=== PATIENT | male | born 1930 | race Caucasian/White ===

== ENCOUNTER 2018-01-21 14:00 | Inpatient (IN) | payer BC, OTHER ==
--- NOTE | 2018-01-21 14:22 | PDOC ---
History of Present Illness - General Stated Complaint: SOB Time Seen by Provider: 01/21/18 14:16 History Source: EMS, [facility] Records Exam Limitations: Clinical Condition - History of Present Illness Initial Comments: This is an 87 YOM with h/o traumatic fall down stairs (admitted to [facility] about a month ago and had neck/back surgery, tracheotomy placement 08/2017 now ventilator dependent, and PEG tube placement), recent aspiration PNA, A-fib, CHF , DM, renal failure, TBI, legally blind and deaf; who is BIBA from [facility] in [place] for blood with clots suctioned from his tracheostomy tube yesterday, as well as anemia detected on his lab work today. He was supposed to have been transported to [facility] for chcf management, but is stopping here at [facility] because of the anemia. Per conversation with attending Dr. Yadiel Gallegos at [facility], yesterday the patient was noted to have bloody secretions suctioned from tracheostomy site , so CBD was checked. His Hct was 24 yesterday, which was down ~10 points from his prior values. They re-checked it again today and Hct was 21. [facility] checked his urine and there was a small amount of blood in it (not enough to explain the Hct drop). Their primary concern has been for GI bleed and FOBT was ordered but had not resulted at the time the patient was sent here. Received his noon medications and simethicone and a portion of her noon PEG tube feeding (had to be stopped early for transport). Past History - Past Medical History Allergies/Adverse Reactions: Allergies Allergy/AdvReac Type Severity Reaction Status Date / Time No Known Allergies Allergy Verified 01/21/18 14:27 Home Medications: Ambulatory Orders Acetaminophen [Tylenol] 650 mg PO Q6H PRN 01/21/18 Aspirin Coated [Ecotrin -] 325 mg GT DAILY 01/21/18 Bacitracin - [Bacitracin Topical Ointment -] 1 applic TP TID 01/21/18 Baclofen 10 mg GT Q8H 01/21/18 Balsam Zabrina/[place] Oil [Venelex Ointment] 1 applic TP BID 01/21/18 Docusate Sodium [Colace -] 100 mg GT ASDIR 01/21/18 Ferrous Sulfate [Feosol] 300 mg GT DAILY 01/21/18 Furosemide [Lasix -] 40 mg GT DAILY 01/21/18 Glycopyrrolate/Formoterol Fum [Bevespi Aerosphere Inhaler] 0 gm IH BID 01/21/18 Heparin - 5,000 unit SQ BID 01/21/18 Hypromellose 0.5% Opth Soln [Artificial Tears] 2 drop OU BID 01/21/18 Insulin Glargine,Hum.rec.anlog [Lantus Solostar PEN (NF)] 9 units SQ HS Insulin Lispro [Humalog] 0 unit SQ Q6H 01/21/18 L.acidoph,Paracasei, B.lactis [Probiotic] 1 each GT DAILY 01/21/18 Lanolin/Mineral Oil [Eucerin Original Lotion] 1 applic TP Q6H 01/21/18 Levothyroxine Sodium [Synthroid] 37.5 mcg GT 01/21/18 Nut.tx.gluc.intoler,Lac-Fr,Soy [Glucerna 1.5 Bob] 237 ml GT Q6H 01/21/18 Oxybutynin Chloride 5 mg GT BID 01/21/18 Ranitidine [Zantac -] 150 mg GT DAILY 01/21/18 Sertraline HCl [Zoloft] 25 mg GT DAILY 01/21/18 Silver Sulfadiazine 1% Top Cr [Silvadene -] 1 applic TP DAILY 01/21/18 Simethicone 40 mg GT Q6H 01/21/18 Simvastatin 20 mg GT DAILY 01/21/18 Tamsulosin HCl 0.4 mg GT DAILY 01/21/18 Zinc Oxide 1 applic TP BID 01/21/18 Review of Systems - Review of Systems Able to Perform ROS?: No ([facility], deaf) *Physical Exam - Physical Exam General Appearance: Yes: Other (nonverbal, minimally interavtive, [facility] elderly male who is chronically ill-appearing) HEENT: positive: Hearing Grossly Normal. negative: Scleral Icterus (R), Scleral Icterus (L), Nasal Congestion Neck: positive: Trachea midline, Other (tracheostomy tube in place without e/o active bleeding). negative: Rigid Respiratory/Chest: positive: Respiratory Distress (intermittent mild respiratory distress), Accessory Muscle Use, Crackles. negative: Rhonchi, Stridor, Wheezing Cardiovascular: positive: Edema (2+ sacral), Bradycardia. negative: Murmur Gastrointestinal/Abdominal: positive: Soft, Other (PEG tube in place) Musculoskeletal: positive: Other (muscle atrophy BLE, ). negative: Decreased Range of Motion, Vertebral Tenderness Extremity: positive: Pelvis Stable, Swelling (sacral edema), Other (bilateral distal lower extremities in anti pressure ulcer boots, bilateral hand contractures). negative: Coldness, Cyanosis Integumentary: positive: Normal Color, Dry, Warm. negative: Erythema, Rash, Bruising Heart Score/ECG Review #1 Sinus bradycardia, rate of 54, normal axis and intervals, poor R wave progression. ED Treatment Course - LABORATORY CBC & Chemistry Diagram: 01/21/18 15:00 01/21/18 15:00 Medical Decision Making - Medical Decision Making 87 YOM with complex h/o traumatic fall down stairs, neck and back surgery, tracheostomy placement, p/w anemia and blood suctioned from trach. Initial Vital Signs Resp 15 01/21/18 14:15 CXR: Pulmonary vascular congestion c/w CHF. EKG: Sinus bradycardia, rate of 54, normal axis and intervals, poor R wave progression. Laboratory Tests 01/21/18 01/21/18 01/21/18 14:40 15:00 15:00 WBC 4.8 RBC 2.98 L Hgb 7.6 L Hct 24.0 L MCV 80.5 MCH 25.3 L MCHC 31.4 L RDW 21.2 H Plt Count 156 MPV 9.6 Neutrophils % 67.2 Lymphocytes % 25.3 Monocytes % 6.4 Eosinophils % 0.8 Basophils % 0.3 PT with INR 12.40 INR 1.10 PTT (Actin FS) 32.3 Sodium Potassium Chloride Carbon Dioxide Anion Gap BUN Creatinine Creat Clearance w eGFR POC Glucometer Random Glucose Calcium Total Bilirubin AST ALT Alkaline Phosphatase Creatine Kinase Troponin I Total Protein Albumin Stool Occult Blood Negative Blood Type Antibody Screen Crossmatch 01/21/18 01/21/18 01/21/18 15:00 15:00 15:46 WBC RBC Hgb Hct MCV MCH MCHC RDW Plt Count MPV Neutrophils % Lymphocytes % Monocytes % Eosinophils % Basophils % PT with INR INR PTT (Actin FS) Sodium 140 Potassium 4.0 Chloride 102 Carbon Dioxide 33 H Anion Gap 5 L BUN 79 H Creatinine 1.7 H Creat Clearance w eGFR 38.50 POC Glucometer [phone] Random Glucose 115 H Calcium 7.7 L Total Bilirubin 0.4 AST 29 ALT 35 Alkaline Phosphatase 99 Creatine Kinase 59 Troponin I < 0.02 Total Protein 6.3 L Albumin 2.1 L Stool Occult Blood Blood Type O POSITIVE Antibody Screen Negative Crossmatch See Detail 01/21/18 16:39 WBC RBC Hgb Hct MCV MCH MCHC RDW Plt Count MPV Neutrophils % Lymphocytes % Monocytes % Eosinophils % Basophils % PT with INR INR PTT (Actin FS) Sodium Potassium Chloride Carbon Dioxide Anion Gap BUN Creatinine Creat Clearance w eGFR POC Glucometer Random Glucose Calcium Total Bilirubin AST ALT Alkaline Phosphatase Creatine Kinase Troponin I Total Protein Albumin Stool Occult Blood Blood Type O POSITIVE Antibody Screen Crossmatch Vital Signs Temperature 98.6 F 01/21/18 17:28 Pulse Rate 60 01/21/18 17:28 Respiratory Rate 19 01/21/18 17:28 Blood Pressure 144/76 01/21/18 17:28 O2 Sat by Pulse Oximetry (%) 100 01/21/18 17:28 01/21/18 17:[address] Harper who accepts patient for ICU placement. Dr. Harper requests CT soft tissue neck and chest (no contrast as patient's Cr is 1.7). Dr. Braun spoke with Gladys Araiza; patient admitted to Dr. Parker for placement in ICU. Spoke with Dr. Vuong who will see the patient tomorrow in the ICU. *DC/Admit/Observation/Transfer Diagnosis at time of Disposition: Hemoptysis - Discharge Dispostion Condition at time of disposition: Guarded Decision to Admit order: Yes - Referrals - Patient Instructions - Post Discharge Activity
[2018-01-21 15:24] LABS: INR 1.1 (0.82-1.09); PROTHROMBIN TIME (PATIENT) 12.4 SEC (9.7-13.0)
[2018-01-21 15:27] LABS: ACTIVATED PTT 32.3 SECONDS (26.9-34.4)
[2018-01-21 15:51] LABS: ALBUMIN 2.1 g/dl (3.4-5.0); ANION GAP 5 (8-16); BILIRUBIN,TOTAL 0.4 mg/dL (0.2-1.0); BLOOD UREA NITROGEN 79 mg/dL (7-18); CALCIUM 7.7 mg/dL (8.5-10.1); CHLORIDE 102 mmol/L (98-107); CO2 33 mmol/L (21-32); CREATININE 1.7 mg/dL (0.7-1.3); GLUCOSE,RANDOM 115 mg/dL (74-106); SGOT/AST 29 U/L (15-37); SGPT/ALT 35 U/L (12-78); SODIUM 140 mmol/L (136-145); TOT PROT 6.3 g/dl (6.4-8.2)
[2018-01-21 15:53] LABS: ALK PHOS 99 U/L (45-117)
[2018-01-21 16:01] LABS: BASO % 0.3 % (0-2.0); EOS % 0.8 % (0-4.5); HEMOGLOBIN 7.6 GM/dL (11.7-16.9); LYMPH % 25.3 % (8-40); MCH 25.3 pg (25.7-33.7); MCHC 31.4 g/dl (32.0-35.9); MEAN CELL VOLUME 80.5 fl (80-96); MEAN PLT VOLUME 9.6 fl (7.5-11.1); MONO % 6.4 % (3.8-10.2); NEUT % 67.2 % (42.8-82.8); PLATELET COUNT 156 K/MM3 (134-434); RBC 2.98 M/mm3 (4.00-5.60); RDW 21.2 % (11.9-15.9); WHITE BLOOD COUNT 4.8 K/mm3 (4.0-10.0)
--- NOTE | 2018-01-21 16:57 | PDOC ---
Attending Attestation - Resident Resident Name: Zoila Rowe - ED Attending Attestation I have performed the following: I have examined & evaluated the patient, The case was reviewed & discussed with the resident, I agree w/resident's findings & plan, Exceptions are as noted - HPI HPI: 01/21/18 16:52 The patient is a 87 year old male, legally blind and deaf, with a significant past medical history of AFib, recent fall last year with neck and back fractures , Tracheostomy tube placement (with ventilator dependence), who presents to the emergency department BIBA from [facility] for hemoptysis and anemia. Pt's daughter states that over the past few days, when the trach has been suctioned, clots of blood have been evacuated. They have not visualized any significant blood coming directly from the trach. - Physicial Exam PE: 01/21/18 16:57 "GENERAL: awake, nonverbal HEAD: No signs of trauma EYES: PERRLA, EOMI, sclera anicteric, conjunctiva clear ENT: Auricles normal inspection, hearing grossly normal, nares patent, oropharynx clear without exudates. Moist mucosa NECK: trach in place, no evidence of bleed LUNGS: Breath sounds equal, clear to auscultation bilaterally. No wheezes, and no crackles HEART: Regular rate and rhythm, normal S1 and S2, no murmurs, rubs or gallops ABDOMEN: Soft, nontender, normoactive bowel sounds. No guarding, no rebound. No masses EXTREMITIES: Normal range of motion, no edema. No clubbing or cyanosis. No cords, erythema, or tenderness NEUROLOGICAL: Cranial nerves II through XII intact. SKIN: Warm, Dry, normal turgor, no rashes or lesions noted. " - Medical Decision Making 01/21/18 16:59 87 M with hemoptysis and anemia. Will need to evaluate for tracheoinnominate fistula. Possible pulmonary edema as pt has h/o CHF. Will also r/o infectious process. - Labs - CXR, CTA if indicated - ENT consult - Transfuse PRN - Admit ICU
--- NOTE | 2018-01-21 17:39 | PN ---
Teaching Attending Note ATTENDING PHYSICIAN STATEMENT I saw and evaluated the patient. I reviewed the resident's note and discussed the case with the resident. I agree with the resident's findings and plan as documented. SUBJECTIVE: Pt seen and examined in the ER. 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 Reports filled cannister yesterday with clots. Pt unable to provide further history at this time, daughter at bedside. CXR suggestive of CHF. Trach placed in Aug at [facility] , no reported complications since placement. Was at [facility] for weaning but ultimately unweanable and was being transferred to SNF. OBJECTIVE: Last Vital Signs Temp Pulse Resp BP Pulse Ox 98.6 F 60 19 144/76 100 01/21/18 17:28 01/21/18 17:28 01/21/18 17:28 01/21/18 17:28 01/21/18 17:28 Intake & Output 01/18/18 01/19/18 01/20/18 01/21/18 23:59 23:59 23:59 23:59 Weight 81.647 kg Gen: trached, poorly responsive Heart: RRR Lung: scattered rhonchi Abd: soft, nontender Ext: UE edema CBC, BMP 01/21/18 15:00 01/21/18 15:00 INR, PTT INR 1.10 (0.82-1.09) 01/21/18 15:00 ASSESSMENT AND PLAN: Chronic Respiratory Failure Hemoptysis Acute Blood Loss Anemia Acute Kidney Injury Atrial Fibrillation DM CHF h/o Traumatic Brain Injury - tracheal suctioned multiple times without heme, trach site appears clean - monitor/quantify hemoptysis - monitor H/H - transfuse as needed - CT chest/neck to further investigate source of bleed - echocardiogram - will likely need lasix - monitor urine output, creatinine - O2 to keep SpO2 >90% - continue volume assist control - DVT/GI prophylaxis - monitor in ICU overnight DM, CKD, CHF, atrial fibrillation, traumatic brain injur
--- NOTE | 2018-01-21 18:24 | HP ---
Admitting History and Physical - Admission History of Present Illness: HPI: This is an 87 year old male with pmhx of traumatic fall down stairs 08/[address] [facility], had neck/back surgery there, with hospital complications of a fib and acute anemia blood loss, aspiration pna unable to wean pt is s/p tach placement in 08/2017 and vent dependent with no plans to move forward at this time for 2nd part of back surgery. Mr. Corcoran has pmhx of RUE DVT, aspiration pna, A fib, CHF, DM II, TBI, legally blind and deaf and was brought to the ED from [facility] in [facility] for blood clots from tracheostomy site and suction. Additionally, urine was noted to be dark per daughter at bedside and he was noted to be anemic. ED - Stool occult negative - Hct down from 24 to 21, ~ 10 points lower than baseline per Dr. 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) Cardiovascular: Yes: AFIB, CHF Pulmonary: Yes: Other (s/p Tach, vent dependent) Heme/Onc: Yes: Other (RUE DVT) Endocrine: Yes: Diabetes Mellitus - Smoking History Smoking history: Unknown if ever smoked Have you smoked in the past 12 months: No - Alcohol/Substance Use Hx Alcohol Use: No Home Medications - Allergies Allergies/Adverse Reactions: Allergies Allergy/AdvReac Type Severity Reaction Status Date / Time No Known Allergies Allergy Verified 01/21/18 14:27 - Home Medications Home Medications: Ambulatory Orders Acetaminophen [Tylenol] 650 mg PO Q6H PRN 01/21/18 Aspirin Coated [Ecotrin -] 325 mg GT DAILY 01/21/18 Bacitracin - [Bacitracin Topical Ointment -] 1 applic TP TID 01/21/18 Baclofen 10 mg GT Q8H 01/21/18 Balsam Zabrina/[place] Oil [Venelex Ointment] 1 applic TP BID 01/21/18 Docusate Sodium [Colace -] 100 mg GT ASDIR 01/21/18 Ferrous Sulfate [Feosol] 300 mg GT DAILY 01/21/18 Furosemide [Lasix -] 40 mg GT DAILY 01/21/18 Glycopyrrolate/Formoterol Fum [Bevespi Aerosphere Inhaler] 0 gm IH BID 01/21/18 Heparin - 5,000 unit SQ BID 01/21/18 Hypromellose 0.5% Opth Soln [Artificial Tears] 2 drop OU BID 01/21/18 Insulin Glargine,Hum.rec.anlog [Lantus Solostar PEN (NF)] 9 units SQ HS Insulin Lispro [Humalog] 0 unit SQ Q6H 01/21/18 L.acidoph,Paracasei, B.lactis [Probiotic] 1 each GT DAILY 01/21/18 Lanolin/Mineral Oil [Eucerin Original Lotion] 1 applic TP Q6H 01/21/18 Levothyroxine Sodium [Synthroid] 37.5 mcg GT BID 01/21/18 Nut.tx.gluc.intoler,Lac-Fr,Soy [Glucerna 1.5 Bob] 237 ml GT Q6H 01/21/18 Oxybutynin Chloride 5 mg GT BID 01/21/18 Ranitidine [Zantac -] 150 mg GT DAILY 01/21/18 Sertraline HCl [Zoloft] 25 mg GT DAILY 01/21/18 Silver Sulfadiazine 1% Top Cr [Silvadene -] 1 applic TP DAILY 01/21/18 Simethicone 40 mg GT Q6H 01/21/18 Simvastatin 20 mg GT DAILY 01/21/18 Tamsulosin HCl 0.4 mg GT DAILY 01/21/18 Zinc Oxide 1 applic TP BID 01/21/18 Review of Systems Unable to obtain ROS, reason: SEE HPI Physical Examination Vital Signs: Vital Signs Temperature 98.6 F 01/21/18 17:28 Pulse Rate 60 01/21/18 17:28 Respiratory Rate 19 01/21/18 17:28 Blood Pressure 144/76 01/21/18 17:28 O2 Sat by Pulse Oximetry (%) 100 01/21/18 17:28 Constitutional: Yes: Other Eyes: Yes: Conjunctiva Clear HENT: Yes: Other (no bleeding at trach site) Neck: Yes: Other (trach) Cardiovascular: Yes: Bradycardia, S1, S2 Respiratory: Yes: Regular, Diminished, Mechanically Ventilated (with trach), Other Gastrointestinal: Yes: Normal Bowel Sounds, Soft, Other (peg tube) Renal/: Yes: Childs Present Edema: No Edema: RUE: 3+ Neurological: Yes: Pre-Existing Deficit, Other (withdraws to pain/tactile stimuli) Labs: CBC, BMP 01/21/18 15:00 01/21/18 15:00 Imaging - Results X-ray: Report Reviewed Problem List - Problems (1) CHF (congestive heart failure) Code(s): I50.9 - HEART FAILURE, UNSPECIFIED (2) A-fib Code(s): I48.91 - UNSPECIFIED ATRIAL FIBRILLATION (3) TBI (traumatic brain injury) Code(s): S06.9X9A - UNSP INTRACRANIAL INJURY W LOC OF UNSP DURATION, INIT (4) Tracheostomy dependent Code(s): Z93.0 - TRACHEOSTOMY STATUS (5) Childs catheter in place Code(s): Z92.89 - PERSONAL HISTORY OF OTHER MEDICAL TREATMENT (6) Diabetes Code(s): E11.9 - TYPE 2 DIABETES MELLITUS WITHOUT COMPLICATIONS (7) S/P percutaneous endoscopic gastrostomy (PEG) tube placement Code(s): Z93.1 - GASTROSTOMY STATUS (8) Hemoptysis Code(s): R04.2 - HEMOPTYSIS (9) Chronic respiratory failure Code(s): J96.10 - CHRONIC RESPIRATORY FAILURE, UNSP W HYPOXIA OR HYPERCAPNIA (10) Hypothyroid Code(s): E03.9 - HYPOTHYROIDISM, UNSPECIFIED Assessment/Plan Assessment: 87 year old male admitted with 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 Plan: 1. Acute anemia blood loss - Transfuse 1uprbc, 2ordered in ED, if receives 2nd unit give additional 20mg IV lasix - Monitor resp status, CXR w chf, give lasix after 1st unit 2. Hemoptysis - D/w ENT site looks intact and clean, no overt bleeding issues, bleeding thought to be from ? pulmonary source - Monitor site for additional bloody suction content - Check CT chest 3. Chronic Resp failure - Spo2 goal >92% - Pulm/CCC seeing pt, consult appreciated - ICU monitoring overnight 4. KATERIN on CKD - Hold fluids for now - Give x1 dose 40mg lasix after blood transfusion - Trend BMP 5. Acute CHF - Check ECHO, BNP - Dose lasix daily per renal function, baseline unknown, usual daily dose 40mg PO - On no bb 6. Afib, rate controlled - On no AC nor rate controlled meds - Monitor tele 7. DM II - ISS, BGM ACHS - Resume home insulin regimen once restart TF 8. s/p TBI - PEG tube feedings per RD, keep NPO for now 9. Hx of RUE DVT - Hold chemical ac until bleeding resolved, scds 10. Hypothyroid - Cont synthroid Visit type - Emergency Visit Emergency Visit: Yes Care time: The patient presented to the Emergency Department on the above date and was hospitalized for further evaluation of their emergent condition. - New Patient This patient is new to me today: Yes Date on this admission: 01/21/18 - Critical Care Critical Care patient: Yes Total Critical Care Time (in minutes): 35 Critical Care Statement: The care of this patient involved high complexity decision making to prevent further life threatening deterioration of the patient 's condition and/or to evaluate & treat vital organ system(s) failure or risk of failure. Hospitalist Screening - Colonoscopy Questionnaire Colonoscopy Questionnaire: Colonoscopy Questionnaire - Patient: 50 - 75 years old and never had a screening colonoscopy: Unknown History of colon or rectal polyps, or CA: Unknown History of IBD, Crohn's disease or UC: Unknown History of abdominal radiation therapy as a child: Unknown - Relative: 1 with colon or rectal CA, or polyps at age 60 or younger: Unknown Colon or rectal CA diagnosed at age 45 or younger: Unknown Multiple relatives with colon or rectal CA: Unknown - Outcome: Screening Result: Negative Screen
[2018-01-21] MEDS ORDERED: FUROSEMIDE 40 MG/4 ML INJECTABLE VIAL IVPUSH ONE (19:15)
[2018-01-21 19:26] LABS: URINE APPEARANCE CLOUDY; URINE BILIRUBIN NEGATIVE (<2.0 mg/dL); URINE BLOOD 1+ (NEGATIVE); URINE COLOR YELLOW; URINE GLUCOSE (UA) NEGATIVE (NEGATIVE); URINE KETONE NEGATIVE (NEGATIVE); URINE NITRITE NEGATIVE (NEGATIVE); URINE UROBILINOGEN NEGATIVE mg/dL (0.2-1.0)
[2018-01-21] MEDS ORDERED: FUROSEMIDE 40 MG/4 ML INJECTABLE VIAL ONE (19:27)
[2018-01-21] MEDS ORDERED: BACLOFEN 10 MG TABLET (FP) ONE (19:27)
[2018-01-21 19:39] LABS: URINE LEUK ESTERASE 3+ (NEGATIVE); URINE PROTEIN 3+ (NEGATIVE)
[2018-01-21] MEDS: BACLOFEN 10 MG TABLET (FP) GT SCH (19:40)
[2018-01-21 19:43] LABS: TRIPLE PHOSPHATE CRYSTAL MANY /hpf (NONE SEEN)
--- NOTE | 2018-01-21 19:45 | CONSULT ---
Consultation: ICU Consult HPI: 87yo M with 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 He was brought into ER for hemoptysis and anemia. Hx was taken from chart. While the rehab center was suctioning his trach site, they noted bright red clots. Daughter reports the cannister was filled with clots. At that time noted to be anemic. No other sources of bleeding besides dark urine In the ER, the patient was stable, maintaining saturations. FOBT neg. UA shows 1 + blood w/ some RBC. Dr Harper attempted to suction but did not see blood. CXR shows bilateral congestion. CT scan ordered to r/o tracheo-innominate fistula. PMHx: Traumatic fall down stairs Tracheotomy placement 08/2017 PEG tube placement Aspiration PNA A-fib CHF DM Renal failure TBI Legally blind and deaf ROS: Unable to obtain PE: Vital Signs Period Temp Pulse Resp BP Sys/Wills Pulse Ox Last 24 Hr 98.3 F-98.8 F 55-60 14-19 130-154/60-76 95-100 GEN: Eyes closed, contracted, does not appear ill HEENT: PERRLA, periorbital edema, difficult to assess JVD due to positioning CV: S1, S2, regular rhythm w/ ectopic beats LUNG: Difficult to assess, Active Medications Baclofen (Lioresal -) 10 mg GT TID [facility] Last Admin: 01/21/18 19:40 Dose: 10 mg Chlorhexidine Gluconate (Hibiclens For Decolonization -) 1 applic TP HS [facility] Insulin Aspart (Novolog Vial Sliding Scale -) 1 vial SQ ACHS [facility] PRN Reason: Protocol Levothyroxine Sodium (Synthroid -) 25 mcg PEG DAILY@0700 [facility] Levothyroxine Sodium (Synthroid -) 12.5 mcg PEG DAILY@0700 [facility] Mupirocin (Bactroban Ointment (For Decolonization) -) 1 applic NS BID [facility] Stop: 01/26/18 21:59 Oxybutynin Chloride (Ditropan -) 5 mg NGT BID [facility] Pantoprazole Sodium (Protonix Iv) 40 mg IVPUSH DAILY [facility] Sertraline HCl (Zoloft -) 25 mg NR DAILY [facility] Tamsulosin HCl (Flomax -) 0.4 mg NR DAILY [facility] ASSESSMENT/PLAN: 87yo M with 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 He was found to have bright red bloody secretions suctioned from tracheostomy site. # Hemoptysis -- BRB from tracheostomy site. ENT evaluated, states site looks c/d/i. Coags and PLT are wnl. No tracheo-innominate fistula per CT scan. Could be from pulmonary edema from CHF exacerbation. Protonix daily incase of possible GIB # Acute blood loss anemia -- Transfused 1uPRBC. Obtain stat CBC to check if need another unit. Monitor congestion. # Acute CHF Exacerbation -- S/p Lasix 40IV. Will start Lasix 40 IV BID. Echo. Not on beta andrew. Childs. I&O. Daily weights. CXR # S/p Tracheostomy -- Vent dependent. At rehab center, he was determined to be unweanable and will ultimately be transferred to SNF. # Afib -- Rate controlled w/o meds. Tele monitoring # CKD -- Unsure baseline. Monitor tmrw # DM2 -- ISS and BGM achs # Hypothyroidism -- Continue synthroid # FEN/Ppx -- No fluids, NPO, SCD # Dispo -- Continue ICU, monitor bleed. H/H Kenton Garza MD - pGY1 ICU Evening Resident Visit type - Emergency Visit Emergency Visit: Yes ED Registration Date: 01/21/18 Care time: The patient presented to the Emergency Department on the above date and was hospitalized for further evaluation of their emergent condition. - New Patient This patient is new to me today: Yes Date on this admission: 01/21/18 - Critical Care Critical Care patient: Yes Total Critical Care Time (in minutes): 45 Critical Care Statement: The care of this patient involved high complexity decision making to prevent further life threatening deterioration of the patient 's condition and/or to evaluate & treat vital organ system(s) failure or risk of failure.
[2018-01-21] MEDS ORDERED: CHLORHEXIDINE GLUCONATE 4% CLEANSER FOR DECOLONIZATION TP SCH (22:00)
[2018-01-21] MEDS ORDERED: LEVOTHYROXINE NA 88 MCG TABLET (FP) GT SCH (22:00)
[2018-01-21 23:20] LABS: HEMOGLOBIN 8.9 GM/dL (11.7-16.9); MCHC 31.8 g/dl (32.0-35.9); MEAN CELL VOLUME 81.8 fl (80-96); MEAN PLT VOLUME 9.3 fl (7.5-11.1); PLATELET COUNT 158 K/MM3 (134-434); RBC 3.42 M/mm3 (4.00-5.60); RDW 21.4 % (11.9-15.9); WHITE BLOOD COUNT 5.4 K/mm3 (4.0-10.0)
[2018-01-21] MEDS: OXYBUTYNIN CHLORIDE 5 MG TABLET NGT SCH (23:30)
[2018-01-21] MEDS: MUPIROCIN 2% TOPICAL OINTMENT FOR DECOLONIZATION NS SCH (23:30)
[2018-01-21] MEDS: INSULIN SLIDING SCALE (NOVOLOG) 1 VIAL SQ SCH (23:45)
[2018-01-22] MEDS: FUROSEMIDE 40 MG/4 ML INJECTABLE VIAL IVPUSH SCH ×2 (06:24→13:18)
[2018-01-22] MEDS: INSULIN SLIDING SCALE (NOVOLOG) 1 VIAL SQ SCH ×4 (06:26→22:11)
[2018-01-22 06:33] LABS: BASO % 0.5 % (0-2.0); EOS % 0.4 % (0-4.5); HEMATOCRIT 25.4 % (35.4-49); HEMOGLOBIN 8.4 GM/dL (11.7-16.9); LYMPH % 23.4 % (8-40); MCH 26.8 pg (25.7-33.7); MEAN CELL VOLUME 81.3 fl (80-96); MEAN PLT VOLUME 9.7 fl (7.5-11.1); MONO % 7.8 % (3.8-10.2); NEUT % 67.9 % (42.8-82.8); PLATELET COUNT 147 K/MM3 (134-434); RBC 3.12 M/mm3 (4.00-5.60); WHITE BLOOD COUNT 4.6 K/mm3 (4.0-10.0)
[2018-01-22] MEDS ORDERED: LEVOTHYROXINE NA 25 MCG TABLET (FP) PEG SCH ×2 (07:00)
[2018-01-22 07:11] LABS: ANION GAP 5 (8-16); BLOOD UREA NITROGEN 78 mg/dL (7-18); CHLORIDE 104 mmol/L (98-107); CO2 33 mmol/L (21-32); POTASSIUM 3.7 mmol/L (3.5-5.1); SODIUM 142 mmol/L (136-145)
[2018-01-22 07:18] LABS: ALK PHOS 76 U/L (45-117); BILIRUBIN,TOTAL 0.6 mg/dL (0.2-1.0); CALCIUM 7.7 mg/dL (8.5-10.1); CREATININE 1.7 mg/dL (0.7-1.3); GLUCOSE,RANDOM 125 mg/dL (74-106); MAGNESIUM 2.3 mg/dL (1.8-2.4); PHOSPHOROUS 4.8 mg/dL (2.5-4.9); SGOT/AST 23 U/L (15-37); SGPT/ALT 28 U/L (12-78); TOT PROT 6.2 g/dl (6.4-8.2)
--- NOTE | 2018-01-22 07:47 | CON.ENT ---
Consult Consult Specialty:: ENT Reason for Consultation:: Blood in trach secretions - History of Present Illness Chief Complaint: Blood in trach secretions History of Present Illness: As per chart, this is an 87 year old male with pmhx of traumatic fall down stairs 08/2017 was taken to [facility], had neck/back surgery there, with hospital complications of a fib and acute anemia blood loss, aspiration pna unable to wean pt is s/p tach placement in 08/2017 and vent dependent with no plans to move forward at this time for 2nd part of back surgery. Mr. Corcoran has pmhx of RUE DVT, aspiration pna, A fib, CHF, DM II, TBI, legally blind and deaf and was brought to the ED from [facility] in [facility] for blood clots from tracheostomy site and suction. Additionally, urine was noted to be dark per daughter at bedside and he was noted to be anemic. I spoke with his daughter and she has not seen any bleeding from mouth or nose. - History Source History Provided By: Medical Record, Caregiver - Past Medical History [employer]: Yes: Other (TBI) Cardio/Vascular: Yes: AFIB, CHF Pulmonary: Yes: Other (s/p Tach, vent dependent) Endocrine: Yes: Diabetes Mellitus - Alcohol/Substance Use Hx Alcohol Use: No - Smoking History Smoking history: Unknown if ever smoked Have you smoked in the past 12 months: No Home Medications - Allergies Allergies/Adverse Reactions: Allergies Allergy/AdvReac Type Severity Reaction Status Date / Time No Known Allergies Allergy Verified 01/21/18 14:27 - Home Medications Home Medications: Ambulatory Orders Acetaminophen [Tylenol] 650 mg PO Q6H PRN 01/21/18 Aspirin Coated [Ecotrin -] 325 mg GT DAILY 01/21/18 Bacitracin - [Bacitracin Topical Ointment -] 1 applic TP TID 01/21/18 Baclofen 10 mg GT Q8H 01/21/18 Balsam [place]/V[place]y Oil [Venelex Ointment] 1 applic TP BID 01/21/18 Docusate Sodium [Colace -] 100 mg GT ASDIR 01/21/18 Ferrous Sulfate [Feosol] 300 mg GT DAILY 01/21/18 Furosemide [Lasix -] 40 mg GT DAILY 01/21/18 Glycopyrrolate/Formoterol Fum [Bevespi Aerosphere Inhaler] 0 gm IH BID 01/21/18 Heparin - 5,000 unit SQ BID 01/21/18 Hypromellose 0.5% Opth Soln [Artificial Tears] 2 drop OU BID 01/21/18 Insulin Glargine,Hum.rec.anlog [Lantus Solostar PEN (NF)] 9 units SQ HS Insulin Lispro [Humalog] 0 unit SQ Q6H 01/21/18 L.acidoph,Paracasei, B.lactis [Probiotic] 1 each GT DAILY 01/21/18 Lanolin/Mineral Oil [Eucerin Original Lotion] 1 applic TP Q6H 01/21/18 Levothyroxine Sodium [Synthroid] 37.5 mcg GT BID 01/21/18 Nut.tx.gluc.intoler,Lac-Fr,Soy [Glucerna 1.5 Bob] 237 ml GT Q6H 01/21/18 Oxybutynin Chloride 5 mg GT BID 01/21/18 Ranitidine [Zantac -] 150 mg GT DAILY 01/21/18 Sertraline HCl [Zoloft] 25 mg GT DAILY 01/21/18 Silver Sulfadiazine 1% Top Cr [Silvadene -] 1 applic TP DAILY 01/21/18 Simethicone 40 mg GT Q6H 01/21/18 Simvastatin 20 mg GT DAILY 01/21/18 Tamsulosin HCl 0.4 mg GT DAILY 01/21/18 Zinc Oxide 1 applic TP BID 01/21/18 Physical Exam-ENT Vital Signs: Vital Signs Temperature 98.5 F 01/21/18 23:25 Pulse Rate 44 L 01/22/18 04:00 Respiratory Rate 14 01/22/18 06:45 Blood Pressure 129/65 01/22/18 04:00 O2 Sat by Pulse Oximetry (%) 97 01/22/18 01:46 Constitutional: Yes: Other (ON vent via trach, responsive to voice, uncooperative with oral exam partially) Nose: Yes: WNL Nasal Passage: Yes: WNL Oral/Pharynx: Yes: WNL Outer Ear: Yes: WNL Neck: Yes: Other (Trach site without blood or lesion.) Problem List - Problems (1) Hemoptysis Assessment/Plan: Bleeding not apparently from trach site, trachea nor main stem bronchi. Will follow prn Code(s): R04.2 - HEMOPTYSIS Procedure - Procedure and Findings -: Tracheoscopy via trach tube in place to main stem bronchi reveal no lesions, normal colored mucosa, no blood, nor blood clots. Essentially normal exam.
[2018-01-22] MEDS ORDERED: SERTRALINE HCL 25 MG TABLET (FP) NR SCH (10:00)
[2018-01-22] MEDS ORDERED: TAMSULOSIN HCL 0.4 MG CAP.ER.24H (FP) NR SCH (10:00)
[2018-01-22] MEDS ORDERED: PANTOPRAZOLE SODIUM 40 MG VIAL IVPUSH SCH (10:00)
--- NOTE | 2018-01-22 10:00 | PN ---
Physical Exam: SUBJECTIVE: Patient seen and examined in ICU. No acute distress noted, non verbal. OBJECTIVE: Vital Signs Period Temp Pulse Resp BP Sys/Wills Pulse Ox Last 24 Hr 98.3 F-98.8 F 40-97 12-19 128-178/45-77 95-100 PE Neuro: arousable to pain, tactile stimuli Pulm: Tach, MV, scattered rhonchi CV: s1 s2 bradycardia Abd: + peg tube, abd firm : + christopher Ext: warm, no le edema Laboratory Results - last 24 hr 01/21/18 01/21/18 01/22/18 21:54 23:10 05:45 WBC 5.4 4.6 RBC 3.42 L 3.12 L Hgb 8.9 L D 8.4 L Hct 28.0 L D 25.4 L MCV 81.8 81.3 MCH 26.0 26.8 MCHC 31.8 L 33.0 RDW 21.4 H 21.0 H Plt Count 158 147 MPV 9.3 9.7 Neutrophils % 67.9 Lymphocytes % 23.4 Monocytes % 7.8 Eosinophils % 0.4 Basophils % 0.5 PT with INR INR PTT (Actin FS) Sodium Potassium Chloride Carbon Dioxide Anion Gap BUN Creatinine Creat Clearance w eGFR POC Glucometer [phone] Random Glucose Calcium Phosphorus Magnesium Total Bilirubin AST ALT Alkaline Phosphatase Creatine Kinase Troponin I B-Natriuretic Peptide Total Protein Albumin Urine Color Urine Appearance Urine pH Ur Specific [place] Urine Protein Urine Glucose (UA) Urine Ketones Urine Blood Urine Nitrite Urine Bilirubin Urine Urobilinogen Ur Leukocyte Esterase Urine WBC (Auto) Urine RBC (Auto) Triple Phos Crystals Stool Occult Blood Blood Type Antibody Screen Crossmatch 01/22/18 05:45 WBC RBC Hgb Hct MCV MCH MCHC RDW Plt Count MPV Neutrophils % Lymphocytes % Monocytes % Eosinophils % Basophils % PT with INR INR PTT (Actin FS) Sodium 142 Potassium 3.7 Chloride 104 Carbon Dioxide 33 H Anion Gap 5 L BUN 78 H Creatinine 1.7 H Creat Clearance w eGFR 38.50 POC Glucometer Random Glucose 125 H Calcium 7.7 L Phosphorus 4.8 Magnesium 2.3 Total Bilirubin 0.6 D AST 23 D ALT 28 Alkaline Phosphatase 76 D Creatine Kinase Troponin I B-Natriuretic Peptide Total Protein 6.2 L Albumin 2.0 L Urine Color Urine Appearance Urine pH Ur Specific [place] Urine Protein Urine Glucose (UA) Urine Ketones Urine Blood Urine Nitrite Urine Bilirubin Urine Urobilinogen Ur Leukocyte Esterase Urine WBC (Auto) Urine RBC (Auto) Triple Phos Crystals Stool Occult Blood Blood Type Antibody Screen Crossmatch Active Medications Generic Name Dose Route Start Last Admin Trade Name Jose PRN Reason Stop Dose Admin Baclofen 10 mg 01/21/18 19:15 01/21/18 19:40 Lioresal - GT 10 mg TID LILIA Administration Chlorhexidine Gluconate 1 applic 01/21/18 22:00 01/21/18 23:30 Hibiclens For Decolonization - TP 1 applic HS LILIA Administration Furosemide 40 mg 01/22/18 06:00 01/22/18 06:24 Lasix Injection - IVPUSH 40 mg BIDLASIX LILIA Administration Insulin Aspart 1 vial 01/21/18 22:00 01/22/18 06:26 Novolog Vial Sliding Scale - SQ 2 units ACHS LILIA Administration Protocol Levothyroxine Sodium 25 mcg 01/22/18 07:00 01/22/18 06:23 Synthroid - PEG 25 mcg DAILY@0700 LILIA Administration Levothyroxine Sodium 12.5 mcg 01/22/18 07:00 Synthroid - PEG DAILY@0700 LILIA Mupirocin 1 applic 01/21/18 22:00 01/21/18 23:30 Bactroban Ointment (For Decolonization) - NS 01/26/18 21:59 1 applic BID LILIA Administration Oxybutynin Chloride 5 mg 01/21/18 22:00 01/21/18 23:30 Ditropan - NGT 5 mg BID LILIA Administration Pantoprazole Sodium 40 mg 01/22/18 10:00 Protonix Iv IVPUSH DAILY LILIA Sertraline HCl 25 mg 01/22/18 10:00 Zoloft - NR DAILY LILIA Tamsulosin HCl 0.4 mg 01/22/18 10:00 Flomax - NR DAILY LILIA Assessment: 87 year old male admitted with 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 Plan: 1. Acute anemia blood loss - Transfused 1uprbc with appropriate rise 01/21 - Check iron studies 36hr post transfusion 2. Hemoptysis - ENT eval, no acute intervention/trach change needed, site clean, trach wnl - No further hemoptysis noted per suction 3. Bradycardia - Possible d/t autonomic dysfunction - ECHO ordered - TSH pending - D/w Dr. Sorto 4. UTI - Obtain urine cx - Start ceftriaxone (day 1) 5. Chronic Resp failure - Spo2 goal >92% - Maintain vent settings 6. KATERIN on CKD - Cr unchanged - Continue diuresis, monitor renal fxn 7. Acute CHF - ECHO ordered - Lasix 40mg BID - Trend daily weights 8. Afib, rate controlled - Sinus ethel, see above 9. DM II - ISS, BGM ACHS - Resume home insulin regimen once restart TF 10. s/p TBI - PEG tube feedings per RD 11. Hx of RUE DVT - Hold chemical ac until bleeding resolved, scds 12. Hypothyroid - Cont synthroid - TSH pending 13. Hypocalcemia - Corrected 9 14. Urine retention - Flomax, Ditropan Problem List - Problems (1) CHF (congestive heart failure) Code(s): I50.9 - HEART FAILURE, UNSPECIFIED (2) A-fib Code(s): I48.91 - UNSPECIFIED ATRIAL FIBRILLATION (3) TBI (traumatic brain injury) Code(s): S06.9X9A - UNSP INTRACRANIAL INJURY W LOC OF UNSP DURATION, INIT (4) Tracheostomy dependent Code(s): Z93.0 - TRACHEOSTOMY STATUS (5) Christopher catheter in place Code(s): Z92.89 - PERSONAL HISTORY OF OTHER MEDICAL TREATMENT (6) Diabetes Code(s): E11.9 - TYPE 2 DIABETES MELLITUS WITHOUT COMPLICATIONS (7) S/P percutaneous endoscopic gastrostomy (PEG) tube placement Code(s): Z93.1 - GASTROSTOMY STATUS (8) Hemoptysis Code(s): R04.2 - HEMOPTYSIS (9) Chronic respiratory failure Code(s): J96.10 - CHRONIC RESPIRATORY FAILURE, UNSP W HYPOXIA OR HYPERCAPNIA (10) Hypothyroid Code(s): E03.9 - HYPOTHYROIDISM, UNSPECIFIED Visit type - Emergency Visit Emergency Visit: Yes ED Registration Date: 01/21/18 Care time: The patient presented to the Emergency Department on the above date and was hospitalized for further evaluation of their emergent condition. - New Patient This patient is new to me today: No - Critical Care Critical Care patient: Yes Total Critical Care Time (in minutes): 35 Critical Care Statement: The care of this patient involved high complexity decision making to prevent further life threatening deterioration of the patient 's condition and/or to evaluate & treat vital organ system(s) failure or risk of failure.
[2018-01-22] MEDS ORDERED: CEFTRIAXONE 1 GM in DEXTROSE 5%-WATER - 50 ML IVPB SCH (11:00)
[2018-01-22] MEDS ORDERED: PT OWN MED DRAWER 7, Y5N ONE ×2 (11:09→13:13)
[2018-01-22] MEDS ORDERED: cefTRIAXone SODIUM 1 GM VIAL ONE (11:09)
[2018-01-22] MEDS ORDERED: DEXTROSE 5%-WATER - 50 ML IVPB ONE (11:09)
[2018-01-22] MEDS: MUPIROCIN 2% TOPICAL OINTMENT FOR DECOLONIZATION NS SCH (11:12)
[2018-01-22] MEDS: BACLOFEN 10 MG TABLET (FP) GT SCH ×3 (11:12→22:11)
[2018-01-22] MEDS: OXYBUTYNIN CHLORIDE 5 MG TABLET NGT SCH ×2 (11:13→22:11)
--- NOTE | 2018-01-22 11:18 | EKG ---
Test Reason : Blood Pressure : / mmHG Vent. Rate : 054 BPM Atrial Rate : 054 BPM P-R Int : 158 ms QRS Dur : 072 ms QT Int : 480 ms P-R-T Axes : 051 009 024 degrees QTc Int : 455 ms SINUS BRADYCARDIA SEPTAL INFARCT , AGE UNDETERMINED ABNORMAL ECG NO PREVIOUS ECGS AVAILABLE Confirmed by FARRAH BURGESS MD ([id number]) on 01/22/2018 11:18:33 AM Referred By: Confirmed By:FARRAH BURGESS MD
--- NOTE | 2018-01-22 14:08 | PN ---
Teaching Attending Note Name of Resident: Linda Lynn ATTENDING PHYSICIAN STATEMENT I saw and evaluated the patient. I reviewed the resident's note and discussed the case with the resident. I agree with the resident's findings and plan as documented. SUBJECTIVE: Patient seen and examined in the ICU. Poorly responsive. AC Mode of vent. Noted HR in the 40'2 with stable hemodynamics throughout the night. Endoscopic evaluation by ENT did not reveal any bleeding. There has been no bleeding noted since admission CXR: bilateral layered pleural effusions Intake & Output 01/19/18 01/20/18 01/21/18 01/22/18 23:59 23:59 23:59 23:59 Intake Total 350 Output Total 500 Balance 350 -500 Weight 180 lb 160 lb 7.944 oz Last Vital Signs Temp Pulse Resp BP Pulse Ox 98.5 F 48 L 14 123/46 99 01/22/18 10:00 01/22/18 12:00 01/22/18 13:50 01/22/18 12:00 01/22/18 09:00 Active Medications Baclofen (Lioresal -) 10 mg GT TID [facility] Last Admin: 01/22/18 13:19 Dose: 10 mg Chlorhexidine Gluconate (Hibiclens For Decolonization -) 1 applic TP HS [facility] Last Admin: 01/21/18 23:30 Dose: 1 applic Furosemide (Lasix Injection -) 40 mg IVPUSH BIDLASIX [facility] Last Admin: 01/22/18 13:18 Dose: 40 mg Ceftriaxone Sodium 1 gm/ (Dextrose) 50 mls @ 100 mls/hr IVPB DAILY [facility] Last Admin: 01/22/18 11:13 Dose: 100 mls/hr Insulin Aspart (Novolog Vial Sliding Scale -) 1 vial SQ ACHS [facility] PRN Reason: Protocol Last Admin: 01/22/18 13:08 Dose: Not Given Levothyroxine Sodium (Synthroid -) 25 mcg PEG DAILY@0700 [facility] Last Admin: 01/22/18 06:23 Dose: 25 mcg Levothyroxine Sodium (Synthroid -) 12.5 mcg PEG DAILY@0700 [facility] Last Admin: 01/22/18 11:12 Dose: 12.5 mcg Mupirocin (Bactroban Ointment (For Decolonization) -) 1 applic NS BID [facility] Stop: 01/26/18 21:59 Last Admin: 01/22/18 11:12 Dose: 1 applic Oxybutynin Chloride (Ditropan -) 5 mg NGT BID [facility] Last Admin: 01/22/18 11:13 Dose: 5 mg Pantoprazole Sodium (Protonix Iv) 40 mg IVPUSH DAILY [facility] Last Admin: 01/22/18 11:13 Dose: 40 mg Sertraline HCl (Zoloft -) 25 mg NR DAILY [facility] Last Admin: 01/22/18 11:13 Dose: 25 mg Tamsulosin HCl (Flomax -) 0.4 mg NR DAILY [facility] Gen: trached, poorly responsive Heart: RRR Lung: scattered basilar rhonchi Abd: soft, nontender Ext: (+) UE edema Laboratory Results - last 24 hr 01/21/18 01/21/18 01/21/18 14:40 15:00 15:00 WBC 4.8 RBC 2.98 L Hgb 7.6 L Hct 24.0 L MCV 80.5 MCH 25.3 L MCHC 31.4 L RDW 21.2 H Plt Count 156 MPV 9.6 Neutrophils % 67.2 Lymphocytes % 25.3 Monocytes % 6.4 Eosinophils % 0.8 Basophils % 0.3 PT with INR 12.40 INR 1.10 PTT (Actin FS) 32.3 Sodium Potassium Chloride Carbon Dioxide Anion Gap BUN Creatinine Creat Clearance w eGFR POC Glucometer Random Glucose Calcium Phosphorus Magnesium Total Bilirubin AST ALT Alkaline Phosphatase Creatine Kinase Troponin I B-Natriuretic Peptide Total Protein Albumin TSH Urine Color Urine Appearance Urine pH Ur Specific [place] Urine Protein Urine Glucose (UA) Urine Ketones Urine Blood Urine Nitrite Urine Bilirubin Urine Urobilinogen Ur Leukocyte Esterase Urine WBC (Auto) Urine RBC (Auto) Triple Phos Crystals Stool Occult Blood Negative Blood Type Antibody Screen Crossmatch 01/21/18 01/21/18 01/21/18 15:00 15:00 15:00 WBC RBC Hgb Hct MCV MCH MCHC RDW Plt Count MPV Neutrophils % Lymphocytes % Monocytes % Eosinophils % Basophils % PT with INR INR PTT (Actin FS) Sodium 140 Potassium 4.0 Chloride 102 Carbon Dioxide 33 H Anion Gap 5 L BUN 79 H Creatinine 1.7 H Creat Clearance w eGFR 38.50 POC Glucometer Random Glucose 115 H Calcium 7.7 L Phosphorus Magnesium Total Bilirubin 0.4 AST 29 ALT 35 Alkaline Phosphatase 99 Creatine Kinase 59 Troponin I < 0.02 B-Natriuretic Peptide 2587.04 H Total Protein 6.3 L Albumin 2.1 L TSH Urine Color Urine Appearance Urine pH Ur Specific [place] Urine Protein Urine Glucose (UA) Urine Ketones Urine Blood Urine Nitrite Urine Bilirubin Urine Urobilinogen Ur Leukocyte Esterase Urine WBC (Auto) Urine RBC (Auto) Triple Phos Crystals Stool Occult Blood Blood Type O POSITIVE Antibody Screen Negative Crossmatch See Detail 01/21/18 01/21/18 01/21/18 15:46 16:39 19:19 WBC RBC Hgb Hct MCV MCH MCHC RDW Plt Count MPV Neutrophils % Lymphocytes % Monocytes % Eosinophils % Basophils % PT with INR INR PTT (Actin FS) Sodium Potassium Chloride Carbon Dioxide Anion Gap BUN Creatinine Creat Clearance w eGFR POC Glucometer [phone] Random Glucose Calcium Phosphorus Magnesium Total Bilirubin AST ALT Alkaline Phosphatase Creatine Kinase Troponin I B-Natriuretic Peptide Total Protein Albumin TSH Urine Color Yellow Urine Appearance Cloudy Urine pH 9.0 H Ur Specific [place] 1.012 Urine Protein 3+ H Urine Glucose (UA) Negative Urine Ketones Negative Urine Blood 1+ H Urine Nitrite Negative Urine Bilirubin Negative Urine Urobilinogen Negative Ur Leukocyte Esterase 3+ H Urine WBC (Auto) 11 Urine RBC (Auto) 7 Triple Phos Crystals Many Stool Occult Blood Blood Type O POSITIVE Antibody Screen Crossmatch 01/21/18 01/21/18 01/22/18 21:54 23:10 05:45 WBC 5.4 4.6 RBC 3.42 L 3.12 L Hgb 8.9 L D 8.4 L Hct 28.0 L D 25.4 L MCV 81.8 81.3 MCH 26.0 26.8 MCHC 31.8 L 33.0 RDW 21.4 H 21.0 H Plt Count 158 147 MPV 9.3 9.7 Neutrophils % 67.9 Lymphocytes % 23.4 Monocytes % 7.8 Eosinophils % 0.4 Basophils % 0.5 PT with INR INR PTT (Actin FS) Sodium Potassium Chloride Carbon Dioxide Anion Gap BUN Creatinine Creat Clearance w eGFR POC Glucometer 153.15720 Random Glucose Calcium Phosphorus Magnesium Total Bilirubin AST ALT Alkaline Phosphatase Creatine Kinase Troponin I B-Natriuretic Peptide Total Protein Albumin TSH Urine Color Urine Appearance Urine pH Ur Specific [place] Urine Protein Urine Glucose (UA) Urine Ketones Urine Blood Urine Nitrite Urine Bilirubin Urine Urobilinogen Ur Leukocyte Esterase Urine WBC (Auto) Urine RBC (Auto) Triple Phos Crystals Stool Occult Blood Blood Type Antibody Screen Crossmatch 01/22/18 01/22/18 01/22/18 05:45 05:45 12:59 WBC RBC Hgb Hct MCV MCH MCHC RDW Plt Count MPV Neutrophils % Lymphocytes % Monocytes % Eosinophils % Basophils % PT with INR INR PTT (Actin FS) Sodium 142 Potassium 3.7 Chloride 104 Carbon Dioxide 33 H Anion Gap 5 L BUN 78 H Creatinine 1.7 H Creat Clearance w eGFR 38.50 POC Glucometer 82.34328 Random Glucose 125 H Calcium 7.7 L Phosphorus 4.8 Magnesium 2.3 Total Bilirubin 0.6 D AST 23 D ALT 28 Alkaline Phosphatase 76 D Creatine Kinase Troponin I B-Natriuretic Peptide Total Protein 6.2 L Albumin 2.0 L TSH 3.59 Urine Color Urine Appearance Urine pH Ur Specific [place] Urine Protein Urine Glucose (UA) Urine Ketones Urine Blood Urine Nitrite Urine Bilirubin Urine Urobilinogen Ur Leukocyte Esterase Urine WBC (Auto) Urine RBC (Auto) Triple Phos Crystals Stool Occult Blood Blood Type Antibody Screen Crossmatch ASSESSMENT AND PLAN: Chronic Respiratory Failure Hemoptysis Acute Blood Loss Anemia Acute Kidney Injury Atrial Fibrillation DM CHF h/o Traumatic Brain Injury Bradycardia: (?) Autonomic driven - Minimize suctioning until needed - monitor/quantify hemoptysis - monitor H/H - Check TSH - Normal transfusion thresholds - Lasix as tolerated - monitor urine output, creatinine - Current vent settings - Not a candidate for wean - DVT/GI prophylaxis - Low threshold to D/C ABX if cultures are negative - Vent floor monitoring Dr Lr Critical care time spent in reviewing chart, evaluating patient and formulating plan - 36 minutes.
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
[2018-01-22 16:23] LABS: HEMATOCRIT 26.6 % (35.4-49); HEMOGLOBIN 8.8 GM/dL (11.7-16.9); MCH 26.9 pg (25.7-33.7); MCHC 33.2 g/dl (32.0-35.9); MEAN CELL VOLUME 81.1 fl (80-96); MEAN PLT VOLUME 9.5 fl (7.5-11.1); PLATELET COUNT 153 K/MM3 (134-434); RBC 3.29 M/mm3 (4.00-5.60); RDW 21.5 % (11.9-15.9); WHITE BLOOD COUNT 4.7 K/mm3 (4.0-10.0)
[2018-01-22] MEDS ORDERED: CHLORHEXIDINE GLUCONATE 4% CLEANSER FOR DECOLONIZATION TP SCH (22:00)
[2018-01-22] MEDS ORDERED: MUPIROCIN 2% TOPICAL OINTMENT FOR DECOLONIZATION NS SCH (22:00)
[2018-01-23] MEDS ORDERED: FUROSEMIDE 40 MG/4 ML INJECTABLE VIAL IVPUSH SCH (06:00)
[2018-01-23] MEDS: LEVOTHYROXINE NA 25 MCG TABLET (FP) PEG SCH (06:42)
[2018-01-23] MEDS: BACLOFEN 10 MG TABLET (FP) GT SCH ×3 (06:43→21:39)
[2018-01-23] MEDS: INSULIN SLIDING SCALE (NOVOLOG) 1 VIAL SQ SCH ×4 (06:43→21:40)
[2018-01-23] MEDS ORDERED: LEVOTHYROXINE NA 25 MCG TABLET (FP) PEG SCH (07:00)
[2018-01-23 07:17] LABS: MCH 27.1 pg (25.7-33.7); MCHC 33.2 g/dl (32.0-35.9); MEAN CELL VOLUME 81.8 fl (80-96); MEAN PLT VOLUME 9.3 fl (7.5-11.1); PLATELET COUNT 154 K/MM3 (134-434); RDW 21.5 % (11.9-15.9); WHITE BLOOD COUNT 5.9 K/mm3 (4.0-10.0)
[2018-01-23 07:34] LABS: ADD RBC MORPHOLOGY YES
[2018-01-23 07:47] LABS: CHLORIDE 105 mmol/L (98-107); POTASSIUM 3.3 mmol/L (3.5-5.1); SODIUM 144 mmol/L (136-145)
[2018-01-23 07:50] LABS: ALBUMIN 2.2 g/dl (3.4-5.0); ALK PHOS 84 U/L (45-117); ANION GAP 9 (8-16); BILIRUBIN,TOTAL 0.9 mg/dL (0.2-1.0); BLOOD UREA NITROGEN 81 mg/dL (7-18); CALCIUM 7.9 mg/dL (8.5-10.1); CO2 30 mmol/L (21-32); CREATININE 1.8 mg/dL (0.7-1.3); GLUCOSE,RANDOM 172 mg/dL (74-106); MAGNESIUM 2.3 mg/dL (1.8-2.4); PHOSPHOROUS 5.3 mg/dL (2.5-4.9); SGOT/AST 22 U/L (15-37); SGPT/ALT 25 U/L (12-78); TOT PROT 6.6 g/dl (6.4-8.2)
[2018-01-23] MEDS ORDERED: POTASSIUM CHLORIDE ORAL LIQUID 20 MEQ/15 ML PO ONE (08:30)
[2018-01-23 09:54] LABS: ANISOCYTOSIS 2+
[2018-01-23] MEDS ORDERED: cefTRIAXone SODIUM 1 GM VIAL ONE (10:06)
[2018-01-23] MEDS ORDERED: DEXTROSE 5%-WATER - 50 ML IVPB ONE (10:07)
[2018-01-23] MEDS: CEFTRIAXONE 1 GM in DEXTROSE 5%-WATER - 50 ML IVPB SCH (10:09)
[2018-01-23] MEDS: OXYBUTYNIN CHLORIDE 5 MG TABLET NGT SCH ×2 (10:10→21:39)
[2018-01-23] MEDS: SERTRALINE HCL 25 MG TABLET (FP) NR SCH (10:10)
[2018-01-23] MEDS: PANTOPRAZOLE SODIUM 40 MG VIAL IVPUSH SCH (10:22)
--- NOTE | 2018-01-23 10:24 | CON.CARD ---
Consult Consult Specialty:: cardiology Reason for Consultation:: bradycardia - History of Present Illness Chief Complaint: Pt trached; reportedly hard of hearing; does not respond to berbal queries; moves his arms and feet spontaneously History of Present Illness: This is an 87 yr old white man with h/o traumatic fall down stairs (admitted to [facility] about a month ago and had neck/back surgery, tracheotomy placement 2016 now ventilator dependent, and PEG tube placement), recent aspiration PNA, A -fib, CHF, DM, renal failure, TBI, legally blind and deaf; who is BIBA from [facility] in [place] for blood with clots suctioned from his tracheostomy tube yesterday, as well as anemia detected on his lab work today. He was supposed to have been transported to [facility] for peanut sheller management, but is stopping here at [facility] because of the anemia. Per conversation with attending Dr. Yadiel Gallegos at [facility], yesterday the patient was noted to have bloody secretions suctioned from tracheostomy site , so CBC was checked. His Hct was 24 yesterday, which was down ~10 points from his prior values. They re-checked it again today and Hct was 21. [facility] checked his urine and there was a small amount of blood in it (not enough to explain the Hct drop). Their primary concern has been for GI bleed and FOBT was ordered but had not resulted at the time the patient was sent here. Received his noon medications and simethicone and a portion of his noon PEG tube feeding (had to be stopped early for transport). - History Source History Provided By: Medical Record Limitations to Obtaining History: Other - Past Medical History ACCREDITATION MANAGER: Yes: Other (TBI) Cardio/Vascular: Yes: AFIB, CHF, HTN Pulmonary: Yes: Other (s/p Tach, vent dependent) Psych: Yes: Other Endocrine: Yes: Diabetes Mellitus - Past Surgical History Additional Surgical History: tracheostomy - Alcohol/Substance Use Hx Alcohol Use: No - Smoking History Smoking history: Unknown if ever smoked Have you smoked in the past 12 months: No Home Medications - Allergies Allergies/Adverse Reactions: Allergies Allergy/AdvReac Type Severity Reaction Status Date / Time No Known Allergies Allergy Verified 01/21/18 14:27 - Home Medications Home Medications: Ambulatory Orders Acetaminophen [Tylenol] 650 mg PO Q6H PRN 01/21/18 Aspirin Coated [Ecotrin -] 325 mg GT DAILY 01/21/18 Bacitracin - [Bacitracin Topical Ointment -] 1 applic TP TID 01/21/18 Baclofen 10 mg GT Q8H 01/21/18 Balsam [place] Oil [Venelex Ointment] 1 applic TP BID 01/21/18 Docusate Sodium [Colace -] 100 mg GT ASDIR 01/21/18 Ferrous Sulfate [Feosol] 300 mg GT DAILY 01/21/18 Furosemide [Lasix -] 40 mg GT DAILY 01/21/18 Glycopyrrolate/Formoterol Fum [Bevespi Aerosphere Inhaler] 0 gm IH BID 01/21/18 Heparin - 5,000 unit SQ BID 01/21/18 Hypromellose 0.5% Opth Soln [Artificial Tears] 2 drop OU BID 01/21/18 Insulin Glargine,Hum.rec.anlog [Lantus Solostar PEN (NF)] 9 units SQ HS Insulin Lispro [Humalog] 0 unit SQ Q6H 01/21/18 L.acidoph,Paracasei, B.lactis [Probiotic] 1 each GT DAILY 01/21/18 Lanolin/Mineral Oil [Eucerin Original Lotion] 1 applic TP Q6H 01/21/18 Levothyroxine Sodium [Synthroid] 37.5 mcg GT BID 01/21/18 Nut.tx.gluc.intoler,Lac-Fr,Soy [Glucerna 1.5 Bob] 237 ml GT Q6H 01/21/18 Oxybutynin Chloride 5 mg GT BID 01/21/18 Ranitidine [Zantac -] 150 mg GT DAILY 01/21/18 Sertraline HCl [Zoloft] 25 mg GT DAILY 01/21/18 Silver Sulfadiazine 1% Top Cr [Silvadene -] 1 applic TP DAILY 01/21/18 Simethicone 40 mg GT Q6H 01/21/18 Simvastatin 20 mg GT DAILY 01/21/18 Tamsulosin HCl 0.4 mg GT DAILY 01/21/18 Zinc Oxide 1 applic TP BID 01/21/18 Family Disease History - Family Disease History Family History: Denies Review of Systems - Review of Systems Constitutional: reports: Weakness Eyes: reports: Other (legally blind) HENT: reports: Hearing Loss, Other Neck: reports: Decreased ROM, Other (tracheostomy) Cardiovascular: reports: Shortness of Breath Respiratory: reports: SOB Musculoskeletal: reports: Decreased ROM, Muscle Weakness Neurological: reports: Weakness Psychiatric: reports: Other (communication is difficult; daughter says pt would respond to his 's verbal requests, but not for weeks now) - Risk Factors Known Risk Factors: Yes: Age, Gender, Hypertension, Physical Inactivity, Other Vital Signs: Vital Signs Temperature 99.2 F 01/23/18 06:00 Pulse Rate 66 01/23/18 08:14 Respiratory Rate 14 01/23/18 08:14 Blood Pressure 132/56 01/23/18 06:00 O2 Sat by Pulse Oximetry (%) 98 01/23/18 08:14 Constitutional: Yes: Thin, Other (trach; ventilator dependent) Eyes: Yes: Other (legally blind) HENT: Yes: Other Neck: Yes: Decreased ROM Respiratory: Yes: Mechanically Ventilated, SOB Gastrointestinal: Yes: Soft Renal/: No: Anuria Cardiovascular: Yes: Bradycardia JVD: Yes Carotid Bruit: No Heart Sounds: Yes: S1, S2 Murmur: Yes: Systolic Murmur, Grade 2 Musculoskeletal: Yes: Muscle Weakness, Other (moves limbs spontaneiously; weakly ) Extremities: Yes: Cool Edema: No Peripheral Pulses WNL: No Peripheral Pulses: 1+ Left Doralis Pedis, 1+ Right Dorsalis Pedis Neurological: Yes: Weakness Psychiatric: Yes: Other - Other Data Labs, Other Data: CBC, BMP 01/23/18 06:55 01/23/18 06:55 INR, PTT INR 1.10 (0.82-1.09) 01/21/18 15:00 Imaging - Results Chest X-ray: Image Reviewed (extensive CHF changes) Ultrasound: Pending EKG: Image Reviewed (sinus bradycardia) Other: Image Reviewed (telemetry: periods of marked sinus bradycarida to low 40s bpm) Problem List - Problems (1) Acute on chronic diastolic CHF (congestive heart failure) Code(s): I50.33 - ACUTE ON CHRONIC DIASTOLIC (CONGESTIVE) HEART FAILURE (2) Chronic respiratory failure Code(s): J96.10 - CHRONIC RESPIRATORY FAILURE, UNSP W HYPOXIA OR HYPERCAPNIA (3) Diabetes Code(s): E11.9 - TYPE 2 DIABETES MELLITUS WITHOUT COMPLICATIONS (4) Epistaxis Code(s): R04.0 - EPISTAXIS (5) Hemoptysis Code(s): R04.2 - HEMOPTYSIS (6) Hypothyroid Code(s): E03.9 - HYPOTHYROIDISM, UNSPECIFIED (7) S/P percutaneous endoscopic gastrostomy (PEG) tube placement Code(s): Z93.1 - GASTROSTOMY STATUS (8) TBI (traumatic brain injury) Code(s): S06.9X9A - UNSP INTRACRANIAL INJURY W LOC OF UNSP DURATION, INIT (9) Tracheostomy dependent Code(s): Z93.0 - TRACHEOSTOMY STATUS (10) Sinus bradycardia Assessment/Plan: Periods of marked sinus bradycardia, which may be multifactoril, including from effects of brain injury, age-related fibrosis, thyroid dysfunction, CAD, electrolyte imbalance. Hx PAF. F/u TFT, serial TNi, electrolytes. ECHO for LVEF, chamber sizes, wall motion, valve status. Code(s): R00.1 - BRADYCARDIA, UNSPECIFIED (11) PAF (paroxysmal atrial fibrillation) Code(s): I48.0 - PAROXYSMAL ATRIAL FIBRILLATION Assessment/Plan CCU time spent: 75 minutes
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
--- NOTE | 2018-01-23 11:38 | PN ---
Progress Note (short form) - Note Progress Note: PULMONARY
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
[2018-01-23 12:04] LABS: CHOLESTEROL 119 mg/dL (50-200); HDL CHOLESTEROL 46 mg/dL (40-60); TRIGLYCERIDES 97 mg/dL (35-160)
--- NOTE | 2018-01-23 14:06 | PN ---
Progress Note, Physician Chief Complaint: nosebleed History of Present Illness: 87M seen prev by Dr Vuong for possible trach/pulm origin of tracheal bleeding. Had trach for possible neurosurgery after he fell down the stairs and sustained injury. The second stage of his surgery was aborted given his development of atrial fibrillation and instead attempts were made to wean him off the vent ( not yet successfully). Dr. Vuong's evaluation including endoscopy was unremarkable. He has not had further bleeding from his trach. Overnight to this morning he's had some left epistaxis and [facility] called to re- evaluate. Nursing reports that his nose was suctioned by family. Daughter concerned for underlying systemic condition causing coagulopathy along with his recently developed atrial fibrillatoin. He was on ASA 325 but has been stopped. He got 1 u PRBCs and responded well to it. No prior epistaxis unable to obtain ROS - Current Medication List Current Medications: Active Medications Baclofen (Lioresal -) 10 mg GT TID [facility] Last Admin: 01/23/18 06:43 Dose: 10 mg Furosemide (Lasix Injection -) 40 mg IVPUSH DAILY [facility] Ceftriaxone Sodium 1 gm/ (Dextrose) 50 mls @ 100 mls/hr IVPB DAILY [facility] Last Admin: 01/23/18 10:09 Dose: 100 mls/hr Insulin Aspart (Novolog Vial Sliding Scale -) 1 vial SQ ACHS [facility] PRN Reason: Protocol Last Admin: 01/23/18 12:48 Dose: 4 units Levothyroxine Sodium (Synthroid -) 37.5 mcg PEG DAILY@0700 [facility] Last Admin: 01/23/18 06:42 Dose: 37.5 mcg Oxybutynin Chloride (Ditropan -) 5 mg NGT BID [facility] Last Admin: 01/23/18 10:10 Dose: 5 mg Pantoprazole Sodium (Protonix Iv) 40 mg IVPUSH DAILY [facility] Last Admin: 01/23/18 10:22 Dose: 40 mg Sertraline HCl (Zoloft -) 25 mg NR DAILY [facility] Last Admin: 01/23/18 10:10 Dose: 25 mg Tamsulosin HCl (Flomax -) 0.4 mg NR DAILY [facility] - Objective Vital Signs: Vital Signs Temperature 97.7 F 01/23/18 12:00 Pulse Rate 68 01/23/18 12:00 Respiratory Rate 14 01/23/18 12:00 Blood Pressure 139/65 01/23/18 12:00 O2 Sat by Pulse Oximetry (%) 98 01/23/18 11:58 Constitutional: Yes: Other (Laying in bed, ventilator on and functioning. Not responsive to commands. Daughter and at BS.) Eyes: Yes: Other (closed, PERRL grossly) HENT: Yes: Other (Ears: hair, cerumen, limited view TM Nose: Left nare with 2x2 packed in, serosang stained. Right clear. Mouth: Limited by non-coop. Edentulous. Grossly clear. No gross o/p blood seen.) Neck: Yes: Other (Portex 8.5 ID cuffed secure. no blood) Respiratory: Yes: Other (ventilator) Neurological: Yes: Other (CN3-7,11,12 intact.) Labs: CBC, BMP 01/23/18 06:55 01/23/18 06:55 INR, PTT INR 1.10 (0.82-1.09) 01/21/18 15:00 Problem List - Problems (1) Epistaxis Assessment/Plan: 87M with epistaxis from left nose, unclear severity. Not actively bleeding at time of evaluation. PACKED with rhinorocket today. - Gauze removed, clots suctioned anteriorly. Limited evaluation with thick clots. Possible anterior septal abrasion. No anticoag or antiplatelet agents ( apart from ASA 325 now off) - Anterior rhinorocket placed and fully inserted, inflated. Secured to face with tape. No further bleeding. - Repeat CBC as indicated. Consider further workup for possible coagulopathy ( given previous bleeding from ?trach and also in urine (though has UTI)). I do not know whether any systemic factors may be predisposing him to these conditions [ie: afib, coagulopathy, renal insufficiency, etc] and defer to the primary team for further workup. - Gram positive abx coverage while packing in place. - Many medical comorbidities - defer to primary medical team. -Long discussion with and daughter at bedside. Over one hour spent on floor discussing case with primary team, family, and delivering care. -Packing should be removed on Thursday. Please call if he is to be discharged sooner than that. Consider endoscopy in future as indicated. -Thank you for this consult. Recommendations were discussed with the hospitalist on service, and with his daughter and at bedside. Code(s): R04.0 - EPISTAXIS
[2018-01-23 15:16] LABS: BASO % 0.4 % (0-2.0); EOS % 0.3 % (0-4.5); HEMATOCRIT 28.2 % (35.4-49); HEMOGLOBIN 9.1 GM/dL (11.7-16.9); LYMPH % 17.4 % (8-40); MCH 26.4 pg (25.7-33.7); MCHC 32.4 g/dl (32.0-35.9); MEAN CELL VOLUME 81.4 fl (80-96); MEAN PLT VOLUME 9.2 fl (7.5-11.1); MONO % 7.6 % (3.8-10.2); NEUT % 74.3 % (42.8-82.8); PLATELET COUNT 170 K/MM3 (134-434); RBC 3.46 M/mm3 (4.00-5.60); WHITE BLOOD COUNT 5.7 K/mm3 (4.0-10.0)
[2018-01-23 16:15] LABS: URINE APPEARANCE CLOUDY; URINE BILIRUBIN NEGATIVE (<2.0 mg/dL); URINE BLOOD 3+ (NEGATIVE); URINE COLOR YELLOW; URINE GLUCOSE (UA) NEGATIVE (NEGATIVE); URINE KETONE NEGATIVE (NEGATIVE); URINE NITRITE NEGATIVE (NEGATIVE); URINE UROBILINOGEN NEGATIVE mg/dL (0.2-1.0)
[2018-01-23 16:20] LABS: URINE LEUK ESTERASE 2+ (NEGATIVE); URINE PROTEIN 2+ (NEGATIVE)
[2018-01-23 16:21] LABS: URINE BACTERIA RARE /hpf (NONE SEEN); URINE MUCUS RARE
[2018-01-24] MEDS: FUROSEMIDE 40 MG/4 ML INJECTABLE VIAL IVPUSH SCH ×2 (06:39→14:16)
[2018-01-24] MEDS: INSULIN SLIDING SCALE (NOVOLOG) 1 VIAL SQ SCH ×4 (06:40→22:37)
[2018-01-24] MEDS: LEVOTHYROXINE NA 25 MCG TABLET (FP) PEG SCH (06:40)
[2018-01-24] MEDS: BACLOFEN 10 MG TABLET (FP) GT SCH ×3 (06:40→22:37)
[2018-01-24 07:13] LABS: ANION GAP 6 (8-16); BLOOD UREA NITROGEN 86 mg/dL (7-18); CALCIUM 8.3 mg/dL (8.5-10.1); CHLORIDE 110 mmol/L (98-107); CO2 32 mmol/L (21-32); GLUCOSE,RANDOM 203 mg/dL (74-106); POTASSIUM 3.7 mmol/L (3.5-5.1); SODIUM 148 mmol/L (136-145)
[2018-01-24 07:32] LABS: BASO % 0.3 % (0-2.0); HEMOGLOBIN 8.7 GM/dL (11.7-16.9); LYMPH % 21.2 % (8-40); MCH 26.6 pg (25.7-33.7); MCHC 32.3 g/dl (32.0-35.9); MEAN CELL VOLUME 82.3 fl (80-96); MEAN PLT VOLUME 9.4 fl (7.5-11.1); MONO % 8.6 % (3.8-10.2); NEUT % 68.9 % (42.8-82.8); PLATELET COUNT 175 K/MM3 (134-434); RBC 3.28 M/mm3 (4.00-5.60); RDW 22.1 % (11.9-15.9); WHITE BLOOD COUNT 6.4 K/mm3 (4.0-10.0)
[2018-01-24] MEDS ORDERED: cefTRIAXone SODIUM 1 GM VIAL ONE (08:44)
[2018-01-24] MEDS ORDERED: DEXTROSE 5%-WATER - 50 ML IVPB ONE (08:44)
--- NOTE | 2018-01-24 08:59 | PN ---
Progress Note, Physician Chief Complaint: Pt remains uncommunicative; pt's daughter is at bedside. History of Present Illness: This is an 87 yr old white man with h/o traumatic fall down stairs (admitted to [facility] about a month ago and had neck/back surgery, tracheotomy placement 2016 now with traumatic brain injury (TBI), ventilator dependent, and PEG tube placement), recent aspiration PNA, A-fib, CHF, DM, renal failure, TBI, legally blind and deaf; who is BIBA from [facility] in [place] for blood with clots suctioned from his tracheostomy tube yesterday , as well as anemia detected on his lab work today. He was supposed to have been transported to [facility] for fdc management, but is stopping here at [facility] because of the anemia. Per conversation with attending Dr. Yadiel Gallegos at [facility], yesterday the patient was noted to have bloody secretions suctioned from tracheostomy site , so CBC was checked. His Hct was 24 yesterday, which was down ~10 points from his prior values. They re-checked it again today and Hct was 21. [facility] checked his urine and there was a small amount of blood in it (not enough to explain the Hct drop). Their primary concern has been for GI bleed and FOBT was ordered but had not resulted at the time the patient was sent here. Received his noon medications and simethicone and a portion of his noon PEG tube feeding (had to be stopped early for transport). - Current Medication List Current Medications: Active Medications Baclofen (Lioresal -) 10 mg GT TID [facility] Last Admin: 01/24/18 06:40 Dose: 10 mg Furosemide (Lasix Injection -) 40 mg IVPUSH BIDLASIX [facility] Last Admin: 01/24/18 06:39 Dose: 40 mg Ceftriaxone Sodium 1 gm/ (Dextrose) 50 mls @ 100 mls/hr IVPB DAILY [facility] Last Admin: 01/23/18 10:09 Dose: 100 mls/hr Insulin Aspart (Novolog Vial Sliding Scale -) 1 vial SQ ACHS [facility] PRN Reason: Protocol Last Admin: 01/24/18 06:40 Dose: 4 units Levothyroxine Sodium (Synthroid -) 37.5 mcg PEG DAILY@0700 [facility] Last Admin: 01/24/18 06:40 Dose: 37.5 mcg Oxybutynin Chloride (Ditropan -) 5 mg NGT BID [facility] Last Admin: 01/23/18 21:39 Dose: 5 mg Pantoprazole Sodium (Protonix Iv) 40 mg IVPUSH DAILY [facility] Last Admin: 01/23/18 10:22 Dose: 40 mg Sertraline HCl (Zoloft -) 25 mg NR DAILY [facility] Last Admin: 01/23/18 10:10 Dose: 25 mg Tamsulosin HCl (Flomax -) 0.4 mg NR DAILY [facility] - Objective Vital Signs: Vital Signs Temperature 98.2 F 01/24/18 06:00 Pulse Rate 63 01/24/18 08:15 Respiratory Rate 14 01/24/18 08:15 Blood Pressure 137/68 01/24/18 06:00 O2 Sat by Pulse Oximetry (%) 98 01/24/18 08:15 Constitutional: Yes: Thin Labs: CBC, BMP 01/24/18 06:45 INR, PTT INR 1.10 (0.82-1.09) 01/21/18 15:00 Problem List - Problems (1) Acute on chronic diastolic CHF (congestive heart failure) Assessment/Plan: ECHO: normal LVEF; mild-moderate MR On furosemide; F/u BUN/Cr, electrolytes, daily weight, Is and Os. Discussed pt again with his daughter, Lena. Code(s): I50.33 - ACUTE ON CHRONIC DIASTOLIC (CONGESTIVE) HEART FAILURE (2) Chronic respiratory failure Code(s): J96.10 - CHRONIC RESPIRATORY FAILURE, UNSP W HYPOXIA OR HYPERCAPNIA (3) Diabetes Code(s): E11.9 - TYPE 2 DIABETES MELLITUS WITHOUT COMPLICATIONS (4) Epistaxis Assessment/Plan: Nasal packing to remain in place until next week, per ENT. F/u Hb (stable today: 9.1-->8.7 over the past 24 hours). Code(s): R04.0 - EPISTAXIS (5) Hemoptysis Code(s): R04.2 - HEMOPTYSIS (6) Hypothyroid Assessment/Plan: TSH wnl; on Synthroid Code(s): E03.9 - HYPOTHYROIDISM, UNSPECIFIED (7) S/P percutaneous endoscopic gastrostomy (PEG) tube placement Code(s): Z93.1 - GASTROSTOMY STATUS (8) TBI (traumatic brain injury) Code(s): S06.9X9A - UNSP INTRACRANIAL INJURY W LOC OF UNSP DURATION, INIT (9) Tracheostomy dependent Assessment/Plan: f/u with veterinary technologist. Code(s): Z93.0 - TRACHEOSTOMY STATUS (10) Sinus bradycardia Assessment/Plan: Improvement in resting HR; now usually in 50-60 bpm range. TMO < 0.02; TSH WNL. F/u history regarding PAF (on no anticoagulation: anemia, hemoptysis-->PRBCs; epistaxsis). Code(s): R00.1 - BRADYCARDIA, UNSPECIFIED (11) PAF (paroxysmal atrial fibrillation) Assessment/Plan: see under "sinus bradycardia" Code(s): I48.0 - PAROXYSMAL ATRIAL FIBRILLATION
--- NOTE | 2018-01-24 09:00 | PN ---
Progress Note, Physician Chief Complaint: Pt remains uncommunicative;' trach/ventilator dependent. Now with nasal bleed History of Present Illness: This is an 87 yr old white man with h/o traumatic fall down stairs (admitted to [facility] about a month ago and had neck/back surgery, tracheotomy placement 2016 now with traumatic brain injury (TBI), ventilator dependent, and PEG tube placement), recent aspiration PNA, A-fib, CHF, DM, renal failure, TBI, legally blind and deaf; who is BIBA from [facility] in [place] for blood with clots suctioned from his tracheostomy tube yesterday , as well as anemia detected on his lab work today. He was supposed to have been transported to [facility] for shelter management, but is stopping here at [facility] because of the anemia. Per conversation with attending Dr. Yadiel Gallegos at [facility], yesterday the patient was noted to have bloody secretions suctioned from tracheostomy site , so CBC was checked. His Hct was 24 yesterday, which was down ~10 points from his prior values. They re-checked it again today and Hct was 21. [facility] checked his urine and there was a small amount of blood in it (not enough to explain the Hct drop). Their primary concern has been for GI bleed and FOBT was ordered but had not resulted at the time the patient was sent here. Received his noon medications and simethicone and a portion of his noon PEG tube feeding (had to be stopped early for transport). - Current Medication List Current Medications: Active Medications Baclofen (Lioresal -) 10 mg GT TID [facility] Last Admin: 01/24/18 06:40 Dose: 10 mg Furosemide (Lasix Injection -) 40 mg IVPUSH BIDLASIX [facility] Last Admin: 01/24/18 06:39 Dose: 40 mg Ceftriaxone Sodium 1 gm/ (Dextrose) 50 mls @ 100 mls/hr IVPB DAILY [facility] Last Admin: 01/23/18 10:09 Dose: 100 mls/hr Insulin Aspart (Novolog Vial Sliding Scale -) 1 vial SQ ACHS [facility] PRN Reason: Protocol Last Admin: 01/24/18 06:40 Dose: 4 units Levothyroxine Sodium (Synthroid -) 37.5 mcg PEG DAILY@0700 [facility] Last Admin: 01/24/18 06:40 Dose: 37.5 mcg Oxybutynin Chloride (Ditropan -) 5 mg NGT BID [facility] Last Admin: 01/23/18 21:39 Dose: 5 mg Pantoprazole Sodium (Protonix Iv) 40 mg IVPUSH DAILY [facility] Last Admin: 01/23/18 10:22 Dose: 40 mg Sertraline HCl (Zoloft -) 25 mg NR DAILY [facility] Last Admin: 01/23/18 10:10 Dose: 25 mg Tamsulosin HCl (Flomax -) 0.4 mg NR DAILY [facility] - Objective Vital Signs: Vital Signs Temperature 98.2 F 01/24/18 06:00 Pulse Rate 63 01/24/18 08:15 Respiratory Rate 14 01/24/18 08:15 Blood Pressure 137/68 01/24/18 06:00 O2 Sat by Pulse Oximetry (%) 98 01/24/18 08:15 Labs: CBC, BMP 01/24/18 06:45 INR, PTT INR 1.10 (0.82-1.09) 01/21/18 15:00 Problem List - Problems (1) Acute on chronic diastolic CHF (congestive heart failure) Assessment/Plan: ECHO: normal LVEF; mild-moderate MR On furosemide; F/u BUN/Cr, electrolytes, daily weight, Is and Os. Discussed pt with his daughter. Code(s): I50.33 - ACUTE ON CHRONIC DIASTOLIC (CONGESTIVE) HEART FAILURE (2) Chronic respiratory failure Code(s): J96.10 - CHRONIC RESPIRATORY FAILURE, UNSP W HYPOXIA OR HYPERCAPNIA (3) Diabetes Code(s): E11.9 - TYPE 2 DIABETES MELLITUS WITHOUT COMPLICATIONS (4) Epistaxis Assessment/Plan: Nasal packing; f/u with ENT. F/u Hb (stable today). Code(s): R04.0 - EPISTAXIS (5) Hemoptysis Code(s): R04.2 - HEMOPTYSIS (6) Hypothyroid Assessment/Plan: TSH wnnl; on Synthroid Code(s): E03.9 - HYPOTHYROIDISM, UNSPECIFIED (7) S/P percutaneous endoscopic gastrostomy (PEG) tube placement Code(s): Z93.1 - GASTROSTOMY STATUS (8) TBI (traumatic brain injury) Code(s): S06.9X9A - UNSP INTRACRANIAL INJURY W LOC OF UNSP DURATION, INIT (9) Tracheostomy dependent Code(s): Z93.0 - TRACHEOSTOMY STATUS (10) Sinus bradycardia Assessment/Plan: Improvement in resting HR; now usually in 50-60 bpm range. TMO < 0.02; TSH WNL. F/u history regarding PAF (on no anticoagulation: anemia, hemoptysis-->PRBCs; epistaxsis). Code(s): R00.1 - BRADYCARDIA, UNSPECIFIED (11) PAF (paroxysmal atrial fibrillation) Assessment/Plan: see under "sinus bradycardia" Code(s): I48.0 - PAROXYSMAL ATRIAL FIBRILLATION
[2018-01-24] MEDS: SERTRALINE HCL 25 MG TABLET (FP) NR SCH (09:39)
[2018-01-24] MEDS: OXYBUTYNIN CHLORIDE 5 MG TABLET NGT SCH ×2 (09:40→22:37)
[2018-01-24] MEDS: PANTOPRAZOLE SODIUM 40 MG VIAL IVPUSH SCH (09:40)
[2018-01-24] MEDS: CEFTRIAXONE 1 GM in DEXTROSE 5%-WATER - 50 ML IVPB SCH (09:52)
--- NOTE | 2018-01-24 09:52 | CONSULT ---
Consult - text type - Consultation Consultation Note: Renal Consult for KATERIN/CKD This is a 87 year old gentleman with PMhx of Traumatic brain injury now vented via trach with PEG, DM, CKD, CHF, Afib who presented with bright red blood from ET suctioning and found have acute anemia and Cr of 2. Pt seen in Tele. Minimally responsive on Vent. Daughter at the bedside and case was discussed with her. On IV Lasix for mangement of pleural effusions. Making urine via christopher. PMhx: as above Allergies: NKDA Family Hx: NC Social hx: No T/A/D ROS: as per HPI Home Medications Medication Instructions Recorded Acetaminophen [Tylenol] 650 mg PO Q6H PRN 01/21/18 Aspirin Coated [Ecotrin -] 325 mg GT DAILY 01/21/18 Bacitracin - [Bacitracin Topical 1 applic TP TID 01/21/18 Ointment -] Baclofen 10 mg GT Q8H 01/21/18 Balsam [place] Oil [Venelex 1 applic TP BID 01/21/18 Ointment] Docusate Sodium [Colace -] 100 mg GT ASDIR 01/21/18 Ferrous Sulfate [Feosol] 300 mg GT DAILY 01/21/18 Furosemide [Lasix -] 40 mg GT DAILY 01/21/18 Glycopyrrolate/Formoterol Fum 0 gm IH BID 01/21/18 [Bevespi Aerosphere Inhaler] Heparin - 5,000 unit SQ BID 01/21/18 Hypromellose 0.5% Opth Soln 2 drop OU BID 01/21/18 [Artificial Tears] Insulin Glargine,Hum.rec.anlog 9 units SQ HS 01/21/18 [Lantus Solostar PEN (NF)] Insulin Lispro [Humalog] 0 unit SQ Q6H 01/21/18 L.acidoph,Paracasei, B.lactis 1 each GT DAILY 01/21/18 [Probiotic] Lanolin/Mineral Oil [Eucerin 1 applic TP Q6H 01/21/18 Original Lotion] Levothyroxine Sodium [Synthroid] 37.5 mcg GT BID 01/21/18 Nut.tx.gluc.intoler,Lac-Fr,Soy 237 ml GT Q6H 01/21/18 [Glucerna 1.5 Bob] Oxybutynin Chloride 5 mg GT BID 01/21/18 Ranitidine [Zantac -] 150 mg GT DAILY 01/21/18 Sertraline HCl [Zoloft] 25 mg GT DAILY 01/21/18 Silver Sulfadiazine 1% Top Cr 1 applic TP DAILY 01/21/18 [Silvadene -] Simethicone 40 mg GT Q6H 01/21/18 Simvastatin 20 mg GT DAILY 01/21/18 Tamsulosin HCl 0.4 mg GT DAILY 01/21/18 Zinc Oxide 1 applic TP BID 01/21/18 Vital Signs Temperature 98.2 F 01/24/18 06:00 Pulse Rate 63 01/24/18 08:15 Respiratory Rate 14 01/24/18 08:15 Blood Pressure 137/68 01/24/18 06:00 O2 Sat by Pulse Oximetry (%) 98 01/24/18 08:15 Intake & Output 01/21/18 01/22/18 01/23/18 01/24/18 23:59 23:59 23:59 23:59 Intake Total 350 170 650 620 Output Total 2000 1600 800 Balance 350 -1830 -950 -180 Weight 81.647 kg 72.8 kg 72.575 kg 71.679 kg NAD on Vent via trach No JVD irregular, no M/R Dec BS throughout the lung cutler soft NT/ND no bladder distension Trace sacral edema no clubbing or cyanosis christopher in place CBC, BMP 01/24/18 06:45 01/24/18 06:45 Laboratory Tests 01/21/18 01/23/18 01/24/18 14:40 15:00 06:45 MCV 82.3 Calcium Urine Protein 2+ H Urine Blood 3+ H Urine Urobilinogen Negative Urine WBC (Auto) 15 Urine RBC (Auto) 140 Stool Occult Blood Negative 01/24/18 06:45 MCV Calcium 8.3 L Urine Protein Urine Blood Urine Urobilinogen Urine WBC (Auto) Urine RBC (Auto) Stool Occult Blood Current Medications Baclofen (Lioresal -) 10 mg GT TID [facility] Last Admin: 01/24/18 06:40 Dose: 10 mg Furosemide (Lasix Injection -) 40 mg IVPUSH BIDLASIX [facility] Last Admin: 01/24/18 06:39 Dose: 40 mg Ceftriaxone Sodium 1 gm/ (Dextrose) 50 mls @ 100 mls/hr IVPB DAILY [facility] Last Admin: 01/23/18 10:09 Dose: 100 mls/hr Insulin Aspart (Novolog Vial Sliding Scale -) 1 vial SQ ACHS [facility] PRN Reason: Protocol Last Admin: 01/24/18 06:40 Dose: 4 units Levothyroxine Sodium (Synthroid -) 37.5 mcg PEG DAILY@0700 [facility] Last Admin: 01/24/18 06:40 Dose: 37.5 mcg Oxybutynin Chloride (Ditropan -) 5 mg NGT BID [facility] Last Admin: 01/23/18 21:39 Dose: 5 mg Pantoprazole Sodium (Protonix Iv) 40 mg IVPUSH DAILY [facility] Last Admin: 01/23/18 10:22 Dose: 40 mg Sertraline HCl (Zoloft -) 25 mg NR DAILY [facility] Last Admin: 01/23/18 10:10 Dose: 25 mg Tamsulosin HCl (Flomax -) 0.4 mg NR DAILY [facility] 87 year old gentleman with PMhx of Traumatic brain injury now vented via trach with PEG, DM, CKD, CHF, Afib who presented with bright red blood from ET suctioning and found have acute anemia and Cr of 2. #KATERIN/CKD #Bleeding from ET tube #B/L Pleural effusions #Acute on Chronic Anemia #Hypernatremia #Proteinuria #Possible UTI Cr was 1.4 as of January 21 based on records in medical chart Rise in Cr may be due to worsening anemia +/- CRS given fluid overload at this time it is necessary to continue IV diuresis given effusions check FeUrea, UPCR if no improvement in renal function in next 48 hours would check imaging studies of the kidney Trend BUN/Cr daily Keep MAP > 65 maintain Christopher for now Trend CBC, transfuse as needed Will add free water bolus to G-tube feeds on Ceftriaxone, follow up cultures no acute indication for LAB SUPPORT TECHNICIAN dose all meds for CrCl less then 20 no PRADIP/ARB, NSAIDS or IV contrast at this time thank you Will follow Frank Ayoub DO
[2018-01-24] MEDS ORDERED: FUROSEMIDE 40 MG/4 ML INJECTABLE VIAL IVPUSH SCH (10:00)
--- NOTE | 2018-01-24 11:52 | CON.ID ---
Consult Consult Specialty:: infectious diseases Reason for Consultation:: complicated uti - History of Present Illness History of Present Illness: 87 year old gentleman with PMhx of Traumatic brain injury now vented via trach with PEG, DM, CKD, CHF, Afib who presented with bright red blood from ET suctioning and found have acute anemia and Cr of 2. Patients daughter is in the room who is giving the history as patient has no capacity to give the history Pe. Minimally responsive on Vent. 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) Cardio/Vascular: Yes: AFIB, CHF, HTN Pulmonary: Yes: Other (s/p Tach, vent dependent) Psych: Yes: Other Endocrine: Yes: Diabetes Mellitus - Past Surgical History Additional Surgical History: tracheostomy - Alcohol/Substance Use Hx Alcohol Use: No - Smoking History Smoking history: Unknown if ever smoked Have you smoked in the past 12 months: No Home Medications - Allergies Allergies/Adverse Reactions: Allergies Allergy/AdvReac Type Severity Reaction Status Date / Time No Known Allergies Allergy Verified 01/21/18 14:27 - Home Medications Home Medications: Ambulatory Orders Acetaminophen [Tylenol] 650 mg PO Q6H PRN 01/21/18 Aspirin Coated [Ecotrin -] 325 mg GT DAILY 01/21/18 Bacitracin - [Bacitracin Topical Ointment -] 1 applic TP TID 01/21/18 Baclofen 10 mg GT Q8H 01/21/18 Balsam [place] Oil [Venelex Ointment] 1 applic TP BID 01/21/18 Docusate Sodium [Colace -] 100 mg GT ASDIR 01/21/18 Ferrous Sulfate [Feosol] 300 mg GT DAILY 01/21/18 Furosemide [Lasix -] 40 mg GT DAILY 01/21/18 Glycopyrrolate/Formoterol Fum [Bevespi Aerosphere Inhaler] 0 gm IH BID 01/21/18 Heparin - 5,000 unit SQ BID 01/21/18 Hypromellose 0.5% Opth Soln [Artificial Tears] 2 drop OU BID 01/21/18 Insulin Glargine,Hum.rec.anlog [Lantus Solostar PEN (NF)] 9 units SQ HS Insulin Lispro [Humalog] 0 unit SQ Q6H 01/21/18 L.acidoph,Paracasei, B.lactis [Probiotic] 1 each GT DAILY 01/21/18 Lanolin/Mineral Oil [Eucerin Original Lotion] 1 applic TP Q6H 01/21/18 Levothyroxine Sodium [Synthroid] 37.5 mcg GT BID 01/21/18 Nut.tx.gluc.intoler,Lac-Fr,Soy [Glucerna 1.5 Bob] 237 ml GT Q6H 01/21/18 Oxybutynin Chloride 5 mg GT BID 01/21/18 Ranitidine [Zantac -] 150 mg GT DAILY 01/21/18 Sertraline HCl [Zoloft] 25 mg GT DAILY 01/21/18 Silver Sulfadiazine 1% Top Cr [Silvadene -] 1 applic TP DAILY 01/21/18 Simethicone 40 mg GT Q6H 01/21/18 Simvastatin 20 mg GT DAILY 01/21/18 Tamsulosin HCl 0.4 mg GT DAILY 01/21/18 Zinc Oxide 1 applic TP BID 01/21/18 Review of Systems Unable to obtain ROS, reason: unable Physical Exam Vital Signs: Vital Signs Temperature 98.2 F 01/24/18 06:00 Pulse Rate 63 01/24/18 08:15 Respiratory Rate 14 01/24/18 11:18 Blood Pressure 137/68 01/24/18 06:00 O2 Sat by Pulse Oximetry (%) 98 01/24/18 11:19 Constitutional: Yes: Other Eyes: Yes: Conjunctiva Clear Neck: Yes: Other Cardiovascular: Yes: Pulse Irregular, S1, S2 Respiratory: Yes: Mechanically Ventilated, Rhonchi, Other (trachestomy in place) Gastrointestinal: Yes: Normal Bowel Sounds, Soft, Other (peg in place) Musculoskeletal: Yes: Other Extremities: Yes: Other Neurological: Yes: Lethargy, Other Labs: CBC, BMP 01/24/18 06:45 01/24/18 06:45 Imaging - Results Chest X-ray: Report Reviewed, Image Reviewed Cat Scan: Report Reviewed, Image Reviewed Assessment/Plan 87yo M with 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 He was found to have bright red bloody secretions suctioned from tracheostomy site.and now found to have esbl uti uti ac blood loos anemia Acute CHF Exacerbation S/p Tracheostomy Afib CKD DM2 Hypothyroidism patient was on ceftriaxone plan will stop ceftriaxone will switch to ertapenam resp support rest continue current mgmt discussed at length with his daughter
--- NOTE | 2018-01-24 12:13 | PN ---
Physical Exam: SUBJECTIVE: Patient seen and examined. T max 100.2, some additional bleeding overnight to nares, now stopped. Pt appears comfortable. Daughter at bedside, questions answered OBJECTIVE: Vital Signs Period Temp Pulse Resp BP Sys/Wills Pulse Ox Last 24 Hr 98.2 F-100.2 F 55-73 14-20 128-137/61-71 98-98 PE Neuro: arousable to pain, tactile stimuli HEENT: L nares rhino rocket Pulm: Tach, MV, bs improved anteriorly less rhonchi CV: s1 s2 rrr Abd: + peg tube, abd soft : + christopher Ext: warm, no le edema UE contractures Laboratory Results - last 24 hr 01/24/18 01/24/18 01/24/18 06:16 06:45 06:45 WBC 6.4 RBC 3.28 L Hgb 8.7 L Hct 27.0 L MCV 82.3 MCH 26.6 MCHC 32.3 RDW 22.1 H Plt Count 175 MPV 9.4 Neutrophils % 68.9 Lymphocytes % 21.2 D Monocytes % 8.6 Eosinophils % 1.0 D Basophils % 0.3 Sodium 148 H Potassium 3.7 Chloride 110 H Carbon Dioxide 32 Anion Gap 6 L BUN 86 H Creatinine 2.0 H POC Glucometer 213 Random Glucose 203 H Calcium 8.3 L Triglycerides Cholesterol Total LDL Cholesterol HDL Cholesterol Urine Color Urine Appearance Urine pH Ur Specific [place] Urine Protein Urine Glucose (UA) Urine Ketones Urine Blood Urine Nitrite Urine Bilirubin Urine Urobilinogen Ur Leukocyte Esterase Urine WBC (Auto) Urine RBC (Auto) Urine Bacteria Urine Mucus Active Medications Generic Name Dose Route Start Last Admin Trade Name Jose PRN Reason Stop Dose Admin Baclofen 10 mg 01/22/18 22:00 01/24/18 06:40 Lioresal - GT 10 mg TID LILIA Administration Furosemide 40 mg 01/24/18 06:00 01/24/18 06:39 Lasix Injection - IVPUSH 40 mg BIDLASIX LILIA Administration Ertapenem 0.5 gm/ Sodium 50 mls @ 50 mls/hr 01/24/18 12:30 Chloride IVPB 01/24/18 13:29 ONCE ONE Protocol Insulin Aspart 1 vial 01/22/18 22:00 01/24/18 11:48 Novolog Vial Sliding Scale - SQ 4 units ACHS LILIA Administration Protocol Levothyroxine Sodium 37.5 mcg 01/23/18 07:00 01/24/18 06:40 Synthroid - PEG 37.5 mcg DAILY@0700 LILIA Administration Oxybutynin Chloride 5 mg 01/22/18 22:00 01/24/18 09:40 Ditropan - NGT 5 mg BID LILIA Administration Pantoprazole Sodium 40 mg 01/23/18 10:00 01/24/18 09:40 Protonix Iv IVPUSH 40 mg DAILY LILIA Administration Sertraline HCl 25 mg 01/23/18 10:00 01/24/18 09:39 Zoloft - NR 25 mg DAILY LILIA Administration Tamsulosin HCl 0.4 mg 01/23/18 10:00 Flomax - NR DAILY LILIA Microbiology 01/22/18 11:00 Urine - Urine Christopher Urine Culture - Final Proteus Mirabilus - Esbl Produ Assessment: 87 year old male admitted with 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 Plan: 1. Epistaxix - Pt was taking ASA 325mg in [place], could be cause of epistaxis - Nasal rocket placed by ENT, through Thursday - Hgb stable 2. Acute anemia blood loss - Transfused 1uprbc with appropriate rise 01/21 - Check iron studies 3. Hemoptysis - ENT eval, no acute intervention/trach change needed, site clean, trach wnl - No further hemoptysis noted per suction 4. Bradycardia - Resolved - Possibly autonomic vs anemia - TSH wnl - ECHO: LVSF 50-55%, mild mr, tr 5. ESBL proteus UTI - Stop ceftriaxone - Start ertapenem renal dose - ID seeing 6. Chronic Resp failure - Spo2 goal >92% - Maintain vent settings 7. KATERIN on CKD - CXR with effusions - Lasix 40mg BID IV - Monitor cr - Urine studies ordered - Nephrology seeing 8. Acute CHF - CXR yesterday unchanged, today imaging - Continue IV diuresis 9. Afib, rate controlled - Of AC, no rate controlled meds 10. DM II - ISS, BGM ACHS 11. s/p TBI - Nepro with 20cc water flushes - Added free water flushes 12. Hx of RUE DVT - Hold chemical ac until bleeding resolved, scds 13. Hypothyroid - Cont synthroid - TSH wnl 14. Urine retention - Flomax, Ditropan - Maintain christopher Problem List - Problems (1) CHF (congestive heart failure) Code(s): I50.9 - HEART FAILURE, UNSPECIFIED (2) A-fib Code(s): I48.91 - UNSPECIFIED ATRIAL FIBRILLATION (3) TBI (traumatic brain injury) Code(s): S06.9X9A - UNSP INTRACRANIAL INJURY W LOC OF UNSP DURATION, INIT (4) Tracheostomy dependent Code(s): Z93.0 - TRACHEOSTOMY STATUS (5) Christopher catheter in place Code(s): Z92.89 - PERSONAL HISTORY OF OTHER MEDICAL TREATMENT (6) Diabetes Code(s): E11.9 - TYPE 2 DIABETES MELLITUS WITHOUT COMPLICATIONS (7) S/P percutaneous endoscopic gastrostomy (PEG) tube placement Code(s): Z93.1 - GASTROSTOMY STATUS (8) Hemoptysis Code(s): R04.2 - HEMOPTYSIS (9) Chronic respiratory failure Code(s): J96.10 - CHRONIC RESPIRATORY FAILURE, UNSP W HYPOXIA OR HYPERCAPNIA (10) Hypothyroid Code(s): E03.9 - HYPOTHYROIDISM, UNSPECIFIED Visit type - Emergency Visit Emergency Visit: Yes ED Registration Date: 01/21/18 Care time: The patient presented to the Emergency Department on the above date and was hospitalized for further evaluation of their emergent condition. - New Patient This patient is new to me today: No - Critical Care Critical Care patient: No
[2018-01-24] MEDS ORDERED: ERTAPENEM SODIUM 0.5 GM in SODIUM CHLORIDE 50 ML IVPB ONE (12:30)
--- NOTE | 2018-01-24 12:40 | PN ---
Progress Note (short form) - Note Progress Note: PULMONARY FAMILY PRESENT VSS/TEMP CURVE DECREASING CHRONICALLY ILL IN APPEARANCE BLOOD SOAKED GUAZE LEFT NARES SCATTERED RHONCHI RSR BS+ CONTRACTED UPPER EXT LABS/MEDS/NOTES REVIEWED CHRONIC RESP FAILURE MVV A/C MODE EPISTAXSIS/HEMOPTYSIS BLOOD LOSS ANEMIA KATERIN AF/DM/CHF TBI CONTINUE SUPPORTIVE CARE SAME VENT SETTINGS FOR NOW TRANSFUSION THRESHOLDS R JAIRON PEREZ
[2018-01-24 14:56] LABS: URINE CREATININE 44.1 mg/dL (20-370)
[2018-01-24] MEDS: TAMSULOSIN HCL 0.4 MG CAP.ER.24H (FP) NR SCH (16:03)
[2018-01-24] MEDS ORDERED: INSULIN (NOVOLOG) ASPART 100 UNITS/ML 10ML VIAL ONE ×3 (16:28→20:50)
[2018-01-24] MEDS ORDERED: PT OWN MED DRAWER 7, Y5N ONE (18:50)
[2018-01-24] MEDS ORDERED: INSULIN (LEVEMIR) 100 UNITS/ML UNITS SQ ONE (20:50)
[2018-01-25] MEDS: FUROSEMIDE 40 MG/4 ML INJECTABLE VIAL IVPUSH SCH ×2 (06:17→14:25)
[2018-01-25] MEDS: LEVOTHYROXINE NA 25 MCG TABLET (FP) PEG SCH (06:17)
[2018-01-25] MEDS: BACLOFEN 10 MG TABLET (FP) GT SCH ×3 (06:17→23:29)
[2018-01-25] MEDS: INSULIN SLIDING SCALE (NOVOLOG) 1 VIAL SQ SCH ×5 (06:17→23:35)
[2018-01-25] MEDS ORDERED: INSULIN (NOVOLOG) ASPART 100 UNITS/ML 10ML VIAL ONE (06:36)
[2018-01-25 07:36] LABS: BASO % 0.3 % (0-2.0); HEMATOCRIT 25.1 % (35.4-49); HEMOGLOBIN 8.1 GM/dL (11.7-16.9); LYMPH % 18.6 % (8-40); MCH 26.7 pg (25.7-33.7); MCHC 32.4 g/dl (32.0-35.9); MEAN CELL VOLUME 82.3 fl (80-96); MEAN PLT VOLUME 9.5 fl (7.5-11.1); NEUT % 73.1 % (42.8-82.8); PLATELET COUNT 163 K/MM3 (134-434); RBC 3.05 M/mm3 (4.00-5.60); RDW 22.4 % (11.9-15.9); WHITE BLOOD COUNT 6.4 K/mm3 (4.0-10.0)
[2018-01-25 07:44] LABS: CHLORIDE 109 mmol/L (98-107); SODIUM 148 mmol/L (136-145)
[2018-01-25 07:55] LABS: ALBUMIN 2.1 g/dl (3.4-5.0); ALK PHOS 94 U/L (45-117); ANION GAP 8 (8-16); BILIRUBIN,TOTAL 0.5 mg/dL (0.2-1.0); BLOOD UREA NITROGEN 85 mg/dL (7-18); CALCIUM 7.8 mg/dL (8.5-10.1); CO2 31 mmol/L (21-32); CREATININE 2.1 mg/dL (0.7-1.3); GLUCOSE,RANDOM 231 mg/dL (74-106); MAGNESIUM 2.3 mg/dL (1.8-2.4); PHOSPHOROUS 4.6 mg/dL (2.5-4.9); SGOT/AST 16 U/L (15-37); SGPT/ALT 20 U/L (12-78); TOT PROT 6.3 g/dl (6.4-8.2)
[2018-01-25] MEDS ORDERED: PT OWN MED DRAWER 7, Y5N ONE (09:09)
[2018-01-25] MEDS: OXYBUTYNIN CHLORIDE 5 MG TABLET NGT SCH ×2 (09:22→23:30)
[2018-01-25] MEDS: SERTRALINE HCL 25 MG TABLET (FP) NR SCH (09:22)
[2018-01-25] MEDS: PANTOPRAZOLE SODIUM 40 MG VIAL IVPUSH SCH (09:22)
[2018-01-25] MEDS: ERTAPENEM SODIUM 0.5 GM in SODIUM CHLORIDE 50 ML IVPB SCH (09:43)
--- NOTE | 2018-01-25 10:27 | PN ---
Progress Note, Physician History of Present Illness: This is an 87 yr old white man with h/o traumatic fall down stairs (admitted to [facility] about a month ago and had neck/back surgery, tracheotomy placement 2016 now with traumatic brain injury (TBI), ventilator dependent, and PEG tube placement), recent aspiration PNA, A-fib, CHF, DM, renal failure, TBI, legally blind and deaf; who is BIBA from [facility] in [place] for blood with clots suctioned from his tracheostomy tube yesterday , as well as anemia detected on his lab work today. He was supposed to have been transported to [facility] for long term care administrator management, but is stopping here at [facility] because of the anemia. Per conversation with attending Dr. Yadiel Gallegos at [facility], yesterday the patient was noted to have bloody secretions suctioned from tracheostomy site , so CBC was checked. His Hct was 24 yesterday, which was down ~10 points from his prior values. They re-checked it again today and Hct was 21. [facility] checked his urine and there was a small amount of blood in it (not enough to explain the Hct drop). Their primary concern has been for GI bleed and FOBT was ordered but had not resulted at the time the patient was sent here. Received his noon medications and simethicone and a portion of his noon PEG tube feeding (had to be stopped early for transport). - Current Medication List Current Medications: Active Medications Baclofen (Lioresal -) 10 mg GT TID [facility] Last Admin: 01/25/18 06:17 Dose: 10 mg Furosemide (Lasix Injection -) 40 mg IVPUSH BIDLASIX [facility] Last Admin: 01/25/18 06:17 Dose: 40 mg Ertapenem 0.5 gm/ Sodium (Chloride) 50 mls @ 100 mls/hr IVPB DAILY LILIA PRN Reason: Protocol Last Admin: 01/25/18 09:43 Dose: 100 mls/hr Insulin Aspart (Novolog Vial Sliding Scale -) 1 vial SQ ACHS LILIA PRN Reason: Protocol Last Admin: 01/25/18 06:17 Dose: 4 units Levothyroxine Sodium (Synthroid -) 37.5 mcg PEG DAILY@0700 [facility] Last Admin: 01/25/18 06:17 Dose: 37.5 mcg Oxybutynin Chloride (Ditropan -) 5 mg NGT BID [facility] Last Admin: 01/25/18 09:22 Dose: 5 mg Pantoprazole Sodium (Protonix Iv) 40 mg IVPUSH DAILY [facility] Last Admin: 01/25/18 09:22 Dose: 40 mg Sertraline HCl (Zoloft -) 25 mg NR DAILY [facility] Last Admin: 01/25/18 09:22 Dose: 25 mg - Objective Vital Signs: Vital Signs Temperature 99.0 F 01/25/18 09:45 Pulse Rate 60 01/25/18 09:45 Respiratory Rate 14 01/25/18 09:45 Blood Pressure 121/56 01/25/18 09:45 O2 Sat by Pulse Oximetry (%) 97 01/25/18 09:51 Eyes: Yes: WNL, Conjunctiva Clear, EOM Intact HENT: Yes: WNL, Atraumatic, Normocephalic Neck: Yes: WNL, Supple, Trachea Midline Cardiovascular: Yes: WNL, Regular Rate and Rhythm Respiratory: Yes: WNL, Regular, CTA Bilaterally Gastrointestinal: Yes: WNL, Normal Bowel Sounds Genitourinary: Yes: WNL Musculoskeletal: Yes: WNL Extremities: Yes: WNL Edema: No Integumentary: Yes: WNL Neurological: Yes: WNL, Alert, Oriented ...Motor Strength: WNL Psychiatric: Yes: WNL Labs: CBC, BMP 01/25/18 06:32 01/25/18 06:32 INR, PTT INR 1.10 (0.82-1.09) 01/21/18 15:00 Assessment/Plan (1) Acute on chronic diastolic CHF (congestive heart failure) Assessment/Plan: ECHO: normal LVEF; mild-moderate MR On furosemide; F/u BUN/Cr, electrolytes, daily weight, Is and Os. Discussed pt again with his daughter, Lena. Code(s): I50.33 - ACUTE ON CHRONIC DIASTOLIC (CONGESTIVE) HEART FAILURE (2) Chronic respiratory failure Code(s): J96.10 - CHRONIC RESPIRATORY FAILURE, UNSP W HYPOXIA OR HYPERCAPNIA (3) Diabetes Code(s): E11.9 - TYPE 2 DIABETES MELLITUS WITHOUT COMPLICATIONS (4) Epistaxis Assessment/Plan: Nasal packing to remain in place until next week, per ENT. F/u Hb (stable today: 9.1-->8.7 over the past 24 hours). Code(s): R04.0 - EPISTAXIS (5) Hemoptysis Code(s): R04.2 - HEMOPTYSIS (6) Hypothyroid Assessment/Plan: TSH wnl; on Synthroid Code(s): E03.9 - HYPOTHYROIDISM, UNSPECIFIED (7) S/P percutaneous endoscopic gastrostomy (PEG) tube placement Code(s): Z93.1 - GASTROSTOMY STATUS (8) TBI (traumatic brain injury) Code(s): S06.9X9A - UNSP INTRACRANIAL INJURY W LOC OF UNSP DURATION, INIT (9) Tracheostomy dependent Assessment/Plan: f/u with manager mall. Code(s): Z93.0 - TRACHEOSTOMY STATUS (10) Sinus bradycardia Assessment/Plan: Improvement in resting HR; now usually in 50-60 bpm range. TMO < 0.02; TSH WNL. F/u history regarding PAF (on no anticoagulation: anemia, hemoptysis-->PRBCs; epistaxsis). Code(s): R00.1 - BRADYCARDIA, UNSPECIFIED (11) PAF (paroxysmal atrial fibrillation) Assessment/Plan: see under "sinus bradycardia" Code(s): I48.0 - PAROXYSMAL ATRIAL FIBRILLATION
--- NOTE | 2018-01-25 12:00 | PN ---
Progress Note (short form) - Note Progress Note: PULMONARY Vented, poorly responsive. No fevers recorded. Last Vital Signs Temp Pulse Resp BP Pulse Ox 99.0 F 60 14 121/56 97 01/25/18 09:45 01/25/18 09:45 01/25/18 09:45 01/25/18 09:45 01/25/18 09:51 Gen: vented, poorly responsive Heart: RRR Lung: scattered rhonchi Abd: soft, nontender Ext: no edema CBC, BMP 01/25/18 06:32 01/25/18 06:32 Active Medications Baclofen (Lioresal -) 10 mg GT TID [facility] Last Admin: 01/25/18 06:17 Dose: 10 mg Furosemide (Lasix Injection -) 40 mg IVPUSH BIDLASIX [facility] Last Admin: 01/25/18 06:17 Dose: 40 mg Ertapenem 0.5 gm/ Sodium (Chloride) 50 mls @ 100 mls/hr IVPB DAILY [facility] PRN Reason: Protocol Last Admin: 01/25/18 09:43 Dose: 100 mls/hr Insulin Aspart (Novolog Vial Sliding Scale -) 1 vial SQ ACHS [facility] PRN Reason: Protocol Last Admin: 01/25/18 11:53 Dose: 4 units Levothyroxine Sodium (Synthroid -) 37.5 mcg PEG DAILY@0700 [facility] Last Admin: 01/25/18 06:17 Dose: 37.5 mcg Oxybutynin Chloride (Ditropan -) 5 mg NGT BID [facility] Last Admin: 01/25/18 09:22 Dose: 5 mg Pantoprazole Sodium (Protonix Iv) 40 mg IVPUSH DAILY [facility] Last Admin: 01/25/18 09:22 Dose: 40 mg Sertraline HCl (Zoloft -) 25 mg NR DAILY [facility] Last Admin: 01/25/18 09:22 Dose: 25 mg A/P Chronic Respiratory Failure Hemoptysis likely from Epistaxis Acute Blood Loss Anemia Acute Kidney Injury Atrial Fibrillation DM CHF h/o Traumatic Brain Injury - monitor/quantify hemoptysis - monitor H/H - transfuse as needed - continue lasix - monitor urine output, creatinine - replete lytes - O2 to keep SpO2 >90% - continue volume assist control - DVT/GI prophylaxis
--- NOTE | 2018-01-25 12:54 | PN ---
Progress Note, Physician History of Present Illness: patient stable still poorly responsive family in room according to the daughter slightly better - Current Medication List Current Medications: Active Medications Baclofen (Lioresal -) 10 mg GT TID [facility] Last Admin: 01/25/18 06:17 Dose: 10 mg Furosemide (Lasix Injection -) 40 mg IVPUSH BIDLASIX [facility] Last Admin: 01/25/18 06:17 Dose: 40 mg Ertapenem 0.5 gm/ Sodium (Chloride) 50 mls @ 100 mls/hr IVPB DAILY LILIA PRN Reason: Protocol Last Admin: 01/25/18 09:43 Dose: 100 mls/hr Insulin Aspart (Novolog Vial Sliding Scale -) 1 vial SQ ACHS LILIA PRN Reason: Protocol Last Admin: 01/25/18 11:53 Dose: 4 units Levothyroxine Sodium (Synthroid -) 37.5 mcg PEG DAILY@0700 [facility] Last Admin: 01/25/18 06:17 Dose: 37.5 mcg Oxybutynin Chloride (Ditropan -) 5 mg NGT BID [facility] Last Admin: 01/25/18 09:22 Dose: 5 mg Pantoprazole Sodium (Protonix Iv) 40 mg IVPUSH DAILY [facility] Last Admin: 01/25/18 09:22 Dose: 40 mg Sertraline HCl (Zoloft -) 25 mg NR DAILY [facility] Last Admin: 01/25/18 09:22 Dose: 25 mg - Objective Vital Signs: Vital Signs Temperature 99.0 F 01/25/18 09:45 Pulse Rate 60 01/25/18 09:45 Respiratory Rate 14 01/25/18 09:45 Blood Pressure 121/56 01/25/18 09:45 O2 Sat by Pulse Oximetry (%) 97 01/25/18 09:51 Constitutional: Yes: Other Cardiovascular: Yes: Pulse Irregular, S1, S2 Respiratory: Yes: Mechanically Ventilated, Other (trachestomy) Gastrointestinal: Yes: Normal Bowel Sounds, Soft, Other (peg in place) Musculoskeletal: Yes: WNL Extremities: Yes: Other Neurological: Yes: Other Labs: CBC, BMP 01/25/18 06:32 01/25/18 06:32 INR, PTT INR 1.10 (0.82-1.09) 01/21/18 15:00 Assessment/Plan 87yo M with 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 He was found to have bright red bloody secretions suctioned from tracheostomy site.and now found to have esbl uti uti ac blood loos anemia Acute CHF Exacerbation S/p Tracheostomy Afib CKD DM2 Hypothyroidism patient was on ceftriaxone plan continue current abx rest continue current mgmt supportive structure rest as per nephro and the teams
--- NOTE | 2018-01-25 15:27 | PN ---
Progress Note (short form) - Note Progress Note: Subjective: The patient was seen and examined at the bedside, he is non-verbal and is not opening his eyes. Current Medications Generic Name Dose Route Start Last Admin Trade Name Jose PRN Reason Stop Dose Admin Baclofen 10 mg 01/22/18 22:00 01/25/18 14:25 Lioresal - GT 10 mg TID LILIA Administration Furosemide 40 mg 01/24/18 06:00 01/25/18 14:25 Lasix Injection - IVPUSH 40 mg BIDLASIX LILIA Administration Ertapenem 0.5 gm/ Sodium 50 mls @ 100 mls/hr 01/25/18 10:00 01/25/18 09:43 Chloride IVPB 100 mls/hr DAILY LILIA Administration Protocol Insulin Aspart 1 vial 01/22/18 22:00 01/25/18 11:53 Novolog Vial Sliding Scale - SQ 4 units ACHS LILIA Administration Protocol Levothyroxine Sodium 37.5 mcg 01/23/18 07:00 01/25/18 06:17 Synthroid - PEG 37.5 mcg DAILY@0700 LILIA Administration Oxybutynin Chloride 5 mg 01/22/18 22:00 01/25/18 09:22 Ditropan - NGT 5 mg BID LILIA Administration Pantoprazole Sodium 40 mg 01/23/18 10:00 01/25/18 09:22 Protonix Iv IVPUSH 40 mg DAILY LILIA Administration Sertraline HCl 25 mg 01/23/18 10:00 01/25/18 09:22 Zoloft - NR 25 mg DAILY LILIA Administration Objective: Vital Signs Period Temp Pulse Resp BP Sys/Wills Pulse Ox Last 24 Hr 98.7 F-99.7 F 57-83 14-19 121-148/56-70 97-97 Physical Exam: General: Vented, non-verbal, not opening eyes HEENT: Left nare rhino rocket in place, dried blood Lungs: Scattered rhonchi anteriorly Heart: RRR, S1S2 Abd: + peg tube : + christopher Ext: B/l upper extremity contractures CBCD WBC 6.4 K/mm3 (4.0-10.0) 01/25/18 06:32 RBC 3.05 M/mm3 (4.00-5.60) L 01/25/18 06:32 Hgb 8.1 GM/dL (11.7-16.9) L 01/25/18 06:32 Hct 25.1 % (35.4-49) L 01/25/18 06:32 MCV 82.3 fl (80-96) 01/25/18 06:32 MCHC 32.4 g/dl (32.0-35.9) 01/25/18 06:32 RDW 22.4 % (11.9-15.9) H 01/25/18 06:32 Plt Count 163 K/MM3 (134-434) 01/25/18 06:32 MPV 9.5 fl (7.5-11.1) 01/25/18 06:32 CMP Sodium 148 mmol/L (136-145) H 01/25/18 06:32 Potassium 3.0 mmol/L (3.5-5.1) L 01/25/18 06:32 Chloride 109 mmol/L (98-107) H 01/25/18 06:32 Carbon Dioxide 31 mmol/L (21-32) 01/25/18 06:32 Anion Gap 8 (8-16) 01/25/18 06:32 BUN 85 mg/dL (7-18) H 01/25/18 06:32 Creatinine 2.1 mg/dL (0.7-1.3) H 01/25/18 06:32 Creat Clearance w eGFR 30.17 (>60) 01/25/18 06:32 Random Glucose 231 mg/dL (74-106) H 01/25/18 06:32 Calcium 7.8 mg/dL (8.5-10.1) L 01/25/18 06:32 Total Bilirubin 0.5 mg/dL (0.2-1.0) D 01/25/18 06:32 AST 16 U/L (15-37) D 01/25/18 06:32 ALT 20 U/L (12-78) 01/25/18 06:32 Alkaline Phosphatase 94 U/L (45-117) 01/25/18 06:32 Total Protein 6.3 g/dl (6.4-8.2) L 01/25/18 06:32 Albumin 2.1 g/dl (3.4-5.0) L 01/25/18 06:32 CARDIAC ENZYMES Creatine Kinase 59 IU/L (39-308) 01/21/18 15:00 Troponin I < 0.02 ng/ml (0.00-0.05) 01/21/18 15:00 Microbiology 01/22/18 11:00 Urine - Urine Christopher Urine Culture - Final Proteus Mirabilus - Esbl Produ Assessment: This is an 87 year old male with PMHx of TBI (08/2017) s/p trach/peg , DM II, CKD, diastolic CHF, who presented to the ED with chandrika red blood from trach site. Plan: 1) Epistaxis - Still with rhino rocket in place - Per ENT, packing should be removed on Thursday - Continue abx coverage while packing is in place - Continue to monitor and trend Hgb - Appreciate ENT consult 2) Acute blood loss anemia - S/p 1u PRBC - F/u iron studies 3) Hemoptysis - Likely from epistaxis - Continue to monitor H/H - No further episodes 4) Proteus Mirabilus ESBL UTI - Continue Ertapenem 5) Chronic respiratory failure - Maintain vent settings 6) KATERIN on CKD - Continue IV lasix - Continue to monitor Cr - Check Feurea, UPCR - Maintain christopher catheter 7) Acute on chronic diastolic heart failure - Continue IV lasix 8) A.fib - Not on ac; anemia, hemoptysis, epistaxis - Rate controlled 9) DM - BGM q6h - ISS q6h 10) Hypothyroidism - Continue Synthroid 11) F/E/N: - Tube feeds - Hypernatremia: management per nephro - Hypokalemia: replete 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 - New Patient This patient is new to me today: Yes Date on this admission: 01/26/18 - Critical Care Critical Care patient: No
[2018-01-25] MEDS ORDERED: POTASSIUM CHLORIDE ORAL LIQUID 20 MEQ/15 ML PO ONE ×2 (16:43→17:30)
--- NOTE | 2018-01-25 17:21 | PN ---
Progress Note (short form) - Note Progress Note: Renal follow up for KATERIN on CKD Pt seen and examined at the bedside on vent via trach making urine on IVF FiO2 is 30% Vital Signs Temperature 99.5 F 01/25/18 14:53 Pulse Rate 62 01/25/18 14:53 Respiratory Rate 15 01/25/18 16:05 Blood Pressure 136/62 01/25/18 14:53 O2 Sat by Pulse Oximetry (%) 97 01/25/18 09:51 Intake & Output 01/22/18 01/23/18 01/24/18 01/25/18 23:59 23:59 23:59 23:59 Intake Total 170 1220 1920 1304 Output Total 1999 1600 1600 1300 Balance -1830 -380 320 4 Weight 72.8 kg 72.575 kg 71.679 kg 70.777 kg NAD on Vent No JVD RRR, No M/R CTA No LE edema CBC, BMP 01/25/18 06:32 01/25/18 06:32 Laboratory Tests 01/25/18 06:32 Calcium 7.8 L Phosphorus 4.6 Magnesium 2.3 Current Medications Baclofen (Lioresal -) 10 mg GT TID [facility] Last Admin: 01/25/18 14:25 Dose: 10 mg Furosemide (Lasix Injection -) 40 mg IVPUSH BIDLASIX [facility] Last Admin: 01/25/18 14:25 Dose: 40 mg Ertapenem 0.5 gm/ Sodium (Chloride) 50 mls @ 100 mls/hr IVPB DAILY [facility] PRN Reason: Protocol Last Admin: 01/25/18 09:43 Dose: 100 mls/hr Insulin Aspart (Novolog Vial Sliding Scale -) 1 vial SQ Q6HPO [facility] PRN Reason: Protocol Levothyroxine Sodium (Synthroid -) 37.5 mcg PEG DAILY@0700 [facility] Last Admin: 01/25/18 06:17 Dose: 37.5 mcg Oxybutynin Chloride (Ditropan -) 5 mg NGT BID [facility] Last Admin: 01/25/18 09:22 Dose: 5 mg Pantoprazole Sodium (Protonix Iv) 40 mg IVPUSH DAILY [facility] Last Admin: 01/25/18 09:22 Dose: 40 mg Potassium Chloride (Potassium Chloride Oral Liquid) 20 meq PO ONCE ONE Stop: 01/25/18 17:18 Sertraline HCl (Zoloft -) 25 mg NR DAILY [facility] Last Admin: 01/25/18 09:22 Dose: 25 mg 87 year old gentleman with PMhx of Traumatic brain injury now vented via trach with PEG, DM, CKD, CHF, Afib who presented with bright red blood from ET suctioning and found have acute anemia and Cr of 2. #KATERIN/CKD #Bleeding from ET tube #B/L Pleural effusions #Acute on Chronic Anemia #Hypernatremia #Proteinuria #Possible UTI #Hypokalemia Renal function stable at this time Trend BUN/Cr dialy Continue IV Lasix BID for management of fluid overload and pleural effusions check CXR in AM supplement KCL via G-tube repeat BMP in evening Continue Abx as per ID continue free water via g-tube no indication for [employer] thank you Will follow Frank Ayoub DO
[2018-01-25 19:25] LABS: ANION GAP 6 (8-16); BLOOD UREA NITROGEN 87 mg/dL (7-18); CALCIUM 7.8 mg/dL (8.5-10.1); CHLORIDE 110 mmol/L (98-107); CO2 32 mmol/L (21-32); CREATININE 2.1 mg/dL (0.7-1.3); GLUCOSE,RANDOM 170 mg/dL (74-106); SODIUM 148 mmol/L (136-145)
--- NOTE | 2018-01-25 19:30 | PN ---
Progress Note, Physician Chief Complaint: nosebleed History of Present Illness: no further bleeding - Current Medication List Current Medications: Active Medications Baclofen (Lioresal -) 10 mg GT TID [facility] Last Admin: 01/25/18 14:25 Dose: 10 mg Furosemide (Lasix Injection -) 40 mg IVPUSH BIDLASIX [facility] Last Admin: 01/25/18 14:25 Dose: 40 mg Ertapenem 0.5 gm/ Sodium (Chloride) 50 mls @ 100 mls/hr IVPB DAILY [facility] PRN Reason: Protocol Last Admin: 01/25/18 09:43 Dose: 100 mls/hr Insulin Aspart (Novolog Vial Sliding Scale -) 1 vial SQ Q6HPO [facility] PRN Reason: Protocol Last Admin: 01/25/18 17:50 Dose: 4 units Levothyroxine Sodium (Synthroid -) 37.5 mcg PEG DAILY@0700 [facility] Last Admin: 01/25/18 06:17 Dose: 37.5 mcg Oxybutynin Chloride (Ditropan -) 5 mg NGT BID [facility] Last Admin: 01/25/18 09:22 Dose: 5 mg Pantoprazole Sodium (Protonix Iv) 40 mg IVPUSH DAILY [facility] Last Admin: 01/25/18 09:22 Dose: 40 mg Sertraline HCl (Zoloft -) 25 mg NR DAILY [facility] Last Admin: 01/25/18 09:22 Dose: 25 mg - Objective Vital Signs: Vital Signs Temperature 99.5 F 01/25/18 14:53 Pulse Rate 62 01/25/18 14:53 Respiratory Rate 14 01/25/18 18:10 Blood Pressure 136/62 01/25/18 14:53 O2 Sat by Pulse Oximetry (%) 97 01/25/18 09:51 Constitutional: Yes: Other (nonresponsive. ventilated.) HENT: Yes: Other (left rhinorocket insertedfully. no e/o ongoing bleeding.) Labs: CBC, BMP 01/25/18 06:32 01/25/18 18:30 INR, PTT INR 1.10 (0.82-1.09) 01/21/18 15:00 Problem List - Problems (1) Epistaxis Assessment/Plan: 87M with epistaxis from left nose, unclear severity. Stable with rhinorocket - No anticoag or antiplatelet agents (apart from ASA 325 now off) - Will remove epistat tomorrow. - Repeat CBC as indicated. Coagulopathy w/u as appropriate. - Gram positive abx coverage while packing in place. - Many medical comorbidities - defer to primary medical team. Code(s): R04.0 - EPISTAXIS
--- NOTE | 2018-01-26 00:04 | EKG ---
Test Reason : Blood Pressure : / mmHG Vent. Rate : 052 BPM Atrial Rate : 052 BPM P-R Int : 132 ms QRS Dur : 066 ms QT Int : 474 ms P-R-T Axes : 056 009 027 degrees QTc Int : 440 ms SINUS BRADYCARDIA WITH PREMATURE ATRIAL COMPLEXES LOW VOLTAGE QRS SEPTAL INFARCT (CITED ON OR BEFORE 21-JAN-2018) ABNORMAL ECG WHEN COMPARED WITH ECG OF 21-JAN-2018 14:57, PREMATURE ATRIAL COMPLEXES ARE NOW PRESENT Confirmed by BLU GONCALVES, EDWIN ([id number]) on 01/26/2018 12:04:16 AM Referred By: Francheska PINK Confirmed By:EDWIN HURT MD
[2018-01-26] MEDS: INSULIN SLIDING SCALE (NOVOLOG) 1 VIAL SQ SCH ×4 (05:31→19:00)
[2018-01-26] MEDS: FUROSEMIDE 40 MG/4 ML INJECTABLE VIAL IVPUSH SCH ×2 (05:34→14:26)
[2018-01-26] MEDS: BACLOFEN 10 MG TABLET (FP) GT SCH ×2 (05:35→14:26)
[2018-01-26 06:06] LABS: SERUM IRON SATURATION 11 % (15-55); TOTAL IRON BINDING CAPACITY 158 ug/dL (250-450); UIBC 140 ug/dL (111-343)
[2018-01-26] MEDS: LEVOTHYROXINE NA 25 MCG TABLET (FP) PEG SCH (06:08)
[2018-01-26 07:45] LABS: BASO % 0.5 % (0-2.0); EOS % 1.3 % (0-4.5); HEMOGLOBIN 7.7 GM/dL (11.7-16.9); LYMPH % 24.7 % (8-40); MCH 26.4 pg (25.7-33.7); MCHC 31.9 g/dl (32.0-35.9); MEAN CELL VOLUME 82.8 fl (80-96); MEAN PLT VOLUME 9.1 fl (7.5-11.1); MONO % 7.2 % (3.8-10.2); NEUT % 66.3 % (42.8-82.8); PLATELET COUNT 133 K/MM3 (134-434); RBC 2.89 M/mm3 (4.00-5.60); RDW 22.2 % (11.9-15.9); WHITE BLOOD COUNT 4.9 K/mm3 (4.0-10.0)
[2018-01-26 08:17] LABS: CHLORIDE 110 mmol/L (98-107); POTASSIUM 3.2 mmol/L (3.5-5.1); SODIUM 148 mmol/L (136-145)
[2018-01-26 08:27] LABS: ANION GAP 6 (8-16); BLOOD UREA NITROGEN 92 mg/dL (7-18); CALCIUM 7.8 mg/dL (8.5-10.1); CO2 32 mmol/L (21-32); CREATININE 2.2 mg/dL (0.7-1.3); GLUCOSE,RANDOM 168 mg/dL (74-106); MAGNESIUM 2.2 mg/dL (1.8-2.4); PHOSPHOROUS 4.1 mg/dL (2.5-4.9)
--- NOTE | 2018-01-26 10:42 | PN ---
Progress Note, Physician History of Present Illness: This is an 87 yr old white man with h/o traumatic fall down stairs (admitted to [facility] about a month ago and had neck/back surgery, tracheotomy placement 2016 now with traumatic brain injury (TBI), ventilator dependent, and PEG tube placement), recent aspiration PNA, A-fib, CHF, DM, renal failure, TBI, legally blind and deaf; who is BIBA from [facility] in [place] for blood with clots suctioned from his tracheostomy tube yesterday , as well as anemia detected on his lab work today. 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 Per conversation with attending Dr. Yadiel Gallegos at [facility], yesterday the patient was noted to have bloody secretions suctioned from tracheostomy site , so CBC was checked. His Hct was 24 yesterday, which was down ~10 points from his prior values. They re-checked it again today and Hct was 21. [facility] checked his urine and there was a small amount of blood in it (not enough to explain the Hct drop). Their primary concern has been for GI bleed and FOBT was ordered but had not resulted at the time the patient was sent here. Received his noon medications and simethicone and a portion of his noon PEG tube feeding (had to be stopped early for transport). - Current Medication List Current Medications: Active Medications Baclofen (Lioresal -) 10 mg GT TID [facility] Last Admin: 01/26/18 05:35 Dose: 10 mg Furosemide (Lasix Injection -) 40 mg IVPUSH BIDLASIX [facility] Last Admin: 01/26/18 05:34 Dose: 40 mg Ertapenem 0.5 gm/ Sodium (Chloride) 50 mls @ 100 mls/hr IVPB DAILY [facility] PRN Reason: Protocol Last Admin: 01/25/18 09:43 Dose: 100 mls/hr Insulin Aspart (Novolog Vial Sliding Scale -) 1 vial SQ Q6HPO [facility] PRN Reason: Protocol Last Admin: 01/26/18 05:31 Dose: 2 units Levothyroxine Sodium (Synthroid -) 37.5 mcg PEG DAILY@0700 [facility] Last Admin: 01/26/18 06:08 Dose: 37.5 mcg Oxybutynin Chloride (Ditropan -) 5 mg NGT BID [facility] Last Admin: 01/25/18 23:30 Dose: 5 mg Pantoprazole Sodium (Protonix Iv) 40 mg IVPUSH DAILY [facility] Last Admin: 01/25/18 09:22 Dose: 40 mg Sertraline HCl (Zoloft -) 25 mg NR DAILY [facility] Last Admin: 01/25/18 09:22 Dose: 25 mg - Objective Vital Signs: Vital Signs Temperature 97.5 F L 01/26/18 06:00 Pulse Rate 57 L 01/26/18 06:00 Respiratory Rate 14 01/26/18 06:03 Blood Pressure 128/75 01/26/18 06:00 O2 Sat by Pulse Oximetry (%) 100 01/25/18 21:00 Labs: CBC, BMP 01/26/18 07:00 01/26/18 07:00 INR, PTT INR 1.10 (0.82-1.09) 01/21/18 15:00 Problem List - Problems (1) Acute on chronic diastolic CHF (congestive heart failure) Code(s): I50.33 - ACUTE ON CHRONIC DIASTOLIC (CONGESTIVE) HEART FAILURE (2) Chronic respiratory failure Code(s): J96.10 - CHRONIC RESPIRATORY FAILURE, UNSP W HYPOXIA OR HYPERCAPNIA (3) Diabetes Code(s): E11.9 - TYPE 2 DIABETES MELLITUS WITHOUT COMPLICATIONS (4) Epistaxis Code(s): R04.0 - EPISTAXIS (5) Hemoptysis Code(s): R04.2 - HEMOPTYSIS (6) Hypothyroid Code(s): E03.9 - HYPOTHYROIDISM, UNSPECIFIED (7) S/P percutaneous endoscopic gastrostomy (PEG) tube placement Code(s): Z93.1 - GASTROSTOMY STATUS (8) TBI (traumatic brain injury) Code(s): S06.9X9A - UNSP INTRACRANIAL INJURY W LOC OF UNSP DURATION, INIT (9) Tracheostomy dependent Code(s): Z93.0 - TRACHEOSTOMY STATUS (10) Sinus bradycardia Code(s): R00.1 - BRADYCARDIA, UNSPECIFIED (11) PAF (paroxysmal atrial fibrillation) Code(s): I48.0 - PAROXYSMAL ATRIAL FIBRILLATION (12) Hypokalemia Assessment/Plan: K 3.2 today; to receive furosemide IV this afternoon. Will add KCL 10 meq x 3 IVPD. Code(s): E87.6 - HYPOKALEMIA
[2018-01-26] MEDS ORDERED: PT OWN MED DRAWER 7, Y5N ONE (10:57)
[2018-01-26] MEDS: PANTOPRAZOLE SODIUM 40 MG VIAL IVPUSH SCH (11:06)
[2018-01-26] MEDS: OXYBUTYNIN CHLORIDE 5 MG TABLET NGT SCH (11:06)
[2018-01-26] MEDS: SERTRALINE HCL 25 MG TABLET (FP) NR SCH (11:06)
[2018-01-26] MEDS: ERTAPENEM SODIUM 0.5 GM in SODIUM CHLORIDE 50 ML IVPB SCH (11:06)
--- NOTE | 2018-01-26 11:08 | PN ---
Progress Note (short form) - Note Progress Note: PULMONARY Vented, poorly responsive. Low grade temp overnight. Last Vital Signs Temp Pulse Resp BP Pulse Ox 97.5 F L 57 L 14 128/75 100 01/26/18 06:00 01/26/18 06:00 01/26/18 06:03 01/26/18 06:00 01/25/18 21:00 Gen: vented, poorly responsive Heart: RRR Lung: scattered rhonchi Abd: soft, nontender Ext: no edema CBC, BMP 01/26/18 07:00 01/26/18 07:00 Active Medications Baclofen (Lioresal -) 10 mg GT TID [facility] Last Admin: 01/26/18 05:35 Dose: 10 mg Furosemide (Lasix Injection -) 40 mg IVPUSH BIDLASIX [facility] Last Admin: 01/26/18 05:34 Dose: 40 mg Ertapenem 0.5 gm/ Sodium (Chloride) 50 mls @ 100 mls/hr IVPB DAILY [facility] PRN Reason: Protocol Last Admin: 01/25/18 09:43 Dose: 100 mls/hr Insulin Aspart (Novolog Vial Sliding Scale -) 1 vial SQ Q6HPO [facility] PRN Reason: Protocol Last Admin: 01/26/18 05:31 Dose: 2 units Levothyroxine Sodium (Synthroid -) 37.5 mcg PEG DAILY@0700 [facility] Last Admin: 01/26/18 06:08 Dose: 37.5 mcg Oxybutynin Chloride (Ditropan -) 5 mg NGT BID [facility] Last Admin: 01/25/18 23:30 Dose: 5 mg Pantoprazole Sodium (Protonix Iv) 40 mg IVPUSH DAILY [facility] Last Admin: 01/25/18 09:22 Dose: 40 mg Sertraline HCl (Zoloft -) 25 mg NR DAILY [facility] Last Admin: 01/25/18 09:22 Dose: 25 mg A/P Chronic Respiratory Failure Hemoptysis likely from Epistaxis Acute Blood Loss Anemia Acute Kidney Injury Atrial Fibrillation DM CHF h/o Traumatic Brain Injury - monitor H/H - transfuse as needed - continue lasix - monitor urine output, creatinine - repeat CXR in AM - replete lytes - O2 to keep SpO2 >90% - continue volume assist control - DVT/GI prophylaxis
--- NOTE | 2018-01-26 12:11 | PN ---
Progress Note (short form) - Note Progress Note: Subjective: The patient was seen and examined at the bedside, he is non-verbal and is not opening his eyes. Current Medications Generic Name Dose Route Start Last Admin Trade Name Jose PRN Reason Stop Dose Admin Baclofen 10 mg 01/22/18 22:00 01/25/18 14:25 Lioresal - GT 10 mg TID [facility] Administration Furosemide 40 mg 01/24/18 06:00 01/25/18 14:25 Lasix Injection - IVPUSH 40 mg BIDLASIX [facility] Administration Ertapenem 0.5 gm/ Sodium 50 mls @ 100 mls/hr 01/25/18 10:00 01/25/18 09:43 Chloride IVPB 100 mls/hr DAILY [facility] Administration Protocol Insulin Aspart 1 vial 01/22/18 22:00 01/25/18 11:53 Novolog Vial Sliding Scale - SQ 4 units ACHS [facility] Administration Protocol Levothyroxine Sodium 37.5 mcg 01/23/18 07:00 01/25/18 06:17 Synthroid - PEG 37.5 mcg DAILY@0700 [facility] Administration Oxybutynin Chloride 5 mg 01/22/18 22:00 01/25/18 09:22 Ditropan - NGT 5 mg BID [facility] Administration Pantoprazole Sodium 40 mg 01/23/18 10:00 01/25/18 09:22 Protonix Iv IVPUSH 40 mg DAILY [facility] Administration Sertraline HCl 25 mg 01/23/18 10:00 01/25/18 09:22 Zoloft - NR 25 mg DAILY [facility] Administration Objective: Vital Signs Period Temp Pulse Resp BP Sys/Wills Pulse Ox Last 24 Hr 98.7 F-99.7 F 57-83 14-19 121-148/56-70 97-97 Physical Exam: General: Vented, non-verbal, not opening eyes HEENT: Left nare rhino rocket in place, dried blood Lungs: Scattered rhonchi anteriorly Heart: RRR, S1S2 Abd: + peg tube : + christopher Ext: B/l upper extremity contractures CBCD WBC 6.4 K/mm3 (4.0-10.0) 01/25/18 06:32 RBC 3.05 M/mm3 (4.00-5.60) L 01/25/18 06:32 Hgb 8.1 GM/dL (11.7-16.9) L 01/25/18 06:32 Hct 25.1 % (35.4-49) L 01/25/18 06:32 MCV 82.3 fl (80-96) 01/25/18 06:32 MCHC 32.4 g/dl (32.0-35.9) 01/25/18 06:32 RDW 22.4 % (11.9-15.9) H 01/25/18 06:32 Plt Count 163 K/MM3 (134-434) 01/25/18 06:32 MPV 9.5 fl (7.5-11.1) 01/25/18 06:32 CMP Sodium 148 mmol/L (136-145) H 01/25/18 06:32 Potassium 3.0 mmol/L (3.5-5.1) L 01/25/18 06:32 Chloride 109 mmol/L (98-107) H 01/25/18 06:32 Carbon Dioxide 31 mmol/L (21-32) 01/25/18 06:32 Anion Gap 8 (8-16) 01/25/18 06:32 BUN 85 mg/dL (7-18) H 01/25/18 06:32 Creatinine 2.1 mg/dL (0.7-1.3) H 01/25/18 06:32 Creat Clearance w eGFR 30.17 (>60) 01/25/18 06:32 Random Glucose 231 mg/dL (74-106) H 01/25/18 06:32 Calcium 7.8 mg/dL (8.5-10.1) L 01/25/18 06:32 Total Bilirubin 0.5 mg/dL (0.2-1.0) D 01/25/18 06:32 AST 16 U/L (15-37) D 01/25/18 06:32 ALT 20 U/L (12-78) 01/25/18 06:32 Alkaline Phosphatase 94 U/L (45-117) 01/25/18 06:32 Total Protein 6.3 g/dl (6.4-8.2) L 01/25/18 06:32 Albumin 2.1 g/dl (3.4-5.0) L 01/25/18 06:32 CARDIAC ENZYMES Creatine Kinase 59 IU/L (39-308) 01/21/18 15:00 Troponin I < 0.02 ng/ml (0.00-0.05) 01/21/18 15:00 Microbiology 01/22/18 11:00 Urine - Urine Christopher Urine Culture - Final Proteus Mirabilus - Esbl Produ Assessment: This is an 87 year old male with PMHx of TBI (08/2017) s/p trach/peg , DM II, CKD, diastolic CHF, who presented to the ED with chandrika red blood from trach site. Plan: 1) Fever - Patient febrile overnight 100.5 - F/u cultures - Repeat chest x-ray - Continue Ertapenem per ID 2) Epistaxis - Still with rhino rocket in place - Packing to be removed today by ENT - Continue abx coverage while packing is in place - Continue to monitor and trend Hgb - Appreciate ENT consult 3) Acute blood loss anemia - S/p 1u PRBC - F/u iron studies - Transfuse per nephrology 4) Hemoptysis - Likely from epistaxis - Continue to monitor H/H - No further episodes 5) Proteus Mirabilus ESBL UTI - Continue Ertapenem 6) Chronic respiratory failure - Maintain vent settings 7) KATERIN on CKD - Continue IV lasix - Continue to monitor Cr - Check Feurea, UPCR - Maintain christopher catheter 8) Acute on chronic diastolic heart failure - Continue IV lasix 9) A.fib - Not on ac; anemia, hemoptysis, epistaxis - Rate controlled 10) DM - BGM q6h - ISS q6h 11) Hypothyroidism - Continue Synthroid 12) F/E/N: - Tube feeds - Hypernatremia: management per nephro - Hypokalemia: replete 13) Functional quadraplegia Visit type - Emergency Visit Emergency Visit: Yes ED Registration Date: 01/21/18 Care time: The patient presented to the Emergency Department on the above date and was hospitalized for further evaluation of their emergent condition. - New Patient This patient is new to me today: No - Critical Care Critical Care patient: No
[2018-01-26] MEDS: POTASSIUM CHLORIDE 10 MEQ in SODIUM CHLORIDE 100 ML IVPB SCH ×3 (13:31→16:48)
--- NOTE | 2018-01-26 15:10 | PN ---
Progress Note, Physician History of Present Illness: patient stable no new issues - Current Medication List Current Medications: Active Medications Baclofen (Lioresal -) 10 mg GT TID [facility] Last Admin: 01/26/18 14:26 Dose: 10 mg Furosemide (Lasix Injection -) 40 mg IVPUSH BIDLASIX [facility] Last Admin: 01/26/18 14:26 Dose: 40 mg Ertapenem 0.5 gm/ Sodium (Chloride) 50 mls @ 100 mls/hr IVPB DAILY [facility] PRN Reason: Protocol Last Admin: 01/26/18 11:06 Dose: 100 mls/hr Potassium Chloride 10 meq/ (Sodium Chloride) 105 mls @ 100 mls/hr IVPB Q60M [facility] Stop: 01/26/18 15:59 Last Admin: 01/26/18 14:26 Dose: 100 mls/hr Insulin Aspart (Novolog Vial Sliding Scale -) 1 vial SQ Q6HPO [facility] PRN Reason: Protocol Last Admin: 01/26/18 12:41 Dose: 6 units Levothyroxine Sodium (Synthroid -) 37.5 mcg PEG DAILY@0700 [facility] Last Admin: 01/26/18 06:08 Dose: 37.5 mcg Oxybutynin Chloride (Ditropan -) 5 mg NGT BID [facility] Last Admin: 01/26/18 11:06 Dose: 5 mg Pantoprazole Sodium (Protonix Iv) 40 mg IVPUSH DAILY [facility] Last Admin: 01/26/18 11:06 Dose: 40 mg Sertraline HCl (Zoloft -) 25 mg NR DAILY [facility] Last Admin: 01/26/18 11:06 Dose: 25 mg - Objective Vital Signs: Vital Signs Temperature 98.4 F 01/26/18 10:00 Pulse Rate 56 L 01/26/18 10:00 Respiratory Rate 14 01/26/18 10:35 Blood Pressure 146/63 01/26/18 10:00 O2 Sat by Pulse Oximetry (%) 100 01/26/18 09:00 Constitutional: Yes: No Distress, Calm Cardiovascular: Yes: Regular Rate and Rhythm Respiratory: Yes: Mechanically Ventilated, Other (trach) Gastrointestinal: Yes: Normal Bowel Sounds, Soft Genitourinary: Yes: Childs Present Musculoskeletal: Yes: WNL Extremities: Yes: WNL Neurological: Yes: Other Psychiatric: Yes: Other Labs: CBC, BMP 01/26/18 07:00 01/26/18 07:00 INR, PTT INR 1.10 (0.82-1.09) 01/21/18 15:00 Assessment/Plan 87yo M with 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 He was found to have bright red bloody secretions suctioned from tracheostomy site.and now found to have esbl uti uti ac blood loos anemia Acute CHF Exacerbation S/p Tracheostomy Afib CKD DM2 Hypothyroidism plan continue current abx rest continue current mgmt supportive structure rest as per nephro and the teams patient will need 2 weeks of abx
[2018-01-26] MEDS: ACETAMINOPHEN 650 MG/20.3 ML ORAL SOLUTION (CUPS) PO ONE ×2 (17:00→17:48)
--- NOTE | 2018-01-26 17:21 | PN ---
Progress Note (short form) - Note Progress Note: Renal follow up for KATERIN on CKD Pt seen and examined at the bedside on vent via trach making urine on IVF FiO2 is 30% Vital Signs Temperature 99.5 F 01/25/18 14:53 Pulse Rate 62 01/25/18 14:53 Respiratory Rate 15 01/25/18 16:05 Blood Pressure 136/62 01/25/18 14:53 O2 Sat by Pulse Oximetry (%) 97 01/25/18 09:51 Intake & Output 01/22/18 01/23/18 01/24/18 01/25/18 23:59 23:59 23:59 23:59 Intake Total 170 1220 1920 1304 Output Total 1999 1600 1600 1300 Balance -1830 -380 320 4 Weight 72.8 kg 72.575 kg 71.679 kg 70.777 kg NAD on Vent No JVD RRR, No M/R CTA No LE edema CBC, BMP 01/25/18 06:32 01/25/18 06:32 Laboratory Tests 01/25/18 06:32 Calcium 7.8 L Phosphorus 4.6 Magnesium 2.3 Current Medications Baclofen (Lioresal -) 10 mg GT TID [facility] Last Admin: 01/25/18 14:25 Dose: 10 mg Furosemide (Lasix Injection -) 40 mg IVPUSH BIDLASIX [facility] Last Admin: 01/25/18 14:25 Dose: 40 mg Ertapenem 0.5 gm/ Sodium (Chloride) 50 mls @ 100 mls/hr IVPB DAILY [facility] PRN Reason: Protocol Last Admin: 01/25/18 09:43 Dose: 100 mls/hr Insulin Aspart (Novolog Vial Sliding Scale -) 1 vial SQ Q6HPO [facility] PRN Reason: Protocol Levothyroxine Sodium (Synthroid -) 37.5 mcg PEG DAILY@0700 [facility] Last Admin: 01/25/18 06:17 Dose: 37.5 mcg Oxybutynin Chloride (Ditropan -) 5 mg NGT BID [facility] Last Admin: 01/25/18 09:22 Dose: 5 mg Pantoprazole Sodium (Protonix Iv) 40 mg IVPUSH DAILY [facility] Last Admin: 01/25/18 09:22 Dose: 40 mg Potassium Chloride (Potassium Chloride Oral Liquid) 20 meq PO ONCE ONE Stop: 01/25/18 17:18 Sertraline HCl (Zoloft -) 25 mg NR DAILY [facility] Last Admin: 01/25/18 09:22 Dose: 25 mg 87 year old gentleman with PMhx of Traumatic brain injury now vented via trach with PEG, DM, CKD, CHF, Afib who presented with bright red blood from ET suctioning and found have acute anemia and Cr of 2. #KATERIN/CKD #Bleeding from ET tube #B/L Pleural effusions #Acute on Chronic Anemia #Hypernatremia #Proteinuria #Possible UTI #Hypokalemia Renal function stable at this time Trend BUN/Cr dialy Continue IV Lasix BID for management of fluid overload and pleural effusions check CXR in AM supplement KCL via G-tube repeat BMP in evening Continue Abx as per ID continue free water via g-tube no indication for SERVICE SPECIALIST thank you Will follow Frank Ayoub DO
--- NOTE | 2018-01-26 17:28 | PN ---
Progress Note (short form) - Note Progress Note: Renal follow up for KATERIN on CKD Pt seen and examined at the bedside on vent via trach making urine, slightly net negative Vital Signs Temperature 99.9 F H 01/26/18 15:10 Pulse Rate 64 01/26/18 15:10 Respiratory Rate 14 01/26/18 15:10 Blood Pressure 122/50 01/26/18 15:10 O2 Sat by Pulse Oximetry (%) 100 01/26/18 09:00 Intake & Output 01/23/18 01/24/18 01/25/18 01/26/18 23:59 23:59 23:59 23:59 Intake Total 1220 1920 1304 Output Total 1600 1600 1600 1000 Balance -380 320 -296 -1000 Weight 72.575 kg 71.679 kg 70.777 kg 71.214 kg NAD on Vent No JVD RRR, No M/R CTA No LE edema CBC, BMP 01/26/18 07:00 01/26/18 07:00 Current Medications Baclofen (Lioresal -) 10 mg GT TID [facility] Last Admin: 01/26/18 14:26 Dose: 10 mg Furosemide (Lasix Injection -) 40 mg IVPUSH BIDLASIX [facility] Last Admin: 01/26/18 14:26 Dose: 40 mg Ertapenem 0.5 gm/ Sodium (Chloride) 50 mls @ 100 mls/hr IVPB DAILY [facility] PRN Reason: Protocol Last Admin: 01/26/18 11:06 Dose: 100 mls/hr Insulin Aspart (Novolog Vial Sliding Scale -) 1 vial SQ Q6HPO [facility] PRN Reason: Protocol Last Admin: 01/26/18 12:41 Dose: 6 units Levothyroxine Sodium (Synthroid -) 37.5 mcg PEG DAILY@0700 [facility] Last Admin: 01/26/18 06:08 Dose: 37.5 mcg Oxybutynin Chloride (Ditropan -) 5 mg NGT BID [facility] Last Admin: 01/26/18 11:06 Dose: 5 mg Pantoprazole Sodium (Protonix Iv) 40 mg IVPUSH DAILY [facility] Last Admin: 01/26/18 11:06 Dose: 40 mg Sertraline HCl (Zoloft -) 25 mg NR DAILY [facility] Last Admin: 01/26/18 11:06 Dose: 25 mg 87 year old gentleman with PMhx of Traumatic brain injury [id number] now vented via trach with PEG, DM, CKD, CHF, Afib who presented with bright red blood from ET suctioning and found have acute anemia and Cr of 2. #KATERIN/CKD #Bleeding from ET tube #B/L Pleural effusions #Acute on Chronic Anemia #Hypernatremia #Proteinuria #Possible UTI #Hypokalemia BUN/Cr slightly higher then baseline and uptrending clinically improved, will decrease Lasix to 40mg IV once daily CXR w/o significant improvement increase free water via G tube Abx as per ID supplement KCL to maintain to > 3.5 will give IV iron x 1 for anemia with low iron saturation Frank Ayoub DO
[2018-01-26] MEDS ORDERED: POTASSIUM CHLORIDE ORAL LIQUID 20 MEQ/15 ML PO ONE (17:40)
[2018-01-26] MEDS ORDERED: SODIUM CHLORIDE 1,000 ML IV SCH (19:00)
[2018-01-26] MEDS ORDERED: ACETAMINOPHEN 1000 MG/100 ML VIAL (NON FORMULARY) IVPB ONE (19:30)
--- NOTE | 2018-01-26 20:17 | PN ---
Progress Note, Physician Chief Complaint: nosebleed History of Present Illness: no further bleeding - Current Medication List Current Medications: Active Medications Baclofen (Lioresal -) 10 mg GT TID [facility] Last Admin: 01/26/18 14:26 Dose: 10 mg Furosemide (Lasix Injection -) 40 mg IVPUSH BIDLASIX [facility] Last Admin: 01/26/18 14:26 Dose: 40 mg Ertapenem 0.5 gm/ Sodium (Chloride) 50 mls @ 100 mls/hr IVPB DAILY [facility] PRN Reason: Protocol Last Admin: 01/26/18 11:06 Dose: 100 mls/hr Insulin Aspart (Novolog Vial Sliding Scale -) 1 vial SQ Q6HPO [facility] PRN Reason: Protocol Last Admin: 01/26/18 12:41 Dose: 6 units Levothyroxine Sodium (Synthroid -) 37.5 mcg PEG DAILY@0700 [facility] Last Admin: 01/26/18 06:08 Dose: 37.5 mcg Oxybutynin Chloride (Ditropan -) 5 mg NGT BID [facility] Last Admin: 01/26/18 11:06 Dose: 5 mg Pantoprazole Sodium (Protonix Iv) 40 mg IVPUSH DAILY [facility] Last Admin: 01/26/18 11:06 Dose: 40 mg Sertraline HCl (Zoloft -) 25 mg NR DAILY [facility] Last Admin: 01/26/18 11:06 Dose: 25 mg - Objective Vital Signs: Vital Signs Temperature 100.3 F H 01/26/18 18:00 Pulse Rate 57 L 01/26/18 18:00 Respiratory Rate 14 01/26/18 18:55 Blood Pressure 127/48 01/26/18 18:00 O2 Sat by Pulse Oximetry (%) 100 01/26/18 09:00 Constitutional: Yes: Other (ventilated, nonresponsive) HENT: Yes: Other (left rhinorocket fpc extruded. no bleeding) Labs: CBC, BMP 01/26/18 07:00 01/26/18 07:00 INR, PTT INR 1.10 (0.82-1.09) 01/21/18 15:00 Problem List - Problems (1) Epistaxis Assessment/Plan: 87M with epistaxis from left nose, unclear severity. Stable with rhinorocket - No anticoag or antiplatelet agents (apart from ASA 325 now off) - packing removed today, was only ~2cm inside nose. This area of septum appears wnl. nothing to cauterize. No indic for endoscopy at this time. - Many medical comorbidities - defer to primary medical team. - Saline spray QID Will sign off. Call with questions. Code(s): R04.0 - EPISTAXIS
[2018-01-26] MEDS: SODIUM CHLORIDE NASAL SPRAY 44 ML BOTTLE NS SCH (23:44)
[2018-01-27] MEDS: OXYBUTYNIN CHLORIDE 5 MG TABLET NGT SCH ×3 (00:48→22:03)
[2018-01-27] MEDS: BACLOFEN 10 MG TABLET (FP) GT SCH ×4 (00:48→22:03)
[2018-01-27] MEDS: INSULIN SLIDING SCALE (NOVOLOG) 1 VIAL SQ SCH ×5 (01:33→23:05)
[2018-01-27] MEDS: FUROSEMIDE 40 MG/4 ML INJECTABLE VIAL IVPUSH SCH (06:36)
[2018-01-27] MEDS: LEVOTHYROXINE NA 25 MCG TABLET (FP) PEG SCH (06:36)
[2018-01-27] MEDS: SODIUM CHLORIDE NASAL SPRAY 44 ML BOTTLE NS SCH ×3 (06:37→22:03)
[2018-01-27 07:51] LABS: BASO % 0.4 % (0-2.0); EOS % 2.5 % (0-4.5); HEMATOCRIT 25.2 % (35.4-49); HEMOGLOBIN 8.1 GM/dL (11.7-16.9); LYMPH % 24.6 % (8-40); MCH 26.5 pg (25.7-33.7); MCHC 32.1 g/dl (32.0-35.9); MEAN CELL VOLUME 82.5 fl (80-96); MEAN PLT VOLUME 9.7 fl (7.5-11.1); MONO % 6.3 % (3.8-10.2); NEUT % 66.2 % (42.8-82.8); PLATELET COUNT 156 K/MM3 (134-434); RBC 3.05 M/mm3 (4.00-5.60); RDW 22.7 % (11.9-15.9); WHITE BLOOD COUNT 4.5 K/mm3 (4.0-10.0)
[2018-01-27 08:10] LABS: CHLORIDE 110 mmol/L (98-107); SODIUM 149 mmol/L (136-145)
[2018-01-27 08:19] LABS: ALK PHOS 89 U/L (45-117); ANION GAP 9 (8-16); BILIRUBIN,TOTAL 0.6 mg/dL (0.2-1.0); BLOOD UREA NITROGEN 91 mg/dL (7-18); CALCIUM 7.9 mg/dL (8.5-10.1); CO2 30 mmol/L (21-32); CREATININE 2.2 mg/dL (0.7-1.3); GLUCOSE,RANDOM 182 mg/dL (74-106); SGOT/AST 37 U/L (15-37); SGPT/ALT 38 U/L (12-78); TOT PROT 6.1 g/dl (6.4-8.2)
--- NOTE | 2018-01-27 09:56 | PN ---
Progress Note (short form) - Note Progress Note: G-tube assessed. Patent. Functioning as intended. Recall GI as needed.
[2018-01-27] MEDS ORDERED: PT OWN MED DRAWER 7, Y5N ONE (11:13)
[2018-01-27] MEDS: ERTAPENEM SODIUM 0.5 GM in SODIUM CHLORIDE 50 ML IVPB SCH (11:18)
[2018-01-27] MEDS: PANTOPRAZOLE SODIUM 40 MG VIAL IVPUSH SCH (11:18)
[2018-01-27] MEDS: SERTRALINE HCL 25 MG TABLET (FP) NR SCH (11:18)
--- NOTE | 2018-01-27 11:21 | PN ---
Progress Note, Physician History of Present Illness: This is an 87 yr old white man with h/o traumatic fall down stairs (admitted to [facility] about a month ago and had neck/back surgery, tracheotomy placement 2016 now with traumatic brain injury (TBI), ventilator dependent, and PEG tube placement), recent aspiration PNA, A-fib, CHF, DM, renal failure, TBI, legally blind and deaf; who is BIBA from [facility] in [place] for blood with clots suctioned from his tracheostomy tube yesterday , as well as anemia detected on his lab work today. 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 Per conversation with attending Dr. Yadiel Gallegos at [facility], yesterday the patient was noted to have bloody secretions suctioned from tracheostomy site , so CBC was checked. His Hct was 24 yesterday, which was down ~10 points from his prior values. They re-checked it again today and Hct was 21. [facility] checked his urine and there was a small amount of blood in it (not enough to explain the Hct drop). Their primary concern has been for GI bleed and FOBT was ordered but had not resulted at the time the patient was sent here. Received his noon medications and simethicone and a portion of his noon PEG tube feeding (had to be stopped early for transport). - Current Medication List Current Medications: Active Medications Baclofen (Lioresal -) 10 mg GT TID [facility] Last Admin: 01/27/18 06:36 Dose: 10 mg Furosemide (Lasix Injection -) 40 mg IVPUSH BIDLASIX [facility] Last Admin: 01/27/18 06:36 Dose: 40 mg Ertapenem 0.5 gm/ Sodium (Chloride) 50 mls @ 100 mls/hr IVPB DAILY [facility]; Protocol Last Admin: 01/26/18 11:06 Dose: 100 mls/hr Insulin Aspart (Novolog Vial Sliding Scale -) 1 vial SQ Q6HPO [facility]; Protocol Last Admin: 01/27/18 06:37 Dose: 2 units Levothyroxine Sodium (Synthroid -) 37.5 mcg PEG DAILY@0700 [facility] Last Admin: 01/27/18 06:36 Dose: 37.5 mcg Oxybutynin Chloride (Ditropan -) 5 mg NGT BID [facility] Last Admin: 01/27/18 00:48 Dose: 5 mg Pantoprazole Sodium (Protonix Iv) 40 mg IVPUSH DAILY [facility] Last Admin: 01/26/18 11:06 Dose: 40 mg Sertraline HCl (Zoloft -) 25 mg NR DAILY [facility] Last Admin: 01/26/18 11:06 Dose: 25 mg Sodium Chloride ([place] Nas[place] -) 2 spray NS TID [facility] Last Admin: 01/27/18 06:37 Dose: 2 spray - Objective Vital Signs: Vital Signs Temperature 97 F L 01/27/18 06:00 Pulse Rate 56 L 01/27/18 06:00 Respiratory Rate 14 01/27/18 10:32 Blood Pressure 107/57 01/27/18 06:00 O2 Sat by Pulse Oximetry (%) 99 01/26/18 19:00 Eyes: Yes: WNL, Conjunctiva Clear, EOM Intact HENT: Yes: WNL, Atraumatic, Normocephalic Neck: Yes: WNL, Supple, Trachea Midline Cardiovascular: Yes: Pulse Irregular, S1, S2 Respiratory: Yes: Diminished Gastrointestinal: Yes: WNL, Normal Bowel Sounds Genitourinary: Yes: WNL Musculoskeletal: Yes: WNL Extremities: Yes: WNL Edema: No Integumentary: Yes: WNL Neurological: Yes: WNL, Alert, Oriented ...Motor Strength: WNL Psychiatric: Yes: WNL Labs: CBC, BMP 01/27/18 06:53 01/27/18 06:53 INR, PTT INR 1.10 (0.82-1.09) 01/21/18 15:00 Assessment/Plan (1) Acute on chronic diastolic CHF (congestive heart failure) Assessment/Plan: ECHO: normal LVEF; mild-moderate MR On furosemide; F/u BUN/Cr, electrolytes, daily weight, Is and Os. Discussed pt again with his daughter, Lena. Code(s): I50.33 - ACUTE ON CHRONIC DIASTOLIC (CONGESTIVE) HEART FAILURE (2) Chronic respiratory failure Code(s): J96.10 - CHRONIC RESPIRATORY FAILURE, UNSP W HYPOXIA OR HYPERCAPNIA (3) Diabetes Code(s): E11.9 - TYPE 2 DIABETES MELLITUS WITHOUT COMPLICATIONS (4) Epistaxis Assessment/Plan: Nasal packing to remain in place until next week, per ENT. F/u Hb (stable today: 9.1-->8.7 over the past 24 hours). 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 Code(s): Z93.0 - TRACHEOSTOMY STATUS (10) Sinus bradycardia Assessment/Plan: Improvement in resting HR; now usually in 50-60 bpm range. TMO < 0.02; TSH WNL. F/u history regarding PAF (on no anticoagulation: anemia, hemoptysis-->PRBCs; epistaxsis). Code(s): R00.1 - BRADYCARDIA, UNSPECIFIED (11) PAF (paroxysmal atrial fibrillation) Assessment/Plan: see under "sinus bradycardia" Code(s): I48.0 - PAROXYSMAL ATRIAL FIBRILLATION
--- NOTE | 2018-01-27 11:56 | PN ---
Progress Note (short form) - Note Progress Note: Subjective: The patient was seen and examined at the bedside, he is non-verbal and is not opening his eyes. Current Medications Generic Name Dose Route Start Last Admin Trade Name Jose PRN Reason Stop Dose Admin Baclofen 10 mg 01/22/18 22:00 01/27/18 15:01 Lioresal - GT 10 mg TID [facility] Administration Furosemide 40 mg 01/28/18 10:00 Lasix Injection - IVPUSH DAILY [facility] Ertapenem 0.5 gm/ Sodium 50 mls @ 100 mls/hr 01/25/18 10:00 01/27/18 11:18 Chloride IVPB 100 mls/hr DAILY [facility] Administration Protocol Insulin Aspart 1 vial 01/25/18 18:00 01/27/18 12:26 Novolog Vial Sliding Scale - SQ 2 units Q6HPO [facility] Administration Protocol Levothyroxine Sodium 37.5 mcg 01/23/18 07:00 01/27/18 06:36 Synthroid - PEG 37.5 mcg DAILY@0700 [facility] Administration Oxybutynin Chloride 5 mg 01/22/18 22:00 01/27/18 11:18 Ditropan - NGT 5 mg BID [facility] Administration Pantoprazole Sodium 40 mg 01/23/18 10:00 01/27/18 11:18 Protonix Iv IVPUSH 40 mg DAILY [facility] Administration Potassium Chloride 40 meq 01/27/18 12:00 01/27/18 12:26 Potassium Chloride Oral Liquid PO 40 meq DAILY [facility] Administration Sertraline HCl 25 mg 01/23/18 10:00 01/27/18 11:18 Zoloft - NR 25 mg DAILY [facility] Administration Sodium Chloride 2 spray 01/26/18 22:00 01/27/18 06:37 [place] Nasal [place] - NS 2 spray TID [facility] Administration Objective: Vital Signs Period Temp Pulse Resp BP Sys/Wills Pulse Ox Last 24 Hr 97 F-100.3 F 52-61 14-16 107-137/47-68 99 Physical Exam: General: Vented, non-verbal, not opening eyes HEENT: Left nare rhino rocket in place, dried blood Lungs: Scattered rhonchi anteriorly Heart: RRR, S1S2 Abd: + peg tube : + christopher Ext: B/l upper extremity contractures CBCD WBC 4.5 K/mm3 (4.0-10.0) 01/27/18 06:53 RBC 3.05 M/mm3 (4.00-5.60) L 01/27/18 06:53 Hgb 8.1 GM/dL (11.7-16.9) L 01/27/18 06:53 Hct 25.2 % (35.4-49) L 01/27/18 06:53 MCV 82.5 fl (80-96) 01/27/18 06:53 MCHC 32.1 g/dl (32.0-35.9) 01/27/18 06:53 RDW 22.7 % (11.9-15.9) H 01/27/18 06:53 Plt Count 156 K/MM3 (134-434) 01/27/18 06:53 MPV 9.7 fl (7.5-11.1) 01/27/18 06:53 CMP Sodium 149 mmol/L (136-145) H 01/27/18 06:53 Potassium 3.0 mmol/L (3.5-5.1) L 01/27/18 06:53 Chloride 110 mmol/L (98-107) H 01/27/18 06:53 Carbon Dioxide 30 mmol/L (21-32) 01/27/18 06:53 Anion Gap 9 (8-16) 01/27/18 06:53 BUN 91 mg/dL (7-18) H 01/27/18 06:53 Creatinine 2.2 mg/dL (0.7-1.3) H 01/27/18 06:53 Creat Clearance w eGFR 28.59 (>60) 01/27/18 06:53 Random Glucose 182 mg/dL (74-106) H 01/27/18 06:53 Calcium 7.9 mg/dL (8.5-10.1) L 01/27/18 06:53 Total Bilirubin 0.6 mg/dL (0.2-1.0) 01/27/18 06:53 AST 37 U/L (15-37) D 01/27/18 06:53 ALT 38 U/L (12-78) D 01/27/18 06:53 Alkaline Phosphatase 89 U/L (45-117) 01/27/18 06:53 Total Protein 6.1 g/dl (6.4-8.2) L 01/27/18 06:53 Albumin 2.0 g/dl (3.4-5.0) L 01/27/18 06:53 CARDIAC ENZYMES Creatine Kinase 59 IU/L (39-308) 01/21/18 15:00 Troponin I < 0.02 ng/ml (0.00-0.05) 01/21/18 15:00 Microbiology 01/26/18 12:13 Blood - Peripheral Venous Blood Culture - Preliminary NO GROWTH OBTAINED AFTER 24 HOURS, INCUBATION TO CONTINUE FOR 4 DAYS. 01/26/18 12:42 Blood - Peripheral Venous Blood Culture - Preliminary NO GROWTH OBTAINED AFTER 24 HOURS, INCUBATION TO CONTINUE FOR 4 DAYS. 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 Plan: 1) Fever - Patient low grade fever overnight 100.3 - Repeat cultures yesterday - Repeat chest x-ray: no significant change - Continue Ertapenem per ID 2) Epistaxis - Rhino rocket removed yesterday, no further bleeding - Appreciate ENT consult 3) Acute blood loss anemia - S/p 1u PRBC - Low iron saturation, IV iron x1 given - Transfuse per nephrology 4) Hemoptysis - Likely from epistaxis - Continue to monitor H/H - No further episodes 5) Proteus Mirabilus ESBL UTI - Continue Ertapenem 6) Chronic respiratory failure - Maintain vent settings 7) KATERIN on CKD - Continue IV lasix, decreased to once daily - Continue to monitor Cr - Maintain christopher catheter 8) Acute on chronic diastolic heart failure - Continue IV lasix 9) A.fib - Not on ac; anemia, hemoptysis, epistaxis - Rate controlled 10) DM - BGM q6h - ISS q6h 11) Hypothyroidism - Continue Synthroid 12) F/E/N: - Tube feeds - Hypernatremia: management per nephro - Hypokalemia: replete 13) Functional quadraplegia Visit type - Emergency Visit Emergency Visit: Yes ED Registration Date: 01/21/18 Care time: The patient presented to the Emergency Department on the above date and was hospitalized for further evaluation of their emergent condition. - New Patient This patient is new to me today: No - Critical Care Critical Care patient: No
--- NOTE | 2018-01-27 12:06 | PN ---
Progress Note, Physician History of Present Illness: pulmonary poorly responsive on vent support,ac mode - Current Medication List Current Medications: Active Medications Baclofen (Lioresal -) 10 mg GT TID [facility] Last Admin: 01/27/18 06:36 Dose: 10 mg Furosemide (Lasix Injection -) 40 mg IVPUSH BIDLASIX [facility] Last Admin: 01/27/18 06:36 Dose: 40 mg Ertapenem 0.5 gm/ Sodium (Chloride) 50 mls @ 100 mls/hr IVPB DAILY [facility]; Protocol Last Admin: 01/27/18 11:18 Dose: 100 mls/hr Insulin Aspart (Novolog Vial Sliding Scale -) 1 vial SQ Q6HPO [facility]; Protocol Last Admin: 01/27/18 06:37 Dose: 2 units Levothyroxine Sodium (Synthroid -) 37.5 mcg PEG DAILY@0700 [facility] Last Admin: 01/27/18 06:36 Dose: 37.5 mcg Oxybutynin Chloride (Ditropan -) 5 mg NGT BID [facility] Last Admin: 01/27/18 11:18 Dose: 5 mg Pantoprazole Sodium (Protonix Iv) 40 mg IVPUSH DAILY [facility] Last Admin: 01/27/18 11:18 Dose: 40 mg Potassium Chloride (Potassium Chloride Oral Liquid) 40 meq PO DAILY [facility] Sertraline HCl (Zoloft -) 25 mg NR DAILY [facility] Last Admin: 01/27/18 11:18 Dose: 25 mg Sodium Chloride ([place] Nasal [place] -) 2 spray NS TID [facility] Last Admin: 01/27/18 06:37 Dose: 2 spray - Objective Vital Signs: Vital Signs Temperature 98.6 F 01/27/18 10:00 Pulse Rate 52 L 01/27/18 10:00 Respiratory Rate 14 01/27/18 10:32 Blood Pressure 127/47 01/27/18 10:00 O2 Sat by Pulse Oximetry (%) 99 01/26/18 19:00 Constitutional: Yes: Well Nourished, Other (poorly responsive) Eyes: Yes: WNL HENT: Yes: WNL Neck: Yes: Supple (trach) Cardiovascular: Yes: Pulse Irregular, S1, S2 Respiratory: Yes: Diminished (scattered heather rhonchi), Rhonchi Gastrointestinal: Yes: Normal Bowel Sounds, Soft Extremities: Yes: WNL Edema: No Labs: CBC, BMP 01/27/18 06:53 01/27/18 06:53 INR, PTT INR 1.10 (0.82-1.09) 01/21/18 15:00 Problem List - Problems (1) A-fib Code(s): I48.91 - UNSPECIFIED ATRIAL FIBRILLATION (2) Acute on chronic diastolic CHF (congestive heart failure) Code(s): I50.33 - ACUTE ON CHRONIC DIASTOLIC (CONGESTIVE) HEART FAILURE (3) Chronic respiratory failure Code(s): J96.10 - CHRONIC RESPIRATORY FAILURE, UNSP W HYPOXIA OR HYPERCAPNIA (4) Diabetes Code(s): E11.9 - TYPE 2 DIABETES MELLITUS WITHOUT COMPLICATIONS (5) Epistaxis Code(s): R04.0 - EPISTAXIS (6) Hemoptysis Code(s): R04.2 - HEMOPTYSIS (7) TBI (traumatic brain injury) Code(s): S06.9X9A - UNSP INTRACRANIAL INJURY W LOC OF UNSP DURATION, INIT (8) Tracheostomy dependent Code(s): Z93.0 - TRACHEOSTOMY STATUS Assessment/Plan A/P Chronic Respiratory Failure Hemoptysis likely from Epistaxis Acute Blood Loss Anemia Acute Kidney Injury Atrial Fibrillation DM CHF h/o Traumatic Brain Injury - monitor/quantify hemoptysis - monitor H/H - transfuse as needed - lasix - monitor urine output, creatinine - replete lytes - O2 to keep SpO2 >90% - continue volume assist control - DVT/GI prophylaxis DR FORMAN
[2018-01-27] MEDS: POTASSIUM CHLORIDE ORAL LIQUID 20 MEQ/15 ML PO SCH (12:26)
--- NOTE | 2018-01-27 15:07 | PN ---
Progress Note, Physician History of Present Illness: continues to be poorly responsive no new issues continues to be on vent - Current Medication List Current Medications: Active Medications Baclofen (Lioresal -) 10 mg GT TID [facility] Last Admin: 01/27/18 15:01 Dose: 10 mg Furosemide (Lasix Injection -) 40 mg IVPUSH DAILY [facility] Ertapenem 0.5 gm/ Sodium (Chloride) 50 mls @ 100 mls/hr IVPB DAILY [facility]; Protocol Last Admin: 01/27/18 11:18 Dose: 100 mls/hr Insulin Aspart (Novolog Vial Sliding Scale -) 1 vial SQ Q6HPO [facility]; Protocol Last Admin: 01/27/18 12:26 Dose: 2 units Levothyroxine Sodium (Synthroid -) 37.5 mcg PEG DAILY@0700 [facility] Last Admin: 01/27/18 06:36 Dose: 37.5 mcg Oxybutynin Chloride (Ditropan -) 5 mg NGT BID [facility] Last Admin: 01/27/18 11:18 Dose: 5 mg Pantoprazole Sodium (Protonix Iv) 40 mg IVPUSH DAILY [facility] Last Admin: 01/27/18 11:18 Dose: 40 mg Potassium Chloride (Potassium Chloride Oral Liquid) 40 meq PO DAILY [facility] Last Admin: 01/27/18 12:26 Dose: 40 meq Sertraline HCl (Zoloft -) 25 mg NR DAILY [facility] Last Admin: 01/27/18 11:18 Dose: 25 mg Sodium Chloride ([place] Nasal [place] -) 2 spray NS TID [facility] Last Admin: 01/27/18 06:37 Dose: 2 spray - Objective Vital Signs: Vital Signs Temperature 98.5 F 01/27/18 13:25 Pulse Rate 61 01/27/18 13:25 Respiratory Rate 15 01/27/18 14:40 Blood Pressure 135/68 01/27/18 13:25 O2 Sat by Pulse Oximetry (%) 99 01/26/18 19:00 Constitutional: Yes: Other Cardiovascular: Yes: S1, S2 Respiratory: Yes: Mechanically Ventilated, Other (tracheostomy) Gastrointestinal: Yes: Normal Bowel Sounds, Soft Musculoskeletal: Yes: WNL Extremities: Yes: WNL Neurological: Yes: Other Psychiatric: Yes: Other Labs: CBC, BMP 01/27/18 06:53 01/27/18 06:53 INR, PTT INR 1.10 (0.82-1.09) 01/21/18 15:00 Assessment/Plan 87yo M with 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 He was found to have bright red bloody secretions suctioned from tracheostomy site.and now found to have esbl uti uti ac blood loos anemia Acute CHF Exacerbation S/p Tracheostomy Afib CKD DM2 Hypothyroidism plan continue abx finish abx course suctioning rest as per the teams and pul
--- NOTE | 2018-01-27 17:45 | PN ---
Progress Note (short form) - Note Progress Note: Renal follow up for KATERIN on CKD Pt seen and examined at the bedside poorly responsie on vent via trach making urine via christopher on 30% FiO2 Vital Signs Temperature 98.5 F 01/27/18 13:25 Pulse Rate 61 01/27/18 13:25 Respiratory Rate 15 01/27/18 14:40 Blood Pressure 135/68 01/27/18 13:25 O2 Sat by Pulse Oximetry (%) 99 01/26/18 19:00 Intake & Output 01/24/18 01/25/18 01/26/18 01/27/18 23:59 23:59 23:59 23:59 Intake Total 1920 1304 Output Total 1600 1600 1450 860 Balance 320 -296 -1450 -860 Weight 71.679 kg 70.777 kg 71.214 kg 71.69 kg NAD on Vent No JVD RRR, No M/R CTA trace sacral edema CBC, BMP 01/27/18 06:53 01/27/18 06:53 Current Medications Baclofen (Lioresal -) 10 mg GT TID [facility] Last Admin: 01/27/18 15:01 Dose: 10 mg Furosemide (Lasix Injection -) 40 mg IVPUSH DAILY [facility] Ertapenem 0.5 gm/ Sodium (Chloride) 50 mls @ 100 mls/hr IVPB DAILY [facility]; Protocol Last Admin: 01/27/18 11:18 Dose: 100 mls/hr Insulin Aspart (Novolog Vial Sliding Scale -) 1 vial SQ Q6HPO [facility]; Protocol Last Admin: 01/27/18 12:26 Dose: 2 units Levothyroxine Sodium (Synthroid -) 37.5 mcg PEG DAILY@0700 [facility] Last Admin: 01/27/18 06:36 Dose: 37.5 mcg Oxybutynin Chloride (Ditropan -) 5 mg NGT BID [facility] Last Admin: 01/27/18 11:18 Dose: 5 mg Pantoprazole Sodium (Protonix Iv) 40 mg IVPUSH DAILY [facility] Last Admin: 01/27/18 11:18 Dose: 40 mg Potassium Chloride (Potassium Chloride Oral Liquid) 40 meq PO DAILY [facility] Last Admin: 01/27/18 12:26 Dose: 40 meq Sertraline HCl (Zoloft -) 25 mg NR DAILY [facility] Last Admin: 01/27/18 11:18 Dose: 25 mg Sodium Chloride ([place] Nasal [place] -) 2 spray NS TID [facility] Last Admin: 01/27/18 06:37 Dose: 2 spray 87 year old gentleman with PMhx of Traumatic brain injury now vented via trach with PEG, DM, CKD, CHF, Afib who presented with bright red blood from ET suctioning and found have acute anemia and Cr of 2. #KATERIN/CKD #Bleeding from ET tube #B/L Pleural effusions #Acute on Chronic Anemia #Hypernatremia #Proteinuria #Possible UTI #Hypokalemia Renal function stable and pt is non-oliguric Trend BUN/Cr, urine output and weight on once daily Lasix CXR w/o much changes supplement K via G-tube Check Mg levels as well continue abx as per ID continue tube feeds with free water Frank Ayoub DO
[2018-01-27 20:43] LABS: URINE APPEARANCE CLEAR; URINE BILIRUBIN NEGATIVE (<2.0 mg/dL); URINE BLOOD 3+ (NEGATIVE); URINE COLOR YELLOW; URINE GLUCOSE (UA) NEGATIVE (NEGATIVE); URINE KETONE NEGATIVE (NEGATIVE); URINE LEUK ESTERASE TRACE (NEGATIVE); URINE NITRITE NEGATIVE (NEGATIVE); URINE UROBILINOGEN NEGATIVE mg/dL (0.2-1.0)
[2018-01-27 21:00] LABS: URINE PROTEIN 2+ (NEGATIVE)
[2018-01-27 22:32] LABS: URINE BACTERIA RARE /hpf (NONE SEEN); URINE HYALINE CAST 3 /lpf
[2018-01-28] MEDS: LEVOTHYROXINE NA 25 MCG TABLET (FP) PEG SCH (06:33)
[2018-01-28] MEDS: BACLOFEN 10 MG TABLET (FP) GT SCH ×3 (06:33→22:31)
[2018-01-28] MEDS: INSULIN SLIDING SCALE (NOVOLOG) 1 VIAL SQ SCH ×3 (06:34→17:13)
[2018-01-28] MEDS: SODIUM CHLORIDE NASAL SPRAY 44 ML BOTTLE NS SCH ×3 (06:35→22:32)
[2018-01-28 08:25] LABS: HEMATOCRIT 25.2 % (35.4-49); HEMOGLOBIN 8.1 GM/dL (11.7-16.9); MCH 26.6 pg (25.7-33.7); MCHC 32.4 g/dl (32.0-35.9); MEAN CELL VOLUME 82.3 fl (80-96); MEAN PLT VOLUME 9.5 fl (7.5-11.1); PLATELET COUNT 144 K/MM3 (134-434); RBC 3.06 M/mm3 (4.00-5.60); RDW 22.4 % (11.9-15.9); WHITE BLOOD COUNT 6.1 K/mm3 (4.0-10.0)
[2018-01-28 08:51] LABS: CHLORIDE 109 mmol/L (98-107); SODIUM 147 mmol/L (136-145)
[2018-01-28 09:09] LABS: ALK PHOS 116 U/L (45-117); ANION GAP 10 (8-16); BILIRUBIN,TOTAL 0.4 mg/dL (0.2-1.0); BLOOD UREA NITROGEN 94 mg/dL (7-18); CO2 28 mmol/L (21-32); CREATININE 2.3 mg/dL (0.7-1.3); GLUCOSE,RANDOM 251 mg/dL (74-106); MAGNESIUM 2.2 mg/dL (1.8-2.4); PHOSPHOROUS 4.2 mg/dL (2.5-4.9); SGOT/AST 101 U/L (15-37); SGPT/ALT 73 U/L (12-78); TOT PROT 6.2 g/dl (6.4-8.2)
[2018-01-28 09:13] LABS: POTASSIUM 2.9 mmol/L (3.5-5.1)
[2018-01-28] MEDS: POTASSIUM CHLORIDE ORAL LIQUID 20 MEQ/15 ML PO SCH (10:26)
[2018-01-28] MEDS: PANTOPRAZOLE SODIUM 40 MG VIAL IVPUSH SCH (10:26)
[2018-01-28] MEDS: FUROSEMIDE 40 MG/4 ML INJECTABLE VIAL IVPUSH SCH (10:27)
[2018-01-28] MEDS: ERTAPENEM SODIUM 0.5 GM in SODIUM CHLORIDE 50 ML IVPB SCH (10:27)
[2018-01-28] MEDS: OXYBUTYNIN CHLORIDE 5 MG TABLET NGT SCH ×2 (10:27→22:31)
[2018-01-28] MEDS: SERTRALINE HCL 25 MG TABLET (FP) NR SCH (10:27)
[2018-01-28] MEDS ORDERED: KCL 10 MEQ IVPB 10 MEQ/100 ML INFUS.BAG IVPB SCH (11:00)
--- NOTE | 2018-01-28 11:35 | PN ---
Progress Note (short form) - Note Progress Note: PULMONARY Vented, poorly responsive. No fevers recorded. Last Vital Signs Temp Pulse Resp BP Pulse Ox 98.9 F 50 L 14 128/65 97 01/28/18 06:00 01/28/18 08:41 01/28/18 11:27 01/28/18 06:00 01/28/18 10:30 Gen: vented, poorly responsive Heart: RRR Lung: scattered rhonchi Abd: soft, nontender Ext: no edema CBC, BMP 01/28/18 08:00 01/28/18 08:00 Active Medications Baclofen (Lioresal -) 10 mg GT TID [facility] Last Admin: 01/28/18 06:33 Dose: 10 mg Furosemide (Lasix Injection -) 40 mg IVPUSH DAILY [facility] Last Admin: 01/28/18 10:27 Dose: 40 mg Ertapenem 0.5 gm/ Sodium (Chloride) 50 mls @ 100 mls/hr IVPB DAILY [facility]; Protocol Last Admin: 01/28/18 10:27 Dose: 100 mls/hr Potassium Chloride (Potassium Chloride 10 Meq Premix Ivpb -) 10 meq in 100 mls @ 100 mls/hr IVPB Q60M [facility] Stop: 01/28/18 12:59 Insulin Aspart (Novolog Vial Sliding Scale -) 1 vial SQ Q6HPO [facility]; Protocol Last Admin: 01/28/18 06:34 Dose: 8 units Levothyroxine Sodium (Synthroid -) 37.5 mcg PEG DAILY@0700 [facility] Last Admin: 01/28/18 06:33 Dose: 37.5 mcg Oxybutynin Chloride (Ditropan -) 5 mg NGT BID [facility] Last Admin: 01/28/18 10:27 Dose: 5 mg Pantoprazole Sodium (Protonix Iv) 40 mg IVPUSH DAILY [facility] Last Admin: 01/28/18 10:26 Dose: 40 mg Potassium Chloride (Potassium Chloride Oral Liquid) 40 meq PO DAILY [facility] Last Admin: 01/28/18 10:26 Dose: 40 meq Sertraline HCl (Zoloft -) 25 mg NR DAILY [facility] Last Admin: 01/28/18 10:27 Dose: 25 mg Sodium Chloride ([place] Nasal [place] -) 2 spray NS TID [facility] Last Admin: 01/28/18 06:35 Dose: 2 spray A/P Chronic Respiratory Failure Hemoptysis likely from Epistaxis Acute Blood Loss Anemia Acute Kidney Injury Atrial Fibrillation DM CHF h/o Traumatic Brain Injury - monitor H/H - transfuse as needed - continue lasix - monitor urine output, creatinine - replete lytes - O2 to keep SpO2 >90% - continue volume assist control - poor candidate for weaning at this time - DVT/GI prophylaxis
--- NOTE | 2018-01-28 11:45 | PN ---
Physical Exam: SUBJECTIVE: Patient seen and examined at bedside. Minimally responsive. OBJECTIVE: Vital Signs Period Temp Pulse Resp BP Sys/Wills Pulse Ox Last 24 Hr 98.5 F-99.7 F 50-61 14-16 125-135/54-74 97-97 GENERAL: Somnolent; opens eyes to voice, does not follow commands. On vent. Trach collar in place, dressing c/d/i, no bleeding LUNGS: Breath sounds equal, clear to auscultation bilaterally HEART: Regular rate and rhythm, S1, S2 ABDOMEN: Soft, nontender, nondistended, normoactive bowel sounds, no guarding, no rebound EXTREMITIES: 2+ pulses, warm, well-perfused, no edema. No calf tenderness Laboratory Results - last 24 hr 01/27/18 01/27/18 01/27/18 03:31 12:24 18:25 WBC RBC Hgb Hct MCV MCH MCHC RDW Plt Count MPV Sodium Potassium Chloride Carbon Dioxide Anion Gap BUN Creatinine Creat Clearance w eGFR POC Glucometer 180 245 Random Glucose Calcium Phosphorus Magnesium Total Bilirubin AST ALT Alkaline Phosphatase Total Protein Albumin Urine Color Yellow Urine Appearance Clear Urine pH 6.0 D Ur Specific [place] 1.012 Urine Protein 2+ H Urine Glucose (UA) Negative Urine Ketones Negative Urine Blood 3+ H Urine Nitrite Negative Urine Bilirubin Negative Urine Urobilinogen Negative Ur Leukocyte Esterase Trace Urine WBC (Auto) 6 Urine RBC (Auto) 69 Urine Bacteria Rare Hyaline Casts 3 01/27/18 01/28/18 01/28/18 23:04 06:32 08:00 WBC RBC Hgb Hct MCV MCH MCHC RDW Plt Count MPV Sodium 147 H Potassium 2.9 L* Chloride 109 H Carbon Dioxide 28 Anion Gap 10 BUN 94 H Creatinine 2.3 H Creat Clearance w eGFR 27.16 POC Glucometer 231 313 Random Glucose 251 H D Calcium 8.0 L Phosphorus 4.2 Magnesium 2.2 Total Bilirubin 0.4 D AST 101 H D ALT 73 D Alkaline Phosphatase 116 D Total Protein 6.2 L Albumin 2.0 L Urine Color Urine Appearance Urine pH Ur Specific [place] Urine Protein Urine Glucose (UA) Urine Ketones Urine Blood Urine Nitrite Urine Bilirubin Urine Urobilinogen Ur Leukocyte Esterase Urine WBC (Auto) Urine RBC (Auto) Urine Bacteria Hyaline Casts 01/28/18 08:00 WBC 6.1 D RBC 3.06 L Hgb 8.1 L Hct 25.2 L MCV 82.3 MCH 26.6 MCHC 32.4 RDW 22.4 H Plt Count 144 MPV 9.5 Sodium Potassium Chloride Carbon Dioxide Anion Gap BUN Creatinine Creat Clearance w eGFR POC Glucometer Random Glucose Calcium Phosphorus Magnesium Total Bilirubin AST ALT Alkaline Phosphatase Total Protein Albumin Urine Color Urine Appearance Urine pH Ur Specific [place] Urine Protein Urine Glucose (UA) Urine Ketones Urine Blood Urine Nitrite Urine Bilirubin Urine Urobilinogen Ur Leukocyte Esterase Urine WBC (Auto) Urine RBC (Auto) Urine Bacteria Hyaline Casts Active Medications Generic Name Dose Route Start Last Admin Trade Name Freq PRN Reason Stop Dose Admin Baclofen 10 mg 01/22/18 22:00 01/28/18 06:33 Lioresal - GT 10 mg TID LILIA Administration Furosemide 40 mg 01/28/18 10:00 01/28/18 10:27 Lasix Injection - IVPUSH 40 mg DAILY LILIA Administration Ertapenem 0.5 gm/ Sodium 50 mls @ 100 mls/hr 01/25/18 10:00 01/28/18 10:27 Chloride IVPB 100 mls/hr DAILY LILIA Administration Protocol Potassium Chloride 10 meq in 100 mls @ 100 mls/hr 01/28/18 11:00 Potassium Chloride 10 Meq Premix Ivpb - IVPB 01/28/18 12:59 Q60M LILIA Insulin Aspart 1 vial 01/25/18 18:00 01/28/18 06:34 Novolog Vial Sliding Scale - SQ 8 units Q6HPO LILIA Administration Protocol Levothyroxine Sodium 37.5 mcg 01/23/18 07:00 01/28/18 06:33 Synthroid - PEG 37.5 mcg DAILY@0700 LILIA Administration Oxybutynin Chloride 5 mg 01/22/18 22:00 01/28/18 10:27 Ditropan - NGT 5 mg BID LILIA Administration Pantoprazole Sodium 40 mg 01/23/18 10:00 01/28/18 10:26 Protonix Iv IVPUSH 40 mg DAILY LILIA Administration Potassium Chloride 40 meq 01/27/18 12:00 01/28/18 10:26 Potassium Chloride Oral Liquid PO 40 meq DAILY LILIA Administration Sertraline HCl 25 mg 01/23/18 10:00 01/28/18 10:27 Zoloft - NR 25 mg DAILY LILIA Administration Sodium Chloride 2 spray 01/26/18 22:00 01/28/18 06:35 [place] Nasal [place] - NS 2 spray TID LILIA Administration ASSESSMENT/PLAN: 87 year-old male with PMH significant for diastolic heart failure, NIDDM, CKD, and 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 Admitted for bleeding around the trach site. Proteus ESBL UTI --afebrile 48 hours; no leukocytosis --continue ertapenem (day #4) --01/26 blood cultures NGTD --01/27 repeat urine culture pending Bleeding from several sites, resolved --Epistaxis, resolved --Hemoptysis likely from epistaxis, resolved --Trach oozing, resolved Acute blood loss anemia --transfused 1U PRBC on 01/21, h/h has trended back down from 9.1 to 8.1 - Low iron saturation, IV iron given, second dose today --GI consult requested Chronic respiratory failure --oxygen requirements have remained steady despite large bilateral pleural effusions KATERIN on CKD --Lasix IV decreased to daily --continue to monitor Cr --maintain christopher catheter Acute on chronic diastolic heart failure --continue IV lasix A.fib --continue --not on anti-coagulation due to anemia, bleeding issues NIDDM --Novolog sliding scale coverage Hypothyroidism -continue levothyroxine Functional quadraplegia FEN Fluids/Nutrition: Electrolytes: replete as indicated DVT prophylaxis Physical therapy Dispo: continues to require inpatient care. Full code. Visit type - Emergency Visit Emergency Visit: Yes ED Registration Date: 01/21/18 Care time: The patient presented to the Emergency Department on the above date and was hospitalized for further evaluation of their emergent condition. - New Patient This patient is new to me today: Yes Date on this admission: 01/28/18 - Critical Care Critical Care patient: No
--- NOTE | 2018-01-28 12:24 | PN ---
Progress Note, Physician History of Present Illness: poorly responsive vented afebrile no gross change - Current Medication List Current Medications: Active Medications Baclofen (Lioresal -) 10 mg GT TID [facility] Last Admin: 01/28/18 06:33 Dose: 10 mg Furosemide (Lasix Injection -) 40 mg IVPUSH DAILY [facility] Last Admin: 01/28/18 10:27 Dose: 40 mg Ertapenem 0.5 gm/ Sodium (Chloride) 50 mls @ 100 mls/hr IVPB DAILY [facility]; Protocol Last Admin: 01/28/18 10:27 Dose: 100 mls/hr Potassium Chloride 10 meq/ (Sodium Chloride) 105 mls @ 100 mls/hr IVPB Q60M [facility] Stop: 01/28/18 12:59 Iron Sucrose 100 mg/ Sodium (Chloride) 100 mls @ 200 mls/hr IVPB ONCE ONE Stop: 01/28/18 13:44 Insulin Aspart (Novolog Vial Sliding Scale -) 1 vial SQ Q6HPO [facility]; Protocol Last Admin: 01/28/18 06:34 Dose: 8 units Levothyroxine Sodium (Synthroid -) 37.5 mcg PEG DAILY@0700 [facility] Last Admin: 01/28/18 06:33 Dose: 37.5 mcg Oxybutynin Chloride (Ditropan -) 5 mg NGT BID [facility] Last Admin: 01/28/18 10:27 Dose: 5 mg Pantoprazole Sodium (Protonix Iv) 40 mg IVPUSH DAILY [facility] Last Admin: 01/28/18 10:26 Dose: 40 mg Potassium Chloride (Potassium Chloride Oral Liquid) 40 meq PO DAILY [facility] Last Admin: 01/28/18 10:26 Dose: 40 meq Sertraline HCl (Zoloft -) 25 mg NR DAILY [facility] Last Admin: 01/28/18 10:27 Dose: 25 mg Sodium Chloride ([place] -) 2 spray NS TID [facility] Last Admin: 01/28/18 06:35 Dose: 2 spray - Objective Vital Signs: Vital Signs Temperature 98.9 F 01/28/18 06:00 Pulse Rate 50 L 01/28/18 10:00 Respiratory Rate 14 01/28/18 11:27 Blood Pressure 126/68 01/28/18 10:00 O2 Sat by Pulse Oximetry (%) 97 01/28/18 10:30 Constitutional: Yes: Other Cardiovascular: Yes: S1, S2 Respiratory: Yes: Intubated, Mechanically Ventilated Gastrointestinal: Yes: Normal Bowel Sounds, Soft Musculoskeletal: Yes: WNL Extremities: Yes: WNL Neurological: Yes: Other Psychiatric: Yes: Other Labs: CBC, BMP 01/28/18 08:00 01/28/18 08:00 INR, PTT INR 1.10 (0.82-1.09) 01/21/18 15:00 Assessment/Plan 87yo M with 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 He was found to have bright red bloody secretions suctioned from tracheostomy site.and now found to have esbl uti uti ac blood loos anemia Acute CHF Exacerbation S/p Tracheostomy Afib CKD DM2 Hypothyroidism plan continue abx finish abx course suctioning rest as per the teams and pul nutrition
[2018-01-28] MEDS ORDERED: IRON SUCROSE INJECTION 100 MG in SODIUM CHLORIDE 95 ML IVPB ONE (13:15)
[2018-01-28] MEDS: POTASSIUM CHLORIDE 10 MEQ in SODIUM CHLORIDE 100 ML IVPB SCH ×2 (13:50→14:51)
--- NOTE | 2018-01-28 14:56 | PN ---
Progress Note, Physician Chief Complaint: Pt remains uncommunicative History of Present Illness: This is an 87 yr old white man with h/o traumatic fall down stairs (admitted to [facility] about a month ago and had neck/back surgery, tracheotomy placement 2016 now with traumatic brain injury (TBI), ventilator dependent, and PEG tube placement), recent aspiration PNA, A-fib, CHF, DM, renal failure, TBI, legally blind and deaf; who is BIBA from [facility] in [place] for blood with clots suctioned from his tracheostomy tube yesterday , as well as anemia detected on his lab work today. 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 Per conversation with attending Dr. Yadiel Gallegos at [facility], yesterday the patient was noted to have bloody secretions suctioned from tracheostomy site , so CBC was checked. His Hct was 24 yesterday, which was down ~10 points from his prior values. They re-checked it again today and Hct was 21. [facility] checked his urine and there was a small amount of blood in it (not enough to explain the Hct drop). Their primary concern has been for GI bleed and FOBT was ordered but had not resulted at the time the patient was sent here. Received his noon medications and simethicone and a portion of his noon PEG tube feeding (had to be stopped early for transport). - Current Medication List Current Medications: Active Medications Baclofen (Lioresal -) 10 mg GT TID [facility] Last Admin: 01/28/18 13:50 Dose: 10 mg Furosemide (Lasix Injection -) 40 mg IVPUSH DAILY [facility] Last Admin: 01/28/18 10:27 Dose: 40 mg Ertapenem 0.5 gm/ Sodium (Chloride) 50 mls @ 100 mls/hr IVPB DAILY [facility]; Protocol Last Admin: 01/28/18 10:27 Dose: 100 mls/hr Insulin Aspart (Novolog Vial Sliding Scale -) 1 vial SQ Q6HPO LILIA; Protocol Last Admin: 01/28/18 12:42 Dose: 4 units Levothyroxine Sodium (Synthroid -) 37.5 mcg PEG DAILY@0700 [facility] Last Admin: 01/28/18 06:33 Dose: 37.5 mcg Oxybutynin Chloride (Ditropan -) 5 mg NGT BID [facility] Last Admin: 01/28/18 10:27 Dose: 5 mg Pantoprazole Sodium (Protonix Iv) 40 mg IVPUSH DAILY [facility] Last Admin: 01/28/18 10:26 Dose: 40 mg Potassium Chloride (Potassium Chloride Oral Liquid) 40 meq PO DAILY [facility] Last Admin: 01/28/18 10:26 Dose: 40 meq Sertraline HCl (Zoloft -) 25 mg NR DAILY [facility] Last Admin: 01/28/18 10:27 Dose: 25 mg Sodium Chloride ([place] Nasal [place] -) 2 spray NS TID [facility] Last Admin: 01/28/18 13:50 Dose: 2 spray - Objective Vital Signs: Vital Signs Temperature 98.9 F 01/28/18 06:00 Pulse Rate 50 L 01/28/18 10:00 Respiratory Rate 14 01/28/18 11:27 Blood Pressure 126/68 01/28/18 10:00 O2 Sat by Pulse Oximetry (%) 97 01/28/18 10:30 Labs: CBC, BMP 01/28/18 08:00 01/28/18 08:00 INR, PTT INR 1.10 (0.82-1.09) 01/21/18 15:00 Problem List - Problems (1) Acute on chronic diastolic CHF (congestive heart failure) Assessment/Plan: ECHO: normal LVEF; mild-moderate MR On furosemide; may require restarting the dose, in view of further congestion; discussed with adult services librarian. F/u BUN/Cr, electrolytes, daily weight, Is and Os. Code(s): I50.33 - ACUTE ON CHRONIC DIASTOLIC (CONGESTIVE) HEART FAILURE (2) Chronic respiratory failure Code(s): J96.10 - CHRONIC RESPIRATORY FAILURE, UNSP W HYPOXIA OR HYPERCAPNIA (3) Diabetes Code(s): E11.9 - TYPE 2 DIABETES MELLITUS WITHOUT COMPLICATIONS (4) Epistaxis Assessment/Plan: No further discharge. F/u Hb (stable today) Code(s): R04.0 - EPISTAXIS (5) Hemoptysis Code(s): R04.2 - HEMOPTYSIS (6) Hypothyroid Assessment/Plan: TSH wnl; on Synthroid Code(s): E03.9 - HYPOTHYROIDISM, UNSPECIFIED (7) S/P percutaneous endoscopic gastrostomy (PEG) tube placement Code(s): Z93.1 - GASTROSTOMY STATUS (8) TBI (traumatic brain injury) Code(s): S06.9X9A - UNSP INTRACRANIAL INJURY W LOC OF UNSP DURATION, INIT (9) Tracheostomy dependent Code(s): Z93.0 - TRACHEOSTOMY STATUS (10) Sinus bradycardia Code(s): R00.1 - BRADYCARDIA, UNSPECIFIED (11) PAF (paroxysmal atrial fibrillation) Code(s): I48.0 - PAROXYSMAL ATRIAL FIBRILLATION (12) Hypokalemia Code(s): E87.6 - HYPOKALEMIA
--- NOTE | 2018-01-28 15:16 | CON.GI ---
Consult Consult Specialty:: GI Reason for Consultation:: anemia - History of Present Illness History of Present Illness: Chart reviewed. Events noted. An 87-year-old gentleman status post traumatic fall, Status post back surgery, aspiration pneumonia, respiratory failure, on ventilator, with gastrostomy tube, minimally responsive was admitted for upper respiratory tract bleeding and hemoglobin of 7 g/dL. GI was called to evaluate anemia. The patient continues to be anemic with hemoglobin fluctuated between 7 and 8 g/dL without overt signs of gastrointestinal blood loss, hemodynamic instability. There is no hematochezia, hematemesis, coffee ground vomiting, or melena reported, or documented. 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) Cardio/Vascular: Yes: AFIB, CHF, HTN Pulmonary: Yes: Other (s/p Tach, vent dependent) Psych: Yes: Other Endocrine: Yes: Diabetes Mellitus - Past Surgical History Additional Surgical History: tracheostomy - Alcohol/Substance Use Hx Alcohol Use: No - Smoking History Smoking history: Unknown if ever smoked Have you smoked in the past 12 months: No Home Medications - Allergies Allergies/Adverse Reactions: Allergies Allergy/AdvReac Type Severity Reaction Status Date / Time No Known Allergies Allergy Verified 01/21/18 14:27 - Home Medications Home Medications: Ambulatory Orders Acetaminophen [Tylenol] 650 mg PO Q6H PRN 01/21/18 Aspirin Coated [Ecotrin -] 325 mg GT DAILY 01/21/18 Bacitracin - [Bacitracin Topical Ointment -] 1 applic TP TID 01/21/18 Baclofen 10 mg GT Q8H 01/21/18 Balsam [place] Oil [Venelex Ointment] 1 applic TP BID 01/21/18 Docusate Sodium [Colace -] 100 mg GT ASDIR 01/21/18 Ferrous Sulfate [Feosol] 300 mg GT DAILY 01/21/18 Furosemide [Lasix -] 40 mg GT DAILY 01/21/18 Glycopyrrolate/Formoterol Fum [Bevespi Aerosphere Inhaler] 0 gm IH BID 01/21/18 Heparin - 5,000 unit SQ BID 01/21/18 Hypromellose 0.5% Opth Soln [Artificial Tears] 2 drop OU BID 01/21/18 Insulin Glargine,Hum.rec.anlog [Lantus Solostar PEN (NF)] 9 units SQ HS Insulin Lispro [Humalog] 0 unit SQ Q6H 01/21/18 L.acidoph,Paracasei, B.lactis [Probiotic] 1 each GT DAILY 01/21/18 Lanolin/Mineral Oil [Eucerin Original Lotion] 1 applic TP Q6H 01/21/18 Levothyroxine Sodium [Synthroid] 37.5 mcg GT BID 01/21/18 Nut.tx.gluc.intoler,Lac-Fr,Soy [Glucerna 1.5 Bob] 237 ml GT Q6H 01/21/18 Oxybutynin Chloride 5 mg GT BID 01/21/18 Ranitidine [Zantac -] 150 mg GT DAILY 01/21/18 Sertraline HCl [Zoloft] 25 mg GT DAILY 01/21/18 Silver Sulfadiazine 1% Top Cr [Silvadene -] 1 applic TP DAILY 01/21/18 Simethicone 40 mg GT Q6H 01/21/18 Simvastatin 20 mg GT DAILY 01/21/18 Tamsulosin HCl 0.4 mg GT DAILY 01/21/18 Zinc Oxide 1 applic TP BID 01/21/18 Family Disease History - Family Disease History Family History: Unremarkable (noncontributory) Review of Systems Findings/Remarks: as per H&P and HPI Physical Exam-GI Vital Signs: Vital Signs Temperature 98.9 F 01/28/18 06:00 Pulse Rate 50 L 01/28/18 10:00 Respiratory Rate 14 01/28/18 11:27 Blood Pressure 126/68 01/28/18 10:00 O2 Sat by Pulse Oximetry (%) 97 01/28/18 10:30 Labs: CBC, BMP 01/28/18 08:00 01/28/18 08:00 INR, PTT INR 1.10 (0.82-1.09) 01/21/18 15:00 Problem List - Problems (1) Hemorrhage from tracheostomy stoma Code(s): J95.01 - HEMORRHAGE FROM TRACHEOSTOMY STOMA (2) Acute on chronic diastolic CHF (congestive heart failure) Code(s): I50.33 - ACUTE ON CHRONIC DIASTOLIC (CONGESTIVE) HEART FAILURE (3) Chronic respiratory failure Code(s): J96.10 - CHRONIC RESPIRATORY FAILURE, UNSP W HYPOXIA OR HYPERCAPNIA (4) Diabetes Code(s): E11.9 - TYPE 2 DIABETES MELLITUS WITHOUT COMPLICATIONS (5) Epistaxis Code(s): R04.0 - EPISTAXIS Assessment/Plan an 87-year-old debilitating, frail patient with chronic anemia without stigmata of recent, or ongoing gastrointestinal blood loss who was dmitted it with upper respiratory tract bleeding (per tracheostomy stoma and later epistaxis). Continue current care, G-tube feeds with aspiration precautions, and close monitoring for signs and symptoms of gastrointestinal bleeding. Supplement iron as needed. Keep hemoglobin above 7. No need for endoscopic workup of anemia at this time. We will follow.
--- NOTE | 2018-01-28 17:27 | PN ---
Progress Note (short form) - Note Progress Note: Renal follow up for KATERIN on CKD Pt seen and examined at the bedside on vent, 30% FiO2 making urine no overnight events Vital Signs Temperature 98.6 F 01/28/18 15:00 Pulse Rate 53 L 01/28/18 15:00 Respiratory Rate 14 01/28/18 15:00 Blood Pressure 127/63 01/28/18 15:00 O2 Sat by Pulse Oximetry (%) 97 01/28/18 10:30 Intake & Output 01/25/18 01/26/18 01/27/18 01/28/18 23:59 23:59 23:59 23:59 Intake Total 1304 1140 1190 1404 Output Total 1600 1450 1310 400 Balance -296 -310 -120 1004 Weight 70.777 kg 71.214 kg 71.69 kg 72.121 kg NAD on Vent No JVD RRR, No M/R CTA trace sacral edema CBC, BMP 01/28/18 08:00 01/28/18 08:00 Intake & Output 01/25/18 01/26/18 01/27/18 01/28/18 23:59 23:59 23:59 23:59 Intake Total 1304 1140 1190 1404 Output Total 1600 1450 1310 400 Balance -296 -310 -120 1004 Weight 70.777 kg 71.214 kg 71.69 kg 72.121 kg 87 year old gentleman with PMhx of Traumatic brain injury now vented via trach with PEG, DM, CKD, CHF, Afib who presented with bright red blood from ET suctioning and found have acute anemia and Cr of 2. #KATERIN/CKD #Bleeding from ET tube #B/L Pleural effusions #Acute on Chronic Anemia #Hypernatremia #Proteinuria #Possible UTI #Hypokalemia Renal function essentially unchanged appears as if the weights are uptrending, if it continues to do so into tomorrow may warrent BID Lasix continue free water cardiology and pulmonary follow up continue tube feeds will follow supplement K via IV and G-tube Frank Ayoub DO
[2018-01-29] MEDS: INSULIN SLIDING SCALE (NOVOLOG) 1 VIAL SQ SCH ×4 (00:26→17:03)
[2018-01-29] MEDS: SODIUM CHLORIDE NASAL SPRAY 44 ML BOTTLE NS SCH ×4 (06:25→21:44)
[2018-01-29] MEDS: LEVOTHYROXINE NA 25 MCG TABLET (FP) PEG SCH (06:25)
[2018-01-29] MEDS: BACLOFEN 10 MG TABLET (FP) GT SCH ×3 (06:25→21:44)
[2018-01-29] MEDS: SERTRALINE HCL 25 MG TABLET (FP) NR SCH (09:01)
[2018-01-29] MEDS: OXYBUTYNIN CHLORIDE 5 MG TABLET NGT SCH ×2 (09:01→21:44)
[2018-01-29] MEDS: POTASSIUM CHLORIDE ORAL LIQUID 20 MEQ/15 ML PO SCH ×3 (09:01→17:00)
--- NOTE | 2018-01-29 09:26 | PN ---
Physical Exam: SUBJECTIVE: Patient seen and examined OBJECTIVE: Vital Signs Period Temp Pulse Resp BP Sys/Wills Pulse Ox Last 24 Hr 97.9 F-98.9 F 50-56 14-16 124-131/54-68 97-99 GENERAL: The patient is awake, alert, and fully oriented, in no acute distress. HEAD: Normal with no signs of trauma. EYES: PERRL, extraocular movements intact, sclera anicteric, conjunctiva clear. No ptosis. ENT: Ears normal, nares patent, oropharynx clear without exudates, moist mucous membranes. NECK: Trachea midline, full range of motion, supple. LUNGS: Breath sounds equal, clear to auscultation bilaterally, no wheezes, no crackles, no accessory muscle use. HEART: Regular rate and rhythm, S1, S2 without murmur, rub or gallop. ABDOMEN: Soft, nontender, nondistended, normoactive bowel sounds; PEG tube, surrounding skin excoriated with minimum pus drainage EXTREMITIES: 2+ pulses, warm, well-perfused, no edema. CBCD WBC 4.2 K/mm3 (4.0-10.0) D 01/29/18 09:35 RBC 3.23 M/mm3 (4.00-5.60) L 01/29/18 09:35 Hgb 8.5 GM/dL (11.7-16.9) L 01/29/18 09:35 Hct 26.6 % (35.4-49) L 01/29/18 09:35 MCV 82.3 fl (80-96) 01/29/18 09:35 MCHC 32.1 g/dl (32.0-35.9) 01/29/18 09:35 RDW 22.0 % (11.9-15.9) H 01/29/18 09:35 Plt Count 164 K/MM3 (134-434) 01/29/18 09:35 MPV 10.2 fl (7.5-11.1) 01/29/18 09:35 CMP Sodium 147 mmol/L (136-145) H 01/29/18 09:35 Potassium 3.1 mmol/L (3.5-5.1) L 01/29/18 09:35 Chloride 111 mmol/L (98-107) H 01/29/18 09:35 Carbon Dioxide 28 mmol/L (21-32) 01/29/18 09:35 Anion Gap 8 (8-16) 01/29/18 09:35 BUN 95 mg/dL (7-18) H 01/29/18 09:35 Creatinine 2.1 mg/dL (0.7-1.3) H 01/29/18 09:35 Creat Clearance w eGFR 30.17 (>60) 01/29/18 09:35 Calcium 7.7 mg/dL (8.5-10.1) L 01/29/18 09:35 Total Bilirubin 0.4 mg/dL (0.2-1.0) 01/29/18 09:35 AST 87 U/L (15-37) H 01/29/18 09:35 ALT 77 U/L (12-78) 01/29/18 09:35 Alkaline Phosphatase 111 U/L (45-117) 01/29/18 09:35 Total Protein 6.3 g/dl (6.4-8.2) L 01/29/18 09:35 Albumin 2.0 g/dl (3.4-5.0) L 01/29/18 09:35 Laboratory Results - last 24 hr 01/28/18 01/28/18 01/28/18 12:40 17:12 23:22 POC Glucometer 220 282 209 01/29/18 05:35 POC Glucometer 201 Active Medications Generic Name Dose Route Start Last Admin Trade Name Amadorq PRN Reason Stop Dose Admin Baclofen 10 mg 01/22/18 22:00 01/29/18 06:25 Lioresal - GT 10 mg TID [facility]ILIA Administration Furosemide 40 mg 01/28/18 10:00 01/28/18 10:27 Lasix Injection - IVPUSH 40 mg DAILY [facility] Administration Ertapenem 0.5 gm/ Sodium 50 mls @ 100 mls/hr 01/25/18 10:00 01/28/18 10:27 Chloride IVPB 100 mls/hr DAILY [facility] Administration Protocol Insulin Aspart 1 vial 01/25/18 18:00 01/29/18 06:27 Novolog Vial Sliding Scale - SQ 4 units Q6HPO [facility] Administration Protocol Levothyroxine Sodium 37.5 mcg 01/23/18 07:00 01/29/18 06:25 Synthroid - PEG 37.5 mcg DAILY@0700 [facility] Administration Oxybutynin Chloride 5 mg 01/22/18 22:00 01/29/18 09:01 Ditropan - NGT 5 mg BID [facility] Administration Pantoprazole Sodium 40 mg 01/23/18 10:00 01/28/18 10:26 Protonix Iv IVPUSH 40 mg DAILY [facility] Administration Potassium Chloride 40 meq 01/27/18 12:00 01/29/18 09:01 Potassium Chloride Oral Liquid PO 40 meq DAILY [facility] Administration Sertraline HCl 25 mg 01/23/18 10:00 01/29/18 09:01 Zoloft - NR 25 mg DAILY [facility] Administration Sodium Chloride 2 spray 01/26/18 22:00 01/29/18 06:25 [place] Nasal [place] - NS 2 spray TID [facility] Administration 87 year-old male with PMH significant for diastolic heart failure, NIDDM, CKD, and 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 Admitted for bleeding around the trach site. Proteus ESBL UTI --afebrile 48 hours; no leukocytosis --continue ertapenem (day #5); will finish 7 days and then plan to discharge --01/26 blood cultures NGTD --01/27 repeat urine culture pending Bleeding from several sites, resolved --Epistaxis, resolved --Hemoptysis likely from epistaxis, resolved --Trach oozing, resolved Acute blood loss anemia --transfused 1U PRBC on 01/21 - Low iron saturation, IV iron given, second dose yesterday, mild bump in Hgb 8.1-->8.5 --GI consult: monitor for s/s of bleeding, transfuse < 7, no other intervention at this time Chronic respiratory failure --oxygen requirements have remained steady despite large bilateral pleural effusions KATERIN on CKD --renal function is essentially unchanged --weight has been trending up, increase Lasix IV 40mg BID Acute on chronic diastolic heart failure --continue IV lasix Paroxysmal afib --rate well-controlled --not on anti-coagulation due to anemia, bleeding issues NIDDM --Novolog sliding scale coverage Hypothyroidism -continue levothyroxine Hypokalemia --repleted Functional quadraplegia FEN Fluids/Nutrition: Nepro 50mL/hr with 20mL/hr water flushes Electrolytes: replete as indicated DVT prophylaxis: SCDs Physical therapy: bedside ROM Dispo: continues to require inpatient care. Full code. Visit type - Emergency Visit Emergency Visit: Yes ED Registration Date: 01/21/18 Care time: The patient presented to the Emergency Department on the above date and was hospitalized for further evaluation of their emergent condition. - New Patient This patient is new to me today: No - Critical Care Critical Care patient: No
[2018-01-29] MEDS: ERTAPENEM SODIUM 0.5 GM in SODIUM CHLORIDE 50 ML IVPB SCH (09:56)
[2018-01-29] MEDS: FUROSEMIDE 40 MG/4 ML INJECTABLE VIAL IVPUSH SCH ×2 (10:08→15:42)
[2018-01-29] MEDS: PANTOPRAZOLE SODIUM 40 MG VIAL IVPUSH SCH (10:08)
[2018-01-29 10:27] LABS: BASO % 0.2 % (0-2.0); EOS % 1.8 % (0-4.5); HEMATOCRIT 26.6 % (35.4-49); HEMOGLOBIN 8.5 GM/dL (11.7-16.9); LYMPH % 30.8 % (8-40); MCH 26.4 pg (25.7-33.7); MCHC 32.1 g/dl (32.0-35.9); MEAN CELL VOLUME 82.3 fl (80-96); MEAN PLT VOLUME 10.2 fl (7.5-11.1); MONO % 6.5 % (3.8-10.2); NEUT % 60.7 % (42.8-82.8); PLATELET COUNT 164 K/MM3 (134-434); RBC 3.23 M/mm3 (4.00-5.60); WHITE BLOOD COUNT 4.2 K/mm3 (4.0-10.0)
[2018-01-29 11:00] LABS: ANION GAP 8 (8-16); BLOOD UREA NITROGEN 95 mg/dL (7-18); CALCIUM 7.7 mg/dL (8.5-10.1); CHLORIDE 111 mmol/L (98-107); CO2 28 mmol/L (21-32); CREATININE 2.1 mg/dL (0.7-1.3); GLUCOSE,RANDOM 144 mg/dL (74-106); MAGNESIUM 2.4 mg/dL (1.8-2.4); PHOSPHOROUS 3.9 mg/dL (2.5-4.9); POTASSIUM 3.1 mmol/L (3.5-5.1); SGOT/AST 87 U/L (15-37); SGPT/ALT 77 U/L (12-78); SODIUM 147 mmol/L (136-145)
[2018-01-29 11:02] LABS: ALK PHOS 111 U/L (45-117); BILIRUBIN,TOTAL 0.4 mg/dL (0.2-1.0); TOT PROT 6.3 g/dl (6.4-8.2)
[2018-01-29 11:32] LABS: ANISOCYTOSIS 2+; PLATELET ESTIMATE NORMAL
[2018-01-29] MEDS ORDERED: PT OWN MED DRAWER 7, Y5N ONE ×3 (11:52→21:13)
--- NOTE | 2018-01-29 12:12 | PN ---
Progress Note, Physician History of Present Illness: This is an 87 yr old white man with h/o traumatic fall down stairs (admitted to [facility] about a month ago and had neck/back surgery, tracheotomy placement 2016 now with traumatic brain injury (TBI), ventilator dependent, and PEG tube placement), recent aspiration PNA, A-fib, CHF, DM, renal failure, TBI, legally blind and deaf; who is BIBA from [facility] in [place] for blood with clots suctioned from his tracheostomy tube yesterday , as well as anemia detected on his lab work today. 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 Per conversation with attending Dr. Yadiel Gallegos at [facility], yesterday the patient was noted to have bloody secretions suctioned from tracheostomy site , so CBC was checked. His Hct was 24 yesterday, which was down ~10 points from his prior values. They re-checked it again today and Hct was 21. [facility] checked his urine and there was a small amount of blood in it (not enough to explain the Hct drop). Their primary concern has been for GI bleed and FOBT was ordered but had not resulted at the time the patient was sent here. Received his noon medications and simethicone and a portion of his noon PEG tube feeding (had to be stopped early for transport). - Current Medication List Current Medications: Active Medications Baclofen (Lioresal -) 10 mg GT TID [facility] Last Admin: 01/29/18 06:25 Dose: 10 mg Furosemide (Lasix Injection -) 40 mg IVPUSH BID@0600,1400 [facility] Ertapenem 0.5 gm/ Sodium (Chloride) 50 mls @ 100 mls/hr IVPB DAILY [facility]; Protocol Last Admin: 01/29/18 09:56 Dose: 100 mls/hr Insulin Aspart (Novolog Vial Sliding Scale -) 1 vial SQ Q6HPO [facility]; Protocol Last Admin: 01/29/18 11:50 Dose: 4 units Levothyroxine Sodium (Synthroid -) 37.5 mcg PEG DAILY@0700 [facility] Last Admin: 01/29/18 06:25 Dose: 37.5 mcg Oxybutynin Chloride (Ditropan -) 5 mg NGT BID [facility] Last Admin: 01/29/18 09:01 Dose: 5 mg Pantoprazole Sodium (Protonix Iv) 40 mg IVPUSH DAILY [facility] Last Admin: 01/29/18 10:08 Dose: 40 mg Potassium Chloride (Potassium Chloride Oral Liquid) 40 meq PO DAILY [facility] Last Admin: 01/29/18 09:01 Dose: 40 meq Potassium Chloride (Potassium Chloride Oral Liquid) 40 meq PO Q6H [facility] Stop: 01/30/18 00:01 Last Admin: 01/29/18 11:53 Dose: 40 meq Sertraline HCl (Zoloft -) 25 mg NR DAILY [facility] Last Admin: 01/29/18 09:01 Dose: 25 mg Sodium Chloride ([place] Nasal [place] -) 2 spray NS TID [facility] Last Admin: 01/29/18 06:25 Dose: 2 spray - Objective Vital Signs: Vital Signs Temperature 98.0 F 01/29/18 09:13 Pulse Rate 50 L 01/29/18 09:13 Respiratory Rate 15 01/29/18 09:50 Blood Pressure 126/65 01/29/18 09:13 O2 Sat by Pulse Oximetry (%) 99 01/29/18 09:50 Eyes: Yes: WNL, Conjunctiva Clear, EOM Intact HENT: Yes: WNL, Atraumatic, Normocephalic Neck: Yes: WNL, Supple, Trachea Midline Cardiovascular: Yes: WNL, Regular Rate and Rhythm Respiratory: Yes: Mechanically Ventilated, Other (s/p tracheostomy) Gastrointestinal: Yes: WNL, Normal Bowel Sounds Genitourinary: Yes: WNL Musculoskeletal: Yes: WNL Extremities: Yes: WNL Edema: No Integumentary: Yes: WNL Neurological: Yes: WNL, Alert, Oriented ...Motor Strength: WNL Psychiatric: Yes: WNL Labs: CBC, BMP 01/29/18 09:35 01/29/18 09:35 INR, PTT INR 1.10 (0.82-1.09) 01/21/18 15:00 Assessment/Plan - Problems (1) Acute on chronic diastolic CHF (congestive heart failure) Assessment/Plan: ECHO: normal LVEF; mild-moderate MR On furosemide; may require restarting the dose, in view of further congestion; discussed with hand violin maker. F/u BUN/Cr, electrolytes, daily weight, Is and Os. Code(s): I50.33 - ACUTE ON CHRONIC DIASTOLIC (CONGESTIVE) HEART FAILURE (2) Chronic respiratory failure Code(s): J96.10 - CHRONIC RESPIRATORY FAILURE, UNSP W HYPOXIA OR HYPERCAPNIA (3) Diabetes Code(s): E11.9 - TYPE 2 DIABETES MELLITUS WITHOUT COMPLICATIONS (4) Epistaxis Assessment/Plan: No further discharge. F/u Hb (stable today) Code(s): R04.0 - EPISTAXIS (5) Hemoptysis Code(s): R04.2 - HEMOPTYSIS (6) Hypothyroid Assessment/Plan: TSH wnl; on Synthroid Code(s): E03.9 - HYPOTHYROIDISM, UNSPECIFIED (7) S/P percutaneous endoscopic gastrostomy (PEG) tube placement Code(s): Z93.1 - GASTROSTOMY STATUS (8) TBI (traumatic brain injury) Code(s): S06.9X9A - UNSP INTRACRANIAL INJURY W LOC OF UNSP DURATION, INIT (9) Tracheostomy dependent Code(s): Z93.0 - TRACHEOSTOMY STATUS (10) Sinus bradycardia Code(s): R00.1 - BRADYCARDIA, UNSPECIFIED (11) PAF (paroxysmal atrial fibrillation) Code(s): I48.0 - PAROXYSMAL ATRIAL FIBRILLATION (12) Hypokalemia Code(s): E87.6 - HYPOKALEMIA
--- NOTE | 2018-01-29 12:49 | PN ---
Progress Note, Physician History of Present Illness: PULMONARY AROUSABLE , ON VENT SUPPORT AC MODE - Current Medication List Current Medications: Active Medications Baclofen (Lioresal -) 10 mg GT TID [facility] Last Admin: 01/29/18 06:25 Dose: 10 mg Furosemide (Lasix Injection -) 40 mg IVPUSH BID@0600,1400 [facility] Ertapenem 0.5 gm/ Sodium (Chloride) 50 mls @ 100 mls/hr IVPB DAILY [facility]; Protocol Last Admin: 01/29/18 09:56 Dose: 100 mls/hr Insulin Aspart (Novolog Vial Sliding Scale -) 1 vial SQ Q6HPO [facility]; Protocol Last Admin: 01/29/18 11:50 Dose: 4 units Levothyroxine Sodium (Synthroid -) 37.5 mcg PEG DAILY@0700 [facility] Last Admin: 01/29/18 06:25 Dose: 37.5 mcg Oxybutynin Chloride (Ditropan -) 5 mg NGT BID [facility] Last Admin: 01/29/18 09:01 Dose: 5 mg Pantoprazole Sodium (Protonix Iv) 40 mg IVPUSH DAILY [facility] Last Admin: 01/29/18 10:08 Dose: 40 mg Potassium Chloride (Potassium Chloride Oral Liquid) 40 meq PO DAILY [facility] Last Admin: 01/29/18 09:01 Dose: 40 meq Potassium Chloride (Potassium Chloride Oral Liquid) 40 meq PO Q6H [facility] Stop: 01/30/18 00:01 Last Admin: 01/29/18 11:53 Dose: 40 meq Sertraline HCl (Zoloft -) 25 mg NR DAILY [facility] Last Admin: 01/29/18 09:01 Dose: 25 mg Sodium Chloride ([place] Nasal [place] -) 2 spray NS TID [facility] Last Admin: 01/29/18 06:25 Dose: 2 spray - Objective Vital Signs: Vital Signs Temperature 98.0 F 01/29/18 09:13 Pulse Rate 50 L 01/29/18 09:13 Respiratory Rate 15 01/29/18 09:50 Blood Pressure 126/65 01/29/18 09:13 O2 Sat by Pulse Oximetry (%) 99 01/29/18 09:50 Constitutional: Yes: Well Nourished, Calm Eyes: Yes: WNL HENT: Yes: WNL Neck: Yes: Supple Cardiovascular: Yes: Pulse Irregular, S1, S2 Respiratory: Yes: Intubated, Mechanically Ventilated, Rhonchi (SCATTERED YASSINE RHONCHI) Gastrointestinal: Yes: Normal Bowel Sounds, Soft Extremities: Yes: WNL Edema: No Labs: CBC, BMP 01/29/18 09:35 01/29/18 09:35 INR, PTT INR 1.10 (0.82-1.09) 01/21/18 15:00 Problem List - Problems (1) A-fib Code(s): I48.91 - UNSPECIFIED ATRIAL FIBRILLATION (2) Acute on chronic diastolic CHF (congestive heart failure) Code(s): I50.33 - ACUTE ON CHRONIC DIASTOLIC (CONGESTIVE) HEART FAILURE (3) Chronic respiratory failure Code(s): J96.10 - CHRONIC RESPIRATORY FAILURE, UNSP W HYPOXIA OR HYPERCAPNIA (4) Diabetes Code(s): E11.9 - TYPE 2 DIABETES MELLITUS WITHOUT COMPLICATIONS (5) Epistaxis Code(s): R04.0 - EPISTAXIS (6) Hemoptysis Code(s): R04.2 - HEMOPTYSIS (7) TBI (traumatic brain injury) Code(s): S06.9X9A - UNSP INTRACRANIAL INJURY W LOC OF UNSP DURATION, INIT (8) Tracheostomy dependent Code(s): Z93.0 - TRACHEOSTOMY STATUS Assessment/Plan A/P Chronic Respiratory Failure Hemoptysis likely from Epistaxis Acute Blood Loss Anemia Acute Kidney Injury Atrial Fibrillation DM CHF h/o Traumatic Brain Injury - monitor H/H - transfuse as needed - abx as per id - lasix - monitor urine output, creatinine - replete lytes - O2 to keep SpO2 >90% - continue volume assist control - DVT/GI prophylaxis DR FORMAN
--- NOTE | 2018-01-29 13:02 | PN ---
Progress Note, Physician History of Present Illness: mental status slightly better continue to be the same - Current Medication List Current Medications: Active Medications Baclofen (Lioresal -) 10 mg GT TID [facility] Last Admin: 01/29/18 06:25 Dose: 10 mg Furosemide (Lasix Injection -) 40 mg IVPUSH BID@0600,1400 [facility] Ertapenem 0.5 gm/ Sodium (Chloride) 50 mls @ 100 mls/hr IVPB DAILY [facility]; Protocol Last Admin: 01/29/18 09:56 Dose: 100 mls/hr Insulin Aspart (Novolog Vial Sliding Scale -) 1 vial SQ Q6HPO [facility]; Protocol Last Admin: 01/29/18 11:50 Dose: 4 units Levothyroxine Sodium (Synthroid -) 37.5 mcg PEG DAILY@0700 [facility] Last Admin: 01/29/18 06:25 Dose: 37.5 mcg Oxybutynin Chloride (Ditropan -) 5 mg NGT BID [facility] Last Admin: 01/29/18 09:01 Dose: 5 mg Pantoprazole Sodium (Protonix Iv) 40 mg IVPUSH DAILY [facility] Last Admin: 01/29/18 10:08 Dose: 40 mg Potassium Chloride (Potassium Chloride Oral Liquid) 40 meq PO DAILY [facility] Last Admin: 01/29/18 09:01 Dose: 40 meq Potassium Chloride (Potassium Chloride Oral Liquid) 40 meq PO Q6H [facility] Stop: 01/30/18 00:01 Last Admin: 01/29/18 11:53 Dose: 40 meq Sertraline HCl (Zoloft -) 25 mg NR DAILY [facility] Last Admin: 01/29/18 09:01 Dose: 25 mg Sodium Chloride ([place] Nasal [place] -) 2 spray NS TID [facility] Last Admin: 01/29/18 06:25 Dose: 2 spray - Objective Vital Signs: Vital Signs Temperature 98.0 F 01/29/18 09:13 Pulse Rate 50 L 01/29/18 09:13 Respiratory Rate 15 01/29/18 09:50 Blood Pressure 126/65 01/29/18 09:13 O2 Sat by Pulse Oximetry (%) 99 01/29/18 09:50 Constitutional: Yes: No Distress, Calm Cardiovascular: Yes: Regular Rate and Rhythm Respiratory: Yes: Regular Gastrointestinal: Yes: Normal Bowel Sounds, Soft Musculoskeletal: Yes: WNL Extremities: Yes: WNL Neurological: Yes: Other Psychiatric: Yes: Other Labs: CBC, BMP 01/29/18 09:35 01/29/18 09:35 INR, PTT INR 1.10 (0.82-1.09) 01/21/18 15:00 Assessment/Plan 87yo M with 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 He was found to have bright red bloody secretions suctioned from tracheostomy site.and now found to have esbl uti uti ac blood loos anemia Acute CHF Exacerbation S/p Tracheostomy Afib CKD DM2 Hypothyroidism plan continue abx finish abx course suctioning rest as per the teams and pul nutrition slightly better
--- NOTE | 2018-01-29 13:42 | PN ---
Progress Note (short form) - Note Progress Note: Renal follow up for KATERIN on CKD Pt seen and examined at the bedside remains on vent on 30% Fio2 weights uptrending Vital Signs Temperature 98.0 F 01/29/18 09:13 Pulse Rate 50 L 01/29/18 09:13 Respiratory Rate 15 01/29/18 09:50 Blood Pressure 126/65 01/29/18 09:13 O2 Sat by Pulse Oximetry (%) 99 01/29/18 09:50 Intake & Output 01/26/18 01/27/18 01/28/18 01/29/18 23:59 23:59 23:59 23:59 Intake Total 1140 1190 1404 1332 Output Total 1450 1310 950 500 Balance -310 -120 454 832 Weight 71.214 kg 71.69 kg 72.121 kg 72.575 kg NAD on Vent No JVD RRR, No M/R Course BS trace sacral edema CBC, BMP 01/29/18 09:35 01/29/18 09:35 Current Medications Baclofen (Lioresal -) 10 mg GT TID [facility] Last Admin: 01/29/18 13:08 Dose: 10 mg Furosemide (Lasix Injection -) 40 mg IVPUSH BID@0600,1400 [facility] Ertapenem 0.5 gm/ Sodium (Chloride) 50 mls @ 100 mls/hr IVPB DAILY [facility]; Protocol Last Admin: 01/29/18 09:56 Dose: 100 mls/hr Iron Sucrose 100 mg/ Sodium (Chloride) 100 mls @ 200 mls/hr IVPB ONCE ONE Stop: 01/29/18 14:04 Insulin Aspart (Novolog Vial Sliding Scale -) 1 vial SQ Q6HPO [facility]; Protocol Last Admin: 01/29/18 11:50 Dose: 4 units Levothyroxine Sodium (Synthroid -) 37.5 mcg PEG DAILY@0700 [facility] Last Admin: 01/29/18 06:25 Dose: 37.5 mcg Oxybutynin Chloride (Ditropan -) 5 mg NGT BID [facility] Last Admin: 01/29/18 09:01 Dose: 5 mg Pantoprazole Sodium (Protonix Iv) 40 mg IVPUSH DAILY [facility] Last Admin: 01/29/18 10:08 Dose: 40 mg Potassium Chloride (Potassium Chloride Oral Liquid) 40 meq PO Q6H [facility] Stop: 01/30/18 00:01 Last Admin: 01/29/18 11:53 Dose: 40 meq Potassium Chloride (Potassium Chloride Oral Liquid) 60 meq PO DAILY [facility] Sertraline HCl (Zoloft -) 25 mg NR DAILY [facility] Last Admin: 01/29/18 09:01 Dose: 25 mg Sodium Chloride ([place] Nasal [place] -) 2 spray NS TID [facility] Last Admin: 01/29/18 13:10 Dose: 2 spray 87 year old gentleman with PMhx of Traumatic brain injury now vented via trach with PEG, DM, CKD, CHF, Afib who presented with bright red blood from ET suctioning and found have acute anemia and Cr of 2. #KATERIN/CKD #Bleeding from ET tube #B/L Pleural effusions #Acute on Chronic Anemia #Hypernatremia #Proteinuria #Possible UTI #Hypokalemia Renal function stable, pt is non-oliguirc will increase Lasix to BID, trend daily weights Continue KCL supplementation with goal levels > 3.5 will increase free water to 300cc Q6h Continue vent support Frank Ayoub DO
[2018-01-29] MEDS ORDERED: IRON SUCROSE INJECTION 100 MG in SODIUM CHLORIDE 95 ML IVPB ONE (15:15)
[2018-01-29] MEDS: MUPIROCIN 2% TOPICAL OINTMENT 22 GM TUBE TP SCH ×2 (17:13→21:45)
[2018-01-29] MEDS ORDERED: DEXTROSE 5%-0.45% SALINE 1,000 ML IV SCH (21:15)
[2018-01-30] MEDS: POTASSIUM CHLORIDE ORAL LIQUID 20 MEQ/15 ML PO SCH ×2 (00:50→06:11)
[2018-01-30] MEDS: INSULIN SLIDING SCALE (NOVOLOG) 1 VIAL SQ SCH ×5 (01:07→20:08)
[2018-01-30] MEDS: LEVOTHYROXINE NA 25 MCG TABLET (FP) PEG SCH (06:10)
[2018-01-30] MEDS: FUROSEMIDE 40 MG/4 ML INJECTABLE VIAL IVPUSH SCH ×2 (06:11→15:10)
[2018-01-30] MEDS: BACLOFEN 10 MG TABLET (FP) GT SCH ×3 (06:11→21:56)
[2018-01-30] MEDS: SODIUM CHLORIDE NASAL SPRAY 44 ML BOTTLE NS SCH ×3 (06:12→21:56)
[2018-01-30 07:44] LABS: BASO % 0.6 % (0-2.0); EOS % 1.9 % (0-4.5); HEMATOCRIT 24.5 % (35.4-49); HEMOGLOBIN 7.9 GM/dL (11.7-16.9); LYMPH % 32.5 % (8-40); MCH 26.7 pg (25.7-33.7); MCHC 32.4 g/dl (32.0-35.9); MEAN CELL VOLUME 82.3 fl (80-96); MEAN PLT VOLUME 9.9 fl (7.5-11.1); MONO % 5.6 % (3.8-10.2); NEUT % 59.4 % (42.8-82.8); PLATELET COUNT 137 K/MM3 (134-434); RBC 2.98 M/mm3 (4.00-5.60); RDW 22.3 % (11.9-15.9); WHITE BLOOD COUNT 4.4 K/mm3 (4.0-10.0)
[2018-01-30 08:06] LABS: CHLORIDE 112 mmol/L (98-107); SODIUM 145 mmol/L (136-145)
[2018-01-30 08:20] LABS: ALBUMIN 1.9 g/dl (3.4-5.0); ALK PHOS 126 U/L (45-117); ANION GAP 7 (8-16); BILIRUBIN,TOTAL 0.4 mg/dL (0.2-1.0); BLOOD UREA NITROGEN 93 mg/dL (7-18); CALCIUM 7.9 mg/dL (8.5-10.1); CO2 26 mmol/L (21-32); CREATININE 2.1 mg/dL (0.7-1.3); GLUCOSE,RANDOM 161 mg/dL (74-106); MAGNESIUM 2.3 mg/dL (1.8-2.4); SGOT/AST 232 U/L (15-37); SGPT/ALT 177 U/L (12-78); TOT PROT 6.1 g/dl (6.4-8.2)
--- NOTE | 2018-01-30 08:25 | PN ---
Progress Note, Physician History of Present Illness: This is an 87 yr old white man with h/o traumatic fall down stairs (admitted to [facility] about a month ago and had neck/back surgery, tracheotomy placement 2016 now with traumatic brain injury (TBI), ventilator dependent, and PEG tube placement), recent aspiration PNA, A-fib, CHF, DM, renal failure, TBI, legally blind and deaf; who is BIBA from [facility] in [place] for blood with clots suctioned from his tracheostomy tube yesterday , as well as anemia detected on his lab work today. He was supposed to have been transported to [facility] for long term care pharmacist management, but is stopping here at [facility] because of the anemia. Per conversation with attending Dr. Yadiel Gallegos at [facility], yesterday the patient was noted to have bloody secretions suctioned from tracheostomy site , so CBC was checked. His Hct was 24 yesterday, which was down ~10 points from his prior values. They re-checked it again today and Hct was 21. [facility] checked his urine and there was a small amount of blood in it (not enough to explain the Hct drop). Their primary concern has been for GI bleed and FOBT was ordered but had not resulted at the time the patient was sent here. Received his noon medications and simethicone and a portion of his noon PEG tube feeding (had to be stopped early for transport). - Current Medication List Current Medications: Active Medications Baclofen (Lioresal -) 10 mg GT TID [facility] Last Admin: 01/30/18 06:11 Dose: 10 mg Furosemide (Lasix Injection -) 40 mg IVPUSH BID@0600,1400 [facility] Last Admin: 01/30/18 06:11 Dose: 40 mg Ertapenem 0.5 gm/ Sodium (Chloride) 50 mls @ 100 mls/hr IVPB DAILY [facility]; Protocol Last Admin: 01/29/18 09:56 Dose: 100 mls/hr Insulin Aspart (Novolog Vial Sliding Scale -) 1 vial SQ Q6HPO [facility]; Protocol Last Admin: 01/30/18 06:12 Dose: 2 units Levothyroxine Sodium (Synthroid -) 37.5 mcg PEG DAILY@0700 [facility] Last Admin: 01/30/18 06:10 Dose: 37.5 mcg Mupirocin (Bactroban 2% Ointment -) 1 applic TP BID [facility] Last Admin: 01/29/18 21:45 Dose: 1 applic Oxybutynin Chloride (Ditropan -) 5 mg NGT BID [facility] Last Admin: 01/29/18 21:44 Dose: 5 mg Pantoprazole Sodium (Protonix Iv) 40 mg IVPUSH DAILY [facility] Last Admin: 01/29/18 10:08 Dose: 40 mg Potassium Chloride (Potassium Chloride Oral Liquid) 60 meq PO DAILY [facility] Last Admin: 01/30/18 06:11 Dose: 60 meq Sertraline HCl (Zoloft -) 25 mg NR DAILY [facility] Last Admin: 01/29/18 09:01 Dose: 25 mg Sodium Chloride ([place] Nasal [place] -) 2 spray NS TID [facility] Last Admin: 01/30/18 06:12 Dose: 2 spray - Objective Vital Signs: Vital Signs Temperature 97.8 F 01/30/18 06:00 Pulse Rate 48 L 01/30/18 06:00 Respiratory Rate 14 01/30/18 06:25 Blood Pressure 118/51 01/30/18 06:00 O2 Sat by Pulse Oximetry (%) 100 01/29/18 21:00 Eyes: Yes: WNL, Conjunctiva Clear, EOM Intact HENT: Yes: WNL, Atraumatic, Normocephalic Neck: Yes: WNL, Supple, Trachea Midline Cardiovascular: Yes: WNL, Regular Rate and Rhythm Respiratory: Yes: Mechanically Ventilated Gastrointestinal: Yes: WNL, Normal Bowel Sounds Genitourinary: Yes: WNL Musculoskeletal: Yes: WNL Extremities: Yes: WNL Edema: No Integumentary: Yes: WNL Neurological: Yes: WNL, Alert, Oriented ...Motor Strength: WNL Psychiatric: Yes: WNL Labs: CBC, BMP 01/30/18 07:00 INR, PTT INR 1.10 (0.82-1.09) 01/21/18 15:00 Assessment/Plan - Problems (1) Acute on chronic diastolic CHF (congestive heart failure) Assessment/Plan: ECHO: normal LVEF; mild-moderate MR On furosemide; may require restarting the dose, in view of further congestion; discussed with cigar head perforator. F/u BUN/Cr, electrolytes, daily weight, Is and Os. Code(s): I50.33 - ACUTE ON CHRONIC DIASTOLIC (CONGESTIVE) HEART FAILURE (2) Chronic respiratory failure Code(s): J96.10 - CHRONIC RESPIRATORY FAILURE, UNSP W HYPOXIA OR HYPERCAPNIA (3) Diabetes Code(s): E11.9 - TYPE 2 DIABETES MELLITUS WITHOUT COMPLICATIONS (4) Epistaxis Assessment/Plan: No further discharge. F/u Hb (stable today) Code(s): R04.0 - EPISTAXIS (5) Hemoptysis Code(s): R04.2 - HEMOPTYSIS (6) Hypothyroid Assessment/Plan: TSH wnl; on Synthroid Code(s): E03.9 - HYPOTHYROIDISM, UNSPECIFIED (7) S/P percutaneous endoscopic gastrostomy (PEG) tube placement Code(s): Z93.1 - GASTROSTOMY STATUS (8) TBI (traumatic brain injury) Code(s): S06.9X9A - UNSP INTRACRANIAL INJURY W LOC OF UNSP DURATION, INIT (9) Tracheostomy dependent Code(s): Z93.0 - TRACHEOSTOMY STATUS (10) Sinus bradycardia Code(s): R00.1 - BRADYCARDIA, UNSPECIFIED (11) PAF (paroxysmal atrial fibrillation) Code(s): I48.0 - PAROXYSMAL ATRIAL FIBRILLATION (12) Hypokalemia Code(s): E87.6 - HYPOKALEMIA anemia - f/u hct transgfuse as needed
--- NOTE | 2018-01-30 09:35 | PN ---
Physical Exam: SUBJECTIVE: Patient seen and examined OBJECTIVE: Vital Signs Period Temp Pulse Resp BP Sys/Wills Pulse Ox Last 24 Hr 97.8 F-99.1 F 48-71 14-19 116-125/51-66 99-100 GENERAL: Somnolent; opens eyes to voice, does not follow commands. LUNGS: Breath sounds equal, on vent. Trach collar in place, dressing c/d/i, no bleeding HEART: Regular rate and rhythm, S1, S2 ABDOMEN: Soft, nontender, nondistended, normoactive bowel sounds, no guarding, no rebound EXTREMITIES: 2+ pulses, warm, well-perfused Laboratory Results - last 24 hr 01/29/18 01/29/18 01/29/18 09:35 09:35 11:49 WBC 4.2 D RBC 3.23 L Hgb 8.5 L Hct 26.6 L MCV 82.3 MCH 26.4 MCHC 32.1 RDW 22.0 H Plt Count 164 MPV 10.2 Neutrophils % 60.7 Lymphocytes % 30.8 D Monocytes % 6.5 Eosinophils % 1.8 Basophils % 0.2 Nucleated RBC % 0 Platelet Estimate Normal Anisocytosis 2+ Microcytosis 1+ Sodium 147 H Potassium 3.1 L Chloride 111 H Carbon Dioxide 28 Anion Gap 8 BUN 95 H Creatinine 2.1 H Creat Clearance w eGFR 30.17 POC Glucometer 203 Random Glucose 144 H D Calcium 7.7 L Phosphorus 3.9 Magnesium 2.4 Total Bilirubin 0.4 AST 87 H ALT 77 Alkaline Phosphatase 111 Total Protein 6.3 L Albumin 2.0 L 01/29/18 01/29/18 01/30/18 17:02 21:41 01:04 WBC RBC Hgb Hct MCV MCH MCHC RDW Plt Count MPV Neutrophils % Lymphocytes % Monocytes % Eosinophils % Basophils % Nucleated RBC % Platelet Estimate Anisocytosis Microcytosis Sodium Potassium Chloride Carbon Dioxide Anion Gap BUN Creatinine Creat Clearance w eGFR POC Glucometer 207 147 217 Random Glucose Calcium Phosphorus Magnesium Total Bilirubin AST ALT Alkaline Phosphatase Total Protein Albumin 01/30/18 01/30/18 01/30/18 05:50 07:00 07:00 WBC 4.4 RBC 2.98 L Hgb 7.9 L Hct 24.5 L MCV 82.3 MCH 26.7 MCHC 32.4 RDW 22.3 H Plt Count 137 MPV 9.9 Neutrophils % 59.4 Lymphocytes % 32.5 Monocytes % 5.6 Eosinophils % 1.9 Basophils % 0.6 Nucleated RBC % 0 Platelet Estimate Anisocytosis Microcytosis Sodium 145 Potassium 5.0 D Chloride 112 H Carbon Dioxide 26 Anion Gap 7 L BUN 93 H Creatinine 2.1 H Creat Clearance w eGFR 30.17 POC Glucometer 188 Random Glucose 161 H Calcium 7.9 L Phosphorus Magnesium 2.3 Total Bilirubin 0.4 AST 232 H D ALT 177 H D Alkaline Phosphatase 126 H Total Protein 6.1 L Albumin 1.9 L Active Medications Generic Name Dose Route Start Last Admin Trade Name Amadorq PRN Reason Stop Dose Admin Baclofen 10 mg 01/22/18 22:00 01/30/18 06:11 Lioresal - GT 10 mg TID [facility]ILIA Administration Furosemide 40 mg 01/29/18 14:00 01/30/18 06:11 Lasix Injection - IVPUSH 40 mg BID@0600,1400 [facility] Administration Ertapenem 0.5 gm/ Sodium 50 mls @ 100 mls/hr 01/25/18 10:00 01/29/18 09:56 Chloride IVPB 100 mls/hr DAILY [facility] Administration Protocol Insulin Aspart 1 vial 01/25/18 18:00 01/30/18 06:12 Novolog Vial Sliding Scale - SQ 2 units Q6HPO [facility] Administration Protocol Levothyroxine Sodium 37.5 mcg 01/23/18 07:00 01/30/18 06:10 Synthroid - PEG 37.5 mcg DAILY@0700 [facility] Administration Mupirocin 1 applic 01/29/18 14:00 01/29/18 21:45 Bactroban 2% Ointment - TP 1 applic BID [facility] Administration Oxybutynin Chloride 5 mg 01/22/18 22:00 01/29/18 21:44 Ditropan - NGT 5 mg BID [facility] Administration Pantoprazole Sodium 40 mg 01/23/18 10:00 01/29/18 10:08 Protonix Iv IVPUSH 40 mg DAILY [facility] Administration Potassium Chloride 60 meq 01/30/18 06:00 01/30/18 06:11 Potassium Chloride Oral Liquid PO 60 meq DAILY [facility] Administration Sertraline HCl 25 mg 01/23/18 10:00 01/29/18 09:01 Zoloft - NR 25 mg DAILY [facility] Administration Sodium Chloride 2 spray 01/26/18 22:00 01/30/18 06:12 [place] Nasal [place] - NS 2 spray TID [facility] Administration ASSESSMENT/PLAN 87 year-old male with PMH significant for diastolic heart failure, NIDDM, CKD, and 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 Admitted for bleeding around the trach site. Proteus ESBL UTI --afebrile 48 hours; no leukocytosis --continue ertapenem (day #5); will finish 10 days prior to discharge --01/29 repeat urine culture negative Transaminitis --significant bump in transaminases, possible drug toxicity? --US liver ordered Bleeding from several sites, resolved --Epistaxis, resolved --Hemoptysis likely from epistaxis, resolved --Trach oozing, resolved Acute blood loss anemia --transfused 1U PRBC on 01/21 - Low iron saturation, IV iron given, second dose yesterday, mild bump in Hgb 8.1-->8.5 --GI consult: monitor for s/s of bleeding, transfuse < 7, no other intervention at this time Chronic respiratory failure --oxygen requirements have remained steady despite large bilateral pleural effusions KATERIN on CKD --renal function is essentially unchanged --weight has been trending up, increase Lasix IV 40mg BID --patient has wet diapers but bladder scans show 400cc+ retention; will get US bladder to assess post-void residual Acute on chronic diastolic heart failure --continue IV lasix Paroxysmal afib --rate well-controlled --not on anti-coagulation due to anemia, bleeding issues NIDDM --Novolog sliding scale coverage Hypothyroidism -continue levothyroxine Hypokalemia --repleted Functional quadraplegia FEN Fluids/Nutrition: Nepro 50mL/hr with 20mL/hr water flushes Electrolytes: replete as indicated DVT prophylaxis: SCDs Physical therapy: bedside ROM Dispo: continues to require inpatient care. Full code. Visit type - Emergency Visit Emergency Visit: Yes ED Registration Date: 01/21/18 Care time: The patient presented to the Emergency Department on the above date and was hospitalized for further evaluation of their emergent condition. - New Patient This patient is new to me today: No - Critical Care Critical Care patient: No
[2018-01-30] MEDS ORDERED: DEXTROSE 5%-0.45% SALINE 1,000 ML IV SCH (10:00)
[2018-01-30] MEDS: OXYBUTYNIN CHLORIDE 5 MG TABLET NGT SCH ×2 (10:06→21:56)
[2018-01-30] MEDS: PANTOPRAZOLE SODIUM 40 MG VIAL IVPUSH SCH (10:06)
[2018-01-30] MEDS: SERTRALINE HCL 25 MG TABLET (FP) NR SCH (10:07)
--- NOTE | 2018-01-30 10:10 | PN ---
Progress Note (short form) - Note Progress Note: PULMONARY Vented, poorly responsive. No fevers recorded. Last Vital Signs Temp Pulse Resp BP Pulse Ox 97.8 F 48 L 14 118/51 100 01/30/18 06:00 01/30/18 06:00 01/30/18 06:25 01/30/18 06:00 01/29/18 21:00 Gen: vented, poorly responsive Heart: RRR Lung: scattered rhonchi Abd: soft, nontender Ext: no edema CBC, BMP 01/30/18 07:00 01/30/18 07:00 Active Medications Baclofen (Lioresal -) 10 mg GT TID [facility] Last Admin: 01/30/18 06:11 Dose: 10 mg Furosemide (Lasix Injection -) 40 mg IVPUSH BID@0600,1400 [facility] Last Admin: 01/30/18 06:11 Dose: 40 mg Ertapenem 0.5 gm/ Sodium (Chloride) 50 mls @ 100 mls/hr IVPB DAILY [facility]; Protocol Last Admin: 01/29/18 09:56 Dose: 100 mls/hr Dextrose/Sodium Chloride (D5-1/2ns -) 1,000 mls @ 50 mls/hr IV ASDIR [facility] Insulin Aspart (Novolog Vial Sliding Scale -) 1 vial SQ Q6HPO [facility]; Protocol Last Admin: 01/30/18 06:12 Dose: 2 units Levothyroxine Sodium (Synthroid -) 37.5 mcg PEG DAILY@0700 [facility] Last Admin: 01/30/18 06:10 Dose: 37.5 mcg Mupirocin (Bactroban 2% Ointment -) 1 applic TP BID [facility] Last Admin: 01/29/18 21:45 Dose: 1 applic Oxybutynin Chloride (Ditropan -) 5 mg NGT BID [facility] Last Admin: 01/29/18 21:44 Dose: 5 mg Pantoprazole Sodium (Protonix Iv) 40 mg IVPUSH DAILY [facility] Last Admin: 01/29/18 10:08 Dose: 40 mg Potassium Chloride (Potassium Chloride Oral Liquid) 60 meq PO DAILY [facility] Last Admin: 01/30/18 06:11 Dose: 60 meq Sertraline HCl (Zoloft -) 25 mg NR DAILY [facility] Last Admin: 01/29/18 09:01 Dose: 25 mg Sodium Chloride ([place] Nasal [place] -) 2 spray NS TID [facility] Last Admin: 01/30/18 06:12 Dose: 2 spray A/P Chronic Respiratory Failure Hemoptysis likely from Epistaxis Acute Blood Loss Anemia Acute Kidney Injury Atrial Fibrillation DM CHF h/o Traumatic Brain Injury - monitor H/H - transfuse as needed - continue lasix - monitor urine output, creatinine - replete lytes - O2 to keep SpO2 >90% - continue volume assist control - poor candidate for weaning at this time - DVT/GI prophylaxis
[2018-01-30] MEDS: MUPIROCIN 2% TOPICAL OINTMENT 22 GM TUBE TP SCH ×2 (10:46→21:55)
[2018-01-30 11:13] LABS: ANISOCYTOSIS 2+; PLATELET ESTIMATE DECREASED
--- NOTE | 2018-01-30 12:48 | PN ---
Progress Note, Physician History of Present Illness: continues to be poorly responsive on vent no specific events - Current Medication List Current Medications: Active Medications Baclofen (Lioresal -) 10 mg GT TID [facility] Last Admin: 01/30/18 06:11 Dose: 10 mg Furosemide (Lasix Injection -) 40 mg IVPUSH BID@0600,1400 [facility] Last Admin: 01/30/18 06:11 Dose: 40 mg Ertapenem 0.5 gm/ Sodium (Chloride) 50 mls @ 100 mls/hr IVPB DAILY [facility]; Protocol Last Admin: 01/29/18 09:56 Dose: 100 mls/hr Dextrose/Sodium Chloride (D5-1/2ns -) 1,000 mls @ 50 mls/hr IV ASDIR [facility] Last Admin: 01/30/18 10:08 Dose: 50 mls/hr Insulin Aspart (Novolog Vial Sliding Scale -) 1 vial SQ Q6HPO [facility]; Protocol Last Admin: 01/30/18 06:12 Dose: 2 units Levothyroxine Sodium (Synthroid -) 37.5 mcg PEG DAILY@0700 [facility] Last Admin: 01/30/18 06:10 Dose: 37.5 mcg Mupirocin (Bactroban 2% Ointment -) 1 applic TP BID [facility] Last Admin: 01/29/18 21:45 Dose: 1 applic Oxybutynin Chloride (Ditropan -) 5 mg NGT BID [facility] Last Admin: 01/30/18 10:06 Dose: 5 mg Pantoprazole Sodium (Protonix Iv) 40 mg IVPUSH DAILY [facility] Last Admin: 01/30/18 10:06 Dose: 40 mg Potassium Chloride (Potassium Chloride Oral Liquid) 60 meq PO DAILY [facility] Last Admin: 01/30/18 06:11 Dose: 60 meq Sertraline HCl (Zoloft -) 25 mg NR DAILY [facility] Last Admin: 01/30/18 10:07 Dose: 25 mg Sodium Chloride ([place] Nasal [place] -) 2 spray NS TID [facility] Last Admin: 01/30/18 06:12 Dose: 2 spray - Objective Vital Signs: Vital Signs Temperature 97.8 F 01/30/18 06:00 Pulse Rate 48 L 01/30/18 06:00 Respiratory Rate 14 01/30/18 10:36 Blood Pressure 118/51 01/30/18 06:00 O2 Sat by Pulse Oximetry (%) 100 01/29/18 21:00 Constitutional: Yes: No Distress Neck: Yes: Supple, Other Cardiovascular: Yes: S1, S2 Respiratory: Yes: Mechanically Ventilated, Other (trach in place) Gastrointestinal: Yes: Normal Bowel Sounds, Soft, Other (peg in place) Musculoskeletal: Yes: WNL Extremities: Yes: Other (contracted) Wound/Incision: Yes: Other Neurological: Yes: Other Labs: CBC, BMP 01/30/18 07:00 01/30/18 07:00 INR, PTT INR 1.10 (0.82-1.09) 01/21/18 15:00 Assessment/Plan 87yo M with 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 He was found to have bright red bloody secretions suctioned from tracheostomy site.and now found to have esbl uti uti ac blood loos anemia Acute CHF Exacerbation S/p Tracheostomy Afib CKD DM2 Hypothyroidism plan continue abx discussed with the son in [place] discussed with nursing staff according to the nursing staff CAREER TECHNICAL SUPERVISOR Roselyn Hadley has held the etapenam thinking that it is damaging the liver i would suggest to continue it and complete the course nutrition rest as per pul
[2018-01-30] MEDS ORDERED: ERTAPENEM SODIUM 0.5 GM in SODIUM CHLORIDE 50 ML IVPB ONE (21:50)
[2018-01-30] MEDS ORDERED: PT OWN MED DRAWER 7, Y5N ONE (21:51)
--- NOTE | 2018-01-30 22:47 | PN ---
Progress Note (short form) - Note Progress Note: covering PMhx of Traumatic brain injury vented via trach with PEG, DM, CKD, CHF, Afib presented with bright red blood from ET suctioning and found have acute anemia and Cr of 2. Current Medications Baclofen (Lioresal -) 10 mg GT TID [facility] Last Admin: 01/30/18 21:56 Dose: 10 mg Furosemide (Lasix Injection -) 40 mg IVPUSH BID@0600,1400 [facility] Last Admin: 01/30/18 15:10 Dose: 40 mg Ertapenem 0.5 gm/ Sodium (Chloride) 50 mls @ 100 mls/hr IVPB DAILY [facility]; Protocol Last Admin: 01/29/18 09:56 Dose: 100 mls/hr Dextrose/Sodium Chloride (D5-1/2ns -) 1,000 mls @ 50 mls/hr IV ASDIR [facility] Last Admin: 01/30/18 10:08 Dose: 50 mls/hr Ertapenem 0.5 gm/ Sodium (Chloride) 50 mls @ 50 mls/hr IVPB ONCE ONE; Protocol Stop: 01/30/18 22:49 Last Admin: 01/30/18 22:30 Dose: 50 mls/hr Insulin Aspart (Novolog Vial Sliding Scale -) 1 vial SQ Q6HPO [facility]; Protocol Last Admin: 01/30/18 20:08 Dose: Not Given Levothyroxine Sodium (Synthroid -) 37.5 mcg PEG DAILY@0700 [facility] Last Admin: 01/30/18 06:10 Dose: 37.5 mcg Mupirocin (Bactroban 2% Ointment -) 1 applic TP BID [facility] Last Admin: 01/30/18 21:55 Dose: 1 applic Oxybutynin Chloride (Ditropan -) 5 mg NGT BID [facility] Last Admin: 01/30/18 21:56 Dose: 5 mg Pantoprazole Sodium (Protonix Iv) 40 mg IVPUSH DAILY [facility] Last Admin: 01/30/18 10:06 Dose: 40 mg Potassium Chloride (Potassium Chloride Oral Liquid) 60 meq PO DAILY [facility] Last Admin: 01/30/18 06:11 Dose: 60 meq Sertraline HCl (Zoloft -) 25 mg NR DAILY [facility] Last Admin: 01/30/18 10:07 Dose: 25 mg Sodium Chloride ([place] Nasal [place] -) 2 spray NS TID [facility] Last Admin: 01/30/18 21:56 Dose: 2 spray Last Vital Signs Temp Pulse Resp BP Pulse Ox 97.8 F 51 L 14 139/59 99 01/30/18 18:00 01/30/18 18:00 01/30/18 22:10 01/30/18 18:00 01/30/18 19:00 CBC, BMP 01/30/18 07:00 01/30/18 07:00 KATERIN/CKD Bleeding from ET tube B/L Pleural effusions Acute on Chronic Anemia Hypernatremia Proteinuria Possible UTI Hypokalemia
[2018-01-31] MEDS: INSULIN SLIDING SCALE (NOVOLOG) 1 VIAL SQ SCH ×5 (00:37→23:17)
[2018-01-31] MEDS ORDERED: PT OWN MED DRAWER 7, Y5N ONE ×6 (06:25→22:11)
[2018-01-31] MEDS: FUROSEMIDE 40 MG/4 ML INJECTABLE VIAL IVPUSH SCH ×2 (06:36→13:48)
[2018-01-31] MEDS: BACLOFEN 10 MG TABLET (FP) GT SCH ×3 (06:37→22:16)
[2018-01-31] MEDS: SODIUM CHLORIDE NASAL SPRAY 44 ML BOTTLE NS SCH ×3 (06:37→22:17)
[2018-01-31] MEDS: LEVOTHYROXINE NA 25 MCG TABLET (FP) PEG SCH (06:38)
[2018-01-31] MEDS ORDERED: INSULIN (NOVOLOG) ASPART 100 UNITS/ML 10ML VIAL ONE ×2 (07:00→12:40)
[2018-01-31 09:33] LABS: BASO % 0.5 % (0-2.0); EOS % 1.6 % (0-4.5); HEMATOCRIT 25.6 % (35.4-49); HEMOGLOBIN 8.3 GM/dL (11.7-16.9); MCH 26.6 pg (25.7-33.7); MCHC 32.3 g/dl (32.0-35.9); MEAN CELL VOLUME 82.3 fl (80-96); MEAN PLT VOLUME 10.4 fl (7.5-11.1); MONO % 6.2 % (3.8-10.2); NEUT % 61.7 % (42.8-82.8); PLATELET COUNT 139 K/MM3 (134-434); RBC 3.11 M/mm3 (4.00-5.60); RDW 22.1 % (11.9-15.9); WHITE BLOOD COUNT 4.3 K/mm3 (4.0-10.0)
--- NOTE | 2018-01-31 09:56 | PN ---
Progress Note, Physician History of Present Illness: This is an 87 yr old white man with h/o traumatic fall down stairs (admitted to [facility] about a month ago and had neck/back surgery, tracheotomy placement 2016 now with traumatic brain injury (TBI), ventilator dependent, and PEG tube placement), recent aspiration PNA, A-fib, CHF, DM, renal failure, TBI, legally blind and deaf; who is BIBA from [facility] in [place] for blood with clots suctioned from his tracheostomy tube yesterday , as well as anemia detected on his lab work today. 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 Per conversation with attending Dr. Yadiel Gallegos at [facility], yesterday the patient was noted to have bloody secretions suctioned from tracheostomy site , so CBC was checked. His Hct was 24 yesterday, which was down ~10 points from his prior values. They re-checked it again today and Hct was 21. [facility] checked his urine and there was a small amount of blood in it (not enough to explain the Hct drop). Their primary concern has been for GI bleed and FOBT was ordered but had not resulted at the time the patient was sent here. Received his noon medications and simethicone and a portion of his noon PEG tube feeding (had to be stopped early for transport). - Current Medication List Current Medications: Active Medications Baclofen (Lioresal -) 10 mg GT TID [facility] Last Admin: 01/31/18 06:37 Dose: 10 mg Furosemide (Lasix Injection -) 40 mg IVPUSH BID@0600,1400 [facility] Last Admin: 01/31/18 06:36 Dose: 40 mg Ertapenem 0.5 gm/ Sodium (Chloride) 50 mls @ 100 mls/hr IVPB DAILY@2200 [facility]; Protocol Insulin Aspart (Novolog Vial Sliding Scale -) 1 vial SQ Q6HPO [facility]; Protocol Last Admin: 01/31/18 06:37 Dose: 2 units Levothyroxine Sodium (Synthroid -) 37.5 mcg PEG DAILY@0700 [facility] Last Admin: 01/31/18 06:38 Dose: 37.5 mcg Mupirocin (Bactroban 2% Ointment -) 1 applic TP BID [facility] Last Admin: 01/30/18 21:55 Dose: 1 applic Oxybutynin Chloride (Ditropan -) 5 mg NGT BID [facility] Last Admin: 01/30/18 21:56 Dose: 5 mg Pantoprazole Sodium (Protonix Iv) 40 mg IVPUSH DAILY [facility] Last Admin: 01/30/18 10:06 Dose: 40 mg Potassium Chloride (Potassium Chloride Oral Liquid) 60 meq PO DAILY [facility] Last Admin: 01/30/18 06:11 Dose: 60 meq Sertraline HCl (Zoloft -) 25 mg NR DAILY [facility] Last Admin: 01/30/18 10:07 Dose: 25 mg Sodium Chloride ([place] Nasal [place] -) 2 spray NS TID [facility] Last Admin: 01/31/18 06:37 Dose: 2 spray - Objective Vital Signs: Vital Signs Temperature 98.9 F 01/31/18 06:00 Pulse Rate 46 L 01/31/18 06:00 Respiratory Rate 14 01/31/18 06:25 Blood Pressure 127/54 01/31/18 06:00 O2 Sat by Pulse Oximetry (%) 99 01/30/18 19:00 Eyes: Yes: WNL, Conjunctiva Clear, EOM Intact HENT: Yes: WNL, Atraumatic, Normocephalic Neck: Yes: WNL, Supple, Trachea Midline Cardiovascular: Yes: WNL, Regular Rate and Rhythm Respiratory: Yes: WNL, Regular, Mechanically Ventilated Gastrointestinal: Yes: WNL, Normal Bowel Sounds Genitourinary: Yes: WNL Musculoskeletal: Yes: WNL Extremities: Yes: WNL Edema: No Integumentary: Yes: WNL Neurological: Yes: WNL, Alert, Oriented ...Motor Strength: WNL Psychiatric: Yes: WNL Labs: CBC, BMP 01/31/18 09:02 INR, PTT INR 1.10 (0.82-1.09) 01/21/18 15:00 Assessment/Plan - Problems (1) Acute on chronic diastolic CHF (congestive heart failure) Assessment/Plan: ECHO: normal LVEF; mild-moderate MR On furosemide; may require restarting the dose, in view of further congestion; discussed with engineering mechanic. F/u BUN/Cr, electrolytes, daily weight, Is and Os. Code(s): I50.33 - ACUTE ON CHRONIC DIASTOLIC (CONGESTIVE) HEART FAILURE (2) Chronic respiratory failure Code(s): J96.10 - CHRONIC RESPIRATORY FAILURE, UNSP W HYPOXIA OR HYPERCAPNIA (3) Diabetes Code(s): E11.9 - TYPE 2 DIABETES MELLITUS WITHOUT COMPLICATIONS (4) Epistaxis Assessment/Plan: No further discharge. F/u Hb (stable today) Code(s): R04.0 - EPISTAXIS (5) Hemoptysis Code(s): R04.2 - HEMOPTYSIS (6) Hypothyroid Assessment/Plan: TSH wnl; on Synthroid Code(s): E03.9 - HYPOTHYROIDISM, UNSPECIFIED (7) S/P percutaneous endoscopic gastrostomy (PEG) tube placement Code(s): Z93.1 - GASTROSTOMY STATUS (8) TBI (traumatic brain injury) Code(s): S06.9X9A - UNSP INTRACRANIAL INJURY W LOC OF UNSP DURATION, INIT (9) Tracheostomy dependent Code(s): Z93.0 - TRACHEOSTOMY STATUS (10) Sinus bradycardia Code(s): R00.1 - BRADYCARDIA, UNSPECIFIED (11) PAF (paroxysmal atrial fibrillation) Code(s): I48.0 - PAROXYSMAL ATRIAL FIBRILLATION (12) Hypokalemia Code(s): E87.6 - HYPOKALEMIA anemia - f/u hct transgfuse as needed
[2018-01-31 10:10] LABS: CHLORIDE 110 mmol/L (98-107); POTASSIUM 4.2 mmol/L (3.5-5.1); SODIUM 144 mmol/L (136-145)
[2018-01-31 10:35] LABS: ALK PHOS 120 U/L (45-117); ANION GAP 7 (8-16); BILIRUBIN,TOTAL 0.3 mg/dL (0.2-1.0); BLOOD UREA NITROGEN 88 mg/dL (7-18); CO2 27 mmol/L (21-32); GLUCOSE,RANDOM 194 mg/dL (74-106); MAGNESIUM 2.3 mg/dL (1.8-2.4); SGOT/AST 216 U/L (15-37); SGPT/ALT 191 U/L (12-78); TOT PROT 6.1 g/dl (6.4-8.2)
[2018-01-31] MEDS: OXYBUTYNIN CHLORIDE 5 MG TABLET NGT SCH ×2 (10:55→22:16)
[2018-01-31] MEDS: SERTRALINE HCL 25 MG TABLET (FP) NR SCH (10:56)
[2018-01-31] MEDS: PANTOPRAZOLE SODIUM 40 MG VIAL IVPUSH SCH (10:56)
[2018-01-31] MEDS: MUPIROCIN 2% TOPICAL OINTMENT 22 GM TUBE TP SCH ×2 (10:56→22:17)
[2018-01-31] MEDS: POTASSIUM CHLORIDE ORAL LIQUID 20 MEQ/15 ML PO SCH ×2 (10:56→12:37)
--- NOTE | 2018-01-31 11:48 | PN ---
Progress Note, Physician History of Present Illness: patient having dirrhoea otherwise more responsive secretions - Current Medication List Current Medications: Active Medications Baclofen (Lioresal -) 10 mg GT TID [facility] Last Admin: 01/31/18 06:37 Dose: 10 mg Furosemide (Lasix Injection -) 40 mg IVPUSH BID@0600,1400 [facility] Last Admin: 01/31/18 06:36 Dose: 40 mg Ertapenem 0.5 gm/ Sodium (Chloride) 50 mls @ 100 mls/hr IVPB DAILY@2200 [facility]; Protocol Insulin Aspart (Novolog Vial Sliding Scale -) 1 vial SQ Q6HPO [facility]; Protocol Last Admin: 01/31/18 06:37 Dose: 2 units Levothyroxine Sodium (Synthroid -) 37.5 mcg PEG DAILY@0700 [facility] Last Admin: 01/31/18 06:38 Dose: 37.5 mcg Mupirocin (Bactroban 2% Ointment -) 1 applic TP BID [facility] Last Admin: 01/31/18 10:56 Dose: 1 applic Oxybutynin Chloride (Ditropan -) 5 mg NGT BID [facility] Last Admin: 01/31/18 10:55 Dose: 5 mg Pantoprazole Sodium (Protonix Iv) 40 mg IVPUSH DAILY [facility] Last Admin: 01/31/18 10:56 Dose: 40 mg Potassium Chloride (Potassium Chloride Oral Liquid) 60 meq PO DAILY [facility] Last Admin: 01/31/18 10:56 Dose: 60 meq Sertraline HCl (Zoloft -) 25 mg NR DAILY [facility] Last Admin: 01/31/18 10:56 Dose: 25 mg Sodium Chloride ([place] Nasal [place] -) 2 spray NS TID [facility] Last Admin: 01/31/18 06:37 Dose: 2 spray - Objective Vital Signs: Vital Signs Temperature 97.9 F 01/31/18 10:00 Pulse Rate 58 L 01/31/18 10:00 Respiratory Rate 14 01/31/18 10:00 Blood Pressure 130/56 01/31/18 10:00 O2 Sat by Pulse Oximetry (%) 99 01/30/18 19:00 Constitutional: Yes: Other Cardiovascular: Yes: S1, S2 Respiratory: Yes: Mechanically Ventilated, Other (trachestomy,secretions) Gastrointestinal: Yes: Soft, Other Musculoskeletal: Yes: WNL Extremities: Yes: WNL Neurological: Yes: Other Labs: CBC, BMP 01/31/18 09:02 01/31/18 09:02 INR, PTT INR 1.10 (0.82-1.09) 01/21/18 15:00 Assessment/Plan 87yo M with 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 He was found to have bright red bloody secretions suctioned from tracheostomy site.and now found to have esbl uti uti ac blood loos anemia Acute CHF Exacerbation S/p Tracheostomy Afib CKD DM2 Hypothyroidism plan continue current mgmt send stool sample for cdiff patient more responsive continue monitoring
--- NOTE | 2018-01-31 12:37 | PN ---
Progress Note (short form) - Note Progress Note: PULMONARY Vented, poorly responsive. No fevers recorded. Last Vital Signs Temp Pulse Resp BP Pulse Ox 97.9 F 58 L 14 130/56 99 01/31/18 10:00 01/31/18 10:00 01/31/18 10:00 01/31/18 10:00 01/30/18 19:00 Gen: vented, poorly responsive Heart: RRR Lung: scattered rhonchi Abd: soft, nontender Ext: no edema CBC, BMP 01/31/18 09:02 01/31/18 09:02 Active Medications Baclofen (Lioresal -) 10 mg GT TID [facility] Last Admin: 01/31/18 06:37 Dose: 10 mg Furosemide (Lasix Injection -) 40 mg IVPUSH BID@0600,1400 [facility] Last Admin: 01/31/18 06:36 Dose: 40 mg Ertapenem 0.5 gm/ Sodium (Chloride) 50 mls @ 100 mls/hr IVPB DAILY@2200 [facility]; Protocol Insulin Aspart (Novolog Vial Sliding Scale -) 1 vial SQ Q6HPO [facility]; Protocol Last Admin: 01/31/18 06:37 Dose: 2 units Levothyroxine Sodium (Synthroid -) 37.5 mcg PEG DAILY@0700 [facility] Last Admin: 01/31/18 06:38 Dose: 37.5 mcg Mupirocin (Bactroban 2% Ointment -) 1 applic TP BID [facility] Last Admin: 01/31/18 10:56 Dose: 1 applic Oxybutynin Chloride (Ditropan -) 5 mg NGT BID [facility] Last Admin: 01/31/18 10:55 Dose: 5 mg Pantoprazole Sodium (Protonix Iv) 40 mg IVPUSH DAILY [facility] Last Admin: 01/31/18 10:56 Dose: 40 mg Potassium Chloride (Potassium Chloride Oral Liquid) 60 meq PO DAILY [facility] Last Admin: 01/31/18 10:56 Dose: 60 meq Sertraline HCl (Zoloft -) 25 mg NR DAILY [facility] Last Admin: 01/31/18 10:56 Dose: 25 mg Sodium Chloride ([place] Nasal [place] -) 2 spray NS TID [facility] Last Admin: 01/31/18 06:37 Dose: 2 spray A/P Chronic Respiratory Failure Hemoptysis likely from Epistaxis Acute Blood Loss Anemia Acute Kidney Injury Atrial Fibrillation DM CHF h/o Traumatic Brain Injury - monitor H/H - transfuse as needed - continue lasix - monitor urine output, creatinine - O2 to keep SpO2 >90% - continue volume assist control - poor candidate for weaning at this time - DVT/GI prophylaxis
--- NOTE | 2018-01-31 16:37 | PN ---
Physical Exam: SUBJECTIVE: Patient seen and examined OBJECTIVE: Vital Signs Period Temp Pulse Resp BP Sys/Wills Pulse Ox Last 24 Hr 97.8 F-98.9 F 46-58 14-14 122-139/54-68 99 GENERAL: Somnolent; opens eyes to voice, does not follow commands. LUNGS: Breath sounds equal, on vent. Trach collar in place, dressing c/d/i, no bleeding HEART: Regular rate and rhythm, S1, S2 ABDOMEN: Soft, nontender, nondistended, normoactive bowel sounds, no guarding, no rebound EXTREMITIES: 2+ edema all four extremities, scrotal edema Laboratory Results - last 24 hr 01/22/18 01/30/18 01/30/18 06:02 16:59 23:09 WBC RBC Hgb Hct MCV MCH MCHC RDW Plt Count MPV Neutrophils % Lymphocytes % Monocytes % Eosinophils % Basophils % Nucleated RBC % Sodium Potassium Chloride Carbon Dioxide Anion Gap BUN Creatinine Creat Clearance w eGFR POC Glucometer [id number] 227 264 Random Glucose Calcium Magnesium Total Bilirubin AST ALT Alkaline Phosphatase Total Protein Albumin 01/31/18 01/31/18 01/31/18 06:16 09:02 09:02 WBC 4.3 RBC 3.11 L Hgb 8.3 L Hct 25.6 L MCV 82.3 MCH 26.6 MCHC 32.3 RDW 22.1 H Plt Count 139 MPV 10.4 Neutrophils % 61.7 Lymphocytes % 30.0 Monocytes % 6.2 Eosinophils % 1.6 Basophils % 0.5 Nucleated RBC % 0 Sodium 144 Potassium 4.2 Chloride 110 H Carbon Dioxide 27 Anion Gap 7 L BUN 88 H Creatinine 2.0 H Creat Clearance w eGFR 31.91 POC Glucometer 189 Random Glucose 194 H D Calcium 8.0 L Magnesium 2.3 Total Bilirubin 0.3 D AST 216 H ALT 191 H Alkaline Phosphatase 120 H Total Protein 6.1 L Albumin 2.0 L 01/31/18 12:39 WBC RBC Hgb Hct MCV MCH MCHC RDW Plt Count MPV Neutrophils % Lymphocytes % Monocytes % Eosinophils % Basophils % Nucleated RBC % Sodium Potassium Chloride Carbon Dioxide Anion Gap BUN Creatinine Creat Clearance w eGFR POC Glucometer 255 Random Glucose Calcium Magnesium Total Bilirubin AST ALT Alkaline Phosphatase Total Protein Albumin Active Medications Generic Name Dose Route Start Last Admin Trade Name Freq PRN Reason Stop Dose Admin Baclofen 10 mg 01/22/18 22:00 01/31/18 13:48 Lioresal - GT 10 mg TID LILIA Administration Furosemide 40 mg 01/29/18 14:00 01/31/18 13:48 Lasix Injection - IVPUSH 40 mg BID@0600,1400 L[facility] Administration Ertapenem 0.5 gm/ Sodium 50 mls @ 100 mls/hr 01/31/18 22:00 Chloride IVPB DAILY@2200 [facility] Protocol Insulin Aspart 1 vial 01/25/18 18:00 01/31/18 12:44 Novolog Vial Sliding Scale - SQ 6 units Q6HPO LILIA Administration Protocol Levothyroxine Sodium 37.5 mcg 01/23/18 07:00 01/31/18 06:38 Synthroid - PEG 37.5 mcg DAILY@0700 [facility] Administration Mupirocin 1 applic 01/29/18 14:00 01/31/18 10:56 Bactroban 2% Ointment - TP 1 applic BID [facility] Administration Oxybutynin Chloride 5 mg 01/22/18 22:00 01/31/18 10:55 Ditropan - NGT 5 mg BID [facility] Administration Pantoprazole Sodium 40 mg 01/23/18 10:00 01/31/18 10:56 Protonix Iv IVPUSH 40 mg DAILY [facility] Administration Potassium Chloride 60 meq 01/30/18 06:00 01/31/18 12:37 Potassium Chloride Oral Liquid PO Not Given DAILY [facility] Sertraline HCl 25 mg 01/23/18 10:00 01/31/18 10:56 Zoloft - NR 25 mg DAILY [facility] Administration Sodium Chloride 2 spray 01/26/18 22:00 01/31/18 13:48 [place] Nasal [place] - NS 2 spray TID LILIA Administration ASSESSMENT/PLAN 87 year-old male with PMH significant for diastolic heart failure, NIDDM, CKD, and 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 Admitted for bleeding around the trach site. Proteus ESBL UTI --afebrile 48 hours; no leukocytosis; 01/29 surveillance urine culture negative --continue ertapenem (day #6); finish 10 days prior to discharge Transaminitis --significant bump in transaminases, possible drug toxicity? Dr. Garza does not think ertapenem is source and recommends continuation of drug --01/31 CTAP: normal liver and contour; small amount periphepatic fluid Chronic calcific pancreatitis --stable Diarrhea --c. diff pending --US abdomen had showed fluid behind the bladder; discussed with radiologist Dr. Ferrell who read CTAP, the fluid is diarrhea in the rectum Acute blood loss anemia --bleeding from nose, trach, hemoptysis has resolved --transfused 1U PRBC on 01/21; two doses of venofer have been given --h/h remains stable --GI consult: monitor for s/s of bleeding, transfuse < 7, no other intervention at this time Chronic respiratory failure --oxygen requirements have remained steady at 30% FiO2 KATERIN on CKD --Cr 1.7 on admission, peaked at 2.3, now 2.0 --continue IV Lasix BID --strict I&Os, daily weights Urinary retention --patient has wet diapers but bladder scans consistently show 400cc+ --01/31 US bladder: >700cc's post void residual --reinsert christopher Acute on chronic diastolic heart failure --continue IV lasix Paroxysmal afib --rate well-controlled --not on anti-coagulation due to anemia, bleeding issues NIDDM --Novolog sliding scale coverage Hypothyroidism -continue levothyroxine Hypokalemia --repleted Functional quadraplegia FEN Fluids/Nutrition: Nepro 50mL/hr with 20mL/hr water flushes Electrolytes: replete as indicated DVT prophylaxis: SCDs Physical therapy: bedside ROM Dispo: continues to require inpatient care. Full code. Visit type - Emergency Visit Emergency Visit: Yes ED Registration Date: 01/21/18 Care time: The patient presented to the Emergency Department on the above date and was hospitalized for further evaluation of their emergent condition. - New Patient This patient is new to me today: No - Critical Care Critical Care patient: No
--- NOTE | 2018-01-31 18:24 | PN ---
Progress Note (short form) - Note Progress Note: covering PMhx of Traumatic brain injury vented via trach with PEG, DM, CKD, CHF, Afib presented with bright red blood from ET suctioning and found have acute anemia and Cr of 2. Current Medications Baclofen (Lioresal -) 10 mg GT TID [facility] Last Admin: 01/31/18 13:48 Dose: 10 mg Furosemide (Lasix Injection -) 40 mg IVPUSH BID@0600,1400 [facility] Last Admin: 01/31/18 13:48 Dose: 40 mg Ertapenem 0.5 gm/ Sodium (Chloride) 50 mls @ 100 mls/hr IVPB DAILY@2200 [facility]; Protocol Insulin Aspart (Novolog Vial Sliding Scale -) 1 vial SQ Q6HPO [facility]; Protocol Last Admin: 01/31/18 17:49 Dose: 2 units Levothyroxine Sodium (Synthroid -) 37.5 mcg PEG DAILY@0700 [facility] Last Admin: 01/31/18 06:38 Dose: 37.5 mcg Mupirocin (Bactroban 2% Ointment -) 1 applic TP BID [facility] Last Admin: 01/31/18 10:56 Dose: 1 applic Oxybutynin Chloride (Ditropan -) 5 mg NGT BID [facility] Last Admin: 01/31/18 10:55 Dose: 5 mg Pantoprazole Sodium (Protonix Iv) 40 mg IVPUSH DAILY [facility] Last Admin: 01/31/18 10:56 Dose: 40 mg Potassium Chloride (Potassium Chloride Oral Liquid) 60 meq PO DAILY [facility] Last Admin: 01/31/18 12:37 Dose: Not Given Sertraline HCl (Zoloft -) 25 mg NR DAILY [facility] Last Admin: 01/31/18 10:56 Dose: 25 mg Sodium Chloride ([place] -) 2 spray NS TID [facility] Last Admin: 01/31/18 13:48 Dose: 2 spray Last Vital Signs Temp Pulse Resp BP Pulse Ox 97.5 F L 55 L 14 140/60 99 01/31/18 18:00 01/31/18 18:00 01/31/18 18:00 01/31/18 18:00 01/30/18 19:00 CBC, BMP 01/31/18 09:02 01/31/18 09:02 KATERIN/CKD Bleeding from ET tube B/L Pleural effusions Acute on Chronic Anemia Hypernatremia Proteinuria Possible UTI Hypokalemia
[2018-01-31] MEDS: ERTAPENEM SODIUM 0.5 GM in SODIUM CHLORIDE 50 ML IVPB SCH (22:16)
[2018-02-01] MEDS: BACLOFEN 10 MG TABLET (FP) GT SCH ×3 (06:19→22:35)
[2018-02-01] MEDS: FUROSEMIDE 40 MG/4 ML INJECTABLE VIAL IVPUSH SCH (06:19)
[2018-02-01] MEDS: LEVOTHYROXINE NA 25 MCG TABLET (FP) PEG SCH (06:20)
[2018-02-01] MEDS: SODIUM CHLORIDE NASAL SPRAY 44 ML BOTTLE NS SCH ×3 (06:21→22:36)
[2018-02-01] MEDS: INSULIN SLIDING SCALE (NOVOLOG) 1 VIAL SQ SCH ×5 (07:02→23:08)
[2018-02-01] MEDS ORDERED: INSULIN (NOVOLOG) ASPART 100 UNITS/ML 10ML VIAL ONE ×3 (07:04→18:12)
[2018-02-01] MEDS ORDERED: PT OWN MED DRAWER 7, Y5N ONE ×6 (07:05→21:58)
--- NOTE | 2018-02-01 09:03 | PN ---
Progress Note, Physician History of Present Illness: This is an 87 yr old white man with h/o traumatic fall down stairs (admitted to [facility] about a month ago and had neck/back surgery, tracheotomy placement 2016 now with traumatic brain injury (TBI), ventilator dependent, and PEG tube placement), recent aspiration PNA, A-fib, CHF, DM, renal failure, TBI, legally blind and deaf; who is BIBA from [facility] in [place] for blood with clots suctioned from his tracheostomy tube yesterday , as well as anemia detected on his lab work today. 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 Per conversation with attending Dr. Yadiel Gallegos at [facility], yesterday the patient was noted to have bloody secretions suctioned from tracheostomy site , so CBC was checked. His Hct was 24 yesterday, which was down ~10 points from his prior values. They re-checked it again today and Hct was 21. [facility] checked his urine and there was a small amount of blood in it (not enough to explain the Hct drop). Their primary concern has been for GI bleed and FOBT was ordered but had not resulted at the time the patient was sent here. Received his noon medications and simethicone and a portion of his noon PEG tube feeding (had to be stopped early for transport). - Current Medication List Current Medications: Active Medications Baclofen (Lioresal -) 10 mg GT TID [facility] Last Admin: 02/01/18 06:19 Dose: 10 mg Furosemide (Lasix Injection -) 40 mg IVPUSH BID@0600,1400 [facility] Last Admin: 02/01/18 06:19 Dose: 40 mg Ertapenem 0.5 gm/ Sodium (Chloride) 50 mls @ 100 mls/hr IVPB DAILY@2200 [facility]; Protocol Last Admin: 01/31/18 22:16 Dose: 100 mls/hr Insulin Aspart (Novolog Vial Sliding Scale -) 1 vial SQ Q6HPO [facility]; Protocol Last Admin: 02/01/18 07:02 Dose: 4 units Levothyroxine Sodium (Synthroid -) 37.5 mcg PEG DAILY@0700 [facility] Last Admin: 02/01/18 06:20 Dose: 37.5 mcg Mupirocin (Bactroban 2% Ointment -) 1 applic TP BID [facility] Last Admin: 01/31/18 22:17 Dose: 1 applic Oxybutynin Chloride (Ditropan -) 5 mg NGT BID [facility] Last Admin: 01/31/18 22:16 Dose: 5 mg Pantoprazole Sodium (Protonix Iv) 40 mg IVPUSH DAILY [facility] Last Admin: 01/31/18 10:56 Dose: 40 mg Potassium Chloride (Potassium Chloride Oral Liquid) 60 meq PO DAILY [facility] Last Admin: 01/31/18 12:37 Dose: Not Given Sertraline HCl (Zoloft -) 25 mg NR DAILY [facility] Last Admin: 01/31/18 10:56 Dose: 25 mg Sodium Chloride ([place]al [place] -) 2 spray NS TID [facility] Last Admin: 02/01/18 06:21 Dose: 2 spray - Objective Vital Signs: Vital Signs Temperature 98.5 F 02/01/18 06:00 Pulse Rate 51 L 02/01/18 08:19 Respiratory Rate 17 02/01/18 08:19 Blood Pressure 130/68 02/01/18 06:00 O2 Sat by Pulse Oximetry (%) 98 02/01/18 08:19 Eyes: Yes: WNL, Conjunctiva Clear, EOM Intact HENT: Yes: WNL, Atraumatic, Normocephalic Neck: Yes: WNL, Supple, Trachea Midline Cardiovascular: Yes: WNL, Regular Rate and Rhythm Respiratory: Yes: Mechanically Ventilated Gastrointestinal: Yes: WNL, Normal Bowel Sounds Genitourinary: Yes: WNL Musculoskeletal: Yes: WNL Extremities: Yes: WNL Edema: No Integumentary: Yes: WNL Neurological: Yes: WNL, Alert, Oriented ...Motor Strength: WNL Psychiatric: Yes: WNL Labs: CBC, BMP 01/31/18 09:02 01/31/18 09:02 INR, PTT INR 1.10 (0.82-1.09) 01/21/18 15:00 Assessment/Plan - Problems (1) Acute on chronic diastolic CHF (congestive heart failure) Assessment/Plan: ECHO: normal LVEF; mild-moderate MR On furosemide; may require restarting the dose, in view of further congestion; discussed with forensic document examiner. F/u BUN/Cr, electrolytes, daily weight, Is and Os. Code(s): I50.33 - ACUTE ON CHRONIC DIASTOLIC (CONGESTIVE) HEART FAILURE (2) Chronic respiratory failure Code(s): J96.10 - CHRONIC RESPIRATORY FAILURE, UNSP W HYPOXIA OR HYPERCAPNIA (3) Diabetes Code(s): E11.9 - TYPE 2 DIABETES MELLITUS WITHOUT COMPLICATIONS (4) Epistaxis Assessment/Plan: No further discharge. F/u Hb (stable today) Code(s): R04.0 - EPISTAXIS (5) Hemoptysis Code(s): R04.2 - HEMOPTYSIS (6) Hypothyroid Assessment/Plan: TSH wnl; on Synthroid Code(s): E03.9 - HYPOTHYROIDISM, UNSPECIFIED (7) S/P percutaneous endoscopic gastrostomy (PEG) tube placement Code(s): Z93.1 - GASTROSTOMY STATUS (8) TBI (traumatic brain injury) Code(s): S06.9X9A - UNSP INTRACRANIAL INJURY W LOC OF UNSP DURATION, INIT (9) Tracheostomy dependent Code(s): Z93.0 - TRACHEOSTOMY STATUS (10) Sinus bradycardia Code(s): R00.1 - BRADYCARDIA, UNSPECIFIED (11) PAF (paroxysmal atrial fibrillation) Code(s): I48.0 - PAROXYSMAL ATRIAL FIBRILLATION (12) Hypokalemia Code(s): E87.6 - HYPOKALEMIA anemia - f/u hct transgfuse as needed
[2018-02-01] MEDS: POTASSIUM CHLORIDE ORAL LIQUID 20 MEQ/15 ML PO SCH (09:04)
[2018-02-01] MEDS: SERTRALINE HCL 25 MG TABLET (FP) NR SCH (09:06)
[2018-02-01] MEDS: OXYBUTYNIN CHLORIDE 5 MG TABLET NGT SCH ×2 (09:06→22:35)
[2018-02-01] MEDS: PANTOPRAZOLE SODIUM 40 MG VIAL IVPUSH SCH (09:20)
[2018-02-01] MEDS: MUPIROCIN 2% TOPICAL OINTMENT 22 GM TUBE TP SCH ×2 (09:20→22:35)
--- NOTE | 2018-02-01 11:38 | PN ---
Progress Note (short form) - Note Progress Note: PULMONARY Vented, poorly responsive. No fevers recorded. Last Vital Signs Temp Pulse Resp BP Pulse Ox 97.9 F 57 L 16 113/55 97 02/01/18 09:33 02/01/18 09:33 02/01/18 11:27 02/01/18 09:33 02/01/18 11:28 Gen: vented, poorly responsive Heart: RRR Lung: scattered rhonchi Abd: soft, nontender Ext: no edema CBC, BMP 01/31/18 09:02 01/31/18 09:02 Active Medications Baclofen (Lioresal -) 10 mg GT TID [facility] Last Admin: 02/01/18 06:19 Dose: 10 mg Furosemide (Lasix Injection -) 40 mg IVPUSH BID@0600,1400 [facility] Last Admin: 02/01/18 06:19 Dose: 40 mg Ertapenem 0.5 gm/ Sodium (Chloride) 50 mls @ 100 mls/hr IVPB DAILY@2200 [facility]; Protocol Last Admin: 01/31/18 22:16 Dose: 100 mls/hr Insulin Aspart (Novolog Vial Sliding Scale -) 1 vial SQ Q6HPO [facility]; Protocol Last Admin: 02/01/18 07:02 Dose: 4 units Levothyroxine Sodium (Synthroid -) 37.5 mcg PEG DAILY@0700 [facility] Last Admin: 02/01/18 06:20 Dose: 37.5 mcg Mupirocin (Bactroban 2% Ointment -) 1 applic TP BID [facility] Last Admin: 02/01/18 09:20 Dose: 1 applic Non-Formulary Medication (Patient's Own Med) 1 each PO DAILY [facility] Oxybutynin Chloride (Ditropan -) 5 mg NGT BID [facility] Last Admin: 02/01/18 09:06 Dose: 5 mg Pantoprazole Sodium (Protonix Iv) 40 mg IVPUSH DAILY [facility] Last Admin: 02/01/18 09:20 Dose: 40 mg Potassium Chloride (Potassium Chloride Oral Liquid) 60 meq PO DAILY [facility] Last Admin: 02/01/18 09:04 Dose: 60 meq Sertraline HCl (Zoloft -) 25 mg NR DAILY [facility] Last Admin: 02/01/18 09:06 Dose: 25 mg Sodium Chloride ([place] Nasal [place] -) 2 spray NS TID [facility] Last Admin: 02/01/18 06:21 Dose: 2 spray A/P Chronic Respiratory Failure Hemoptysis likely from Epistaxis Acute Blood Loss Anemia Acute Kidney Injury Atrial Fibrillation DM CHF h/o Traumatic Brain Injury - monitor H/H - transfuse as needed - continue lasix - monitor urine output, creatinine - O2 to keep SpO2 >90% - continue volume assist control - poor candidate for weaning at this time - DVT/GI prophylaxis
[2018-02-01] MEDS: [UNRECOGNIZED DRUG - OTHER] PO SCH (12:00)
--- NOTE | 2018-02-01 12:23 | PN ---
Physical Exam: SUBJECTIVE: Patient seen and examined at bedside. OBJECTIVE: Vital Signs Period Temp Pulse Resp BP Sys/Wills Pulse Ox Last 24 Hr 97.5 F-98.6 F 44-57 14-26 113-140/54-68 97-99 GENERAL: Somnolent; active resistance to opening eyes, moving arms; does not follow commands LUNGS: Anterior breath sounds CTA, mechanical vent sounds; trach dressing clean and dry HEART: Regular rate and rhythm, S1, S2 ABDOMEN: Soft, nontender, nondistended, normoactive bowel sounds, no guarding, no rebound UPPER EXTREMITIES: 2+ pulses, warm, well-perfused, 2+ edema b/l LOWER EXTREMITIES: 2+ pulses, warm, well-perfused, no edema Laboratory Results - last 24 hr 02/01/18 02/01/18 02/01/18 11:41 13:40 13:40 WBC 4.1 RBC 3.23 L Hgb 8.5 L Hct 27.0 L MCV 83.4 MCH 26.4 MCHC 31.7 L RDW 22.3 H Plt Count 156 MPV 10.1 Neutrophils % 68.6 Lymphocytes % 22.6 D Monocytes % 6.4 Eosinophils % 2.1 Basophils % 0.3 Nucleated RBC % 0 Sodium 141 Potassium 4.2 Chloride 107 Carbon Dioxide 29 Anion Gap 5 L BUN 84 H Creatinine 1.9 H Creat Clearance w eGFR 33.86 POC Glucometer 175 Random Glucose 156 H Calcium 8.0 L Magnesium 2.3 Total Bilirubin 0.4 D AST 258 H ALT 240 H D Alkaline Phosphatase 164 H D Total Protein 6.5 Albumin 2.1 L Current Medications Generic Name Dose Route Start Last Admin Trade Name Jose PRN Reason Stop Dose Admin Baclofen 10 mg 01/22/18 22:00 02/01/18 13:01 Lioresal - GT 10 mg TID [facility] Administration Ertapenem 0.5 gm/ Sodium 50 mls @ 100 mls/hr 01/31/18 22:00 01/31/18 22:16 Chloride IVPB 100 mls/hr DAILY@2200 [facility] Administration Protocol Furosemide 100 mg/ Sodium 50 mls @ 2.5 mls/hr 02/01/18 14:00 Chloride IVPB TITR [facility] Protocol 5 MG/HR Insulin Aspart 1 vial 01/25/18 18:00 02/01/18 11:42 Novolog Vial Sliding Scale - SQ 2 units Q6HPO [facility] Administration Protocol Levothyroxine Sodium 37.5 mcg 01/23/18 07:00 02/01/18 06:20 Synthroid - PEG 37.5 mcg DAILY@0700 [facility] Administration Mupirocin 1 applic 01/29/18 14:00 02/01/18 09:20 Bactroban 2% Ointment - TP 1 applic BID [facility] Administration 1 each 02/01/18 11:30 02/01/18 12:00 Probiotis (Nf Pt's PO 1 each Own Med) DAILY [facility] Administration Oxybutynin Chloride 5 mg 01/22/18 22:00 02/01/18 09:06 Ditropan - NGT 5 mg BID [facility] Administration Pantoprazole Sodium 40 mg 01/23/18 10:00 02/01/18 09:20 Protonix Iv IVPUSH 40 mg DAILY [facility] Administration Potassium Chloride 60 meq 01/30/18 06:00 02/01/18 09:04 Potassium Chloride Oral Liquid PO 60 meq DAILY [facility] Administration Sertraline HCl 25 mg 01/23/18 10:00 02/01/18 09:06 Zoloft - NR 25 mg DAILY [facility] Administration Sodium Chloride 2 spray 01/26/18 22:00 02/01/18 13:01 [place] Nasal [place] - NS 2 spray TID [facility] Administration ASSESSMENT/PLAN 87 year-old male with PMH significant for diastolic heart failure, NIDDM, CKD, and 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 Admitted for bleeding around the trach site. Proteus ESBL UTI --afebrile 48 hours; no leukocytosis; 01/29 surveillance urine culture negative --continue ertapenem (day #7); finish 14 days Transaminitis --significant bump in transaminases, possible drug toxicity? Dr. Garza does not think ertapenem is source and recommends continuation of drug --02/01 CTAP: normal liver and contour; small amount periphepatic fluid --request re-consult by GI Chronic calcific pancreatitis --stable Diarrhea --c. diff pending --US abdomen had showed fluid behind the bladder; discussed with radiologist Dr. Ferrell who read CTAP, the fluid is diarrhea in the rectum Acute blood loss anemia --bleeding from nose, trach, hemoptysis has resolved --transfused 1U PRBC on 01/21; two doses of venofer have been give --h/h remains stable --GI consult: monitor for s/s of bleeding, transfuse < 7, no other intervention at this time Chronic respiratory failure --oxygen requirements have remained steady despite chronic large bilateral pleural effusions KATERIN on CKD Volume overload --Cr 1.7 on admission, peaked at 2.3, now 2.0 --weight up 3kg in past week --over past 4 days, fluid positive 5L --CTAP shows body wall edema, with upper extremity edema, bilateral pleural effusions --start Lasix drip, titrate to net negative balance --strict I&Os, daily weights Urinary retention --patient has wet diapers but bladder scans consistently show 400cc+ --01/31 US bladder: >700cc's post void residual --reinsert christopher Acute on chronic diastolic heart failure --continue IV lasix Paroxysmal afib --rate well-controlled --not on anti-coagulation due to anemia, bleeding issues NIDDM --Novolog sliding scale coverage Hypothyroidism -continue levothyroxine Hypokalemia --repleted Functional quadraplegia FEN Fluids/Nutrition: Nepro 50mL/hr with 20mL/hr water flushes Electrolytes: replete as indicated DVT prophylaxis: SCDs Physical therapy: bedside ROM Dispo: continues to require inpatient care. Full code. Visit type - Emergency Visit Emergency Visit: Yes ED Registration Date: 01/21/18 Care time: The patient presented to the Emergency Department on the above date and was hospitalized for further evaluation of their emergent condition. - New Patient This patient is new to me today: No - Critical Care Critical Care patient: No
--- NOTE | 2018-02-01 12:30 | PN ---
Progress Note, Physician History of Present Illness: stable still with dirrhoea - Current Medication List Current Medications: Active Medications Baclofen (Lioresal -) 10 mg GT TID [facility] Last Admin: 02/01/18 06:19 Dose: 10 mg Furosemide (Lasix Injection -) 40 mg IVPUSH BID@0600,1400 [facility] Last Admin: 02/01/18 06:19 Dose: 40 mg Ertapenem 0.5 gm/ Sodium (Chloride) 50 mls @ 100 mls/hr IVPB DAILY@2200 [facility]; Protocol Last Admin: 01/31/18 22:16 Dose: 100 mls/hr Insulin Aspart (Novolog Vial Sliding Scale -) 1 vial SQ Q6HPO [facility]; Protocol Last Admin: 02/01/18 11:42 Dose: 2 units Levothyroxine Sodium (Synthroid -) 37.5 mcg PEG DAILY@0700 [facility] Last Admin: 02/01/18 06:20 Dose: 37.5 mcg Mupirocin (Bactroban 2% Ointment -) 1 applic TP BID [facility] Last Admin: 02/01/18 09:20 Dose: [address]Formulated [place] ( Pt's Own Med) 1 each PO DAILY [facility] Oxybutynin Chloride (Ditropan -) 5 mg NGT BID [facility] Last Admin: 02/01/18 09:06 Dose: 5 mg Pantoprazole Sodium (Protonix Iv) 40 mg IVPUSH DAILY [facility] Last Admin: 02/01/18 09:20 Dose: 40 mg Potassium Chloride (Potassium Chloride Oral Liquid) 60 meq PO DAILY [facility] Last Admin: 02/01/18 09:04 Dose: 60 meq Sertraline HCl (Zoloft -) 25 mg NR DAILY [facility] Last Admin: 02/01/18 09:06 Dose: 25 mg Sodium Chloride ([place] Nasal [place] -) 2 spray NS TID [facility] Last Admin: 02/01/18 06:21 Dose: 2 spray - Objective Vital Signs: Vital Signs Temperature 97.9 F 02/01/18 09:33 Pulse Rate 57 L 02/01/18 09:33 Respiratory Rate 16 02/01/18 11:27 Blood Pressure 113/55 02/01/18 09:33 O2 Sat by Pulse Oximetry (%) 97 02/01/18 11:28 Constitutional: Yes: Other Cardiovascular: Yes: S1, S2 Respiratory: Yes: Mechanically Ventilated, Other (tracheostomy in place) Gastrointestinal: Yes: Normal Bowel Sounds, Soft, Other (peg tube in place) Musculoskeletal: Yes: WNL Extremities: Yes: WNL Neurological: Yes: Other Psychiatric: Yes: Other Labs: CBC, BMP 01/31/18 09:02 01/31/18 09:02 INR, PTT INR 1.10 (0.82-1.09) 01/21/18 15:00 Assessment/Plan 87yo M with 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 He was found to have bright red bloody secretions suctioned from tracheostomy site.and now found to have esbl uti uti ac blood loos anemia Acute CHF Exacerbation S/p Tracheostomy Afib CKD DM2 Hypothyroidism plan continue current mgmt await for cdiff results finish 14 days of invanz nutrition rest as per the team
[2018-02-01 13:52] LABS: BASO % 0.3 % (0-2.0); EOS % 2.1 % (0-4.5); HEMOGLOBIN 8.5 GM/dL (11.7-16.9); LYMPH % 22.6 % (8-40); MCH 26.4 pg (25.7-33.7); MCHC 31.7 g/dl (32.0-35.9); MEAN CELL VOLUME 83.4 fl (80-96); MEAN PLT VOLUME 10.1 fl (7.5-11.1); MONO % 6.4 % (3.8-10.2); NEUT % 68.6 % (42.8-82.8); PLATELET COUNT 156 K/MM3 (134-434); RBC 3.23 M/mm3 (4.00-5.60); RDW 22.3 % (11.9-15.9); WHITE BLOOD COUNT 4.1 K/mm3 (4.0-10.0)
[2018-02-01 14:24] LABS: ALBUMIN 2.1 g/dl (3.4-5.0); ANION GAP 5 (8-16); BLOOD UREA NITROGEN 84 mg/dL (7-18); CHLORIDE 107 mmol/L (98-107); CO2 29 mmol/L (21-32); CREATININE 1.9 mg/dL (0.7-1.3); GLUCOSE,RANDOM 156 mg/dL (74-106); MAGNESIUM 2.3 mg/dL (1.8-2.4); POTASSIUM 4.2 mmol/L (3.5-5.1); SGOT/AST 258 U/L (15-37); SGPT/ALT 240 U/L (12-78); SODIUM 141 mmol/L (136-145)
[2018-02-01 14:26] LABS: ALK PHOS 164 U/L (45-117); BILIRUBIN,TOTAL 0.4 mg/dL (0.2-1.0); TOT PROT 6.5 g/dl (6.4-8.2)
[2018-02-01] MEDS: FUROSEMIDE INJECTION 100 MG in SODIUM CHLORIDE 40 ML IVPB SCH (17:06)
--- NOTE | 2018-02-01 21:02 | PN ---
Progress Note (short form) - Note Progress Note: covering PMhx of Traumatic brain injury vented via trach with PEG, DM, CKD, CHF, Afib presented with bright red blood from ET suctioning and found have acute anemia and Cr of 2. Current Medications Baclofen (Lioresal -) 10 mg GT TID [facility] Last Admin: 02/01/18 13:01 Dose: 10 mg Ertapenem 0.5 gm/ Sodium (Chloride) 50 mls @ 100 mls/hr IVPB DAILY@2200 [facility]; Protocol Last Admin: 01/31/18 22:16 Dose: 100 mls/hr Furosemide 100 mg/ Sodium (Chloride) 50 mls @ 2.5 mls/hr IVPB TITR [facility]; Protocol Last Admin: 02/01/18 17:06 Dose: 5 mg/hr, 2.5 mls/hr Insulin Aspart (Novolog Vial Sliding Scale -) 1 vial SQ Q6HPO [facility]; Protocol Last Admin: 02/01/18 17:05 Dose: 2 units Levothyroxine Sodium (Synthroid -) 37.5 mcg PEG DAILY@0700 [facility] Last Admin: 02/01/18 06:20 Dose: 37.5 mcg Mupirocin (Bactroban 2% Ointment -) 1 applic TP BID [facility] Last Admin: 02/01/18 09:20 Dose: [address]Formulated [place] ( Pt's Own Med) 1 each PO DAILY [facility] Last Admin: 02/01/18 12:00 Dose: 1 each Oxybutynin Chloride (Ditropan -) 5 mg NGT BID [facility] Last Admin: 02/01/18 09:06 Dose: 5 mg Pantoprazole Sodium (Protonix Iv) 40 mg IVPUSH DAILY [facility] Last Admin: 02/01/18 09:20 Dose: 40 mg Potassium Chloride (Potassium Chloride Oral Liquid) 60 meq PO DAILY [facility] Last Admin: 02/01/18 09:04 Dose: 60 meq Sertraline HCl (Zoloft -) 25 mg NR DAILY [facility] Last Admin: 02/01/18 09:06 Dose: 25 mg Sodium Chloride ([place] Nasal [place] -) 2 spray NS TID [facility] Last Admin: 02/01/18 13:01 Dose: 2 spray Last Vital Signs Temp Pulse Resp BP Pulse Ox 97.3 F L 51 L 14 125/64 97 02/01/18 18:00 05/28/18 18:00 02/01/18 18:27 02/01/18 18:00 02/01/18 11:28 Lungs clear Heart reg Abd soft CBC, BMP 02/01/18 13:40 02/01/18 13:40 KATERIN/CKD Bleeding from ET tube B/L Pleural effusions Acute on Chronic Anemia Hypernatremia Proteinuria Possible UTI Hypokalemia renal function near baseline
[2018-02-01] MEDS: ERTAPENEM SODIUM 0.5 GM in SODIUM CHLORIDE 50 ML IVPB SCH (22:36)
[2018-02-02] MEDS: BACLOFEN 10 MG TABLET (FP) GT SCH ×3 (05:28→22:57)
[2018-02-02] MEDS: INSULIN SLIDING SCALE (NOVOLOG) 1 VIAL SQ SCH ×4 (05:28→23:25)
[2018-02-02] MEDS: SODIUM CHLORIDE NASAL SPRAY 44 ML BOTTLE NS SCH ×3 (05:28→22:57)
[2018-02-02] MEDS: LEVOTHYROXINE NA 25 MCG TABLET (FP) PEG SCH (06:01)
[2018-02-02] MEDS ORDERED: INSULIN (NOVOLOG) ASPART 100 UNITS/ML 10ML VIAL ONE ×3 (06:50→17:38)
[2018-02-02] MEDS ORDERED: PT OWN MED DRAWER 7, Y5N ONE ×4 (06:50→22:50)
[2018-02-02] MEDS: SERTRALINE HCL 25 MG TABLET (FP) NR SCH (09:09)
[2018-02-02] MEDS: [UNRECOGNIZED DRUG - OTHER] PO SCH (09:09)
[2018-02-02] MEDS: OXYBUTYNIN CHLORIDE 5 MG TABLET NGT SCH ×2 (09:09→22:56)
[2018-02-02] MEDS: MUPIROCIN 2% TOPICAL OINTMENT 22 GM TUBE TP SCH ×2 (09:10→22:58)
[2018-02-02] MEDS: POTASSIUM CHLORIDE ORAL LIQUID 20 MEQ/15 ML PO SCH (09:10)
[2018-02-02] MEDS: PANTOPRAZOLE SODIUM 40 MG VIAL IVPUSH SCH (09:10)
[2018-02-02] MEDS: FUROSEMIDE INJECTION 100 MG in SODIUM CHLORIDE 40 ML IVPB SCH ×2 (09:11→13:24)
[2018-02-02 10:28] LABS: BASO % 0.4 % (0-2.0); EOS % 1.2 % (0-4.5); HEMATOCRIT 26.2 % (35.4-49); HEMOGLOBIN 8.5 GM/dL (11.7-16.9); LYMPH % 27.2 % (8-40); MCH 26.6 pg (25.7-33.7); MCHC 32.4 g/dl (32.0-35.9); MEAN CELL VOLUME 82.2 fl (80-96); MONO % 6.5 % (3.8-10.2); NEUT % 64.7 % (42.8-82.8); PLATELET COUNT 145 K/MM3 (134-434); RBC 3.19 M/mm3 (4.00-5.60); WHITE BLOOD COUNT 5.1 K/mm3 (4.0-10.0)
[2018-02-02 10:54] LABS: ALBUMIN 2.1 g/dl (3.4-5.0); ANION GAP 8 (8-16); BLOOD UREA NITROGEN 83 mg/dL (7-18); CALCIUM 8.2 mg/dL (8.5-10.1); CHLORIDE 106 mmol/L (98-107); CO2 26 mmol/L (21-32); GLUCOSE,RANDOM 111 mg/dL (74-106); MAGNESIUM 2.1 mg/dL (1.8-2.4); POTASSIUM 4.3 mmol/L (3.5-5.1); SODIUM 140 mmol/L (136-145)
[2018-02-02 10:57] LABS: ALK PHOS 122 U/L (45-117); BILIRUBIN,TOTAL 0.4 mg/dL (0.2-1.0); CREATININE 1.8 mg/dL (0.7-1.3); SGOT/AST 136 U/L (15-37); SGPT/ALT 176 U/L (12-78); TOT PROT 6.4 g/dl (6.4-8.2)
[2018-02-02 11:33] LABS: ANISOCYTOSIS 2+; MACROCYTOSIS 1+; PLATELET ESTIMATE NORMAL
--- NOTE | 2018-02-02 13:10 | PN ---
Progress Note, Physician History of Present Illness: patient with lasix drip more stable more awake - Current Medication List Current Medications: Active Medications Baclofen (Lioresal -) 10 mg GT TID [facility] Last Admin: 02/02/18 05:28 Dose: 10 mg Ertapenem 0.5 gm/ Sodium (Chloride) 50 mls @ 100 mls/hr IVPB DAILY@2200 [facility]; Protocol Last Admin: 02/01/18 22:36 Dose: 100 mls/hr Furosemide 100 mg/ Sodium (Chloride) 50 mls @ 2.5 mls/hr IVPB TITR [facility]; Protocol Last Admin: 02/02/18 09:11 Dose: 5 mg/hr, 2.5 mls/hr Insulin Aspart (Novolog Vial Sliding Scale -) 1 vial SQ Q6HPO [facility]; Protocol Last Admin: 02/02/18 11:39 Dose: Not Given Levothyroxine Sodium (Synthroid -) 37.5 mcg PEG DAILY@0700 [facility] Last Admin: 02/02/18 06:01 Dose: 37.5 mcg Mupirocin (Bactroban 2% Ointment -) 1 applic TP BID [facility] Last Admin: 02/02/18 09:10 Dose: 1 applic Probiotis ( Pt's Own Med) 1 each PO DAILY [facility] Last Admin: 02/02/18 09:09 Dose: 1 each Oxybutynin Chloride (Ditropan -) 5 mg NGT BID [facility] Last Admin: 02/02/18 09:09 Dose: 5 mg Pantoprazole Sodium (Protonix Iv) 40 mg IVPUSH DAILY [facility] Last Admin: 02/02/18 09:10 Dose: 40 mg Potassium Chloride (Potassium Chloride Oral Liquid) 60 meq PO DAILY [facility] Last Admin: 02/02/18 09:10 Dose: 60 meq Sertraline HCl (Zoloft -) 25 mg NR DAILY [facility] Last Admin: 02/02/18 09:09 Dose: 25 mg Sodium Chloride ([place] Nasal [place] -) 2 spray NS TID [facility] Last Admin: 02/02/18 05:28 Dose: 2 spray - Objective Vital Signs: Vital Signs Temperature 97.9 F 02/02/18 10:00 Pulse Rate 46 L 02/02/18 10:00 Respiratory Rate 16 02/02/18 11:54 Blood Pressure 132/56 02/02/18 10:00 O2 Sat by Pulse Oximetry (%) 98 02/02/18 10:00 Constitutional: Yes: Calm Cardiovascular: Yes: Regular Rate and Rhythm Respiratory: Yes: Mechanically Ventilated, Other (trach,minimal secretions) Gastrointestinal: Yes: Normal Bowel Sounds, Soft, Other (peg tube) Integumentary: Yes: Other Neurological: Yes: Other Labs: CBC, BMP 02/02/18 10:00 02/02/18 10:00 INR, PTT INR 1.10 (0.82-1.09) 01/21/18 15:00 Assessment/Plan 87yo M with 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 He was found to have bright red bloody secretions suctioned from tracheostomy site.and now found to have esbl uti uti ac blood loos anemia Acute CHF Exacerbation S/p Tracheostomy Afib CKD DM2 Hypothyroidism plan continue current mgmt await for cdiff results finish 14 days of invanz nutrition rest as per the team
--- NOTE | 2018-02-02 13:42 | PN ---
Physical Exam: SUBJECTIVE: Patient seen and examined at the bedside. He is non verbal at baseline. OBJECTIVE: re start feeds at a low rate and titrate upwards slowly Lasix drip initiated for anasarca Vital Signs Period Temp Pulse Resp BP Sys/Wills Pulse Ox Last 24 Hr 97.3 F-98.9 F 46-91 14-16 123-140/54-64 97-99 GENERAL: The patient is awake, alert, non verbal at baseline HEAD: Normal with no signs of trauma. EYES: PERRL, extraocular movements intact, sclera anicteric, conjunctiva clear. No ptosis. ENT: Ears normal, nares patent, oropharynx clear without exudates, moist mucous membranes. NECK: trach tube, no further hemoptysis LUNGS: Breath sounds equal, clear to auscultation anteriorly HEART: Regular rate and rhythm ABDOMEN: + peg tube NEUROLOGICAL: Non verbal at baseline PSYCH: Normal mood, normal affect. SKIN: Warm, dry, normal turgor, no rashes or lesions noted Laboratory Results - last 24 hr 02/01/18 02/01/18 02/01/18 13:40 13:40 16:53 WBC 4.1 RBC 3.23 L Hgb 8.5 L Hct 27.0 L MCV 83.4 MCH 26.4 MCHC 31.7 L RDW 22.3 H Plt Count 156 MPV 10.1 Neutrophils % 68.6 Lymphocytes % 22.6 D Monocytes % 6.4 Eosinophils % 2.1 Basophils % 0.3 Nucleated RBC % 0 Platelet Estimate Anisocytosis Microcytosis Macrocytosis Sodium 141 Potassium 4.2 Chloride 107 Carbon Dioxide 29 Anion Gap 5 L BUN 84 H Creatinine 1.9 H Creat Clearance w eGFR 33.86 POC Glucometer 196 Random Glucose 156 H Calcium 8.0 L Magnesium 2.3 Total Bilirubin 0.4 D AST 258 H ALT 240 H D Alkaline Phosphatase 164 H D Total Protein 6.5 Albumin 2.1 L 02/01/18 02/02/18 02/02/18 23:05 05:18 10:00 WBC 5.1 RBC 3.19 L Hgb 8.5 L Hct 26.2 L MCV 82.2 MCH 26.6 MCHC 32.4 RDW 22.0 H Plt Count 145 MPV 10.0 Neutrophils % 64.7 Lymphocytes % 27.2 D Monocytes % 6.5 Eosinophils % 1.2 Basophils % 0.4 Nucleated RBC % 0 Platelet Estimate Normal Anisocytosis 2+ Microcytosis 1+ Macrocytosis 1+ Sodium Potassium Chloride Carbon Dioxide Anion Gap BUN Creatinine Creat Clearance w eGFR POC Glucometer 187 154 Random Glucose Calcium Magnesium Total Bilirubin AST ALT Alkaline Phosphatase Total Protein Albumin 02/02/18 02/02/18 10:00 11:40 WBC RBC Hgb Hct MCV MCH MCHC RDW Plt Count MPV Neutrophils % Lymphocytes % Monocytes % Eosinophils % Basophils % Nucleated RBC % Platelet Estimate Anisocytosis Microcytosis Macrocytosis Sodium 140 Potassium 4.3 Chloride 106 Carbon Dioxide 26 Anion Gap 8 BUN 83 H Creatinine 1.8 H Creat Clearance w eGFR 36.04 POC Glucometer 160 Random Glucose 111 H D Calcium 8.2 L Magnesium 2.1 Total Bilirubin 0.4 AST 136 H D ALT 176 H D Alkaline Phosphatase 122 H D Total Protein 6.4 Albumin 2.1 L Active Medications Generic Name Dose Route Start Last Admin Trade Name Freq PRN Reason Stop Dose Admin Baclofen 10 mg 01/22/18 22:00 02/02/18 13:29 Lioresal - GT 10 mg TID [facility] Administration Ertapenem 0.5 gm/ Sodium 50 mls @ 100 mls/hr 01/31/18 22:00 02/01/18 22:36 Chloride IVPB 100 mls/hr DAILY@2200 [facility] Administration Protocol Furosemide 100 mg/ Sodium 50 mls @ 2.5 mls/hr 02/01/18 14:00 02/02/18 13:24 Chloride IVPB Not Given TITR [facility] Protocol 5 MG/HR Insulin Aspart 1 vial 01/25/18 18:00 02/02/18 11:39 Novolog Vial Sliding Scale - SQ Not Given Q6HPO [facility] Protocol Levothyroxine Sodium 37.5 mcg 01/23/18 07:00 02/02/18 06:01 Synthroid - PEG 37.5 mcg DAILY@0700 [facility] Administration Mupirocin 1 applic 01/29/18 14:00 02/02/18 09:10 Bactroban 2% Ointment - TP 1 applic BID [facility] Administration Formulated 1 each 02/01/18 11:30 02/02/18 09:09 Probiotis (Nf Pt's PO 1 each Own Med) DAILY [facility] Administration Oxybutynin Chloride 5 mg 01/22/18 22:00 02/02/18 09:09 Ditropan - NGT 5 mg BID [facility] Administration Pantoprazole Sodium 40 mg 01/23/18 10:00 02/02/18 09:10 Protonix Iv IVPUSH 40 mg DAILY [facility] Administration Potassium Chloride 60 meq 01/30/18 06:00 02/02/18 09:10 Potassium Chloride Oral Liquid PO 60 meq DAILY [facility] Administration Sertraline HCl 25 mg 01/23/18 10:00 02/02/18 09:09 Zoloft - NR 25 mg DAILY [facility] Administration Sodium Chloride 2 spray 01/26/18 22:00 02/02/18 13:29 [place] Nasal [place] - NS 2 spray TID [facility] Administration ASSESSMENT/PLAN: Patient is an 87 year old male with a significant pat medical history of traumatic fall in 2017 requiring neck and back surgery with trach placement, atrial fibrillation, anemia, aspiration pneumonia s/p trach placement 08/2017 with vent dependence, RUE DVT, CHF, diabetes mellitus, TBI, legal blindness. He was [facility] [facility] for blood clots around tracheostomy site. He was found to have Esbl UTI and was started on meropenem by ID. Imaging: CTAP: (1) No evidence of fluid within the pelvis. At least moderate sized bilateral pleural effusions with bilateral lower lobe compressive atelectasis, small volume of right periphatic free fluid and diffuse body well edema. Please correlate clinically with dedicated imaging of the chest (2) Short segment wall thickening versus underdistension of the sigmoid colon. (3) chronic calcific pancreatitis (4) indeterminate 1.5 cm right adrenal gland nodule could be an adenoma. ID: [id number] UTI On Meropenem (dose #10), will need 14 doses as per ID Meropenem started on 01/24 No fevers, no leukocytosis Repeat UC negative Pulm: Hemoptysis, resolved No bleeding around trach site GI: Transaminitis CTAP reviewed, liver enzymes trending down, Hepatic congestion? Continue to trend GI following Diarrhea: Negative for cdiff Restart feeds Heme: Acute blood loss anemia s/p 1 unit of prbc on 01/21 with venofer Transfuse if hmg <8 due to cardiac disease hmg/hct stable Pulm: Chronic respiratory failure, trach dependence Renal: KATERIN on CKD Creat trending down : Urinary retention Childs replaced for large post void residual CV: Acute on chronic diastolic heart failure On Lasix drip Prox, atril fib No anticoags 2/2 to anemia Rate controlled Endocrine: Diabetes, chronic On SS Hypothyroidism, chronic On Synthroid Functional quadraplegia Turn and position q2, protect bony prominences F.E.N. Fluids: None, on lasix drip Electrolytes: Monitor Nutrition: Nepro with goal rate of 50 Prophy: DVT: scds GI: Protonix Disposition: full code.
--- NOTE | 2018-02-02 14:30 | PN ---
Progress Note (short form) - Note Progress Note: Vented, poorly responsive. No acute events overnight. Intake & Output 01/30/18 01/31/18 02/01/18 02/02/18 23:59 23:59 23:59 23:59 Intake Total 2520 2532 1134 399 Output Total 1000 1503 1900 600 Balance 1520 1029 -766 -201 Weight 162 lb 0.2 oz 161 lb 6.4 oz 163 lb 158 lb 6.4 oz Last Vital Signs Temp Pulse Resp BP Pulse Ox 97.9 F 46 L 15 132/56 98 02/02/18 10:00 02/02/18 10:00 02/02/18 14:12 02/02/18 10:00 02/02/18 10:00 Active Medications Baclofen (Lioresal -) 10 mg GT TID [facility] Last Admin: 02/02/18 13:29 Dose: 10 mg Ertapenem 0.5 gm/ Sodium (Chloride) 50 mls @ 100 mls/hr IVPB DAILY@2200 [facility]; Protocol Last Admin: 02/01/18 22:36 Dose: 100 mls/hr Furosemide 100 mg/ Sodium (Chloride) 50 mls @ 2.5 mls/hr IVPB TITR [facility]; Protocol Last Admin: 02/02/18 13:24 Dose: Not Given Insulin Aspart (Novolog Vial Sliding Scale -) 1 vial SQ Q6HPO [facility]; Protocol Last Admin: 02/02/18 11:39 Dose: Not Given Levothyroxine Sodium (Synthroid -) 37.5 mcg PEG DAILY@0700 [facility] Last Admin: 02/02/18 06:01 Dose: 37.5 mcg Mupirocin (Bactroban 2% Ointment -) 1 applic TP BID [facility] Last Admin: 02/02/18 09:10 Dose: 1 applic Probiotis ( Pt's Own Med) 1 each PO DAILY [facility] Last Admin: 02/02/18 09:09 Dose: 1 each Oxybutynin Chloride (Ditropan -) 5 mg NGT BID [facility] Last Admin: 02/02/18 09:09 Dose: 5 mg Pantoprazole Sodium (Protonix Iv) 40 mg IVPUSH DAILY [facility] Last Admin: 02/02/18 09:10 Dose: 40 mg Potassium Chloride (Potassium Chloride Oral Liquid) 60 meq PO DAILY [facility] Last Admin: 02/02/18 09:10 Dose: 60 meq Sertraline HCl (Zoloft -) 25 mg NR DAILY [facility] Last Admin: 02/02/18 09:09 Dose: 25 mg Sodium Chloride ([place] Nasal [place] -) 2 spray NS TID [facility] Last Admin: 02/02/18 13:29 Dose: 2 spray Gen: vented, poorly responsive Heart: RRR Lung: scattered rhonchi Abd: soft, nontender Ext: no edema Laboratory Results - last 24 hr 02/01/18 02/01/18 02/01/18 13:40 16:53 23:05 WBC RBC Hgb Hct MCV MCH MCHC RDW Plt Count MPV Neutrophils % Lymphocytes % Monocytes % Eosinophils % Basophils % Nucleated RBC % Platelet Estimate Anisocytosis Microcytosis Macrocytosis Sodium 141 Potassium 4.2 Chloride 107 Carbon Dioxide 29 Anion Gap 5 L BUN 84 H Creatinine 1.9 H Creat Clearance w eGFR 33.86 POC Glucometer 196 187 Random Glucose 156 H Calcium 8.0 L Magnesium 2.3 Total Bilirubin 0.4 D AST 258 H ALT 240 H D Alkaline Phosphatase 164 H D Total Protein 6.5 Albumin 2.1 L 02/02/18 02/02/18 02/02/18 05:18 10:00 10:00 WBC 5.1 RBC 3.19 L Hgb 8.5 L Hct 26.2 L MCV 82.2 MCH 26.6 MCHC 32.4 RDW 22.0 H Plt Count 145 MPV 10.0 Neutrophils % 64.7 Lymphocytes % 27.2 D Monocytes % 6.5 Eosinophils % 1.2 Basophils % 0.4 Nucleated RBC % 0 Platelet Estimate Normal Anisocytosis 2+ Microcytosis 1+ Macrocytosis 1+ Sodium 140 Potassium 4.3 Chloride 106 Carbon Dioxide 26 Anion Gap 8 BUN 83 H Creatinine 1.8 H Creat Clearance w eGFR 36.04 POC Glucometer 154 Random Glucose 111 H D Calcium 8.2 L Magnesium 2.1 Total Bilirubin 0.4 AST 136 H D ALT 176 H D Alkaline Phosphatase 122 H D Total Protein 6.4 Albumin 2.1 L 02/02/18 11:40 WBC RBC Hgb Hct MCV MCH MCHC RDW Plt Count MPV Neutrophils % Lymphocytes % Monocytes % Eosinophils % Basophils % Nucleated RBC % Platelet Estimate Anisocytosis Microcytosis Macrocytosis Sodium Potassium Chloride Carbon Dioxide Anion Gap BUN Creatinine Creat Clearance w eGFR POC Glucometer 160 Random Glucose Calcium Magnesium Total Bilirubin AST ALT Alkaline Phosphatase Total Protein Albumin A/P Chronic Respiratory Failure Hemoptysis likely from Epistaxis Acute Blood Loss Anemia Acute Kidney Injury Atrial Fibrillation DM CHF h/o Traumatic Brain Injury - monitor H/H - Normal transfusion thresholds - Noted lasix drip - monitor urine output, creatinine - O2 to keep SpO2 >90% - continue volume assist control - poor candidate for weaning at this time - DVT/GI prophylaxis Dr Lr
--- NOTE | 2018-02-02 16:19 | PN ---
Progress Note (short form) - Note Progress Note: Renal follow up for KATERIN on CKD Pt seen and examined at the bedside remain on vent poorly responsive but opens eyes to physical stimuli on Lasix gtt Vital Signs Temperature 98.3 F 02/02/18 15:09 Pulse Rate 46 L 02/02/18 15:09 Respiratory Rate 14 02/02/18 15:09 Blood Pressure 132/63 02/02/18 15:09 O2 Sat by Pulse Oximetry (%) 98 02/02/18 10:00 Intake & Output 01/30/18 01/31/18 02/01/18 02/02/18 23:59 23:59 23:59 23:59 Intake Total 2520 2532 1134 399 Output Total 1000 1503 1900 600 Balance 1520 1024 -994 -201 Weight 73.488 kg 73.21 kg 73.936 kg 71.849 kg NAD on Vent No JVD RRR, No M/R Course BS trace sacral edema CBC, BMP 02/02/18 10:00 02/02/18 10:00 Current Medications Baclofen (Lioresal -) [address] [facility] Last Admin: 02/02/18 13:29 Dose: 10 mg Ertapenem 0.5 gm/ Sodium (Chloride) 50 mls @ 100 mls/hr IVPB DAILY@2200 [facility]; Protocol Last Admin: 02/01/18 22:36 Dose: 100 mls/hr Furosemide 100 mg/ Sodium (Chloride) 50 mls @ 2.5 mls/hr IVPB TITR [facility]; Protocol Last Admin: 02/02/18 13:24 Dose: Not Given Insulin Aspart (Novolog Vial Sliding Scale -) [address] [facility]; Protocol Last Admin: 02/02/18 11:39 Dose: Not Given Levothyroxine Sodium (Synthroid -) 37.5 mcg PEG DAILY@0700 [facility] Last Admin: 02/02/18 06:01 Dose: 37.5 mcg Mupirocin (Bactroban 2% Ointment -) [address] [facility] Last Admin: 02/02/18 09:10 Dose: [address]Formulated [place] (Nf Pt's Own Med) [address] [facility] Last Admin: 02/02/18 09:09 Dose: 1 each Oxybutynin Chloride (Ditropan -) [address] [facility] Last Admin: 02/02/18 09:09 Dose: 5 mg Pantoprazole Sodium (Protonix Iv) [address] [facility] Last Admin: 02/02/18 09:10 Dose: 40 mg Potassium Chloride (Potassium Chloride Oral Liquid) [address] [facility] Last Admin: 02/02/18 09:10 Dose: 60 meq Sertraline HCl (Zoloft -) [address] [facility] Last Admin: 02/02/18 09:09 Dose: 25 mg Sodium Chloride ([place] Nasal [place] -) [address] 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 #KATERIN/CKD #Bleeding from ET tube #B/L Pleural effusions #Acute on Chronic Anemia #Hypernatremia #Proteinuria #Possible UTI #Hypokalemia Continue Lasix gtt trend daily weights, urine output Trend BUN/Cr and electrolytes vent support prognosis is guarded Frank Ayoub DO
[2018-02-02] MEDS: ERTAPENEM SODIUM 0.5 GM in SODIUM CHLORIDE 50 ML IVPB SCH (22:56)
[2018-02-03] MEDS ORDERED: PT OWN MED DRAWER 7, Y5N ONE ×3 (05:22→20:53)
[2018-02-03] MEDS: INSULIN SLIDING SCALE (NOVOLOG) 1 VIAL SQ SCH ×3 (05:25→18:54)
[2018-02-03] MEDS: SODIUM CHLORIDE NASAL SPRAY 44 ML BOTTLE NS SCH ×3 (05:26→21:53)
[2018-02-03] MEDS: BACLOFEN 10 MG TABLET (FP) GT SCH ×3 (06:08→22:27)
[2018-02-03] MEDS: LEVOTHYROXINE NA 25 MCG TABLET (FP) PEG SCH (06:08)
[2018-02-03] MEDS: FUROSEMIDE INJECTION 100 MG in SODIUM CHLORIDE 40 ML IVPB SCH ×2 (07:03→15:12)
[2018-02-03 08:25] LABS: BASO % 0.3 % (0-2.0); EOS % 1.3 % (0-4.5); HEMATOCRIT 25.7 % (35.4-49); HEMOGLOBIN 8.4 GM/dL (11.7-16.9); MCHC 32.8 g/dl (32.0-35.9); MEAN CELL VOLUME 82.1 fl (80-96); MEAN PLT VOLUME 9.9 fl (7.5-11.1); MONO % 7.8 % (3.8-10.2); NEUT % 65.6 % (42.8-82.8); PLATELET COUNT 148 K/MM3 (134-434); RBC 3.13 M/mm3 (4.00-5.60); RDW 22.6 % (11.9-15.9)
--- NOTE | 2018-02-03 08:48 | PN ---
Progress Note, Physician Chief Complaint: Pt opens eyes to auditory stimuli; moves feet spontaneously. History of Present Illness: This is an 87 yr old white man with h/o traumatic fall down stairs (admitted to [facility] about a month ago and had neck/back surgery, tracheotomy placement 2016 now with traumatic brain injury (TBI), ventilator dependent, and PEG tube placement), recent aspiration PNA, A-fib, CHF, DM, renal failure, TBI, legally blind and deaf; who is BIBA from [facility] in [place] for blood with clots suctioned from his tracheostomy tube yesterday , as well as anemia detected on his lab work today. He was supposed to have been transported to [facility] for m[facility]p management, but is stopping here at [facility] because of the anemia. Per conversation with attending Dr. aYdiel Gallegos at [facility], yesterday the patient was noted to have bloody secretions suctioned from tracheostomy site , so CBC was checked. His Hct was 24 yesterday, which was down ~10 points from his prior values. They re-checked it again today and Hct was 21. PSYCHIATRIC checked his urine and there was a small amount of blood in it (not enough to explain the Hct drop). Their primary concern has been for GI bleed and FOBT was ordered but had not resulted at the time the patient was sent here. Received his noon medications and simethicone and a portion of his noon PEG tube feeding (had to be stopped early for transport). - Current Medication List Current Medications: Active Medications Baclofen (Lioresal -) 10 mg GT TID [facility] Last Admin: 02/03/18 06:08 Dose: 10 mg Ertapenem 0.5 gm/ Sodium (Chloride) 50 mls @ 100 mls/hr IVPB DAILY@2200 [facility]; Protocol Last Admin: 02/02/18 22:56 Dose: 100 mls/hr Furosemide 100 mg/ Sodium (Chloride) 50 mls @ 2.5 mls/hr IVPB TITR [facility]; Protocol Last Admin: 02/03/18 07:03 Dose: 5 mg/hr, 2.5 mls/hr Insulin Aspart (Novolog Vial Sliding Scale -) [address] [facility]; Protocol Last Admin: 02/03/18 05:25 Dose: 4 units Levothyroxine Sodium (Synthroid -) 37.5 mcg PEG DAILY@0700 [facility] Last Admin: 02/03/18 06:08 Dose: 37.5 mcg Mupirocin (Bactroban 2% Ointment -) [address] [facility] Last Admin: 02/02/18 22:58 Dose: 1 applic Formulated Probiotis (Nf Pt's Own Med) [address] [facility] Last Admin: 02/02/18 09:09 Dose: 1 each Oxybutynin Chloride (Ditropan -) [address] [facility] Last Admin: 02/02/18 22:56 Dose: 5 mg Pantoprazole Sodium (Protonix Iv) [address] [facility] Last Admin: 02/02/18 09:10 Dose: 40 mg Potassium Chloride (Potassium Chloride Oral Liquid) [address] [facility] Last Admin: 02/02/18 09:10 Dose: 60 meq Sertraline HCl (Zoloft -) [address] [facility] Last Admin: 02/02/18 09:09 Dose: 25 mg Sodium Chloride ([place] Nasal [place] -) [address] [facility] Last Admin: 02/03/18 05:26 Dose: 2 spray - Objective Vital Signs: Vital Signs Temperature 53 F L 02/03/18 06:00 Pulse Rate 53 L 02/03/18 06:00 Respiratory Rate 14 02/03/18 08:45 Blood Pressure 102/44 02/03/18 06:00 O2 Sat by Pulse Oximetry (%) 100 02/03/18 05:33 Constitutional: Yes: Thin Eyes: Yes: WNL HENT: Yes: Nasal Congestion Neck: Yes: Decreased ROM, Other (tracheostomy) Cardiovascular: Yes: Bradycardia, S1, S2 Respiratory: Yes: Mechanically Ventilated Gastrointestinal: Yes: Soft ...Rectal Exam: Yes: Deferred Genitourinary: No: Anuria Musculoskeletal: Yes: Muscle Weakness Extremities: Yes: Cool Edema: No Peripheral Pulses WNL: No Peripheral Pulses: Left Doralis Pedis: 1+, Right Dorsalis Pedis: 1+ Neurological: Yes: Weakness Labs: CBC, BMP 02/03/18 07:18 INR, PTT INR 1.10 (0.82-1.09) 01/21/18 15:00 Abnormal Lab Results 02/04/18 02/04/18 08:00 08:00 RBC 2.98 L Hgb 8.1 L Hct 24.4 L RDW 22.5 H Chloride 108 H BUN 82 H Creatinine 1.9 H Random Glucose 130 H Calcium 8.1 L AST 77 H D ALT 121 H D Alkaline Phosphatase 121 H D Albumin 2.2 L Problem List - Problems (1) Acute on chronic diastolic CHF (congestive heart failure) Assessment/Plan: ECHO: normal LVEF; mild-moderate MR F/u BUN/Cr (83/1.8), electrolytes (K 4.3), daily weight, Is and Os. Code(s): I50.33 - ACUTE ON CHRONIC DIASTOLIC (CONGESTIVE) HEART FAILURE (2) Chronic respiratory failure Assessment/Plan: trached; mechanically dependent Code(s): J96.10 - CHRONIC RESPIRATORY FAILURE, UNSP W HYPOXIA OR HYPERCAPNIA (3) Diabetes Code(s): E11.9 - TYPE 2 DIABETES MELLITUS WITHOUT COMPLICATIONS (4) Epistaxis Assessment/Plan: No further discharge. F/u Hb (stable ) Code(s): R04.0 - EPISTAXIS (5) Hemoptysis Code(s): R04.2 - HEMOPTYSIS (6) Hypothyroid Assessment/Plan: TSH wnl; on Synthroid Code(s): E03.9 - HYPOTHYROIDISM, UNSPECIFIED (7) S/P percutaneous endoscopic gastrostomy (PEG) tube placement Code(s): Z93.1 - GASTROSTOMY STATUS (8) TBI (traumatic brain injury) Code(s): S06.9X9A - UNSP INTRACRANIAL INJURY W LOC OF UNSP DURATION, INIT (9) Tracheostomy dependent Assessment/Plan: f/u with video systems engineer. Code(s): Z93.0 - TRACHEOSTOMY STATUS (10) Sinus bradycardia Assessment/Plan: Improvement in resting HR; in high 48s-60 bpm range. TMO < 0.02; TSH WNL. F/u history regarding PAF (on no anticoagulation: anemia, hemoptysis-->PRBCs; epistaxsis). Code(s): R00.1 - BRADYCARDIA, UNSPECIFIED (11) PAF (paroxysmal atrial fibrillation) Assessment/Plan: see under "sinus bradycardia" Code(s): I48.0 - PAROXYSMAL ATRIAL FIBRILLATION (12) Hypokalemia Assessment/Plan: now WNL; f/u serially Code(s): E87.6 - HYPOKALEMIA
[2018-02-03 09:03] LABS: CHLORIDE 107 mmol/L (98-107); POTASSIUM 3.9 mmol/L (3.5-5.1); SODIUM 141 mmol/L (136-145)
[2018-02-03 09:23] LABS: ALBUMIN 2.2 g/dl (3.4-5.0); ALK PHOS 159 U/L (45-117); ANION GAP 9 (8-16); BILIRUBIN,TOTAL 0.3 mg/dL (0.2-1.0); BLOOD UREA NITROGEN 85 mg/dL (7-18); CALCIUM 7.7 mg/dL (8.5-10.1); CO2 25 mmol/L (21-32); GLUCOSE,RANDOM 137 mg/dL (74-106); MAGNESIUM 2.3 mg/dL (1.8-2.4); SGOT/AST 150 U/L (15-37); SGPT/ALT 180 U/L (12-78); TOT PROT 6.4 g/dl (6.4-8.2)
[2018-02-03] MEDS: OXYBUTYNIN CHLORIDE 5 MG TABLET NGT SCH ×2 (11:08→22:27)
[2018-02-03] MEDS: MUPIROCIN 2% TOPICAL OINTMENT 22 GM TUBE TP SCH ×2 (11:08→21:52)
[2018-02-03] MEDS: SERTRALINE HCL 25 MG TABLET (FP) NR SCH (11:08)
[2018-02-03] MEDS: PANTOPRAZOLE SODIUM 40 MG VIAL IVPUSH SCH (11:09)
[2018-02-03] MEDS: POTASSIUM CHLORIDE ORAL LIQUID 20 MEQ/15 ML PO SCH (11:09)
[2018-02-03] MEDS: [UNRECOGNIZED DRUG - OTHER] PO SCH (11:35)
--- NOTE | 2018-02-03 11:55 | PN ---
Progress Note, Physician History of Present Illness: This is an 87 yr old white man with h/o traumatic fall down stairs (admitted to [facility] about a month ago and had neck/back surgery, tracheotomy placement 2016 now with traumatic brain injury (TBI), ventilator dependent, and PEG tube placement), recent aspiration PNA, A-fib, CHF, DM, renal failure, TBI, legally blind and deaf; who is BIBA from [facility] in [place] for blood with clots suctioned from his tracheostomy tube yesterday , as well as anemia detected on his lab work today. 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 Per conversation with attending Dr. Yadiel Gallegos at [facility], yesterday the patient was noted to have bloody secretions suctioned from tracheostomy site , so CBC was checked. His Hct was 24 yesterday, which was down ~10 points from his prior values. They re-checked it again today and Hct was 21. [facility] checked his urine and there was a small amount of blood in it (not enough to explain the Hct drop). Their primary concern has been for GI bleed and FOBT was ordered but had not resulted at the time the patient was sent here. Received his noon medications and simethicone and a portion of his noon PEG tube feeding (had to be stopped early for transport). - Current Medication List Current Medications: Active Medications Baclofen (Lioresal -) 10 mg GT TID [facility] Last Admin: 02/03/18 06:08 Dose: 10 mg Ertapenem 0.5 gm/ Sodium (Chloride) 50 mls @ 100 mls/hr IVPB DAILY@2200 [facility]; Protocol Last Admin: 02/02/18 22:56 Dose: 100 mls/hr Furosemide 100 mg/ Sodium (Chloride) 50 mls @ 2.5 mls/hr IVPB TITR [facility]; Protocol Last Admin: 02/03/18 07:03 Dose: 5 mg/hr, 2.5 mls/hr Insulin Aspart (Novolog Vial Sliding Scale -) 1 vial SQ Q6HPO [facility]; Protocol Last Admin: 02/03/18 05:25 Dose: 4 units Levothyroxine Sodium (Synthroid -) 37.5 mcg PEG DAILY@0700 [facility] Last Admin: 02/03/18 06:08 Dose: 37.5 mcg Mupirocin (Bactroban 2% Ointment -) 1 applic TP BID [facility] Last Admin: 02/03/18 11:08 Dose: [address]Formulated [place] (Nf Pt's Own Med) 1 each PO DAILY [facility] Last Admin: 02/03/18 11:35 Dose: 1 each Oxybutynin Chloride (Ditropan -) 5 mg NGT BID [facility] Last Admin: 02/03/18 11:08 Dose: 5 mg Potassium Chloride (Potassium Chloride Oral Liquid) 60 meq PO DAILY [facility] Last Admin: 02/03/18 11:09 Dose: 60 meq Sertraline HCl (Zoloft -) 25 mg NR DAILY [facility] Last Admin: 02/03/18 11:08 Dose: 25 mg Sodium Chloride ([place] Nasal [place] -) 2 spray NS TID [facility] Last Admin: 02/03/18 05:26 Dose: 2 spray - Objective Vital Signs: Vital Signs Temperature 53 F L 02/03/18 06:00 Pulse Rate 53 L 02/03/18 06:00 Respiratory Rate 14 02/03/18 08:45 Blood Pressure 102/44 02/03/18 06:00 O2 Sat by Pulse Oximetry (%) 100 02/03/18 05:33 Eyes: Yes: WNL, Conjunctiva Clear, EOM Intact HENT: Yes: WNL, Atraumatic, Normocephalic Neck: Yes: WNL, Supple, Trachea Midline Cardiovascular: Yes: WNL, Regular Rate and Rhythm Respiratory: Yes: Mechanically Ventilated Gastrointestinal: Yes: WNL, Normal Bowel Sounds Genitourinary: Yes: WNL Musculoskeletal: Yes: WNL Extremities: Yes: WNL Edema: No Integumentary: Yes: WNL Neurological: Yes: WNL, Alert, Oriented ...Motor Strength: WNL Psychiatric: Yes: WNL Labs: CBC, BMP 02/03/18 07:18 02/03/18 07:18 INR, PTT INR 1.10 (0.82-1.09) 01/21/18 15:00 Assessment/Plan - Problems (1) Acute on chronic diastolic CHF (congestive heart failure) Assessment/Plan: ECHO: normal LVEF; mild-moderate MR On furosemide; may require restarting the dose, in view of further congestion; discussed with ostomy nurse. Jah/u BUN/Cr, electrolytes, daily weight, Is and Os. Code(s): I50.33 - ACUTE ON CHRONIC DIASTOLIC (CONGESTIVE) HEART FAILURE (2) Chronic respiratory failure Code(s): J96.10 - CHRONIC RESPIRATORY FAILURE, UNSP W HYPOXIA OR HYPERCAPNIA (3) Diabetes Code(s): E11.9 - TYPE 2 DIABETES MELLITUS WITHOUT COMPLICATIONS (4) Epistaxis Assessment/Plan: No further discharge. F/u Hb (stable today) Code(s): R04.0 - EPISTAXIS (5) Hemoptysis Code(s): R04.2 - HEMOPTYSIS (6) Hypothyroid Assessment/Plan: TSH wnl; on Synthroid Code(s): E03.9 - HYPOTHYROIDISM, UNSPECIFIED (7) S/P percutaneous endoscopic gastrostomy (PEG) tube placement Code(s): Z93.1 - GASTROSTOMY STATUS (8) TBI (traumatic brain injury) Code(s): S06.9X9A - UNSP INTRACRANIAL INJURY W LOC OF UNSP DURATION, INIT (9) Tracheostomy dependent Code(s): Z93.0 - TRACHEOSTOMY STATUS (10) Sinus bradycardia Code(s): R00.1 - BRADYCARDIA, UNSPECIFIED (11) PAF (paroxysmal atrial fibrillation) Code(s): I48.0 - PAROXYSMAL ATRIAL FIBRILLATION (12) Hypokalemia Code(s): E87.6 - HYPOKALEMIA anemia - f/u hct transgfuse as needed
--- NOTE | 2018-02-03 13:22 | PN ---
Progress Note, Physician History of Present Illness: pulmonary poorly responsive on vent support ac mode - Current Medication List Current Medications: Active Medications Baclofen (Lioresal -) 10 mg GT TID [facility] Last Admin: 02/03/18 06:08 Dose: 10 mg Ertapenem 0.5 gm/ Sodium (Chloride) 50 mls @ 100 mls/hr IVPB DAILY@2200 [facility]; Protocol Last Admin: 02/02/18 22:56 Dose: 100 mls/hr Furosemide 100 mg/ Sodium (Chloride) 50 mls @ 2.5 mls/hr IVPB TITR [facility]; Protocol Last Admin: 02/03/18 07:03 Dose: 5 mg/hr, 2.5 mls/hr Insulin Aspart (Novolog Vial Sliding Scale -) 1 vial SQ Q6HPO [facility]; Protocol Last Admin: 02/03/18 05:25 Dose: 4 units Levothyroxine Sodium (Synthroid -) 37.5 mcg PEG DAILY@0700 [facility] Last Admin: 02/03/18 06:08 Dose: 37.5 mcg Mupirocin (Bactroban 2% Ointment -) 1 applic TP BID [facility] Last Admin: 02/03/18 11:08 Dose: 1 applic Probiotis ( Pt's Own Med) 1 each PO DAILY [facility] Last Admin: 02/03/18 11:35 Dose: 1 each Oxybutynin Chloride (Ditropan -) 5 mg NGT BID [facility] Last Admin: 02/03/18 11:08 Dose: 5 mg Potassium Chloride (Potassium Chloride Oral Liquid) 60 meq PO DAILY [facility] Last Admin: 02/03/18 11:09 Dose: 60 meq Sertraline HCl (Zoloft -) 25 mg NR DAILY [facility] Last Admin: 02/03/18 11:08 Dose: 25 mg Sodium Chloride ([place] Nasal [place] -) 2 spray NS TID [facility] Last Admin: 02/03/18 05:26 Dose: 2 spray - Objective Vital Signs: Vital Signs Temperature 53 F L 02/03/18 06:00 Pulse Rate 53 L 02/03/18 06:00 Respiratory Rate 14 02/03/18 08:45 Blood Pressure 102/44 02/03/18 06:00 O2 Sat by Pulse Oximetry (%) 100 02/03/18 05:33 Constitutional: Yes: Well Nourished, Other (poorly responsive) Eyes: Yes: WNL HENT: Yes: WNL Neck: Yes: WNL (trach) Cardiovascular: Yes: Pulse Irregular, S1, S2 Respiratory: Yes: Rhonchi (scattered rhonchi) Gastrointestinal: Yes: Normal Bowel Sounds, Soft Extremities: Yes: WNL Edema: Yes Labs: CBC, BMP 02/03/18 07:18 02/03/18 07:18 INR, PTT INR 1.10 (0.82-1.09) 01/21/18 15:00 Problem List - Problems (1) A-fib Code(s): I48.91 - UNSPECIFIED ATRIAL FIBRILLATION (2) Acute on chronic diastolic CHF (congestive heart failure) Code(s): I50.33 - ACUTE ON CHRONIC DIASTOLIC (CONGESTIVE) HEART FAILURE (3) Chronic respiratory failure Code(s): J96.10 - CHRONIC RESPIRATORY FAILURE, UNSP W HYPOXIA OR HYPERCAPNIA (4) Diabetes Code(s): E11.9 - TYPE 2 DIABETES MELLITUS WITHOUT COMPLICATIONS (5) Epistaxis Code(s): R04.0 - EPISTAXIS (6) Hemoptysis Code(s): R04.2 - HEMOPTYSIS (7) TBI (traumatic brain injury) Code(s): S06.9X9A - UNSP INTRACRANIAL INJURY W LOC OF UNSP DURATION, INIT (8) Tracheostomy dependent Code(s): Z93.0 - TRACHEOSTOMY STATUS Assessment/Plan A/P Chronic Respiratory Failure Hemoptysis resolved Acute Blood Loss Anemia Acute Kidney Injury Atrial Fibrillation DM CHF h/o Traumatic Brain Injury - monitor H/H - transfuse as needed - abx as per id - lasix - monitor urine output, creatinine - replete lytes - O2 to keep SpO2 >90% - continue volume assist control - DVT/GI prophylaxis DR FORMAN
--- NOTE | 2018-02-03 13:49 | PN ---
Progress Note, Physician History of Present Illness: no new events still on vent - Current Medication List Current Medications: Active Medications Baclofen (Lioresal -) 10 mg GT TID [facility] Last Admin: 02/03/18 06:08 Dose: 10 mg Ertapenem 0.5 gm/ Sodium (Chloride) 50 mls @ 100 mls/hr IVPB DAILY@2200 [facility]; Protocol Last Admin: 02/02/18 22:56 Dose: 100 mls/hr Furosemide 100 mg/ Sodium (Chloride) 50 mls @ 2.5 mls/hr IVPB TITR [facility]; Protocol Last Admin: 02/03/18 07:03 Dose: 5 mg/hr, 2.5 mls/hr Insulin Aspart (Novolog Vial Sliding Scale -) 1 vial SQ Q6HPO [facility]; Protocol Last Admin: 02/03/18 05:25 Dose: 4 units Levothyroxine Sodium (Synthroid -) 37.5 mcg PEG DAILY@0700 [facility] Last Admin: 02/03/18 06:08 Dose: 37.5 mcg Mupirocin (Bactroban 2% Ointment -) 1 applic TP BID [facility] Last Admin: 02/03/18 11:08 Dose: 1 applic Formulated Probiotis (Nf Pt's Own Med) 1 each PO DAILY [facility] Last Admin: 02/03/18 11:35 Dose: 1 each Oxybutynin Chloride (Ditropan -) 5 mg NGT BID [facility] Last Admin: 02/03/18 11:08 Dose: 5 mg Potassium Chloride (Potassium Chloride Oral Liquid) 60 meq PO DAILY [facility] Last Admin: 02/03/18 11:09 Dose: 60 meq Sertraline HCl (Zoloft -) 25 mg NR DAILY [facility] Last Admin: 02/03/18 11:08 Dose: 25 mg Sodium Chloride ([place] Nasal [place] -) 2 spray NS TID [facility] Last Admin: 02/03/18 05:26 Dose: 2 spray - Objective Vital Signs: Vital Signs Temperature 53 F L 02/03/18 06:00 Pulse Rate 53 L 02/03/18 06:00 Respiratory Rate 14 02/03/18 08:45 Blood Pressure 102/44 02/03/18 06:00 O2 Sat by Pulse Oximetry (%) 100 02/03/18 05:33 Constitutional: Yes: No Distress, Calm Cardiovascular: Yes: Regular Rate and Rhythm Respiratory: Yes: Mechanically Ventilated, Other (trach) Gastrointestinal: Yes: Normal Bowel Sounds, Soft Musculoskeletal: Yes: Other Extremities: Yes: Other Neurological: Yes: Other Labs: CBC, BMP 02/03/18 07:18 02/03/18 07:18 INR, PTT INR 1.10 (0.82-1.09) 01/21/18 15:00 Assessment/Plan 87yo M with 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 He was found to have bright red bloody secretions suctioned from tracheostomy site.and now found to have esbl uti uti ac blood loos anemia Acute CHF Exacerbation S/p Tracheostomy Afib CKD DM2 Hypothyroidism plan continue current mgmt await for cdiff results finish 14 days of invanz nutrition rest as per the team
[2018-02-03] MEDS ORDERED: FUROSEMIDE 40 MG/4 ML INJECTABLE VIAL IVPUSH ONE (15:10)
--- NOTE | 2018-02-03 15:57 | PN ---
Progress Note, Physician History of Present Illness: clinically the same. Tansaminitis with intrahepatic cholestasis while hospitalized. - Current Medication List Current Medications: Active Medications Baclofen (Lioresal -) 10 mg GT TID [facility] Last Admin: 02/03/18 15:14 Dose: 10 mg Furosemide (Lasix Injection -) 40 mg IVPUSH BID@0600,1400 [facility] Ertapenem 0.5 gm/ Sodium (Chloride) 50 mls @ 100 mls/hr IVPB DAILY@2200 [facility]; Protocol Last Admin: 02/02/18 22:56 Dose: 100 mls/hr Insulin Aspart (Novolog Vial Sliding Scale -) 1 vial SQ Q6HPO [facility]; Protocol Last Admin: 02/03/18 13:55 Dose: 2 units Levothyroxine Sodium (Synthroid -) 37.5 mcg PEG DAILY@0700 [facility] Last Admin: 02/03/18 06:08 Dose: 37.5 mcg Mupirocin (Bactroban 2% Ointment -) 1 applic TP BID [facility] Last Admin: 02/03/18 11:08 Dose: [address]Formulated [place] ( Pt's Own Med) 1 each PO DAILY [facility] Last Admin: 02/03/18 11:35 Dose: 1 each Oxybutynin Chloride (Ditropan -) 5 mg NGT BID [facility] Last Admin: 02/03/18 11:08 Dose: 5 mg Potassium Chloride (Potassium Chloride Oral Liquid) 60 meq PO DAILY [facility] Last Admin: 02/03/18 11:09 Dose: 60 meq Sertraline HCl (Zoloft -) 25 mg NR DAILY [facility] Last Admin: 02/03/18 11:08 Dose: 25 mg Sodium Chloride ([place] Nasal [place] -) 2 spray NS TID [facility] Last Admin: 02/03/18 15:14 Dose: 2 spray - Objective Vital Signs: Vital Signs Temperature 53 F L 02/03/18 06:00 Pulse Rate 53 L 02/03/18 06:00 Respiratory Rate 14 02/03/18 12:50 Blood Pressure 102/44 02/03/18 06:00 O2 Sat by Pulse Oximetry (%) 100 02/03/18 05:33 Labs: CBC, BMP 02/03/18 07:18 02/03/18 07:18 INR, PTT INR 1.10 (0.82-1.09) 01/21/18 15:00 Problem List - Problems (1) Hemorrhage from tracheostomy stoma Code(s): J95.01 - HEMORRHAGE FROM TRACHEOSTOMY STOMA (2) Acute on chronic diastolic CHF (congestive heart failure) Code(s): I50.33 - ACUTE ON CHRONIC DIASTOLIC (CONGESTIVE) HEART FAILURE (3) Chronic respiratory failure Code(s): J96.10 - CHRONIC RESPIRATORY FAILURE, UNSP W HYPOXIA OR HYPERCAPNIA (4) Diabetes Code(s): E11.9 - TYPE 2 DIABETES MELLITUS WITHOUT COMPLICATIONS (5) Epistaxis Code(s): R04.0 - EPISTAXIS (6) Abnormal liver enzymes Code(s): R74.8 - ABNORMAL LEVELS OF OTHER SERUM ENZYMES (7) Cholestasis, intrahepatic Code(s): K76.89 - OTHER SPECIFIED DISEASES OF LIVER Assessment/Plan Mild tansaminitis with likely intrahepatic cholestasis developed 01/28 while hospitalized. ?medications (Abx) vs systemic infection vs biliary stasis. Daily liver chemistry, t/d bili, alp Avoid non-essential medications RUQ US
--- NOTE | 2018-02-03 16:38 | PN ---
Physical Exam: SUBJECTIVE: Patient seen and examined at the bedside. non verbal at baseline, anasarca improving. OBJECTIVE: Vital Signs Period Temp Pulse Resp BP Sys/Wills Pulse Ox Last 24 Hr 53 F-97.5 F 47-53 14-16 102-131/44-64 100 GENERAL: The patient is awake, alert, non verbal at baseline HEAD: Normal with no signs of trauma. EYES: PERRL, extraocular movements intact, sclera anicteric, conjunctiva clear. No ptosis. ENT: Ears normal, nares patent, oropharynx clear without exudates, moist mucous membranes. NECK: trach tube, no further hemoptysis LUNGS: Breath sounds equal, clear to auscultation anteriorly HEART: Regular rate and rhythm ABDOMEN: + peg tube NEUROLOGICAL: Non verbal at baseline PSYCH: Normal mood, normal affect. SKIN: Warm, dry, normal turgor, no rashes or lesions noted Laboratory Results - last 24 hr 02/02/18 02/02/18 02/03/18 17:11 23:23 05:17 WBC RBC Hgb Hct MCV MCH MCHC RDW Plt Count MPV Neutrophils % Lymphocytes % Monocytes % Eosinophils % Basophils % Nucleated RBC % Sodium Potassium Chloride Carbon Dioxide Anion Gap BUN Creatinine Creat Clearance w eGFR POC Glucometer 209 199 207 Random Glucose Calcium Magnesium Total Bilirubin AST ALT Alkaline Phosphatase Total Protein Albumin 02/03/18 02/03/18 02/03/18 07:18 07:18 13:44 WBC 5.0 RBC 3.13 L Hgb 8.4 L Hct 25.7 L MCV 82.1 MCH 27.0 MCHC 32.8 RDW 22.6 H Plt Count 148 MPV 9.9 Neutrophils % 65.6 Lymphocytes % 25.0 Monocytes % 7.8 Eosinophils % 1.3 Basophils % 0.3 Nucleated RBC % 0 Sodium 141 Potassium 3.9 Chloride 107 Carbon Dioxide 25 Anion Gap 9 BUN 85 H Creatinine 2.0 H Creat Clearance w eGFR 31.91 POC Glucometer 182 Random Glucose 137 H D Calcium 7.7 L Magnesium 2.3 Total Bilirubin 0.3 D AST 150 H ALT 180 H Alkaline Phosphatase 159 H D Total Protein 6.4 Albumin 2.2 L Active Medications Generic Name Dose Route Start Last Admin Trade Name Freq PRN Reason Stop Dose Admin Baclofen 10 mg 01/22/18 22:00 02/03/18 15:14 Lioresal - GT 10 mg TID [facility] Administration Furosemide 40 mg 02/04/18 06:00 Lasix Injection - IVPUSH BID@0600,1400 [facility] Ertapenem 0.5 gm/ Sodium 50 mls @ 100 mls/hr 01/31/18 22:00 02/02/18 22:56 Chloride IVPB 100 mls/hr DAILY@2200 [facility] Administration Protocol Insulin Aspart 1 vial 01/25/18 18:00 02/03/18 13:55 Novolog Vial Sliding Scale - SQ 2 units Q6HPO [facility] Administration Protocol Levothyroxine Sodium 37.5 mcg 01/23/18 07:00 02/03/18 06:08 Synthroid - PEG 37.5 mcg DAILY@0700 [facility] Administration Mupirocin 1 applic 01/29/18 14:00 02/03/18 11:08 Bactroban 2% Ointment - TP 1 applic BID [facility] Administration Formulated 1 each 02/01/18 11:30 02/03/18 11:35 Probiotis (Nf Pt's PO 1 each Own Med) DAILY [facility] Administration Oxybutynin Chloride 5 mg 01/22/18 22:00 02/03/18 11:08 Ditropan - NGT 5 mg BID [facility] Administration Potassium Chloride 60 meq 01/30/18 06:00 02/03/18 11:09 Potassium Chloride Oral Liquid PO 60 meq DAILY [facility] Administration Sertraline HCl 25 mg 01/23/18 10:00 02/03/18 11:08 Zoloft - NR 25 mg DAILY [facility] Administration Sodium Chloride 2 spray 01/26/18 22:00 02/03/18 15:14 [place] Nasal [place] - NS 2 spray TID [facility] Administration ASSESSMENT/PLAN: Patient is an 87 year old male with a significant pat medical history of traumatic fall in 2017 requiring neck and back surgery with trach placement, atrial fibrillation, anemia, aspiration pneumonia s/p trach placement 08/2017 with vent dependence, RUE DVT, CHF, diabetes mellitus, TBI, legal blindness. He [facility] for blood clots around tracheostomy site. He was found to have Esbl UTI and was started on meropenem by ID. Imaging: CTAP: (1) No evidence of fluid within the pelvis. At least moderate sized bilateral pleural effusions with bilateral lower lobe compressive atelectasis, small volume of right periphatic free fluid and diffuse body well edema. Please correlate clinically with dedicated imaging of the chest (2) Short segment wall thickening versus underdistension of the sigmoid colon. (3) chronic calcific pancreatitis (4) indeterminate 1.5 cm right adrenal gland nodule could be an adenoma. ID: [id number] UTI On Meropenem (dose #11), will need 14 doses as per ID Meropenem started on 01/24 No fevers, no leukocytosis Repeat UC negative Pulm: Hemoptysis, resolved No bleeding around trach site GI: Transaminitis CTAP reviewed, liver enzymes mildly elevated for RUQ u/s Hepatic congestion? Continue to trend GI following Diarrhea: Negative for cdiff Restart feeds Heme: Acute blood loss anemia s/p 1 unit of prbc on 01/21 with venofer Transfuse if hmg <8 due to cardiac disease hmg/hct stable Pulm: Chronic respiratory failure, trach dependence Renal: KATERIN on CKD Creat trending down : Urinary retention Childs replaced for large post void residual CV: Acute on chronic diastolic heart failure On Lasix drip Prox, atril fib No anticoags 2/2 to anemia Rate controlled Endocrine: Diabetes, chronic On SS Hypothyroidism, chronic On Synthroid Functional quadraplegia Turn and position q2, protect bony prominences F.E.N. Fluids: None, on lasix drip Electrolytes: Monitor Nutrition: Nepro with goal rate of 50 Prophy: DVT: scds GI: Protonix Disposition: full code. Visit type - Emergency Visit Emergency Visit: Yes ED Registration Date: 01/21/18 Care time: The patient presented to the Emergency Department on the above date and was hospitalized for further evaluation of their emergent condition. - New Patient This patient is new to me today: No - Critical Care Critical Care patient: No - Discharge Referral Referred to [facility] Med P.C.: No
--- NOTE | 2018-02-03 17:54 | PN ---
Progress Note (short form) - Note Progress Note: Renal follow up for KATERIN on CKD Pt seen and examined at the bedside opens eyes on the vent making urine FiO2 30% Vital Signs Temperature 98.3 F 02/03/18 14:00 Pulse Rate 54 L 02/03/18 14:00 Respiratory Rate 14 02/03/18 17:03 Blood Pressure 116/57 02/03/18 14:00 O2 Sat by Pulse Oximetry (%) 100 02/03/18 05:33 Intake & Output 01/31/18 02/01/18 02/02/18 02/03/18 23:59 23:59 23:59 23:59 Intake Total 2532 1134 1511.5 1237.5 Output Total 1503 1900 1600 700 Balance 1029 -766 -88.5 537.5 Weight 73.21 kg 73.936 kg 71.849 kg 70.942 kg NAD on Vent No JVD RRR, No M/R Course BS trace sacral edema CBC, BMP 02/03/18 07:18 02/03/18 07:18 Current Medications Baclofen (Lioresal -) 10 mg GT TID [facility] Last Admin: 02/03/18 15:14 Dose: 10 mg Furosemide (Lasix Injection -) 40 mg IVPUSH BID@0600,1400 [facility] Ertapenem 0.5 gm/ Sodium (Chloride) 50 mls @ 100 mls/hr IVPB DAILY@2200 [facility]; Protocol Last Admin: 02/02/18 22:56 Dose: 100 mls/hr Insulin Aspart (Novolog Vial Sliding Scale -) 1 vial SQ Q6HPO [facility]; Protocol Last Admin: 02/03/18 13:55 Dose: 2 units Levothyroxine Sodium (Synthroid -) 37.5 mcg PEG DAILY@0700 [facility] Last Admin: 02/03/18 06:08 Dose: 37.5 mcg Mupirocin (Bactroban 2% Ointment -) 1 applic TP BID [facility] Last Admin: 02/03/18 11:08 Dose: [address]Formulated [place] ( Pt's Own Med) 1 each PO DAILY [facility] Last Admin: 02/03/18 11:35 Dose: 1 each Oxybutynin Chloride (Ditropan -) 5 mg NGT BID [facility] Last Admin: 02/03/18 11:08 Dose: 5 mg Potassium Chloride (Potassium Chloride Oral Liquid) 60 meq PO DAILY [facility] Last Admin: 02/03/18 11:09 Dose: 60 meq Sertraline HCl (Zoloft -) 25 mg NR DAILY [facility] Last Admin: 02/03/18 11:08 Dose: 25 mg Sodium Chloride ([place] Nasal [place] -) 2 spray NS TID [facility] Last Admin: 02/03/18 15:14 Dose: 2 spray 87 year old gentleman with PMhx of Traumatic brain injury now vented via trach with PEG, DM, CKD, CHF, Afib who presented with bright red blood from ET suctioning and found have acute anemia and Cr of 2. #KATERIN/CKD #Bleeding from ET tube #B/L Pleural effusions #Acute on Chronic Anemia #Hypernatremia #Proteinuria #Possible UTI #Hypokalemia change Lasix to 40mg IV BID trend renal function weights and volume status improved check CXR in the AM Frank Ayoub DO
[2018-02-03] MEDS: ERTAPENEM SODIUM 0.5 GM in SODIUM CHLORIDE 50 ML IVPB SCH (21:52)
[2018-02-04] MEDS: INSULIN SLIDING SCALE (NOVOLOG) 1 VIAL SQ SCH ×4 (01:23→17:35)
[2018-02-04] MEDS: FUROSEMIDE 40 MG/4 ML INJECTABLE VIAL IVPUSH SCH ×2 (07:12→14:20)
[2018-02-04] MEDS: SODIUM CHLORIDE NASAL SPRAY 44 ML BOTTLE NS SCH ×3 (07:13→23:50)
[2018-02-04] MEDS ORDERED: PT OWN MED DRAWER 7, Y5N ONE ×3 (08:00→23:35)
[2018-02-04] MEDS: BACLOFEN 10 MG TABLET (FP) GT SCH ×3 (08:16→22:11)
[2018-02-04] MEDS: LEVOTHYROXINE NA 25 MCG TABLET (FP) PEG SCH (08:17)
[2018-02-04 08:30] LABS: BASO % 0.5 % (0-2.0); EOS % 1.4 % (0-4.5); HEMATOCRIT 24.4 % (35.4-49); HEMOGLOBIN 8.1 GM/dL (11.7-16.9); LYMPH % 30.9 % (8-40); MCH 27.2 pg (25.7-33.7); MCHC 33.1 g/dl (32.0-35.9); MEAN CELL VOLUME 82.1 fl (80-96); MEAN PLT VOLUME 10.6 fl (7.5-11.1); MONO % 7.2 % (3.8-10.2); PLATELET COUNT 155 K/MM3 (134-434); RBC 2.98 M/mm3 (4.00-5.60); RDW 22.5 % (11.9-15.9); WHITE BLOOD COUNT 4.3 K/mm3 (4.0-10.0)
[2018-02-04 09:09] LABS: CHLORIDE 108 mmol/L (98-107); POTASSIUM 3.6 mmol/L (3.5-5.1); SODIUM 143 mmol/L (136-145)
[2018-02-04 09:12] LABS: BLOOD UREA NITROGEN 82 mg/dL (7-18)
[2018-02-04 09:16] LABS: ALBUMIN 2.2 g/dl (3.4-5.0); ALK PHOS 121 U/L (45-117); ANION GAP 9 (8-16); BILIRUBIN,TOTAL 0.4 mg/dL (0.2-1.0); CALCIUM 8.1 mg/dL (8.5-10.1); CO2 26 mmol/L (21-32); CREATININE 1.9 mg/dL (0.7-1.3); GLUCOSE,RANDOM 130 mg/dL (74-106); MAGNESIUM 2.1 mg/dL (1.8-2.4); SGOT/AST 77 U/L (15-37); SGPT/ALT 121 U/L (12-78); TOT PROT 6.4 g/dl (6.4-8.2)
[2018-02-04] MEDS ORDERED: DEXTROSE 5%-NORMAL SALINE 1,000 ML IV SCH ×2 (09:45→20:00)
[2018-02-04] MEDS: MUPIROCIN 2% TOPICAL OINTMENT 22 GM TUBE TP SCH ×2 (09:55→23:51)
[2018-02-04] MEDS: [UNRECOGNIZED DRUG - OTHER] PO SCH (09:56)
[2018-02-04] MEDS: OXYBUTYNIN CHLORIDE 5 MG TABLET NGT SCH ×2 (09:56→22:11)
[2018-02-04] MEDS: POTASSIUM CHLORIDE ORAL LIQUID 20 MEQ/15 ML PO SCH (10:01)
[2018-02-04] MEDS: SERTRALINE HCL 25 MG TABLET (FP) NR SCH (10:01)
--- NOTE | 2018-02-04 10:42 | PN ---
Progress Note (short form) - Note Progress Note: Vented, poorly responsive. No acute events overnight. Intake & Output 02/01/18 02/02/18 02/03/18 02/04/18 23:59 23:59 23:59 23:59 Intake Total 1134 1511.5 2153.5 Output Total 1900 1600 1900 600 Balance -766 -88.5 253.5 -600 Weight 163 lb 158 lb 6.4 oz 156 lb 6.4 oz 155 lb 9.6 oz Last Vital Signs Temp Pulse Resp BP Pulse Ox 98.7 F 48 L 14 129/57 100 02/04/18 06:00 02/04/18 06:00 02/04/18 10:27 02/04/18 06:00 02/04/18 05:00 Active Medications Baclofen (Lioresal -) 10 mg GT TID [facility] Last Admin: 02/04/18 08:16 Dose: Not Given Furosemide (Lasix Injection -) 40 mg IVPUSH BID@0600,1400 [facility] Last Admin: 02/04/18 07:12 Dose: 40 mg Ertapenem 0.5 gm/ Sodium (Chloride) 50 mls @ 100 mls/hr IVPB DAILY@2200 [facility]; Protocol Last Admin: 02/03/18 21:52 Dose: 100 mls/hr Dextrose/Sodium Chloride (D5-Ns -) 1,000 mls @ 42 mls/hr IV ASDIR [facility] Last Admin: 02/04/18 09:54 Dose: 42 mls/hr Insulin Aspart (Novolog Vial Sliding Scale -) 1 vial SQ Q6HPO [facility]; Protocol Last Admin: 02/04/18 05:59 Dose: Not Given Levothyroxine Sodium (Synthroid -) 37.5 mcg PEG DAILY@0700 [facility] Last Admin: 02/04/18 08:17 Dose: Not Given Mupirocin (Bactroban 2% Ointment -) 1 applic TP BID [facility] Last Admin: 02/04/18 09:55 Dose: [address]Formulated [place] ( Pt's Own Med) 1 each PO DAILY [facility] Last Admin: 02/04/18 09:56 Dose: Not Given Oxybutynin Chloride (Ditropan -) 5 mg NGT BID [facility] Last Admin: 02/04/18 09:56 Dose: Not Given Potassium Chloride (Potassium Chloride Oral Liquid) 60 meq PO DAILY [facility] Last Admin: 02/04/18 10:01 Dose: Not Given Sertraline HCl (Zoloft -) 25 mg NR DAILY [facility] Last Admin: 02/04/18 10:01 Dose: Not Given Sodium Chloride ([place] Nasal [place] -) 2 spray NS TID [facility] Last Admin: 02/04/18 07:13 Dose: 2 spray Gen: vented, poorly responsive Heart: RRR Lung: scattered rhonchi Abd: soft, nontender Ext: no edema Laboratory Results - last 24 hr 02/03/18 02/03/18 02/03/18 13:44 17:59 22:06 WBC RBC Hgb Hct MCV MCH MCHC RDW Plt Count MPV Neutrophils % Lymphocytes % Monocytes % Eosinophils % Basophils % Nucleated RBC % Sodium Potassium Chloride Carbon Dioxide Anion Gap BUN Creatinine Creat Clearance w eGFR POC Glucometer 182 162 171 Random Glucose Calcium Magnesium Total Bilirubin AST ALT Alkaline Phosphatase Total Protein Albumin 02/04/18 02/04/18 02/04/18 05:53 08:00 08:00 WBC 4.3 RBC 2.98 L Hgb 8.1 L Hct 24.4 L MCV 82.1 MCH 27.2 MCHC 33.1 RDW 22.5 H Plt Count 155 MPV 10.6 Neutrophils % 60.0 Lymphocytes % 30.9 D Monocytes % 7.2 Eosinophils % 1.4 Basophils % 0.5 Nucleated RBC % 0 Sodium 143 Potassium 3.6 Chloride 108 H Carbon Dioxide 26 Anion Gap 9 BUN 82 H Creatinine 1.9 H Creat Clearance w eGFR 33.86 POC Glucometer 150 Random Glucose 130 H Calcium 8.1 L Magnesium 2.1 Total Bilirubin 0.4 D AST 77 H D ALT 121 H D Alkaline Phosphatase 121 H D Total Protein 6.4 Albumin 2.2 L A/P Chronic Respiratory Failure Hemoptysis likely from Epistaxis Acute Blood Loss Anemia Acute Kidney Injury Atrial Fibrillation DM CHF h/o Traumatic Brain Injury - monitor H/H - Normal transfusion thresholds - Lasix - monitor urine output, creatinine - O2 to keep SpO2 >90% - continue volume assist control - poor candidate for weaning at this time - DVT/GI prophylaxis Dr Lr
--- NOTE | 2018-02-04 12:21 | PN ---
Progress Note, Physician - Current Medication List Current Medications: Active Medications Baclofen (Lioresal -) 10 mg GT TID [facility] Last Admin: 02/04/18 08:16 Dose: Not Given Furosemide (Lasix Injection -) 40 mg IVPUSH BID@0600,1400 [facility] Last Admin: 02/04/18 07:12 Dose: 40 mg Ertapenem 0.5 gm/ Sodium (Chloride) 50 mls @ 100 mls/hr IVPB DAILY@2200 [facility]; Protocol Last Admin: 02/03/18 21:52 Dose: 100 mls/hr Dextrose/Sodium Chloride (D5-Ns -) 1,000 mls @ 42 mls/hr IV ASDIR [facility] Last Admin: 02/04/18 09:54 Dose: 42 mls/hr Insulin Aspart (Novolog Vial Sliding Scale -) 1 vial SQ Q6HPO [facility]; Protocol Last Admin: 02/04/18 05:59 Dose: Not Given Levothyroxine Sodium (Synthroid -) 37.5 mcg PEG DAILY@0700 [facility] Last Admin: 02/04/18 08:17 Dose: Not Given Mupirocin (Bactroban 2% Ointment -) 1 applic TP BID [facility] Last Admin: 02/04/18 09:55 Dose: 1 applic Probiotis ( Pt's Own Med) 1 each PO DAILY [facility] Last Admin: 02/04/18 09:56 Dose: Not Given Oxybutynin Chloride (Ditropan -) 5 mg NGT BID [facility] Last Admin: 02/04/18 09:56 Dose: Not Given Potassium Chloride (Potassium Chloride Oral Liquid) 60 meq PO DAILY [facility] Last Admin: 02/04/18 10:01 Dose: Not Given Sertraline HCl (Zoloft -) 25 mg NR DAILY [facility] Last Admin: 02/04/18 10:01 Dose: Not Given Sodium Chloride ([place] Nasal [place] -) 2 spray NS TID [facility] Last Admin: 02/04/18 07:13 Dose: 2 spray - Objective Vital Signs: Vital Signs Temperature 98.7 F 02/04/18 06:00 Pulse Rate 48 L 02/04/18 06:00 Respiratory Rate 14 02/04/18 10:27 Blood Pressure 129/57 02/04/18 06:00 O2 Sat by Pulse Oximetry (%) 100 02/04/18 05:00 Labs: CBC, BMP 02/04/18 08:00 02/04/18 08:00 INR, PTT INR 1.10 (0.82-1.09) 01/21/18 15:00 Problem List - Problems (1) Hemorrhage from tracheostomy stoma Code(s): J95.01 - HEMORRHAGE FROM TRACHEOSTOMY STOMA (2) Acute on chronic diastolic CHF (congestive heart failure) Code(s): I50.33 - ACUTE ON CHRONIC DIASTOLIC (CONGESTIVE) HEART FAILURE (3) Chronic respiratory failure Code(s): J96.10 - CHRONIC RESPIRATORY FAILURE, UNSP W HYPOXIA OR HYPERCAPNIA (4) Diabetes Code(s): E11.9 - TYPE 2 DIABETES MELLITUS WITHOUT COMPLICATIONS (5) Epistaxis Code(s): R04.0 - EPISTAXIS (6) Abnormal liver enzymes Code(s): R74.8 - ABNORMAL LEVELS OF OTHER SERUM ENZYMES (7) Cholestasis, intrahepatic Code(s): K76.89 - OTHER SPECIFIED DISEASES OF LIVER
[2018-02-04] MEDS ORDERED: INSULIN (NOVOLOG) ASPART 100 UNITS/ML 10ML VIAL ONE (12:28)
--- NOTE | 2018-02-04 12:51 | PN ---
Progress Note (short form) - Note Progress Note: the patient was found with chronic, leaking G-tube this morning. It appears to be replaceable, 18 [place] gastrostomy tube. It was replaced at the bedside with 22 [place], smallest available to me, without any immediate complications, resistance, or bleeding. Gastrografin ordered. Okay to use the new G-tube As intended if Gastrografin study confirms the desirable G-tube position. Problem List - Problems (1) Hemorrhage from tracheostomy stoma Code(s): J95.01 - HEMORRHAGE FROM TRACHEOSTOMY STOMA (2) Acute on chronic diastolic CHF (congestive heart failure) Code(s): I50.33 - ACUTE ON CHRONIC DIASTOLIC (CONGESTIVE) HEART FAILURE (3) Chronic respiratory failure Code(s): J96.10 - CHRONIC RESPIRATORY FAILURE, UNSP W HYPOXIA OR HYPERCAPNIA (4) Diabetes Code(s): E11.9 - TYPE 2 DIABETES MELLITUS WITHOUT COMPLICATIONS (5) Epistaxis Code(s): R04.0 - EPISTAXIS (6) Abnormal liver enzymes Code(s): R74.8 - ABNORMAL LEVELS OF OTHER SERUM ENZYMES (7) Cholestasis, intrahepatic Code(s): K76.89 - OTHER SPECIFIED DISEASES OF LIVER
--- NOTE | 2018-02-04 13:33 | PN ---
Progress Note, Physician Chief Complaint: Pt keeps eyes closed today except to tactile stimul History of Present Illness: This is an 87 yr old white man with h/o traumatic fall down stairs (admitted to [facility] about a month ago and had neck/back surgery, tracheotomy placement 2016 now with traumatic brain injury (TBI), ventilator dependent, and PEG tube placement), recent aspiration PNA, A-fib, CHF, DM, renal failure, TBI, legally blind and deaf; who is BIBA from [facility] in [place] for blood with clots suctioned from his tracheostomy tube yesterday , as well as anemia detected on his lab work today. He was supposed to have been transported to [facility] for fci management, but is stopping here at [facility] because of the anemia. Per conversation with attending Dr. Yadiel Gallegos at [facility], yesterday the patient was noted to have bloody secretions suctioned from tracheostomy site , so CBC was checked. His Hct was 24 yesterday, which was down ~10 points from his prior values. They re-checked it again today and Hct was 21. [facility] checked his urine and there was a small amount of blood in it (not enough to explain the Hct drop). Their primary concern has been for GI bleed and FOBT was ordered but had not resulted at the time the patient was sent here. Received his noon medications and simethicone and a portion of his noon PEG tube feeding (had to be stopped early for transport). - Current Medication List Current Medications: Active Medications Baclofen (Lioresal -) 10 mg GT TID [facility] Last Admin: 02/04/18 08:16 Dose: Not Given Furosemide (Lasix Injection -) 40 mg IVPUSH BID@0600,1400 [facility] Last Admin: 02/04/18 07:12 Dose: 40 mg Ertapenem 0.5 gm/ Sodium (Chloride) 50 mls @ 100 mls/hr IVPB DAILY@2200 [facility]; Protocol Last Admin: 02/03/18 21:52 Dose: 100 mls/hr Dextrose/Sodium Chloride (D5-Ns -) 1,000 mls @ 42 mls/hr IV ASDIR [facility] Last Admin: 02/04/18 09:54 Dose: 42 mls/hr Insulin Aspart (Novolog Vial Sliding Scale -) 1 vial SQ Q6HPO [facility]; Protocol Last Admin: 02/04/18 12:52 Dose: 2 units Levothyroxine Sodium (Synthroid -) 37.5 mcg PEG DAILY@0700 [facility] Last Admin: 02/04/18 08:17 Dose: Not Given Mupirocin (Bactroban 2% Ointment -) 1 applic TP BID [facility] Last Admin: 02/04/18 09:55 Dose: 1 applic Probiotis (Nf Pt's Own Med) 1 each PO DAILY [facility] Last Admin: 02/04/18 09:56 Dose: Not Given Oxybutynin Chloride (Ditropan -) 5 mg NGT BID [facility] Last Admin: 02/04/18 09:56 Dose: Not Given Potassium Chloride (Potassium Chloride Oral Liquid) 60 meq PO DAILY [facility] Last Admin: 02/04/18 10:01 Dose: Not Given Sertraline HCl (Zoloft -) 25 mg NR DAILY [facility] Last Admin: 02/04/18 10:01 Dose: Not Given Sodium Chloride ([place] Nasal [place] -) 2 spray NS TID [facility] Last Admin: 02/04/18 07:13 Dose: 2 spray - Objective Vital Signs: Vital Signs Temperature 98.7 F 02/04/18 06:00 Pulse Rate 48 L 02/04/18 06:00 Respiratory Rate 14 02/04/18 10:27 Blood Pressure 129/57 02/04/18 06:00 O2 Sat by Pulse Oximetry (%) 100 02/04/18 05:00 Constitutional: Yes: Thin Eyes: Yes: WNL HENT: Yes: Other (trached; ventilator) Neck: Yes: Decreased ROM Cardiovascular: Yes: Bradycardia, S1, S2 Respiratory: Yes: Mechanically Ventilated, Rales Gastrointestinal: Yes: Soft Genitourinary: No: Anuria Musculoskeletal: Yes: Muscle Weakness Extremities: Yes: Cool Edema: No Peripheral Pulses WNL: No Peripheral Pulses: Left Doralis Pedis: 1+, Right Dorsalis Pedis: 1+ Integumentary: Yes: WNL Neurological: Yes: Weakness Psychiatric: Yes: Other Labs: CBC, BMP 02/04/18 08:00 02/04/18 08:00 INR, PTT INR 1.10 (0.82-1.09) 01/21/18 15:00 - ....Imaging Chest X-ray: Image Reviewed (no significant change; marked bibasilar atelectastis) Problem List - Problems (1) Acute on chronic diastolic CHF (congestive heart failure) Assessment/Plan: ECHO: normal LVEF; mild-moderate MR F/u BUN/Cr (82/1.9), electrolytes (K 3.6), daily weight, Is and Os. Code(s): I50.33 - ACUTE ON CHRONIC DIASTOLIC (CONGESTIVE) HEART FAILURE (2) Chronic respiratory failure Assessment/Plan: trached; mechanically dependent Code(s): J96.10 - CHRONIC RESPIRATORY FAILURE, UNSP W HYPOXIA OR HYPERCAPNIA (3) Diabetes Code(s): E11.9 - TYPE 2 DIABETES MELLITUS WITHOUT COMPLICATIONS (4) Epistaxis Assessment/Plan: No further discharge. F/u Hb (stable ) Code(s): R04.0 - EPISTAXIS (5) Hypothyroid Assessment/Plan: TSH wnl; on Synthroid Code(s): E03.9 - HYPOTHYROIDISM, UNSPECIFIED (6) S/P percutaneous endoscopic gastrostomy (PEG) tube placement Code(s): Z93.1 - GASTROSTOMY STATUS (7) TBI (traumatic brain injury) Code(s): S06.9X9A - UNSP INTRACRANIAL INJURY W LOC OF UNSP DURATION, INIT (8) Tracheostomy dependent Code(s): Z93.0 - TRACHEOSTOMY STATUS (9) Sinus bradycardia Code(s): R00.1 - BRADYCARDIA, UNSPECIFIED (10) PAF (paroxysmal atrial fibrillation) Code(s): I48.0 - PAROXYSMAL ATRIAL FIBRILLATION (11) Hypokalemia Code(s): E87.6 - HYPOKALEMIA
--- NOTE | 2018-02-04 15:25 | PN ---
Progress Note (short form) - Note Progress Note: Renal follow up for KATERIN on CKD Pt seen and examined at the bedside on vent poorly responsive making urine via christopher G-tube was replaced this am on IVF currently Vital Signs Temperature 98.7 F 02/04/18 06:00 Pulse Rate 48 L 02/04/18 06:00 Respiratory Rate 14 02/04/18 14:10 Blood Pressure 129/57 02/04/18 06:00 O2 Sat by Pulse Oximetry (%) 100 02/04/18 05:00 Intake & Output 02/01/18 02/02/18 02/03/18 02/04/18 23:59 23:59 23:59 23:59 Intake Total 1134 1511.5 2153.5 Output Total 1900 1600 1900 600 Balance -766 -88.5 253.5 -600 Weight 73.936 kg 71.849 kg 70.942 kg 70.579 kg NAD on Vent No JVD RRR, No M/R Course BS trace sacral edema CBC, BMP 02/04/18 08:00 02/04/18 08:00 Current Medications Baclofen (Lioresal -) 10 mg GT TID [facility] Last Admin: 02/04/18 15:20 Dose: 10 mg Furosemide (Lasix Injection -) 40 mg IVPUSH BID@0600,1400 [facility] Last Admin: 02/04/18 14:20 Dose: 40 mg Ertapenem 0.5 gm/ Sodium (Chloride) 50 mls @ 100 mls/hr IVPB DAILY@2200 [facility]; Protocol Last Admin: 02/03/18 21:52 Dose: 100 mls/hr Insulin Aspart (Novolog Vial Sliding Scale -) 1 vial SQ Q6HPO [facility]; Protocol Last Admin: 02/04/18 12:52 Dose: 2 units Levothyroxine Sodium (Synthroid -) 37.5 mcg PEG DAILY@0700 [facility] Last Admin: 02/04/18 08:17 Dose: Not Given Mupirocin (Bactroban 2% Ointment -) 1 applic TP BID [facility] Last Admin: 02/04/18 09:55 Dose: [address]Formulated [place] (Nf Pt's Own Med) 1 each PO DAILY [facility] Last Admin: 02/04/18 09:56 Dose: Not Given Oxybutynin Chloride (Ditropan -) 5 mg NGT BID [facility] Last Admin: 02/04/18 09:56 Dose: Not Given Potassium Chloride (Potassium Chloride Oral Liquid) 60 meq PO DAILY [facility] Last Admin: 02/04/18 10:01 Dose: Not Given Sertraline HCl (Zoloft -) 25 mg NR DAILY [facility] Last Admin: 02/04/18 10:01 Dose: Not Given Sodium Chloride ([place] Nasal [place] -) 2 spray NS TID [facility] Last Admin: 02/04/18 15:21 Dose: 2 spray 87 year old gentleman with PMhx of Traumatic brain injury now vented via trach with PEG, DM, CKD, CHF, Afib who presented with bright red blood from ET suctioning and found have acute anemia and Cr of 2. #KATERIN/CKD #Bleeding from ET tube #B/L Pleural effusions #Acute on Chronic Anemia #Hypernatremia #Proteinuria #Possible UTI #Hypokalemia CXR shows persistent pleural effusions, will maintain on Lasix IV BID Trend BUN/Cr, electrolytes continue potassium supplementation continue vent support palliative evaluation Frank Ayoub DO
--- NOTE | 2018-02-04 15:42 | PN ---
Progress Note, Physician History of Present Illness: no gross change g tube changed this morning - Current Medication List Current Medications: Active Medications Baclofen (Lioresal -) 10 mg GT TID [facility] Last Admin: 02/04/18 15:20 Dose: 10 mg Furosemide (Lasix Injection -) 40 mg IVPUSH BID@0600,1400 [facility] Last Admin: 02/04/18 14:20 Dose: 40 mg Ertapenem 0.5 gm/ Sodium (Chloride) 50 mls @ 100 mls/hr IVPB DAILY@2200 [facility]; Protocol Last Admin: 02/03/18 21:52 Dose: 100 mls/hr Insulin Aspart (Novolog Vial Sliding Scale -) 1 vial SQ Q6HPO [facility]; Protocol Last Admin: 02/04/18 12:52 Dose: 2 units Levothyroxine Sodium (Synthroid -) 37.5 mcg PEG DAILY@0700 [facility] Last Admin: 02/04/18 08:17 Dose: Not Given Mupirocin (Bactroban 2% Ointment -) 1 applic TP BID [facility] Last Admin: 02/04/18 09:55 Dose: 1 applic Probiotis ( Pt's Own Med) 1 each PO DAILY [facility] Last Admin: 02/04/18 09:56 Dose: Not Given Oxybutynin Chloride (Ditropan -) 5 mg NGT BID [facility] Last Admin: 02/04/18 09:56 Dose: Not Given Potassium Chloride (Potassium Chloride Oral Liquid) 60 meq PO DAILY [facility] Last Admin: 02/04/18 10:01 Dose: Not Given Sertraline HCl (Zoloft -) 25 mg NR DAILY [facility] Last Admin: 02/04/18 10:01 Dose: Not Given Sodium Chloride ([place] Nasal [place] -) 2 spray NS TID [facility] Last Admin: 02/04/18 15:21 Dose: 2 spray - Objective Vital Signs: Vital Signs Temperature 97.8 F 02/04/18 14:00 Pulse Rate 48 L 02/04/18 14:00 Respiratory Rate 14 02/04/18 14:10 Blood Pressure 132/68 02/04/18 14:00 O2 Sat by Pulse Oximetry (%) 100 02/04/18 05:00 Constitutional: Yes: Other Cardiovascular: Yes: Regular Rate and Rhythm Respiratory: Yes: Regular, CTA Bilaterally Gastrointestinal: Yes: Soft, Other (gtube in place) Musculoskeletal: Yes: WNL Extremities: Yes: WNL Edema: LLE: Trace, RLE: Trace Neurological: Yes: Other Labs: CBC, BMP 02/04/18 08:00 02/04/18 08:00 INR, PTT INR 1.10 (0.82-1.09) 01/21/18 15:00 Assessment/Plan 87yo M with 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 He was found to have bright red bloody secretions suctioned from tracheostomy site.and now found to have esbl uti uti ac blood loos anemia Acute CHF Exacerbation S/p Tracheostomy Afib CKD DM2 Hypothyroidism plan continue current mgmt cdiff negative rest continue current mgmt patient continues to be critical
--- NOTE | 2018-02-04 16:41 | PN ---
Physical Exam: SUBJECTIVE: Patient seen and examined at the bedside. OBJECTIVE: GTube clogged overnight, replaced by GI and placement confirmed Vital Signs Period Temp Pulse Resp BP Sys/Wills Pulse Ox Last 24 Hr 97.8 F-98.7 F 48-53 14-16 126-146/57-68 99-100 GENERAL: The patient is awake, alert, non verbal at baseline HEAD: Normal with no signs of trauma. EYES: PERRL, extraocular movements intact, sclera anicteric, conjunctiva clear. No ptosis. ENT: Ears normal, nares patent, oropharynx clear without exudates, moist mucous membranes. NECK: trach tube, no further hemoptysis LUNGS: Breath sounds equal, clear to auscultation anteriorly HEART: Regular rate and rhythm ABDOMEN: new + peg tube placed by GI NEUROLOGICAL: Non verbal at baseline PSYCH: Normal mood, normal affect. SKIN: Warm, dry, normal turgor, no rashes or lesions noted Laboratory Results - last 24 hr 02/03/18 02/03/18 02/04/18 17:59 22:06 05:53 WBC RBC Hgb Hct MCV MCH MCHC RDW Plt Count MPV Neutrophils % Lymphocytes % Monocytes % Eosinophils % Basophils % Nucleated RBC % Sodium Potassium Chloride Carbon Dioxide Anion Gap BUN Creatinine Creat Clearance w eGFR POC Glucometer 162 171 150 Random Glucose Calcium Magnesium Total Bilirubin AST ALT Alkaline Phosphatase Total Protein Albumin 02/04/18 02/04/18 02/04/18 08:00 08:00 11:59 WBC 4.3 RBC 2.98 L Hgb 8.1 L Hct 24.4 L MCV 82.1 MCH 27.2 MCHC 33.1 RDW 22.5 H Plt Count 155 MPV 10.6 Neutrophils % 60.0 Lymphocytes % 30.9 D Monocytes % 7.2 Eosinophils % 1.4 Basophils % 0.5 Nucleated RBC % 0 Sodium 143 Potassium 3.6 Chloride 108 H Carbon Dioxide 26 Anion Gap 9 BUN 82 H Creatinine 1.9 H Creat Clearance w eGFR 33.86 POC Glucometer 171 Random Glucose 130 H Calcium 8.1 L Magnesium 2.1 Total Bilirubin 0.4 D AST 77 H D ALT 121 H D Alkaline Phosphatase 121 H D Total Protein 6.4 Albumin 2.2 L Active Medications Generic Name Dose Route Start Last Admin Trade Name Freq PRN Reason Stop Dose Admin Baclofen 10 mg 01/22/18 22:00 02/04/18 15:20 Lioresal - GT 10 mg TID [facility] Administration Furosemide 40 mg 02/04/18 06:00 02/04/18 14:20 Lasix Injection - IVPUSH 40 mg BID@0600,1400 [facility] Administration Ertapenem 0.5 gm/ Sodium 50 mls @ 100 mls/hr 01/31/18 22:00 02/03/18 21:52 Chloride IVPB 100 mls/hr DAILY@2200 [facility] Administration Protocol Insulin Aspart 1 vial 01/25/18 18:00 02/04/18 12:52 Novolog Vial Sliding Scale - SQ 2 units Q6HPO [facility] Administration Protocol Levothyroxine Sodium 37.5 mcg 01/23/18 07:00 02/04/18 08:17 Synthroid - PEG Not Given DAILY@0700 [facility] Mupirocin 1 applic 01/29/18 14:00 02/04/18 09:55 Bactroban 2% Ointment - TP 1 applic BID [facility] Administration Formulated 1 each 02/01/18 11:30 02/04/18 09:56 Probiotis (Nf Pt's PO Not Given Own Med) DAILY [facility] Oxybutynin Chloride 5 mg 01/22/18 22:00 02/04/18 09:56 Ditropan - NGT Not Given BID [facility] Potassium Chloride 60 meq 01/30/18 06:00 02/04/18 10:01 Potassium Chloride Oral Liquid PO Not Given DAILY [facility] Sertraline HCl 25 mg 01/23/18 10:00 02/04/18 10:01 Zoloft - NR Not Given DAILY [facility] Sodium Chloride 2 spray 01/26/18 22:00 02/04/18 15:21 [place] Nasal [place] - NS 2 spray TID [facility] Administration ASSESSMENT/PLAN: Patient is an 87 year old male with a significant past medical history of traumatic fall in 2017 requiring neck and back surgery with trach placement, atrial fibrillation, anemia, aspiration pneumonia s/p trach placement 08/2017 with vent dependence, RUE DVT, CHF, diabetes mellitus, TBI, legal blindness. [facility] for blood clots around tracheostomy site. He was found to have Esbl UTI and was started on meropenem by ID. Imaging: CTAP: (1) No evidence of fluid within the pelvis. At least moderate sized bilateral pleural effusions with bilateral lower lobe compressive atelectasis, small volume of right periphatic free fluid and diffuse body well edema. Please correlate clinically with dedicated imaging of the chest (2) Short segment wall thickening versus underdistension of the sigmoid colon. (3) chronic calcific pancreatitis (4) indeterminate 1.5 cm right adrenal gland nodule could be an adenoma. ID: [id number] UTI: On Meropenem (dose #12), will need 14 doses as per ID Meropenem started on 01/24 No fevers, no leukocytosis Repeat UC negative Pulm: Hemoptysis, resolved No bleeding around trach site GI: Transaminitis CTAP reviewed, liver enzymes mildly elevated but trending down Hepatic congestion Continue to trend GI following, notes reviewed Diarrhea: Negative for cdiff Restart feeds Heme: Acute blood loss anemia s/p 1 unit of prbc on 01/21 with venofer Transfuse if hmg <8 due to cardiac disease hmg/hct stable Pulm: Chronic respiratory failure, trach dependence Renal: KATERIN on CKD Creat trending down : Urinary retention Childs replaced for large post void residual CV: Acute on chronic diastolic heart failure On Lasix BID Prox, atril fib No anticoags 2/2 to anemia Rate controlled Endocrine: Diabetes, chronic On SS Hypothyroidism, chronic On Synthroid Functional quadraplegia Turn and position q2, protect bony prominences F.E.N. Fluids: None Electrolytes: Monitor Nutrition: Nepro with goal rate of 50 Prophy: DVT: scds GI: Protonix Disposition: full code. Visit type - Emergency Visit Emergency Visit: Yes ED Registration Date: 01/21/18 Care time: The patient presented to the Emergency Department on the above date and was hospitalized for further evaluation of their emergent condition. - New Patient This patient is new to me today: No - Critical Care Critical Care patient: No - Discharge Referral Referred to [facility] No
[2018-02-04] MEDS: ERTAPENEM SODIUM 0.5 GM in SODIUM CHLORIDE 50 ML IVPB SCH (23:57)
[2018-02-05] MEDS: INSULIN SLIDING SCALE (NOVOLOG) 1 VIAL SQ SCH ×5 (02:10→23:28)
[2018-02-05] MEDS: BACLOFEN 10 MG TABLET (FP) GT SCH ×3 (05:29→23:30)
[2018-02-05] MEDS: FUROSEMIDE 40 MG/4 ML INJECTABLE VIAL IVPUSH SCH ×2 (05:44→15:07)
[2018-02-05] MEDS: SODIUM CHLORIDE NASAL SPRAY 44 ML BOTTLE NS SCH ×3 (05:45→23:29)
[2018-02-05] MEDS: LEVOTHYROXINE NA 25 MCG TABLET (FP) PEG SCH (06:25)
[2018-02-05] MEDS: MUPIROCIN 2% TOPICAL OINTMENT 22 GM TUBE TP SCH ×2 (10:03→21:41)
[2018-02-05] MEDS: OXYBUTYNIN CHLORIDE 5 MG TABLET NGT SCH ×2 (10:04→21:42)
[2018-02-05 10:22] LABS: BASO % 0.5 % (0-2.0); EOS % 1.3 % (0-4.5); HEMATOCRIT 24.6 % (35.4-49); HEMOGLOBIN 8.1 GM/dL (11.7-16.9); LYMPH % 26.6 % (8-40); MCH 26.9 pg (25.7-33.7); MEAN CELL VOLUME 81.6 fl (80-96); MONO % 8.4 % (3.8-10.2); NEUT % 63.2 % (42.8-82.8); PLATELET COUNT 143 K/MM3 (134-434); RBC 3.01 M/mm3 (4.00-5.60); RDW 22.7 % (11.9-15.9); WHITE BLOOD COUNT 4.8 K/mm3 (4.0-10.0)
[2018-02-05 10:35] LABS: CHLORIDE 110 mmol/L (98-107); POTASSIUM 3.5 mmol/L (3.5-5.1); SODIUM 145 mmol/L (136-145)
[2018-02-05 11:07] LABS: ALBUMIN 2.2 g/dl (3.4-5.0); ALK PHOS 109 U/L (45-117); ANION GAP 8 (8-16); BILIRUBIN,TOTAL 0.4 mg/dL (0.2-1.0); BLOOD UREA NITROGEN 76 mg/dL (7-18); CALCIUM 8.3 mg/dL (8.5-10.1); CO2 27 mmol/L (21-32); CREATININE 1.9 mg/dL (0.7-1.3); GLUCOSE,RANDOM 151 mg/dL (74-106); MAGNESIUM 2.1 mg/dL (1.8-2.4); SGOT/AST 53 U/L (15-37); SGPT/ALT 92 U/L (12-78); TOT PROT 6.4 g/dl (6.4-8.2)
[2018-02-05] MEDS: SERTRALINE HCL 25 MG TABLET (FP) NR SCH (11:37)
[2018-02-05] MEDS: [UNRECOGNIZED DRUG - OTHER] PO SCH (11:37)
[2018-02-05] MEDS: POTASSIUM CHLORIDE ORAL LIQUID 20 MEQ/15 ML PO SCH (11:37)
--- NOTE | 2018-02-05 12:12 | PN ---
Progress Note, Physician History of Present Illness: This is an 87 yr old white man with h/o traumatic fall down stairs (admitted to [facility] about a month ago and had neck/back surgery, tracheotomy placement 2016 now with traumatic brain injury (TBI), ventilator dependent, and PEG tube placement), recent aspiration PNA, A-fib, CHF, DM, renal failure, TBI, legally blind and deaf; who is BIBA from [facility] in [place] for blood with clots suctioned from his tracheostomy tube yesterday , as well as anemia detected on his lab work today. 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 Per conversation with attending Dr. Yadiel Gallegos at [facility], yesterday the patient was noted to have bloody secretions suctioned from tracheostomy site , so CBC was checked. His Hct was 24 yesterday, which was down ~10 points from his prior values. They re-checked it again today and Hct was 21. [facility] checked his urine and there was a small amount of blood in it (not enough to explain the Hct drop). Their primary concern has been for GI bleed and FOBT was ordered but had not resulted at the time the patient was sent here. Received his noon medications and simethicone and a portion of his noon PEG tube feeding (had to be stopped early for transport). - Current Medication List Current Medications: Active Medications Baclofen (Lioresal -) 10 mg GT TID [facility] Last Admin: 02/05/18 05:29 Dose: Not Given Furosemide (Lasix Injection -) 40 mg IVPUSH BID@0600,1400 [facility] Last Admin: 02/05/18 05:44 Dose: 40 mg Ertapenem 0.5 gm/ Sodium (Chloride) 50 mls @ 100 mls/hr IVPB DAILY@2200 [facility]; Protocol Last Admin: 02/04/18 23:57 Dose: 100 mls/hr Dextrose/Sodium Chloride (D5-Ns -) 1,000 mls @ 42 mls/hr IV ASDIR [facility] Last Admin: 02/04/18 20:30 Dose: 42 mls/hr Insulin Aspart (Novolog Vial Sliding Scale -) 1 vial SQ Q6HPO [facility]; Protocol Last Admin: 02/05/18 06:42 Dose: Not Given Levothyroxine Sodium (Synthroid -) 37.5 mcg PEG DAILY@0700 [facility] Last Admin: 02/05/18 06:25 Dose: Not Given Mupirocin (Bactroban 2% Ointment -) 1 applic TP BID [facility] Last Admin: 02/04/18 23:51 Dose: 1 applic Probiotis (Nf Pt's Own Med) 1 each PO DAILY [facility] Last Admin: 02/04/18 09:56 Dose: Not Given Oxybutynin Chloride (Ditropan -) 5 mg NGT BID [facility] Last Admin: 02/04/18 22:11 Dose: Not Given Potassium Chloride (Potassium Chloride Oral Liquid) 60 meq PO DAILY [facility] Last Admin: 02/04/18 10:01 Dose: Not Given Sertraline HCl (Zoloft -) 25 mg NR DAILY [facility] Last Admin: 02/04/18 10:01 Dose: Not Given Sodium Chloride ([place] Nasal [place] -) 2 spray NS TID [facility] Last Admin: 02/05/18 05:45 Dose: 2 spray - Objective Vital Signs: Vital Signs Temperature 97.6 F 02/05/18 06:00 Pulse Rate 50 L 02/05/18 08:19 Respiratory Rate 14 02/05/18 11:33 Blood Pressure 133/56 02/05/18 06:00 O2 Sat by Pulse Oximetry (%) 97 02/05/18 11:33 Eyes: Yes: WNL, Conjunctiva Clear, EOM Intact HENT: Yes: WNL, Atraumatic, Normocephalic Neck: Yes: WNL, Supple, Trachea Midline Cardiovascular: Yes: WNL, Regular Rate and Rhythm, S1, S2 Respiratory: Yes: WNL, Regular, Mechanically Ventilated Gastrointestinal: Yes: WNL, Normal Bowel Sounds Genitourinary: Yes: WNL Musculoskeletal: Yes: WNL Extremities: Yes: WNL Edema: No Integumentary: Yes: WNL Neurological: Yes: WNL, Alert, Oriented ...Motor Strength: WNL Psychiatric: Yes: WNL Labs: CBC, BMP 02/05/18 09:20 02/05/18 09:20 INR, PTT INR 1.10 (0.82-1.09) 01/21/18 15:00 Assessment/Plan - Problems (1) Acute on chronic diastolic CHF (congestive heart failure) Assessment/Plan: ECHO: normal LVEF; mild-moderate MR F/u BUN/Cr (82/1.9), electrolytes (K 3.6), daily weight, Is and Os. Code(s): I50.33 - ACUTE ON CHRONIC DIASTOLIC (CONGESTIVE) HEART FAILURE (2) Chronic respiratory failure Assessment/Plan: trached; mechanically dependent Code(s): J96.10 - CHRONIC RESPIRATORY FAILURE, UNSP W HYPOXIA OR HYPERCAPNIA (3) Diabetes Code(s): E11.9 - TYPE 2 DIABETES MELLITUS WITHOUT COMPLICATIONS (4) Epistaxis Assessment/Plan: No further discharge. F/u Hb (stable ) Code(s): R04.0 - EPISTAXIS (5) Hypothyroid Assessment/Plan: TSH wnl; on Synthroid Code(s): E03.9 - HYPOTHYROIDISM, UNSPECIFIED (6) S/P percutaneous endoscopic gastrostomy (PEG) tube placement Code(s): Z93.1 - GASTROSTOMY STATUS (7) TBI (traumatic brain injury) Code(s): S06.9X9A - UNSP INTRACRANIAL INJURY W LOC OF UNSP DURATION, INIT (8) Tracheostomy dependent Code(s): Z93.0 - TRACHEOSTOMY STATUS (9) Sinus bradycardia Code(s): R00.1 - BRADYCARDIA, UNSPECIFIED (10) PAF (paroxysmal atrial fibrillation) Code(s): I48.0 - PAROXYSMAL ATRIAL FIBRILLATION (11) Hypokalemia Code(s): E87.6 - HYPOKALEMIA
--- NOTE | 2018-02-05 13:02 | PN ---
Progress Note, Physician History of Present Illness: Was informed last evening that the replacement G-tube got dislodged. A Childs was inserted within an hour of the dislodgment. The patient appears clinically the same. PEG site/track are intact. The Childs was removed and a replaced this am with a replacement G-tube without difficulties, or immediate complications. Gastrografin study was ordered. The G-tube will not be used until its position is confirmed. Discussed with the patient's nurse. - Current Medication List Current Medications: Active Medications Baclofen (Lioresal -) 10 mg GT TID [facility] Last Admin: 02/05/18 05:29 Dose: Not Given Furosemide (Lasix Injection -) 40 mg IVPUSH BID@0600,1400 [facility] Last Admin: 02/05/18 05:44 Dose: 40 mg Ertapenem 0.5 gm/ Sodium (Chloride) 50 mls @ 100 mls/hr IVPB DAILY@2200 [facility]; Protocol Last Admin: 02/04/18 23:57 Dose: 100 mls/hr Dextrose/Sodium Chloride (D5-Ns -) 1,000 mls @ 42 mls/hr IV ASDIR [facility] Last Admin: 02/04/18 20:30 Dose: 42 mls/hr Insulin Aspart (Novolog Vial Sliding Scale -) 1 vial SQ Q6HPO [facility]; Protocol Last Admin: 02/05/18 06:42 Dose: Not Given Levothyroxine Sodium (Synthroid -) 37.5 mcg PEG DAILY@0700 [facility] Last Admin: 02/05/18 06:25 Dose: Not Given Mupirocin (Bactroban 2% Ointment -) 1 applic TP BID [facility] Last Admin: 02/04/18 23:51 Dose: 1 applic Probiotis ( Pt's Own Med) 1 each PO DAILY [facility] Last Admin: 02/04/18 09:56 Dose: Not Given Oxybutynin Chloride (Ditropan -) 5 mg NGT BID [facility] Last Admin: 02/04/18 22:11 Dose: Not Given Potassium Chloride (Potassium Chloride Oral Liquid) 60 meq PO DAILY [facility] Last Admin: 02/04/18 10:01 Dose: Not Given Sertraline HCl (Zoloft -) 25 mg NR DAILY [facility] Last Admin: 02/04/18 10:01 Dose: Not Given Sodium Chloride ([place] Nasal [place] -) 2 spray NS TID [facility] Last Admin: 02/05/18 05:45 Dose: 2 spray - Objective Vital Signs: Vital Signs Temperature 97.8 F 02/05/18 10:00 Pulse Rate 59 L 02/05/18 10:00 Respiratory Rate 14 02/05/18 11:33 Blood Pressure 130/59 02/05/18 10:00 O2 Sat by Pulse Oximetry (%) 97 02/05/18 11:33 Labs: CBC, BMP 02/05/18 09:20 02/05/18 09:20 INR, PTT INR 1.10 (0.82-1.09) 01/21/18 15:00 Problem List - Problems (1) Hemorrhage from tracheostomy stoma Code(s): J95.01 - HEMORRHAGE FROM TRACHEOSTOMY STOMA (2) Acute on chronic diastolic CHF (congestive heart failure) Code(s): I50.33 - ACUTE ON CHRONIC DIASTOLIC (CONGESTIVE) HEART FAILURE (3) Chronic respiratory failure Code(s): J96.10 - CHRONIC RESPIRATORY FAILURE, UNSP W HYPOXIA OR HYPERCAPNIA (4) Diabetes Code(s): E11.9 - TYPE 2 DIABETES MELLITUS WITHOUT COMPLICATIONS (5) Epistaxis Code(s): R04.0 - EPISTAXIS (6) Abnormal liver enzymes Code(s): R74.8 - ABNORMAL LEVELS OF OTHER SERUM ENZYMES (7) Cholestasis, intrahepatic Code(s): K76.89 - OTHER SPECIFIED DISEASES OF LIVER
--- NOTE | 2018-02-05 14:10 | PN ---
Progress Note, Physician History of Present Illness: pulmonary poorly responsive on vent support ac mode - Current Medication List Current Medications: Active Medications Baclofen (Lioresal -) 10 mg GT TID [facility] Last Admin: 02/05/18 05:29 Dose: Not Given Furosemide (Lasix Injection -) 40 mg IVPUSH BID@0600,1400 [facility] Last Admin: 02/05/18 05:44 Dose: 40 mg Ertapenem 0.5 gm/ Sodium (Chloride) 50 mls @ 100 mls/hr IVPB DAILY@2200 [facility]; Protocol Last Admin: 02/04/18 23:57 Dose: 100 mls/hr Dextrose/Sodium Chloride (D5-Ns -) 1,000 mls @ 42 mls/hr IV ASDIR [facility] Last Admin: 02/04/18 20:30 Dose: 42 mls/hr Insulin Aspart (Novolog Vial Sliding Scale -) 1 vial SQ Q6HPO [facility]; Protocol Last Admin: 02/05/18 12:57 Dose: Not Given Levothyroxine Sodium (Synthroid -) 37.5 mcg PEG DAILY@0700 [facility] Last Admin: 02/05/18 06:25 Dose: Not Given Mupirocin (Bactroban 2% Ointment -) 1 applic TP BID [facility] Last Admin: 02/04/18 23:51 Dose: [address]Formulated [place] ( Pt's Own Med) 1 each PO DAILY [facility] Last Admin: 02/04/18 09:56 Dose: Not Given Oxybutynin Chloride (Ditropan -) 5 mg NGT BID [facility] Last Admin: 02/04/18 22:11 Dose: Not Given Potassium Chloride (Potassium Chloride Oral Liquid) 60 meq PO DAILY [facility] Last Admin: 02/04/18 10:01 Dose: Not Given Sertraline HCl (Zoloft -) 25 mg NR DAILY [facility] Last Admin: 02/04/18 10:01 Dose: Not Given Sodium Chloride ([place] Nasal [place] -) 2 spray NS TID [facility] Last Admin: 02/05/18 05:45 Dose: 2 spray - Objective Vital Signs: Vital Signs Temperature 97.8 F 02/05/18 10:00 Pulse Rate 59 L 02/05/18 10:00 Respiratory Rate 14 02/05/18 11:33 Blood Pressure 130/59 02/05/18 10:00 O2 Sat by Pulse Oximetry (%) 97 02/05/18 11:33 Constitutional: Yes: Well Nourished, Other (porly responsive) Eyes: Yes: WNL HENT: Yes: WNL Neck: Yes: Supple (trach) Cardiovascular: Yes: Pulse Irregular, S1, S2 Respiratory: Yes: Rhonchi (few rhonchi) Gastrointestinal: Yes: Normal Bowel Sounds, Soft Extremities: Yes: WNL Edema: No Labs: CBC, BMP 02/05/18 09:20 02/05/18 09:20 INR, PTT INR 1.10 (0.82-1.09) 01/21/18 15:00 Problem List - Problems (1) A-fib Code(s): I48.91 - UNSPECIFIED ATRIAL FIBRILLATION (2) Acute on chronic diastolic CHF (congestive heart failure) Code(s): I50.33 - ACUTE ON CHRONIC DIASTOLIC (CONGESTIVE) HEART FAILURE (3) Chronic respiratory failure Code(s): J96.10 - CHRONIC RESPIRATORY FAILURE, UNSP W HYPOXIA OR HYPERCAPNIA (4) Diabetes Code(s): E11.9 - TYPE 2 DIABETES MELLITUS WITHOUT COMPLICATIONS (5) Epistaxis Code(s): R04.0 - EPISTAXIS (6) Hemoptysis Code(s): R04.2 - HEMOPTYSIS (7) TBI (traumatic brain injury) Code(s): S06.9X9A - UNSP INTRACRANIAL INJURY W LOC OF UNSP DURATION, INIT (8) Tracheostomy dependent Code(s): Z93.0 - TRACHEOSTOMY STATUS Assessment/Plan A/P Chronic Respiratory Failure Hemoptysis resolved Acute Blood Loss Anemia Acute Kidney Injury Atrial Fibrillation DM CHF h/o Traumatic Brain Injury - monitor H/H - transfuse as needed - abx as per id - lasix - monitor urine output, creatinine - O2 to keep SpO2 >90% - continue volume assist control - DVT/GI prophylaxis DR FORMAN
--- NOTE | 2018-02-05 15:26 | PN ---
Progress Note, Physician History of Present Illness: on vent doing poorly occasional eye opening - Current Medication List Current Medications: Active Medications Baclofen (Lioresal -) 10 mg GT TID [facility] Last Admin: 02/05/18 05:29 Dose: Not Given Furosemide (Lasix Injection -) 40 mg IVPUSH BID@0600,1400 [facility] Last Admin: 02/05/18 05:44 Dose: 40 mg Ertapenem 0.5 gm/ Sodium (Chloride) 50 mls @ 100 mls/hr IVPB DAILY@2200 [facility]; Protocol Last Admin: 02/04/18 23:57 Dose: 100 mls/hr Dextrose/Sodium Chloride (D5-Ns -) 1,000 mls @ 42 mls/hr IV ASDIR [facility] Last Admin: 02/04/18 20:30 Dose: 42 mls/hr Insulin Aspart (Novolog Vial Sliding Scale -) 1 vial SQ Q6HPO [facility]; Protocol Last Admin: 02/05/18 12:57 Dose: Not Given Levothyroxine Sodium (Synthroid -) 37.5 mcg PEG DAILY@0700 [facility] Last Admin: 02/05/18 06:25 Dose: Not Given Mupirocin (Bactroban 2% Ointment -) 1 applic TP BID [facility] Last Admin: 02/04/18 23:51 Dose: 1 applic Probiotis ( Pt's Own Med) 1 each PO DAILY [facility] Last Admin: 02/04/18 09:56 Dose: Not Given Oxybutynin Chloride (Ditropan -) 5 mg NGT BID [facility] Last Admin: 02/04/18 22:11 Dose: Not Given Potassium Chloride (Potassium Chloride Oral Liquid) 60 meq PO DAILY [facility] Last Admin: 02/04/18 10:01 Dose: Not Given Sertraline HCl (Zoloft -) 25 mg NR DAILY [facility] Last Admin: 02/04/18 10:01 Dose: Not Given Sodium Chloride ([place] Nasal [place] -) 2 spray NS TID [facility] Last Admin: 02/05/18 05:45 Dose: 2 spray - Objective Vital Signs: Vital Signs Temperature 98.0 F 02/05/18 14:19 Pulse Rate 114 H 02/05/18 14:19 Respiratory Rate 14 02/05/18 14:25 Blood Pressure 146/67 02/05/18 14:19 O2 Sat by Pulse Oximetry (%) 97 02/05/18 11:33 Constitutional: Yes: Other Neck: Yes: Other Cardiovascular: Yes: S1, S2 Gastrointestinal: Yes: Normal Bowel Sounds, Soft, Other (peg in place) Musculoskeletal: Yes: Other Neurological: Yes: Other Labs: CBC, BMP 02/05/18 09:20 02/05/18 09:20 INR, PTT INR 1.10 (0.82-1.09) 01/21/18 15:00 Assessment/Plan 87yo M with 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 He was found to have bright red bloody secretions suctioned from tracheostomy site.and now found to have esbl uti uti ac blood loos anemia Acute CHF Exacerbation S/p Tracheostomy Afib CKD DM2 Hypothyroidism plan continue current mgmt finish abx course nutrition rest as per the team
--- NOTE | 2018-02-05 16:32 | PN ---
Progress Note (short form) - Note Progress Note: Renal follow up for KATERIN on CKD Pt seen and examined at the bedside awake on vent G-tube not functioning overnight Vital Signs Temperature 98.0 F 02/05/18 14:19 Pulse Rate 114 H 02/05/18 14:19 Respiratory Rate 14 02/05/18 14:25 Blood Pressure 146/67 02/05/18 14:19 O2 Sat by Pulse Oximetry (%) 97 02/05/18 11:33 Intake & Output 02/02/18 02/03/18 02/04/18 02/05/18 23:59 23:59 23:59 23:59 Intake Total 1511.5 2153.5 225 Output Total 1600 1900 1500 Balance -88.5 253.5 -1275 Weight 71.849 kg 70.942 kg 70.579 kg 68.05 kg NAD on Vent No JVD RRR, No M/R Course BS trace sacral edema CBC, BMP 02/05/18 09:20 02/05/18 09:20 Current Medications Baclofen (Lioresal -) 10 mg GT TID [facility] Last Admin: 02/05/18 05:29 Dose: Not Given Furosemide (Lasix Injection -) 40 mg IVPUSH BID@0600,1400 [facility] Last Admin: 02/05/18 15:07 Dose: 40 mg Ertapenem 0.5 gm/ Sodium (Chloride) 50 mls @ 100 mls/hr IVPB DAILY@2200 [facility]; Protocol Last Admin: 02/04/18 23:57 Dose: 100 mls/hr Insulin Aspart (Novolog Vial Sliding Scale -) 1 vial SQ Q6HPO [facility]; Protocol Last Admin: 02/05/18 12:57 Dose: Not Given Levothyroxine Sodium (Synthroid -) 37.5 mcg PEG DAILY@0700 [facility] Last Admin: 02/05/18 06:25 Dose: Not Given Mupirocin (Bactroban 2% Ointment -) 1 applic TP BID [facility] Last Admin: 02/04/18 23:51 Dose: [address]Formulated [place] ( Pt's Own Med) 1 each PO DAILY [facility] Last Admin: 02/04/18 09:56 Dose: Not Given Oxybutynin Chloride (Ditropan -) 5 mg NGT BID [facility] Last Admin: 05/31/18 22:11 Dose: Not Given Potassium Chloride (Potassium Chloride Oral Liquid) 60 meq PO DAILY [facility] Last Admin: 02/04/18 10:01 Dose: Not Given Sertraline HCl (Zoloft -) 25 mg NR DAILY [facility] Last Admin: 02/04/18 10:01 Dose: Not Given Sodium Chloride ([place] Nasal [place] -) 2 spray NS TID [facility] Last Admin: 02/05/18 15:10 Dose: 2 spray 87 year old gentleman with PMhx of Traumatic brain injury now vented via trach with PEG, DM, CKD, CHF, Afib who presented with bright red blood from ET suctioning and found have acute anemia and Cr of 2. #KATERIN/CKD #Bleeding from ET tube #B/L Pleural effusions #Acute on Chronic Anemia #Hypernatremia #Proteinuria #Possible UTI #Hypokalemia Renal function stable continue IV Lasix BID with daily KCL can convert to oral lasix on discharge Trend BUN/Cr and electrolytes Frank Ayoub DO
--- NOTE | 2018-02-05 16:32 | PN ---
Physical Exam: SUBJECTIVE: Patient seen and examined at the bedside. G tube replaced OBJECTIVE: Vital Signs Period Temp Pulse Resp BP Sys/Wills Pulse Ox Last 24 Hr 97.3 F-98.5 F 46-114 14-16 114-146/55-67 97-97 GENERAL: The patient is awake, alert, non verbal at baseline HEAD: Normal with no signs of trauma. EYES: PERRL, extraocular movements intact, sclera anicteric, conjunctiva clear. No ptosis. ENT: Ears normal, nares patent, oropharynx clear without exudates, moist mucous membranes. NECK: trach tube, no further hemoptysis LUNGS: Breath sounds equal, clear to auscultation anteriorly HEART: Regular rate and rhythm ABDOMEN: new + peg tube placed by GI again today NEUROLOGICAL: Non verbal at baseline PSYCH: Normal mood, normal affect. SKIN: Warm, dry, normal turgor, no rashes or lesions noted Laboratory Results - last 24 hr 02/04/18 02/04/18 02/05/18 17:30 23:48 06:39 WBC RBC Hgb Hct MCV MCH MCHC RDW Plt Count MPV Neutrophils % Lymphocytes % Monocytes % Eosinophils % Basophils % Nucleated RBC % Sodium Potassium Chloride Carbon Dioxide Anion Gap BUN Creatinine Creat Clearance w eGFR POC Glucometer 148 170 162 Random Glucose Calcium Magnesium Total Bilirubin AST ALT Alkaline Phosphatase Total Protein Albumin 02/05/18 02/05/18 02/05/18 09:20 09:20 13:47 WBC 4.8 RBC 3.01 L Hgb 8.1 L Hct 24.6 L MCV 81.6 MCH 26.9 MCHC 33.0 RDW 22.7 H Plt Count 143 MPV 10.0 Neutrophils % 63.2 Lymphocytes % 26.6 Monocytes % 8.4 Eosinophils % 1.3 Basophils % 0.5 Nucleated RBC % 0 Sodium 145 Potassium 3.5 Chloride 110 H Carbon Dioxide 27 Anion Gap 8 BUN 76 H Creatinine 1.9 H Creat Clearance w eGFR 33.86 POC Glucometer 186 Random Glucose 151 H Calcium 8.3 L Magnesium 2.1 Total Bilirubin 0.4 AST 53 H D ALT 92 H D Alkaline Phosphatase 109 Total Protein 6.4 Albumin 2.2 L Active Medications Generic Name Dose Route Start Last Admin Trade Name Freq PRN Reason Stop Dose Admin Baclofen 10 mg 01/22/18 22:00 02/05/18 05:29 Lioresal - GT Not Given TID [facility] Furosemide 40 mg 02/04/18 06:00 02/05/18 15:07 Lasix Injection - IVPUSH 40 mg BID@0600,1400 [facility] Administration Ertapenem 0.5 gm/ Sodium 50 mls @ 100 mls/hr 01/31/18 22:00 02/04/18 23:57 Chloride IVPB 100 mls/hr DAILY@2200 [facility] Administration Protocol Insulin Aspart 1 vial 01/25/18 18:00 02/05/18 12:57 Novolog Vial Sliding Scale - SQ Not Given Q6HPO [facility] Protocol Levothyroxine Sodium 37.5 mcg 01/23/18 07:00 02/05/18 06:25 Synthroid - PEG Not Given DAILY@0700 [facility] Mupirocin 1 applic 01/29/18 14:00 02/04/18 23:51 Bactroban 2% Ointment - TP 1 applic BID [facility] Administration Formulated 1 each 02/01/18 11:30 02/04/18 09:56 Probiotis (Nf Pt's PO Not Given Own Med) DAILY [facility] Oxybutynin Chloride 5 mg 01/22/18 22:00 02/04/18 22:11 Ditropan - NGT Not Given BID [facility] Potassium Chloride 60 meq 01/30/18 06:00 02/04/18 10:01 Potassium Chloride Oral Liquid PO Not Given DAILY [facility] Sertraline HCl 25 mg 01/23/18 10:00 02/04/18 10:01 Zoloft - NR Not Given DAILY [facility] Sodium Chloride 2 spray 01/26/18 22:00 02/05/18 15:10 [place] Nasal [place] - NS 2 spray TID [facility] Administration ASSESSMENT/PLAN: Patient is an 87 year old male with a significant past medical history of traumatic fall in 2017 requiring neck and back surgery with trach placement, atrial fibrillation, anemia, aspiration pneumonia s/p trach placement 08/2017 with vent dependence, RUE DVT, CHF, diabetes mellitus, TBI, legal blindness. He was brought into the ED on 01/21/[facility] for blood clots around tracheostomy site. He was found to have Esbl UTI and was started on meropenem by ID. Imaging: CTAP: (1) No evidence of fluid within the pelvis. At least moderate sized bilateral pleural effusions with bilateral lower lobe compressive atelectasis, small volume of right periphatic free fluid and diffuse body well edema. Please correlate clinically with dedicated imaging of the chest (2) Short segment wall thickening versus underdistension of the sigmoid colon. (3) chronic calcific pancreatitis (4) indeterminate 1.5 cm right adrenal gland nodule could be an adenoma. ID: [id number] UTI: On Meropenem (dose #13), will need 14 doses as per ID Meropenem started on 01/24 No fevers, no leukocytosis Repeat UC negative Pulm: Hemoptysis, resolved No bleeding around trach site GI: Transaminitis CTAP reviewed, liver enzymes mildly elevated but trending down Hepatic congestion Continue to trend GI following, notes reviewed Diarrhea: Negative for cdiff Restart feeds Heme: Acute blood loss anemia s/p 1 unit of prbc on 01/21 with venofer Transfuse if hmg <8 due to cardiac disease hmg/hct stable Pulm: Chronic respiratory failure, trach dependence Renal: KATERIN on CKD Creat trending down : Urinary retention, resolved CV: Acute on chronic diastolic heart failure On Lasix BID Prox, atril fib No anticoags 2/2 to anemia Rate controlled Endocrine: Diabetes, chronic On SS Hypothyroidism, chronic On Synthroid Functional quadraplegia Turn and position q2, protect bony prominences F.E.N. Fluids: None Electrolytes: Monitor Nutrition: Nepro with goal rate of 50 Prophy: DVT: scds GI: Protonix Disposition: full code. Visit type - Emergency Visit Emergency Visit: Yes ED Registration Date: 01/21/18 Care time: The patient presented to the Emergency Department on the above date and was hospitalized for further evaluation of their emergent condition. - New Patient This patient is new to me today: No - Critical Care Critical Care patient: No - Discharge Referral Referred to [facility] No
[2018-02-05 16:51] VITALS: BMI 23.5
[2018-02-05] MEDS ORDERED: DEXTROSE 5%-NORMAL SALINE 1,000 ML IV SCH (21:00)
[2018-02-05] MEDS ORDERED: PT OWN MED DRAWER 7, Y5N ONE ×2 (21:38→22:57)
[2018-02-05] MEDS: ERTAPENEM SODIUM 0.5 GM in SODIUM CHLORIDE 50 ML IVPB SCH (21:42)
[2018-02-06] MEDS: BACLOFEN 10 MG TABLET (FP) GT SCH ×3 (06:39→21:51)
[2018-02-06] MEDS: FUROSEMIDE 40 MG/4 ML INJECTABLE VIAL IVPUSH SCH ×2 (06:39→13:22)
[2018-02-06] MEDS: INSULIN SLIDING SCALE (NOVOLOG) 1 VIAL SQ SCH ×4 (06:39→23:31)
[2018-02-06] MEDS: SODIUM CHLORIDE NASAL SPRAY 44 ML BOTTLE NS SCH ×3 (06:40→22:21)
[2018-02-06] MEDS: LEVOTHYROXINE NA 25 MCG TABLET (FP) PEG SCH (06:41)
[2018-02-06 08:07] LABS: BASO % 0.6 % (0-2.0); EOS % 0.9 % (0-4.5); HEMATOCRIT 26.1 % (35.4-49); HEMOGLOBIN 8.6 GM/dL (11.7-16.9); LYMPH % 29.9 % (8-40); MCH 26.8 pg (25.7-33.7); MCHC 32.7 g/dl (32.0-35.9); MEAN CELL VOLUME 81.9 fl (80-96); MEAN PLT VOLUME 9.6 fl (7.5-11.1); MONO % 7.6 % (3.8-10.2); PLATELET COUNT 153 K/MM3 (134-434); RBC 3.19 M/mm3 (4.00-5.60); RDW 22.4 % (11.9-15.9); WHITE BLOOD COUNT 4.1 K/mm3 (4.0-10.0)
--- NOTE | 2018-02-06 09:17 | PN ---
Progress Note, Physician History of Present Illness: pulmonary awake,not responsive on vent support ac mode - Current Medication List Current Medications: Active Medications Baclofen (Lioresal -) 10 mg GT TID [facility] Last Admin: 02/06/18 06:39 Dose: Not Given Furosemide (Lasix Injection -) 40 mg IVPUSH BID@0600,1400 [facility] Last Admin: 02/06/18 06:39 Dose: 40 mg Ertapenem 0.5 gm/ Sodium (Chloride) 50 mls @ 100 mls/hr IVPB DAILY@2200 [facility]; Protocol Last Admin: 02/05/18 21:42 Dose: 100 mls/hr Dextrose/Sodium Chloride (D5-Ns -) 1,000 mls @ 42 mls/hr IV ASDIR [facility] Last Admin: 02/05/18 20:57 Dose: 42 mls/hr Insulin Aspart (Novolog Vial Sliding Scale -) 1 vial SQ Q6HPO [facility]; Protocol Last Admin: 02/06/18 06:39 Dose: 2 units Levothyroxine Sodium (Synthroid -) 37.5 mcg PEG DAILY@0700 [facility] Last Admin: 02/06/18 06:41 Dose: Not Given Mupirocin (Bactroban 2% Ointment -) 1 applic TP BID [facility] Last Admin: 02/05/18 21:41 Dose: [address]Formulated [place] ( Pt's Own Med) 1 each PO DAILY [facility] Last Admin: 02/05/18 11:37 Dose: Not Given Oxybutynin Chloride (Ditropan -) 5 mg NGT BID [facility] Last Admin: 02/05/18 21:42 Dose: Not Given Potassium Chloride (Potassium Chloride Oral Liquid) 60 meq PO DAILY [facility] Last Admin: 02/05/18 11:37 Dose: Not Given Sertraline HCl (Zoloft -) 25 mg NR DAILY [facility] Last Admin: 02/05/18 11:37 Dose: Not Given Sodium Chloride ([place] Nasal [place] -) 2 spray NS TID [facility] Last Admin: 02/06/18 06:40 Dose: 2 spray - Objective Vital Signs: Vital Signs Temperature 98.8 F 02/06/18 05:00 Pulse Rate 51 L 02/06/18 08:32 Respiratory Rate 14 02/06/18 08:32 Blood Pressure 138/57 02/06/18 05:00 O2 Sat by Pulse Oximetry (%) 97 02/06/18 08:32 Constitutional: Yes: Well Nourished, Calm Eyes: Yes: WNL HENT: Yes: WNL Neck: Yes: Supple (trach) Cardiovascular: Yes: Regular Rate and Rhythm, S1, S2 Respiratory: Yes: Rhonchi (few rhonchi) Gastrointestinal: Yes: Normal Bowel Sounds, Soft Extremities: Yes: WNL Edema: No Labs: CBC, BMP 02/06/18 07:00 Problem List - Problems (1) A-fib Code(s): I48.91 - UNSPECIFIED ATRIAL FIBRILLATION (2) Acute on chronic diastolic CHF (congestive heart failure) Code(s): I50.33 - ACUTE ON CHRONIC DIASTOLIC (CONGESTIVE) HEART FAILURE (3) Chronic respiratory failure Code(s): J96.10 - CHRONIC RESPIRATORY FAILURE, UNSP W HYPOXIA OR HYPERCAPNIA (4) Diabetes Code(s): E11.9 - TYPE 2 DIABETES MELLITUS WITHOUT COMPLICATIONS (5) Epistaxis Code(s): R04.0 - EPISTAXIS (6) Hemoptysis Code(s): R04.2 - HEMOPTYSIS (7) TBI (traumatic brain injury) Code(s): S06.9X9A - UNSP INTRACRANIAL INJURY W LOC OF UNSP DURATION, INIT (8) Tracheostomy dependent Code(s): Z93.0 - TRACHEOSTOMY STATUS Assessment/Plan A/P Chronic Respiratory Failure Hemoptysis resolved Acute Blood Loss Anemia Acute Kidney Injury Atrial Fibrillation DM CHF h/o Traumatic Brain Injury - monitor H/H - transfuse as needed - abx as per id - lasix - monitor urine output, creatinine - O2 to keep SpO2 >90% - continue volume assist control - DVT/GI prophylaxis DR FORMAN
[2018-02-06] MEDS: POTASSIUM CHLORIDE ORAL LIQUID 20 MEQ/15 ML PO SCH (10:00)
[2018-02-06] MEDS: MUPIROCIN 2% TOPICAL OINTMENT 22 GM TUBE TP SCH ×2 (10:00→21:52)
[2018-02-06 10:39] LABS: ALBUMIN 2.3 g/dl (3.4-5.0); ANION GAP 9 (8-16); BLOOD UREA NITROGEN 67 mg/dL (7-18); CALCIUM 7.9 mg/dL (8.5-10.1); CHLORIDE 111 mmol/L (98-107); CO2 26 mmol/L (21-32); CREATININE 1.8 mg/dL (0.7-1.3); GLUCOSE,RANDOM 149 mg/dL (74-106); MAGNESIUM 2.2 mg/dL (1.8-2.4); PHOSPHOROUS 4.2 mg/dL (2.5-4.9); POTASSIUM 3.2 mmol/L (3.5-5.1); SGOT/AST 43 U/L (15-37); SGPT/ALT 76 U/L (12-78); SODIUM 146 mmol/L (136-145)
[2018-02-06 10:41] LABS: ALK PHOS 110 U/L (45-117); BILIRUBIN,TOTAL 0.5 mg/dL (0.2-1.0); TOT PROT 6.7 g/dl (6.4-8.2)
--- NOTE | 2018-02-06 12:59 | PN ---
Progress Note, Physician History of Present Illness: Pt is afebrile, noncommunicative. No further hemoptysis noted. MV on vent. Pt family at bedside. - Current Medication List Current Medications: Active Medications Baclofen (Lioresal -) 10 mg GT TID [facility] Last Admin: 02/06/18 06:39 Dose: Not Given Furosemide (Lasix Injection -) 40 mg IVPUSH BID@0600,1400 [facility] Last Admin: 02/06/18 06:39 Dose: 40 mg Ertapenem 0.5 gm/ Sodium (Chloride) 50 mls @ 100 mls/hr IVPB DAILY@2200 [facility]; Protocol Last Admin: 02/05/18 21:42 Dose: 100 mls/hr Dextrose/Sodium Chloride (D5-Ns -) 1,000 mls @ 42 mls/hr IV ASDIR [facility] Last Admin: 02/05/18 20:57 Dose: 42 mls/hr Potassium Chloride 10 meq/ (Sodium Chloride) 105 mls @ 100 mls/hr IVPB Q60M [facility] Stop: 02/06/18 14:29 Insulin Aspart (Novolog Vial Sliding Scale -) 1 vial SQ Q6HPO [facility]; Protocol Last Admin: 02/06/18 12:28 Dose: 2 units Levothyroxine Sodium (Synthroid -) 37.5 mcg PEG DAILY@0700 [facility] Last Admin: 02/06/18 06:41 Dose: Not Given Mupirocin (Bactroban 2% Ointment -) 1 applic TP BID [facility] Last Admin: 02/05/18 21:41 Dose: [address]Formulated [place] ([place]f Pt's Own Med) 1 each PO DAILY [facility] Last Admin: 02/05/18 11:37 Dose: Not Given Oxybutynin Chloride (Ditropan -) 5 mg NGT BID [facility] Last Admin: 02/05/18 21:42 Dose: Not Given Potassium Chloride (Potassium Chloride Oral Liquid) 60 meq PO DAILY [facility] Last Admin: 02/05/18 11:37 Dose: Not Given Sertraline HCl (Zoloft -) 25 mg NR DAILY [facility] Last Admin: 02/05/18 11:37 Dose: Not Given Sodium Chloride ([place] Nasal [place] -) 2 spray NS TID [facility] Last Admin: 02/06/18 06:40 Dose: 2 spray - Objective Vital Signs: Vital Signs Temperature 98.8 F 02/06/18 05:00 Pulse Rate 51 L 02/06/18 08:32 Respiratory Rate 14 02/06/18 11:17 Blood Pressure 138/57 02/06/18 05:00 O2 Sat by Pulse Oximetry (%) 97 02/06/18 11:18 Constitutional: Yes: No Distress Cardiovascular: Yes: Regular Rate and Rhythm Respiratory: Yes: Regular Gastrointestinal: Yes: Normal Bowel Sounds, Soft, Other (GT) Neurological: Yes: Unresponsive Labs: CBC, BMP 02/06/18 07:00 02/06/18 09:30 INR, PTT INR 1.10 (0.82-1.09) 01/21/18 15:00 Problem List - Problems (1) A-fib Code(s): I48.91 - UNSPECIFIED ATRIAL FIBRILLATION (2) CHF (congestive heart failure) Code(s): I50.9 - HEART FAILURE, UNSPECIFIED (3) Chronic respiratory failure Code(s): J96.10 - CHRONIC RESPIRATORY FAILURE, UNSP W HYPOXIA OR HYPERCAPNIA (4) Diabetes Code(s): E11.9 - TYPE 2 DIABETES MELLITUS WITHOUT COMPLICATIONS (5) PAF (paroxysmal atrial fibrillation) Code(s): I48.0 - PAROXYSMAL ATRIAL FIBRILLATION (6) S/P percutaneous endoscopic gastrostomy (PEG) tube placement Code(s): Z93.1 - GASTROSTOMY STATUS (7) TBI (traumatic brain injury) Code(s): S06.9X9A - UNSP INTRACRANIAL INJURY W LOC OF UNSP DURATION, INIT (8) Tracheostomy dependent Code(s): Z93.0 - TRACHEOSTOMY STATUS Assessment/Plan ESBL+ E coli UTI Traumatic brain injury Chronic resp failure s/p trach s/p GT CHF Hemoptysis- resolved - completes course of Ertapenem today pt afebrile, unresponsive, on MV - GI f/u continue supportive care continue monitor
[2018-02-06] MEDS: POTASSIUM CHLORIDE 10 MEQ in SODIUM CHLORIDE 100 ML IVPB SCH ×2 (13:22→15:35)
--- NOTE | 2018-02-06 14:24 | PN ---
Progress Note (short form) - Note Progress Note: Renal follow up for KATERIN on CKD Pt seen and examined at the bedside family at the bedside g-tube not functioning, got displaced on gentle IVF on Vent, FiO2 is 30% weights improving Vital Signs Temperature 98.8 F 02/06/18 05:00 Pulse Rate 51 L 02/06/18 08:32 Respiratory Rate 14 02/06/18 14:01 Blood Pressure 138/57 02/06/18 05:00 O2 Sat by Pulse Oximetry (%) 97 02/06/18 11:18 Intake & Output 02/03/18 02/04/18 02/05/18 02/06/18 23:59 23:59 23:59 23:59 Intake Total 2153.5 225 50 400 Output Total 1900 1500 Balance 253.5 -1275 50 400 Weight 70.942 kg 70.579 kg 68.05 kg 66.848 kg NAD on Vent No JVD RRR, No M/R Course BS trace sacral edema CBC, BMP 02/06/18 07:00 02/06/18 09:30 Intake & Output 02/03/18 02/04/18 02/05/18 02/06/18 23:59 23:59 23:59 23:59 Intake Total 2153.5 225 50 400 Output Total 1900 1500 Balance 253.5 -1275 50 400 Weight 70.942 kg 70.579 kg 68.05 kg 66.848 kg 87 year old gentleman with PMhx of Traumatic brain injury now vented via trach with PEG, DM, CKD, CHF, Afib who presented with bright red blood from ET suctioning and found have acute anemia and Cr of 2. #KATERIN/CKD #Bleeding from ET tube #B/L Pleural effusions #Acute on Chronic Anemia #Hypernatremia #Proteinuria #Possible UTI #Hypokalemia Renal function gradually improving as well as volume status and weight continue Lasix IV BID Trend BUN/Cr and electrolytes check CXR in AM changed IVF to hypotonic saline given hypernatremia restart free water once tube feeds as re-established will give IV iron for management fo anemia, no indication for blood transfusion continue KCL supplementation to level > 3.5 Frank Ayoub DO
[2018-02-06] MEDS ORDERED: DEXTROSE 5%-0.45% SALINE 1,000 ML IV SCH ×2 (14:30→19:15)
[2018-02-06] MEDS ORDERED: IRON SUCROSE INJECTION 100 MG in SODIUM CHLORIDE 95 ML IVPB ONE (14:45)
[2018-02-06] MEDS: OXYBUTYNIN CHLORIDE 5 MG TABLET NGT SCH ×2 (14:58→21:51)
--- NOTE | 2018-02-06 15:49 | PN ---
Physical Exam: SUBJECTIVE: Patient seen and examined at the bedside. Discussed POC with family at bedside. OBJECTIVE: Patient has received 14 doses of Ertapenem G tube to be replaced by GI Vital Signs Period Temp Pulse Resp BP Sys/Wills Pulse Ox Last 24 Hr 97.8 F-98.8 F 45-51 14-19 127-143/57-60 97-100 GENERAL: The patient is awake, alert, non verbal at baseline HEAD: Normal with no signs of trauma. EYES: PERRL, extraocular movements intact, sclera anicteric, conjunctiva clear. No ptosis. ENT: Ears normal, nares patent, oropharynx clear without exudates, moist mucous membranes. NECK: trach tube, no further hemoptysis LUNGS: Breath sounds equal, clear to auscultation anteriorly HEART: Regular rate and rhythm ABDOMEN: peg tube reported to have fallen out again, ivf ordered overnight to prevent dehydration and hypoglycemia NEUROLOGICAL: Non verbal at baseline PSYCH: Normal mood, normal affect. SKIN: Warm, dry, normal turgor, no rashes or lesions noted Laboratory Results - last 24 hr 02/05/18 02/05/18 02/06/18 18:41 23:24 06:05 WBC RBC Hgb Hct MCV MCH MCHC RDW Plt Count MPV Neutrophils % Lymphocytes % Monocytes % Eosinophils % Basophils % Nucleated RBC % Sodium Potassium Chloride Carbon Dioxide Anion Gap BUN Creatinine Creat Clearance w eGFR POC Glucometer 190 177 177 Random Glucose Calcium Phosphorus Magnesium Total Bilirubin AST ALT Alkaline Phosphatase Total Protein Albumin 02/06/18 02/06/18 02/06/18 07:00 09:30 12:25 WBC 4.1 RBC 3.19 L Hgb 8.6 L Hct 26.1 L MCV 81.9 MCH 26.8 MCHC 32.7 RDW 22.4 H Plt Count 153 MPV 9.6 Neutrophils % 61.0 Lymphocytes % 29.9 Monocytes % 7.6 Eosinophils % 0.9 Basophils % 0.6 Nucleated RBC % 0 Sodium 146 H Potassium 3.2 L Chloride 111 H Carbon Dioxide 26 Anion Gap 9 BUN 67 H Creatinine 1.8 H Creat Clearance w eGFR 36.04 POC Glucometer 179 Random Glucose 149 H Calcium 7.9 L Phosphorus 4.2 Magnesium 2.2 Total Bilirubin 0.5 D AST 43 H ALT 76 Alkaline Phosphatase 110 Total Protein 6.7 Albumin 2.3 L Active Medications Generic Name Dose Route Start Last Admin Trade Name Freq PRN Reason Stop Dose Admin Baclofen 10 mg 01/22/18 22:00 02/06/18 06:39 Lioresal - GT Not Given TID [facility] Furosemide 40 mg 02/04/18 06:00 02/06/18 13:22 Lasix Injection - IVPUSH 40 mg BID@0600,1400 [facility] Administration Ertapenem 0.5 gm/ Sodium 50 mls @ 100 mls/hr 01/31/18 22:00 02/05/18 21:42 Chloride IVPB 100 mls/hr DAILY@2200 [facility] Administration Protocol Dextrose/Sodium Chloride 1,000 mls @ 42 mls/hr 02/06/18 14:30 02/06/18 15:35 D5-1/2ns - IV 42 mls/hr ASDIR [facility] Administration Insulin Aspart 1 vial 01/25/18 18:00 02/06/18 12:28 Novolog Vial Sliding Scale - SQ 2 units Q6HPO [facility] Administration Protocol Levothyroxine Sodium 37.5 mcg 01/23/18 07:00 02/06/18 06:41 Synthroid - PEG Not Given DAILY@0700 [facility] Mupirocin 1 applic 01/29/18 14:00 02/06/18 10:00 Bactroban 2% Ointment - TP Not Given BID [facility] Formulated 1 each 02/01/18 11:30 02/05/18 11:37 Probiotis (Nf Pt's PO Not Given Own Med) DAILY [facility] Oxybutynin Chloride 5 mg 01/22/18 22:00 02/06/18 14:58 Ditropan - NGT Not Given BID [facility] Potassium Chloride 60 meq 01/30/18 06:00 02/06/18 10:00 Potassium Chloride Oral Liquid PO Not Given DAILY [facility] Sertraline HCl 25 mg 01/23/18 10:00 02/05/18 11:37 Zoloft - NR Not Given DAILY [facility] Sodium Chloride 2 spray 01/26/18 22:00 02/06/18 15:35 [place] Nasal [place] - NS 2 spray TID [facility] Administration ASSESSMENT/PLAN: Patient is an 87 year old male with a significant past medical history of traumatic fall in 2016 requiring neck and back surgery with trach placement, atrial fibrillation, anemia, aspiration pneumonia s/p trach placement 08/2017 with vent dependence, RUE DVT, CHF, diabetes mellitus, TBI, legal blindness. [facility] for blood clots around tracheostomy site. He was found to have Esbl UTI and was started on meropenem by ID. Imaging: CTAP: (1) No evidence of fluid within the pelvis. At least moderate sized bilateral pleural effusions with bilateral lower lobe compressive atelectasis, small volume of right periphatic free fluid and diffuse body well edema. Please correlate clinically with dedicated imaging of the chest (2) Short segment wall thickening versus underdistension of the sigmoid colon. (3) chronic calcific pancreatitis (4) indeterminate 1.5 cm right adrenal gland nodule could be an adenoma. ID: [id number] UTI: On Meropenem (dose #14), completed dose of Meropenem toay Meropenem started on 01/24 No fevers, no leukocytosis Repeat UC negative Pulm: Hemoptysis, resolved No bleeding around trach site GI: Transaminitis CTAP reviewed, liver enzymes mildly elevated but trending down Hepatic congestion likely Continue to trend GI following, notes reviewed Diarrhea: Negative for cdiff G tube not functioning, again displaced On gentle IVF Heme: Acute blood loss anemia s/p 1 unit of prbc with venofer Transfuse if hmg <8 due to cardiac disease hmg/hct stable Pulm: Chronic respiratory failure, trach dependence Renal: KATERIN on CKD Creat trending down : Urinary retention Voiding well, check bladder scan prn CV: Acute on chronic diastolic heart failure On Lasix BID Prox, atril fib No anticoags 2/2 to anemia Rate controlled Endocrine: Diabetes, chronic On SS Hypothyroidism, chronic On Synthroid Functional quadraplegia Turn and position q2, protect bony prominences F.E.N. Fluids: None Electrolytes: Monitor Nutrition: Nepro with goal rate of 50 Prophy: DVT: scds GI: Protonix Disposition: full code. Visit type - Emergency Visit Emergency Visit: Yes ED Registration Date: 01/21/18 Care time: The patient presented to the Emergency Department on the above date and was hospitalized for further evaluation of their emergent condition. - New Patient This patient is new to me today: No - Critical Care Critical Care patient: No - Discharge Referral Referred to [facility] No
--- NOTE | 2018-02-06 16:53 | PN ---
Progress Note (short form) - Note Progress Note: GI COVERAGE FOR DR STEVAN GROSS CTSP FOIR DISLODGED GT PT HAD A FLEXIFLO REPLACEMENT GT PLACED RECENTLY THAT WAS DISLODGED AND A HATHAWAY 18FR WAS INSERTED TO KEEP LUMINAL PATENCY PT SEEN WITH SON AND FAMILY MEMEBERS AT THE BEDSIDE PT WITH TRACHE/VENT AND NON-RESPONSIVE/ NON-COMMUNICATIVE/ AND NON-MOBILE ABD: OBESE, VERY SOPFT/ NT WITH A HATHAWAY IN GT STOMA SITE LOOKS CLEAN HATHAWAY REMOVED AND AN 18 UZBEK FLEXIFLO GT EASILY PLACED VIA THE STOMA SITE WITHOUT ANY DIFFICULTY AND NO RESISTANCE BALLOON INFLATED UNDER FAMILY VISION IN USUAL FASHION ABLE TO IRRIGATE 20CM OF WATER VIA JULIO SYRINGE ABD VERY SOPFT AND NT RECC: CHECK A KUB VIA GASTROGRAFFIN VIA GT TO ASSURE LOCATION IN STOMACH IF OKAY, RESUME FEEDS IF NOT OKAY, REMOVE GT AND ALLOW SITE TO CLOSE FOR NEW PEG PLACEMENT NEXT WEEK DISCUSSED ENTIRE PLAN WITH FAMILY AND i ANSWERED ALL THE QUESTIONS BEST POSSIBLE THANKS, MD JESSICA
[2018-02-06] MEDS: SERTRALINE HCL 25 MG TABLET (FP) NR SCH (18:00)
[2018-02-06] MEDS ORDERED: PT OWN MED DRAWER 7, Y5N ONE (21:50)
[2018-02-06] MEDS: [UNRECOGNIZED DRUG - OTHER] PO SCH (21:52)
[2018-02-06] MEDS: ERTAPENEM SODIUM 0.5 GM in SODIUM CHLORIDE 50 ML IVPB SCH (21:53)
[2018-02-07] MEDS ORDERED: DEXTROSE 5%-WATER - 1,000 ML IV SCH (04:45)
[2018-02-07] MEDS: INSULIN SLIDING SCALE (NOVOLOG) 1 VIAL SQ SCH ×4 (05:32→23:23)
[2018-02-07] MEDS: FUROSEMIDE 40 MG/4 ML INJECTABLE VIAL IVPUSH SCH ×2 (05:33→13:16)
[2018-02-07] MEDS: SODIUM CHLORIDE NASAL SPRAY 44 ML BOTTLE NS SCH ×3 (05:33→22:33)
[2018-02-07 07:41] LABS: BASO % 0.6 % (0-2.0); EOS % 1.7 % (0-4.5); HEMOGLOBIN 8.4 GM/dL (11.7-16.9); LYMPH % 37.6 % (8-40); MCH 27.5 pg (25.7-33.7); MCHC 33.5 g/dl (32.0-35.9); MEAN CELL VOLUME 82.1 fl (80-96); MEAN PLT VOLUME 9.4 fl (7.5-11.1); MONO % 6.4 % (3.8-10.2); NEUT % 53.7 % (42.8-82.8); PLATELET COUNT 160 K/MM3 (134-434); RBC 3.05 M/mm3 (4.00-5.60); RDW 22.9 % (11.9-15.9); WHITE BLOOD COUNT 3.9 K/mm3 (4.0-10.0)
[2018-02-07] MEDS ORDERED: KCL 10 MEQ IVPB 10 MEQ/100 ML INFUS.BAG IVPB SCH (08:30)
[2018-02-07] MEDS ORDERED: PT OWN MED DRAWER 7, Y5N ONE (08:34)
[2018-02-07] MEDS: BACLOFEN 10 MG TABLET (FP) GT SCH ×3 (08:36→22:33)
[2018-02-07] MEDS: LEVOTHYROXINE NA 25 MCG TABLET (FP) PEG SCH (08:36)
[2018-02-07] MEDS: OXYBUTYNIN CHLORIDE 5 MG TABLET NGT SCH ×2 (08:59→22:33)
[2018-02-07] MEDS: SERTRALINE HCL 25 MG TABLET (FP) NR SCH (08:59)
[2018-02-07] MEDS: MUPIROCIN 2% TOPICAL OINTMENT 22 GM TUBE TP SCH ×2 (08:59→22:33)
[2018-02-07] MEDS: POTASSIUM CHLORIDE ORAL LIQUID 20 MEQ/15 ML PO SCH ×2 (09:16→22:33)
[2018-02-07] MEDS: [UNRECOGNIZED DRUG - OTHER] PO SCH (09:17)
[2018-02-07 09:30] LABS: ALBUMIN 2.3 g/dl (3.4-5.0); ANION GAP 10 (8-16); BILIRUBIN,TOTAL 0.3 mg/dL (0.2-1.0); BLOOD UREA NITROGEN 68 mg/dL (7-18); CHLORIDE 113 mmol/L (98-107); CO2 26 mmol/L (21-32); CREATININE 1.9 mg/dL (0.7-1.3); GLUCOSE,RANDOM 136 mg/dL (74-106); MAGNESIUM 2.2 mg/dL (1.8-2.4); PHOSPHOROUS 4.3 mg/dL (2.5-4.9); POTASSIUM 3.2 mmol/L (3.5-5.1); SGOT/AST 62 U/L (15-37); SGPT/ALT 78 U/L (12-78); SODIUM 149 mmol/L (136-145); TOT PROT 6.5 g/dl (6.4-8.2)
[2018-02-07 09:31] LABS: ALK PHOS 111 U/L (45-117)
--- NOTE | 2018-02-07 09:55 | PN ---
Progress Note (short form) - Note Progress Note: Renal follow up for KATERIN on CKD Pt seen and examined at the bedside no overnight events stable on vent making urine Vital Signs Temperature 97.9 F 02/07/18 06:00 Pulse Rate 50 L 02/07/18 08:18 Respiratory Rate 14 02/07/18 08:18 Blood Pressure 125/56 02/07/18 06:00 O2 Sat by Pulse Oximetry (%) 96 02/07/18 08:18 Intake & Output 02/04/18 02/05/18 02/06/18 02/07/18 23:59 23:59 23:59 23:59 Intake Total 292 81 7380 576 Output Total 1500 Balance -1275 50 1275 576 Weight 70.579 kg 68.05 kg 66.848 kg NAD on Vent No JVD RRR, No M/R Course BS trace sacral edema CBC, BMP 02/07/18 06:45 02/07/18 06:45 Current Medications Baclofen (Lioresal -) 10 mg GT TID [facility] Last Admin: 02/07/18 08:36 Dose: 10 mg Furosemide (Lasix Injection -) 40 mg IVPUSH BID@0600,1400 [facility] Last Admin: 02/07/18 05:33 Dose: 40 mg Potassium Chloride 10 meq/ (Sodium Chloride) 105 mls @ 105 mls/hr IVPB Q1H [facility] Stop: 02/07/18 10:59 Insulin Aspart (Novolog Vial Sliding Scale -) 1 vial SQ Q6HPO [facility]; Protocol Last Admin: 02/07/18 05:32 Dose: Not Given Levothyroxine Sodium (Synthroid -) 37.5 mcg PEG DAILY@0700 [facility] Last Admin: 02/07/18 08:36 Dose: 37.5 mcg Mupirocin (Bactroban 2% Ointment -) 1 applic TP BID [facility] Last Admin: 02/07/18 08:59 Dose: [address]Formulated [place] ( Pt's Own Med) 1 each PO DAILY [facility] Last Admin: 02/07/18 09:17 Dose: 1 each Oxybutynin Chloride (Ditropan -) 5 mg NGT BID [facility] Last Admin: 02/07/18 08:59 Dose: 5 mg Potassium Chloride (Potassium Chloride Oral Liquid) 60 meq PO BID [facility] Sertraline HCl (Zoloft -) 25 mg NR DAILY [facility] Last Admin: 02/07/18 08:59 Dose: 25 mg Sodium Chloride ([place] Nasal [place] -) 2 spray NS TID [facility] Last Admin: 02/07/18 05:33 Dose: 2 spray 87 year old gentleman with PMhx of Traumatic brain injury now vented via trach with PEG, DM, CKD, CHF, Afib who presented with bright red blood from ET suctioning and found have acute anemia and Cr of 2. #KATERIN/CKD #Bleeding from ET tube #B/L Pleural effusions #Acute on Chronic Anemia #Hypernatremia #Proteinuria #Possible UTI #Hypokalemia Renal function stable continue IV Lasix BID, CXR shows improvement continue KCL, will incease to BId restart free water bolous Q6h continue vent support Frank Ayoub DO
[2018-02-07] MEDS: POTASSIUM CHLORIDE 10 MEQ in SODIUM CHLORIDE 100 ML IVPB SCH ×2 (10:23→10:25)
--- NOTE | 2018-02-07 10:30 | PN ---
Physical Exam: SUBJECTIVE: Patient seen and examined at the bedside. Non verbal at baseline. OBJECTIVE: G tube functioning well, no residual Abd xray report reviewed Pt completed 14 days of antibiotics Vital Signs Period Temp Pulse Resp BP Sys/Wills Pulse Ox Last 24 Hr 97.4 F-98.7 F 45-50 14-14 125-140/56-60 96-100 GENERAL: The patient is awake, alert, non verbal at baseline HEAD: Normal with no signs of trauma. EYES: PERRL, extraocular movements intact, sclera anicteric, conjunctiva clear. No ptosis. ENT: Ears normal, nares patent, oropharynx clear without exudates, moist mucous membranes. NECK: trach tube, no further hemoptysis LUNGS: Breath sounds equal, clear to auscultation anteriorly HEART: Regular rate and rhythm, sinus bradycardia ABDOMEN: peg tube replaced on 02/[address] Woodard, tube feeds ongoing, no residual NEUROLOGICAL: Non verbal at baseline PSYCH: Normal mood, normal affect. SKIN: Warm, dry, normal turgor, no rashes or lesions noted Laboratory Results - last 24 hr 02/06/18 02/06/18 02/06/18 09:30 12:25 17:57 WBC RBC Hgb Hct MCV MCH MCHC RDW Plt Count MPV Neutrophils % Lymphocytes % Monocytes % Eosinophils % Basophils % Nucleated RBC % Sodium 146 H Potassium 3.2 L Chloride 111 H Carbon Dioxide 26 Anion Gap 9 BUN 67 H Creatinine 1.8 H Creat Clearance w eGFR 36.04 POC Glucometer 179 122 Random Glucose 149 H Calcium 7.9 L Phosphorus 4.2 Magnesium 2.2 Total Bilirubin 0.5 D AST 43 H ALT 76 Alkaline Phosphatase 110 Total Protein 6.7 Albumin 2.3 L 02/06/18 02/07/18 02/07/18 23:26 05:31 06:45 WBC 3.9 L RBC 3.05 L Hgb 8.4 L Hct 25.0 L MCV 82.1 MCH 27.5 MCHC 33.5 RDW 22.9 H Plt Count 160 MPV 9.4 Neutrophils % 53.7 Lymphocytes % 37.6 D Monocytes % 6.4 Eosinophils % 1.7 D Basophils % 0.6 Nucleated RBC % 0 Sodium Potassium Chloride Carbon Dioxide Anion Gap BUN Creatinine Creat Clearance w eGFR POC Glucometer 168 149 Random Glucose Calcium Phosphorus Magnesium Total Bilirubin AST ALT Alkaline Phosphatase Total Protein Albumin 02/07/18 06:45 WBC RBC Hgb Hct MCV MCH MCHC RDW Plt Count MPV Neutrophils % Lymphocytes % Monocytes % Eosinophils % Basophils % Nucleated RBC % Sodium 149 H Potassium 3.2 L Chloride 113 H Carbon Dioxide 26 Anion Gap 10 BUN 68 H Creatinine 1.9 H Creat Clearance w eGFR 33.86 POC Glucometer Random Glucose 136 H Calcium 8.0 L Phosphorus 4.3 Magnesium 2.2 Total Bilirubin 0.3 D AST 62 H D ALT 78 Alkaline Phosphatase 111 Total Protein 6.5 Albumin 2.3 L Active Medications Generic Name Dose Route Start Last Admin Trade Name Freq PRN Reason Stop Dose Admin Baclofen 10 mg 01/22/18 22:00 02/07/18 08:36 Lioresal - GT 10 mg TID LILIA Administration Furosemide 40 mg 02/04/18 06:00 02/07/18 05:33 Lasix Injection - IVPUSH 40 mg BID@0600,1400 LILIA Administration Insulin Aspart 1 vial 01/25/18 18:00 02/07/18 05:32 Novolog Vial Sliding Scale - SQ Not Given Q6HPO [facility] Protocol Levothyroxine Sodium 37.5 mcg 01/23/18 07:00 02/07/18 08:36 Synthroid - PEG 37.5 mcg DAILY@0700 LILIA Administration Mupirocin 1 applic 01/29/18 14:00 02/07/18 08:59 Bactroban 2% Ointment - TP 1 applic BID LILIA Administration Formulated 1 each 02/01/18 11:30 02/07/18 09:17 Probiotis (Nf Pt's PO 1 each Own Med) DAILY LILIA Administration Oxybutynin Chloride 5 mg 01/22/18 22:00 02/07/18 08:59 Ditropan - NGT 5 mg BID LILIA Administration Potassium Chloride 60 meq 02/07/18 22:00 Potassium Chloride Oral Liquid PO BID LILIA Sertraline HCl 25 mg 01/23/18 10:00 02/07/18 08:59 Zoloft - NR 25 mg DAILY LILIA Administration Sodium Chloride 2 spray 01/26/18 22:00 02/07/18 05:33 [place] Nasal [place] - NS 2 spray TID LILIA Administration ASSESSMENT/PLAN: Patient is an 87 year old male with a significant past medical history of traumatic fall in 2017 requiring neck and back surgery with trach placement, atrial fibrillation, anemia, aspiration pneumonia s/p trach placement 08/2017 with vent dependence, RUE DVT, CHF, diabetes mellitus, TBI, legal blindness. [facility] for blood clots around tracheostomy site. He was found to have Esbl UTI and was started on meropenem by ID. Imaging: CTAP: (1) No evidence of fluid within the pelvis. At least moderate sized bilateral pleural effusions with bilateral lower lobe compressive atelectasis, small volume of right periphatic free fluid and diffuse body well edema. Please correlate clinically with dedicated imaging of the chest (2) Short segment wall thickening versus underdistension of the sigmoid colon. (3) chronic calcific pancreatitis (4) indeterminate 1.5 cm right adrenal gland nodule could be an adenoma. ID: [id number] UTI: On Meropenem (dose #14), completed dose of Meropenem, no fevers, stable. Pulm: Hemoptysis, resolved GI: Transaminitis, resolving. GI following, notes reviewed Diarrhea: Negative for cdiff Gtube dysfunction, g tube replaced. Now functional, received feeds overnight, no residual reported. Heme: Acute blood loss anemia. s/p 1 unit of prbc with venofer. hmg/hct stable Pulm: Chronic respiratory failure, trach dependence - chronic Renal: KATERIN on CKD, Creat trending down : Urinary retention, no significant retention on repeat bladder scan. CV: Acute on chronic diastolic heart failure On Lasix BID, convert to GT on discharge Prox, atril fib, No anticoags 2/2 to anemia Rate controlled Endocrine: Diabetes, chronic, On SS Hypothyroidism, chronic, On Synthroid Functional quadraplegia: Turn and position q2, protect bony prominences F.E.N. Fluids: None Electrolytes: Monitor Nutrition: Nepro with goal rate of 50 Prophy: DVT: scds GI: Protonix Disposition: full code. Discharge pending for tomorrow, likely [place]. Visit type - Emergency Visit Emergency Visit: Yes ED Registration Date: 01/21/18 Care time: The patient presented to the Emergency Department on the above date and was hospitalized for further evaluation of their emergent condition. - New Patient This patient is new to me today: No - Critical Care Critical Care patient: No - Discharge Referral Referred to [facility] No
--- NOTE | 2018-02-07 11:11 | PN ---
Progress Note, Physician History of Present Illness: pulmonary opens eyes,not responsive on vent support ac mode - Current Medication List Current Medications: Active Medications Baclofen (Lioresal -) 10 mg GT TID [facility] Last Admin: 02/07/18 08:36 Dose: 10 mg Furosemide (Lasix Injection -) 40 mg IVPUSH BID@0600,1400 [facility] Last Admin: 02/07/18 05:33 Dose: 40 mg Insulin Aspart (Novolog Vial Sliding Scale -) 1 vial SQ Q6HPO [facility]; Protocol Last Admin: 02/07/18 05:32 Dose: Not Given Levothyroxine Sodium (Synthroid -) 37.5 mcg PEG DAILY@0700 [facility] Last Admin: 02/07/18 08:36 Dose: 37.5 mcg Mupirocin (Bactroban 2% Ointment -) 1 applic TP BID [facility] Last Admin: 02/07/18 08:59 Dose: 1 applic Probiotis (Nf Pt's Own Med) 1 each PO DAILY [facility] Last Admin: 02/07/18 09:17 Dose: 1 each Oxybutynin Chloride (Ditropan -) 5 mg NGT BID [facility] Last Admin: 02/07/18 08:59 Dose: 5 mg Potassium Chloride (Potassium Chloride Oral Liquid) 60 meq PO BID [facility] Sertraline HCl (Zoloft -) 25 mg NR DAILY [facility] Last Admin: 02/07/18 08:59 Dose: 25 mg Sodium Chloride ([place] Nasal [place] -) 2 spray NS TID [facility] Last Admin: 02/07/18 05:33 Dose: 2 spray - Objective Vital Signs: Vital Signs Temperature 97.9 F 02/07/18 06:00 Pulse Rate 50 L 02/07/18 08:18 Respiratory Rate 14 02/07/18 11:05 Blood Pressure 125/56 02/07/18 06:00 O2 Sat by Pulse Oximetry (%) 96 02/07/18 11:06 Constitutional: Yes: Well Nourished, Other (poorly responsive) Eyes: Yes: WNL HENT: Yes: WNL Neck: Yes: Supple (trach) Cardiovascular: Yes: Regular Rate and Rhythm, S1, S2 Respiratory: Yes: Rhonchi (scattered rhonchi) Gastrointestinal: Yes: Normal Bowel Sounds, Soft Extremities: Yes: WNL Edema: No Labs: CBC, BMP 02/07/18 06:45 02/07/18 06:45 INR, PTT INR 1.10 (0.82-1.09) 01/21/18 15:00 Problem List - Problems (1) A-fib Code(s): I48.91 - UNSPECIFIED ATRIAL FIBRILLATION (2) Acute on chronic diastolic CHF (congestive heart failure) Code(s): I50.33 - ACUTE ON CHRONIC DIASTOLIC (CONGESTIVE) HEART FAILURE (3) Chronic respiratory failure Code(s): J96.10 - CHRONIC RESPIRATORY FAILURE, UNSP W HYPOXIA OR HYPERCAPNIA (4) Diabetes Code(s): E11.9 - TYPE 2 DIABETES MELLITUS WITHOUT COMPLICATIONS (5) Epistaxis Code(s): R04.0 - EPISTAXIS (6) Hemoptysis Code(s): R04.2 - HEMOPTYSIS (7) TBI (traumatic brain injury) Code(s): S06.9X9A - UNSP INTRACRANIAL INJURY W LOC OF UNSP DURATION, INIT (8) Tracheostomy dependent Code(s): Z93.0 - TRACHEOSTOMY STATUS Assessment/Plan A/P Chronic Respiratory Failure Hemoptysis resolved Acute Blood Loss Anemia Acute Kidney Injury Atrial Fibrillation DM CHF h/o Traumatic Brain Injury - monitor H/H - transfuse as needed - lasix - monitor urine output, creatinine - O2 to keep SpO2 >90% - continue volume assist control poor candidate for weaning at this time - DVT/GI prophylaxis DR FORMAN
--- NOTE | 2018-02-07 14:34 | PN ---
Progress Note, Physician History of Present Illness: Pt on vent support, noncommunicative. Remains afebrile. GT replaced/ functioning. Remains afebrile off antibiotics. - Current Medication List Current Medications: Active Medications Baclofen (Lioresal -) 10 mg GT TID [facility] Last Admin: 02/07/18 13:16 Dose: 10 mg Furosemide (Lasix Injection -) 40 mg IVPUSH BID@0600,1400 [facility] Last Admin: 02/07/18 13:16 Dose: 40 mg Insulin Aspart (Novolog Vial Sliding Scale -) 1 vial SQ Q6HPO [facility]; Protocol Last Admin: 02/07/18 11:37 Dose: 2 units Levothyroxine Sodium (Synthroid -) 37.5 mcg PEG DAILY@0700 [facility] Last Admin: 02/07/18 08:36 Dose: 37.5 mcg Mupirocin (Bactroban 2% Ointment -) 1 applic TP BID [facility] Last Admin: 02/07/18 08:59 Dose: 1 applic Probiotis (Nf Pt's Own Med) 1 each PO DAILY [facility] Last Admin: 02/07/18 09:17 Dose: 1 each Oxybutynin Chloride (Ditropan -) 5 mg NGT BID [facility] Last Admin: 02/07/18 08:59 Dose: 5 mg Potassium Chloride (Potassium Chloride Oral Liquid) 60 meq PO BID [facility] Sertraline HCl (Zoloft -) 25 mg NR DAILY [facility] Last Admin: 02/07/18 08:59 Dose: 25 mg Sodium Chloride ([place] Nasal [place] -) 2 spray NS TID [facility] Last Admin: 02/07/18 13:16 Dose: 2 spray - Objective Vital Signs: Vital Signs Temperature 97.9 F 02/07/18 06:00 Pulse Rate 52 L 02/07/18 09:00 Respiratory Rate 14 02/07/18 13:56 Blood Pressure 136/60 02/07/18 09:00 O2 Sat by Pulse Oximetry (%) 96 02/07/18 11:06 Constitutional: Yes: No Distress Cardiovascular: Yes: Bradycardia Respiratory: Yes: Regular, Mechanically Ventilated Gastrointestinal: Yes: Normal Bowel Sounds, Soft, Other (+GT) Labs: CBC, BMP 02/07/18 06:45 02/07/18 12:09 INR, PTT INR 1.10 (0.82-1.09) 01/21/18 15:00 Problem List - Problems (1) A-fib Code(s): I48.91 - UNSPECIFIED ATRIAL FIBRILLATION (2) CHF (congestive heart failure) Code(s): I50.9 - HEART FAILURE, UNSPECIFIED (3) Chronic respiratory failure Code(s): J96.10 - CHRONIC RESPIRATORY FAILURE, UNSP W HYPOXIA OR HYPERCAPNIA (4) Diabetes Code(s): E11.9 - TYPE 2 DIABETES MELLITUS WITHOUT COMPLICATIONS (5) PAF (paroxysmal atrial fibrillation) Code(s): I48.0 - PAROXYSMAL ATRIAL FIBRILLATION (6) S/P percutaneous endoscopic gastrostomy (PEG) tube placement Code(s): Z93.1 - GASTROSTOMY STATUS (7) TBI (traumatic brain injury) Code(s): S06.9X9A - UNSP INTRACRANIAL INJURY W LOC OF UNSP DURATION, INIT (8) Tracheostomy dependent Code(s): Z93.0 - TRACHEOSTOMY STATUS Assessment/Plan ESBL+ E coli UTI Traumatic brain injury Chronic resp failure s/p trach s/p GT CHF Hemoptysis- resolved - s/p course of antibiotics - remains afebrile, unresponsive, on MV- AC continue supportive care
--- NOTE | 2018-02-07 20:19 | PN ---
Progress Note (short form) - Note Progress Note: GI F/U NOTE FOR DR GROSS PT SEEN EARLIER ON ROUNDS GT WAS FUNCTIONING WELL AND THERE WAS NO ERYTHEMA/ DISCHARGE OR LEAKAGE SEEN ABD WAS SOFT/ SYMMETRIC WITH GOOD BOWEL SOUNDS INTERNAL BALLOON APPEARS INFLATED UNABLE TO REMOVE GT WITH GENTLE TUG SPOKE WITH RADIOLOGIST LAST EVENING WHO CONFIRMED THAT THE GT REPLACEMENT WAS IN THE STOMACH AND THAT THERE WAS NO CONTRAST EXTRAVASATION NURSING CONFIRMS TODAY THAT THERE HAS BEEN NO RESIDUALS CONTINUE FEEDS/ HOB AT 60 DEGREES / CHECK REDIDUALS AND OBSERVE MD JESSICA
[2018-02-08] MEDS ORDERED: PT OWN MED DRAWER 7, Y5N ONE ×3 (05:28→12:49)
[2018-02-08] MEDS: SODIUM CHLORIDE NASAL SPRAY 44 ML BOTTLE NS SCH ×3 (06:03→21:28)
[2018-02-08] MEDS: LEVOTHYROXINE NA 25 MCG TABLET (FP) PEG SCH (06:03)
[2018-02-08] MEDS: BACLOFEN 10 MG TABLET (FP) GT SCH ×3 (06:03→21:29)
[2018-02-08] MEDS: INSULIN SLIDING SCALE (NOVOLOG) 1 VIAL SQ SCH ×3 (06:03→17:59)
[2018-02-08] MEDS: FUROSEMIDE 40 MG/4 ML INJECTABLE VIAL IVPUSH SCH ×2 (06:04→14:50)
[2018-02-08 08:09] LABS: BASO % 0.5 % (0-2.0); EOS % 1.8 % (0-4.5); HEMATOCRIT 26.1 % (35.4-49); HEMOGLOBIN 8.5 GM/dL (11.7-16.9); LYMPH % 27.3 % (8-40); MCHC 32.5 g/dl (32.0-35.9); MEAN CELL VOLUME 83.1 fl (80-96); MEAN PLT VOLUME 9.6 fl (7.5-11.1); MONO % 5.5 % (3.8-10.2); NEUT % 64.9 % (42.8-82.8); PLATELET COUNT 170 K/MM3 (134-434); RBC 3.14 M/mm3 (4.00-5.60); RDW 22.8 % (11.9-15.9)
[2018-02-08 08:26] LABS: ANION GAP 6 (8-16); BLOOD UREA NITROGEN 67 mg/dL (7-18); CALCIUM 7.9 mg/dL (8.5-10.1); CHLORIDE 111 mmol/L (98-107); CO2 27 mmol/L (21-32); GLUCOSE,RANDOM 161 mg/dL (74-106); MAGNESIUM 2.1 mg/dL (1.8-2.4); PHOSPHOROUS 4.2 mg/dL (2.5-4.9); POTASSIUM 4.5 mmol/L (3.5-5.1); SODIUM 144 mmol/L (136-145)
--- NOTE | 2018-02-08 09:50 | DS ---
Physical Exam: SUBJECTIVE: Patient seen and examined OBJECTIVE: Vital Signs Period Temp Pulse Resp BP Sys/Wills Pulse Ox Last 24 Hr 97.8 F-98.8 F 46-67 14-14 112-130/54-70 96-100 PHYSICAL EXAM GENERAL: The patient is awake, alert, and fully oriented, in no acute distress. HEAD: Normal with no signs of trauma. EYES: PERRL, extraocular movements intact, sclera anicteric, conjunctiva clear. ENT: Ears normal, nares patent, oropharynx clear without exudates, moist mucous membranes. NECK: Trachea midline, full range of motion, supple. LUNGS: Breath sounds equal, clear to auscultation bilaterally, no wheezes, no crackles, no accessory muscle use. HEART: Regular rate and rhythm, S1, S2 without murmur, rub or gallop. ABDOMEN: Soft, nontender, nondistended, normoactive bowel sounds, no guarding, no rebound, no hepatosplenomegaly, no masses. EXTREMITIES: 2+ pulses, warm, well-perfused, no edema. NEUROLOGICAL: Cranial nerves II through XII grossly intact. Normal speech, gait not observed. PSYCH: Normal mood, normal affect. SKIN: Warm, dry, normal turgor, no rashes or lesions noted. LABS Laboratory Results - last 24 hr 02/07/18 02/07/18 02/07/18 11:35 12:09 17:45 WBC RBC Hgb Hct MCV MCH MCHC RDW Plt Count MPV Neutrophils % Lymphocytes % Monocytes % Eosinophils % Basophils % Nucleated RBC % Sodium Potassium 4.0 D Chloride Carbon Dioxide Anion Gap BUN Creatinine POC Glucometer 176 147 Random Glucose Calcium Phosphorus Magnesium 02/07/18 02/08/18 02/08/18 23:19 05:50 07:10 WBC 5.0 RBC 3.14 L Hgb 8.5 L Hct 26.1 L MCV 83.1 MCH 27.0 MCHC 32.5 RDW 22.8 H Plt Count 170 MPV 9.6 Neutrophils % 64.9 D Lymphocytes % 27.3 D Monocytes % 5.5 Eosinophils % 1.8 Basophils % 0.5 Nucleated RBC % 0 Sodium Potassium Chloride Carbon Dioxide Anion Gap BUN Creatinine POC Glucometer 225 168 Random Glucose Calcium Phosphorus Magnesium 02/08/18 07:10 WBC RBC Hgb Hct MCV MCH MCHC RDW Plt Count MPV Neutrophils % Lymphocytes % Monocytes % Eosinophils % Basophils % Nucleated RBC % Sodium 144 Potassium 4.5 Chloride 111 H Carbon Dioxide 27 Anion Gap 6 L BUN 67 H Creatinine 2.0 H POC Glucometer Random Glucose 161 H Calcium 7.9 L Phosphorus 4.2 Magnesium 2.1 HOSPITAL COURSE: Date of Admission:01/21/18 Date of Discharge: 02/08/18 Discharge Summary Reason For Visit: HEMOPTYSIS Current Active Problems A-fib (Acute) Abnormal liver enzymes (Acute) Acute on chronic diastolic CHF (congestive heart failure) (Acute) CHF (congestive heart failure) (Acute) Cholestasis, intrahepatic (Acute) Chronic respiratory failure (Acute) Diabetes (Acute) Epistaxis (Acute) Epistaxis (Acute) Childs catheter in place (Acute) Hemorrhage from tracheostomy stoma (Acute) Hypokalemia (Acute) Hypothyroid (Acute) PAF (paroxysmal atrial fibrillation) (Acute) S/P percutaneous endoscopic gastrostomy (PEG) tube placement (Acute) Sinus bradycardia (Acute) TBI (traumatic brain injury) (Acute) Tracheostomy dependent (Acute) Condition: Stable - Instructions Referrals: Getachew Chopra MD [Staff Physician] - Disposition: NURSING HOME FACILITY - Home Medications Comprehensive Discharge Medication List: Ambulatory Orders Acetaminophen [Tylenol] 650 mg PO Q6H PRN 01/21/18 Aspirin Coated [Ecotrin -] 325 mg GT DAILY 01/21/18 Bacitracin - [Bacitracin Topical Ointment -] 1 applic TP TID 01/21/18 Baclofen 10 mg GT Q8H 01/21/18 Balsam Zabrina/Noble Oil [Venelex Ointment] 1 applic TP BID 01/21/18 Docusate Sodium [Colace -] 100 mg GT ASDIR 01/21/18 Ferrous Sulfate [Feosol] 300 mg GT DAILY 01/21/18 Furosemide [Lasix -] 40 mg GT DAILY 01/21/18 Glycopyrrolate/Formoterol Fum [Bevespi Aerosphere Inhaler] 0 gm IH BID 01/21/18 Heparin - 5,000 unit SQ BID 01/21/18 Hypromellose 0.5% Opth Soln [Artificial Tears] 2 drop OU BID 01/21/18 Insulin Glargine,Hum.rec.anlog [Lantus Solostar PEN -] 9 units SQ HS 01/21/18 Insulin Lispro [Humalog] 0 unit SQ Q6H 01/21/18 L.acidoph,Paracasei, B.lactis [Probiotic] 1 each GT DAILY 01/21/18 Lanolin/Mineral Oil [Eucerin Original Lotion] 1 applic TP Q6H 01/21/18 Levothyroxine Sodium [Synthroid] 37.5 mcg GT BID 01/21/18 Nut.tx.gluc.intoler,Lac-Fr,Soy [Glucerna 1.5 Bob] 237 ml GT Q6H 01/21/18 Oxybutynin Chloride 5 mg GT BID 01/21/18 Ranitidine [Zantac -] 150 mg GT DAILY 01/21/18 Sertraline HCl [Zoloft] 25 mg GT DAILY 01/21/18 Silver Sulfadiazine 1% Top Cr [Silvadene -] 1 applic TP DAILY 01/21/18 Simethicone 40 mg GT Q6H 01/21/18 Simvastatin 20 mg GT DAILY 01/21/18 Tamsulosin HCl 0.4 mg GT DAILY 01/21/18 Zinc Oxide 1 applic TP BID 01/21/18 Levothyroxine [Synthroid -] 37.5 mcg PEG DAILY@0700 tablet 02/08/18 Sodium Chloride Nasal [place] [[place] Nasal [place] -] 2 spray NS TID spray - Discharge Referral Referred to [facility] No
[2018-02-08] MEDS: SERTRALINE HCL 25 MG TABLET (FP) NR SCH (11:01)
[2018-02-08] MEDS: OXYBUTYNIN CHLORIDE 5 MG TABLET NGT SCH ×2 (11:02→21:29)
[2018-02-08] MEDS: POTASSIUM CHLORIDE ORAL LIQUID 20 MEQ/15 ML PO SCH ×2 (11:02→21:30)
[2018-02-08] MEDS: [UNRECOGNIZED DRUG - OTHER] PO SCH (12:30)
--- NOTE | 2018-02-08 12:37 | PN ---
Progress Note, Physician History of Present Illness: pulmonary awake,opens eyes,not responsive,on vent support ac mode - Current Medication List Current Medications: Active Medications Baclofen (Lioresal -) 10 mg GT TID [facility] Last Admin: 02/08/18 06:03 Dose: 10 mg Furosemide (Lasix Injection -) 40 mg IVPUSH BID@0600,1400 [facility] Last Admin: 02/08/18 06:04 Dose: 40 mg Insulin Aspart (Novolog Vial Sliding Scale -) 1 vial SQ Q6HPO [facility]; Protocol Last Admin: 02/08/18 12:18 Dose: 2 units Levothyroxine Sodium (Synthroid -) 37.5 mcg PEG DAILY@0700 [facility] Last Admin: 02/08/18 06:03 Dose: 37.5 mcg Mupirocin (Bactroban 2% Ointment -) 1 applic TP BID [facility] Last Admin: 02/07/18 22:33 Dose: 1 applic Probiotis ( Pt's Own Med) 1 each PO DAILY [facility] Last Admin: 02/08/18 12:30 Dose: 1 each Oxybutynin Chloride (Ditropan -) 5 mg NGT BID [facility] Last Admin: 02/08/18 11:02 Dose: 5 mg Potassium Chloride (Potassium Chloride Oral Liquid) 60 meq PO BID [facility] Last Admin: 02/08/18 11:02 Dose: 60 meq Sertraline HCl (Zoloft -) 25 mg NR DAILY [facility] Last Admin: 02/08/18 11:01 Dose: 25 mg Sodium Chloride ([place] Nasal [place] -) 2 spray NS TID [facility] Last Admin: 02/08/18 06:03 Dose: 2 spray - Objective Vital Signs: Vital Signs Temperature 97.9 F 02/08/18 11:00 Pulse Rate 48 L 02/08/18 11:00 Respiratory Rate 14 02/08/18 11:07 Blood Pressure 123/57 02/08/18 11:00 O2 Sat by Pulse Oximetry (%) 98 02/08/18 11:08 Constitutional: Yes: Well Nourished, Calm Eyes: Yes: WNL HENT: Yes: WNL Neck: Yes: Supple (trach) Cardiovascular: Yes: Regular Rate and Rhythm, S1, S2 Respiratory: Yes: Rhonchi (few rhonchi) Gastrointestinal: Yes: Normal Bowel Sounds, Soft Extremities: Yes: WNL Edema: Yes Labs: CBC, BMP 02/08/18 07:10 02/08/18 07:10 INR, PTT INR 1.10 (0.82-1.09) 01/21/18 15:00 Problem List - Problems (1) A-fib Code(s): I48.91 - UNSPECIFIED ATRIAL FIBRILLATION (2) Acute on chronic diastolic CHF (congestive heart failure) Code(s): I50.33 - ACUTE ON CHRONIC DIASTOLIC (CONGESTIVE) HEART FAILURE (3) Chronic respiratory failure Code(s): J96.10 - CHRONIC RESPIRATORY FAILURE, UNSP W HYPOXIA OR HYPERCAPNIA (4) Diabetes Code(s): E11.9 - TYPE 2 DIABETES MELLITUS WITHOUT COMPLICATIONS (5) Epistaxis Code(s): R04.0 - EPISTAXIS (6) Hemoptysis Code(s): R04.2 - HEMOPTYSIS (7) TBI (traumatic brain injury) Code(s): S06.9X9A - UNSP INTRACRANIAL INJURY W LOC OF UNSP DURATION, INIT (8) Tracheostomy dependent Code(s): Z93.0 - TRACHEOSTOMY STATUS Assessment/Plan A/P Chronic Respiratory Failure Hemoptysis resolved Acute Blood Loss Anemia Acute Kidney Injury Atrial Fibrillation DM CHF h/o Traumatic Brain Injury - monitor H/H - lasix - monitor urine output, creatinine - O2 to keep SpO2 >90% - continue volume assist control poor candidate for weaning at this time - DVT/GI prophylaxis DR FORMAN
--- NOTE | 2018-02-08 13:12 | PN ---
Progress Note, Physician History of Present Illness: on vent support no response - Current Medication List Current Medications: Active Medications Baclofen (Lioresal -) 10 mg GT TID [facility] Last Admin: 02/08/18 06:03 Dose: 10 mg Furosemide (Lasix Injection -) 40 mg IVPUSH BID@0600,1400 [facility] Last Admin: 02/08/18 06:04 Dose: 40 mg Insulin Aspart (Novolog Vial Sliding Scale -) 1 vial SQ Q6HPO [facility]; Protocol Last Admin: 02/08/18 12:18 Dose: 2 units Levothyroxine Sodium (Synthroid -) 37.5 mcg PEG DAILY@0700 [facility] Last Admin: 02/08/18 06:03 Dose: 37.5 mcg Mupirocin (Bactroban 2% Ointment -) 1 applic TP BID [facility] Last Admin: 02/07/18 22:33 Dose: 1 applic Probiotis ( Pt's Own Med) 1 each PO DAILY [facility] Last Admin: 02/08/18 12:30 Dose: 1 each Oxybutynin Chloride (Ditropan -) 5 mg NGT BID [facility] Last Admin: 02/08/18 11:02 Dose: 5 mg Potassium Chloride (Potassium Chloride Oral Liquid) 60 meq PO BID [facility] Last Admin: 02/08/18 11:02 Dose: 60 meq Sertraline HCl (Zoloft -) 25 mg NR DAILY [facility] Last Admin: 02/08/18 11:01 Dose: 25 mg Sodium Chloride ([place] Nasal [place] -) 2 spray NS TID [facility] Last Admin: 02/08/18 06:03 Dose: 2 spray - Objective Vital Signs: Vital Signs Temperature 97.9 F 02/08/18 11:00 Pulse Rate 48 L 02/08/18 11:00 Respiratory Rate 14 02/08/18 11:07 Blood Pressure 123/57 02/08/18 11:00 O2 Sat by Pulse Oximetry (%) 98 02/08/18 11:08 Constitutional: Yes: Other Cardiovascular: Yes: S1, S2 Respiratory: Yes: Mechanically Ventilated, Other (trach) Gastrointestinal: Yes: Normal Bowel Sounds, Soft, Other (peg) Musculoskeletal: Yes: Other Extremities: Yes: Other Neurological: Yes: Other Labs: CBC, BMP 02/08/18 07:10 02/08/18 07:10 INR, PTT INR 1.10 (0.82-1.09) 01/21/18 15:00 Assessment/Plan 87yo M with 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 He was found to have bright red bloody secretions suctioned from tracheostomy site.and now found to have esbl uti uti ac blood loos anemia Acute CHF Exacerbation S/p Tracheostomy Afib CKD DM2 Hypothyroidism plan once completed the course can stop abx rest continue as per pul nutrition continues to do poorly
--- NOTE | 2018-02-08 13:33 | PN ---
Progress Note, Physician History of Present Illness: This is an 87 yr old white man with h/o traumatic fall down stairs (admitted to [facility] about a month ago and had neck/back surgery, tracheotomy placement 2016 now with traumatic brain injury (TBI), ventilator dependent, and PEG tube placement), recent aspiration PNA, A-fib, CHF, DM, renal failure, TBI, legally blind and deaf; who is BIBA from [facility] in [place] for blood with clots suctioned from his tracheostomy tube yesterday , as well as anemia detected on his lab work today. 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 Per conversation with attending Dr. Yadiel Gallegos at [facility], yesterday the patient was noted to have bloody secretions suctioned from tracheostomy site , so CBC was checked. His Hct was 24 yesterday, which was down ~10 points from his prior values. They re-checked it again today and Hct was 21. [facility] checked his urine and there was a small amount of blood in it (not enough to explain the Hct drop). Their primary concern has been for GI bleed and FOBT was ordered but had not resulted at the time the patient was sent here. Received his noon medications and simethicone and a portion of his noon PEG tube feeding (had to be stopped early for transport). - Current Medication List Current Medications: Active Medications Baclofen (Lioresal -) 10 mg GT TID [facility] Last Admin: 02/08/18 06:03 Dose: 10 mg Furosemide (Lasix Injection -) 40 mg IVPUSH BID@0600,1400 [facility] Last Admin: 02/08/18 06:04 Dose: 40 mg Insulin Aspart (Novolog Vial Sliding Scale -) 1 vial SQ Q6HPO [facility]; Protocol Last Admin: 02/08/18 12:18 Dose: 2 units Levothyroxine Sodium (Synthroid -) 37.5 mcg PEG DAILY@0700 [facility] Last Admin: 02/08/18 06:03 Dose: 37.5 mcg Mupirocin (Bactroban 2% Ointment -) 1 applic TP BID [facility] Last Admin: 02/07/18 22:33 Dose: [address]Formulated [place] ( Pt's Own Med) 1 each PO DAILY [facility] Last Admin: 02/08/18 12:30 Dose: 1 each Oxybutynin Chloride (Ditropan -) 5 mg NGT BID [facility] Last Admin: 02/08/18 11:02 Dose: 5 mg Potassium Chloride (Potassium Chloride Oral Liquid) 60 meq PO BID [facility] Last Admin: 02/08/18 11:02 Dose: 60 meq Sertraline HCl (Zoloft -) 25 mg NR DAILY [facility] Last Admin: 02/08/18 11:01 Dose: 25 mg Sodium Chloride ([place] Nasal [place] -) 2 spray NS TID [facility] Last Admin: 02/08/18 06:03 Dose: 2 spray - Objective Vital Signs: Vital Signs Temperature 97.9 F 02/08/18 11:00 Pulse Rate 48 L 02/08/18 11:00 Respiratory Rate 14 02/08/18 11:07 Blood Pressure 123/57 02/08/18 11:00 O2 Sat by Pulse Oximetry (%) 98 02/08/18 11:08 Eyes: Yes: WNL, Conjunctiva Clear, EOM Intact HENT: Yes: WNL, Atraumatic, Normocephalic Neck: Yes: WNL, Supple, Trachea Midline Cardiovascular: Yes: WNL, Regular Rate and Rhythm Respiratory: Yes: Mechanically Ventilated Gastrointestinal: Yes: WNL, Normal Bowel Sounds Genitourinary: Yes: WNL Musculoskeletal: Yes: WNL Extremities: Yes: WNL Edema: Yes Integumentary: Yes: WNL ...Motor Strength: WNL Psychiatric: Yes: WNL Labs: CBC, BMP 02/08/18 07:10 02/08/18 07:10 INR, PTT INR 1.10 (0.82-1.09) 01/21/18 15:00 Assessment/Plan - Problems (1) Acute on chronic diastolic CHF (congestive heart failure) Assessment/Plan: ECHO: normal LVEF; mild-moderate MR F/u BUN/Cr (82/1.9), electrolytes (K 3.6), daily weight, Is and Os. Code(s): I50.33 - ACUTE ON CHRONIC DIASTOLIC (CONGESTIVE) HEART FAILURE (2) Chronic respiratory failure Assessment/Plan: trached; mechanically dependent Code(s): J96.10 - CHRONIC RESPIRATORY FAILURE, UNSP W HYPOXIA OR HYPERCAPNIA (3) Diabetes Code(s): E11.9 - TYPE 2 DIABETES MELLITUS WITHOUT COMPLICATIONS (4) Epistaxis Assessment/Plan: No further discharge. F/u Hb (stable ) Code(s): R04.0 - EPISTAXIS (5) Hypothyroid Assessment/Plan: TSH wnl; on Synthroid Code(s): E03.9 - HYPOTHYROIDISM, UNSPECIFIED (6) S/P percutaneous endoscopic gastrostomy (PEG) tube placement Code(s): Z93.1 - GASTROSTOMY STATUS (7) TBI (traumatic brain injury) Code(s): S06.9X9A - UNSP INTRACRANIAL INJURY W LOC OF UNSP DURATION, INIT (8) Tracheostomy dependent Code(s): Z93.0 - TRACHEOSTOMY STATUS (9) Sinus bradycardia Code(s): R00.1 - BRADYCARDIA, UNSPECIFIED (10) PAF (paroxysmal atrial fibrillation) Code(s): I48.0 - PAROXYSMAL ATRIAL FIBRILLATION (11) Hypokalemia Code(s): E87.6 - HYPOKALEMIA
--- NOTE | 2018-02-08 14:06 | DS ---
Physical Exam: SUBJECTIVE: Patient seen and examined OBJECTIVE: Vital Signs Period Temp Pulse Resp BP Sys/Wills Pulse Ox Last 24 Hr 97.8 F-98.8 F 46-67 14-14 112-130/54-70 98-100 PHYSICAL EXAM GENERAL: The patient is awake, alert, and fully oriented, in no acute distress. HEAD: Normal with no signs of trauma. EYES: PERRL, extraocular movements intact, sclera anicteric, conjunctiva clear. ENT: Ears normal, nares patent, oropharynx clear without exudates, moist mucous membranes. NECK: Trachea midline, full range of motion, supple. LUNGS: Breath sounds equal, clear to auscultation bilaterally, no wheezes, no crackles, no accessory muscle use. HEART: Regular rate and rhythm, S1, S2 without murmur, rub or gallop. ABDOMEN: Soft, nontender, nondistended, normoactive bowel sounds, no guarding, no rebound, no hepatosplenomegaly, no masses. EXTREMITIES: 2+ pulses, warm, well-perfused, no edema. NEUROLOGICAL: Cranial nerves II through XII grossly intact. Normal speech, gait not observed. PSYCH: Normal mood, normal affect. SKIN: Warm, dry, normal turgor, no rashes or lesions noted. LABS Laboratory Results - last 24 hr 02/07/18 02/07/18 02/08/18 17:45 23:19 05:50 WBC RBC Hgb Hct MCV MCH MCHC RDW Plt Count MPV Neutrophils % Lymphocytes % Monocytes % Eosinophils % Basophils % Nucleated RBC % Sodium Potassium Chloride Carbon Dioxide Anion Gap BUN Creatinine POC Glucometer 147 225 168 Random Glucose Calcium Phosphorus Magnesium 02/08/18 02/08/18 02/08/18 07:10 07:10 12:17 WBC 5.0 RBC 3.14 L Hgb 8.5 L Hct 26.1 L MCV 83.1 MCH 27.0 MCHC 32.5 RDW 22.8 H Plt Count 170 MPV 9.6 Neutrophils % 64.9 D Lymphocytes % 27.3 D Monocytes % 5.5 Eosinophils % 1.8 Basophils % 0.5 Nucleated RBC % 0 Sodium 144 Potassium 4.5 Chloride 111 H Carbon Dioxide 27 Anion Gap 6 L BUN 67 H Creatinine 2.0 H POC Glucometer 181 Random Glucose 161 H Calcium 7.9 L Phosphorus 4.2 Magnesium 2.1 HOSPITAL COURSE: Date of Admission:01/21/18 Date of Discharge: 02/08/18 Minutes to complete discharge: 35 Discharge Summary Reason For Visit: HEMOPTYSIS Current Active Problems A-fib (Acute) Abnormal liver enzymes (Acute) Acute on chronic diastolic CHF (congestive heart failure) (Acute) CHF (congestive heart failure) (Acute) Cholestasis, intrahepatic (Acute) Chronic respiratory failure (Acute) Diabetes (Acute) Epistaxis (Acute) Epistaxis (Acute) Childs catheter in place (Acute) Hemorrhage from tracheostomy stoma (Acute) Hypokalemia (Acute) Hypothyroid (Acute) PAF (paroxysmal atrial fibrillation) (Acute) S/P percutaneous endoscopic gastrostomy (PEG) tube placement (Acute) Sinus bradycardia (Acute) TBI (traumatic brain injury) (Acute) Tracheostomy dependent (Acute) Condition: Stable - Instructions Referrals: Getachew Chopra MD [Staff Physician] - Disposition: RESIDENTIAL FACILITY - Home Medications Comprehensive Discharge Medication List: Ambulatory Orders Acetaminophen [Tylenol] 650 mg PO Q6H PRN 01/21/18 Aspirin Coated [Ecotrin -] 325 mg GT DAILY 01/21/18 Bacitracin - [Bacitracin Topical Ointment -] 1 applic TP TID 01/21/18 Baclofen 10 mg GT Q8H 01/21/18 Balsam [place] Oil [Venelex Ointment] 1 applic TP BID 01/21/18 Docusate Sodium [Colace -] 100 mg GT ASDIR 01/21/18 Ferrous Sulfate [Feosol] 300 mg GT DAILY 01/21/18 Furosemide [Lasix -] 40 mg GT DAILY 01/21/18 Glycopyrrolate/Formoterol Fum [Bevespi Aerosphere Inhaler] 0 gm IH BID 01/21/18 Heparin - 5,000 unit SQ BID 01/21/18 Hypromellose 0.5% Opth Soln [Artificial Tears] 2 drop OU BID 01/21/18 Insulin Glargine,Hum.rec.anlog [Lantus Solostar PEN -] 9 units SQ HS 01/21/18 Insulin Lispro [Humalog] 0 unit SQ Q6H 01/21/18 L.acidoph,Paracasei, B.lactis [Probiotic] 1 each GT DAILY 01/21/18 Lanolin/Mineral Oil [Eucerin Original Lotion] 1 applic TP Q6H 01/21/18 Levothyroxine Sodium [Synthroid] 37.5 mcg GT BID 01/21/18 Nut.tx.gluc.intoler,Lac-Fr,Soy [Glucerna 1.5 Bob] 237 ml GT Q6H 01/21/18 Oxybutynin Chloride 5 mg GT BID 01/21/18 Ranitidine [Zantac -] 150 mg GT DAILY 01/21/18 Sertraline HCl [Zoloft] 25 mg GT DAILY 01/21/18 Silver Sulfadiazine 1% Top Cr [Silvadene -] 1 applic TP DAILY 01/21/18 Simethicone 40 mg GT Q6H 01/21/18 Simvastatin 20 mg GT DAILY 01/21/18 Tamsulosin HCl 0.4 mg GT DAILY 01/21/18 Zinc Oxide 1 applic TP BID 01/21/18 Levothyroxine [Synthroid -] 37.5 mcg PEG DAILY@0700 tablet 02/08/18 Sodium Chloride Nasal [employer] [[place] [employer] Nasal [employer] -] 2 spray NS TID spray - Discharge Referral Referred to [facility] No
[2018-02-08] MEDS: MUPIROCIN 2% TOPICAL OINTMENT 22 GM TUBE TP SCH ×2 (14:52→21:28)
[2018-02-08] MEDS ORDERED: INSULIN (NOVOLOG) ASPART 100 UNITS/ML 10ML VIAL ONE (17:54)
[2018-02-09] MEDS ORDERED: INSULIN (NOVOLOG) ASPART 100 UNITS/ML 10ML VIAL ONE ×2 (00:55→11:22)
[2018-02-09] MEDS: INSULIN SLIDING SCALE (NOVOLOG) 1 VIAL SQ SCH ×3 (00:59→11:26)
[2018-02-09] MEDS: FUROSEMIDE 40 MG/4 ML INJECTABLE VIAL IVPUSH SCH (06:03)
[2018-02-09] MEDS: BACLOFEN 10 MG TABLET (FP) GT SCH (06:04)
[2018-02-09] MEDS: LEVOTHYROXINE NA 25 MCG TABLET (FP) PEG SCH (06:04)
[2018-02-09] MEDS: SODIUM CHLORIDE NASAL SPRAY 44 ML BOTTLE NS SCH (06:05)
[2018-02-09] MEDS ORDERED: PT OWN MED DRAWER 7, Y5N ONE (09:12)
[2018-02-09] MEDS: OXYBUTYNIN CHLORIDE 5 MG TABLET NGT SCH (09:21)
[2018-02-09] MEDS: SERTRALINE HCL 25 MG TABLET (FP) NR SCH (09:21)
[2018-02-09] MEDS: [UNRECOGNIZED DRUG - OTHER] PO SCH (09:22)
[2018-02-09] MEDS: MUPIROCIN 2% TOPICAL OINTMENT 22 GM TUBE TP SCH (09:25)
[2018-02-09] MEDS: POTASSIUM CHLORIDE ORAL LIQUID 20 MEQ/15 ML PO SCH (09:51)
--- NOTE | 2018-02-09 12:22 | PN ---
Progress Note, Physician History of Present Illness: on vent support no response still lethargic - Current Medication List Current Medications: Active Medications Baclofen (Lioresal -) 10 mg GT TID [facility] Last Admin: 02/09/18 06:04 Dose: 10 mg Furosemide (Lasix Injection -) 40 mg IVPUSH BID@0600,1400 [facility] Last Admin: 02/09/18 06:03 Dose: 40 mg Insulin Aspart (Novolog Vial Sliding Scale -) 1 vial SQ Q6HPO [facility]; Protocol Last Admin: 02/09/18 11:26 Dose: 4 units Levothyroxine Sodium (Synthroid -) 37.5 mcg PEG DAILY@0700 [facility] Last Admin: 02/09/18 06:04 Dose: 37.5 mcg Mupirocin (Bactroban 2% Ointment -) 1 applic TP BID [facility] Last Admin: 02/09/18 09:25 Dose: [address]Formulated [place] ( Pt's Own Med) 1 each PO DAILY [facility] Last Admin: 02/09/18 09:22 Dose: 1 each Oxybutynin Chloride (Ditropan -) 5 mg NGT BID [facility] Last Admin: 02/09/18 09:21 Dose: 5 mg Potassium Chloride (Potassium Chloride Oral Liquid) 60 meq PO BID [facility] Last Admin: 02/09/18 09:51 Dose: 60 meq Sertraline HCl (Zoloft -) 25 mg NR DAILY [facility] Last Admin: 02/09/18 09:21 Dose: 25 mg Sodium Chloride ([place] Nasal [place] -) 2 spray NS TID [facility] Last Admin: 02/09/18 06:05 Dose: 2 spray - Objective Vital Signs: Vital Signs Temperature 99.2 F 02/09/18 06:00 Pulse Rate 62 02/09/18 06:00 Respiratory Rate 14 02/09/18 10:07 Blood Pressure 125/63 02/09/18 06:00 O2 Sat by Pulse Oximetry (%) 99 02/09/18 09:00 Constitutional: Yes: No Distress, Calm Cardiovascular: Yes: S1, S2 Respiratory: Yes: Regular, Mechanically Ventilated, Other Gastrointestinal: Yes: Normal Bowel Sounds, Soft, Other (peg in place) Musculoskeletal: Yes: WNL Extremities: Yes: WNL Neurological: Yes: Other Psychiatric: Yes: Other Labs: CBC, BMP 02/08/18 07:10 02/08/18 07:10 INR, PTT INR 1.10 (0.82-1.09) 01/21/18 15:00 Assessment/Plan 87yo M with 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 He was found to have bright red bloody secretions suctioned from tracheostomy site.and now found to have esbl uti uti ac blood loos anemia Acute CHF Exacerbation S/p Tracheostomy Afib CKD DM2 Hypothyroidism plan once completed the course can stop abx rest continue as per pul nutrition continues to do poorly
[2018-02-09 14:26] VITALS: BP 129/65; PULSE 64; TEMP 98.4
--- NOTE | 2018-02-09 16:26 | PN ---
Progress Note, Physician Chief Complaint: Pt with eyes open (did not follow movement); moves toes spontaneously. History of Present Illness: This is an 87 yr old white man with h/o traumatic fall down stairs (admitted to [facility] about a month ago and had neck/back surgery, tracheotomy placement 2016 now with traumatic brain injury (TBI), ventilator dependent, and PEG tube placement), recent aspiration PNA, A-fib, CHF, DM, renal failure, TBI, legally blind and deaf; who is BIBA from [facility] in [place] for blood with clots suctioned from his tracheostomy tube yesterday , as well as anemia detected on his lab work today. 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 because of the anemia. Per conversation with attending Dr. Yadiel Gallegos at [facility], yesterday the patient was noted to have bloody secretions suctioned from tracheostomy site , so CBC was checked. His Hct was 24 yesterday, which was down ~10 points from his prior values. They re-checked it again today and Hct was 21. [facility] checked his urine and there was a small amount of blood in it (not enough to explain the Hct drop). Their primary concern has been for GI bleed and FOBT was ordered but had not resulted at the time the patient was sent here. Received his noon medications and simethicone and a portion of his noon PEG tube feeding (had to be stopped early for transport). - Objective Vital Signs: Vital Signs Temperature 98.4 F 02/09/18 10:00 Pulse Rate 64 02/09/18 10:00 Respiratory Rate 14 02/09/18 10:07 Blood Pressure 129/65 02/09/18 10:00 O2 Sat by Pulse Oximetry (%) 99 02/09/18 09:00 Constitutional: Yes: Thin Eyes: Yes: Conjunctiva Clear Neck: Yes: Decreased ROM Cardiovascular: Yes: S1 (varies in intensity), S2 Respiratory: Yes: Regular Gastrointestinal: Yes: Soft, Distention Genitourinary: No: Anuria Musculoskeletal: Yes: Muscle Weakness Extremities: Yes: Cool Edema: No Peripheral Pulses WNL: No Peripheral Pulses: Left Doralis Pedis: 1+, Right Dorsalis Pedis: 1+ Neurological: Yes: Weakness Labs: CBC, BMP 02/08/18 07:10 02/08/18 07:10 INR, PTT INR 1.10 (0.82-1.09) 01/21/18 15:00 Problem List - Problems (1) Acute on chronic diastolic CHF (congestive heart failure) Assessment/Plan: ECHO: normal LVEF; mild-moderate MR CXR: improved aeration. F/u BUN/Cr (82/1.9-->67/2.0), electrolytes (K 4.5), daily weight, Is and Os. Code(s): I50.33 - ACUTE ON CHRONIC DIASTOLIC (CONGESTIVE) HEART FAILURE (2) Chronic respiratory failure Assessment/Plan: trached; mechanically dependent Code(s): J96.10 - CHRONIC RESPIRATORY FAILURE, UNSP W HYPOXIA OR HYPERCAPNIA (3) Diabetes Code(s): E11.9 - TYPE 2 DIABETES MELLITUS WITHOUT COMPLICATIONS (4) Epistaxis Assessment/Plan: No further discharge. F/u Hb (stable at 8.5) Code(s): R04.0 - EPISTAXIS (5) Hypothyroid Assessment/Plan: TSH wnl; on Synthroid Code(s): E03.9 - HYPOTHYROIDISM, UNSPECIFIED (6) S/P percutaneous endoscopic gastrostomy (PEG) tube placement Code(s): Z93.1 - GASTROSTOMY STATUS (7) TBI (traumatic brain injury) Code(s): S06.9X9A - UNSP INTRACRANIAL INJURY W LOC OF UNSP DURATION, INIT (8) Tracheostomy dependent Assessment/Plan: f/u with online media buyer. Code(s): Z93.0 - TRACHEOSTOMY STATUS (9) Sinus bradycardia Assessment/Plan: Improvement in resting HR; in high 48s-60 bpm range. TMO < 0.02; TSH WNL. F/u history regarding PAF (on no anticoagulation: anemia, hemoptysis-->PRBCs; epistaxsis). Code(s): R00.1 - BRADYCARDIA, UNSPECIFIED (10) PAF (paroxysmal atrial fibrillation) Assessment/Plan: see under "sinus bradycardia" Code(s): I48.0 - PAROXYSMAL ATRIAL FIBRILLATION (11) Hypokalemia Assessment/Plan: now WNL; f/u serially Code(s): E87.6 - HYPOKALEMIA
== END 2018-02-09 13:01 | DRG 811 ==
LOC: JER 14:00 → JERBED 17:15 → JICU 22:26 → J5S 01-22 18:39
PROVIDERS: ADMIT Internal Medicine; ATTEND Nurse Practitioner Acute Care
PROC: 5A1955Z Respiratory Ventilation, Greater than 96 Consecutive Hours (ICD-10-PCS; principal; 2018-01-21)
PROC: 30233N1 Transfusion of Nonautologous Red Blood Cells into Peripheral Vein, Percutaneous Approach (ICD-10-PCS; 2018-01-21)
PROC: 0D20XUZ Change Feeding Device in Upper Intestinal Tract, External Approach (ICD-10-PCS; 2018-02-04)
DX: D62 Acute posthemorrhagic anemia (principal); I50.33 Acute on chronic diastolic (congestive) heart failure; R53.2 Functional quadriplegia; R04.2 Hemoptysis; J96.10 Chronic respiratory failure, unspecified whether with hypoxia or hypercapnia; N17.9 Acute kidney failure, unspecified; N39.0 Urinary tract infection, site not specified; I13.0 Hypertensive heart and chronic kidney disease with heart failure and stage 1 through stage 4 chronic kidney disease, or unspecified chronic kidney disease; Z99.11 Dependence on respirator [ventilator] status; K94.23 Gastrostomy malfunction; E87.0 Hyperosmolality and hypernatremia; Z93.1 Gastrostomy status; Z93.0 Tracheostomy status; N18.9 Chronic kidney disease, unspecified; R04.0 Epistaxis; R00.1 Bradycardia, unspecified; I48.0 Paroxysmal atrial fibrillation; Z87.820 Personal history of traumatic brain injury; E11.22 Type 2 diabetes mellitus with diabetic chronic kidney disease; E03.9 Hypothyroidism, unspecified; E87.6 Hypokalemia; Z16.12 Extended spectrum beta lactamase (ESBL) resistance; B96.20 Unspecified Escherichia coli [E. coli] as the cause of diseases classified elsewhere; R74.0 Nonspecific elevation of levels of transaminase and lactic acid dehydrogenase [LDH]; R19.7 Diarrhea, unspecified; Y83.9 Surgical procedure, unspecified as the cause of abnormal reaction of the patient, or of later complication, without mention of misadventure at the time of the procedure; R33.9 Retention of urine, unspecified; E83.51 Hypocalcemia
CPT/HCPCS: 36415; 36430; 70490-TC; 71045-TC-FY; 71250-TC; 74018-TC-FY; 74176-TC; 76700-TC; 76856-TC; 80048; 80053; 80061; 81003; 81015; 82272; 82436; 82550; 82570; 82728; 82962; 83540; 83550; 83721; 83735; 83880; 84100; 84132; 84133; 84156; 84300; 84443; 84484; 84540; 85025; 85027; 85610; 85730; 86850; 86900; 86901; 86922; 87040; 87086; 87186; 87324; 87449; 93005; 93010; 93306-TC; 94002; 97161-GP; 99285-25; J0131; J0475; J1756; P9038; P9058

== ENCOUNTER 2018-02-16 21:34 | Inpatient (IN) | payer BC, OTHER ==
[2018-02-16 22:50] LABS: BASO % 3.6 % (0-2.0); EOS % 0.7 % (0-4.5); HEMATOCRIT 16.8 % (35.4-49); LYMPH % 14.9 % (8-40); MCH 27.9 pg (25.7-33.7); MCHC 32.9 g/dl (32.0-35.9); MEAN CELL VOLUME 84.8 fl (80-96); MEAN PLT VOLUME 10.5 fl (7.5-11.1); MONO % 7.6 % (3.8-10.2); NEUT % 73.2 % (42.8-82.8); PLATELET COUNT 145 K/MM3 (134-434); RBC 1.98 M/mm3 (4.00-5.60); RDW 24.6 % (11.9-15.9); WHITE BLOOD COUNT 8.2 K/mm3 (4.0-10.0)
[2018-02-16 22:57] LABS: HEMOGLOBIN 5.5 GM/dL (11.7-16.9)
[2018-02-16 23:02] LABS: INR 1.13 (0.82-1.09); PROTHROMBIN TIME (PATIENT) 12.8 SEC (9.7-13.0)
[2018-02-16 23:04] LABS: ACTIVATED PTT 33.2 SECONDS (26.9-34.4)
[2018-02-16 23:11] LABS: ALBUMIN 2.2 g/dl (3.4-5.0); ANION GAP 8 (8-16); BILIRUBIN,TOTAL 0.2 mg/dL (0.2-1.0); CALCIUM 8.3 mg/dL (8.5-10.1); CHLORIDE 100 mmol/L (98-107); CO2 29 mmol/L (21-32); CREATININE 2.4 mg/dL (0.7-1.3); GLUCOSE,RANDOM 173 mg/dL (74-106); SGPT/ALT 51 U/L (12-78); SODIUM 137 mmol/L (136-145); TOT PROT 6.6 g/dl (6.4-8.2)
[2018-02-16 23:12] LABS: ALK PHOS 103 U/L (45-117); POTASSIUM 4.6 mmol/L (3.5-5.1); SGOT/AST 29 U/L (15-37)
[2018-02-16 23:13] LABS: BLOOD UREA NITROGEN 134 mg/dL (7-18)
--- NOTE | 2018-02-16 23:16 | PDOC ---
History of Present Illness - General History Source: Family Exam Limitations: No Limitations - History of Present Illness Initial Comments: 02/16/18 23:17 The patient is a 87 year old male, with a significant past medical history of traumatic fall (s/p neck (C4,5, and 6)/back surgery, tracheotomy placement now ventilator dependent, and PEG tube placement), frequent pneumonia, emphysema, A- fib, CHF, DM, dementia, renal failure, nonverbal TBI, paraplegic, legally blind and deaf, who presents to the emergency department via EMS from [facility] with, 3 days of hypotension. As per patients son, his blood pressure has been decreasing over the past few days. He reports that his systolic is between 110-119 in the mornings and between 100-109 at night. The patient fluctuates at baseline between bradycardia and tachycardia. Allergies: NKA Social History: Former smoker (Quit 35 years ago). Denies EtOH use and recreational drug use. Primary Care Physician/Kennel Supervisor: Dr. Velez <Tu Holcomb - Last Filed: 02/16/18 23:56> <Marianna Skaggs - Last Filed: 02/17/18 00:26> - General Chief Complaint: Blood Pressure Problem Stated Complaint: Blood Pressure Problem Time Seen by Provider: 02/16/18 21:52 Past History <Tu Holcomb - Last Filed: 02/16/18 23:56> - Past Medical History Cardiac Disorders: Yes (aib) COPD: No Dementia: Yes Diabetes: Yes HTN: Yes - Surgical History Neurologic Surgery: Yes - Suicide/Smoking/Psychosocial Hx Smoking History: Never smoked Have you smoked in the past 12 months: No Information on smoking cessation initiated: No Hx Alcohol Use: No Drug/Substance Use Hx: No Substance Use Type: None Hx Substance Use Treatment: No <Marianna Skaggs - Last Filed: 02/17/18 00:26> - Past Medical History Allergies/Adverse Reactions: Allergies Allergy/AdvReac Type Severity Reaction Status Date / Time No Known Allergies Allergy Verified 02/16/18 22:30 Home Medications: Ambulatory Orders Acetaminophen [Tylenol] 650 mg PO Q6H PRN 01/21/18 Bacitracin - [Bacitracin Topical Ointment -] 1 applic TP TID 01/21/18 Baclofen 10 mg GT Q8H 01/21/18 Balsam [place] Oil [Venelex Ointment] 1 applic TP BID 01/21/18 Docusate Sodium [Colace -] 100 mg GT ASDIR 01/21/18 Ferrous Sulfate [Feosol] 300 mg GT DAILY 01/21/18 Glycopyrrolate/Formoterol Fum [Bevespi Aerosphere Inhaler] 0 gm IH BID 01/21/18 Heparin - 5,000 unit SQ BID 01/21/18 Hypromellose 0.5% Opth Soln [Artificial Tears] 2 drop OU BID 01/21/18 Insulin Glargine,Hum.rec.anlog [Lantus Solostar PEN -] 9 units SQ HS 01/21/18 Insulin Lispro [Humalog] 0 unit SQ Q6H 01/21/18 L.acidoph,Paracasei, B.lactis [Probiotic] 1 each GT DAILY 01/21/18 Lanolin/Mineral Oil [Eucerin Original Lotion] 1 applic TP Q6H 01/21/18 Levothyroxine Sodium [Synthroid] 37.5 mcg GT BID 01/21/18 Oxybutynin Chloride 5 mg GT BID 01/21/18 Ranitidine [Zantac -] 150 mg GT DAILY 01/21/18 Sertraline HCl [Zoloft] 25 mg GT DAILY 01/21/18 Silver Sulfadiazine 1% Top Cr [Silvadene -] 1 applic TP DAILY 01/21/18 Simethicone 40 mg GT Q6H 01/21/18 Simvastatin 20 mg GT DAILY 01/21/18 Tamsulosin HCl 0.4 mg GT DAILY 01/21/18 Zinc Oxide 1 applic TP BID 01/21/18 Levothyroxine [Synthroid -] 37.5 mcg PEG DAILY@0700 tablet 02/08/18 Sodium Chloride Nasal [place] [[place] Nasal [place] -] 2 spray NS TID spray Aspirin [ASA -] 81 mg PO DAILY #30 tab.chew 02/09/18 Furosemide Oral Solution [Lasix Oral Solution -] 40 mg GT BID #300 udc 02/09/18 Nut.tx.imp.renal Fxn,Lac-Reduc [Nepro Carb Steady] 1,000 ml PO DAILY #1000 ml Potassium Chloride 40 meq GT DAILY #40 meq 02/09/18 Review of Systems - Review of Systems Able to Perform ROS?: No Comments:: 02/16/18 23:18 Unable to perform a ROS due to patients clinical condition. <Tu Holcomb - Last Filed: 02/16/18 23:56> *Physical Exam - Vital Signs Last Vital Signs Temp Pulse Resp BP Pulse Ox 99.3 F 78 19 126/53 97 02/16/18 22:24 02/16/18 22:24 02/16/18 22:24 02/16/18 22:24 02/16/18 22:24 - Physical Exam Comments: 02/16/18 23:18 +GENERAL: Nonverbal TBI. Well developed, well nourished. No acute distress. HEENT: Normocephalic, atraumatic. NECK: Supple. Full ROM. No JVD. Carotid pulses 2+ and symmetric, without bruits. No thyromegaly. No lymphadenopathy. CARDIOVASCULAR: Regular rate and rhythm. No murmurs, rubs, or gallops. Distal pulses are 2+ and symmetric. +PULMONARY: Tracheostomy in place, vent dependent. No evidence of respiratory distress. Lungs clear to auscultation bilaterally. No wheezing, rales or rhonchi. ABDOMINAL: G tube intact. Soft. Non-tender. Non-distended. No rebound or guarding. No organomegaly. Normoactive bowel sounds. MUSCULOSKELETAL No bony deformities or tenderness. No CVA tenderness. +EXTREMITIES: Contracted upper extremities. Paraplegic. No cyanosis. No clubbing. No edema. No calf tenderness. SKIN: Warm and dry. No rashes. No jaundice. NEUROLOGICAL: ANO x0. PSYCHIATRIC: Cooperative. Appropriate mood and affect. <Tu Holcomb - Last Filed: 02/16/18 23:56> - Vital Signs Last Vital Signs Temp Pulse Resp BP Pulse Ox 99.3 F 78 19 126/53 97 02/16/18 22:24 02/16/18 22:24 02/16/18 22:24 02/16/18 22:24 02/16/18 22:24 <Marianna Skaggs - Last Filed: 02/17/18 00:26> ED Treatment Course - LABORATORY CBC & Chemistry Diagram: 02/16/18 22:40 06/12/18 22:40 - ADDITIONAL ORDERS Additional order review: Laboratory Results 02/16/18 02/16/18 02/16/18 22:40 22:40 22:35 Sodium 137 Potassium 4.6 Chloride 100 Carbon Dioxide 29 Anion Gap 8 BUN 134 H* D Creatinine 2.4 H Creat Clearance w eGFR 25.86 POC Glucometer [phone] Random Glucose 173 H Calcium 8.3 L Total Bilirubin 0.2 D AST 29 D ALT 51 D Alkaline Phosphatase 103 Troponin I < 0.02 Total Protein 6.6 Albumin 2.2 L 02/16/18 02/16/18 22:40 22:35 RBC 1.98 L D MCV 84.8 MCHC 32.9 RDW 24.6 H MPV 10.5 Neutrophils % 73.2 Lymphocytes % 14.9 D Monocytes % 7.6 Eosinophils % 0.7 Basophils % 3.6 H D POC Glucometer [id number] <Tu Holcomb - Last Filed: 02/16/18 23:56> - LABORATORY CBC & Chemistry Diagram: 02/16/18 22:40 02/16/18 22:40 - ADDITIONAL ORDERS Additional order review: Laboratory Results 02/16/18 02/16/18 02/16/18 22:40 22:40 22:35 Sodium 137 Potassium 4.6 Chloride 100 Carbon Dioxide 29 Anion Gap 8 BUN 134 H* D Creatinine 2.4 H Creat Clearance w eGFR 25.86 POC Glucometer [id number] Random Glucose 173 H Calcium 8.3 L Total Bilirubin 0.2 D AST 29 D ALT 51 D Alkaline Phosphatase 103 Troponin I < 0.02 Total Protein 6.6 Albumin 2.2 L 02/16/18 02/16/18 22:40 22:35 RBC 1.98 L D MCV 84.8 MCHC 32.9 RDW 24.6 H MPV 10.5 Neutrophils % 73.2 Lymphocytes % 14.9 D Monocytes % 7.6 Eosinophils % 0.7 Basophils % 3.6 H D POC Glucometer [id number] - RADIOLOGY Radiology Studies Ordered: Category Date Time Status CHEST X-RAY PORTABLE* [RAD] Stat Radiology 02/16/18 22:12 Completed <Marianna Skgags - Last Filed: 02/17/18 00:26> Medical Decision Making - Critical Care Time Total Critical Care Time (minutes): 90 Critical Care Statement: The care of this patient involved high complexity decision making to prevent further life threatening deterioration of the patient 's condition and/or to evaluate & treat vital organ system(s) failure or risk of failure. - Medical Decision Making 02/16/18 23:[address] Velez, awaiting call back. 02/16/18 23:[address] Perez, inserter promotional item for Dr. Velez, case was discussed. Yomi Corcoran (patient's son) phone number for updates: [phone] <Tu Holcomb - Last Filed: 02/16/18 23:56> - Medical Decision Making 02/16/18 23: <Marianna Skaggs - Last Filed: 02/17/18 00:26> *DC/Admit/Observation/Transfer <Tu Holcomb - Last Filed: 02/16/18 23:56> - Discharge Dispostion Decision to Admit order: Yes <Marianna Skaggs - Last Filed: 02/17/18 00:26> Diagnosis at time of Disposition: Childs catheter in place, PAF (paroxysmal atrial fibrillation), Tracheostomy dependent, S/P percutaneous endoscopic gastrostomy (PEG) tube placement Anemia Qualifiers: Anemia type: due to chronic kidney disease Chronic kidney disease stage: unspecified stage Qualified Code(s): N18.9 - Chronic kidney disease, unspecified ; D63.1 - Anemia in chronic kidney disease Chronic respiratory failure Qualifiers: Respiratory failure complication: unspecified whether with hypoxia or hypercapnia Qualified Code(s): J96.10 - Chronic respiratory failure, unspecified whether with hypoxia or hypercapnia Renal failure Qualifiers: Renal failure chronicity: unspecified chronicity Qualified Code(s): N19 - Unspecified kidney failure - Discharge Dispostion Condition at time of disposition: Fair - Referrals Referrals: Augustus Velez MD [Primary Care Provider] - - Patient Instructions - Post Discharge Activity
[2018-02-16 23:51] LABS: URINE APPEARANCE SLCLOUDY; URINE BILIRUBIN NEGATIVE (<2.0 mg/dL); URINE COLOR YELLOW; URINE GLUCOSE (UA) NEGATIVE (NEGATIVE); URINE KETONE NEGATIVE (NEGATIVE); URINE LEUK ESTERASE NEGATIVE (NEGATIVE); URINE NITRITE NEGATIVE (NEGATIVE); URINE UROBILINOGEN NEGATIVE mg/dL (0.2-1.0)
--- NOTE | 2018-02-16 23:54 | PN ---
Teaching Attending Note Name of Resident: Robert Merlos ATTENDING PHYSICIAN STATEMENT I saw and evaluated the patient. I reviewed the resident's note and discussed the case with the resident. I agree with the resident's findings and plan as documented. 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 As per patients son, his blood pressure has been decreasing over the past few days. He reports that his systolic is between 110- 119 in the mornings and between 100-109 at night. The patient fluctuates at baseline between bradycardia and tachycardia. Family also reports some bleeding around tracheostomy during suctioning. OBJECTIVE: Nonverbal, unresponsive, ventilator dependent. Vital Signs Period Temp Pulse Resp BP Sys/Wills Pulse Ox Last 24 Hr 99.3 F 78 14-19 126/53 97 HEENT: No Jaundice, eye redness or discharge, Normocephalic, midline craniotomy scar?, edentulous, dry oral mucous membrane, External ears are normal. No nasal discharge. Neck: Tracheostomy in place. Supple, nontender. No palpable adenopathy or thyromegaly. No JVD Chest: Diminished breath sounds both bases. Clear to percussion. Heart: Regular. No S3, rub or murmur Abdomen: Not distended, soft, nontender and no HSM. PEG in place. No rebound or guarding. Normoactive bowel sounds. Ext: Limb contractures. Stage 1 sacral decubitus ulcer, Heel guards, No leg edema. Skin: Warm and dry. No petechiae, rash or ecchymosis. Neuro: Nonverbal. Quadriplegia. Home Medications Medication Instructions Recorded Acetaminophen [Tylenol] 650 mg PO Q6H PRN 01/21/18 Bacitracin - [Bacitracin Topical 1 applic TP TID 01/21/18 Ointment -] Baclofen 10 mg GT Q8H 01/21/18 Balsam [place] Oil [Venelex 1 applic TP BID 01/21/18 Ointment] Docusate Sodium [Colace -] 100 mg GT ASDIR 01/21/18 Ferrous Sulfate [Feosol] 300 mg GT DAILY 01/21/18 Glycopyrrolate/Formoterol Fum 0 gm IH BID 01/21/18 [Bevespi Aerosphere Inhaler] Heparin - 5,000 unit SQ BID 01/21/18 Hypromellose 0.5% Opth Soln 2 drop OU BID 01/21/18 [Artificial Tears] Insulin Glargine,Hum.rec.anlog 9 units SQ HS 01/21/18 [Lantus Solostar PEN -] Insulin Lispro [Humalog] 0 unit SQ Q6H 01/21/18 L.acidoph,Paracasei, B.lactis 1 each GT DAILY 01/21/18 [Probiotic] Lanolin/Mineral Oil [Eucerin 1 applic TP Q6H 01/21/18 Original Lotion] Levothyroxine Sodium [Synthroid] 37.5 mcg GT BID 01/21/18 Oxybutynin Chloride 5 mg GT BID 01/21/18 Ranitidine [Zantac -] 150 mg GT DAILY 01/21/18 Sertraline HCl [Zoloft] 25 mg GT DAILY 01/21/18 Silver Sulfadiazine 1% Top Cr 1 applic TP DAILY 01/21/18 [Silvadene -] Simethicone 40 mg GT Q6H 01/21/18 Simvastatin 20 mg GT DAILY 01/21/18 Tamsulosin HCl 0.4 mg GT DAILY 01/21/18 Zinc Oxide 1 applic TP BID 01/21/18 Levothyroxine [Synthroid -] 37.5 mcg PEG DAILY@0700 tablet 02/08/18 Sodium Chloride Nasal [place] [[place] 2 spray NS TID spray 02/08/18 [place] Nasal [place] -] Aspirin [ASA -] 81 mg PO DAILY #30 tab.chew 02/09/18 Furosemide Oral Solution [Lasix 40 mg GT BID #300 udc 02/09/18 Oral Solution -] Nut.tx.imp.renal Fxn,Lac-Reduc 1,000 ml PO DAILY #1000 ml 02/09/18 [Nepro Carb Steady] Potassium Chloride 40 meq GT DAILY #40 meq 02/09/18 Abnormal Lab Results 02/16/18 02/16/18 22:40 22:40 RBC 1.98 L D Hgb 5.5 L* D Hct 16.8 L D RDW 24.6 H Basophils % 3.6 H D BUN 134 H* D Creatinine 2.4 H Random Glucose 173 H Calcium 8.3 L Albumin 2.2 L ASSESSMENT AND PLAN: 1. Sepsis due to Healthcare-associated pneumonia - CXR shows new RLL pneumonia and persistent LLL consolidation. Will treat with with Vancomycin and zosyn as well as solumedrol IV 40 mg qd. Continue daily tracheostomy care and suctioning. Culture tracheostomy aspirate. Patient will be admitted to the ICU as an inpatient. Will consult his PCP to ascertain if persistent LLL consolidation has ever been worked up - if not, will consult pulmonary. Will get lactic acid level, continue IV NS for BP support while awaiting blood transfusion. Will use pressor if BP fails to repond to IV fluids and PRBC transfusion. 2. Severe anemia - Etiology unclear. Will exclude GI loss with serial stool guaiacs, check retic count (bone marrow suppression?) and consult GI. Recent iron studies show a Transferrin saturation of 11% - he will benefit from IV iron and procrit in view of CKD. Rule out tract bleeding and bleeding into his lungs. He has hematuria and we will consult urology. 3. CKD with superimposed KATERIN - KATERIN may signal GI bleeding or pure dehydration. If not worked up in the past, consult nephrology for further evaluation. Avoid NSAIDS and aminoglycosides. 4. Polypharmacy - Will recommend to the NH that they review his medications and DC ones that are not absolutely necessary. 5. Hypoalbuninemia - Likely due to malnutrition and chronic inflammation. Must ensure adequate protein intake via PEG feeding. 6. DM - Use sliding scale insulin. 7. Hypothyroidism - Continue synthroid via PEG. 8. DVT prophylaxis - SCD in view bleeding. 9. Advance directives - Full code
[2018-02-16 23:55] LABS: URINE PROTEIN 2+ (NEGATIVE)
[2018-02-16] MEDS ORDERED: PIPERACILLIN/TAZOB 3.375 GM 3.375 GM in DEXTROSE 5%-WATER - 50 ML IVPB ONE (23:56)
[2018-02-16 23:57] LABS: URINE BACTERIA RARE /hpf (NONE SEEN)
[2018-02-16] MEDS ORDERED: VANCOMYCIN 1,000 MG in DEXTROSE 5%-WATER - 250 ML IVPB ONE (23:57)
[2018-02-17] MEDS ORDERED: PIPERACILLIN/TAZOB 3.375 GM 3.375 GM/50 ML BAG IVPB ONE (00:38)
[2018-02-17] MEDS ORDERED: VANCOMYCIN 1 GRAM (PRE-DOCKED) 1,000 MG/250 ML BAG IVPB ONE (00:38)
[2018-02-17] MEDS ORDERED: SODIUM CHLORIDE 0.9% 500 ML INFUS.BAG IV ONE (00:43)
[2018-02-17] MEDS ORDERED: ACETAMINOPHEN 325 MG TABLET (FP) PO PRN ×2 (01:52→17:28)
[2018-02-17] MEDS ORDERED: PANTOPRAZOLE SODIUM 40 MG VIAL IVPUSH ONE (01:58)
--- NOTE | 2018-02-17 02:18 | HP ---
CHIEF COMPLAINT: hypotension x 3 days PCP: Dr. Velez Historian: EMR, family members, as pt is non-verbal HISTORY OF PRESENT ILLNESS: 87M w/ pmh of traumatic fall (s/p neck (C4,5, and 6)/back surgery, tracheotomy placement now ventilator dependent, and PEG tube placement), frequent pneumonia , emphysema, A-fib, CHF, DM, dementia, renal failure, nonverbal TBI, paraplegia , and legal blindness and deafness, who presents to the emergency department via EMS from [facility] with 3 days of hypotension. As per patients son , his blood pressure has been decreasing over the past few days. He reports that at baseline, his systolic is between 110-119 in the mornings and between 100-109 at night. Pt has failed 5 weaning trials in the last few days, and it was noticed that there was blood around the tracheostomy site when suctioning. Pt' son denies recent fevers, chills, chest pain, emesis, hematemesis, melena, and hematochezia in pt. Of note, pt was recentely hospitalized between 01/21- . for proteus ESBL UTI for which he was treated with ertapenem x 14 days. He was also found to have bleeding around his trach site and ultimately received 1 unit of PRBCs and 2 doses of venofer. ER course was notable for: (1) history (2) exam (3) labs/imaging Recent Travel: denies PAST MEDICAL HISTORY: traumatic fall (s/p neck (C4,5, and 6)/back surgery, tracheotomy placement now ventilator dependent, and PEG tube placement), frequent pneumonia, emphysema, A- fib, CHF, DM, dementia, renal failure, nonverbal TBI, paraplegia, chronic calcified pancreatitis, and legal blindness and deafness PAST SURGICAL HISTORY: prostate for BPH left hip replacement cervical and lumbar vertebral fracture repair Social History: Smoking: former, quit 35 years ago Alcohol: denies Drugs: denies Family History: father- prostate cancer mother- breast cancer Allergies No Known Allergies Allergy (Verified 02/16/18 22:30) HOME MEDICATIONS: Home Medications Medication Instructions Recorded Acetaminophen [Tylenol] 650 mg PO Q6H PRN 01/21/18 Bacitracin - [Bacitracin Topical 1 applic TP TID 01/21/18 Ointment -] Baclofen 10 mg GT Q8H 01/21/18 Balsam [place] Oil [Venelex 1 applic TP BID 01/21/18 Ointment] Docusate Sodium [Colace -] 100 mg GT ASDIR 01/21/18 Ferrous Sulfate [Feosol] 300 mg GT DAILY 01/21/18 Glycopyrrolate/Formoterol Fum 0 gm IH BID 01/21/18 [Bevespi Aerosphere Inhaler] Heparin - 5,000 unit SQ BID 01/21/18 Hypromellose 0.5% Opth Soln 2 drop OU BID 01/21/18 [Artificial Tears] Insulin Glargine,Hum.rec.anlog 9 units SQ HS 01/21/18 [Lantus Solostar PEN -] Insulin Lispro [Humalog] 0 unit SQ Q6H 01/21/18 L.acidoph,Paracasei, B.lactis 1 each GT DAILY 01/21/18 [Probiotic] Lanolin/Mineral Oil [Eucerin 1 applic TP Q6H 01/21/18 Original Lotion] Levothyroxine Sodium [Synthroid] 37.5 mcg GT BID 01/21/18 Oxybutynin Chloride 5 mg GT BID 01/21/18 Ranitidine [Zantac -] 150 mg GT DAILY 01/21/18 Sertraline HCl [Zoloft] 25 mg GT DAILY 01/21/18 Silver Sulfadiazine 1% Top Cr 1 applic TP DAILY 01/21/18 [Silvadene -] Simethicone 40 mg GT Q6H 01/21/18 Simvastatin 20 mg GT DAILY 01/21/18 Tamsulosin HCl 0.4 mg GT DAILY 01/21/18 Zinc Oxide 1 applic TP BID 01/21/18 Levothyroxine [Synthroid -] 37.5 mcg PEG DAILY@0700 tablet 02/08/18 Sodium Chloride Nasal [place] [[place] 2 spray NS TID spray 02/08/18 [place] Nasal [place] -] Aspirin [ASA -] 81 mg PO DAILY #30 tab.chew 02/09/18 Furosemide Oral Solution [Lasix 40 mg GT BID #300 udc 02/09/18 Oral Solution -] Nut.tx.imp.renal Fxn,Lac-Reduc 1,000 ml PO DAILY #1000 ml 02/09/18 [Nepro Carb Steady] Potassium Chloride 40 meq GT DAILY #40 meq 02/09/18 REVIEW OF SYSTEMS CONSTITUTIONAL: Absent: fever, chills, diaphoresis, generalized weakness, malaise, loss of appetite, weight change HEENT: Absent: rhinorrhea, nasal congestion, throat pain, throat swelling, difficulty swallowing, mouth swelling, ear pain, eye pain, visual changes CARDIOVASCULAR: Absent: chest pain, syncope, palpitations, irregular heart rate, lightheadedness , peripheral edema present: hypotension RESPIRATORY: Absent: cough, shortness of breath, dyspnea with exertion, orthopnea, wheezing, stridor, hemoptysis GASTROINTESTINAL: Absent: abdominal pain, abdominal distension, nausea, vomiting, diarrhea, constipation, melena, hematochezia GENITOURINARY: Absent: dysuria, frequency, urgency, hesitancy, hematuria, flank pain, genital pain MUSCULOSKELETAL: Absent: myalgia, arthralgia, joint swelling, back pain, neck pain SKIN: Absent: rash, itching, pallor HEMATOLOGIC/IMMUNOLOGIC: Absent: easy bruising, lymphadenopathy, frequent infections present: bleeding around trach site ENDOCRINE: Absent: unexplained weight gain, unexplained weight loss, heat intolerance, cold intolerance NEUROLOGIC: Absent: headache, focal weakness or paresthesias, dizziness, unsteady gait, seizure, mental status changes, bladder or bowel incontinence PSYCHIATRIC: Absent: anxiety, depression, suicidal or homicidal ideation, hallucinations. PHYSICAL EXAMINATION Vital Signs - 24 hr 02/16/18 02/16/18 02/17/18 21:55 22:24 00:45 Temperature 99.3 F Pulse Rate 78 Respiratory 14 19 15 Rate Blood Pressure 126/53 O2 Sat by Pulse 97 Oximetry (%) GENERAL: elderly male, lying in bed, with arms contracted, minimally responsive , non-verbal at baseline, breathing on vent HEENT: breathing on vent, no obvious bleeding around trach site LUNGS: mechanical breath sounds in anterior lung cutler HEART: RRR, no murmurus ABDOMEN: peg tube in place, soft, NT, ND MUSCULOSKELETAL: arms contracted, no LE edema NEUROLOGICAL: non-verbal, minimally responsive Laboratory Results - last 24 hr 02/16/18 02/16/18 02/16/18 22:35 22:40 22:40 WBC 8.2 D RBC 1.98 L D Hgb 5.5 L* D Hct 16.8 L D MCV 84.8 MCH 27.9 MCHC 32.9 RDW 24.6 H Plt Count 145 MPV 10.5 Absolute Neuts (auto) 6.0 Neutrophils % 73.2 Lymphocytes % 14.9 D Monocytes % 7.6 Eosinophils % 0.7 Basophils % 3.6 H D Nucleated RBC % 0 PT with INR 12.80 INR 1.13 PTT (Actin FS) 33.2 Sodium Potassium Chloride Carbon Dioxide Anion Gap BUN Creatinine Creat Clearance w eGFR POC Glucometer [phone] Random Glucose Calcium Total Bilirubin AST ALT Alkaline Phosphatase Troponin I Total Protein Albumin Urine Color Urine Appearance Urine pH Ur Specific [place] Urine Protein Urine Glucose (UA) Urine Ketones Urine Blood Urine Nitrite Urine Bilirubin Urine Urobilinogen Ur Leukocyte Esterase Urine WBC (Auto) Urine RBC (Auto) Urine Bacteria Stool Occult Blood Blood Type Antibody Screen Crossmatch 02/16/18 02/16/18 02/16/18 22:40 22:40 23:40 WBC RBC Hgb Hct MCV MCH MCHC RDW Plt Count MPV Absolute Neuts (auto) Neutrophils % Lymphocytes % Monocytes % Eosinophils % Basophils % Nucleated RBC % PT with INR INR PTT (Actin FS) Sodium 137 Potassium 4.6 Chloride 100 Carbon Dioxide 29 Anion Gap 8 BUN 134 H* D Creatinine 2.4 H Creat Clearance w eGFR 25.86 POC Glucometer Random Glucose 173 H Calcium 8.3 L Total Bilirubin 0.2 D AST 29 D ALT 51 D Alkaline Phosphatase 103 Troponin I < 0.02 Total Protein 6.6 Albumin 2.2 L Urine Color Yellow Urine Appearance Slcloudy Urine pH 5.0 Ur Specific [place] 1.011 Urine Protein 2+ H Urine Glucose (UA) Negative Urine Ketones Negative Urine Blood 3+ H Urine Nitrite Negative Urine Bilirubin Negative Urine Urobilinogen Negative Ur Leukocyte Esterase Negative Urine WBC (Auto) 4 Urine RBC (Auto) 41 Urine Bacteria Rare Stool Occult Blood Blood Type Antibody Screen Crossmatch 02/16/18 02/17/18 23:40 00:03 WBC RBC Hgb Hct MCV MCH MCHC RDW Plt Count MPV Absolute Neuts (auto) Neutrophils % Lymphocytes % Monocytes % Eosinophils % Basophils % Nucleated RBC % PT with INR INR PTT (Actin FS) Sodium Potassium Chloride Carbon Dioxide Anion Gap BUN Creatinine Creat Clearance w eGFR POC Glucometer Random Glucose Calcium Total Bilirubin AST ALT Alkaline Phosphatase Troponin I Total Protein Albumin Urine Color Urine Appearance Urine pH Ur Specific [place] Urine Protein Urine Glucose (UA) Urine Ketones Urine Blood Urine Nitrite Urine Bilirubin Urine Urobilinogen Ur Leukocyte Esterase Urine WBC (Auto) Urine RBC (Auto) Urine Bacteria Stool Occult Blood Negative Blood Type O POSITIVE Antibody Screen Negative Crossmatch See Detail CXR: new consolidation in RLL w/ small right pleural effusion. Persistent left lung base consolidation and small effusion. ASSESSMENT/PLAN: 87M w/ extensive pmh including traumatic fall (s/p neck (C4,5, and 6)/back surgery, tracheotomy placement now ventilator dependent, and PEG tube placement) , frequent pneumonia, emphysema, A-fib, CHF, DM, dementia, renal failure, nonverbal TBI, paraplegia, and legal blindness and deafness, who presents to the emergency department via EMS from [facility] with acute hypotension , found to have acute on chronic anemia, KATERIN on CKD, hematuria, and new pulmonary consolidation. #acute on chronic normocytic anemia -Hgb of 5.5, MCV of 85. Hgb of 8 on last admission. The only blood loss reported is from around trach site per pt's son. Can't rule out GI bleed. Pt not on AC or NSAIDs -f/u iron studies, retic count -FOBT #1: negative -f/u 2 more sets of FOBT -GI consult, Dr. Diaz, f/u recs -ENT consulted, Dr. Vuong, f/u recs -IV PPI -transfuse 2 units of PRBCs, trend Hgb -as renal failure is likely contributing to chronic anemia, pt can benefit from IV iron and procrit. -Confirm all home meds #hypotension -likely 2/2 hypovolemia 2/2 acute blood loss anemia vs. dehydration from sepsis -NS bolus -transfuse 2 units of PRBCs #KATERIN on CKD -creatinine of 2.4, baseline of 2. -BUN of 134, baseline of 60-8s -likely pre-renal 2/2 hypotension -consult nephrology, Dr. Ayoub, f/u recs #new RLL consolidation -low grade temp of 99.3 in conjunction with new consolidation in setting of vented patient w/ hx of TBI possibly preventing full fever response makes HCAP a strong possibility -continue vanc 1g q24 and zosyn 2.25 q6h given creatinine clearance and weight -ID consulted, Dr. Garza, f/u recs -trend temps and wbc counts -tylenol for fever -f/u blood cx, Ucx, and Scx -solumedrol 40mg daily -trach care and suctioning #persistent L lung base consolidation -determine if this was worked up already -pulmonology on board, f/u recs #hematuria -3+ hematuria on UA -urology consulted, Dr. Lemus, f/u recs #hypoalbuminemia -malnutrition is possible cause -registered dental hygienist consulted, f/u recs #FEN/ppx -NS bolus -electrolytes wnl -nepro -no DVT ppx 2/2 severe anemia -protonix #dispo -admit to ICU Case discussed with attending, Dr. Napoles. -Robert Merlos MD PGY1 Visit type - Emergency Visit Emergency Visit: Yes ED Registration Date: 02/17/18 Care time: The patient presented to the Emergency Department on the above date and was hospitalized for further evaluation of their emergent condition. - New Patient This patient is new to me today: Yes Date on this admission: 02/22/18 - Critical Care Critical Care patient: Yes Total Critical Care Time (in minutes): 40 Critical Care Statement: The care of this patient involved high complexity decision making to prevent further life threatening deterioration of the patient 's condition and/or to evaluate & treat vital organ system(s) failure or risk of failure. Hospitalist Screening - Colonoscopy Questionnaire Colonoscopy Questionnaire: Colonoscopy Questionnaire - Patient: 50 - 75 years old and never had a screening colonoscopy: Unknown History of colon or rectal polyps, or CA: Unknown History of IBD, Crohn's disease or UC: Unknown History of abdominal radiation therapy as a child: Unknown - Relative: 1 with colon or rectal CA, or polyps at age 60 or younger: Unknown Colon or rectal CA diagnosed at age 45 or younger: Unknown Multiple relatives with colon or rectal CA: Unknown - Outcome: Screening Result: Negative Screen
[2018-02-17] MEDS ORDERED: PANTOPRAZOLE SODIUM 40 MG VIAL ONE (02:57)
[2018-02-17] MEDS ORDERED: LEVOTHYROXINE NA 25 MCG TABLET (FP) PEG SCH (07:00)
[2018-02-17] MEDS: BACITRACIN 15 GM TUBE TOPICAL OINTMENT TP SCH ×3 (07:04→22:45)
[2018-02-17] MEDS ORDERED: PIPERACILLIN/TAZOB 2.25 GM 2.25 GM in DEXTROSE 5%-WATER - 50 ML IVPB SCH (07:30)
[2018-02-17] MEDS: INSULIN SLIDING SCALE (NOVOLOG) 1 VIAL SQ SCH ×4 (07:45→22:46)
[2018-02-17] MEDS ORDERED: PIPERACILLIN/TAZOBACTAM 2.25 GM VIAL IVPB ONE (07:57)
--- NOTE | 2018-02-17 07:57 | PN ---
Physical Exam: SUBJECTIVE: Patient seen and examined at bedside. OBJECTIVE: Vital Signs Period Temp Pulse Resp BP Sys/Wills Pulse Ox Last 24 Hr 98.9 F-99.3 F 78-81 14-19 122-128/53-75 97-100 GENERAL: The patient is somnolent, opens eyes to voice, does not follow commands. HEENT: mucous membranes dry, skin dry LUNGS: Anterior breath sounds CTA HEART: Regular rate and rhythm, S1, S2 ABDOMEN: Soft, nontender, nondistended; GT EXTREMITIES: 2+ pulses, warm, well-perfused, no edema. Laboratory Results - last 24 hr 02/16/18 02/16/18 02/16/18 22:35 22:40 22:40 WBC 8.2 D RBC 1.98 L D Hgb 5.5 L* D Hct 16.8 L D MCV 84.8 MCH 27.9 MCHC 32.9 RDW 24.6 H Plt Count 145 MPV 10.5 Absolute Neuts (auto) 6.0 Neutrophils % 73.2 Lymphocytes % 14.9 D Monocytes % 7.6 Eosinophils % 0.7 Basophils % 3.6 H D Nucleated RBC % 0 PT with INR 12.80 INR 1.13 PTT (Actin FS) 33.2 Sodium Potassium Chloride Carbon Dioxide Anion Gap BUN Creatinine Creat Clearance w eGFR POC Glucometer [phone] Random Glucose Calcium Total Bilirubin AST ALT Alkaline Phosphatase Troponin I Total Protein Albumin Urine Color Urine Appearance Urine pH Ur Specific [place] Urine Protein Urine Glucose (UA) Urine Ketones Urine Blood Urine Nitrite Urine Bilirubin Urine Urobilinogen Ur Leukocyte Esterase Urine WBC (Auto) Urine RBC (Auto) Urine Bacteria Stool Occult Blood Blood Type Antibody Screen Crossmatch 02/16/18 02/16/18 02/16/18 22:40 22:40 23:40 WBC RBC Hgb Hct MCV MCH MCHC RDW Plt Count MPV Absolute Neuts (auto) Neutrophils % Lymphocytes % Monocytes % Eosinophils % Basophils % Nucleated RBC % PT with INR INR PTT (Actin FS) Sodium 137 Potassium 4.6 Chloride 100 Carbon Dioxide 29 Anion Gap 8 BUN 134 H* D Creatinine 2.4 H Creat Clearance w eGFR 25.86 POC Glucometer Random Glucose 173 H Calcium 8.3 L Total Bilirubin 0.2 D AST 29 D ALT 51 D Alkaline Phosphatase 103 Troponin I < 0.02 Total Protein 6.6 Albumin 2.2 L Urine Color Yellow Urine Appearance Slcloudy Urine pH 5.0 Ur Specific [place] 1.011 Urine Protein 2+ H Urine Glucose (UA) Negative Urine Ketones Negative Urine Blood 3+ H Urine Nitrite Negative Urine Bilirubin Negative Urine Urobilinogen Negative Ur Leukocyte Esterase Negative Urine WBC (Auto) 4 Urine RBC (Auto) 41 Urine Bacteria Rare Stool Occult Blood Blood Type Antibody Screen Crossmatch 02/16/18 02/17/18 23:40 00:03 WBC RBC Hgb Hct MCV MCH MCHC RDW Plt Count MPV Absolute Neuts (auto) Neutrophils % Lymphocytes % Monocytes % Eosinophils % Basophils % Nucleated RBC % PT with INR INR PTT (Actin FS) Sodium Potassium Chloride Carbon Dioxide Anion Gap BUN Creatinine Creat Clearance w eGFR POC Glucometer Random Glucose Calcium Total Bilirubin AST ALT Alkaline Phosphatase Troponin I Total Protein Albumin Urine Color Urine Appearance Urine pH Ur Specific [place] Urine Protein Urine Glucose (UA) Urine Ketones Urine Blood Urine Nitrite Urine Bilirubin Urine Urobilinogen Ur Leukocyte Esterase Urine WBC (Auto) Urine RBC (Auto) Urine Bacteria Stool Occult Blood Negative Blood Type O POSITIVE Antibody Screen Negative Crossmatch See Detail Active Medications Generic Name Dose Route Start Last Admin Trade Name Freq PRN Reason Stop Dose Admin Acetaminophen 650 mg 02/17/18 01:52 Tylenol - PO Q4H PRN FEVER Artificial Tears 2 drop 02/17/18 10:00 Artificial Tears OU BID [facility] Atorvastatin Calcium 10 mg 02/17/18 22:00 Lipitor - GT HS [facility] Bacitracin 1 applic 02/17/18 06:00 Bacitracin - TP TID [facility] Chlorhexidine Gluconate 1 applic 02/17/18 22:00 Hibiclens For Decolonization - TP HS [facility] Docusate Sodium 100 mg 02/17/18 10:00 Colace - PO DAILY [facility] Ferrous Sulfate 300 mg 02/17/18 10:00 Feosol GT DAILY [facility] Vancomycin HCl 1,000 mg/ 250 mls @ 200 mls/hr 02/17/18 22:00 Dextrose IVPB Q24H [facility] Protocol Piperacillin Sod/Tazobactam 50 mls @ 100 mls/hr 02/17/18 07:30 Sod 2.25 gm/ Dextrose IVPB Q6H-IV [facility] Protocol Piperacillin Sod/Tazobactam 50 mls @ 100 mls/hr 02/17/18 08:00 Sod 2.25 gm/ Dextrose IVPB 02/18/18 03:29 Q6H-IV [facility] Insulin Aspart 1 vial 02/17/18 07:00 Novolog Vial Sliding Scale - SQ ACHS [facility] Protocol Lactobacillus Acidophilus 1 tab 02/17/18 10:00 Bacid - GT DAILY [facility] Levothyroxine Sodium 37.5 mcg 02/17/18 07:00 Synthroid - PEG DAILY@0700 [facility] Methylprednisolone Sodium Succinate 40 mg 02/17/18 10:00 Solu-Medrol - IVPUSH DAILY [facility] Mupirocin 1 applic 02/17/18 10:00 Bactroban Ointment (For Decolonization) - NS 02/22/18 09:59 BID [facility] Oxybutynin Chloride 5 mg 02/17/18 10:00 Ditropan - NGT BID [facility] Pantoprazole Sodium 40 mg 02/17/18 10:00 Protonix Iv IVPUSH DAILY [facility] Sertraline HCl 25 mg 02/17/18 10:00 Zoloft - PO DAILY [facility] Tamsulosin HCl 0.4 mg 02/17/18 08:30 Flomax - PO DAILY@0830 [facility] ASSESSMENT/PLAN 87 year-old male with PMH significant for diastolic heart failure, NIDDM, CKD, and 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 Admitted for HCAP, KATERIN, and severe anemia. Recently admitted 01/21-->02/08/18. HCAP --02/16 CXR: new pneumonia RLL --Vanc, Zosyn Severe anemia --Hgt 5.5 on admission, transfused 2U PRBC overnight, with poor response to 6.9; repeat cbc this afternoon back down to 5.9; will transfuse another 2U --GI did stomach lavage, no active bleeding and serial negative heme occult; per GI anemia is unlikely due to an ongoing or recent GI blood loss --heme consult pending Chronic respiratory failure, ventilator dependent --oxygen requirements are at baseline 30% FiO2 KATERIN on CKD --Cr 2.5 on admission, baseline ~2.0 --patient appears very dry, overdiuresed --hold diuretics --IV fluids Acute on chronic diastolic heart failure --hold diuretics Paroxysmal afib --rate well-controlled --not on anti-coagulation due to anemia, bleeding issues NIDDM --Novolog sliding scale coverage Hypothyroidism -continued levothyroxine Functional quadraplegia Visit type - Emergency Visit Emergency Visit: Yes ED Registration Date: 02/17/18 Care time: The patient presented to the Emergency Department on the above date and was hospitalized for further evaluation of their emergent condition. - New Patient This patient is new to me today: Yes Date on this admission: 02/18/18 - Critical Care Critical Care patient: No
[2018-02-17] MEDS ORDERED: LEVOTHYROXINE NA 25 MCG TABLET (FP) ONE (07:58)
[2018-02-17] MEDS ORDERED: TAMSULOSIN HCL 0.4 MG CAP.ER.24H (FP) ONE (07:58)
[2018-02-17] MEDS: PIPERACILLIN/TAZOB 2.25 GM 2.25 GM in DEXTROSE 5%-WATER - 50 ML IVPB SCH ×2 (08:09→15:11)
[2018-02-17] MEDS ORDERED: TAMSULOSIN HCL 0.4 MG CAP.ER.24H (FP) PO SCH (08:30)
[2018-02-17 08:33] LABS: BASO % 0.5 % (0-2.0); EOS % 0.6 % (0-4.5); HEMATOCRIT 20.7 % (35.4-49); LYMPH % 13.6 % (8-40); MCHC 33.6 g/dl (32.0-35.9); MEAN CELL VOLUME 83.2 fl (80-96); MEAN PLT VOLUME 10.2 fl (7.5-11.1); MONO % 9.3 % (3.8-10.2); PLATELET COUNT 136 K/MM3 (134-434); RBC 2.48 M/mm3 (4.00-5.60); RDW 20.8 % (11.9-15.9); WHITE BLOOD COUNT 7.3 K/mm3 (4.0-10.0)
[2018-02-17] MEDS ORDERED: INSULIN (NOVOLOG) ASPART 100 UNITS/ML 10ML VIAL ONE (08:41)
[2018-02-17 08:44] LABS: HEMOGLOBIN 6.9 GM/dL (11.7-16.9)
[2018-02-17 09:20] LABS: CHLORIDE 99 mmol/L (98-107); POTASSIUM 4.2 mmol/L (3.5-5.1); SODIUM 138 mmol/L (136-145)
--- NOTE | 2018-02-17 09:36 | CON.CARD ---
Consult Consult Specialty:: Cardiology - History of Present Illness History of Present Illness: 87M w/ pmh of traumatic fall (s/p neck (C4,5, and 6)/back surgery, tracheotomy placement now ventilator dependent, and PEG tube placement), frequent pneumonia , emphysema, A-fib, CHF, DM, dementia, renal failure, nonverbal TBI, paraplegia , and legal blindness and deafness, who presents to the emergency department via EMS from [facility] with 3 days of hypotension. As per patients son , his blood pressure has been decreasing over the past few days. He reports that at baseline, his systolic is between 110-119 in the mornings and between 100-109 at night. Pt has failed 5 weaning trials in the last few days, and it was noticed that there was blood around the tracheostomy site when suctioning. Pt' son denies recent fevers, chills, chest pain, emesis, hematemesis, melena, and hematochezia in pt. 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 BRAKEMAN: Yes: Other (TBI) Cardio/Vascular: Yes: AFIB, CHF, HTN Pulmonary: Yes: Other (s/p Tach, vent dependent) Psych: Yes: Other Endocrine: Yes: Diabetes Mellitus - Alcohol/Substance Use Hx Alcohol Use: No - Smoking History Smoking history: Never smoked Have you smoked in the past 12 months: No Home Medications - Allergies Allergies/Adverse Reactions: Allergies Allergy/AdvReac Type Severity Reaction Status Date / Time No Known Allergies Allergy Verified 02/16/18 22:30 - Home Medications Home Medications: Ambulatory Orders Acetaminophen [Tylenol] 650 mg PO Q6H PRN 01/21/18 Bacitracin - [Bacitracin Topical Ointment -] 1 applic TP TID 01/21/18 Baclofen 10 mg GT Q8H 01/21/18 Balsam [place] Oil [Venelex Ointment] 1 applic TP BID 01/21/18 Docusate Sodium [Colace -] 100 mg GT ASDIR 01/21/18 Ferrous Sulfate [Feosol] 300 mg GT DAILY 01/21/18 Glycopyrrolate/Formoterol Fum [Bevespi Aerosphere Inhaler] 0 gm IH BID 01/21/18 Heparin - 5,000 unit SQ BID 01/21/18 Hypromellose 0.5% Opth Soln [Artificial Tears] 2 drop OU BID 01/21/18 Insulin Glargine,Hum.rec.anlog [Lantus Solostar PEN -] 9 units SQ HS 01/21/18 Insulin Lispro [Humalog] 0 unit SQ Q6H 01/21/18 L.acidoph,Paracasei, B.lactis [Probiotic] 1 each GT DAILY 01/21/18 Lanolin/Mineral Oil [Eucerin Original Lotion] 1 applic TP Q6H 01/21/18 Levothyroxine Sodium [Synthroid] 37.5 mcg GT BID 01/21/18 Oxybutynin Chloride 5 mg GT BID 01/21/18 Ranitidine [Zantac -] 150 mg GT DAILY 01/21/18 Sertraline HCl [Zoloft] 25 mg GT DAILY 01/21/18 Silver Sulfadiazine 1% Top Cr [Silvadene -] 1 applic TP DAILY 01/21/18 Simethicone 40 mg GT Q6H 01/21/18 Simvastatin 20 mg GT DAILY 01/21/18 Tamsulosin HCl 0.4 mg GT DAILY 01/21/18 Zinc Oxide 1 applic TP BID 01/21/18 Levothyroxine [Synthroid -] 37.5 mcg PEG DAILY@0700 tablet 02/08/18 Sodium Chloride Nasal [place] [[place] Nasal [place] -] 2 spray NS TID spray Aspirin [ASA -] 81 mg PO DAILY #30 tab.chew 02/09/18 Furosemide Oral Solution [Lasix Oral Solution -] 40 mg GT BID #300 udc 02/09/18 Nut.tx.imp.renal Fxn,Lac-Reduc [Nepro Carb Steady] 1,000 ml PO DAILY #1000 ml Potassium Chloride 40 meq GT DAILY #40 meq 02/09/18 Review of Systems Unable to obtain ROS, reason: dementia Vital Signs: Vital Signs Temperature 98.9 F 02/17/18 05:50 Pulse Rate 80 02/17/18 05:50 Respiratory Rate 16 02/17/18 06:40 Blood Pressure 128/75 02/17/18 05:50 O2 Sat by Pulse Oximetry (%) 97 02/17/18 05:50 Constitutional: Yes: Well Nourished, No Distress, Calm Eyes: Yes: WNL, Conjunctiva Clear, EOM Intact HENT: Yes: WNL, Atraumatic, Normocephalic Neck: Yes: WNL, Supple, Trachea Midline Respiratory: Yes: Mechanically Ventilated Gastrointestinal: Yes: WNL, Normal Bowel Sounds Renal/: Yes: WNL Cardiovascular: Yes: Regular Rate and Rhythm Heart Sounds: Yes: S1, S2 Musculoskeletal: Yes: WNL Extremities: Yes: WNL Integumentary: Yes: WNL Neurological: Yes: WNL, Alert, Oriented ...Motor Strength: WNL Psychiatric: Yes: WNL, Alert, Oriented - Other Data Labs, Other Data: CBC, BMP 02/17/18 08:00 INR, PTT INR 1.13 (0.82-1.09) 02/16/18 22:40 Troponin, BNP 02/16/18 22:40 Troponin I < 0.02 Troponin, BNP 02/16/18 22:40 Troponin I < 0.02 Imaging - Results Chest X-ray: Image Reviewed (bilatreal basakl changes) EKG: Image Reviewed (sr rep abn) Assessment/Plan /p neck (C4,5, and 6)/back surgery, tracheotomy placement now ventilator dependent, and PEG tube placement), frequent pneumonia, emphysema, A-fib, CHF, DM, dementia, renal failure, nonverbal TBI, paraplegia, and legal blindness and deafness, who presents to the emergency department via EMS from [facility] with 3 days of hypotension and anemia. Plan gi/gu renal eval cardiac hall stable PAf in sr echo pending
--- NOTE | 2018-02-17 09:42 | EKG ---
Test Reason : Blood Pressure : / mmHG Vent. Rate : 074 BPM Atrial Rate : 074 BPM P-R Int : 142 ms QRS Dur : 066 ms QT Int : 386 ms P-R-T Axes : 068 017 039 degrees QTc Int : 428 ms POOR DATA QUALITY, INTERPRETATION MAY BE ADVERSELY AFFECTED NORMAL SINUS RHYTHM LOW VOLTAGE QRS SEPTAL INFARCT (CITED ON OR BEFORE 21-JAN-2018) ABNORMAL ECG WHEN COMPARED WITH ECG OF 24-JAN-2018 11:22, PREMATURE ATRIAL COMPLEXES ARE NO LONGER PRESENT Confirmed by EDWARD GONCALVES, NOA ([id number]) on 02/17/2018 9:42:24 AM Referred By: Confirmed By:NOA LEON MD
[2018-02-17] MEDS ORDERED: FERROUS SO4 300 MG/5 ML ORAL SOLN UNIT DOSE CUPS GT SCH (10:00)
[2018-02-17] MEDS ORDERED: methylPREDNISolone NA SUCC 40 MG/1 ML VIAL IVPUSH SCH (10:00)
[2018-02-17] MEDS ORDERED: SERTRALINE HCL 25 MG TABLET (FP) PO SCH (10:00)
[2018-02-17] MEDS ORDERED: ARTIFICIAL TEARS (POLYVINYL ALCOHOL 1.4%) OPTH DROPS OU SCH (10:00)
[2018-02-17] MEDS ORDERED: LACTOBACILLUS ACIDOPHILUS 1 TABLET GT SCH (10:00)
[2018-02-17] MEDS ORDERED: ZINC OXIDE 20% TOPICAL OINTMENT 30 GM TUBE TP SCH (10:00)
[2018-02-17] MEDS ORDERED: MUPIROCIN 2% TOPICAL OINTMENT FOR DECOLONIZATION NS SCH ×2 (10:00→22:00)
[2018-02-17] MEDS ORDERED: POTASSIUM CHLORIDE ORAL LIQUID 20 MEQ/15 ML GT SCH (10:00)
[2018-02-17] MEDS ORDERED: SILVER SULFADIAZINE 1% TOP CREAM 400 GM JAR TP SCH (10:00)
[2018-02-17] MEDS ORDERED: DOCUSATE SODIUM 100 MG CAPSULE (FP) PO SCH (10:00)
[2018-02-17] MEDS ORDERED: PANTOPRAZOLE SODIUM 40 MG VIAL IVPUSH SCH (10:00)
[2018-02-17] MEDS ORDERED: OXYBUTYNIN CHLORIDE 5 MG TABLET NGT SCH (10:00)
[2018-02-17 10:32] LABS: ALBUMIN 2.1 g/dl (3.4-5.0); ALK PHOS 98 U/L (45-117); ANION GAP 13 (8-16); BILIRUBIN,TOTAL 0.7 mg/dL (0.2-1.0); CALCIUM 8.1 mg/dL (8.5-10.1); CO2 26 mmol/L (21-32); CREATININE 2.5 mg/dL (0.7-1.3); GLUCOSE,RANDOM 277 mg/dL (74-106); SGOT/AST 21 U/L (15-37); TOT PROT 6.1 g/dl (6.4-8.2)
[2018-02-17 10:39] LABS: BLOOD UREA NITROGEN 133 mg/dL (7-18)
[2018-02-17 10:46] LABS: SGPT/ALT 41 U/L (12-78)
--- NOTE | 2018-02-17 10:49 | CONSULT ---
Consult Consult Specialty:: Nephrology ( Arsh/ Mega) Reason for Consultation:: Abnormal Kideny functions. - History of Present Illness Chief Complaint: Patient tranferred from the [place] for profound hypotension. History of Present Illness: Patient is an 87 year old man with a significant past medical history of TBI due to fall (s/p neck (C4,5, and 6)/back surgery, BPH, ESBL proteus UTI, ventilator-dependence via tracheotomy, PEG tube feeding, frequent pneumonia, A- fib, CHF, DM, dementia, CKD stage III, nonverbal, quadriplegia, legally blind and deaf, who presents to the emergency department from [facility] with 3 day history of hypotension. As per patients daughter, his blood pressure has been decreasing over the past few days. His systolic was reportedly between 110- 119 in the mornings and between 100-109 at night. The patient fluctuates at baseline between bradycardia and tachycardia. Family also reports some bleeding around tracheostomy during suctioning. - History Source History Provided By: Family Member, Transfer Record - Past Medical History CHIEF OF SURGERY: Yes: Other (TBI) Cardio/Vascular: Yes: AFIB, CHF, HTN Pulmonary: Yes: Other (s/p Tach, vent dependent) Renal/: Yes: Renal Failure Psych: Yes: Other Endocrine: Yes: Diabetes Mellitus - Alcohol/Substance Use Hx Alcohol Use: No - Smoking History Smoking history: Never smoked Have you smoked in the past 12 months: No Home Medications - Allergies Allergies/Adverse Reactions: Allergies Allergy/AdvReac Type Severity Reaction Status Date / Time No Known Allergies Allergy Verified 02/16/18 22:30 - Home Medications Home Medications: Ambulatory Orders Acetaminophen [Tylenol] 650 mg PO Q6H PRN 01/21/18 Bacitracin - [Bacitracin Topical Ointment -] 1 applic TP TID 01/21/18 Baclofen 10 mg GT Q8H 01/21/18 Balsam [place] Oil [Venelex Ointment] 1 applic TP BID 01/21/18 Docusate Sodium [Colace -] 100 mg GT ASDIR 01/21/18 Ferrous Sulfate [Feosol] 300 mg GT DAILY 01/21/18 Glycopyrrolate/Formoterol Fum [Bevespi Aerosphere Inhaler] 0 gm IH BID 01/21/18 Heparin - 5,000 unit SQ BID 01/21/18 Hypromellose 0.5% Opth Soln [Artificial Tears] 2 drop OU BID 01/21/18 Insulin Glargine,Hum.rec.anlog [Lantus Solostar PEN -] 9 units SQ HS 01/21/18 Insulin Lispro [Humalog] 0 unit SQ Q6H 01/21/18 L.acidoph,Paracasei, B.lactis [Probiotic] 1 each GT DAILY 01/21/18 Lanolin/Mineral Oil [Eucerin Original Lotion] 1 applic TP Q6H 01/21/18 Levothyroxine Sodium [Synthroid] 37.5 mcg GT BID 01/21/18 Oxybutynin Chloride 5 mg GT BID 01/21/18 Ranitidine [Zantac -] 150 mg GT DAILY 01/21/18 Sertraline HCl [Zoloft] 25 mg GT DAILY 01/21/18 Silver Sulfadiazine 1% Top Cr [Silvadene -] 1 applic TP DAILY 01/21/18 Simethicone 40 mg GT Q6H 01/21/18 Simvastatin 20 mg GT DAILY 01/21/18 Tamsulosin HCl 0.4 mg GT DAILY 01/21/18 Zinc Oxide 1 applic TP BID 01/21/18 Levothyroxine [Synthroid -] 37.5 mcg PEG DAILY@0700 tablet 02/08/18 Sodium Chloride Nasal [place] [[place] Nasal [place] -] 2 spray NS TID spray Aspirin [ASA -] 81 mg PO DAILY #30 tab.chew 02/09/18 Furosemide Oral Solution [Lasix Oral Solution -] 40 mg GT BID #300 udc 02/09/18 Nut.tx.imp.renal Fxn,Lac-Reduc [Nepro Carb Steady] 1,000 ml PO DAILY #1000 ml Potassium Chloride 40 meq GT DAILY #40 meq 02/09/18 Review of Systems - Review of Systems Constitutional: reports: Lethargy Breasts: reports: No Symptoms Reported Musculoskeletal: reports: No Symptoms Neurological: reports: Confusion, Weakness Hematology/Lymphatic: reports: Other (profound anemia. No overt GI bleeding) Physical Exam Vital Signs: Vital Signs Temperature 98.9 F 02/17/18 05:50 Pulse Rate 68 02/17/18 07:05 Respiratory Rate 18 02/17/18 10:00 Blood Pressure 128/75 02/17/18 05:50 O2 Sat by Pulse Oximetry (%) 100 02/17/18 07:05 Constitutional: Yes: Mild Distress, Pallor HENT: Yes: Normocephalic Neck: Yes: Trachea Midline (tracheostomy) Cardiovascular: Yes: Pulse Irregular, S1, S2 Respiratory: Yes: Intubated, Mechanically Ventilated Gastrointestinal: Yes: Normal Bowel Sounds, Soft Renal/: No: Bladder Distention, CVA Tenderness - Left, CVA Tenderness - Right , Hematuria Musculoskeletal: Yes: Muscle Weakness Neurological: Yes: Aphasia, Confusion, Weakness Labs: CBC, BMP 02/17/18 08:00 02/17/18 08:00 Imaging - Results Ultrasound: Pending, Report Reviewed, Image Reviewed, Other Problem List - Problems (1) Acute renal failure Code(s): N17.9 - ACUTE KIDNEY FAILURE, UNSPECIFIED (2) Chronic kidney disease, stage 3 Code(s): N18.3 - CHRONIC KIDNEY DISEASE, STAGE 3 (MODERATE) (3) Anemia Code(s): D64.9 - ANEMIA, UNSPECIFIED Qualifiers: Anemia type: due to chronic kidney disease Chronic kidney disease stage: unspecified stage Qualified Code(s): N18.9 - Chronic kidney disease, unspecified; D63.1 - Anemia in chronic kidney disease (4) Chronic respiratory failure Code(s): J96.10 - CHRONIC RESPIRATORY FAILURE, UNSP W HYPOXIA OR HYPERCAPNIA Qualifiers: Respiratory failure complication: unspecified whether with hypoxia or hypercapnia Qualified Code(s): J96.10 - Chronic respiratory failure, unspecified whether with hypoxia or hypercapnia (5) PAF (paroxysmal atrial fibrillation) Code(s): I48.0 - PAROXYSMAL ATRIAL FIBRILLATION (6) A-fib Code(s): I48.91 - UNSPECIFIED ATRIAL FIBRILLATION (7) Hemorrhage from tracheostomy stoma Code(s): J95.01 - HEMORRHAGE FROM TRACHEOSTOMY STOMA Assessment/Plan Patient is an 87 year old man with a significant past medical history of TBI due to fall (s/p neck (C4,5, and 6)/back surgery, BPH, ESBL proteus UTI, ventilator-dependence via tracheotomy, PEG tube feeding, frequent pneumonia, A- fib, CHF, DM, dementia, CKD stage III, nonverbal, quadriplegia, legally blind and deaf, who presents to the emergency department from [facility] with , 3 days of hypotension. As per patients son, his blood pressure has been decreasing over the past few days. He reports that his systolic is between 110-119 in the mornings and between 100-109 at night. The patient fluctuates at baseline between bradycardia and tachycardia. Family also reports some bleeding around tracheostomy during suctioning. The patient has underlying Chronic Kidney disease....most likely from multiple etiology... including renal senescence, nephrosclerosis. Profound anemia... The patient has underlying Chronic anemia, but the current degree of anemia is much more than in the past. Patient received 2 Units of PRBC , and still the hgb is only 6.6gms. An active source of blood loss need to be ruled out. Will place a christopher catheter since there is no appreciable urine recorded. Discussed at lengthe with the daughter. Suggest: Hemodynamic stabilization. Respiratory support. PRBC transfusion. ? source of blood loss. IV antibiotics. IV fluids. Will monitor the renal functions with you. Thank you. Will follow with you. Margarita Caban MD
[2018-02-17 11:17] LABS: ANISOCYTOSIS 1+; MACROCYTOSIS 1+; PLATELET ESTIMATE DECREASED
--- NOTE | 2018-02-17 11:50 | CON.GU ---
Consult Consult Specialty:: Reason for Consultation:: hematuria - History of Present Illness Chief Complaint: hypotension History of Present Illness: CHIEF COMPLAINT: hypotension x 3 days PCP: Dr. Velez Historian: EMR, family members, as pt is non-verbal HISTORY OF PRESENT ILLNESS: 87M w/ pmh of traumatic fall (s/p neck (C4,5, and 6)/back surgery, tracheotomy placement now ventilator dependent, and PEG tube placement), frequent pneumonia , emphysema, A-fib, CHF, DM, dementia, renal failure, nonverbal TBI, paraplegia , and legal blindness and deafness, who presents to the emergency department via EMS from [facility] with 3 days of hypotension. As per patients son , his blood pressure has been decreasing over the past few days. He reports that at baseline, his systolic is between 110-119 in the mornings and between 100-109 at night. Pt has failed 5 weaning trials in the last few days, and it was noticed that there was blood around the tracheostomy site when suctioning. Pt' son denies recent fevers, chills, chest pain, emesis, hematemesis, melena, and hematochezia in pt. Of note, pt was recently hospitalized between 01/21- . for proteus ESBL UTI for which he was treated with ertapenem x 14 days. He was also found to have bleeding around his trach site and ultimately received 1 unit of PRBCs and 2 doses of venofer. He was found to have microscopic hematuria and cons req. ER course was notable for: (1) history (2) exam (3) labs/imaging Recent Travel: denies PAST MEDICAL HISTORY: traumatic fall (s/p neck (C4,5, and 6)/back surgery, tracheotomy placement now ventilator dependent, and PEG tube placement), frequent pneumonia, emphysema, A- fib, CHF, DM, dementia, renal failure, nonverbal TBI, paraplegia, chronic calcified pancreatitis, and legal blindness and deafness PAST SURGICAL HISTORY: prostate for BPH left hip replacement cervical and lumbar vertebral fracture repair Social History: Smoking: former, quit 35 years ago Alcohol: denies Drugs: denies Family History: father- prostate cancer mother- breast cancer Allergies No Known Allergies Allergy (Verified 02/16/18 22:30) - History Source History Provided By: Medical Record Limitations to Obtaining History: No Limitations - Past Medical History N[employer]: Yes: Other (TBI) Cardio/Vascular: Yes: AFIB, CHF, HTN Pulmonary: Yes: Other (s/p Tach, vent dependent) Renal/: Yes: Renal Failure, BPH, UTI Psych: Yes: Other Endocrine: Yes: Diabetes Mellitus - Alcohol/Substance Use Hx Alcohol Use: No - Smoking History Smoking history: Never smoked Have you smoked in the past 12 months: No Home Medications - Allergies Allergies/Adverse Reactions: Allergies Allergy/AdvReac Type Severity Reaction Status Date / Time No Known Allergies Allergy Verified 02/16/18 22:30 - Home Medications Home Medications: Ambulatory Orders Acetaminophen [Tylenol] 650 mg PO Q6H PRN 01/21/18 Bacitracin - [Bacitracin Topical Ointment -] 1 applic TP TID 01/21/18 Baclofen 10 mg GT Q8H 01/21/18 Balsam [place] Oil [Venelex Ointment] 1 applic TP BID 01/21/18 Docusate Sodium [Colace -] 100 mg GT ASDIR 01/21/18 Ferrous Sulfate [Feosol] 300 mg GT DAILY 01/21/18 Glycopyrrolate/Formoterol Fum [Bevespi Aerosphere Inhaler] 0 gm IH BID 01/21/18 Heparin - 5,000 unit SQ BID 01/21/18 Hypromellose 0.5% Opth Soln [Artificial Tears] 2 drop OU BID 01/21/18 Insulin Glargine,Hum.rec.anlog [Lantus Solostar PEN -] 9 units SQ HS 01/21/18 Insulin Lispro [Humalog] 0 unit SQ Q6H 01/21/18 L.acidoph,Paracasei, B.lactis [Probiotic] 1 each GT DAILY 01/21/18 Lanolin/Mineral Oil [Eucerin Original Lotion] 1 applic TP Q6H 01/21/18 Levothyroxine Sodium [Synthroid] 37.5 mcg GT BID 01/21/18 Oxybutynin Chloride 5 mg GT BID 01/21/18 Ranitidine [Zantac -] 150 mg GT DAILY 01/21/18 Sertraline HCl [Zoloft] 25 mg GT DAILY 01/21/18 Silver Sulfadiazine 1% Top Cr [Silvadene -] 1 applic TP DAILY 01/21/18 Simethicone 40 mg GT Q6H 01/21/18 Simvastatin 20 mg GT DAILY 01/21/18 Tamsulosin HCl 0.4 mg GT DAILY 01/21/18 Zinc Oxide 1 applic TP BID 01/21/18 Levothyroxine [Synthroid -] 37.5 mcg PEG DAILY@0700 tablet 02/08/18 Sodium Chloride Nasal [place] [[place] Nasal [place] -] 2 spray NS TID spray Aspirin [ASA -] 81 mg PO DAILY #30 tab.chew 02/09/18 Furosemide Oral Solution [Lasix Oral Solution -] 40 mg GT BID #300 udc 02/09/18 Nut.tx.imp.renal Fxn,Lac-Reduc [Nepro Carb Steady] 1,000 ml PO DAILY #1000 ml Potassium Chloride 40 meq GT DAILY #40 meq 02/09/18 Physical Exam- Vital Signs: Vital Signs Temperature 98.9 F 02/17/18 05:50 Pulse Rate 68 02/17/18 07:05 Respiratory Rate 18 02/17/18 10:00 Blood Pressure 128/75 02/17/18 05:50 O2 Sat by Pulse Oximetry (%) 100 02/17/18 07:05 Gastrointestinal: Yes: Normal Bowel Sounds, Soft Renal/: Yes: Christopher Present Labs: CBC, BMP 02/17/18 08:00 02/17/18 08:00 Problem List - Problems (1) Hematuria Assessment/Plan: urine cx, cont christopher and abxs. Code(s): R31.9 - HEMATURIA, UNSPECIFIED (2) Acute renal failure Code(s): N17.9 - ACUTE KIDNEY FAILURE, UNSPECIFIED (3) Chronic kidney disease, stage 3 Code(s): N18.3 - CHRONIC KIDNEY DISEASE, STAGE 3 (MODERATE) (4) Christopher catheter in place Code(s): Z92.89 - PERSONAL HISTORY OF OTHER MEDICAL TREATMENT
--- NOTE | 2018-02-17 11:51 | CON.GI ---
Consult Consult Specialty:: GI Reason for Consultation:: Anemia - History of Present Illness History of Present Illness: The pt is known to GI from recent admission. Chart reviewed. Discussed with the pt's daughter. Readmitted with Hgb 5.5 g/dl, BUN 130, Cr 2.4, and a recorded over the last few days hypotension. . No documented/noted stigmata of GI bleeding [facility], or in ED. Pt's daughter reports an episode of bleeding per tracheotomy and nose as well as some blood in urine. No melena, hematochezia, hematemeis, or blood per PEG. 3 Heme negative stools yesterday and today. 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) Cardio/Vascular: Yes: AFIB, CHF, HTN Pulmonary: Yes: Other (s/p Tach, vent dependent) Renal/: Yes: Renal Failure Psych: Yes: Other Endocrine: Yes: Diabetes Mellitus - Alcohol/Substance Use Hx Alcohol Use: No - Smoking History Smoking history: Never smoked Have you smoked in the past 12 months: No Home Medications - Allergies Allergies/Adverse Reactions: Allergies Allergy/AdvReac Type Severity Reaction Status Date / Time No Known Allergies Allergy Verified 02/16/18 22:30 - Home Medications Home Medications: Ambulatory Orders Acetaminophen [Tylenol] 650 mg PO Q6H PRN 01/21/18 Bacitracin - [Bacitracin Topical Ointment -] 1 applic TP TID 01/21/18 Baclofen 10 mg GT Q8H 01/21/18 Balsam [place] Oil [Venelex Ointment] 1 applic TP BID 01/21/18 Docusate Sodium [Colace -] 100 mg GT ASDIR 01/21/18 Ferrous Sulfate [Feosol] 300 mg GT DAILY 01/21/18 Glycopyrrolate/Formoterol Fum [Bevespi Aerosphere Inhaler] 0 gm IH BID 01/21/18 Heparin - 5,000 unit SQ BID 01/21/18 Hypromellose 0.5% Opth Soln [Artificial Tears] 2 drop OU BID 01/21/18 Insulin Glargine,Hum.rec.anlog [Lantus Solostar PEN -] 9 units SQ HS 01/21/18 Insulin Lispro [Humalog] 0 unit SQ Q6H 01/21/18 L.acidoph,Paracasei, B.lactis [Probiotic] 1 each GT DAILY 01/21/18 Lanolin/Mineral Oil [Eucerin Original Lotion] 1 applic TP Q6H 01/21/18 Levothyroxine Sodium [Synthroid] 37.5 mcg GT BID 01/21/18 Oxybutynin Chloride 5 mg GT BID 01/21/18 Ranitidine [Zantac -] 150 mg GT DAILY 01/21/18 Sertraline HCl [Zoloft] 25 mg GT DAILY 01/21/18 Silver Sulfadiazine 1% Top Cr [Silvadene -] 1 applic TP DAILY 01/21/18 Simethicone 40 mg GT Q6H 01/21/18 Simvastatin 20 mg GT DAILY 01/21/18 Tamsulosin HCl 0.4 mg GT DAILY 01/21/18 Zinc Oxide 1 applic TP BID 01/21/18 Levothyroxine [Synthroid -] 37.5 mcg PEG DAILY@0700 tablet 02/08/18 Sodium Chloride Nasal [place] [[place] Nasal [place] -] 2 spray NS TID spray Aspirin [ASA -] 81 mg PO DAILY #30 tab.chew 02/09/18 Furosemide Oral Solution [Lasix Oral Solution -] 40 mg GT BID #300 udc 02/09/18 Nut.tx.imp.renal Fxn,Lac-Reduc [Nepro Carb Steady] 1,000 ml PO DAILY #1000 ml Potassium Chloride 40 meq GT DAILY #40 meq 02/09/18 Family Disease History - Family Disease History Family History: Unremarkable Review of Systems Findings/Remarks: as per HPI, H&P and ED Physical Exam-GI Vital Signs: Vital Signs Temperature 98.9 F 02/17/18 05:50 Pulse Rate 68 02/17/18 07:05 Respiratory Rate 18 02/17/18 10:00 Blood Pressure 128/75 02/17/18 05:50 O2 Sat by Pulse Oximetry (%) 100 02/17/18 07:05 Constitutional: Yes: Calm, Other (non-comunicative) Eyes: No: Sclera Icterus HENT: Yes: Atraumatic Neck: Yes: Supple Cardiovascular: Yes: Regular Rate and Rhythm Respiratory: Yes: Regular Gastrointestinal Inspection: No: Ascites, Distention ...Palpate: Yes: Soft, Other (PEG intact, Gastric lavage with 1000 ml of sterile water infused via PEG and 700 ml aspirated back revealed no fresh blood , blood clots, or coffee-ground like material. No bile noted in the aspirated fluid.). No: Firm/Rigid, Guarding, Tenderness, Tenderness, Epigastium ...Rectal Exam: Yes: Guaiac Negative, Sphincter Tone Poor. No: Mass Labs: CBC, BMP 02/17/18 08:00 02/17/18 08:00 INR, PTT INR 1.13 (0.82-1.09) 02/16/18 22:40 Laboratory Last Values WBC 7.3 K/mm3 (4.0-10.0) 02/17/18 08:00 RBC 2.48 M/mm3 (4.00-5.60) L D 02/17/18 08:00 Hgb 6.9 GM/dL (11.7-16.9) L* D 02/17/18 08:00 Hct 20.7 % (35.4-49) L D 02/17/18 08:00 MCV 83.2 fl (80-96) 02/17/18 08:00 MCH 28.0 pg (25.7-33.7) 02/17/18 08:00 MCHC 33.6 g/dl (32.0-35.9) 02/17/18 08:00 RDW 20.8 % (11.9-15.9) H 02/17/18 08:00 Plt Count 136 K/MM3 (134-434) 02/17/18 08:00 MPV 10.2 fl (7.5-11.1) 02/17/18 08:00 Absolute Neuts (auto) 5.5 # 02/17/18 08:00 Neutrophils % 76.0 % (42.8-82.8) 02/17/18 08:00 Lymphocytes % 13.6 % (8-40) 02/17/18 08:00 Monocytes % 9.3 % (3.8-10.2) 02/17/18 08:00 Eosinophils % 0.6 % (0-4.5) 02/17/18 08:00 Basophils % 0.5 % (0-2.0) 02/17/18 08:00 Nucleated RBC % 0 % (0-0) 02/17/18 08:00 Platelet Estimate Decreased 02/17/18 08:00 Anisocytosis 1+ 02/17/18 08:00 Microcytosis 1+ 02/17/18 08:00 Macrocytosis 1+ 02/17/18 08:00 Retic Count 1.81 % (0.5-1.5) H 02/17/18 08:00 PT with INR 12.80 SEC (9.7-13.0) 02/16/18 22:40 INR 1.13 (0.82-1.09) 02/16/18 22:40 PTT (Actin FS) 33.2 SECONDS (26.9-34.4) 02/16/18 22:40 Sodium 138 mmol/L (136-145) 02/17/18 08:00 Potassium 4.2 mmol/L (3.5-5.1) 02/17/18 08:00 Chloride 99 mmol/L (98-107) 02/17/18 08:00 Carbon Dioxide 26 mmol/L (21-32) 02/17/18 08:00 Anion Gap 13 (8-16) 02/17/18 08:00 BUN 133 mg/dL (7-18) H* 02/17/18 08:00 Creatinine 2.5 mg/dL (0.7-1.3) H 02/17/18 08:00 Creat Clearance w eGFR 24.67 (>60) 02/17/18 08:00 POC Glucometer [phone] UNITS (80-120) 02/17/18 07:55 Random Glucose 277 mg/dL (74-106) H D 02/17/18 08:00 Calcium 8.1 mg/dL (8.5-10.1) L 02/17/18 08:00 Ferritin 245.8 ng/ml (16.4-293.9) 02/17/18 08:00 Total Bilirubin 0.7 mg/dL (0.2-1.0) D 02/17/18 08:00 AST 21 U/L (15-37) D 02/17/18 08:00 ALT 41 U/L (12-78) 02/17/18 08:00 Alkaline Phosphatase 98 U/L (45-117) 02/17/18 08:00 Troponin I < 0.02 ng/ml (0.00-0.05) 02/16/18 22:40 C-Reactive Protein Cancelled 02/17/18 09:45 Total Protein 6.1 g/dl (6.4-8.2) L 02/17/18 08:00 Albumin 2.1 g/dl (3.4-5.0) L 02/17/18 08:00 Urine Color Yellow 02/16/18 23:40 Urine Appearance Slcloudy 02/16/18 23:40 Urine pH 5.0 (5.0-8.0) 02/16/18 23:40 Ur Specific [place] 1.011 (1.001-1.035) 02/16/18 23:40 Urine Protein 2+ (NEGATIVE) H 02/16/18 23:40 Urine Glucose (UA) Negative (NEGATIVE) 02/16/18 23:40 Urine Ketones Negative (NEGATIVE) 02/16/18 23:40 Urine Blood 3+ (NEGATIVE) H 02/16/18 23:40 Urine Nitrite Negative (NEGATIVE) 02/16/18 23:40 Urine Bilirubin Negative (<2.0 mg/dL) 02/16/18 23:40 Urine Urobilinogen Negative mg/dL (0.2-1.0) 02/16/18 23:40 Ur Leukocyte Esterase Negative (NEGATIVE) 02/16/18 23:40 Urine WBC (Auto) 4 /hpf (3-5) 02/16/18 23:40 Urine RBC (Auto) 41 /hpf (0-3) 02/16/18 23:40 Urine Bacteria Rare /hpf (NONE SEEN) 02/16/18 23:40 Stool Occult Blood Negative (NEGATIVE) 02/17/18 10:00 Blood Type O POSITIVE 02/17/18 00:03 Antibody Screen Negative 02/17/18 00:03 Crossmatch See Detail 02/17/18 00:03 Problem List - Problems (1) Acute renal failure Code(s): N17.9 - ACUTE KIDNEY FAILURE, UNSPECIFIED (2) Anemia Code(s): D64.9 - ANEMIA, UNSPECIFIED Qualifiers: Anemia type: due to chronic kidney disease Chronic kidney disease stage: unspecified stage Qualified Code(s): N18.9 - Chronic kidney disease, unspecified; D63.1 - Anemia in chronic kidney disease Assessment/Plan No stigmata of ongoing, or recent GI blood loss. ? CKD ? Sepsis. Gastric lavage via PEG was negative for chandrika blood, or signs of recent bleeding. Agree with PPI and resuming PEG feeds with aspiration precaution. Nephrology and hematology consults. No endoscopic work up is planned at this time. Will follow
--- NOTE | 2018-02-17 14:32 | PN ---
Progress Note, Physician History of Present Illness: 87M w/ pmh of traumatic fall (s/p neck (C4,5, and 6)/back surgery, tracheotomy placement now ventilator dependent, and PEG tube placement), frequent pneumonia , emphysema, A-fib, CHF, DM, dementia, renal failure, nonverbal TBI, paraplegia , and legal blindness and deafness, who presents to the emergency department via EMS from [facility] with 3 days of hypotension. As per patients son , his blood pressure has been decreasing over the past few days. He reports that at baseline, his systolic is between 110-119 in the mornings and between 100-109 at night. Pt has failed 5 weaning trials in the last few days, and it was noticed that there was blood around the tracheostomy site when suctioning. Pt' son denies recent fevers, chills, chest pain, emesis, hematemesis, melena, and hematochezia in pt. - Current Medication List Current Medications: Active Medications Acetaminophen (Tylenol -) 650 mg PO Q4H PRN PRN Reason: FEVER Artificial Tears (Artificial Tears) 2 drop OU BID [facility] Last Admin: 02/17/18 10:10 Dose: Not Given Atorvastatin Calcium (Lipitor -) 10 mg GT HS [facility] Bacitracin (Bacitracin -) 1 applic TP TID [facility] Last Admin: 02/17/18 14:27 Dose: Not Given Chlorhexidine Gluconate (Hibiclens For Decolonization -) 1 applic TP HS [facility] Docusate Sodium (Colace -) 100 mg PO DAILY [facility] Last Admin: 02/17/18 10:10 Dose: Not Given Ferrous Sulfate (Feosol) 300 mg GT DAILY [facility] Last Admin: 02/17/18 10:10 Dose: Not Given Vancomycin HCl 1,000 mg/ (Dextrose) 250 mls @ 200 mls/hr IVPB Q24H [facility]; Protocol Piperacillin Sod/Tazobactam (Sod 2.25 gm/ Dextrose) 50 mls @ 100 mls/hr IVPB Q6H-IV [facility]; Protocol Piperacillin Sod/Tazobactam (Sod 2.25 gm/ Dextrose) 50 mls @ 100 mls/hr IVPB Q6H-IV [facility] Stop: 02/18/18 03:29 Last Admin: 02/17/18 08:09 Dose: 100 mls/hr Insulin Aspart (Novolog Vial Sliding Scale -) 1 vial SQ ACHS [facility]; Protocol Last Admin: 02/17/18 11:15 Dose: Not Given Lactobacillus Acidophilus (Bacid -) 1 tab GT DAILY [facility] Last Admin: 02/17/18 10:10 Dose: Not Given Levothyroxine Sodium (Synthroid -) 37.5 mcg PEG DAILY@0700 [facility] Last Admin: 02/17/18 07:05 Dose: 37.5 mcg Methylprednisolone Sodium Succinate (Solu-Medrol -) 40 mg IVPUSH DAILY [facility] Last Admin: 02/17/18 10:10 Dose: 40 mg Mupirocin (Bactroban Ointment (For Decolonization) -) 1 applic NS BID [facility] Stop: 02/22/18 09:59 Last Admin: 02/17/18 10:00 Dose: Not Given Oxybutynin Chloride (Ditropan -) 5 mg NGT BID [facility] Last Admin: 02/17/18 10:10 Dose: Not Given Pantoprazole Sodium (Protonix Iv) 40 mg IVPUSH DAILY [facility] Last Admin: 02/17/18 10:10 Dose: Not Given Sertraline HCl (Zoloft -) 25 mg PO DAILY [facility] Last Admin: 02/17/18 10:10 Dose: Not Given Tamsulosin HCl (Flomax -) 0.4 mg PO DAILY@0830 [facility] Last Admin: 02/17/18 08:10 Dose: 0.4 mg - Objective Vital Signs: Vital Signs Temperature 98.9 F 02/17/18 13:46 Pulse Rate 69 02/17/18 13:46 Respiratory Rate 14 02/17/18 13:46 Blood Pressure 113/55 02/17/18 13:46 O2 Sat by Pulse Oximetry (%) 100 02/17/18 13:46 Eyes: Yes: WNL, Conjunctiva Clear, EOM Intact HENT: Yes: WNL, Atraumatic, Normocephalic Neck: Yes: WNL, Supple, Trachea Midline Cardiovascular: Yes: WNL, Regular Rate and Rhythm Respiratory: Yes: Diminished, Mechanically Ventilated Gastrointestinal: Yes: WNL, Normal Bowel Sounds Genitourinary: Yes: WNL Musculoskeletal: Yes: WNL Extremities: Yes: WNL Edema: No Integumentary: Yes: WNL Neurological: Yes: WNL, Alert, Oriented ...Motor Strength: WNL Psychiatric: Yes: WNL Labs: CBC, BMP 02/17/18 08:00 02/17/18 08:00 INR, PTT INR 1.13 (0.82-1.09) 02/16/18 22:40 Assessment/Plan /p neck (C4,5, and 6)/back surgery, tracheotomy placement now ventilator dependent, and PEG tube placement), frequent pneumonia, emphysema, A-fib, CHF, DM, dementia, renal failure, nonverbal TBI, paraplegia, and legal blindness and deafness, who presents to the emergency department via EMS from [facility] with 3 days of hypotension and anemia. paf in sr sepsis Plan gi/gu renal eval cardiac hall stable PAf in sr echo nl ef cont abx
[2018-02-17 15:09] LABS: MCH 27.7 pg (25.7-33.7); MCHC 33.8 g/dl (32.0-35.9); MEAN CELL VOLUME 82.2 fl (80-96); MEAN PLT VOLUME 9.5 fl (7.5-11.1); PLATELET COUNT 123 K/MM3 (134-434); RBC 2.11 M/mm3 (4.00-5.60); RDW 20.5 % (11.9-15.9); WHITE BLOOD COUNT 6.6 K/mm3 (4.0-10.0)
--- NOTE | 2018-02-17 16:04 | PN ---
Progress Note (short form) - Note Progress Note: PULMONARY CONSULTATION DICTATED 02/17/18 IMP CHRONIC RESPIRATORY FAILURE VENT DEPENDENT TBI S/P FALL QUADRAPLEGIA SECONDARY TO C4.5,6 FX SEVERE ANEMIA ACUTE ON CHRONIC KIDNEY DISEASE HYPOTENSION SECONDARY TO BLOOD LOSS,DEHYDRATION AFIB DM DEMENTIA H/O PNEUMONIA PLAN IVF TRANSFUSE VENT SUPPORT ON AC MODE MONITOR H+H MONITOR LYTES,RENAL FUNCTION F/U CHEST X-RAYS DR FORMAN Problem List - Problems (1) Anemia Code(s): D64.9 - ANEMIA, UNSPECIFIED (2) Chronic kidney disease, stage 3 Code(s): N18.3 - CHRONIC KIDNEY DISEASE, STAGE 3 (MODERATE) (3) Chronic respiratory failure Code(s): J96.10 - CHRONIC RESPIRATORY FAILURE, UNSP W HYPOXIA OR HYPERCAPNIA Qualifiers: Respiratory failure complication: unspecified whether with hypoxia or hypercapnia Qualified Code(s): J96.10 - Chronic respiratory failure, unspecified whether with hypoxia or hypercapnia (4) PAF (paroxysmal atrial fibrillation) Code(s): I48.0 - PAROXYSMAL ATRIAL FIBRILLATION (5) Renal failure Code(s): N19 - UNSPECIFIED KIDNEY FAILURE Qualifiers: Renal failure chronicity: unspecified chronicity Qualified Code(s): N19 - Unspecified kidney failure (6) Diabetes Code(s): E11.9 - TYPE 2 DIABETES MELLITUS WITHOUT COMPLICATIONS (7) TBI (traumatic brain injury) Code(s): S06.9X9A - UNSP INTRACRANIAL INJURY W LOC OF UNSP DURATION, INIT (8) Aupfm-vl-cdzppim kidney injury Code(s): N17.9 - ACUTE KIDNEY FAILURE, UNSPECIFIED; N18.9 - CHRONIC KIDNEY DISEASE, UNSPECIFIED (9) Vpwvq-im-jfbxjcr renal failure Code(s): N17.9 - ACUTE KIDNEY FAILURE, UNSPECIFIED; N18.9 - CHRONIC KIDNEY DISEASE, UNSPECIFIED (10) Hypotension Code(s): I95.9 - HYPOTENSION, UNSPECIFIED (11) Hypotension Code(s): I95.9 - HYPOTENSION, UNSPECIFIED
[2018-02-17 16:09] LABS: HEMATOCRIT 17.4 % (35.4-49); HEMOGLOBIN 5.9 GM/dL (11.7-16.9)
--- NOTE | 2018-02-17 16:48 | CONS ---
DATE OF CONSULTATION: 02/17/2018 PULMONARY CONSULTATION REFERRING PHYSICIAN: Ethel Hadley N.P. HISTORY OF PRESENT ILLNESS: The patient is an 87-year-old white male past medical chronic respiratory failure status post traumatic brain injury status post fall with subsequent C4, C5-6 fracture, ESBL, BPH, status post PEG, recurrent pneumonias, atrial fibrillation, CHF, diabetes, dementia, chronic kidney disease stage 3, quadriplegia, legally deaf and blind, admitted [facility] prison secondary to hypotension. Patient's nurse called me last time prison, notified me that the patient's blood pressure was around 100 systolic and mid 40s diastoli she was advised to transfer to the emergency room. In the ER he had labs obtained which revealed a hemoglobin of 5.5 g. He was transfused 2 units of packed red blood cells. He was also noted to have elevated BUN at 133 and a creatinine of 2.5. He was admitted for further monitoring and treatment He was evaluated by Dr. Caban for renal consultation as well as Dr. Diaz for a GI consultation,he had a gastric lavage performed which had not revealed any evidence of acute bleed. Today in the emergency room his stools were heme negative. Also evaluated by Dr. Holley for cardiology consultation. It was felt the patient was hemodynamically and cardiac-hall stable. PAST MEDICAL HISTORY: Again includes chronic respiratory failure on ventilatory support, quadriplegia status post C4-5-6 fracture, status post back surgery, traumatic brain injury status post fall, ESBL, UTI, BPH, status post tracheostomy, PEG, recurrent pneumonias, atrial fibrillation, CHF, diabetes, dementia, chronic kidney disease stage 3, quadriplegia, legally blind and deaf. REVIEW OF SYSTEMS: Unable to be obtained at this time. MEDICATION: Include Solu-Medrol, Flomax, Tylenol, Zosyn, vancomycin, Bactroban, bacitracin, Zoloft, Colace, artificial tears, Ditropan, Lipitor, Feosol, Protonix, Synthroid. PHYSICAL EXAMINATION: General: The patient is an elderly white male, well-developed, well-nourished, awake, nonverbal, on vent support. He is responsive, opens eyes. Vital signs: Is afebrile, blood pressure 113/55, respiratory rate 14, O2 saturation is 100%. HEENT: Head is normocephalic, atraumatic. Neck: Supple. Heart: Irregularly irregular. S1, S2. Chest: Scattered bilateral rhonchi. Abdomen: Soft. Bowel sounds positive. Extremities: No cyanosis, edema. LABORATORY: BUN 133, creatinine 2.5. WBC is 7.3, hemoglobin currently 6.9, hematocrit 20.7, platelet count 136,000, reticulocyte count 181, ESR greater than 140. Chest x-ray: bibasilar pulmonary pleural changes. There is elevated hemidiaphragm on the right. There is mild pulmonary vascular congestion. IMPRESSION: 1. Chronic respiratory failure status post fall, traumatic brain injury C4, C5- 6 fracture. 2. Severe anemia likely from gastrointestinal bleed. 3. Hypotension, likely secondary to anemia, dehydration. 4. Gzkzc-ej-hhwbhgi kidney disease. 5. History of dementia. 6. Atrial fibrillation. 7. History of pneumonia. 8. History of congestive heart failure. 9. Diabetes. PLAN: IV fluids. Vent support on assist control mode. Transfuse. Monitor H and H. Monitor renal function. Monitor blood pressures. Strict I's and O's. Obtain followup chest x-ray. Thank you, will follow closely with you. MADY FORMAN M.D. BRAD/[id number] MTDD
--- NOTE | 2018-02-17 17:14 | CON.ID ---
Consult Consult Specialty:: infectious diseases Reason for Consultation:: pneumonia,resp failure - History of Present Illness History of Present Illness: 87M w/ pmh of traumatic fall (s/p neck (C4,5, and 6)/back surgery, tracheotomy placement now ventilator dependent, and PEG tube placement), frequent pneumonia , emphysema, A-fib, CHF, DM, dementia, renal failure, nonverbal TBI, paraplegia , and legal blindness and deafness, who presents to the emergency department via EMS from [facility] with 3 days of hypotension. 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) Cardio/Vascular: Yes: AFIB, CHF, HTN Pulmonary: Yes: Other (s/p Tach, vent dependent) Renal/: Yes: Renal Failure Psych: Yes: Other Endocrine: Yes: Diabetes Mellitus - Alcohol/Substance Use Hx Alcohol Use: No - Smoking History Smoking history: Never smoked Have you smoked in the past 12 months: No Home Medications - Allergies Allergies/Adverse Reactions: Allergies Allergy/AdvReac Type Severity Reaction Status Date / Time No Known Allergies Allergy Verified 02/16/18 22:30 - Home Medications Home Medications: Ambulatory Orders Acetaminophen [Tylenol] 650 mg PO Q6H PRN 01/21/18 Bacitracin - [Bacitracin Topical Ointment -] 1 applic TP TID 01/21/18 Baclofen 10 mg GT Q8H 01/21/18 Balsam Zabrina/[place] Oil [Venelex Ointment] 1 applic TP BID 01/21/18 Docusate Sodium [Colace -] 100 mg GT ASDIR 01/21/18 Ferrous Sulfate [Feosol] 300 mg GT DAILY 01/21/18 Glycopyrrolate/Formoterol Fum [Bevespi Aerosphere Inhaler] 0 gm IH BID 01/21/18 Heparin - 5,000 unit SQ BID 01/21/18 Hypromellose 0.5% Opth Soln [Artificial Tears] 2 drop OU BID 01/21/18 Insulin Glargine,Hum.rec.anlog [Lantus Solostar PEN -] 9 units SQ HS 01/21/18 Insulin Lispro [Humalog] 0 unit SQ Q6H 01/21/18 L.acidoph,Paracasei, B.lactis [Probiotic] 1 each GT DAILY 01/21/18 Lanolin/Mineral Oil [Eucerin Original Lotion] 1 applic TP Q6H 01/21/18 Levothyroxine Sodium [Synthroid] 37.5 mcg GT BID 01/21/18 Oxybutynin Chloride 5 mg GT BID 01/21/18 Ranitidine [Zantac -] 150 mg GT DAILY 01/21/18 Sertraline HCl [Zoloft] 25 mg GT DAILY 01/21/18 Silver Sulfadiazine 1% Top Cr [Silvadene -] 1 applic TP DAILY 01/21/18 Simethicone 40 mg GT Q6H 01/21/18 Simvastatin 20 mg GT DAILY 01/21/18 Tamsulosin HCl 0.4 mg GT DAILY 01/21/18 Zinc Oxide 1 applic TP BID 01/21/18 Levothyroxine [Synthroid -] 37.5 mcg PEG DAILY@0700 tablet 02/08/18 Sodium Chloride Nasal [place] [[place] Nasal [place] -] 2 spray NS TID spray Aspirin [ASA -] 81 mg PO DAILY #30 tab.chew 02/09/18 Furosemide Oral Solution [Lasix Oral Solution -] 40 mg GT BID #300 udc 02/09/18 Nut.tx.imp.renal Fxn,Lac-Reduc [Nepro Carb Steady] 1,000 ml PO DAILY #1000 ml Potassium Chloride 40 meq GT DAILY #40 meq 02/09/18 Review of Systems Unable to obtain ROS, reason: unable to obtain Physical Exam Vital Signs: Vital Signs Temperature 98.9 F 02/17/18 13:46 Pulse Rate 69 02/17/18 13:46 Respiratory Rate 14 02/17/18 13:46 Blood Pressure 113/55 02/17/18 13:46 O2 Sat by Pulse Oximetry (%) 100 02/17/18 13:46 Constitutional: Yes: No Distress, Other Eyes: Yes: Conjunctiva Clear Cardiovascular: Yes: Pulse Irregular Respiratory: Yes: Mechanically Ventilated, Poor Air Entry, Rhonchi, Other (trach ) Gastrointestinal: Yes: Normal Bowel Sounds, Soft, Other (peg in place) Musculoskeletal: Yes: WNL Extremities: Yes: WNL Neurological: Yes: Other Psychiatric: Yes: Other Labs: CBC, BMP 02/17/18 14:55 02/17/18 08:00 Imaging - Results Chest X-ray: Report Reviewed, Image Reviewed Assessment/Plan this patient wiht multiple issues coming back to the hospital with sepsis including hypotension and also new pneumonia and lethargy currently patient is stable pneumonia hypotension sepsis vent dependant h/o of uti plan will start patient on zosyn continue nutrition avoid aspiration rest as per the team
[2018-02-17] MEDS ORDERED: SERTRALINE HCL 25 MG TABLET (FP) NR SCH (17:26)
[2018-02-17] MEDS ORDERED: ACETAMINOPHEN 325 MG TABLET (FP) NR PRN (17:27)
[2018-02-17] MEDS ORDERED: VANCOMYCIN 1,000 MG in DEXTROSE 5%-WATER - 250 ML IVPB SCH (22:00)
[2018-02-17] MEDS ORDERED: CHLORHEXIDINE GLUCONATE 4% CLEANSER FOR DECOLONIZATION TP SCH ×2 (22:00)
[2018-02-17] MEDS ORDERED: ATORVASTATIN CA 10 MG TABLET (FP) GT SCH (22:00)
[2018-02-17] MEDS ORDERED: PT OWN MED DRAWER 7, Y5N ONE (22:32)
[2018-02-17] MEDS: ATORVASTATIN CA 10 MG TABLET (FP) GT SCH (22:45)
[2018-02-17] MEDS: OXYBUTYNIN CHLORIDE 5 MG TABLET NGT SCH (22:45)
[2018-02-17] MEDS: ARTIFICIAL TEARS (POLYVINYL ALCOHOL 1.4%) OPTH DROPS OU SCH (22:57)
[2018-02-18] MEDS: PIPERACILLIN/TAZOB 2.25 GM 2.25 GM in DEXTROSE 5%-WATER - 50 ML IVPB SCH ×3 (02:58→17:38)
[2018-02-18] MEDS: BACITRACIN 15 GM TUBE TOPICAL OINTMENT TP SCH ×3 (06:10→23:10)
[2018-02-18] MEDS: LEVOTHYROXINE NA 25 MCG TABLET (FP) PEG SCH (07:00)
[2018-02-18] MEDS: INSULIN SLIDING SCALE (NOVOLOG) 1 VIAL SQ SCH ×4 (08:00→23:29)
[2018-02-18 08:08] LABS: SERUM IRON SATURATION 30 % (15-55); TOTAL IRON BINDING CAPACITY 147 ug/dL (250-450); UIBC 103 ug/dL (111-343)
[2018-02-18 08:57] LABS: ALK PHOS 120 U/L (45-117); ANION GAP 12 (8-16); BILIRUBIN,TOTAL 0.3 mg/dL (0.2-1.0); CALCIUM 8.2 mg/dL (8.5-10.1); CHLORIDE 102 mmol/L (98-107); CO2 25 mmol/L (21-32); CREATININE 2.4 mg/dL (0.7-1.3); GLUCOSE,RANDOM 237 mg/dL (74-106); MAGNESIUM 2.4 mg/dL (1.8-2.4); POTASSIUM 3.7 mmol/L (3.5-5.1); SGOT/AST 32 U/L (15-37); SGPT/ALT 43 U/L (12-78); SODIUM 139 mmol/L (136-145)
[2018-02-18 09:02] LABS: BASO % 0.4 % (0-2.0); HEMATOCRIT 21.6 % (35.4-49); HEMOGLOBIN 7.5 GM/dL (11.7-16.9); LYMPH % 18.7 % (8-40); MCH 29.4 pg (25.7-33.7); MCHC 34.8 g/dl (32.0-35.9); MEAN CELL VOLUME 84.5 fl (80-96); MEAN PLT VOLUME 10.4 fl (7.5-11.1); NEUT % 69.9 % (42.8-82.8); PLATELET COUNT 124 K/MM3 (134-434); RBC 2.56 M/mm3 (4.00-5.60); RDW 19.5 % (11.9-15.9); WHITE BLOOD COUNT 5.3 K/mm3 (4.0-10.0)
[2018-02-18] MEDS ORDERED: PIPERACILLIN/TAZOBACTAM 2.25 GM VIAL IVPB ONE ×2 (09:21→17:31)
[2018-02-18] MEDS ORDERED: DEXTROSE 5%-WATER - 50 ML IVPB ONE ×2 (09:22→17:31)
--- NOTE | 2018-02-18 09:41 | PN ---
Progress Note, Physician Chief Complaint: Pt on ventilator/trached. No response to verbal queies;does not open eyes. History of Present Illness: The patient is an 87 year old white male, with a significant past medical history of traumatic fall (s/p neck (C4,5, and 6)/back surgery, tracheotomy placement now ventilator dependent, and PEG tube placement), frequent pneumonia , emphysema, A-fib, diastolic CHF, DM, dementia, renal failure, nonverbal TBI, paraplegic, legally blind and deaf, who presents to the emergency department via EMS from [facility] with, 3 days of hypotension. As per patients son, his blood pressure has been decreasing over the past few days. He reports that his systolic is between 110-119 in the mornings and between 100-109 at night. The patient fluctuates at baseline between bradycardia and tachycardia. Allergies: NKA Social History: Former smoker (Quit 35 years ago). Denies EtOH use and recreational drug use. 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 Velez - Current Medication List Current Medications: Active Medications Acetaminophen (Tylenol -) 650 mg PO Q4H PRN PRN Reason: FEVER Artificial Tears (Artificial Tears) 2 drop OU BID [facility] Last Admin: 02/17/18 22:57 Dose: 2 drop Atorvastatin Calcium (Lipitor -) 10 mg GT HS [facility] Last Admin: 02/17/18 22:45 Dose: 10 mg Bacitracin (Bacitracin -) 1 applic TP TID [facility] Last Admin: 02/18/18 06:10 Dose: 1 applic Chlorhexidine Gluconate (Hibiclens For Decolonization -) 1 applic TP HS [facility] Docusate Sodium (Colace -) 100 mg PO DAILY [facility] Ferrous Sulfate (Feosol) 300 mg GT DAILY [facility] Piperacillin Sod/Tazobactam (Sod 2.25 gm/ Dextrose) 50 mls @ 100 mls/hr IVPB Q8H-IV [facility]; Protocol Last Admin: 02/18/18 02:58 Dose: 100 mls/hr Vancomycin HCl 1,000 mg/ (Dextrose) 250 mls @ 200 mls/hr IVPB Q24H [facility]; Protocol Insulin Aspart (Novolog Vial Sliding Scale -) 1 vial SQ ACHS [facility]; Protocol Last Admin: 02/17/18 22:46 Dose: 4 units Lactobacillus Acidophilus (Bacid -) 1 tab GT DAILY [facility] Levothyroxine Sodium (Synthroid -) 37.5 mcg PEG DAILY@0700 [facility] Last Admin: 02/18/18 07:00 Dose: 37.5 mcg Methylprednisolone Sodium Succinate (Solu-Medrol -) 40 mg IVPUSH DAILY [facility] Mupirocin (Bactroban Ointment (For Decolonization) -) 1 applic NS BID [facility] Stop: 02/22/18 09:59 Oxybutynin Chloride (Ditropan -) 5 mg NGT BID [facility] Last Admin: 02/17/18 22:45 Dose: 5 mg Pantoprazole Sodium (Protonix Iv) 40 mg IVPUSH DAILY [facility] Sertraline HCl (Zoloft -) 25 mg PO DAILY [facility] Tamsulosin HCl (Flomax -) 0.4 mg PO DAILY@0830 [facility] - Objective Vital Signs: Vital Signs Temperature 98.8 F 02/17/18 20:38 Pulse Rate 57 L 02/17/18 20:38 Respiratory Rate 14 02/18/18 00:54 Blood Pressure 110/47 02/17/18 20:38 O2 Sat by Pulse Oximetry (%) 100 02/17/18 18:29 Constitutional: Yes: Calm Eyes: Yes: Other Neck: Yes: Decreased ROM, Other Cardiovascular: Yes: Murmur (2/6 systolic murmur, RSB-->apex), S1, S2 Gastrointestinal: Yes: Soft, Other (PEG) Genitourinary: No: Anuria Musculoskeletal: Yes: Muscle Weakness Extremities: Yes: Cool Edema: Yes Edema: LLE: Trace, RLE: Trace Peripheral Pulses WNL: Yes Integumentary: Yes: WNL Neurological: Yes: Weakness Psychiatric: Yes: Other (dementia) Labs: CBC, BMP 02/17/18 14:55 02/17/18 08:00 INR, PTT INR 1.13 (0.82-1.09) 02/16/18 22:40 Abnormal Lab Results 02/17/18 02/18/18 02/18/18 00:03 06:00 06:20 RBC Hgb Hct RDW Plt Count Neutrophils % Monocytes % ESR 116 H BUN 146 H* Creatinine 2.4 H Random Glucose 237 H Calcium 8.2 L AST Alkaline Phosphatase 120 H D C-Reactive Protein 10.6 H Total Protein 6.0 L Albumin 2.0 L Serum Folate Crossmatch See Detail 02/18/18 02/18/18 02/19/18 06:30 18:00 06:35 RBC 2.74 L Hgb 7.9 L Hct 23.6 L RDW 19.5 H Plt Count 130 L Neutrophils % 87.0 H D Monocytes % 1.4 L D ESR BUN 151 H* Creatinine 2.6 H Random Glucose 280 H Calcium 8.2 L AST 43 H D Alkaline Phosphatase 130 H C-Reactive Protein Total Protein 5.8 L Albumin 1.9 L Serum Folate 19 H Crossmatch 02/19/18 06:35 RBC 2.30 L Hgb 6.8 L* D Hct 19.7 L D RDW 19.7 H Plt Count 125 L Neutrophils % Monocytes % ESR BUN Creatinine Random Glucose Calcium AST Alkaline Phosphatase C-Reactive Protein Total Protein Albumin Serum Folate Crossmatch - ....Imaging Chest X-ray: Image Reviewed (mild pervascular abnormalities (improved)) EKG: Image Reviewed (NSR) Problem List - Problems (1) Anemia Assessment/Plan: s/p 4 U PRBCs; Hb improved from 5.7 to 7.9. Maintain hydration. F/u Hb serially; stool quaiac. Code(s): D64.9 - ANEMIA, UNSPECIFIED Qualifiers: Anemia type: due to chronic kidney disease Chronic kidney disease stage: unspecified stage Qualified Code(s): N18.9 - Chronic kidney disease, unspecified; D63.1 - Anemia in chronic kidney disease (2) Chronic kidney disease, stage 3 Code(s): N18.3 - CHRONIC KIDNEY DISEASE, STAGE 3 (MODERATE) (3) Chronic respiratory failure Code(s): J96.10 - CHRONIC RESPIRATORY FAILURE, UNSP W HYPOXIA OR HYPERCAPNIA Qualifiers: Respiratory failure complication: unspecified whether with hypoxia or hypercapnia Qualified Code(s): J96.10 - Chronic respiratory failure, unspecified whether with hypoxia or hypercapnia (4) Hematuria Code(s): R31.9 - HEMATURIA, UNSPECIFIED (5) Hypotension Code(s): I95.9 - HYPOTENSION, UNSPECIFIED (6) PAF (paroxysmal atrial fibrillation) Code(s): I48.0 - PAROXYSMAL ATRIAL FIBRILLATION (7) S/P percutaneous endoscopic gastrostomy (PEG) tube placement Code(s): Z93.1 - GASTROSTOMY STATUS (8) Tracheostomy dependent Code(s): Z93.0 - TRACHEOSTOMY STATUS (9) Acute on chronic diastolic CHF (congestive heart failure) Code(s): I50.33 - ACUTE ON CHRONIC DIASTOLIC (CONGESTIVE) HEART FAILURE (10) Sinus bradycardia Code(s): R00.1 - BRADYCARDIA, UNSPECIFIED (11) TBI (traumatic brain injury) Code(s): S06.9X9A - UNSP INTRACRANIAL INJURY W LOC OF UNSP DURATION, INIT Qualifiers: Encounter type: sequela Loss of consciousness presence/duration: with LOC of unspecified duration Qualified Code(s): S06.9X9S - Unspecified intracranial injury with loss of consciousness of unspecified duration, sequela (12) Severe mitral regurgitation Code(s): I34.0 - NONRHEUMATIC MITRAL (VALVE) INSUFFICIENCY
--- NOTE | 2018-02-18 09:47 | CONSULT ---
Consult Consult Specialty:: Hematology Reason for Consultation:: Anemia - History of Present Illness History of Present Illness: 87 year old man with a significant past medical history of TBI due to fall (s/p neck (C4,5, and 6)/back surgery, BPH, ESBL proteus UTI, ventilator-dependence via tracheotomy, PEG tube feeding, frequent pneumonia, A-fib, CHF, DM, dementia , CKD stage III, nonverbal, quadriplegia, legally blind and deaf, who presents to the emergency department from [facility]. Hematology consulted for anemia. 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) Cardio/Vascular: Yes: AFIB, CHF, HTN Pulmonary: Yes: Other (s/p Tach, vent dependent) Renal/: Yes: Renal Failure Psych: Yes: Other Endocrine: Yes: Diabetes Mellitus - Alcohol/Substance Use Hx Alcohol Use: No - Smoking History Smoking history: Never smoked Have you smoked in the past 12 months: No Home Medications - Allergies Allergies/Adverse Reactions: Allergies Allergy/AdvReac Type Severity Reaction Status Date / Time No Known Allergies Allergy Verified 02/16/18 22:30 - Home Medications Home Medications: Ambulatory Orders Acetaminophen [Tylenol] 650 mg PO Q6H PRN 01/21/18 Bacitracin - [Bacitracin Topical Ointment -] 1 applic TP TID 01/21/18 Baclofen 10 mg GT Q8H 01/21/18 Balsam Zabrina/[place] Oil [Venelex Ointment] 1 applic TP BID 01/21/18 Docusate Sodium [Colace -] 100 mg GT ASDIR 01/21/18 Ferrous Sulfate [Feosol] 300 mg GT DAILY 01/21/18 Glycopyrrolate/Formoterol Fum [Bevespi Aerosphere Inhaler] 0 gm IH BID 01/21/18 Heparin - 5,000 unit SQ BID 01/21/18 Hypromellose 0.5% Opth Soln [Artificial Tears] 2 drop OU BID 01/21/18 Insulin Glargine,Hum.rec.anlog [Lantus Solostar PEN -] 9 units SQ HS 01/21/18 Insulin Lispro [Humalog] 0 unit SQ Q6H 01/21/18 L.acidoph,Paracasei, B.lactis [Probiotic] 1 each GT DAILY 01/21/18 Lanolin/Mineral Oil [Eucerin Original Lotion] 1 applic TP Q6H 01/21/18 Levothyroxine Sodium [Synthroid] 37.5 mcg GT BID 01/21/18 Oxybutynin Chloride 5 mg GT BID 01/21/18 Ranitidine [Zantac -] 150 mg GT DAILY 01/21/18 Sertraline HCl [Zoloft] 25 mg GT DAILY 01/21/18 Silver Sulfadiazine 1% Top Cr [Silvadene -] 1 applic TP DAILY 01/21/18 Simethicone 40 mg GT Q6H 01/21/18 Simvastatin 20 mg GT DAILY 01/21/18 Tamsulosin HCl 0.4 mg GT DAILY 01/21/18 Zinc Oxide 1 applic TP BID 01/21/18 Levothyroxine [Synthroid -] 37.5 mcg PEG DAILY@0700 tablet 02/08/18 Sodium Chloride Nasal [place] [[place] Nasal [place] -] 2 spray NS TID spray Aspirin [ASA -] 81 mg PO DAILY #30 tab.chew 02/09/18 Furosemide Oral Solution [Lasix Oral Solution -] 40 mg GT BID #300 udc 02/09/18 Nut.tx.imp.renal Fxn,Lac-Reduc [Nepro Carb Steady] 1,000 ml PO DAILY #1000 ml Potassium Chloride 40 meq GT DAILY #40 meq 02/09/18 Review of Systems Findings/Remarks: ROS unobtainable due to pts condition . Physical Exam Vital Signs: Vital Signs Temperature 97.9 F 02/18/18 02:00 Pulse Rate 65 02/18/18 02:00 Respiratory Rate 14 02/18/18 02:00 Blood Pressure 118/52 02/18/18 02:00 O2 Sat by Pulse Oximetry (%) 100 02/17/18 18:29 Constitutional: Yes: Mild Distress Eyes: Yes: Conjunctiva Clear HENT: Yes: Other (vented) Cardiovascular: Yes: Tachycardia Respiratory: Yes: Other (vent-dependant) Gastrointestinal: Yes: Soft Labs: CBC, BMP 02/17/18 14:55 02/17/18 08:00 Assessment/Plan Normocytic anemia: reviewed GI note. multifactorial -/CKD/acute illness/age related f/u screening anemia labs for supportive transfusions to maintain around 8 to consider JAVED in the setting of CKD
[2018-02-18] MEDS: DOCUSATE SODIUM 100 MG CAPSULE (FP) PO SCH (09:50)
[2018-02-18] MEDS: FERROUS SO4 300 MG/5 ML ORAL SOLN UNIT DOSE CUPS GT SCH (09:50)
[2018-02-18] MEDS: TAMSULOSIN HCL 0.4 MG CAP.ER.24H (FP) PO SCH (09:51)
[2018-02-18] MEDS: OXYBUTYNIN CHLORIDE 5 MG TABLET NGT SCH ×2 (09:51→23:12)
[2018-02-18] MEDS: methylPREDNISolone NA SUCC 40 MG/1 ML VIAL IVPUSH SCH (09:52)
[2018-02-18] MEDS: SERTRALINE HCL 25 MG TABLET (FP) PO SCH (09:52)
[2018-02-18] MEDS: PANTOPRAZOLE SODIUM 40 MG VIAL IVPUSH SCH (09:54)
[2018-02-18] MEDS: LACTOBACILLUS ACIDOPHILUS 1 TABLET GT SCH (10:02)
[2018-02-18 10:45] LABS: BLOOD UREA NITROGEN 146 mg/dL (7-18)
[2018-02-18] MEDS: ARTIFICIAL TEARS (POLYVINYL ALCOHOL 1.4%) OPTH DROPS OU SCH ×2 (11:00→23:11)
--- NOTE | 2018-02-18 11:46 | PN ---
Progress Note, Physician History of Present Illness: non verbal still on vent received 4 units of prbc - Current Medication List Current Medications: Active Medications Acetaminophen (Tylenol -) 650 mg PO Q4H PRN PRN Reason: FEVER Artificial Tears (Artificial Tears) 2 drop OU BID [facility] Last Admin: 02/17/18 22:57 Dose: 2 drop Atorvastatin Calcium (Lipitor -) 10 mg GT HS [facility] Last Admin: 02/17/18 22:45 Dose: 10 mg Bacitracin (Bacitracin -) 1 applic TP TID [facility] Last Admin: 02/18/18 06:10 Dose: 1 applic Chlorhexidine Gluconate (Hibiclens For Decolonization -) 1 applic TP HS [facility] Docusate Sodium (Colace -) 100 mg PO DAILY [facility] Last Admin: 02/18/18 09:50 Dose: 100 mg Ferrous Sulfate (Feosol) 300 mg GT DAILY [facility] Last Admin: 02/18/18 09:50 Dose: 300 mg Piperacillin Sod/Tazobactam (Sod 2.25 gm/ Dextrose) 50 mls @ 100 mls/hr IVPB Q8H-IV [facility]; Protocol Last Admin: 02/18/18 09:52 Dose: 100 mls/hr Vancomycin HCl 1,000 mg/ (Dextrose) 250 mls @ 200 mls/hr IVPB Q24H [facility]; Protocol Insulin Aspart (Novolog Vial Sliding Scale -) 1 vial SQ ACHS [facility]; Protocol Last Admin: 02/18/18 08:00 Dose: 4 units Lactobacillus Acidophilus (Bacid -) 1 tab GT DAILY [facility] Last Admin: 02/18/18 10:02 Dose: 1 tab Levothyroxine Sodium (Synthroid -) 37.5 mcg PEG DAILY@0700 [facility] Last Admin: 02/18/18 07:00 Dose: 37.5 mcg Methylprednisolone Sodium Succinate (Solu-Medrol -) 40 mg IVPUSH DAILY [facility] Last Admin: 02/18/18 09:52 Dose: 40 mg Mupirocin (Bactroban Ointment (For Decolonization) -) 1 applic NS BID [facility] Stop: 02/22/18 09:59 Oxybutynin Chloride (Ditropan -) 5 mg NGT BID [facility] Last Admin: 02/18/18 09:51 Dose: 5 mg Pantoprazole Sodium (Protonix Iv) 40 mg IVPUSH DAILY [facility] Last Admin: 02/18/18 09:54 Dose: 40 mg Sertraline HCl (Zoloft -) 25 mg PO DAILY [facility] Last Admin: 02/18/18 09:52 Dose: 25 mg Tamsulosin HCl (Flomax -) 0.4 mg PO DAILY@0830 [facility] Last Admin: 02/18/18 09:51 Dose: Not Given - Objective Vital Signs: Vital Signs Temperature 97.9 F 02/18/18 02:00 Pulse Rate 65 02/18/18 02:00 Respiratory Rate 14 02/18/18 08:15 Blood Pressure 118/52 02/18/18 02:00 O2 Sat by Pulse Oximetry (%) 100 02/17/18 18:29 Constitutional: Yes: No Distress Respiratory: Yes: Mechanically Ventilated Gastrointestinal: Yes: Normal Bowel Sounds, Other (peg) Musculoskeletal: Yes: WNL Extremities: Yes: WNL Neurological: Yes: Other Labs: CBC, BMP 02/18/18 06:00 02/18/18 06:20 INR, PTT INR 1.13 (0.82-1.09) 02/16/18 22:40 Assessment/Plan Problem List - Problems (1) Anemia Code(s): D64.9 - ANEMIA, UNSPECIFIED (2) Chronic kidney disease, stage 3 Code(s): N18.3 - CHRONIC KIDNEY DISEASE, STAGE 3 (MODERATE) (3) Chronic respiratory failure Code(s): J96.10 - CHRONIC RESPIRATORY FAILURE, UNSP W HYPOXIA OR HYPERCAPNIA Qualifiers: Respiratory failure complication: unspecified whether with hypoxia or hypercapnia Qualified Code(s): J96.10 - Chronic respiratory failure, unspecified whether with hypoxia or hypercapnia (4) PAF (paroxysmal atrial fibrillation) Code(s): I48.0 - PAROXYSMAL ATRIAL FIBRILLATION (5) Renal failure Code(s): N19 - UNSPECIFIED KIDNEY FAILURE Qualifiers: Renal failure chronicity: unspecified chronicity Qualified Code(s): N19 - Unspecified kidney failure (6) Diabetes Code(s): E11.9 - TYPE 2 DIABETES MELLITUS WITHOUT COMPLICATIONS (7) TBI (traumatic brain injury) Code(s): S06.9X9A - UNSP INTRACRANIAL INJURY W LOC OF UNSP DURATION, INIT (8) Ktlzy-yk-vxlyynt kidney injury Code(s): N17.9 - ACUTE KIDNEY FAILURE, UNSPECIFIED; N18.9 - CHRONIC KIDNEY DISEASE, UNSPECIFIED (9) Qzpwl-ap-aqeifnz renal failure Code(s): N17.9 - ACUTE KIDNEY FAILURE, UNSPECIFIED; N18.9 - CHRONIC KIDNEY DISEASE, UNSPECIFIED (10) Hypotension Code(s): I95.9 - HYPOTENSION, UNSPECIFIED (11) Hypotension Code(s): I95.9 - HYPOTENSION, UNSPECIFIED I plan continue abx for now hydration monitor blood levels rest as per the team
--- NOTE | 2018-02-18 11:53 | PN ---
Progress Note (short form) - Note Progress Note: Non-verbal on AC Mode of vent, 28% FiO2. NO acute events documented overnight. Received 4 units of pRBCs yesterday. Intake & Output 02/15/18 02/16/18 02/17/18 02/18/18 23:59 23:59 23:59 23:59 Intake Total 0 950 Output Total 1300 Balance -1300 950 Weight 143 lb 12.8 oz 143 lb 12.8 oz 151 lb Last Vital Signs Temp Pulse Resp BP Pulse Ox 97.9 F 65 14 118/52 100 02/18/18 02:00 02/18/18 02:00 02/18/18 08:15 02/18/18 02:00 02/17/18 18:29 Active Medications Acetaminophen (Tylenol -) 650 mg PO Q4H PRN PRN Reason: FEVER Artificial Tears (Artificial Tears) 2 drop OU BID [facility] Last Admin: 02/18/18 11:00 Dose: 2 drop Atorvastatin Calcium (Lipitor -) 10 mg GT HS [facility] Last Admin: 02/17/18 22:45 Dose: 10 mg Bacitracin (Bacitracin -) 1 applic TP TID [facility] Last Admin: 02/18/18 06:10 Dose: 1 applic Chlorhexidine Gluconate (Hibiclens For Decolonization -) 1 applic TP HS [facility] Docusate Sodium (Colace -) 100 mg PO DAILY [facility] Last Admin: 02/18/18 09:50 Dose: 100 mg Ferrous Sulfate (Feosol) 300 mg GT DAILY [facility] Last Admin: 02/18/18 09:50 Dose: 300 mg Piperacillin Sod/Tazobactam (Sod 2.25 gm/ Dextrose) 50 mls @ 100 mls/hr IVPB Q8H-IV [facility]; Protocol Last Admin: 02/18/18 09:52 Dose: 100 mls/hr Insulin Aspart (Novolog Vial Sliding Scale -) 1 vial SQ ACHS [facility]; Protocol Last Admin: 02/18/18 11:49 Dose: 4 units Lactobacillus Acidophilus (Bacid -) 1 tab GT DAILY [facility] Last Admin: 02/18/18 10:02 Dose: 1 tab Levothyroxine Sodium (Synthroid -) 37.5 mcg PEG DAILY@0700 [facility] Last Admin: 02/18/18 07:00 Dose: 37.5 mcg Methylprednisolone Sodium Succinate (Solu-Medrol -) 40 mg IVPUSH DAILY [facility] Last Admin: 02/18/18 09:52 Dose: 40 mg Mupirocin (Bactroban Ointment (For Decolonization) -) 1 applic NS BID [facility] Stop: 02/22/18 09:59 Oxybutynin Chloride (Ditropan -) 5 mg NGT BID [facility] Last Admin: 02/18/18 09:51 Dose: 5 mg Pantoprazole Sodium (Protonix Iv) 40 mg IVPUSH DAILY [facility] Last Admin: 02/18/18 09:54 Dose: 40 mg Sertraline HCl (Zoloft -) 25 mg PO DAILY [facility] Last Admin: 02/18/18 09:52 Dose: 25 mg Tamsulosin HCl (Flomax -) 0.4 mg PO DAILY@0830 [facility] Last Admin: 02/18/18 09:51 Dose: Not Given Eyes: Yes: (-) Icterus HENT: Yes: Trach intact Neck: Yes: Trach intact, Trachea Midline Cardiovascular: Yes: WNL, Regular Rate and Rhythm Respiratory: Yes: Diminished, Mechanically Ventilated Gastrointestinal: Yes: WNL, Normal Bowel Sounds Genitourinary: Yes: WNL Musculoskeletal: Yes: WNL Extremities: Yes: WNL Edema: No Integumentary: Yes: WNL Neurological: Yes: WNL, non-verbal ...Motor Strength: WNL Labs: Laboratory Results - last 24 hr 02/17/18 02/17/18 02/17/18 00:03 08:00 08:00 WBC RBC Hgb Hct MCV MCH MCHC RDW Plt Count MPV Absolute Neuts (auto) Neutrophils % Lymphocytes % Monocytes % Eosinophils % Basophils % Nucleated RBC % ESR Sodium Potassium Chloride Carbon Dioxide Anion Gap BUN Creatinine Creat Clearance w eGFR POC Glucometer Random Glucose Calcium Magnesium Iron 44 TIBC 147 L Iron Saturation 30 Total Bilirubin AST ALT Alkaline Phosphatase C-Reactive Protein 10.4 H Total Protein Albumin Vitamin B12 Serum Folate Blood Type O POSITIVE Antibody Screen Negative Crossmatch See Detail 02/17/18 02/17/18 02/17/18 10:10 13:35 14:55 WBC 6.6 RBC 2.11 L Hgb 5.9 L* D Hct 17.4 L D MCV 82.2 MCH 27.7 MCHC 33.8 RDW 20.5 H Plt Count 123 L MPV 9.5 Absolute Neuts (auto) Neutrophils % Lymphocytes % Monocytes % Eosinophils % Basophils % Nucleated RBC % ESR > 140 H Sodium Potassium Chloride Carbon Dioxide Anion Gap BUN Creatinine Creat Clearance w eGFR POC Glucometer 165.89298 Random Glucose Calcium Magnesium Iron TIBC Iron Saturation Total Bilirubin AST ALT Alkaline Phosphatase C-Reactive Protein Total Protein Albumin Vitamin B12 Serum Folate Blood Type Antibody Screen Crossmatch 02/17/18 02/17/18 02/18/18 17:16 22:42 06:00 WBC 5.3 RBC 2.56 L D Hgb 7.5 L D Hct 21.6 L D MCV 84.5 MCH 29.4 MCHC 34.8 RDW 19.5 H Plt Count 124 L MPV 10.4 Absolute Neuts (auto) 3.7 Neutrophils % 69.9 Lymphocytes % 18.7 D Monocytes % 9.0 Eosinophils % 2.0 D Basophils % 0.4 Nucleated RBC % 0 ESR Sodium Potassium Chloride Carbon Dioxide Anion Gap BUN Creatinine Creat Clearance w eGFR POC Glucometer [phone] Random Glucose Calcium Magnesium Iron TIBC Iron Saturation Total Bilirubin AST ALT Alkaline Phosphatase C-Reactive Protein Total Protein Albumin Vitamin B12 Serum Folate Blood Type Antibody Screen Crossmatch 02/18/18 02/18/18 02/18/18 06:15 06:20 06:30 WBC RBC Hgb Hct MCV MCH MCHC RDW Plt Count MPV Absolute Neuts (auto) Neutrophils % Lymphocytes % Monocytes % Eosinophils % Basophils % Nucleated RBC % ESR Sodium 139 Potassium 3.7 Chloride 102 Carbon Dioxide 25 Anion Gap 12 BUN 146 H* Creatinine 2.4 H Creat Clearance w eGFR 25.86 POC Glucometer 268 Random Glucose 237 H Calcium 8.2 L Magnesium 2.4 Iron TIBC Iron Saturation Total Bilirubin 0.3 D AST 32 D ALT 43 Alkaline Phosphatase 120 H D C-Reactive Protein 10.6 H Total Protein 6.0 L Albumin 2.0 L Vitamin B12 705 Serum Folate 19 H Blood Type Antibody Screen Crossmatch 02/18/18 10:47 WBC RBC Hgb Hct MCV MCH MCHC RDW Plt Count MPV Absolute Neuts (auto) Neutrophils % Lymphocytes % Monocytes % Eosinophils % Basophils % Nucleated RBC % ESR Sodium Potassium Chloride Carbon Dioxide Anion Gap BUN Creatinine Creat Clearance w eGFR POC Glucometer 298 Random Glucose Calcium Magnesium Iron TIBC Iron Saturation Total Bilirubin AST ALT Alkaline Phosphatase C-Reactive Protein Total Protein Albumin Vitamin B12 Serum Folate Blood Type Antibody Screen Crossmatch Problem List - Problems (1) Anemia Code(s): D64.9 - ANEMIA, UNSPECIFIED (2) Chronic kidney disease, stage 3 Code(s): N18.3 - CHRONIC KIDNEY DISEASE, STAGE 3 (MODERATE) (3) Chronic respiratory failure Code(s): J96.10 - CHRONIC RESPIRATORY FAILURE, UNSP W HYPOXIA OR HYPERCAPNIA Qualifiers: Respiratory failure complication: unspecified whether with hypoxia or hypercapnia Qualified Code(s): J96.10 - Chronic respiratory failure, unspecified whether with hypoxia or hypercapnia (4) PAF (paroxysmal atrial fibrillation) Code(s): I48.0 - PAROXYSMAL ATRIAL FIBRILLATION (5) Renal failure Code(s): N19 - UNSPECIFIED KIDNEY FAILURE Qualifiers: Renal failure chronicity: unspecified chronicity Qualified Code(s): N19 - Unspecified kidney failure (6) Diabetes Code(s): E11.9 - TYPE 2 DIABETES MELLITUS WITHOUT COMPLICATIONS (7) TBI (traumatic brain injury) Code(s): S06.9X9A - UNSP INTRACRANIAL INJURY W LOC OF UNSP DURATION, INIT (8) Mnhcn-mo-jryyqay kidney injury Code(s): N17.9 - ACUTE KIDNEY FAILURE, UNSPECIFIED; N18.9 - CHRONIC KIDNEY DISEASE, UNSPECIFIED (9) Whovu-mc-ckrqzpo renal failure Code(s): N17.9 - ACUTE KIDNEY FAILURE, UNSPECIFIED; N18.9 - CHRONIC KIDNEY DISEASE, UNSPECIFIED (10) Hypotension Code(s): I95.9 - HYPOTENSION, UNSPECIFIED (11) Hypotension Code(s): I95.9 - HYPOTENSION, UNSPECIFIED IMP CHRONIC RESPIRATORY FAILURE VENT DEPENDENT TBI S/P FALL QUADRAPLEGIA SECONDARY TO C4.5,6 FX SEVERE ANEMIA ACUTE ON CHRONIC KIDNEY DISEASE HYPOTENSION SECONDARY TO BLOOD LOSS,DEHYDRATION AFIB DM DEMENTIA H/O PNEUMONIA PLAN IVF NORMAL TRANSFUSION THRESHOLDS VENT SUPPORT ON AC MODE MONITOR H+H CAN LIKELY D/C MEDROL DR WATTS
--- NOTE | 2018-02-18 12:15 | PN ---
Physical Exam: SUBJECTIVE: Patient seen and examined at the bedside. Non verbal at baseline. OBJECTIVE: Vital Signs Period Temp Pulse Resp BP Sys/Wills Pulse Ox Last 24 Hr 97.9 F-98.9 F 54-69 14-14 110-120/45-55 100-100 GENERAL: The patient is awake, alert, non verbal at baseline HEAD: Normal with no signs of trauma. EYES: PERRL, extraocular movements intact, sclera anicteric, conjunctiva clear. No ptosis. ENT: Ears normal, nares patent, oropharynx clear without exudates, moist mucous membranes. NECK: trach tube, no further hemoptysis LUNGS: Breath sounds equal, clear to auscultation anteriorly HEART: Regular rate and rhythm, sinus bradycardia ABDOMEN: peg tube NEUROLOGICAL: Non verbal at baseline PSYCH: Normal mood, normal affect. Laboratory Results - last 24 hr 02/17/18 02/17/18 02/17/18 00:03 08:00 08:00 WBC RBC Hgb Hct MCV MCH MCHC RDW Plt Count MPV Absolute Neuts (auto) Neutrophils % Lymphocytes % Monocytes % Eosinophils % Basophils % Nucleated RBC % Sodium Potassium Chloride Carbon Dioxide Anion Gap BUN Creatinine Creat Clearance w eGFR POC Glucometer Random Glucose Calcium Magnesium Iron 44 TIBC 147 L Iron Saturation 30 Total Bilirubin AST ALT Alkaline Phosphatase C-Reactive Protein 10.4 H Total Protein Albumin Vitamin B12 Serum Folate Blood Type O POSITIVE Antibody Screen Negative Crossmatch See Detail 02/17/18 02/17/18 02/17/18 13:35 14:55 17:16 WBC 6.6 RBC 2.11 L Hgb 5.9 L* D Hct 17.4 L D MCV 82.2 MCH 27.7 MCHC 33.8 RDW 20.5 H Plt Count 123 L MPV 9.5 Absolute Neuts (auto) Neutrophils % Lymphocytes % Monocytes % Eosinophils % Basophils % Nucleated RBC % Sodium Potassium Chloride Carbon Dioxide Anion Gap BUN Creatinine Creat Clearance w eGFR POC Glucometer 165.60421 189.42122 Random Glucose Calcium Magnesium Iron TIBC Iron Saturation Total Bilirubin AST ALT Alkaline Phosphatase C-Reactive Protein Total Protein Albumin Vitamin B12 Serum Folate Blood Type Antibody Screen Crossmatch 02/17/18 02/18/18 02/18/18 22:42 06:00 06:15 WBC 5.3 RBC 2.56 L D Hgb 7.5 L D Hct 21.6 L D MCV 84.5 MCH 29.4 MCHC 34.8 RDW 19.5 H Plt Count 124 L MPV 10.4 Absolute Neuts (auto) 3.7 Neutrophils % 69.9 Lymphocytes % 18.7 D Monocytes % 9.0 Eosinophils % 2.0 D Basophils % 0.4 Nucleated RBC % 0 Sodium Potassium Chloride Carbon Dioxide Anion Gap BUN Creatinine Creat Clearance w eGFR POC Glucometer 299 268 Random Glucose Calcium Magnesium Iron TIBC Iron Saturation Total Bilirubin AST ALT Alkaline Phosphatase C-Reactive Protein Total Protein Albumin Vitamin B12 Serum Folate Blood Type Antibody Screen Crossmatch 02/18/18 02/18/18 02/18/18 06:20 06:30 10:47 WBC RBC Hgb Hct MCV MCH MCHC RDW Plt Count MPV Absolute Neuts (auto) Neutrophils % Lymphocytes % Monocytes % Eosinophils % Basophils % Nucleated RBC % Sodium 139 Potassium 3.7 Chloride 102 Carbon Dioxide 25 Anion Gap 12 BUN 146 H* Creatinine 2.4 H Creat Clearance w eGFR 25.86 POC Glucometer 298 Random Glucose 237 H Calcium 8.2 L Magnesium 2.4 Iron TIBC Iron Saturation Total Bilirubin 0.3 D AST 32 D ALT 43 Alkaline Phosphatase 120 H D C-Reactive Protein 10.6 H Total Protein 6.0 L Albumin 2.0 L Vitamin B12 705 Serum Folate 19 H Blood Type Antibody Screen Crossmatch Active Medications Generic Name Dose Route Start Last Admin Trade Name Freq PRN Reason Stop Dose Admin Acetaminophen 650 mg 02/17/18 17:28 Tylenol - PO Q4H PRN FEVER Artificial Tears 2 drop 02/17/18 22:00 02/18/18 11:00 Artificial Tears OU 2 drop BID [facility] Administration Atorvastatin Calcium 10 mg 02/17/18 22:00 02/17/18 22:45 Lipitor - GT 10 mg HS [facility] Administration Bacitracin 1 applic 02/17/18 22:00 02/18/18 06:10 Bacitracin - TP 1 applic TID [facility] Administration Chlorhexidine Gluconate 1 applic 02/17/18 22:00 Hibiclens For Decolonization - TP HS [facility] Docusate Sodium 100 mg 02/18/18 10:00 02/18/18 09:50 Colace - PO 100 mg DAILY [facility] Administration Ferrous Sulfate 300 mg 02/18/18 10:00 02/18/18 09:50 Feosol GT 300 mg DAILY [facility] Administration Piperacillin Sod/Tazobactam 50 mls @ 100 mls/hr 02/18/18 02:00 02/18/18 09:52 Sod 2.25 gm/ Dextrose IVPB 100 mls/hr Q8H-IV [facility] Administration Protocol Insulin Aspart 1 vial 02/17/18 22:00 02/18/18 11:49 Novolog Vial Sliding Scale - SQ 4 units ACHS [facility] Administration Protocol Lactobacillus Acidophilus 1 tab 02/18/18 10:00 02/18/18 10:02 Bacid - GT 1 tab DAILY [facility] Administration Levothyroxine Sodium 37.5 mcg 02/18/18 07:00 02/18/18 07:00 Synthroid - PEG 37.5 mcg DAILY@0700 [facility] Administration Methylprednisolone Sodium Succinate 40 mg 02/18/18 10:00 02/18/18 09:52 Solu-Medrol - IVPUSH 40 mg DAILY [facility] Administration Mupirocin 1 applic 02/17/18 22:00 Bactroban Ointment (For Decolonization) - NS 02/22/18 09:59 BID [facility] Oxybutynin Chloride 5 mg 02/17/18 22:00 02/18/18 09:51 Ditropan - NGT 5 mg BID [facility] Administration Pantoprazole Sodium 40 mg 02/18/18 10:00 02/18/18 09:54 Protonix Iv IVPUSH 40 mg DAILY [facility] Administration Sertraline HCl 25 mg 02/17/18 17:27 02/18/18 09:52 Zoloft - PO 25 mg DAILY [facility] Administration Tamsulosin HCl 0.4 mg 02/18/18 08:30 02/18/18 09:51 Flomax - PO Not Given DAILY@0830 [facility] ASSESSMENT/PLAN: Patient is an 87 year old male with a significant past medical history of diastolic heart failure, NIDDM, CKD, and 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 Admitted on 02/17/18 from [facility] chronic respiratory failure and severe anemia with a hmg of 5.5 and hypotension. Recently admitted here between 01/21 to 02/08/18 for hemoptysis around trach site and found to have Proteus ESBL UTI. He received 1 unit of prbc and 2 doses of venofer on last admission. He was also treated with a 14 day course of Ertapenem and discharged to [facility]. Pulmonary Pneumonia as per chest xray on 02/16. On Vanco and Zosyn per ID. Monitor respiratory status Concern for aspiration pneumonia. Head of bed elevated during feeds Chronic respiratory failure, ventilator dependent oxygen requirements at baseline 30% FiO2 Card: Acute on chronic diastolic heart failure, hold diuretics, monitor for fluid overlead Prox afib, well controlled. not on any anticoag secondary to bleeding issues Paroxysmal afib, not on anticoag secondary to anemia Cardiology following Heme: Anemia, acute on chronic Severe anemia on presentation with hmg of 5.5 in the setting of renal disease. No active bleeding noted on gastric lavage, no bleeding around trach site, stool for occult blood negative x 3. Hematology/onc consult Renal: KATERIN on CKD, creat above baseline. Hold Lasix Endocrine: NIDDM, chronic On SS, BGMs Hypothyroidism On Synthroid Functional quadraplegia, dependent on others for ADLs Large sacral wound, DTI FEN no ivf monitor electrolytes nepro feeds at goal rate No anticoagulation secondary to bleeding issues Protonix Visit type - Emergency Visit Emergency Visit: Yes ED Registration Date: 02/17/18 Care time: The patient presented to the Emergency Department on the above date and was hospitalized for further evaluation of their emergent condition. - New Patient This patient is new to me today: No - Critical Care Critical Care patient: No - Discharge Referral Referred to [facility] No
--- NOTE | 2018-02-18 12:37 | PN ---
Progress Note, Physician History of Present Illness: Patient is an 87 year old man with a significant past medical history of TBI due to fall (s/p neck (C4,5, and 6)/ back surgery, BPH, ESBL Proteus UTI, ventilator-dependence via tracheotomy, PEG tube feeding, frequent pneumonia, A- fib, CHF, DM, dementia, CKD stage III, nonverbal, quadriplegia, legally blind and deaf, who presents to the emergency department from [facility] with 3 day history of hypotension. Vital signs iproved sice admission. - Current Medication List Current Medications: Active Medications Acetaminophen (Tylenol -) 650 mg PO Q4H PRN PRN Reason: FEVER Artificial Tears (Artificial Tears) 2 drop OU BID [facility] Last Admin: 02/18/18 11:00 Dose: 2 drop Atorvastatin Calcium (Lipitor -) 10 mg GT HS [facility] Last Admin: 02/17/18 22:45 Dose: 10 mg Bacitracin (Bacitracin -) 1 applic TP TID [facility] Last Admin: 02/18/18 06:10 Dose: 1 applic Chlorhexidine Gluconate (Hibiclens For Decolonization -) 1 applic TP [facility] Docusate Sodium (Colace -) 100 mg PO DAILY [facility] Last Admin: 02/18/18 09:50 Dose: 100 mg Ferrous Sulfate (Feosol) 300 mg GT DAILY [facility] Last Admin: 02/18/18 09:50 Dose: 300 mg Piperacillin Sod/Tazobactam (Sod 2.25 gm/ Dextrose) 50 mls @ 100 mls/hr IVPB Q8H-IV [facility]; Protocol Last Admin: 02/18/18 09:52 Dose: 100 mls/hr Insulin Aspart (Novolog Vial Sliding Scale -) 1 vial SQ ACHS [facility]; Protocol Last Admin: 02/18/18 11:49 Dose: 4 units Lactobacillus Acidophilus (Bacid -) 1 tab GT DAILY [facility] Last Admin: 02/18/18 10:02 Dose: 1 tab Levothyroxine Sodium (Synthroid -) 37.5 mcg PEG DAILY@0700 [facility] Last Admin: 02/18/18 07:00 Dose: 37.5 mcg Methylprednisolone Sodium Succinate (Solu-Medrol -) 40 mg IVPUSH DAILY [facility] Last Admin: 02/18/18 09:52 Dose: 40 mg Mupirocin (Bactroban Ointment (For Decolonization) -) 1 applic NS BID [facility] Stop: 02/22/18 09:59 Oxybutynin Chloride (Ditropan -) 5 mg NGT BID [facility] Last Admin: 02/18/18 09:51 Dose: 5 mg Pantoprazole Sodium (Protonix Iv) 40 mg IVPUSH DAILY [facility] Last Admin: 02/18/18 09:54 Dose: 40 mg Sertraline HCl (Zoloft -) 25 mg PO DAILY [facility] Last Admin: 02/18/18 09:52 Dose: 25 mg Tamsulosin HCl (Flomax -) 0.4 mg PO DAILY@0830 [facility] Last Admin: 02/18/18 09:51 Dose: Not Given - Objective Vital Signs: Vital Signs Temperature 97.9 F 02/18/18 02:00 Pulse Rate 65 02/18/18 02:00 Respiratory Rate 14 02/18/18 12:21 Blood Pressure 118/52 02/18/18 02:00 O2 Sat by Pulse Oximetry (%) 100 02/17/18 18:29 Constitutional: Yes: Calm, Pallor HENT: Yes: Normocephalic Neck: Yes: Trachea Midline Cardiovascular: Yes: S1, S2 Respiratory: Yes: CTA Bilaterally, Diminished, Mechanically Ventilated Gastrointestinal: Yes: Normal Bowel Sounds, Soft Genitourinary: Yes: Childs Present Labs: CBC, BMP 02/18/18 06:00 02/18/18 06:20 INR, PTT INR 1.13 (0.82-1.09) 02/16/18 22:40 Problem List - Problems (1) Acute renal failure Code(s): N17.9 - ACUTE KIDNEY FAILURE, UNSPECIFIED (2) Chronic kidney disease, stage 3 Code(s): N18.3 - CHRONIC KIDNEY DISEASE, STAGE 3 (MODERATE) (3) Anemia Code(s): D64.9 - ANEMIA, UNSPECIFIED Qualifiers: Anemia type: due to chronic kidney disease Chronic kidney disease stage: unspecified stage Qualified Code(s): N18.9 - Chronic kidney disease, unspecified; D63.1 - Anemia in chronic kidney disease (4) Chronic respiratory failure Code(s): J96.10 - CHRONIC RESPIRATORY FAILURE, UNSP W HYPOXIA OR HYPERCAPNIA Qualifiers: Respiratory failure complication: unspecified whether with hypoxia or hypercapnia Qualified Code(s): J96.10 - Chronic respiratory failure, unspecified whether with hypoxia or hypercapnia (5) PAF (paroxysmal atrial fibrillation) Code(s): I48.0 - PAROXYSMAL ATRIAL FIBRILLATION (6) A-fib Code(s): I48.91 - UNSPECIFIED ATRIAL FIBRILLATION (7) 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 Acute renal failure superimposed on CKD. The acute renal dysfunction due to sepsis, altered renal hemodynamics with resultant real hypoperfusion. Some degree of the profoud [place] is steroid dependent. Suggest: Hemodynamic status improved. Respiratory support. PRBC transfusion. ? source of blood loss. IV antibiotics. Will monitor the renal functions with you. Thank you. Will follow with you. Margarita Caban MD
[2018-02-18] MEDS ORDERED: PT OWN MED DRAWER 7, Y5N ONE (15:10)
--- NOTE | 2018-02-18 16:16 | PN ---
Progress Note, Physician History of Present Illness: Clinically the same. No acute events. No stigmata of significant GI bleeding. - Current Medication List Current Medications: Active Medications Acetaminophen (Tylenol -) 650 mg PO Q4H PRN PRN Reason: FEVER Artificial Tears (Artificial Tears) 2 drop OU BID [facility] Last Admin: 02/18/18 11:00 Dose: 2 drop Atorvastatin Calcium (Lipitor -) 10 mg GT HS [facility] Last Admin: 02/17/18 22:45 Dose: 10 mg Bacitracin (Bacitracin -) 1 applic TP TID [facility] Last Admin: 02/18/18 06:10 Dose: 1 applic Chlorhexidine Gluconate (Hibiclens For Decolonization -) 1 applic TP HS [facility] Docusate Sodium (Colace -) 100 mg PO DAILY [facility] Last Admin: 02/18/18 09:50 Dose: 100 mg Ferrous Sulfate (Feosol) 300 mg GT DAILY [facility] Last Admin: 02/18/18 09:50 Dose: 300 mg Piperacillin Sod/Tazobactam (Sod 2.25 gm/ Dextrose) 50 mls @ 100 mls/hr IVPB Q8H-IV [facility]; Protocol Last Admin: 02/18/18 09:52 Dose: 100 mls/hr Insulin Aspart (Novolog Vial Sliding Scale -) 1 vial SQ ACHS [facility]; Protocol Last Admin: 02/18/18 11:49 Dose: 4 units Lactobacillus Acidophilus (Bacid -) 1 tab GT DAILY [facility] Last Admin: 02/18/18 10:02 Dose: 1 tab Levothyroxine Sodium (Synthroid -) 37.5 mcg PEG DAILY@0700 [facility] Last Admin: 02/18/18 07:00 Dose: 37.5 mcg Methylprednisolone Sodium Succinate (Solu-Medrol -) 40 mg IVPUSH DAILY [facility] Last Admin: 02/18/18 09:52 Dose: 40 mg Mupirocin (Bactroban Ointment (For Decolonization) -) 1 applic NS BID [facility] Stop: 02/22/18 09:59 Oxybutynin Chloride (Ditropan -) 5 mg NGT BID [facility] Last Admin: 02/18/18 09:51 Dose: 5 mg Pantoprazole Sodium (Protonix Iv) 40 mg IVPUSH DAILY [facility] Last Admin: 02/18/18 09:54 Dose: 40 mg Sertraline HCl (Zoloft -) 25 mg PO DAILY [facility] Last Admin: 02/18/18 09:52 Dose: 25 mg Tamsulosin HCl (Flomax -) 0.4 mg PO DAILY@0830 [facility] Last Admin: 02/18/18 09:51 Dose: Not Given - Objective Vital Signs: Vital Signs Temperature 98.1 F 02/18/18 14:38 Pulse Rate 73 02/18/18 14:38 Respiratory Rate 14 02/18/18 14:49 Blood Pressure 107/50 02/18/18 14:38 O2 Sat by Pulse Oximetry (%) 100 02/17/18 18:29 Gastrointestinal: Yes: Normal Bowel Sounds, Soft, Other (PEG intact) Labs: CBC, BMP 02/18/18 06:00 02/18/18 06:20 INR, PTT INR 1.13 (0.82-1.09) 02/16/18 22:40 Problem List - Problems (1) Acute renal failure Code(s): N17.9 - ACUTE KIDNEY FAILURE, UNSPECIFIED (2) Anemia Code(s): D64.9 - ANEMIA, UNSPECIFIED Qualifiers: Qualified Code(s): N18.9 - Chronic kidney disease, unspecified; D63.1 - Anemia in chronic kidney disease Assessment/Plan No stigmata of ongoing, or recent GI blood loss. Continue current care. Will monitor.
[2018-02-18 18:43] LABS: BASO % 0.1 % (0-2.0); HEMATOCRIT 23.6 % (35.4-49); HEMOGLOBIN 7.9 GM/dL (11.7-16.9); LYMPH % 11.5 % (8-40); MCHC 33.7 g/dl (32.0-35.9); MEAN CELL VOLUME 86.2 fl (80-96); MEAN PLT VOLUME 10.2 fl (7.5-11.1); MONO % 1.4 % (3.8-10.2); PLATELET COUNT 130 K/MM3 (134-434); RBC 2.74 M/mm3 (4.00-5.60); RDW 19.5 % (11.9-15.9)
[2018-02-18] MEDS ORDERED: INSULIN (LEVEMIR) 100 UNITS/ML UNITS SQ SCH (22:00)
[2018-02-18] MEDS: ATORVASTATIN CA 10 MG TABLET (FP) GT SCH (23:11)
[2018-02-19] MEDS ORDERED: PIPERACILLIN/TAZOBACTAM 2.25 GM VIAL IVPB ONE ×2 (01:42→09:21)
[2018-02-19] MEDS ORDERED: DEXTROSE 5%-WATER - 50 ML IVPB ONE ×2 (01:42→09:21)
[2018-02-19] MEDS: PIPERACILLIN/TAZOB 2.25 GM 2.25 GM in DEXTROSE 5%-WATER - 50 ML IVPB SCH ×3 (02:10→18:00)
[2018-02-19] MEDS: LEVOTHYROXINE NA 25 MCG TABLET (FP) PEG SCH (06:20)
[2018-02-19] MEDS: INSULIN SLIDING SCALE (NOVOLOG) 1 VIAL SQ SCH ×4 (06:23→22:11)
[2018-02-19] MEDS: BACITRACIN 15 GM TUBE TOPICAL OINTMENT TP SCH ×3 (06:25→22:11)
[2018-02-19 07:07] LABS: BASO % 0.2 % (0-2.0); EOS % 0.1 % (0-4.5); HEMATOCRIT 19.7 % (35.4-49); LYMPH % 16.5 % (8-40); MCH 29.7 pg (25.7-33.7); MCHC 34.6 g/dl (32.0-35.9); MEAN PLT VOLUME 10.2 fl (7.5-11.1); MONO % 7.9 % (3.8-10.2); NEUT % 75.3 % (42.8-82.8); PLATELET COUNT 125 K/MM3 (134-434); RDW 19.7 % (11.9-15.9); WHITE BLOOD COUNT 6.1 K/mm3 (4.0-10.0)
[2018-02-19 07:21] LABS: HEMOGLOBIN 6.8 GM/dL (11.7-16.9)
[2018-02-19 07:40] LABS: ALBUMIN 1.9 g/dl (3.4-5.0); ALK PHOS 130 U/L (45-117); ANION GAP 10 (8-16); BILIRUBIN,TOTAL 0.2 mg/dL (0.2-1.0); CALCIUM 8.2 mg/dL (8.5-10.1); CHLORIDE 103 mmol/L (98-107); CO2 27 mmol/L (21-32); CREATININE 2.6 mg/dL (0.7-1.3); GLUCOSE,RANDOM 280 mg/dL (74-106); MAGNESIUM 2.3 mg/dL (1.8-2.4); POTASSIUM 3.7 mmol/L (3.5-5.1); SGOT/AST 43 U/L (15-37); SGPT/ALT 65 U/L (12-78); SODIUM 140 mmol/L (136-145); TOT PROT 5.8 g/dl (6.4-8.2)
[2018-02-19] MEDS ORDERED: PT OWN MED DRAWER 7, Y5N ONE ×3 (07:42→18:07)
[2018-02-19] MEDS ORDERED: INSULIN (LEVEMIR) 100 UNITS/ML UNITS SQ SCH (08:15)
[2018-02-19 08:23] LABS: BLOOD UREA NITROGEN 151 mg/dL (7-18)
[2018-02-19] MEDS: TAMSULOSIN HCL 0.4 MG CAP.ER.24H (FP) PO SCH (08:46)
--- NOTE | 2018-02-19 09:06 | PN ---
Progress Note, Physician History of Present Illness: Clinically the same. Hgb 6.8 this am. No stigmata of GI bleeding. - Current Medication List Current Medications: Active Medications Acetaminophen (Tylenol -) 650 mg PO Q4H PRN PRN Reason: FEVER Artificial Tears (Artificial Tears) 2 drop OU BID [facility] Last Admin: 02/18/18 23:11 Dose: 2 drop Atorvastatin Calcium (Lipitor -) 10 mg GT HS [facility] Last Admin: 02/18/18 23:11 Dose: 10 mg Bacitracin (Bacitracin -) 1 applic TP TID [facility] Last Admin: 02/19/18 06:25 Dose: 1 applic Chlorhexidine Gluconate (Hibiclens For Decolonization -) 1 applic TP [facility] Docusate Sodium (Colace -) 100 mg PO DAILY [facility] Last Admin: 02/18/18 09:50 Dose: 100 mg Ferrous Sulfate (Feosol) 300 mg GT DAILY [facility] Last Admin: 02/18/18 09:50 Dose: 300 mg Piperacillin Sod/Tazobactam (Sod 2.25 gm/ Dextrose) 50 mls @ 100 mls/hr IVPB Q8H-IV [facility]; Protocol Last Admin: 02/19/18 02:10 Dose: 100 mls/hr Insulin Aspart (Novolog Vial Sliding Scale -) 1 vial SQ ACHS [facility]; Protocol Insulin Detemir (Levemir Vial) 15 units SQ HS [facility] Lactobacillus Acidophilus (Bacid -) 1 tab GT DAILY [facility] Last Admin: 02/18/18 10:02 Dose: 1 tab Levothyroxine Sodium (Synthroid -) 37.5 mcg PEG DAILY@0700 [facility] Last Admin: 02/19/18 06:20 Dose: 37.5 mcg Methylprednisolone Sodium Succinate (Solu-Medrol -) 40 mg IVPUSH DAILY [facility] Last Admin: 02/18/18 09:52 Dose: 40 mg Mupirocin (Bactroban Ointment (For Decolonization) -) 1 applic NS BID [facility] Stop: 02/22/18 09:59 Oxybutynin Chloride (Ditropan -) 5 mg NGT BID [facility] Last Admin: 02/18/18 23:12 Dose: 5 mg Pantoprazole Sodium (Protonix Iv) 40 mg IVPUSH DAILY [facility] Last Admin: 02/18/18 09:54 Dose: 40 mg Sertraline HCl (Zoloft -) 25 mg PO DAILY [facility] Last Admin: 02/18/18 09:52 Dose: 25 mg Tamsulosin HCl (Flomax -) 0.4 mg PO DAILY@0830 [facility] Last Admin: 02/19/18 08:46 Dose: 0.4 mg - Objective Vital Signs: Vital Signs Temperature 98.3 F 02/19/18 06:00 Pulse Rate 64 02/19/18 06:00 Respiratory Rate 14 02/19/18 07:51 Blood Pressure 119/54 02/19/18 06:00 O2 Sat by Pulse Oximetry (%) 95 02/19/18 02:11 Gastrointestinal: Yes: Soft. No: Vomiting Labs: CBC, BMP 02/19/18 06:35 02/19/18 06:35 INR, PTT INR 1.13 (0.82-1.09) 02/16/18 22:40 Laboratory Last Values WBC 6.1 K/mm3 (4.0-10.0) 02/19/18 06:35 RBC 2.30 M/mm3 (4.00-5.60) L 02/19/18 06:35 Hgb 6.8 GM/dL (11.7-16.9) L* D 02/19/18 06:35 Hct 19.7 % (35.4-49) L D 02/19/18 06:35 MCV 86.0 fl (80-96) 02/19/18 06:35 MCH 29.7 pg (25.7-33.7) 02/19/18 06:35 MCHC 34.6 g/dl (32.0-35.9) 02/19/18 06:35 RDW 19.7 % (11.9-15.9) H 02/19/18 06:35 Plt Count 125 K/MM3 (134-434) L 02/19/18 06:35 MPV 10.2 fl (7.5-11.1) 02/19/18 06:35 Absolute Neuts (auto) 4.6 # 02/19/18 06:35 Neutrophils % 75.3 % (42.8-82.8) 02/19/18 06:35 Lymphocytes % 16.5 % (8-40) D 02/19/18 06:35 Monocytes % 7.9 % (3.8-10.2) D 02/19/18 06:35 Eosinophils % 0.1 % (0-4.5) D 02/19/18 06:35 Basophils % 0.2 % (0-2.0) 02/19/18 06:35 Nucleated RBC % 0 % (0-0) 02/19/18 06:35 Platelet Estimate Decreased 02/17/18 08:00 Anisocytosis 1+ 02/17/18 08:00 Microcytosis 1+ 02/17/18 08:00 Macrocytosis 1+ 02/17/18 08:00 ESR 116 mm/hr (0-20) H 02/18/18 06:00 Retic Count 1.81 % (0.5-1.5) H 02/17/18 08:00 PT with INR 12.80 SEC (9.7-13.0) 02/16/18 22:40 INR 1.13 (0.82-1.09) 02/16/18 22:40 PTT (Actin FS) 33.2 SECONDS (26.9-34.4) 02/16/18 22:40 Sodium 140 mmol/L (136-145) 02/19/18 06:35 Potassium 3.7 mmol/L (3.5-5.1) 02/19/18 06:35 Chloride 103 mmol/L (98-107) 02/19/18 06:35 Carbon Dioxide 27 mmol/L (21-32) 02/19/18 06:35 Anion Gap 10 (8-16) 02/19/18 06:35 BUN 151 mg/dL (7-18) H* 02/19/18 06:35 Creatinine 2.6 mg/dL (0.7-1.3) H 02/19/18 06:35 Creat Clearance w eGFR 23.58 (>60) 02/19/18 06:35 POC Glucometer 328 UNITS (80-120) 02/19/18 06:23 Random Glucose 280 mg/dL (74-106) H 02/19/18 06:35 Calcium 8.2 mg/dL (8.5-10.1) L 02/19/18 06:35 Magnesium 2.3 mg/dL (1.8-2.4) 02/19/18 06:35 Iron 44 ug/dL (38-169) 02/17/18 08:00 TIBC 147 ug/dL (250-450) L 02/17/18 08:00 Iron Saturation 30 % (15-55) 02/17/18 08:00 Ferritin 245.8 ng/ml (16.4-293.9) 02/17/18 08:00 Total Bilirubin 0.2 mg/dL (0.2-1.0) D 02/19/18 06:35 AST 43 U/L (15-37) H D 02/19/18 06:35 ALT 65 U/L (12-78) D 02/19/18 06:35 Alkaline Phosphatase 130 U/L (45-117) H 02/19/18 06:35 Troponin I < 0.02 ng/ml (0.00-0.05) 02/16/18 22:40 C-Reactive Protein 10.6 MG/DL (0.00-0.3) H 02/18/18 06:20 Total Protein 5.8 g/dl (6.4-8.2) L 02/19/18 06:35 Albumin 1.9 g/dl (3.4-5.0) L 02/19/18 06:35 Vitamin B12 705 pg/ml (180-914) 02/18/18 06:30 Serum Folate 19 ng/ml (3.1-17.5) H 02/18/18 06:30 Urine Color Yellow 02/16/18 23:40 Urine Appearance Slcloudy 02/16/18 23:40 Urine pH 5.0 (5.0-8.0) 02/16/18 23:40 Ur Specific [place] 1.011 (1.001-1.035) 02/16/18 23:40 Urine Protein 2+ (NEGATIVE) H 02/16/18 23:40 Urine Glucose (UA) Negative (NEGATIVE) 02/16/18 23:40 Urine Ketones Negative (NEGATIVE) 02/16/18 23:40 Urine Blood 3+ (NEGATIVE) H 02/16/18 23:40 Urine Nitrite Negative (NEGATIVE) 02/16/18 23:40 Urine Bilirubin Negative (<2.0 mg/dL) 02/16/18 23:40 Urine Urobilinogen Negative mg/dL (0.2-1.0) 02/16/18 23:40 Ur Leukocyte Esterase Negative (NEGATIVE) 02/16/18 23:40 Urine WBC (Auto) 4 /hpf (3-5) 02/16/18 23:40 Urine RBC (Auto) 41 /hpf (0-3) 02/16/18 23:40 Urine Bacteria Rare /hpf (NONE SEEN) 02/16/18 23:40 Stool Occult Blood Negative (NEGATIVE) 02/17/18 10:00 Blood Type O POSITIVE 02/17/18 00:03 Antibody Screen Negative 02/17/18 00:03 Crossmatch See Detail 02/17/18 00:03 Problem List - Problems (1) Acute renal failure Code(s): N17.9 - ACUTE KIDNEY FAILURE, UNSPECIFIED (2) Anemia Code(s): D64.9 - ANEMIA, UNSPECIFIED Qualifiers: Anemia type: due to chronic kidney disease Chronic kidney disease stage: unspecified stage Qualified Code(s): N18.9 - Chronic kidney disease, unspecified; D63.1 - Anemia in chronic kidney disease Assessment/Plan No stigmata of overt GI bleeding. Continue current care. Add carafate. Will cont. to monitor.
[2018-02-19] MEDS: PANTOPRAZOLE SODIUM 40 MG VIAL IVPUSH SCH (09:29)
[2018-02-19] MEDS: methylPREDNISolone NA SUCC 40 MG/1 ML VIAL IVPUSH SCH (09:29)
[2018-02-19] MEDS: LACTOBACILLUS ACIDOPHILUS 1 TABLET GT SCH (09:29)
[2018-02-19] MEDS: OXYBUTYNIN CHLORIDE 5 MG TABLET NGT SCH ×2 (09:29→22:11)
[2018-02-19] MEDS: SERTRALINE HCL 25 MG TABLET (FP) PO SCH (09:30)
[2018-02-19] MEDS: ARTIFICIAL TEARS (POLYVINYL ALCOHOL 1.4%) OPTH DROPS OU SCH ×2 (09:30→22:11)
[2018-02-19] MEDS: FERROUS SO4 300 MG/5 ML ORAL SOLN UNIT DOSE CUPS GT SCH (09:30)
[2018-02-19] MEDS: DOCUSATE SODIUM 100 MG CAPSULE (FP) PO SCH (09:40)
--- NOTE | 2018-02-19 09:44 | PN ---
Physical Exam: SUBJECTIVE: Patient seen and examined at the bedside. Patient and daughter in law in attendance. Son Yomi and I spoke on the phone and he asked that hematology also reach out to him. Phone number provided to Dr. King OBJECTIVE: For 2 units of prbc today with repeat CBC after transfusion Vital Signs Period Temp Pulse Resp BP Sys/Wills Pulse Ox Last 24 Hr 97.5 F-99.7 F 64-96 14-19 107-122/49-79 95 GENERAL: The patient is awake, non verbal at baseline HEAD: Normal with no signs of trauma. EYES: PERRL, extraocular movements intact, sclera anicteric, conjunctiva clear. No ptosis. ENT: Ears normal, nares patent, oropharynx clear without exudates, moist mucous membranes. NECK: trach tube, no further hemoptysis LUNGS: Breath sounds equal, clear to auscultation anteriorly HEART: Regular rate and rhythm ABDOMEN: peg tube patent, feeds with Nepro NEUROLOGICAL: Non verbal at baseline PSYCH: Normal mood, normal affect. SKIN: Large sacral wound 11cm x 11cm x 0cm, no tunneling, appears as large unstageable wound vs. DTI, minimal sero sang drainage, no odor. Vascular consulted. patient may benefit from air mattress for wound healing, Santyl ordered Laboratory Results - last 24 hr 02/17/18 02/18/18 02/18/18 00:03 06:00 06:00 WBC 5.3 RBC 2.56 L D Hgb 7.5 L D Hct 21.6 L D MCV 84.5 MCH 29.4 MCHC 34.8 RDW 19.5 H Plt Count 124 L MPV 10.4 Absolute Neuts (auto) 3.7 Neutrophils % 69.9 Lymphocytes % 18.7 D Monocytes % 9.0 Eosinophils % 2.0 D Basophils % 0.4 Nucleated RBC % 0 ESR 116 H Sodium Potassium Chloride Carbon Dioxide Anion Gap BUN Creatinine Creat Clearance w eGFR POC Glucometer Random Glucose Calcium Magnesium Total Bilirubin AST ALT Alkaline Phosphatase C-Reactive Protein Total Protein Albumin Vitamin B12 Serum Folate Blood Type O POSITIVE Antibody Screen Negative Crossmatch See Detail 02/18/18 02/18/18 02/18/18 06:20 06:30 10:47 WBC RBC Hgb Hct MCV MCH MCHC RDW Plt Count MPV Absolute Neuts (auto) Neutrophils % Lymphocytes % Monocytes % Eosinophils % Basophils % Nucleated RBC % ESR Sodium 139 Potassium 3.7 Chloride 102 Carbon Dioxide 25 Anion Gap 12 BUN 146 H* Creatinine 2.4 H Creat Clearance w eGFR 25.86 POC Glucometer 298 Random Glucose 237 H Calcium 8.2 L Magnesium 2.4 Total Bilirubin 0.3 D AST 32 D ALT 43 Alkaline Phosphatase 120 H D C-Reactive Protein 10.6 H Total Protein 6.0 L Albumin 2.0 L Vitamin B12 705 Serum Folate 19 H Blood Type Antibody Screen Crossmatch 02/18/18 02/18/18 02/18/18 17:06 18:00 23:09 WBC 6.0 RBC 2.74 L Hgb 7.9 L Hct 23.6 L MCV 86.2 MCH 29.0 MCHC 33.7 RDW 19.5 H Plt Count 130 L MPV 10.2 Absolute Neuts (auto) 5.2 Neutrophils % 87.0 H D Lymphocytes % 11.5 D Monocytes % 1.4 L D Eosinophils % 0.0 D Basophils % 0.1 Nucleated RBC % 0 ESR Sodium Potassium Chloride Carbon Dioxide Anion Gap BUN Creatinine Creat Clearance w eGFR POC Glucometer 343 431 Random Glucose Calcium Magnesium Total Bilirubin AST ALT Alkaline Phosphatase C-Reactive Protein Total Protein Albumin Vitamin B12 Serum Folate Blood Type Antibody Screen Crossmatch 02/19/18 02/19/18 02/19/18 06:23 06:35 06:35 WBC 6.1 RBC 2.30 L Hgb 6.8 L* D Hct 19.7 L D MCV 86.0 MCH 29.7 MCHC 34.6 RDW 19.7 H Plt Count 125 L MPV 10.2 Absolute Neuts (auto) 4.6 Neutrophils % 75.3 Lymphocytes % 16.5 D Monocytes % 7.9 D Eosinophils % 0.1 D Basophils % 0.2 Nucleated RBC % 0 ESR Sodium 140 Potassium 3.7 Chloride 103 Carbon Dioxide 27 Anion Gap 10 BUN 151 H* Creatinine 2.6 H Creat Clearance w eGFR 23.58 POC Glucometer 328 Random Glucose 280 H Calcium 8.2 L Magnesium 2.3 Total Bilirubin 0.2 D AST 43 H D ALT 65 D Alkaline Phosphatase 130 H C-Reactive Protein Total Protein 5.8 L Albumin 1.9 L Vitamin B12 Serum Folate Blood Type Antibody Screen Crossmatch Active Medications Generic Name Dose Route Start Last Admin Trade Name Freq PRN Reason Stop Dose Admin Acetaminophen 650 mg 02/17/18 17:28 Tylenol - PO Q4H PRN FEVER Artificial Tears 2 drop 02/17/18 22:00 02/19/18 09:30 Artificial Tears OU 2 drop BID [facility] Administration Atorvastatin Calcium 10 mg 02/17/18 22:00 02/18/18 23:11 Lipitor - GT 10 mg HS [facility] Administration Bacitracin 1 applic 02/17/18 22:00 02/19/18 06:25 Bacitracin - TP 1 applic TID [facility] Administration Chlorhexidine Gluconate 1 applic 02/17/18 22:00 Hibiclens For Decolonization - TP HS [facility] Docusate Sodium 100 mg 02/18/18 10:00 02/18/18 09:50 Colace - PO 100 mg DAILY [facility] Administration Ferrous Sulfate 300 mg 02/18/18 10:00 02/19/18 09:30 Feosol GT 300 mg DAILY [facility] Administration Piperacillin Sod/Tazobactam 50 mls @ 100 mls/hr 02/18/18 02:00 02/19/18 09:29 Sod 2.25 gm/ Dextrose IVPB 100 mls/hr Q8H-IV [facility] Administration Protocol Insulin Aspart 1 vial 02/19/18 08:16 Novolog Vial Sliding Scale - SQ ACHS [facility] Protocol Insulin Detemir 15 units 02/19/18 08:15 Levemir Vial SQ HS [facility] Lactobacillus Acidophilus 1 tab 02/18/18 10:00 02/19/18 09:29 Bacid - GT 1 tab DAILY [facility] Administration Levothyroxine Sodium 37.5 mcg 02/18/18 07:00 02/19/18 06:20 Synthroid - PEG 37.5 mcg DAILY@0700 [facility] Administration Methylprednisolone Sodium Succinate 40 mg 02/18/18 10:00 02/19/18 09:29 Solu-Medrol - IVPUSH 40 mg DAILY [facility] Administration Mupirocin 1 applic 02/17/18 22:00 Bactroban Ointment (For Decolonization) - NS 02/22/18 09:59 BID [facility] Oxybutynin Chloride 5 mg 02/17/18 22:00 02/19/18 09:29 Ditropan - NGT 5 mg BID [facility] Administration Pantoprazole Sodium 40 mg 02/18/18 10:00 02/19/18 09:29 Protonix Iv IVPUSH 40 mg DAILY [facility] Administration Sertraline HCl 25 mg 02/17/18 17:27 02/19/18 09:30 Zoloft - PO 25 mg DAILY [facility] Administration Sucralfate 1 gm 02/19/18 11:00 Carafate Oral Suspension - PEG ACHS [facility] Tamsulosin HCl 0.4 mg 02/18/18 08:30 02/19/18 08:46 Flomax - PO 0.4 mg DAILY@0830 [facility] Administration ASSESSMENT/PLAN: Patient is an 87 year old male with a significant past medical history of diastolic heart failure, NIDDM, CKD, and 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 Admitted on 02/17/18 from [facility] chronic respiratory failure and severe anemia with a hmg of 5.5 and hypotension. Recently admitted here between 01/21 to 02/08/18 for hemoptysis around trach site and found to have Proteus ESBL UTI. He received 1 unit of prbc and 2 doses of venofer on last admission. He was also treated with a 14 day course of Ertapenem and discharged to [facility]. Pulmonary Pneumonia as per chest xray on 02/16. On Vanco and Zosyn per ID. Monitor respiratory status Concern for aspiration pneumonia. Head of bed elevated during feeds Chronic respiratory failure, ventilator dependent oxygen requirements at baseline 30% FiO2 Card: Acute on chronic diastolic heart failure, hold diuretics, monitor for fluid overlead Prox afib, well controlled. not on any anticoag secondary to bleeding issues Paroxysmal afib, not on anticoag secondary to anemia Cardiology following Heme: Anemia, acute on chronic Severe anemia on presentation with hmg of 5.5 in the setting of renal disease. transfused 6 units of prbc since this admission. No active bleeding noted on gastric lavage, no bleeding around trach site, stool for occult blood negative x 3. Hematology/onc consult Renal: KATERIN on CKD, creat above baseline. Hold Lasix Endocrine: NIDDM, chronic On SS, BGMs Hypothyroidism On Synthroid Functional quadraplegia, dependent on others for ADLs Large sacral wound, DTI FEN no ivf monitor electrolytes nepro feeds at goal rate No anticoagulation secondary to bleeding issues Protonix Visit type - Emergency Visit Emergency Visit: Yes ED Registration Date: 02/17/18 Care time: The patient presented to the Emergency Department on the above date and was hospitalized for further evaluation of their emergent condition. - New Patient This patient is new to me today: No - Critical Care Critical Care patient: No - Discharge Referral Referred to [facility] No
[2018-02-19] MEDS ORDERED: INSULIN (NOVOLOG) ASPART 100 UNITS/ML 10ML VIAL ONE ×3 (11:40→21:55)
[2018-02-19] MEDS: SUCRALFATE 1 GM/10 ML UNIT DOSE CUPS PEG SCH ×3 (11:54→22:11)
--- NOTE | 2018-02-19 12:00 | PN ---
Progress Note, Physician History of Present Illness: 87M w/ pmh of traumatic fall (s/p neck (C4,5, and 6)/back surgery, tracheotomy placement now ventilator dependent, and PEG tube placement), frequent pneumonia , emphysema, A-fib, CHF, DM, dementia, renal failure, nonverbal TBI, paraplegia , and legal blindness and deafness, who presents to the emergency department via EMS from [facility] with 3 days of hypotension. As per patients son , his blood pressure has been decreasing over the past few days. He reports that at baseline, his systolic is between 110-119 in the mornings and between 100-109 at night. Pt has failed 5 weaning trials in the last few days, and it was noticed that there was blood around the tracheostomy site when suctioning. Pt' son denies recent fevers, chills, chest pain, emesis, hematemesis, melena, and hematochezia in pt. - Current Medication List Current Medications: Active Medications Acetaminophen (Tylenol -) 650 mg PO Q4H PRN PRN Reason: FEVER Artificial Tears (Artificial Tears) 2 drop OU BID [facility] Last Admin: 02/19/18 09:30 Dose: 2 drop Atorvastatin Calcium (Lipitor -) 10 mg GT HS [facility] Last Admin: 02/18/18 23:11 Dose: 10 mg Bacitracin (Bacitracin -) 1 applic TP TID [facility] Last Admin: 02/19/18 06:25 Dose: 1 applic Chlorhexidine Gluconate (Hibiclens For Decolonization -) 1 applic TP HS [facility] Docusate Sodium (Colace -) 100 mg PO DAILY [facility] Last Admin: 02/19/18 09:40 Dose: Not Given Ferrous Sulfate (Feosol) 300 mg GT DAILY [facility] Last Admin: 02/19/18 09:30 Dose: 300 mg Piperacillin Sod/Tazobactam (Sod 2.25 gm/ Dextrose) 50 mls @ 100 mls/hr IVPB Q8H-IV [facility]; Protocol Last Admin: 02/19/18 09:29 Dose: 100 mls/hr Insulin Aspart (Novolog Vial Sliding Scale -) 1 vial SQ ACHS [facility]; Protocol Last Admin: 02/19/18 11:44 Dose: 6 units Insulin Detemir (Levemir Vial) 15 units SQ HS [facility] Lactobacillus Acidophilus (Bacid -) 1 tab GT DAILY [facility] Last Admin: 02/19/18 09:29 Dose: 1 tab Levothyroxine Sodium (Synthroid -) 37.5 mcg PEG DAILY@0700 [facility] Last Admin: 02/19/18 06:20 Dose: 37.5 mcg Methylprednisolone Sodium Succinate (Solu-Medrol -) 40 mg IVPUSH DAILY [facility] Last Admin: 02/19/18 09:29 Dose: 40 mg Mupirocin (Bactroban Ointment (For Decolonization) -) 1 applic NS BID [facility] Stop: 02/22/18 09:59 Oxybutynin Chloride (Ditropan -) 5 mg NGT BID [facility] Last Admin: 02/19/18 09:29 Dose: 5 mg Pantoprazole Sodium (Protonix Iv) 40 mg IVPUSH DAILY [facility] Last Admin: 02/19/18 09:29 Dose: 40 mg Sertraline HCl (Zoloft -) 25 mg PO DAILY [facility] Last Admin: 02/19/18 09:30 Dose: 25 mg Sucralfate (Carafate Oral Suspension -) 1 gm PEG ACHS [facility] Last Admin: 02/19/18 11:54 Dose: 1 gm Tamsulosin HCl (Flomax -) 0.4 mg PO DAILY@0830 [facility] Last Admin: 02/19/18 08:46 Dose: 0.4 mg - Objective Vital Signs: Vital Signs Temperature 98.8 F 02/19/18 10:52 Pulse Rate 73 02/19/18 10:52 Respiratory Rate 18 02/19/18 10:52 Blood Pressure 121/56 02/19/18 10:52 O2 Sat by Pulse Oximetry (%) 95 02/19/18 02:11 Eyes: Yes: WNL, Conjunctiva Clear, EOM Intact HENT: Yes: WNL, Atraumatic, Normocephalic Neck: Yes: WNL, Supple, Trachea Midline Cardiovascular: Yes: WNL, Regular Rate and Rhythm Respiratory: Yes: Mechanically Ventilated Gastrointestinal: Yes: WNL, Normal Bowel Sounds Genitourinary: Yes: WNL Musculoskeletal: Yes: WNL Extremities: Yes: WNL Edema: No Integumentary: Yes: WNL Neurological: Yes: WNL, Alert, Oriented ...Motor Strength: WNL Psychiatric: Yes: WNL Labs: CBC, BMP 02/19/18 06:35 02/19/18 06:35 INR, PTT INR 1.13 (0.82-1.09) 02/16/18 22:40 Assessment/Plan /p neck (C4,5, and 6)/back surgery, tracheotomy placement now ventilator dependent, and PEG tube placement), frequent pneumonia, emphysema, A-fib, CHF, DM, dementia, renal failure, nonverbal TBI, paraplegia, and legal blindness and deafness, who presents to the emergency department via EMS from [facility] with 3 days of hypotension and anemia. paf in sr sepsis worsening anemia Plan consider further transfussions gi/gu renal eval cardiac hall stable PAf in sr echo nl ef cont abx
--- NOTE | 2018-02-19 12:11 | PN ---
Progress Note (short form) - Note Progress Note: PULMONARY CHART REVIEWED Eyes: Yes: (-) Icterus Neck: Yes: Trach intact, Cardiovascular: Regular Rate and Rhythm Respiratory: Yes: Diminished, Mechanically Ventilated Gastrointestinal: Yes: WNL, Normal Bowel Sounds Genitourinary: Yes: WNL Edema: No Neurological: non-verbal . Labs: REVIEWED Problem List (1) Anemia Code(s): D64.9 - ANEMIA, UNSPECIFIED (2) Chronic kidney disease, stage 3 Code(s): N18.3 - CHRONIC KIDNEY DISEASE, STAGE 3 (MODERATE) (3) Chronic respiratory failure Code(s): J96.10 - CHRONIC RESPIRATORY FAILURE, UNSP W HYPOXIA OR HYPERCAPNIA Qualifiers: Respiratory failure complication: unspecified whether with hypoxia or hypercapnia Qualified Code(s): J96.10 - Chronic respiratory failure, unspecified whether with hypoxia or hypercapnia (4) PAF (paroxysmal atrial fibrillation) Code(s): I48.0 - PAROXYSMAL ATRIAL FIBRILLATION (5) Renal failure Code(s): N19 - UNSPECIFIED KIDNEY FAILURE Qualifiers: Renal failure chronicity: unspecified chronicity Qualified Code(s): N19 - Unspecified kidney failure (6) Diabetes Code(s): E11.9 - TYPE 2 DIABETES MELLITUS WITHOUT COMPLICATIONS (7) TBI (traumatic brain injury) Code(s): S06.9X9A - UNSP INTRACRANIAL INJURY W LOC OF UNSP DURATION, INIT (8) [id number] kidney injury Code(s): N17.9 - ACUTE KIDNEY FAILURE, UNSPECIFIED; N18.9 - CHRONIC KIDNEY DISEASE, UNSPECIFIED (9) Opfrt-mq-amizwmg renal failure Code(s): N17.9 - ACUTE KIDNEY FAILURE, UNSPECIFIED; N18.9 - CHRONIC KIDNEY DISEASE, UNSPECIFIED (10) Hypotension Code(s): I95.9 - HYPOTENSION, UNSPECIFIED (11) Hypotension Code(s): I95.9 - HYPOTENSION, UNSPECIFIED IMP CHRONIC RESPIRATORY FAILURE VENT DEPENDENT TBI S/P FALL QUADRAPLEGIA SECONDARY TO C4.5,6 FX SEVERE ANEMIA ?ETIOLOGY ACUTE ON CHRONIC KIDNEY DISEASE HYPOTENSION SECONDARY TO BLOOD LOSS,DEHYDRATION AFIB DM DEMENTIA H/O PNEUMONIA PLAN IVF NORMAL TRANSFUSION THRESHOLDS VENT SUPPORT ON AC MODE MONITOR H+H R JAIRON GONCALVES
--- NOTE | 2018-02-19 13:30 | PN ---
Progress Note, Physician Chief Complaint: The patient seen in his room. Remains vent supported. History of Present Illness: Patient is an 87 year old man with a significant past medical history of TBI due to fall (s/p neck (C4,5, and 6)/ back surgery, BPH, ESBL Proteus UTI, ventilator-dependence via tracheotomy, PEG tube feeding, frequent pneumonia, A- fib, CHF, DM, dementia, CKD stage III, nonverbal, quadriplegia, legally blind and deaf, who presents to the emergency department from [facility] with 3 day history of hypotension. Vital signs improved since admission. Maintains good urine output. - Current Medication List Current Medications: Active Medications Acetaminophen (Tylenol -) 650 mg PO Q4H PRN PRN Reason: FEVER Artificial Tears (Artificial Tears) 2 drop OU BID [facility] Last Admin: 02/19/18 09:30 Dose: 2 drop Atorvastatin Calcium (Lipitor -) 10 mg GT HS [facility] Last Admin: 02/18/18 23:11 Dose: 10 mg Bacitracin (Bacitracin -) 1 applic TP TID [facility] Last Admin: 02/19/18 06:25 Dose: 1 applic Chlorhexidine Gluconate (Hibiclens For Decolonization -) 1 applic TP HS [facility] Docusate Sodium (Colace -) 100 mg PO DAILY [facility] Last Admin: 02/19/18 09:40 Dose: Not Given Ferrous Sulfate (Feosol) 300 mg GT DAILY [facility] Last Admin: 02/19/18 09:30 Dose: 300 mg Piperacillin Sod/Tazobactam (Sod 2.25 gm/ Dextrose) 50 mls @ 100 mls/hr IVPB Q8H-IV [facility]; Protocol Last Admin: 02/19/18 09:29 Dose: 100 mls/hr Insulin Aspart (Novolog Vial Sliding Scale -) 1 vial SQ ACHS [facility]; Protocol Last Admin: 02/19/18 11:44 Dose: 6 units Insulin Detemir (Levemir Vial) 15 units SQ HS [facility] Lactobacillus Acidophilus (Bacid -) 1 tab GT DAILY [facility] Last Admin: 02/19/18 09:29 Dose: 1 tab Levothyroxine Sodium (Synthroid -) 37.5 mcg PEG DAILY@0700 [facility] Last Admin: 02/19/18 06:20 Dose: 37.5 mcg Methylprednisolone Sodium Succinate (Solu-Medrol -) 40 mg IVPUSH DAILY [facility] Last Admin: 02/19/18 09:29 Dose: 40 mg Mupirocin (Bactroban Ointment (For Decolonization) -) 1 applic NS BID [facility] Stop: 02/22/18 09:59 Oxybutynin Chloride (Ditropan -) 5 mg NGT BID [facility] Last Admin: 02/19/18 09:29 Dose: 5 mg Pantoprazole Sodium (Protonix Iv) 40 mg IVPUSH DAILY [facility] Last Admin: 02/19/18 09:29 Dose: 40 mg Sertraline HCl (Zoloft -) 25 mg PO DAILY [facility] Last Admin: 02/19/18 09:30 Dose: 25 mg Sucralfate (Carafate Oral Suspension -) 1 gm PEG ACHS [facility] Last Admin: 02/19/18 11:54 Dose: 1 gm Tamsulosin HCl (Flomax -) 0.4 mg PO DAILY@0830 [facility] Last Admin: 02/19/18 08:46 Dose: 0.4 mg - Objective Vital Signs: Vital Signs Temperature 98.8 F 02/19/18 10:52 Pulse Rate 73 02/19/18 10:52 Respiratory Rate 14 02/19/18 12:05 Blood Pressure 121/56 02/19/18 10:52 O2 Sat by Pulse Oximetry (%) 95 02/19/18 02:11 Constitutional: Yes: No Distress, Calm HENT: Yes: Normocephalic Cardiovascular: Yes: S1, S2 Respiratory: Yes: CTA Bilaterally, Mechanically Ventilated Gastrointestinal: Yes: Normal Bowel Sounds, Soft Genitourinary: No: Bladder Distention, Hematuria Edema: LLE: Trace, RLE: Trace Labs: CBC, BMP 02/19/18 06:35 02/19/18 06:35 INR, PTT INR 1.13 (0.82-1.09) 02/16/18 22:40 Problem List - Problems (1) Acute renal failure Code(s): N17.9 - ACUTE KIDNEY FAILURE, UNSPECIFIED (2) Chronic kidney disease, stage 3 Code(s): N18.3 - CHRONIC KIDNEY DISEASE, STAGE 3 (MODERATE) (3) Anemia Code(s): D64.9 - ANEMIA, UNSPECIFIED Qualifiers: Anemia type: due to chronic kidney disease Chronic kidney disease stage: unspecified stage Qualified Code(s): N18.9 - Chronic kidney disease, unspecified; D63.1 - Anemia in chronic kidney disease (4) Chronic respiratory failure Code(s): J96.10 - CHRONIC RESPIRATORY FAILURE, UNSP W HYPOXIA OR HYPERCAPNIA Qualifiers: Respiratory failure complication: unspecified whether with hypoxia or hypercapnia Qualified Code(s): J96.10 - Chronic respiratory failure, unspecified whether with hypoxia or hypercapnia (5) PAF (paroxysmal atrial fibrillation) Code(s): I48.0 - PAROXYSMAL ATRIAL FIBRILLATION (6) A-fib Code(s): I48.91 - UNSPECIFIED ATRIAL FIBRILLATION (7) 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 Acute renal failure superimposed on CKD. The acute renal dysfunction due to sepsis, altered renal hemodynamics with resultant real hypoperfusion. Some degree of the profoud [place] is steroid dependent. Profound anemia...For PRBC transfusion today. Suggest: Hemodynamic status improved. Respiratory support. PRBC transfusion today. IV antibiotics. Will monitor the renal functions with you. Thank you. Will follow with you. Margarita Caban MD
--- NOTE | 2018-02-19 13:50 | PN ---
Progress Note, Physician History of Present Illness: no distress no new events - Current Medication List Current Medications: Active Medications Acetaminophen (Tylenol -) 650 mg PO Q4H PRN PRN Reason: FEVER Artificial Tears (Artificial Tears) 2 drop OU BID [facility] Last Admin: 02/19/18 09:30 Dose: 2 drop Atorvastatin Calcium (Lipitor -) 10 mg GT HS [facility] Last Admin: 02/18/18 23:11 Dose: 10 mg Bacitracin (Bacitracin -) 1 applic TP TID [facility] Last Admin: 02/19/18 06:25 Dose: 1 applic Chlorhexidine Gluconate (Hibiclens For Decolonization -) 1 applic TP HS [facility] Docusate Sodium (Colace -) 100 mg PO DAILY [facility] Last Admin: 02/19/18 09:40 Dose: Not Given Ferrous Sulfate (Feosol) 300 mg GT DAILY [facility] Last Admin: 02/19/18 09:30 Dose: 300 mg Piperacillin Sod/Tazobactam (Sod 2.25 gm/ Dextrose) 50 mls @ 100 mls/hr IVPB Q8H-IV [facility]; Protocol Last Admin: 02/19/18 09:29 Dose: 100 mls/hr Insulin Aspart (Novolog Vial Sliding Scale -) 1 vial SQ [facility]; Protocol Last Admin: 02/19/18 11:44 Dose: 6 units Insulin Detemir (Levemir Vial) 15 units SQ [facility] Lactobacillus Acidophilus (Bacid -) 1 tab GT DAILY [facility] Last Admin: 02/19/18 09:29 Dose: 1 tab Levothyroxine Sodium (Synthroid -) 37.5 mcg PEG DAILY@0700 [facility] Last Admin: 02/19/18 06:20 Dose: 37.5 mcg Methylprednisolone Sodium Succinate (Solu-Medrol -) 40 mg IVPUSH DAILY [facility] Last Admin: 02/19/18 09:29 Dose: 40 mg Mupirocin (Bactroban Ointment (For Decolonization) -) 1 applic NS BID [facility] Stop: 02/22/18 09:59 Oxybutynin Chloride (Ditropan -) 5 mg NGT BID [facility] Last Admin: 02/19/18 09:29 Dose: 5 mg Pantoprazole Sodium (Protonix Iv) 40 mg IVPUSH DAILY [facility] Last Admin: 02/19/18 09:29 Dose: 40 mg Sertraline HCl (Zoloft -) 25 mg PO DAILY [facility] Last Admin: 02/19/18 09:30 Dose: 25 mg Sucralfate (Carafate Oral Suspension -) 1 gm PEG ACHS [facility] Last Admin: 02/19/18 11:54 Dose: 1 gm Tamsulosin HCl (Flomax -) 0.4 mg PO DAILY@0830 [facility] Last Admin: 02/19/18 08:46 Dose: 0.4 mg - Objective Vital Signs: Vital Signs Temperature 98.8 F 02/19/18 10:52 Pulse Rate 73 02/19/18 10:52 Respiratory Rate 14 02/19/18 12:05 Blood Pressure 121/56 02/19/18 10:52 O2 Sat by Pulse Oximetry (%) 95 02/19/18 02:11 Constitutional: Yes: No Distress Cardiovascular: Yes: Regular Rate and Rhythm, S1, S2 Respiratory: Yes: Mechanically Ventilated, Other (tacheostomy) Gastrointestinal: Yes: Normal Bowel Sounds, Soft, Other (peg in place) Musculoskeletal: Yes: WNL Extremities: Yes: Other Neurological: Yes: Other Labs: CBC, BMP 02/19/18 06:35 02/19/18 06:35 INR, PTT INR 1.13 (0.82-1.09) 02/16/18 22:40 Assessment/Plan Problem List - Problems (1) Anemia Code(s): D64.9 - ANEMIA, UNSPECIFIED (2) Chronic kidney disease, stage 3 Code(s): N18.3 - CHRONIC KIDNEY DISEASE, STAGE 3 (MODERATE) (3) Chronic respiratory failure Code(s): J96.10 - CHRONIC RESPIRATORY FAILURE, UNSP W HYPOXIA OR HYPERCAPNIA Qualifiers: Respiratory failure complication: unspecified whether with hypoxia or hypercapnia Qualified Code(s): J96.10 - Chronic respiratory failure, unspecified whether with hypoxia or hypercapnia (4) PAF (paroxysmal atrial fibrillation) Code(s): I48.0 - PAROXYSMAL ATRIAL FIBRILLATION (5) Renal failure Code(s): N19 - UNSPECIFIED KIDNEY FAILURE Qualifiers: Renal failure chronicity: unspecified chronicity Qualified Code(s): N19 - Unspecified kidney failure (6) Diabetes Code(s): E11.9 - TYPE 2 DIABETES MELLITUS WITHOUT COMPLICATIONS (7) TBI (traumatic brain injury) Code(s): S06.9X9A - UNSP INTRACRANIAL INJURY W LOC OF UNSP DURATION, INIT (8) Yezxe-km-hxehyrv kidney injury Code(s): N17.9 - ACUTE KIDNEY FAILURE, UNSPECIFIED; N18.9 - CHRONIC KIDNEY DISEASE, UNSPECIFIED (9) Nuvqm-tl-tdcndwt renal failure Code(s): N17.9 - ACUTE KIDNEY FAILURE, UNSPECIFIED; N18.9 - CHRONIC KIDNEY DISEASE, UNSPECIFIED (10) Hypotension Code(s): I95.9 - HYPOTENSION, UNSPECIFIED (11) Hypotension Code(s): I95.9 - HYPOTENSION, UNSPECIFIED I plan continue abx for now hydration monitor blood levels rest as per the team h and h has decreased again look at the source
--- NOTE | 2018-02-19 15:29 | PN ---
Progress Note (short form) - Note Progress Note: Vascular Surgery Pt seen and examined with the family. Stage 2 sacral ulcer with excoriation. Please offload area. Start santyl to area daily. Fransisco Hutson DO
--- NOTE | 2018-02-19 17:09 | PN ---
Progress Note (short form) - Note Progress Note: Pt seen and examined family memebrs at bedside. labs/chart reviewed. unable to obtain about ROS Constitutional: Yes: Vented Eyes: Yes: Conjunctiva Clear HENT: Yes: Other (vented) Cardiovascular: Yes: Tachycardia Respiratory: Yes: Other (vent-dependant) Gastrointestinal: Yes: +PEG Last Vital Signs Temp Pulse Resp BP Pulse Ox 98.8 F 70 21 106/57 95 02/19/18 14:50 02/19/18 14:50 02/19/18 16:14 02/19/18 14:50 02/19/18 02:11 CBC, BMP 02/19/18 06:35 02/19/18 06:35 Current Medications Generic Name Dose Route Start Last Admin Trade Name Freq PRN Reason Stop Dose Admin Acetaminophen 650 mg 02/17/18 17:28 Tylenol - PO Q4H PRN FEVER Artificial Tears 2 drop 02/17/18 22:00 02/19/18 09:30 Artificial Tears OU 2 drop BID [facility] Administration Atorvastatin Calcium 10 mg 02/17/18 22:00 02/18/18 23:11 Lipitor - GT 10 mg HS [facility] Administration Bacitracin 1 applic 02/17/18 22:00 02/19/18 06:25 Bacitracin - TP 1 applic TID [facility] Administration Chlorhexidine Gluconate 1 applic 02/17/18 22:00 Hibiclens For Decolonization - TP HS [facility] Collagenase 1 applic 02/19/18 16:00 Santyl - TP DAILY [facility] Docusate Sodium 100 mg 02/18/18 10:00 02/19/18 09:40 Colace - PO Not Given DAILY [facility] Ferrous Sulfate 300 mg 02/18/18 10:00 02/19/18 09:30 Feosol GT 300 mg DAILY [facility] Administration Piperacillin Sod/Tazobactam 50 mls @ 100 mls/hr 02/18/18 02:00 02/19/18 09:29 Sod 2.25 gm/ Dextrose IVPB 100 mls/hr Q8H-IV [facility] Administration Protocol Insulin Aspart 1 vial 02/19/18 08:16 02/19/18 11:44 Novolog Vial Sliding Scale - SQ 6 units ACHS [facility] Administration Protocol Insulin Detemir 15 units 02/19/18 08:15 Levemir Vial SQ HS [facility] Lactobacillus Acidophilus 1 tab 02/18/18 10:00 02/19/18 09:29 Bacid - GT 1 tab DAILY [facility] Administration Levothyroxine Sodium 37.5 mcg 02/18/18 07:00 02/19/18 06:20 Synthroid - PEG 37.5 mcg DAILY@0700 [facility] Administration Methylprednisolone Sodium Succinate 40 mg 02/18/18 10:00 02/19/18 09:29 Solu-Medrol - IVPUSH 40 mg DAILY [facility] Administration Mupirocin 1 applic 02/17/18 22:00 Bactroban Ointment (For Decolonization) - NS 02/22/18 09:59 BID [facility] Oxybutynin Chloride 5 mg 02/17/18 22:00 02/19/18 09:29 Ditropan - NGT 5 mg BID [facility] Administration Pantoprazole Sodium 40 mg 02/18/18 10:00 02/19/18 09:29 Protonix Iv IVPUSH 40 mg DAILY [facility] Administration Sertraline HCl 25 mg 02/17/18 17:27 02/19/18 09:30 Zoloft - PO 25 mg DAILY [facility] Administration Sucralfate 1 gm 02/19/18 11:00 02/19/18 11:54 Carafate Oral Suspension - PEG 1 gm ACHS [facility] Administration Tamsulosin HCl 0.4 mg 02/18/18 08:30 02/19/18 08:46 Flomax - PO 0.4 mg DAILY@0830 [facility] Administration Anemia Mild thrombocytopenia CKD Sarcal ulcer Trach/vent/peg dependant Other Co-morbids frequent pneumonia, emphysema, A-fib, CHF, DM, dementia, renal failure, nonverbal TBI, paraplegia Multifactorial Anemia as documented High ESR/CRP for PRBCs if no stability in H/H, repeat CT a/p vs an RBC scan. discussed with son about JAVED agents, he will think about it d/w son/dil/ about the clinical picture related to anemia.
[2018-02-19] MEDS: COLLAGENASE CLOSTRIDIUM HIST. 30 GRAMS TUBE TP SCH (20:17)
[2018-02-19 21:45] LABS: BASO % 0.1 % (0-2.0); HEMATOCRIT 23.9 % (35.4-49); LYMPH % 12.2 % (8-40); MCH 28.8 pg (25.7-33.7); MCHC 33.4 g/dl (32.0-35.9); MEAN CELL VOLUME 86.1 fl (80-96); MEAN PLT VOLUME 10.2 fl (7.5-11.1); MONO % 3.1 % (3.8-10.2); NEUT % 84.6 % (42.8-82.8); PLATELET COUNT 135 K/MM3 (134-434); RBC 2.77 M/mm3 (4.00-5.60); WHITE BLOOD COUNT 6.6 K/mm3 (4.0-10.0)
[2018-02-19] MEDS: ATORVASTATIN CA 10 MG TABLET (FP) GT SCH (22:11)
[2018-02-20] MEDS ORDERED: PIPERACILLIN/TAZOBACTAM 2.25 GM VIAL IVPB ONE ×3 (01:39→17:57)
[2018-02-20] MEDS ORDERED: DEXTROSE 5%-WATER - 50 ML IVPB ONE ×3 (01:39→17:57)
[2018-02-20] MEDS: PIPERACILLIN/TAZOB 2.25 GM 2.25 GM in DEXTROSE 5%-WATER - 50 ML IVPB SCH ×3 (01:58→18:21)
[2018-02-20] MEDS: INSULIN SLIDING SCALE (NOVOLOG) 1 VIAL SQ SCH ×4 (06:11→23:06)
[2018-02-20] MEDS: BACITRACIN 15 GM TUBE TOPICAL OINTMENT TP SCH ×3 (06:11→23:04)
[2018-02-20] MEDS: LEVOTHYROXINE NA 25 MCG TABLET (FP) PEG SCH (06:11)
[2018-02-20] MEDS: SUCRALFATE 1 GM/10 ML UNIT DOSE CUPS PEG SCH ×4 (06:11→23:04)
[2018-02-20 08:16] LABS: BASO % 0.3 % (0-2.0); EOS % 0.5 % (0-4.5); HEMATOCRIT 23.5 % (35.4-49); LYMPH % 18.9 % (8-40); MCH 29.4 pg (25.7-33.7); MCHC 34.1 g/dl (32.0-35.9); MEAN CELL VOLUME 86.2 fl (80-96); MONO % 8.5 % (3.8-10.2); NEUT % 71.8 % (42.8-82.8); PLATELET COUNT 127 K/MM3 (134-434); RBC 2.73 M/mm3 (4.00-5.60); RDW 19.2 % (11.9-15.9); WHITE BLOOD COUNT 6.3 K/mm3 (4.0-10.0)
--- NOTE | 2018-02-20 08:52 | PN ---
Progress Note, Physician History of Present Illness: 87M w/ pmh of traumatic fall (s/p neck (C4,5, and 6)/back surgery, tracheotomy placement now ventilator dependent, and PEG tube placement), frequent pneumonia , emphysema, A-fib, CHF, DM, dementia, renal failure, nonverbal TBI, paraplegia , and legal blindness and deafness, who presents to the emergency department via EMS from [facility] with 3 days of hypotension. As per patients son , his blood pressure has been decreasing over the past few days. He reports that at baseline, his systolic is between 110-119 in the mornings and between 100-109 at night. Pt has failed 5 weaning trials in the last few days, and it was noticed that there was blood around the tracheostomy site when suctioning. Pt' son denies recent fevers, chills, chest pain, emesis, hematemesis, melena, and hematochezia in pt. - Current Medication List Current Medications: Active Medications Acetaminophen (Tylenol -) 650 mg PO Q4H PRN PRN Reason: FEVER Artificial Tears (Artificial Tears) 2 drop OU BID [facility] Last Admin: 02/19/18 22:11 Dose: 2 drop Atorvastatin Calcium (Lipitor -) 10 mg GT HS [facility] Last Admin: 02/19/18 22:11 Dose: 10 mg Bacitracin (Bacitracin -) 1 applic TP TID [facility] Last Admin: 02/20/18 06:11 Dose: 1 applic Chlorhexidine Gluconate (Hibiclens For Decolonization -) 1 applic TP HS [facility] Collagenase (Santyl -) 1 applic TP DAILY [facility] Last Admin: 02/19/18 20:17 Dose: 1 applic Docusate Sodium (Colace -) 100 mg PO DAILY [facility] Last Admin: 02/19/18 09:40 Dose: Not Given Ferrous Sulfate (Feosol) 300 mg GT DAILY [facility] Last Admin: 02/19/18 09:30 Dose: 300 mg Piperacillin Sod/Tazobactam (Sod 2.25 gm/ Dextrose) 50 mls @ 100 mls/hr IVPB Q8H-IV [facility]; Protocol Last Admin: 02/20/18 01:58 Dose: 100 mls/hr Insulin Aspart (Novolog Vial Sliding Scale -) 1 vial SQ ACHS [facility]; Protocol Last Admin: 02/20/18 06:11 Dose: 6 units Insulin Detemir (Levemir Vial) 15 units SQ HS [facility] Last Admin: 02/19/18 22:12 Dose: 15 units Lactobacillus Acidophilus (Bacid -) 1 tab GT DAILY [facility] Last Admin: 02/19/18 09:29 Dose: 1 tab Levothyroxine Sodium (Synthroid -) 37.5 mcg PEG DAILY@0700 [facility] Last Admin: 02/20/18 06:11 Dose: 37.5 mcg Methylprednisolone Sodium Succinate (Solu-Medrol -) 40 mg IVPUSH DAILY [facility] Last Admin: 02/19/18 09:29 Dose: 40 mg Mupirocin (Bactroban Ointment (For Decolonization) -) 1 applic NS BID [facility] Stop: 02/22/18 09:59 Oxybutynin Chloride (Ditropan -) 5 mg NGT BID [facility] Last Admin: 02/19/18 22:11 Dose: 5 mg Pantoprazole Sodium (Protonix Iv) 40 mg IVPUSH DAILY [facility] Last Admin: 02/19/18 09:29 Dose: 40 mg Sertraline HCl (Zoloft -) 25 mg PO DAILY [facility] Last Admin: 02/19/18 09:30 Dose: 25 mg Sucralfate (Carafate Oral Suspension -) 1 gm PEG ACHS [facility] Last Admin: 02/20/18 06:11 Dose: 1 gm Tamsulosin HCl (Flomax -) 0.4 mg PO DAILY@0830 [facility] Last Admin: 02/19/18 08:46 Dose: 0.4 mg - Objective Vital Signs: Vital Signs Temperature 98.9 F 02/20/18 06:22 Pulse Rate 70 02/20/18 08:17 Respiratory Rate 17 02/20/18 08:17 Blood Pressure 118/52 02/20/18 06:22 O2 Sat by Pulse Oximetry (%) 99 02/20/18 08:17 Eyes: Yes: WNL, Conjunctiva Clear, EOM Intact HENT: Yes: WNL, Atraumatic, Normocephalic Neck: Yes: WNL, Supple, Trachea Midline Cardiovascular: Yes: WNL, Regular Rate and Rhythm Respiratory: Yes: WNL, Mechanically Ventilated Gastrointestinal: Yes: WNL, Normal Bowel Sounds Genitourinary: Yes: WNL Musculoskeletal: Yes: WNL Extremities: Yes: WNL Edema: No Integumentary: Yes: WNL ...Motor Strength: WNL Psychiatric: Yes: WNL Labs: INR, PTT INR 1.13 (0.82-1.09) 02/16/18 22:40 Assessment/Plan /p neck (C4,5, and 6)/back surgery, tracheotomy placement now ventilator dependent, and PEG tube placement), frequent pneumonia, emphysema, A-fib, CHF, DM, dementia, renal failure, nonverbal TBI, paraplegia, and legal blindness and deafness, who presents to the emergency department via EMS from [facility] with 3 days of hypotension and anemia. paf in sr sepsis worsening anemia Plan consider further transfussions gi/gu renal eval cardiac hall stable PAf in sr echo nl ef cont abx
[2018-02-20 08:58] LABS: ANION GAP 10 (8-16); CALCIUM 8.4 mg/dL (8.5-10.1); CHLORIDE 105 mmol/L (98-107); CO2 28 mmol/L (21-32); CREATININE 2.6 mg/dL (0.7-1.3); GLUCOSE,RANDOM 190 mg/dL (74-106); LDH 252 U/L (87-241); MAGNESIUM 2.4 mg/dL (1.8-2.4); POTASSIUM 3.6 mmol/L (3.5-5.1); SGOT/AST 151 U/L (15-37); SGPT/ALT 146 U/L (12-78); SODIUM 143 mmol/L (136-145)
[2018-02-20 08:59] LABS: ALK PHOS 137 U/L (45-117); BILIRUBIN,TOTAL 0.3 mg/dL (0.2-1.0); TOT PROT 5.9 g/dl (6.4-8.2)
[2018-02-20 09:14] LABS: BLOOD UREA NITROGEN 177 mg/dL (7-18)
--- NOTE | 2018-02-20 09:31 | PN ---
Progress Note (short form) - Note Progress Note: PULMONARY CHART REVIEWED Eyes: Yes: (-) Icterus Neck: Yes: Trach intact, Cardiovascular: Regular Rate and Rhythm Respiratory: Yes: Diminished, Mechanically Ventilated Gastrointestinal: Yes: WNL, Normal Bowel Sounds Genitourinary: Yes: WNL Edema: No Neurological: non-verbal . Labs: MEDS/NOTES/MICRO/IMAGES REVIEWED Problem List (1) Anemia Code(s): D64.9 - ANEMIA, UNSPECIFIED (2) Chronic kidney disease, stage 3 Code(s): N18.3 - CHRONIC KIDNEY DISEASE, STAGE 3 (MODERATE) (3) Chronic respiratory failure Code(s): J96.10 - CHRONIC RESPIRATORY FAILURE, UNSP W HYPOXIA OR HYPERCAPNIA Qualifiers: Respiratory failure complication: unspecified whether with hypoxia or hypercapnia Qualified Code(s): J96.10 - Chronic respiratory failure, unspecified whether with hypoxia or hypercapnia (4) PAF (paroxysmal atrial fibrillation) Code(s): I48.0 - PAROXYSMAL ATRIAL FIBRILLATION (5) Renal failure Code(s): N19 - UNSPECIFIED KIDNEY FAILURE Qualifiers: Renal failure chronicity: unspecified chronicity Qualified Code(s): N19 - Unspecified kidney failure (6) Diabetes Code(s): E11.9 - TYPE 2 DIABETES MELLITUS WITHOUT COMPLICATIONS (7) TBI (traumatic brain injury) Code(s): S06.9X9A - UNSP INTRACRANIAL INJURY W LOC OF UNSP DURATION, INIT (8) Qeleq-wt-qopqqji kidney injury Code(s): N17.9 - ACUTE KIDNEY FAILURE, UNSPECIFIED; N18.9 - CHRONIC KIDNEY DISEASE, UNSPECIFIED (9) Sazlh-py-ewwufcs renal failure Code(s): N17.9 - ACUTE KIDNEY FAILURE, UNSPECIFIED; N18.9 - CHRONIC KIDNEY DISEASE, UNSPECIFIED (10) Hypotension Code(s): I95.9 - HYPOTENSION, UNSPECIFIED (11) Hypotension Code(s): I95.9 - HYPOTENSION, UNSPECIFIED IMP CHRONIC RESPIRATORY FAILURE VENT DEPENDENT TBI S/P FALL QUADRAPLEGIA SECONDARY TO C4.5,6 FX SEVERE ANEMIA ?ETIOLOGY ACUTE ON CHRONIC KIDNEY DISEASE HYPOTENSION SECONDARY TO BLOOD LOSS,DEHYDRATION AFIB DM DEMENTIA H/O PNEUMONIA PLAN IVF NORMAL TRANSFUSION THRESHOLDS VENT SUPPORT ON AC MODE MONITOR H+H SACRAL ULCER STAGE 2 FOR OFFLOADING/SANTYL Tony DE LA O MD
[2018-02-20] MEDS: TAMSULOSIN HCL 0.4 MG CAP.ER.24H (FP) PO SCH (09:38)
--- NOTE | 2018-02-20 09:57 | PN ---
Progress Note, Physician History of Present Illness: continues to be on vent no gross changes loose stools off and on on colace - Current Medication List Current Medications: Active Medications Acetaminophen (Tylenol -) 650 mg PO Q4H PRN PRN Reason: FEVER Artificial Tears (Artificial Tears) 2 drop OU BID [facility] Last Admin: 02/19/18 22:11 Dose: 2 drop Atorvastatin Calcium (Lipitor -) 10 mg GT HS [facility] Last Admin: 02/19/18 22:11 Dose: 10 mg Bacitracin (Bacitracin -) 1 applic TP TID [facility] Last Admin: 02/20/18 06:11 Dose: 1 applic Chlorhexidine Gluconate (Hibiclens For Decolonization -) 1 applic TP HS [facility] Collagenase (Santyl -) 1 applic TP DAILY [facility] Last Admin: 02/19/18 20:17 Dose: 1 applic Docusate Sodium (Colace -) 100 mg PO DAILY [facility] Last Admin: 02/19/18 09:40 Dose: Not Given Ferrous Sulfate (Feosol) 300 mg GT DAILY [facility] Last Admin: 02/19/18 09:30 Dose: 300 mg Piperacillin Sod/Tazobactam (Sod 2.25 gm/ Dextrose) 50 mls @ 100 mls/hr IVPB Q8H-IV [facility]; Protocol Last Admin: 02/20/18 01:58 Dose: 100 mls/hr Insulin Aspart (Novolog Vial Sliding Scale -) 1 vial SQ ACHS [facility]; Protocol Last Admin: 02/20/18 06:11 Dose: 6 units Insulin Detemir (Levemir Vial) 15 units SQ HS [facility] Last Admin: 02/19/18 22:12 Dose: 15 units Lactobacillus Acidophilus (Bacid -) 1 tab GT DAILY [facility] Last Admin: 02/19/18 09:29 Dose: 1 tab Levothyroxine Sodium (Synthroid -) 37.5 mcg PEG DAILY@0700 [facility] Last Admin: 02/20/18 06:11 Dose: 37.5 mcg Methylprednisolone Sodium Succinate (Solu-Medrol -) 40 mg IVPUSH DAILY [facility] Last Admin: 02/19/18 09:29 Dose: 40 mg Mupirocin (Bactroban Ointment (For Decolonization) -) 1 applic NS BID [facility] Stop: 02/22/18 09:59 Oxybutynin Chloride (Ditropan -) 5 mg NGT BID [facility] Last Admin: 02/19/18 22:11 Dose: 5 mg Pantoprazole Sodium (Protonix Iv) 40 mg IVPUSH DAILY [facility] Last Admin: 02/19/18 09:29 Dose: 40 mg Sertraline HCl (Zoloft -) 25 mg PO DAILY [facility] Last Admin: 02/19/18 09:30 Dose: 25 mg Sucralfate (Carafate Oral Suspension -) 1 gm PEG ACHS [facility] Last Admin: 02/20/18 06:11 Dose: 1 gm Tamsulosin HCl (Flomax -) 0.4 mg PO DAILY@0830 [facility] Last Admin: 02/20/18 09:38 Dose: 0.4 mg - Objective Vital Signs: Vital Signs Temperature 98.9 F 02/20/18 06:22 Pulse Rate 70 02/20/18 08:17 Respiratory Rate 17 02/20/18 08:17 Blood Pressure 118/52 02/20/18 06:22 O2 Sat by Pulse Oximetry (%) 99 02/20/18 08:17 Constitutional: Yes: Other Cardiovascular: Yes: Pulse Irregular, S1, S2 Respiratory: Yes: Mechanically Ventilated, Other (trach in place) Gastrointestinal: Yes: Normal Bowel Sounds, Soft, Other (peg in place) Musculoskeletal: Yes: WNL Extremities: Yes: WNL Neurological: Yes: Alert, Other Labs: INR, PTT INR 1.13 (0.82-1.09) 02/16/18 22:40 Assessment/Plan Problem List - Problems (1) Anemia Code(s): D64.9 - ANEMIA, UNSPECIFIED (2) Chronic kidney disease, stage 3 Code(s): N18.3 - CHRONIC KIDNEY DISEASE, STAGE 3 (MODERATE) (3) Chronic respiratory failure Code(s): J96.10 - CHRONIC RESPIRATORY FAILURE, UNSP W HYPOXIA OR HYPERCAPNIA Qualifiers: Respiratory failure complication: unspecified whether with hypoxia or hypercapnia Qualified Code(s): J96.10 - Chronic respiratory failure, unspecified whether with hypoxia or hypercapnia (4) PAF (paroxysmal atrial fibrillation) Code(s): I48.0 - PAROXYSMAL ATRIAL FIBRILLATION (5) Renal failure Code(s): N19 - UNSPECIFIED KIDNEY FAILURE Qualifiers: Renal failure chronicity: unspecified chronicity Qualified Code(s): N19 - Unspecified kidney failure (6) Diabetes Code(s): E11.9 - TYPE 2 DIABETES MELLITUS WITHOUT COMPLICATIONS (7) TBI (traumatic brain injury) Code(s): S06.9X9A - UNSP INTRACRANIAL INJURY W LOC OF UNSP DURATION, INIT (8) Evzmx-rg-hivmofz kidney injury Code(s): N17.9 - ACUTE KIDNEY FAILURE, UNSPECIFIED; N18.9 - CHRONIC KIDNEY DISEASE, UNSPECIFIED (9) Vsusw-tn-lvlthzc renal failure Code(s): N17.9 - ACUTE KIDNEY FAILURE, UNSPECIFIED; N18.9 - CHRONIC KIDNEY DISEASE, UNSPECIFIED (10) Hypotension Code(s): I95.9 - HYPOTENSION, UNSPECIFIED (11) Hypotension Code(s): I95.9 - HYPOTENSION, UNSPECIFIED I plan continue abx for now will deescalte probably by thursday hydration rest as per the team h and h to be monitore await for todays labs look at the source
--- NOTE | 2018-02-20 10:58 | PN ---
Progress Note (short form) - Note Progress Note: resting comfortable Current Medications Generic Name Dose Route Start Last Admin Trade Name Freq PRN Reason Stop Dose Admin Acetaminophen 650 mg 02/17/18 17:28 Tylenol - PO Q4H PRN FEVER Artificial Tears 2 drop 02/17/18 22:00 02/19/18 22:11 Artificial Tears OU 2 drop BID [facility] Administration Atorvastatin Calcium 10 mg 02/17/18 22:00 02/19/18 22:11 Lipitor - GT 10 mg HS [facility] Administration Bacitracin 1 applic 02/17/18 22:00 02/20/18 06:11 Bacitracin - TP 1 applic TID [facility] Administration Chlorhexidine Gluconate 1 applic 02/17/18 22:00 Hibiclens For Decolonization - TP HS [facility] Collagenase 1 applic 02/19/18 16:00 02/19/18 20:17 Santyl - TP 1 applic DAILY [facility] Administration Docusate Sodium 100 mg 02/18/18 10:00 02/19/18 09:40 Colace - PO Not Given DAILY [facility] Ferrous Sulfate 300 mg 02/18/18 10:00 02/19/18 09:30 Feosol GT 300 mg DAILY [facility] Administration Piperacillin Sod/Tazobactam 50 mls @ 100 mls/hr 02/18/18 02:00 02/20/18 01:58 Sod 2.25 gm/ Dextrose IVPB 100 mls/hr Q8H-IV [facility] Administration Protocol Insulin Aspart 1 vial 02/19/18 08:16 02/20/18 06:11 Novolog Vial Sliding Scale - SQ 6 units ACHS [facility] Administration Protocol Insulin Detemir 15 units 02/19/18 08:15 02/19/18 22:12 Levemir Vial SQ 15 units HS [facility] Administration Lactobacillus Acidophilus 1 tab 02/18/18 10:00 02/19/18 09:29 Bacid - GT 1 tab DAILY [facility] Administration Levothyroxine Sodium 37.5 mcg 02/18/18 07:00 02/20/18 06:11 Synthroid - PEG 37.5 mcg DAILY@0700 [facility] Administration Methylprednisolone Sodium Succinate 40 mg 02/18/18 10:00 02/19/18 09:29 Solu-Medrol - IVPUSH 40 mg DAILY [facility] Administration Mupirocin 1 applic 02/17/18 22:00 Bactroban Ointment (For Decolonization) - NS 02/22/18 09:59 BID [facility] Oxybutynin Chloride 5 mg 02/17/18 22:00 02/19/18 22:11 Ditropan - NGT 5 mg BID [facility] Administration Pantoprazole Sodium 40 mg 02/18/18 10:00 02/19/18 09:29 Protonix Iv IVPUSH 40 mg DAILY [facility] Administration Sertraline HCl 25 mg 02/17/18 17:27 02/19/18 09:30 Zoloft - PO 25 mg DAILY [facility] Administration Sucralfate 1 gm 02/19/18 11:00 02/20/18 06:11 Carafate Oral Suspension - PEG 1 gm ACHS [facility] Administration Tamsulosin HCl 0.4 mg 02/18/18 08:30 02/20/18 09:38 Flomax - PO 0.4 mg DAILY@0830 [facility] Administration Last Vital Signs Temp Pulse Resp BP Pulse Ox 98.9 F 70 17 118/52 99 02/20/18 06:22 02/20/18 08:17 02/20/18 08:17 02/20/18 06:22 02/20/18 08:17 General resting comfortable. opens eyes on verbal stimuli HEENT PERRL. minimal on suction +trach CV S1 S2 RRR no murmur/rub/gallop Lungs Coarse breath sounds Abdomen soft +distended. erythema surrounding PEG tube with some non active bleeding. +BS Extremities no pedal edema. contracted B/L upper extremities with rigidity on movement Neuro does not follow commands Microbiology 02/17/18 03:00 Blood - Peripheral Venous Blood Culture - Preliminary NO GROWTH OBTAINED AFTER 72 HOURS, INCUBATION TO CONTINUE FOR 2 DAYS. 02/17/18 03:00 Blood - Peripheral Venous Blood Culture - Preliminary NO GROWTH OBTAINED AFTER 72 HOURS, INCUBATION TO CONTINUE FOR 2 DAYS. 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 Admitted on 02/17/18 from [facility] chronic respiratory failure and severe anemia with a hg of 5.5 and hypotension. 1. Acute on chronic respiratory failure- due to aspiration PNA. now improved. has returned to baseline vent settings. as per son he has not been weanable. on medrol 40mg IV for several days with no wheezing. will switch to pred 40mg. pulmonary on board 2. Aspiration PNA- on zosyn day 5. plan to transition to po after 7 days IV. ID on board 3. Multifactorial anemia- s/p 6 units PRBC this hospital stay. with 2 units given yesterday. hgb stable. plan to start JAVED today as son does agree. will hold off any further imaging to locate source of bleeding. as per son had colonoscopy 2 years ago and reports it as negative. hematology on board. on iron supplementation 4. Acute on CKD- hypoperfusion. Cr stable. BUN trending up can be due to steroids use. now switched to po. nephro on board 5. Thrombophilia- will d/c protonix. place on H2 andrew. 6. DM- uncontrolled. likely due to infection and steroids. will increase levemir to 20 units HS. cont iss. titrate as needed to optimize control 7. TBI- s/p trach and PEG 8. 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 9. legally blind and deaf 10. hypothyroid- on Lt4 11. urinary incontinence- with chronic indwelling christopher. cont oxybutin/flomax 12. depression- on zoloft 13. DVT ppx- SCD. would hold pharmacologic anticoagulation given persistent anemia. 14. extensive conversation with the son regarding plan. all questions answered. Visit type - Emergency Visit Emergency Visit: Yes ED Registration Date: 02/17/18 Care time: The patient presented to the Emergency Department on the above date and was hospitalized for further evaluation of their emergent condition. - New Patient This patient is new to me today: No - Critical Care Critical Care patient: No - Discharge Referral Referred to [facility] Med P.C.: No
[2018-02-20] MEDS ORDERED: PT OWN MED DRAWER 7, Y5N ONE ×3 (11:27→18:57)
[2018-02-20] MEDS: LACTOBACILLUS ACIDOPHILUS 1 TABLET GT SCH (11:35)
[2018-02-20] MEDS: ARTIFICIAL TEARS (POLYVINYL ALCOHOL 1.4%) OPTH DROPS OU SCH ×2 (11:35→23:04)
[2018-02-20] MEDS: PANTOPRAZOLE SODIUM 40 MG VIAL IVPUSH SCH (11:35)
[2018-02-20] MEDS: FERROUS SO4 300 MG/5 ML ORAL SOLN UNIT DOSE CUPS GT SCH (11:35)
[2018-02-20] MEDS: SERTRALINE HCL 25 MG TABLET (FP) PO SCH (11:35)
[2018-02-20] MEDS: OXYBUTYNIN CHLORIDE 5 MG TABLET NGT SCH ×2 (11:37→23:04)
[2018-02-20] MEDS: methylPREDNISolone NA SUCC 40 MG/1 ML VIAL IVPUSH SCH (11:37)
[2018-02-20] MEDS: DOCUSATE SODIUM 100 MG CAPSULE (FP) PO SCH (11:40)
[2018-02-20] MEDS ORDERED: INSULIN (NOVOLOG) ASPART 100 UNITS/ML 10ML VIAL ONE ×4 (12:19→18:55)
[2018-02-20 14:08] LABS: BASO % 0.1 % (0-2.0); EOS % 0.9 % (0-4.5); HEMATOCRIT 25.3 % (35.4-49); HEMOGLOBIN 8.5 GM/dL (11.7-16.9); LYMPH % 11.3 % (8-40); MCH 29.1 pg (25.7-33.7); MCHC 33.8 g/dl (32.0-35.9); MEAN CELL VOLUME 86.2 fl (80-96); MEAN PLT VOLUME 9.9 fl (7.5-11.1); MONO % 3.7 % (3.8-10.2); PLATELET COUNT 133 K/MM3 (134-434); RBC 2.93 M/mm3 (4.00-5.60)
[2018-02-20] MEDS: COLLAGENASE CLOSTRIDIUM HIST. 30 GRAMS TUBE TP SCH (15:00)
--- NOTE | 2018-02-20 15:36 | PN ---
Progress Note (short form) - Note Progress Note: Pt seen and examined family memebrs at bedside. labs/chart reviewed. unable to obtain about ROS Constitutional: Yes: Vented Eyes: Yes: Conjunctiva Clear HENT: Yes: Other (vented) Cardiovascular: Yes: Tachycardia Respiratory: Yes: Other (vent-dependant) Gastrointestinal: Yes: +PEG Last Vital Signs Temp Pulse Resp BP Pulse Ox 98.8 F 70 21 106/57 95 02/19/18 14:50 02/19/18 14:50 02/19/18 16:14 02/19/18 14:50 02/19/18 02:11 CBC, BMP 02/19/18 06:35 02/19/18 06:35 Current Medications Generic Name Dose Route Start Last Admin Trade Name Freq PRN Reason Stop Dose Admin Acetaminophen 650 mg 02/17/18 17:28 Tylenol - PO Q4H PRN FEVER Artificial Tears 2 drop 02/17/18 22:00 02/19/18 09:30 Artificial Tears OU 2 drop BID [facility] Administration Atorvastatin Calcium 10 mg 02/17/18 22:00 02/18/18 23:11 Lipitor - GT 10 mg HS [facility] Administration Bacitracin 1 applic 02/17/18 22:00 02/19/18 06:25 Bacitracin - TP 1 applic TID [facility] Administration Chlorhexidine Gluconate 1 applic 02/17/18 22:00 Hibiclens For Decolonization - TP HS [facility] Collagenase 1 applic 02/19/18 16:00 Santyl - TP DAILY [facility] Docusate Sodium 100 mg 02/18/18 10:00 02/19/18 09:40 Colace - PO Not Given DAILY [facility] Ferrous Sulfate 300 mg 02/18/18 10:00 02/19/18 09:30 Feosol GT 300 mg DAILY [facility] Administration Piperacillin Sod/Tazobactam 50 mls @ 100 mls/hr 02/18/18 02:00 02/19/18 09:29 Sod 2.25 gm/ Dextrose IVPB 100 mls/hr Q8H-IV [facility] Administration Protocol Insulin Aspart 1 vial 02/19/18 08:16 02/19/18 11:44 Novolog Vial Sliding Scale - SQ 6 units ACHS [facility] Administration Protocol Insulin Detemir 15 units 02/19/18 08:15 Levemir Vial SQ HS [facility] Lactobacillus Acidophilus 1 tab 02/18/18 10:00 02/19/18 09:29 Bacid - GT 1 tab DAILY [facility] Administration Levothyroxine Sodium 37.5 mcg 02/18/18 07:00 02/19/18 06:20 Synthroid - PEG 37.5 mcg DAILY@0700 [facility] Administration Methylprednisolone Sodium Succinate 40 mg 02/18/18 10:00 02/19/18 09:29 Solu-Medrol - IVPUSH 40 mg DAILY [facility] Administration Mupirocin 1 applic 02/17/18 22:00 Bactroban Ointment (For Decolonization) - NS 02/22/18 09:59 BID [facility] Oxybutynin Chloride 5 mg 02/17/18 22:00 02/19/18 09:29 Ditropan - NGT 5 mg BID [facility] Administration Pantoprazole Sodium 40 mg 02/18/18 10:00 02/19/18 09:29 Protonix Iv IVPUSH 40 mg DAILY [facility] Administration Sertraline HCl 25 mg 02/17/18 17:27 02/19/18 09:30 Zoloft - PO 25 mg DAILY [facility] Administration Sucralfate 1 gm 02/19/18 11:00 02/19/18 11:54 Carafate Oral Suspension - PEG 1 gm ACHS [facility] Administration Tamsulosin HCl 0.4 mg 02/18/18 08:30 02/19/18 08:46 Flomax - PO 0.4 mg DAILY@0830 [facility] Administration Anemia Mild thrombocytopenia CKD Sarcal ulcer Trach/vent/peg dependant Other Co-morbids frequent pneumonia, emphysema, A-fib, CHF, DM, dementia, renal failure, nonverbal TBI, paraplegia Anemia CBC stable--reviewed labs on paper will f/u on the w/u sent for procrit today, then weekly. d/w son. further w/u as outlined prior, pending CBC stabilization. Rise in LFTs--monitor, GI f/u. renal f/u.
[2018-02-20] MEDS ORDERED: EPOETIN ALFA 40,000 UNIT/1 ML VIAL SQ ONE (18:00)
--- NOTE | 2018-02-20 22:02 | PN ---
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 anemia Current Medications Acetaminophen (Tylenol -) 650 mg PO Q4H PRN PRN Reason: FEVER Artificial Tears (Artificial Tears) 2 drop OU BID [facility] Last Admin: 02/20/18 11:35 Dose: 2 drop Atorvastatin Calcium (Lipitor -) 10 mg GT HS [facility] Last Admin: 02/19/18 22:11 Dose: 10 mg Bacitracin (Bacitracin -) 1 applic TP TID [facility] Last Admin: 02/20/18 15:00 Dose: 1 applic Chlorhexidine Gluconate (Hibiclens For Decolonization -) 1 applic TP HS [facility] Collagenase (Santyl -) 1 applic TP DAILY [facility] Last Admin: 02/20/18 15:00 Dose: 1 applic Docusate Sodium (Colace -) 100 mg PO DAILY [facility] Last Admin: 02/20/18 11:40 Dose: Not Given Ferrous Sulfate (Feosol) 300 mg GT DAILY [facility] Last Admin: 02/20/18 11:35 Dose: 300 mg Piperacillin Sod/Tazobactam (Sod 2.25 gm/ Dextrose) 50 mls @ 100 mls/hr IVPB Q8H-IV [facility]; Protocol Last Admin: 02/20/18 18:21 Dose: 100 mls/hr Insulin Aspart (Novolog Vial Sliding Scale -) 1 vial SQ ACHS [facility]; Protocol Last Admin: 02/20/18 18:20 Dose: 6 units Insulin Detemir (Levemir Vial) 20 units SQ HS [facility] Lactobacillus Acidophilus (Bacid -) 1 tab GT DAILY [facility] Last Admin: 02/20/18 11:35 Dose: 1 tab Levothyroxine Sodium (Synthroid -) 37.5 mcg PEG DAILY@0700 [facility] Last Admin: 02/20/18 06:11 Dose: 37.5 mcg Mupirocin (Bactroban Ointment (For Decolonization) -) 1 applic NS BID [facility] Stop: 02/22/18 09:59 Oxybutynin Chloride (Ditropan -) 5 mg NGT BID [facility] Last Admin: 02/20/18 11:37 Dose: 5 mg Prednisolone Sodium Phosphate (Orapred (5mg/5ml) Oral Solution -) 40 mg PEG DAILY [facility] Ranitidine HCl (Zantac Oral Solution -) 150 mg PEG DAILY [facility] Sertraline HCl (Zoloft -) 25 mg PO DAILY [facility] Last Admin: 02/20/18 11:35 Dose: 25 mg Sucralfate (Carafate Oral Suspension -) 1 gm PEG ACHS [facility] Last Admin: 02/20/18 18:21 Dose: 1 gm Tamsulosin HCl (Flomax -) 0.4 mg PO DAILY@0830 [facility] Last Admin: 02/20/18 09:38 Dose: 0.4 mg Last Vital Signs Temp Pulse Resp BP Pulse Ox 98.5 F 80 18 114/58 99 02/20/18 18:16 02/20/18 18:16 02/20/18 22:03 02/20/18 18:16 02/20/18 08:17 CBC, BMP 02/20/18 07:55 [id number] Prerenal azotemia Plan- continue present regimen
[2018-02-20] MEDS: ATORVASTATIN CA 10 MG TABLET (FP) GT SCH (23:04)
[2018-02-20] MEDS: INSULIN (LEVEMIR) 100 UNITS/ML UNITS SQ SCH (23:05)
[2018-02-21] MEDS ORDERED: DEXTROSE 5%-WATER - 50 ML IVPB ONE ×3 (02:56→16:26)
[2018-02-21] MEDS ORDERED: PIPERACILLIN/TAZOBACTAM 2.25 GM VIAL IVPB ONE ×3 (02:56→16:26)
[2018-02-21] MEDS: PIPERACILLIN/TAZOB 2.25 GM 2.25 GM in DEXTROSE 5%-WATER - 50 ML IVPB SCH ×3 (02:58→17:48)
[2018-02-21] MEDS: SUCRALFATE 1 GM/10 ML UNIT DOSE CUPS PEG SCH ×4 (06:20→22:04)
[2018-02-21] MEDS: LEVOTHYROXINE NA 25 MCG TABLET (FP) PEG SCH (06:21)
[2018-02-21] MEDS: INSULIN SLIDING SCALE (NOVOLOG) 1 VIAL SQ SCH ×4 (06:21→22:05)
[2018-02-21] MEDS: BACITRACIN 15 GM TUBE TOPICAL OINTMENT TP SCH ×3 (06:21→22:03)
[2018-02-21] MEDS: TAMSULOSIN HCL 0.4 MG CAP.ER.24H (FP) PO SCH (08:35)
[2018-02-21 09:09] LABS: HEMATOCRIT 23.1 % (35.4-49); HEMOGLOBIN 7.8 GM/dL (11.7-16.9); MCH 29.6 pg (25.7-33.7); PLATELET COUNT 141 K/MM3 (134-434); RBC 2.65 M/mm3 (4.00-5.60); RDW 18.8 % (11.9-15.9); WHITE BLOOD COUNT 8.7 K/mm3 (4.0-10.0)
--- NOTE | 2018-02-21 09:09 | PN ---
Progress Note, Physician History of Present Illness: 87M w/ pmh of traumatic fall (s/p neck (C4,5, and 6)/back surgery, tracheotomy placement now ventilator dependent, and PEG tube placement), frequent pneumonia , emphysema, A-fib, CHF, DM, dementia, renal failure, nonverbal TBI, paraplegia , and legal blindness and deafness, who presents to the emergency department via EMS from [facility] with 3 days of hypotension. As per patients son , his blood pressure has been decreasing over the past few days. He reports that at baseline, his systolic is between 110-119 in the mornings and between 100-109 at night. Pt has failed 5 weaning trials in the last few days, and it was noticed that there was blood around the tracheostomy site when suctioning. Pt' son denies recent fevers, chills, chest pain, emesis, hematemesis, melena, and hematochezia in pt. - Current Medication List Current Medications: Active Medications Acetaminophen (Tylenol -) 650 mg PO Q4H PRN PRN Reason: FEVER Artificial Tears (Artificial Tears) 2 drop OU BID [facility] Last Admin: 02/20/18 23:04 Dose: 2 drop Atorvastatin Calcium (Lipitor -) 10 mg GT HS [facility] Last Admin: 02/20/18 23:04 Dose: 10 mg Bacitracin (Bacitracin -) 1 applic TP TID [facility] Last Admin: 02/21/18 06:21 Dose: 1 applic Collagenase (Santyl -) 1 applic TP DAILY [facility] Last Admin: 02/20/18 15:00 Dose: 1 applic Docusate Sodium (Colace -) 100 mg PO DAILY [facility] Last Admin: 02/20/18 11:40 Dose: Not Given Ferrous Sulfate (Feosol) 300 mg GT DAILY [facility] Last Admin: 02/20/18 11:35 Dose: 300 mg Piperacillin Sod/Tazobactam (Sod 2.25 gm/ Dextrose) 50 mls @ 100 mls/hr IVPB Q8H-IV [facility]; Protocol Last Admin: 02/21/18 02:58 Dose: 100 mls/hr Insulin Aspart (Novolog Vial Sliding Scale -) 1 vial SQ ACHS [facility]; Protocol Last Admin: 02/21/18 06:21 Dose: 4 units Insulin Detemir (Levemir Vial) 20 units SQ [facility] Last Admin: 02/20/18 23:05 Dose: 20 units Lactobacillus Acidophilus (Bacid -) 1 tab GT DAILY [facility] Last Admin: 02/20/18 11:35 Dose: 1 tab Levothyroxine Sodium (Synthroid -) 37.5 mcg PEG DAILY@0700 [facility] Last Admin: 02/21/18 06:21 Dose: 37.5 mcg Oxybutynin Chloride (Ditropan -) 5 mg NGT BID [facility] Last Admin: 02/20/18 23:04 Dose: 5 mg Prednisolone Sodium Phosphate (Orapred (15 Mg/5 Ml) Oral Solution -) 40 mg PEG DAILY [facility] Ranitidine HCl (Zantac Oral Solution -) 150 mg PEG DAILY [facility] Sertraline HCl (Zoloft -) 25 mg PO DAILY [facility] Last Admin: 02/20/18 11:35 Dose: 25 mg Sucralfate (Carafate Oral Suspension -) 1 gm PEG ACHS [facility] Last Admin: 02/21/18 06:20 Dose: 1 gm Tamsulosin HCl (Flomax -) 0.4 mg PO DAILY@0830 [facility] Last Admin: 02/20/18 09:38 Dose: 0.4 mg - Objective Vital Signs: Vital Signs Temperature 98.8 F 02/21/18 06:57 Pulse Rate 82 02/21/18 06:57 Respiratory Rate 14 02/21/18 07:19 Blood Pressure 138/60 02/21/18 06:57 O2 Sat by Pulse Oximetry (%) 99 02/20/18 21:00 Eyes: Yes: WNL, Conjunctiva Clear, EOM Intact HENT: Yes: WNL, Atraumatic, Normocephalic Neck: Yes: WNL, Supple, Trachea Midline Cardiovascular: Yes: WNL, Regular Rate and Rhythm Respiratory: Yes: Mechanically Ventilated Gastrointestinal: Yes: WNL, Normal Bowel Sounds Genitourinary: Yes: WNL Musculoskeletal: Yes: WNL Extremities: Yes: WNL Edema: No Integumentary: Yes: WNL ...Motor Strength: WNL Psychiatric: Yes: WNL Labs: INR, PTT INR 1.13 (0.82-1.09) 02/16/18 22:40 Assessment/Plan /p neck (C4,5, and 6)/back surgery, tracheotomy placement now ventilator dependent, and PEG tube placement), frequent pneumonia, emphysema, A-fib, CHF, DM, dementia, renal failure, nonverbal TBI, paraplegia, and legal blindness and deafness, who presents to the emergency department via EMS from [facility] with 3 days of hypotension and anemia. paf in sr sepsis worsening anemia Plan consider further transfussions gi/gu renal eval cardiac hall stable PAf in sr echo nl ef cont abx
[2018-02-21 09:37] LABS: ANION GAP 11 (8-16); CALCIUM 8.5 mg/dL (8.5-10.1); CHLORIDE 107 mmol/L (98-107); CO2 28 mmol/L (21-32); CREATININE 2.6 mg/dL (0.7-1.3); GLUCOSE,RANDOM 152 mg/dL (74-106); POTASSIUM 3.4 mmol/L (3.5-5.1); SGOT/AST 125 U/L (15-37); SODIUM 146 mmol/L (136-145)
[2018-02-21 09:40] LABS: ALK PHOS 136 U/L (45-117); BILIRUBIN,TOTAL 0.3 mg/dL (0.2-1.0); SGPT/ALT 163 U/L (12-78)
[2018-02-21 09:56] LABS: BLOOD UREA NITROGEN 194 mg/dL (7-18)
[2018-02-21] MEDS ORDERED: PT OWN MED DRAWER 7, Y5N ONE (10:14)
[2018-02-21] MEDS: OXYBUTYNIN CHLORIDE 5 MG TABLET NGT SCH ×2 (10:32→22:04)
[2018-02-21] MEDS: prednisoLONE SODIUM PHOSPHATE 15 MG/5 ML ORAL SOLN BOTTLE PEG SCH (10:32)
[2018-02-21] MEDS: DOCUSATE SODIUM 100 MG CAPSULE (FP) PO SCH (10:32)
[2018-02-21] MEDS: ARTIFICIAL TEARS (POLYVINYL ALCOHOL 1.4%) OPTH DROPS OU SCH ×2 (10:33→22:03)
[2018-02-21] MEDS: LACTOBACILLUS ACIDOPHILUS 1 TABLET GT SCH (10:33)
[2018-02-21] MEDS: SERTRALINE HCL 25 MG TABLET (FP) PO SCH (10:33)
[2018-02-21] MEDS: FERROUS SO4 300 MG/5 ML ORAL SOLN UNIT DOSE CUPS GT SCH (10:33)
[2018-02-21] MEDS: RANITIDINE HCL 150 MG/10 ML UNIT-DOSE PEG SCH (10:36)
[2018-02-21] MEDS ORDERED: POTASSIUM CHLORIDE TABS 20 MEQ TABLET.ER (FP) PO ONE (10:58)
[2018-02-21] MEDS ORDERED: INSULIN (NOVOLOG) ASPART 100 UNITS/ML 10ML VIAL ONE (11:27)
--- NOTE | 2018-02-21 11:28 | PN ---
Progress Note, Physician History of Present Illness: no new issues continues to be on vent - Current Medication List Current Medications: Active Medications Acetaminophen (Tylenol -) 650 mg PO Q4H PRN PRN Reason: FEVER Artificial Tears (Artificial Tears) 2 drop OU BID [facility] Last Admin: 02/21/18 10:33 Dose: 2 drop Atorvastatin Calcium (Lipitor -) 10 mg GT HS [facility] Last Admin: 02/20/18 23:04 Dose: 10 mg Bacitracin (Bacitracin -) 1 applic TP TID [facility] Last Admin: 02/21/18 06:21 Dose: 1 applic Collagenase (Santyl -) 1 applic TP DAILY [facility] Last Admin: 02/20/18 15:00 Dose: 1 applic Docusate Sodium (Colace -) 100 mg PO DAILY [facility] Last Admin: 02/21/18 10:32 Dose: Not Given Ferrous Sulfate (Feosol) 300 mg GT DAILY [facility] Last Admin: 02/21/18 10:33 Dose: 300 mg Piperacillin Sod/Tazobactam (Sod 2.25 gm/ Dextrose) 50 mls @ 100 mls/hr IVPB Q8H-IV [facility]; Protocol Last Admin: 02/21/18 10:31 Dose: 100 mls/hr Insulin Aspart (Novolog Vial Sliding Scale -) 1 vial SQ ACHS [facility]; Protocol Last Admin: 02/21/18 06:21 Dose: 4 units Insulin Detemir (Levemir Vial) 20 units SQ HS [facility] Last Admin: 02/20/18 23:05 Dose: 20 units Lactobacillus Acidophilus (Bacid -) 1 tab GT DAILY [facility] Last Admin: 02/21/18 10:33 Dose: 1 tab Levothyroxine Sodium (Synthroid -) 37.5 mcg PEG DAILY@0700 [facility] Last Admin: 02/21/18 06:21 Dose: 37.5 mcg Oxybutynin Chloride (Ditropan -) 5 mg NGT BID [facility] Last Admin: 02/21/18 10:32 Dose: 5 mg Prednisolone Sodium Phosphate (Orapred (15 Mg/5 Ml) Oral Solution -) 40 mg PEG DAILY [facility] Last Admin: 02/21/18 10:32 Dose: 40 mg Ranitidine HCl (Zantac Oral Solution -) 150 mg PEG DAILY [facility] Last Admin: 02/21/18 10:36 Dose: 150 mg Sertraline HCl (Zoloft -) 25 mg PO DAILY [facility] Last Admin: 02/21/18 10:33 Dose: 25 mg Sucralfate (Carafate Oral Suspension -) 1 gm PEG ACHS [facility] Last Admin: 02/21/18 10:31 Dose: 1 gm Tamsulosin HCl (Flomax -) 0.4 mg PO DAILY@0830 [facility] Last Admin: 02/21/18 08:35 Dose: 0.4 mg - Objective Vital Signs: Vital Signs Temperature 98.8 F 02/21/18 06:57 Pulse Rate 82 02/21/18 06:57 Respiratory Rate 14 02/21/18 07:19 Blood Pressure 138/60 02/21/18 06:57 O2 Sat by Pulse Oximetry (%) 99 02/20/18 21:00 Constitutional: Yes: No Distress, Calm Neck: Yes: Other Cardiovascular: Yes: S1, S2 Respiratory: Yes: Regular, Mechanically Ventilated Gastrointestinal: Yes: Normal Bowel Sounds, Soft, Other (peg tube in place) Musculoskeletal: Yes: WNL Extremities: Yes: WNL Neurological: Yes: Other Psychiatric: Yes: Other Labs: CBC, BMP 02/21/18 08:30 02/21/18 09:00 INR, PTT INR 1.13 (0.82-1.09) 02/16/18 22:40 Assessment/Plan Problem List - Problems (1) Anemia Code(s): D64.9 - ANEMIA, UNSPECIFIED (2) Chronic kidney disease, stage 3 Code(s): N18.3 - CHRONIC KIDNEY DISEASE, STAGE 3 (MODERATE) (3) Chronic respiratory failure Code(s): J96.10 - CHRONIC RESPIRATORY FAILURE, UNSP W HYPOXIA OR HYPERCAPNIA Qualifiers: Respiratory failure complication: unspecified whether with hypoxia or hypercapnia Qualified Code(s): J96.10 - Chronic respiratory failure, unspecified whether with hypoxia or hypercapnia (4) PAF (paroxysmal atrial fibrillation) Code(s): I48.0 - PAROXYSMAL ATRIAL FIBRILLATION (5) Renal failure Code(s): N19 - UNSPECIFIED KIDNEY FAILURE Qualifiers: Renal failure chronicity: unspecified chronicity Qualified Code(s): N19 - Unspecified kidney failure (6) Diabetes Code(s): E11.9 - TYPE 2 DIABETES MELLITUS WITHOUT COMPLICATIONS (7) TBI (traumatic brain injury) Code(s): S06.9X9A - UNSP INTRACRANIAL INJURY W LOC OF UNSP DURATION, INIT (8) Oxnwf-uf-nnkkacy kidney injury Code(s): N17.9 - ACUTE KIDNEY FAILURE, UNSPECIFIED; N18.9 - CHRONIC KIDNEY DISEASE, UNSPECIFIED (9) Qayll-os-bzselkw renal failure Code(s): N17.9 - ACUTE KIDNEY FAILURE, UNSPECIFIED; N18.9 - CHRONIC KIDNEY DISEASE, UNSPECIFIED (10) Hypotension Code(s): I95.9 - HYPOTENSION, UNSPECIFIED (11) Hypotension Code(s): I95.9 - HYPOTENSION, UNSPECIFIED I plan continue abx for now will deescalte probably by thursday hydration rest as per the team await for todays labs look at the source
[2018-02-21] MEDS ORDERED: LACTOBACILLUS ACIDOPHILUS 1 TABLET GT SCH (11:30)
[2018-02-21] MEDS ORDERED: DOCUSATE NA 100 MG/10 ML UNIT-DOSE CUPS PO PRN (11:37)
[2018-02-21] MEDS ORDERED: POTASSIUM CHLORIDE ORAL LIQUID 20 MEQ/15 ML PO ONE (11:37)
--- NOTE | 2018-02-21 12:09 | PN ---
Physical Exam: SUBJECTIVE: Patient seen and examined at bedside. No acute events. Pt had recently had bleeding. No blood at trach site. H&H stable. Pt got Epo yest. OBJECTIVE: Vital Signs Period Temp Pulse Resp BP Sys/Wills Pulse Ox Last 24 Hr 98.5 F-99.0 F 53-89 14-20 110-138/50-60 98-99 Gen: unresponsive to verbal command. Grimace to sternal rub HEENT: NCAT Neck: trach tube in place. No blood at stoma. functioning well Cardio: rrr, norm s1s2, no m/r/g appreciated Lungs: coarse breath sounds anteriorly Abd: soft, distended Ext: 1+ pulses, no edema Laboratory Results - last 24 hr 02/17/18 02/18/18 02/19/18 00:03 06:20 12:30 WBC RBC Hgb Hct MCV MCH MCHC RDW Plt Count MPV Absolute Neuts (auto) Neutrophils % Lymphocytes % Monocytes % Eosinophils % Basophils % Nucleated RBC % Haptoglobin Sodium Potassium Chloride Carbon Dioxide Anion Gap BUN Creatinine Creat Clearance w eGFR POC Glucometer Random Glucose Calcium Magnesium Total Bilirubin AST ALT Alkaline Phosphatase LD Total Total Protein Albumin Stool Occult Blood Positive ELISABETH Screen Negative Blood Type O POSITIVE Antibody Screen Negative Direct Antiglob Test Crossmatch See Detail 02/20/18 02/20/18 02/20/18 06:05 07:55 07:55 WBC 6.3 RBC 2.73 L Hgb 8.0 L Hct 23.5 L MCV 86.2 MCH 29.4 MCHC 34.1 RDW 19.2 H Plt Count 127 L MPV 10.0 Absolute Neuts (auto) 4.6 Neutrophils % 71.8 Lymphocytes % 18.9 D Monocytes % 8.5 D Eosinophils % 0.5 D Basophils % 0.3 Nucleated RBC % 0 Haptoglobin Sodium 143 Potassium 3.6 Chloride 105 Carbon Dioxide 28 Anion Gap 10 BUN 177 H* Creatinine 2.6 H Creat Clearance w eGFR 23.58 POC Glucometer 275 Random Glucose 190 H D Calcium 8.4 L Magnesium 2.4 Total Bilirubin 0.3 D AST 151 H D ALT 146 H D Alkaline Phosphatase 137 H LD Total 252 H Total Protein 5.9 L Albumin 2.0 L Stool Occult Blood ELISABETH Screen Blood Type Antibody Screen Direct Antiglob Test Crossmatch 02/20/18 02/20/18 02/20/18 07:55 08:44 08:44 WBC RBC Hgb Hct MCV MCH MCHC RDW Plt Count MPV Absolute Neuts (auto) Neutrophils % Lymphocytes % Monocytes % Eosinophils % Basophils % Nucleated RBC % Haptoglobin 113 Sodium Cancelled Potassium Cancelled Chloride Cancelled Carbon Dioxide Cancelled Anion Gap Cancelled BUN Cancelled Creatinine Cancelled Creat Clearance w eGFR Cancelled POC Glucometer Random Glucose Cancelled Calcium Cancelled Magnesium Total Bilirubin Cancelled AST Cancelled ALT Cancelled Alkaline Phosphatase Cancelled LD Total Cancelled Total Protein Cancelled Albumin Cancelled Stool Occult Blood ELISABETH Screen Blood Type Antibody Screen Direct Antiglob Test Negative Crossmatch 02/20/18 02/20/18 02/20/18 12:17 13:40 18:18 WBC RBC Hgb Hct MCV 86.2 MCH 29.1 MCHC 33.8 RDW 19.0 H Plt Count MPV 9.9 Absolute Neuts (auto) 5.8 Neutrophils % Lymphocytes % Monocytes % 3.7 L Eosinophils % 0.9 Basophils % 0.1 Nucleated RBC % 0 Haptoglobin Sodium Potassium Chloride Carbon Dioxide Anion Gap BUN Creatinine Creat Clearance w eGFR POC Glucometer 230 269 Random Glucose Calcium Magnesium Total Bilirubin AST ALT Alkaline Phosphatase LD Total Total Protein Albumin Stool Occult Blood ELISABETH Screen Blood Type Antibody Screen Direct Antiglob Test Crossmatch 02/20/18 02/21/18 02/21/18 23:02 06:20 08:30 WBC 8.7 RBC 2.65 L Hgb 7.8 L Hct 23.1 L MCV 87.0 MCH 29.6 MCHC 34.0 RDW 18.8 H Plt Count 141 MPV 10.0 Absolute Neuts (auto) Neutrophils % Lymphocytes % Monocytes % Eosinophils % Basophils % Nucleated RBC % Haptoglobin Sodium Potassium Chloride Carbon Dioxide Anion Gap BUN Creatinine Creat Clearance w eGFR POC Glucometer 275 210 Random Glucose Calcium Magnesium Total Bilirubin AST ALT Alkaline Phosphatase LD Total Total Protein Albumin Stool Occult Blood ELISABETH Screen Blood Type Antibody Screen Direct Antiglob Test Crossmatch 02/21/18 09:00 WBC RBC Hgb Hct MCV MCH MCHC RDW Plt Count MPV Absolute Neuts (auto) Neutrophils % Lymphocytes % Monocytes % Eosinophils % Basophils % Nucleated RBC % Haptoglobin Sodium 146 H Potassium 3.4 L Chloride 107 Carbon Dioxide 28 Anion Gap 11 BUN 194 H* Creatinine 2.6 H Creat Clearance w eGFR 23.58 POC Glucometer Random Glucose 152 H Calcium 8.5 Magnesium Total Bilirubin 0.3 AST 125 H ALT 163 H Alkaline Phosphatase 136 H LD Total Total Protein 6.0 L Albumin 2.0 L Stool Occult Blood ELISABETH Screen Blood Type Antibody Screen Direct Antiglob Test Crossmatch Active Medications Generic Name Dose Route Start Last Admin Trade Name Freq PRN Reason Stop Dose Admin Acetaminophen 650 mg 02/17/18 17:28 Tylenol - PO Q4H PRN FEVER Artificial Tears 2 drop 02/17/18 22:00 02/21/18 10:33 Artificial Tears OU 2 drop BID [facility] Administration Atorvastatin Calcium 10 mg 02/17/18 22:00 02/20/18 23:04 Lipitor - GT 10 mg HS [facility] Administration Bacitracin 1 applic 02/17/18 22:00 02/21/18 06:21 Bacitracin - TP 1 applic TID [facility] Administration Collagenase 1 applic 02/19/18 16:00 02/20/18 15:00 Santyl - TP 1 applic DAILY [facility] Administration Docusate Sodium 100 mg 02/21/18 11:37 Colace Liquid - PO DAILY PRN [facility]STIP[facility] Ferrous Sulfate 300 mg 02/18/18 10:00 02/21/18 10:33 Feosol GT 300 mg DAILY [facility] Administration Piperacillin Sod/Tazobactam 50 mls @ 100 mls/hr 02/18/18 02:00 02/21/18 10:31 Sod 2.25 gm/ Dextrose IVPB 100 mls/hr Q8H-IV [facility] Administration Protocol Insulin Aspart 1 vial 02/19/18 08:16 02/21/18 11:50 Novolog Vial Sliding Scale - SQ 2 units ACHS [facility] Administration Protocol Insulin Detemir 20 units 02/20/18 11:05 02/20/18 23:05 Levemir Vial SQ 20 units HS [facility] Administration Levothyroxine Sodium 37.5 mcg 02/18/18 07:00 02/21/18 06:21 Synthroid - PEG 37.5 mcg DAILY@0700 [facility] Administration Oxybutynin Chloride 5 mg 02/17/18 22:00 02/21/18 10:32 Ditropan - NGT 5 mg BID [facility] Administration Prednisolone Sodium Phosphate 40 mg 02/21/18 10:00 02/21/18 10:32 Orapred (15 Mg/5 Ml) Oral Solution - PEG 40 mg DAILY [facility] Administration Ranitidine HCl 150 mg 02/21/18 10:00 02/21/18 10:36 Zantac Oral Solution - PEG 150 mg DAILY [facility] Administration Senna 8.8 mg 02/21/18 22:00 Senna Oral Solution - PO HS [facility] Sertraline HCl 25 mg 02/17/18 17:27 02/21/18 10:33 Zoloft - PO 25 mg DAILY [facility] Administration Sucralfate 1 gm 02/19/18 11:00 02/21/18 10:31 Carafate Oral Suspension - PEG 1 gm ACHS [facility] Administration Tamsulosin HCl 0.4 mg 02/18/18 08:30 02/21/18 08:35 Flomax - PO 0.4 mg DAILY@0830 [facility] Administration ASSESSMENT/PLAN: Pt is an 87 y/o M with PMH significant for TBI (08/2017) s/p trach and vent dependent, PEG, paraplegia, dCHF, NIDDM, CKD, deaf, blind who presented to ED from [facility] with respiratory failure and severe anemia with hypotension. Pt is admitted to Med-Surg. #Acute on chronic resp failure -likely 2/2 aspiration PNA -at baseline vent settings: AC Tv 450, RR 14, FiO2 28, PEEP 5 -Initially on Medrol 40. d/c'ed -Prednisone 40 -Pulm on board #Asp PNA -Zosyn -ID on board: rec possible deescalation of Abx by Mon #Anemia -was transfused 6 PRBCs total -Hb stable last 2 days -Given Epo yest -Heme on board: will give weekly Epo -No obvious active bleed -per son, had negative colonoscopy 2 years ago #Acute on CKD - [employer] stabilized around 2.6 - BUN up-trending -? etiology. ?steroids vs GIB vs dehydration -Nepro on board: prerenal #Thrombophilia - Resolved -plt wnl #DM -Levemir was increased -ISS -glucose continue to be elevated in 150s -titrate Insulin #TBI -s/p trach and PEG -secondary paraplegia #Hypothyroid -c/w synthroid #Incontinence -christopher -flomax -oxybutinin #depression -zoloft #FEN -Not on fluids. Increased flushes given via G-tube -lytes: mild hypoK. Repleting -Nutrition: via G-tube. Nepro #PPx -held in setting of possible bleed #Dispo -med surg Note: went to speak with son, but he had left already. Asked unit supervisor to call if son returns or wants to speak with me. Elia Prieto MD PGY-1 IM Visit type - Emergency Visit Emergency Visit: No - New Patient This patient is new to me today: Yes Date on this admission: 02/21/18 - Critical Care Critical Care patient: No - Discharge Referral Referred to [facility] Med P.C.: No
[2018-02-21] MEDS: COLLAGENASE CLOSTRIDIUM HIST. 30 GRAMS TUBE TP SCH (14:46)
--- NOTE | 2018-02-21 15:19 | PN ---
Teaching Attending Note Name of Resident: Elia Prieto ATTENDING PHYSICIAN STATEMENT I saw and evaluated the patient. I reviewed the resident's note and discussed the case with the resident. I agree with the resident's findings and plan as documented. SUBJECTIVE:resting comfortable. large black BM noted by RN OBJECTIVE: Last Vital Signs Temp Pulse Resp BP Pulse Ox 98.7 F 53 L 14 132/55 98 02/21/18 10:00 02/21/18 11:40 02/21/18 13:56 02/21/18 10:00 02/21/18 11:40 General NAD opens eyes to tactile stimuli CV S1 S2 RRR no murmur/rub/gallop Lungs Coarse breath sounds anteriorly Abdomen soft +distention. not tender. +PEG no bleeding noted around PEG normoactive BS Extremities no pedal edema. 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 Admitted on 02/17/18 from [facility] chronic respiratory failure and severe anemia with a hg of 5.5 and hypotension. 1. Acute on chronic respiratory failure- due to aspiration PNA. now improved. has returned to baseline vent settings. as per son he has not been weanable. switched to prednisone 40mg po today can titrate down as tolerated. pulmonary on board 2. Aspiration PNA- on zosyn day 6. plan to transition to po after 7 days IV. ID on board 3. distended abdomen- remains distended. will obtain AXR to evaluate for ileus. low suspicion for obstruction given +BS and BM although can be overflow. 4. Multifactorial anemia- s/p 6 units PRBC this hospital stay. with 2 units given yesterday. hgb stable. received JAVED today. black tarry stool today. will check FOBT was + in the past. will notify GI. hematology on board. on iron supplementation 5. Acute on CKD- hypoperfusion. Cr stable. BUN trending up can be due to steroids use or GI bleed. now switched to po. nephro on board 6. Thrombophilia-stable. off medications 7. DM-improved cont levemir. cont iss. titrate as needed to optimize control 8. TBI- s/p trach and PEG 9. 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 10. legally blind and deaf 11. hypothyroid- on Lt4 12. urinary incontinence- with chronic indwelling christopher. cont oxybutin/flomax 13. depression- on zoloft 14. DVT ppx- SCD. would hold pharmacologic anticoagulation given persistent anemia.
[2018-02-21] MEDS: PROBIOTIC GT SCH (20:07)
--- NOTE | 2018-02-21 21:17 | PN ---
Progress Note (short form) - Note Progress Note: nephrology coverage Problems TBI s/p fall and s/p neck surgery (c4,5,6) BPH, ESBL Proteus UTI, ventilator-dependence via tracheotomy, PEG tube feeding, frequent pneumonia, A-fib, CHF, DM, dementia, CKD stage III, Neuro impaired- nonverbal, quadriplegia, legally blind and deaf, Transferred from [place] with 3 day history of hypotension. anemia Current Medications Acetaminophen (Tylenol -) 650 mg PO Q4H PRN PRN Reason: FEVER Artificial Tears (Artificial Tears) 2 drop OU BID [facility] Last Admin: 02/21/18 10:33 Dose: 2 drop Atorvastatin Calcium (Lipitor -) 10 mg GT HS [facility] Last Admin: 02/20/18 23:04 Dose: 10 mg Bacitracin (Bacitracin -) 1 applic TP TID [facility] Last Admin: 02/21/18 14:46 Dose: 1 applic Collagenase (Santyl -) 1 applic TP DAILY [facility] Last Admin: 02/21/18 14:46 Dose: 1 applic Docusate Sodium (Colace Liquid -) 100 mg PO DAILY PRN PRN Reason: CONSTIPATION Ferrous Sulfate (Feosol) 300 mg GT DAILY [facility] Last Admin: 02/21/18 10:33 Dose: 300 mg Piperacillin Sod/Tazobactam (Sod 2.25 gm/ Dextrose) 50 mls @ 100 mls/hr IVPB Q8H-IV [facility]; Protocol Last Admin: 02/21/18 17:48 Dose: 100 mls/hr Insulin Aspart (Novolog Vial Sliding Scale -) 1 vial SQ ACHS [facility]; Protocol Last Admin: 02/21/18 16:34 Dose: Not Given Insulin Detemir (Levemir Vial) 20 units SQ [facility] Last Admin: 02/20/18 23:05 Dose: 20 units Levothyroxine Sodium (Synthroid -) 37.5 mcg PEG DAILY@0700 [facility] Last Admin: 02/21/18 06:21 Dose: 37.5 mcg Non-Formulary Med ( (Probiotic)) 1 each GT DAILY [facility] Last Admin: 02/21/18 20:07 Dose: Not Given Oxybutynin Chloride (Ditropan -) 5 mg NGT BID [facility] Last Admin: 02/21/18 10:32 Dose: 5 mg Prednisolone Sodium Phosphate (Orapred (15 Mg/5 Ml) Oral Solution -) 40 mg PEG DAILY [facility] Last Admin: 02/21/18 10:32 Dose: 40 mg Ranitidine HCl (Zantac Oral Solution -) 150 mg PEG DAILY [facility] Last Admin: 02/21/18 10:36 Dose: 150 mg Senna (Senna Oral Solution -) 8.8 mg PO HS [facility] Sertraline HCl (Zoloft -) 25 mg PO DAILY [facility] Last Admin: 02/21/18 10:33 Dose: 25 mg Sucralfate (Carafate Oral Suspension -) 1 gm PEG ACHS [facility] Last Admin: 02/21/18 16:25 Dose: Not Given Tamsulosin HCl (Flomax -) 0.4 mg PO DAILY@0830 [facility] Last Admin: 02/21/18 08:35 Dose: 0.4 mg Last Vital Signs Temp Pulse Resp BP Pulse Ox 98.3 F 67 14 114/68 98 02/21/18 18:00 02/21/18 18:00 02/21/18 18:00 02/21/18 18:00 02/21/18 11:40 lungs clear heart reg abd soft no guarding ext no edema CBC, BMP 02/21/18 08:30 02/21/18 09:00 [id number] Prerenal azotemia relatively stable Plan- continue present regimen
[2018-02-21] MEDS: ATORVASTATIN CA 10 MG TABLET (FP) GT SCH (22:04)
[2018-02-21] MEDS: INSULIN (LEVEMIR) 100 UNITS/ML UNITS SQ SCH (22:04)
[2018-02-21] MEDS: SENNOSIDES 8.8 MG/5 ML BULK BOTTLE PO SCH (22:05)
[2018-02-22] MEDS ORDERED: PIPERACILLIN/TAZOBACTAM 2.25 GM VIAL IVPB ONE ×3 (01:33→17:54)
[2018-02-22] MEDS ORDERED: DEXTROSE 5%-WATER - 50 ML IVPB ONE ×3 (01:33→17:55)
[2018-02-22] MEDS: PIPERACILLIN/TAZOB 2.25 GM 2.25 GM in DEXTROSE 5%-WATER - 50 ML IVPB SCH ×3 (02:41→17:59)
[2018-02-22] MEDS: SUCRALFATE 1 GM/10 ML UNIT DOSE CUPS PEG SCH ×4 (06:14→21:17)
[2018-02-22] MEDS: BACITRACIN 15 GM TUBE TOPICAL OINTMENT TP SCH ×3 (06:14→21:33)
[2018-02-22] MEDS: INSULIN SLIDING SCALE (NOVOLOG) 1 VIAL SQ SCH ×4 (06:15→22:23)
[2018-02-22] MEDS: LEVOTHYROXINE NA 25 MCG TABLET (FP) PEG SCH (06:15)
[2018-02-22] MEDS ORDERED: INSULIN (NOVOLOG) ASPART 100 UNITS/ML 10ML VIAL SQ ONE (06:53)
[2018-02-22] MEDS ORDERED: ALBUTEROL SO4 2.5/IPRATROPIUM 0.5 INH SOL 3 ML VIAL.NEB. NEB ONE (07:22)
[2018-02-22] MEDS: TAMSULOSIN HCL 0.4 MG CAP.ER.24H (FP) PO SCH (08:27)
[2018-02-22 09:40] LABS: BASO % 0.3 % (0-2.0); HEMATOCRIT 20.5 % (35.4-49); LYMPH % 18.5 % (8-40); MCH 28.8 pg (25.7-33.7); MCHC 32.4 g/dl (32.0-35.9); MEAN CELL VOLUME 88.8 fl (80-96); MEAN PLT VOLUME 10.6 fl (7.5-11.1); NEUT % 71.2 % (42.8-82.8); PLATELET COUNT 153 K/MM3 (134-434); RBC 2.31 M/mm3 (4.00-5.60); RDW 20.2 % (11.9-15.9); WHITE BLOOD COUNT 8.7 K/mm3 (4.0-10.0)
[2018-02-22 09:52] LABS: HEMOGLOBIN 6.7 GM/dL (11.7-16.9)
[2018-02-22] MEDS: ARTIFICIAL TEARS (POLYVINYL ALCOHOL 1.4%) OPTH DROPS OU SCH ×2 (09:59→21:17)
--- NOTE | 2018-02-22 10:30 | PN ---
Progress Note, Physician History of Present Illness: 87M w/ pmh of traumatic fall (s/p neck (C4,5, and 6)/back surgery, tracheotomy placement now ventilator dependent, and PEG tube placement), frequent pneumonia , emphysema, A-fib, CHF, DM, dementia, renal failure, nonverbal TBI, paraplegia , and legal blindness and deafness, who presents to the emergency department via EMS from [facility] with 3 days of hypotension. As per patients son , his blood pressure has been decreasing over the past few days. He reports that at baseline, his systolic is between 110-119 in the mornings and between 100-109 at night. Pt has failed 5 weaning trials in the last few days, and it was noticed that there was blood around the tracheostomy site when suctioning. Pt' son denies recent fevers, chills, chest pain, emesis, hematemesis, melena, and hematochezia in pt. - Current Medication List Current Medications: Active Medications Acetaminophen (Tylenol -) 650 mg PO Q4H PRN PRN Reason: FEVER Artificial Tears (Artificial Tears) 2 drop OU BID [facility] Last Admin: 02/22/18 09:59 Dose: 2 drop Atorvastatin Calcium (Lipitor -) 10 mg GT HS [facility] Last Admin: 02/21/18 22:04 Dose: Not Given Bacitracin (Bacitracin -) 1 applic TP TID [facility] Last Admin: 02/22/18 06:14 Dose: 1 applic Collagenase (Santyl -) 1 applic TP DAILY [facility] Last Admin: 02/21/18 14:46 Dose: 1 applic Docusate Sodium (Colace Liquid -) 100 mg PO DAILY PRN PRN Reason: CONSTIPATION Ferrous Sulfate (Feosol) 300 mg GT DAILY [facility] Last Admin: 02/21/18 10:33 Dose: 300 mg Piperacillin Sod/Tazobactam (Sod 2.25 gm/ Dextrose) 50 mls @ 100 mls/hr IVPB Q8H-IV [facility]; Protocol Last Admin: 02/22/18 09:59 Dose: 100 mls/hr Insulin Aspart (Novolog Vial Sliding Scale -) 1 vial SQ ACHS [facility]; Protocol Last Admin: 02/22/18 06:15 Dose: Not Given Insulin Detemir (Levemir Vial) 20 units SQ [facility] Last Admin: 02/21/18 22:04 Dose: Not Given Levothyroxine Sodium (Synthroid -) 37.5 mcg PEG DAILY@0700 [facility] Last Admin: 02/22/18 06:15 Dose: Not Given Non-Formulary Med ( (Probiotic)) 1 each GT DAILY [facility] Last Admin: 02/21/18 20:07 Dose: Not Given Oxybutynin Chloride (Ditropan -) 5 mg NGT BID [facility] Last Admin: 02/21/18 22:04 Dose: Not Given Prednisolone Sodium Phosphate (Orapred (15 Mg/5 Ml) Oral Solution -) 40 mg PEG DAILY [facility] Last Admin: 02/21/18 10:32 Dose: 40 mg Ranitidine HCl (Zantac Oral Solution -) 150 mg PEG DAILY [facility] Last Admin: 02/21/18 10:36 Dose: 150 mg Senna (Senna Oral Solution -) 8.8 mg PO HS [facility] Last Admin: 02/21/18 22:05 Dose: Not Given Sertraline HCl (Zoloft -) 25 mg PO DAILY [facility] Last Admin: 02/21/18 10:33 Dose: 25 mg Sucralfate (Carafate Oral Suspension -) 1 gm PEG ACHS [facility] Last Admin: 02/22/18 06:14 Dose: Not Given Tamsulosin HCl (Flomax -) 0.4 mg PO DAILY@0830 [facility] Last Admin: 02/22/18 08:27 Dose: Not Given - Objective Vital Signs: Vital Signs Temperature 98.7 F 02/22/18 08:56 Pulse Rate 77 02/22/18 08:56 Respiratory Rate 16 02/22/18 08:56 Blood Pressure 105/57 02/22/18 08:56 O2 Sat by Pulse Oximetry (%) 96 02/22/18 09:40 Eyes: Yes: WNL, Conjunctiva Clear, EOM Intact HENT: Yes: WNL, Atraumatic, Normocephalic Neck: Yes: WNL, Supple, Trachea Midline Cardiovascular: Yes: WNL, Regular Rate and Rhythm Respiratory: Yes: WNL, Mechanically Ventilated Gastrointestinal: Yes: WNL, Normal Bowel Sounds Genitourinary: Yes: WNL Musculoskeletal: Yes: WNL Extremities: Yes: WNL Edema: No Integumentary: Yes: WNL ...Motor Strength: WNL Psychiatric: Yes: WNL Labs: CBC, BMP 02/22/18 09:25 02/21/18 09:00 INR, PTT INR 1.13 (0.82-1.09) 02/16/18 22:40 Assessment/Plan /p neck (C4,5, and 6)/back surgery, tracheotomy placement now ventilator dependent, and PEG tube placement), frequent pneumonia, emphysema, A-fib, CHF, DM, dementia, renal failure, nonverbal TBI, paraplegia, and legal blindness and deafness, who presents to the emergency department via EMS from [facility] with 3 days of hypotension and anemia. paf in sr sepsis worsening anemia Plan consider further transfussions gi/gu renal eval cardiac hall stable PAf in sr echo nl ef cont abx
[2018-02-22 11:16] LABS: ANION GAP 11 (8-16); BILIRUBIN,TOTAL 0.3 mg/dL (0.2-1.0); CALCIUM 8.4 mg/dL (8.5-10.1); CHLORIDE 110 mmol/L (98-107); CO2 27 mmol/L (21-32); CREATININE 2.8 mg/dL (0.7-1.3); POTASSIUM 3.8 mmol/L (3.5-5.1); SGOT/AST 59 U/L (15-37); SGPT/ALT 127 U/L (12-78); SODIUM 148 mmol/L (136-145); TOT PROT 5.7 g/dl (6.4-8.2)
[2018-02-22 11:17] LABS: ALK PHOS 92 U/L (45-117)
--- NOTE | 2018-02-22 11:33 | PN ---
Progress Note, Physician Chief Complaint: The patient seen in his room. Remains vent supported. Seems comfortable. 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 Maintains good urine output. GI w/u in progress. ? for Xray NPO now. - Current Medication List Current Medications: Active Medications Acetaminophen (Tylenol -) 650 mg PO Q4H PRN PRN Reason: FEVER Artificial Tears (Artificial Tears) 2 drop OU BID [facility] Last Admin: 02/22/18 09:59 Dose: 2 drop Atorvastatin Calcium (Lipitor -) 10 mg GT HS [facility] Last Admin: 02/21/18 22:04 Dose: Not Given Bacitracin (Bacitracin -) 1 applic TP TID [facility] Last Admin: 02/22/18 06:14 Dose: 1 applic Collagenase (Santyl -) 1 applic TP DAILY [facility] Last Admin: 02/21/18 14:46 Dose: 1 applic Docusate Sodium (Colace Liquid -) 100 mg PO DAILY PRN PRN Reason: CONSTIPATION Ferrous Sulfate (Feosol) 300 mg GT DAILY [facility] Last Admin: 02/21/18 10:33 Dose: 300 mg Piperacillin Sod/Tazobactam (Sod 2.25 gm/ Dextrose) 50 mls @ 100 mls/hr IVPB Q8H-IV [facility]; Protocol Last Admin: 02/22/18 09:59 Dose: 100 mls/hr Insulin Aspart (Novolog Vial Sliding Scale -) 1 vial SQ ACHS [facility]; Protocol Last Admin: 02/22/18 06:15 Dose: Not Given Insulin Detemir (Levemir Vial) 20 units SQ [facility] Last Admin: 02/21/18 22:04 Dose: Not Given Levothyroxine Sodium (Synthroid -) 37.5 mcg PEG DAILY@0700 [facility] Last Admin: 02/22/18 06:15 Dose: Not Given Non-Formulary Med ( (Probiotic)) 1 each GT DAILY [facility] Last Admin: 02/21/18 20:07 Dose: Not Given Oxybutynin Chloride (Ditropan -) 5 mg NGT BID [facility] Last Admin: 02/21/18 22:04 Dose: Not Given Prednisolone Sodium Phosphate (Orapred (15 Mg/5 Ml) Oral Solution -) 40 mg PEG DAILY [facility] Last Admin: 02/21/18 10:32 Dose: 40 mg Ranitidine HCl (Zantac Oral Solution -) 150 mg PEG DAILY [facility] Last Admin: 02/21/18 10:36 Dose: 150 mg Senna (Senna Oral Solution -) 8.8 mg PO HS [facility] Last Admin: 02/21/18 22:05 Dose: Not Given Sertraline HCl (Zoloft -) 25 mg PO DAILY [facility] Last Admin: 02/21/18 10:33 Dose: 25 mg Sucralfate (Carafate Oral Suspension -) 1 gm PEG ACHS [facility] Last Admin: 02/22/18 06:14 Dose: Not Given Tamsulosin HCl (Flomax -) 0.4 mg PO DAILY@0830 [facility] Last Admin: 02/22/18 08:27 Dose: Not Given - Objective Vital Signs: Vital Signs Temperature 98.7 F 02/22/18 08:56 Pulse Rate 77 02/22/18 08:56 Respiratory Rate 16 02/22/18 09:48 Blood Pressure 105/57 02/22/18 08:56 O2 Sat by Pulse Oximetry (%) 96 02/22/18 09:40 Constitutional: Yes: Well Nourished, Pallor HENT: Yes: Normocephalic Neck: Yes: Trachea Midline Cardiovascular: Yes: S1, S2 Respiratory: Yes: Mechanically Ventilated Gastrointestinal: Yes: Soft Genitourinary: No: Bladder Distention, CVA Tenderness - Left, CVA Tenderness - Right Edema: No Neurological: Yes: Alert, Oriented Labs: CBC, BMP 02/22/18 09:25 INR, PTT INR 1.13 (0.82-1.09) 02/16/18 22:40 Problem List - Problems (1) Acute renal failure Code(s): N17.9 - ACUTE KIDNEY FAILURE, UNSPECIFIED (2) Chronic kidney disease, stage 3 Code(s): N18.3 - CHRONIC KIDNEY DISEASE, STAGE 3 (MODERATE) (3) Anemia Code(s): D64.9 - ANEMIA, UNSPECIFIED Qualifiers: Anemia type: due to chronic kidney disease Chronic kidney disease stage: unspecified stage Qualified Code(s): N18.9 - Chronic kidney disease, unspecified; D63.1 - Anemia in chronic kidney disease (4) Chronic respiratory failure Code(s): J96.10 - CHRONIC RESPIRATORY FAILURE, UNSP W HYPOXIA OR HYPERCAPNIA Qualifiers: Respiratory failure complication: unspecified whether with hypoxia or hypercapnia Qualified Code(s): J96.10 - Chronic respiratory failure, unspecified whether with hypoxia or hypercapnia (5) PAF (paroxysmal atrial fibrillation) Code(s): I48.0 - PAROXYSMAL ATRIAL FIBRILLATION (6) A-fib Code(s): I48.91 - UNSPECIFIED ATRIAL FIBRILLATION (7) 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 Acute renal failure superimposed on CKD. The acute renal dysfunction due to sepsis, altered renal hemodynamics with resultant real hypoperfusion. The profound elevation of the BUN due to Steroids. Hypernatremia, due to free water loss. Profound anemia...? etiology. ? More transfusions. For Xray abd. Suggest: IV fluids as ordered in view of the Hypernatremia. Azotemia is significantly Steroid dependent. .? PRBC transfusion Will monitor the renal functions with you. Thank you. Will follow with you. Margarita Caban MD
[2018-02-22 11:35] LABS: GLUCOSE,RANDOM 324 mg/dL (74-106)
[2018-02-22 11:36] LABS: BLOOD UREA NITROGEN 212 mg/dL (7-18)
[2018-02-22] MEDS ORDERED: DEXTROSE 5%-0.2% SALINE - 1,000 ML IV SCH (11:45)
--- NOTE | 2018-02-22 12:32 | PN ---
Progress Note, Physician History of Present Illness: patient continues to be on vent abd issues with distension - Current Medication List Current Medications: Active Medications Acetaminophen (Tylenol -) 650 mg PO Q4H PRN PRN Reason: FEVER Artificial Tears (Artificial Tears) 2 drop OU BID [facility] Last Admin: 02/22/18 09:59 Dose: 2 drop Atorvastatin Calcium (Lipitor -) 10 mg GT HS [facility] Last Admin: 02/21/18 22:04 Dose: Not Given Bacitracin (Bacitracin -) 1 applic TP TID [facility] Last Admin: 02/22/18 06:14 Dose: 1 applic Collagenase (Santyl -) 1 applic TP DAILY [facility] Last Admin: 02/21/18 14:46 Dose: 1 applic Docusate Sodium (Colace Liquid -) 100 mg PO DAILY PRN PRN Reason: CONSTIPATION Ferrous Sulfate (Feosol) 300 mg GT DAILY [facility] Last Admin: 02/21/18 10:33 Dose: 300 mg Piperacillin Sod/Tazobactam (Sod 2.25 gm/ Dextrose) 50 mls @ 100 mls/hr IVPB Q8H-IV [facility]; Protocol Last Admin: 02/22/18 09:59 Dose: 100 mls/hr Dextrose/Sodium Chloride (D5-1/4ns -) 1,000 mls @ 75 mls/hr IV ASDIR [facility] Insulin Aspart (Novolog Vial Sliding Scale -) 1 vial SQ [facility]; Protocol Last Admin: 02/22/18 06:15 Dose: Not Given Insulin Detemir (Levemir Vial) 20 units SQ [facility] Last Admin: 02/21/18 22:04 Dose: Not Given Levothyroxine Sodium (Synthroid -) 37.5 mcg PEG DAILY@0700 [facility] Last Admin: 02/22/18 06:15 Dose: Not Given Non-Formulary Med ( (Probiotic)) 1 each GT DAILY [facility] Last Admin: 02/21/18 20:07 Dose: Not Given Oxybutynin Chloride (Ditropan -) 5 mg NGT BID [facility] Last Admin: 02/21/18 22:04 Dose: Not Given Prednisolone Sodium Phosphate (Orapred (15 Mg/5 Ml) Oral Solution -) 40 mg PEG DAILY [facility] Last Admin: 02/21/18 10:32 Dose: 40 mg Ranitidine HCl (Zantac Oral Solution -) 150 mg PEG DAILY [facility] Last Admin: 02/21/18 10:36 Dose: 150 mg Senna (Senna Oral Solution -) 8.8 mg PO HS [facility] Last Admin: 02/21/18 22:05 Dose: Not Given Sertraline HCl (Zoloft -) 25 mg PO DAILY [facility] Last Admin: 02/21/18 10:33 Dose: 25 mg Sucralfate (Carafate Oral Suspension -) 1 gm PEG ACHS [facility] Last Admin: 02/22/18 06:14 Dose: Not Given Tamsulosin HCl (Flomax -) 0.4 mg PO DAILY@0830 [facility] Last Admin: 02/22/18 08:27 Dose: Not Given - Objective Vital Signs: Vital Signs Temperature 98.7 F 02/22/18 08:56 Pulse Rate 77 02/22/18 08:56 Respiratory Rate 16 02/22/18 09:48 Blood Pressure 105/57 02/22/18 08:56 O2 Sat by Pulse Oximetry (%) 96 02/22/18 09:40 Constitutional: Yes: Other Neck: Yes: Supple Cardiovascular: Yes: Pulse Irregular, Other Respiratory: Yes: Mechanically Ventilated, Poor Air Entry, Rhonchi, Other (trach ) Gastrointestinal: Yes: Distention, Hypoactive Bowel Sounds Musculoskeletal: Yes: WNL Extremities: Yes: WNL Neurological: Yes: Other Labs: CBC, BMP 02/22/18 09:25 02/22/18 09:25 INR, PTT INR 1.13 (0.82-1.09) 02/16/18 22:40 Assessment/Plan Problem List - Problems (1) Anemia Code(s): D64.9 - ANEMIA, UNSPECIFIED (2) Chronic kidney disease, stage 3 Code(s): N18.3 - CHRONIC KIDNEY DISEASE, STAGE 3 (MODERATE) (3) Chronic respiratory failure Code(s): J96.10 - CHRONIC RESPIRATORY FAILURE, UNSP W HYPOXIA OR HYPERCAPNIA Qualifiers: Respiratory failure complication: unspecified whether with hypoxia or hypercapnia Qualified Code(s): J96.10 - Chronic respiratory failure, unspecified whether with hypoxia or hypercapnia (4) PAF (paroxysmal atrial fibrillation) Code(s): I48.0 - PAROXYSMAL ATRIAL FIBRILLATION (5) Renal failure Code(s): N19 - UNSPECIFIED KIDNEY FAILURE Qualifiers: Renal failure chronicity: unspecified chronicity Qualified Code(s): N19 - Unspecified kidney failure (6) Diabetes Code(s): E11.9 - TYPE 2 DIABETES MELLITUS WITHOUT COMPLICATIONS (7) TBI (traumatic brain injury) Code(s): S06.9X9A - UNSP INTRACRANIAL INJURY W LOC OF UNSP DURATION, INIT (8) Fymcr-mf-[id number] kidney injury Code(s): N17.9 - ACUTE KIDNEY FAILURE, UNSPECIFIED; N18.9 - CHRONIC KIDNEY DISEASE, UNSPECIFIED (9) Xgrcn-fc-oovjkyt renal failure Code(s): N17.9 - ACUTE KIDNEY FAILURE, UNSPECIFIED; N18.9 - CHRONIC KIDNEY DISEASE, UNSPECIFIED (10) Hypotension Code(s): I95.9 - HYPOTENSION, UNSPECIFIED (11) Hypotension Code(s): I95.9 - HYPOTENSION, UNSPECIFIED I plan continue abx for now awaiting sensitivities of the organism from the sputum monitor feeding watch for abd distension rest as per the team
[2018-02-22] MEDS: SODIUM CHLORIDE 0.45% 1,000 ML IV SCH (13:00)
--- NOTE | 2018-02-22 13:01 | PN ---
Progress Note, Physician History of Present Illness: PULMONARY NO CHANGE ON VENT SUPPORT,OPENS EYES,MIN RESPONSIVE - Current Medication List Current Medications: Active Medications Acetaminophen (Tylenol -) 650 mg PO Q4H PRN PRN Reason: FEVER Artificial Tears (Artificial Tears) 2 drop OU BID [facility] Last Admin: 02/22/18 09:59 Dose: 2 drop Atorvastatin Calcium (Lipitor -) 10 mg GT HS [facility] Last Admin: 02/21/18 22:04 Dose: Not Given Bacitracin (Bacitracin -) 1 applic TP TID [facility] Last Admin: 02/22/18 06:14 Dose: 1 applic Collagenase (Santyl -) 1 applic TP DAILY [facility] Last Admin: 02/21/18 14:46 Dose: 1 applic Docusate Sodium (Colace Liquid -) 100 mg PO DAILY PRN PRN Reason: CONSTIPATION Ferrous Sulfate (Feosol) 300 mg GT DAILY [facility] Last Admin: 02/21/18 10:33 Dose: 300 mg Piperacillin Sod/Tazobactam (Sod 2.25 gm/ Dextrose) 50 mls @ 100 mls/hr IVPB Q8H-IV [facility]; Protocol Last Admin: 02/22/18 09:59 Dose: 100 mls/hr Dextrose/Sodium Chloride (D5-1/4ns -) 1,000 mls @ 75 mls/hr IV ASDIR [facility] Insulin Aspart (Novolog Vial Sliding Scale -) 1 vial SQ ACHS [facility]; Protocol Last Admin: 02/22/18 06:15 Dose: Not Given Insulin Detemir (Levemir Vial) 20 units SQ [facility] Last Admin: 02/21/18 22:04 Dose: Not Given Levothyroxine Sodium (Synthroid -) 37.5 mcg PEG DAILY@0700 [facility] Last Admin: 02/22/18 06:15 Dose: Not Given Non-Formulary Med ( (Probiotic)) 1 each GT DAILY [facility] Last Admin: 02/21/18 20:07 Dose: Not Given Oxybutynin Chloride (Ditropan -) 5 mg NGT BID [facility] Last Admin: 02/21/18 22:04 Dose: Not Given Prednisolone Sodium Phosphate (Orapred (15 Mg/5 Ml) Oral Solution -) 40 mg PEG DAILY [facility] Last Admin: 02/21/18 10:32 Dose: 40 mg Ranitidine HCl (Zantac Oral Solution -) 150 mg PEG DAILY [facility] Last Admin: 02/21/18 10:36 Dose: 150 mg Senna (Senna Oral Solution -) 8.8 mg PO HS [facility] Last Admin: 02/21/18 22:05 Dose: Not Given Sertraline HCl (Zoloft -) 25 mg PO DAILY [facility] Last Admin: 02/21/18 10:33 Dose: 25 mg Sucralfate (Carafate Oral Suspension -) 1 gm PEG ACHS [facility] Last Admin: 02/22/18 06:14 Dose: Not Given Tamsulosin HCl (Flomax -) 0.4 mg PO DAILY@0830 [facility] Last Admin: 02/22/18 08:27 Dose: Not Given - Objective Vital Signs: Vital Signs Temperature 98.7 F 02/22/18 08:56 Pulse Rate 77 02/22/18 08:56 Respiratory Rate 16 02/22/18 09:48 Blood Pressure 105/57 02/22/18 08:56 O2 Sat by Pulse Oximetry (%) 96 02/22/18 09:40 Constitutional: Yes: Well Nourished, Other (POORLY RESPONSIVE) Eyes: Yes: WNL HENT: Yes: WNL Neck: Yes: Supple (TRACH) Cardiovascular: Yes: Regular Rate and Rhythm, S1, S2 Respiratory: Yes: Rhonchi (SCATTERED YASSINE RHONCHI) Gastrointestinal: Yes: Normal Bowel Sounds, Soft Extremities: Yes: WNL Edema: No Labs: CBC, BMP 02/22/18 09:25 02/22/18 09:25 INR, PTT INR 1.13 (0.82-1.09) 02/16/18 22:40 Problem List - Problems (1) Anemia Code(s): D64.9 - ANEMIA, UNSPECIFIED (2) Chronic kidney disease, stage 3 Code(s): N18.3 - CHRONIC KIDNEY DISEASE, STAGE 3 (MODERATE) (3) Chronic respiratory failure Code(s): J96.10 - CHRONIC RESPIRATORY FAILURE, UNSP W HYPOXIA OR HYPERCAPNIA Qualifiers: Respiratory failure complication: unspecified whether with hypoxia or hypercapnia Qualified Code(s): J96.10 - Chronic respiratory failure, unspecified whether with hypoxia or hypercapnia (4) PAF (paroxysmal atrial fibrillation) Code(s): I48.0 - PAROXYSMAL ATRIAL FIBRILLATION (5) Renal failure Code(s): N19 - UNSPECIFIED KIDNEY FAILURE Qualifiers: Renal failure chronicity: unspecified chronicity Qualified Code(s): N19 - Unspecified kidney failure (6) Diabetes Code(s): E11.9 - TYPE 2 DIABETES MELLITUS WITHOUT COMPLICATIONS (7) TBI (traumatic brain injury) Code(s): S06.9X9A - UNSP INTRACRANIAL INJURY W LOC OF UNSP DURATION, INIT (8) Ifbrh-pl-qejuscj kidney injury Code(s): N17.9 - ACUTE KIDNEY FAILURE, UNSPECIFIED; N18.9 - CHRONIC KIDNEY DISEASE, UNSPECIFIED (9) Ifady-fv-avppgnv renal failure Code(s): N17.9 - ACUTE KIDNEY FAILURE, UNSPECIFIED; N18.9 - CHRONIC KIDNEY DISEASE, UNSPECIFIED (10) Hypotension Code(s): I95.9 - HYPOTENSION, UNSPECIFIED (11) Hypotension Code(s): I95.9 - HYPOTENSION, UNSPECIFIED Assessment/Plan IMP CHRONIC RESPIRATORY FAILURE VENT DEPENDENT TBI S/P FALL QUADRAPLEGIA SECONDARY TO C4.5,6 FX SEVERE ANEMIA ACUTE ON CHRONIC KIDNEY DISEASE HYPOTENSION IMPROVED AFIB DM DEMENTIA H/O PNEUMONIA PLAN IVF TRANSFUSE VENT SUPPORT ON AC MODE MONITOR H+H MONITOR LYTES,RENAL FUNCTION F/U CHEST X-RAYS TAPER STEROIDS DR FORMAN Problem List - Problems (1) Anemia Code(s): D64.9 - ANEMIA, UNSPECIFIED (2) Chronic kidney disease, stage 3 Code(s): N18.3 - CHRONIC KIDNEY DISEASE, STAGE 3 (MODERATE) (3) Chronic respiratory failure Code(s): J96.10 - CHRONIC RESPIRATORY FAILURE, UNSP W HYPOXIA OR HYPERCAPNIA Qualifiers: Respiratory failure complication: unspecified whether with hypoxia or hypercapnia Qualified Code(s): J96.10 - Chronic respiratory failure, unspecified whether with hypoxia or hypercapnia (4) PAF (paroxysmal atrial fibrillation) Code(s): I48.0 - PAROXYSMAL ATRIAL FIBRILLATION (5) Renal failure Code(s): N19 - UNSPECIFIED KIDNEY FAILURE Qualifiers: Renal failure chronicity: unspecified chronicity Qualified Code(s): N19 - Unspecified kidney failure (6) Diabetes Code(s): E11.9 - TYPE 2 DIABETES MELLITUS WITHOUT COMPLICATIONS (7) TBI (traumatic brain injury) Code(s): S06.9X9A - UNSP INTRACRANIAL INJURY W LOC OF UNSP DURATION, INIT (8) Vhfzt-rv-emoyvgj kidney injury Code(s): N17.9 - ACUTE KIDNEY FAILURE, UNSPECIFIED; N18.9 - CHRONIC KIDNEY DISEASE, UNSPECIFIED (9) Yegfg-wl-mfyqcmb renal failure Code(s): N17.9 - ACUTE KIDNEY FAILURE, UNSPECIFIED; N18.9 - CHRONIC KIDNEY DISEASE, UNSPECIFIED (10) Hypotension Code(s): I95.9 - HYPOTENSION, UNSPECIFIED (11) Hypotension Code(s): I95.9 - HYPOTENSION, UNSPECIFIED
--- NOTE | 2018-02-22 14:22 | PN ---
Teaching Attending Note Name of Resident: Elia Prieto ATTENDING PHYSICIAN STATEMENT I saw and evaluated the patient. I reviewed the resident's note and discussed the case with the resident. I agree with the resident's findings and plan as documented. SUBJECTIVE:resting comfortable. OBJECTIVE: Last Vital Signs Temp Pulse Resp BP Pulse Ox 98.7 F 77 16 105/57 96 02/22/18 08:56 02/22/18 08:56 02/22/18 09:48 02/22/18 08:56 02/22/18 09:40 General NAD opens eyes to tactile stimuli CV S1 S2 RRR no murmur/rub/gallop Lungs Coarse breath sounds anteriorly Abdomen soft +distention. not tender. +PEG no bleeding noted around PEG normoactive BS Extremities no pedal edema. 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 Admitted on 02/17/18 from [facility] chronic respiratory failure and severe anemia with a hg of 5.5 and hypotension. 1. Acute on chronic respiratory failure- due to aspiration PNA. now improved. has returned to baseline vent settings. as per son he has not been weanable. decrease to pred 30mg tomorrow. with quick taper. pulmonary on board 2. Aspiration PNA- on zosyn day 7. plan to transition to po today. awaiting ID recommendations. ID on board 3. distended abdomen- +sigmoid volvulus on AXR but pt had large BM afterwards. tube feeds on hold. will repeat AXR today. surgery consulted. GI is aware. GI or surgery to place rectal tube. 4. Multifactorial anemia- s/p 6 units PRBC this hospital stay. Hgb trending down. +FOBT yesterday. will transfuse 1 unit PRBC. hgh suspicion of GI bleed. will d/w GI for planned egd/colonoscopy. hematology on board. on iron supplementation 5. Acute on CKD- hypoperfusion. Cr stable. BUN trending up can be due to steroids use or GI bleed. however think the latter is more likely. nephro on board 6. Thrombophilia-stable. off medications 7. DM-improved cont levemir. cont iss. titrate as needed to optimize control 8. TBI- s/p trach and PEG 9. 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 10. legally blind and deaf 11. hypothyroid- on Lt4 12. urinary incontinence- with chronic indwelling christopher. cont oxybutin/flomax 13. depression- on zoloft 14. DVT ppx- SCD. would hold pharmacologic anticoagulation given persistent anemia.
--- NOTE | 2018-02-22 15:29 | CONSULT ---
Consult Consult Specialty:: General Surgery Referred by:: Elia Prieto/Dr. Gimenez Reason for Consultation:: possible sigmoid volvulus - History of Present Illness Chief Complaint: abdominal distention, constipation History of Present Illness: 87yo diabetic M with TBI/cervical-spine injury with paraplegia since 08/23, vent -dependent s/p trach and PEG, usual [place] resident, was admitted for anemia, questionable GI bleeding, which has been worked up with no source of blood loss clearly identified. Tube fed via PEG, usually with runny stools. Yesterday, he had AXR showing possible sigmoid volvulus with dilated colonic loop, gas-filled , after which he reportedly had large BM and lots of flatus evacuation. Per his daughter at bedside, he had limited BMs for several days prior, and his abdomen was much more distended yesterday, which is now almost flat. They do periodically hear flatus. He had another liquid BM overnight and today's nurse reports a liquid, dark BM. Repeat AXR was just done. Surgery was asked to evaluate. The patient is seen and examined in his room with family at bedside. He is nonresponsive, legally blind and deaf (they don't know if he can hear anything and refused his hearing aids prior to the accident). PEG tube feeds have been on hold since yesterday. He is also being treated for possible aspiration pneumonia; sputum grew Pseudomonas x 2 species, and he is on antibiotics with ID following. GI is also on board. He is also followed by nephrology for acute on chronic renal failure. 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 GRADER: Yes: Dementia (mild, per daughter), Other (TBI/c-spine paraplegia) Cardio/Vascular: Yes: AFIB, CHF, HTN Pulmonary: Yes: O2 Dependent, Other (s/p Trach, vent dependent) Renal/: Yes: Renal Failure Heme/Onc: Yes: Anemia Psych: Yes: Other Musculoskeletal: Yes: Paraplegia (cervical level since 08/23) Endocrine: Yes: Diabetes Mellitus - Past Surgical History Past Surgical History: Yes: Cataract Removal ((didn't work per daughter)) Additional Surgical History: tracheostomy, PEG - Alcohol/Substance Use Hx Alcohol Use: No History of Substance Use: reports: None - Smoking History Smoking history: Never smoked Have you smoked in the past 12 months: No - Social History Usual Living Arrangement: Assisted ADL: Support Services Home Medications - Allergies Allergies/Adverse Reactions: Allergies Allergy/AdvReac Type Severity Reaction Status Date / Time No Known Allergies Allergy Verified 02/16/18 22:30 - Home Medications Home Medications: Ambulatory Orders Acetaminophen [Tylenol] 650 mg PO Q6H PRN 01/21/18 Bacitracin - [Bacitracin Topical Ointment -] 1 applic TP TID 01/21/18 Baclofen 10 mg GT Q8H 01/21/18 Balsam Zabrina/Gooding Oil [Venelex Ointment] 1 applic TP BID 01/21/18 Docusate Sodium [Colace -] 100 mg GT ASDIR 01/21/18 Ferrous Sulfate [Feosol] 300 mg GT DAILY 01/21/18 Glycopyrrolate/Formoterol Fum [Bevespi Aerosphere Inhaler] 0 gm IH BID 01/21/18 Heparin - 5,000 unit SQ BID 01/21/18 Hypromellose 0.5% Opth Soln [Artificial Tears] 2 drop OU BID 01/21/18 Insulin Glargine,Hum.rec.anlog [Lantus Solostar PEN -] 9 units SQ HS 01/21/18 Insulin Lispro [Humalog] 0 unit SQ Q6H 01/21/18 L.acidoph,Paracasei, B.lactis [Probiotic] 1 each GT DAILY 01/21/18 Lanolin/Mineral Oil [Eucerin Original Lotion] 1 applic TP Q6H 01/21/18 Levothyroxine Sodium [Synthroid] 37.5 mcg GT BID 01/21/18 Oxybutynin Chloride 5 mg GT BID 01/21/18 Ranitidine [Zantac -] 150 mg GT DAILY 01/21/18 Sertraline HCl [Zoloft] 25 mg GT DAILY 01/21/18 Silver Sulfadiazine 1% Top Cr [Silvadene -] 1 applic TP DAILY 01/21/18 Simethicone 40 mg GT Q6H 01/21/18 Simvastatin 20 mg GT DAILY 01/21/18 Tamsulosin HCl 0.4 mg GT DAILY 01/21/18 Zinc Oxide 1 applic TP BID 01/21/18 Levothyroxine [Synthroid -] 37.5 mcg PEG DAILY@0700 tablet 02/08/18 Sodium Chloride Nasal Liguori [[place] Liguori Nasal Liguori -] 2 spray NS TID spray Aspirin [ASA -] 81 mg PO DAILY #30 tab.chew 02/09/18 Furosemide Oral Solution [Lasix Oral Solution -] 40 mg GT BID #300 udc 02/09/18 Nut.tx.imp.renal Fxn,Lac-Reduc [Nepro Carb Steady] 1,000 ml PO DAILY #1000 ml Potassium Chloride 40 meq GT DAILY #40 meq 02/09/18 Family Disease History - Family Disease History Family History: Unremarkable (noncontributory) Review of Systems Unable to obtain ROS, reason: vented/unresponsive - Review of Systems Gastrointestinal: reports: Bloating, Constipation Physical Exam Vital Signs: Vital Signs Temperature 98 F 02/22/18 14:27 Pulse Rate 70 02/22/18 14:27 Respiratory Rate 14 02/22/18 14:27 Blood Pressure 115/72 02/22/18 14:27 O2 Sat by Pulse Oximetry (%) 96 02/22/18 09:40 Constitutional: Yes: Well Nourished, No Distress, Calm Eyes: Yes: Conjunctiva Clear, EOM Intact HENT: Yes: Normocephalic, Other (intubated via tracheostomy) Neck: Yes: Supple, Trachea Midline (with trach in place) Cardiovascular: Yes: Regular Rate and Rhythm. No: Murmur Respiratory: Yes: Regular, CTA Bilaterally, Mechanically Ventilated Gastrointestinal: Yes: Normal Bowel Sounds (to slightly decreased, more in lower abdomen), Soft, Other (PEG in place, no s/s infection or active bleeding; feeds on hold). No: Distention, Tenderness (none apparent - no reaction to palpation) ...Rectal Exam: Yes: Deferred (at this time - may do later today) Renal/: Yes: Childs Present. No: Hematuria Musculoskeletal: Yes: Joint Stiffness (hands/fingers/elbows). 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 No : Alert Labs: CBC, BMP 02/22/18 09:25 02/22/18 09:25 CMP Sodium 148 mmol/L (136-145) H 02/22/18 09:25 Potassium 3.8 mmol/L (3.5-5.1) 02/22/18 09:25 Chloride 110 mmol/L (98-107) H 02/22/18 09:25 Carbon Dioxide 27 mmol/L (21-32) 02/22/18 09:25 Anion Gap 11 (8-16) 02/22/18 09:25 BUN 212 mg/dL (7-18) H* 02/22/18 09:25 Creatinine 2.8 mg/dL (0.7-1.3) H 02/22/18 09:25 Creat Clearance w eGFR 21.64 (>60) 02/22/18 09:25 POC Glucometer 322 UNITS (80-120) 02/22/18 11:57 Random Glucose 324 mg/dL (74-106) H* D 02/22/18 09:25 Calcium 8.4 mg/dL (8.5-10.1) L 02/22/18 09:25 Magnesium 2.4 mg/dL (1.8-2.4) 02/20/18 07:55 Iron 44 ug/dL (38-169) 02/17/18 08:00 TIBC 147 ug/dL (250-450) L 02/17/18 08:00 Iron Saturation 30 % (15-55) 02/17/18 08:00 Ferritin 245.8 ng/ml (16.4-293.9) 02/17/18 08:00 Total Bilirubin 0.3 mg/dL (0.2-1.0) 02/22/18 09:25 AST 59 U/L (15-37) H D 02/22/18 09:25 ALT 127 U/L (12-78) H D 02/22/18 09:25 Alkaline Phosphatase 92 U/L (45-117) D 02/22/18 09:25 LD Total 252 U/L (87-241) H 02/20/18 07:55 Troponin I < 0.02 ng/ml (0.00-0.05) 02/16/18 22:40 C-Reactive Protein 10.6 MG/DL (0.00-0.3) H 02/18/18 06:20 Total Protein 5.7 g/dl (6.4-8.2) L 02/22/18 09:25 Albumin 2.0 g/dl (3.4-5.0) L 02/22/18 09:25 Vitamin B12 705 pg/ml (180-914) 02/18/18 06:30 Serum Folate 19 ng/ml (3.1-17.5) H 02/18/18 06:30 Imaging - Results X-ray: Report Reviewed (no evidence obstruction, gaseous distention and stool burden both decreased, though still stool present in colon), Image Reviewed ( images personally reviewed - yesterday's with dilated, gas-filled colonic loop in shape of kidney wang, stool present prox and distally, no sig SB dilation; today's just taken shows improved gas pattern, gas and stool in colon, no single dilated loop) Problem List - Problems (1) Constipation Assessment/Plan: Pt had large evacuation of stool and gas after X-ray suspicious for sigmoid volvulus. Discussed multiple times yesterday with Dr. Prieto. Repeat film today shows improvement of gaseous distention and stool burden, though there is still a fair amount of stool present. Abdominal distention decreased clinically per daughter and primary team. Doubt true volvulus, and no current evidence of same , but could still get CT with oral contrast (via PEG) to facilitate evacuation of remaining stool and assess for sigmoid anatomy and any possibility of mesenteric twisting or abnormality. Had lengthy discussion with daughter (20 minutes) in person to explain volvulus and answer questions concerning possible treatments, as well her father's overall condition and other medical issues. No indication for acute intervention at this time. Thank you for the opportunity to participate in the care of this patient. Code(s): K59.00 - CONSTIPATION, UNSPECIFIED Qualifiers: Constipation type: unspecified constipation type Qualified Code(s): K59.00 - Constipation, unspecified (2) [id number] renal failure Assessment/Plan: rising Na/Cl and BUN/Cr may be dehydrated getting blood today would maintain IV hydration while TF held for now and ensure adequate fluids when resumed Code(s): N17.9 - ACUTE KIDNEY FAILURE, UNSPECIFIED; N18.9 - CHRONIC KIDNEY DISEASE, UNSPECIFIED Qualifiers: Acute renal failure type: unspecified Chronic kidney disease stage: stage 3 (moderate) Qualified Code(s): N17.9 - Acute kidney failure, unspecified; N18.3 - Chronic kidney disease, stage 3 (moderate) (3) Anemia Assessment/Plan: plan for transfusion today Code(s): D64.9 - ANEMIA, UNSPECIFIED Qualifiers: Anemia type: due to chronic kidney disease Chronic kidney disease stage: unspecified stage Qualified Code(s): N18.9 - Chronic kidney disease, unspecified; D63.1 - Anemia in chronic kidney disease (4) Chronic respiratory failure Assessment/Plan: vented via trach Code(s): J96.10 - CHRONIC RESPIRATORY FAILURE, UNSP W HYPOXIA OR HYPERCAPNIA Qualifiers: Respiratory failure complication: unspecified whether with hypoxia or hypercapnia Qualified Code(s): J96.10 - Chronic respiratory failure, unspecified whether with hypoxia or hypercapnia (5) Childs catheter in place Assessment/Plan: no hematuria, making light yellow urine Code(s): Z92.89 - PERSONAL HISTORY OF OTHER MEDICAL TREATMENT (6) S/P percutaneous endoscopic gastrostomy (PEG) tube placement Assessment/Plan: PEG in place holding TF consider CT with oral contrast prior to resuming Code(s): Z93.1 - GASTROSTOMY STATUS (7) Tracheostomy dependent Code(s): Z93.0 - TRACHEOSTOMY STATUS (8) CHF (congestive heart failure) Code(s): I50.9 - HEART FAILURE, UNSPECIFIED Qualifiers: Heart failure type: diastolic Heart failure chronicity: chronic Qualified Code(s): I50.32 - Chronic diastolic (congestive) heart failure (9) Diabetes Assessment/Plan: glucose has been high Code(s): E11.9 - TYPE 2 DIABETES MELLITUS WITHOUT COMPLICATIONS Qualifiers: Diabetes mellitus type: type 2 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 use: unspecified 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 use status Diabetes mellitus complication status : with kidney complications Diabetes mellitus complication detail: with chronic kidney disease Chronic kidney disease stage: stage 3 (moderate) Qualified Code(s): E11.22 - Type 2 diabetes mellitus with diabetic chronic kidney disease; N18.3 - Chronic kidney disease, stage 3 (moderate) (10) TBI (traumatic brain injury) Code(s): S06.9X9A - UNSP INTRACRANIAL INJURY W LOC OF UNSP DURATION, INIT Qualifiers: Encounter type: sequela Loss of consciousness presence/duration: with LOC of unspecified duration Qualified Code(s): S06.9X9S - Unspecified intracranial injury with loss of consciousness of unspecified duration, sequela (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
[2018-02-22] MEDS: prednisoLONE SODIUM PHOSPHATE 15 MG/5 ML ORAL SOLN BOTTLE PEG SCH (16:42)
--- NOTE | 2018-02-22 17:45 | PN ---
Physical Exam: SUBJECTIVE: Patient seen and examined at bedside. Pt had BM this morning. OBJECTIVE: Vital Signs Period Temp Pulse Resp BP Sys/Wills Pulse Ox Last 24 Hr 98 F-99.8 F 67-115 14-16 101-117/56-72 96-98 Gen: eyes open. unresponsive to verbal command. Grimace to sternal rub HEENT: NCAT Neck: trach tube in place. No blood at stoma. functioning well Cardio: rrr, norm s1s2, no m/r/g appreciated Lungs: coarse breath sounds anteriorly Abd: soft, distended Ext: 1+ pulses, no edema Laboratory Results - last 24 hr 02/17/18 02/20/18 02/21/18 00:03 08:44 22:02 WBC RBC Hgb Hct MCV MCH MCHC RDW Plt Count MPV Absolute Neuts (auto) Neutrophils % Lymphocytes % Monocytes % Eosinophils % Basophils % Nucleated RBC % Sodium Potassium Chloride Carbon Dioxide Anion Gap BUN Creatinine Creat Clearance w eGFR POC Glucometer 383 Random Glucose Calcium Total Bilirubin AST ALT Alkaline Phosphatase Total Protein Albumin Blood Type O POSITIVE Antibody Screen Negative Crossmatch See Detail See Detail 02/22/18 02/22/18 02/22/18 09:25 09:25 11:57 WBC 8.7 RBC 2.31 L Hgb 6.7 L* D Hct 20.5 L MCV 88.8 MCH 28.8 MCHC 32.4 RDW 20.2 H Plt Count 153 MPV 10.6 Absolute Neuts (auto) 6.2 Neutrophils % 71.2 Lymphocytes % 18.5 D Monocytes % 10.0 D Eosinophils % 0.0 D Basophils % 0.3 Nucleated RBC % 0 Sodium 148 H Potassium 3.8 Chloride 110 H Carbon Dioxide 27 Anion Gap 11 BUN 212 H* Creatinine 2.8 H Creat Clearance w eGFR 21.64 POC Glucometer 322 Random Glucose 324 H* D Calcium 8.4 L Total Bilirubin 0.3 AST 59 H D ALT 127 H D Alkaline Phosphatase 92 D Total Protein 5.7 L Albumin 2.0 L Blood Type Antibody Screen Crossmatch 02/22/18 02/22/18 15:30 16:42 WBC RBC Hgb Hct MCV MCH MCHC RDW Plt Count MPV Absolute Neuts (auto) Neutrophils % Lymphocytes % Monocytes % Eosinophils % Basophils % Nucleated RBC % Sodium Potassium Chloride Carbon Dioxide Anion Gap BUN Creatinine Creat Clearance w eGFR POC Glucometer 400 Random Glucose Calcium Total Bilirubin AST ALT Alkaline Phosphatase Total Protein Albumin Blood Type O POSITIVE Antibody Screen Negative Crossmatch See Detail Active Medications Generic Name Dose Route Start Last Admin Trade Name Freq PRN Reason Stop Dose Admin Acetaminophen 650 mg 02/17/18 17:28 Tylenol - PO Q4H PRN FEVER Artificial Tears 2 drop 02/17/18 22:00 02/22/18 09:59 Artificial Tears OU 2 drop BID LILIA Administration Atorvastatin Calcium 10 mg 02/17/18 22:00 02/21/18 22:04 Lipitor - GT Not Given HS LILIA Bacitracin 1 applic 02/17/18 22:00 02/22/18 06:14 Bacitracin - TP 1 applic TID LILIA Administration Collagenase 1 applic 02/19/18 16:00 02/21/18 14:46 Santyl - TP 1 applic DAILY LILIA Administration Docusate Sodium 100 mg 02/21/18 11:37 Colace Liquid - PO DAILY PRN CONSTIPATION Ferrous Sulfate 300 mg 02/18/18 10:00 02/21/18 10:33 Feosol GT 300 mg DAILY LILIA Administration Piperacillin Sod/Tazobactam 50 mls @ 100 mls/hr 02/18/18 02:00 02/22/18 09:59 Sod 2.25 gm/ Dextrose IVPB 100 mls/hr Q8H-IV LILIA Administration Protocol Sodium Chloride 1,000 mls @ 75 mls/hr 02/22/18 13:00 1/2 Normal Saline IV ASDIR LILIA Insulin Aspart 1 vial 02/19/18 08:16 02/22/18 16:59 Novolog Vial Sliding Scale - SQ 10 units ACHS LILIA Administration Protocol Insulin Detemir 20 units 02/20/18 11:05 02/21/18 22:04 Levemir Vial SQ Not Given HS LILIA Levothyroxine Sodium 37.5 mcg 02/18/18 07:00 02/22/18 06:15 Synthroid - PEG Not Given DAILY@0700 [facility] Non-Formulary Med ( 1 each 02/21/18 20:00 02/21/18 20:07 Probiotic) GT Not Given DAILY LILIA Oxybutynin Chloride 5 mg 02/17/18 22:00 02/21/18 22:04 Ditropan - NGT Not Given BID [facility] Prednisolone Sodium Phosphate 30 mg 02/22/18 14:17 Orapred (15 Mg/5 Ml) Oral Solution - PEG DAILY LILIA Ranitidine HCl 150 mg 02/21/18 10:00 02/21/18 10:36 Zantac Oral Solution - PEG 150 mg DAILY LILIA Administration Senna 8.8 mg 02/21/18 22:00 02/21/18 22:05 Senna Oral Solution - PO Not Given HS LILIA Sertraline HCl 25 mg 02/17/18 17:27 02/21/18 10:33 Zoloft - PO 25 mg DAILY LILIA Administration Sucralfate 1 gm 02/19/18 11:00 02/22/18 16:41 Carafate Oral Suspension - PEG Not Given ACHS LILIA Tamsulosin HCl 0.4 mg 02/18/18 08:30 02/22/18 08:27 Flomax - PO Not Given DAILY@0830 [facility] ASSESSMENT/PLAN: Pt is an 87 y/o M with PMH significant for TBI (08/2017) s/p trach and vent dependent, PEG, paraplegia, dCHF, NIDDM, CKD, deaf, blind who presented to ED from [facility] with respiratory failure and severe anemia with hypotension. Pt is admitted to Med-Surg. #Abdominal distension -intermittent large volume stools reported -abdomen soft, distended, tympanic -NPO -Consider CT #Acute on chronic resp failure -likely 2/2 aspiration PNA -at baseline vent settings: AC Tv 450, RR 14, FiO2 28, PEEP 5 -Initially on Medrol 40. d/c'ed -Prednisone 40 -Pulm on board #Asp PNA -Zosyn -ID on board: rec possible deescalation of Abx by Mon #Anemia -was transfused 6 PRBCs total -Hb stable last 2 days -Given Epo (02/20/2018) -Heme on board: will give weekly Epo -No obvious active bleed -per son, had negative colonoscopy 2 years ago -1 PRBC today. f/u repeat CBC #Acute on CKD - Concrete Batcher stabilized around 2.6 - BUN up-trending -? etiology. ?steroids vs GIB vs dehydration -Nepro on board: prerenal. Adjusted fluids today #Thrombophilia - Resolved -plt wnl #DM -Levemir was increased -ISS -glucose continues to be elevated in 150s -titrate Insulin #TBI -s/p trach and PEG -secondary paraplegia #Hypothyroid -c/w synthroid #Incontinence -christopher -flomax -oxybutinin #depression -zoloft #FEN -Not on fluids. Increased flushes given via G-tube -lytes: mild hypoK. Repleting -Nutrition: via G-tube. Nepro #PPx -held in setting of possible bleed #Dispo -med surg Note: went to speak with son, but he had left already. Asked unit control clerk to call if son returns or wants to speak with me. Elia Prieto MD PGY-1 IM Visit type - Emergency Visit Emergency Visit: No - New Patient This patient is new to me today: No - Critical Care Critical Care patient: No - Discharge Referral Referred to [facility] No
[2018-02-22] MEDS: OXYBUTYNIN CHLORIDE 5 MG TABLET NGT SCH ×2 (17:51→21:17)
[2018-02-22] MEDS ORDERED: PT OWN MED DRAWER 7, Y5N ONE (17:54)
[2018-02-22] MEDS: SERTRALINE HCL 25 MG TABLET (FP) PO SCH (17:58)
[2018-02-22] MEDS: FERROUS SO4 300 MG/5 ML ORAL SOLN UNIT DOSE CUPS GT SCH (17:58)
[2018-02-22] MEDS: COLLAGENASE CLOSTRIDIUM HIST. 30 GRAMS TUBE TP SCH (17:59)
[2018-02-22] MEDS: PROBIOTIC GT SCH (18:00)
[2018-02-22] MEDS: RANITIDINE HCL 150 MG/10 ML UNIT-DOSE PEG SCH (18:00)
[2018-02-22] MEDS ORDERED: INSULIN (NOVOLOG) ASPART 100 UNITS/ML 10ML VIAL ONE (20:55)
[2018-02-22] MEDS: ATORVASTATIN CA 10 MG TABLET (FP) GT SCH (21:17)
[2018-02-22] MEDS: SENNOSIDES 8.8 MG/5 ML BULK BOTTLE PO SCH (21:19)
[2018-02-22 21:53] LABS: BASO % 0.3 % (0-2.0); EOS % 0.2 % (0-4.5); HEMATOCRIT 22.5 % (35.4-49); HEMOGLOBIN 7.4 GM/dL (11.7-16.9); LYMPH % 15.7 % (8-40); MCH 29.1 pg (25.7-33.7); MCHC 32.8 g/dl (32.0-35.9); MEAN CELL VOLUME 88.9 fl (80-96); MEAN PLT VOLUME 9.8 fl (7.5-11.1); MONO % 6.7 % (3.8-10.2); NEUT % 77.1 % (42.8-82.8); PLATELET COUNT 158 K/MM3 (134-434); RBC 2.53 M/mm3 (4.00-5.60); RDW 18.4 % (11.9-15.9); WHITE BLOOD COUNT 9.8 K/mm3 (4.0-10.0)
[2018-02-22] MEDS: INSULIN (LEVEMIR) 100 UNITS/ML UNITS SQ SCH (22:23)
[2018-02-23] MEDS ORDERED: PIPERACILLIN/TAZOBACTAM 2.25 GM VIAL IVPB ONE ×3 (01:33→18:08)
[2018-02-23] MEDS ORDERED: DEXTROSE 5%-WATER - 50 ML IVPB ONE ×3 (01:33→18:09)
[2018-02-23] MEDS: PIPERACILLIN/TAZOB 2.25 GM 2.25 GM in DEXTROSE 5%-WATER - 50 ML IVPB SCH ×3 (01:39→19:55)
[2018-02-23] MEDS ORDERED: METOPROLOL TARTRATE 25 MG TABLET (FP) PO ONE (06:14)
[2018-02-23] MEDS: SUCRALFATE 1 GM/10 ML UNIT DOSE CUPS PEG SCH ×4 (06:30→22:26)
[2018-02-23] MEDS: SODIUM CHLORIDE 0.45% 1,000 ML IV SCH (06:30)
[2018-02-23] MEDS: LEVOTHYROXINE NA 25 MCG TABLET (FP) PEG SCH (06:31)
[2018-02-23] MEDS: INSULIN SLIDING SCALE (NOVOLOG) 1 VIAL SQ SCH ×4 (06:31→22:27)
[2018-02-23] MEDS: BACITRACIN 15 GM TUBE TOPICAL OINTMENT TP SCH ×3 (06:37→22:29)
[2018-02-23 07:51] LABS: BASO % 0.3 % (0-2.0); EOS % 0.2 % (0-4.5); HEMATOCRIT 21.4 % (35.4-49); HEMOGLOBIN 7.1 GM/dL (11.7-16.9); LYMPH % 14.2 % (8-40); MCH 29.5 pg (25.7-33.7); MCHC 33.2 g/dl (32.0-35.9); MEAN CELL VOLUME 88.9 fl (80-96); MEAN PLT VOLUME 10.1 fl (7.5-11.1); MONO % 6.4 % (3.8-10.2); NEUT % 78.9 % (42.8-82.8); PLATELET COUNT 174 K/MM3 (134-434); RBC 2.41 M/mm3 (4.00-5.60); RDW 18.3 % (11.9-15.9); WHITE BLOOD COUNT 13.1 K/mm3 (4.0-10.0)
[2018-02-23 08:22] LABS: CHLORIDE 114 mmol/L (98-107); POTASSIUM 3.3 mmol/L (3.5-5.1); SODIUM 151 mmol/L (136-145)
[2018-02-23] MEDS: TAMSULOSIN HCL 0.4 MG CAP.ER.24H (FP) PO SCH (08:30)
--- NOTE | 2018-02-23 08:39 | PN ---
Physical Exam: SUBJECTIVE: Patient seen and examined at bedside. Unresponsive. OBJECTIVE: Vital Signs Period Temp Pulse Resp BP Sys/Wills Pulse Ox Last 24 Hr 97.7 F-98.8 F 69-84 14-16 105-138/57-97 96-100 Gen: unresponsive to verbal command. Grimace to sternal rub HEENT: NCAT Neck: trach tube in place. No blood at stoma. functioning well Cardio: irregular, tachycardic, norm s1s2, no m/r/g appreciated Lungs: coarse breath sounds anteriorly Abd: soft, less distended Ext: 1+ pulses, no edema Laboratory Results - last 24 hr 02/17/18 02/20/18 02/22/18 00:03 08:44 09:25 WBC 8.7 RBC 2.31 L Hgb 6.7 L* D Hct 20.5 L MCV 88.8 MCH 28.8 MCHC 32.4 RDW 20.2 H Plt Count 153 MPV 10.6 Absolute Neuts (auto) 6.2 Neutrophils % 71.2 Lymphocytes % 18.5 D Monocytes % 10.0 D Eosinophils % 0.0 D Basophils % 0.3 Nucleated RBC % 0 Sodium Potassium Chloride Carbon Dioxide Anion Gap BUN Creatinine Creat Clearance w eGFR POC Glucometer Random Glucose Calcium Total Bilirubin AST ALT Alkaline Phosphatase Total Protein Albumin Blood Type O POSITIVE Antibody Screen Negative Crossmatch See Detail See Detail 02/22/18 02/22/18 02/22/18 09:25 11:57 15:30 WBC RBC Hgb Hct MCV MCH MCHC RDW Plt Count MPV Absolute Neuts (auto) Neutrophils % Lymphocytes % Monocytes % Eosinophils % Basophils % Nucleated RBC % Sodium 148 H Potassium 3.8 Chloride 110 H Carbon Dioxide 27 Anion Gap 11 BUN 212 H* Creatinine 2.8 H Creat Clearance w eGFR 21.64 POC Glucometer 322 Random Glucose 324 H* D Calcium 8.4 L Total Bilirubin 0.3 AST 59 H D ALT 127 H D Alkaline Phosphatase 92 D Total Protein 5.7 L Albumin 2.0 L Blood Type O POSITIVE Antibody Screen Negative Crossmatch See Detail 02/22/18 02/22/18 02/22/18 16:42 21:24 21:35 WBC 9.8 RBC 2.53 L Hgb 7.4 L D Hct 22.5 L MCV 88.9 MCH 29.1 MCHC 32.8 RDW 18.4 H Plt Count 158 MPV 9.8 Absolute Neuts (auto) 7.5 Neutrophils % 77.1 Lymphocytes % 15.7 Monocytes % 6.7 Eosinophils % 0.2 D Basophils % 0.3 Nucleated RBC % 0 Sodium Potassium Chloride Carbon Dioxide Anion Gap BUN Creatinine Creat Clearance w eGFR POC Glucometer 400 311 Random Glucose Calcium Total Bilirubin AST ALT Alkaline Phosphatase Total Protein Albumin Blood Type Antibody Screen Crossmatch 02/23/18 02/23/18 02/23/18 03:31 06:29 06:45 WBC 13.1 H D RBC 2.41 L Hgb 7.1 L Hct 21.4 L MCV 88.9 MCH 29.5 MCHC 33.2 RDW 18.3 H Plt Count 174 MPV 10.1 Absolute Neuts (auto) 10.3 Neutrophils % 78.9 Lymphocytes % 14.2 Monocytes % 6.4 Eosinophils % 0.2 Basophils % 0.3 Nucleated RBC % 0 Sodium Potassium Chloride Carbon Dioxide Anion Gap BUN Creatinine Creat Clearance w eGFR POC Glucometer 176 204 Random Glucose Calcium Total Bilirubin AST ALT Alkaline Phosphatase Total Protein Albumin Blood Type Antibody Screen Crossmatch 02/23/18 06:45 WBC RBC Hgb Hct MCV MCH MCHC RDW Plt Count MPV Absolute Neuts (auto) Neutrophils % Lymphocytes % Monocytes % Eosinophils % Basophils % Nucleated RBC % Sodium 151 H Potassium 3.3 L Chloride 114 H Carbon Dioxide Anion Gap BUN Creatinine Creat Clearance w eGFR POC Glucometer Random Glucose Calcium Total Bilirubin AST ALT Alkaline Phosphatase Total Protein Albumin Blood Type Antibody Screen Crossmatch Active Medications Generic Name Dose Route Start Last Admin Trade Name Freq PRN Reason Stop Dose Admin Acetaminophen 650 mg 02/17/18 17:28 Tylenol - PO Q4H PRN FEVER Artificial Tears 2 drop 02/17/18 22:00 02/22/18 21:17 Artificial Tears OU 2 drop BID [facility] Administration Atorvastatin Calcium 10 mg 02/17/18 22:00 02/22/18 21:17 Lipitor - GT 10 mg HS [facility] Administration Bacitracin 1 applic 02/17/18 22:00 02/23/18 06:37 Bacitracin - TP 1 applic TID [facility] Administration Collagenase 1 applic 02/19/18 16:00 02/22/18 17:59 Santyl - TP 1 applic DAILY [facility] Administration Docusate Sodium 100 mg 02/21/18 11:37 Colace Liquid - PO DAILY PRN CONSTIPATION Ferrous Sulfate 300 mg 02/18/18 10:00 02/22/18 17:58 Feosol GT 300 mg DAILY [facility] Administration Piperacillin Sod/Tazobactam 50 mls @ 100 mls/hr 02/18/18 02:00 02/23/18 01:39 Sod 2.25 gm/ Dextrose IVPB 100 mls/hr Q8H-IV [facility] Administration Protocol Sodium Chloride 1,000 mls @ 75 mls/hr 02/22/18 13:00 02/23/18 06:30 1/2 Normal Saline IV 75 mls/hr ASDIR [facility] Administration Insulin Aspart 1 vial 02/19/18 08:16 02/23/18 06:31 Novolog Vial Sliding Scale - SQ 4 units ACHS [facility] Administration Protocol Insulin Detemir 20 units 02/20/18 11:05 02/22/18 22:23 Levemir Vial SQ 20 units HS [facility] Administration Levothyroxine Sodium 37.5 mcg 02/18/18 07:00 02/23/18 06:31 Synthroid - PEG 37.5 mcg DAILY@0700 [facility] Administration Non-Formulary Med ( 1 each 02/21/18 20:00 02/22/18 18:00 Probiotic) GT 1 each DAILY [facility] Administration Oxybutynin Chloride 5 mg 02/17/18 22:00 02/22/18 21:17 Ditropan - NGT 5 mg BID [facility] Administration Prednisolone Sodium Phosphate 30 mg 02/22/18 14:17 Orapred (15 Mg/5 Ml) Oral Solution - PEG DAILY [facility] Ranitidine HCl 150 mg 02/21/18 10:00 02/22/18 18:00 Zantac Oral Solution - PEG 150 mg DAILY [facility] Administration Senna 8.8 mg 02/21/18 22:00 02/22/18 21:19 Senna Oral Solution - PO 8.8 ml HS [facility] Administration Sertraline HCl 25 mg 02/17/18 17:27 02/22/18 17:58 Zoloft - PO 25 mg DAILY [facility] Administration Sucralfate 1 gm 02/19/18 11:00 02/23/18 06:30 Carafate Oral Suspension - PEG 1 gm ACHS [facility] Administration Tamsulosin HCl 0.4 mg 02/18/18 08:30 02/22/18 08:27 Flomax - PO Not Given DAILY@0830 [facility] ASSESSMENT/PLAN: Pt is an 87 y/o M with PMH significant for 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 Pt is admitted to Med-Surg. #Abdominal distension -intermittent large volume stools reported -abdomen soft, distended, tympanic -NPO -CTAP neg for volvulus #Acute on chronic resp failure -likely 2/2 aspiration PNA -at baseline vent settings: AC Tv 450, RR 14, FiO2 28, PEEP 5 -Initially on Medrol 40. d/c'ed -Prednisone 40 -Pulm on board: poor weaning candidate #Asp PNA -Zosyn -ID on board: rec possible deescalation of Abx by Mon -Bactrim #Anemia -was transfused 6 PRBCs total -Hb stable last 2 days -Given Epo (02/20/2018) -Heme on board: will give weekly Epo -No obvious active bleed -per son, had negative colonoscopy 2 years ago -1 PRBC today. f/u repeat CBC #Acute on CKD - [employer] stabilized around 2.6 - BUN up-trending -? etiology. ?steroids vs GIB vs dehydration -Nepro on board: prerenal. Adjusted fluids today #Hypernatremia -fluids modified by nephro -Nephro input appreciated #Thrombophilia - Resolved -plt wnl #DM -Levemir was increased -ISS -glucose continues to be elevated in 150s -titrate Insulin #TBI -s/p trach and PEG -secondary paraplegia #Hypothyroid -c/w synthroid #Incontinence -christopher -flomax -oxybutinin #depression -zoloft #FEN -Not on fluids. Increased flushes given via G-tube -lytes: mild hypoK. Repleting -Nutrition: via G-tube. Nepro #PPx -held in setting of possible bleed #Dispo -med surg Elia Prieto MD PGY-1 IM Visit type - Emergency Visit Emergency Visit: No - New Patient This patient is new to me today: No - Critical Care Critical Care patient: No - Discharge Referral Referred to [facility] Med P.C.: No
[2018-02-23 08:43] LABS: ALK PHOS 58 U/L (45-117); ANION GAP 12 (8-16); BILIRUBIN,TOTAL 0.3 mg/dL (0.2-1.0); CALCIUM 8.3 mg/dL (8.5-10.1); CO2 25 mmol/L (21-32); CREATININE 2.7 mg/dL (0.7-1.3); GLUCOSE,RANDOM 150 mg/dL (74-106); SGOT/AST 26 U/L (15-37); SGPT/ALT 83 U/L (12-78); TOT PROT 5.6 g/dl (6.4-8.2)
[2018-02-23 08:47] LABS: BLOOD UREA NITROGEN 211 mg/dL (7-18)
[2018-02-23] MEDS ORDERED: PT OWN MED DRAWER 7, Y5N ONE ×3 (10:59→22:34)
[2018-02-23] MEDS: SERTRALINE HCL 25 MG TABLET (FP) PO SCH (11:04)
[2018-02-23] MEDS: OXYBUTYNIN CHLORIDE 5 MG TABLET NGT SCH ×2 (11:04→22:26)
[2018-02-23] MEDS: FERROUS SO4 300 MG/5 ML ORAL SOLN UNIT DOSE CUPS GT SCH (11:04)
[2018-02-23] MEDS: RANITIDINE HCL 150 MG/10 ML UNIT-DOSE PEG SCH (11:04)
[2018-02-23] MEDS: prednisoLONE SODIUM PHOSPHATE 15 MG/5 ML ORAL SOLN BOTTLE PEG SCH (11:05)
[2018-02-23] MEDS: PROBIOTIC GT SCH (11:05)
--- NOTE | 2018-02-23 11:14 | PN ---
Progress Note (short form) - Note Progress Note: PULMONARY Vented, poorly responsive. No fevers recorded. Vital Signs Period Temp Pulse Resp BP Sys/Wills Pulse Ox Last 24 Hr 97.7 F-98.8 F 69-84 14-16 112-138/59-97 100 Gen: vented, poorly responsive Heart: RRR Lung: decreased breath sounds at the bases Abd: soft, nontender Ext: no edema CBC, BMP 02/23/18 06:45 02/23/18 06:45 Active Medications Acetaminophen (Tylenol -) 650 mg PO Q4H PRN PRN Reason: FEVER Artificial Tears (Artificial Tears) 2 drop OU BID [facility] Last Admin: 02/22/18 21:17 Dose: 2 drop Atorvastatin Calcium (Lipitor -) 10 mg GT HS [facility] Last Admin: 02/22/18 21:17 Dose: 10 mg Bacitracin (Bacitracin -) 1 applic TP TID [facility] Last Admin: 02/23/18 06:37 Dose: 1 applic Collagenase (Santyl -) 1 applic TP DAILY [facility] Last Admin: 02/22/18 17:59 Dose: 1 applic Docusate Sodium (Colace Liquid -) 100 mg PO DAILY PRN PRN Reason: CONSTIPATION Ferrous Sulfate (Feosol) 300 mg GT DAILY [facility] Last Admin: 02/23/18 11:04 Dose: 300 mg Piperacillin Sod/Tazobactam (Sod 2.25 gm/ Dextrose) 50 mls @ 100 mls/hr IVPB Q8H-IV [facility]; Protocol Last Admin: 02/23/18 11:06 Dose: 100 mls/hr Sodium Chloride (1/2 Normal Saline) 1,000 mls @ 75 mls/hr IV ASDIR [facility] Last Admin: 02/23/18 06:30 Dose: 75 mls/hr Insulin Aspart (Novolog Vial Sliding Scale -) 1 vial SQ ACHS [facility]; Protocol Last Admin: 02/23/18 06:31 Dose: 4 units Insulin Detemir (Levemir Vial) 20 units SQ HS [facility] Last Admin: 02/22/18 22:23 Dose: 20 units Levothyroxine Sodium (Synthroid -) 37.5 mcg PEG DAILY@0700 [facility] Last Admin: 02/23/18 06:31 Dose: 37.5 mcg Non-Formulary Med ( (Probiotic)) 1 each GT DAILY [facility] Last Admin: 02/23/18 11:05 Dose: 1 each Oxybutynin Chloride (Ditropan -) 5 mg NGT BID [facility] Last Admin: 02/23/18 11:04 Dose: 5 mg Prednisolone Sodium Phosphate (Orapred (15 Mg/5 Ml) Oral Solution -) 30 mg PEG DAILY [facility] Last Admin: 02/23/18 11:05 Dose: 30 mg Ranitidine HCl (Zantac Oral Solution -) 150 mg PEG DAILY [facility] Last Admin: 02/23/18 11:04 Dose: 150 mg Senna (Senna Oral Solution -) 8.8 mg PO HS [facility] Last Admin: 02/22/18 21:19 Dose: 8.8 ml Sertraline HCl (Zoloft -) 25 mg PO DAILY [facility] Last Admin: 02/23/18 11:04 Dose: 25 mg Sucralfate (Carafate Oral Suspension -) 1 gm PEG ACHS [facility] Last Admin: 02/23/18 11:04 Dose: 1 gm Tamsulosin HCl (Flomax -) 0.4 mg PO DAILY@0830 [facility] Last Admin: 02/23/18 08:30 Dose: 0.4 mg A/P Chronic Respiratory Failure Pneumonia h/o Traumatic Brain Injury Functional Quadriplegia Acute on Chronic Renal Failure Atrial Fibrillation DM Dementia - antibiotics per ID - taper off steroids - continue volume assist control - poor candidate for weaning due to poor mental status - enteral feeds - DVT/GI prophylaxis
[2018-02-23] MEDS: ARTIFICIAL TEARS (POLYVINYL ALCOHOL 1.4%) OPTH DROPS OU SCH ×2 (11:23→22:24)
[2018-02-23] MEDS ORDERED: INSULIN (NOVOLOG) ASPART 100 UNITS/ML 10ML VIAL ONE (11:27)
--- NOTE | 2018-02-23 12:55 | PN ---
Progress Note, Physician Chief Complaint: The patient seen in his room. Remains vent supported. Seems comfortable. For CT scan of abdomen to evaluate PEG tube position. Temp 99.1 History of Present Illness: Patient is an 87 year old man with a significant past medical history of TBI due to fall (s/p neck (C4,5, and 6)/ back surgery, BPH, ESBL Proteus UTI, ventilator-dependence via tracheotomy, PEG tube feeding, frequent pneumonia, A- fib, CHF, DM, dementia, CKD stage III, nonverbal, quadriplegia, legally blind and deaf. Maintains good urine output. GI w/u in progress. For Ct scan. NPO now. - Current Medication List Current Medications: Active Medications Acetaminophen (Tylenol -) 650 mg PO Q4H PRN PRN Reason: FEVER Artificial Tears (Artificial Tears) 2 drop OU BID [facility] Last Admin: 02/23/18 11:23 Dose: 2 drop Atorvastatin Calcium (Lipitor -) 10 mg GT HS [facility] Last Admin: 02/22/18 21:17 Dose: 10 mg Bacitracin (Bacitracin -) 1 applic TP TID [facility] Last Admin: 02/23/18 06:37 Dose: 1 applic Collagenase (Santyl -) 1 applic TP DAILY [facility] Last Admin: 02/22/18 17:59 Dose: 1 applic Docusate Sodium (Colace Liquid -) 100 mg PO DAILY PRN PRN Reason: CONSTIPATION Ferrous Sulfate (Feosol) 300 mg GT DAILY [facility] Last Admin: 02/23/18 11:04 Dose: 300 mg Piperacillin Sod/Tazobactam (Sod 2.25 gm/ Dextrose) 50 mls @ 100 mls/hr IVPB Q8H-IV [facility]; Protocol Last Admin: 02/23/18 11:06 Dose: 100 mls/hr Dextrose/Sodium Chloride (D5-1/4ns -) 1,000 mls @ 83 mls/hr IV ASDIR [facility] Insulin Aspart (Novolog Vial Sliding Scale -) 1 vial SQ [facility]; Protocol Last Admin: 02/23/18 11:28 Dose: 2 units Insulin Detemir (Levemir Vial) 20 units SQ [facility] Last Admin: 02/22/18 22:23 Dose: 20 units Levothyroxine Sodium (Synthroid -) 37.5 mcg PEG DAILY@0700 [facility] Last Admin: 02/23/18 06:31 Dose: 37.5 mcg Non-Formulary Med ( (Probiotic)) 1 each GT DAILY [facility] Last Admin: 02/23/18 11:05 Dose: 1 each Oxybutynin Chloride (Ditropan -) 5 mg NGT BID [facility] Last Admin: 02/23/18 11:04 Dose: 5 mg Prednisolone Sodium Phosphate (Orapred (15 Mg/5 Ml) Oral Solution -) 30 mg PEG DAILY [facility] Last Admin: 02/23/18 11:05 Dose: 30 mg Ranitidine HCl (Zantac Oral Solution -) 150 mg PEG DAILY [facility] Last Admin: 02/23/18 11:04 Dose: 150 mg Senna (Senna Oral Solution -) 8.8 mg PO HS [facility] Last Admin: 02/22/18 21:19 Dose: 8.8 ml Sertraline HCl (Zoloft -) 25 mg PO DAILY [facility] Last Admin: 02/23/18 11:04 Dose: 25 mg Sucralfate (Carafate Oral Suspension -) 1 gm PEG ACHS [facility] Last Admin: 02/23/18 11:04 Dose: 1 gm Tamsulosin HCl (Flomax -) 0.4 mg PO DAILY@0830 [facility] Last Admin: 02/23/18 08:30 Dose: 0.4 mg - Objective Vital Signs: Vital Signs Temperature 99.1 F 02/23/18 10:00 Pulse Rate 74 02/23/18 10:00 Respiratory Rate 14 02/23/18 10:29 Blood Pressure 124/50 02/23/18 10:00 O2 Sat by Pulse Oximetry (%) 100 02/22/18 21:00 Constitutional: Yes: No Distress, Pallor Eyes: Yes: Conjunctiva Clear Neck: Yes: Trachea Midline Cardiovascular: Yes: S1, S2 Respiratory: Yes: Mechanically Ventilated Gastrointestinal: Yes: Soft, Distention Genitourinary: No: CVA Tenderness - Left, CVA Tenderness - Right Musculoskeletal: Yes: Joint Stiffness Edema: LLE: Trace, RLE: Trace Neurological: Yes: Unresponsive Labs: CBC, BMP 02/23/18 06:45 02/23/18 06:45 INR, PTT INR 1.13 (0.82-1.09) 02/16/18 22:40 Problem List - Problems (1) Acute renal failure Code(s): N17.9 - ACUTE KIDNEY FAILURE, UNSPECIFIED (2) Chronic kidney disease, stage 3 Code(s): N18.3 - CHRONIC KIDNEY DISEASE, STAGE 3 (MODERATE) (3) Anemia Code(s): D64.9 - ANEMIA, UNSPECIFIED Qualifiers: Anemia type: due to chronic kidney disease Chronic kidney disease stage: unspecified stage Qualified Code(s): N18.9 - Chronic kidney disease, unspecified; D63.1 - Anemia in chronic kidney disease (4) Chronic respiratory failure Code(s): J96.10 - CHRONIC RESPIRATORY FAILURE, UNSP W HYPOXIA OR HYPERCAPNIA Qualifiers: Respiratory failure complication: unspecified whether with hypoxia or hypercapnia Qualified Code(s): J96.10 - Chronic respiratory failure, unspecified whether with hypoxia or hypercapnia (5) PAF (paroxysmal atrial fibrillation) Code(s): I48.0 - PAROXYSMAL ATRIAL FIBRILLATION (6) A-fib Code(s): I48.91 - UNSPECIFIED ATRIAL FIBRILLATION (7) 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 Acute renal failure superimposed on CKD. The acute renal dysfunction due to sepsis, altered renal hemodynamics with resultant real hypoperfusion. The profound elevation of the BUN ( 211mg) due to Steroids. The Serum Cr is stable. Hypernatremia, due to free water loss. IV fluids modified. Profound anemia...? etiology. ? More transfusions. Suggest: IV fluids as modified in view of the Hypernatremia. Azotemia is significantly Steroid dependent. .? PRBC transfusion. Will give hydration through the G tube once it is usable. Will monitor the renal functions with you. Thank you. Will follow with you. Margarita Caban MD
[2018-02-23] MEDS: DEXTROSE 5%-0.2% SALINE - 1,000 ML IV SCH (14:09)
[2018-02-23] MEDS: COLLAGENASE CLOSTRIDIUM HIST. 30 GRAMS TUBE TP SCH (14:10)
--- NOTE | 2018-02-23 14:28 | PN ---
Progress Note, Physician Chief Complaint: Pt on ventilator/trached. opens eyes when being changed in bed; otherwise, no significant response. History of Present Illness: The patient is an 87 year old white male, with a significant past medical history of traumatic fall (s/p neck (C4,5, and 6)/back surgery, tracheotomy placement now ventilator dependent, and PEG tube placement), frequent pneumonia , emphysema, A-fib, diastolic CHF, DM, dementia, renal failure, nonverbal TBI, paraplegic, legally blind and deaf, who presents to the emergency department via EMS from [facility] with, 3 days of hypotension. As per patients son, his blood pressure has been decreasing over the past few days. He reports that his systolic is between 110-119 in the mornings and between 100-109 at night. The patient fluctuates at baseline between bradycardia and tachycardia. Allergies: NKA Social History: Former smoker (Quit 35 years ago). Denies EtOH use and recreational drug use. Primary Care Physician/Dealership Manager: Dr. Velez - Current Medication List Current Medications: Active Medications Acetaminophen (Tylenol -) 650 mg PO Q4H PRN PRN Reason: FEVER Artificial Tears (Artificial Tears) 2 drop OU BID [facility] Last Admin: 02/23/18 11:23 Dose: 2 drop Atorvastatin Calcium (Lipitor -) 10 mg GT HS [facility] Last Admin: 02/22/18 21:17 Dose: 10 mg Bacitracin (Bacitracin -) 1 applic TP TID [facility] Last Admin: 02/23/18 14:11 Dose: 1 applic Collagenase (Santyl -) 1 applic TP DAILY [facility] Last Admin: 02/23/18 14:10 Dose: 1 applic Docusate Sodium (Colace Liquid -) 100 mg PO DAILY PRN PRN Reason: CONSTIPATION Ferrous Sulfate (Feosol) 300 mg GT DAILY [facility] Last Admin: 02/23/18 11:04 Dose: 300 mg Piperacillin Sod/Tazobactam (Sod 2.25 gm/ Dextrose) 50 mls @ 100 mls/hr IVPB Q8H-IV [facility]; Protocol Last Admin: 02/23/18 11:06 Dose: 100 mls/hr Dextrose/Sodium Chloride (D5-1/4ns -) 1,000 mls @ 83 mls/hr IV ASDIR [facility] Last Admin: 02/23/18 14:09 Dose: 83 mls/hr Insulin Aspart (Novolog Vial Sliding Scale -) 1 vial SQ [facility]; Protocol Last Admin: 02/23/18 11:28 Dose: 2 units Insulin Detemir (Levemir Vial) 20 units SQ [facility] Last Admin: 02/22/18 22:23 Dose: 20 units Levothyroxine Sodium (Synthroid -) 37.5 mcg PEG DAILY@0700 [facility] Last Admin: 02/23/18 06:31 Dose: 37.5 mcg Non-Formulary Med ( (Probiotic)) 1 each GT DAILY [facility] Last Admin: 02/23/18 11:05 Dose: 1 each Oxybutynin Chloride (Ditropan -) 5 mg NGT BID [facility] Last Admin: 02/23/18 11:04 Dose: 5 mg Prednisolone Sodium Phosphate (Orapred (15 Mg/5 Ml) Oral Solution -) 30 mg PEG DAILY [facility] Last Admin: 02/23/18 11:05 Dose: 30 mg Ranitidine HCl (Zantac Oral Solution -) 150 mg PEG DAILY [facility] Last Admin: 02/23/18 11:04 Dose: 150 mg Senna (Senna Oral Solution -) 8.8 mg PO [facility] Last Admin: 02/22/18 21:19 Dose: 8.8 ml Sertraline HCl (Zoloft -) 25 mg PO DAILY [facility] Last Admin: 02/23/18 11:04 Dose: 25 mg Sucralfate (Carafate Oral Suspension -) 1 gm PEG [facility] Last Admin: 02/23/18 11:04 Dose: 1 gm Tamsulosin HCl (Flomax -) 0.4 mg PO DAILY@0830 [facility] Last Admin: 02/23/18 08:30 Dose: 0.4 mg - Objective Vital Signs: Vital Signs Temperature 100.1 F H 02/23/18 14:00 Pulse Rate 81 02/23/18 14:00 Respiratory Rate 14 02/23/18 14:00 Blood Pressure 124/59 02/23/18 14:00 O2 Sat by Pulse Oximetry (%) 100 02/22/18 21:00 Constitutional: Yes: Thin, Other Eyes: Yes: WNL Neck: Yes: Decreased ROM Cardiovascular: Yes: Regular Rate and Rhythm Respiratory: Yes: Diminished, Mechanically Ventilated Gastrointestinal: Yes: Soft Genitourinary: No: Anuria Musculoskeletal: Yes: Muscle Weakness Extremities: Yes: Cool Edema: No Peripheral Pulses WNL: No Peripheral Pulses: Left Doralis Pedis: 1+, Right Dorsalis Pedis: 1+ Integumentary: Yes: WNL Wound/Incision: Yes: Other (tracheostomy) Neurological: Yes: Weakness Psychiatric: Yes: Other (dementia) Labs: CBC, BMP 02/23/18 06:45 02/23/18 06:45 INR, PTT INR 1.13 (0.82-1.09) 02/16/18 22:40 Abnormal Lab Results 02/22/18 02/24/18 02/24/18 15:30 05:50 05:50 WBC 11.3 H RBC 2.29 L Hgb 6.9 L* Hct 20.3 L RDW 17.6 H Sodium 149 H Potassium 3.4 L Chloride 113 H BUN 197 H* Creatinine 2.7 H Random Glucose 261 H D Calcium 8.0 L Total Protein 5.3 L Albumin 2.0 L Crossmatch See Detail Problem List - Problems (1) Anemia Assessment/Plan: s/p 4 U PRBCs; Hb improved from 5.7 to 7.9; now 7.1 Maintain hydration. F/u Hb serially; stool quaiac. Code(s): D64.9 - ANEMIA, UNSPECIFIED Qualifiers: Anemia type: due to chronic kidney disease Chronic kidney disease stage: unspecified stage Qualified Code(s): N18.9 - Chronic kidney disease, unspecified; D63.1 - Anemia in chronic kidney disease (2) Chronic kidney disease, stage 3 Code(s): N18.3 - CHRONIC KIDNEY DISEASE, STAGE 3 (MODERATE) (3) Chronic respiratory failure Assessment/Plan: Ventilator dependent; on trach. Code(s): J96.10 - CHRONIC RESPIRATORY FAILURE, UNSP W HYPOXIA OR HYPERCAPNIA Qualifiers: Respiratory failure complication: unspecified whether with hypoxia or hypercapnia Qualified Code(s): J96.10 - Chronic respiratory failure, unspecified whether with hypoxia or hypercapnia (4) Hematuria Code(s): R31.9 - HEMATURIA, UNSPECIFIED (5) Hypotension Code(s): I95.9 - HYPOTENSION, UNSPECIFIED (6) PAF (paroxysmal atrial fibrillation) Assessment/Plan: EKG 02/23/18: AF with RVR (HR 150 bpm); now has HR in 80s bpm. Pt has been of AV conduction blockers due to periods of marked bradycardia. F/u EKG repeat. May consider small doses of metoprolol or diltiazem if high HR recurs (would require telemetry then). TSH 3.59 recently. Code(s): I48.0 - PAROXYSMAL ATRIAL FIBRILLATION (7) S/P percutaneous endoscopic gastrostomy (PEG) tube placement Code(s): Z93.1 - GASTROSTOMY STATUS (8) Tracheostomy dependent Code(s): Z93.0 - TRACHEOSTOMY STATUS (9) Acute on chronic diastolic CHF (congestive heart failure) Code(s): I50.33 - ACUTE ON CHRONIC DIASTOLIC (CONGESTIVE) HEART FAILURE (10) Sinus bradycardia Code(s): R00.1 - BRADYCARDIA, UNSPECIFIED (11) TBI (traumatic brain injury) Code(s): S06.9X9A - UNSP INTRACRANIAL INJURY W LOC OF UNSP DURATION, INIT Qualifiers: Encounter type: sequela Loss of consciousness presence/duration: with LOC of unspecified duration Qualified Code(s): S06.9X9S - Unspecified intracranial injury with loss of consciousness of unspecified duration, sequela (12) Severe mitral regurgitation Code(s): I34.0 - NONRHEUMATIC MITRAL (VALVE) INSUFFICIENCY
--- NOTE | 2018-02-23 14:48 | PN ---
Teaching Attending Note Name of Resident: Elia Prieto ATTENDING PHYSICIAN STATEMENT I saw and evaluated the patient. I reviewed the resident's note and discussed the case with the resident. I agree with the resident's findings and plan as documented with exceptions below. SUBJECTIVE: Patient seen and examined, opens eyes but non verbal, unable to do ROS. OBJECTIVE: Vital Signs Period Temp Pulse Resp BP Sys/Wills Pulse Ox Last 24 Hr 97.7 F-100.1 F 69-84 14-16 112-138/50-97 100 Intake & Output 02/20/18 02/21/18 02/22/18 02/23/18 23:59 23:59 23:59 23:59 Intake Total 1700 255 58 4359 Output Total 1400 2705 448 5825 Balance 300 -700 -850 -50 Weight 146 lb 12.8 oz 145 lb 6.4 oz General: lying in bed, no acute distress Chest: limited exam, decreased effort but unable to appreciate rales or wheezing , positive air entry Abdomen:soft, tympanic, good bowel sounds in all quadrants, no voluntary or involuntary guarding or rigidity Extremities: no edema Home Medication List Medication Instructions Recorded Confirmed Type Acetaminophen [Tylenol] 650 mg PO Q6H PRN 01/21/18 02/17/18 History Bacitracin - [Bacitracin Topical 1 applic TP TID 01/21/18 02/17/18 History Ointment -] Baclofen 10 mg GT Q8H 01/21/18 02/17/18 History Balsam Zabrina/[place]as[place] Oil [Venelex 1 applic TP BID 01/21/18 02/17/18 History Ointment] Docusate Sodium [Colace -] 100 mg GT ASDIR 01/21/18 02/17/18 History Ferrous Sulfate [Feosol] 300 mg GT DAILY 01/21/18 02/17/18 History Glycopyrrolate/Formoterol Fum 0 gm IH BID 01/21/18 02/17/18 History [Bevespi Aerosphere Inhaler] Heparin - 5,000 unit SQ BID 01/21/18 02/17/18 History Hypromellose 0.5% Opth Soln 2 drop OU BID 01/21/18 02/17/18 History [Artificial Tears] Insulin Glargine,Hum.rec.anlog 9 units SQ HS 01/21/18 02/17/18 History [Lantus Solostar PEN -] Insulin Lispro [Humalog] 0 unit SQ Q6H 01/21/18 02/17/18 History L.acidoph,Paracasei, B.lactis 1 each GT DAILY 01/21/18 02/17/18 History [Probiotic] Lanolin/Mineral Oil [Eucerin 1 applic TP Q6H 01/21/18 02/17/18 History Original Lotion] Levothyroxine Sodium [Synthroid] 37.5 mcg GT BID 01/21/18 02/17/18 History Oxybutynin Chloride 5 mg GT BID 01/21/18 02/17/18 History Ranitidine [Zantac -] 150 mg GT DAILY 01/21/18 02/17/18 History Sertraline HCl [Zoloft] 25 mg GT DAILY 01/21/18 02/17/18 History Silver Sulfadiazine 1% Top Cr 1 applic TP DAILY 01/21/18 02/17/18 History [Silvadene -] Simethicone 40 mg GT Q6H 01/21/18 02/17/18 History Simvastatin 20 mg GT DAILY 01/21/18 02/17/18 History Tamsulosin HCl 0.4 mg GT DAILY 01/21/18 02/17/18 History Zinc Oxide 1 applic TP BID 01/21/18 02/17/18 History Active Medications Generic Name Dose Route Start Last Admin Trade Name Freq PRN Reason Stop Dose Admin Acetaminophen 650 mg 02/17/18 17:28 Tylenol - PO Q4H PRN FEVER Artificial Tears 2 drop 02/17/18 22:00 02/23/18 11:23 Artificial Tears OU 2 drop BID [facility] Administration Atorvastatin Calcium 10 mg 02/17/18 22:00 02/22/18 21:17 Lipitor - GT 10 mg HS [facility] Administration Bacitracin 1 applic 02/17/18 22:00 02/23/18 14:11 Bacitracin - TP 1 applic TID [facility] Administration Collagenase 1 applic 02/19/18 16:00 02/23/18 14:10 Santyl - TP 1 applic DAILY [facility] Administration Docusate Sodium 100 mg 02/21/18 11:37 Colace Liquid - PO DAILY PRN CONSTIPATION Ferrous Sulfate 300 mg 02/18/18 10:00 02/23/18 11:04 Feosol GT 300 mg DAILY [facility] Administration Piperacillin Sod/Tazobactam 50 mls @ 100 mls/hr 02/18/18 02:00 02/23/18 11:06 Sod 2.25 gm/ Dextrose IVPB 100 mls/hr Q8H-IV [facility] Administration Protocol Dextrose/Sodium Chloride 1,000 mls @ 83 mls/hr 02/23/18 13:00 02/23/18 14:09 D5-1/4ns - IV 83 mls/hr ASDIR [facility] Administration Insulin Aspart 1 vial 02/19/18 08:16 02/23/18 11:28 Novolog Vial Sliding Scale - SQ 2 units ACHS [facility] Administration Protocol Insulin Detemir 20 units 02/20/18 11:05 02/22/18 22:23 Levemir Vial SQ 20 units HS [facility] Administration Levothyroxine Sodium 37.5 mcg 02/18/18 07:00 02/23/18 06:31 Synthroid - PEG 37.5 mcg DAILY@0700 [facility] Administration Non-Formulary Med ( 1 each 02/21/18 20:00 02/23/18 11:05 Probiotic) GT 1 each DAILY [facility] Administration Oxybutynin Chloride 5 mg 02/17/18 22:00 02/23/18 11:04 Ditropan - NGT 5 mg BID [facility] Administration Prednisolone Sodium Phosphate 30 mg 02/22/18 14:17 02/23/18 11:05 Orapred (15 Mg/5 Ml) Oral Solution - PEG 30 mg DAILY [facility] Administration Ranitidine HCl 150 mg 02/21/18 10:00 02/23/18 11:04 Zantac Oral Solution - PEG 150 mg DAILY [facility] Administration Senna 8.8 mg 02/21/18 22:00 02/22/18 21:19 Senna Oral Solution - PO 8.8 ml HS [facility] Administration Sertraline HCl 25 mg 02/17/18 17:27 02/23/18 11:04 Zoloft - PO 25 mg DAILY [facility] Administration Sucralfate 1 gm 02/19/18 11:00 02/23/18 11:04 Carafate Oral Suspension - PEG 1 gm ACHS [facility] Administration Tamsulosin HCl 0.4 mg 02/18/18 08:30 02/23/18 08:30 Flomax - PO 0.4 mg DAILY@0830 [facility] Administration Microbiology 02/17/18 03:00 Blood - Peripheral Venous Blood Culture - Final NO GROWTH AFTER 5 DAYS INCUBATION 02/17/18 03:00 Blood - Peripheral Venous Blood Culture - Final NO GROWTH AFTER 5 DAYS INCUBATION 02/17/18 10:40 Sputum - Endotrachea Suction/Ventilator Gram Stain - Final 02/17/18 10:40 Sputum - Endotrachea Suction/Ventilator Sputum Culture - Final Pseudomonas Aeruginosa Pseudo Fluorescens/[place] 02/16/18 23:40 Urine - Urine Clean Catch Urine Culture - Final NO GROWTH OBTAINED Abdominal xray improved ASSESSMENT AND PLAN: 87 year old male with a significant past medical history of diastolic heart failure, NIDDM, CKD, and 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 Admitted on 02/17/18 from [facility] chronic respiratory failure and severe anemia with a hg of 5.5 and hypotension. -Acute on chronic vent dependent respiratory failure, likely aspiration PNA. 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 At baseline vent settings, rapid steroid taper, change to 20 mg tomorrow. Pulmonary input appreciated. Patient with good bowel sounds, had 2 BM yesterday, large, non tender abdomen with improved distension and abdominal xray. Clinically not concerning for Sigmoid volvulus. GI/surgery input noted. Check CT A/P with oral contrast via PEG. h/h noted. Repeat FOBT pos though no gross evidence of bleed, discuss with GI. Hematology input noted. Continue Fe supplementation. Monitor renal function, cr overall plateaued, Renal inpu tnoted. -Levemir, ISS, tube feeds on hold pending above GI concerns. Continue oxybutynin/flomax/zoloft. DVTPPX with SCDs given recurrent anemia with multiple transfusions and positive FOBT. Plan discussed with nursing.
--- NOTE | 2018-02-23 15:01 | EKG ---
Test Reason : Blood Pressure : / mmHG Vent. Rate : 144 BPM Atrial Rate : 150 BPM P-R Int : 000 ms QRS Dur : 068 ms QT Int : 284 ms P-R-T Axes : 000 039 242 degrees QTc Int : 439 ms ATRIAL FIBRILLATION WITH RAPID VENTRICULAR RESPONSE NONSPECIFIC ST AND T WAVE ABNORMALITY ABNORMAL ECG WHEN COMPARED WITH ECG OF 17-FEB-2018 00:12, ATRIAL FIBRILLATION HAS REPLACED SINUS RHYTHM VENT. RATE HAS INCREASED BY 70 BPM NON-SPECIFIC CHANGE IN ST SEGMENT IN LATERAL LEADS NONSPECIFIC T WAVE ABNORMALITY, WORSE IN LATERAL LEADS Confirmed by MD Ck, Grayson ([id number]) on 02/23/2018 3:00:50 PM Referred By: Confirmed By:Grayson Stover MD
--- NOTE | 2018-02-23 15:56 | PN ---
Progress Note, Physician History of Present Illness: patient abd distension better having bm no changes in mental status - Current Medication List Current Medications: Active Medications Acetaminophen (Tylenol -) 650 mg PO Q4H PRN PRN Reason: FEVER Artificial Tears (Artificial Tears) 2 drop OU BID [facility] Last Admin: 02/23/18 11:23 Dose: 2 drop Atorvastatin Calcium (Lipitor -) 10 mg GT HS [facility] Last Admin: 02/22/18 21:17 Dose: 10 mg Bacitracin (Bacitracin -) 1 applic TP TID [facility] Last Admin: 02/23/18 14:11 Dose: 1 applic Collagenase (Santyl -) 1 applic TP DAILY [facility] Last Admin: 02/23/18 14:10 Dose: 1 applic Docusate Sodium (Colace Liquid -) 100 mg PO DAILY PRN PRN Reason: CONSTIPATION Ferrous Sulfate (Feosol) 300 mg GT DAILY [facility] Last Admin: 02/23/18 11:04 Dose: 300 mg Piperacillin Sod/Tazobactam (Sod 2.25 gm/ Dextrose) 50 mls @ 100 mls/hr IVPB Q8H-IV [facility]; Protocol Last Admin: 02/23/18 11:06 Dose: 100 mls/hr Dextrose/Sodium Chloride (D5-1/4ns -) 1,000 mls @ 83 mls/hr IV ASDIR [facility] Last Admin: 02/23/18 14:09 Dose: 83 mls/hr Insulin Aspart (Novolog Vial Sliding Scale -) 1 vial SQ ACHS [facility]; Protocol Last Admin: 02/23/18 11:28 Dose: 2 units Insulin Detemir (Levemir Vial) 20 units SQ HS [facility] Last Admin: 02/22/18 22:23 Dose: 20 units Levothyroxine Sodium (Synthroid -) 37.5 mcg PEG DAILY@0700 [facility] Last Admin: 02/23/18 06:31 Dose: 37.5 mcg Non-Formulary Med ( (Probiotic)) 1 each GT DAILY [facility] Last Admin: 02/23/18 11:05 Dose: 1 each Oxybutynin Chloride (Ditropan -) 5 mg NGT BID [facility] Last Admin: 02/23/18 11:04 Dose: 5 mg Prednisolone Sodium Phosphate (Orapred (15 Mg/5 Ml) Oral Solution -) 30 mg PEG DAILY [facility] Last Admin: 02/23/18 11:05 Dose: 30 mg Ranitidine HCl (Zantac Oral Solution -) 150 mg PEG DAILY [facility] Last Admin: 02/23/18 11:04 Dose: 150 mg Senna (Senna Oral Solution -) 8.8 mg PO HS [facility] Last Admin: 02/22/18 21:19 Dose: 8.8 ml Sertraline HCl (Zoloft -) 25 mg PO DAILY [facility] Last Admin: 02/23/18 11:04 Dose: 25 mg Sucralfate (Carafate Oral Suspension -) 1 gm PEG ACHS [facility] Last Admin: 02/23/18 11:04 Dose: 1 gm Tamsulosin HCl (Flomax -) 0.4 mg PO DAILY@0830 [facility] Last Admin: 02/23/18 08:30 Dose: 0.4 mg - Objective Vital Signs: Vital Signs Temperature 100.1 F H 02/23/18 14:00 Pulse Rate 81 02/23/18 14:00 Respiratory Rate 15 02/23/18 14:48 Blood Pressure 124/59 02/23/18 14:00 O2 Sat by Pulse Oximetry (%) 100 02/22/18 21:00 Constitutional: Yes: No Distress, Calm Cardiovascular: Yes: S1, S2 Respiratory: Yes: Mechanically Ventilated, Other (trach) Gastrointestinal: Yes: Normal Bowel Sounds, Soft, Other (peg in place) Musculoskeletal: Yes: WNL Extremities: Yes: Other Neurological: Yes: Other Labs: CBC, BMP 02/23/18 06:45 02/23/18 06:45 INR, PTT INR 1.13 (0.82-1.09) 02/16/18 22:40 Assessment/Plan Problem List - Problems (1) Anemia Code(s): D64.9 - ANEMIA, UNSPECIFIED (2) Chronic kidney disease, stage 3 Code(s): N18.3 - CHRONIC KIDNEY DISEASE, STAGE 3 (MODERATE) (3) Chronic respiratory failure Code(s): J96.10 - CHRONIC RESPIRATORY FAILURE, UNSP W HYPOXIA OR HYPERCAPNIA Qualifiers: Respiratory failure complication: unspecified whether with hypoxia or hypercapnia Qualified Code(s): J96.10 - Chronic respiratory failure, unspecified whether with hypoxia or hypercapnia (4) PAF (paroxysmal atrial fibrillation) Code(s): I48.0 - PAROXYSMAL ATRIAL FIBRILLATION (5) Renal failure Code(s): N19 - UNSPECIFIED KIDNEY FAILURE Qualifiers: Renal failure chronicity: unspecified chronicity Qualified Code(s): N19 - Unspecified kidney failure (6) Diabetes Code(s): E11.9 - TYPE 2 DIABETES MELLITUS WITHOUT COMPLICATIONS (7) TBI (traumatic brain injury) Code(s): S06.9X9A - UNSP INTRACRANIAL INJURY W LOC OF UNSP DURATION, INIT (8) Zznzr-do-[id number] kidney injury Code(s): N17.9 - ACUTE KIDNEY FAILURE, UNSPECIFIED; N18.9 - CHRONIC KIDNEY DISEASE, UNSPECIFIED (9) Fwvrj-cq-dtnesyn renal failure Code(s): N17.9 - ACUTE KIDNEY FAILURE, UNSPECIFIED; N18.9 - CHRONIC KIDNEY DISEASE, UNSPECIFIED (10) Hypotension Code(s): I95.9 - HYPOTENSION, UNSPECIFIED (11) Hypotension Code(s): I95.9 - HYPOTENSION, UNSPECIFIED I plan continue zosyn will add bactrim daily cx noted and sensitivities noted rest continue current mgmt prognosis remains poor await ct scan report
[2018-02-23] MEDS ORDERED: SULFAMETHOXAZOLE/TMP 200MG-40MG/5ML PO SCH (16:00)
[2018-02-23] MEDS ORDERED: SULFAMETHOXAZOLE/TMP 200MG-40MG/5ML GT SCH (16:00)
--- NOTE | 2018-02-23 18:02 | PN ---
Progress Note (short form) - Note Progress Note: Pt seen and examined family memebrs at bedside. labs/chart reviewed. unable to obtain about ROS Constitutional: Yes: Vented Eyes: Yes: Conjunctiva Clear HENT: Yes: Other (vented) Cardiovascular: Yes: Tachycardia Respiratory: Yes: Other (vent-dependant) Gastrointestinal: Yes: +PEG Last Vital Signs Temp Pulse Resp BP Pulse Ox 98.8 F 70 21 106/57 95 02/19/18 14:50 02/19/18 14:50 02/19/18 16:14 02/19/18 14:50 02/19/18 02:11 CBC, BMP 02/19/18 06:35 02/19/18 06:35 Current Medications Generic Name Dose Route Start Last Admin Trade Name Freq PRN Reason Stop Dose Admin Acetaminophen 650 mg 02/17/18 17:28 Tylenol - PO Q4H PRN FEVER Artificial Tears 2 drop 02/17/18 22:00 02/19/18 09:30 Artificial Tears OU 2 drop BID [facility] Administration Atorvastatin Calcium 10 mg 02/17/18 22:00 02/18/18 23:11 Lipitor - GT 10 mg HS [facility] Administration Bacitracin 1 applic 02/17/18 22:00 02/19/18 06:25 Bacitracin - TP 1 applic TID [facility] Administration Chlorhexidine Gluconate 1 applic 02/17/18 22:00 Hibiclens For Decolonization - TP HS [facility] Collagenase 1 applic 02/19/18 16:00 Santyl - TP DAILY [facility] Docusate Sodium 100 mg 02/18/18 10:00 02/19/18 09:40 Colace - PO Not Given DAILY [facility] Ferrous Sulfate 300 mg 02/18/18 10:00 02/19/18 09:30 Feosol GT 300 mg DAILY [facility] Administration Piperacillin Sod/Tazobactam 50 mls @ 100 mls/hr 02/18/18 02:00 02/19/18 09:29 Sod 2.25 gm/ Dextrose IVPB 100 mls/hr Q8H-IV [facility] Administration Protocol Insulin Aspart 1 vial 02/19/18 08:16 02/19/18 11:44 Novolog Vial Sliding Scale - SQ 6 units ACHS [facility] Administration Protocol Insulin Detemir 15 units 02/19/18 08:15 Levemir Vial SQ HS [facility] Lactobacillus Acidophilus 1 tab 02/18/18 10:00 02/19/18 09:29 Bacid - GT 1 tab DAILY [facility] Administration Levothyroxine Sodium 37.5 mcg 02/18/18 07:00 02/19/18 06:20 Synthroid - PEG 37.5 mcg DAILY@0700 [facility] Administration Methylprednisolone Sodium Succinate 40 mg 02/18/18 10:00 02/19/18 09:29 Solu-Medrol - IVPUSH 40 mg DAILY [facility] Administration Mupirocin 1 applic 02/17/18 22:00 Bactroban Ointment (For Decolonization) - NS 02/22/18 09:59 BID [facility] Oxybutynin Chloride 5 mg 02/17/18 22:00 02/19/18 09:29 Ditropan - NGT 5 mg BID [facility] Administration Pantoprazole Sodium 40 mg 02/18/18 10:00 02/19/18 09:29 Protonix Iv IVPUSH 40 mg DAILY [facility] Administration Sertraline HCl 25 mg 02/17/18 17:27 02/19/18 09:30 Zoloft - PO 25 mg DAILY [facility] Administration Sucralfate 1 gm 02/19/18 11:00 02/19/18 11:54 Carafate Oral Suspension - PEG 1 gm ACHS [facility] Administration Tamsulosin HCl 0.4 mg 02/18/18 08:30 02/19/18 08:46 Flomax - PO 0.4 mg DAILY@0830 [facility] Administration Anemia Mild thrombocytopenia CKD Sarcal ulcer Trach/vent/peg dependant Other Co-morbids frequent pneumonia, emphysema, A-fib, CHF, DM, dementia, renal failure, nonverbal TBI, paraplegia Anemia fobt x2 positive gi f/u for prbcs today Rise in LFTs--monitor, GI f/u. renal f/u.
--- NOTE | 2018-02-23 22:04 | PN ---
Progress Note, Physician History of Present Illness: Vent-dependent patient with trach and PEG, nonverbal, TBI, blind and deaf, had AXR couple days ago with questionable volvulus, then copious BMs and gas. F/U AXR with improved gas pattern, gas and stool in colon including sigmoid. Had CT today showing no obstruction, somewhat gas-distended sigmoid, stool and air in colon and rectum, contrast to mid-colon. Got blood yesterday for anemia. Seen and examined in bed, noted to have dark black/green liquid BM in diaper. Rectal exam deferred for now. - Current Medication List Current Medications: Active Medications Acetaminophen (Tylenol -) 650 mg PO Q4H PRN PRN Reason: FEVER Last Admin: 02/23/18 15:55 Dose: 650 mg Artificial Tears (Artificial Tears) 2 drop OU BID [facility] Last Admin: 02/23/18 11:23 Dose: 2 drop Atorvastatin Calcium (Lipitor -) 10 mg GT HS [facility] Last Admin: 02/22/18 21:17 Dose: 10 mg Bacitracin (Bacitracin -) 1 applic TP TID [facility] Last Admin: 02/23/18 14:11 Dose: 1 applic Collagenase (Santyl -) 1 applic TP DAILY [facility] Last Admin: 02/23/18 14:10 Dose: 1 applic Docusate Sodium (Colace Liquid -) 100 mg PO DAILY PRN PRN Reason: CONSTIPATION Ferrous Sulfate (Feosol) 300 mg GT DAILY [facility] Last Admin: 02/23/18 11:04 Dose: 300 mg Piperacillin Sod/Tazobactam (Sod 2.25 gm/ Dextrose) 50 mls @ 100 mls/hr IVPB Q8H-IV [facility]; Protocol Last Admin: 02/23/18 19:55 Dose: 100 mls/hr Dextrose/Sodium Chloride (D5-1/4ns -) 1,000 mls @ 83 mls/hr IV ASDIR [facility] Last Admin: 02/23/18 14:09 Dose: 83 mls/hr Insulin Aspart (Novolog Vial Sliding Scale -) 1 vial SQ ACHS [facility]; Protocol Last Admin: 02/23/18 16:43 Dose: 6 units Insulin Detemir (Levemir Vial) 20 units SQ HS [facility] Last Admin: 02/22/18 22:23 Dose: 20 units Levothyroxine Sodium (Synthroid -) 37.5 mcg PEG DAILY@0700 [facility] Last Admin: 02/23/18 06:31 Dose: 37.5 mcg Non-Formulary Med ( (Probiotic)) 1 each GT DAILY [facility] Last Admin: 02/23/18 11:05 Dose: 1 each Oxybutynin Chloride (Ditropan -) 5 mg NGT BID [facility] Last Admin: 02/23/18 11:04 Dose: 5 mg Prednisolone Sodium Phosphate (Orapred (15 Mg/5 Ml) Oral Solution -) 30 mg PEG DAILY [facility] Last Admin: 02/23/18 11:05 Dose: 30 mg Ranitidine HCl (Zantac Oral Solution -) 150 mg PEG DAILY [facility] Last Admin: 02/23/18 11:04 Dose: 150 mg Senna (Senna Oral Solution -) 8.8 mg PO HS [facility] Last Admin: 02/22/18 21:19 Dose: 8.8 ml Sertraline HCl (Zoloft -) 25 mg PO DAILY [facility] Last Admin: 02/23/18 11:04 Dose: 25 mg Sucralfate (Carafate Oral Suspension -) 1 gm PEG ACHS [facility] Last Admin: 02/23/18 16:38 Dose: 1 gm Tamsulosin HCl (Flomax -) 0.4 mg PO DAILY@0830 [facility] Last Admin: 02/23/18 08:30 Dose: 0.4 mg Trimethoprim/Sulfamethoxazole (Bactrim Oral Suspension -) 40 mg GT DAILY [facility] - Objective Vital Signs: Vital Signs Temperature 100.1 F H 02/23/18 14:00 Pulse Rate 81 02/23/18 14:00 Respiratory Rate 14 02/23/18 19:16 Blood Pressure 124/59 02/23/18 14:00 O2 Sat by Pulse Oximetry (%) 99 02/23/18 09:00 Constitutional: Yes: Well Nourished, No Distress, Calm Eyes: Yes: Conjunctiva Clear, EOM Intact Respiratory: Yes: Regular, Mechanically Ventilated (via trach) Gastrointestinal: Yes: Soft. No: Distention, Tenderness (?? paraplegic - moves legs when examined, but unclear if discomfort present) ...Rectal Exam: Yes: Deferred (liquid black stool in diaper - nursing to clean up, can check tomorrow) Genitourinary: Yes: Childs Present. No: Hematuria Musculoskeletal: Yes: Joint Stiffness (hands/fingers/elbows) Extremities: No: Cool, Cyanosis Integumentary: No: Jaundice, Rash Neurological: Yes: Pre-Existing Deficit. No: Alert Labs: CBC, BMP 02/23/18 06:45 02/23/18 06:45 Na/Cl still rising BUN/Cr plateaued H/H up a bit after PRBCs yesterday - ....Imaging Cat Scan: Report Reviewed, Image Reviewed (images personally reviewed, stool and gas in colon, contrast to mid-colon, no obstruction, redundant sigmoid with some gaseous distention but no evidence of volvulus) Problem List - Problems (1) Constipation Assessment/Plan: No evidence of volvulus at this time. Sigmoid appears redundant, but air and stool throughout colon without obstruction. Liquid, dark BM in diaper now, nurses to clean up. GIOVANNA deferred for now. No indication for acute intervention at this time. Thank you for the opportunity to participate in the care of this patient. Code(s): K59.00 - CONSTIPATION, UNSPECIFIED Qualifiers: Constipation type: unspecified constipation type Qualified Code(s): K59.00 - Constipation, unspecified (2) Qxvey-ef-txolkxh renal failure Assessment/Plan: rising Na/Cl and stable, slt decreased BUN/Cr may be dehydrated would maintain IV hydration while TF held for now and ensure adequate fluids when resumed Code(s): N17.9 - ACUTE KIDNEY FAILURE, UNSPECIFIED; N18.9 - CHRONIC KIDNEY DISEASE, UNSPECIFIED Qualifiers: Acute renal failure type: unspecified Chronic kidney disease stage: stage 3 (moderate) Qualified Code(s): N17.9 - Acute kidney failure, unspecified; N18.3 - Chronic kidney disease, stage 3 (moderate) (3) Anemia Assessment/Plan: s/p 1 unit PRBC yesterday Code(s): D64.9 - ANEMIA, UNSPECIFIED Qualifiers: Anemia type: due to chronic kidney disease Chronic kidney disease stage: unspecified stage Qualified Code(s): N18.9 - Chronic kidney disease, unspecified; D63.1 - Anemia in chronic kidney disease (4) Chronic respiratory failure Assessment/Plan: vented via trach Code(s): J96.10 - CHRONIC RESPIRATORY FAILURE, UNSP W HYPOXIA OR HYPERCAPNIA Qualifiers: Respiratory failure complication: unspecified whether with hypoxia or hypercapnia Qualified Code(s): J96.10 - Chronic respiratory failure, unspecified whether with hypoxia or hypercapnia (5) Childs catheter in place Assessment/Plan: no hematuria, making light yellow urine Code(s): Z92.89 - PERSONAL HISTORY OF OTHER MEDICAL TREATMENT (6) S/P percutaneous endoscopic gastrostomy (PEG) tube placement Assessment/Plan: PEG in place Code(s): Z93.1 - GASTROSTOMY STATUS (7) Tracheostomy dependent Code(s): Z93.0 - TRACHEOSTOMY STATUS (8) CHF (congestive heart failure) Code(s): I50.9 - HEART FAILURE, UNSPECIFIED Qualifiers: Heart failure type: diastolic Heart failure chronicity: chronic Qualified Code(s): I50.32 - Chronic diastolic (congestive) heart failure (9) Diabetes Assessment/Plan: glucose has been high Code(s): E11.9 - TYPE 2 DIABETES MELLITUS WITHOUT COMPLICATIONS Qualifiers: Diabetes mellitus type: type 2 Diabetes mellitus [place]aster[place] insulin use: unspecified [facility] insulin use status Diabetes mellitus complication status : with kidney complications Diabetes mellitus complication detail: with chronic kidney disease Chronic kidney disease stage: stage 3 (moderate) Qualified Code(s): E11.22 - Type 2 diabetes mellitus with diabetic chronic kidney disease; N18.3 - Chronic kidney disease, stage 3 (moderate) (10) TBI (traumatic brain injury) Code(s): S06.9X9A - UNSP INTRACRANIAL INJURY W LOC OF UNSP DURATION, INIT Qualifiers: Encounter type: sequela Loss of consciousness presence/duration: with LOC of unspecified duration Qualified Code(s): S06.9X9S - Unspecified intracranial injury with loss of consciousness of unspecified duration, sequela (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
[2018-02-23] MEDS: INSULIN (LEVEMIR) 100 UNITS/ML UNITS SQ SCH (22:26)
[2018-02-23] MEDS: ATORVASTATIN CA 10 MG TABLET (FP) GT SCH (22:27)
[2018-02-23] MEDS: SENNOSIDES 8.8 MG/5 ML BULK BOTTLE PO SCH (22:28)
[2018-02-24] MEDS ORDERED: PIPERACILLIN/TAZOBACTAM 2.25 GM VIAL IVPB ONE ×3 (01:33→17:46)
[2018-02-24] MEDS ORDERED: DEXTROSE 5%-WATER - 50 ML IVPB ONE ×3 (01:33→17:46)
[2018-02-24] MEDS: PIPERACILLIN/TAZOB 2.25 GM 2.25 GM in DEXTROSE 5%-WATER - 50 ML IVPB SCH ×3 (02:05→17:47)
[2018-02-24 06:58] LABS: BASO % 0.3 % (0-2.0); HEMATOCRIT 20.3 % (35.4-49); LYMPH % 18.7 % (8-40); MCH 29.9 pg (25.7-33.7); MCHC 33.8 g/dl (32.0-35.9); MEAN CELL VOLUME 88.5 fl (80-96); MEAN PLT VOLUME 10.7 fl (7.5-11.1); MONO % 7.5 % (3.8-10.2); NEUT % 73.5 % (42.8-82.8); PLATELET COUNT 151 K/MM3 (134-434); RBC 2.29 M/mm3 (4.00-5.60); RDW 17.6 % (11.9-15.9); WHITE BLOOD COUNT 11.3 K/mm3 (4.0-10.0)
[2018-02-24] MEDS: BACITRACIN 15 GM TUBE TOPICAL OINTMENT TP SCH ×3 (06:59→21:25)
[2018-02-24] MEDS: LEVOTHYROXINE NA 25 MCG TABLET (FP) PEG SCH (07:00)
[2018-02-24] MEDS: INSULIN SLIDING SCALE (NOVOLOG) 1 VIAL SQ SCH ×4 (07:00→21:43)
[2018-02-24] MEDS: SUCRALFATE 1 GM/10 ML UNIT DOSE CUPS PEG SCH ×3 (07:00→18:08)
[2018-02-24] MEDS: DEXTROSE 5%-0.2% SALINE - 1,000 ML IV SCH (07:05)
[2018-02-24] MEDS ORDERED: INSULIN (LEVEMIR) 100 UNITS/ML UNITS SQ ONE (07:13)
[2018-02-24] MEDS ORDERED: INSULIN (NOVOLOG) ASPART 100 UNITS/ML 10ML VIAL ONE ×2 (07:13→17:46)
[2018-02-24 07:21] LABS: HEMOGLOBIN 6.9 GM/dL (11.7-16.9)
[2018-02-24 07:29] LABS: ANION GAP 11 (8-16); CHLORIDE 113 mmol/L (98-107); CO2 25 mmol/L (21-32); CREATININE 2.7 mg/dL (0.7-1.3); GLUCOSE,RANDOM 261 mg/dL (74-106); POTASSIUM 3.4 mmol/L (3.5-5.1); SGOT/AST 22 U/L (15-37); SGPT/ALT 66 U/L (12-78); SODIUM 149 mmol/L (136-145)
[2018-02-24 07:31] LABS: ALK PHOS 46 U/L (45-117); BILIRUBIN,TOTAL 0.4 mg/dL (0.2-1.0); TOT PROT 5.3 g/dl (6.4-8.2)
[2018-02-24] MEDS: TAMSULOSIN HCL 0.4 MG CAP.ER.24H (FP) PO SCH (08:30)
[2018-02-24 09:41] LABS: BLOOD UREA NITROGEN 197 mg/dL (7-18)
[2018-02-24] MEDS ORDERED: PT OWN MED DRAWER 7, Y5N ONE ×2 (10:47→11:24)
[2018-02-24] MEDS: RANITIDINE HCL 150 MG/10 ML UNIT-DOSE PEG SCH (11:14)
[2018-02-24] MEDS: SERTRALINE HCL 25 MG TABLET (FP) PO SCH (11:14)
[2018-02-24] MEDS: OXYBUTYNIN CHLORIDE 5 MG TABLET NGT SCH ×2 (11:14→21:26)
[2018-02-24] MEDS: FERROUS SO4 300 MG/5 ML ORAL SOLN UNIT DOSE CUPS GT SCH (11:14)
[2018-02-24] MEDS: ARTIFICIAL TEARS (POLYVINYL ALCOHOL 1.4%) OPTH DROPS OU SCH ×2 (11:15→21:41)
[2018-02-24] MEDS: COLLAGENASE CLOSTRIDIUM HIST. 30 GRAMS TUBE TP SCH (11:16)
[2018-02-24] MEDS: prednisoLONE SODIUM PHOSPHATE 15 MG/5 ML ORAL SOLN BOTTLE PEG SCH (11:16)
[2018-02-24] MEDS: PROBIOTIC GT SCH (11:16)
--- NOTE | 2018-02-24 11:36 | PN ---
Progress Note, Physician History of Present Illness: 87M w/ pmh of traumatic fall (s/p neck (C4,5, and 6)/back surgery, tracheotomy placement now ventilator dependent, and PEG tube placement), frequent pneumonia , emphysema, A-fib, CHF, DM, dementia, renal failure, nonverbal TBI, paraplegia , and legal blindness and deafness, who presents to the emergency department via EMS from [facility] with 3 days of hypotension. As per patients son , his blood pressure has been decreasing over the past few days. He reports that at baseline, his systolic is between 110-119 in the mornings and between 100-109 at night. Pt has failed 5 weaning trials in the last few days, and it was noticed that there was blood around the tracheostomy site when suctioning. Pt' son denies recent fevers, chills, chest pain, emesis, hematemesis, melena, and hematochezia in pt. - Current Medication List Current Medications: Active Medications Acetaminophen (Tylenol -) 650 mg PO Q4H PRN PRN Reason: FEVER Last Admin: 02/23/18 15:55 Dose: 650 mg Artificial Tears (Artificial Tears) 2 drop OU BID [facility] Last Admin: 02/24/18 11:15 Dose: 2 drop Atorvastatin Calcium (Lipitor -) 10 mg GT HS [facility] Last Admin: 02/23/18 22:27 Dose: 10 mg Bacitracin (Bacitracin -) 1 applic TP TID [facility] Last Admin: 02/24/18 06:59 Dose: 1 applic Collagenase (Santyl -) 1 applic TP DAILY [facility] Last Admin: 02/24/18 11:16 Dose: 1 applic Docusate Sodium (Colace Liquid -) 100 mg PO DAILY PRN PRN Reason: CONSTIPATION Ferrous Sulfate (Feosol) 300 mg GT DAILY [facility] Last Admin: 02/24/18 11:14 Dose: 300 mg Piperacillin Sod/Tazobactam (Sod 2.25 gm/ Dextrose) 50 mls @ 100 mls/hr IVPB Q8H-IV [facility]; Protocol Last Admin: 02/24/18 11:17 Dose: 100 mls/hr Dextrose/Sodium Chloride (D5-1/4ns -) 1,000 mls @ 83 mls/hr IV ASDIR [facility] Last Admin: 02/24/18 07:05 Dose: 83 mls/hr Insulin Aspart (Novolog Vial Sliding Scale -) 1 vial SQ [facility]; Protocol Last Admin: 02/24/18 07:00 Dose: 8 units Insulin Detemir (Levemir Vial) 20 units SQ [facility] Last Admin: 02/23/18 22:26 Dose: 20 units Levothyroxine Sodium (Synthroid -) 37.5 mcg PEG DAILY@0700 [facility] Last Admin: 02/24/18 07:00 Dose: 37.5 mcg Non-Formulary Med ( (Probiotic)) 1 each GT DAILY [facility] Last Admin: 02/24/18 11:16 Dose: 1 each Oxybutynin Chloride (Ditropan -) 5 mg NGT BID [facility] Last Admin: 02/24/18 11:14 Dose: 5 mg Prednisolone Sodium Phosphate (Orapred (15 Mg/5 Ml) Oral Solution -) 30 mg PEG DAILY [facility] Last Admin: 02/24/18 11:16 Dose: 30 mg Ranitidine HCl (Zantac Oral Solution -) 150 mg PEG DAILY [facility] Last Admin: 02/24/18 11:14 Dose: 150 mg Senna (Senna Oral Solution -) 8.8 mg PO [facility] Last Admin: 02/23/18 22:28 Dose: 8.8 ml Sertraline HCl (Zoloft -) 25 mg PO DAILY [facility] Last Admin: 02/24/18 11:14 Dose: 25 mg Sucralfate (Carafate Oral Suspension -) 1 gm PEG [facility] Last Admin: 02/24/18 11:14 Dose: 1 gm Tamsulosin HCl (Flomax -) 0.4 mg PO DAILY@0830 [facility] Last Admin: 02/24/18 08:30 Dose: 0.4 mg Trimethoprim/Sulfamethoxazole (Bactrim Oral Suspension -) 40 mg GT DAILY [facility] Last Admin: 02/24/18 11:15 Dose: 40 mg - Objective Vital Signs: Vital Signs Temperature 98.5 F 02/24/18 06:00 Pulse Rate 72 02/24/18 06:00 Respiratory Rate 14 02/24/18 06:25 Blood Pressure 137/65 02/24/18 06:00 O2 Sat by Pulse Oximetry (%) 99 02/23/18 09:00 Eyes: Yes: WNL, Conjunctiva Clear, EOM Intact HENT: Yes: WNL, Atraumatic, Normocephalic Neck: Yes: WNL, Supple, Trachea Midline Cardiovascular: Yes: WNL, Regular Rate and Rhythm Respiratory: Yes: Mechanically Ventilated Gastrointestinal: Yes: WNL, Normal Bowel Sounds Genitourinary: Yes: WNL Musculoskeletal: Yes: WNL Extremities: Yes: WNL Edema: No Integumentary: Yes: WNL Neurological: Yes: WNL, Alert, Oriented ...Motor Strength: WNL Psychiatric: Yes: WNL Labs: CBC, BMP 02/24/18 05:50 02/24/18 05:50 INR, PTT INR 1.13 (0.82-1.09) 02/16/18 22:40 Assessment/Plan - Problems (1) Anemia Assessment/Plan: s/p 4 U PRBCs; Hb improved from 5.7 to 7.9; now 7.1 Maintain hydration. F/u Hb serially; stool quaiac. Code(s): D64.9 - ANEMIA, UNSPECIFIED Qualifiers: Anemia type: due to chronic kidney disease Chronic kidney disease stage: unspecified stage Qualified Code(s): N18.9 - Chronic kidney disease, unspecified; D63.1 - Anemia in chronic kidney disease (2) Chronic kidney disease, stage 3 Code(s): N18.3 - CHRONIC KIDNEY DISEASE, STAGE 3 (MODERATE) (3) Chronic respiratory failure Assessment/Plan: Ventilator dependent; on trach. Code(s): J96.10 - CHRONIC RESPIRATORY FAILURE, UNSP W HYPOXIA OR HYPERCAPNIA Qualifiers: Respiratory failure complication: unspecified whether with hypoxia or hypercapnia Qualified Code(s): J96.10 - Chronic respiratory failure, unspecified whether with hypoxia or hypercapnia (4) Hematuria Code(s): R31.9 - HEMATURIA, UNSPECIFIED (5) Hypotension Code(s): I95.9 - HYPOTENSION, UNSPECIFIED (6) PAF (paroxysmal atrial fibrillation) Assessment/Plan: EKG 02/23/18: AF with RVR (HR 150 bpm); now has HR in 80s bpm. Pt has been of AV conduction blockers due to periods of marked bradycardia. F/u EKG repeat. May consider small doses of metoprolol or diltiazem if high HR recurs (would require telemetry then). TSH 3.59 recently. Code(s): I48.0 - PAROXYSMAL ATRIAL FIBRILLATION (7) S/P percutaneous endoscopic gastrostomy (PEG) tube placement Code(s): Z93.1 - GASTROSTOMY STATUS (8) Tracheostomy dependent Code(s): Z93.0 - TRACHEOSTOMY STATUS (9) Acute on chronic diastolic CHF (congestive heart failure) Code(s): I50.33 - ACUTE ON CHRONIC DIASTOLIC (CONGESTIVE) HEART FAILURE (10) Sinus bradycardia Code(s): R00.1 - BRADYCARDIA, UNSPECIFIED (11) TBI (traumatic brain injury) Code(s): S06.9X9A - UNSP INTRACRANIAL INJURY W LOC OF UNSP DURATION, INIT Qualifiers: Encounter type: sequela Loss of consciousness presence/duration: with LOC of unspecified duration Qualified Code(s): S06.9X9S - Unspecified intracranial injury with loss of consciousness of unspecified duration, sequela (12) Severe mitral regurgitation Code(s): I34.0 - NONRHEUMATIC MITRAL (VALVE) INSUFFICIENCY
--- NOTE | 2018-02-24 12:25 | EKG ---
Test Reason : Blood Pressure : / mmHG Vent. Rate : 072 BPM Atrial Rate : 070 BPM P-R Int : 000 ms QRS Dur : 070 ms QT Int : 398 ms P-R-T Axes : 000 042 050 degrees QTc Int : 435 ms UNDETERMINED RHYTHM LOW VOLTAGE QRS CANNOT RULE OUT ANTEROSEPTAL INFARCT , AGE UNDETERMINED ABNORMAL ECG WHEN COMPARED WITH ECG OF 23-FEB-2018 05:55, CURRENT UNDETERMINED RHYTHM PRECLUDES RHYTHM COMPARISON, NEEDS REVIEW NONSPECIFIC T WAVE ABNORMALITY NO LONGER EVIDENT IN INFERIOR LEADS NONSPECIFIC T WAVE ABNORMALITY NO LONGER EVIDENT IN LATERAL LEADS Confirmed by NOA LEON MD ([id number]) on 02/24/2018 12:24:58 PM Referred By: Elissa SHOEMAKER Confirmed By:NOA LEON MD
--- NOTE | 2018-02-24 12:27 | PN ---
Progress Note, Physician Chief Complaint: The patient seen in his room. Remains vent supported. The abdomen remains distended. Had CT scan of the abdomen. report noted. For PEG tube lavage. The patient continues to be profoundly anemic....blood loss??? from where. IV fluids well tolerated. 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 Maintains good urine output. GI w/u in progress. PEG tube still not to be used. - Current Medication List Current Medications: Active Medications Acetaminophen (Tylenol -) 650 mg PO Q4H PRN PRN Reason: FEVER Last Admin: 02/23/18 15:55 Dose: 650 mg Artificial Tears (Artificial Tears) 2 drop OU BID [facility] Last Admin: 02/24/18 11:15 Dose: 2 drop Atorvastatin Calcium (Lipitor -) 10 mg GT HS [facility] Last Admin: 02/23/18 22:27 Dose: 10 mg Bacitracin (Bacitracin -) 1 applic TP TID [facility] Last Admin: 02/24/18 06:59 Dose: 1 applic Collagenase (Santyl -) 1 applic TP DAILY [facility] Last Admin: 02/24/18 11:16 Dose: 1 applic Docusate Sodium (Colace Liquid -) 100 mg PO DAILY PRN PRN Reason: CONSTIPATION Ferrous Sulfate (Feosol) 300 mg GT DAILY [facility] Last Admin: 02/24/18 11:14 Dose: 300 mg Piperacillin Sod/Tazobactam (Sod 2.25 gm/ Dextrose) 50 mls @ 100 mls/hr IVPB Q8H-IV [facility]; Protocol Last Admin: 02/24/18 11:17 Dose: 100 mls/hr Dextrose/Sodium Chloride (D5-1/4ns -) 1,000 mls @ 83 mls/hr IV ASDIR [facility] Last Admin: 02/24/18 07:05 Dose: 83 mls/hr Insulin Aspart (Novolog Vial Sliding Scale -) 1 vial SQ [facility]; Protocol Last Admin: 02/24/18 11:44 Dose: 2 units Insulin Detemir (Levemir Vial) 20 units SQ HS [facility] Last Admin: 02/23/18 22:26 Dose: 20 units Levothyroxine Sodium (Synthroid -) 37.5 mcg PEG DAILY@0700 [facility] Last Admin: 02/24/18 07:00 Dose: 37.5 mcg Non-Formulary Med ( (Probiotic)) 1 each GT DAILY [facility] Last Admin: 02/24/18 11:16 Dose: 1 each Oxybutynin Chloride (Ditropan -) 5 mg NGT BID [facility] Last Admin: 02/24/18 11:14 Dose: 5 mg Prednisolone Sodium Phosphate (Orapred (15 Mg/5 Ml) Oral Solution -) 30 mg PEG DAILY [facility] Last Admin: 02/24/18 11:16 Dose: 30 mg Ranitidine HCl (Zantac Oral Solution -) 150 mg PEG DAILY [facility] Last Admin: 02/24/18 11:14 Dose: 150 mg Senna (Senna Oral Solution -) 8.8 mg PO HS [facility] Last Admin: 02/23/18 22:28 Dose: 8.8 ml Sertraline HCl (Zoloft -) 25 mg PO DAILY [facility] Last Admin: 02/24/18 11:14 Dose: 25 mg Sucralfate (Carafate Oral Suspension -) 1 gm PEG ACHS [facility] Last Admin: 02/24/18 11:14 Dose: 1 gm Tamsulosin HCl (Flomax -) 0.4 mg PO DAILY@0830 [facility] Last Admin: 02/24/18 08:30 Dose: 0.4 mg Trimethoprim/Sulfamethoxazole (Bactrim Oral Suspension -) 40 mg GT DAILY [facility] Last Admin: 02/24/18 11:15 Dose: 40 mg - Objective Vital Signs: Vital Signs Temperature 98.5 F 02/24/18 06:00 Pulse Rate 72 02/24/18 06:00 Respiratory Rate 14 02/24/18 06:25 Blood Pressure 137/65 02/24/18 06:00 O2 Sat by Pulse Oximetry (%) 99 02/23/18 09:00 HENT: Yes: Normocephalic Neck: Yes: Trachea Midline Cardiovascular: Yes: Tachycardia, S1, S2 Respiratory: Yes: Mechanically Ventilated, Rhonchi Gastrointestinal: Yes: Normal Bowel Sounds, Soft, Other (PEG tube in place.) Genitourinary: Yes: Childs Present. No: Bladder Distention, CVA Tenderness - Left, CVA Tenderness - Right Edema: No Neurological: Yes: Unresponsive Labs: CBC, BMP 02/24/18 05:50 02/24/18 05:50 INR, PTT INR 1.13 (0.82-1.09) 02/16/18 22:40 Problem List - Problems (1) Acute renal failure Code(s): N17.9 - ACUTE KIDNEY FAILURE, UNSPECIFIED (2) Chronic kidney disease, stage 3 Code(s): N18.3 - CHRONIC KIDNEY DISEASE, STAGE 3 (MODERATE) (3) Anemia Code(s): D64.9 - ANEMIA, UNSPECIFIED Qualifiers: Anemia type: due to chronic kidney disease Chronic kidney disease stage: unspecified stage Qualified Code(s): N18.9 - Chronic kidney disease, unspecified; D63.1 - Anemia in chronic kidney disease (4) Chronic respiratory failure Code(s): J96.10 - CHRONIC RESPIRATORY FAILURE, UNSP W HYPOXIA OR HYPERCAPNIA Qualifiers: Respiratory failure complication: unspecified whether with hypoxia or hypercapnia Qualified Code(s): J96.10 - Chronic respiratory failure, unspecified whether with hypoxia or hypercapnia (5) PAF (paroxysmal atrial fibrillation) Code(s): I48.0 - PAROXYSMAL ATRIAL FIBRILLATION (6) A-fib Code(s): I48.91 - UNSPECIFIED ATRIAL FIBRILLATION (7) 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 The patient continues to have profound anemia, but no over bleeding noted. Acute renal failure superimposed on CKD. The acute renal dysfunction due to sepsis, altered renal hydrodynamics with resultant real hypoperfusion. TBUN marginally better. IV fluids well tolerated. Hypernatremia, due to free water loss. Will continue the IV fluids. But will modify to include KCl supplements. Profound anemia...? etiology. To continue transfusions. Suggest: IV fluids as modified in view of the Hypernatremia and Hypokalemia. Azotemia is significantly Steroid dependent. PRBC transfusion. Will give hydration through the G tube once it is usable. Will monitor the renal functions with you. Thank you. Margarita Caban MD
[2018-02-24] MEDS ORDERED: D5-1/4NS+20 MEQ KCL - 20 MEQ/1,000 ML INFUS.BAG IV SCH (12:45)
--- NOTE | 2018-02-24 13:43 | PN ---
Progress Note, Physician History of Present Illness: no new issues family in room continues to be on the vent and trach - Current Medication List Current Medications: Active Medications Acetaminophen (Tylenol -) 650 mg PO Q4H PRN PRN Reason: FEVER Last Admin: 02/23/18 15:55 Dose: 650 mg Artificial Tears (Artificial Tears) 2 drop OU BID [facility] Last Admin: 02/24/18 11:15 Dose: 2 drop Atorvastatin Calcium (Lipitor -) 10 mg GT HS [facility] Last Admin: 02/23/18 22:27 Dose: 10 mg Bacitracin (Bacitracin -) 1 applic TP TID [facility] Last Admin: 02/24/18 06:59 Dose: 1 applic Collagenase (Santyl -) 1 applic TP DAILY [facility] Last Admin: 02/24/18 11:16 Dose: 1 applic Docusate Sodium (Colace Liquid -) 100 mg PO DAILY PRN PRN Reason: CONSTIPATION Ferrous Sulfate (Feosol) 300 mg GT DAILY [facility] Last Admin: 02/24/18 11:14 Dose: 300 mg Piperacillin Sod/Tazobactam (Sod 2.25 gm/ Dextrose) 50 mls @ 100 mls/hr IVPB Q8H-IV [facility]; Protocol Last Admin: 02/24/18 11:17 Dose: 100 mls/hr Dextrose/Sodium Chloride (D5-1/4ns+20 Meq Kcl -) 20 meq in 1,000 mls @ 75 mls/ hr IV ASD[facility] Insulin Aspart (Novolog Vial Sliding Scale -) 1 vial SQ [facility]; Protocol Last Admin: 02/24/18 11:44 Dose: 2 units Insulin Detemir (Levemir Vial) 20 units SQ HS [facility] Last Admin: 02/23/18 22:26 Dose: 20 units Levothyroxine Sodium (Synthroid -) 37.5 mcg PEG DAILY@0700 [facility] Last Admin: 02/24/18 07:00 Dose: 37.5 mcg Non-Formulary Med ( (Probiotic)) 1 each GT DAILY [facility] Last Admin: 02/24/18 11:16 Dose: 1 each Oxybutynin Chloride (Ditropan -) 5 mg NGT BID [facility] Last Admin: 02/24/18 11:14 Dose: 5 mg Prednisolone Sodium Phosphate (Orapred (15 Mg/5 Ml) Oral Solution -) 30 mg PEG DAILY [facility] Last Admin: 02/24/18 11:16 Dose: 30 mg Ranitidine HCl (Zantac Oral Solution -) 150 mg PEG DAILY [facility] Last Admin: 02/24/18 11:14 Dose: 150 mg Senna (Senna Oral Solution -) 8.8 mg PO HS [facility] Last Admin: 02/23/18 22:28 Dose: 8.8 ml Sertraline HCl (Zoloft -) 25 mg PO DAILY [facility] Last Admin: 02/24/18 11:14 Dose: 25 mg Sucralfate (Carafate Oral Suspension -) 1 gm PEG ACHS [facility] Last Admin: 02/24/18 11:14 Dose: 1 gm Tamsulosin HCl (Flomax -) 0.4 mg PO DAILY@0830 [facility] Last Admin: 02/24/18 08:30 Dose: 0.4 mg Trimethoprim/Sulfamethoxazole (Bactrim Oral Suspension -) 40 mg GT DAILY [facility] Last Admin: 02/24/18 11:15 Dose: 40 mg - Objective Vital Signs: Vital Signs Temperature 98.0 F 02/24/18 10:00 Pulse Rate 78 02/24/18 10:00 Respiratory Rate 14 02/24/18 10:40 Blood Pressure 132/60 02/24/18 10:00 O2 Sat by Pulse Oximetry (%) 99 02/23/18 09:00 Constitutional: Yes: Other Cardiovascular: Yes: Pulse Irregular Respiratory: Yes: Mechanically Ventilated, Other (trach) Gastrointestinal: Yes: Normal Bowel Sounds, Soft, Other (peg tube in place) Musculoskeletal: Yes: WNL Edema: LLE: Trace, RLE: Trace Labs: CBC, BMP 02/24/18 05:50 02/24/18 05:50 INR, PTT INR 1.13 (0.82-1.09) 02/16/18 22:40 Assessment/Plan Problem List - Problems (1) Anemia Code(s): D64.9 - ANEMIA, UNSPECIFIED (2) Chronic kidney disease, stage 3 Code(s): N18.3 - CHRONIC KIDNEY DISEASE, STAGE 3 (MODERATE) (3) Chronic respiratory failure Code(s): J96.10 - CHRONIC RESPIRATORY FAILURE, UNSP W HYPOXIA OR HYPERCAPNIA Qualifiers: Respiratory failure complication: unspecified whether with hypoxia or hypercapnia Qualified Code(s): J96.10 - Chronic respiratory failure, unspecified whether with hypoxia or hypercapnia (4) PAF (paroxysmal atrial fibrillation) Code(s): I48.0 - PAROXYSMAL ATRIAL FIBRILLATION (5) Renal failure Code(s): N19 - UNSPECIFIED KIDNEY FAILURE Qualifiers: Renal failure chronicity: unspecified chronicity Qualified Code(s): N19 - Unspecified kidney failure (6) Diabetes Code(s): E11.9 - TYPE 2 DIABETES MELLITUS WITHOUT COMPLICATIONS (7) TBI (traumatic brain injury) Code(s): S06.9X9A - UNSP INTRACRANIAL INJURY W LOC OF UNSP DURATION, INIT (8) [id number] kidney injury Code(s): N17.9 - ACUTE KIDNEY FAILURE, UNSPECIFIED; N18.9 - CHRONIC KIDNEY DISEASE, UNSPECIFIED (9) Nkruq-ur-fnsedih renal failure Code(s): N17.9 - ACUTE KIDNEY FAILURE, UNSPECIFIED; N18.9 - CHRONIC KIDNEY DISEASE, UNSPECIFIED (10) Hypotension Code(s): I95.9 - HYPOTENSION, UNSPECIFIED (11) Hypotension Code(s): I95.9 - HYPOTENSION, UNSPECIFIED I plan continue zosyn will add bactrim daily cx noted and sensitivities noted rest continue current mgmt prognosis remains poor discussed in great detail with the daughter
--- NOTE | 2018-02-24 14:05 | PN ---
Progress Note, Physician - Current Medication List Current Medications: Active Medications Acetaminophen (Tylenol -) 650 mg PO Q4H PRN PRN Reason: FEVER Last Admin: 02/23/18 15:55 Dose: 650 mg Artificial Tears (Artificial Tears) 2 drop OU BID [facility] Last Admin: 02/24/18 11:15 Dose: 2 drop Atorvastatin Calcium (Lipitor -) 10 mg GT HS [facility] Last Admin: 02/23/18 22:27 Dose: 10 mg Bacitracin (Bacitracin -) 1 applic TP TID [facility] Last Admin: 02/24/18 06:59 Dose: 1 applic Collagenase (Santyl -) 1 applic TP DAILY [facility] Last Admin: 02/24/18 11:16 Dose: 1 applic Docusate Sodium (Colace Liquid -) 100 mg PO DAILY PRN PRN Reason: CONSTIPATION Ferrous Sulfate (Feosol) 300 mg GT DAILY [facility] Last Admin: 02/24/18 11:14 Dose: 300 mg Piperacillin Sod/Tazobactam (Sod 2.25 gm/ Dextrose) 50 mls @ 100 mls/hr IVPB Q8H-IV [facility]; Protocol Last Admin: 02/24/18 11:17 Dose: 100 mls/hr Dextrose/Sodium Chloride (D5-1/4ns+20 Meq Kcl -) 20 meq in 1,000 mls @ 75 mls/ hr IV ASDIR [facility] Insulin Aspart (Novolog Vial Sliding Scale -) 1 vial SQ [facility]; Protocol Last Admin: 02/24/18 11:44 Dose: 2 units Insulin Detemir (Levemir Vial) 20 units SQ [facility] Last Admin: 02/23/18 22:26 Dose: 20 units Levothyroxine Sodium (Synthroid -) 37.5 mcg PEG DAILY@0700 [facility] Last Admin: 02/24/18 07:00 Dose: 37.5 mcg Non-Formulary Med ( (Probiotic)) 1 each GT DAILY [facility] Last Admin: 02/24/18 11:16 Dose: 1 each Oxybutynin Chloride (Ditropan -) 5 mg NGT BID [facility] Last Admin: 02/24/18 11:14 Dose: 5 mg Prednisolone Sodium Phosphate (Orapred (15 Mg/5 Ml) Oral Solution -) 30 mg PEG DAILY [facility] Last Admin: 02/24/18 11:16 Dose: 30 mg Ranitidine HCl (Zantac Oral Solution -) 150 mg PEG DAILY [facility] Last Admin: 02/24/18 11:14 Dose: 150 mg Senna (Senna Oral Solution -) 8.8 mg PO HS [facility] Last Admin: 02/23/18 22:28 Dose: 8.8 ml Sertraline HCl (Zoloft -) 25 mg PO DAILY [facility] Last Admin: 02/24/18 11:14 Dose: 25 mg Sucralfate (Carafate Oral Suspension -) 1 gm PEG ACHS [facility] Last Admin: 02/24/18 11:14 Dose: 1 gm Tamsulosin HCl (Flomax -) 0.4 mg PO DAILY@0830 [facility] Last Admin: 02/24/18 08:30 Dose: 0.4 mg Trimethoprim/Sulfamethoxazole (Bactrim Oral Suspension -) 40 mg GT DAILY [facility] Last Admin: 02/24/18 11:15 Dose: 40 mg - Objective Vital Signs: Vital Signs Temperature 98.0 F 02/24/18 10:00 Pulse Rate 78 02/24/18 10:00 Respiratory Rate 14 02/24/18 10:40 Blood Pressure 132/60 02/24/18 10:00 O2 Sat by Pulse Oximetry (%) 99 02/23/18 09:00 Labs: CBC, BMP 02/24/18 05:50 02/24/18 05:50 INR, PTT INR 1.13 (0.82-1.09) 02/16/18 22:40 Problem List - Problems (1) Anemia Code(s): D64.9 - ANEMIA, UNSPECIFIED (2) Chronic kidney disease, stage 3 Code(s): N18.3 - CHRONIC KIDNEY DISEASE, STAGE 3 (MODERATE) (3) Chronic respiratory failure Code(s): J96.10 - CHRONIC RESPIRATORY FAILURE, UNSP W HYPOXIA OR HYPERCAPNIA Qualifiers: Respiratory failure complication: unspecified whether with hypoxia or hypercapnia Qualified Code(s): J96.10 - Chronic respiratory failure, unspecified whether with hypoxia or hypercapnia (4) PAF (paroxysmal atrial fibrillation) Code(s): I48.0 - PAROXYSMAL ATRIAL FIBRILLATION (5) Renal failure Code(s): N19 - UNSPECIFIED KIDNEY FAILURE Qualifiers: Renal failure chronicity: unspecified chronicity Qualified Code(s): N19 - Unspecified kidney failure (6) Diabetes Code(s): E11.9 - TYPE 2 DIABETES MELLITUS WITHOUT COMPLICATIONS Qualifiers: Diabetes mellitus type: type 2 Diabetes mellitus skilled nursing insulin use: unspecified skilled nursing insulin use status Diabetes mellitus complication status : with kidney complications Diabetes mellitus complication detail: with chronic kidney disease Chronic kidney disease stage: stage 3 (moderate) Qualified Code(s): E11.22 - Type 2 diabetes mellitus with diabetic chronic kidney disease; N18.3 - Chronic kidney disease, stage 3 (moderate) (7) TBI (traumatic brain injury) Code(s): S06.9X9A - UNSP INTRACRANIAL INJURY W LOC OF UNSP DURATION, INIT Qualifiers: Encounter type: sequela Loss of consciousness presence/duration: with LOC of unspecified duration Qualified Code(s): S06.9X9S - Unspecified intracranial injury with loss of consciousness of unspecified duration, sequela (8) Yuosc-fd-xsgjgvk kidney injury Code(s): N17.9 - ACUTE KIDNEY FAILURE, UNSPECIFIED; N18.9 - CHRONIC KIDNEY DISEASE, UNSPECIFIED (9) Dwdfr-rr-vcfebgn renal failure Code(s): N17.9 - ACUTE KIDNEY FAILURE, UNSPECIFIED; N18.9 - CHRONIC KIDNEY DISEASE, UNSPECIFIED Qualifiers: Acute renal failure type: unspecified Chronic kidney disease stage: stage 3 (moderate) Qualified Code(s): N17.9 - Acute kidney failure, unspecified; N18.3 - Chronic kidney disease, stage 3 (moderate) (10) Hypotension Code(s): I95.9 - HYPOTENSION, UNSPECIFIED (11) Hypotension Code(s): I95.9 - HYPOTENSION, UNSPECIFIED Assessment/Plan IMP CHRONIC RESPIRATORY FAILURE VENT DEPENDENT TBI S/P FALL QUADRAPLEGIA SECONDARY TO C4.5,6 FX SEVERE ANEMIA ACUTE ON CHRONIC KIDNEY DISEASE HYPOTENSION IMPROVED AFIB DM DEMENTIA H/O PNEUMONIA PLAN IVF TRANSFUSE VENT SUPPORT ON AC MODE MONITOR H+H MONITOR LYTES,RENAL FUNCTION F/U CHEST X-RAYS DR FORMAN Problem List - Problems (1) Anemia Code(s): D64.9 - ANEMIA, UNSPECIFIED (2) Chronic kidney disease, stage 3 Code(s): N18.3 - CHRONIC KIDNEY DISEASE, STAGE 3 (MODERATE) (3) Chronic respiratory failure Code(s): J96.10 - CHRONIC RESPIRATORY FAILURE, UNSP W HYPOXIA OR HYPERCAPNIA Qualifiers: Respiratory failure complication: unspecified whether with hypoxia or hypercapnia Qualified Code(s): J96.10 - Chronic respiratory failure, unspecified whether with hypoxia or hypercapnia (4) PAF (paroxysmal atrial fibrillation) Code(s): I48.0 - PAROXYSMAL ATRIAL FIBRILLATION (5) Renal failure Code(s): N19 - UNSPECIFIED KIDNEY FAILURE Qualifiers: Renal failure chronicity: unspecified chronicity Qualified Code(s): N19 - Unspecified kidney failure (6) Diabetes Code(s): E11.9 - TYPE 2 DIABETES MELLITUS WITHOUT COMPLICATIONS (7) TBI (traumatic brain injury) Code(s): S06.9X9A - UNSP INTRACRANIAL INJURY W LOC OF UNSP DURATION, INIT (8) Lguel-ol-skzwrvh kidney injury Code(s): N17.9 - ACUTE KIDNEY FAILURE, UNSPECIFIED; N18.9 - CHRONIC KIDNEY DISEASE, UNSPECIFIED (9) Nlhry-ek-ywvtxja renal failure Code(s): N17.9 - ACUTE KIDNEY FAILURE, UNSPECIFIED; N18.9 - CHRONIC KIDNEY DISEASE, UNSPECIFIED (10) Hypotension Code(s): I95.9 - HYPOTENSION, UNSPECIFIED (11) Hypotension Code(s): I95.9 - HYPOTENSION, UNSPECIFIED
--- NOTE | 2018-02-24 14:20 | PN ---
Teaching Attending Note Name of Resident: Elia Prieto ATTENDING PHYSICIAN STATEMENT I saw and evaluated the patient. I reviewed the resident's note and discussed the case with the resident. I agree with the resident's findings and plan as documented with exceptions below. SUBJECTIVE: Patient seen and examined. non verbal, eyes open, unable to assess for ROS. OBJECTIVE: Vital Signs Period Temp Pulse Resp BP Sys/Wills Pulse Ox Last 24 Hr 98.0 F-99.7 F 72-81 14-16 117-137/60-65 Intake & Output 02/21/18 02/22/18 02/23/18 02/24/18 23:59 23:59 23:59 23:59 Intake Total 425 76 5470 1050 Output Total 7376 343 7212 500 Balance -700 -850 1650 550 Weight 146 lb 12.8 oz 145 lb 6.4 oz 147 lb 9.6 oz General: lying in bed in no acute distress Chest: poor effort, Abdomen:Soft, improved distension, no grimacing on exam, positive bowel sounds, no voluntary or involuntary guarding or rigidity Extremities: no edema Home Medications Medication Instructions Recorded Acetaminophen [Tylenol] 650 mg PO Q6H PRN 01/21/18 Bacitracin - [Bacitracin Topical 1 applic TP TID 01/21/18 Ointment -] Baclofen 10 mg GT Q8H 01/21/18 Balsam Zabrina/[place] Oil [Venelex 1 applic TP BID 01/21/18 Ointment] Docusate Sodium [Colace -] 100 mg GT ASDIR 01/21/18 Ferrous Sulfate [Feosol] 300 mg GT DAILY 01/21/18 Glycopyrrolate/Formoterol Fum 0 gm IH BID 01/21/18 [Bevespi Aerosphere Inhaler] Heparin - 5,000 unit SQ BID 01/21/18 Hypromellose 0.5% Opth Soln 2 drop OU BID 01/21/18 [Artificial Tears] Insulin Glargine,Hum.rec.anlog 9 units SQ HS 01/21/18 [Lantus Solostar PEN -] Insulin Lispro [Humalog] 0 unit SQ Q6H 01/21/18 L.acidoph,Paracasei, B.lactis 1 each GT DAILY 01/21/18 [Probiotic] Lanolin/Mineral Oil [Eucerin 1 applic TP Q6H 01/21/18 Original Lotion] Levothyroxine Sodium [Synthroid] 37.5 mcg GT BID 01/21/18 Oxybutynin Chloride 5 mg GT BID 01/21/18 Ranitidine [Zantac -] 150 mg GT DAILY 01/21/18 Sertraline HCl [Zoloft] 25 mg GT DAILY 01/21/18 Silver Sulfadiazine 1% Top Cr 1 applic TP DAILY 01/21/18 [Silvadene -] Simethicone 40 mg GT Q6H 01/21/18 Simvastatin 20 mg GT DAILY 01/21/18 Tamsulosin HCl 0.4 mg GT DAILY 01/21/18 Zinc Oxide 1 applic TP BID 01/21/18 Levothyroxine [Synthroid -] 37.5 mcg PEG DAILY@0700 tablet 02/08/18 Sodium Chloride Nasal [place] [Pepin 2 spray NS TID spray 02/08/18 [place] Nasal [place] -] Aspirin [ASA -] 81 mg PO DAILY #30 tab.chew 02/09/18 Furosemide Oral Solution [Lasix 40 mg GT BID #300 udc 02/09/18 Oral Solution -] Nut.tx.imp.renal Fxn,Lac-Reduc 1,000 ml PO DAILY #1000 ml 02/09/18 [Nepro Carb Steady] Potassium Chloride 40 meq GT DAILY #40 meq 02/09/18 Active Medications Acetaminophen (Tylenol -) 650 mg PO Q4H PRN PRN Reason: FEVER Last Admin: 02/23/18 15:55 Dose: 650 mg Artificial Tears (Artificial Tears) 2 drop OU BID [facility] Last Admin: 02/24/18 11:15 Dose: 2 drop Atorvastatin Calcium (Lipitor -) 10 mg GT HS [facility] Last Admin: 02/23/18 22:27 Dose: 10 mg Bacitracin (Bacitracin -) 1 applic TP TID [facility] Last Admin: 02/24/18 06:59 Dose: 1 applic Collagenase (Santyl -) 1 applic TP DAILY [facility] Last Admin: 02/24/18 11:16 Dose: 1 applic Docusate Sodium (Colace Liquid -) 100 mg PO DAILY PRN PRN Reason: CONSTIPATION Ferrous Sulfate (Feosol) 300 mg GT DAILY [facility] Last Admin: 02/24/18 11:14 Dose: 300 mg Piperacillin Sod/Tazobactam (Sod 2.25 gm/ Dextrose) 50 mls @ 100 mls/hr IVPB Q8H-IV [facility]; Protocol Last Admin: 02/24/18 11:17 Dose: 100 mls/hr Dextrose/Sodium Chloride (D5-1/4ns+20 Meq Kcl -) 20 meq in 1,000 mls @ 75 mls/ hr IV ASDIR [facility] Insulin Aspart (Novolog Vial Sliding Scale -) 1 vial SQ [facility]; Protocol Last Admin: 02/24/18 11:44 Dose: 2 units Insulin Detemir (Levemir Vial) 20 units SQ [facility] Last Admin: 02/23/18 22:26 Dose: 20 units Levothyroxine Sodium (Synthroid -) 37.5 mcg PEG DAILY@0700 [facility] Last Admin: 02/24/18 07:00 Dose: 37.5 mcg Non-Formulary Med ( (Probiotic)) 1 each GT DAILY [facility] Last Admin: 02/24/18 11:16 Dose: 1 each Oxybutynin Chloride (Ditropan -) 5 mg NGT BID [facility] Last Admin: 02/24/18 11:14 Dose: 5 mg Prednisolone Sodium Phosphate (Orapred (15 Mg/5 Ml) Oral Solution -) 30 mg PEG DAILY [facility] Last Admin: 02/24/18 11:16 Dose: 30 mg Ranitidine HCl (Zantac Oral Solution -) 150 mg PEG DAILY [facility] Last Admin: 02/24/18 11:14 Dose: 150 mg Senna (Senna Oral Solution -) 8.8 mg PO [facility] Last Admin: 02/23/18 22:28 Dose: 8.8 ml Sertraline HCl (Zoloft -) 25 mg PO DAILY [facility] Last Admin: 02/24/18 11:14 Dose: 25 mg Sucralfate (Carafate Oral Suspension -) 1 gm PEG ACHS [facility] Last Admin: 02/24/18 11:14 Dose: 1 gm Tamsulosin HCl (Flomax -) 0.4 mg PO DAILY@0830 [facility] Last Admin: 02/24/18 08:30 Dose: 0.4 mg Trimethoprim/Sulfamethoxazole (Bactrim Oral Suspension -) 40 mg GT DAILY [facility] Last Admin: 02/24/18 11:15 Dose: 40 mg Laboratory Results - last 24 hr 02/18/18 02/22/18 02/23/18 06:20 15:30 16:42 WBC RBC Hgb Hct MCV MCH MCHC RDW Plt Count MPV Absolute Neuts (auto) Neutrophils % Lymphocytes % Monocytes % Eosinophils % Basophils % Nucleated RBC % Sodium Potassium Chloride Carbon Dioxide Anion Gap BUN Creatinine Creat Clearance w eGFR POC Glucometer 263 Random Glucose Calcium Total Bilirubin AST ALT Alkaline Phosphatase Total Protein Albumin Beta Globulins 0.9 FABIAN & SPEP Interp Total Protein (FABIAN) 5.7 L Albumin (FABAIN) 2.3 L Albumin/Globulin (FABIAN) 0.7 Jrjtt-7-Bxnatvrau FABIAN 0.4 Kjvkh-2-Yyfphcvge FABIAN 0.6 Gamma Globulins (FABIAN) 1.5 FABIAN M-Osbaldo Not observed FABIAN Comments IEP IgG 1257 IEP IgA 510 H IEP IgM 45 Blood Type O POSITIVE Antibody Screen Negative Crossmatch See Detail 02/23/18 02/24/18 02/24/18 21:37 05:50 05:50 WBC 11.3 H RBC 2.29 L Hgb 6.9 L* Hct 20.3 L MCV 88.5 MCH 29.9 MCHC 33.8 RDW 17.6 H Plt Count 151 MPV 10.7 Absolute Neuts (auto) 8.3 Neutrophils % 73.5 Lymphocytes % 18.7 D Monocytes % 7.5 Eosinophils % 0.0 D Basophils % 0.3 Nucleated RBC % 0 Sodium 149 H Potassium 3.4 L Chloride 113 H Carbon Dioxide 25 Anion Gap 11 BUN 197 H* Creatinine 2.7 H Creat Clearance w eGFR 22.57 POC Glucometer 275 Random Glucose 261 H D Calcium 8.0 L Total Bilirubin 0.4 D AST 22 ALT 66 D Alkaline Phosphatase 46 D Total Protein 5.3 L Albumin 2.0 L Beta Globulins FABIAN & SPEP Interp Total Protein (FABIAN) Albumin (FABIAN) Albumin/Globulin (FABIAN) Xhurc-1-Nsndxoljl FABIAN Cnmin-8-Oxzqobsty FABIAN Gamma Globulins (FABIAN) FABIAN M-Osbaldo FABIAN Comments IEP IgG IEP IgA IEP IgM Blood Type Antibody Screen Crossmatch 02/24/18 02/24/18 06:09 11:43 WBC RBC Hgb Hct MCV MCH MCHC RDW Plt Count MPV Absolute Neuts (auto) Neutrophils % Lymphocytes % Monocytes % Eosinophils % Basophils % Nucleated RBC % Sodium Potassium Chloride Carbon Dioxide Anion Gap BUN Creatinine Creat Clearance w eGFR POC Glucometer 304 192 Random Glucose Calcium Total Bilirubin AST ALT Alkaline Phosphatase Total Protein Albumin Beta Globulins FABIAN & SPEP Interp Total Protein (FABIAN) Albumin (FABIAN) Albumin/Globulin (FABIAN) Btpdd-2-Cdzmydoqp FABIAN Qmpis-4-Pdaikqhdm FABIAN Gamma Globulins (FABIAN) FABIAN M-Osbaldo FABIAN Comments IEP IgG IEP IgA IEP IgM Blood Type Antibody Screen Crossmatch CT A/P results reviewed ASSESSMENT AND PLAN: 87 year old male with a significant past medical history of diastolic heart failure, NIDDM, CKD, and 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 Admitted on 02/17/18 from [facility] chronic respiratory failure and severe anemia with a hg of 5.5 and hypotension. -Acute on chronic vent dependent respiratory failure, likely aspiration PNA. 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 Discussed with GI Dr. Hidalgo possible EGD/colonoscopy, plan for pEG lavage, transfuse 1 unit PRBC, trend CBC. Zosyn day 10, sputum cultures with pseudomonas, WBC stable, monitor for now At baseline vent settings, rapid steroid taper, change to 20 mg tomorrow. Pulmonary input appreciated. Patient with good bowel sounds, had 2 BM yesterday, large, non tender abdomen with improved distension and abdominal xray. Clinically not concerning for Sigmoid volvulus. GI/surgery input noted. CT A/P noted. hematology input noted. Continue Fe supplementation. Monitor renal function, cr overall plateaued, Renal input noted. -Levemir, ISS, tube feeds on hold pending above GI concerns. Continue oxybutynin/flomax/zoloft. DVTPPX with SCDs given recurrent anemia with multiple transfusions and positive FOBT. Plan discussed with nursing.
--- NOTE | 2018-02-24 14:40 | PN ---
Physical Exam: SUBJECTIVE: Patient seen and examined at bedside. Pt unresponsive. OBJECTIVE: Vital Signs Period Temp Pulse Resp BP Sys/Wills Pulse Ox Last 24 Hr 98.0 F-99.7 F 72-81 14-16 117-137/60-65 Gen: uncommunicative HEENT: NCAT Neck: trach tube in place. No blood at stoma. functioning well Cardio: irregular, tachycardic, norm s1s2, no m/r/g appreciated Lungs: coarse breath sounds anteriorly Abd: soft, less distended Ext: 1+ pulses, no edema Laboratory Results - last 24 hr 02/18/18 02/22/18 02/23/18 06:20 15:30 16:42 WBC RBC Hgb Hct MCV MCH MCHC RDW Plt Count MPV Absolute Neuts (auto) Neutrophils % Lymphocytes % Monocytes % Eosinophils % Basophils % Nucleated RBC % Sodium Potassium Chloride Carbon Dioxide Anion Gap BUN Creatinine Creat Clearance w eGFR POC Glucometer 263 Random Glucose Calcium Total Bilirubin AST ALT Alkaline Phosphatase Total Protein Albumin Beta Globulins 0.9 FABIAN & SPEP Interp Total Protein (FABIAN) 5.7 L Albumin (FABIAN) 2.3 L Albumin/Globulin (FABIAN) 0.7 Pyrnm-2-Ajfkrtrse FABIAN 0.4 Ialfn-4-Rbsxwxycw FABIAN 0.6 Gamma Globulins (FABIAN) 1.5 FABIAN M-Osbaldo Not observed FABIAN Comments IEP IgG 1257 IEP IgA 510 H IEP IgM 45 Blood Type O POSITIVE Antibody Screen Negative Crossmatch See Detail 02/23/18 02/24/18 02/24/18 21:37 05:50 05:50 WBC 11.3 H RBC 2.29 L Hgb 6.9 L* Hct 20.3 L MCV 88.5 MCH 29.9 MCHC 33.8 RDW 17.6 H Plt Count 151 MPV 10.7 Absolute Neuts (auto) 8.3 Neutrophils % 73.5 Lymphocytes % 18.7 D Monocytes % 7.5 Eosinophils % 0.0 D Basophils % 0.3 Nucleated RBC % 0 Sodium 149 H Potassium 3.4 L Chloride 113 H Carbon Dioxide 25 Anion Gap 11 BUN 197 H* Creatinine 2.7 H Creat Clearance w eGFR 22.57 POC Glucometer 275 Random Glucose 261 H D Calcium 8.0 L Total Bilirubin 0.4 D AST 22 ALT 66 D Alkaline Phosphatase 46 D Total Protein 5.3 L Albumin 2.0 L Beta Globulins FABIAN & SPEP Interp Total Protein (FABIAN) Albumin (FABIAN) Albumin/Globulin (FABIAN) Hixul-5-Lzpmzxnke FABIAN Wxlpi-2-Njbzlphqq FABIAN Gamma Globulins (FABIAN) FABIAN M-Osbaldo FABIAN Comments IEP IgG IEP IgA IEP IgM Blood Type Antibody Screen Crossmatch 02/24/18 02/24/18 06:09 11:43 WBC RBC Hgb Hct MCV MCH MCHC RDW Plt Count MPV Absolute Neuts (auto) Neutrophils % Lymphocytes % Monocytes % Eosinophils % Basophils % Nucleated RBC % Sodium Potassium Chloride Carbon Dioxide Anion Gap BUN Creatinine Creat Clearance w eGFR POC Glucometer 304 192 Random Glucose Calcium Total Bilirubin AST ALT Alkaline Phosphatase Total Protein Albumin Beta Globulins FABIAN & SPEP Interp Total Protein (FABIAN) Albumin (FABIAN) Albumin/Globulin (FABIAN) Jscov-2-Vdbxrkkye FABIAN Tqulo-9-Vuiozshcq FABIAN Gamma Globulins (FABIAN) FABIAN M-Osbaldo FABIAN Comments IEP IgG IEP IgA IEP IgM Blood Type Antibody Screen Crossmatch Active Medications Generic Name Dose Route Start Last Admin Trade Name Freq PRN Reason Stop Dose Admin Acetaminophen 650 mg 02/17/18 17:28 02/23/18 15:55 Tylenol - PO 650 mg Q4H PRN Administration FEVER Artificial Tears 2 drop 02/17/18 22:00 02/24/18 11:15 Artificial Tears OU 2 drop BID [facility] Administration Atorvastatin Calcium 10 mg 02/17/18 22:00 02/23/18 22:27 Lipitor - GT 10 mg HS [facility] Administration Bacitracin 1 applic 02/17/18 22:00 02/24/18 06:59 Bacitracin - TP 1 applic TID [facility] Administration Collagenase 1 applic 02/19/18 16:00 02/24/18 11:16 Santyl - TP 1 applic DAILY [facility] Administration Docusate Sodium 100 mg 02/21/18 11:37 Colace Liquid - PO DAILY PRN CONSTIPATION Ferrous Sulfate 300 mg 02/18/18 10:00 02/24/18 11:14 Feosol GT 300 mg DAILY [facility] Administration Piperacillin Sod/Tazobactam 50 mls @ 100 mls/hr 02/18/18 02:00 02/24/18 11:17 Sod 2.25 gm/ Dextrose IVPB 100 mls/hr Q8H-IV [facility] Administration Protocol Dextrose/Sodium Chloride 20 meq in 1,000 mls @ 75 mls/hr 02/24/18 12:45 D5-1/4ns+20 Meq Kcl - IV ASDIR [facility] Insulin Aspart 1 vial 02/19/18 08:16 02/24/18 11:44 Novolog Vial Sliding Scale - SQ 2 units ACHS [facility] Administration Protocol Insulin Detemir 20 units 02/20/18 11:05 02/23/18 22:26 Levemir Vial SQ 20 units HS [facility] Administration Levothyroxine Sodium 37.5 mcg 02/18/18 07:00 02/24/18 07:00 Synthroid - PEG 37.5 mcg DAILY@0700 [facility] Administration Non-Formulary Med ( 1 each 02/21/18 20:00 02/24/18 11:16 Probiotic) GT 1 each DAILY [facility] Administration Oxybutynin Chloride 5 mg 02/17/18 22:00 02/24/18 11:14 Ditropan - NGT 5 mg BID [facility] Administration Pantoprazole Sodium 40 mg 02/24/18 22:00 Protonix Iv IVPUSH BID [facility] Prednisolone Sodium Phosphate 10 mg 02/25/18 10:00 Orapred (15 Mg/5 Ml) Oral Solution - PEG 02/25/18 10:01 DAILY [facility] Ranitidine HCl 150 mg 02/21/18 10:00 02/24/18 11:14 Zantac Oral Solution - PEG 150 mg DAILY [facility] Administration Senna 8.8 mg 02/21/18 22:00 02/23/18 22:28 Senna Oral Solution - PO 8.8 ml HS [facility] Administration Sertraline HCl 25 mg 02/17/18 17:27 02/24/18 11:14 Zoloft - PO 25 mg DAILY [facility] Administration Sucralfate 1 gm 02/19/18 11:00 02/24/18 11:14 Carafate Oral Suspension - PEG 1 gm [facility] Administration Tamsulosin HCl 0.4 mg 02/18/18 08:30 02/24/18 08:30 Flomax - PO 0.4 mg DAILY@0830 [facility] Administration Trimethoprim/Sulfamethoxazole 40 mg 02/23/18 16:00 02/24/18 11:15 Bactrim Oral Suspension - GT 40 mg DAILY [facility] Administration ASSESSMENT/PLAN: Pt is an 87 y/o M with PMH significant for TBI (08/2017) s/p trach and vent dependent, PEG, paraplegia, dCHF, NIDDM, CKD, deaf, blind who presented to ED from [facility] with respiratory failure and severe anemia with hypotension. Pt is admitted to Med-Surg. #Abdominal distension -intermittent large volume stools reported -abdomen soft, distended, tympanic -NPO -CTAP neg for volvulus #Acute on chronic resp failure -likely 2/2 aspiration PNA -at baseline vent settings: AC Tv 450, RR 14, FiO2 28, PEEP 5 -Initially on Medrol 40. d/c'ed -Prednisone 40 -Pulm on board: poor weaning candidate #Asp PNA -Zosyn -ID on board: rec possible deescalation of Abx by [facility] -Bactrim #Anemia -was transfused 6 PRBCs total -Hb stable last 2 days -Given Epo (02/20/2018) -Heme on board: will give weekly Epo -No obvious active bleed -per son, had negative colonoscopy 2 years ago -1 PRBC today. repeat hb 7.4 #?GIB -fobt pos -anemia -counts dropping despite prbcs and epo -possible gi bleed -gastric lavage this afternoon -? scope. GI consulted #Acute on CKD - [employer] [place] [employer] stabilized around 2.6 - BUN up-trending -? etiology. ?steroids vs GIB vs dehydration -Nepro on board: prerenal. Adjusted fluids today #Hypernatremia -fluids modified by nephro -Nephro input appreciated #Thrombophilia - Resolved -plt wnl #DM -Levemir was increased -ISS -glucose continues to be elevated in 150s -titrate Insulin #TBI -s/p trach and PEG -secondary paraplegia #Hypothyroid -c/w synthroid #Incontinence -christopher -flomax -oxybutinin #depression -zoloft #FEN -Not on fluids. Increased flushes given via G-tube -lytes: mild hypoK. Repleting -Nutrition: via G-tube. Nepro #PPx -held in setting of possible bleed #Dispo -med surg Elia Prieto MD PGY-1 IM Visit type - Emergency Visit Emergency Visit: No - New Patient This patient is new to me today: No - Critical Care Critical Care patient: No - Discharge Referral [facility]erred to [facility] No
[2018-02-24 15:58] LABS: BASO % 0.1 % (0-2.0); EOS % 0.1 % (0-4.5); HEMATOCRIT 24.3 % (35.4-49); HEMOGLOBIN 8.1 GM/dL (11.7-16.9); LYMPH % 6.1 % (8-40); MCH 29.6 pg (25.7-33.7); MCHC 33.4 g/dl (32.0-35.9); MEAN CELL VOLUME 88.6 fl (80-96); MEAN PLT VOLUME 10.6 fl (7.5-11.1); MONO % 1.2 % (3.8-10.2); NEUT % 92.5 % (42.8-82.8); PLATELET COUNT 169 K/MM3 (134-434); RBC 2.74 M/mm3 (4.00-5.60); RDW 16.6 % (11.9-15.9); WHITE BLOOD COUNT 11.7 K/mm3 (4.0-10.0)
[2018-02-24] MEDS ORDERED: dilTIAZem HCL 50 MG/10 ML - 10 ML VIAL IVPB ONE ×2 (16:30→20:45)
[2018-02-24] MEDS ORDERED: PANTOPRAZOLE SODIUM 80 MG in SODIUM CHLORIDE 100 ML IVPB SCH (16:45)
--- NOTE | 2018-02-24 16:50 | PN ---
GI Progress Note Subjective: Called by resident: Melena reported last night S/P 1 U PRBC today Daughter bedside - Objective Vital Signs: Vital Signs Temperature - 02/24/18 16:30 Pulse Rate 149 02/24/18 16:30 Respiratory Rate 16 02/24/18 16:30 Blood Pressure 114/67 02/24/18 16:30 O2 Sat by Pulse Oximetry (%) 99 02/23/18 16:30 Constitutional: Calm Eyes: No: Sclera Icterus Neck: Yes: Other (Trach in place) Cardiovascular: Yes: Tachycardia, Pulse Irregular Respiratory: Yes: Diminished (a bases bilaterally. poor insp effort) Gastrointestinal Inspection: Yes: Other (G Tube in upper abdomen. No peripeg induration/erythema. 500cc NS lavage performed through G-Tube: pink / red liquid liquid lavaged without clearing.). No: Distention ...Auscultate: Yes: Normoactive Bowel Sounds ...Palpate: No: Tenderness (No grimacing upon palpation) ...Percussion: No: Tympanitic ...Rectal Exam: Yes: Other (Dark brown stool / melena) Edema: No (No LE edema) Neurological: Yes: Other (does not open eyes spontaneously. Non verbal) Labs: CBC, BMP 02/24/18 15:30 02/24/18 05:50 INR, PTT INR 1.13 (0.82-1.09) 02/16/18 22:40 Problem List - Problems (1) Upper GI bleed Assessment/Plan: The G tube lavage yields red fluid that cannot be attributed to medications. The BUN out of proportion to the Creatinine adds suspicion for upper GI source as well. Discussed this with Ms. Corcoran's daughter Discussed upper endoscopy to assess for source of potential active bleeding. Discussed alternatives such as medical therapy and not performing interventions. Discussed potential risks of upper endoscopy like but not limited to bleeding, perforation requiring surgery to repair, infection, sedation medication effects all of which could be potentially life threatening. She has opted for him to undergo upper endoscopy. Consent was signed and wittnessed by Mr. Corcoran's nurse. For now: Initiated transfer to ICU Changed to PPI drip Keep 2 U PRBC on hold Rate control: currently in a.fib w/ RVR Continue to hold tube feeds. Code(s): K92.2 - GASTROINTESTINAL HEMORRHAGE, UNSPECIFIED
[2018-02-24] MEDS ORDERED: dilTIAZem HCL 50 MG/10 ML - 10 ML VIAL IVPUSH PRN ×2 (16:51→20:32)
[2018-02-24] MEDS ORDERED: PANTOPRAZOLE SODIUM 160 MG in DEXTROSE 5%-WATER - 290 ML IVPB SCH (17:00)
--- NOTE | 2018-02-24 17:01 | PN ---
Progress Note, Physician History of Present Illness: Vent-dependent patient with trach and PEG, nonverbal, TBI, blind and deaf, had AXR couple days ago with questionable volvulus, then copious BMs and gas. F/U AXR with improved gas pattern, gas and stool in colon including sigmoid. Had CT showing no obstruction, somewhat gas-distended sigmoid, stool and air in colon and rectum, contrast to mid-colon. Has been transfused for anemia and had dark liquid BM in diaper last night. GI currently seeing and planning endoscopy. - Current Medication List Current Medications: Active Medications Acetaminophen (Tylenol -) 650 mg PO Q4H PRN PRN Reason: FEVER Last Admin: 02/23/18 15:55 Dose: 650 mg Artificial Tears (Artificial Tears) 2 drop OU BID [facility] Last Admin: 02/24/18 11:15 Dose: 2 drop Atorvastatin Calcium (Lipitor -) 10 mg GT HS [facility] Last Admin: 02/23/18 22:27 Dose: 10 mg Bacitracin (Bacitracin -) 1 applic TP TID [facility]IA Last Admin: 02/24/18 15:21 Dose: 1 applic Chlorhexidine Gluconate (Hibiclens For Decolonization -) 1 applic TP HS [facility] Collagenase (Santyl -) 1 applic TP DAILY [facility] Last Admin: 02/24/18 11:16 Dose: 1 applic Diltiazem HCl (Cardizem Injection -) 20 mg IVPUSH Q4H PRN PRN Reason: TACHYCARDIA Docusate Sodium (Colace Liquid -) 100 mg PO DAILY PRN PRN Reason: CONSTIPATION Ferrous Sulfate (Feosol) 300 mg GT DAILY [facility] Last Admin: 02/24/18 11:14 Dose: 300 mg Piperacillin Sod/Tazobactam (Sod 2.25 gm/ Dextrose) 50 mls @ 100 mls/hr IVPB Q8H-IV [facility]; Protocol Last Admin: 02/24/18 11:17 Dose: 100 mls/hr Dextrose/Sodium Chloride (D5-1/4ns+20 Meq Kcl -) 20 meq in 1,000 mls @ 75 mls/ hr IV ASDIR [facility] Last Admin: 02/24/18 13:00 Dose: 75 mls/hr Pantoprazole Sodium 160 mg/ (Dextrose) 290 mls @ 14.5 mls/hr IVPB Q20H [facility] Insulin Aspart (Novolog Vial Sliding Scale -) 1 vial SQ ACHS [facility]; Protocol Last Admin: 02/24/18 11:44 Dose: 2 units Insulin Detemir (Levemir Vial) 20 units SQ [facility] Last Admin: 02/23/18 22:26 Dose: 20 units Levothyroxine Sodium (Synthroid -) 37.5 mcg PEG DAILY@0700 [facility] Last Admin: 02/24/18 07:00 Dose: 37.5 mcg Mupirocin (Bactroban Ointment (For Decolonization) -) 1 applic NS BID [facility] Stop: 03/01/18 21:59 Non-Formulary Med ( (Probiotic)) 1 each GT DAILY [facility] Last Admin: 02/24/18 11:16 Dose: 1 each Oxybutynin Chloride (Ditropan -) 5 mg NGT BID [facility] Last Admin: 02/24/18 11:14 Dose: 5 mg Prednisolone Sodium Phosphate (Orapred (15 Mg/5 Ml) Oral Solution -) 10 mg PEG DAILY [facility] Stop: 02/25/18 10:01 Senna (Senna Oral Solution -) 8.8 mg PO [facility] Last Admin: 02/23/18 22:28 Dose: 8.8 ml Sertraline HCl (Zoloft -) 25 mg PO DAILY [facility] Last Admin: 02/24/18 11:14 Dose: 25 mg Tamsulosin HCl (Flomax -) 0.4 mg PO DAILY@0830 [facility] Last Admin: 02/24/18 08:30 Dose: 0.4 mg Trimethoprim/Sulfamethoxazole (Bactrim Oral Suspension -) 40 mg GT DAILY [facility] Last Admin: 02/24/18 11:15 Dose: 40 mg - Objective Vital Signs: Vital Signs Temperature 98.4 F 02/24/18 14:25 Pulse Rate 75 02/24/18 14:25 Respiratory Rate 16 02/24/18 14:25 Blood Pressure 131/60 02/24/18 14:25 O2 Sat by Pulse Oximetry (%) 99 02/23/18 09:00 Constitutional: Yes: Well Nourished, No Distress, Calm Eyes: Yes: Conjunctiva Clear, EOM Intact Neck: Yes: Other (tracheostomy) Respiratory: Yes: Regular, Mechanically Ventilated (via trach) Gastrointestinal: Yes: Soft, Distention (minimal, tympanic), Other (PEG tube, feeds held; site clean). No: Tenderness (difficult to assess given clinical condition) ...Rectal Exam: Yes: Deferred Genitourinary: Yes: Childs Present. No: Hematuria Extremities: Yes: Other (hands/fingers clenched around palm rolls). No: Cool, Cyanosis Integumentary: No: Jaundice, Rash Neurological: Yes: Pre-Existing Deficit (c-spine paraplegic). No: Alert Labs: CBC, BMP 02/24/18 15:30 02/24/18 05:50 - ....Imaging Cat Scan: Report Reviewed, Image Reviewed (last night) Problem List - Problems (1) Constipation Assessment/Plan: No evidence of volvulus. Sigmoid appears redundant, but pt with + bowel function , possible melena. Anemia likely related to GI bleeding; per GI - gastric lavage positive for pink fluid/presumed blood. Plan for endoscopy. No general surgical issues identified at this time. Will sign off; please reconsult if needed. Code(s): K59.00 - CONSTIPATION, UNSPECIFIED Qualifiers: Qualified Code(s): K59.00 - Constipation, unspecified (2) Ufkky-fv-xxlihhs renal failure Code(s): N17.9 - ACUTE KIDNEY FAILURE, UNSPECIFIED; N18.9 - CHRONIC KIDNEY DISEASE, UNSPECIFIED Qualifiers: Qualified Code(s): N17.9 - Acute kidney failure, unspecified; N18.3 - Chronic kidney disease, stage 3 (moderate) (3) Anemia Code(s): D64.9 - ANEMIA, UNSPECIFIED Qualifiers: Qualified Code(s): N18.9 - Chronic kidney disease, unspecified; D63.1 - Anemia in chronic kidney disease (4) Chronic respiratory failure Code(s): J96.10 - CHRONIC RESPIRATORY FAILURE, UNSP W HYPOXIA OR HYPERCAPNIA Qualifiers: Qualified Code(s): J96.10 - Chronic respiratory failure, unspecified whether with hypoxia or hypercapnia (5) Childs catheter in place Code(s): Z92.89 - PERSONAL HISTORY OF OTHER MEDICAL TREATMENT (6) S/P percutaneous endoscopic gastrostomy (PEG) tube placement Code(s): Z93.1 - GASTROSTOMY STATUS (7) Tracheostomy dependent Code(s): Z93.0 - TRACHEOSTOMY STATUS (8) CHF (congestive heart failure) Code(s): I50.9 - HEART FAILURE, UNSPECIFIED Qualifiers: Qualified Code(s): I50.32 - Chronic diastolic (congestive) heart failure (9) Diabetes Code(s): E11.9 - TYPE 2 DIABETES MELLITUS WITHOUT COMPLICATIONS Qualifiers: Qualified Code(s): E11.22 - Type 2 diabetes mellitus with diabetic chronic kidney disease; N18.3 - Chronic kidney disease, stage 3 (moderate) (10) TBI (traumatic brain injury) Code(s): S06.9X9A - UNSP INTRACRANIAL INJURY W LOC OF UNSP DURATION, INIT Qualifiers: Qualified Code(s): S06.9X9S - Unspecified intracranial injury with loss of consciousness of unspecified duration, sequela (11) Paraplegia following spinal cord injury Code(s): G82.20 - PARAPLEGIA, UNSPECIFIED
[2018-02-24 17:44] LABS: ANISOCYTOSIS 2+; MACROCYTOSIS 2+; OVALOCYTE 1+
[2018-02-24 17:45] LABS: PLATELET ESTIMATE ADEQUATE
[2018-02-24] MEDS ORDERED: PHENYLEPHRINE HCL 10 MG/1 ML SINGLE DOSE VIAL ONE (18:46)
[2018-02-24] MEDS ORDERED: EPINEPHrine 1:10,000 (P-F SYR) 1 MG/10 ML DISP.SYRIN IM ONE (19:31)
[2018-02-24] MEDS ORDERED: EPINEPHrine 1:10,000 (P-F SYR) 1 MG/10 ML DISP.SYRIN ONE (20:04)
[2018-02-24] MEDS ORDERED: ACETAMINOPHEN 325 MG TABLET (FP) PO PRN (20:32)
[2018-02-24] MEDS ORDERED: DOCUSATE NA 100 MG/10 ML UNIT-DOSE CUPS PO PRN (20:32)
--- NOTE | 2018-02-24 20:43 | CONSULT ---
Consultation: REQUESTING PROVIDER: Sandi Carl CONSULT REQUEST: We have been asked to medically evaluate this patient for Upper GI Bleed need for ICU level of care. HISTORY OF PRESENT ILLNESS: 87 yo M with PMHx of IDDM, TBI/cervical-spine injury with paraplegia since , vent-dependent s/p trach and PEG, [place] resident, admitted for anemia from possible UGIB. Found to have bright red blood after gastric tube lavage. Taken for urgent EGD and found to have Dieulafoy's lesion treated with epinephrine and heater probe coagulation. Tolerated the procedure well. 2 units PRBC's transfused today with appropriate response. Brought to ICU for close monitoring. 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 ELIGIBILITY ASSISTANT: Yes: Dementia (mild, per daughter), Other (TBI/c-spine paraplegia) Cardio/Vascular: Yes: AFIB, CHF, HTN Pulmonary: Yes: O2 Dependent, Other (s/p Trach, vent dependent) Renal/: Yes: Renal Failure Heme/Onc: Yes: Anemia Psych: Yes: Other Musculoskeletal: Yes: Paraplegia (cervical level since 08/23) Endocrine: Yes: Diabetes Mellitus - Past Surgical History Past Surgical History: Yes: Cataract Removal ((didn't work per daughter)) Additional Surgical History: tracheostomy, PEG - Alcohol/Substance Use Hx Alcohol Use: No History of Substance Use: reports: None - Smoking History Smoking history: Never smoked Have you smoked in the past 12 months: No - Social History Usual Living Arrangement: [facility] ADL: Support Services REVIEW OF SYSTEMS: Unable to obtain 2/2 patient clinical condition. PHYSICAL EXAMINATION Vital Signs 02/24/18 02/24/18 02/24/18 14:25 14:35 18:00 Temperature 98.4 F 99.6 F Pulse Rate 75 144 H Respiratory 16 18 14 Rate Blood Pressure 131/60 96/64 O2 Sat by Pulse Oximetry (%) 02/24/18 18:35 Temperature Pulse Rate Respiratory 16 Rate Blood Pressure O2 Sat by Pulse Oximetry (%) Gen: Awake and alert. Lying comfortably. Neck: trach in place. CV: RRR, NL S1S2, No M/G/R Lungs: Diminshed bibasilar breath sounds with poor inspiratory effort. GI: G Tube in upper abdomen, Soft, NT/ND, NABS, tympanic. Ext: no clubbing, cyanosis, or edema. Neuro: Nonverbal, bedridden, contracted Laboratory Results - last 24 hr 02/18/18 02/22/18 02/23/18 06:20 15:30 21:37 WBC RBC Hgb Hct MCV MCH MCHC RDW Plt Count MPV Absolute Neuts (auto) Total Counted Neutrophils % Neutrophils % (Manual) Band Neutrophils % Lymphocytes % Lymphocytes % (Manual) Monocytes % Monocytes % (Manual) Eosinophils % Basophils % Nucleated RBC % Hypochromia Platelet Estimate Polychromasia Anisocytosis Microcytosis Macrocytosis Ovalocytes [place] Cells Sodium Potassium Chloride Carbon Dioxide Anion Gap BUN Creatinine Creat Clearance w eGFR POC Glucometer 275 Random Glucose Calcium Total Bilirubin AST ALT Alkaline Phosphatase Total Protein Albumin Beta Globulins 0.9 FABIAN & SPEP Interp Total Protein (FABIAN) 5.7 L Albumin (FABIAN) 2.3 L Albumin/Globulin (FABIAN) 0.7 Mhrzx-4-Edzqoadij FABIAN 0.4 Lgeqo-1-Qzdulyyff FABIAN 0.6 Gamma Globulins (FABIAN) 1.5 FABIAN M-Osbaldo Not observed FABIAN Comments IEP IgG 1257 IEP IgA 510 H IEP IgM 45 Blood Type O POSITIVE Antibody Screen Negative Crossmatch See Detail 02/24/18 02/24/18 02/24/18 05:50 05:50 06:09 WBC 11.3 H RBC 2.29 L Hgb 6.9 L* Hct 20.3 L MCV 88.5 MCH 29.9 MCHC 33.8 RDW 17.6 H Plt Count 151 MPV 10.7 Absolute Neuts (auto) 8.3 Total Counted Neutrophils % 73.5 Neutrophils % (Manual) Band Neutrophils % Lymphocytes % 18.7 D Lymphocytes % (Manual) Monocytes % 7.5 Monocytes % (Manual) Eosinophils % 0.0 D Basophils % 0.3 Nucleated RBC % 0 Hypochromia Platelet Estimate Polychromasia Anisocytosis Microcytosis Macrocytosis Ovalocytes [place] Cells Sodium 149 H Potassium 3.4 L Chloride 113 H Carbon Dioxide 25 Anion Gap 11 BUN 197 H* Creatinine 2.7 H Creat Clearance w eGFR 22.57 POC Glucometer 304 Random Glucose 261 H D Calcium 8.0 L Total Bilirubin 0.4 D AST 22 ALT 66 D Alkaline Phosphatase 46 D Total Protein 5.3 L Albumin 2.0 L Beta Globulins FABIAN & SPEP Interp Total Protein (FABIAN) Albumin (FABIAN) Albumin/Globulin (FABIAN) Ucjwd-4-Pgpeqzanc FABIAN Kuirb-4-Vhvbwtcbo FABIAN Gamma Globulins (FABIAN) FABIAN M-Osbaldo FABIAN Comments IEP IgG IEP IgA IEP IgM Blood Type Antibody Screen Crossmatch 02/24/18 02/24/18 02/24/18 11:43 15:30 17:45 WBC 11.7 H RBC 2.74 L Hgb 8.1 L D Hct 24.3 L D MCV 88.6 MCH 29.6 MCHC 33.4 RDW 16.6 H Plt Count 169 MPV 10.6 Absolute Neuts (auto) 10.8 Total Counted 100 Neutrophils % 92.5 H D Neutrophils % (Manual) 84.0 H Band Neutrophils % 6.0 Lymphocytes % 6.1 L D Lymphocytes % (Manual) 9.0 D Monocytes % 1.2 L D Monocytes % (Manual) 1 L Eosinophils % 0.1 D Basophils % 0.1 Nucleated RBC % 0 Hypochromia 3+ Platelet Estimate Adequate Polychromasia 1+ Anisocytosis 2+ Microcytosis 1+ Macrocytosis 2+ Ovalocytes 1+ Alexander Cells 1+ Sodium Potassium Chloride Carbon Dioxide Anion Gap BUN Creatinine Creat Clearance w eGFR POC Glucometer 192 232 Random Glucose Calcium Total Bilirubin AST ALT Alkaline Phosphatase Total Protein Albumin Beta Globulins FABIAN & SPEP Interp Total Protein (FABIAN) Albumin (FABIAN) Albumin/Globulin (FABIAN) Zdeny-9-Ubggbrqfy FABIAN Llshh-2-Naknsjkbw FABIAN Gamma Globulins (FABIAN) FABIAN M-Osbaldo FABIAN Comments IEP IgG IEP IgA IEP IgM Blood Type Antibody Screen Crossmatch Active Medications Generic Name Dose Route Start Last Admin Trade Name Freq PRN Reason Stop Dose Admin Acetaminophen 650 mg 02/24/18 20:32 Tylenol - PO Q4H PRN FEVER Atorvastatin Calcium 10 mg 02/24/18 22:00 Lipitor - GT HS [facility] Bacitracin 1 applic 02/24/18 22:00 Bacitracin - TP TID [facility] Chlorhexidine Gluconate 1 applic 02/24/18 22:00 Hibiclens For Decolonization - TP HS LILIA Collagenase 1 applic 02/25/18 10:00 Santyl - TP DAILY [facility] Diltiazem HCl 20 mg 02/24/18 20:32 Cardizem Injection - IVPB 02/24/18 20:33 ONCE ONE Docusate Sodium 100 mg 02/24/18 20:32 Colace Liquid - PO DAILY PRN CONSTIPATION Ferrous Sulfate 300 mg 02/25/18 10:00 Feosol GT DAILY [facility] Dextrose/Sodium Chloride 20 meq in 1,000 mls @ 75 mls/hr 02/24/18 20:32 D5-1/4ns+20 Meq Kcl - IV ASDIR [facility] Insulin Aspart 1 vial 02/24/18 22:00 Novolog Vial Sliding Scale - SQ ACHS [facility] Protocol Insulin Detemir 20 units 02/24/18 22:00 Levemir Vial SQ HS [facility] Levothyroxine Sodium 37.5 mcg 02/25/18 07:00 Synthroid - PEG DAILY@0700 [facility] Non-Formulary Medication 1 each 02/25/18 10:00 Non-Formulary Med GT DAILY [facility] ASSESSMENT/PLAN: 87 y/o M with PMH significant for TBI (08/2017) s/p trach and vent dependent, PEG, paraplegia, dCHF, NIDDM, CKD, deaf, blind who presented to ED from [facility] with respiratory failure and severe anemia with hypotension s/p EGD and themal coagulation of UGIB. Neuro: * Nonverbal at baseline s/p TBI * Pain control tylenol supp. PRN. CV: * BP and HR stable * continue with Cardizem IV. Pulm: * Possible aspirations PNA- (+) sputum cultures pseudomonas * aspiration precautions. * trached and vented. AC settings at baseline. * Maintain SpO2>90% GI: * UGIB s/p EGD and thermal coagulation. * Bowel rest - NPO * IV meds only * PPI ggt. * repeat H/H now and in AM * normal transfusion thresholds. ID: * aspirations PNA with (+) Pseudomonas * Zosyn day 10 * Afebrile and stable WBC Renal: * KATERIN on CKD * Hypernatremia - free water def. 300ml * Continue to monitor renal function. . * Hydration through the G tube once it is usable. * Nephrology consult appreciated. ENDO: * IDDM an hypothyroidism * continue levamir * Synthroid IV 18.75 (half PO dose) * ISS held as patient is NPO * Will restart when feeding resumes. FEN: * IVF D5-1/2NS with 20 Meq KCL @ 75ml Hr/ * hypokalemia and hypernatremia ; repeat BMP in AM * NPO for now - bowel rest. Dispo: We will continue to follow the patient in ICU. Thank you for this consultative opportunity. Problem List - Problems (1) Upper GI bleed (2) Aspiration pneumonia (3) Ywnjg-zk-kazceoo kidney injury (4) Paraplegia following spinal cord injury (5) Tracheostomy dependent (6) Diabetes (7) Hypothyroid (8) TBI (traumatic brain injury) Visit type - Emergency Visit Emergency Visit: Yes ED Registration Date: 02/17/18 Care time: The patient presented to the Emergency Department on the above date and was hospitalized for further evaluation of their emergent condition. - New Patient This patient is new to me today: Yes Date on this admission: 02/24/18 - Critical Care Critical Care patient: Yes Total Critical Care Time (in minutes): 65 Critical Care Statement: The care of this patient involved high complexity decision making to prevent further life threatening deterioration of the patient 's condition and/or to evaluate & treat vital organ system(s) failure or risk of failure.
[2018-02-24] MEDS: D5-1/4NS+20 MEQ KCL - 20 MEQ/1,000 ML INFUS.BAG IV SCH (21:00)
[2018-02-24] MEDS: ATORVASTATIN CA 10 MG TABLET (FP) GT SCH (21:26)
[2018-02-24] MEDS: CHLORHEXIDINE GLUCONATE 4% CLEANSER FOR DECOLONIZATION TP SCH (21:26)
[2018-02-24] MEDS: SENNOSIDES 8.8 MG/5 ML BULK BOTTLE PO SCH (21:27)
[2018-02-24] MEDS: INSULIN (LEVEMIR) 100 UNITS/ML UNITS SQ SCH (21:44)
[2018-02-24] MEDS: MUPIROCIN 2% TOPICAL OINTMENT FOR DECOLONIZATION NS SCH (21:56)
[2018-02-24] MEDS ORDERED: CHLORHEXIDINE GLUCONATE 4% CLEANSER FOR DECOLONIZATION TP SCH (22:00)
[2018-02-24] MEDS ORDERED: PANTOPRAZOLE SODIUM 40 MG VIAL IVPUSH SCH (22:00)
[2018-02-24] MEDS ORDERED: MUPIROCIN 2% TOPICAL OINTMENT FOR DECOLONIZATION NS SCH (22:00)
[2018-02-24 22:55] LABS: HEMATOCRIT 25.8 % (35.4-49); HEMOGLOBIN 8.5 GM/dL (11.7-16.9); MCHC 32.9 g/dl (32.0-35.9); MEAN CELL VOLUME 88.2 fl (80-96); PLATELET COUNT 180 K/MM3 (134-434); RBC 2.92 M/mm3 (4.00-5.60); WHITE BLOOD COUNT 13.3 K/mm3 (4.0-10.0)
[2018-02-25] MEDS ORDERED: PIPERACILLIN/TAZOBACTAM 2.25 GM VIAL IVPB ONE ×3 (01:11→17:52)
[2018-02-25] MEDS ORDERED: DEXTROSE 5%-WATER - 50 ML IVPB ONE ×3 (01:11→17:52)
[2018-02-25] MEDS: PIPERACILLIN/TAZOB 2.25 GM 2.25 GM in DEXTROSE 5%-WATER - 50 ML IVPB SCH ×3 (01:23→17:54)
[2018-02-25 06:05] LABS: BASO % 0.1 % (0-2.0); HEMATOCRIT 24.7 % (35.4-49); HEMOGLOBIN 8.4 GM/dL (11.7-16.9); LYMPH % 14.3 % (8-40); MCH 29.7 pg (25.7-33.7); MCHC 34.1 g/dl (32.0-35.9); MEAN CELL VOLUME 87.1 fl (80-96); MEAN PLT VOLUME 10.6 fl (7.5-11.1); MONO % 5.7 % (3.8-10.2); NEUT % 79.9 % (42.8-82.8); PLATELET COUNT 148 K/MM3 (134-434); RBC 2.84 M/mm3 (4.00-5.60); WHITE BLOOD COUNT 11.5 K/mm3 (4.0-10.0)
[2018-02-25] MEDS: INSULIN SLIDING SCALE (NOVOLOG) 1 VIAL SQ SCH ×4 (06:14→22:03)
[2018-02-25] MEDS: BACITRACIN 15 GM TUBE TOPICAL OINTMENT TP SCH ×3 (06:17→21:33)
[2018-02-25 06:34] LABS: CHLORIDE 116 mmol/L (98-107); SODIUM 150 mmol/L (136-145)
[2018-02-25 06:43] LABS: ALK PHOS 41 U/L (45-117); ANION GAP 11 (8-16); BILIRUBIN,TOTAL 0.4 mg/dL (0.2-1.0); CALCIUM 7.9 mg/dL (8.5-10.1); CO2 23 mmol/L (21-32); CREATININE 2.5 mg/dL (0.7-1.3); GLUCOSE,RANDOM 176 mg/dL (74-106); SGOT/AST 15 U/L (15-37); SGPT/ALT 50 U/L (12-78); TOT PROT 5.2 g/dl (6.4-8.2)
[2018-02-25 06:54] LABS: BLOOD UREA NITROGEN 197 mg/dL (7-18)
[2018-02-25] MEDS ORDERED: LEVOTHYROXINE SODIUM 100 MCG VIAL IVPUSH SCH (07:00)
--- NOTE | 2018-02-25 07:16 | PN ---
Progress Note, Physician Chief Complaint: Pt on ventilator/trached. opens eyes to tactile stimuli; otherwise, no significant response. History of Present Illness: The patient is an 87 year old white male, with a significant past medical history of traumatic fall (s/p neck (C4,5, and 6)/back surgery, tracheotomy placement now ventilator dependent, and PEG tube placement), frequent pneumonia , emphysema, A-fib, diastolic CHF, DM, dementia, renal failure, nonverbal TBI, paraplegic, legally blind and deaf, who presents to the emergency department via EMS from [facility] with, 3 days of hypotension. Now transferred to ICU after being found to have bright red blood on gastric tube lavage that led to PRBCs and heater probe coagulation. Allergies: NKA Social History: Former smoker (Quit 35 years ago). Denies EtOH use and recreational drug use. - Current Medication List Current Medications: Active Medications Acetaminophen (Tylenol -) 650 mg PO Q4H PRN PRN Reason: FEVER Artificial Tears (Artificial Tears) 2 drop OU BID [facility] Last Admin: 02/24/18 21:41 Dose: 2 drop Atorvastatin Calcium (Lipitor -) 10 mg GT HS [facility] Last Admin: 02/24/18 21:26 Dose: Not Given Bacitracin (Bacitracin -) 1 applic TP TID [facility] Last Admin: 02/25/18 06:17 Dose: 1 applic Chlorhexidine Gluconate (Hibiclens For Decolonization -) 1 applic TP HS [facility] Last Admin: 02/24/18 21:26 Dose: 1 applic Collagenase (Santyl -) 1 applic TP DAILY [facility] Diltiazem HCl (Cardizem Injection -) 20 mg IVPUSH Q4H PRN PRN Reason: TACHYCARDIA Docusate Sodium (Colace Liquid -) 100 mg PO DAILY PRN PRN Reason: CONSTIPATION Ferrous Sulfate (Feosol) 300 mg GT DAILY [facility] Dextrose/Sodium Chloride (D5-1/4ns+20 Meq Kcl -) 20 meq in 1,000 mls @ 75 mls/ hr IV ASDIR [facility] Last Admin: 02/24/18 21:00 Dose: 75 mls/hr Piperacillin Sod/Tazobactam (Sod 2.25 gm/ Dextrose) 50 mls @ 100 mls/hr IVPB Q8H-IV [facility]; Protocol Last Admin: 02/25/18 01:23 Dose: 100 mls/hr Pantoprazole Sodium 160 mg/ (Dextrose) 290 mls @ 14.5 mls/hr IVPB Q20H [facility] Insulin Aspart (Novolog Vial Sliding Scale -) 1 vial SQ [facility]; Protocol Last Admin: 02/25/18 06:14 Dose: 4 units Insulin Detemir (Levemir Vial) [address] [facility] Last Admin: 02/24/18 21:44 Dose: 20 units Levothyroxine Sodium (Synthroid -) 37.5 mcg PEG DAILY@0700 [facility] Mupirocin (Bactroban Ointment (For Decolonization) -) 1 applic NS BID [facility] Stop: 03/01/18 21:59 Last Admin: 02/24/18 21:56 Dose: 1 applic Non-Formulary Medication (Non-Formulary Med) 1 each GT DAILY [facility] Oxybutynin Chloride (Ditropan -) 5 mg NGT BID [facility] Last Admin: 02/24/18 21:26 Dose: Not Given Prednisolone Sodium Phosphate (Orapred (15 Mg/5 Ml) Oral Solution -) 10 mg PEG DAILY [facility] Stop: 02/25/18 10:01 Senna (Senna Oral Solution -) 8.[address] [facility] Last Admin: 02/24/18 21:27 Dose: Not Given Sertraline HCl (Zoloft -) 25 mg PO DAILY [facility] Tamsulosin HCl (Flomax -) 0.4 mg PO DAILY@0830 [facility] Trimethoprim/Sulfamethoxazole (Bactrim Oral Suspension -) 40 mg GT DAILY [facility] - Objective Vital Signs: Vital Signs Temperature 99.2 F 02/25/18 06:00 Pulse Rate 65 02/25/18 06:00 Respiratory Rate 16 02/25/18 06:00 Blood Pressure 116/51 02/25/18 06:00 O2 Sat by Pulse Oximetry (%) 100 02/24/18 23:00 Constitutional: Yes: Thin Eyes: Yes: WNL HENT: Yes: WNL Neck: Yes: WNL Cardiovascular: Yes: Murmur, S1, S2 Respiratory: Yes: Diminished, Mechanically Ventilated Gastrointestinal: Yes: Soft, Other (PEG tube in place; no dischartge) Genitourinary: No: Anuria Musculoskeletal: Yes: Muscle Weakness Edema: Yes Edema: LLE: Trace, RLE: Trace Peripheral Pulses WNL: No Peripheral Pulses: Left Doralis Pedis: 1+, Right Dorsalis Pedis: 1+ Neurological: Yes: Weakness Labs: CBC, BMP 02/25/18 05:30 02/25/18 05:30 INR, PTT INR 1.13 (0.82-1.09) 02/16/18 22:40 Abnormal Lab Results 02/22/18 02/27/18 02/27/18 15:30 05:30 05:30 RBC 3.02 L Hgb 9.1 L Hct 27.0 L RDW 18.2 H Sodium 148 H Potassium 3.3 L Chloride 116 H BUN 139 H* D Creatinine 2.4 H Calcium 7.6 L AST 13 L Total Protein 5.2 L Albumin 2.0 L Crossmatch See Detail - ....Imaging Chest X-ray: Image Reviewed (bibasilar congestion unchanged) EKG: Image Reviewed (NSR with sinus arrhythmia) Problem List - Problems (1) Anemia Assessment/Plan: s/p EGD, cauterization, and PRBCs. Hb 9.2 Code(s): D64.9 - ANEMIA, UNSPECIFIED Qualifiers: Anemia type: due to chronic kidney disease Chronic kidney disease stage: unspecified stage Qualified Code(s): N18.9 - Chronic kidney disease, unspecified; D63.1 - Anemia in chronic kidney disease (2) Chronic respiratory failure Assessment/Plan: Ventilator dependent; on trach. Code(s): J96.10 - CHRONIC RESPIRATORY FAILURE, UNSP W HYPOXIA OR HYPERCAPNIA Qualifiers: Respiratory failure complication: unspecified whether with hypoxia or hypercapnia Qualified Code(s): J96.10 - Chronic respiratory failure, unspecified whether with hypoxia or hypercapnia (3) Hematuria Code(s): R31.9 - HEMATURIA, UNSPECIFIED (4) Hypotension Code(s): I95.9 - HYPOTENSION, UNSPECIFIED (5) PAF (paroxysmal atrial fibrillation) Assessment/Plan: EKG 02/23/18: AF with RVR (HR 150 bpm); now has HR in 80s bpm. On diltiazem IV drip due to paroxysmal AF with RVR. Would restart metoprolol at low dose (12.5 mg bid), and then titrate off diltiazem. TSH 3.59 recently. Code(s): I48.0 - PAROXYSMAL ATRIAL FIBRILLATION (6) S/P percutaneous endoscopic gastrostomy (PEG) tube placement Code(s): Z93.1 - GASTROSTOMY STATUS (7) Acute on chronic diastolic CHF (congestive heart failure) Code(s): I50.33 - ACUTE ON CHRONIC DIASTOLIC (CONGESTIVE) HEART FAILURE (8) Sinus bradycardia Code(s): R00.1 - BRADYCARDIA, UNSPECIFIED (9) TBI (traumatic brain injury) Code(s): S06.9X9A - UNSP INTRACRANIAL INJURY W LOC OF UNSP DURATION, INIT Qualifiers: Encounter type: sequela Loss of consciousness presence/duration: with LOC of unspecified duration Qualified Code(s): S06.9X9S - Unspecified intracranial injury with loss of consciousness of unspecified duration, sequela (10) Severe mitral regurgitation Code(s): I34.0 - NONRHEUMATIC MITRAL (VALVE) INSUFFICIENCY (11) Hypokalemia Assessment/Plan: Replete; and kepp K+ 4-4.5 F/u Mg, and keep 2-2.3 Keep PO4 2.5-3.5 Code(s): E87.6 - HYPOKALEMIA Assessment/Plan CCU time spent: 40 minutes
[2018-02-25] MEDS ORDERED: KCL 10 MEQ IVPB 10 MEQ/100 ML INFUS.BAG IVPB SCH ×2 (07:30→09:15)
--- NOTE | 2018-02-25 07:41 | PN ---
Physical Exam: SUBJECTIVE: Patient seen and examined at bedside. Pt uncommunicative. OBJECTIVE: Vital Signs Period Temp Pulse Resp BP Sys/Wills Pulse Ox Last 24 Hr 98.0 F-99.6 F 65-144 14-18 96-132/51-72 98-100 Gen: uncommunicative. No apparent distress HEENT: NCAT Neck: trach tube in place. No blood at stoma. functioning well Cardio: irregular, tachycardic, norm s1s2, no m/r/g appreciated Lungs: coarse breath sounds anteriorly Abd: soft, less distended. No blood at peg site Ext: 1+ pulses, no edema Laboratory Results - last 24 hr 02/18/18 02/22/18 02/24/18 06:20 15:30 05:50 WBC RBC Hgb Hct MCV MCH MCHC RDW Plt Count MPV Absolute Neuts (auto) Total Counted Neutrophils % Neutrophils % (Manual) Band Neutrophils % Lymphocytes % Lymphocytes % (Manual) Monocytes % Monocytes % (Manual) Eosinophils % Basophils % Nucleated RBC % Hypochromia Platelet Estimate Polychromasia Anisocytosis Microcytosis Macrocytosis Ovalocytes Bement Cells Sodium 149 H Potassium 3.4 L Chloride 113 H Carbon Dioxide 25 Anion Gap 11 BUN 197 H* Creatinine 2.7 H Creat Clearance w eGFR 22.57 POC Glucometer Random Glucose 261 H D Calcium 8.0 L Total Bilirubin 0.4 D AST 22 ALT 66 D Alkaline Phosphatase 46 D Total Protein 5.3 L Albumin 2.0 L Beta Globulins 0.9 FABIAN & SPEP Interp Total Protein (FABIAN) 5.7 L Albumin (FABIAN) 2.3 L Albumin/Globulin (FABIAN) 0.7 Wphxv-2-Ycrnohmfm FABIAN 0.4 Ijtck-3-Lcqqerzfk FABIAN 0.6 Gamma Globulins (FABIAN) 1.5 FABIAN M-Osbaldo Not observed FABIAN Comments IEP IgG 1257 IEP IgA 510 H IEP IgM 45 Blood Type O POSITIVE Antibody Screen Negative Crossmatch See Detail 02/24/18 02/24/18 02/24/18 11:43 15:30 17:45 WBC 11.7 H RBC 2.74 L Hgb 8.1 L D Hct 24.3 L D MCV 88.6 MCH 29.6 MCHC 33.4 RDW 16.6 H Plt Count 169 MPV 10.6 Absolute Neuts (auto) 10.8 Total Counted 100 Neutrophils % 92.5 H D Neutrophils % (Manual) 84.0 H Band Neutrophils % 6.0 Lymphocytes % 6.1 L D Lymphocytes % (Manual) 9.0 D Monocytes % 1.2 L D Monocytes % (Manual) 1 L Eosinophils % 0.1 D Basophils % 0.1 Nucleated RBC % 0 Hypochromia 3+ Platelet Estimate Adequate Polychromasia 1+ Anisocytosis 2+ Microcytosis 1+ Macrocytosis 2+ Ovalocytes 1+ Bement Cells 1+ Sodium Potassium Chloride Carbon Dioxide Anion Gap BUN Creatinine Creat Clearance w eGFR POC Glucometer 192 232 Random Glucose Calcium Total Bilirubin AST ALT Alkaline Phosphatase Total Protein Albumin Beta Globulins FABIAN & SPEP Interp Total Protein (FABIAN) Albumin (FABIAN) Albumin/Globulin (FABIAN) Qhfgz-0-Yijldhkjt FABIAN Wiwbf-0-Bwylypgzq FABIAN Gamma Globulins (FABIAN) FABIAN M-Osbaldo FABIAN Comments IEP IgG IEP IgA IEP IgM Blood Type Antibody Screen Crossmatch 02/24/18 02/24/18 02/25/18 21:32 22:40 05:30 WBC 13.3 H 11.5 H RBC 2.92 L 2.84 L Hgb 8.5 L 8.4 L Hct 25.8 L 24.7 L MCV 88.2 87.1 MCH 29.0 29.7 MCHC 32.9 34.1 RDW 17.0 H 17.0 H Plt Count 180 148 MPV 11.0 10.6 Absolute Neuts (auto) 9.2 Total Counted Neutrophils % 79.9 Neutrophils % (Manual) Band Neutrophils % Lymphocytes % 14.3 D Lymphocytes % (Manual) Monocytes % 5.7 D Monocytes % (Manual) Eosinophils % 0.0 D Basophils % 0.1 Nucleated RBC % 0 Hypochromia Platelet Estimate Polychromasia Anisocytosis Microcytosis Macrocytosis Ovalocytes Bement Cells Sodium Potassium Chloride Carbon Dioxide Anion Gap BUN Creatinine Creat Clearance w eGFR POC Glucometer [phone] Random Glucose Calcium Total Bilirubin AST ALT Alkaline Phosphatase Total Protein Albumin Beta Globulins FABIAN & SPEP Interp Total Protein (FABIAN) Albumin (FABIAN) Albumin/Globulin (FABIAN) Pfwiz-0-Xpzxkgezq FABIAN Bpfcg-3-Ksijztgvt FABIAN Gamma Globulins (FABIAN) FABIAN M-Osbaldo FABIAN Comments IEP IgG IEP IgA IEP IgM Blood Type Antibody Screen Crossmatch 02/25/18 05:30 WBC RBC Hgb Hct MCV MCH MCHC RDW Plt Count MPV Absolute Neuts (auto) Total Counted Neutrophils % Neutrophils % (Manual) Band Neutrophils % Lymphocytes % Lymphocytes % (Manual) Monocytes % Monocytes % (Manual) Eosinophils % Basophils % Nucleated RBC % Hypochromia Platelet Estimate Polychromasia Anisocytosis Microcytosis Macrocytosis Ovalocytes Alexander Cells Sodium 150 H Potassium 3.0 L Chloride 116 H Carbon Dioxide 23 Anion Gap 11 BUN Creatinine 2.5 H Creat Clearance w eGFR 24.67 POC Glucometer Random Glucose 176 H D Calcium 7.9 L Total Bilirubin 0.4 AST 15 D ALT 50 D Alkaline Phosphatase 41 L Total Protein 5.2 L Albumin 2.0 L Beta Globulins FABIAN & SPEP Interp Total Protein (FABIAN) Albumin (FABIAN) Albumin/Globulin (FABIAN) Ltgag-9-Hhsqjpwiu FABIAN Bwigb-3-Nunhwgame FABIAN Gamma Globulins (FABIAN) FABIAN M-Osbaldo FABIAN Comments IEP IgG IEP IgA IEP IgM Blood Type Antibody Screen Crossmatch Active Medications Generic Name Dose Route Start Last Admin Trade Name Freq PRN Reason Stop Dose Admin Acetaminophen 650 mg 02/24/18 20:32 Tylenol - PO Q4H PRN FEVER Artificial Tears 2 drop 02/24/18 22:00 02/24/18 21:41 Artificial Tears OU 2 drop BID LILIA Administration Atorvastatin Calcium 10 mg 02/24/18 22:00 02/24/18 21:26 Lipitor - GT Not Given HS LILIA Bacitracin 1 applic 02/24/18 22:00 02/25/18 06:17 Bacitracin - TP 1 applic TID LILIA Administration Chlorhexidine Gluconate 1 applic 02/24/18 22:00 02/24/18 21:26 Hibiclens For Decolonization - TP 1 applic HS LILIA Administration Collagenase 1 applic 02/25/18 10:00 Santyl - TP DAILY LILIA Diltiazem HCl 20 mg 02/24/18 20:32 Cardizem Injection - IVPUSH Q4H PRN TACHYCARDIA Docusate Sodium 100 mg 02/24/18 20:32 Colace Liquid - PO DAILY PRN CONSTIPATION Ferrous Sulfate 300 mg 02/25/18 10:00 Feosol GT DAILY LILIA Dextrose/Sodium Chloride 20 meq in 1,000 mls @ 75 mls/hr 02/24/18 20:45 02/24 21:00 D5-1/4ns+20 Meq Kcl - IV 75 mls/hr ASDIR LILIA Administration Piperacillin Sod/Tazobactam 50 mls @ 100 mls/hr 02/25/18 02:00 02/25/18 01:23 Sod 2.25 gm/ Dextrose IVPB 100 mls/hr Q8H-IV LILIA Administration Protocol Pantoprazole Sodium 160 mg/ 290 mls @ 14.5 mls/hr 02/25/18 13:00 Dextrose IVPB Q20H LILIA Potassium Chloride 10 meq in 100 mls @ 100 mls/hr 02/25/18 07:30 Potassium Chloride 10 Meq Premix Ivpb - IVPB 02/25/18 08:29 Q60M LILIA Insulin Aspart 1 vial 02/24/18 22:00 02/25/18 06:14 Novolog Vial Sliding Scale - SQ 4 units ACHS LILIA Administration Protocol Insulin Detemir 20 units 02/24/18 22:00 02/24/18 21:44 Levemir Vial SQ 20 units HS LILIA Administration Levothyroxine Sodium 37.5 mcg 02/25/18 07:00 Synthroid - PEG DAILY@0700 [facility] Mupirocin 1 applic 02/24/18 22:00 02/24/18 21:56 Bactroban Ointment (For Decolonization) - NS 03/01/18 21:59 1 applic BID LILIA Administration Non-Formulary Medication 1 each 02/25/18 10:00 Non-Formulary Med GT DAILY [facility] Oxybutynin Chloride 5 mg 02/24/18 22:00 02/24/18 21:26 Ditropan - NGT Not Given BID [facility] Prednisolone Sodium Phosphate 10 mg 02/25/18 10:00 Orapred (15 Mg/5 Ml) Oral Solution - PEG 02/25/18 10:01 DAILY [facility] Senna 8.8 mg 02/24/18 22:00 02/24/18 21:27 Senna Oral Solution - PO Not Given HS [facility] Sertraline HCl 25 mg 02/25/18 10:00 Zoloft - PO DAILY [facility] Tamsulosin HCl 0.4 mg 02/25/18 08:30 Flomax - PO DAILY@0830 [facility]ILIA Trimethoprim/Sulfamethoxazole 40 mg 02/25/18 10:00 Bactrim Oral Suspension - GT DAILY [facility] ASSESSMENT/PLAN: Pt is an 87 y/o M with PMH significant for 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 Pt is admitted to Med-Surg. #?GIB -fobt pos -anemia -counts dropping despite prbcs and epo -possible gi bleed -GI consulted -gastric lavage this afternoon -Pt had a scope sig for bleeding AVM -Per GI: NPO, Continue PPI drip: total of 72 hours. , Hold A/C, No NSAIDs, Monitor H/H and for signs of active GI bleeding #Abdominal distension -intermittent large volume stools reported -abdomen soft, distended, tympanic -NPO -CTAP neg for volvulus #Acute on chronic resp failure -likely 2/2 aspiration PNA -at baseline vent settings: AC Tv 450, RR 14, FiO2 28, PEEP 5 -Initially on Medrol 40. d/c'ed -Prednisone 40 -Pulm on board: poor weaning candidate #Asp PNA -Zosyn -ID on board: rec possible deescalation of Abx by Mon -Sputum culture pos for P aerug. Pseudo fluorescens -Zosyn, Bactrim #Anemia -was transfused 6 PRBCs total -Hb stable last 2 days -Given Epo (02/20/2018) -Heme on board: will give weekly Epo -No obvious active bleed -per son, had negative colonoscopy 2 years ago -1 PRBC today. repeat hb 7.4 #Acute on CKD - Beam Dyer stabilized around 2.6 - BUN up-trending -? etiology. ?steroids vs GIB vs dehydration -Nepro on board: prerenal. Adjusted fluids today #Hypernatremia -fluids modified by nephro -Nephro input appreciated #Thrombophilia - Resolved -plt wnl #DM -Levemir was increased -ISS -glucose continues to be elevated in 150s -titrate Insulin #TBI -s/p trach and PEG -secondary paraplegia #Hypothyroid -c/w synthroid #Incontinence -christopher -flomax -oxybutinin #depression -zoloft #FEN -Not on fluids. Increased flushes given via G-tube -lytes: mild hypoK. Repleting -Nutrition: via G-tube. Nepro #PPx -held in setting of possible bleed #Dispo -med surg Elia Prieto MD PGY-1 IM Visit type - Emergency Visit Emergency Visit: No - New Patient This patient is new to me today: No - Critical Care Critical Care patient: No - Discharge Referral Referred to [facility] Med [facility].C[facility] No
--- NOTE | 2018-02-25 08:32 | PN ---
GI Progress Note Subjective: No melena overnight No acute events - Objective Vital Signs: Vital Signs Temperature 99.2 F 02/25/18 06:00 Pulse Rate 65 02/25/18 08:05 Respiratory Rate 14 02/25/18 08:05 Blood Pressure 116/51 02/25/18 06:00 O2 Sat by Pulse Oximetry (%) 100 02/25/18 08:05 Constitutional: Calm Eyes: No: Sclera Icterus Cardiovascular: Yes: Regular Rate and Rhythm Respiratory: Yes: Diminished (at bases b/l) Gastrointestinal Inspection: Yes: Other (+ G tube in place). No: Distention ...Auscultate: Yes: Normoactive Bowel Sounds ...Palpate: No: Tenderness (No grimacing upon palpation) ...Percussion: No: Tympanitic Edema: No (No LE edema) Labs: CBC, BMP 02/25/18 05:30 02/25/18 05:30 INR, PTT INR 1.13 (0.82-1.09) 02/16/18 22:40 Hepatic Panel Total Bilirubin 0.4 mg/dL (0.2-1.0) 02/25/18 05:30 AST 15 U/L (15-37) D 02/25/18 05:30 ALT 50 U/L (12-78) D 02/25/18 05:30 Alkaline Phosphatase 41 U/L (45-117) L 02/25/18 05:30 Albumin 2.0 g/dl (3.4-5.0) L 02/25/18 05:30 Problem List - Problems (1) Upper GI bleed Assessment/Plan: [place] bleed of the proximal stomach s/p heater probe / epinephrine therapy No overt bleeding Stable H/H Plan: NPO Continue PPI drip: total of 72 hours. Hold A/C No NSAIDs Monitor H/H and for signs of active GI bleeding Code(s): K92.2 - GASTROINTESTINAL HEMORRHAGE, UNSPECIFIED
--- NOTE | 2018-02-25 09:04 | PN ---
Physical Exam: SUBJECTIVE: Patient seen and examined in ICU Non verbal , respond to verbal stimuli,vent dependent , with trachestomy, S/P EGD and Heat probe and epinephrine injection. OBJECTIVE: Vital Signs Period Temp Pulse Resp BP Sys/Wills Pulse Ox Last 24 Hr 98.0 F-99.6 F 65-144 14-18 96-132/51-72 100-100 GENERAL: non verbal , respond to verbal stimuli HEAD: Normal with no signs of trauma. EYES: PERRLA, NECK: Tracheostomy , supple. LUNGS: decreased breath sounds at the bases , no wheezes HEART: Regular rate and rhythm, S1, S2 without murmur, rub or gallop. ABDOMEN: Soft, nontender, nondistended, normoactive bowel sounds, no guarding, no rebound, EXTREMITIES: 2+ pulses, warm, no edema NEUROLOGICAL: non verbal , unable to assess Laboratory Results - last 24 hr 02/18/18 02/22/18 02/24/18 06:20 15:30 05:50 WBC RBC Hgb Hct MCV MCH MCHC RDW Plt Count MPV Absolute Neuts (auto) Total Counted Neutrophils % Neutrophils % (Manual) Band Neutrophils % Lymphocytes % Lymphocytes % (Manual) Monocytes % Monocytes % (Manual) Eosinophils % Basophils % Nucleated RBC % Hypochromia Platelet Estimate Polychromasia Anisocytosis Microcytosis Macrocytosis Ovalocytes [place] Cells Sodium Potassium Chloride Carbon Dioxide Anion Gap BUN 197 H* Creatinine Creat Clearance w eGFR POC Glucometer Random Glucose Calcium Total Bilirubin AST ALT Alkaline Phosphatase Total Protein Albumin Beta Globulins 0.9 FABIAN & SPEP Interp Total Protein (FABIAN) 5.7 L Albumin (FABIAN) 2.3 L Albumin/Globulin (FABIAN) 0.7 Zeaxn-2-Yybnhaszc FABIAN 0.4 Bvnhb-5-Kiorjyreh FABIAN 0.6 Gamma Globulins (FABIAN) 1.5 FABIAN M-Osbaldo Not observed FABIAN Comments IEP IgG 1257 IEP IgA 510 H IEP IgM 45 Blood Type O POSITIVE Antibody Screen Negative Crossmatch See Detail 02/24/18 02/24/18 02/24/18 11:43 15:30 17:45 WBC 11.7 H RBC 2.74 L Hgb 8.1 L D Hct 24.3 L D MCV 88.6 MCH 29.6 MCHC 33.4 RDW 16.6 H Plt Count 169 MPV 10.6 Absolute Neuts (auto) 10.8 Total Counted 100 Neutrophils % 92.5 H D Neutrophils % (Manual) 84.0 H Band Neutrophils % 6.0 Lymphocytes % 6.1 L D Lymphocytes % (Manual) 9.0 D Monocytes % 1.2 L D Monocytes % (Manual) 1 L Eosinophils % 0.1 D Basophils % 0.1 Nucleated RBC % 0 Hypochromia 3+ Platelet Estimate Adequate Polychromasia 1+ Anisocytosis 2+ Microcytosis 1+ Macrocytosis 2+ Ovalocytes 1+ Alexander Cells 1+ Sodium Potassium Chloride Carbon Dioxide Anion Gap BUN Creatinine Creat Clearance w eGFR POC Glucometer 192 232 Random Glucose Calcium Total Bilirubin AST ALT Alkaline Phosphatase Total Protein Albumin Beta Globulins FABIAN & SPEP Interp Total Protein (FABIAN) Albumin (FABIAN) Albumin/Globulin (FABIAN) Rwzus-1-Ahsxjjegz FABIAN Wrhzd-7-Fymwsjffm FABIAN Gamma Globulins (FABIAN) FABIAN M-Osbaldo FABIAN Comments IEP IgG IEP IgA IEP IgM Blood Type Antibody Screen Crossmatch 02/24/18 02/24/18 02/25/18 21:32 22:40 05:30 WBC 13.3 H 11.5 H RBC 2.92 L 2.84 L Hgb 8.5 L 8.4 L Hct 25.8 L 24.7 L MCV 88.2 87.1 MCH 29.0 29.7 MCHC 32.9 34.1 RDW 17.0 H 17.0 H Plt Count 180 148 MPV 11.0 10.6 Absolute Neuts (auto) 9.2 Total Counted Neutrophils % 79.9 Neutrophils % (Manual) Band Neutrophils % Lymphocytes % 14.3 D Lymphocytes % (Manual) Monocytes % 5.7 D Monocytes % (Manual) Eosinophils % 0.0 D Basophils % 0.1 Nucleated RBC % 0 Hypochromia Platelet Estimate Polychromasia Anisocytosis Microcytosis Macrocytosis Ovalocytes [place] Cells Sodium Potassium Chloride Carbon Dioxide Anion Gap BUN Creatinine Creat Clearance w eGFR POC Glucometer [phone] Random Glucose Calcium Total Bilirubin AST ALT Alkaline Phosphatase Total Protein Albumin Beta Globulins FABIAN & SPEP Interp Total Protein (FABIAN) Albumin (FABIAN) Albumin/Globulin (FABIAN) Nohiy-4-Yahtgoxhn FABIAN Wtijr-8-Rcqtqxqzd FABIAN Gamma Globulins (FABIAN) FABIAN M-Osbaldo FABIAN Comments IEP IgG IEP IgA IEP IgM Blood Type Antibody Screen Crossmatch 02/25/18 05:30 WBC RBC Hgb Hct MCV MCH MCHC RDW Plt Count MPV Absolute Neuts (auto) Total Counted Neutrophils % Neutrophils % (Manual) Band Neutrophils % Lymphocytes % Lymphocytes % (Manual) Monocytes % Monocytes % (Manual) Eosinophils % Basophils % Nucleated RBC % Hypochromia Platelet Estimate Polychromasia Anisocytosis Microcytosis Macrocytosis Ovalocytes Alexander Cells Sodium 150 H Potassium 3.0 L Chloride 116 H Carbon Dioxide 23 Anion Gap 11 BUN Creatinine 2.5 H Creat Clearance w eGFR 24.67 POC Glucometer Random Glucose 176 H D Calcium 7.9 L Total Bilirubin 0.4 AST 15 D ALT 50 D Alkaline Phosphatase 41 L Total Protein 5.2 L Albumin 2.0 L Beta Globulins FABIAN & SPEP Interp Total Protein (FABIAN) Albumin (FABIAN) Albumin/Globulin (FABIAN) Uyolq-3-Uwyxuloot FABIAN Ammcg-3-Eeajujknh FABIAN Gamma Globulins (FABIAN) FABIAN M-Osbaldo FABIAN Comments IEP IgG IEP IgA IEP IgM Blood Type Antibody Screen Crossmatch Active Medications Generic Name Dose Route Start Last Admin Trade Name Freq PRN Reason Stop Dose Admin Acetaminophen 650 mg 02/24/18 20:32 Tylenol - PO Q4H PRN FEVER Artificial Tears 2 drop 02/24/18 22:00 02/24/18 21:41 Artificial Tears OU 2 drop BID LILIA Administration Atorvastatin Calcium 10 mg 02/24/18 22:00 02/24/18 21:26 Lipitor - GT Not Given HS LILIA Bacitracin 1 applic 02/24/18 22:00 02/25/18 06:17 Bacitracin - TP 1 applic TID LILIA Administration Chlorhexidine Gluconate 1 applic 02/24/18 22:00 02/24/18 21:26 Hibiclens For Decolonization - TP 1 applic HS LILIA Administration Collagenase 1 applic 02/25/18 10:00 Santyl - TP DAILY LILIA Diltiazem HCl 20 mg 02/24/18 20:32 Cardizem Injection - IVPUSH Q4H PRN TACHYCARDIA Docusate Sodium 100 mg 02/24/18 20:32 Colace Liquid - PO DAILY PRN CONSTIPATION Ferrous Sulfate 300 mg 02/25/18 10:00 Feosol GT DAILY LILIA Dextrose/Sodium Chloride 20 meq in 1,000 mls @ 75 mls/hr 02/24/18 20:45 02/24 21:00 D5-1/4ns+20 Meq Kcl - IV 75 mls/hr ASDIR LILIA Administration Piperacillin Sod/Tazobactam 50 mls @ 100 mls/hr 02/25/18 02:00 02/25/18 01:23 Sod 2.25 gm/ Dextrose IVPB 100 mls/hr Q8H-IV LILIA Administration Protocol Pantoprazole Sodium 160 mg/ 290 mls @ 14.5 mls/hr 02/25/18 13:00 Dextrose IVPB Q20H LILIA Insulin Aspart 1 vial 02/24/18 22:00 02/25/18 06:14 Novolog Vial Sliding Scale - SQ 4 units ACHS LILIA Administration Protocol Insulin Detemir 20 units 02/24/18 22:00 02/24/18 21:44 Levemir Vial SQ 20 units HS LILIA Administration Levothyroxine Sodium 37.5 mcg 02/25/18 07:00 Synthroid - PEG DAILY@0700 [facility] Mupirocin 1 applic 02/24/18 22:00 02/24/18 21:56 Bactroban Ointment (For Decolonization) - NS 03/01/18 21:59 1 applic BID LILIA Administration Non-Formulary Medication 1 each 02/25/18 10:00 Non-Formulary Med GT DAILY [facility] Oxybutynin Chloride 5 mg 02/24/18 22:00 02/24/18 21:26 Ditropan - NGT Not Given BID [facility] Prednisolone Sodium Phosphate 10 mg 02/25/18 10:00 Orapred (15 Mg/5 Ml) Oral Solution - PEG 02/25/18 10:01 DAILY [facility] Senna 8.8 mg 02/24/18 22:00 02/24/18 21:27 Senna Oral Solution - PO Not Given HS [facility] Sertraline HCl 25 mg 02/25/18 10:00 Zoloft - PO DAILY [facility] Tamsulosin HCl 0.4 mg 02/25/18 08:30 Flomax - PO DAILY@0830 [facility] Trimethoprim/Sulfamethoxazole 40 mg 02/25/18 10:00 Bactrim Oral Suspension - GT DAILY [facility] CBC, BMP 02/25/18 05:30 02/25/18 05:30 ASSESSMENT/PLAN: 87 y/o M with PMH significant for 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 Neuro: * Nonverbal , respond to verbal stumili , open his eyes , * Pain control * continue cindy emds zoloft CV: * BP and HR stable * DCHF in no acute exacerbation , no volume over loaded * continue with Cardizem IV. Pulm: * Possible aspirations PNA- (+) sputum cultures pseudomonas * aspiration precautions. * trachea and vented. AC settings RR 14, TV 450, PEEP 5 * Maintain SpO2>90% GI: * UGIB s/p EGD and thermal coagulation. * Bowel rest - NPO * IV meds only * PPI ggt. * monitor H/H now and in AM * transfuse as needed to keep HGb > 8 * PEG in place with no leakage ID: * aspirations PNA with (+) Pseudomonas * Zosyn day 10 * Afebrile and WBC 11.5 * F/U CX * repeat CBC, in AM Heme * Anemia 2/2 UGIB * S/P 2 PRBCS * Monitor H/H * Transfuse as needed to keep Hgb>8 Renal: * KATERIN on CKD , BUN /Cr 197/2.5 likely due to volume loss and upper GI bleed * Hypernatremia 150 - free water def. 2.5 L * Continue to monitor renal function. * IV fluids with caution * Hydration through the G tube once it is usable. * Nephrology consult appreciated. ENDO: * IDDM an hypothyroidism * continue levemir * Synthroid IV 37.5 PEG daily * ISS held as patient is NPO * Will restart when feeding resumes. FEN: * IVF D5-1/2NS with 20 Meq KCL @ 75ml Hr/ * hypokalemia and hypernatremia ; repinished and repeat BMP in AM * NPO for now - bowel rest. Dispo:transfer to med- surg We will continue to follow the patient in ICU. Thank you for this consultative opportunity. Visit type - Emergency Visit Emergency Visit: Yes ED Registration Date: 02/17/18 Care time: The patient presented to the Emergency Department on the above date and was hospitalized for further evaluation of their emergent condition. - New Patient This patient is new to me today: Yes Date on this admission: 02/25/18 - Critical Care Critical Care patient: Yes Total Critical Care Time (in minutes): 35 Critical Care Statement: The care of this patient involved high complexity decision making to prevent further life threatening deterioration of the patient 's condition and/or to evaluate & treat vital organ system(s) failure or risk of failure.
[2018-02-25] MEDS: TAMSULOSIN HCL 0.4 MG CAP.ER.24H (FP) PO SCH (09:05)
[2018-02-25] MEDS: KCL 10 MEQ IVPB 10 MEQ/100 ML INFUS.BAG IVPB SCH ×2 (09:22→12:21)
[2018-02-25] MEDS: ARTIFICIAL TEARS (POLYVINYL ALCOHOL 1.4%) OPTH DROPS OU SCH ×2 (09:23→21:33)
[2018-02-25] MEDS: MUPIROCIN 2% TOPICAL OINTMENT FOR DECOLONIZATION NS SCH ×2 (09:24→21:33)
[2018-02-25] MEDS: SULFAMETHOXAZOLE/TMP 200MG-40MG/5ML GT SCH (09:24)
[2018-02-25] MEDS: SERTRALINE HCL 25 MG TABLET (FP) PO SCH (09:24)
[2018-02-25] MEDS: COLLAGENASE CLOSTRIDIUM HIST. 30 GRAMS TUBE TP SCH (09:26)
[2018-02-25] MEDS ORDERED: prednisoLONE SODIUM PHOSPHATE 15 MG/5 ML ORAL SOLN BOTTLE PEG SCH ×2 (10:00)
--- NOTE | 2018-02-25 11:44 | PN ---
Progress Note, Physician Chief Complaint: Events since my last visit reviewed. The patient in ICU, with bright red bleeding via the G Tube. S/p heater probe and epinephrine. No active bleeding now. Vital signs stable. Childs catheter draining large amounts of urine. 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 Now with UGI bleeding. - Current Medication List Current Medications: Active Medications Acetaminophen (Tylenol -) 650 mg PO Q4H PRN PRN Reason: FEVER Artificial Tears (Artificial Tears) 2 drop OU BID [facility] Last Admin: 02/25/18 09:23 Dose: 2 drop Atorvastatin Calcium (Lipitor -) 10 mg GT HS [facility] Last Admin: 02/24/18 21:26 Dose: Not Given Bacitracin (Bacitracin -) 1 applic TP TID [facility] Last Admin: 02/25/18 06:17 Dose: 1 applic Chlorhexidine Gluconate (Hibiclens For Decolonization -) 1 applic TP HS [facility] Last Admin: 02/24/18 21:26 Dose: 1 applic Collagenase (Santyl -) 1 applic TP DAILY [facility] Last Admin: 02/25/18 09:26 Dose: 1 applic Diltiazem HCl (Cardizem Injection -) 20 mg IVPUSH Q4H PRN PRN Reason: TACHYCARDIA Docusate Sodium (Colace Liquid -) 100 mg PO DAILY PRN PRN Reason: CONSTIPATION Ferrous Sulfate (Feosol) 300 mg GT DAILY [facility] Dextrose/Sodium Chloride (D5-1/4ns+20 Meq Kcl -) 20 meq in 1,000 mls @ 75 mls/ hr IV ASDIR [facility] Last Admin: 02/24/18 21:00 Dose: 75 mls/hr Piperacillin Sod/Tazobactam (Sod 2.25 gm/ Dextrose) 50 mls @ 100 mls/hr IVPB Q8H-IV [facility]; Protocol Last Admin: 02/25/18 09:21 Dose: 100 mls/hr Pantoprazole Sodium 160 mg/ (Dextrose) 290 mls @ 14.5 mls/hr IVPB Q20H [facility] Potassium Chloride (Potassium Chloride 10 Meq Premix Ivpb -) 10 meq in 100 mls @ 100 mls/hr IVPB Q60M [facility] Stop: 02/25/18 10:14 Insulin Aspart (Novolog Vial Sliding Scale -) [address] [facility]; Protocol Last Admin: 02/25/18 06:14 Dose: 4 units Insulin Detemir (Levemir Vial) 20 units SQ [facility] Last Admin: 02/24/18 21:44 Dose: 20 units Levothyroxine Sodium (Synthroid -) 37.5 mcg PEG DAILY@0700 [facility] Mupirocin (Bactroban Ointment (For Decolonization) -) 1 applic NS BID [facility] Stop: 03/01/18 21:59 Last Admin: 02/25/18 09:24 Dose: 1 applic Non-Formulary Medication (Non-Formulary Med) 1 each GT DAILY [facility] Oxybutynin Chloride (Ditropan -) 5 mg NGT BID [facility] Last Admin: 02/24/18 21:26 Dose: Not Given Senna (Senna Oral Solution -) 8.8 mg PO HS [facility] Last Admin: 02/24/18 21:27 Dose: Not Given Sertraline HCl (Zoloft -) 25 mg PO DAILY [facility] Last Admin: 02/25/18 09:24 Dose: Not Given Tamsulosin HCl (Flomax -) 0.4 mg PO DAILY@0830 [facility] Last Admin: 02/25/18 09:05 Dose: Not Given Trimethoprim/Sulfamethoxazole (Bactrim Oral Suspension -) 40 mg GT DAILY [facility] Last Admin: 02/25/18 09:24 Dose: Not Given - Objective Vital Signs: Vital Signs Temperature 99.3 F 02/25/18 10:00 Pulse Rate 74 02/25/18 10:00 Respiratory Rate 14 02/25/18 10:00 Blood Pressure 121/88 02/25/18 10:00 O2 Sat by Pulse Oximetry (%) 100 02/25/18 09:00 Constitutional: Yes: No Distress, Pallor HENT: Yes: Normocephalic Neck: Yes: Trachea Midline Cardiovascular: Yes: S1, S2 Respiratory: Yes: CTA Bilaterally, Diminished, Mechanically Ventilated Gastrointestinal: Yes: Soft, Distention Genitourinary: Yes: Bladder Distention, CVA Tenderness - Left, Childs Present Edema: No Labs: CBC, BMP 02/25/18 05:30 02/25/18 05:30 INR, PTT INR 1.13 (0.82-1.09) 02/16/18 22:40 Problem List - Problems (1) Acute renal failure Code(s): N17.9 - ACUTE KIDNEY FAILURE, UNSPECIFIED (2) Chronic kidney disease, stage 3 Code(s): N18.3 - CHRONIC KIDNEY DISEASE, STAGE 3 (MODERATE) (3) Anemia Code(s): D64.9 - ANEMIA, UNSPECIFIED Qualifiers: Anemia type: due to chronic kidney disease Chronic kidney disease stage: unspecified stage Qualified Code(s): N18.9 - Chronic kidney disease, unspecified; D63.1 - Anemia in chronic kidney disease (4) Chronic respiratory failure Code(s): J96.10 - CHRONIC RESPIRATORY FAILURE, UNSP W HYPOXIA OR HYPERCAPNIA Qualifiers: Respiratory failure complication: unspecified whether with hypoxia or hypercapnia Qualified Code(s): J96.10 - Chronic respiratory failure, unspecified whether with hypoxia or hypercapnia (5) PAF (paroxysmal atrial fibrillation) Code(s): I48.0 - PAROXYSMAL ATRIAL FIBRILLATION (6) A-fib Code(s): I48.91 - UNSPECIFIED ATRIAL FIBRILLATION (7) 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 UGI bleeding, s/p Heater probe. No overt active bleeding now. S/p PRBC transfusion. Acute renal failure superimposed on CKD. The acute renal dysfunction due to sepsis, altered renal hydrodynamics with resultant real hypoperfusion. BUN marginally better. The high BUN from blood in the gut and Steroids. Hypernatremia, due to free water loss. Tolerates the IV fluids. Will continue the same. Blood loss anemia. Suggest: IV fluids to continue. PRBC transfusion. Will give hydration through the G tube once it is usable. Will monitor the renal / electrolytes functions with you. Thank you. Margarita Caban MD
--- NOTE | 2018-02-25 11:46 | EKG ---
Test Reason : Blood Pressure : / mmHG Vent. Rate : 062 BPM Atrial Rate : 062 BPM P-R Int : 000 ms QRS Dur : 066 ms QT Int : 432 ms P-R-T Axes : 057 027 053 degrees QTc Int : 438 ms NORMAL SINUS RHYTHM WITH SINUS ARRHYTHMIA LOW VOLTAGE QRS SEPTAL INFARCT (CITED ON OR BEFORE 24-FEB-2018) ABNORMAL ECG WHEN COMPARED WITH ECG OF 24-FEB-2018 10:53, PREVIOUS ECG HAS UNDETERMINED RHYTHM, NEEDS REVIEW Confirmed by SYLVIE MYERS MD ([id number]) on 02/25/2018 11:46:15 AM Referred By: JEFFREY CONWAY Confirmed By:SYLVIE MYERS MD
[2018-02-25] MEDS ORDERED: HEMOQUE TEST 1 EACH EACH ONE ×2 (12:20→21:36)
--- NOTE | 2018-02-25 12:44 | PN ---
Teaching Attending Note Name of Resident: Peter Dejesus ATTENDING PHYSICIAN STATEMENT I saw and evaluated the patient. I reviewed the resident's note and discussed the case with the resident. I agree with the resident's findings and plan as documented. SUBJECTIVE: Patient seen and examined in the ICU. Vented, poorly responsive. 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 s/p heater probe / epinephrine therapy Intake & Output 02/22/18 02/23/18 02/24/18 02/25/18 23:59 23:59 23:59 23:59 Intake Total 50 3450 3008 866 Output Total 900 1800 1100 1200 Balance -850 1650 1908 -334 Weight 146 lb 12.8 oz 145 lb 6.4 oz 147 lb 9.6 oz 136 lb 8 oz Last Vital Signs Temp Pulse Resp BP Pulse Ox 99.3 F 58 L 16 115/59 100 02/25/18 10:00 02/25/18 12:00 02/25/18 12:00 02/25/18 12:00 02/25/18 09:00 Active Medications Acetaminophen (Tylenol -) 650 mg PO Q4H PRN PRN Reason: FEVER Artificial Tears (Artificial Tears) 2 drop OU BID [facility] Last Admin: 02/25/18 09:23 Dose: 2 drop Atorvastatin Calcium (Lipitor -) 10 mg GT HS [facility] Last Admin: 02/24/18 21:26 Dose: Not Given Bacitracin (Bacitracin -) 1 applic TP TID [facility] Last Admin: 02/25/18 06:17 Dose: 1 applic Chlorhexidine Gluconate (Hibiclens For Decolonization -) 1 applic TP HS [facility] Last Admin: 02/24/18 21:26 Dose: 1 applic Collagenase (Santyl -) 1 applic TP DAILY [facility] Last Admin: 02/25/18 09:26 Dose: 1 applic Diltiazem HCl (Cardizem Injection -) 20 mg IVPUSH Q4H PRN PRN Reason: TACHYCARDIA Docusate Sodium (Colace Liquid -) 100 mg PO DAILY PRN PRN Reason: CONSTIPATION Ferrous Sulfate (Feosol) 300 mg GT DAILY [facility] Dextrose/Sodium Chloride (D5-1/4ns+20 Meq Kcl -) 20 meq in 1,000 mls @ 75 mls/ hr IV ASDIR [facility] Last Admin: 02/24/18 21:00 Dose: 75 mls/hr Piperacillin Sod/Tazobactam (Sod 2.25 gm/ Dextrose) 50 mls @ 100 mls/hr IVPB Q8H-IV [facility]; Protocol Last Admin: 02/25/18 09:21 Dose: 100 mls/hr Pantoprazole Sodium 160 mg/ (Dextrose) 290 mls @ 14.5 mls/hr IVPB Q20H [facility] Potassium Chloride (Potassium Chloride 10 Meq Premix Ivpb -) 10 meq in 100 mls @ 100 mls/hr IVPB Q60M [facility] Stop: 02/25/18 10:14 Insulin Aspart (Novolog Vial Sliding Scale -) 1 vial SQ [facility]; Protocol Last Admin: 02/25/18 12:26 Dose: 4 units Insulin Detemir (Levemir Vial) 20 units SQ [facility] Last Admin: 02/24/18 21:44 Dose: 20 units Levothyroxine Sodium (Synthroid -) 37.5 mcg PEG DAILY@0700 [facility] Mupirocin (Bactroban Ointment (For Decolonization) -) 1 applic NS BID [facility] Stop: 03/01/18 21:59 Last Admin: 02/25/18 09:24 Dose: 1 applic Non-Formulary Medication (Non-Formulary Med) 1 each GT DAILY [facility] Oxybutynin Chloride (Ditropan -) 5 mg NGT BID [facility] Last Admin: 02/24/18 21:26 Dose: Not Given Senna (Senna Oral Solution -) 8.8 mg PO [facility] Last Admin: 02/24/18 21:27 Dose: Not Given Sertraline HCl (Zoloft -) 25 mg PO DAILY [facility] Last Admin: 02/25/18 09:24 Dose: Not Given Tamsulosin HCl (Flomax -) 0.4 mg PO DAILY@0830 [facility] Last Admin: 02/25/18 09:05 Dose: Not Given Trimethoprim/Sulfamethoxazole (Bactrim Oral Suspension -) 40 mg GT DAILY [facility] Last Admin: 02/25/18 09:24 Dose: Not Given Gen: vented, poorly responsive Heart: RRR Lung: decreased breath sounds at the bases Abd: soft, nontender Ext: no edema Laboratory Results - last 24 hr 02/18/18 02/22/18 02/24/18 06:20 15:30 15:30 WBC 11.7 H RBC 2.74 L Hgb 8.1 L D Hct 24.3 L D MCV 88.6 MCH 29.6 MCHC 33.4 RDW 16.6 H Plt Count 169 MPV 10.6 Absolute Neuts (auto) 10.8 Total Counted 100 Neutrophils % 92.5 H D Neutrophils % (Manual) 84.0 H Band Neutrophils % 6.0 Lymphocytes % 6.1 L D Lymphocytes % (Manual) 9.0 D Monocytes % 1.2 L D Monocytes % (Manual) 1 L Eosinophils % 0.1 D Basophils % 0.1 Nucleated RBC % 0 Hypochromia 3+ Platelet Estimate Adequate Polychromasia 1+ Anisocytosis 2+ Microcytosis 1+ Macrocytosis 2+ Ovalocytes 1+ Webb Cells 1+ Sodium Potassium Chloride Carbon Dioxide Anion Gap BUN Creatinine Creat Clearance w eGFR POC Glucometer Random Glucose Calcium Magnesium Total Bilirubin AST ALT Alkaline Phosphatase Total Protein Albumin Beta Globulins 0.9 FABIAN & SPEP Interp Total Protein (FABIAN) 5.7 L Albumin (FABIAN) 2.3 L Albumin/Globulin (FABIAN) 0.7 Mvpsw-3-Fhhqwyteh FABIAN 0.4 Fbwhp-9-Bzxpstvku FABIAN 0.6 Gamma Globulins (FABIAN) 1.5 FABIAN M-Osbaldo Not observed FABIAN Comments IEP IgG 1257 IEP IgA 510 H IEP IgM 45 Blood Type O POSITIVE Antibody Screen Negative Crossmatch See Detail 02/24/18 02/24/18 02/24/18 17:45 21:32 22:40 WBC 13.3 H RBC 2.92 L Hgb 8.5 L Hct 25.8 L MCV 88.2 MCH 29.0 MCHC 32.9 RDW 17.0 H Plt Count 180 MPV 11.0 Absolute Neuts (auto) Total Counted Neutrophils % Neutrophils % (Manual) Band Neutrophils % Lymphocytes % Lymphocytes % (Manual) Monocytes % Monocytes % (Manual) Eosinophils % Basophils % Nucleated RBC % Hypochromia Platelet Estimate Polychromasia Anisocytosis Microcytosis Macrocytosis Ovalocytes Alexander Cells Sodium Potassium Chloride Carbon Dioxide Anion Gap BUN Creatinine Creat Clearance w eGFR POC Glucometer [phone] Random Glucose Calcium Magnesium Total Bilirubin AST ALT Alkaline Phosphatase Total Protein Albumin Beta Globulins FABIAN & SPEP Interp Total Protein (FABIAN) Albumin (FABIAN) Albumin/Globulin (FABIAN) Dbbwa-8-Swekcfzui FABIAN Kribc-0-Mikbjmobi FABIAN Gamma Globulins (FABIAN) FABIAN M-Osbaldo FABIAN Comments IEP IgG IEP IgA IEP IgM Blood Type Antibody Screen Crossmatch 02/25/18 02/25/18 02/25/18 05:22 05:30 05:30 WBC 11.5 H RBC 2.84 L Hgb 8.4 L Hct 24.7 L MCV 87.1 MCH 29.7 MCHC 34.1 RDW 17.0 H Plt Count 148 MPV 10.6 Absolute Neuts (auto) 9.2 Total Counted Neutrophils % 79.9 Neutrophils % (Manual) Band Neutrophils % Lymphocytes % 14.3 D Lymphocytes % (Manual) Monocytes % 5.7 D Monocytes % (Manual) Eosinophils % 0.0 D Basophils % 0.1 Nucleated RBC % 0 Hypochromia Platelet Estimate Polychromasia Anisocytosis Microcytosis Macrocytosis Ovalocytes Alexander Cells Sodium 150 H Potassium 3.0 L Chloride 116 H Carbon Dioxide 23 Anion Gap 11 BUN 197 H* Creatinine 2.5 H Creat Clearance w eGFR 24.67 POC Glucometer [phone] Random Glucose 176 H D Calcium 7.9 L Magnesium Total Bilirubin 0.4 AST 15 D ALT 50 D Alkaline Phosphatase 41 L Total Protein 5.2 L Albumin 2.0 L Beta Globulins FABIAN & SPEP Interp Total Protein (FABIAN) Albumin (FABIAN) Albumin/Globulin (FABIAN) Mnlnj-9-Nggdtuupn FABIAN Jdapl-6-Njbzcdjgx FABIAN Gamma Globulins (FABIAN) FABIAN M-Osbaldo FABIAN Comments IEP IgG IEP IgA IEP IgM Blood Type Antibody Screen Crossmatch 02/25/18 02/25/18 06:00 12:25 WBC RBC Hgb Hct MCV MCH MCHC RDW Plt Count MPV Absolute Neuts (auto) Total Counted Neutrophils % Neutrophils % (Manual) Band Neutrophils % Lymphocytes % Lymphocytes % (Manual) Monocytes % Monocytes % (Manual) Eosinophils % Basophils % Nucleated RBC % Hypochromia Platelet Estimate Polychromasia Anisocytosis Microcytosis Macrocytosis Ovalocytes Alexander Cells Sodium Potassium Chloride Carbon Dioxide Anion Gap BUN Creatinine Creat Clearance w eGFR POC Glucometer [phone] Random Glucose Calcium Magnesium 2.0 Total Bilirubin AST ALT Alkaline Phosphatase Total Protein Albumin Beta Globulins FABIAN & SPEP Interp Total Protein (FABIAN) Albumin (FABIAN) Albumin/Globulin (FABIAN) Vrqkr-2-Lkwzmognn FABIAN Xhejo-8-Twfhpsysa FABIAN Gamma Globulins (FABIAN) FABIAN M-Osbaldo FABIAN Comments IEP IgG IEP IgA IEP IgM Blood Type Antibody Screen Crossmatch A/P Chronic Respiratory Failure Pneumonia h/o Traumatic Brain Injury Functional Quadriplegia Acute on Chronic Renal Failure Atrial Fibrillation DM Dementia - Follow H&H - Normal transfusion thresholds - antibiotics per ID - Monitor off steroids - continue volume assist control - poor candidate for weaning due to poor mental status - enteral feeds when OK by GI - DVT/GI prophylaxis Dr Lr Critical care time spent in reviewing chart, evaluating patient and formulating plan - 36 minutes.
[2018-02-25] MEDS: PANTOPRAZOLE SODIUM 160 MG in DEXTROSE 5%-WATER - 290 ML IVPB SCH (14:37)
--- NOTE | 2018-02-25 14:41 | PN ---
Progress Note (short form) - Note Progress Note: Pt seen and examined chart reviewed s/p EGD, now in ICU unable to obtain about ROS Constitutional: Yes: Vented Eyes: Yes: Conjunctiva Clear HENT: Yes: Other (vented) Cardiovascular: Yes: Tachycardia Respiratory: Yes: Other (vent-dependant) Gastrointestinal: Yes: +PEG Last Vital Signs Temp Pulse Resp BP Pulse Ox 98.8 F 70 21 106/57 95 02/19/18 14:50 02/19/18 14:50 02/19/18 16:14 02/19/18 14:50 02/19/18 02:11 CBC, BMP 02/19/18 06:35 02/19/18 06:35 Current Medications Generic Name Dose Route Start Last Admin Trade Name Freq PRN Reason Stop Dose Admin Acetaminophen 650 mg 02/17/18 17:28 Tylenol - PO Q4H PRN FEVER Artificial Tears 2 drop 02/17/18 22:00 02/19/18 09:30 Artificial Tears OU 2 drop BID [facility] Administration Atorvastatin Calcium 10 mg 02/17/18 22:00 02/18/18 23:11 Lipitor - GT 10 mg HS [facility] Administration Bacitracin 1 applic 02/17/18 22:00 02/19/18 06:25 Bacitracin - TP 1 applic TID [facility] Administration Chlorhexidine Gluconate 1 applic 02/17/18 22:00 Hibiclens For Decolonization - TP HS [facility] Collagenase 1 applic 02/19/18 16:00 Santyl - TP DAILY [facility] Docusate Sodium 100 mg 02/18/18 10:00 02/19/18 09:40 Colace - PO Not Given DAILY [facility] Ferrous Sulfate 300 mg 02/18/18 10:00 02/19/18 09:30 Feosol GT 300 mg DAILY [facility] Administration Piperacillin Sod/Tazobactam 50 mls @ 100 mls/hr 02/18/18 02:00 02/19/18 09:29 Sod 2.25 gm/ Dextrose IVPB 100 mls/hr Q8H-IV [facility] Administration Protocol Insulin Aspart 1 vial 02/19/18 08:16 02/19/18 11:44 Novolog Vial Sliding Scale - SQ 6 units ACHS [facility] Administration Protocol Insulin Detemir 15 units 02/19/18 08:15 Levemir Vial SQ HS [facility] Lactobacillus Acidophilus 1 tab 02/18/18 10:00 02/19/18 09:29 Bacid - GT 1 tab DAILY [facility] Administration Levothyroxine Sodium 37.5 mcg 02/18/18 07:00 02/19/18 06:20 Synthroid - PEG 37.5 mcg DAILY@0700 [facility] Administration Methylprednisolone Sodium Succinate 40 mg 02/18/18 10:00 02/19/18 09:29 Solu-Medrol - IVPUSH 40 mg DAILY [facility] Administration Mupirocin 1 applic 02/17/18 22:00 Bactroban Ointment (For Decolonization) - NS 02/22/18 09:59 BID [facility] Oxybutynin Chloride 5 mg 02/17/18 22:00 02/19/18 09:29 Ditropan - NGT 5 mg BID [facility] Administration Pantoprazole Sodium 40 mg 02/18/18 10:00 02/19/18 09:29 Protonix Iv IVPUSH 40 mg DAILY [facility] Administration Sertraline HCl 25 mg 02/17/18 17:27 02/19/18 09:30 Zoloft - PO 25 mg DAILY [facility] Administration Sucralfate 1 gm 02/19/18 11:00 02/19/18 11:54 Carafate Oral Suspension - PEG 1 gm ACHS [facility] Administration Tamsulosin HCl 0.4 mg 02/18/18 08:30 02/19/18 08:46 Flomax - PO 0.4 mg DAILY@0830 [facility] Administration Anemia Mild thrombocytopenia 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
[2018-02-25] MEDS ORDERED: dilTIAZem HCL 125 MG/25 ML - 25 ML VIAL ONE (15:35)
[2018-02-25] MEDS ORDERED: dilTIAZem HCL 50 MG/10 ML - 10 ML VIAL IVPUSH ONE ×2 (15:45)
--- NOTE | 2018-02-25 15:48 | PN ---
Teaching Attending Note Name of Resident: Elia Prieto ATTENDING PHYSICIAN STATEMENT I saw and evaluated the patient. I reviewed the resident's note and discussed the case with the resident. I agree with the resident's findings and plan as documented with exceptions below SUBJECTIVE: Patient seen and examined. non verbal, opens eyes, unable to assess for ROS. OBJECTIVE: Vital Signs Period Temp Pulse Resp BP Sys/Wills Pulse Ox Last 24 Hr 98.9 F-99.6 F 58-144 14-17 96-131/51-88 100-100 Intake & Output 02/22/18 02/23/18 02/24/18 02/25/18 23:59 23:59 23:59 23:59 Intake Total 50 3450 3008 866 Output Total 900 1800 1100 2000 Balance -850 1650 1908 -1134 Weight 146 lb 12.8 oz 145 lb 6.4 oz 147 lb 9.6 oz 136 lb 8 oz General: lying in bed in no acute distress Chest: decreased effort, limited exam, few rales abdomen:soft, ND, positive bowel sounds, no grimacing on palpation, no voluntary or involuntary guarding or rigidity Extremities: no edema Home Medications Medication Instructions Recorded Acetaminophen [Tylenol] 650 mg PO Q6H PRN 01/21/18 Bacitracin - [Bacitracin Topical 1 applic TP TID 01/21/18 Ointment -] Baclofen 10 mg GT Q8H 01/21/18 [facility] Oil [Venelex 1 applic TP BID 01/21/18 Ointment] Docusate Sodium [Colace -] 100 mg GT ASDIR 01/21/18 Ferrous Sulfate [Feosol] 300 mg GT DAILY 01/21/18 Glycopyrrolate/Formoterol Fum 0 gm IH BID 01/21/18 [Bevespi Aerosphere Inhaler] Heparin - 5,000 unit SQ BID 01/21/18 Hypromellose 0.5% Opth Soln 2 drop OU BID 01/21/18 [Artificial Tears] Insulin Glargine,Hum.rec.anlog 9 units SQ HS 01/21/18 [Lantus Solostar PEN -] Insulin Lispro [Humalog] 0 unit SQ Q6H 01/21/18 L.acidoph,Paracasei, B.lactis 1 each GT DAILY 01/21/18 [Probiotic] Lanolin/Mineral Oil [Eucerin 1 applic TP Q6H 01/21/18 Original Lotion] Levothyroxine Sodium [Synthroid] 37.5 mcg GT BID 01/21/18 Oxybutynin Chloride 5 mg GT BID 01/21/18 Ranitidine [Zantac -] 150 mg GT DAILY 01/21/18 Sertraline HCl [Zoloft] 25 mg GT DAILY 01/21/18 Silver Sulfadiazine 1% Top Cr 1 applic TP DAILY 01/21/18 [Silvadene -] Simethicone 40 mg GT Q6H 01/21/18 Simvastatin 20 mg GT DAILY 01/21/18 Tamsulosin HCl 0.4 mg GT DAILY 01/21/18 Zinc Oxide 1 applic TP BID 01/21/18 Levothyroxine [Synthroid -] 37.5 mcg PEG DAILY@0700 tablet 02/08/18 Sodium Chloride Nasal [place] [[place] 2 spray NS TID spray 02/08/18 [place] Nasal [place] -] Aspirin [ASA -] 81 mg PO DAILY #30 tab.chew 02/09/18 Furosemide Oral Solution [Lasix 40 mg GT BID #300 udc 02/09/18 Oral Solution -] Nut.tx.imp.renal Fxn,Lac-Reduc 1,000 ml PO DAILY #1000 ml 02/09/18 [Nepro Carb Steady] Potassium Chloride 40 meq GT DAILY #40 meq 02/09/18 Active Medications Acetaminophen (Tylenol -) 650 mg PO Q4H PRN PRN Reason: FEVER Artificial Tears (Artificial Tears) 2 drop OU BID [facility] Last Admin: 02/25/18 09:23 Dose: 2 drop Atorvastatin Calcium (Lipitor -) 10 mg GT HS [facility] Last Admin: 02/24/18 21:26 Dose: Not Given Bacitracin (Bacitracin -) 1 applic TP TID [facility] Last Admin: 02/25/18 14:37 Dose: 1 applic Chlorhexidine Gluconate (Hibiclens For Decolonization -) 1 applic TP HS [facility] Last Admin: 02/24/18 21:26 Dose: 1 applic Collagenase (Santyl -) 1 applic TP DAILY [facility] Last Admin: 02/25/18 09:26 Dose: 1 applic Diltiazem HCl (Cardizem Injection -) 20 mg IVPUSH Q4H PRN PRN Reason: TACHYCARDIA Docusate Sodium (Colace Liquid -) 100 mg PO DAILY PRN PRN Reason: CONSTIPATION Ferrous Sulfate (Feosol) 300 mg GT DAILY [facility] Dextrose/Sodium Chloride (D5-1/4ns+20 Meq Kcl -) 20 meq in 1,000 mls @ 75 mls/ hr IV ASDIR [facility] Last Admin: 02/24/18 21:00 Dose: 75 mls/hr Piperacillin Sod/Tazobactam (Sod 2.25 gm/ Dextrose) 50 mls @ 100 mls/hr IVPB Q8H-IV [facility]; Protocol Last Admin: 02/25/18 09:21 Dose: 100 mls/hr Pantoprazole Sodium 160 mg/ (Dextrose) 290 mls @ 14.5 mls/hr IVPB Q20H [facility] Last Admin: 02/25/18 14:37 Dose: 14.5 mls/hr Insulin Aspart (Novolog Vial Sliding Scale -) 1 vial SQ [facility]; Protocol Last Admin: 02/25/18 12:26 Dose: 4 units Insulin Detemir (Levemir Vial) 20 units SQ [facility] Last Admin: 02/24/18 21:44 Dose: 20 units Levothyroxine Sodium (Synthroid -) 37.5 mcg PEG DAILY@0700 [facility] Mupirocin (Bactroban Ointment (For Decolonization) -) 1 applic NS BID [facility] Stop: 03/01/18 21:59 Last Admin: 02/25/18 09:24 Dose: 1 applic Non-Formulary Medication (Non-Formulary Med) 1 each GT DAILY [facility] Oxybutynin Chloride (Ditropan -) 5 mg NGT BID [facility] Last Admin: 02/24/18 21:26 Dose: Not Given Senna (Senna Oral Solution -) 8.8 mg PO HS [facility] Last Admin: 02/24/18 21:27 Dose: Not Given Sertraline HCl (Zoloft -) 25 mg PO DAILY [facility] Last Admin: 02/25/18 09:24 Dose: Not Given Tamsulosin HCl (Flomax -) 0.4 mg PO DAILY@0830 [facility] Last Admin: 02/25/18 09:05 Dose: Not Given Trimethoprim/Sulfamethoxazole (Bactrim Oral Suspension -) 40 mg GT DAILY [facility] Last Admin: 02/25/18 09:24 Dose: Not Given Laboratory Results - last 24 hr 02/22/18 02/24/18 02/24/18 15:30 15:30 17:45 WBC 11.7 H RBC 2.74 L Hgb 8.1 L D Hct 24.3 L D MCV 88.6 MCH 29.6 MCHC 33.4 RDW 16.6 H Plt Count 169 MPV 10.6 Absolute Neuts (auto) 10.8 Total Counted 100 Neutrophils % 92.5 H D Neutrophils % (Manual) 84.0 H Band Neutrophils % 6.0 Lymphocytes % 6.1 L D Lymphocytes % (Manual) 9.0 D Monocytes % 1.2 L D Monocytes % (Manual) 1 L Eosinophils % 0.1 D Basophils % 0.1 Nucleated RBC % 0 Hypochromia 3+ Platelet Estimate Adequate Polychromasia 1+ Anisocytosis 2+ Microcytosis 1+ Macrocytosis 2+ Ovalocytes 1+ Alexander Cells 1+ Sodium Potassium Chloride Carbon Dioxide Anion Gap BUN Creatinine Creat Clearance w eGFR POC Glucometer 232 Random Glucose Calcium Magnesium Total Bilirubin AST ALT Alkaline Phosphatase Total Protein Albumin Blood Type O POSITIVE Antibody Screen Negative Crossmatch See Detail 02/24/18 02/24/18 02/25/18 21:32 22:40 05:22 WBC 13.3 H RBC 2.92 L Hgb 8.5 L Hct 25.8 L MCV 88.2 MCH 29.0 MCHC 32.9 RDW 17.0 H Plt Count 180 MPV 11.0 Absolute Neuts (auto) Total Counted Neutrophils % Neutrophils % (Manual) Band Neutrophils % Lymphocytes % Lymphocytes % (Manual) Monocytes % Monocytes % (Manual) Eosinophils % Basophils % Nucleated RBC % Hypochromia Platelet Estimate Polychromasia Anisocytosis Microcytosis Macrocytosis Ovalocytes Alexander Cells Sodium Potassium Chloride Carbon Dioxide Anion Gap BUN Creatinine Creat Clearance w eGFR POC Glucometer [phone] Random Glucose Calcium Magnesium Total Bilirubin AST ALT Alkaline Phosphatase Total Protein Albumin Blood Type Antibody Screen Crossmatch 02/25/18 02/25/18 02/25/18 05:30 05:30 06:00 WBC 11.5 H RBC 2.84 L Hgb 8.4 L Hct 24.7 L MCV 87.1 MCH 29.7 MCHC 34.1 RDW 17.0 H Plt Count 148 MPV 10.6 Absolute Neuts (auto) 9.2 Total Counted Neutrophils % 79.9 Neutrophils % (Manual) Band Neutrophils % Lymphocytes % 14.3 D Lymphocytes % (Manual) Monocytes % 5.7 D Monocytes % (Manual) Eosinophils % 0.0 D Basophils % 0.1 Nucleated RBC % 0 Hypochromia Platelet Estimate Polychromasia Anisocytosis Microcytosis Macrocytosis Ovalocytes [place] Cells Sodium 150 H Potassium 3.0 L Chloride 116 H Carbon Dioxide 23 Anion Gap 11 BUN 197 H* Creatinine 2.5 H Creat Clearance w eGFR 24.67 POC Glucometer Random Glucose 176 H D Calcium 7.9 L Magnesium 2.0 Total Bilirubin 0.4 AST 15 D ALT 50 D Alkaline Phosphatase 41 L Total Protein 5.2 L Albumin 2.0 L Blood Type Antibody Screen Crossmatch 02/25/18 12:25 WBC RBC Hgb Hct MCV MCH MCHC RDW Plt Count MPV Absolute Neuts (auto) Total Counted Neutrophils % Neutrophils % (Manual) Band Neutrophils % Lymphocytes % Lymphocytes % (Manual) Monocytes % Monocytes % (Manual) Eosinophils % Basophils % Nucleated RBC % Hypochromia Platelet Estimate Polychromasia Anisocytosis Microcytosis Macrocytosis Ovalocytes [place] Cells Sodium Potassium Chloride Carbon Dioxide Anion Gap BUN Creatinine Creat Clearance w eGFR POC Glucometer 202.52810 Random Glucose Calcium Magnesium Total Bilirubin AST ALT Alkaline Phosphatase Total Protein Albumin Blood Type Antibody Screen Crossmatch Microbiology 02/17/18 03:00 Blood - Peripheral Venous Blood Culture - Final NO GROWTH AFTER 5 DAYS INCUBATION 02/17/18 03:00 Blood - Peripheral Venous Blood Culture - Final NO GROWTH AFTER 5 DAYS INCUBATION 02/17/18 10:40 Sputum - Endotrachea Suction/Ventilator Gram Stain - Final 02/17/18 10:40 Sputum - Endotrachea Suction/Ventilator Sputum Culture - Final Pseudomonas Aeruginosa Pseudo Fluorescens/[place] 02/16/18 23:40 Urine - Urine Clean Catch Urine Culture - Final NO GROWTH OBTAINED ASSESSMENT AND PLAN: 87 year old male with a significant past medical history of diastolic heart failure, NIDDM, CKD, and 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 Admitted on 02/17/18 from [facility] chronic respiratory failure and severe anemia with a hg of 5.5 and hypotension. -Acute Upper GI bleed from [place] lesion -Acute blood loss anemia s/p 6 units PRBCs -Acute on chronic vent dependent respiratory failure, likely aspiration PNA. 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 h/h stable. Protonix drip x 72 hours. advance PO per GI. Zosyn day 11, sputum cultures with pseudomonas, WBC stable, monitor for now, discuss with ID about d/cing antibiotics. At baseline vent settings, rapid steroid taper, change to 10 mg tomorrow. Pulmonary input appreciated. Patient with good bowel sounds, had 2 BM yesterday, large, non tender abdomen with improved distension and abdominal xray. Clinically not concerning for Sigmoid volvulus. GI/surgery input noted. CT A/P noted. hematology input noted. Continue Fe supplementation. Monitor renal function, cr overall plateaued, Renal input noted. -Levemir, ISS, tube feeds on hold pending above GI concerns. Continue oxybutynin/flomax/zoloft. DVTPPX with SCDs given recurrent anemia with multiple transfusions and active GI bleed. . Plan discussed with nursing. Plan for transfer to medical floor.
[2018-02-25] MEDS ORDERED: dilTIAZem HCL 50 MG/10 ML - 10 ML VIAL IVPUSH PRN (15:49)
--- NOTE | 2018-02-25 17:40 | PN ---
Progress Note, Physician History of Present Illness: patient awake on vent trach patient underwent endoscopy now in icu - Current Medication List Current Medications: Active Medications Acetaminophen (Tylenol -) 650 mg PO Q4H PRN PRN Reason: FEVER Artificial Tears (Artificial Tears) 2 drop OU BID [facility] Last Admin: 02/25/18 09:23 Dose: 2 drop Atorvastatin Calcium (Lipitor -) 10 mg GT HS [facility] Last Admin: 02/24/18 21:26 Dose: Not Given Bacitracin (Bacitracin -) 1 applic TP TID [facility] Last Admin: 02/25/18 14:37 Dose: 1 applic Chlorhexidine Gluconate (Hibiclens For Decolonization -) 1 applic TP HS [facility] Last Admin: 02/24/18 21:26 Dose: 1 applic Collagenase (Santyl -) 1 applic TP DAILY [facility] Last Admin: 02/25/18 09:26 Dose: 1 applic Diltiazem HCl (Cardizem Injection -) 10 mg IVPUSH Q6H PRN PRN Reason: TACHYCARDIA Docusate Sodium (Colace Liquid -) 100 mg PO DAILY PRN PRN Reason: CONSTIPATION Ferrous Sulfate (Feosol) 300 mg GT DAILY [facility] Dextrose/Sodium Chloride (D5-1/4ns+20 Meq Kcl -) 20 meq in 1,000 mls @ 75 mls/ hr IV ASDIR [facility] Last Admin: 02/24/18 21:00 Dose: 75 mls/hr Piperacillin Sod/Tazobactam (Sod 2.25 gm/ Dextrose) 50 mls @ 100 mls/hr IVPB Q8H-IV [facility]; Protocol Last Admin: 02/25/18 09:21 Dose: 100 mls/hr Pantoprazole Sodium 160 mg/ (Dextrose) 290 mls @ 14.5 mls/hr IVPB Q20H [facility] Last Admin: 02/25/18 14:37 Dose: 14.5 mls/hr Insulin Aspart (Novolog Vial Sliding Scale -) 1 vial SQ [facility]; Protocol Last Admin: 02/25/18 16:46 Dose: 2 units Insulin Detemir (Levemir Vial) 20 units SQ [facility] Last Admin: 02/24/18 21:44 Dose: 20 units Levothyroxine Sodium (Synthroid -) 37.5 mcg PEG DAILY@0700 [facility] Mupirocin (Bactroban Ointment (For Decolonization) -) 1 applic NS BID [facility] Stop: 03/01/18 21:59 Last Admin: 02/25/18 09:24 Dose: 1 applic Non-Formulary Medication (Non-Formulary Med) 1 each GT DAILY [facility] Oxybutynin Chloride (Ditropan -) 5 mg NGT BID [facility] Last Admin: 02/24/18 21:26 Dose: Not Given Senna (Senna Oral Solution -) 8.8 mg PO HS [facility] Last Admin: 02/24/18 21:27 Dose: Not Given Sertraline HCl (Zoloft -) 25 mg PO DAILY [facility] Last Admin: 02/25/18 09:24 Dose: Not Given Tamsulosin HCl (Flomax -) 0.4 mg PO DAILY@0830 [facility] Last Admin: 02/25/18 09:05 Dose: Not Given Trimethoprim/Sulfamethoxazole (Bactrim Oral Suspension -) 40 mg GT DAILY [facility] Last Admin: 02/25/18 09:24 Dose: Not Given - Objective Vital Signs: Vital Signs Temperature 99.3 F 02/25/18 10:00 Pulse Rate 60 02/25/18 14:00 Respiratory Rate 18 02/25/18 17:00 Blood Pressure 114/65 02/25/18 14:00 O2 Sat by Pulse Oximetry (%) 100 02/25/18 09:00 Constitutional: Yes: No Distress, Calm Cardiovascular: Yes: Pulse Irregular, S1, S2 Respiratory: Yes: Mechanically Ventilated, Other Gastrointestinal: Yes: Normal Bowel Sounds, Soft, Other (peg tube in place) Musculoskeletal: Yes: WNL Extremities: Yes: WNL Edema: LLE: Trace, RLE: Trace Labs: CBC, BMP 02/25/18 05:30 02/25/18 05:30 INR, PTT INR 1.13 (0.82-1.09) 02/16/18 22:40 Assessment/Plan Problem List - Problems (1) Anemia Code(s): D64.9 - ANEMIA, UNSPECIFIED (2) Chronic kidney disease, stage 3 Code(s): N18.3 - CHRONIC KIDNEY DISEASE, STAGE 3 (MODERATE) (3) Chronic respiratory failure Code(s): J96.10 - CHRONIC RESPIRATORY FAILURE, UNSP W HYPOXIA OR HYPERCAPNIA Qualifiers: Respiratory failure complication: unspecified whether with hypoxia or hypercapnia Qualified Code(s): J96.10 - Chronic respiratory failure, unspecified whether with hypoxia or hypercapnia (4) PAF (paroxysmal atrial fibrillation) Code(s): I48.0 - PAROXYSMAL ATRIAL FIBRILLATION (5) Renal failure Code(s): N19 - UNSPECIFIED KIDNEY FAILURE Qualifiers: Renal failure chronicity: unspecified chronicity Qualified Code(s): N19 - Unspecified kidney failure (6) Diabetes Code(s): E11.9 - TYPE 2 DIABETES MELLITUS WITHOUT COMPLICATIONS (7) TBI (traumatic brain injury) Code(s): S06.9X9A - UNSP INTRACRANIAL INJURY W LOC OF UNSP DURATION, INIT (8) [id number] kidney injury Code(s): N17.9 - ACUTE KIDNEY FAILURE, UNSPECIFIED; N18.9 - CHRONIC KIDNEY DISEASE, UNSPECIFIED (9) Zxmwy-kw-siatqvm renal failure Code(s): N17.9 - ACUTE KIDNEY FAILURE, UNSPECIFIED; N18.9 - CHRONIC KIDNEY DISEASE, UNSPECIFIED (10) Hypotension Code(s): I95.9 - HYPOTENSION, UNSPECIFIED (11) Hypotension Code(s): I95.9 - HYPOTENSION, UNSPECIFIED 12 gi bleed 13 difuleoy lesion I plan continue zosyn continue monitoring once patient starts orally will restart bactrim watch for bleeding rest continue cc time 40 min
[2018-02-25] MEDS: DILTIAZEM INJECTION 125 MG in DEXTROSE 5%-WATER - 100 ML IVPB SCH (18:41)
[2018-02-25] MEDS ORDERED: LACTATED RINGERS SOLUTION 1,000 ML/1,000 ML INFUS.BAG IV STA (19:41)
[2018-02-25 20:09] LABS: BASO % 0.1 % (0-2.0); EOS % 0.9 % (0-4.5); HEMATOCRIT 27.9 % (35.4-49); HEMOGLOBIN 9.2 GM/dL (11.7-16.9); MCH 29.2 pg (25.7-33.7); MCHC 33.1 g/dl (32.0-35.9); MEAN CELL VOLUME 88.3 fl (80-96); MEAN PLT VOLUME 10.2 fl (7.5-11.1); MONO % 3.4 % (3.8-10.2); NEUT % 87.6 % (42.8-82.8); PLATELET COUNT 183 K/MM3 (134-434); RBC 3.15 M/mm3 (4.00-5.60); RDW 17.9 % (11.9-15.9); WHITE BLOOD COUNT 13.6 K/mm3 (4.0-10.0)
[2018-02-25] MEDS: D5-1/4NS+20 MEQ KCL - 20 MEQ/1,000 ML INFUS.BAG IV SCH (21:32)
[2018-02-25] MEDS: CHLORHEXIDINE GLUCONATE 4% CLEANSER FOR DECOLONIZATION TP SCH (21:34)
[2018-02-25] MEDS: INSULIN (LEVEMIR) 100 UNITS/ML UNITS SQ SCH (22:03)
[2018-02-26] MEDS: PIPERACILLIN/TAZOB 2.25 GM 2.25 GM in DEXTROSE 5%-WATER - 50 ML IVPB SCH ×3 (02:11→17:35)
[2018-02-26] MEDS ORDERED: PIPERACILLIN/TAZOBACTAM 2.25 GM VIAL IVPB ONE ×3 (03:04→17:27)
[2018-02-26] MEDS ORDERED: DEXTROSE 5%-WATER - 50 ML IVPB ONE ×3 (03:05→17:27)
[2018-02-26] MEDS: INSULIN SLIDING SCALE (NOVOLOG) 1 VIAL SQ SCH ×4 (06:05→23:00)
[2018-02-26] MEDS: BACITRACIN 15 GM TUBE TOPICAL OINTMENT TP SCH ×3 (06:05→22:40)
[2018-02-26 06:38] LABS: CHLORIDE 115 mmol/L (98-107); POTASSIUM 3.1 mmol/L (3.5-5.1); SODIUM 149 mmol/L (136-145)
--- NOTE | 2018-02-26 06:44 | PN ---
Physical Exam: SUBJECTIVE: Patient seen and examined in ICU Non verbal , respond to verbal stimuli,vent dependent , with trachestomy, S/P EGD and Heat probe and epinephrine injection. PEG tube has some non bilious lekage adjusted by Dr Maldonado LAMBERT. H/H is stable , HAd one BM with dark old blood. hypokalemic 3.1 replenished OBJECTIVE: Vital Signs Period Temp Pulse Resp BP Sys/Wills Pulse Ox Last 24 Hr 98.7 F-99.7 F 58-132 14-18 96-128/45-98 97-100 GENERAL: non verbal , respond to verbal stimuli HEAD: Normal with no signs of trauma. EYES: PERRLA, NECK: Tracheostomy , supple. LUNGS: decreased breath sounds at the bases , no wheezes HEART: Regular rate and rhythm, S1, S2 without murmur, rub or gallop. ABDOMEN: Soft, nontender, nondistended, normoactive bowel sounds, no guarding, no rebound, EXTREMITIES: 2+ pulses, warm, no edema NEUROLOGICAL: non verbal , unable to assess Laboratory Results - last 24 hr 02/22/18 02/25/18 02/25/18 15:30 05:22 05:30 WBC RBC Hgb Hct MCV MCH MCHC RDW Plt Count MPV Absolute Neuts (auto) Neutrophils % Lymphocytes % Monocytes % Eosinophils % Basophils % Nucleated RBC % Sodium 150 H Potassium 3.0 L Chloride 116 H Carbon Dioxide 23 Anion Gap 11 BUN 197 H* Creatinine 2.5 H Creat Clearance w eGFR 24.67 POC Glucometer 202.27851 Random Glucose 176 H D Calcium 7.9 L Magnesium Total Bilirubin 0.4 AST 15 D ALT 50 D Alkaline Phosphatase 41 L Total Protein 5.2 L Albumin 2.0 L Blood Type O POSITIVE Antibody Screen Negative Crossmatch See Detail 02/25/18 02/25/18 02/25/18 06:00 12:25 16:41 WBC RBC Hgb Hct MCV MCH MCHC RDW Plt Count MPV Absolute Neuts (auto) Neutrophils % Lymphocytes % Monocytes % Eosinophils % Basophils % Nucleated RBC % Sodium Potassium Chloride Carbon Dioxide Anion Gap BUN Creatinine Creat Clearance w eGFR POC Glucometer 202.49723 178.26192 Random Glucose Calcium Magnesium 2.0 Total Bilirubin AST ALT Alkaline Phosphatase Total Protein Albumin Blood Type Antibody Screen Crossmatch 02/25/18 02/25/18 02/26/18 20:01 21:38 05:51 WBC 13.6 H RBC 3.15 L Hgb 9.2 L Hct 27.9 L MCV 88.3 MCH 29.2 MCHC 33.1 RDW 17.9 H Plt Count 183 D MPV 10.2 Absolute Neuts (auto) 11.9 Neutrophils % 87.6 H Lymphocytes % 8.0 D Monocytes % 3.4 L Eosinophils % 0.9 D Basophils % 0.1 Nucleated RBC % 0 Sodium Potassium Chloride Carbon Dioxide Anion Gap BUN Creatinine Creat Clearance w eGFR POC Glucometer [phone] Random Glucose Calcium Magnesium Total Bilirubin AST ALT Alkaline Phosphatase Total Protein Albumin Blood Type Antibody Screen Crossmatch Active Medications Generic Name Dose Route Start Last Admin Trade Name Freq PRN Reason Stop Dose Admin Acetaminophen 650 mg 02/24/18 20:32 Tylenol - PO Q4H PRN FEVER Artificial Tears 2 drop 02/24/18 22:00 02/25/18 21:33 Artificial Tears OU 2 drop BID [facility] Administration Atorvastatin Calcium 10 mg 02/24/18 22:00 02/24/18 21:26 Lipitor - GT Not Given HS [facility] Bacitracin 1 applic 02/24/18 22:00 02/26/18 06:05 Bacitracin - TP 1 applic TID [facility] Administration Chlorhexidine Gluconate 1 applic 02/24/18 22:00 02/25/18 21:34 Hibiclens For Decolonization - TP 1 applic HS [facility] Administration Collagenase 1 applic 02/25/18 10:00 02/25/18 09:26 Santyl - TP 1 applic DAILY [facility] Administration Diltiazem HCl 10 mg 02/25/18 15:49 Cardizem Injection - IVPUSH Q6H PRN TACHYCARDIA Docusate Sodium 100 mg 02/24/18 20:32 Colace Liquid - PO DAILY PRN CONSTIPATION Ferrous Sulfate 300 mg 02/25/18 10:00 Feosol GT DAILY [facility] Dextrose/Sodium Chloride 20 meq in 1,000 mls @ 75 mls/hr 02/24/18 20:45 02/25 21:32 D5-1/4ns+20 Meq Kcl - IV 75 mls/hr ASDIR [facility] Administration Piperacillin Sod/Tazobactam 50 mls @ 100 mls/hr 02/25/18 02:00 02/26/18 02:11 Sod 2.25 gm/ Dextrose IVPB 100 mls/hr Q8H-IV [facility] Administration Protocol Pantoprazole Sodium 160 mg/ 290 mls @ 14.5 mls/hr 02/25/18 13:00 02/25/18 14: 37 Dextrose IVPB 14.5 mls/hr Q20H [facility] Administration Diltiazem HCl 125 mg/ Dextrose 125 mls @ 5 mls/hr 02/25/18 18:00 02/25/18 18: 41 IVPB 5 mg/hr TITR [facility] 5 mls/hr Administration Protocol 5 MG/HR Insulin Aspart 1 vial 02/24/18 22:00 02/26/18 06:05 Novolog Vial Sliding Scale - SQ 2 units ACHS [facility] Administration Protocol Insulin Detemir 20 units 02/24/18 22:00 02/25/18 22:03 Levemir Vial SQ 20 units HS [facility] Administration Levothyroxine Sodium 37.5 mcg 02/25/18 07:00 Synthroid - PEG DAILY@0700 [facility] Mupirocin 1 applic 02/24/18 22:00 02/25/18 21:33 Bactroban Ointment (For Decolonization) - NS 03/01/18 21:59 1 applic BID [facility] Administration Non-Formulary Medication 1 each 02/25/18 10:00 Non-Formulary Med GT DAILY [facility] Oxybutynin Chloride 5 mg 02/24/18 22:00 02/24/18 21:26 Ditropan - NGT Not Given BID [facility] Senna 8.8 mg 02/24/18 22:00 02/24/18 21:27 Senna Oral Solution - PO Not Given HS [facility] Sertraline HCl 25 mg 02/25/18 10:00 02/25/18 09:24 Zoloft - PO Not Given DAILY [facility] Tamsulosin HCl 0.4 mg 02/25/18 08:30 02/25/18 09:05 Flomax - PO Not Given DAILY@0830 [facility] Trimethoprim/Sulfamethoxazole 40 mg 02/25/18 10:00 02/25/18 09:24 Bactrim Oral Suspension - GT Not Given DAILY [facility] ASSESSMENT/PLAN: 87 y/o M with PMH significant for TBI (08/2017) s/p trach and vent dependent, PEG, paraplegia, dCHF, NIDDM, CKD, deaf, blind who presented to ED from [facility] with respiratory failure and severe anemia with hypotension s/p EGD and themal coagulation of UGIB. Neuro: * Nonverbal , respond to verbal stumili , open his eyes , * Pain control * continue cindy meds zoloft CV: -DCHF: in no acute exacerbation , no volume over loaded - Afib * started n CArdezim GTt * discussed with Dr. Sorto. Pt has preserved LV EF and normal LV size. Will start Lopressor 12.5mg BID, as pt has received it in the past and tolerated it well. Pulm: * Possible aspirations PNA- (+) sputum cultures pseudomonas * aspiration precautions. * trachea and vented. AC settings RR 14, TV 450, PEEP 5 * Maintain SpO2>90% * Dc medrol * poor weaning candidate due to mental status * cont abx bactrim and zosyn GI: * UGIB s/p EGD and thermal coagulation. * Bowel rest , flush water through G Tube * start meds through G tube * PPI ggt. stop Sat around 12 * monitor H/H now and in AM * transfuse as needed to keep HGb > 8 * PEG in place with non bilious lekage adjusted by GI Dr Okeefe ID: * aspirations PNA with (+) Pseudomonas * Zosyn day 11 * Afebrile and WBC 11.5 ...13.2 * F/U CX * repeat CBC, in AM Heme * Anemia 2/2 UGIB * S/P 7 PRBCS total * Epogen weekly * Monitor H/H * no active bleeding * Transfuse as needed to keep Hgb>8 Renal: * KATERIN on CKD , BUN /Cr 167/2.5 likely due to volume loss and upper GI bleed * Hypernatremia 150 - free water def. 2.5 L * Continue to monitor renal function. * IV fluids with caution * Hydration through the G tube once it is usable. * Nephrology consult appreciated. ENDO: * IDDM an hypothyroidism * continue levemir * Synthroid IV 37.5 PEG daily * ISS held as patient is NPO * start water through G tube FEN: * IVF D5-1/4NS with 30 Meq KCL @ 75ml Hr/ * hypokalemia and hypernatremia ; repinished K and repeat BMP in AM * N: start meds through [facility] with flush water Dispo:transfer to med- surg total critical time 45 min Visit type - Emergency Visit Emergency Visit: Yes ED Registration Date: 02/17/18 Care time: The patient presented to the Emergency Department on the above date and was hospitalized for further evaluation of their emergent condition. - New Patient This patient is new to me today: No - Critical Care Critical Care patient: Yes Total Critical Care Time (in minutes): 45 Critical Care Statement: The care of this patient involved high complexity decision making to prevent further life threatening deterioration of the patient 's condition and/or to evaluate & treat vital organ system(s) failure or risk of failure.
[2018-02-26 06:48] LABS: ALBUMIN 2.2 g/dl (3.4-5.0); ALK PHOS 51 U/L (45-117); ANION GAP 12 (8-16); BASO % 0.3 % (0-2.0); BILIRUBIN,TOTAL 0.5 mg/dL (0.2-1.0); CO2 22 mmol/L (21-32); CREATININE 2.5 mg/dL (0.7-1.3); GLUCOSE,RANDOM 142 mg/dL (74-106); HEMATOCRIT 28.3 % (35.4-49); HEMOGLOBIN 9.5 GM/dL (11.7-16.9); LYMPH % 13.1 % (8-40); MAGNESIUM 2.1 mg/dL (1.8-2.4); MCH 29.7 pg (25.7-33.7); MCHC 33.4 g/dl (32.0-35.9); MEAN CELL VOLUME 88.7 fl (80-96); MEAN PLT VOLUME 10.8 fl (7.5-11.1); MONO % 4.6 % (3.8-10.2); PHOSPHOROUS 3.6 mg/dL (2.5-4.9); PLATELET COUNT 183 K/MM3 (134-434); RBC 3.19 M/mm3 (4.00-5.60); RDW 18.1 % (11.9-15.9); SGOT/AST 14 U/L (15-37); SGPT/ALT 44 U/L (12-78); TOT PROT 5.7 g/dl (6.4-8.2); WHITE BLOOD COUNT 13.2 K/mm3 (4.0-10.0)
[2018-02-26] MEDS: LEVOTHYROXINE NA 25 MCG TABLET (FP) PEG SCH (06:49)
[2018-02-26 07:42] LABS: BLOOD UREA NITROGEN 167 mg/dL (7-18)
--- NOTE | 2018-02-26 08:43 | PN ---
Progress Note, Physician Chief Complaint: The patient seen in his room in the ICU. No further bleeding. Received PRBC transfusion. Vital signs stable. Childs catheter draining clear urine. 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 Had UGI bleeding, s/p heater probe, PRBC transfusion. Clinical status stable. - Current Medication List Current Medications: Active Medications Acetaminophen (Tylenol -) 650 mg PO Q4H PRN PRN Reason: FEVER Artificial Tears (Artificial Tears) 2 drop OU BID [facility] Last Admin: 02/25/18 21:33 Dose: 2 drop Atorvastatin Calcium (Lipitor -) 10 mg GT HS [facility] Last Admin: 02/24/18 21:26 Dose: Not Given Bacitracin (Bacitracin -) 1 applic TP TID [facility] Last Admin: 02/26/18 06:05 Dose: 1 applic Chlorhexidine Gluconate (Hibiclens For Decolonization -) 1 applic TP HS [facility] Last Admin: 02/25/18 21:34 Dose: 1 applic Collagenase (Santyl -) 1 applic TP DAILY [facility] Last Admin: 02/25/18 09:26 Dose: 1 applic Diltiazem HCl (Cardizem Injection -) 10 mg IVPUSH Q6H PRN PRN Reason: TACHYCARDIA Docusate Sodium (Colace Liquid -) 100 mg PO DAILY PRN PRN Reason: CONSTIPATION Ferrous Sulfate (Feosol) 300 mg GT DAILY [facility] Dextrose/Sodium Chloride (D5-1/4ns+20 Meq Kcl -) 20 meq in 1,000 mls @ 75 mls/ hr IV ASDIR [facility] Last Admin: 02/25/18 21:32 Dose: 75 mls/hr Piperacillin Sod/Tazobactam (Sod 2.25 gm/ Dextrose) 50 mls @ 100 mls/hr IVPB Q8H-IV [facility]; Protocol Last Admin: 02/26/18 02:11 Dose: 100 mls/hr Pantoprazole Sodium 160 mg/ (Dextrose) 290 mls @ 14.5 mls/hr IVPB Q20H [facility] Last Admin: 02/25/18 14:37 Dose: 14.5 mls/hr Diltiazem HCl 125 mg/ Dextrose 125 mls @ 5 mls/hr IVPB TITR [facility]; Protocol Last Admin: 02/25/18 18:41 Dose: 5 mg/hr, 5 mls/hr Potassium Chloride (Potassium Chloride 10 Meq Premix Ivpb -) 10 meq in 100 mls @ 100 mls/hr IVPB Q60M [facility] Stop: 02/26/18 09:29 Insulin Aspart (Novolog Vial Sliding Scale -) 1 vial SQ [facility]; Protocol Last Admin: 02/26/18 06:05 Dose: 2 units Insulin Detemir (Levemir Vial) 20 units SQ [facility] Last Admin: 02/25/18 22:03 Dose: 20 units Levothyroxine Sodium (Synthroid -) 37.5 mcg PEG DAILY@0700 [facility] Last Admin: 02/26/18 06:49 Dose: Not Given Mupirocin (Bactroban Ointment (For Decolonization) -) 1 applic NS BID [facility] Stop: 03/01/18 21:59 Last Admin: 02/25/18 21:33 Dose: 1 applic Non-Formulary Medication (Non-Formulary Med) 1 each GT DAILY [facility] Oxybutynin Chloride (Ditropan -) 5 mg NGT BID [facility] Last Admin: 02/24/18 21:26 Dose: Not Given Senna (Senna Oral Solution -) 8.8 mg PO [facility] Last Admin: 02/24/18 21:27 Dose: Not Given Sertraline HCl (Zoloft -) 25 mg PO DAILY [facility] Last Admin: 02/25/18 09:24 Dose: Not Given Tamsulosin HCl (Flomax -) 0.4 mg PO DAILY@0830 [facility] Last Admin: 02/25/18 09:05 Dose: Not Given Trimethoprim/Sulfamethoxazole (Bactrim Oral Suspension -) 40 mg GT DAILY [facility] Last Admin: 02/25/18 09:24 Dose: Not Given - Objective Vital Signs: Vital Signs Temperature 99.6 F 02/26/18 06:00 Pulse Rate 94 H 02/26/18 06:00 Respiratory Rate 16 02/26/18 06:42 Blood Pressure 101/67 02/26/18 06:00 O2 Sat by Pulse Oximetry (%) 100 02/25/18 21:00 Constitutional: Yes: No Distress, Pallor Eyes: Yes: Conjunctiva Clear HENT: Yes: Atraumatic Neck: Yes: Supple Cardiovascular: Yes: S1, S2 Respiratory: Yes: CTA Bilaterally, Diminished Gastrointestinal: Yes: Normal Bowel Sounds, Distention Genitourinary: Yes: Childs Present Edema: No Labs: CBC, BMP 02/26/18 05:30 02/26/18 05:30 INR, PTT INR 1.13 (0.82-1.09) 02/16/18 22:40 Problem List - Problems (1) Acute renal failure Code(s): N17.9 - ACUTE KIDNEY FAILURE, UNSPECIFIED (2) Chronic kidney disease, stage 3 Code(s): N18.3 - CHRONIC KIDNEY DISEASE, STAGE 3 (MODERATE) (3) Anemia Code(s): D64.9 - ANEMIA, UNSPECIFIED Qualifiers: Anemia type: due to chronic kidney disease Chronic kidney disease stage: unspecified stage Qualified Code(s): N18.9 - Chronic kidney disease, unspecified; D63.1 - Anemia in chronic kidney disease (4) Chronic respiratory failure Code(s): J96.10 - CHRONIC RESPIRATORY FAILURE, UNSP W HYPOXIA OR HYPERCAPNIA Qualifiers: Respiratory failure complication: unspecified whether with hypoxia or hypercapnia Qualified Code(s): J96.10 - Chronic respiratory failure, unspecified whether with hypoxia or hypercapnia (5) PAF (paroxysmal atrial fibrillation) Code(s): I48.0 - PAROXYSMAL ATRIAL FIBRILLATION (6) A-fib Code(s): I48.91 - UNSPECIFIED ATRIAL FIBRILLATION (7) Hemorrhage from tracheostomy stoma Code(s): J95.01 - HEMORRHAGE FROM TRACHEOSTOMY STOMA Assessment/Plan 87 y/o male with: UGI bleeding, s/p Heater probe. No overt active bleeding now. S/p PRBC transfusion. Hgb stable. Acute renal failure superimposed on CKD. The acute renal dysfunction due to sepsis, altered renal hydrodynamics with resultant real hypoperfusion. BUN marginally better. The high BUN from blood in the gut. Azotemia improving. Off steroids now. Hypernatremia, due to free water loss. Slowly resolving. Tolerates the IV fluids. Will continue the same. Hypokalemia...from k loss in urine. Will continue the K supplements. Suggest: IV fluids to continue. Hydration through the G tube once it is usable. Will monitor the renal / electrolytes functions with you. Thank you. Margarita Caban MD
--- NOTE | 2018-02-26 09:30 | PN ---
GI Progress Note Subjective: No acute events Large dark BM overnight Hgb 9.2 last night ---> 9.5 this morning - Objective Vital Signs: Vital Signs Temperature 99.6 F 02/26/18 06:00 Pulse Rate 92 H 02/26/18 08:00 Respiratory Rate 16 02/26/18 08:00 Blood Pressure 98/62 02/26/18 08:00 O2 Sat by Pulse Oximetry (%) 100 02/25/18 21:00 Constitutional: Calm Eyes: No: Sclera Icterus Cardiovascular: Yes: Pulse Irregular (with regular rate) Respiratory: Yes: Diminished (at bases b/l) Gastrointestinal Inspection: No: Distention ...Auscultate: Yes: Normoactive Bowel Sounds ...Palpate: Yes: Other (G-Tube lavaged with 250cc sterile water: clear bilious return. No blood / clots). No: Tenderness (No grimacing upon palpation) ...Percussion: No: Tympanitic Edema: No (No LE edema) Labs: CBC, BMP 02/26/18 05:30 02/26/18 05:30 INR, PTT INR 1.13 (0.82-1.09) 02/16/18 22:40 Hepatic Panel Total Bilirubin 0.5 mg/dL (0.2-1.0) D 02/26/18 05:30 AST 14 U/L (15-37) L 02/26/18 05:30 ALT 44 U/L (12-78) 02/26/18 05:30 Alkaline Phosphatase 51 U/L (45-117) D 02/26/18 05:30 Albumin 2.2 g/dl (3.4-5.0) L 02/26/18 05:30 Problem List - Problems (1) Upper GI bleed Assessment/Plan: Secondary to dieulafoy bleed: proximal stomach s/p heater probe / epinephrine injection therapy No signs of overt bleeding with negative G-Tube lavage . Improved H/H, decreasing BUN. Suspect last night's black BM secondary to old residual OK to start meds through G-Tube and Free water as needed If continued stable without signs of ongoing bleeding, OK to resume tube feeds in AM D/C protonix drip in AM and continue on 40mg BID for 5 days followed by 40mg once daily Avoid NSAIDs Code(s): K92.2 - GASTROINTESTINAL HEMORRHAGE, UNSPECIFIED
[2018-02-26] MEDS: KCL 10 MEQ IVPB 10 MEQ/100 ML INFUS.BAG IVPB SCH ×2 (09:48→11:18)
[2018-02-26] MEDS: ARTIFICIAL TEARS (POLYVINYL ALCOHOL 1.4%) OPTH DROPS OU SCH ×2 (09:49→22:40)
[2018-02-26] MEDS: MUPIROCIN 2% TOPICAL OINTMENT FOR DECOLONIZATION NS SCH ×2 (09:50→22:39)
[2018-02-26] MEDS: COLLAGENASE CLOSTRIDIUM HIST. 30 GRAMS TUBE TP SCH (09:51)
[2018-02-26] MEDS ORDERED: KCL 10 MEQ IVPB 10 MEQ/100 ML INFUS.BAG IVPB SCH (10:30)
[2018-02-26] MEDS: OXYBUTYNIN CHLORIDE 5 MG TABLET NGT SCH ×2 (11:18→22:35)
[2018-02-26] MEDS: SERTRALINE HCL 25 MG TABLET (FP) PO SCH (11:19)
[2018-02-26] MEDS: FERROUS SO4 300 MG/5 ML ORAL SOLN UNIT DOSE CUPS GT SCH (11:19)
--- NOTE | 2018-02-26 11:24 | PN ---
Teaching Attending Note Name of Resident: Peter Dejesus ATTENDING PHYSICIAN STATEMENT I saw and evaluated the patient. I reviewed the resident's note and discussed the case with the resident. I agree with the resident's findings and plan as documented. SUBJECTIVE: Patient seen and examined in the ICU. Vented, poorly responsive. No occult bleeding noted overnight. H&H stable. Intake & Output 02/23/18 02/24/18 02/25/18 02/26/18 23:59 23:59 23:59 23:59 Intake Total 3450 3008 2488.5 636.5 Output Total 1800 1100 2600 500 Balance 1650 1908 -111.5 136.5 Weight 145 lb 6.4 oz 147 lb 9.6 oz 136 lb 8 oz 142 lb 9 oz Last Vital Signs Temp Pulse Resp BP Pulse Ox 99.6 F 92 H 19 98/62 100 02/26/18 06:00 02/26/18 08:00 02/26/18 11:08 02/26/18 08:00 02/25/18 21:00 Active Medications Acetaminophen (Tylenol -) 650 mg PO Q4H PRN PRN Reason: FEVER Artificial Tears (Artificial Tears) 2 drop OU BID [facility] Last Admin: 02/26/18 09:49 Dose: 2 drop Atorvastatin Calcium (Lipitor -) 10 mg GT HS [facility] Last Admin: 02/24/18 21:26 Dose: Not Given Bacitracin (Bacitracin -) 1 applic TP TID [facility] Last Admin: 02/26/18 06:05 Dose: 1 applic Chlorhexidine Gluconate (Hibiclens For Decolonization -) 1 applic TP HS [facility] Last Admin: 02/25/18 21:34 Dose: 1 applic Collagenase (Santyl -) 1 applic TP DAILY [facility] Last Admin: 02/26/18 09:51 Dose: 1 applic Diltiazem HCl (Cardizem Injection -) 10 mg IVPUSH Q6H PRN PRN Reason: TACHYCARDIA Docusate Sodium (Colace Liquid -) 100 mg PO DAILY PRN PRN Reason: CONSTIPATION Ferrous Sulfate (Feosol) 300 mg GT DAILY [facility] Dextrose/Sodium Chloride (D5-1/4ns+20 Meq Kcl -) 20 meq in 1,000 mls @ 75 mls/ hr IV ASDIR [facility] Last Admin: 02/25/18 21:32 Dose: 75 mls/hr Piperacillin Sod/Tazobactam (Sod 2.25 gm/ Dextrose) 50 mls @ 100 mls/hr IVPB Q8H-IV [facility]; Protocol Last Admin: 02/26/18 09:48 Dose: 100 mls/hr Pantoprazole Sodium 160 mg/ (Dextrose) 290 mls @ 14.5 mls/hr IVPB Q20H [facility] Last Admin: 02/25/18 14:37 Dose: 14.5 mls/hr Diltiazem HCl 125 mg/ Dextrose 125 mls @ 5 mls/hr IVPB TITR [facility]; Protocol Last Admin: 02/25/18 18:41 Dose: 5 mg/hr, 5 mls/hr Insulin Aspart (Novolog Vial Sliding Scale -) 1 vial SQ [facility]; Protocol Last Admin: 02/26/18 06:05 Dose: 2 units Insulin Detemir (Levemir Vial) 20 units SQ [facility] Last Admin: 02/25/18 22:03 Dose: 20 units Levothyroxine Sodium (Synthroid -) 37.5 mcg PEG DAILY@0700 [facility] Last Admin: 02/26/18 06:49 Dose: Not Given Mupirocin (Bactroban Ointment (For Decolonization) -) 1 applic NS BID [facility] Stop: 03/01/18 21:59 Last Admin: 02/26/18 09:50 Dose: 1 applic Non-Formulary Medication (Non-Formulary Med) 1 each GT DAILY [facility] Oxybutynin Chloride (Ditropan -) 5 mg NGT BID [facility] Last Admin: 02/24/18 21:26 Dose: Not Given Senna (Senna Oral Solution -) 8.8 mg PO [facility] Last Admin: 02/24/18 21:27 Dose: Not Given Sertraline HCl (Zoloft -) 25 mg PO DAILY [facility] Last Admin: 02/25/18 09:24 Dose: Not Given Tamsulosin HCl (Flomax -) 0.4 mg PO DAILY@0830 [facility] Last Admin: 02/25/18 09:05 Dose: Not Given Trimethoprim/Sulfamethoxazole (Bactrim Oral Suspension -) 40 mg GT DAILY [facility] Last Admin: 02/25/18 09:24 Dose: Not Given Gen: vented, poorly responsive Heart: RRR Lung: decreased breath sounds at the bases Abd: soft, nontender Ext: no edema Laboratory Results - last 24 hr 02/22/18 02/25/18 02/25/18 15:30 05:22 12:25 WBC RBC Hgb Hct MCV MCH MCHC RDW Plt Count MPV Absolute Neuts (auto) Neutrophils % Lymphocytes % Monocytes % Eosinophils % Basophils % Nucleated RBC % Sodium Potassium Chloride Carbon Dioxide Anion Gap BUN Creatinine Creat Clearance w eGFR POC Glucometer 202.65226 202.02521 Random Glucose Calcium Phosphorus Magnesium Total Bilirubin AST ALT Alkaline Phosphatase Total Protein Albumin Blood Type O POSITIVE Antibody Screen Negative Crossmatch See Detail 02/25/18 02/25/18 02/25/18 16:41 20:01 21:38 WBC 13.6 H RBC 3.15 L Hgb 9.2 L Hct 27.9 L MCV 88.3 MCH 29.2 MCHC 33.1 RDW 17.9 H Plt Count 183 D MPV 10.2 Absolute Neuts (auto) 11.9 Neutrophils % 87.6 H Lymphocytes % 8.0 D Monocytes % 3.4 L Eosinophils % 0.9 D Basophils % 0.1 Nucleated RBC % 0 Sodium Potassium Chloride Carbon Dioxide Anion Gap BUN Creatinine Creat Clearance w eGFR POC Glucometer 178.98372 361.49294 Random Glucose Calcium Phosphorus Magnesium Total Bilirubin AST ALT Alkaline Phosphatase Total Protein Albumin Blood Type Antibody Screen Crossmatch 02/26/18 02/26/18 02/26/18 05:30 05:30 05:51 WBC 13.2 H RBC 3.19 L Hgb 9.5 L Hct 28.3 L MCV 88.7 MCH 29.7 MCHC 33.4 RDW 18.1 H Plt Count 183 MPV 10.8 Absolute Neuts (auto) 10.6 Neutrophils % 81.0 Lymphocytes % 13.1 D Monocytes % 4.6 Eosinophils % 1.0 Basophils % 0.3 Nucleated RBC % 0 Sodium 149 H Potassium 3.1 L Chloride 115 H Carbon Dioxide 22 Anion Gap 12 BUN 167 H* Creatinine 2.5 H Creat Clearance w eGFR 24.67 POC Glucometer [phone] Random Glucose 142 H Calcium 8.0 L Phosphorus 3.6 Magnesium 2.1 Total Bilirubin 0.5 D AST 14 L ALT 44 Alkaline Phosphatase 51 D Total Protein 5.7 L Albumin 2.2 L Blood Type Antibody Screen Crossmatch A/P Chronic Respiratory Failure Pneumonia h/o Traumatic Brain Injury Functional Quadriplegia Acute on Chronic Renal Failure Atrial Fibrillation DM Dementia - Follow H&H - Normal transfusion thresholds - antibiotics per ID - Monitor off steroids - continue volume assist control - poor candidate for weaning due to poor mental status - enteral feeds when OK by GI - DVT/GI prophylaxis - Vent floor monitoring Dr Lr Critical care time spent in reviewing chart, evaluating patient and formulating plan - 36 minutes.
[2018-02-26] MEDS: SULFAMETHOXAZOLE/TMP 200MG-40MG/5ML GT SCH (11:25)
[2018-02-26] MEDS: PANTOPRAZOLE SODIUM 160 MG in DEXTROSE 5%-WATER - 290 ML IVPB SCH (11:26)
[2018-02-26] MEDS: NON-FORMULARY MED GT SCH (11:27)
--- NOTE | 2018-02-26 12:58 | PN ---
Progress Note (short form) - Note Progress Note: Patient seen and examined Lying comfortably in bed Nurses report -no active bleeding Last Vital Signs Temp Pulse Resp BP Pulse Ox 99.6 F 92 H 19 98/62 100 02/26/18 06:00 02/26/18 08:00 02/26/18 11:08 02/26/18 08:00 02/25/18 21:00 Trach Vent Diminished breath sounds Cor-Atrial Fib PEG Soft abdomen Ext - no edema CBC, BMP 02/26/18 05:30 02/26/18 05:30 Current Medications Generic Name Dose Route Start Last Admin Trade Name Freq PRN Reason Stop Dose Admin Acetaminophen 650 mg 02/24/18 20:32 Tylenol - PO Q4H PRN FEVER Artificial Tears 2 drop 02/24/18 22:00 02/26/18 09:49 Artificial Tears OU 2 drop BID [facility] Administration Atorvastatin Calcium 10 mg 02/24/18 22:00 02/24/18 21:26 Lipitor - GT Not Given HS [facility] Bacitracin 1 applic 02/24/18 22:00 02/26/18 06:05 Bacitracin - TP 1 applic TID [facility] Administration Chlorhexidine Gluconate 1 applic 02/24/18 22:00 02/25/18 21:34 Hibiclens For Decolonization - TP 1 applic HS [facility] Administration Collagenase 1 applic 02/25/18 10:00 02/26/18 09:51 Santyl - TP 1 applic DAILY [facility] Administration Diltiazem HCl 10 mg 02/25/18 15:49 Cardizem Injection - IVPUSH Q6H PRN [facility] Docusate Sodium 100 mg 02/24/18 20:32 Colace Liquid - PO DAILY PRN CONSTIPATION Ferrous Sulfate 300 mg 02/25/18 10:00 02/26/18 11:19 Feosol GT 300 mg DAILY [facility] Administration Dextrose/Sodium Chloride 20 meq in 1,000 mls @ 75 mls/hr 02/24/18 20:45 02/25 21:32 D5-1/4ns+20 Meq Kcl - IV 75 mls/hr ASDIR [facility] Administration Piperacillin Sod/Tazobactam 50 mls @ 100 mls/hr 02/25/18 02:00 02/26/18 09:48 Sod 2.25 gm/ Dextrose IVPB 100 mls/hr Q8H-IV [facility] Administration Protocol Pantoprazole Sodium 160 mg/ 290 mls @ 14.5 mls/hr 02/25/18 13:00 02/26/18 11: 26 Dextrose IVPB 14.5 mls/hr Q20H [facility] Administration Diltiazem HCl 125 mg/ Dextrose 125 mls @ 5 mls/hr 02/25/18 18:00 02/25/18 18: 41 IVPB 5 mg/hr TITR [facility] 5 mls/hr Administration Protocol 5 MG/HR Insulin Aspart 1 vial 02/24/18 22:00 02/26/18 06:05 Novolog Vial Sliding Scale - SQ 2 units ACHS [facility] Administration Protocol Insulin Detemir 20 units 02/24/18 22:00 02/25/18 22:03 Levemir Vial SQ 20 units HS [facility] Administration Levothyroxine Sodium 37.5 mcg 02/25/18 07:00 02/26/18 06:49 Synthroid - PEG Not Given DAILY@0700 [facility] Mupirocin 1 applic 02/24/18 22:00 02/26/18 09:50 Bactroban Ointment (For Decolonization) - NS 03/01/18 21:59 1 applic BID [facility] Administration Non-Formulary Medication 1 each 02/25/18 10:00 02/26/18 11:27 Non-Formulary Med GT 1 each DAILY [facility] Administration Oxybutynin Chloride 5 mg 02/24/18 22:00 02/26/18 11:18 Ditropan - NGT 5 mg BID [facility] Administration Senna 8.8 mg 02/24/18 22:00 02/24/18 21:27 Senna Oral Solution - PO Not Given HS [facility] Sertraline HCl 25 mg 02/25/18 10:00 02/26/18 11:19 Zoloft - PO 25 mg DAILY [facility] Administration Tamsulosin HCl 0.4 mg 02/25/18 08:30 02/25/18 09:05 Flomax - PO Not Given DAILY@0830 [facility] Trimethoprim/Sulfamethoxazole 40 mg 02/25/18 10:00 02/26/18 11:25 Bactrim Oral Suspension - GT 40 mg DAILY [facility] Administration Impresswion: S/P GI bleed Trach /Vent dependent - Dieulafoy ulcerations - s/p heater probe/epinephrine injections s/p transfusions DM Paraplegia Plan: prn transfusion
--- NOTE | 2018-02-26 14:27 | PN ---
Physical Exam: SUBJECTIVE: Patient seen and examined at bedside. Pt is unresponsive. per nurse , black BM overnight. OBJECTIVE: Vital Signs Period Temp Pulse Resp BP Sys/Wills Pulse Ox Last 24 Hr 97.8 F-99.7 F 88-132 14-19 96-128/45-98 97-100 Gen: uncommunicative. No apparent distress HEENT: NCAT Neck: trach tube in place. No blood at stoma. functioning well Cardio: irregular, tachycardic, norm s1s2, no m/r/g appreciated Lungs:clear breath sounds anteriorly Abd: soft, less distended. No blood at peg site Ext: 1+ pulses, no edema Laboratory Results - last 24 hr 02/22/18 02/25/18 02/25/18 15:30 16:41 20:01 WBC 13.6 H RBC 3.15 L Hgb 9.2 L Hct 27.9 L MCV 88.3 MCH 29.2 MCHC 33.1 RDW 17.9 H Plt Count 183 D MPV 10.2 Absolute Neuts (auto) 11.9 Neutrophils % 87.6 H Lymphocytes % 8.0 D Monocytes % 3.4 L Eosinophils % 0.9 D Basophils % 0.1 Nucleated RBC % 0 Sodium Potassium Chloride Carbon Dioxide Anion Gap BUN Creatinine Creat Clearance w eGFR POC Glucometer [phone] Random Glucose Calcium Phosphorus Magnesium Total Bilirubin AST ALT Alkaline Phosphatase Total Protein Albumin Blood Type O POSITIVE Antibody Screen Negative Crossmatch See Detail 02/25/18 02/26/18 02/26/18 21:38 05:30 05:30 WBC 13.2 H RBC 3.19 L Hgb 9.5 L Hct 28.3 L MCV 88.7 MCH 29.7 MCHC 33.4 RDW 18.1 H Plt Count 183 MPV 10.8 Absolute Neuts (auto) 10.6 Neutrophils % 81.0 Lymphocytes % 13.1 D Monocytes % 4.6 Eosinophils % 1.0 Basophils % 0.3 Nucleated RBC % 0 Sodium 149 H Potassium 3.1 L Chloride 115 H Carbon Dioxide 22 Anion Gap 12 BUN 167 H* Creatinine 2.5 H Creat Clearance w eGFR 24.67 POC Glucometer [phone] Random Glucose 142 H Calcium 8.0 L Phosphorus 3.6 Magnesium 2.1 Total Bilirubin 0.5 D AST 14 L ALT 44 Alkaline Phosphatase 51 D Total Protein 5.7 L Albumin 2.2 L Blood Type Antibody Screen Crossmatch 02/26/18 02/26/18 05:51 12:03 WBC RBC Hgb Hct MCV MCH MCHC RDW Plt Count MPV Absolute Neuts (auto) Neutrophils % Lymphocytes % Monocytes % Eosinophils % Basophils % Nucleated RBC % Sodium Potassium Chloride Carbon Dioxide Anion Gap BUN Creatinine Creat Clearance w eGFR POC Glucometer [phone] [phone] Random Glucose Calcium Phosphorus Magnesium Total Bilirubin AST ALT Alkaline Phosphatase Total Protein Albumin Blood Type Antibody Screen Crossmatch Active Medications Generic Name Dose Route Start Last Admin Trade Name Freq PRN Reason Stop Dose Admin Acetaminophen 650 mg 02/24/18 20:32 Tylenol - PO Q4H PRN FEVER Artificial Tears 2 drop 02/24/18 22:00 02/26/18 09:49 Artificial Tears OU 2 drop BID LILIA Administration Atorvastatin Calcium 10 mg 02/24/18 22:00 02/24/18 21:26 Lipitor - GT Not Given HS LILIA Bacitracin 1 applic 02/24/18 22:00 02/26/18 06:05 Bacitracin - TP 1 applic TID LILIA Administration Chlorhexidine Gluconate 1 applic 02/24/18 22:00 02/25/18 21:34 Hibiclens For Decolonization - TP 1 applic HS LILIA Administration Collagenase 1 applic 02/25/18 10:00 02/26/18 09:51 Santyl - TP 1 applic DAILY LILIA Administration Diltiazem HCl 10 mg 02/25/18 15:49 Cardizem Injection - IVPUSH Q6H PRN TACHYCARDIA Docusate Sodium 100 mg 02/24/18 20:32 Colace Liquid - PO DAILY PRN CONSTIPATION Ferrous Sulfate 300 mg 02/25/18 10:00 02/26/18 11:19 Feosol GT 300 mg DAILY LILIA Administration Dextrose/Sodium Chloride 20 meq in 1,000 mls @ 75 mls/hr 02/24/18 20:45 02/25 21:32 D5-1/4ns+20 Meq Kcl - IV 75 mls/hr ASDIR LILIA Administration Piperacillin Sod/Tazobactam 50 mls @ 100 mls/hr 02/25/18 02:00 02/26/18 09:48 Sod 2.25 gm/ Dextrose IVPB 100 mls/hr Q8H-IV LILIA Administration Protocol Pantoprazole Sodium 160 mg/ 290 mls @ 14.5 mls/hr 02/25/18 13:00 02/26/18 11: 26 Dextrose IVPB 14.5 mls/hr Q20H LILIA Administration Diltiazem HCl 125 mg/ Dextrose 125 mls @ 5 mls/hr 02/25/18 18:00 02/25/18 18: 41 IVPB 5 mg/hr TITR LILIA 5 mls/hr Administration Protocol 5 MG/HR Insulin Aspart 1 vial 02/24/18 22:00 02/26/18 13:00 Novolog Vial Sliding Scale - SQ Not Given ACHS [facility] Protocol Insulin Detemir 20 units 02/24/18 22:00 02/25/18 22:03 Levemir Vial SQ 20 units HS [facility] Administration Levothyroxine Sodium 37.5 mcg 02/25/18 07:00 02/26/18 06:49 Synthroid - PEG Not Given DAILY@0700 [facility] Mupirocin 1 applic 02/24/18 22:00 02/26/18 09:50 Bactroban Ointment (For Decolonization) - NS 03/01/18 21:59 1 applic BID LILIA Administration Non-Formulary Medication 1 each 02/25/18 10:00 02/26/18 11:27 Non-Formulary Med GT 1 each DAILY [facility] Administration Oxybutynin Chloride 5 mg 02/24/18 22:00 02/26/18 11:18 Ditropan - NGT 5 mg BID LILIA Administration Senna 8.8 mg 02/24/18 22:00 02/24/18 21:27 Senna Oral Solution - PO Not Given HS [facility] Sertraline HCl 25 mg 02/25/18 10:00 02/26/18 11:19 Zoloft - PO 25 mg DAILY LILIA Administration Tamsulosin HCl 0.4 mg 02/25/18 08:30 02/25/18 09:05 Flomax - PO Not Given DAILY@0830 [facility] Trimethoprim/Sulfamethoxazole 40 mg 02/25/18 10:00 02/26/18 11:25 Bactrim Oral Suspension - GT 40 mg DAILY LILIA Administration ASSESSMENT/PLAN: Pt is an 87 y/o M with PMH significant for 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 Pt is admitted to Med-Surg. #Afib -Pt alternates between fast and slow Afib. rate varies between 50 and 150 -Has been treated previously with Lopressor PRN. Presently on Cardizem drip @ 5mg / hr -discussed with Dr. Sorto. Pt has preserved LV EF and normal LV size. Will start Lopressor 12.5mg BID, as pt has received it in the past and tolerated it well. #GIB -fobt pos -anemia -counts dropping despite prbcs and epo -GI consulted -gastric lavage with pink/red fluid -Pt had a scope sig for bleeding AVM -Discussed with GI. Advance PED flushes and meds -Pt had black bm this am. Likely old blood. #Abdominal distension -intermittent large volume stools reported -abdomen soft, distended, tympanic -NPO -CTAP neg for volvulus #Acute on chronic resp failure -likely 2/2 aspiration PNA -at baseline vent settings: AC Tv 450, RR 14, FiO2 28, PEEP 5 -Initially on Medrol 40. d/c'ed -Prednisone 40 -Pulm on board: poor weaning candidate #Asp PNA -Zosyn -ID on board: rec possible deescalation of Abx by Mon -Sputum culture pos for P aerug. Pseudo fluorescens -Zosyn, Bactrim #Anemia -was transfused 7 PRBCs total -Hb stable last 2 days -Given Epo (02/20/2018) -Heme on board: will give weekly Epo -No obvious active bleed -per son, had negative colonoscopy 2 years ago #Acute on CKD - [employer] stabilized around 2.6 - BUN up-trending -? etiology. ?steroids vs GIB vs dehydration -Nepro on board: prerenal. Adjusted fluids #Hypernatremia -fluids modified by nephro -Nephro input appreciated #Hypokalemia -Fluids monitored and adjusted by nephro -Repleting K #Thrombophilia - Resolved -plt wnl #DM -Levemir was increased -ISS -glucose continues to be elevated in 150s -titrate Insulin #TBI -s/p trach and PEG -secondary paraplegia #Hypothyroid -c/w synthroid #Incontinence -christopher -flomax -oxybutinin #depression -zoloft #FEN -D51/4NS w/ KCl -lytes: Luis Alberto. HypoK. Repleting -Nutrition: via G-tube. flushes and #PPx -held in setting of possible bleed #Dispo -med surg Elia Prieto MD PGY-1 IM Visit type - Emergency Visit Emergency Visit: No - New Patient This patient is new to me today: No - Critical Care Critical Care patient: No - Discharge Referral Referred to [facility] Med P.C[facility] No
[2018-02-26] MEDS ORDERED: METOPROLOL TARTRATE 25 MG TABLET (FP) GT ONE (15:11)
--- NOTE | 2018-02-26 16:18 | PN ---
Progress Note, Physician History of Present Illness: stable no new events on vent trach collar - Current Medication List Current Medications: Active Medications Acetaminophen (Tylenol -) 650 mg PO Q4H PRN PRN Reason: FEVER Artificial Tears (Artificial Tears) 2 drop OU BID LILIA Last Admin: 02/26/18 09:49 Dose: 2 drop Atorvastatin Calcium (Lipitor -) 10 mg GT HS LILIA Last Admin: 02/24/18 21:26 Dose: Not Given Bacitracin (Bacitracin -) 1 applic TP TID LILIA Last Admin: 02/26/18 15:49 Dose: 1 applic Chlorhexidine Gluconate (Hibiclens For Decolonization -) 1 applic TP HS [facility] Last Admin: 02/25/18 21:34 Dose: 1 applic Collagenase (Santyl -) 1 applic TP DAILY [facility] Last Admin: 02/26/18 09:51 Dose: 1 applic Diltiazem HCl (Cardizem Injection -) 10 mg IVPUSH Q6H PRN PRN Reason: TACHYCARDIA Docusate Sodium (Colace Liquid -) 100 mg PO DAILY PRN PRN Reason: CONSTIPATION Ferrous Sulfate (Feosol) 300 mg GT DAILY [facility] Last Admin: 02/26/18 11:19 Dose: 300 mg Dextrose/Sodium Chloride (D5-1/4ns+20 Meq Kcl -) 20 meq in 1,000 mls @ 75 mls/ hr IV ASDIR [facility] Last Admin: 02/25/18 21:32 Dose: 75 mls/hr Piperacillin Sod/Tazobactam (Sod 2.25 gm/ Dextrose) 50 mls @ 100 mls/hr IVPB Q8H-IV LILIA; Protocol Last Admin: 02/26/18 09:48 Dose: 100 mls/hr Pantoprazole Sodium 160 mg/ (Dextrose) 290 mls @ 14.5 mls/hr IVPB Q20H [facility] Last Admin: 02/26/18 11:26 Dose: 14.5 mls/hr Diltiazem HCl 125 mg/ Dextrose 125 mls @ 5 mls/hr IVPB TITR [facility]; Protocol Last Admin: 02/25/18 18:41 Dose: 5 mg/hr, 5 mls/hr Insulin Aspart (Novolog Vial Sliding Scale -) 1 vial SQ ACHS [facility]; Protocol Last Admin: 02/26/18 13:00 Dose: Not Given Insulin Detemir (Levemir Vial) 20 units SQ [facility] Last Admin: 02/25/18 22:03 Dose: 20 units Levothyroxine Sodium (Synthroid -) 37.5 mcg PEG DAILY@0700 [facility] Last Admin: 02/26/18 06:49 Dose: Not Given Metoprolol Tartrate (Lopressor -) 12.5 mg GT BID [facility] Mupirocin (Bactroban Ointment (For Decolonization) -) 1 applic NS BID [facility] Stop: 03/01/18 21:59 Last Admin: 02/26/18 09:50 Dose: 1 applic Non-Formulary Medication (Non-Formulary Med) 1 each GT DAILY [facility] Last Admin: 02/26/18 11:27 Dose: 1 each Oxybutynin Chloride (Ditropan -) 5 mg NGT BID [facility] Last Admin: 02/26/18 11:18 Dose: 5 mg Senna (Senna Oral Solution -) 8.8 mg PO [facility] Last Admin: 02/24/18 21:27 Dose: Not Given Sertraline HCl (Zoloft -) 25 mg PO DAILY [facility] Last Admin: 02/26/18 11:19 Dose: 25 mg Tamsulosin HCl (Flomax -) 0.4 mg PO DAILY@0830 [facility] Last Admin: 02/25/18 09:05 Dose: Not Given Trimethoprim/Sulfamethoxazole (Bactrim Oral Suspension -) 40 mg GT DAILY [facility] Last Admin: 02/26/18 11:25 Dose: 40 mg - Objective Vital Signs: Vital Signs Temperature 97.8 F 02/26/18 12:00 Pulse Rate 82 02/26/18 14:00 Respiratory Rate 14 02/26/18 15:11 Blood Pressure 99/64 02/26/18 14:00 O2 Sat by Pulse Oximetry (%) 100 02/25/18 21:00 Constitutional: Yes: No Distress, Calm Cardiovascular: Yes: Pulse Irregular Respiratory: Yes: Mechanically Ventilated, Other Gastrointestinal: Yes: Normal Bowel Sounds, Soft, Other (peg tube) Musculoskeletal: Yes: WNL Extremities: Yes: WNL Neurological: Yes: Other Psychiatric: Yes: Other Labs: CBC, BMP 02/26/18 05:30 02/26/18 05:30 INR, PTT INR 1.13 (0.82-1.09) 02/16/18 22:40 - ....Imaging Chest X-ray: Report Reviewed, Image Reviewed Assessment/Plan Problem List - Problems (1) Anemia Code(s): D64.9 - ANEMIA, UNSPECIFIED (2) Chronic kidney disease, stage 3 Code(s): N18.3 - CHRONIC KIDNEY DISEASE, STAGE 3 (MODERATE) (3) Chronic respiratory failure Code(s): J96.10 - CHRONIC RESPIRATORY FAILURE, UNSP W HYPOXIA OR HYPERCAPNIA Qualifiers: Respiratory failure complication: unspecified whether with hypoxia or hypercapnia Qualified Code(s): J96.10 - Chronic respiratory failure, unspecified whether with hypoxia or hypercapnia (4) PAF (paroxysmal atrial fibrillation) Code(s): I48.0 - PAROXYSMAL ATRIAL FIBRILLATION (5) Renal failure Code(s): N19 - UNSPECIFIED KIDNEY FAILURE Qualifiers: Renal failure chronicity: unspecified chronicity Qualified Code(s): N19 - Unspecified kidney failure (6) Diabetes Code(s): E11.9 - TYPE 2 DIABETES MELLITUS WITHOUT COMPLICATIONS (7) TBI (traumatic brain injury) Code(s): S06.9X9A - UNSP INTRACRANIAL INJURY W LOC OF UNSP DURATION, INIT (8) Vzzul-hb-rfafxbw kidney injury Code(s): N17.9 - ACUTE KIDNEY FAILURE, UNSPECIFIED; N18.9 - CHRONIC KIDNEY DISEASE, UNSPECIFIED (9) Qzkvn-is-xuttoty renal failure Code(s): N17.9 - ACUTE KIDNEY FAILURE, UNSPECIFIED; N18.9 - CHRONIC KIDNEY DISEASE, UNSPECIFIED (10) Hypotension Code(s): I95.9 - HYPOTENSION, UNSPECIFIED (11) Hypotension Code(s): I95.9 - HYPOTENSION, UNSPECIFIED 12 gi bleed 13 difuleoy lesion I plan continue zosyn continue monitoring continue bactrim watch for bleeding rest continue as per icu cc time 40 min
[2018-02-26] MEDS: DILTIAZEM INJECTION 125 MG in DEXTROSE 5%-WATER - 100 ML IVPB SCH (17:36)
--- NOTE | 2018-02-26 17:46 | PN ---
Teaching Attending Note Name of Resident: Elia Prieto ATTENDING PHYSICIAN STATEMENT I saw and evaluated the patient. I reviewed the resident's note and discussed the case with the resident. I agree with the resident's findings and plan as documented with exceptions below. SUBJECTIVE: Patient seen and examined. opens eyes minimally, non verbal. unable to do ROS. OBJECTIVE: Vital Signs Period Temp Pulse Resp BP Sys/Wills Pulse Ox Last 24 Hr 97.8 F-99.7 F 78-132 14-19 96-128/45-98 97-100 Intake & Output 02/23/18 02/24/18 02/25/18 02/26/18 23:59 23:59 23:59 23:59 Intake Total 3450 3008 2488.5 636.5 Output Total 1800 1100 2600 900 Balance 1650 1908 -111.5 -263.5 Weight 145 lb 6.4 oz 147 lb 9.6 oz 136 lb 8 oz 142 lb 9 oz General: lying in bed no acute distress, minimal eye opening Chest: Decreased effort, few scattered rales Abdomen:Soft, NT, positive bowel sounds, PEG in place Home Medications Medication Instructions Recorded Acetaminophen [Tylenol] 650 mg PO Q6H PRN 01/21/18 Bacitracin - [Bacitracin Topical 1 applic TP TID 01/21/18 Ointment -] Baclofen 10 mg GT Q8H 01/21/18 Balsam Zabrina/[place] Oil [Venelex 1 applic TP BID 01/21/18 Ointment] Docusate Sodium [Colace -] 100 mg GT ASDIR 01/21/18 Ferrous Sulfate [Feosol] 300 mg GT DAILY 01/21/18 Glycopyrrolate/Formoterol Fum 0 gm IH BID 01/21/18 [Bevespi Aerosphere Inhaler] Heparin - 5,000 unit SQ BID 01/21/18 Hypromellose 0.5% Opth Soln 2 drop OU BID 01/21/18 [Artificial Tears] Insulin Glargine,Hum.rec.anlog 9 units SQ HS 01/21/18 [Lantus Solostar PEN -] Insulin Lispro [Humalog] 0 unit SQ Q6H 01/21/18 L.acidoph,Paracasei, B.lactis 1 each GT DAILY 01/21/18 [Probiotic] Lanolin/Mineral Oil [Eucerin 1 applic TP Q6H 01/21/18 Original Lotion] Levothyroxine Sodium [Synthroid] 37.5 mcg GT BID 01/21/18 Oxybutynin Chloride 5 mg GT BID 01/21/18 Ranitidine [Zantac -] 150 mg GT DAILY 01/21/18 Sertraline HCl [Zoloft] 25 mg GT DAILY 01/21/18 Silver Sulfadiazine 1% Top Cr 1 applic TP DAILY 01/21/18 [Silvadene -] Simethicone 40 mg GT Q6H 01/21/18 Simvastatin 20 mg GT DAILY 01/21/18 Tamsulosin HCl 0.4 mg GT DAILY 01/21/18 Zinc Oxide 1 applic TP BID 01/21/18 Levothyroxine [Synthroid -] 37.5 mcg PEG DAILY@0700 tablet 02/08/18 Sodium Chloride Nasal [place] [[place] 2 spray NS TID spray 02/08/18 [place] Nasal [place] -] Aspirin [ASA -] 81 mg PO DAILY #30 tab.chew 02/09/18 Furosemide Oral Solution [Lasix 40 mg GT BID #300 udc 02/09/18 Oral Solution -] Nut.tx.imp.renal Fxn,Lac-Reduc 1,000 ml PO DAILY #1000 ml 02/09/18 [Nepro Carb Steady] Potassium Chloride 40 meq GT DAILY #40 meq 02/09/18 Active Medications Acetaminophen (Tylenol -) 650 mg PO Q4H PRN PRN Reason: FEVER Artificial Tears (Artificial Tears) 2 drop OU BID [facility] Last Admin: 02/26/18 09:49 Dose: 2 drop Atorvastatin Calcium (Lipitor -) 10 mg GT HS [facility] Last Admin: 02/24/18 21:26 Dose: Not Given Bacitracin (Bacitracin -) 1 applic TP TID [facility] Last Admin: 02/26/18 15:49 Dose: 1 applic Chlorhexidine Gluconate (Hibiclens For Decolonization -) 1 applic TP HS [facility] Last Admin: 02/25/18 21:34 Dose: 1 applic Collagenase (Santyl -) 1 applic TP DAILY [facility] Last Admin: 02/26/18 09:51 Dose: 1 applic Diltiazem HCl (Cardizem Injection -) 10 mg IVPUSH Q6H PRN PRN Reason: TACHYCARDIA Docusate Sodium (Colace Liquid -) 100 mg PO DAILY PRN PRN Reason: CONSTIPATION Ferrous Sulfate (Feosol) 300 mg GT DAILY [facility] Last Admin: 02/26/18 11:19 Dose: 300 mg Dextrose/Sodium Chloride (D5-1/4ns+20 Meq Kcl -) 20 meq in 1,000 mls @ 75 mls/ hr IV ASDIR [facility] Last Admin: 02/25/18 21:32 Dose: 75 mls/hr Piperacillin Sod/Tazobactam (Sod 2.25 gm/ Dextrose) 50 mls @ 100 mls/hr IVPB Q8H-IV [facility]; Protocol Last Admin: 02/26/18 17:35 Dose: 100 mls/hr Pantoprazole Sodium 160 mg/ (Dextrose) 290 mls @ 14.5 mls/hr IVPB Q20H [facility] Last Admin: 02/26/18 11:26 Dose: 14.5 mls/hr Diltiazem HCl 125 mg/ Dextrose 125 mls @ 5 mls/hr IVPB TITR [facility]; Protocol Last Admin: 02/26/18 17:36 Dose: 2.5 mg/hr, 2.5 mls/hr Insulin Aspart (Novolog Vial Sliding Scale -) [address] [facility]; Protocol Last Admin: 02/26/18 17:17 Dose: Not Given Insulin Detemir (Levemir Vial) 20 units SQ [facility] Last Admin: 02/25/18 22:03 Dose: 20 units Levothyroxine Sodium (Synthroid -) 37.5 mcg PEG DAILY@0700 [facility] Last Admin: 02/26/18 06:49 Dose: Not Given Metoprolol Tartrate (Lopressor -) 12.5 mg GT BID [facility] Mupirocin (Bactroban Ointment (For Decolonization) -) 1 applic NS BID [facility] Stop: 03/01/18 21:59 Last Admin: 02/26/18 09:50 Dose: 1 applic Non-Formulary Medication (Non-Formulary Med) 1 each GT DAILY [facility] Last Admin: 02/26/18 11:27 Dose: 1 each Oxybutynin Chloride (Ditropan -) 5 mg NGT BID [facility] Last Admin: 02/26/18 11:18 Dose: 5 mg Senna (Senna Oral Solution -) 8.8 mg PO HS [facility] Last Admin: 02/24/18 21:27 Dose: Not Given Sertraline HCl (Zoloft -) 25 mg PO DAILY [facility] Last Admin: 02/26/18 11:19 Dose: 25 mg Tamsulosin HCl (Flomax -) 0.4 mg PO DAILY@0830 [facility] Last Admin: 02/25/18 09:05 Dose: Not Given Trimethoprim/Sulfamethoxazole (Bactrim Oral Suspension -) 40 mg GT DAILY [facility] Last Admin: 02/26/18 11:25 Dose: 40 mg Laboratory Results - last 24 hr 02/22/18 02/25/18 02/25/18 15:30 20:01 21:38 WBC 13.6 H RBC 3.15 L Hgb 9.2 L Hct 27.9 L MCV 88.3 MCH 29.2 MCHC 33.1 RDW 17.9 H Plt Count 183 D MPV 10.2 Absolute Neuts (auto) 11.9 Neutrophils % 87.6 H Lymphocytes % 8.0 D Monocytes % 3.4 L Eosinophils % 0.9 D Basophils % 0.1 Nucleated RBC % 0 Sodium Potassium Chloride Carbon Dioxide Anion Gap BUN Creatinine Creat Clearance w eGFR POC Glucometer [phone] Random Glucose Calcium Phosphorus Magnesium Total Bilirubin AST ALT Alkaline Phosphatase Total Protein Albumin Blood Type O POSITIVE Antibody Screen Negative Crossmatch See Detail 02/26/18 02/26/18 02/26/18 05:30 05:30 05:51 WBC 13.2 H RBC 3.19 L Hgb 9.5 L Hct 28.3 L MCV 88.7 MCH 29.7 MCHC 33.4 RDW 18.1 H Plt Count 183 MPV 10.8 Absolute Neuts (auto) 10.6 Neutrophils % 81.0 Lymphocytes % 13.1 D Monocytes % 4.6 Eosinophils % 1.0 Basophils % 0.3 Nucleated RBC % 0 Sodium 149 H Potassium 3.1 L Chloride 115 H Carbon Dioxide 22 Anion Gap 12 BUN 167 H* Creatinine 2.5 H Creat Clearance w eGFR 24.67 POC Glucometer [phone] Random Glucose 142 H Calcium 8.0 L Phosphorus 3.6 Magnesium 2.1 Total Bilirubin 0.5 D AST 14 L ALT 44 Alkaline Phosphatase 51 D Total Protein 5.7 L Albumin 2.2 L Blood Type Antibody Screen Crossmatch 02/26/18 12:03 WBC RBC Hgb Hct MCV MCH MCHC RDW Plt Count MPV Absolute Neuts (auto) Neutrophils % Lymphocytes % Monocytes % Eosinophils % Basophils % Nucleated RBC % Sodium Potassium Chloride Carbon Dioxide Anion Gap BUN Creatinine Creat Clearance w eGFR POC Glucometer [phone] Random Glucose Calcium Phosphorus Magnesium Total Bilirubin AST ALT Alkaline Phosphatase Total Protein Albumin Blood Type Antibody Screen Crossmatch Microbiology 02/17/18 03:00 Blood - Peripheral Venous Blood Culture - Final NO GROWTH AFTER 5 DAYS INCUBATION 02/17/18 03:00 Blood - Peripheral Venous Blood Culture - Final NO GROWTH AFTER 5 DAYS INCUBATION 02/17/18 10:40 Sputum - Endotrachea Suction/Ventilator Gram Stain - Final 02/17/18 10:40 Sputum - Endotrachea Suction/Ventilator Sputum Culture - Final Pseudomonas Aeruginosa Pseudo Fluorescens/[place] 02/16/18 23:40 Urine - Urine Clean Catch Urine Culture - Final NO GROWTH OBTAINED ASSESSMENT AND PLAN: 87 year old male with a significant past medical history of diastolic heart failure, NIDDM, CKD, and 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 Admitted on 02/17/18 from [facility] chronic respiratory failure and severe anemia with a hg of 5.5 and hypotension. -Acute Upper GI bleed from [place] lesion -Acute blood loss anemia s/p 6 units PRBCs -Acute on chronic vent dependent respiratory failure, likely aspiration PNA. 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 h/h stable. Protonix drip x 72 hours. GI input noted. Meds and free water via PEG, PO in 24 hours if no concerns. Continue hypotonix fluids, start free water flushes via PEG. Replete K. Zosyn day 12/Bactrim day 2, sputum cultures with pseudomonas, WBC stable, monitor for now, discussed with Dr. Garza, plan for half-way antiboitics. At baseline vent settings, off steroids, monitor Pulmonary input appreciated. On diltiazem drip. Discussed with Dr. Barroso, start metoprolol 12.5 mg BID as BP and HR tolerate and taper off diltiazem drip. Patient with good bowel sounds, had 2 BM yesterday, large, non tender abdomen with improved distension and abdominal xray. Clinically not concerning for Sigmoid volvulus. GI/surgery input noted. CT A/P noted. hematology input noted. Continue Fe supplementation. Monitor renal function, cr overall plateaued, Renal input noted. -Levemir, ISS, tube feeds on hold pending above GI concerns. Continue oxybutynin/flomax/zoloft. DVTPPX with SCDs given recurrent anemia with multiple transfusions and active GI bleed. . Plan discussed with nursing. Continue ICU level of care for now. Total critical care time spent including patient visit, discussion with RN, ICU team, Dr. Sorto, Dr. Garza, Dr. Hidalgo and co-ordination of care 45 min.
[2018-02-26] MEDS: D5-1/4NS+20 MEQ KCL - 20 MEQ/1,000 ML INFUS.BAG IV SCH (20:45)
[2018-02-26] MEDS ORDERED: METOPROLOL TARTRATE 25 MG TABLET (FP) PO SCH (22:00)
[2018-02-26] MEDS ORDERED: PT OWN MED DRAWER 7, Y5N ONE (22:27)
[2018-02-26] MEDS ORDERED: ACETAMINOPHEN 650 MG/20.3 ML ORAL SOLUTION (CUPS) PEG ONE (22:30)
[2018-02-26] MEDS: METOPROLOL TARTRATE 25 MG TABLET (FP) GT SCH (22:35)
[2018-02-26] MEDS: ATORVASTATIN CA 10 MG TABLET (FP) GT SCH (22:35)
[2018-02-26] MEDS: CHLORHEXIDINE GLUCONATE 4% CLEANSER FOR DECOLONIZATION TP SCH (22:37)
[2018-02-26] MEDS: NYSTATIN POWDER 100,000 UNITS/GM - 15 GM TOPICAL POWDER TP SCH (22:38)
[2018-02-26] MEDS: SENNOSIDES 8.8 MG/5 ML BULK BOTTLE PO SCH (22:39)
[2018-02-26] MEDS: INSULIN (LEVEMIR) 100 UNITS/ML UNITS SQ SCH (23:00)
[2018-02-27] MEDS ORDERED: PIPERACILLIN/TAZOBACTAM 2.25 GM VIAL IVPB ONE ×3 (02:08→17:17)
[2018-02-27] MEDS ORDERED: DEXTROSE 5%-WATER - 50 ML IVPB ONE ×3 (02:08→17:17)
[2018-02-27] MEDS: PIPERACILLIN/TAZOB 2.25 GM 2.25 GM in DEXTROSE 5%-WATER - 50 ML IVPB SCH ×3 (02:10→17:19)
[2018-02-27 06:11] LABS: BASO % 0.3 % (0-2.0); EOS % 1.3 % (0-4.5); HEMOGLOBIN 9.1 GM/dL (11.7-16.9); MCH 30.2 pg (25.7-33.7); MCHC 33.7 g/dl (32.0-35.9); MEAN CELL VOLUME 89.6 fl (80-96); MEAN PLT VOLUME 10.3 fl (7.5-11.1); MONO % 4.6 % (3.8-10.2); NEUT % 82.8 % (42.8-82.8); PLATELET COUNT 168 K/MM3 (134-434); RBC 3.02 M/mm3 (4.00-5.60); RDW 18.2 % (11.9-15.9); WHITE BLOOD COUNT 9.6 K/mm3 (4.0-10.0)
[2018-02-27] MEDS: BACITRACIN 15 GM TUBE TOPICAL OINTMENT TP SCH ×3 (06:15→21:18)
[2018-02-27] MEDS: LEVOTHYROXINE NA 25 MCG TABLET (FP) PEG SCH (06:15)
[2018-02-27] MEDS: INSULIN SLIDING SCALE (NOVOLOG) 1 VIAL SQ SCH ×4 (06:19→21:31)
[2018-02-27] MEDS: PANTOPRAZOLE SODIUM 160 MG in DEXTROSE 5%-WATER - 290 ML IVPB SCH (06:35)
[2018-02-27 07:09] LABS: ANION GAP 8 (8-16); CALCIUM 7.6 mg/dL (8.5-10.1); CHLORIDE 116 mmol/L (98-107); CO2 24 mmol/L (21-32); CREATININE 2.4 mg/dL (0.7-1.3); GLUCOSE,RANDOM 106 mg/dL (74-106); PHOSPHOROUS 3.9 mg/dL (2.5-4.9); POTASSIUM 3.3 mmol/L (3.5-5.1); SGOT/AST 13 U/L (15-37); SGPT/ALT 38 U/L (12-78); SODIUM 148 mmol/L (136-145)
[2018-02-27 07:11] LABS: ALK PHOS 50 U/L (45-117); BILIRUBIN,TOTAL 0.4 mg/dL (0.2-1.0); TOT PROT 5.2 g/dl (6.4-8.2)
[2018-02-27 07:24] LABS: BLOOD UREA NITROGEN 139 mg/dL (7-18)
[2018-02-27] MEDS ORDERED: PT OWN MED DRAWER 7, Y5N ONE ×2 (08:44→09:39)
[2018-02-27] MEDS: TAMSULOSIN HCL 0.4 MG CAP.ER.24H (FP) PO SCH (08:50)
[2018-02-27] MEDS ORDERED: POTASSIUM CHLORIDE ORAL LIQUID 20 MEQ/15 ML PO ONE (08:59)
[2018-02-27] MEDS ORDERED: MAGNESIUM OXIDE 400 MG TABLET (FP) PO ONE (09:00)
--- NOTE | 2018-02-27 09:09 | PN ---
Progress Note (short form) - Note Progress Note: Renal Follow up for CKD/KATERIN Pt seen and examined in the ICU on Trach collar awake on PPI drip making urine via christopher BP stable has dark stools Vital Signs Temperature 98.4 F 02/27/18 06:00 Pulse Rate 110 H 02/27/18 08:00 Respiratory Rate 19 02/27/18 08:00 Blood Pressure 111/73 02/27/18 08:00 O2 Sat by Pulse Oximetry (%) 98 02/27/18 07:27 Intake & Output 02/24/18 02/25/18 02/26/18 02/27/18 23:59 23:59 23:59 23:59 Intake Total 3008 2488.5 2664.5 976.5 Output Total 1100 2600 1900 500 Balance 1908 -111.5 764.5 476.5 Weight 66.95 kg 61.915 kg 64.665 kg 65.799 kg NAD RRR, No M/R Dec BS, no rales soft NT/ND + G tube in place NO LE edema CBC, BMP 02/27/18 05:30 02/27/18 05:30 Current Medications Acetaminophen (Tylenol -) 650 mg PO Q4H PRN PRN Reason: FEVER Artificial Tears (Artificial Tears) 2 drop OU BID [facility] Last Admin: 02/26/18 22:40 Dose: 2 drop Atorvastatin Calcium (Lipitor -) 10 mg GT HS [facility] Last Admin: 02/26/18 22:35 Dose: 10 mg Bacitracin (Bacitracin -) 1 applic TP TID [facility] Last Admin: 02/27/18 06:15 Dose: 1 applic Chlorhexidine Gluconate (Hibiclens For Decolonization -) 1 applic TP HS [facility] Last Admin: 02/26/18 22:37 Dose: 1 applic Collagenase (Santyl -) 1 applic TP DAILY [facility] Last Admin: 02/26/18 09:51 Dose: 1 applic Diltiazem HCl (Cardizem Injection -) 10 mg IVPUSH Q6H PRN PRN Reason: TACHYCARDIA Docusate Sodium (Colace Liquid -) 100 mg PO DAILY PRN PRN Reason: CONSTIPATION Ferrous Sulfate (Feosol) 300 mg GT DAILY [facility] Last Admin: 02/26/18 11:19 Dose: 300 mg Dextrose/Sodium Chloride (D5-1/4ns+20 Meq Kcl -) 20 meq in 1,000 mls @ 75 mls/ hr IV ASDIR [facility] Last Admin: 02/26/18 20:45 Dose: 75 mls/hr Piperacillin Sod/Tazobactam (Sod 2.25 gm/ Dextrose) 50 mls @ 100 mls/hr IVPB Q8H-IV [facility]; Protocol Last Admin: 02/27/18 02:10 Dose: 100 mls/hr Pantoprazole Sodium 160 mg/ (Dextrose) 290 mls @ 14.5 mls/hr IVPB Q20H [facility] Last Admin: 02/27/18 06:35 Dose: 14.5 mls/hr Diltiazem HCl 125 mg/ Dextrose 125 mls @ 5 mls/hr IVPB TITR [facility]; Protocol Last Admin: 02/26/18 17:36 Dose: 2.5 mg/hr, 2.5 mls/hr Insulin Aspart (Novolog Vial Sliding Scale -) 1 vial SQ ACHS [facility]; Protocol Last Admin: 02/27/18 06:19 Dose: Not Given Insulin Detemir (Levemir Vial) 20 units SQ HS [facility] Last Admin: 02/26/18 23:00 Dose: 20 units Levothyroxine Sodium (Synthroid -) 37.5 mcg PEG DAILY@0700 [facility] Last Admin: 02/27/18 06:15 Dose: 37.5 mcg Magnesium Oxide (Mag-Ox -) 800 mg PO ONCE ONE Stop: 02/27/18 09:01 Metoprolol Tartrate (Lopressor -) 12.5 mg GT BID [facility] Last Admin: 02/26/18 22:35 Dose: 12.5 mg Mupirocin (Bactroban Ointment (For Decolonization) -) 1 applic NS BID [facility] Stop: 03/01/18 21:59 Last Admin: 02/26/18 22:39 Dose: 1 applic Non-Formulary Medication (Non-Formulary Med) 1 each GT DAILY [facility] Last Admin: 02/26/18 11:27 Dose: 1 each Nystatin (Nystop Powder -) 1 applic TP BID [facility] Last Admin: 02/26/18 22:38 Dose: 1 applic Oxybutynin Chloride (Ditropan -) 5 mg NGT BID [facility] Last Admin: 02/26/18 22:35 Dose: 5 mg Potassium Chloride (Potassium Chloride Oral Liquid) 40 meq PO ONCE ONE Stop: 02/27/18 09:00 Senna (Senna Oral Solution -) 8.8 mg PO HS [facility] Last Admin: 02/26/18 22:39 Dose: 8.8 mg Sertraline HCl (Zoloft -) 25 mg PO DAILY [facility] Last Admin: 02/26/18 11:19 Dose: 25 mg Tamsulosin HCl (Flomax -) 0.4 mg PO DAILY@0830 [facility] Last Admin: 02/27/18 08:50 Dose: 0.4 mg Trimethoprim/Sulfamethoxazole (Bactrim Oral Suspension -) 40 mg GT DAILY [facility] Last Admin: 02/26/18 11:25 Dose: 40 mg 87 year old man with a significant past medical history of 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 #CKD Stage 3 with higher then baseline BUN/Cr #GI bleed #Anemia #Hypokalemia #Hypernatremia Azotemia improved and stable no indication for GRANULATOR OPERATOR pt is non-oliguric on IVF, can transition to oral fluids once cleared by GI continue KCl supplementation Trend H/H GI following, on PPI Trend BMP, Mg, Phos daily Frank Ayoub DO
--- NOTE | 2018-02-27 09:12 | PN ---
Progress Note, Physician Chief Complaint: Pt on ventilator/trached. again opens eyes to tactile stimuli;moves feet and hands. History of Present Illness: The patient is an 87 year old white male, with a significant past medical history of traumatic fall (s/p neck (C4,5, and 6)/back surgery, tracheotomy placement now ventilator dependent, and PEG tube placement), frequent pneumonia , emphysema, A-fib, diastolic CHF, DM, dementia, renal failure, nonverbal TBI, paraplegic, legally blind and deaf, who presents to the emergency department via EMS from [facility] with, 3 days of hypotension. Now transferred to ICU after being found to have bright red blood on gastric tube lavage that led to PRBCs and heater probe coagulation. Allergies: NKA Social History: Former smoker (Quit 35 years ago). Denies EtOH use and recreational drug use. - Current Medication List Current Medications: Active Medications Acetaminophen (Tylenol -) 650 mg PO Q4H PRN PRN Reason: FEVER Artificial Tears (Artificial Tears) 2 drop OU BID [facility] Last Admin: 02/26/18 22:40 Dose: 2 drop Atorvastatin Calcium (Lipitor -) 10 mg GT HS [facility] Last Admin: 02/26/18 22:35 Dose: 10 mg Bacitracin (Bacitracin -) 1 applic TP TID [facility] Last Admin: 02/27/18 06:15 Dose: 1 applic Chlorhexidine Gluconate (Hibiclens For Decolonization -) 1 applic TP HS [facility] Last Admin: 02/26/18 22:37 Dose: 1 applic Collagenase (Santyl -) 1 applic TP DAILY [facility] Last Admin: 02/26/18 09:51 Dose: 1 applic Diltiazem HCl (Cardizem Injection -) 10 mg IVPUSH Q6H PRN PRN Reason: TACHYCARDIA Docusate Sodium (Colace Liquid -) 100 mg PO DAILY PRN PRN Reason: CONSTIPATION Ferrous Sulfate (Feosol) 300 mg GT DAILY [facility] Last Admin: 02/26/18 11:19 Dose: 300 mg Dextrose/Sodium Chloride (D5-1/4ns+20 Meq Kcl -) 20 meq in 1,000 mls @ 75 mls/ hr IV ASDIR [facility] Last Admin: 02/26/18 20:45 Dose: 75 mls/hr Piperacillin Sod/Tazobactam (Sod 2.25 gm/ Dextrose) 50 mls @ 100 mls/hr IVPB Q8H-IV [facility]; Protocol Last Admin: 02/27/18 02:10 Dose: 100 mls/hr Pantoprazole Sodium 160 mg/ (Dextrose) 290 mls @ 14.5 mls/hr IVPB Q20H [facility] Last Admin: 02/27/18 06:35 Dose: 14.5 mls/hr Diltiazem HCl 125 mg/ Dextrose 125 mls @ 5 mls/hr IVPB TITR [facility]; Protocol Last Admin: 02/26/18 17:36 Dose: 2.5 mg/hr, 2.5 mls/hr Insulin Aspart (Novolog Vial Sliding Scale -) 1 vial SQ ACHS [facility]; Protocol Last Admin: 02/27/18 06:19 Dose: Not Given Insulin Detemir (Levemir Vial) 20 units SQ [facility] Last Admin: 02/26/18 23:00 Dose: 20 units Levothyroxine Sodium (Synthroid -) 37.5 mcg PEG DAILY@0700 [facility] Last Admin: 02/27/18 06:15 Dose: 37.5 mcg Magnesium Oxide (Mag-Ox -) 800 mg PO ONCE ONE Stop: 02/27/18 09:01 Metoprolol Tartrate (Lopressor -) 12.5 mg GT BID [facility] Last Admin: 02/26/18 22:35 Dose: 12.5 mg Mupirocin (Bactroban Ointment (For Decolonization) -) 1 applic NS BID [facility] Stop: 03/01/18 21:59 Last Admin: 02/26/18 22:39 Dose: 1 applic Non-Formulary Medication (Non-Formulary Med) 1 each GT DAILY [facility] Last Admin: 02/26/18 11:27 Dose: 1 each Nystatin (Nystop Powder -) 1 applic TP BID [facility] Last Admin: 02/26/18 22:38 Dose: 1 applic Oxybutynin Chloride (Ditropan -) 5 mg NGT BID [facility] Last Admin: 02/26/18 22:35 Dose: 5 mg Potassium Chloride (Potassium Chloride Oral Liquid) 40 meq PO ONCE ONE Stop: 02/27/18 09:00 Senna (Senna Oral Solution -) 8.8 mg PO [facility] Last Admin: 02/26/18 22:39 Dose: 8.8 mg Sertraline HCl (Zoloft -) 25 mg PO DAILY [facility] Last Admin: 02/26/18 11:19 Dose: 25 mg Tamsulosin HCl (Flomax -) 0.4 mg PO DAILY@0830 [facility] Last Admin: 02/27/18 08:50 Dose: 0.4 mg Trimethoprim/Sulfamethoxazole (Bactrim Oral Suspension -) 40 mg GT DAILY [facility] Last Admin: 02/26/18 11:25 Dose: 40 mg - Objective Vital Signs: Vital Signs Temperature 98.4 F 02/27/18 06:00 Pulse Rate 110 H 02/27/18 08:00 Respiratory Rate 19 02/27/18 08:00 Blood Pressure 111/73 02/27/18 08:00 O2 Sat by Pulse Oximetry (%) 98 02/27/18 07:27 Constitutional: Yes: Thin Eyes: Yes: EOM Intact HENT: Yes: Other Neck: Yes: Decreased ROM Cardiovascular: Yes: Pulse Irregular Respiratory: Yes: Diminished, Mechanically Ventilated Gastrointestinal: Yes: Soft, Other (PEG site dry) Genitourinary: No: Anuria Musculoskeletal: Yes: Muscle Weakness, Other (moves all extremities, but weakly ; keeps hands balled up) Extremities: Yes: Cool Edema: No Peripheral Pulses WNL: Yes Integumentary: Yes: WNL Neurological: Yes: Pre-Existing Deficit (s/p traumatic brain injury), Other ( dementia) Psychiatric: Yes: Other (dementia) Labs: CBC, BMP 02/27/18 05:30 02/27/18 05:30 INR, PTT INR 1.13 (0.82-1.09) 02/16/18 22:40 Problem List - Problems (1) Anemia Assessment/Plan: s/p EGD, cauterization, and PRBCs. Dark stools noted overnight. 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 On Assist control. Code(s): J96.10 - CHRONIC RESPIRATORY FAILURE, UNSP W HYPOXIA OR HYPERCAPNIA Qualifiers: Respiratory failure complication: unspecified whether with hypoxia or hypercapnia Qualified Code(s): J96.10 - Chronic respiratory failure, unspecified whether with hypoxia or hypercapnia (4) Hematuria Code(s): R31.9 - HEMATURIA, UNSPECIFIED (5) Hypotension Code(s): I95.9 - HYPOTENSION, UNSPECIFIED (6) PAF (paroxysmal atrial fibrillation) Assessment/Plan: EKG 02/23/18: AF with RVR (HR 150 bpm); now has HR in 80s bpm. On diltiazem IV drip due to paroxysmal AF with RVR. Restart metoprolol at low dose (12.5 mg bid), and then titrate off diltiazem. If pt becomes profoundly bradycardia, will have to consider PPM. anticoagulation held due to GI bleed. TSH 3.59 recently. Code(s): I48.0 - PAROXYSMAL ATRIAL FIBRILLATION (7) S/P percutaneous endoscopic gastrostomy (PEG) tube placement Assessment/Plan: site appears intact/ for lavage (anemia) Code(s): Z93.1 - GASTROSTOMY STATUS (8) Acute on chronic diastolic CHF (congestive heart failure) Code(s): I50.33 - ACUTE ON CHRONIC DIASTOLIC (CONGESTIVE) HEART FAILURE (9) Sinus bradycardia Code(s): R00.1 - BRADYCARDIA, UNSPECIFIED (10) TBI (traumatic brain injury) Code(s): S06.9X9A - UNSP INTRACRANIAL INJURY W LOC OF UNSP DURATION, INIT Qualifiers: Encounter type: sequela Loss of consciousness presence/duration: with LOC of unspecified duration Qualified Code(s): S06.9X9S - Unspecified intracranial injury with loss of consciousness of unspecified duration, sequela (11) Severe mitral regurgitation Code(s): I34.0 - NONRHEUMATIC MITRAL (VALVE) INSUFFICIENCY (12) Hypokalemia Assessment/Plan: Replete; and kepp K+ 4-4.5 F/u Mg, and keep 2-2.3 Keep PO4 2.5-3.5 Code(s): E87.6 - HYPOKALEMIA (13) Hypoalbuminemia Code(s): E88.09 - [facility] DISORDERS OF PLASMA-PROTEIN METABOLISM, NEC Assessment/Plan CCU time spent: 40 minutesCCU time spent: 35 minutes.
[2018-02-27] MEDS: SULFAMETHOXAZOLE/TMP 200MG-40MG/5ML GT SCH (09:24)
[2018-02-27] MEDS: OXYBUTYNIN CHLORIDE 5 MG TABLET NGT SCH ×2 (09:31→21:18)
[2018-02-27] MEDS: FERROUS SO4 300 MG/5 ML ORAL SOLN UNIT DOSE CUPS GT SCH (09:31)
[2018-02-27] MEDS: METOPROLOL TARTRATE 25 MG TABLET (FP) GT SCH ×2 (09:31→21:18)
[2018-02-27] MEDS: SERTRALINE HCL 25 MG TABLET (FP) PO SCH (09:32)
[2018-02-27] MEDS: ARTIFICIAL TEARS (POLYVINYL ALCOHOL 1.4%) OPTH DROPS OU SCH ×2 (09:33→21:17)
--- NOTE | 2018-02-27 09:34 | PN ---
Progress Note, Physician Chief Complaint: Pt on ventilator/trached. again opens eyes to tactile stimuli; otherwise, no significant response. History of Present Illness: The patient is an 87 year old white male, with a significant past medical history of traumatic fall (s/p neck (C4,5, and 6)/back surgery, tracheotomy placement now ventilator dependent, and PEG tube placement), frequent pneumonia , emphysema, A-fib, diastolic CHF, DM, dementia, renal failure, nonverbal TBI, paraplegic, legally blind and deaf, who presents to the emergency department via EMS from [facility] with, 3 days of hypotension. Now transferred to ICU after being found to have bright red blood on gastric tube lavage that led to PRBCs and heater probe coagulation. Allergies: NKA Social History: Former smoker (Quit 35 years ago). Denies EtOH use and recreational drug use. - Current Medication List Current Medications: Active Medications Acetaminophen (Tylenol -) 650 mg PO Q4H PRN PRN Reason: FEVER Artificial Tears (Artificial Tears) 2 drop OU BID [facility] Last Admin: 02/26/18 22:40 Dose: 2 drop Atorvastatin Calcium (Lipitor -) 10 mg GT HS [facility] Last Admin: 02/26/18 22:35 Dose: 10 mg Bacitracin (Bacitracin -) 1 applic TP TID [facility] Last Admin: 02/27/18 06:15 Dose: 1 applic Chlorhexidine Gluconate (Hibiclens For Decolonization -) 1 applic TP HS [facility] Last Admin: 02/26/18 22:37 Dose: 1 applic Collagenase (Santyl -) 1 applic TP DAILY [facility] Last Admin: 02/26/18 09:51 Dose: 1 applic Diltiazem HCl (Cardizem Injection -) 10 mg IVPUSH Q6H PRN PRN Reason: TACHYCARDIA Docusate Sodium (Colace Liquid -) 100 mg PO DAILY PRN PRN Reason: CONSTIPATION Ferrous Sulfate (Feosol) 300 mg GT DAILY [facility] Last Admin: 02/26/18 11:19 Dose: 300 mg Dextrose/Sodium Chloride (D5-1/4ns+20 Meq Kcl -) 20 meq in 1,000 mls @ 75 mls/ hr IV ASDIR [facility] Last Admin: 02/26/18 20:45 Dose: 75 mls/hr Piperacillin Sod/Tazobactam (Sod 2.25 gm/ Dextrose) 50 mls @ 100 mls/hr IVPB Q8H-IV [facility]; Protocol Last Admin: 02/27/18 02:10 Dose: 100 mls/hr Pantoprazole Sodium 160 mg/ (Dextrose) 290 mls @ 14.5 mls/hr IVPB Q20H [facility] Last Admin: 02/27/18 06:35 Dose: 14.5 mls/hr Diltiazem HCl 125 mg/ Dextrose 125 mls @ 5 mls/hr IVPB TITR [facility]; Protocol Last Admin: 02/26/18 17:36 Dose: 2.5 mg/hr, 2.5 mls/hr Insulin Aspart (Novolog Vial Sliding Scale -) 1 vial SQ ACHS [facility]; Protocol Last Admin: 02/27/18 06:19 Dose: Not Given Insulin Detemir (Levemir Vial) 20 units SQ [facility] Last Admin: 02/26/18 23:00 Dose: 20 units Levothyroxine Sodium (Synthroid -) 37.5 mcg PEG DAILY@0700 [facility] Last Admin: 02/27/18 06:15 Dose: 37.5 mcg Metoprolol Tartrate (Lopressor -) 12.5 mg GT BID [facility] Last Admin: 02/26/18 22:35 Dose: 12.5 mg Mupirocin (Bactroban Ointment (For Decolonization) -) 1 applic NS BID [facility] Stop: 03/01/18 21:59 Last Admin: 02/26/18 22:39 Dose: 1 applic Non-Formulary Medication (Non-Formulary Med) 1 each GT DAILY [facility] Last Admin: 02/26/18 11:27 Dose: 1 each Nystatin (Nystop Powder -) 1 applic TP BID [facility] Last Admin: 02/26/18 22:38 Dose: 1 applic Oxybutynin Chloride (Ditropan -) 5 mg NGT BID [facility] Last Admin: 02/26/18 22:35 Dose: 5 mg Senna (Senna Oral Solution -) 8.8 mg PO HS [facility] Last Admin: 02/26/18 22:39 Dose: 8.8 mg Sertraline HCl (Zoloft -) 25 mg PO DAILY [facility] Last Admin: 02/26/18 11:19 Dose: 25 mg Tamsulosin HCl (Flomax -) 0.4 mg PO DAILY@0830 [facility] Last Admin: 02/27/18 08:50 Dose: 0.4 mg Trimethoprim/Sulfamethoxazole (Bactrim Oral Suspension -) 40 mg GT DAILY [facility] Last Admin: 02/26/18 11:25 Dose: 40 mg - Objective Vital Signs: Vital Signs Temperature 98.4 F 02/27/18 06:00 Pulse Rate 110 H 02/27/18 08:00 Respiratory Rate 19 02/27/18 08:00 Blood Pressure 111/73 02/27/18 08:00 O2 Sat by Pulse Oximetry (%) 98 02/27/18 07:27 Constitutional: Yes: Thin Eyes: Yes: WNL HENT: Yes: Other Neck: Yes: Decreased ROM, Other (tracheostomy) Cardiovascular: Yes: Regular Rate and Rhythm Respiratory: Yes: Diminished Gastrointestinal: Yes: Soft ...Rectal Exam: Yes: Deferred Genitourinary: No: Anuria Musculoskeletal: Yes: Muscle Weakness Extremities: Yes: Cool Edema: Yes Edema: LLE: Trace, RLE: Trace Peripheral Pulses WNL: No Peripheral Pulses: Left Doralis Pedis: 1+, Right Dorsalis Pedis: 1+ Neurological: Yes: Weakness Psychiatric: Yes: Other (dementia) Labs: CBC, BMP 02/27/18 05:30 02/27/18 05:30 INR, PTT INR 1.13 (0.82-1.09) 02/16/18 22:40 Problem List - Problems (1) Anemia Assessment/Plan: s/p EGD, cauterization, and PRBCs. Hb 9.2-->9.5 over the past 24 hours F/u BUn/Cr Code(s): D64.9 - ANEMIA, UNSPECIFIED Qualifiers: Anemia type: due to chronic kidney disease Chronic kidney disease stage: unspecified stage Qualified Code(s): N18.9 - Chronic kidney disease, unspecified; D63.1 - Anemia in chronic kidney disease (2) Chronic respiratory failure Assessment/Plan: Ventilator dependent; on trach. Code(s): J96.10 - CHRONIC RESPIRATORY FAILURE, UNSP W HYPOXIA OR HYPERCAPNIA Qualifiers: Respiratory failure complication: unspecified whether with hypoxia or hypercapnia Qualified Code(s): J96.10 - Chronic respiratory failure, unspecified whether with hypoxia or hypercapnia (3) Hematuria Code(s): R31.9 - HEMATURIA, UNSPECIFIED (4) Hypotension Code(s): I95.9 - HYPOTENSION, UNSPECIFIED (5) PAF (paroxysmal atrial fibrillation) Assessment/Plan: EKG 02/23/18: AF with RVR (HR 150 bpm); now has HR in 80s bpm. On diltiazem IV drip due to paroxysmal AF with RVR. Would restart metoprolol at low dose (12.5 mg bid), and then titrate off diltiazem. If pt becomes profoundly bradycardia, will have to consider PPM. TSH 3.59 recently. Code(s): I48.0 - PAROXYSMAL ATRIAL FIBRILLATION (6) S/P percutaneous endoscopic gastrostomy (PEG) tube placement Code(s): Z93.1 - GASTROSTOMY STATUS (7) Acute on chronic diastolic CHF (congestive heart failure) Code(s): I50.33 - ACUTE ON CHRONIC DIASTOLIC (CONGESTIVE) HEART FAILURE (8) Sinus bradycardia Code(s): R00.1 - BRADYCARDIA, UNSPECIFIED (9) TBI (traumatic brain injury) Code(s): S06.9X9A - UNSP INTRACRANIAL INJURY W LOC OF UNSP DURATION, INIT Qualifiers: Encounter type: sequela Loss of consciousness presence/duration: with LOC of unspecified duration Qualified Code(s): S06.9X9S - Unspecified intracranial injury with loss of consciousness of unspecified duration, sequela (10) Severe mitral regurgitation Code(s): I34.0 - NONRHEUMATIC MITRAL (VALVE) INSUFFICIENCY (11) Hypokalemia Code(s): E87.6 - HYPOKALEMIA Assessment/Plan CCU time spent: 40 minutesCCU time spent: 35 minutes.
[2018-02-27] MEDS: NON-FORMULARY MED GT SCH (09:42)
[2018-02-27] MEDS: NYSTATIN POWDER 100,000 UNITS/GM - 15 GM TOPICAL POWDER TP SCH ×2 (09:48→21:19)
[2018-02-27] MEDS: MUPIROCIN 2% TOPICAL OINTMENT FOR DECOLONIZATION NS SCH ×2 (09:49→21:18)
--- NOTE | 2018-02-27 09:49 | PN ---
Progress Note (short form) - Note Progress Note: PULMONARY Vented, more awake. 3 episodes of dark loose stools overnight per nursing. Vital Signs Period Temp Pulse Resp BP Sys/Wills Pulse Ox Last 24 Hr 97.6 F-98.4 F 74-111 14-25 92-115/45-80 97-100 Intake & Output 02/24/18 02/25/18 02/26/18 02/27/18 23:59 23:59 23:59 23:59 Intake Total 3008 2488.5 2664.5 976.5 Output Total 1100 2600 1900 500 Balance 1908 -111.5 764.5 476.5 Weight 66.95 kg 61.915 kg 64.665 kg 65.799 kg Gen: vented, more awake Heart: RRR Lung: decreased breath sounds at the bases Abd: soft, nontender Ext: no edema CBC, BMP 02/27/18 05:30 02/27/18 05:30 Active Medications Acetaminophen (Tylenol -) 650 mg PO Q4H PRN PRN Reason: FEVER Artificial Tears (Artificial Tears) 2 drop OU BID [facility] Last Admin: 02/27/18 09:33 Dose: 2 drop Atorvastatin Calcium (Lipitor -) 10 mg GT HS [facility] Last Admin: 02/26/18 22:35 Dose: 10 mg Bacitracin (Bacitracin -) 1 applic TP TID [facility] Last Admin: 02/27/18 06:15 Dose: 1 applic Chlorhexidine Gluconate (Hibiclens For Decolonization -) 1 applic TP HS [facility] Last Admin: 02/26/18 22:37 Dose: 1 applic Collagenase (Santyl -) 1 applic TP DAILY [facility] Last Admin: 02/26/18 09:51 Dose: 1 applic Diltiazem HCl (Cardizem Injection -) 10 mg IVPUSH Q6H PRN PRN Reason: TACHYCARDIA Docusate Sodium (Colace Liquid -) 100 mg PO DAILY PRN PRN Reason: CONSTIPATION Ferrous Sulfate (Feosol) 300 mg GT DAILY [facility] Last Admin: 02/27/18 09:31 Dose: 300 mg Piperacillin Sod/Tazobactam (Sod 2.25 gm/ Dextrose) 50 mls @ 100 mls/hr IVPB Q8H-IV [facility]; Protocol Last Admin: 02/27/18 09:32 Dose: 100 mls/hr Insulin Aspart (Novolog Vial Sliding Scale -) 1 vial SQ [facility]; Protocol Last Admin: 02/27/18 06:19 Dose: Not Given Insulin Detemir (Levemir Vial) 20 units SQ [facility] Last Admin: 02/26/18 23:00 Dose: 20 units Levothyroxine Sodium (Synthroid -) 37.5 mcg PEG DAILY@0700 [facility] Last Admin: 02/27/18 06:15 Dose: 37.5 mcg Metoprolol Tartrate (Lopressor -) 12.5 mg GT BID [facility] Last Admin: 02/27/18 09:31 Dose: 12.5 mg Mupirocin (Bactroban Ointment (For Decolonization) -) 1 applic NS BID [facility] Stop: 03/01/18 21:59 Last Admin: 02/26/18 22:39 Dose: 1 applic Non-Formulary Medication (Non-Formulary Med) 1 each GT DAILY [facility] Last Admin: 02/27/18 09:42 Dose: 1 each Nystatin (Nystop Powder -) 1 applic TP BID [facility] Last Admin: 02/26/18 22:38 Dose: 1 applic Oxybutynin Chloride (Ditropan -) 5 mg NGT BID [facility] Last Admin: 02/27/18 09:31 Dose: 5 mg Pantoprazole Sodium (Protonix Packets For Oral Suspension -) 40 mg NGT DAILY [facility] Senna (Senna Oral Solution -) 8.8 mg PO [facility] Last Admin: 02/26/18 22:39 Dose: 8.8 mg Sertraline HCl (Zoloft -) 25 mg PO DAILY [facility] Last Admin: 02/27/18 09:32 Dose: 25 mg Tamsulosin HCl (Flomax -) 0.4 mg PO DAILY@0830 [facility] Last Admin: 02/27/18 08:50 Dose: 0.4 mg Trimethoprim/Sulfamethoxazole (Bactrim Oral Suspension -) 40 mg GT DAILY [facility] Last Admin: 02/27/18 09:24 Dose: 40 mg A/P GI Bleed/Gastric [place] Lesion s/p EGD/epi/cautery Acute Blood Loss Anemia Chronic Respiratory Failure Pneumonia h/o Traumatic Brain Injury Functional Quadriplegia Acute on Chronic Renal Failure Atrial Fibrillation DM Dementia - monitor H/H - protonix - antibiotics per ID - rate control - holding anticoagulation - continue volume assist control - poor candidate for weaning due to poor mental status - enteral feeds - DVT/GI prophylaxis - can monitor on vent floor
[2018-02-27] MEDS ORDERED: RANITIDINE HCL 150 MG/10 ML UNIT-DOSE NGT SCH (10:00)
[2018-02-27] MEDS: COLLAGENASE CLOSTRIDIUM HIST. 30 GRAMS TUBE TP SCH (11:00)
--- NOTE | 2018-02-27 11:31 | PN ---
Teaching Attending Note Name of Resident: Demi Hunter ATTENDING PHYSICIAN STATEMENT I saw and evaluated the patient. I reviewed the resident's note and discussed the case with the resident. I agree with the resident's findings and plan as documented with exceptions below. SUBJECTIVE: patient seen and examined, More awake, eyes open, unable to assess for ROS. OBJECTIVE: Vital Signs Period Temp Pulse Resp BP Sys/Wills Pulse Ox Last 24 Hr 97.6 F-98.4 F 74-111 14-25 92-115/48-80 97-100 Intake & Output 02/24/18 02/25/18 02/26/18 02/27/18 23:59 23:59 23:59 23:59 Intake Total 3008 2488.5 2664.5 976.5 Output Total 1100 2600 1900 500 Balance 1908 -111.5 764.5 476.5 Weight 147 lb 9.6 oz 136 lb 8 oz 142 lb 9 oz 145 lb 1 oz General: lying in bed, awake , in no acute distress Chest: no rales anteriorly, limited exam Abdomen:Soft, ND, no grimacing on deep palpation, positive bowel sounds extremities: minimal edema Home Medications Medication Instructions Recorded Acetaminophen [Tylenol] 650 mg PO Q6H PRN 01/21/18 Bacitracin - [Bacitracin Topical 1 applic TP TID 01/21/18 Ointment -] Baclofen 10 mg GT Q8H 01/21/18 Balsam Purvis/[place] Oil [Venelex 1 applic TP BID 01/21/18 Ointment] Docusate Sodium [Colace -] 100 mg GT ASDIR 01/21/18 Ferrous Sulfate [Feosol] 300 mg GT DAILY 01/21/18 Glycopyrrolate/Formoterol Fum 0 gm IH BID 01/21/18 [Bevespi Aerosphere Inhaler] Heparin - 5,000 unit SQ BID 01/21/18 Hypromellose 0.5% Opth Soln 2 drop OU BID 01/21/18 [Artificial Tears] Insulin Glargine,Hum.rec.anlog 9 units SQ HS 01/21/18 [Lantus Solostar PEN -] Insulin Lispro [Humalog] 0 unit SQ Q6H 01/21/18 L.acidoph,Paracasei, B.lactis 1 each GT DAILY 01/21/18 [Probiotic] Lanolin/Mineral Oil [Eucerin 1 applic TP Q6H 01/21/18 Original Lotion] Levothyroxine Sodium [Synthroid] 37.5 mcg GT BID 01/21/18 Oxybutynin Chloride 5 mg GT BID 01/21/18 Ranitidine [Zantac -] 150 mg GT DAILY 01/21/18 Sertraline HCl [Zoloft] 25 mg GT DAILY 01/21/18 Silver Sulfadiazine 1% Top Cr 1 applic TP DAILY 01/21/18 [Silvadene -] Simethicone 40 mg GT Q6H 01/21/18 Simvastatin 20 mg GT DAILY 01/21/18 Tamsulosin HCl 0.4 mg GT DAILY 01/21/18 Zinc Oxide 1 applic TP BID 01/21/18 Levothyroxine [Synthroid -] 37.5 mcg PEG DAILY@0700 tablet 02/08/18 Sodium Chloride Nasal Harrison [Chetek 2 spray NS TID spray 02/08/18 Harrison Nasal Harrison -] Aspirin [ASA -] 81 mg PO DAILY #30 tab.chew 02/09/18 Furosemide Oral Solution [Lasix 40 mg GT BID #300 udc 02/09/18 Oral Solution -] Nut.tx.imp.renal Fxn,Lac-Reduc 1,000 ml PO DAILY #1000 ml 02/09/18 [Nepro Carb Steady] Potassium Chloride 40 meq GT DAILY #40 meq 02/09/18 Active Medications Acetaminophen (Tylenol -) 650 mg PO Q4H PRN PRN Reason: FEVER Artificial Tears (Artificial Tears) 2 drop OU BID [facility] Last Admin: 02/27/18 09:33 Dose: 2 drop Atorvastatin Calcium (Lipitor -) 10 mg GT HS [facility] Last Admin: 02/26/18 22:35 Dose: 10 mg Bacitracin (Bacitracin -) 1 applic TP TID [facility] Last Admin: 02/27/18 06:15 Dose: 1 applic Chlorhexidine Gluconate (Hibiclens For Decolonization -) 1 applic TP HS [facility] Last Admin: 02/26/18 22:37 Dose: 1 applic Collagenase (Santyl -) 1 applic TP DAILY [facility] Last Admin: 02/26/18 09:51 Dose: 1 applic Diltiazem HCl (Cardizem Injection -) 10 mg IVPUSH Q6H PRN PRN Reason: TACHYCARDIA Docusate Sodium (Colace Liquid -) 100 mg PO DAILY PRN PRN Reason: CONSTIPATION Ferrous Sulfate (Feosol) 300 mg GT DAILY [facility] Last Admin: 02/27/18 09:31 Dose: 300 mg Piperacillin Sod/Tazobactam (Sod 2.25 gm/ Dextrose) 50 mls @ 100 mls/hr IVPB Q8H-IV [facility]; Protocol Last Admin: 02/27/18 09:32 Dose: 100 mls/hr Insulin Aspart (Novolog Vial Sliding Scale -) 1 vial SQ [facility]; Protocol Last Admin: 02/27/18 10:46 Dose: Not Given Insulin Detemir (Levemir Vial) 20 units SQ [facility] Last Admin: 02/26/18 23:00 Dose: 20 units Levothyroxine Sodium (Synthroid -) 37.5 mcg PEG DAILY@0700 [facility] Last Admin: 02/27/18 06:15 Dose: 37.5 mcg Metoprolol Tartrate (Lopressor -) 12.5 mg GT BID [facility] Last Admin: 02/27/18 09:31 Dose: 12.5 mg Mupirocin (Bactroban Ointment (For Decolonization) -) 1 applic NS BID [facility] Stop: 03/01/18 21:59 Last Admin: 02/27/18 09:49 Dose: 1 applic Non-Formulary Medication (Non-Formulary Med) 1 each GT DAILY [facility] Last Admin: 02/27/18 09:42 Dose: 1 each Nystatin (Nystop Powder -) 1 applic TP BID [facility] Last Admin: 02/27/18 09:48 Dose: 1 applic Oxybutynin Chloride (Ditropan -) 5 mg NGT BID [facility] Last Admin: 02/27/18 09:31 Dose: 5 mg Ranitidine HCl (Zantac Oral Solution -) 150 mg NGT BID [facility] Last Admin: 02/27/18 10:35 Dose: 150 mg Senna (Senna Oral Solution -) 8.8 mg PO [facility] Last Admin: 02/26/18 22:39 Dose: 8.8 mg Sertraline HCl (Zoloft -) 25 mg PO DAILY [facility] Last Admin: 02/27/18 09:32 Dose: 25 mg Tamsulosin HCl (Flomax -) 0.4 mg PO DAILY@0830 [facility] Last Admin: 02/27/18 08:50 Dose: 0.4 mg Trimethoprim/Sulfamethoxazole (Bactrim Oral Suspension -) 40 mg GT DAILY [facility] Last Admin: 02/27/18 09:24 Dose: 40 mg Laboratory Results - last 24 hr 02/22/18 02/26/18 02/26/18 15:30 12:03 23:09 WBC RBC Hgb Hct MCV MCH MCHC RDW Plt Count MPV Absolute Neuts (auto) Neutrophils % Lymphocytes % Monocytes % Eosinophils % Basophils % Nucleated RBC % Sodium Potassium Chloride Carbon Dioxide Anion Gap BUN Creatinine Creat Clearance w eGFR POC Glucometer 79.24989 182.77417 Random Glucose Calcium Phosphorus Magnesium Total Bilirubin AST ALT Alkaline Phosphatase Total Protein Albumin Blood Type O POSITIVE Antibody Screen Negative Crossmatch See Detail 02/27/18 02/27/18 02/27/18 05:30 05:30 06:18 WBC 9.6 RBC 3.02 L Hgb 9.1 L Hct 27.0 L MCV 89.6 MCH 30.2 MCHC 33.7 RDW 18.2 H Plt Count 168 MPV 10.3 Absolute Neuts (auto) 8.0 Neutrophils % 82.8 Lymphocytes % 11.0 Monocytes % 4.6 Eosinophils % 1.3 Basophils % 0.3 Nucleated RBC % 0 Sodium 148 H Potassium 3.3 L Chloride 116 H Carbon Dioxide 24 Anion Gap 8 BUN 139 H* D Creatinine 2.4 H Creat Clearance w eGFR 25.86 POC Glucometer 129.54128 Random Glucose 106 D Calcium 7.6 L Phosphorus 3.9 Magnesium 2.0 Total Bilirubin 0.4 AST 13 L ALT 38 Alkaline Phosphatase 50 Total Protein 5.2 L Albumin 2.0 L Blood Type Antibody Screen Crossmatch 02/27/18 10:43 WBC RBC Hgb Hct MCV MCH MCHC RDW Plt Count MPV Absolute Neuts (auto) Neutrophils % Lymphocytes % Monocytes % Eosinophils % Basophils % Nucleated RBC % Sodium Potassium Chloride Carbon Dioxide Anion Gap BUN Creatinine Creat Clearance w eGFR POC Glucometer 88.05331 Random Glucose Calcium Phosphorus Magnesium Total Bilirubin AST ALT Alkaline Phosphatase Total Protein Albumin Blood Type Antibody Screen Crossmatch Microbiology 02/17/18 03:00 Blood - Peripheral Venous Blood Culture - Final NO GROWTH AFTER 5 DAYS INCUBATION 02/17/18 03:00 Blood - Peripheral Venous Blood Culture - Final NO GROWTH AFTER 5 DAYS INCUBATION 02/17/18 10:40 Sputum - Endotrachea Suction/Ventilator Gram Stain - Final 02/17/18 10:40 Sputum - Endotrachea Suction/Ventilator Sputum Culture - Final Pseudomonas Aeruginosa Pseudo Fluorescens/Put[place] 02/16/18 23:40 Urine - Urine Clean Catch Urine Culture - Final NO GROWTH OBTAINED ASSESSMENT AND PLAN: 87 year old male with a significant past medical history of diastolic heart failure, NIDDM, CKD, and 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 Admitted on 02/17/18 from [facility] chronic respiratory failure and severe anemia with a hg of 5.5 and hypotension. -Acute Upper GI bleed from Dileufoy lesion -Acute blood loss anemia s/p 6 units PRBCs -Acute on chronic vent dependent respiratory failure, likely aspiration PNA. 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 h/h stable. repeat gastric lavage clear. Discussed with GI, stop PPI drip, start on Feeds. PPI Once daily. D/c IVF as feeds resumed. Zosyn day 13/Bactrim day 3, sputum cultures with pseudomonas, WBC stable, monitor for now, discussed with Dr. Garza, plan for jail antiboitics. At baseline vent settings, off steroids, monitor Pulmonary input appreciated. Cardiology input appreciated. Low dose metoprolol as tolerated. Off diltiazem drip. Patient with good bowel sounds, had 2 BM yesterday, large, non tender abdomen with improved distension and abdominal xray. Clinically not concerning for Sigmoid volvulus. GI/surgery input noted. CT A/P noted. hematology input noted. Continue Fe supplementation. Monitor renal function, cr overall plateaued, Renal input noted. -Levemir, ISS, resume tube feeds. Continue oxybutynin/flomax/zoloft. DVTPPX with SCDs given recurrent anemia with multiple transfusions and active GI bleed. . Plan discussed with nursing. Total critical care time spent 40 min.
--- NOTE | 2018-02-27 12:04 | PN ---
Progress Note, Physician History of Present Illness: Pt seen and examined. Chart reviewed, labs/xrays results noted. Pt is on MV without distress. Remains afebrile. - Current Medication List Current Medications: Active Medications Acetaminophen (Tylenol -) 650 mg PO Q4H PRN PRN Reason: FEVER Artificial Tears (Artificial Tears) 2 drop OU BID [facility] Last Admin: 02/27/18 09:33 Dose: 2 drop Atorvastatin Calcium (Lipitor -) 10 mg GT HS [facility] Last Admin: 02/26/18 22:35 Dose: 10 mg Bacitracin (Bacitracin -) 1 applic TP TID [facility] Last Admin: 02/27/18 06:15 Dose: 1 applic Chlorhexidine Gluconate (Hibiclens For Decolonization -) 1 applic TP HS [facility] Last Admin: 02/26/18 22:37 Dose: 1 applic Collagenase (Santyl -) 1 applic TP DAILY [facility] Last Admin: 02/26/18 09:51 Dose: 1 applic Diltiazem HCl (Cardizem Injection -) 10 mg IVPUSH Q6H PRN PRN Reason: TACHYCARDIA Docusate Sodium (Colace Liquid -) 100 mg PO DAILY PRN PRN Reason: CONSTIPATION Ferrous Sulfate (Feosol) 300 mg GT DAILY [facility] Last Admin: 02/27/18 09:31 Dose: 300 mg Piperacillin Sod/Tazobactam (Sod 2.25 gm/ Dextrose) 50 mls @ 100 mls/hr IVPB Q8H-IV [facility]; Protocol Last Admin: 02/27/18 09:32 Dose: 100 mls/hr Insulin Aspart (Novolog Vial Sliding Scale -) [address] [facility]; Protocol Last Admin: 02/27/18 10:46 Dose: Not Given Insulin Detemir (Levemir Vial) 20 units SQ [facility] Last Admin: 02/26/18 23:00 Dose: 20 units Levothyroxine Sodium (Synthroid -) 37.5 mcg PEG DAILY@0700 [facility] Last Admin: 02/27/18 06:15 Dose: 37.5 mcg Metoprolol Tartrate (Lopressor -) 12.5 mg GT BID [facility] Last Admin: 02/27/18 09:31 Dose: 12.5 mg Mupirocin (Bactroban Ointment (For Decolonization) -) 1 applic NS BID [facility] Stop: 03/01/18 21:59 Last Admin: 06/23/18 09:49 Dose: 1 applic Non-Formulary Medication (Non-Formulary Med) 1 each GT DAILY [facility] Last Admin: 02/27/18 09:42 Dose: 1 each Nystatin (Nystop Powder -) 1 applic TP BID [facility] Last Admin: 02/27/18 09:48 Dose: 1 applic Oxybutynin Chloride (Ditropan -) 5 mg NGT BID [facility] Last Admin: 02/27/18 09:31 Dose: 5 mg Ranitidine HCl (Zantac Oral Solution -) 150 mg NGT BID [facility] Last Admin: 02/27/18 10:35 Dose: 150 mg Senna (Senna Oral Solution -) 8.8 mg PO HS [facility] Last Admin: 02/26/18 22:39 Dose: 8.8 mg Sertraline HCl (Zoloft -) 25 mg PO DAILY [facility] Last Admin: 02/27/18 09:32 Dose: 25 mg Tamsulosin HCl (Flomax -) 0.4 mg PO DAILY@0830 [facility] Last Admin: 02/27/18 08:50 Dose: 0.4 mg Trimethoprim/Sulfamethoxazole (Bactrim Oral Suspension -) 40 mg GT DAILY [facility] Last Admin: 02/27/18 09:24 Dose: 40 mg - Objective Vital Signs: Vital Signs Temperature 98.4 F 02/27/18 06:00 Pulse Rate 110 H 02/27/18 10:00 Respiratory Rate 16 02/27/18 10:00 Blood Pressure 107/68 02/27/18 10:00 O2 Sat by Pulse Oximetry (%) 98 02/27/18 07:27 Constitutional: Yes: No Distress Cardiovascular: Yes: Tachycardia Respiratory: Yes: CTA Bilaterally Gastrointestinal: Yes: Normal Bowel Sounds, Soft, Other (+GT) Genitourinary: Yes: Childs Present Extremities: Yes: WNL Edema: No Labs: CBC, BMP 02/27/18 05:30 02/27/18 05:30 INR, PTT INR 1.13 (0.82-1.09) 02/16/18 22:40 Microbiology 02/17/18 03:00 Blood - Peripheral Venous Blood Culture - Final NO GROWTH AFTER 5 DAYS INCUBATION 02/17/18 03:00 Blood - Peripheral Venous Blood Culture - Final NO GROWTH AFTER 5 DAYS INCUBATION 02/17/18 10:40 Sputum - Endotrachea Suction/Ventilator Gram Stain - Final 02/17/18 10:40 Sputum - Endotrachea Suction/Ventilator Sputum Culture - Final Pseudomonas Aeruginosa Pseudo Fluorescens/[place] 02/16/18 23:40 Urine - Urine Clean Catch Urine Culture - Final NO GROWTH OBTAINED - ....Imaging Chest X-ray: Report Reviewed Problem List - Problems (1) [id number] renal failure Code(s): N17.9 - ACUTE KIDNEY FAILURE, UNSPECIFIED; N18.9 - CHRONIC KIDNEY DISEASE, UNSPECIFIED Qualifiers: Acute renal failure type: unspecified Chronic kidney disease stage: stage 3 (moderate) Qualified Code(s): N17.9 - Acute kidney failure, unspecified; N18.3 - Chronic kidney disease, stage 3 (moderate) (2) Anemia Code(s): D64.9 - ANEMIA, UNSPECIFIED Qualifiers: Anemia type: due to chronic kidney disease Chronic kidney disease stage: unspecified stage Qualified Code(s): N18.9 - Chronic kidney disease, unspecified; D63.1 - Anemia in chronic kidney disease (3) Chronic respiratory failure Code(s): J96.10 - CHRONIC RESPIRATORY FAILURE, UNSP W HYPOXIA OR HYPERCAPNIA Qualifiers: Respiratory failure complication: unspecified whether with hypoxia or hypercapnia Qualified Code(s): J96.10 - Chronic respiratory failure, unspecified whether with hypoxia or hypercapnia (4) Hypotension Code(s): I95.9 - HYPOTENSION, UNSPECIFIED (5) PAF (paroxysmal atrial fibrillation) Code(s): I48.0 - PAROXYSMAL ATRIAL FIBRILLATION (6) CHF (congestive heart failure) Code(s): I50.9 - HEART FAILURE, UNSPECIFIED Qualifiers: Heart failure type: diastolic Heart failure chronicity: chronic Qualified Code(s): I50.32 - Chronic diastolic (congestive) heart failure (7) Diabetes Code(s): E11.9 - TYPE 2 DIABETES MELLITUS WITHOUT COMPLICATIONS Qualifiers: Diabetes mellitus type: type 2 Diabetes mellitus rn long term care insulin use: unspecified fdc insulin use status Diabetes mellitus complication status : with kidney complications Diabetes mellitus complication detail: with chronic kidney disease Chronic kidney disease stage: stage 3 (moderate) Qualified Code(s): E11.22 - Type 2 diabetes mellitus with diabetic chronic kidney disease; N18.3 - Chronic kidney disease, stage 3 (moderate) (8) Hypothyroid Code(s): E03.9 - HYPOTHYROIDISM, UNSPECIFIED (9) TBI (traumatic brain injury) Code(s): S06.9X9A - UNSP INTRACRANIAL INJURY W LOC OF UNSP DURATION, INIT Qualifiers: Encounter type: sequela Loss of consciousness presence/duration: with LOC of unspecified duration Qualified Code(s): S06.9X9S - Unspecified intracranial injury with loss of consciousness of unspecified duration, sequela Assessment/Plan 87M with PMH of traumatic fall (s/p cervical/back surgery) , Respiratory faillure s/p trach now ventilator dependent,pneumonia, emphysema, A-fib, CHF, DM , dementia, renal failure,TBI, paraplegia, and legal blindness/ deafness, who presented from [facility] with hypotension and hypoxia Pseudomonas aeroginosa/putida PNA Sepsis Respiratory Failure/ MV dependent AFIB CHF DM CKD -- Pt currently afebrile, without distress -- continue Zosyn/Bactrim -- continue monitor vitals rest of care per ICU cc: 40 min
--- NOTE | 2018-02-27 15:38 | PN ---
Physical Exam: SUBJECTIVE: Patient seen and examined. Events overnight; 3 dark loose stools as per nurse. No BM this morning. Hemoglobin dropped to 9.1 from 9.5. yesterday. Chronically vented with trach OBJECTIVE: Vital Signs Period Temp Pulse Resp BP Sys/Wills Pulse Ox Last 24 Hr 97.6 F-98.4 F 74-130 14-25 80-115/48-80 97-98 GENERAL: The patient is awake, nonverbal at baseline NECK: chronic tracheostomy in place LUNGS: Breath sounds equal, clear to auscultation bilaterally, no wheezes, no crackles, no accessory muscle use. HEART: tachycardia irregular rhythm, S1, S2 without murmur, rub or gallop. ABDOMEN: Soft, nontender, nondistended, normoactive bowel sounds, peg tube in place EXTREMITIES: 2+ pulses, warm, well-perfused, no edema. Laboratory Results - last 24 hr 02/22/18 02/26/18 02/27/18 15:30 23:09 05:30 WBC 9.6 RBC 3.02 L Hgb 9.1 L Hct 27.0 L MCV 89.6 MCH 30.2 MCHC 33.7 RDW 18.2 H Plt Count 168 MPV 10.3 Absolute Neuts (auto) 8.0 Neutrophils % 82.8 Lymphocytes % 11.0 Monocytes % 4.6 Eosinophils % 1.3 Basophils % 0.3 Nucleated RBC % 0 Sodium Potassium Chloride Carbon Dioxide Anion Gap BUN Creatinine Creat Clearance w eGFR POC Glucometer 182.55773 Random Glucose Calcium Phosphorus Magnesium Total Bilirubin AST ALT Alkaline Phosphatase Total Protein Albumin Blood Type O POSITIVE Antibody Screen Negative Crossmatch See Detail 02/27/18 02/27/18 02/27/18 05:30 06:18 10:43 WBC RBC Hgb Hct MCV MCH MCHC RDW Plt Count MPV Absolute Neuts (auto) Neutrophils % Lymphocytes % Monocytes % Eosinophils % Basophils % Nucleated RBC % Sodium 148 H Potassium 3.3 L Chloride 116 H Carbon Dioxide 24 Anion Gap 8 BUN 139 H* D Creatinine 2.4 H Creat Clearance w eGFR 25.86 POC Glucometer 129.97593 88.70626 Random Glucose 106 D Calcium 7.6 L Phosphorus 3.9 Magnesium 2.0 Total Bilirubin 0.4 AST 13 L ALT 38 Alkaline Phosphatase 50 Total Protein 5.2 L Albumin 2.0 L Blood Type Antibody Screen Crossmatch Active Medications Generic Name Dose Route Start Last Admin Trade Name Freq PRN Reason Stop Dose Admin Acetaminophen 650 mg 02/24/18 20:32 Tylenol - PO Q4H PRN FEVER Artificial Tears 2 drop 02/24/18 22:00 02/27/18 09:33 Artificial Tears OU 2 drop BID [facility] Administration Atorvastatin Calcium 10 mg 02/24/18 22:00 02/26/18 22:35 Lipitor - GT 10 mg HS [facility] Administration Bacitracin 1 applic 02/24/18 22:00 02/27/18 06:15 Bacitracin - TP 1 applic TID [facility] Administration Chlorhexidine Gluconate 1 applic 02/24/18 22:00 02/26/18 22:37 Hibiclens For Decolonization - TP 1 applic HS [facility] Administration Collagenase 1 applic 02/25/18 10:00 02/27/18 11:00 Santyl - TP 1 applic DAILY [facility] Administration Diltiazem HCl 10 mg 02/25/18 15:49 Cardizem Injection - IVPUSH Q6H PRN TACHYCARDIA Docusate Sodium 100 mg 02/24/18 20:32 Colace Liquid - PO DAILY PRN CONSTIPATION Ferrous Sulfate 300 mg 02/25/18 10:00 02/27/18 09:31 Feosol GT 300 mg DAILY [facility] Administration Piperacillin Sod/Tazobactam 50 mls @ 100 mls/hr 02/25/18 02:00 02/27/18 09:32 Sod 2.25 gm/ Dextrose IVPB 100 mls/hr Q8H-IV [facility] Administration Protocol Insulin Aspart 1 vial 02/24/18 22:00 02/27/18 10:46 Novolog Vial Sliding Scale - SQ Not Given ACHS [facility] Protocol Insulin Detemir 20 units 02/24/18 22:00 02/26/18 23:00 Levemir Vial SQ 20 units HS [facility] Administration Levothyroxine Sodium 37.5 mcg 02/25/18 07:00 02/27/18 06:15 Synthroid - PEG 37.5 mcg DAILY@0700 [facility] Administration Metoprolol Tartrate 12.5 mg 02/26/18 22:00 02/27/18 09:31 Lopressor - GT 12.5 mg BID [facility] Administration Mupirocin 1 applic 02/24/18 22:00 02/27/18 09:49 Bactroban Ointment (For Decolonization) - NS 03/01/18 21:59 1 applic BID [facility] Administration Non-Formulary Medication 1 each 02/25/18 10:00 02/27/18 09:42 Non-Formulary Med GT 1 each DAILY [facility] Administration Nystatin 1 applic 02/26/18 22:00 02/27/18 09:48 Nystop Powder - TP 1 applic BID [facility] Administration Oxybutynin Chloride 5 mg 02/24/18 22:00 02/27/18 09:31 Ditropan - NGT 5 mg BID [facility] Administration Ranitidine HCl 150 mg 02/27/18 10:00 02/27/18 10:35 Zantac Oral Solution - NGT 150 mg BID [facility] Administration Senna 8.8 mg 02/24/18 22:00 02/26/18 22:39 Senna Oral Solution - PO 8.8 mg HS [facility] Administration Sertraline HCl 25 mg 02/25/18 10:00 02/27/18 09:32 Zoloft - PO 25 mg DAILY [facility] Administration Tamsulosin HCl 0.4 mg 02/25/18 08:30 02/27/18 08:50 Flomax - PO 0.4 mg DAILY@0830 [facility] Administration Trimethoprim/Sulfamethoxazole 40 mg 02/25/18 10:00 02/27/18 09:24 Bactrim Oral Suspension - GT 40 mg DAILY [facility] Administration ASSESSMENT/PLAN: This is a 87 year old male with a past medical history of TBI who is chronically trached on mechanical ventilation with PEG tube, who is non verbal , blind, deaf and paraplegic who was [facility] for severe anemia found to have acute GI bleed. #Acute GI bleed secondary to Dileufoy lesion of the proximal stomach -POD#1 s/p heater probe/epinephrine injection -3 loose dark BM overnight; -gastric lavage tofay; clear ; no blood -H/H currently stable ; -if continues to have loose stool or diarrhea would get C diff -will stop protonix drip; start 40mg through peg tube -start Tube feeds; glucerna -monitor H/H -appreciate GI #anemia secondary to acute blood loss:stable -s/p PRBC -H/H 9.1 today from 9.5; trend -transfusion threshold heme <7 #Acute on chronic hypoxic respiratory failure -chronically trached/vented -on IV antibiotics for likely aspiration PNA #Sigmoid volvulus.? -BS + -abdomen non tender/ nondistended -GI/surgery appr #DM -insulin SS -levemir sq #KATERIN on CKD stage three: -BUN /cr improving; no need for acute HD today -monitor K, Mg, phos -d/c IVF, will #Hypokalemia -K 3.3 today ; -given 40meg via peg tube -trend Mg, K #Hypernatremia -restart tube feed today with 40cc flushes; replace free water #hypothyroid -cont levothyroxine qd #paroxysmal atrial fibrillation -tachycardic HR 110s -currently on rate control metoprolol 12.5 bid -patient has a labile HR when on medication; will hold off on increasing dose for now; can increase or give prn rate control for HR >120 -hold asa/ac due to GI bleed DVT ppl monitor electrolytes cont tube feeds stable to transfer to floor Visit type - Emergency Visit Emergency Visit: No - New Patient This patient is new to me today: Yes Date on this admission: 02/27/18 - Critical Care Critical Care patient: Yes Total Critical Care Time (in minutes): 40 Critical Care Statement: The care of this patient involved high complexity decision making to prevent further life threatening deterioration of the patient 's condition and/or to evaluate & treat vital organ system(s) failure or risk of failure.
--- NOTE | 2018-02-27 16:27 | PN ---
GI Progress Note Subjective: Had dark BM's last night G-Tube was lavaged today. clear per ICU resident Hgb 9.1 today - Objective Vital Signs: Vital Signs Temperature 97.8 F 02/27/18 12:00 Pulse Rate 121 H 02/27/18 15:56 Respiratory Rate 16 02/27/18 15:56 Blood Pressure 84/64 02/27/18 15:56 O2 Sat by Pulse Oximetry (%) 98 02/27/18 07:27 Constitutional: Calm Eyes: No: Sclera Icterus Cardiovascular: Yes: Tachycardia, Pulse Irregular Respiratory: Yes: Diminished (at bases b/l) Gastrointestinal Inspection: No: Distention ...Auscultate: Yes: Normoactive Bowel Sounds ...Percussion: Yes: Tympanitic Edema: No (No LE edema) Labs: CBC, BMP 02/27/18 05:30 02/27/18 05:30 INR, PTT INR 1.13 (0.82-1.09) 02/16/18 22:40 Problem List - Problems (1) Upper GI bleed Assessment/Plan: No overt bleeding Abdominal more distended today with tympany. Ordered KUB to evaluate for ileus / dilated bowel loops Code(s): K92.2 - GASTROINTESTINAL HEMORRHAGE, UNSPECIFIED
[2018-02-27] MEDS ORDERED: dilTIAZem HCL 50 MG/10 ML - 10 ML VIAL IVPUSH PRN (16:55)
[2018-02-27] MEDS ORDERED: DOCUSATE NA 100 MG/10 ML UNIT-DOSE CUPS PO PRN (16:55)
--- NOTE | 2018-02-27 17:28 | PN ---
Progress Note (short form) - Note Progress Note: Reviewed AXR: dilated bowel. ? colonic distention. Will order CT scan of the abdomen and pelvis without contrast Problem List - Problems (1) Upper GI bleed Code(s): K92.2 - GASTROINTESTINAL HEMORRHAGE, UNSPECIFIED
[2018-02-27] MEDS ORDERED: DEXTROSE 5%-0.45% SALINE 1,000 ML IV SCH (19:30)
[2018-02-27] MEDS: ATORVASTATIN CA 10 MG TABLET (FP) GT SCH (21:18)
[2018-02-27] MEDS: SENNOSIDES 8.8 MG/5 ML BULK BOTTLE PO SCH (21:19)
[2018-02-27] MEDS: CHLORHEXIDINE GLUCONATE 4% CLEANSER FOR DECOLONIZATION TP SCH (21:19)
[2018-02-27] MEDS: ACETAMINOPHEN 325 MG TABLET (FP) PO PRN (21:22)
[2018-02-27] MEDS: INSULIN (LEVEMIR) 100 UNITS/ML UNITS SQ SCH (21:31)
[2018-02-28] MEDS: PIPERACILLIN/TAZOB 2.25 GM 2.25 GM in DEXTROSE 5%-WATER - 50 ML IVPB SCH ×3 (02:53→18:24)
[2018-02-28] MEDS: LEVOTHYROXINE NA 25 MCG TABLET (FP) PEG SCH (06:05)
[2018-02-28] MEDS: BACITRACIN 15 GM TUBE TOPICAL OINTMENT TP SCH ×3 (06:05→21:15)
[2018-02-28] MEDS: INSULIN SLIDING SCALE (NOVOLOG) 1 VIAL SQ SCH ×4 (06:05→21:25)
[2018-02-28 06:42] LABS: BASO % 0.3 % (0-2.0); EOS % 1.1 % (0-4.5); HEMATOCRIT 26.5 % (35.4-49); HEMOGLOBIN 8.9 GM/dL (11.7-16.9); LYMPH % 8.8 % (8-40); MCH 30.6 pg (25.7-33.7); MCHC 33.7 g/dl (32.0-35.9); MEAN CELL VOLUME 90.7 fl (80-96); MEAN PLT VOLUME 10.2 fl (7.5-11.1); MONO % 4.8 % (3.8-10.2); PLATELET COUNT 151 K/MM3 (134-434); RBC 2.92 M/mm3 (4.00-5.60); RDW 18.3 % (11.9-15.9); WHITE BLOOD COUNT 9.5 K/mm3 (4.0-10.0)
[2018-02-28 07:20] LABS: ALK PHOS 56 U/L (45-117); ANION GAP 11 (8-16); BILIRUBIN,TOTAL 0.4 mg/dL (0.2-1.0); CALCIUM 7.5 mg/dL (8.5-10.1); CHLORIDE 115 mmol/L (98-107); CO2 21 mmol/L (21-32); CREATININE 2.1 mg/dL (0.7-1.3); GLUCOSE,RANDOM 161 mg/dL (74-106); MAGNESIUM 1.9 mg/dL (1.8-2.4); POTASSIUM 3.4 mmol/L (3.5-5.1); SGOT/AST 18 U/L (15-37); SGPT/ALT 37 U/L (12-78); SODIUM 147 mmol/L (136-145); TOT PROT 5.4 g/dl (6.4-8.2)
[2018-02-28 08:39] LABS: BLOOD UREA NITROGEN 114 mg/dL (7-18)
[2018-02-28] MEDS ORDERED: PIPERACILLIN/TAZOBACTAM 2.25 GM VIAL IVPB ONE ×2 (08:43→18:23)
[2018-02-28] MEDS ORDERED: DEXTROSE 5%-WATER - 50 ML IVPB ONE ×2 (08:43→18:23)
[2018-02-28] MEDS ORDERED: PT OWN MED DRAWER 7, Y5N ONE (08:44)
[2018-02-28] MEDS: TAMSULOSIN HCL 0.4 MG CAP.ER.24H (FP) PO SCH (08:49)
--- NOTE | 2018-02-28 08:55 | PN ---
Progress Note (short form) - Note Progress Note: Renal Follow up for CKD/KATERIN Pt seen and examined in the ICU on vent via trach s/p CT of Abd/Pelvis yesterday to r/o obstruction give abd distension currently NPO except meds making urine on IVF Vital Signs Temperature 99.0 F 02/28/18 06:00 Pulse Rate 116 H 02/28/18 07:48 Respiratory Rate 21 02/28/18 07:48 Blood Pressure 119/78 02/28/18 07:48 O2 Sat by Pulse Oximetry (%) 100 02/28/18 07:48 Intake & Output 02/25/18 02/26/18 02/27/18 02/28/18 23:59 23:59 23:59 23:59 Intake Total 2488.5 2664.5 3147.5 700 Output Total 2600 1900 1200 500 Balance -111.5 764.5 1947.5 200 Weight 61.915 kg 64.665 kg 65.799 kg 65.969 kg NAD RRR, No M/R Dec BS, no rales soft NT/ND + G tube in place NO LE edema CBC, BMP 02/28/18 05:30 02/28/18 05:30 Laboratory Tests 01/26/18 02/02/18 02/28/18 07:00 10:00 05:30 Calcium 7.8 L 8.2 L 7.5 L Phosphorus 4.1 4.0 Magnesium 2.2 2.1 1.9 Albumin 2.1 L Current Medications Acetaminophen (Tylenol -) 650 mg PO Q4H PRN PRN Reason: FEVER Last Admin: 02/27/18 21:22 Dose: 650 mg Artificial Tears (Artificial Tears) 2 drop OU BID [facility] Last Admin: 02/27/18 21:17 Dose: 2 drop Atorvastatin Calcium (Lipitor -) 10 mg GT HS [facility] Last Admin: 02/27/18 21:18 Dose: 10 mg Bacitracin (Bacitracin -) 1 applic TP TID [facility] Last Admin: 02/28/18 06:05 Dose: 1 applic Chlorhexidine Gluconate (Hibiclens For Decolonization -) 1 applic TP HS [facility] Last Admin: 02/27/18 21:19 Dose: 1 applic Collagenase (Santyl -) 1 applic TP DAILY [facility] Diltiazem HCl (Cardizem Injection -) 10 mg IVPUSH Q6H PRN PRN Reason: TACHYCARDIA Docusate Sodium (Colace Liquid -) 100 mg PO DAILY PRN PRN Reason: CONSTIPATION Ferrous Sulfate (Feosol) 300 mg GT DAILY [facility] Piperacillin Sod/Tazobactam (Sod 2.25 gm/ Dextrose) 50 mls @ 100 mls/hr IVPB Q8H-IV [facility]; Protocol Last Admin: 02/28/18 02:53 Dose: 100 mls/hr Dextrose/Sodium Chloride (D5-1/2ns -) 1,000 mls @ 50 mls/hr IV ASDIR [facility] Last Admin: 02/27/18 19:20 Dose: 50 mls/hr Insulin Aspart (Novolog Vial Sliding Scale -) 1 vial SQ ACHS [facility]; Protocol Last Admin: 02/28/18 06:05 Dose: 2 unit Insulin Detemir (Levemir Vial) 20 units SQ HS [facility] Last Admin: 02/27/18 21:31 Dose: Not Given Levothyroxine Sodium (Synthroid -) 37.5 mcg PEG DAILY@0700 [facility] Last Admin: 02/28/18 06:05 Dose: 37.5 mcg Metoprolol Tartrate (Lopressor -) 12.5 mg GT BID [facility] Last Admin: 02/27/18 21:18 Dose: 12.5 mg Mupirocin (Bactroban Ointment (For Decolonization) -) 1 applic NS BID [facility] Stop: 03/01/18 21:59 Last Admin: 02/27/18 21:18 Dose: 1 applic Non-Formulary Medication (Non-Formulary Med) 1 each GT DAILY [facility] Nystatin (Nystop Powder -) 1 applic TP BID [facility] Last Admin: 02/27/18 21:19 Dose: 1 applic Oxybutynin Chloride (Ditropan -) 5 mg NGT BID [facility] Last Admin: 02/27/18 21:18 Dose: 5 mg Pantoprazole Sodium (Protonix Packets For Oral Suspension -) 40 mg NGT DAILY [facility] Potassium Chloride (Potassium Chloride Oral Liquid) 40 meq GT ONCE ONE Stop: 02/28/18 08:53 Senna (Senna Oral Solution -) 8.8 mg PO HS [facility] Last Admin: 02/27/18 21:19 Dose: 8.8 mg Sertraline HCl (Zoloft -) 25 mg PO DAILY [facility] Tamsulosin HCl (Flomax -) 0.4 mg PO DAILY@0830 [facility] Last Admin: 02/28/18 08:49 Dose: 0.4 mg Trimethoprim/Sulfamethoxazole (Bactrim Oral Suspension -) 40 mg GT DAILY [facility] 87 year old man with a significant past medical history of 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 #CKD Stage 3 with higher then baseline BUN/Cr #GI bleed #Anemia #Hypokalemia #Hypernatremia Renal function improved and stable with good urine output will give KCL via G-tube can continue gentle hypotonic IVF for now until pt is cleared to use G-tube for feeds GI follow up Trend H/H Montior electrolytes daily Frank Ayoub DO
--- NOTE | 2018-02-28 09:12 | PN ---
Progress Note (short form) - Note Progress Note: PULMONARY Pt seen and examined in the ICU. Vented, more awake. Still some dark tarry stools per nursing. Feeds held due to abdominal distention. Vital Signs Period Temp Pulse Resp BP Sys/Wills Pulse Ox Last 24 Hr 97.0 F-99.4 F 109-131 15-21 80-125/57-86 97-100 Intake & Output 02/25/18 02/26/18 02/27/18 02/28/18 23:59 23:59 23:59 23:59 Intake Total 2488.5 2664.5 3147.5 700 Output Total 2600 1900 1200 500 Balance -111.5 764.5 1947.5 200 Weight 61.915 kg 64.665 kg 65.799 kg 65.969 kg Gen: vented, more awake Heart: RRR Lung: decreased breath sounds at the bases Abd: soft, nontender Ext: no edema CBC, BMP 02/28/18 05:30 02/28/18 05:30 Active Medications Acetaminophen (Tylenol -) 650 mg PO Q4H PRN PRN Reason: FEVER Last Admin: 02/27/18 21:22 Dose: 650 mg Artificial Tears (Artificial Tears) 2 drop OU BID [facility] Last Admin: 02/27/18 21:17 Dose: 2 drop Atorvastatin Calcium (Lipitor -) 10 mg GT HS [facility] Last Admin: 02/27/18 21:18 Dose: 10 mg Bacitracin (Bacitracin -) 1 applic TP TID [facility] Last Admin: 02/28/18 06:05 Dose: 1 applic Chlorhexidine Gluconate (Hibiclens For Decolonization -) 1 applic TP HS [facility] Last Admin: 02/27/18 21:19 Dose: 1 applic Collagenase (Santyl -) 1 applic TP DAILY [facility] Diltiazem HCl (Cardizem Injection -) 10 mg IVPUSH Q6H PRN PRN Reason: TACHYCARDIA Docusate Sodium (Colace Liquid -) 100 mg PO DAILY PRN PRN Reason: CONSTIPATION Ferrous Sulfate (Feosol) 300 mg GT DAILY [facility] Piperacillin Sod/Tazobactam (Sod 2.25 gm/ Dextrose) 50 mls @ 100 mls/hr IVPB Q8H-IV [facility]; Protocol Last Admin: 02/28/18 02:53 Dose: 100 mls/hr Dextrose/Sodium Chloride (D5-1/2ns -) 1,000 mls @ 50 mls/hr IV ASDIR [facility] Last Admin: 02/27/18 19:20 Dose: 50 mls/hr Insulin Aspart (Novolog Vial Sliding Scale -) 1 vial SQ [facility]; Protocol Last Admin: 02/28/18 06:05 Dose: 2 unit Insulin Detemir (Levemir Vial) [address] [facility] Last Admin: 02/27/18 21:31 Dose: Not Given Levothyroxine Sodium (Synthroid -) 37.5 mcg PEG DAILY@0700 [facility] Last Admin: 02/28/18 06:05 Dose: 37.5 mcg Metoprolol Tartrate (Lopressor -) 12.5 mg GT BID [facility] Last Admin: 02/27/18 21:18 Dose: 12.5 mg Mupirocin (Bactroban Ointment (For Decolonization) -) 1 applic NS BID [facility] Stop: 03/01/18 21:59 Last Admin: 02/27/18 21:18 Dose: 1 applic Non-Formulary Medication (Non-Formulary Med) 1 each GT DAILY [facility] Nystatin (Nystop Powder -) 1 applic TP BID [facility] Last Admin: 02/27/18 21:19 Dose: 1 applic Oxybutynin Chloride (Ditropan -) 5 mg NGT BID [facility] Last Admin: 02/27/18 21:18 Dose: 5 mg Pantoprazole Sodium (Protonix Packets For Oral Suspension -) 40 mg NGT DAILY [facility] Potassium Chloride (Potassium Chloride Oral Liquid) 40 meq GT ONCE ONE Stop: 02/28/18 10:01 Senna (Senna Oral Solution -) 8.[address] [facility] Last Admin: 02/27/18 21:19 Dose: 8.8 mg Sertraline HCl (Zoloft -) 25 mg PO DAILY [facility] Tamsulosin HCl (Flomax -) 0.4 mg PO DAILY@0830 [facility] Last Admin: 02/28/18 08:49 Dose: 0.4 mg Trimethoprim/Sulfamethoxazole (Bactrim Oral Suspension -) 40 mg GT DAILY [facility] A/P GI Bleed/Gastric [place]oy Lesion s/p EGD/epi/cautery Acute Blood Loss Anemia Chronic Respiratory Failure Pneumonia h/o Traumatic Brain Injury Functional Quadriplegia Acute on Chronic Renal Failure Atrial Fibrillation DM Dementia - monitor H/H - protonix - antibiotics per ID - rate control - holding anticoagulation - continue volume assist control - poor candidate for weaning due to poor mental status - IVF - replete lytes - enteral feeds as tolerated - DVT/GI prophylaxis - can monitor on vent floor
[2018-02-28] MEDS: ARTIFICIAL TEARS (POLYVINYL ALCOHOL 1.4%) OPTH DROPS OU SCH ×2 (09:30→21:15)
[2018-02-28] MEDS: SULFAMETHOXAZOLE/TMP 200MG-40MG/5ML GT SCH ×2 (09:31→09:32)
[2018-02-28] MEDS: MUPIROCIN 2% TOPICAL OINTMENT FOR DECOLONIZATION NS SCH ×2 (09:34→21:15)
[2018-02-28] MEDS: OXYBUTYNIN CHLORIDE 5 MG TABLET NGT SCH ×2 (09:36→21:16)
[2018-02-28] MEDS: FERROUS SO4 300 MG/5 ML ORAL SOLN UNIT DOSE CUPS GT SCH (09:36)
[2018-02-28] MEDS: METOPROLOL TARTRATE 25 MG TABLET (FP) GT SCH ×2 (09:37→21:16)
[2018-02-28] MEDS: NON-FORMULARY MED GT SCH (09:43)
[2018-02-28] MEDS: NYSTATIN POWDER 100,000 UNITS/GM - 15 GM TOPICAL POWDER TP SCH ×2 (09:45→21:18)
[2018-02-28] MEDS: PANTOPRAZOLE SOD 40 MG SUSPENSION PACKET NGT SCH (09:45)
[2018-02-28] MEDS: COLLAGENASE CLOSTRIDIUM HIST. 30 GRAMS TUBE TP SCH ×2 (09:52→11:00)
[2018-02-28] MEDS ORDERED: POTASSIUM CHLORIDE ORAL LIQUID 20 MEQ/15 ML GT ONE (10:00)
[2018-02-28] MEDS: SERTRALINE HCL 25 MG TABLET (FP) PO SCH (11:00)
--- NOTE | 2018-02-28 16:03 | PN ---
GI Progress Note Subjective: CT scan and AXR report reviewed Dark BM's noted Hgb 8.9 today - Objective Vital Signs: Vital Signs Temperature 98.9 F 02/28/18 09:00 Pulse Rate 99 H 02/28/18 13:00 Respiratory Rate 15 02/28/18 14:10 Blood Pressure 97/67 02/28/18 13:00 O2 Sat by Pulse Oximetry (%) 100 02/28/18 07:48 Constitutional: Calm Cardiovascular: Yes: Tachycardia, Pulse Irregular Respiratory: Yes: Diminished (at bases b/l) ...Auscultate: Yes: Normoactive Bowel Sounds ...Percussion: Yes: Tympanitic ...Rectal Exam: Yes: Other (air alvarez noted upon turning of patient to the left with dark brown/bblack liquid stool. More air and liquid released upon insertion of finger into anal canal and placement of rectal tube.) Edema: No (No LE edema) Neurological: Yes: Other (Awake) Labs: CBC, BMP 02/28/18 05:30 02/28/18 05:30 INR, PTT INR 1.13 (0.82-1.09) 02/16/18 22:40 Problem List - Problems (1) Upper GI bleed Assessment/Plan: No overt bleeding noted. BUN continues to improve. suspect current dark BM's reflect previous bleeding large air alvarez noted upon turn of patient on left side and with insertion of rectal tube. Continue to monitor abdominal exam protonix 40mg once daily Dr. Diaz resumes care 03/01 Code(s): K92.2 - GASTROINTESTINAL HEMORRHAGE, UNSPECIFIED
--- NOTE | 2018-02-28 16:06 | PN ---
Progress Note (short form) - Note Progress Note: Patient seen and examined. opens eyes, non verbal, unable to do ROS. Objective: Vital Signs Period Temp Pulse Resp BP Sys/Wills Pulse Ox Last 24 Hr 97.0 F-99.4 F 99-131 - 97-125/67-86 97-100 Intake & Output 02/25/18 02/26/18 02/27/18 02/28/18 23:59 23:59 23:59 23:59 Intake Total 2488.5 2664.5 3147.5 700 Output Total 2600 1900 1200 1000 Balance -111.5 764.5 1947.5 -300 Weight 136 lb 8 oz 142 lb 9 oz 145 lb 1 oz 145 lb 7 oz general: lying in bed, in no acute distress Chest: decreased air entry at bases, few rales Abdomen: soft, mild distension, unchanged, Positive bowel sounds Extremities: no edema Home Medications Medication Instructions Recorded Acetaminophen [Tylenol] 650 mg PO Q6H PRN 01/21/18 Bacitracin - [Bacitracin Topical 1 applic TP TID 01/21/18 Ointment -] Baclofen 10 mg GT Q8H 01/21/18 Balsam [place] Oil [Venelex 1 applic TP BID 01/21/18 Ointment] Docusate Sodium [Colace -] 100 mg GT ASDIR 01/21/18 Ferrous Sulfate [Feosol] 300 mg GT DAILY 01/21/18 Glycopyrrolate/Formoterol Fum 0 gm IH BID 01/21/18 [Bevespi Aerosphere Inhaler] Heparin - 5,000 unit SQ BID 01/21/18 Hypromellose 0.5% Opth Soln 2 drop OU BID 01/21/18 [Artificial Tears] Insulin Glargine,Hum.rec.anlog 9 units SQ HS 01/21/18 [Lantus Solostar PEN -] Insulin Lispro [Humalog] 0 unit SQ Q6H 01/21/18 L.acidoph,Paracasei, B.lactis 1 each GT DAILY 01/21/18 [Probiotic] Lanolin/Mineral Oil [Eucerin 1 applic TP Q6H 01/21/18 Original Lotion] Levothyroxine Sodium [Synthroid] 37.5 mcg GT BID 01/21/18 Oxybutynin Chloride 5 mg GT BID 01/21/18 Ranitidine [Zantac -] 150 mg GT DAILY 01/21/18 Sertraline HCl [Zoloft] 25 mg GT DAILY 01/21/18 Silver Sulfadiazine 1% Top Cr 1 applic TP DAILY 01/21/18 [Silvadene -] Simethicone 40 mg GT Q6H 01/21/18 Simvastatin 20 mg GT DAILY 01/21/18 Tamsulosin HCl 0.4 mg GT DAILY 01/21/18 Zinc Oxide 1 applic TP BID 01/21/18 Levothyroxine [Synthroid -] 37.5 mcg PEG DAILY@0700 tablet 02/08/18 Sodium Chloride Nasal [place] [[place] 2 spray NS TID spray 02/08/18 [place] Nasal [place] -] Aspirin [ASA -] 81 mg PO DAILY #30 tab.chew 02/09/18 Furosemide Oral Solution [Lasix 40 mg GT BID #300 udc 02/09/18 Oral Solution -] Nut.tx.imp.renal Fxn,Lac-Reduc 1,000 ml PO DAILY #1000 ml 02/09/18 [Nepro Carb Steady] Potassium Chloride 40 meq GT DAILY #40 meq 02/09/18 Active Medications Acetaminophen (Tylenol -) 650 mg PO Q4H PRN PRN Reason: FEVER Last Admin: 02/27/18 21:22 Dose: 650 mg Artificial Tears (Artificial Tears) 2 drop OU BID [facility] Last Admin: 02/28/18 09:30 Dose: 2 drop Atorvastatin Calcium (Lipitor -) 10 mg GT HS [facility] Last Admin: 02/27/18 21:18 Dose: 10 mg Bacitracin (Bacitracin -) 1 applic TP TID [facility] Last Admin: 02/28/18 06:05 Dose: 1 applic Chlorhexidine Gluconate (Hibiclens For Decolonization -) 1 applic TP HS [facility] Last Admin: 02/27/18 21:19 Dose: 1 applic Collagenase (Santyl -) 1 applic TP DAILY [facility] Last Admin: 02/28/18 11:00 Dose: 1 applic Diltiazem HCl (Cardizem Injection -) 10 mg IVPUSH Q6H PRN PRN Reason: TACHYCARDIA Docusate Sodium (Colace Liquid -) 100 mg PO DAILY PRN PRN Reason: CONSTIPATION Ferrous Sulfate (Feosol) 300 mg GT DAILY [facility] Last Admin: 02/28/18 09:36 Dose: 300 mg Piperacillin Sod/Tazobactam (Sod 2.25 gm/ Dextrose) 50 mls @ 100 mls/hr IVPB Q8H-IV [facility]; Protocol Last Admin: 02/28/18 11:00 Dose: 100 mls/hr Dextrose/Sodium Chloride (D5-1/2ns -) 1,000 mls @ 50 mls/hr IV ASDIR [facility] Last Admin: 02/27/18 19:20 Dose: 50 mls/hr Insulin Aspart (Novolog Vial Sliding Scale -) 1 vial SQ ACHS [facility]; Protocol Last Admin: 02/28/18 11:19 Dose: 2 unit Insulin Detemir (Levemir Vial) 20 units SQ [facility] Last Admin: 02/27/18 21:31 Dose: Not Given Levothyroxine Sodium (Synthroid -) 37.5 mcg PEG DAILY@0700 [facility] Last Admin: 02/28/18 06:05 Dose: 37.5 mcg Metoprolol Tartrate (Lopressor -) 12.5 mg GT BID [facility] Last Admin: 02/28/18 09:37 Dose: 12.5 mg Mupirocin (Bactroban Ointment (For Decolonization) -) 1 applic NS BID [facility] Stop: 03/01/18 21:59 Last Admin: 02/28/18 09:34 Dose: 1 applic Non-Formulary Medication (Non-Formulary Med) 1 each GT DAILY [facility] Last Admin: 02/28/18 09:43 Dose: 1 each Nystatin (Nystop Powder -) 1 applic TP BID [facility] Last Admin: 02/28/18 09:45 Dose: 1 applic Oxybutynin Chloride (Ditropan -) 5 mg NGT BID [facility] Last Admin: 02/28/18 09:36 Dose: 5 mg Pantoprazole Sodium (Protonix Packets For Oral Suspension -) 40 mg NGT DAILY [facility] Last Admin: 02/28/18 09:45 Dose: 40 mg Senna (Senna Oral Solution -) 8.8 mg PO HS [facility] Last Admin: 02/27/18 21:19 Dose: 8.8 mg Sertraline HCl (Zoloft -) 25 mg PO DAILY [facility] Last Admin: 02/28/18 11:00 Dose: 25 mg Tamsulosin HCl (Flomax -) 0.4 mg PO DAILY@0830 [facility] Last Admin: 02/28/18 08:49 Dose: 0.4 mg Trimethoprim/Sulfamethoxazole (Bactrim Oral Suspension -) 40 mg GT DAILY [facility] Last Admin: 02/28/18 09:32 Dose: 40 mg Laboratory Results - last 24 hr 02/22/18 02/27/18 02/28/18 15:30 21:30 05:30 WBC 9.5 RBC 2.92 L Hgb 8.9 L Hct 26.5 L MCV 90.7 MCH 30.6 MCHC 33.7 RDW 18.3 H Plt Count 151 MPV 10.2 Absolute Neuts (auto) 8.1 Neutrophils % 85.0 H Lymphocytes % 8.8 Monocytes % 4.8 Eosinophils % 1.1 Basophils % 0.3 Nucleated RBC % 0 Sodium Potassium Chloride Carbon Dioxide Anion Gap BUN Creatinine Creat Clearance w eGFR POC Glucometer [phone] Random Glucose Calcium Phosphorus Magnesium Total Bilirubin AST ALT Alkaline Phosphatase Total Protein Albumin Blood Type O POSITIVE Antibody Screen Negative Crossmatch See Detail 02/28/18 02/28/18 02/28/18 05:30 05:51 11:05 WBC RBC Hgb Hct MCV MCH MCHC RDW Plt Count MPV Absolute Neuts (auto) Neutrophils % Lymphocytes % Monocytes % Eosinophils % Basophils % Nucleated RBC % Sodium 147 H Potassium 3.4 L Chloride 115 H Carbon Dioxide 21 Anion Gap 11 BUN 114 H* D Creatinine 2.1 H Creat Clearance w eGFR 30.17 POC Glucometer 191.59227 184.32017 Random Glucose 161 H D Calcium 7.5 L Phosphorus 4.0 Magnesium 1.9 Total Bilirubin 0.4 AST 18 D ALT 37 Alkaline Phosphatase 56 Total Protein 5.4 L Albumin 2.0 L Blood Type Antibody Screen Crossmatch Microbiology 02/17/18 03:00 Blood - Peripheral Venous Blood Culture - Final NO GROWTH AFTER 5 DAYS INCUBATION 02/17/18 03:00 Blood - Peripheral Venous Blood Culture - Final NO GROWTH AFTER 5 DAYS INCUBATION 02/17/18 10:40 Sputum - Endotrachea Suction/Ventilator Gram Stain - Final 02/17/18 10:40 Sputum - Endotrachea Suction/Ventilator Sputum Culture - Final Pseudomonas Aeruginosa Pseudo Fluorescens/[place] 02/16/18 23:40 Urine - Urine Clean Catch Urine Culture - Final NO GROWTH OBTAINED Assessment/Plan: 87 year old male with a significant past medical history of diastolic heart failure, NIDDM, CKD, and 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 Admitted on 02/17/18 from [facility] chronic respiratory failure and severe anemia with a hg of 5.5 and hypotension. -Acute Upper GI bleed from [place] lesion -Acute blood loss anemia s/p 6 units PRBCs -Acute on chronic vent dependent respiratory failure, likely aspiration PNA. 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 h/h stable. repeat gastric lavage clear. h/h overall stable. Feeds held overnight given concerns of abdominal distension, repeat CT A/P results noted. Passing gas/having BM. GI input noted. resume feeds. rectal tube. D/c IVF as feeds resumed. Zosyn day 14/Bactrim day 4, sputum cultures with pseudomonas, WBC stable, monitor for now, discussed with Dr. Garza, plan for buttermaker continuous churn antiboitics. At baseline vent settings, off steroids, monitor Pulmonary input appreciated. Cardiology input appreciated. Low dose metoprolol as tolerated. Off diltiazem drip. Patient with good bowel sounds, had 2 BM yesterday, large, non tender abdomen with improved distension and abdominal xray. Clinically not concerning for Sigmoid volvulus. GI/surgery input noted. CT A/P noted. hematology input noted. Continue Fe supplementation. Monitor renal function, cr overall plateaued, Renal input noted. -Levemir, ISS, resume tube feeds. Continue oxybutynin/flomax/zoloft. DVTPPX with SCDs given recurrent anemia with multiple transfusions and active GI bleed. . Plan discussed with nursing. Plan discussed with son, daughter and at bedside in detail, all questions answered. Total critical care time spent 40 min. Visit type - Emergency Visit Emergency Visit: Yes ED Registration Date: 02/17/18 Care time: The patient presented to the Emergency Department on the above date and was hospitalized for further evaluation of their emergent condition. - New Patient This patient is new to me today: No - Critical Care Critical Care patient: Yes Total Critical Care Time (in minutes): 40 Critical Care Statement: The care of this patient involved high complexity decision making to prevent further life threatening deterioration of the patient 's condition and/or to evaluate & treat vital organ system(s) failure or risk of failure. - Discharge Referral Referred to [facility] Med [facility] No
--- NOTE | 2018-02-28 16:33 | PN ---
Progress Note, Physician History of Present Illness: Events noted. Pt was noted to have dark, loose stools. CT abdomen without evidence of obstruction. Evaluated by GI, dark stools attributed to previous bleed. Pt without acute distress, arousable. Afebrile. - Current Medication List Current Medications: Active Medications Acetaminophen (Tylenol -) 650 mg PO Q4H PRN PRN Reason: FEVER Last Admin: 02/27/18 21:22 Dose: 650 mg Artificial Tears (Artificial Tears) 2 drop OU BID REPLACED BY [facility] Last Admin: 02/28/18 09:30 Dose: 2 drop Atorvastatin Calcium (Lipitor -) 10 mg GT HS REPLACED BY [facility] Last Admin: 02/27/18 21:18 Dose: 10 mg Bacitracin (Bacitracin -) 1 applic TP TID REPLACED BY [facility] Last Admin: 02/28/18 06:05 Dose: 1 applic Chlorhexidine Gluconate (Hibiclens For Decolonization -) 1 applic TP HS REPLACED BY [facility] Last Admin: 02/27/18 21:19 Dose: 1 applic Collagenase (Santyl -) 1 applic TP DAILY REPLACED BY [facility] Last Admin: 02/28/18 11:00 Dose: 1 applic Diltiazem HCl (Cardizem Injection -) 10 mg IVPUSH Q6H PRN PRN Reason: TACHYCARDIA Docusate Sodium (Colace Liquid -) 100 mg PO DAILY PRN PRN Reason: CONSTIPATION Ferrous Sulfate (Feosol) 300 mg GT DAILY REPLACED BY [facility] Last Admin: 02/28/18 09:36 Dose: 300 mg Piperacillin Sod/Tazobactam (Sod 2.25 gm/ Dextrose) 50 mls @ 100 mls/hr IVPB Q8H-IV [facility]; Protocol Last Admin: 02/28/18 11:00 Dose: 100 mls/hr Dextrose/Sodium Chloride (D5-1/2ns -) 1,000 mls @ 50 mls/hr IV ASDIR REPLACED BY [facility] Last Admin: 02/27/18 19:20 Dose: 50 mls/hr Insulin Aspart (Novolog Vial Sliding Scale -) 1 vial SQ [facility] REPLACED BY [facility]; Protocol Last Admin: 02/28/18 11:19 Dose: 2 unit Insulin Detemir (Levemir Vial) 20 units SQ [facility] Last Admin: 02/27/18 21:31 Dose: Not Given Levothyroxine Sodium (Synthroid -) 37.5 mcg PEG DAILY@0700 REPLACED BY [facility] Last Admin: 02/28/18 06:05 Dose: 37.5 mcg Metoprolol Tartrate (Lopressor -) 12.5 mg GT BID REPLACED BY [facility] Last Admin: 02/28/18 09:37 Dose: 12.5 mg Mupirocin (Bactroban Ointment (For Decolonization) -) 1 applic NS BID REPLACED BY [facility] Stop: 03/01/18 21:59 Last Admin: 02/28/18 09:34 Dose: 1 applic Non-Formulary Medication (Non-Formulary Med) 1 each GT DAILY REPLACED BY [facility] Last Admin: 02/28/18 09:43 Dose: 1 each Nystatin (Nystop Powder -) 1 applic TP BID REPLACED BY [facility] Last Admin: 02/28/18 09:45 Dose: 1 applic Oxybutynin Chloride (Ditropan -) 5 mg NGT BID REPLACED BY [facility] Last Admin: 02/28/18 09:36 Dose: 5 mg Pantoprazole Sodium (Protonix Packets For Oral Suspension -) 40 mg NGT DAILY REPLACED BY [facility] Last Admin: 02/28/18 09:45 Dose: 40 mg Senna (Senna Oral Solution -) 8.8 mg PO HS REPLACED BY [facility] Last Admin: 02/27/18 21:19 Dose: 8.8 mg Sertraline HCl (Zoloft -) 25 mg PO DAILY REPLACED BY [facility] Last Admin: 02/28/18 11:00 Dose: 25 mg Tamsulosin HCl (Flomax -) 0.4 mg PO DAILY@0830 REPLACED BY [facility] Last Admin: 02/28/18 08:49 Dose: 0.4 mg Trimethoprim/Sulfamethoxazole (Bactrim Oral Suspension -) 40 mg GT DAILY REPLACED BY [facility] Last Admin: 02/28/18 09:32 Dose: 40 mg - Objective Vital Signs: Vital Signs Temperature 98.9 F 02/28/18 09:00 Pulse Rate 99 H 02/28/18 13:00 Respiratory Rate 15 02/28/18 14:10 Blood Pressure 97/67 02/28/18 13:00 O2 Sat by Pulse Oximetry (%) 100 02/28/18 07:48 Constitutional: Yes: No Distress Cardiovascular: Yes: Tachycardia Respiratory: Yes: Diminished (decreased BS bibasilarly) Gastrointestinal: Yes: Normal Bowel Sounds, Soft Genitourinary: Yes: Childs Present Edema: No Labs: CBC, BMP 02/28/18 05:30 02/28/18 05:30 INR, PTT INR 1.13 (0.82-1.09) 02/16/18 22:40 - ....Imaging Cat Scan: Report Reviewed Problem List - Problems (1) [id number] renal failure Code(s): N17.9 - ACUTE KIDNEY FAILURE, UNSPECIFIED; N18.9 - CHRONIC KIDNEY DISEASE, UNSPECIFIED Qualifiers: Acute renal failure type: unspecified Chronic kidney disease stage: stage 3 (moderate) Qualified Code(s): N17.9 - Acute kidney failure, unspecified; N18.3 - Chronic kidney disease, stage 3 (moderate) (2) Anemia Code(s): D64.9 - ANEMIA, UNSPECIFIED Qualifiers: Anemia type: due to chronic kidney disease Chronic kidney disease stage: unspecified stage Qualified Code(s): N18.9 - Chronic kidney disease, unspecified; D63.1 - Anemia in chronic kidney disease (3) Chronic respiratory failure Code(s): J96.10 - CHRONIC RESPIRATORY FAILURE, UNSP W HYPOXIA OR HYPERCAPNIA Qualifiers: Respiratory failure complication: unspecified whether with hypoxia or hypercapnia Qualified Code(s): J96.10 - Chronic respiratory failure, unspecified whether with hypoxia or hypercapnia (4) Hypotension Code(s): I95.9 - HYPOTENSION, UNSPECIFIED (5) PAF (paroxysmal atrial fibrillation) Code(s): I48.0 - PAROXYSMAL ATRIAL FIBRILLATION (6) CHF (congestive heart failure) Code(s): I50.9 - HEART FAILURE, UNSPECIFIED Qualifiers: Heart failure type: diastolic Heart failure chronicity: chronic Qualified Code(s): I50.32 - Chronic diastolic (congestive) heart failure (7) Diabetes Code(s): E11.9 - TYPE 2 DIABETES MELLITUS WITHOUT COMPLICATIONS Qualifiers: Diabetes mellitus type: type 2 Diabetes mellitus fpc insulin use: unspecified fpc insulin use status Diabetes mellitus complication status : with kidney complications Diabetes mellitus complication detail: with chronic kidney disease Chronic kidney disease stage: stage 3 (moderate) Qualified Code(s): E11.22 - Type 2 diabetes mellitus with diabetic chronic kidney disease; N18.3 - Chronic kidney disease, stage 3 (moderate) (8) Hypothyroid Code(s): E03.9 - HYPOTHYROIDISM, UNSPECIFIED (9) TBI (traumatic brain injury) Code(s): S06.9X9A - UNSP INTRACRANIAL INJURY W LOC OF UNSP DURATION, INIT Qualifiers: Encounter type: sequela Loss of consciousness presence/duration: with LOC of unspecified duration Qualified Code(s): S06.9X9S - Unspecified intracranial injury with loss of consciousness of unspecified duration, sequela Assessment/Plan 87M with PMH of traumatic fall (s/p cervical/back surgery) , Respiratory faillure s/p trach now ventilator dependent,pneumonia, emphysema, A-fib, CHF, DM , dementia, renal failure,TBI, paraplegia, and legal blindness/ deafness, who [facility] and [facility] Pseudomonas PNA Sepsis Respiratory Failure/ MV dependent AFIB CHF DM CKD GI Bleed Anemia -- CT scan results reviewed, labs noted -- pt with improved leukocytosis, currently afebrile -- continue Zosyn/Bactrim -- monitor cbc, temps rest of care per ICU
[2018-02-28] MEDS: ATORVASTATIN CA 10 MG TABLET (FP) GT SCH (21:16)
[2018-02-28] MEDS: CHLORHEXIDINE GLUCONATE 4% CLEANSER FOR DECOLONIZATION TP SCH (21:16)
[2018-02-28] MEDS: ACETAMINOPHEN 325 MG TABLET (FP) PO PRN (21:17)
[2018-02-28] MEDS: SENNOSIDES 8.8 MG/5 ML BULK BOTTLE PO SCH (21:18)
[2018-02-28] MEDS: INSULIN (LEVEMIR) 100 UNITS/ML UNITS SQ SCH (21:25)
[2018-03-01] MEDS ORDERED: PIPERACILLIN/TAZOBACTAM 2.25 GM VIAL IVPB ONE ×2 (02:26→08:24)
[2018-03-01] MEDS ORDERED: DEXTROSE 5%-WATER - 50 ML IVPB ONE ×2 (02:26→08:25)
[2018-03-01] MEDS: PIPERACILLIN/TAZOB 2.25 GM 2.25 GM in DEXTROSE 5%-WATER - 50 ML IVPB SCH ×2 (02:29→10:06)
[2018-03-01] MEDS: BACITRACIN 15 GM TUBE TOPICAL OINTMENT TP SCH (05:43)
[2018-03-01 06:06] LABS: BASO % 0.4 % (0-2.0); EOS % 1.9 % (0-4.5); HEMATOCRIT 26.9 % (35.4-49); HEMOGLOBIN 8.9 GM/dL (11.7-16.9); LYMPH % 9.2 % (8-40); MCH 30.4 pg (25.7-33.7); MCHC 33.1 g/dl (32.0-35.9); MEAN CELL VOLUME 91.7 fl (80-96); MEAN PLT VOLUME 10.3 fl (7.5-11.1); MONO % 4.6 % (3.8-10.2); NEUT % 83.9 % (42.8-82.8); PLATELET COUNT 150 K/MM3 (134-434); RBC 2.93 M/mm3 (4.00-5.60); RDW 19.3 % (11.9-15.9); WHITE BLOOD COUNT 8.2 K/mm3 (4.0-10.0)
[2018-03-01] MEDS: LEVOTHYROXINE NA 25 MCG TABLET (FP) PEG SCH (06:14)
[2018-03-01] MEDS: INSULIN SLIDING SCALE (NOVOLOG) 1 VIAL SQ SCH ×4 (06:14→21:59)
[2018-03-01 06:39] LABS: ALBUMIN 1.9 g/dl (3.4-5.0); ALK PHOS 74 U/L (45-117); ANION GAP 9 (8-16); BILIRUBIN,TOTAL 0.3 mg/dL (0.2-1.0); BLOOD UREA NITROGEN 102 mg/dL (7-18); CALCIUM 7.4 mg/dL (8.5-10.1); CHLORIDE 117 mmol/L (98-107); CO2 21 mmol/L (21-32); GLUCOSE,RANDOM 55 mg/dL (74-106); PHOSPHOROUS 4.1 mg/dL (2.5-4.9); POTASSIUM 3.6 mmol/L (3.5-5.1); SGOT/AST 22 U/L (15-37); SGPT/ALT 36 U/L (12-78); SODIUM 147 mmol/L (136-145); TOT PROT 5.2 g/dl (6.4-8.2)
[2018-03-01] MEDS ORDERED: DEXTROSE 50%-WATER - 25 GM/50 ML VIAL IVPUSH ONE (08:09)
[2018-03-01] MEDS ORDERED: INSULIN (LEVEMIR) 100 UNITS/ML UNITS SQ SCH (08:10)
[2018-03-01] MEDS ORDERED: PT OWN MED DRAWER 7, Y5N ONE (08:24)
--- NOTE | 2018-03-01 08:41 | PN ---
Teaching Attending Note Name of Resident: Elia Prieto ATTENDING PHYSICIAN STATEMENT I saw and evaluated the patient. I reviewed the resident's note and discussed the case with the resident. I agree with the resident's findings and plan as documented with exceptions below. SUBJECTIVE: Patient seen and examined. Opens eyes, non verbal, unable to assess for ROS. OBJECTIVE: Vital Signs Period Temp Pulse Resp BP Sys/Wills Pulse Ox Last 24 Hr 97.5 F-98.9 F 97-121 15-23 92-122/57-73 100-100 Intake & Output 02/26/18 02/27/18 02/28/18 03/01/18 23:59 23:59 23:59 23:59 Intake Total 2664.5 3147.5 1780 750 Output Total 1900 1200 1500 450 Balance 764.5 1947.5 280 300 Weight 142 lb 9 oz 145 lb 1 oz 145 lb 7 oz 147 lb 6 oz General: in bed in no acute distress, opens eyes Chest: decreased air entry, few scattered basilar rales, limited exam Abdomen:Soft, improved distension, PEG in place, positive bowel sounds extremities: no edema Active Medications Acetaminophen (Tylenol -) 650 mg PO Q4H PRN PRN Reason: FEVER Last Admin: 02/28/18 21:17 Dose: 650 mg Artificial Tears (Artificial Tears) 2 drop OU BID [facility] Last Admin: 02/28/18 21:15 Dose: 2 drop Atorvastatin Calcium (Lipitor -) 10 mg GT HS [facility] Last Admin: 02/28/18 21:16 Dose: 10 mg Bacitracin (Bacitracin -) 1 applic TP TID [facility] Last Admin: 03/01/18 05:43 Dose: 1 applic Chlorhexidine Gluconate (Hibiclens For Decolonization -) 1 applic TP HS [facility] Last Admin: 02/28/18 21:16 Dose: 1 applic Collagenase (Santyl -) 1 applic TP DAILY [facility] Last Admin: 02/28/18 11:00 Dose: 1 applic Diltiazem HCl (Cardizem Injection -) 10 mg IVPUSH Q6H PRN PRN Reason: TACHYCARDIA Docusate Sodium (Colace Liquid -) 100 mg PO DAILY PRN PRN Reason: CONSTIPATION Ferrous Sulfate (Feosol) 300 mg GT DAILY [facility] Last Admin: 02/28/18 09:36 Dose: 300 mg Piperacillin Sod/Tazobactam (Sod 2.25 gm/ Dextrose) 50 mls @ 100 mls/hr IVPB Q8H-IV [facility]; Protocol Last Admin: 03/01/18 02:29 Dose: 100 mls/hr Insulin Aspart (Novolog Vial Sliding Scale -) 1 vial SQ [facility]; Protocol Last Admin: 03/01/18 06:14 Dose: Not Given Insulin Detemir (Levemir Vial) [address] [facility] Levothyroxine Sodium (Synthroid -) 37.5 mcg PEG DAILY@0700 [facility] Last Admin: 03/01/18 06:14 Dose: 37.5 mcg Metoprolol Tartrate (Lopressor -) 12.5 mg GT BID [facility] Last Admin: 02/28/18 21:16 Dose: 12.5 mg Mupirocin (Bactroban Ointment (For Decolonization) -) 1 applic NS BID [facility] Stop: 03/01/18 21:59 Last Admin: 02/28/18 21:15 Dose: 1 applic Non-Formulary Medication (Non-Formulary Med) 1 each GT DAILY [facility] Last Admin: 02/28/18 09:43 Dose: 1 each Nystatin (Nystop Powder -) 1 applic TP BID [facility] Last Admin: 02/28/18 21:18 Dose: 1 applic Oxybutynin Chloride (Ditropan -) 5 mg NGT BID [facility] Last Admin: 02/28/18 21:16 Dose: 5 mg Pantoprazole Sodium (Protonix Packets For Oral Suspension -) 40 mg NGT DAILY [facility] Last Admin: 02/28/18 09:45 Dose: 40 mg Senna (Senna Oral Solution -) 8.8 mg PO HS [facility] Last Admin: 02/28/18 21:18 Dose: 8.8 mg Sertraline HCl (Zoloft -) 25 mg PO DAILY [facility] Last Admin: 02/28/18 11:00 Dose: 25 mg Tamsulosin HCl (Flomax -) 0.4 mg PO DAILY@0830 [facility] Last Admin: 02/28/18 08:49 Dose: 0.4 mg Trimethoprim/Sulfamethoxazole (Bactrim Oral Suspension -) 40 mg GT DAILY [facility] Last Admin: 02/28/18 09:32 Dose: 40 mg Laboratory Results - last 24 hr 02/28/18 02/28/18 02/28/18 05:30 11:05 17:17 WBC RBC Hgb Hct MCV MCH MCHC RDW Plt Count MPV Absolute Neuts (auto) Neutrophils % Lymphocytes % Monocytes % Eosinophils % Basophils % Nucleated RBC % Sodium Potassium Chloride Carbon Dioxide Anion Gap BUN 114 H* D Creatinine Creat Clearance w eGFR POC Glucometer 184.77356 121.31575 Random Glucose Calcium Phosphorus Magnesium Total Bilirubin AST ALT Alkaline Phosphatase Total Protein Albumin 02/28/18 03/01/18 03/01/18 21:23 05:20 05:30 WBC 8.2 RBC 2.93 L Hgb 8.9 L Hct 26.9 L MCV 91.7 MCH 30.4 MCHC 33.1 RDW 19.3 H Plt Count 150 MPV 10.3 Absolute Neuts (auto) 6.9 Neutrophils % 83.9 H Lymphocytes % 9.2 Monocytes % 4.6 Eosinophils % 1.9 Basophils % 0.4 Nucleated RBC % 0 Sodium Potassium Chloride Carbon Dioxide Anion Gap BUN Creatinine Creat Clearance w eGFR POC Glucometer 175.52949 84.61165 Random Glucose Calcium Phosphorus Magnesium Total Bilirubin AST ALT Alkaline Phosphatase Total Protein Albumin 03/01/18 05:30 WBC RBC Hgb Hct MCV MCH MCHC RDW Plt Count MPV Absolute Neuts (auto) Neutrophils % Lymphocytes % Monocytes % Eosinophils % Basophils % Nucleated RBC % Sodium 147 H Potassium 3.6 Chloride 117 H Carbon Dioxide 21 Anion Gap 9 BUN 102 H Creatinine 2.0 H Creat Clearance w eGFR 31.91 POC Glucometer Random Glucose 55 L D Calcium 7.4 L Phosphorus 4.1 Magnesium 2.0 Total Bilirubin 0.3 AST 22 D ALT 36 Alkaline Phosphatase 74 D Total Protein 5.2 L Albumin 1.9 L Microbiology 02/17/18 03:00 Blood - Peripheral Venous Blood Culture - Final NO GROWTH AFTER 5 DAYS INCUBATION 02/17/18 03:00 Blood - Peripheral Venous Blood Culture - Final NO GROWTH AFTER 5 DAYS INCUBATION 02/17/18 10:40 Sputum - Endotrachea Suction/Ventilator Gram Stain - Final 02/17/18 10:40 Sputum - Endotrachea Suction/Ventilator Sputum Culture - Final Pseudomonas Aeruginosa Pseudo Fluorescens/[place] 02/16/18 23:40 Urine - Urine Clean Catch Urine Culture - Final NO GROWTH OBTAINED ASSESSMENT AND PLAN: 87 year old male with a significant past medical history of diastolic heart failure, NIDDM, CKD, and 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 Admitted on 02/17/18 from [facility] chronic respiratory failure and severe anemia with a hg of 5.5 and hypotension. -Acute Upper GI bleed from Dile[place]oy lesion -Acute blood loss anemia s/p 7 units PRBCs -Acute on chronic vent dependent respiratory failure, likely aspiration PNA. 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 h/h stable. repeat gastric lavage clear. GI input noted, feeds resumed, no concerns. COncerns for abdominal distension over weekend, repeat CT A/P with no acute concerns. GI input noted. Seen by surgery earlier this admission with no intervention. Bowel regimen. Zosyn day 15/Bactrim day 5, sputum cultures with pseudomonas, WBC stable, monitor for now. ID input noted, d/c zosyn today. Bactrim total 2 weeks course. At baseline vent settings, off steroids, monitor Pulmonary input appreciated. Cardiology input appreciated. Low dose metoprolol as tolerated. Off diltiazem drip. Hematology input noted. Continue Fe supplementation. Monitor renal function, cr overall plateaued, Renal input noted. -Levemir, ISS, resume tube feeds. Continue oxybutynin/flomax/zoloft. DVTPPX with SCDs given recurrent anemia with multiple transfusions and active GI bleed. . Plan discussed with nursing. Total critical care time spent in ICU 40 min.
--- NOTE | 2018-03-01 08:55 | PN ---
Progress Note, Physician Chief Complaint: Pt on ventilator/trached; eyes open, but does not appear to follow movement;; moves feet and hands spontaneously. History of Present Illness: The patient is an 87 year old white male, with a significant past medical history of traumatic fall (s/p neck (C4,5, and 6)/back surgery, tracheotomy placement now ventilator dependent, and PEG tube placement), frequent pneumonia , emphysema, A-fib, diastolic CHF, DM, dementia, renal failure, nonverbal TBI, paraplegic, legally blind and deaf, who presents to the emergency department via EMS from [facility] with, 3 days of hypotension. Now transferred to ICU after being found to have bright red blood on gastric tube lavage that led to PRBCs and heater probe coagulation. Allergies: NKA Social History: Former smoker (Quit 35 years ago). Denies EtOH use and recreational drug use. - Current Medication List Current Medications: Active Medications Acetaminophen (Tylenol -) 650 mg PO Q4H PRN PRN Reason: FEVER Last Admin: 02/28/18 21:17 Dose: 650 mg Artificial Tears (Artificial Tears) 2 drop OU BID [facility] Last Admin: 02/28/18 21:15 Dose: 2 drop Atorvastatin Calcium (Lipitor -) 10 mg GT HS [facility] Last Admin: 02/28/18 21:16 Dose: 10 mg Bacitracin (Bacitracin -) 1 applic TP TID [facility] Last Admin: 03/01/18 05:43 Dose: 1 applic Chlorhexidine Gluconate (Hibiclens For Decolonization -) 1 applic TP HS [facility] Last Admin: 02/28/18 21:16 Dose: 1 applic Collagenase (Santyl -) 1 applic TP DAILY [facility] Last Admin: 02/28/18 11:00 Dose: 1 applic Diltiazem HCl (Cardizem Injection -) 10 mg IVPUSH Q6H PRN PRN Reason: TACHYCARDIA Docusate Sodium (Colace Liquid -) 100 mg PO DAILY PRN PRN Reason: CONSTIPATION Ferrous Sulfate (Feosol) 300 mg GT DAILY [facility] Last Admin: 02/28/18 09:36 Dose: 300 mg Piperacillin Sod/Tazobactam (Sod 2.25 gm/ Dextrose) 50 mls @ 100 mls/hr IVPB Q8H-IV [facility]; Protocol Last Admin: 03/01/18 02:29 Dose: 100 mls/hr Insulin Aspart (Novolog Vial Sliding Scale -) 1 vial SQ [facility]; Protocol Last Admin: 03/01/18 06:14 Dose: Not Given Insulin Detemir (Levemir Vial) [address] [facility] Levothyroxine Sodium (Synthroid -) 37.5 mcg PEG DAILY@0700 [facility] Last Admin: 03/01/18 06:14 Dose: 37.5 mcg Metoprolol Tartrate (Lopressor -) 12.5 mg GT BID [facility] Last Admin: 02/28/18 21:16 Dose: 12.5 mg Mupirocin (Bactroban Ointment (For Decolonization) -) 1 applic NS BID [facility] Stop: 03/01/18 21:59 Last Admin: 02/28/18 21:15 Dose: 1 applic Non-Formulary Medication (Non-Formulary Med) 1 each GT DAILY [facility] Last Admin: 02/28/18 09:43 Dose: 1 each Nystatin (Nystop Powder -) 1 applic TP BID [facility] Last Admin: 02/28/18 21:18 Dose: 1 applic Oxybutynin Chloride (Ditropan -) 5 mg NGT BID [facility] Last Admin: 02/28/18 21:16 Dose: 5 mg Pantoprazole Sodium (Protonix Packets For Oral Suspension -) 40 mg NGT DAILY [facility] Last Admin: 02/28/18 09:45 Dose: 40 mg Senna (Senna Oral Solution -) 8.8 mg [address] [facility] Last Admin: 02/28/18 21:18 Dose: 8.8 mg Sertraline HCl (Zoloft -) 25 mg PO DAILY [facility] Last Admin: 02/28/18 11:00 Dose: 25 mg Tamsulosin HCl (Flomax -) 0.4 mg PO DAILY@0830 [facility] Last Admin: 02/28/18 08:49 Dose: 0.4 mg Trimethoprim/Sulfamethoxazole (Bactrim Oral Suspension -) 40 mg GT DAILY [facility] Last Admin: 02/28/18 09:32 Dose: 40 mg - Objective Vital Signs: Vital Signs Temperature 98.0 F 03/01/18 06:00 Pulse Rate 97 H 03/01/18 08:39 Respiratory Rate 18 03/01/18 08:39 Blood Pressure 114/64 03/01/18 06:00 O2 Sat by Pulse Oximetry (%) 99 03/01/18 08:39 Labs: CBC, BMP 03/01/18 05:30 03/01/18 05:30 INR, PTT INR 1.13 (0.82-1.09) 02/16/18 22:40 - ....Imaging Chest X-ray: Image Reviewed (02/27/18: right infiltrate) Other: Image Reviewed (telemetry:NSR; sinus arrhythmia) Problem List - Problems (1) Anemia Assessment/Plan: s/p EGD, cauterization, and PRBCs. Dark stools noted; no active bleed detected. Maintain hydration. F/u BUn/Cr Code(s): D64.9 - ANEMIA, UNSPECIFIED Qualifiers: Anemia type: due to chronic kidney disease Chronic kidney disease stage: unspecified stage Qualified Code(s): N18.9 - Chronic kidney disease, unspecified; D63.1 - Anemia in chronic kidney disease (2) Chronic kidney disease, stage 3 Assessment/Plan: f/u with chef de froid; Improvging BUN/Cr since GI caterization. Code(s): N18.3 - CHRONIC KIDNEY DISEASE, STAGE 3 (MODERATE) (3) Chronic respiratory failure Assessment/Plan: Ventilator dependent; on trach. On Assist control. Code(s): J96.10 - CHRONIC RESPIRATORY FAILURE, UNSP W HYPOXIA OR HYPERCAPNIA Qualifiers: Respiratory failure complication: unspecified whether with hypoxia or hypercapnia Qualified Code(s): J96.10 - Chronic respiratory failure, unspecified whether with hypoxia or hypercapnia (4) Hematuria Code(s): R31.9 - HEMATURIA, UNSPECIFIED (5) Hypotension Assessment/Plan: Pressure holding (off pressors). Code(s): I95.9 - HYPOTENSION, UNSPECIFIED (6) PAF (paroxysmal atrial fibrillation) Assessment/Plan: EKG 02/23/18: AF with RVR (HR 150 bpm); now has HR in 80s bpm. Restarted metoprolol at low dose (12.5 mg bid), titrate off diltiazem. If pt becomes profoundly bradycardia, will have to consider PPM. anticoagulation held due to GI bleed. TSH 3.59 recently. Code(s): I48.0 - PAROXYSMAL ATRIAL FIBRILLATION (7) S/P percutaneous endoscopic gastrostomy (PEG) tube placement Assessment/Plan: site appears intact Code(s): Z93.1 - GASTROSTOMY STATUS (8) Acute on chronic diastolic CHF (congestive heart failure) Code(s): I50.33 - ACUTE ON CHRONIC DIASTOLIC (CONGESTIVE) HEART FAILURE (9) Sinus bradycardia Code(s): R00.1 - BRADYCARDIA, UNSPECIFIED (10) TBI (traumatic brain injury) Code(s): S06.9X9A - UNSP INTRACRANIAL INJURY W LOC OF UNSP DURATION, INIT Qualifiers: Encounter type: sequela Loss of consciousness presence/duration: with LOC of unspecified duration Qualified Code(s): S06.9X9S - Unspecified intracranial injury with loss of consciousness of unspecified duration, sequela (11) Severe mitral regurgitation Code(s): I34.0 - NONRHEUMATIC MITRAL (VALVE) INSUFFICIENCY (12) Hypokalemia Code(s): E87.6 - HYPOKALEMIA (13) Hypoalbuminemia Code(s): E88.09 - OTH DISORDERS OF PLASMA-PROTEIN METABOLISM, NEC Assessment/Plan CCU time spent: 30 minutes
[2018-03-01] MEDS ORDERED: DEXTROSE 50%-WATER 25 GM/50 ML DISP.SYRIN ONE (09:07)
[2018-03-01] MEDS: TAMSULOSIN HCL 0.4 MG CAP.ER.24H (FP) PO SCH (09:11)
--- NOTE | 2018-03-01 09:22 | PN ---
Progress Note, Physician History of Present Illness: 87M w/ pmh of traumatic fall (s/p neck (C4,5, and 6)/back surgery, tracheotomy placement now ventilator dependent, and PEG tube placement), frequent pneumonia , emphysema, A-fib, CHF, DM, dementia, renal failure, nonverbal TBI, paraplegia , and legal blindness and deafness, who presents to the emergency department via EMS from [facility] with 3 days of hypotension. As per patients son , his blood pressure has been decreasing over the past few days. He reports that at baseline, his systolic is between 110-119 in the mornings and between 100-109 at night. Pt has failed 5 weaning trials in the last few days, and it was noticed that there was blood around the tracheostomy site when suctioning. Pt' son denies recent fevers, chills, chest pain, emesis, hematemesis, melena, and hematochezia in pt. - Current Medication List Current Medications: Active Medications Acetaminophen (Tylenol -) 650 mg PO Q4H PRN PRN Reason: FEVER Last Admin: 02/28/18 21:17 Dose: 650 mg Artificial Tears (Artificial Tears) 2 drop OU BID [facility] Last Admin: 02/28/18 21:15 Dose: 2 drop Atorvastatin Calcium (Lipitor -) 10 mg GT HS [facility] Last Admin: 02/28/18 21:16 Dose: 10 mg Bacitracin (Bacitracin -) 1 applic TP TID [facility] Last Admin: 03/01/18 05:43 Dose: 1 applic Chlorhexidine Gluconate (Hibiclens For Decolonization -) 1 applic TP HS [facility] Last Admin: 02/28/18 21:16 Dose: 1 applic Collagenase (Santyl -) 1 applic TP DAILY [facility] Last Admin: 02/28/18 11:00 Dose: 1 applic Diltiazem HCl (Cardizem Injection -) 10 mg IVPUSH Q6H PRN PRN Reason: TACHYCARDIA Docusate Sodium (Colace Liquid -) 100 mg PO DAILY PRN PRN Reason: CONSTIPATION Ferrous Sulfate (Feosol) 300 mg GT DAILY [facility] Last Admin: 02/28/18 09:36 Dose: 300 mg Piperacillin Sod/Tazobactam (Sod 2.25 gm/ Dextrose) 50 mls @ 100 mls/hr IVPB Q8H-IV [facility]; Protocol Last Admin: 03/01/18 02:29 Dose: 100 mls/hr Insulin Aspart (Novolog Vial Sliding Scale -) 1 vial SQ ACHS [facility]; Protocol Last Admin: 03/01/18 06:14 Dose: Not Given Insulin Detemir (Levemir Vial) 16 units SQ [facility] Levothyroxine Sodium (Synthroid -) 37.5 mcg PEG DAILY@0700 [facility] Last Admin: 03/01/18 06:14 Dose: 37.5 mcg Metoprolol Tartrate (Lopressor -) 12.5 mg GT BID [facility] Last Admin: 02/28/18 21:16 Dose: 12.5 mg Mupirocin (Bactroban Ointment (For Decolonization) -) 1 applic NS BID [facility] Stop: 03/01/18 21:59 Last Admin: 02/28/18 21:15 Dose: 1 applic Non-Formulary Medication (Non-Formulary Med) 1 each GT DAILY [facility] Last Admin: 02/28/18 09:43 Dose: 1 each Nystatin (Nystop Powder -) 1 applic TP BID [facility] Last Admin: 02/28/18 21:18 Dose: 1 applic Oxybutynin Chloride (Ditropan -) 5 mg NGT BID [facility] Last Admin: 02/28/18 21:16 Dose: 5 mg Pantoprazole Sodium (Protonix Packets For Oral Suspension -) 40 mg NGT DAILY [facility] Last Admin: 02/28/18 09:45 Dose: 40 mg Senna (Senna Oral Solution -) 8.8 mg PO [facility] Last Admin: 02/28/18 21:18 Dose: 8.8 mg Sertraline HCl (Zoloft -) 25 mg PO DAILY [facility] Last Admin: 02/28/18 11:00 Dose: 25 mg Tamsulosin HCl (Flomax -) 0.4 mg PO DAILY@0830 [facility] Last Admin: 03/01/18 09:11 Dose: 0.4 mg Trimethoprim/Sulfamethoxazole (Bactrim Oral Suspension -) 40 mg GT DAILY [facility] Last Admin: 02/28/18 09:32 Dose: 40 mg - Objective Vital Signs: Vital Signs Temperature 98.0 F 03/01/18 06:00 Pulse Rate 97 H 03/01/18 08:39 Respiratory Rate 18 03/01/18 08:39 Blood Pressure 114/64 03/01/18 06:00 O2 Sat by Pulse Oximetry (%) 99 03/01/18 08:39 Eyes: Yes: WNL, Conjunctiva Clear, EOM Intact HENT: Yes: WNL, Atraumatic, Normocephalic Neck: Yes: WNL, Supple, Trachea Midline Cardiovascular: Yes: WNL, Regular Rate and Rhythm Respiratory: Yes: Mechanically Ventilated Gastrointestinal: Yes: WNL, Normal Bowel Sounds Genitourinary: Yes: WNL Musculoskeletal: Yes: WNL Extremities: Yes: WNL Edema: No Integumentary: Yes: WNL Neurological: Yes: WNL, Alert, Oriented ...Motor Strength: WNL Psychiatric: Yes: WNL Labs: CBC, BMP 03/01/18 05:30 03/01/18 05:30 INR, PTT INR 1.13 (0.82-1.09) 02/16/18 22:40 Assessment/Plan Problems (1) Anemia Assessment/Plan: s/p EGD, cauterization, and PRBCs. Dark stools noted; no active bleed detected. Maintain hydration. F/u BUn/Cr Code(s): D64.9 - ANEMIA, UNSPECIFIED Qualifiers: Anemia type: due to chronic kidney disease Chronic kidney disease stage: unspecified stage Qualified Code(s): N18.9 - Chronic kidney disease, unspecified; D63.1 - Anemia in chronic kidney disease (2) Chronic kidney disease, stage 3 Assessment/Plan: f/u with manager cardiac; Improvging BUN/Cr since GI caterization. Code(s): N18.3 - CHRONIC KIDNEY DISEASE, STAGE 3 (MODERATE) (3) Chronic respiratory failure Assessment/Plan: Ventilator dependent; on trach. On Assist control. Code(s): J96.10 - CHRONIC RESPIRATORY FAILURE, UNSP W HYPOXIA OR HYPERCAPNIA Qualifiers: Respiratory failure complication: unspecified whether with hypoxia or hypercapnia Qualified Code(s): J96.10 - Chronic respiratory failure, unspecified whether with hypoxia or hypercapnia (4) Hematuria Code(s): R31.9 - HEMATURIA, UNSPECIFIED (5) Hypotension Assessment/Plan: Pressure holding (off pressors). Code(s): I95.9 - HYPOTENSION, UNSPECIFIED (6) PAF (paroxysmal atrial fibrillation) Assessment/Plan: EKG 02/23/18: AF with RVR (HR 150 bpm); now has HR in 80s bpm. Restarted metoprolol at low dose (12.5 mg bid), titrate off diltiazem. If pt becomes profoundly bradycardia, will have to consider PPM. anticoagulation held due to GI bleed. TSH 3.59 recently. Code(s): I48.0 - PAROXYSMAL ATRIAL FIBRILLATION (7) S/P percutaneous endoscopic gastrostomy (PEG) tube placement Assessment/Plan: site appears intact Code(s): Z93.1 - GASTROSTOMY STATUS (8) Acute on chronic diastolic CHF (congestive heart failure) Code(s): I50.33 - ACUTE ON CHRONIC DIASTOLIC (CONGESTIVE) HEART FAILURE (9) Sinus bradycardia Code(s): R00.1 - BRADYCARDIA, UNSPECIFIED (10) TBI (traumatic brain injury) Code(s): S06.9X9A - UNSP INTRACRANIAL INJURY W LOC OF UNSP DURATION, INIT Qualifiers: Encounter type: sequela Loss of consciousness presence/duration: with LOC of unspecified duration Qualified Code(s): S06.9X9S - Unspecified intracranial injury with loss of consciousness of unspecified duration, sequela (11) Severe mitral regurgitation Code(s): I34.0 - NONRHEUMATIC MITRAL (VALVE) INSUFFICIENCY (12) Hypokalemia Code(s): E87.6 - HYPOKALEMIA (13) Hypoalbuminemia Code(s): E88.09 - OTH DISORDERS OF PLASMA-PROTEIN METABOLISM, NEC Assessment/Plan CCU time spent: 37 minutes
[2018-03-01] MEDS: PANTOPRAZOLE SOD 40 MG SUSPENSION PACKET NGT SCH (09:45)
[2018-03-01] MEDS: OXYBUTYNIN CHLORIDE 5 MG TABLET NGT SCH ×2 (09:45→21:58)
[2018-03-01] MEDS: SERTRALINE HCL 25 MG TABLET (FP) PO SCH (09:45)
[2018-03-01] MEDS: SULFAMETHOXAZOLE/TMP 200MG-40MG/5ML GT SCH (09:46)
[2018-03-01] MEDS: FERROUS SO4 300 MG/5 ML ORAL SOLN UNIT DOSE CUPS GT SCH (09:47)
[2018-03-01] MEDS: ARTIFICIAL TEARS (POLYVINYL ALCOHOL 1.4%) OPTH DROPS OU SCH ×2 (09:48→21:57)
[2018-03-01] MEDS: MUPIROCIN 2% TOPICAL OINTMENT FOR DECOLONIZATION NS SCH ×2 (09:49→21:57)
[2018-03-01] MEDS: COLLAGENASE CLOSTRIDIUM HIST. 30 GRAMS TUBE TP SCH (09:52)
[2018-03-01] MEDS: NYSTATIN POWDER 100,000 UNITS/GM - 15 GM TOPICAL POWDER TP SCH ×2 (09:53→22:00)
[2018-03-01] MEDS: METOPROLOL TARTRATE 25 MG TABLET (FP) GT SCH ×2 (10:23→21:59)
--- NOTE | 2018-03-01 11:19 | PN ---
Physical Exam: SUBJECTIVE: Patient seen and examined at bed side in ICU No acute events over night H/H stable , had 2 BM yesterday with black stool likely old blood. completed course of 14 days Zosin , will resume another 10 days of bactrim , no fever no chills, no N/V. had hypoglycemia 50 in AM , D50 was given and decrease levemir to 16 units from 20 OBJECTIVE: Vital Signs Period Temp Pulse Resp BP Sys/Wills Pulse Ox Last 24 Hr 97.5 F-98.7 F 97-121 15-23 92-122/57-72 99-100 GENERAL: non verbal , respond to verbal stimuli HEAD: Normal with no signs of trauma. EYES: PERRLA, NECK: Tracheostomy , supple. LUNGS: decreased breath sounds at the bases , no wheezes HEART: Regular rate and rhythm, S1, S2 without murmur, rub or gallop. ABDOMEN: Soft, nontender, nondistended, normoactive bowel sounds, no guarding, no rebound, EXTREMITIES: 2+ pulses, warm, no edema NEUROLOGICAL: non verbal , unable to assess Laboratory Results - last 24 hr 02/26/18 02/26/18 02/27/18 17:12 17:15 16:33 WBC RBC Hgb Hct MCV MCH MCHC RDW Plt Count MPV Absolute Neuts (auto) Neutrophils % Lymphocytes % Monocytes % Eosinophils % Basophils % Nucleated RBC % Sodium Potassium Chloride Carbon Dioxide Anion Gap BUN Creatinine Creat Clearance w eGFR POC Glucometer 65.29606 85.23752 72.04943 Random Glucose Calcium Phosphorus Magnesium Total Bilirubin AST ALT Alkaline Phosphatase Total Protein Albumin 02/27/18 02/28/18 02/28/18 16:36 11:05 17:17 WBC RBC Hgb Hct MCV MCH MCHC RDW Plt Count MPV Absolute Neuts (auto) Neutrophils % Lymphocytes % Monocytes % Eosinophils % Basophils % Nucleated RBC % Sodium Potassium Chloride Carbon Dioxide Anion Gap BUN Creatinine Creat Clearance w eGFR POC Glucometer 72.62260 184.21211 121.44186 Random Glucose Calcium Phosphorus Magnesium Total Bilirubin AST ALT Alkaline Phosphatase Total Protein Albumin 02/28/18 03/01/18 03/01/18 21:23 05:20 05:30 WBC 8.2 RBC 2.93 L Hgb 8.9 L Hct 26.9 L MCV 91.7 MCH 30.4 MCHC 33.1 RDW 19.3 H Plt Count 150 MPV 10.3 Absolute Neuts (auto) 6.9 Neutrophils % 83.9 H Lymphocytes % 9.2 Monocytes % 4.6 Eosinophils % 1.9 Basophils % 0.4 Nucleated RBC % 0 Sodium Potassium Chloride Carbon Dioxide Anion Gap BUN Creatinine Creat Clearance w eGFR POC Glucometer 175.95984 84.68241 Random Glucose Calcium Phosphorus Magnesium Total Bilirubin AST ALT Alkaline Phosphatase Total Protein Albumin 03/01/18 05:30 WBC RBC Hgb Hct MCV MCH MCHC RDW Plt Count MPV Absolute Neuts (auto) Neutrophils % Lymphocytes % Monocytes % Eosinophils % Basophils % Nucleated RBC % Sodium 147 H Potassium 3.6 Chloride 117 H Carbon Dioxide 21 Anion Gap 9 BUN 102 H Creatinine 2.0 H Creat Clearance w eGFR 31.91 POC Glucometer Random Glucose 55 L D Calcium 7.4 L Phosphorus 4.1 Magnesium 2.0 Total Bilirubin 0.3 AST 22 D ALT 36 Alkaline Phosphatase 74 D Total Protein 5.2 L Albumin 1.9 L Active Medications Generic Name Dose Route Start Last Admin Trade Name Freq PRN Reason Stop Dose Admin Acetaminophen 650 mg 02/27/18 16:55 02/28/18 21:17 Tylenol - PO 650 mg Q4H PRN Administration FEVER Artificial Tears 2 drop 02/27/18 22:00 03/01/18 09:48 Artificial Tears OU 2 drop BID [facility] Administration Atorvastatin Calcium 10 mg 02/27/18 22:00 02/28/18 21:16 Lipitor - GT 10 mg HS [facility] Administration Collagenase 1 applic 02/28/18 10:00 03/01/18 09:52 Santyl - TP 1 applic DAILY [facility] Administration Diltiazem HCl 10 mg 02/27/18 16:55 Cardizem Injection - IVPUSH Q6H PRN TACHYCARDIA Docusate Sodium 100 mg 02/27/18 16:55 Colace Liquid - PO DAILY PRN CONSTIPATION Ferrous Sulfate 300 mg 02/28/18 10:00 03/01/18 09:47 Feosol GT 300 mg DAILY [facility] Administration Piperacillin Sod/Tazobactam 50 mls @ 100 mls/hr 02/27/18 18:00 03/01/18 10:06 Sod 2.25 gm/ Dextrose IVPB 100 mls/hr Q8H-IV [facility] Administration Protocol Insulin Aspart 1 vial 02/27/18 22:00 03/01/18 06:14 Novolog Vial Sliding Scale - SQ Not Given ACHS [facility] Protocol Insulin Detemir 16 units 03/01/18 08:10 Levemir Vial SQ HS [facility] Levothyroxine Sodium 37.5 mcg 02/28/18 07:00 03/01/18 06:14 Synthroid - PEG 37.5 mcg DAILY@0700 [facility] Administration Metoprolol Tartrate 12.5 mg 02/27/18 22:00 03/01/18 10:23 Lopressor - GT 12.5 mg BID [facility] Administration Mupirocin 1 applic 02/27/18 22:00 03/01/18 09:49 Bactroban Ointment (For Decolonization) - NS 03/01/18 21:59 1 applic BID [facility] Administration Non-Formulary Medication 1 each 02/28/18 10:00 02/28/18 09:43 Non-Formulary Med GT 1 each DAILY [facility] Administration Nystatin 1 applic 02/27/18 22:00 03/01/18 09:53 Nystop Powder - TP 1 applic BID [facility] Administration Oxybutynin Chloride 5 mg 02/27/18 22:00 03/01/18 09:45 Ditropan - NGT 5 mg BID [facility] Administration Pantoprazole Sodium 40 mg 02/28/18 10:00 03/01/18 09:45 Protonix Packets For Oral Suspension - NGT 40 mg DAILY [facility] Administration Sertraline HCl 25 mg 02/28/18 10:00 03/01/18 09:45 Zoloft - PO 25 mg DAILY [facility] Administration Tamsulosin HCl 0.4 mg 02/28/18 08:30 03/01/18 09:11 Flomax - PO 0.4 mg DAILY@0830 [facility] Administration Trimethoprim/Sulfamethoxazole 40 mg 02/28/18 10:00 03/01/18 09:46 Bactrim Oral Suspension - GT 40 mg DAILY [facility] Administration CBC, BMP 03/01/18 05:30 03/01/18 05:30 ASSESSMENT/PLAN: 87 y/o M with PMH significant for 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 Neuro: * Nonverbal , respond to verbal stimuli , open his eyes , * Pain control * continue cindy meds zoloft CV: -DCHF: in no acute exacerbation , no volume over loaded - Afib * off CArdezim drip * discussed with Dr. Sorto. Pt has preserved LV EF and normal LV size. cont Lopressor 12.5mg BID, Pulm: * Possible aspirations PNA- (+) sputum cultures pseudomonas * aspiration precautions. * trachea and vented. AC settings RR 14, TV 450, PEEP 5 * Maintain SpO2>90% * Dc medrol * poor weaning candidate due to mental status * cont abx bactrim for another 10 days , zosyn has been completed . GI: * UGIB s/p EGD and thermal coagulation. * has 2 BM with old black stool * resume tube feeding * cont meds through G tube * PPI BID * monitor H/H now and in AM * transfuse as needed to keep HGb > 8 * PEG in place with non bilious lekage adjusted by GI Dr Okeefe ID: * aspirations PNA with (+) Pseudomonas * Zosyn day 15 completed * Afebrile and WBC 11.5 ...13.2...8.2 * blood CX negative , * repeat CBC, in AM Heme * Anemia 2/2 UGIB * S/P 7 PRBCS total * Epogen weekly * Monitor H/H * no active bleeding * Transfuse as needed to keep Hgb>8 Renal: * KATERIN on CKD , BUN /Cr 167/2.5 likely due to volume loss and upper GI bleed * Hypernatremia 150 - free water def. 2.5 L * Continue to monitor renal function. * IV fluids with caution * Hydration through the G tube once it is usable. * Nephrology consult appreciated. ENDO: * IDDM an hypothyroidism * decrease levemir to 16 due to hypoglycemia * Synthroid IV 37.5 PEG daily * ISS held as patient is NPO * resume feeding through G tube FEN: * F: No standing fluids * hypokalemia, resolved and hypernatremia ; repeat BMP in AM * N: resume tube feeding Dispo:transfer to [facility]- surg total critical time 45 min Visit type - Emergency Visit Emergency Visit: Yes ED Registration Date: 02/17/18 Care time: The patient presented to the Emergency Department on the above date and was hospitalized for further evaluation of their emergent condition. - New Patient This patient is new to me today: No - Critical Care Critical Care patient: Yes Total Critical Care Time (in minutes): 45 Critical Care Statement: The care of this patient involved high complexity decision making to prevent further life threatening deterioration of the patient 's condition and/or to evaluate & treat vital organ system(s) failure or risk of failure.
[2018-03-01] MEDS: NON-FORMULARY MED GT SCH (12:00)
--- NOTE | 2018-03-01 12:06 | EKG ---
Test Reason : Blood Pressure : / mmHG Vent. Rate : 076 BPM Atrial Rate : 277 BPM P-R Int : 000 ms QRS Dur : 062 ms QT Int : 394 ms P-R-T Axes : 000 053 079 degrees QTc Int : 443 ms ATRIAL FIBRILLATION LOW VOLTAGE QRS SEPTAL INFARCT (CITED ON OR BEFORE 24-FEB-2018) ABNORMAL ECG WHEN COMPARED WITH ECG OF 25-FEB-2018 09:14, ATRIAL FIBRILLATION HAS REPLACED SINUS RHYTHM Confirmed by BLU GONCALVES, EDWIN ([id number]) on 03/01/2018 12:05:37 PM Referred By: Confirmed By:EDWIN HURT MD
--- NOTE | 2018-03-01 12:20 | PN ---
Teaching Attending Note Name of Resident: Peter Dejesus ATTENDING PHYSICIAN STATEMENT I saw and evaluated the patient. I reviewed the resident's note and discussed the case with the resident. I agree with the resident's findings and plan as documented. SUBJECTIVE: Pt seen and examined in the ICU. Vented, poorly responsive. No fevers recorded. H/H has been stable. OBJECTIVE: Vital Signs Period Temp Pulse Resp BP Sys/Wills Pulse Ox Last 24 Hr 97.5 F-98.7 F 97-121 15-23 92-122/57-72 99-100 Intake & Output 02/26/18 02/27/18 02/28/18 03/01/18 23:59 23:59 23:59 23:59 Intake Total 2664.5 3147.5 1780 750 Output Total 1900 1200 1500 450 Balance 764.5 1947.5 280 300 Weight 64.665 kg 65.799 kg 65.969 kg 66.848 kg Gen: vented, poorly responsive Heart: irregular Lung: decreased breath sounds at the bases Abd: softly distended, nontender Ext: no edema CBC, BMP 03/01/18 05:30 03/01/18 05:30 Active Medications Acetaminophen (Tylenol -) 650 mg PO Q4H PRN PRN Reason: FEVER Last Admin: 02/28/18 21:17 Dose: 650 mg Artificial Tears (Artificial Tears) 2 drop OU BID [facility] Last Admin: 03/01/18 09:48 Dose: 2 drop Atorvastatin Calcium (Lipitor -) 10 mg GT HS [facility] Last Admin: 02/28/18 21:16 Dose: 10 mg Collagenase (Santyl -) 1 applic TP DAILY [facility] Last Admin: 03/01/18 09:52 Dose: 1 applic Diltiazem HCl (Cardizem Injection -) 10 mg IVPUSH Q6H PRN PRN Reason: TACHYCARDIA Docusate Sodium (Colace Liquid -) 100 mg PO DAILY PRN PRN Reason: CONSTIPATION Ferrous Sulfate (Feosol) 300 mg GT DAILY [facility] Last Admin: 03/01/18 09:47 Dose: 300 mg Piperacillin Sod/Tazobactam (Sod 2.25 gm/ Dextrose) 50 mls @ 100 mls/hr IVPB Q8H-IV [facility]; Protocol Last Admin: 03/01/18 10:06 Dose: 100 mls/hr Insulin Aspart (Novolog Vial Sliding Scale -) 1 vial SQ ACHS [facility]; Protocol Last Admin: 03/01/18 06:14 Dose: Not Given Insulin Detemir (Levemir Vial) 16 units SQ [facility] Levothyroxine Sodium (Synthroid -) 37.5 mcg PEG DAILY@0700 [facility] Last Admin: 03/01/18 06:14 Dose: 37.5 mcg Metoprolol Tartrate (Lopressor -) 12.5 mg GT BID [facility] Last Admin: 03/01/18 10:23 Dose: 12.5 mg Mupirocin (Bactroban Ointment (For Decolonization) -) 1 applic NS BID [facility] Stop: 03/01/18 21:59 Last Admin: 03/01/18 09:49 Dose: 1 applic Non-Formulary Medication (Non-Formulary Med) 1 each GT DAILY [facility] Last Admin: 02/28/18 09:43 Dose: 1 each Nystatin (Nystop Powder -) 1 applic TP BID [facility] Last Admin: 03/01/18 09:53 Dose: 1 applic Oxybutynin Chloride (Ditropan -) 5 mg NGT BID [facility] Last Admin: 03/01/18 09:45 Dose: 5 mg Pantoprazole Sodium (Protonix Packets For Oral Suspension -) 40 mg NGT DAILY [facility] Last Admin: 03/01/18 09:45 Dose: 40 mg Sertraline HCl (Zoloft -) 25 mg PO DAILY [facility] Last Admin: 03/01/18 09:45 Dose: 25 mg Tamsulosin HCl (Flomax -) 0.4 mg PO DAILY@0830 [facility] Last Admin: 03/01/18 09:11 Dose: 0.4 mg Trimethoprim/Sulfamethoxazole (Bactrim Oral Suspension -) 40 mg GT DAILY [facility] Last Admin: 03/01/18 09:46 Dose: 40 mg ASSESSMENT AND PLAN: GI Bleed/Gastric Dieulafoy Lesion s/p EGD/epi/cautery Acute Blood Loss Anemia Chronic Respiratory Failure Pneumonia h/o Traumatic Brain Injury Functional Quadriplegia Acute on Chronic Renal Failure Atrial Fibrillation DM Dementia - monitor H/H - protonix - antibiotics per ID, can likely d/c - rate control - holding anticoagulation - continue volume assist control - poor candidate for weaning due to poor mental status - replete free water - enteral feeds as tolerated - DVT/GI prophylaxis - can monitor on vent floor
--- NOTE | 2018-03-01 13:19 | PN ---
Progress Note, Physician History of Present Illness: patient looks much calmer awake and alert follows you but non verbal - Current Medication List Current Medications: Active Medications Acetaminophen (Tylenol -) 650 mg PO Q4H PRN PRN Reason: FEVER Last Admin: 02/28/18 21:17 Dose: 650 mg Artificial Tears (Artificial Tears) 2 drop OU BID [facility] Last Admin: 03/01/18 09:48 Dose: 2 drop Atorvastatin Calcium (Lipitor -) 10 mg GT HS [facility] Last Admin: 02/28/18 21:16 Dose: 10 mg Collagenase (Santyl -) 1 applic TP DAILY [facility] Last Admin: 03/01/18 09:52 Dose: 1 applic Diltiazem HCl (Cardizem Injection -) 10 mg IVPUSH Q6H PRN PRN Reason: TACHYCARDIA Docusate Sodium (Colace Liquid -) 100 mg PO DAILY PRN PRN Reason: CONSTIPATION Ferrous Sulfate (Feosol) 300 mg GT DAILY [facility] Last Admin: 03/01/18 09:47 Dose: 300 mg Piperacillin Sod/Tazobactam (Sod 2.25 gm/ Dextrose) 50 mls @ 100 mls/hr IVPB Q8H-IV [facility]; Protocol Last Admin: 03/01/18 10:06 Dose: 100 mls/hr Insulin Aspart (Novolog Vial Sliding Scale -) 1 vial SQ [facility]; Protocol Last Admin: 03/01/18 06:14 Dose: Not Given Insulin Detemir (Levemir Vial) 16 units SQ [facility] Levothyroxine Sodium (Synthroid -) 37.5 mcg PEG DAILY@0700 [facility] Last Admin: 03/01/18 06:14 Dose: 37.5 mcg Metoprolol Tartrate (Lopressor -) 12.5 mg GT BID [facility] Last Admin: 03/01/18 10:23 Dose: 12.5 mg Mupirocin (Bactroban Ointment (For Decolonization) -) 1 applic NS BID [facility] Stop: 03/01/18 21:59 Last Admin: 03/01/18 09:49 Dose: 1 applic Non-Formulary Medication (Non-Formulary Med) 1 each GT DAILY [facility] Last Admin: 02/28/18 09:43 Dose: 1 each Nystatin (Nystop Powder -) 1 applic TP BID [facility] Last Admin: 03/01/18 09:53 Dose: 1 applic Oxybutynin Chloride (Ditropan -) 5 mg NGT BID [facility] Last Admin: 03/01/18 09:45 Dose: 5 mg Pantoprazole Sodium (Protonix Packets For Oral Suspension -) 40 mg NGT DAILY [facility] Last Admin: 03/01/18 09:45 Dose: 40 mg Sertraline HCl (Zoloft -) 25 mg PO DAILY [facility] Last Admin: 03/01/18 09:45 Dose: 25 mg Tamsulosin HCl (Flomax -) 0.4 mg PO DAILY@0830 [facility] Last Admin: 03/01/18 09:11 Dose: 0.4 mg Trimethoprim/Sulfamethoxazole (Bactrim Oral Suspension -) 40 mg GT DAILY [facility] Last Admin: 03/01/18 09:46 Dose: 40 mg - Objective Vital Signs: Vital Signs Temperature 98.0 F 03/01/18 06:00 Pulse Rate 97 H 03/01/18 08:39 Respiratory Rate 19 03/01/18 11:29 Blood Pressure 114/64 03/01/18 06:00 O2 Sat by Pulse Oximetry (%) 99 03/01/18 08:39 Constitutional: Yes: No Distress, Calm Cardiovascular: Yes: Pulse Irregular Respiratory: Yes: Regular, Mechanically Ventilated, Other (trach collar) Gastrointestinal: Yes: Normal Bowel Sounds, Soft, Other (peg tube in place) Musculoskeletal: Yes: WNL Extremities: Yes: Other Edema: LLE: 1+, RLE: 1+ Neurological: Yes: Alert Psychiatric: Yes: Other Labs: CBC, BMP 03/01/18 05:30 03/01/18 05:30 INR, PTT INR 1.13 (0.82-1.09) 02/16/18 22:40 Assessment/Plan Problem List - Problems (1) Anemia Code(s): D64.9 - ANEMIA, UNSPECIFIED (2) Chronic kidney disease, stage 3 Code(s): N18.3 - CHRONIC KIDNEY DISEASE, STAGE 3 (MODERATE) (3) Chronic respiratory failure Code(s): J96.10 - CHRONIC RESPIRATORY FAILURE, UNSP W HYPOXIA OR HYPERCAPNIA Qualifiers: Respiratory failure complication: unspecified whether with hypoxia or hypercapnia Qualified Code(s): J96.10 - Chronic respiratory failure, unspecified whether with hypoxia or hypercapnia (4) PAF (paroxysmal atrial fibrillation) Code(s): I48.0 - PAROXYSMAL ATRIAL FIBRILLATION (5) Renal failure Code(s): N19 - UNSPECIFIED KIDNEY FAILURE Qualifiers: Renal failure chronicity: unspecified chronicity Qualified Code(s): N19 - Unspecified kidney failure (6) Diabetes Code(s): E11.9 - TYPE 2 DIABETES MELLITUS WITHOUT COMPLICATIONS (7) TBI (traumatic brain injury) Code(s): S06.9X9A - UNSP INTRACRANIAL INJURY W LOC OF UNSP DURATION, INIT (8) [id number] kidney injury Code(s): N17.9 - ACUTE KIDNEY FAILURE, UNSPECIFIED; N18.9 - CHRONIC KIDNEY DISEASE, UNSPECIFIED (9) Hnbow-hm-dhcqjmg renal failure Code(s): N17.9 - ACUTE KIDNEY FAILURE, UNSPECIFIED; N18.9 - CHRONIC KIDNEY DISEASE, UNSPECIFIED (10) Hypotension Code(s): I95.9 - HYPOTENSION, UNSPECIFIED (11) Hypotension Code(s): I95.9 - HYPOTENSION, UNSPECIFIED 12 gi bleed 13 difuleoy lesion I plan stop zosyn continue bactrim secretions are less nutrition rest as per the team and icu cc time 40 min
--- NOTE | 2018-03-01 13:26 | PN ---
Physical Exam: SUBJECTIVE: Patient seen and examined at bedside. Pt had rectal tube decompression. Glucose was slightly low this morning. Pt was given D50. OBJECTIVE: Vital Signs Period Temp Pulse Resp BP Sys/Wills Pulse Ox Last 24 Hr 97.5 F-98.7 F 97-121 15-23 92-122/57-72 99-100 unchanged Gen: uncommunicative. No apparent distress HEENT: NCAT Neck: trach tube in place. No blood at stoma. functioning well Cardio: irregular, tachycardic, norm s1s2, no m/r/g appreciated Lungs:clear breath sounds anteriorly Abd: soft, less distended. No blood at peg site Ext: 1+ pulses, no edema Laboratory Results - last 24 hr 02/26/18 02/26/18 02/27/18 17:12 17:15 16:33 WBC RBC Hgb Hct MCV MCH MCHC RDW Plt Count MPV Absolute Neuts (auto) Neutrophils % Lymphocytes % Monocytes % Eosinophils % Basophils % Nucleated RBC % Sodium Potassium Chloride Carbon Dioxide Anion Gap BUN Creatinine Creat Clearance w eGFR POC Glucometer 65.30914 85.84362 72.53371 Random Glucose Calcium Phosphorus Magnesium Total Bilirubin AST ALT Alkaline Phosphatase Total Protein Albumin 02/27/18 02/28/18 02/28/18 16:36 17:17 21:23 WBC RBC Hgb Hct MCV MCH MCHC RDW Plt Count MPV Absolute Neuts (auto) Neutrophils % Lymphocytes % Monocytes % Eosinophils % Basophils % Nucleated RBC % Sodium Potassium Chloride Carbon Dioxide Anion Gap BUN Creatinine Creat Clearance w eGFR POC Glucometer 72.70579 121.62395 [phone] Random Glucose Calcium Phosphorus Magnesium Total Bilirubin AST ALT Alkaline Phosphatase Total Protein Albumin 03/01/1818 03/01/18 05:20 05:30 05:30 WBC 8.2 RBC 2.93 L Hgb 8.9 L Hct 26.9 L MCV 91.7 MCH 30.4 MCHC 33.1 RDW 19.3 H Plt Count 150 MPV 10.3 Absolute Neuts (auto) 6.9 Neutrophils % 83.9 H Lymphocytes % 9.2 Monocytes % 4.6 Eosinophils % 1.9 Basophils % 0.4 Nucleated RBC % 0 Sodium 147 H Potassium 3.6 Chloride 117 H Carbon Dioxide 21 Anion Gap 9 BUN 102 H Creatinine 2.0 H Creat Clearance w eGFR 31.91 POC Glucometer 84.64263 Random Glucose 55 L D Calcium 7.4 L Phosphorus 4.1 Magnesium 2.0 Total Bilirubin 0.3 AST 22 D ALT 36 Alkaline Phosphatase 74 D Total Protein 5.2 L Albumin 1.9 L Active Medications Generic Name Dose Route Start Last Admin Trade Name Freq PRN Reason Stop Dose Admin Acetaminophen 650 mg 02/27/18 16:55 02/28/18 21:17 Tylenol - PO 650 mg Q4H PRN Administration FEVER Artificial Tears 2 drop 02/27/18 22:00 03/01/18 09:48 Artificial Tears OU 2 drop BID LILIA Administration Atorvastatin Calcium 10 mg 02/27/18 22:00 02/28/18 21:16 Lipitor - GT 10 mg HS LILIA Administration Collagenase 1 applic 02/28/18 10:00 03/01/18 09:52 Santyl - TP 1 applic DAILY LILIA Administration Diltiazem HCl 10 mg 02/27/18 16:55 Cardizem Injection - IVPUSH Q6H PRN TACHYCARDIA Docusate Sodium 100 mg 02/27/18 16:55 Colace Liquid - PO DAILY PRN CONSTIPATION Ferrous Sulfate 300 mg 02/28/18 10:00 03/01/18 09:47 Feosol GT 300 mg DAILY LILIA Administration Piperacillin Sod/Tazobactam 50 mls @ 100 mls/hr 02/27/18 18:00 03/01/18 10:06 Sod 2.25 gm/ Dextrose IVPB 100 mls/hr Q8H-IV LILIA Administration Protocol Insulin Aspart 1 vial 02/27/18 22:00 03/01/18 06:14 Novolog Vial Sliding Scale - SQ Not Given [facility] Protocol Insulin Detemir 16 units 03/01/18 08:10 Levemir Vial SQ HS [facility] Levothyroxine Sodium 37.5 mcg 02/28/18 07:00 03/01/18 06:14 Synthroid - PEG 37.5 mcg DAILY@0700 LILIA Administration Metoprolol Tartrate 12.5 mg 02/27/18 22:00 03/01/18 10:23 Lopressor - GT 12.5 mg BID LILIA Administration Mupirocin 1 applic 02/27/18 22:00 03/01/18 09:49 Bactroban Ointment (For Decolonization) - NS 03/01/18 21:59 1 applic BID LILIA Administration Non-Formulary Medication 1 each 02/28/18 10:00 02/28/18 09:43 Non-Formulary Med GT 1 each DAILY LILIA Administration Nystatin 1 applic 02/27/18 22:00 03/01/18 09:53 Nystop Powder - TP 1 applic BID LILIA Administration Oxybutynin Chloride 5 mg 02/27/18 22:00 03/01/18 09:45 Ditropan - NGT 5 mg BID LILIA Administration Pantoprazole Sodium 40 mg 02/28/18 10:00 03/01/18 09:45 Protonix Packets For Oral Suspension - NGT 40 mg DAILY LILIA Administration Sertraline HCl 25 mg 02/28/18 10:00 03/01/18 09:45 Zoloft - PO 25 mg DAILY LILIA Administration Tamsulosin HCl 0.4 mg 02/28/18 08:30 03/01/18 09:11 Flomax - PO 0.4 mg DAILY@0830 LILIA Administration Trimethoprim/Sulfamethoxazole 40 mg 02/28/18 10:00 03/01/18 09:46 Bactrim Oral Suspension - GT 40 mg DAILY LILIA Administration ASSESSMENT/PLAN: Pt is an 87 y/o M with PMH significant for 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 Pt is admitted to Med-Surg. #Afib -Pt alternates between fast and slow Afib. rate varies between 50 and 150 -Has been treated previously with Lopressor PRN. -Cardizem stopped -Lopressor 12.5mg BID -Cardio on board #GIB: likely Resolved -fobt pos -anemia -counts were dropping despite prbcs and epo -GI consulted -gastric lavage with pink/red fluid -Pt had a scope sig for bleeding AVM -Discussed with GI -G-tube feeds held temporarily over the weekend. Currently running -Pt had black bm this am. Likely old blood. #Abdominal distension -intermittent large volume stools reported -abdomen soft, distended, tympanic -NPO -2nd CTAP neg for volvulus #Acute on chronic resp failure -likely 2/2 aspiration PNA -at baseline vent settings: AC Tv 450, RR 14, FiO2 28, PEEP 5 -Initially on Medrol 40. d/c'ed -Prednisone 40 -Pulm on board: poor weaning candidate #Asp PNA -ID on board -Sputum culture pos for P aerug. Pseudo fluorescens -Zosyn , Bactrim #Anemia -was transfused 7 PRBCs total -Hb stable last 2 days -Given Epo (02/20/2018) -Heme on board: will give weekly Epo -No obvious active bleed -per son, had negative colonoscopy 2 years ago #Acute on CKD - Conductor/Brakeman stabilized - BUN up-trending -? etiology. ?steroids vs GIB (most likely) vs dehydration (likely component) -Nepro on board: prerenal. Adjusted fluids #Hypernatremia -fluids modified by nephro -Nephro input appreciated #Hypokalemia: resolved -Fluids monitored and adjusted by nephro #Thrombophilia - Resolved -plt wnl #DM -Levemir was increased -ISS -glucose continues to be elevated in 150s -titrate Insulin #TBI -s/p trach and PEG -secondary paraplegia #Hypothyroid -c/w synthroid #Incontinence -christopher -flomax -oxybutinin #depression -zoloft #FEN -not on fluids -lytes: hyerNa. HypoK. Repleting -Nutrition: via G-tube. flushes #PPx -held in setting of possible bleed #Dispo -med surg Elia Prieto MD PGY-1 IM Visit type - Emergency Visit Emergency Visit: No - New Patient This patient is new to me today: No - Critical Care Critical Care patient: No - Discharge Referral Referred to [facility] Med P.C.: No
[2018-03-01] MEDS ORDERED: DOCUSATE NA 100 MG/10 ML UNIT-DOSE CUPS PO PRN (15:42)
[2018-03-01] MEDS: ATORVASTATIN CA 10 MG TABLET (FP) GT SCH (21:58)
[2018-03-01] MEDS: INSULIN (LEVEMIR) 100 UNITS/ML UNITS SQ SCH (21:59)
[2018-03-02] MEDS ORDERED: dilTIAZem HCL 125 MG/25 ML - 25 ML VIAL ONE (01:48)
[2018-03-02] MEDS: dilTIAZem HCL 50 MG/10 ML - 10 ML VIAL IVPUSH PRN ×2 (01:50→09:45)
[2018-03-02 06:11] LABS: BASO % 0.4 % (0-2.0); EOS % 1.3 % (0-4.5); HEMATOCRIT 27.5 % (35.4-49); HEMOGLOBIN 9.1 GM/dL (11.7-16.9); LYMPH % 6.2 % (8-40); MCH 30.8 pg (25.7-33.7); MCHC 33.2 g/dl (32.0-35.9); MEAN CELL VOLUME 92.7 fl (80-96); MEAN PLT VOLUME 10.2 fl (7.5-11.1); MONO % 4.9 % (3.8-10.2); NEUT % 87.2 % (42.8-82.8); PLATELET COUNT 137 K/MM3 (134-434); RBC 2.97 M/mm3 (4.00-5.60); RDW 22.1 % (11.9-15.9)
[2018-03-02] MEDS: LEVOTHYROXINE NA 25 MCG TABLET (FP) PEG SCH (06:31)
[2018-03-02] MEDS: INSULIN SLIDING SCALE (NOVOLOG) 1 VIAL SQ SCH ×4 (06:32→21:56)
[2018-03-02 06:47] LABS: ANION GAP 9 (8-16); BLOOD UREA NITROGEN 86 mg/dL (7-18); CALCIUM 7.5 mg/dL (8.5-10.1); CHLORIDE 115 mmol/L (98-107); CO2 21 mmol/L (21-32); CREATININE 1.9 mg/dL (0.7-1.3); GLUCOSE,RANDOM 159 mg/dL (74-106); PHOSPHOROUS 3.8 mg/dL (2.5-4.9); POTASSIUM 4.1 mmol/L (3.5-5.1); SGOT/AST 37 U/L (15-37); SGPT/ALT 43 U/L (12-78); SODIUM 145 mmol/L (136-145)
--- NOTE | 2018-03-02 06:48 | PN ---
Physical Exam: SUBJECTIVE: Patient seen and examined at bedside. Per nurse, had more dark stools overnight. Pt had tachycardia resistant to Lopressor and was given Cardizem drip, which was effective. Afebrile. OBJECTIVE: Vital Signs Period Temp Pulse Resp BP Sys/Wills Pulse Ox Last 24 Hr 97.5 F-98.9 F 87-139 14-24 98-121/54-94 98-100 Gen: uncommunicative. No apparent distress. Opened eyes to touch HEENT: NCAT Neck: trach tube in place. No blood at stoma. functioning well Cardio: irregular, tachycardic, norm s1s2, no m/r/g appreciated Lungs:clear breath sounds anteriorly Abd: soft, more distended. Taut and tympanic. No blood at peg site Ext: 1+ pulses, no edema Laboratory Results - last 24 hr 02/26/18 02/26/18 02/27/18 17:12 17:15 16:33 WBC RBC Hgb Hct MCV MCH MCHC RDW Plt Count MPV Absolute Neuts (auto) Neutrophils % Lymphocytes % Monocytes % Eosinophils % Basophils % Nucleated RBC % Sodium Potassium Chloride Carbon Dioxide Anion Gap BUN Creatinine Creat Clearance w eGFR POC Glucometer 65.91108 85.69752 72.29430 Random Glucose Calcium Phosphorus Magnesium Total Bilirubin AST ALT Alkaline Phosphatase Total Protein Albumin 02/27/18 03/01/18 03/01/18 16:36 05:30 09:02 WBC RBC Hgb Hct MCV MCH MCHC RDW Plt Count MPV Absolute Neuts (auto) Neutrophils % Lymphocytes % Monocytes % Eosinophils % Basophils % Nucleated RBC % Sodium 147 H Potassium 3.6 Chloride 117 H Carbon Dioxide 21 Anion Gap 9 BUN 102 H Creatinine 2.0 H Creat Clearance w eGFR 31.91 POC Glucometer 72.90999 68.45636 Random Glucose 55 L D Calcium 7.4 L Phosphorus 4.1 Magnesium 2.0 Total Bilirubin 0.3 AST 22 D ALT 36 Alkaline Phosphatase 74 D Total Protein 5.2 L Albumin 1.9 L 03/01/18 03/01/18 03/01/18 12:38 18:15 21:55 WBC RBC Hgb Hct MCV MCH MCHC RDW Plt Count MPV Absolute Neuts (auto) Neutrophils % Lymphocytes % Monocytes % Eosinophils % Basophils % Nucleated RBC % Sodium Potassium Chloride Carbon Dioxide Anion Gap BUN Creatinine Creat Clearance w eGFR POC Glucometer 98.04344 89.60342 109.94915 Random Glucose Calcium Phosphorus Magnesium Total Bilirubin AST ALT Alkaline Phosphatase Total Protein Albumin 03/02/18 03/02/18 05:30 05:46 WBC 9.0 RBC 2.97 L Hgb 9.1 L Hct 27.5 L MCV 92.7 MCH 30.8 MCHC 33.2 RDW 22.1 H Plt Count 137 MPV 10.2 Absolute Neuts (auto) 7.8 Neutrophils % 87.2 H Lymphocytes % 6.2 L D Monocytes % 4.9 Eosinophils % 1.3 Basophils % 0.4 Nucleated RBC % 0 Sodium Potassium Chloride Carbon Dioxide Anion Gap BUN Creatinine Creat Clearance w eGFR POC Glucometer 164.61401 Random Glucose Calcium Phosphorus Magnesium Total Bilirubin AST ALT Alkaline Phosphatase Total Protein Albumin Active Medications Generic Name Dose Route Start Last Admin Trade Name Freq PRN Reason Stop Dose Admin Acetaminophen 650 mg 03/01/18 15:42 Tylenol - PO Q4H PRN FEVER Artificial Tears 2 drop 03/01/18 22:00 03/01/18 21:57 Artificial Tears OU 2 drop BID LILIA Administration Atorvastatin Calcium 10 mg 03/01/18 22:00 03/01/18 21:58 Lipitor - GT 10 mg HS LILIA Administration Collagenase 1 applic 03/02/18 10:00 Santyl - TP DAILY LILIA Diltiazem HCl 10 mg 03/01/18 15:42 03/02/18 01:50 Cardizem Injection - IVPUSH 10 mg Q6H PRN Administration TACHYCARDIA Docusate Sodium 100 mg 03/01/18 15:42 Colace Liquid - PO DAILY PRN CONSTIPATION Ferrous Sulfate 300 mg 03/02/18 10:00 Feosol GT DAILY LILIA Insulin Aspart 1 vial 03/01/18 16:30 03/02/18 06:32 Novolog Vial Sliding Scale - SQ 2 units ACHS LILIA Administration Protocol Insulin Detemir 16 units 03/01/18 22:00 03/01/18 21:59 Levemir Vial SQ 16 unit HS LILIA Administration Levothyroxine Sodium 37.5 mcg 03/02/18 07:00 03/02/18 06:31 Synthroid - PEG 37.5 mcg DAILY@0700 LILIA Administration Metoprolol Tartrate 12.5 mg 03/01/18 22:00 03/01/18 21:59 Lopressor - GT 12.5 mg BID LILIA Administration Mupirocin 1 applic 03/01/18 22:00 03/01/18 21:57 Bactroban Ointment (For Decolonization) - NS 03/06/18 21:59 1 applic BID LILIA Administration Non-Formulary Medication 1 each 03/02/18 10:00 Non-Formulary Med GT DAILY LILIA Nystatin 1 applic 03/01/18 22:00 03/01/18 22:00 Nystop Powder - TP 1 applic BID LILIA Administration Oxybutynin Chloride 5 mg 03/01/18 22:00 03/01/18 21:58 Ditropan - NGT 5 mg BID LILIA Administration Pantoprazole Sodium 40 mg 03/02/18 10:00 Protonix Packets For Oral Suspension - NGT DAILY LILIA Sertraline HCl 25 mg 03/02/18 10:00 Zoloft - PO DAILY LILIA Tamsulosin HCl 0.4 mg 03/02/18 08:30 Flomax - PO DAILY@0830 LILIA Trimethoprim/Sulfamethoxazole 40 mg 03/02/18 10:00 Bactrim Oral Suspension - GT DAILY [facility] ASSESSMENT/PLAN: Pt is an 87 y/o M with PMH significant for 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 Pt is admitted to Med-Surg. #Afib -Pt alternates between fast and slow Afib. rate varies between 50 and 150 -Has been treated previously with Lopressor PRN. -Cardizem stopped -Lopressor increased to 25mg BID -Cardio on board #Abdominal distension -intermittent large volume stools reported -abdomen soft, distended, tympanic -NPO -2nd CTAP neg for volvulus #GIB: likely Resolved -fobt pos -anemia -counts were dropping despite prbcs and epo -GI consulted -gastric lavage with pink/red fluid -Pt had a scope sig for bleeding AVM -Discussed with GI -G-tube feeds held temporarily over the weekend. Currently running -Pt had black bm this am. Likely old blood. #Acute on chronic resp failure -likely 2/2 aspiration PNA -at baseline vent settings: AC Tv 450, RR 14, FiO2 28, PEEP 5 -Initially on Medrol 40. d/c'ed -Prednisone 40 -Pulm on board: poor weaning candidate #Asp PNA -ID on board -Sputum culture pos for P aerug. Pseudo fluorescens -Zosyn , Bactrim #Anemia -was transfused 7 PRBCs total -Hb stable last 2 days -Given Epo (02/20/2018) -Heme on board: will give weekly Epo -No obvious active bleed -per son, had negative colonoscopy 2 years ago #Acute on CKD - Custodial Aide stabilized - BUN up-trending -? etiology. ?steroids vs GIB (most likely) vs dehydration (likely component) -Nepro on board: prerenal. Adjusted fluids #Hypernatremia -fluids modified by nephro -Nephro input appreciated #Hypokalemia: resolved -Fluids monitored and adjusted by nephro #Thrombophilia - Resolved -plt wnl #DM -Levemir was increased -ISS -glucose continues to be elevated in 150s -titrate Insulin #TBI -s/p trach and PEG -secondary paraplegia #Hypothyroid -c/w synthroid #Incontinence -christopher -flomax -oxybutinin #depression -zoloft #FEN -not on fluids -lytes wnl -Nutrition: via G-tube. flushes #PPx -held in setting of possible bleed #Dispo -med surg Elia Prieto MD PGY-1 IM Visit type - Emergency Visit Emergency Visit: No - New Patient This patient is new to me today: Yes Date on this admission: 03/02/18 - Critical Care Critical Care patient: No - Discharge Referral Referred to [facility] Med P.C.: No
[2018-03-02 06:49] LABS: ALK PHOS 95 U/L (45-117); BILIRUBIN,TOTAL 0.3 mg/dL (0.2-1.0); TOT PROT 5.5 g/dl (6.4-8.2)
[2018-03-02] MEDS: TAMSULOSIN HCL 0.4 MG CAP.ER.24H (FP) PO SCH (08:08)
[2018-03-02] MEDS ORDERED: PT OWN MED DRAWER 7, Y5N ONE (08:58)
[2018-03-02] MEDS ORDERED: SERTRALINE HCL 25 MG TABLET (FP) PO SCH (10:00)
[2018-03-02] MEDS: FERROUS SO4 300 MG/5 ML ORAL SOLN UNIT DOSE CUPS GT SCH (10:41)
[2018-03-02] MEDS: SULFAMETHOXAZOLE/TMP 200MG-40MG/5ML GT SCH (10:42)
[2018-03-02] MEDS: OXYBUTYNIN CHLORIDE 5 MG TABLET NGT SCH ×2 (10:43→21:55)
[2018-03-02] MEDS: PANTOPRAZOLE SOD 40 MG SUSPENSION PACKET NGT SCH (10:45)
[2018-03-02] MEDS: MUPIROCIN 2% TOPICAL OINTMENT FOR DECOLONIZATION NS SCH ×2 (10:47→21:55)
[2018-03-02] MEDS: ARTIFICIAL TEARS (POLYVINYL ALCOHOL 1.4%) OPTH DROPS OU SCH ×2 (10:53→21:55)
[2018-03-02] MEDS: NYSTATIN POWDER 100,000 UNITS/GM - 15 GM TOPICAL POWDER TP SCH ×2 (10:54→21:56)
[2018-03-02] MEDS: COLLAGENASE CLOSTRIDIUM HIST. 30 GRAMS TUBE TP SCH (10:55)
[2018-03-02] MEDS: NON-FORMULARY MED GT SCH (10:56)
[2018-03-02] MEDS: METOPROLOL TARTRATE 25 MG TABLET (FP) GT SCH (12:19)
--- NOTE | 2018-03-02 12:34 | PN ---
Teaching Attending Note Name of Resident: Peter Dejesus ATTENDING PHYSICIAN STATEMENT I saw and evaluated the patient. I reviewed the resident's note and discussed the case with the resident. I agree with the resident's findings and plan as documented. SUBJECTIVE: Pt seen and examined in the ICU. Remains vented, poorly responsive. Diarrhea now , no bleeding noted. OBJECTIVE: Vital Signs Period Temp Pulse Resp BP Sys/Wills Pulse Ox Last 24 Hr 97.5 F-98.9 F 95-139 14-24 98-140/54-95 98-100 Intake & Output 02/27/18 02/28/18 03/01/18 03/02/18 23:59 23:59 23:59 23:59 Intake Total 3147.5 1780 2100 1400 Output Total 1200 1500 900 450 Balance 1947.5 280 1200 950 Weight 65.799 kg 65.969 kg 66.848 kg 66.848 kg Gen: vented, poorly responsive Heart: irregular Lung: decreased breath sounds at the bases Abd: softly distended, nontender Ext: no edema CBC, BMP 03/02/18 05:30 03/02/18 05:30 Active Medications Acetaminophen (Tylenol -) 650 mg PO Q4H PRN PRN Reason: FEVER Artificial Tears (Artificial Tears) 2 drop OU BID [facility] Last Admin: 03/02/18 10:53 Dose: 2 drop Atorvastatin Calcium (Lipitor -) 10 mg GT HS [facility] Last Admin: 03/01/18 21:58 Dose: 10 mg Collagenase (Santyl -) 1 applic TP DAILY [facility] Last Admin: 03/02/18 10:55 Dose: 1 applic Diltiazem HCl (Cardizem Injection -) 10 mg IVPUSH Q6H PRN PRN Reason: TACHYCARDIA Last Admin: 03/02/18 09:45 Dose: 10 mg Docusate Sodium (Colace Liquid -) 100 mg PO DAILY PRN PRN Reason: CONSTIPATION Ferrous Sulfate (Feosol) 300 mg GT DAILY [facility] Last Admin: 03/02/18 10:41 Dose: 300 mg Insulin Aspart (Novolog Vial Sliding Scale -) 1 vial SQ [facility]; Protocol Last Admin: 03/02/18 06:32 Dose: 2 units Insulin Detemir (Levemir Vial) 16 units SQ [facility] Last Admin: 03/01/18 21:59 Dose: 16 unit Levothyroxine Sodium (Synthroid -) 37.5 mcg PEG DAILY@0700 [facility] Last Admin: 03/02/18 06:31 Dose: 37.5 mcg Metoprolol Tartrate (Lopressor -) 12.5 mg PO ONCE ONE Stop: 03/02/18 12:28 Metoprolol Tartrate (Lopressor -) 25 mg PO BID [facility] Mupirocin (Bactroban Ointment (For Decolonization) -) 1 applic NS BID [facility] Stop: 03/06/18 21:59 Last Admin: 03/02/18 10:47 Dose: 1 applic Non-Formulary Medication (Non-Formulary Med) 1 each GT DAILY [facility] Last Admin: 03/02/18 10:56 Dose: 1 each Nystatin (Nystop Powder -) 1 applic TP BID [facility] Last Admin: 03/02/18 10:54 Dose: 1 applic Oxybutynin Chloride (Ditropan -) 5 mg NGT BID [facility] Last Admin: 03/02/18 10:43 Dose: 5 mg Pantoprazole Sodium (Protonix Packets For Oral Suspension -) 40 mg NGT DAILY [facility] Last Admin: 03/02/18 10:45 Dose: 40 mg Senna (Senna Oral Solution -) 8.8 mg GT HS [facility] Sertraline HCl (Zoloft -) 25 mg PO DAILY [facility] Last Admin: 03/02/18 10:56 Dose: 25 mg Tamsulosin HCl (Flomax -) 0.4 mg PO DAILY@0830 [facility] Last Admin: 03/02/18 08:08 Dose: 0.4 mg Trimethoprim/Sulfamethoxazole (Bactrim Oral Suspension -) 40 mg GT DAILY [facility] Last Admin: 03/02/18 10:42 Dose: 40 mg ASSESSMENT AND PLAN: GI Bleed/Gastric Dieulafoy Lesion s/p EGD/epi/cautery Acute Blood Loss Anemia Chronic Respiratory Failure Pneumonia h/o Traumatic Brain Injury Functional Quadriplegia Acute on Chronic Renal Failure Atrial Fibrillation DM Dementia - monitor H/H - protonix - antibiotics per ID - rate control - holding anticoagulation - continue volume assist control - poor candidate for weaning due to poor mental status - replete free water - enteral feeds as tolerated - DVT/GI prophylaxis - can monitor on vent floor
[2018-03-02] MEDS ORDERED: METOPROLOL TARTRATE 25 MG TABLET (FP) PO ONE (12:45)
--- NOTE | 2018-03-02 13:20 | PN ---
Physical Exam: SUBJECTIVE: Patient seen and examined at bed side in ICU No acute events over night H/H stable , had 2 BM, passing gases , abdomen less distended completed course of 14 days Zosin , will resume another 9 days of Bactrim , no fever no chills, no N/V. had a run of AFIb over night and was given 10 cardezim, Dr Aguirre increase his metoprolol to 25 mg BID OBJECTIVE: Vital Signs Period Temp Pulse Resp BP Sys/Wills Pulse Ox Last 24 Hr 97.5 F-98.9 F 95-139 14-24 98-140/54-95 98-100 GENERAL: non verbal , respond to verbal stimuli HEAD: Normal with no signs of trauma. EYES: PERRLA, NECK: Tracheostomy in place , supple. LUNGS: decreased breath sounds at the bases , no wheezes HEART: Regular rate and rhythm, S1, S2 without murmur, rub or gallop. ABDOMEN: Soft, nontender, nondistended, normoactive bowel sounds, no guarding, no rebound, EXTREMITIES: 2+ pulses, warm, no edema NEUROLOGICAL: non verbal , unable to assess Laboratory Results - last 24 hr 03/01/18 03/01/18 03/01/18 09:02 12:38 18:15 WBC RBC Hgb Hct MCV MCH MCHC RDW Plt Count MPV Absolute Neuts (auto) Neutrophils % Lymphocytes % Monocytes % Eosinophils % Basophils % Nucleated RBC % Sodium Potassium Chloride Carbon Dioxide Anion Gap BUN Creatinine Creat Clearance w eGFR POC Glucometer 68.72670 98.77147 89.76154 Random Glucose Calcium Phosphorus Magnesium Total Bilirubin AST ALT Alkaline Phosphatase Total Protein Albumin 03/01/18 03/02/18 03/02/18 21:55 05:30 05:30 WBC 9.0 RBC 2.97 L Hgb 9.1 L Hct 27.5 L MCV 92.7 MCH 30.8 MCHC 33.2 RDW 22.1 H Plt Count 137 MPV 10.2 Absolute Neuts (auto) 7.8 Neutrophils % 87.2 H Lymphocytes % 6.2 L D Monocytes % 4.9 Eosinophils % 1.3 Basophils % 0.4 Nucleated RBC % 0 Sodium 145 Potassium 4.1 Chloride 115 H Carbon Dioxide 21 Anion Gap 9 BUN 86 H Creatinine 1.9 H Creat Clearance w eGFR 33.86 POC Glucometer [phone] Random Glucose 159 H D Calcium 7.5 L Phosphorus 3.8 Magnesium 2.0 Total Bilirubin 0.3 AST 37 D ALT 43 Alkaline Phosphatase 95 D Total Protein 5.5 L Albumin 2.0 L 03/02/18 05:46 WBC RBC Hgb Hct MCV MCH MCHC RDW Plt Count MPV Absolute Neuts (auto) Neutrophils % Lymphocytes % Monocytes % Eosinophils % Basophils % Nucleated RBC % Sodium Potassium Chloride Carbon Dioxide Anion Gap BUN Creatinine Creat Clearance w eGFR POC Glucometer [phone] Random Glucose Calcium Phosphorus Magnesium Total Bilirubin AST ALT Alkaline Phosphatase Total Protein Albumin Active Medications Generic Name Dose Route Start Last Admin Trade Name Freq PRN Reason Stop Dose Admin Acetaminophen 650 mg 03/01/18 15:42 Tylenol - PO Q4H PRN FEVER Artificial Tears 2 drop 03/01/18 22:00 03/02/18 10:53 Artificial Tears OU 2 drop BID LILIA Administration Atorvastatin Calcium 10 mg 03/01/18 22:00 03/01/18 21:58 Lipitor - GT 10 mg HS LILIA Administration Collagenase 1 applic 03/02/18 10:00 03/02/18 10:55 Santyl - TP 1 applic DAILY LILIA Administration Diltiazem HCl 10 mg 03/01/18 15:42 03/02/18 09:45 Cardizem Injection - IVPUSH 10 mg Q6H PRN Administration TACHYCARDIA Docusate Sodium 100 mg 03/01/18 15:42 Colace Liquid - PO DAILY PRN CONSTIPATION Ferrous Sulfate 300 mg 03/02/18 10:00 03/02/18 10:41 Feosol GT 300 mg DAILY LILIA Administration Insulin Aspart 1 vial 03/01/18 16:30 03/02/18 12:20 Novolog Vial Sliding Scale - SQ 8 units ACHS LILIA Administration Protocol Insulin Detemir 16 units 03/01/18 22:00 03/01/18 21:59 Levemir Vial SQ 16 unit HS LILAI Administration Levothyroxine Sodium 37.5 mcg 03/02/18 07:00 03/02/18 06:31 Synthroid - PEG 37.5 mcg DAILY@0700 LILIA Administration Metoprolol Tartrate 25 mg 03/02/18 22:00 Lopressor - PO BID LILIA Mupirocin 1 applic 03/01/18 22:00 03/02/18 10:47 Bactroban Ointment (For Decolonization) - NS 03/06/18 21:59 1 applic BID LILIA Administration Non-Formulary Medication 1 each 03/02/18 10:00 03/02/18 10:56 Non-Formulary Med GT 1 each DAILY LILIA Administration Nystatin 1 applic 03/01/18 22:00 03/02/18 10:54 Nystop Powder - TP 1 applic BID LILIA Administration Oxybutynin Chloride 5 mg 03/01/18 22:00 03/02/18 10:43 Ditropan - NGT 5 mg BID LILIA Administration Pantoprazole Sodium 40 mg 03/02/18 10:00 03/02/18 10:45 Protonix Packets For Oral Suspension - NGT 40 mg DAILY LILIA Administration Senna 8.8 mg 03/02/18 22:00 Senna Oral Solution - GT HS LILIA Sertraline HCl 25 mg 03/02/18 10:00 03/02/18 10:56 Zoloft - PO 25 mg DAILY LILIA Administration Tamsulosin HCl 0.4 mg 03/02/18 08:30 03/02/18 08:08 Flomax - PO 0.4 mg DAILY@0830 LILIA Administration Trimethoprim/Sulfamethoxazole 40 mg 03/02/18 10:00 03/02/18 10:42 Bactrim Oral Suspension - GT 40 mg DAILY LILIA Administration CBC, BMP 03/02/18 05:30 03/02/18 05:30 ASSESSMENT/PLAN: 87 y/o M with PMH significant for 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 Neuro: * Nonverbal , respond to verbal stimuli , open his eyes , * Pain control * continue cindy meds zoloft CV: -DCHF: in no acute exacerbation , no volume over loaded - Afib * off CArdezim drip * discussed with Dr. Sorto. Pt has preserved LV EF and normal LV size. increased Lopressor 25 mg BID, Pulm: * Possible aspirations PNA- (+) sputum cultures pseudomonas * aspiration precautions. * trachea and vented. AC settings RR 14, TV 450, PEEP 5 * Maintain SpO2>90% * poor weaning candidate due to mental status * cont abx bactrim for another 9 days , zosyn has been completed . GI: * UGIB s/p EGD and thermal coagulation. * has 2 BM with old black stool * resume tube feeding * cont meds through G tube * PPI BID * monitor H/H now and in AM * transfuse as needed to keep HGb > 8 * PEG in place ID: * aspirations PNA with (+) Pseudomonas * Zosyn day 15 completed * Afebrile and WBC 11.5 ...13.2...8.2..9 * blood CX negative , * repeat CBC, in AM Heme * Anemia 2/2 UGIB * S/P 7 PRBCS total * Epogen weekly * Monitor H/H * no active bleeding * Transfuse as needed to keep Hgb>8 Renal: * KATERIN on CKD , BUN /Cr 167/2.5 likely due to volume loss and upper GI bleed * Hypernatremia 145 corrected * Continue to monitor renal function. * IV fluids with caution * Hydration through the G tube once it is usable. * Nephrology consult appreciated. ENDO: * IDDM an hypothyroidism * decrease levemir to 16 due to hypoglycemia * Synthroid IV 37.5 PEG daily * ISS held as patient is NPO * resume feeding through G tube FEN: * F: no standing fluids * hypokalemia, resolved and hypernatremia resolved ; repeat BMP in AM * N: resume tube feeding Dispo:transfer to [facility]- surg total critical time 45 min Visit type - Emergency Visit Emergency Visit: Yes ED Registration Date: 02/17/18 Care time: The patient presented to the Emergency Department on the above date and was hospitalized for further evaluation of their emergent condition. - New Patient This patient is new to me today: No - Critical Care Critical Care patient: Yes Total Critical Care Time (in minutes): 45 Critical Care Statement: The care of this patient involved high complexity decision making to prevent further life threatening deterioration of the patient 's condition and/or to evaluate & treat vital organ system(s) failure or risk of failure.
--- NOTE | 2018-03-02 16:52 | PN ---
Teaching Attending Note Name of Resident: Elia Prieto ATTENDING PHYSICIAN STATEMENT I saw and evaluated the patient. I reviewed the resident's note and discussed the case with the resident. I agree with the resident's findings and plan as documented. SUBJECTIVE:resting comfortable OBJECTIVE: Last Vital Signs Temp Pulse Resp BP Pulse Ox 98.8 F 121 H 20 138/95 100 03/02/18 06:00 03/02/18 08:28 03/02/18 15:35 03/02/18 08:00 03/02/18 08:28 General NAD spontaneous eye opening CV S1 S2 RRR no murmur/rub/gallop Lungs Coarse breath sounds anteriorly Abdomen soft. NT/ND +PEG no bleeding noted around PEG hyperactive BS Extremities no pedal edema. 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 Admitted on 02/17/18 from [facility] chronic respiratory failure and severe anemia with a hg of 5.5 and hypotension. 1. Acute on chronic respiratory failure- due to aspiration PNA. now improved. has returned to baseline vent settings. not weanable. off steroids. pulmonary on board 2. Aspiration PNA-completed extended course of zosyn., now on bactrim day 6. will need 2 week course. ID on board 3. distended abdomen-CT done and negative for volvulus. rectal tube placed with air escape noted. Gi on board. serial abdominal exams. 4. Multifactorial anemia with Upper GI bleed- s/p EGD with Diluefoy lesion s/p heat probe and epi. s/p 10 units PRBC this hospital stay. Hgb stable. still having intermittent melena. should improve with wime. monitor Hgb. no indication for transfusion. hematology on board. on iron supplementation 5. Acute on CKD- hypoperfusion. now trending down. elevated BUN likely due to GI bleed. now off steroids. cont to monitor. nephro on board 6. new onset afib- rate uncontrolled. increase metoprolol. not a candidate for anticoagulation iwth recent GI bleed. echo reviewed. cardio on board 7. Hypernatremia- resolved. cont water flushes. monitor 8. Thrombophilia-stable. off medications 9. DM-improved cont levemir. cont iss. titrate as needed to optimize control 10. TBI- s/p trach and PEG 11. 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 12. legally blind and deaf 13. hypothyroid- on Lt4 14. urinary incontinence- with chronic indwelling christopher. cont oxybutin/flomax 15. depression- on zoloft 16. DVT ppx- SCD. would hold pharmacologic anticoagulation wwith recent GI bleed 17. MICU monitoring The care of this patient involved high complexity decision making to prevent further life threatening deterioration of the patient's condition and/or to evaluate & treat vital organ system(s) failure or risk of failure. 40 minutes
--- NOTE | 2018-03-02 16:55 | PN ---
Progress Note, Physician History of Present Illness: events noted from last night patient had run of afib no new issues remaining stable - Current Medication List Current Medications: Active Medications Acetaminophen (Tylenol -) 650 mg PO Q4H PRN PRN Reason: FEVER Artificial Tears (Artificial Tears) 2 drop OU BID [facility] Last Admin: 03/02/18 10:53 Dose: 2 drop Atorvastatin Calcium (Lipitor -) 10 mg GT HS [facility] Last Admin: 03/01/18 21:58 Dose: 10 mg Collagenase (Santyl -) 1 applic TP DAILY [facility] Last Admin: 03/02/18 10:55 Dose: 1 applic Diltiazem HCl (Cardizem Injection -) 10 mg IVPUSH Q6H PRN PRN Reason: TACHYCARDIA Last Admin: 03/02/18 09:45 Dose: 10 mg Docusate Sodium (Colace Liquid -) 100 mg PO DAILY PRN PRN Reason: CONSTIPATION Ferrous Sulfate (Feosol) 300 mg GT DAILY [facility] Last Admin: 03/02/18 10:41 Dose: 300 mg Insulin Aspart (Novolog Vial Sliding Scale -) 1 vial SQ [facility]; Protocol Last Admin: 03/02/18 12:20 Dose: 8 units Insulin Detemir (Levemir Vial) 16 units SQ [facility] Last Admin: 03/01/18 21:59 Dose: 16 unit Levothyroxine Sodium (Synthroid -) 37.5 mcg PEG DAILY@0700 [facility] Last Admin: 03/02/18 06:31 Dose: 37.5 mcg Metoprolol Tartrate (Lopressor -) 25 mg PO BID [facility] Mupirocin (Bactroban Ointment (For Decolonization) -) 1 applic NS BID [facility] Stop: 03/06/18 21:59 Last Admin: 03/02/18 10:47 Dose: 1 applic Non-Formulary Medication (Non-Formulary Med) 1 each GT DAILY [facility] Last Admin: 03/02/18 10:56 Dose: 1 each Nystatin (Nystop Powder -) 1 applic TP BID [facility] Last Admin: 03/02/18 10:54 Dose: 1 applic Oxybutynin Chloride (Ditropan -) 5 mg NGT BID [facility] Last Admin: 03/02/18 10:43 Dose: 5 mg Pantoprazole Sodium (Protonix Packets For Oral Suspension -) 40 mg NGT DAILY [facility] Last Admin: 03/02/18 10:45 Dose: 40 mg Senna (Senna Oral Solution -) 8.8 mg GT HS [facility] Sertraline HCl (Zoloft -) 25 mg PO DAILY [facility] Last Admin: 03/02/18 10:56 Dose: 25 mg Simethicone (Mylicon Liquid -) 40 mg GT QID PRN PRN Reason: CONSTIPATION Tamsulosin HCl (Flomax -) 0.4 mg PO DAILY@0830 [facility] Last Admin: 03/02/18 08:08 Dose: 0.4 mg Trimethoprim/Sulfamethoxazole (Bactrim Oral Suspension -) 40 mg GT DAILY [facility] Last Admin: 03/02/18 10:42 Dose: 40 mg - Objective Vital Signs: Vital Signs Temperature 98.8 F 03/02/18 06:00 Pulse Rate 121 H 03/02/18 08:28 Respiratory Rate 20 03/02/18 15:35 Blood Pressure 138/95 03/02/18 08:00 O2 Sat by Pulse Oximetry (%) 100 03/02/18 08:28 Constitutional: Yes: No Distress, Calm Cardiovascular: Yes: Pulse Irregular Respiratory: Yes: Regular, Mechanically Ventilated, Poor Air Entry Gastrointestinal: Yes: Normal Bowel Sounds, Soft, Other (peg tube in place) Musculoskeletal: Yes: WNL Extremities: Yes: WNL Neurological: Yes: Alert Psychiatric: Yes: Other Labs: CBC, BMP 03/02/18 05:30 03/02/18 05:30 INR, PTT INR 1.13 (0.82-1.09) 02/16/18 22:40 Assessment/Plan Problem List - Problems (1) Anemia Code(s): D64.9 - ANEMIA, UNSPECIFIED (2) Chronic kidney disease, stage 3 Code(s): N18.3 - CHRONIC KIDNEY DISEASE, STAGE 3 (MODERATE) (3) Chronic respiratory failure Code(s): J96.10 - CHRONIC RESPIRATORY FAILURE, UNSP W HYPOXIA OR HYPERCAPNIA Qualifiers: Respiratory failure complication: unspecified whether with hypoxia or hypercapnia Qualified Code(s): J96.10 - Chronic respiratory failure, unspecified whether with hypoxia or hypercapnia (4) PAF (paroxysmal atrial fibrillation) Code(s): I48.0 - PAROXYSMAL ATRIAL FIBRILLATION (5) Renal failure Code(s): N19 - UNSPECIFIED KIDNEY FAILURE Qualifiers: Renal failure chronicity: unspecified chronicity Qualified Code(s): N19 - Unspecified kidney failure (6) Diabetes Code(s): E11.9 - TYPE 2 DIABETES MELLITUS WITHOUT COMPLICATIONS (7) TBI (traumatic brain injury) Code(s): S06.9X9A - UNSP INTRACRANIAL INJURY W LOC OF UNSP DURATION, INIT (8) [id number] kidney injury Code(s): N17.9 - ACUTE KIDNEY FAILURE, UNSPECIFIED; N18.9 - CHRONIC KIDNEY DISEASE, UNSPECIFIED (9) [id number] renal failure Code(s): N17.9 - ACUTE KIDNEY FAILURE, UNSPECIFIED; N18.9 - CHRONIC KIDNEY DISEASE, UNSPECIFIED (10) Hypotension Code(s): I95.9 - HYPOTENSION, UNSPECIFIED (11) Hypotension Code(s): I95.9 - HYPOTENSION, UNSPECIFIED 12 gi bleed 13 difuleoy lesion I plan continue bactrim secretions are less nutrition rest as per the team and icu cc time 40 min
--- NOTE | 2018-03-02 18:12 | PN ---
Progress Note (short form) - Note Progress Note: Renal Follow up for CKD/KATERIN Pt seen and examined in the ICU on vent via trach no overnight events good urine output Vital Signs Temperature 98.3 F 03/02/18 18:00 Pulse Rate 64 03/02/18 18:00 Respiratory Rate 19 03/02/18 18:00 Blood Pressure 124/63 03/02/18 18:00 O2 Sat by Pulse Oximetry (%) 100 03/02/18 09:00 Intake & Output 02/27/18 02/28/18 03/01/18 03/02/18 23:59 23:59 23:59 23:59 Intake Total 3147.5 1780 2100 2800 Output Total 1200 9554 773 5550 Balance 1947.5 280 1200 1550 Weight 65.799 kg 65.969 kg 66.848 kg 66.848 kg NAD RRR, No M/R Dec BS, no rales soft NT/ND + G tube in place NO LE edema CBC, BMP 03/02/18 05:30 03/02/18 05:30 Current Medications Acetaminophen (Tylenol -) 650 mg PO Q4H PRN PRN Reason: FEVER Artificial Tears (Artificial Tears) 2 drop OU BID [facility] Last Admin: 03/02/18 10:53 Dose: 2 drop Atorvastatin Calcium (Lipitor -) 10 mg GT HS [facility] Last Admin: 03/01/18 21:58 Dose: 10 mg Collagenase (Santyl -) 1 applic TP DAILY [facility] Last Admin: 03/02/18 10:55 Dose: 1 applic Diltiazem HCl (Cardizem Injection -) 10 mg IVPUSH Q6H PRN PRN Reason: TACHYCARDIA Last Admin: 03/02/18 09:45 Dose: 10 mg Docusate Sodium (Colace Liquid -) 100 mg PO DAILY PRN PRN Reason: CONSTIPATION Ferrous Sulfate (Feosol) 300 mg GT DAILY [facility] Last Admin: 03/02/18 10:41 Dose: 300 mg Insulin Aspart (Novolog Vial Sliding Scale -) 1 vial SQ [facility]; Protocol Last Admin: 03/02/18 18:00 Dose: 4 units Insulin Detemir (Levemir Vial) 16 units SQ HS [facility] Last Admin: 03/01/18 21:59 Dose: 16 unit Levothyroxine Sodium (Synthroid -) 37.5 mcg PEG DAILY@0700 [facility] Last Admin: 03/02/18 06:31 Dose: 37.5 mcg Metoprolol Tartrate (Lopressor -) 25 mg PO BID [facility] Mupirocin (Bactroban Ointment (For Decolonization) -) 1 applic NS BID [facility] Stop: 03/06/18 21:59 Last Admin: 03/02/18 10:47 Dose: 1 applic Non-Formulary Medication (Non-Formulary Med) 1 each GT DAILY [facility] Last Admin: 03/02/18 10:56 Dose: 1 each Nystatin (Nystop Powder -) 1 applic TP BID [facility] Last Admin: 03/02/18 10:54 Dose: 1 applic Oxybutynin Chloride (Ditropan -) 5 mg NGT BID [facility] Last Admin: 03/02/18 10:43 Dose: 5 mg Pantoprazole Sodium (Protonix Packets For Oral Suspension -) 40 mg NGT DAILY [facility] Last Admin: 03/02/18 10:45 Dose: 40 mg Senna (Senna Oral Solution -) 8.8 mg GT HS [facility] Sertraline HCl (Zoloft -) 25 mg PO DAILY [facility] Last Admin: 03/02/18 10:56 Dose: 25 mg Simethicone (Mylicon Liquid -) 40 mg GT QID PRN PRN Reason: CONSTIPATION Tamsulosin HCl (Flomax -) 0.4 mg PO DAILY@0830 [facility] Last Admin: 03/02/18 08:08 Dose: 0.4 mg Trimethoprim/Sulfamethoxazole (Bactrim Oral Suspension -) 40 mg GT DAILY [facility] Last Admin: 03/02/18 10:42 Dose: 40 mg 87 year old man with a significant past medical history of 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 #CKD Stage 3 with higher then baseline BUN/Cr #GI bleed #Anemia #Hypokalemia #Hypernatremia Cr improved to near baseline BUN improving, very high levels due to GI bleed continue feeds via G tube with free water Trend renal functoin and electrolytes Frank Ayoub DO
[2018-03-02] MEDS: ATORVASTATIN CA 10 MG TABLET (FP) GT SCH (21:55)
[2018-03-02] MEDS: METOPROLOL TARTRATE 25 MG TABLET (FP) PO SCH (21:55)
[2018-03-02] MEDS: INSULIN (LEVEMIR) 100 UNITS/ML UNITS SQ SCH (21:56)
[2018-03-02] MEDS: SENNOSIDES 8.8 MG/5 ML BULK BOTTLE GT SCH (21:57)
--- NOTE | 2018-03-03 05:36 | PN ---
Progress Note, Physician Chief Complaint: Pt on ventilator/trached; eyes open, but does not appear to follow movement; moves feet and hands spontaneously. History of Present Illness: The patient is an 87 year old white male, with a significant past medical history of traumatic fall (s/p neck (C4,5, and 6)/back surgery, tracheotomy placement now ventilator dependent, and PEG tube placement), frequent pneumonia , emphysema, A-fib, diastolic CHF, DM, dementia, renal failure, nonverbal TBI, paraplegic, legally blind and deaf, who presents to the emergency department via EMS from [facility] with, 3 days of hypotension. Now transferred to ICU after being found to have bright red blood on gastric tube lavage that led to PRBCs and heater probe coagulation. Allergies: NKA Social History: Former smoker (Quit 35 years ago). Denies EtOH use and recreational drug use. - Current Medication List Current Medications: Active Medications Acetaminophen (Tylenol -) 650 mg PO Q4H PRN PRN Reason: FEVER Artificial Tears (Artificial Tears) 2 drop OU BID [facility] Last Admin: 03/02/18 21:55 Dose: 2 drop Atorvastatin Calcium (Lipitor -) 10 mg GT HS [facility] Last Admin: 03/02/18 21:55 Dose: 10 mg Collagenase (Santyl -) 1 applic TP DAILY [facility] Last Admin: 03/02/18 10:55 Dose: 1 applic Diltiazem HCl (Cardizem Injection -) 10 mg IVPUSH Q6H PRN PRN Reason: TACHYCARDIA Last Admin: 03/02/18 09:45 Dose: 10 mg Docusate Sodium (Colace Liquid -) 100 mg PO DAILY PRN PRN Reason: CONSTIPATION Ferrous Sulfate (Feosol) 300 mg GT DAILY [facility] Last Admin: 03/02/18 10:41 Dose: 300 mg Insulin Aspart (Novolog Vial Sliding Scale -) [address] [facility]; Protocol Last Admin: 03/02/18 21:56 Dose: Not Given Insulin Detemir (Levemir Vial) 16 units SQ [facility] Last Admin: 03/02/18 21:56 Dose: Not Given Levothyroxine Sodium (Synthroid -) 37.5 mcg PEG DAILY@0700 [facility] Last Admin: 03/02/18 06:31 Dose: 37.5 mcg Metoprolol Tartrate (Lopressor -) 25 mg PO BID [facility] Last Admin: 03/02/18 21:55 Dose: 25 mg Mupirocin (Bactroban Ointment (For Decolonization) -) 1 applic NS BID [facility] Stop: 03/06/18 21:59 Last Admin: 03/02/18 21:55 Dose: 1 applic Non-Formulary Medication (Non-Formulary Med) 1 each GT DAILY [facility] Last Admin: 03/02/18 10:56 Dose: 1 each Nystatin (Nystop Powder -) 1 applic TP BID [facility] Last Admin: 03/02/18 21:56 Dose: 1 applic Oxybutynin Chloride (Ditropan -) 5 mg NGT BID [facility] Last Admin: 03/02/18 21:55 Dose: 5 mg Pantoprazole Sodium (Protonix Packets For Oral Suspension -) 40 mg NGT DAILY [facility] Last Admin: 03/02/18 10:45 Dose: 40 mg Senna (Senna Oral Solution -) 8.8 mg GT HS [facility] Last Admin: 03/02/18 21:57 Dose: 8.8 mg Sertraline HCl (Zoloft -) 50 mg PO DAILY [facility] Simethicone (Mylicon Liquid -) 40 mg GT QID PRN PRN Reason: CONSTIPATION Tamsulosin HCl (Flomax -) 0.4 mg PO DAILY@0830 [facility] Last Admin: 03/02/18 08:08 Dose: 0.4 mg Trimethoprim/Sulfamethoxazole (Bactrim Oral Suspension -) 40 mg GT DAILY [facility] Last Admin: 03/02/18 10:42 Dose: 40 mg - Objective Vital Signs: Vital Signs Temperature 98.3 F 03/02/18 18:00 Pulse Rate 75 03/02/18 21:45 Respiratory Rate 14 03/03/18 02:30 Blood Pressure 130/60 03/02/18 21:45 O2 Sat by Pulse Oximetry (%) 98 03/02/18 21:00 Constitutional: Yes: Thin, Other Eyes: Yes: Conjunctiva Clear HENT: No: Epistaxis (though hx of prior episode) Neck: Yes: Decreased ROM Cardiovascular: Yes: Regular Rate and Rhythm Respiratory: Yes: Diminished, Mechanically Ventilated Gastrointestinal: Yes: Soft ...Rectal Exam: Yes: Guaiac Negative Genitourinary: No: Anuria Musculoskeletal: Yes: Muscle Weakness Extremities: Yes: Cool Edema: No Peripheral Pulses WNL: Yes Integumentary: Yes: WNL Neurological: Yes: Weakness Psychiatric: Yes: Other (hx dementia) Labs: CBC, BMP 03/02/18 05:30 03/02/18 05:30 INR, PTT INR 1.13 (0.82-1.09) 02/16/18 22:40 - ....Imaging Chest X-ray: Image Reviewed (no significant change (bibasilar congestion)) Other: Image Reviewed (telemetry: NSR; periods of AF with RVR; no significant bradycardia) Problem List - Problems (1) Anemia Assessment/Plan: s/p EGD, cauterization, and PRBCs. Hb stable (9.1 today). Maintain hydration. F/u BUn/Cr Code(s): D64.9 - ANEMIA, UNSPECIFIED Qualifiers: Anemia type: due to chronic kidney disease Chronic kidney disease stage: unspecified stage Qualified Code(s): N18.9 - Chronic kidney disease, unspecified; D63.1 - Anemia in chronic kidney disease (2) Chronic kidney disease, stage 3 Assessment/Plan: f/u with rib matcher and fitter; Improving BUN/Cr since GI cauterization. Code(s): N18.3 - CHRONIC KIDNEY DISEASE, STAGE 3 (MODERATE) (3) Chronic respiratory failure Assessment/Plan: Ventilator dependent; on trach. On Assist control. Code(s): J96.10 - CHRONIC RESPIRATORY FAILURE, UNSP W HYPOXIA OR HYPERCAPNIA Qualifiers: Respiratory failure complication: unspecified whether with hypoxia or hypercapnia Qualified Code(s): J96.10 - Chronic respiratory failure, unspecified whether with hypoxia or hypercapnia (4) Hematuria Code(s): R31.9 - HEMATURIA, UNSPECIFIED (5) PAF (paroxysmal atrial fibrillation) Assessment/Plan: EKG 02/23/18: AF with RVR (HR 150 bpm); now has HR in 80s bpm. Increase metoprolol to 25 mg bid (pt has required occasional IV diltiazem for rapid VR); f/u HR and BP. If pt becomes profoundly bradycardia, will have to consider PPM. anticoagulation held due to GI bleed. TSH 3.59 recently. Code(s): I48.0 - PAROXYSMAL ATRIAL FIBRILLATION (6) S/P percutaneous endoscopic gastrostomy (PEG) tube placement Assessment/Plan: site appears intact Code(s): Z93.1 - GASTROSTOMY STATUS (7) Acute on chronic diastolic CHF (congestive heart failure) Code(s): I50.33 - ACUTE ON CHRONIC DIASTOLIC (CONGESTIVE) HEART FAILURE (8) Sinus bradycardia Code(s): R00.1 - BRADYCARDIA, UNSPECIFIED (9) TBI (traumatic brain injury) Code(s): S06.9X9A - UNSP INTRACRANIAL INJURY W LOC OF UNSP DURATION, INIT Qualifiers: Encounter type: sequela Loss of consciousness presence/duration: with LOC of unspecified duration Qualified Code(s): S06.9X9S - Unspecified intracranial injury with loss of consciousness of unspecified duration, sequela (10) Severe mitral regurgitation Code(s): I34.0 - NONRHEUMATIC MITRAL (VALVE) INSUFFICIENCY (11) Hypokalemia Assessment/Plan: Keep K+ 4-4.5 (4.1 today). F/u Mg, and keep 2-2.3 Keep PO4 2.5-3.5 Code(s): E87.6 - HYPOKALEMIA (12) Hypoalbuminemia Code(s): E88.09 - [facility] DISORDERS OF PLASMA-PROTEIN METABOLISM, NEC Assessment/Plan CCU time spent: 30 minutes
[2018-03-03] MEDS: INSULIN SLIDING SCALE (NOVOLOG) 1 VIAL SQ SCH ×4 (06:39→22:14)
[2018-03-03] MEDS: LEVOTHYROXINE NA 25 MCG TABLET (FP) PEG SCH (06:39)
[2018-03-03 08:00] LABS: BASO % 0.3 % (0-2.0); EOS % 1.8 % (0-4.5); HEMATOCRIT 24.1 % (35.4-49); LYMPH % 10.3 % (8-40); MCH 30.8 pg (25.7-33.7); MCHC 33.2 g/dl (32.0-35.9); MEAN CELL VOLUME 92.7 fl (80-96); MEAN PLT VOLUME 10.2 fl (7.5-11.1); MONO % 4.5 % (3.8-10.2); NEUT % 83.1 % (42.8-82.8); PLATELET COUNT 139 K/MM3 (134-434); RDW 22.9 % (11.9-15.9); WHITE BLOOD COUNT 7.8 K/mm3 (4.0-10.0)
[2018-03-03 08:18] LABS: CHLORIDE 113 mmol/L (98-107); POTASSIUM 4.8 mmol/L (3.5-5.1); SODIUM 143 mmol/L (136-145)
[2018-03-03 08:32] LABS: ALK PHOS 144 U/L (45-117); ANION GAP 8 (8-16); BILIRUBIN,TOTAL 0.3 mg/dL (0.2-1.0); BLOOD UREA NITROGEN 86 mg/dL (7-18); CALCIUM 7.3 mg/dL (8.5-10.1); CO2 22 mmol/L (21-32); CREATININE 1.8 mg/dL (0.7-1.3); GLUCOSE,RANDOM 177 mg/dL (74-106); SGOT/AST 43 U/L (15-37); SGPT/ALT 57 U/L (12-78); TOT PROT 5.3 g/dl (6.4-8.2)
[2018-03-03] MEDS ORDERED: PT OWN MED DRAWER 7, Y5N ONE ×2 (09:18→22:21)
[2018-03-03] MEDS: SERTRALINE HCL 25 MG TABLET (FP) PO SCH (09:19)
[2018-03-03] MEDS: METOPROLOL TARTRATE 25 MG TABLET (FP) PO SCH ×2 (09:19→22:22)
[2018-03-03] MEDS: TAMSULOSIN HCL 0.4 MG CAP.ER.24H (FP) PO SCH (09:20)
[2018-03-03] MEDS: OXYBUTYNIN CHLORIDE 5 MG TABLET NGT SCH ×2 (09:20→22:22)
[2018-03-03] MEDS: PANTOPRAZOLE SOD 40 MG SUSPENSION PACKET NGT SCH (09:20)
[2018-03-03] MEDS: NYSTATIN POWDER 100,000 UNITS/GM - 15 GM TOPICAL POWDER TP SCH ×2 (09:20→22:24)
[2018-03-03] MEDS: NON-FORMULARY MED GT SCH (09:20)
[2018-03-03] MEDS: FERROUS SO4 300 MG/5 ML ORAL SOLN UNIT DOSE CUPS GT SCH (09:21)
[2018-03-03] MEDS: MUPIROCIN 2% TOPICAL OINTMENT FOR DECOLONIZATION NS SCH (09:22)
[2018-03-03] MEDS: ARTIFICIAL TEARS (POLYVINYL ALCOHOL 1.4%) OPTH DROPS OU SCH ×2 (09:26→22:23)
[2018-03-03] MEDS: SULFAMETHOXAZOLE/TMP 200MG-40MG/5ML GT SCH (09:26)
[2018-03-03] MEDS: COLLAGENASE CLOSTRIDIUM HIST. 30 GRAMS TUBE TP SCH (11:00)
--- NOTE | 2018-03-03 11:37 | PN ---
Progress Note, Physician History of Present Illness: 87M w/ pmh of traumatic fall (s/p neck (C4,5, and 6)/back surgery, tracheotomy placement now ventilator dependent, and PEG tube placement), frequent pneumonia , emphysema, A-fib, CHF, DM, dementia, renal failure, nonverbal TBI, paraplegia , and legal blindness and deafness, who presents to the emergency department via EMS from [facility] with 3 days of hypotension. As per patients son , his blood pressure has been decreasing over the past few days. He reports that at baseline, his systolic is between 110-119 in the mornings and between 100-109 at night. Pt has failed 5 weaning trials in the last few days, and it was noticed that there was blood around the tracheostomy site when suctioning. Pt' son denies recent fevers, chills, chest pain, emesis, hematemesis, melena, and hematochezia in pt. - Current Medication List Current Medications: Active Medications Acetaminophen (Tylenol -) 650 mg PO Q4H PRN PRN Reason: FEVER Artificial Tears (Artificial Tears) 2 drop OU BID [facility] Last Admin: 03/03/18 09:26 Dose: 2 drop Atorvastatin Calcium (Lipitor -) 10 mg GT HS [facility] Last Admin: 03/02/18 21:55 Dose: 10 mg Collagenase (Santyl -) 1 applic TP DAILY [facility] Last Admin: 03/03/18 11:00 Dose: 1 applic Diltiazem HCl (Cardizem Injection -) 10 mg IVPUSH Q6H PRN PRN Reason: TACHYCARDIA Last Admin: 03/02/18 09:45 Dose: 10 mg Docusate Sodium (Colace Liquid -) 100 mg PO DAILY PRN PRN Reason: CONSTIPATION Ferrous Sulfate (Feosol) 300 mg GT DAILY [facility] Last Admin: 03/03/18 09:21 Dose: 300 mg Insulin Aspart (Novolog Vial Sliding Scale -) [address] [facility]; Protocol Last Admin: 03/03/18 11:36 Dose: 4 units Insulin Detemir (Levemir Vial) 16 units SQ [facility] Last Admin: 03/02/18 21:56 Dose: Not Given Levothyroxine Sodium (Synthroid -) 37.5 mcg PEG DAILY@0700 [facility] Last Admin: 03/03/18 06:39 Dose: 37.5 mcg Metoprolol Tartrate (Lopressor -) 25 mg PO BID [facility] Last Admin: 03/03/18 09:19 Dose: 25 mg Non-Formulary Medication (Non-Formulary Med) 1 each GT DAILY [facility] Last Admin: 03/03/18 09:20 Dose: 1 each Nystatin (Nystop Powder -) 1 applic TP BID [facility] Last Admin: 03/03/18 09:20 Dose: 1 applic Oxybutynin Chloride (Ditropan -) 5 mg NGT BID [facility] Last Admin: 03/03/18 09:20 Dose: 5 mg Pantoprazole Sodium (Protonix Packets For Oral Suspension -) 40 mg NGT DAILY [facility] Last Admin: 03/03/18 09:20 Dose: 40 mg Senna (Senna Oral Solution -) 8.8 mg GT HS [facility] Last Admin: 03/02/18 21:57 Dose: 8.8 mg Sertraline HCl (Zoloft -) 50 mg PO DAILY [facility] Last Admin: 03/03/18 09:19 Dose: 50 mg Simethicone (Mylicon Liquid -) 40 mg GT QID PRN PRN Reason: CONSTIPATION Tamsulosin HCl (Flomax -) 0.4 mg PO DAILY@0830 [facility] Last Admin: 03/03/18 09:20 Dose: 0.4 mg Trimethoprim/Sulfamethoxazole (Bactrim Oral Suspension -) 40 mg GT DAILY [facility] Last Admin: 03/03/18 09:26 Dose: 40 mg - Objective Vital Signs: Vital Signs Temperature 98.1 F 03/03/18 08:44 Pulse Rate 64 03/03/18 08:44 Respiratory Rate 23 03/03/18 10:26 Blood Pressure 126/59 03/03/18 08:44 O2 Sat by Pulse Oximetry (%) 93 L 03/03/18 08:30 Eyes: Yes: WNL, Conjunctiva Clear, EOM Intact HENT: Yes: WNL, Atraumatic, Normocephalic Neck: Yes: WNL, Supple, Trachea Midline Cardiovascular: Yes: WNL, Regular Rate and Rhythm Respiratory: Yes: Mechanically Ventilated Gastrointestinal: Yes: WNL, Normal Bowel Sounds Genitourinary: Yes: WNL Musculoskeletal: Yes: WNL Extremities: Yes: WNL Edema: No Integumentary: Yes: WNL Neurological: Yes: WNL, Alert, Oriented ...Motor Strength: WNL Psychiatric: Yes: WNL Labs: CBC, BMP 03/03/18 06:45 03/03/18 06:45 INR, PTT INR 1.13 (0.82-1.09) 02/16/18 22:40 Assessment/Plan Problems (1) Anemia Assessment/Plan: s/p EGD, cauterization, and PRBCs. Dark stools noted; no active bleed detected. Maintain hydration. F/u BUn/Cr Code(s): D64.9 - ANEMIA, UNSPECIFIED Qualifiers: Anemia type: due to chronic kidney disease Chronic kidney disease stage: unspecified stage Qualified Code(s): N18.9 - Chronic kidney disease, unspecified; D63.1 - Anemia in chronic kidney disease (2) Chronic kidney disease, stage 3 Assessment/Plan: f/u with director nursing service; Improvging BUN/Cr since GI caterization. Code(s): N18.3 - CHRONIC KIDNEY DISEASE, STAGE 3 (MODERATE) (3) Chronic respiratory failure Assessment/Plan: Ventilator dependent; on trach. On Assist control. Code(s): J96.10 - CHRONIC RESPIRATORY FAILURE, UNSP W HYPOXIA OR HYPERCAPNIA Qualifiers: Respiratory failure complication: unspecified whether with hypoxia or hypercapnia Qualified Code(s): J96.10 - Chronic respiratory failure, unspecified whether with hypoxia or hypercapnia (4) Hematuria Code(s): R31.9 - HEMATURIA, UNSPECIFIED (5) Hypotension Assessment/Plan: Pressure holding (off pressors). Code(s): I95.9 - HYPOTENSION, UNSPECIFIED (6) PAF (paroxysmal atrial fibrillation) Assessment/Plan: EKG 02/23/18: AF with RVR (HR 150 bpm); now has HR in 80s bpm. Restarted metoprolol at low dose (12.5 mg bid), titrate off diltiazem. If pt becomes profoundly bradycardia, will have to consider PPM. anticoagulation held due to GI bleed. TSH 3.59 recently. Code(s): I48.0 - PAROXYSMAL ATRIAL FIBRILLATION (7) S/P percutaneous endoscopic gastrostomy (PEG) tube placement Assessment/Plan: site appears intact Code(s): Z93.1 - GASTROSTOMY STATUS (8) Acute on chronic diastolic CHF (congestive heart failure) Code(s): I50.33 - ACUTE ON CHRONIC DIASTOLIC (CONGESTIVE) HEART FAILURE (9) Sinus bradycardia Code(s): R00.1 - BRADYCARDIA, UNSPECIFIED (10) TBI (traumatic brain injury) Code(s): S06.9X9A - UNSP INTRACRANIAL INJURY W LOC OF UNSP DURATION, INIT Qualifiers: Encounter type: sequela Loss of consciousness presence/duration: with LOC of unspecified duration Qualified Code(s): S06.9X9S - Unspecified intracranial injury with loss of consciousness of unspecified duration, sequela (11) Severe mitral regurgitation Code(s): I34.0 - NONRHEUMATIC MITRAL (VALVE) INSUFFICIENCY (12) Hypokalemia Code(s): E87.6 - HYPOKALEMIA (13) Hypoalbuminemia Code(s): E88.09 - OTH DISORDERS OF PLASMA-PROTEIN METABOLISM, NEC Assessment/Plan CCU time spent: 37 minutes
--- NOTE | 2018-03-03 13:49 | PN ---
Teaching Attending Note Name of Resident: Elia Prieto ATTENDING PHYSICIAN STATEMENT I saw and evaluated the patient. I reviewed the resident's note and discussed the case with the resident. I agree with the resident's findings and plan as documented. SUBJECTIVE:resting comfortable OBJECTIVE: Last Vital Signs Temp Pulse Resp BP Pulse Ox 98.1 F 64 23 126/59 93 L 03/03/18 08:44 03/03/18 08:44 03/03/18 10:26 03/03/18 08:44 03/03/18 08:30 General NAD spontaneous eye opening CV S1 S2 RRR no murmur/rub/gallop Lungs Coarse breath sounds anteriorly Abdomen soft. NT/ND +PEG no bleeding noted around PEG normoactive BS Extremities no pedal edema. contracted B/L upper extremities skin macular rash on flanks and under axillae, not raised. 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 Admitted on 02/17/[address] [facility] chronic respiratory failure and severe anemia with a hg of 5.5 and hypotension. 1. Acute on chronic respiratory failure- due to aspiration PNA. now improved. has returned to baseline vent settings. not weanable. off steroids. pulmonary on board 2. Aspiration PNA-completed extended course of zosyn., now on bactrim day 7. will need 2 week course. ID on board 3. macular rash- possible heat rash as only on flanks however can not rule out drug reaction. been on bactrim for 1 week. will request ID to evaluate and determine if abx should be held. would cont at this time.other possbility is extension of fungal groin rash extending 4. distended abdomen-remains distended however stable. rectal tube in place and having dark soft stools. tolerating TF. continue 5. Multifactorial anemia with Upper GI bleed- s/p EGD with Diluefoy lesion s/p heat probe and epi. s/p 10 units PRBC this hospital stay. Hgb trending down. repeat CBC. no signs of bleeding. has some melena but will likely have for extended period of time with recent GI bled. no indication for transfusion. hematology on board. on iron supplementation 6. Acute on CKD- hypoperfusion. now trending down. elevated BUN likely due to GI bleed. now off steroids. cont to monitor. nephro on board 7. new onset afib- rate controlled.cont metoprolol. not a candidate for anticoagulation iwth recent GI bleed. echo reviewed. cardio on board 8. Hypernatremia- resolved. cont water flushes. monitor 9. Thrombophilia-stable. off medications 10. DM-improved cont levemir. cont iss. titrate as needed to optimize control 11. TBI- s/p trach and PEG 12. 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 13. legally blind and deaf 14. hypothyroid- on Lt4 15. urinary incontinence- with chronic indwelling christopher. cont oxybutin/flomax 16. depression- on zoloft 17. DVT ppx- SCD. would hold pharmacologic anticoagulation wwith recent GI bleed
--- NOTE | 2018-03-03 13:56 | PN ---
Physical Exam: SUBJECTIVE: Patient seen and examined at bedside. Pt transferred to floors from ICU. Continues to have dark stools. OBJECTIVE: Vital Signs Period Temp Pulse Resp BP Sys/Wills Pulse Ox Last 24 Hr 98.1 F-98.5 F 62-78 14-23 106-130/48-63 93-100 Gen: uncommunicative. No apparent distress. Opened eyes to touch HEENT: NCAT Neck: trach tube in place. No blood at stoma. functioning well Cardio: irregular, tachycardic, norm s1s2, no m/r/g appreciated Lungs:clear breath sounds anteriorly Abd: soft, less distended than yest. No blood at peg site Ext: 1+ pulses, no edema Laboratory Results - last 24 hr 03/02/18 03/02/18 03/03/18 12:08 21:53 01:45 WBC RBC Hgb Hct MCV MCH MCHC RDW Plt Count MPV Absolute Neuts (auto) Neutrophils % Lymphocytes % Monocytes % Eosinophils % Basophils % Nucleated RBC % Sodium Potassium Chloride Carbon Dioxide Anion Gap BUN Creatinine Creat Clearance w eGFR POC Glucometer 301.45768 77 142 Random Glucose Calcium Phosphorus Magnesium Total Bilirubin AST ALT Alkaline Phosphatase Total Protein Albumin 03/03/18 03/03/18 03/03/18 06:13 06:45 06:45 WBC 7.8 RBC 2.60 L Hgb 8.0 L Hct 24.1 L MCV 92.7 MCH 30.8 MCHC 33.2 RDW 22.9 H Plt Count 139 MPV 10.2 Absolute Neuts (auto) 6.5 Neutrophils % 83.1 H Lymphocytes % 10.3 D Monocytes % 4.5 Eosinophils % 1.8 Basophils % 0.3 Nucleated RBC % 0 Sodium 143 Potassium 4.8 Chloride 113 H Carbon Dioxide 22 Anion Gap 8 BUN 86 H Creatinine 1.8 H Creat Clearance w eGFR 36.04 POC Glucometer 200 Random Glucose 177 H Calcium 7.3 L Phosphorus 3.0 D Magnesium 2.0 Total Bilirubin 0.3 AST 43 H ALT 57 D Alkaline Phosphatase 144 H D Total Protein 5.3 L Albumin 2.0 L 03/03/18 11:24 WBC RBC Hgb Hct MCV MCH MCHC RDW Plt Count MPV Absolute Neuts (auto) Neutrophils % Lymphocytes % Monocytes % Eosinophils % Basophils % Nucleated RBC % Sodium Potassium Chloride Carbon Dioxide Anion Gap BUN Creatinine Creat Clearance w eGFR POC Glucometer 239 Random Glucose Calcium Phosphorus Magnesium Total Bilirubin AST ALT Alkaline Phosphatase Total Protein Albumin Active Medications Generic Name Dose Route Start Last Admin Trade Name Freq PRN Reason Stop Dose Admin Acetaminophen 650 mg 03/01/18 15:42 Tylenol - PO Q4H PRN FEVER Artificial Tears 2 drop 03/01/18 22:00 03/03/18 09:26 Artificial Tears OU 2 drop BID [facility] Administration Atorvastatin Calcium 10 mg 03/01/18 22:00 03/02/18 21:55 Lipitor - GT 10 mg HS [facility] Administration Collagenase 1 applic 03/02/18 10:00 03/03/18 11:00 Santyl - TP 1 applic DAILY [facility] Administration Diltiazem HCl 10 mg 03/01/18 15:42 03/02/18 09:45 Cardizem Injection - IVPUSH 10 mg Q6H PRN Administration TACHYCARDIA Docusate Sodium 100 mg 03/01/18 15:42 Colace Liquid - PO DAILY PRN CONSTIPATION Ferrous Sulfate 300 mg 03/02/18 10:00 03/03/18 09:21 Feosol GT 300 mg DAILY [facility] Administration Insulin Aspart 1 vial 03/01/18 16:30 03/03/18 11:36 Novolog Vial Sliding Scale - SQ 4 units ACHS [facility] Administration Protocol Insulin Detemir 16 units 03/01/18 22:00 03/02/18 21:56 Levemir Vial SQ Not Given HS [facility] Levothyroxine Sodium 37.5 mcg 03/02/18 07:00 03/03/18 06:39 Synthroid - PEG 37.5 mcg DAILY@0700 [facility] Administration Metoprolol Tartrate 25 mg 03/02/18 22:00 03/03/18 09:19 Lopressor - PO 25 mg BID [facility] Administration Non-Formulary Medication 1 each 03/02/18 10:00 03/03/18 09:20 Non-Formulary Med GT 1 each DAILY [facility] Administration Nystatin 1 applic 03/01/18 22:00 03/03/18 09:20 Nystop Powder - TP 1 applic BID [facility] Administration Oxybutynin Chloride 5 mg 03/01/18 22:00 03/03/18 09:20 Ditropan - NGT 5 mg BID [facility] Administration Pantoprazole Sodium 40 mg 03/02/18 10:00 03/03/18 09:20 Protonix Packets For Oral Suspension - NGT 40 mg DAILY [facility] Administration Senna 8.8 mg 03/02/18 22:00 03/02/18 21:57 Senna Oral Solution - GT 8.8 mg HS [facility] Administration Sertraline HCl 50 mg 03/02/18 21:25 03/03/18 09:19 Zoloft - PO 50 mg DAILY [facility] Administration Simethicone 40 mg 03/02/18 14:35 Mylicon Liquid - GT QID PRN CONSTIPATION Tamsulosin HCl 0.4 mg 03/02/18 08:30 03/03/18 09:20 Flomax - PO 0.4 mg DAILY@0830 [facility] Administration Trimethoprim/Sulfamethoxazole 40 mg 03/02/18 10:00 03/03/18 09:26 Bactrim Oral Suspension - GT 40 mg DAILY [facility] Administration ASSESSMENT/PLAN: Pt is an 87 y/o M with PMH significant for TBI (08/2017) s/p trach and vent dependent, PEG, paraplegia, dCHF, NIDDM, CKD, deaf, blind who presented to ED from [facility] with respiratory failure and severe anemia with hypotension. Pt is admitted to Med-Surg. #Afib -Pt alternates between fast and slow Afib. rate varies between 50 and 150 -Has been treated previously with Lopressor PRN. -Cardizem stopped -Lopressor increased to 25mg BID -HR controlled at this time -Cardio on board #Abdominal distension -intermittent large volume stools reported -abdomen soft, distended, tympanic -NPO -2nd CTAP neg for volvulus -Had BM yest #GIB: likely Resolved -fobt pos -anemia -counts were dropping despite prbcs and epo -GI consulted -gastric lavage with pink/red fluid -Pt had a scope sig for bleeding AVM -Discussed with GI -G-tube feeds held temporarily over the weekend. Currently running -Pt had black bm. Likely old blood. -Hb dropped 1 point to 8 since yest. #Asp PNA -ID on board -Sputum culture pos for P aerug. Pseudo fluorescens -Zosyn d/c'ed -Bactrim #Anemia -was transfused 7 PRBCs total -Hb stable last 2 days -Given Epo (02/20/2018) -Heme on board: will give weekly Epo -No obvious active bleed -per son, had negative colonoscopy 2 years ago #Acute on chronic resp failure -likely 2/2 aspiration PNA -at baseline vent settings: AC Tv 450, RR 14, FiO2 28, PEEP 5 -Initially on Medrol 40. d/c'ed -Prednisone 40 -Pulm on board: poor weaning candidate #Acute on CKD - Security Professional stabilized - BUN up-trending -? etiology. ?steroids vs GIB (most likely) vs dehydration (likely component) -Nepro on board: prerenal. Adjusted fluids #Hypernatremia: resolved -fluids modified by nephro -Nephro input appreciated #Hypokalemia: resolved -Fluids monitored and adjusted by nephro #Thrombophilia - Resolved -plt wnl #DM -Levemir was increased -ISS -glucose continues to be elevated in 150s -titrate Insulin #TBI -s/p trach and PEG -secondary paraplegia #Hypothyroid -c/w synthroid #Incontinence -christopher -flomax -oxybutinin #depression -zoloft #FEN -not on fluids -lytes wnl -Nutrition: via G-tube. flushes #PPx -held in setting of possible bleed #Dispo -med surg Elia Prieto MD PGY-1 IM Visit type - Emergency Visit Emergency Visit: No - New Patient This patient is new to me today: No - Critical Care Critical Care patient: No - Discharge Referral Referred to [facility] Med [facility] No
[2018-03-03 14:13] LABS: BASO % 0.4 % (0-2.0); EOS % 1.7 % (0-4.5); HEMATOCRIT 23.6 % (35.4-49); HEMOGLOBIN 7.7 GM/dL (11.7-16.9); LYMPH % 9.8 % (8-40); MCH 30.5 pg (25.7-33.7); MCHC 32.7 g/dl (32.0-35.9); MEAN PLT VOLUME 10.2 fl (7.5-11.1); MONO % 6.1 % (3.8-10.2); PLATELET COUNT 139 K/MM3 (134-434); RBC 2.54 M/mm3 (4.00-5.60); RDW 21.8 % (11.9-15.9); WHITE BLOOD COUNT 6.3 K/mm3 (4.0-10.0)
--- NOTE | 2018-03-03 14:16 | PN ---
Progress Note, Physician History of Present Illness: pulmonary poorly responsive on vent support ac mode - Current Medication List Current Medications: Active Medications Acetaminophen (Tylenol -) 650 mg PO Q4H PRN PRN Reason: FEVER Artificial Tears (Artificial Tears) 2 drop OU BID [facility] Last Admin: 03/03/18 09:26 Dose: 2 drop Atorvastatin Calcium (Lipitor -) 10 mg GT HS [facility] Last Admin: 03/02/18 21:55 Dose: 10 mg Collagenase (Santyl -) 1 applic TP DAILY [facility] Last Admin: 03/03/18 11:00 Dose: 1 applic Diltiazem HCl (Cardizem Injection -) 10 mg IVPUSH Q6H PRN PRN Reason: TACHYCARDIA Last Admin: 03/02/18 09:45 Dose: 10 mg Docusate Sodium (Colace Liquid -) 100 mg PO DAILY PRN PRN Reason: CONSTIPATION Ferrous Sulfate (Feosol) 300 mg GT DAILY [facility] Last Admin: 03/03/18 09:21 Dose: 300 mg Insulin Aspart (Novolog Vial Sliding Scale -) 1 vial SQ [facility]; Protocol Last Admin: 03/03/18 11:36 Dose: 4 units Insulin Detemir (Levemir Vial) 16 units SQ [facility] Last Admin: 03/02/18 21:56 Dose: Not Given Levothyroxine Sodium (Synthroid -) 37.5 mcg PEG DAILY@0700 [facility] Last Admin: 03/03/18 06:39 Dose: 37.5 mcg Metoprolol Tartrate (Lopressor -) 25 mg PO BID [facility] Last Admin: 03/03/18 09:19 Dose: 25 mg Non-Formulary Medication (Non-Formulary Med) 1 each GT DAILY [facility] Last Admin: 03/03/18 09:20 Dose: 1 each Nystatin (Nystop Powder -) 1 applic TP BID [facility] Last Admin: 03/03/18 09:20 Dose: 1 applic Oxybutynin Chloride (Ditropan -) 5 mg NGT BID [facility] Last Admin: 03/03/18 09:20 Dose: 5 mg Pantoprazole Sodium (Protonix Packets For Oral Suspension -) 40 mg NGT DAILY [facility] Last Admin: 03/03/18 09:20 Dose: 40 mg Senna (Senna Oral Solution -) 8.8 mg GT [facility] Last Admin: 03/02/18 21:57 Dose: 8.8 mg Sertraline HCl (Zoloft -) 50 mg PO DAILY [facility] Last Admin: 03/03/18 09:19 Dose: 50 mg Simethicone (Mylicon Liquid -) 40 mg GT QID PRN PRN Reason: CONSTIPATION Tamsulosin HCl (Flomax -) 0.4 mg PO DAILY@0830 [facility] Last Admin: 03/03/18 09:20 Dose: 0.4 mg Trimethoprim/Sulfamethoxazole (Bactrim Oral Suspension -) 40 mg GT DAILY [facility] Last Admin: 03/03/18 09:26 Dose: 40 mg - Objective Vital Signs: Vital Signs Temperature 98.1 F 03/03/18 08:44 Pulse Rate 64 03/03/18 08:44 Respiratory Rate 23 03/03/18 10:26 Blood Pressure 126/59 03/03/18 08:44 O2 Sat by Pulse Oximetry (%) 93 L 03/03/18 08:30 Constitutional: Yes: Well Nourished, Other (poorly responsive) Eyes: Yes: WNL HENT: Yes: WNL Neck: Yes: Supple (trach) Cardiovascular: Yes: Pulse Irregular, S1, S2 Respiratory: Yes: Mechanically Ventilated, Rhonchi Gastrointestinal: Yes: Normal Bowel Sounds, Soft Extremities: Yes: WNL Edema: No Labs: CBC, BMP 03/03/18 06:45 INR, PTT INR 1.13 (0.82-1.09) 02/16/18 22:40 Problem List - Problems (1) Anemia Code(s): D64.9 - ANEMIA, UNSPECIFIED (2) Chronic kidney disease, stage 3 Code(s): N18.3 - CHRONIC KIDNEY DISEASE, STAGE 3 (MODERATE) (3) Chronic respiratory failure Code(s): J96.10 - CHRONIC RESPIRATORY FAILURE, UNSP W HYPOXIA OR HYPERCAPNIA Qualifiers: Respiratory failure complication: unspecified whether with hypoxia or hypercapnia Qualified Code(s): J96.10 - Chronic respiratory failure, unspecified whether with hypoxia or hypercapnia (4) PAF (paroxysmal atrial fibrillation) Code(s): I48.0 - PAROXYSMAL ATRIAL FIBRILLATION (5) Renal failure Code(s): N19 - UNSPECIFIED KIDNEY FAILURE Qualifiers: Renal failure chronicity: unspecified chronicity Qualified Code(s): N19 - Unspecified kidney failure (6) Diabetes Code(s): E11.9 - TYPE 2 DIABETES MELLITUS WITHOUT COMPLICATIONS Qualifiers: Diabetes mellitus type: type 2 Diabetes mellitus intermediate school teacher insulin use: unspecified intermediate school teacher insulin use status Diabetes mellitus complication status : with kidney complications Diabetes mellitus complication detail: with chronic kidney disease Chronic kidney disease stage: stage 3 (moderate) Qualified Code(s): E11.22 - Type 2 diabetes mellitus with diabetic chronic kidney disease; N18.3 - Chronic kidney disease, stage 3 (moderate) (7) TBI (traumatic brain injury) Code(s): S06.9X9A - UNSP INTRACRANIAL INJURY W LOC OF UNSP DURATION, INIT Qualifiers: Encounter type: sequela Loss of consciousness presence/duration: with LOC of unspecified duration Qualified Code(s): S06.9X9S - Unspecified intracranial injury with loss of consciousness of unspecified duration, sequela (8) Miujx-ln-ebevqyj kidney injury Code(s): N17.9 - ACUTE KIDNEY FAILURE, UNSPECIFIED; N18.9 - CHRONIC KIDNEY DISEASE, UNSPECIFIED (9) Wjdlj-jq-nvilsew renal failure Code(s): N17.9 - ACUTE KIDNEY FAILURE, UNSPECIFIED; N18.9 - CHRONIC KIDNEY DISEASE, UNSPECIFIED Qualifiers: Acute renal failure type: unspecified Chronic kidney disease stage: stage 3 (moderate) Qualified Code(s): N17.9 - Acute kidney failure, unspecified; N18.3 - Chronic kidney disease, stage 3 (moderate) (10) Hypotension Code(s): I95.9 - HYPOTENSION, UNSPECIFIED (11) Hypotension Code(s): I95.9 - HYPOTENSION, UNSPECIFIED Assessment/Plan ASSESSMENT AND PLAN: GI Bleed/Gastric Dieulafoy Lesion s/p EGD/epi/cautery Acute Blood Loss Anemia Chronic Respiratory Failure Pneumonia h/o Traumatic Brain Injury Functional Quadriplegia Acute on Chronic Renal Failure Atrial Fibrillation DM Dementia - monitor H/H - protonix - antibiotics per ID - rate control - holding anticoagulation - volume assist control - poor candidate for weaning due to poor mental status - replete free water - enteral feeds as tolerated - DVT/GI prophylaxis DR FORMAN
--- NOTE | 2018-03-03 15:06 | PN ---
Progress Note, Physician History of Present Illness: stable no events overnight except patient has developed a rash over the side continues to be non verbal and on vent - Current Medication List Current Medications: Active Medications Acetaminophen (Tylenol -) 650 mg PO Q4H PRN PRN Reason: FEVER Artificial Tears (Artificial Tears) 2 drop OU BID [facility] Last Admin: 03/03/18 09:26 Dose: 2 drop Atorvastatin Calcium (Lipitor -) 10 mg GT HS [facility] Last Admin: 03/02/18 21:55 Dose: 10 mg Collagenase (Santyl -) 1 applic TP DAILY [facility] Last Admin: 03/03/18 11:00 Dose: 1 applic Diltiazem HCl (Cardizem Injection -) 10 mg IVPUSH Q6H PRN PRN Reason: TACHYCARDIA Last Admin: 03/02/18 09:45 Dose: 10 mg Docusate Sodium (Colace Liquid -) 100 mg PO DAILY PRN PRN Reason: CONSTIPATION Ferrous Sulfate (Feosol) 300 mg GT DAILY [facility] Last Admin: 03/03/18 09:21 Dose: 300 mg Insulin Aspart (Novolog Vial Sliding Scale -) 1 vial SQ [facility]; Protocol Last Admin: 03/03/18 11:36 Dose: 4 units Insulin Detemir (Levemir Vial) 16 units SQ [facility] Last Admin: 03/02/18 21:56 Dose: Not Given Levothyroxine Sodium (Synthroid -) 37.5 mcg PEG DAILY@0700 [facility] Last Admin: 03/03/18 06:39 Dose: 37.5 mcg Metoprolol Tartrate (Lopressor -) 25 mg PO BID [facility] Last Admin: 03/03/18 09:19 Dose: 25 mg Non-Formulary Medication (Non-Formulary Med) 1 each GT DAILY [facility] Last Admin: 03/03/18 09:20 Dose: 1 each Nystatin (Nystop Powder -) 1 applic TP BID [facility] Last Admin: 03/03/18 09:20 Dose: 1 applic Oxybutynin Chloride (Ditropan -) 5 mg NGT BID [facility] Last Admin: 03/03/18 09:20 Dose: 5 mg Pantoprazole Sodium (Protonix Packets For Oral Suspension -) 40 mg NGT DAILY [facility] Last Admin: 03/03/18 09:20 Dose: 40 mg Senna (Senna Oral Solution -) 8.8 mg GT [facility] Last Admin: 03/02/18 21:57 Dose: 8.8 mg Sertraline HCl (Zoloft -) 50 mg PO DAILY [facility] Last Admin: 03/03/18 09:19 Dose: 50 mg Simethicone (Mylicon Liquid -) 40 mg GT QID PRN PRN Reason: CONSTIPATION Tamsulosin HCl (Flomax -) 0.4 mg PO DAILY@0830 [facility] Last Admin: 03/03/18 09:20 Dose: 0.4 mg - Objective Vital Signs: Vital Signs Temperature 99.2 F 03/03/18 13:00 Pulse Rate 64 03/03/18 13:00 Respiratory Rate 18 03/03/18 13:00 Blood Pressure 96/44 03/03/18 13:00 O2 Sat by Pulse Oximetry (%) 97 03/03/18 09:00 Constitutional: Yes: No Distress, Calm Cardiovascular: Yes: Pulse Irregular, S1, S2 Respiratory: Yes: Mechanically Ventilated, Other (trach collar) Gastrointestinal: Yes: Normal Bowel Sounds, Soft, Other (peg in place) Musculoskeletal: Yes: WNL Edema: LLE: Trace, RLE: Trace Neurological: Yes: Other Psychiatric: Yes: Other Labs: CBC, BMP 03/03/18 13:35 03/03/18 06:45 INR, PTT INR 1.13 (0.82-1.09) 02/16/18 22:40 Assessment/Plan Problem List - Problems (1) Anemia Code(s): D64.9 - ANEMIA, UNSPECIFIED (2) Chronic kidney disease, stage 3 Code(s): N18.3 - CHRONIC KIDNEY DISEASE, STAGE 3 (MODERATE) (3) Chronic respiratory failure Code(s): J96.10 - CHRONIC RESPIRATORY FAILURE, UNSP W HYPOXIA OR HYPERCAPNIA Qualifiers: Respiratory failure complication: unspecified whether with hypoxia or hypercapnia Qualified Code(s): J96.10 - Chronic respiratory failure, unspecified whether with hypoxia or hypercapnia (4) PAF (paroxysmal atrial fibrillation) Code(s): I48.0 - PAROXYSMAL ATRIAL FIBRILLATION (5) Renal failure Code(s): N19 - UNSPECIFIED KIDNEY FAILURE Qualifiers: Renal failure chronicity: unspecified chronicity Qualified Code(s): N19 - Unspecified kidney failure (6) Diabetes Code(s): E11.9 - TYPE 2 DIABETES MELLITUS WITHOUT COMPLICATIONS (7) TBI (traumatic brain injury) Code(s): S06.9X9A - UNSP INTRACRANIAL INJURY W LOC OF UNSP DURATION, INIT (8) Pzzkp-pu-abqqmnc kidney injury Code(s): N17.9 - ACUTE KIDNEY FAILURE, UNSPECIFIED; N18.9 - CHRONIC KIDNEY DISEASE, UNSPECIFIED (9) Qmtnr-xx-xisxmoy renal failure Code(s): N17.9 - ACUTE KIDNEY FAILURE, UNSPECIFIED; N18.9 - CHRONIC KIDNEY DISEASE, UNSPECIFIED (10) Hypotension Code(s): I95.9 - HYPOTENSION, UNSPECIFIED (11) Hypotension Code(s): I95.9 - HYPOTENSION, UNSPECIFIED 12 gi bleed 13 difuleoy lesion 14 rash I plan will stop bactrim rest continue current mgmt monitor the rash rest as per the team
[2018-03-03 15:53] LABS: ANISOCYTOSIS 2+
[2018-03-03 15:54] LABS: PLATELET ESTIMATE ADEQUATE
--- NOTE | 2018-03-03 17:09 | PN ---
Progress Note (short form) - Note Progress Note: Renal Follow up for CKD/KATERIN Pt seen and examined at the bedside on vent no overnight events making urine via christopher on tube feeds Vital Signs Temperature 99.2 F 03/03/18 13:00 Pulse Rate 64 03/03/18 13:00 Respiratory Rate 17 03/03/18 14:13 Blood Pressure 96/44 03/03/18 13:00 O2 Sat by Pulse Oximetry (%) 97 03/03/18 09:00 Intake & Output 02/28/18 03/01/18 03/02/18 03/03/18 23:59 23:59 23:59 23:59 Intake Total 1780 2100 2800 1300 Output Total 3695 848 0639 1000 Balance 280 1200 1200 300 Weight 65.969 kg 66.848 kg 66.848 kg 69.264 kg NAD on vent via trach No rales no Le edema christopher in place CBC, BMP 03/03/18 13:35 03/03/18 06:45 Current Medications Acetaminophen (Tylenol -) 650 mg PO Q4H PRN PRN Reason: FEVER Artificial Tears (Artificial Tears) 2 drop OU BID [facility] Last Admin: 03/03/18 09:26 Dose: 2 drop Atorvastatin Calcium (Lipitor -) 10 mg GT HS [facility] Last Admin: 03/02/18 21:55 Dose: 10 mg Collagenase (Santyl -) 1 applic TP DAILY [facility] Last Admin: 03/03/18 11:00 Dose: 1 applic Diltiazem HCl (Cardizem Injection -) 10 mg IVPUSH Q6H PRN PRN Reason: TACHYCARDIA Last Admin: 03/02/18 09:45 Dose: 10 mg Docusate Sodium (Colace Liquid -) 100 mg PO DAILY PRN PRN Reason: CONSTIPATION Ferrous Sulfate (Feosol) 300 mg GT DAILY [facility] [place] Last Admin: 03/03/18 09:21 Dose: 300 mg Insulin Aspart (Novolog Vial Sliding Scale -) 1 vial SQ [facility]; Protocol Last Admin: 03/03/18 16:46 Dose: Not Given Insulin Detemir (Levemir Vial) 16 units SQ [facility] Last Admin: 03/02/18 21:56 Dose: Not Given Levothyroxine Sodium (Synthroid -) 37.5 mcg PEG DAILY@0700 [facility] Last Admin: 03/03/18 06:39 Dose: 37.5 mcg Metoprolol Tartrate (Lopressor -) 25 mg PO BID [facility] Last Admin: 03/03/18 09:19 Dose: 25 mg Non-Formulary Medication (Non-Formulary Med) 1 each GT DAILY [facility] Last Admin: 03/03/18 09:20 Dose: 1 each Nystatin (Nystop Powder -) 1 applic TP BID [facility] Last Admin: 03/03/18 09:20 Dose: 1 applic Oxybutynin Chloride (Ditropan -) 5 mg NGT BID [facility] [place] Last Admin: 03/03/18 09:20 Dose: 5 mg Pantoprazole Sodium (Protonix Packets For Oral Suspension -) 40 mg NGT DAILY [facility] [place] Last Admin: 03/03/18 09:20 Dose: 40 mg Senna (Senna Oral Solution -) 8.8 mg GT HS [facility] Last Admin: 03/02/18 21:57 Dose: 8.8 mg Sertraline HCl (Zoloft -) 50 mg PO DAILY [facility] Last Admin: 03/03/18 09:19 Dose: 50 mg Simethicone (Mylicon Liquid -) 40 mg GT QID PRN PRN Reason: CONSTIPATION Tamsulosin HCl (Flomax -) 0.4 mg PO DAILY@0830 [facility] Last Admin: 03/03/18 09:20 Dose: 0.4 mg 87 year old man with a significant past medical history of 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 #CKD Stage 3 with higher then baseline BUN/Cr #GI bleed #Anemia #Hypokalemia #Hypernatremia Renal function improved and stable Maintaining good urine output continue tube feeds Hgb slowly downtrending, transfuse as per primary Potassium wnl Serum na improved, continue free water with feeds Frank Ayoub DO
[2018-03-03 21:53] LABS: BASO % 0.4 % (0-2.0); EOS % 2.2 % (0-4.5); HEMATOCRIT 25.2 % (35.4-49); LYMPH % 12.9 % (8-40); MCH 29.6 pg (25.7-33.7); MCHC 31.7 g/dl (32.0-35.9); MEAN CELL VOLUME 93.4 fl (80-96); MONO % 5.2 % (3.8-10.2); NEUT % 79.3 % (42.8-82.8); PLATELET COUNT 145 K/MM3 (134-434); RDW 21.5 % (11.9-15.9); WHITE BLOOD COUNT 5.7 K/mm3 (4.0-10.0)
[2018-03-03 21:55] LABS: ADD RBC MORPHOLOGY YES
[2018-03-03] MEDS: INSULIN (LEVEMIR) 100 UNITS/ML UNITS SQ SCH (22:22)
[2018-03-03] MEDS: ATORVASTATIN CA 10 MG TABLET (FP) GT SCH (22:22)
[2018-03-03] MEDS: SENNOSIDES 8.8 MG/5 ML BULK BOTTLE GT SCH (22:23)
[2018-03-03 22:43] LABS: PLATELET ESTIMATE ADEQUATE
[2018-03-04] MEDS: INSULIN SLIDING SCALE (NOVOLOG) 1 VIAL SQ SCH ×4 (06:19→23:23)
[2018-03-04] MEDS: LEVOTHYROXINE NA 25 MCG TABLET (FP) PEG SCH (06:54)
[2018-03-04 07:59] LABS: BASO % 0.3 % (0-2.0); HEMOGLOBIN 8.5 GM/dL (11.7-16.9); LYMPH % 11.5 % (8-40); MCH 30.6 pg (25.7-33.7); MCHC 32.8 g/dl (32.0-35.9); MEAN CELL VOLUME 93.4 fl (80-96); MEAN PLT VOLUME 9.9 fl (7.5-11.1); MONO % 5.2 % (3.8-10.2); PLATELET COUNT 153 K/MM3 (134-434); RBC 2.78 M/mm3 (4.00-5.60); WHITE BLOOD COUNT 6.9 K/mm3 (4.0-10.0)
[2018-03-04] MEDS ORDERED: PT OWN MED DRAWER 7, Y5N ONE ×2 (09:03→22:03)
[2018-03-04] MEDS: TAMSULOSIN HCL 0.4 MG CAP.ER.24H (FP) PO SCH (09:18)
[2018-03-04] MEDS: OXYBUTYNIN CHLORIDE 5 MG TABLET NGT SCH ×2 (09:20→23:20)
[2018-03-04] MEDS: ARTIFICIAL TEARS (POLYVINYL ALCOHOL 1.4%) OPTH DROPS OU SCH ×2 (09:20→23:22)
[2018-03-04] MEDS: FERROUS SO4 300 MG/5 ML ORAL SOLN UNIT DOSE CUPS GT SCH (09:21)
[2018-03-04] MEDS: NON-FORMULARY MED GT SCH (09:22)
[2018-03-04] MEDS: METOPROLOL TARTRATE 25 MG TABLET (FP) PO SCH ×2 (09:22→23:24)
[2018-03-04] MEDS: NYSTATIN POWDER 100,000 UNITS/GM - 15 GM TOPICAL POWDER TP SCH ×2 (09:23→23:50)
[2018-03-04] MEDS: PANTOPRAZOLE SOD 40 MG SUSPENSION PACKET NGT SCH (09:23)
[2018-03-04] MEDS: SERTRALINE HCL 25 MG TABLET (FP) PO SCH (09:24)
[2018-03-04] MEDS: COLLAGENASE CLOSTRIDIUM HIST. 30 GRAMS TUBE TP SCH (09:24)
[2018-03-04 09:32] LABS: ALK PHOS 145 U/L (45-117); ANION GAP 8 (8-16); BILIRUBIN,TOTAL 0.3 mg/dL (0.2-1.0); BLOOD UREA NITROGEN 88 mg/dL (7-18); CALCIUM 7.8 mg/dL (8.5-10.1); CHLORIDE 112 mmol/L (98-107); CO2 23 mmol/L (21-32); CREATININE 1.8 mg/dL (0.7-1.3); GLUCOSE,RANDOM 91 mg/dL (74-106); POTASSIUM 4.8 mmol/L (3.5-5.1); SGOT/AST 43 U/L (15-37); SGPT/ALT 62 U/L (12-78); SODIUM 143 mmol/L (136-145); TOT PROT 5.5 g/dl (6.4-8.2)
[2018-03-04] MEDS ORDERED: DEXTROSE 50%-WATER - 25 GM/50 ML VIAL IVPUSH ONE (12:34)
[2018-03-04] MEDS ORDERED: DEXTROSE 50%-WATER 25 GM/50 ML DISP.SYRIN IVPUSH ONE (13:00)
[2018-03-04] MEDS ORDERED: DEXTROSE 50%-WATER 25 GM/50 ML DISP.SYRIN ONE (13:01)
--- NOTE | 2018-03-04 14:32 | PN ---
Progress Note, Physician History of Present Illness: PULMONARY MORE ALERT,ON VENT SUPPORT AC MODE - Current Medication List Current Medications: Active Medications Acetaminophen (Tylenol -) 650 mg PO Q4H PRN PRN Reason: FEVER Artificial Tears (Artificial Tears) 2 drop OU BID [facility] Last Admin: 03/04/18 09:20 Dose: 2 drop Atorvastatin Calcium (Lipitor -) 10 mg GT HS [facility] Last Admin: 03/03/18 22:22 Dose: 10 mg Collagenase (Santyl -) 1 applic TP DAILY [facility] Last Admin: 03/04/18 09:24 Dose: 1 applic Diltiazem HCl (Cardizem Injection -) 10 mg IVPUSH Q6H PRN PRN Reason: TACHYCARDIA Last Admin: 03/02/18 09:45 Dose: 10 mg Docusate Sodium (Colace Liquid -) 100 mg PO DAILY PRN PRN Reason: CONSTIPATION Ferrous Sulfate (Feosol) 300 mg GT DAILY [facility] Last Admin: 03/04/18 09:21 Dose: 300 mg Insulin Aspart (Novolog Vial Sliding Scale -) 1 vial SQ [facility]; Protocol Last Admin: 03/04/18 11:48 Dose: Not Given Insulin Detemir (Levemir Vial) 16 units SQ [facility] Last Admin: 03/03/18 22:22 Dose: 16 unit Levothyroxine Sodium (Synthroid -) 37.5 mcg PEG DAILY@0700 [facility] Last Admin: 03/04/18 06:54 Dose: 37.5 mcg Metoprolol Tartrate (Lopressor -) 25 mg PO BID [facility] Last Admin: 03/04/18 09:22 Dose: 25 mg Non-Formulary Medication (Non-Formulary Med) 1 each GT DAILY [facility] Last Admin: 03/04/18 09:22 Dose: 1 each Nystatin (Nystop Powder -) 1 applic TP BID [facility] Last Admin: 03/04/18 09:23 Dose: 1 applic Oxybutynin Chloride (Ditropan -) 5 mg NGT BID [facility] Last Admin: 03/04/18 09:20 Dose: 5 mg Pantoprazole Sodium (Protonix Packets For Oral Suspension -) 40 mg NGT DAILY [facility] Last Admin: 03/04/18 09:23 Dose: 40 mg Senna (Senna Oral Solution -) 8.8 mg GT [facility] Last Admin: 03/03/18 22:23 Dose: 8.8 mg Sertraline HCl (Zoloft -) 50 mg PO DAILY [facility] Last Admin: 03/04/18 09:24 Dose: 50 mg Simethicone (Mylicon Liquid -) 40 mg GT QID PRN PRN Reason: CONSTIPATION Tamsulosin HCl (Flomax -) 0.4 mg PO DAILY@0830 [facility] Last Admin: 03/04/18 09:18 Dose: 0.4 mg - Objective Vital Signs: Vital Signs Temperature 98.2 F 03/04/18 09:00 Pulse Rate 77 03/04/18 09:00 Respiratory Rate 20 03/04/18 12:18 Blood Pressure 124/55 03/04/18 09:00 O2 Sat by Pulse Oximetry (%) 100 03/04/18 09:00 Constitutional: Yes: Well Nourished, Calm Eyes: Yes: WNL HENT: Yes: WNL Neck: Yes: Supple (TRACH) Cardiovascular: Yes: Pulse Irregular, S1, S2 Respiratory: Yes: Rhonchi (SCATTERED RHONCHI) Gastrointestinal: Yes: Normal Bowel Sounds, Soft Extremities: Yes: WNL Edema: No Labs: CBC, BMP 03/04/18 07:00 03/04/18 07:00 INR, PTT INR 1.13 (0.82-1.09) 02/16/18 22:40 Problem List - Problems (1) Anemia Code(s): D64.9 - ANEMIA, UNSPECIFIED (2) Chronic kidney disease, stage 3 Code(s): N18.3 - CHRONIC KIDNEY DISEASE, STAGE 3 (MODERATE) (3) Chronic respiratory failure Code(s): J96.10 - CHRONIC RESPIRATORY FAILURE, UNSP W HYPOXIA OR HYPERCAPNIA Qualifiers: Respiratory failure complication: unspecified whether with hypoxia or hypercapnia Qualified Code(s): J96.10 - Chronic respiratory failure, unspecified whether with hypoxia or hypercapnia (4) PAF (paroxysmal atrial fibrillation) Code(s): I48.0 - PAROXYSMAL ATRIAL FIBRILLATION (5) Renal failure Code(s): N19 - UNSPECIFIED KIDNEY FAILURE Qualifiers: Renal failure chronicity: unspecified chronicity Qualified Code(s): N19 - Unspecified kidney failure (6) Diabetes Code(s): E11.9 - TYPE 2 DIABETES MELLITUS WITHOUT COMPLICATIONS Qualifiers: Diabetes mellitus type: type 2 Diabetes mellitus mcfp insulin use: unspecified termination clerk insulin use status Diabetes mellitus complication status : with kidney complications Diabetes mellitus complication detail: with chronic kidney disease Chronic kidney disease stage: stage 3 (moderate) Qualified Code(s): E11.22 - Type 2 diabetes mellitus with diabetic chronic kidney disease; N18.3 - Chronic kidney disease, stage 3 (moderate) (7) TBI (traumatic brain injury) Code(s): S06.9X9A - UNSP INTRACRANIAL INJURY W LOC OF UNSP DURATION, INIT Qualifiers: Encounter type: sequela Loss of consciousness presence/duration: with LOC of unspecified duration Qualified Code(s): S06.9X9S - Unspecified intracranial injury with loss of consciousness of unspecified duration, sequela (8) Ttxxm-ih-xyjxwcv kidney injury Code(s): N17.9 - ACUTE KIDNEY FAILURE, UNSPECIFIED; N18.9 - CHRONIC KIDNEY DISEASE, UNSPECIFIED (9) Brflx-ly-nkgydcv renal failure Code(s): N17.9 - ACUTE KIDNEY FAILURE, UNSPECIFIED; N18.9 - CHRONIC KIDNEY DISEASE, UNSPECIFIED Qualifiers: Acute renal failure type: unspecified Chronic kidney disease stage: stage 3 (moderate) Qualified Code(s): N17.9 - Acute kidney failure, unspecified; N18.3 - Chronic kidney disease, stage 3 (moderate) (10) Hypotension Code(s): I95.9 - HYPOTENSION, UNSPECIFIED (11) Hypotension Code(s): I95.9 - HYPOTENSION, UNSPECIFIED Assessment/Plan ASSESSMENT AND PLAN: GI Bleed/Gastric Dieulafoy Lesion s/p EGD/epi/cautery Acute Blood Loss Anemia Chronic Respiratory Failure Pneumonia h/o Traumatic Brain Injury Functional Quadriplegia Acute on Chronic Renal Failure Atrial Fibrillation DM Dementia - monitor H/H - protonix - rate control - holding anticoagulation - volume assist control - poor candidate for weaning due to poor mental status - replete free water - enteral feeds as tolerated - DVT/GI prophylaxis DR FORMAN
--- NOTE | 2018-03-04 14:51 | PN ---
Physical Exam: SUBJECTIVE: Patient seen and examined at bedside. Continues to have dark stools. Had large BM this morning. OBJECTIVE: Vital Signs Period Temp Pulse Resp BP Sys/Wills Pulse Ox Last 24 Hr 97.5 F-98.2 F 60-77 14-24 111-128/50-61 98-100 Gen: uncommunicative. No apparent distress. Opened eyes to touch HEENT: NCAT Neck: trach tube in place. No blood at stoma. functioning well Cardio: irregular, tachycardic, norm s1s2, no m/r/g appreciated Lungs:clear breath sounds anteriorly Abd: soft, less distended than yest. No blood at peg site Ext: 1+ pulses, no edema Skin: erythematous rash in groin. punctate papular rash on flanks which becomes confluent toward the back Laboratory Results - last 24 hr 03/03/18 03/03/18 03/03/18 13:35 16:42 21:30 WBC 5.7 RBC 2.70 L Hgb 8.0 L Hct 25.2 L MCV 93.4 MCH 29.6 MCHC 31.7 L RDW 21.5 H Plt Count 145 MPV 10.0 Absolute Neuts (auto) 4.5 Neutrophils % 79.3 Lymphocytes % 12.9 D Monocytes % 5.2 Eosinophils % 2.2 Basophils % 0.4 Nucleated RBC % 0 Hypochromia 1+ Platelet Estimate Adequate Adequate Platelet Comment Anisocytosis 2+ Sodium Potassium Chloride Carbon Dioxide Anion Gap BUN Creatinine Creat Clearance w eGFR POC Glucometer 140 Random Glucose Calcium Total Bilirubin AST ALT Alkaline Phosphatase Total Protein Albumin 03/03/18 03/04/18 03/04/18 22:13 06:17 07:00 WBC 6.9 RBC 2.78 L Hgb 8.5 L Hct 26.0 L MCV 93.4 MCH 30.6 MCHC 32.8 RDW 22.0 H Plt Count 153 MPV 9.9 Absolute Neuts (auto) 5.6 Neutrophils % 81.0 Lymphocytes % 11.5 Monocytes % 5.2 Eosinophils % 2.0 Basophils % 0.3 Nucleated RBC % 0 Hypochromia Platelet Estimate Platelet Comment Anisocytosis Sodium Potassium Chloride Carbon Dioxide Anion Gap BUN Creatinine Creat Clearance w eGFR POC Glucometer 191 113 Random Glucose Calcium Total Bilirubin AST ALT Alkaline Phosphatase Total Protein Albumin 03/04/18 03/04/18 03/04/18 07:00 11:46 14:17 WBC RBC Hgb Hct MCV MCH MCHC RDW Plt Count MPV Absolute Neuts (auto) Neutrophils % Lymphocytes % Monocytes % Eosinophils % Basophils % Nucleated RBC % Hypochromia Platelet Estimate Platelet Comment Anisocytosis Sodium 143 Potassium 4.8 Chloride 112 H Carbon Dioxide 23 Anion Gap 8 BUN 88 H Creatinine 1.8 H Creat Clearance w eGFR 36.04 POC Glucometer 72 121 Random Glucose 91 D Calcium 7.8 L Total Bilirubin 0.3 AST 43 H ALT 62 Alkaline Phosphatase 145 H Total Protein 5.5 L Albumin 2.0 L Active Medications Generic Name Dose Route Start Last Admin Trade Name Freq PRN Reason Stop Dose Admin Acetaminophen 650 mg 03/01/18 15:42 Tylenol - PO Q4H PRN FEVER Artificial Tears 2 drop 03/01/18 22:00 03/04/18 09:20 Artificial Tears OU 2 drop BID LILIA Administration Atorvastatin Calcium 10 mg 03/01/18 22:00 03/03/18 22:22 Lipitor - GT 10 mg HS LILIA Administration Collagenase 1 applic 03/02/18 10:00 03/04/18 09:24 Santyl - TP 1 applic DAILY L[facility] Administration Diltiazem HCl 10 mg 03/01/18 15:42 03/02/18 09:45 Cardizem Injection - IVPUSH 10 mg Q6H PRN Administration TACHYCARDIA Docusate Sodium 100 mg 03/01/18 15:42 Colace Liquid - PO DAILY PRN CONSTIPATION Ferrous Sulfate 300 mg 03/02/18 10:00 03/04/18 09:21 Feosol GT 300 mg DAILY LILIA Administration Insulin Aspart 1 vial 03/01/18 16:30 03/04/18 11:48 Novolog Vial Sliding Scale - SQ Not Given ACHS [facility] Protocol Insulin Detemir 16 units 03/01/18 22:00 03/03/18 22:22 Levemir Vial SQ 16 unit HS LILIA Administration Levothyroxine Sodium 37.5 mcg 03/02/18 07:00 03/04/18 06:54 Synthroid - PEG 37.5 mcg DAILY@0700 [facility] Administration Metoprolol Tartrate 25 mg 03/02/18 22:00 03/04/18 09:22 Lopressor - PO 25 mg BID LIL[facility] Administration Non-Formulary Medication 1 each 03/02/18 10:00 06/28/18 09:22 Non-Formulary Med GT 1 each DAILY LILIA Administration Nystatin 1 applic 03/01/18 22:00 03/04/18 09:23 Nystop Powder - TP 1 applic BID L[facility] Administration Oxybutynin Chloride 5 mg 03/01/18 22:00 03/04/18 09:20 Ditropan - NGT 5 mg BID LILIA Administration Pantoprazole Sodium 40 mg 03/02/18 10:00 03/04/18 09:23 Protonix Packets For Oral Suspension - NGT 40 mg DAILY [facility] Administration Senna 8.8 mg 03/02/18 22:00 03/03/18 22:23 Senna Oral Solution - GT 8.8 mg HS L[facility] Administration Sertraline HCl 50 mg 03/02/18 21:25 03/04/18 09:24 Zoloft - PO 50 mg DAILY [facility] Administration Simethicone 40 mg 03/02/18 14:35 Mylicon Liquid - GT QID PRN CONSTIPATION Tamsulosin HCl 0.4 mg 03/02/18 08:30 03/04/18 09:18 Flomax - PO 0.4 mg DAILY@0830 L[facility] Administration ASSESSMENT/PLAN: Pt is an 87 y/o M with PMH significant for 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 Pt is admitted to Med-Surg. #Afib -Pt alternates between fast and slow Afib. rate varies between 50 and 150 -Has been treated previously with Lopressor PRN. -Cardizem stopped -Lopressor increased to 25mg BID -HR controlled at this time -Cardio on board #Abdominal distension -intermittent large volume stools reported -abdomen soft, distended, tympanic -NPO -2nd CTAP neg for volvulus -Had BM this am #GIB: likely Resolved -fobt pos -anemia -counts were dropping despite prbcs and epo -GI consulted -gastric lavage with pink/red fluid -Pt had a scope sig for bleeding AVM -Discussed with GI -G-tube feeds held temporarily over the weekend. Currently running -Pt continues to have black bm. Likely old blood. -Hb increased to 8.5 today #Asp PNA -ID on board -Sputum culture pos for P aerug. Pseudo fluorescens -Zosyn d/c'ed -Bactrim d/c'ed #Anemia -was transfused 7 PRBCs total -Hb stable last 2 days -Given Epo (02/20/2018) -Heme on board: will give weekly Epo -No obvious active bleed -per son, had negative colonoscopy 2 years ago #Acute on chronic resp failure -likely 2/2 aspiration PNA -at baseline vent settings: AC Tv 450, RR 14, FiO2 28, PEEP 5 -Initially on Medrol 40. d/c'ed -Prednisone 40 -Pulm on board: poor weaning candidate #Acute on CKD - Laser Operator stabilized - BUN up-trending -? etiology. ?steroids vs GIB (most likely) vs dehydration (likely component) -Nepro on board: prerenal. Adjusted fluids #Hypernatremia: resolved -fluids modified by nephro -Nephro input appreciated #Hypokalemia: resolved -Fluids monitored and adjusted by nephro #Thrombophilia - Resolved -plt wnl #DM -Levemir was increased -ISS -glucose continues to be elevated in 150s -titrate Insulin #TBI -s/p trach and PEG -secondary paraplegia #Hypothyroid -c/w synthroid #Incontinence -christopher -flomax -oxybutinin #depression -zoloft #FEN -not on fluids -lytes wnl -Nutrition: via G-tube. flushes #PPx -held in setting of possible bleed #Dispo -med surg Elia Prieto MD PGY-1 IM Visit type - Emergency Visit Emergency Visit: No - New Patient This patient is new to me today: No - Critical Care Critical Care patient: No - Discharge Referral Referred to [facility] Med P.C.: No
--- NOTE | 2018-03-04 15:32 | PN ---
Teaching Attending Note Name of Resident: Elia Prieto ATTENDING PHYSICIAN STATEMENT I saw and evaluated the patient. I reviewed the resident's note and discussed the case with the resident. I agree with the resident's findings and plan as documented. SUBJECTIVE:resting comfortable OBJECTIVE: Last Vital Signs Temp Pulse Resp BP Pulse Ox 98.5 F 67 16 122/54 100 03/04/18 14:10 03/04/18 14:10 03/04/18 14:10 03/04/18 14:10 03/04/18 09:00 General NAD spontaneous eye opening CV S1 S2 RRR no murmur/rub/gallop Lungs CTA anteriorly Abdomen soft. NT/ND +PEG no bleeding noted around PEG normoactive BS Extremities no pedal edema. contracted B/L upper extremities skin macular rash on flanks less erythematous, L flank appears more cofluent, not raised. 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 Admitted on 02/17/[address] [facility] chronic respiratory failure and severe anemia with a hg of 5.5 and hypotension. 1. Acute on chronic respiratory failure- due to aspiration PNA. now improved. has returned to baseline vent settings. not weanable. off steroids. pulmonary on board 2. Aspiration PNA-completed extended course of zosyn., off all abx now. ID on board 3. macular rash-possible drug reaction vs heat rash. bactrim d/c. appears to be less erythematous today. will monitor. 4. distended abdomen-remains distended however stable. rectal tube in place and having dark soft stools. tolerating TF. continue 5. Multifactorial anemia with Upper GI bleed- s/p EGD with Diluefoy lesion s/p heat probe and epi. s/p 10 units PRBC this hospital stay. Hgb stable. no indication for transfusion. hematology on board. on iron supplementation 6. Acute on CKD- hypoperfusion. now trending down. elevated BUN likely due to GI bleed. now off steroids. cont to monitor. nephro on board 7. new onset afib- rate controlled.cont metoprolol. not a candidate for anticoagulation iwth recent GI bleed. echo reviewed. cardio on board 8. Hypernatremia- resolved. cont water flushes. monitor 9. Thrombophilia-stable. off medications 10. DM-improved cont levemir. cont iss. titrate as needed to optimize control 11. TBI- s/p trach and PEG 12. 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 13. legally blind and deaf 14. hypothyroid- on Lt4 15. urinary incontinence- with chronic indwelling christopher. cont oxybutin/flomax 16. depression- on zoloft 17. DVT ppx- SCD. would hold pharmacologic anticoagulation wwith recent GI bleed 18. medically optimized at this time. daughter requested LTACH placement and referral sent out. OTIS also sent to SNF.
--- NOTE | 2018-03-04 15:49 | PN ---
Progress Note, Physician History of Present Illness: no specific changes over night patient continues to be on resp support slightly more alert - Current Medication List Current Medications: Active Medications Acetaminophen (Tylenol -) 650 mg PO Q4H PRN PRN Reason: FEVER Artificial Tears (Artificial Tears) 2 drop OU BID [facility] Last Admin: 03/04/18 09:20 Dose: 2 drop Atorvastatin Calcium (Lipitor -) 10 mg GT HS [facility] Last Admin: 03/03/18 22:22 Dose: 10 mg Collagenase (Santyl -) 1 applic TP DAILY [facility] Last Admin: 03/04/18 09:24 Dose: 1 applic Diltiazem HCl (Cardizem Injection -) 10 mg IVPUSH Q6H PRN PRN Reason: TACHYCARDIA Last Admin: 03/02/18 09:45 Dose: 10 mg Docusate Sodium (Colace Liquid -) 100 mg PO DAILY PRN PRN Reason: CONSTIPATION Ferrous Sulfate (Feosol) 300 mg GT DAILY [facility] Last Admin: 03/04/18 09:21 Dose: 300 mg Insulin Aspart (Novolog Vial Sliding Scale -) 1 vial SQ [facility]; Protocol Last Admin: 03/04/18 11:48 Dose: Not Given Insulin Detemir (Levemir Vial) 16 units SQ [facility] Last Admin: 03/03/18 22:22 Dose: 16 unit Levothyroxine Sodium (Synthroid -) 37.5 mcg PEG DAILY@0700 [facility] Last Admin: 03/04/18 06:54 Dose: 37.5 mcg Metoprolol Tartrate (Lopressor -) 25 mg PO BID [facility] Last Admin: 03/04/18 09:22 Dose: 25 mg Non-Formulary Medication (Non-Formulary Med) 1 each GT DAILY [facility] Last Admin: 03/04/18 09:22 Dose: 1 each Nystatin (Nystop Powder -) 1 applic TP BID [facility] Last Admin: 03/04/18 09:23 Dose: 1 applic Oxybutynin Chloride (Ditropan -) 5 mg NGT BID [facility] Last Admin: 03/04/18 09:20 Dose: 5 mg Pantoprazole Sodium (Protonix Packets For Oral Suspension -) 40 mg NGT DAILY [facility] Last Admin: 03/04/18 09:23 Dose: 40 mg Senna (Senna Oral Solution -) 8.8 mg GT [facility] Last Admin: 03/03/18 22:23 Dose: 8.8 mg Sertraline HCl (Zoloft -) 50 mg PO DAILY [facility] Last Admin: 03/04/18 09:24 Dose: 50 mg Simethicone (Mylicon Liquid -) 40 mg GT QID PRN PRN Reason: CONSTIPATION Tamsulosin HCl (Flomax -) 0.4 mg PO DAILY@0830 [facility] Last Admin: 03/04/18 09:18 Dose: 0.4 mg - Objective Vital Signs: Vital Signs Temperature 98.5 F 03/04/18 14:10 Pulse Rate 67 03/04/18 14:10 Respiratory Rate 15 03/04/18 15:27 Blood Pressure 122/54 03/04/18 14:10 O2 Sat by Pulse Oximetry (%) 100 03/04/18 09:00 Constitutional: Yes: No Distress, Calm Neck: Yes: Other Cardiovascular: Yes: Pulse Irregular Respiratory: Yes: Other (on vent,trach collar) Gastrointestinal: Yes: Soft, Other (peg tube in place) Musculoskeletal: Yes: WNL Extremities: Yes: WNL Edema: LLE: Trace, RLE: Trace Neurological: Yes: Alert, Other Labs: CBC, BMP 03/04/18 07:00 03/04/18 07:00 INR, PTT INR 1.13 (0.82-1.09) 02/16/18 22:40 Assessment/Plan Problem List - Problems (1) Anemia Code(s): D64.9 - ANEMIA, UNSPECIFIED (2) Chronic kidney disease, stage 3 Code(s): N18.3 - CHRONIC KIDNEY DISEASE, STAGE 3 (MODERATE) (3) Chronic respiratory failure Code(s): J96.10 - CHRONIC RESPIRATORY FAILURE, UNSP W HYPOXIA OR HYPERCAPNIA Qualifiers: Respiratory failure complication: unspecified whether with hypoxia or hypercapnia Qualified Code(s): J96.10 - Chronic respiratory failure, unspecified whether with hypoxia or hypercapnia (4) PAF (paroxysmal atrial fibrillation) Code(s): I48.0 - PAROXYSMAL ATRIAL FIBRILLATION (5) Renal failure Code(s): N19 - UNSPECIFIED KIDNEY FAILURE Qualifiers: Renal failure chronicity: unspecified chronicity Qualified Code(s): N19 - Unspecified kidney failure (6) Diabetes Code(s): E11.9 - TYPE 2 DIABETES MELLITUS WITHOUT COMPLICATIONS (7) TBI (traumatic brain injury) Code(s): S06.9X9A - UNSP INTRACRANIAL INJURY W LOC OF UNSP DURATION, INIT (8) [id number] kidney injury Code(s): N17.9 - ACUTE KIDNEY FAILURE, UNSPECIFIED; N18.9 - CHRONIC KIDNEY DISEASE, UNSPECIFIED (9) [id number] renal failure Code(s): N17.9 - ACUTE KIDNEY FAILURE, UNSPECIFIED; N18.9 - CHRONIC KIDNEY DISEASE, UNSPECIFIED (10) Hypotension Code(s): I95.9 - HYPOTENSION, UNSPECIFIED (11) Hypotension Code(s): I95.9 - HYPOTENSION, UNSPECIFIED 12 gi bleed 13 difuleoy lesion 14 rash I plan continue to monitor off of abx nutrition rest as per primary care patient remaining stable
--- NOTE | 2018-03-04 22:46 | PN ---
Progress Note, Physician Chief Complaint: Pt on ventilator/trached; eyes open. History of Present Illness: The patient is an 87 year old white male, with a significant past medical history of traumatic fall (s/p neck (C4,5, and 6)/back surgery, tracheotomy placement now ventilator dependent, and PEG tube placement), frequent pneumonia , emphysema, A-fib, diastolic CHF, DM, dementia, renal failure, nonverbal TBI, paraplegic, legally blind and deaf, who presents to the emergency department via EMS from [facility] with, 3 days of hypotension. Now transferred to ICU after being found to have bright red blood on gastric tube lavage that led to PRBCs and heater probe coagulation. Allergies: NKA Social History: Former smoker (Quit 35 years ago). Denies EtOH use and recreational drug use. - Current Medication List Current Medications: Active Medications Acetaminophen (Tylenol -) 650 mg PO Q4H PRN PRN Reason: FEVER Artificial Tears (Artificial Tears) 2 drop OU BID [facility] Last Admin: 03/04/18 09:20 Dose: 2 drop Atorvastatin Calcium (Lipitor -) 10 mg GT HS [facility] Last Admin: 03/03/18 22:22 Dose: 10 mg Collagenase (Santyl -) 1 applic TP DAILY [facility] Last Admin: 03/04/18 09:24 Dose: 1 applic Diltiazem HCl (Cardizem Injection -) 10 mg IVPUSH Q6H PRN PRN Reason: TACHYCARDIA Last Admin: 03/02/18 09:45 Dose: 10 mg Docusate Sodium (Colace Liquid -) 100 mg PO DAILY PRN PRN Reason: CONSTIPATION Ferrous Sulfate (Feosol) 300 mg GT DAILY [facility] Last Admin: 03/04/18 09:21 Dose: 300 mg Insulin Aspart (Novolog Vial Sliding Scale -) 1 vial SQ [facility]; Protocol Last Admin: 03/04/18 17:02 Dose: Not Given Insulin Detemir (Levemir Vial) 16 units SQ [facility] Last Admin: 03/03/18 22:22 Dose: 16 unit Levothyroxine Sodium (Synthroid -) 37.5 mcg PEG DAILY@0700 [facility] Last Admin: 03/04/18 06:54 Dose: 37.5 mcg Metoprolol Tartrate (Lopressor -) 25 mg PO BID [facility] Last Admin: 03/04/18 09:22 Dose: 25 mg Non-Formulary Medication (Non-Formulary Med) 1 each GT DAILY [facility] Last Admin: 03/04/18 09:22 Dose: 1 each Nystatin (Nystop Powder -) 1 applic TP BID [facility] Last Admin: 03/04/18 09:23 Dose: 1 applic Oxybutynin Chloride (Ditropan -) 5 mg NGT BID [facility] Last Admin: 03/04/18 09:20 Dose: 5 mg Pantoprazole Sodium (Protonix Packets For Oral Suspension -) 40 mg NGT DAILY [facility] Last Admin: 03/04/18 09:23 Dose: 40 mg Senna (Senna Oral Solution -) 8.8 mg GT HS [facility] Last Admin: 03/03/18 22:23 Dose: 8.8 mg Sertraline HCl (Zoloft -) 50 mg PO DAILY [facility] Last Admin: 03/04/18 09:24 Dose: 50 mg Simethicone (Mylicon Liquid -) 40 mg GT QID PRN PRN Reason: CONSTIPATION Tamsulosin HCl (Flomax -) 0.4 mg PO DAILY@0830 [facility] Last Admin: 03/04/18 09:18 Dose: 0.4 mg - Objective Vital Signs: Vital Signs Temperature 98.5 F 03/04/18 14:10 Pulse Rate 67 03/04/18 14:10 Respiratory Rate 17 03/04/18 22:03 Blood Pressure 122/54 03/04/18 14:10 O2 Sat by Pulse Oximetry (%) 100 03/04/18 09:00 Constitutional: Yes: Thin HENT: Yes: Other Neck: Yes: Decreased ROM Cardiovascular: Yes: Pulse Irregular, S1 (varies in intensity) Respiratory: Yes: Diminished Gastrointestinal: Yes: Soft, Other (PEG) Genitourinary: No: Anuria Breast(s): Yes: WNL Musculoskeletal: Yes: Muscle Weakness Extremities: Yes: Cool Edema: Yes Edema: LLE: Trace, RLE: Trace Peripheral Pulses WNL: Yes Integumentary: Yes: WNL Neurological: Yes: Weakness Psychiatric: Yes: Other (dementia) Labs: CBC, BMP 03/04/18 07:00 03/04/18 07:00 INR, PTT INR 1.13 (0.82-1.09) 02/16/18 22:40 Abnormal Lab Results 06/28/18 06/28/18 07:00 07:00 RBC 2.78 L Hgb 8.5 L Hct 26.0 L RDW 22.0 H Chloride 112 H BUN 88 H Creatinine 1.8 H Calcium 7.8 L AST 43 H Alkaline Phosphatase 145 H Total Protein 5.5 L Albumin 2.0 L Problem List - Problems (1) Anemia Assessment/Plan: s/p EGD, cauterization, and PRBCs. Maintain hydration. F/u BUn/Cr, Hb (8.5 today). Code(s): D64.9 - ANEMIA, UNSPECIFIED Qualifiers: Anemia type: due to chronic kidney disease Chronic kidney disease stage: unspecified stage Qualified Code(s): N18.9 - Chronic kidney disease, unspecified; D63.1 - Anemia in chronic kidney disease (2) Chronic kidney disease, stage 3 Assessment/Plan: f/u with cement cutter; Improving BUN/Cr since GI cauterization. Code(s): N18.3 - CHRONIC KIDNEY DISEASE, STAGE 3 (MODERATE) (3) Chronic respiratory failure Assessment/Plan: Ventilator dependent; on trach. On Assist control. Code(s): J96.10 - CHRONIC RESPIRATORY FAILURE, UNSP W HYPOXIA OR HYPERCAPNIA Qualifiers: Respiratory failure complication: unspecified whether with hypoxia or hypercapnia Qualified Code(s): J96.10 - Chronic respiratory failure, unspecified whether with hypoxia or hypercapnia (4) Hematuria Code(s): R31.9 - HEMATURIA, UNSPECIFIED (5) PAF (paroxysmal atrial fibrillation) Assessment/Plan: EKG 02/23/18: AF with RVR (HR 150 bpm); now has HR in 80s bpm. Increased metoprolol to 25 mg bid (pt has required occasional IV diltiazem for rapid VR); f/u HR and BP, and increase metoprolol as tolerated. If pt becomes profoundly bradycardia, will have to consider PPM. anticoagulation held due to GI bleed. TSH 3.59 recently. Code(s): I48.0 - PAROXYSMAL ATRIAL FIBRILLATION (6) S/P percutaneous endoscopic gastrostomy (PEG) tube placement Assessment/Plan: site appears intact Code(s): Z93.1 - GASTROSTOMY STATUS (7) Acute on chronic diastolic CHF (congestive heart failure) Code(s): I50.33 - ACUTE ON CHRONIC DIASTOLIC (CONGESTIVE) HEART FAILURE (8) Sinus bradycardia Code(s): R00.1 - BRADYCARDIA, UNSPECIFIED (9) TBI (traumatic brain injury) Code(s): S06.9X9A - UNSP INTRACRANIAL INJURY W LOC OF UNSP DURATION, INIT Qualifiers: Encounter type: sequela Loss of consciousness presence/duration: with LOC of unspecified duration Qualified Code(s): S06.9X9S - Unspecified intracranial injury with loss of consciousness of unspecified duration, sequela (10) Severe mitral regurgitation Code(s): I34.0 - NONRHEUMATIC MITRAL (VALVE) INSUFFICIENCY (11) Hypokalemia Assessment/Plan: Keep K+ 4-4.5 (4.8 today). F/u Mg, and keep 2-2.3 Keep PO4 2.5-3.5 Code(s): E87.6 - HYPOKALEMIA (12) Hypoalbuminemia Code(s): E88.09 - OTH DISORDERS OF PLASMA-PROTEIN METABOLISM, NEC
[2018-03-04] MEDS: INSULIN (LEVEMIR) 100 UNITS/ML UNITS SQ SCH (23:21)
[2018-03-04] MEDS: SENNOSIDES 8.8 MG/5 ML BULK BOTTLE GT SCH (23:21)
[2018-03-04] MEDS: ATORVASTATIN CA 10 MG TABLET (FP) GT SCH (23:24)
[2018-03-05] MEDS: LEVOTHYROXINE NA 25 MCG TABLET (FP) PEG SCH (06:28)
[2018-03-05] MEDS: INSULIN SLIDING SCALE (NOVOLOG) 1 VIAL SQ SCH ×4 (06:31→22:12)
[2018-03-05 08:47] LABS: BASO % 0.2 % (0-2.0); EOS % 1.5 % (0-4.5); HEMOGLOBIN 8.1 GM/dL (11.7-16.9); LYMPH % 13.2 % (8-40); MCH 30.2 pg (25.7-33.7); MCHC 32.4 g/dl (32.0-35.9); MEAN CELL VOLUME 93.2 fl (80-96); MEAN PLT VOLUME 9.5 fl (7.5-11.1); MONO % 5.4 % (3.8-10.2); NEUT % 79.7 % (42.8-82.8); PLATELET COUNT 145 K/MM3 (134-434); RBC 2.68 M/mm3 (4.00-5.60); RDW 21.6 % (11.9-15.9); WHITE BLOOD COUNT 5.8 K/mm3 (4.0-10.0)
[2018-03-05 09:18] LABS: BLOOD UREA NITROGEN 78 mg/dL (7-18); CALCIUM 7.6 mg/dL (8.5-10.1); CHLORIDE 112 mmol/L (98-107); POTASSIUM 4.6 mmol/L (3.5-5.1); SODIUM 144 mmol/L (136-145)
[2018-03-05 09:23] LABS: ALK PHOS 138 U/L (45-117); ANION GAP 8 (8-16); BILIRUBIN,TOTAL 0.2 mg/dL (0.2-1.0); CO2 24 mmol/L (21-32); CREATININE 1.9 mg/dL (0.7-1.3); GLUCOSE,RANDOM 90 mg/dL (74-106); SGOT/AST 51 U/L (15-37); SGPT/ALT 61 U/L (12-78); TOT PROT 5.4 g/dl (6.4-8.2)
[2018-03-05] MEDS: TAMSULOSIN HCL 0.4 MG CAP.ER.24H (FP) PO SCH (09:25)
[2018-03-05] MEDS ORDERED: PT OWN MED DRAWER 7, Y5N ONE ×2 (10:25→21:23)
[2018-03-05] MEDS: OXYBUTYNIN CHLORIDE 5 MG TABLET NGT SCH ×2 (10:43→22:14)
[2018-03-05] MEDS: FERROUS SO4 300 MG/5 ML ORAL SOLN UNIT DOSE CUPS GT SCH (10:43)
[2018-03-05] MEDS: METOPROLOL TARTRATE 25 MG TABLET (FP) PO SCH ×2 (10:43→22:14)
[2018-03-05] MEDS: PANTOPRAZOLE SOD 40 MG SUSPENSION PACKET NGT SCH (10:43)
[2018-03-05] MEDS: SERTRALINE HCL 25 MG TABLET (FP) PO SCH (10:43)
[2018-03-05] MEDS: NON-FORMULARY MED GT SCH (10:44)
[2018-03-05] MEDS: ARTIFICIAL TEARS (POLYVINYL ALCOHOL 1.4%) OPTH DROPS OU SCH ×2 (10:44→22:14)
[2018-03-05] MEDS: COLLAGENASE CLOSTRIDIUM HIST. 30 GRAMS TUBE TP SCH (10:58)
[2018-03-05] MEDS: NYSTATIN POWDER 100,000 UNITS/GM - 15 GM TOPICAL POWDER TP SCH ×2 (10:58→22:15)
--- NOTE | 2018-03-05 12:08 | PN ---
Progress Note, Physician History of Present Illness: 87M w/ pmh of traumatic fall (s/p neck (C4,5, and 6)/back surgery, tracheotomy placement now ventilator dependent, and PEG tube placement), frequent pneumonia , emphysema, A-fib, CHF, DM, dementia, renal failure, nonverbal TBI, paraplegia , and legal blindness and deafness, who presents to the emergency department via EMS from [facility] with 3 days of hypotension. As per patients son , his blood pressure has been decreasing over the past few days. He reports that at baseline, his systolic is between 110-119 in the mornings and between 100-109 at night. Pt has failed 5 weaning trials in the last few days, and it was noticed that there was blood around the tracheostomy site when suctioning. Pt' son denies recent fevers, chills, chest pain, emesis, hematemesis, melena, and hematochezia in pt. - Current Medication List Current Medications: Active Medications Acetaminophen (Tylenol -) 650 mg PO Q4H PRN PRN Reason: FEVER Artificial Tears (Artificial Tears) 2 drop OU BID [facility] Last Admin: 03/05/18 10:44 Dose: 2 drop Atorvastatin Calcium (Lipitor -) 10 mg GT HS [facility] Last Admin: 03/04/18 23:24 Dose: 10 mg Collagenase (Santyl -) 1 applic TP DAILY [facility] Last Admin: 03/04/18 09:24 Dose: 1 applic Diltiazem HCl (Cardizem Injection -) 10 mg IVPUSH Q6H PRN PRN Reason: TACHYCARDIA Last Admin: 03/02/18 09:45 Dose: 10 mg Docusate Sodium (Colace Liquid -) 100 mg PO DAILY PRN PRN Reason: CONSTIPATION Ferrous Sulfate (Feosol) 300 mg GT DAILY [facility] Last Admin: 03/05/18 10:43 Dose: 300 mg Insulin Aspart (Novolog Vial Sliding Scale -) 1 vial SQ [facility]; Protocol Last Admin: 03/05/18 06:31 Dose: Not Given Insulin Detemir (Levemir Vial) 14 units SQ [facility] Levothyroxine Sodium (Synthroid -) 37.5 mcg PEG DAILY@0700 [facility] Last Admin: 03/05/18 06:28 Dose: 37.5 mcg Metoprolol Tartrate (Lopressor -) 25 mg PO BID [facility] Last Admin: 03/05/18 10:43 Dose: 25 mg Non-Formulary Medication (Non-Formulary Med) 1 each GT DAILY [facility] Last Admin: 03/05/18 10:44 Dose: 1 each Nystatin (Nystop Powder -) 1 applic TP BID [facility] Last Admin: 03/04/18 23:50 Dose: 1 applic Oxybutynin Chloride (Ditropan -) 5 mg NGT BID [facility] Last Admin: 03/05/18 10:43 Dose: 5 mg Pantoprazole Sodium (Protonix Packets For Oral Suspension -) 40 mg NGT DAILY [facility] Last Admin: 03/05/18 10:43 Dose: 40 mg Senna (Senna Oral Solution -) 8.8 mg GT HS [facility] Last Admin: 03/04/18 23:21 Dose: 8.8 mg Sertraline HCl (Zoloft -) 50 mg PO DAILY [facility] Last Admin: 03/05/18 10:43 Dose: 50 mg Simethicone (Mylicon Liquid -) 40 mg GT QID PRN PRN Reason: CONSTIPATION Tamsulosin HCl (Flomax -) 0.4 mg PO DAILY@0830 [facility] Last Admin: 03/05/18 09:25 Dose: 0.4 mg - Objective Vital Signs: Vital Signs Temperature 98.1 F 03/05/18 10:00 Pulse Rate 72 03/05/18 10:00 Respiratory Rate 17 03/05/18 10:00 Blood Pressure 124/58 03/05/18 10:00 O2 Sat by Pulse Oximetry (%) 100 03/04/18 21:00 Eyes: Yes: WNL, Conjunctiva Clear, EOM Intact HENT: Yes: WNL, Atraumatic, Normocephalic Neck: Yes: WNL, Supple, Trachea Midline Cardiovascular: Yes: WNL, Regular Rate and Rhythm Respiratory: Yes: WNL, Regular, Diminished, Mechanically Ventilated Gastrointestinal: Yes: WNL, Normal Bowel Sounds Genitourinary: Yes: WNL Musculoskeletal: Yes: WNL Extremities: Yes: WNL Edema: No Integumentary: Yes: WNL ...Motor Strength: WNL Psychiatric: Yes: WNL Labs: CBC, BMP 03/05/18 08:29 03/05/18 08:29 INR, PTT INR 1.13 (0.82-1.09) 02/16/18 22:40 Assessment/Plan - Problems (1) Anemia Assessment/Plan: s/p EGD, cauterization, and PRBCs. Maintain hydration. F/u BUn/Cr, Hb (8.5 today). Code(s): D64.9 - ANEMIA, UNSPECIFIED Qualifiers: Anemia type: due to chronic kidney disease Chronic kidney disease stage: unspecified stage Qualified Code(s): N18.9 - Chronic kidney disease, unspecified; D63.1 - Anemia in chronic kidney disease (2) Chronic kidney disease, stage 3 Assessment/Plan: f/u with director of reservations; Improving BUN/Cr since GI cauterization. Code(s): N18.3 - CHRONIC KIDNEY DISEASE, STAGE 3 (MODERATE) (3) Chronic respiratory failure Assessment/Plan: Ventilator dependent; on trach. On Assist control. Code(s): J96.10 - CHRONIC RESPIRATORY FAILURE, UNSP W HYPOXIA OR HYPERCAPNIA Qualifiers: Respiratory failure complication: unspecified whether with hypoxia or hypercapnia Qualified Code(s): J96.10 - Chronic respiratory failure, unspecified whether with hypoxia or hypercapnia (4) Hematuria Code(s): R31.9 - HEMATURIA, UNSPECIFIED (5) PAF (paroxysmal atrial fibrillation) Assessment/Plan: EKG 02/23/18: AF with RVR (HR 150 bpm); now has HR in 80s bpm. Increased metoprolol to 25 mg bid (pt has required occasional IV diltiazem for rapid VR); f/u HR and BP, and increase metoprolol as tolerated. If pt becomes profoundly bradycardia, will have to consider PPM. anticoagulation held due to GI bleed. TSH 3.59 recently. Code(s): I48.0 - PAROXYSMAL ATRIAL FIBRILLATION (6) S/P percutaneous endoscopic gastrostomy (PEG) tube placement Assessment/Plan: site appears intact Code(s): Z93.1 - GASTROSTOMY STATUS (7) Acute on chronic diastolic CHF (congestive heart failure) Code(s): I50.33 - ACUTE ON CHRONIC DIASTOLIC (CONGESTIVE) HEART FAILURE (8) Sinus bradycardia Code(s): R00.1 - BRADYCARDIA, UNSPECIFIED (9) TBI (traumatic brain injury) Code(s): S06.9X9A - UNSP INTRACRANIAL INJURY W LOC OF UNSP DURATION, INIT Qualifiers: Encounter type: sequela Loss of consciousness presence/duration: with LOC of unspecified duration Qualified Code(s): S06.9X9S - Unspecified intracranial injury with loss of consciousness of unspecified duration, sequela (10) Severe mitral regurgitation Code(s): I34.0 - NONRHEUMATIC MITRAL (VALVE) INSUFFICIENCY (11) Hypokalemia Assessment/Plan: Keep K+ 4-4.5 (4.8 today). F/u Mg, and keep 2-2.3 Keep PO4 2.5-3.5 Code(s): E87.6 - HYPOKALEMIA (12) Hypoalbuminemia Code(s): E88.09 - OTH DISORDERS OF PLASMA-PROTEIN METABOLISM, NEC
--- NOTE | 2018-03-05 12:10 | PN ---
Progress Note, Physician History of Present Illness: no new issues except he has some distension peg tube site slightly cellulitic - Current Medication List Current Medications: Active Medications Acetaminophen (Tylenol -) 650 mg PO Q4H PRN PRN Reason: FEVER Artificial Tears (Artificial Tears) 2 drop OU BID [facility] Last Admin: 03/05/18 10:44 Dose: 2 drop Atorvastatin Calcium (Lipitor -) 10 mg GT HS [facility] Last Admin: 03/04/18 23:24 Dose: 10 mg Collagenase (Santyl -) 1 applic TP DAILY [facility] Last Admin: 03/04/18 09:24 Dose: 1 applic Diltiazem HCl (Cardizem Injection -) 10 mg IVPUSH Q6H PRN PRN Reason: TACHYCARDIA Last Admin: 03/02/18 09:45 Dose: 10 mg Docusate Sodium (Colace Liquid -) 100 mg PO DAILY PRN PRN Reason: CONSTIPATION Ferrous Sulfate (Feosol) 300 mg GT DAILY [facility] Last Admin: 03/05/18 10:43 Dose: 300 mg Insulin Aspart (Novolog Vial Sliding Scale -) 1 vial SQ [facility]; Protocol Last Admin: 03/05/18 06:31 Dose: Not Given Insulin Detemir (Levemir Vial) 14 units SQ [facility] Levothyroxine Sodium (Synthroid -) 37.5 mcg PEG DAILY@0700 [facility] Last Admin: 03/05/18 06:28 Dose: 37.5 mcg Metoprolol Tartrate (Lopressor -) 25 mg PO BID [facility] Last Admin: 03/05/18 10:43 Dose: 25 mg Non-Formulary Medication (Non-Formulary Med) 1 each GT DAILY [facility] Last Admin: 03/05/18 10:44 Dose: 1 each Nystatin (Nystop Powder -) 1 applic TP BID [facility] Last Admin: 03/04/18 23:50 Dose: 1 applic Oxybutynin Chloride (Ditropan -) 5 mg NGT BID [facility] Last Admin: 03/05/18 10:43 Dose: 5 mg Pantoprazole Sodium (Protonix Packets For Oral Suspension -) 40 mg NGT DAILY [facility] Last Admin: 03/05/18 10:43 Dose: 40 mg Senna (Senna Oral Solution -) 8.8 mg GT [facility] Last Admin: 03/04/18 23:21 Dose: 8.8 mg Sertraline HCl (Zoloft -) 50 mg PO DAILY [facility] Last Admin: 03/05/18 10:43 Dose: 50 mg Simethicone (Mylicon Liquid -) 40 mg GT QID PRN PRN Reason: CONSTIPATION Tamsulosin HCl (Flomax -) 0.4 mg PO DAILY@0830 [facility] Last Admin: 03/05/18 09:25 Dose: 0.4 mg - Objective Vital Signs: Vital Signs Temperature 98.1 F 03/05/18 10:00 Pulse Rate 72 03/05/18 10:00 Respiratory Rate 17 03/05/18 10:00 Blood Pressure 124/58 03/05/18 10:00 O2 Sat by Pulse Oximetry (%) 100 03/04/18 21:00 Constitutional: Yes: No Distress, Calm Cardiovascular: Yes: Regular Rate and Rhythm Respiratory: Yes: Mechanically Ventilated, Other (trach collar) Gastrointestinal: Yes: Normal Bowel Sounds, Soft, Other (surrounding erythema around the peg tube) Musculoskeletal: Yes: WNL Extremities: Yes: Other Edema: LLE: Trace, RLE: Trace Neurological: Yes: Other Psychiatric: Yes: Other Labs: CBC, BMP 03/05/18 08:29 03/05/18 08:29 INR, PTT INR 1.13 (0.82-1.09) 02/16/18 22:40 Assessment/Plan Problem List - Problems (1) Anemia Code(s): D64.9 - ANEMIA, UNSPECIFIED (2) Chronic kidney disease, stage 3 Code(s): N18.3 - CHRONIC KIDNEY DISEASE, STAGE 3 (MODERATE) (3) Chronic respiratory failure Code(s): J96.10 - CHRONIC RESPIRATORY FAILURE, UNSP W HYPOXIA OR HYPERCAPNIA Qualifiers: Respiratory failure complication: unspecified whether with hypoxia or hypercapnia Qualified Code(s): J96.10 - Chronic respiratory failure, unspecified whether with hypoxia or hypercapnia (4) PAF (paroxysmal atrial fibrillation) Code(s): I48.0 - PAROXYSMAL ATRIAL FIBRILLATION (5) Renal failure Code(s): N19 - UNSPECIFIED KIDNEY FAILURE Qualifiers: Renal failure chronicity: unspecified chronicity Qualified Code(s): N19 - Unspecified kidney failure (6) Diabetes Code(s): E11.9 - TYPE 2 DIABETES MELLITUS WITHOUT COMPLICATIONS (7) TBI (traumatic brain injury) Code(s): S06.9X9A - UNSP INTRACRANIAL INJURY W LOC OF UNSP DURATION, INIT (8) Kqdya-eb-hxettan kidney injury Code(s): N17.9 - ACUTE KIDNEY FAILURE, UNSPECIFIED; N18.9 - CHRONIC KIDNEY DISEASE, UNSPECIFIED (9) Fkxrk-[id number] renal failure Code(s): N17.9 - ACUTE KIDNEY FAILURE, UNSPECIFIED; N18.9 - CHRONIC KIDNEY DISEASE, UNSPECIFIED (10) Hypotension Code(s): I95.9 - HYPOTENSION, UNSPECIFIED (11) Hypotension Code(s): I95.9 - HYPOTENSION, UNSPECIFIED 12 gi bleed 13 difuleoy lesion 14 rash I plan continue to monitor off of abx nutrition rest as per primary care monitor abd distension if distension increases hold the feed and observe
--- NOTE | 2018-03-05 14:11 | PN ---
Progress Note, Physician History of Present Illness: PULMONARY AWAKE,ALERT,ON VENT SUPPORT AC MODE - Current Medication List Current Medications: Active Medications Acetaminophen (Tylenol -) 650 mg PO Q4H PRN PRN Reason: FEVER Artificial Tears (Artificial Tears) 2 drop OU BID [facility] Last Admin: 03/05/18 10:44 Dose: 2 drop Atorvastatin Calcium (Lipitor -) 10 mg GT HS [facility] Last Admin: 03/04/18 23:24 Dose: 10 mg Collagenase (Santyl -) 1 applic TP DAILY [facility] Last Admin: 03/04/18 09:24 Dose: 1 applic Diltiazem HCl (Cardizem Injection -) 10 mg IVPUSH Q6H PRN PRN Reason: TACHYCARDIA Last Admin: 03/02/18 09:45 Dose: 10 mg Docusate Sodium (Colace Liquid -) 100 mg PO DAILY PRN PRN Reason: CONSTIPATION Ferrous Sulfate (Feosol) 300 mg GT DAILY [facility] Last Admin: 03/05/18 10:43 Dose: 300 mg Insulin Aspart (Novolog Vial Sliding Scale -) 1 vial SQ [facility]; Protocol Last Admin: 03/05/18 12:23 Dose: Not Given Insulin Detemir (Levemir Vial) 14 units SQ [facility] Levothyroxine Sodium (Synthroid -) 37.5 mcg PEG DAILY@0700 [facility] Last Admin: 03/05/18 06:28 Dose: 37.5 mcg Metoprolol Tartrate (Lopressor -) 25 mg PO BID [facility] Last Admin: 03/05/18 10:43 Dose: 25 mg Non-Formulary Medication (Non-Formulary Med) 1 each GT DAILY [facility] Last Admin: 03/05/18 10:44 Dose: 1 each Nystatin (Nystop Powder -) 1 applic TP BID [facility] Last Admin: 03/04/18 23:50 Dose: 1 applic Oxybutynin Chloride (Ditropan -) 5 mg NGT BID [facility] Last Admin: 03/05/18 10:43 Dose: 5 mg Pantoprazole Sodium (Protonix Packets For Oral Suspension -) 40 mg NGT DAILY [facility] Last Admin: 03/05/18 10:43 Dose: 40 mg Senna (Senna Oral Solution -) 8.8 mg GT [facility] Last Admin: 03/04/18 23:21 Dose: 8.8 mg Sertraline HCl (Zoloft -) 50 mg PO DAILY [facility] Last Admin: 03/05/18 10:43 Dose: 50 mg Simethicone (Mylicon Liquid -) 40 mg GT QID PRN PRN Reason: CONSTIPATION Tamsulosin HCl (Flomax -) 0.4 mg PO DAILY@0830 [facility] Last Admin: 03/05/18 09:25 Dose: 0.4 mg - Objective Vital Signs: Vital Signs Temperature 98.1 F 03/05/18 10:00 Pulse Rate 72 03/05/18 10:00 Respiratory Rate 17 03/05/18 10:00 Blood Pressure 124/58 03/05/18 10:00 O2 Sat by Pulse Oximetry (%) 100 03/05/18 09:00 Constitutional: Yes: Well Nourished, Calm Eyes: Yes: WNL HENT: Yes: WNL Neck: Yes: Supple (TRACH) Cardiovascular: Yes: Pulse Irregular, S1, S2 Respiratory: Yes: Rhonchi (FEW SCATTERED RHONCHI) Gastrointestinal: Yes: Normal Bowel Sounds, Soft Extremities: Yes: WNL Edema: No Labs: CBC, BMP 03/05/18 08:29 03/05/18 08:29 INR, PTT INR 1.13 (0.82-1.09) 02/16/18 22:40 Problem List - Problems (1) Anemia Code(s): D64.9 - ANEMIA, UNSPECIFIED (2) Chronic kidney disease, stage 3 Code(s): N18.3 - CHRONIC KIDNEY DISEASE, STAGE 3 (MODERATE) (3) Chronic respiratory failure Code(s): J96.10 - CHRONIC RESPIRATORY FAILURE, UNSP W HYPOXIA OR HYPERCAPNIA Qualifiers: Respiratory failure complication: unspecified whether with hypoxia or hypercapnia Qualified Code(s): J96.10 - Chronic respiratory failure, unspecified whether with hypoxia or hypercapnia (4) PAF (paroxysmal atrial fibrillation) Code(s): I48.0 - PAROXYSMAL ATRIAL FIBRILLATION (5) Renal failure Code(s): N19 - UNSPECIFIED KIDNEY FAILURE Qualifiers: Renal failure chronicity: unspecified chronicity Qualified Code(s): N19 - Unspecified kidney failure (6) Diabetes Code(s): E11.9 - TYPE 2 DIABETES MELLITUS WITHOUT COMPLICATIONS Qualifiers: Diabetes mellitus type: type 2 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 use: unspecified alf insulin use status Diabetes mellitus complication status : with kidney complications Diabetes mellitus complication detail: with chronic kidney disease Chronic kidney disease stage: stage 3 (moderate) Qualified Code(s): E11.22 - Type 2 diabetes mellitus with diabetic chronic kidney disease; N18.3 - Chronic kidney disease, stage 3 (moderate) (7) TBI (traumatic brain injury) Code(s): S06.9X9A - UNSP INTRACRANIAL INJURY W LOC OF UNSP DURATION, INIT Qualifiers: Encounter type: sequela Loss of consciousness presence/duration: with LOC of unspecified duration Qualified Code(s): S06.9X9S - Unspecified intracranial injury with loss of consciousness of unspecified duration, sequela (8) Cqfou-kk-dtyvzgo kidney injury Code(s): N17.9 - ACUTE KIDNEY FAILURE, UNSPECIFIED; N18.9 - CHRONIC KIDNEY DISEASE, UNSPECIFIED (9) Pgpko-gq-itwerwh renal failure Code(s): N17.9 - ACUTE KIDNEY FAILURE, UNSPECIFIED; N18.9 - CHRONIC KIDNEY DISEASE, UNSPECIFIED Qualifiers: Acute renal failure type: unspecified Chronic kidney disease stage: stage 3 (moderate) Qualified Code(s): N17.9 - Acute kidney failure, unspecified; N18.3 - Chronic kidney disease, stage 3 (moderate) (10) Hypotension Code(s): I95.9 - HYPOTENSION, UNSPECIFIED (11) Hypotension Code(s): I95.9 - HYPOTENSION, UNSPECIFIED Assessment/Plan ASSESSMENT AND PLAN: GI Bleed/Gastric Dieulafoy Lesion s/p EGD/epi/cautery Acute Blood Loss Anemia Chronic Respiratory Failure Pneumonia h/o Traumatic Brain Injury Functional Quadriplegia Acute on Chronic Renal Failure Atrial Fibrillation DM Dementia - monitor H/H - protonix - rate control - holding anticoagulation - volume assist control - poor candidate for weaning due to poor mental status - enteral feeds as tolerated - DVT/GI prophylaxis DR FORMAN
--- NOTE | 2018-03-05 14:40 | PN ---
Teaching Attending Note Name of Resident: Elia Prieto ATTENDING PHYSICIAN STATEMENT I saw and evaluated the patient. I reviewed the resident's note and discussed the case with the resident. I agree with the resident's findings and plan as documented. SUBJECTIVE:resting comfortable OBJECTIVE: Last Vital Signs Temp Pulse Resp BP Pulse Ox 98.1 F 72 21 124/58 100 03/05/18 10:00 03/05/18 10:00 03/05/18 12:15 03/05/18 10:00 03/05/18 09:00 General NAD spontaneous eye opening CV S1 S2 RRR no murmur/rub/gallop Lungs CTA anteriorly Abdomen soft. +distended NT +PEG no bleeding noted around PEG normoactive BS Extremities no pedal edema. contracted B/L upper extremities skin faint macular rash across chest and abdomen, not raised. 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 Admitted on 02/17/18 from [facility] chronic respiratory failure and severe anemia with a hg of 5.5 and hypotension. 1. Acute on chronic respiratory failure- due to aspiration PNA. now improved. has returned to baseline vent settings. not weanable due to poor mental status. off steroids. pulmonary on board 2. Aspiration PNA-completed extended course of zosyn. off all abx now. ID on board 3. macular rash-possible drug reaction vs heat rash. appears to spread across the chest and abdomen but less erythematous. off bactrim. monitor 4. distended abdomen-more distended today. as per RN not high residuals with TF and had large BM earlier today. will obtain AXR to evalute. 5. Multifactorial anemia with Upper GI bleed- s/p EGD with Diluefoy lesion s/p heat probe and epi. s/p 10 units PRBC this hospital stay. Hgb stable. no indication for transfusion. hematology on board. on iron supplementation 6. Acute on CKD- hypoperfusion. stable. prasannaley new baseline. elevated BUN likely due to GI bleed. now off steroids. cont to monitor. nephro on board 7. new onset afib- rate controlled.cont metoprolol. not a candidate for anticoagulation iwth recent GI bleed. echo reviewed. cardio on board 8. Hypernatremia- resolved. cont water flushes. monitor 9. Thrombophilia-stable. off medications 10. DM-some lower readings in the AM. will reduce levemir to 14 units. cont iss. titrate as needed to optimize control 11. TBI- s/p trach and PEG 12. 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 13. legally blind and deaf 14. hypothyroid- on Lt4 15. urinary incontinence- with chronic indwelling christopher. cont oxybutin/flomax 16. depression- on zoloft 17. DVT ppx- SCD. would hold pharmacologic anticoagulation wwith recent GI bleed 18. medically optimized at this time. daughter requested LTACH placement and referral sent out. OTIS also sent to SNF. accepted at [facility] awaiting auth
[2018-03-05] MEDS ORDERED: DEXTROSE 50%-WATER - 25 GM/50 ML VIAL IVPUSH ONE (17:00)
[2018-03-05] MEDS ORDERED: DEXTROSE 5%-NORMAL SALINE 1,000 ML IV SCH (17:00)
--- NOTE | 2018-03-05 17:13 | PN ---
Physical Exam: SUBJECTIVE: Patient seen and examined at bedside. OBJECTIVE: Vital Signs Period Temp Pulse Resp BP Sys/Wills Pulse Ox Last 24 Hr 97.3 F-98.5 F 57-73 14-21 111-124/55-58 100-100 Gen: uncommunicative. No apparent distress. Opened eyes to touch HEENT: NCAT Neck: trach tube in place. No blood at stoma. functioning well Cardio: irregular, tachycardic, norm s1s2, no m/r/g appreciated Lungs:clear breath sounds anteriorly Abd: soft, less distended than yest. No blood at peg site Ext: 1+ pulses, no edema Skin: erythematous rash in groin. punctate papular rash on flanks which becomes confluent toward the back. Improving Laboratory Results - last 24 hr 03/04/18 03/04/18 03/05/18 17:00 23:19 06:29 WBC RBC Hgb Hct MCV MCH MCHC RDW Plt Count MPV Absolute Neuts (auto) Neutrophils % Lymphocytes % Monocytes % Eosinophils % Basophils % Nucleated RBC % Sodium Potassium Chloride Carbon Dioxide Anion Gap BUN Creatinine Creat Clearance w eGFR POC Glucometer 117 109 75 Random Glucose Calcium Total Bilirubin AST ALT Alkaline Phosphatase Total Protein Albumin 03/05/18 03/05/18 03/05/18 07:52 08:29 08:29 WBC 5.8 RBC 2.68 L Hgb 8.1 L Hct 25.0 L MCV 93.2 MCH 30.2 MCHC 32.4 RDW 21.6 H Plt Count 145 MPV 9.5 Absolute Neuts (auto) 4.7 Neutrophils % 79.7 Lymphocytes % 13.2 Monocytes % 5.4 Eosinophils % 1.5 Basophils % 0.2 Nucleated RBC % 0 Sodium 144 Potassium 4.6 Chloride 112 H Carbon Dioxide 24 Anion Gap 8 BUN 78 H Creatinine 1.9 H Creat Clearance w eGFR 33.86 POC Glucometer 108 Random Glucose 90 Calcium 7.6 L Total Bilirubin 0.2 AST 51 H ALT 61 Alkaline Phosphatase 138 H Total Protein 5.4 L Albumin 2.0 L 03/05/18 12:04 WBC RBC Hgb Hct MCV MCH MCHC RDW Plt Count MPV Absolute Neuts (auto) Neutrophils % Lymphocytes % Monocytes % Eosinophils % Basophils % Nucleated RBC % Sodium Potassium Chloride Carbon Dioxide Anion Gap BUN Creatinine Creat Clearance w eGFR POC Glucometer 98 Random Glucose Calcium Total Bilirubin AST ALT Alkaline Phosphatase Total Protein Albumin Active Medications Generic Name Dose Route Start Last Admin Trade Name Freq PRN Reason Stop Dose Admin Acetaminophen 650 mg 03/01/18 15:42 Tylenol - PO Q4H PRN FEVER Amino Acids 30 ml 03/05/18 17:30 Prosource No Carb Liquid Pkt PO BID@0800,1730 LILIA Artificial Tears 2 drop 03/01/18 22:00 03/05/18 10:44 Artificial Tears OU 2 drop BID LILIA Administration Atorvastatin Calcium 10 mg 03/01/18 22:00 03/04/18 23:24 Lipitor - GT 10 mg HS LILIA Administration Collagenase 1 applic 03/02/18 10:00 03/05/18 10:58 Santyl - TP 1 applic DAILY LILIA Administration Diltiazem HCl 10 mg 03/01/18 15:42 03/02/18 09:45 Cardizem Injection - IVPUSH 10 mg Q6H PRN Administration TACHYCARDIA Docusate Sodium 100 mg 03/01/18 15:42 Colace Liquid - PO DAILY PRN CONSTIPATION Ferrous Sulfate 300 mg 03/02/18 10:00 03/05/18 10:43 Feosol GT 300 mg DAILY LILIA Administration Dextrose/Sodium Chloride 1,000 mls @ 75 mls/hr 03/05/18 17:00 03/05/18 16:59 D5-Ns - IV 75 mls/hr ASDIR LILIA Administration Insulin Aspart 1 vial 03/01/18 16:30 03/05/18 12:23 Novolog Vial Sliding Scale - SQ Not Given ACHS [facility] Protocol Insulin Detemir 14 units 03/05/18 07:36 Levemir Vial SQ HS [facility] Levothyroxine Sodium 37.5 mcg 03/02/18 07:00 03/05/18 06:28 Synthroid - PEG 37.5 mcg DAILY@0700 LILIA Administration Metoprolol Tartrate 25 mg 03/02/18 22:00 03/05/18 10:43 Lopressor - PO 25 mg BID LILIA Administration Non-Formulary Medication 1 each 03/02/18 10:00 03/05/18 10:44 Non-Formulary Med GT 1 each DAILY LILIA Administration Nystatin 1 applic 03/01/18 22:00 03/05/18 10:58 Nystop Powder - TP 1 applic BID LILIA Administration Oxybutynin Chloride 5 mg 03/01/18 22:00 03/05/18 10:43 Ditropan - NGT 5 mg BID LILIA Administration Pantoprazole Sodium 40 mg 03/02/18 10:00 03/05/18 10:43 Protonix Packets For Oral Suspension - NGT 40 mg DAILY LILIA Administration Senna 8.8 mg 03/02/18 22:00 03/04/18 23:21 Senna Oral Solution - GT 8.8 mg HS LILIA Administration Sertraline HCl 50 mg 03/02/18 21:25 03/05/18 10:43 Zoloft - PO 50 mg DAILY LILIA Administration Simethicone 40 mg 03/02/18 14:35 Mylicon Liquid - GT QID PRN CONSTIPATION Tamsulosin HCl 0.4 mg 03/02/18 08:30 03/05/18 09:25 Flomax - PO 0.4 mg DAILY@0830 LILIA Administration ASSESSMENT/PLAN: Pt is an 87 y/o M with PMH significant for 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 Pt is admitted to Med-Surg. #Afib -Pt alternates between fast and slow Afib. rate varies between 50 and 150 -Has been treated previously with Lopressor PRN. -Cardizem stopped -Lopressor increased to 25mg BID -HR controlled at this time -Cardio on board #Abdominal distension -intermittent large volume stools reported -abdomen soft, distended, tympanic -NPO -2nd CTAP neg for volvulus -Had BM this am -G-tube feeds held temporarily. active bowel sounds -Abd xray #GIB: likely Resolved -fobt pos -anemia -counts were dropping despite prbcs and epo -GI consulted -gastric lavage with pink/red fluid -Pt had a scope sig for bleeding AVM -Discussed with GI -G-tube feeds held temporarily over the weekend. Currently running -Pt continues to have black bm. Likely old blood. #Asp PNA -ID on board -Sputum culture pos for P aerug. Pseudo fluorescens -Zosyn d/c'ed -Bactrim d/c'ed #Anemia -was transfused 7 PRBCs total -Hb stable last 2 days -Given Epo (02/20/2018) -Heme on board: will give weekly Epo -No obvious active bleed -per son, had negative colonoscopy 2 years ago #Acute on chronic resp failure -likely 2/2 aspiration PNA -at baseline vent settings: AC Tv 450, RR 14, FiO2 28, PEEP 5 -Initially on Medrol 40. d/c'ed -Prednisone 40 -Pulm on board: poor weaning candidate #Acute on CKD - Contact Center Team Lead stabilized - BUN up-trending -? etiology. ?steroids vs GIB (most likely) vs dehydration (likely component) -Nepro on board: prerenal. Adjusted fluids #Hypernatremia: resolved -fluids modified by nephro -Nephro input appreciated #Hypokalemia: resolved -Fluids monitored and adjusted by nephro #Thrombophilia - Resolved -plt wnl #DM -Levemir was increased -ISS -glucose continues to be elevated in 150s -titrate Insulin #TBI -s/p trach and PEG -secondary paraplegia #Hypothyroid -c/w synthroid #Incontinence -christopher -flomax -oxybutinin #depression -zoloft #FEN -not on fluids -lytes wnl -Nutrition: via G-tube. flushes #PPx -held in setting of possible bleed #Dispo -med surg Elia Prieto MD PGY-1 IM Visit type - Emergency Visit Emergency Visit: No - New Patient This patient is new to me today: No - Critical Care Critical Care patient: No - Discharge Referral Referred to [facility] No
--- NOTE | 2018-03-05 18:56 | HOSP ---
Subjective - Review of Symptoms Subjective: spoke with son, Yomi Corcoran. [phone]. States for family preferences want him transferred to [facility]. States he is accepted by Dr Andrew Suárez, colorectal surgeon, Verified with fellow (Dr Brannno) that pt was accepted by Dr Suárez and verified with transfer center. [phone] Awaiting bed availability. Physical Examination Vital Signs: Vital Signs Temperature 99.1 F 03/05/18 18:00 Pulse Rate 64 03/05/18 18:00 Respiratory Rate 14 03/05/18 18:00 Blood Pressure 124/61 03/05/18 18:00 O2 Sat by Pulse Oximetry (%) 100 03/05/18 09:00 Labs: CBC, BMP 03/05/18 08:29 03/05/18 08:29
[2018-03-05] MEDS ORDERED: INSULIN (NOVOLOG) ASPART 100 UNITS/ML 10ML VIAL ONE (21:21)
[2018-03-05] MEDS: INSULIN (LEVEMIR) 100 UNITS/ML UNITS SQ SCH (22:12)
[2018-03-05] MEDS: SENNOSIDES 8.8 MG/5 ML BULK BOTTLE GT SCH (22:13)
[2018-03-05] MEDS: ATORVASTATIN CA 10 MG TABLET (FP) GT SCH (22:14)
[2018-03-06] MEDS: LEVOTHYROXINE NA 25 MCG TABLET (FP) PEG SCH (06:34)
[2018-03-06] MEDS: INSULIN SLIDING SCALE (NOVOLOG) 1 VIAL SQ SCH ×4 (06:35→23:32)
[2018-03-06] MEDS ORDERED: PT OWN MED DRAWER 7, Y5N ONE ×4 (07:02→23:30)
[2018-03-06] MEDS ORDERED: INSULIN (NOVOLOG) ASPART 100 UNITS/ML 10ML VIAL ONE (07:02)
[2018-03-06 07:50] LABS: BASO % 0.4 % (0-2.0); EOS % 1.9 % (0-4.5); HEMATOCRIT 24.9 % (35.4-49); HEMOGLOBIN 8.1 GM/dL (11.7-16.9); LYMPH % 16.5 % (8-40); MCH 30.5 pg (25.7-33.7); MCHC 32.7 g/dl (32.0-35.9); MEAN CELL VOLUME 93.1 fl (80-96); MEAN PLT VOLUME 9.7 fl (7.5-11.1); MONO % 5.1 % (3.8-10.2); NEUT % 76.1 % (42.8-82.8); PLATELET COUNT 146 K/MM3 (134-434); RBC 2.67 M/mm3 (4.00-5.60); RDW 21.9 % (11.9-15.9); WHITE BLOOD COUNT 4.9 K/mm3 (4.0-10.0)
[2018-03-06 08:16] LABS: ANION GAP 9 (8-16); BLOOD UREA NITROGEN 75 mg/dL (7-18); CALCIUM 7.7 mg/dL (8.5-10.1); CHLORIDE 109 mmol/L (98-107); CO2 23 mmol/L (21-32); GLUCOSE,RANDOM 144 mg/dL (74-106); POTASSIUM 4.2 mmol/L (3.5-5.1); SODIUM 141 mmol/L (136-145)
[2018-03-06 08:20] LABS: ALK PHOS 191 U/L (45-117); BILIRUBIN,TOTAL 0.3 mg/dL (0.2-1.0); CREATININE 1.7 mg/dL (0.7-1.3); SGOT/AST 276 U/L (15-37); SGPT/ALT 169 U/L (12-78); TOT PROT 5.5 g/dl (6.4-8.2)
[2018-03-06] MEDS: TAMSULOSIN HCL 0.4 MG CAP.ER.24H (FP) PO SCH (08:30)
[2018-03-06] MEDS: SERTRALINE HCL 25 MG TABLET (FP) PO SCH (10:07)
[2018-03-06] MEDS: AMINO ACIDS/PROTEIN HYDROLYS 30 ML LIQUID.PKT PO SCH ×3 (10:07→23:31)
[2018-03-06] MEDS: OXYBUTYNIN CHLORIDE 5 MG TABLET NGT SCH ×2 (10:08→23:32)
[2018-03-06] MEDS: METOPROLOL TARTRATE 25 MG TABLET (FP) PO SCH ×2 (10:08→23:32)
[2018-03-06] MEDS: NON-FORMULARY MED GT SCH (10:08)
[2018-03-06] MEDS: ARTIFICIAL TEARS (POLYVINYL ALCOHOL 1.4%) OPTH DROPS OU SCH ×2 (10:08→23:32)
[2018-03-06] MEDS: PANTOPRAZOLE SOD 40 MG SUSPENSION PACKET NGT SCH (10:08)
[2018-03-06] MEDS: FERROUS SO4 300 MG/5 ML ORAL SOLN UNIT DOSE CUPS GT SCH (10:08)
--- NOTE | 2018-03-06 10:17 | PN ---
Progress Note, Physician History of Present Illness: pulmonary awake,alert,on vent support ac mode,-resp distress - Current Medication List Current Medications: Active Medications Acetaminophen (Tylenol -) 650 mg PO Q4H PRN PRN Reason: FEVER Amino Acids (Prosource No Carb Liquid Pkt) 30 ml PO BID@0800,1730 [facility] Last Admin: 03/06/18 10:07 Dose: 30 ml Artificial Tears (Artificial Tears) 2 drop OU BID [facility] Last Admin: 03/06/18 10:08 Dose: 2 drop Atorvastatin Calcium (Lipitor -) 10 mg GT HS [facility] Last Admin: 03/05/18 22:14 Dose: 10 mg Collagenase (Santyl -) 1 applic TP DAILY [facility] Last Admin: 03/05/18 10:58 Dose: 1 applic Diltiazem HCl (Cardizem Injection -) 10 mg IVPUSH Q6H PRN PRN Reason: TACHYCARDIA Last Admin: 03/02/18 09:45 Dose: 10 mg Docusate Sodium (Colace Liquid -) 100 mg PO DAILY PRN PRN Reason: CONSTIPATION Ferrous Sulfate (Feosol) 300 mg GT DAILY [facility] Last Admin: 03/06/18 10:08 Dose: 300 mg Insulin Aspart (Novolog Vial Sliding Scale -) 1 vial SQ [facility]; Protocol Last Admin: 03/06/18 06:35 Dose: 2 units Insulin Detemir (Levemir Vial) 14 units SQ [facility] Last Admin: 03/05/18 22:12 Dose: Not Given Levothyroxine Sodium (Synthroid -) 37.5 mcg PEG DAILY@0700 [facility] Last Admin: 03/06/18 06:34 Dose: 37.5 mcg Metoprolol Tartrate (Lopressor -) 25 mg PO BID [facility] Last Admin: 03/06/18 10:08 Dose: 25 mg Non-Formulary Medication (Non-Formulary Med) 1 each GT DAILY [facility] Last Admin: 03/06/18 10:08 Dose: 1 each Nystatin (Nystop Powder -) 1 applic TP BID [facility] Last Admin: 03/05/18 22:15 Dose: 1 applic Oxybutynin Chloride (Ditropan -) 5 mg NGT BID [facility] Last Admin: 03/06/18 10:08 Dose: 5 mg Pantoprazole Sodium (Protonix Packets For Oral Suspension -) 40 mg NGT DAILY [facility] Last Admin: 03/06/18 10:08 Dose: 40 mg Senna (Senna Oral Solution -) 8.8 mg GT HS [facility] Last Admin: 03/05/18 22:13 Dose: 8.8 mg Sertraline HCl (Zoloft -) 50 mg PO DAILY [facility] Last Admin: 03/06/18 10:07 Dose: 50 mg Simethicone (Mylicon Liquid -) 40 mg GT QID PRN PRN Reason: CONSTIPATION Tamsulosin HCl (Flomax -) 0.4 mg PO DAILY@0830 [facility] Last Admin: 03/06/18 08:30 Dose: 0.4 mg - Objective Vital Signs: Vital Signs Temperature 97.2 F L 03/06/18 06:00 Pulse Rate 52 L 03/06/18 06:00 Respiratory Rate 16 03/06/18 06:05 Blood Pressure 113/52 03/06/18 06:00 O2 Sat by Pulse Oximetry (%) 100 03/05/18 21:00 Constitutional: Yes: Well Nourished, Calm Eyes: Yes: WNL HENT: Yes: WNL Neck: Yes: Supple (trach) Cardiovascular: Yes: Pulse Irregular, S1, S2 Respiratory: Yes: Rhonchi (scattered heather rhonchi) Gastrointestinal: Yes: Normal Bowel Sounds, Soft Extremities: Yes: WNL Edema: No Labs: CBC, BMP 03/06/18 07:10 03/06/18 07:10 INR, PTT INR 1.13 (0.82-1.09) 02/16/18 22:40 Problem List - Problems (1) Anemia Code(s): D64.9 - ANEMIA, UNSPECIFIED (2) Chronic kidney disease, stage 3 Code(s): N18.3 - CHRONIC KIDNEY DISEASE, STAGE 3 (MODERATE) (3) Chronic respiratory failure Code(s): J96.10 - CHRONIC RESPIRATORY FAILURE, UNSP W HYPOXIA OR HYPERCAPNIA Qualifiers: Respiratory failure complication: unspecified whether with hypoxia or hypercapnia Qualified Code(s): J96.10 - Chronic respiratory failure, unspecified whether with hypoxia or hypercapnia (4) PAF (paroxysmal atrial fibrillation) Code(s): I48.0 - PAROXYSMAL ATRIAL FIBRILLATION (5) Renal failure Code(s): N19 - UNSPECIFIED KIDNEY FAILURE Qualifiers: Renal failure chronicity: unspecified chronicity Qualified Code(s): N19 - Unspecified kidney failure (6) Diabetes Code(s): E11.9 - TYPE 2 DIABETES MELLITUS WITHOUT COMPLICATIONS Qualifiers: Diabetes mellitus type: type 2 Diabetes mellitus snf insulin use: unspecified snf insulin use status Diabetes mellitus complication status : with kidney complications Diabetes mellitus complication detail: with chronic kidney disease Chronic kidney disease stage: stage 3 (moderate) Qualified Code(s): E11.22 - Type 2 diabetes mellitus with diabetic chronic kidney disease; N18.3 - Chronic kidney disease, stage 3 (moderate) (7) TBI (traumatic brain injury) Code(s): S06.9X9A - UNSP INTRACRANIAL INJURY W LOC OF UNSP DURATION, INIT Qualifiers: Encounter type: sequela Loss of consciousness presence/duration: with LOC of unspecified duration Qualified Code(s): S06.9X9S - Unspecified intracranial injury with loss of consciousness of unspecified duration, sequela (8) Bjuno-pa-lasxcpc kidney injury Code(s): N17.9 - ACUTE KIDNEY FAILURE, UNSPECIFIED; N18.9 - CHRONIC KIDNEY DISEASE, UNSPECIFIED (9) Gzdpt-yp-bbenggq renal failure Code(s): N17.9 - ACUTE KIDNEY FAILURE, UNSPECIFIED; N18.9 - CHRONIC KIDNEY DISEASE, UNSPECIFIED Qualifiers: Acute renal failure type: unspecified Chronic kidney disease stage: stage 3 (moderate) Qualified Code(s): N17.9 - Acute kidney failure, unspecified; N18.3 - Chronic kidney disease, stage 3 (moderate) (10) Hypotension Code(s): I95.9 - HYPOTENSION, UNSPECIFIED (11) Hypotension Code(s): I95.9 - HYPOTENSION, UNSPECIFIED Assessment/Plan ASSESSMENT AND PLAN: GI Bleed/Gastric Dieulafoy Lesion s/p EGD/epi/cautery Acute Blood Loss Anemia Chronic Respiratory Failure Pneumonia h/o Traumatic Brain Injury Functional Quadriplegia Acute on Chronic Renal Failure Atrial Fibrillation DM Dementia Elevated LFTs - monitor H/H - protonix - rate control - holding anticoagulation - volume assist control - enteral feeds as tolerated - DVT/GI prophylaxis - monitor LFTs DR FORMAN
--- NOTE | 2018-03-06 10:21 | PN ---
Progress Note, Physician History of Present Illness: stable abd better softer - Current Medication List Current Medications: Active Medications Acetaminophen (Tylenol -) 650 mg PO Q4H PRN PRN Reason: FEVER Amino Acids (Prosource No Carb Liquid Pkt) 30 ml PO BID@0800,1730 [facility] Last Admin: 03/06/18 10:07 Dose: 30 ml Artificial Tears (Artificial Tears) 2 drop OU BID [facility] Last Admin: 03/06/18 10:08 Dose: 2 drop Atorvastatin Calcium (Lipitor -) 10 mg GT HS [facility] Last Admin: 03/05/18 22:14 Dose: 10 mg Collagenase (Santyl -) 1 applic TP DAILY [facility] Last Admin: 03/05/18 10:58 Dose: 1 applic Diltiazem HCl (Cardizem Injection -) 10 mg IVPUSH Q6H PRN PRN Reason: TACHYCARDIA Last Admin: 03/02/18 09:45 Dose: 10 mg Docusate Sodium (Colace Liquid -) 100 mg PO DAILY PRN PRN Reason: CONSTIPATION Ferrous Sulfate (Feosol) 300 mg GT DAILY [facility] Last Admin: 03/06/18 10:08 Dose: 300 mg Insulin Aspart (Novolog Vial Sliding Scale -) 1 vial SQ [facility]; Protocol Last Admin: 03/06/18 06:35 Dose: 2 units Insulin Detemir (Levemir Vial) 14 units SQ [facility] Last Admin: 03/05/18 22:12 Dose: Not Given Levothyroxine Sodium (Synthroid -) 37.5 mcg PEG DAILY@0700 [facility] Last Admin: 03/06/18 06:34 Dose: 37.5 mcg Metoprolol Tartrate (Lopressor -) 25 mg PO BID [facility] Last Admin: 03/06/18 10:08 Dose: 25 mg Non-Formulary Medication (Non-Formulary Med) 1 each GT DAILY [facility] Last Admin: 03/06/18 10:08 Dose: 1 each Nystatin (Nystop Powder -) 1 applic TP BID [facility] Last Admin: 03/05/18 22:15 Dose: 1 applic Oxybutynin Chloride (Ditropan -) 5 mg NGT BID [facility] Last Admin: 03/06/18 10:08 Dose: 5 mg Pantoprazole Sodium (Protonix Packets For Oral Suspension -) 40 mg NGT DAILY [facility] Last Admin: 03/06/18 10:08 Dose: 40 mg Senna (Senna Oral Solution -) 8.8 mg GT HS [facility] Last Admin: 03/05/18 22:13 Dose: 8.8 mg Sertraline HCl (Zoloft -) 50 mg PO DAILY [facility] Last Admin: 03/06/18 10:07 Dose: 50 mg Simethicone (Mylicon Liquid -) 40 mg GT QID PRN PRN Reason: CONSTIPATION Tamsulosin HCl (Flomax -) 0.4 mg PO DAILY@0830 [facility] Last Admin: 03/06/18 08:30 Dose: 0.4 mg - Objective Vital Signs: Vital Signs Temperature 97.2 F L 03/06/18 06:00 Pulse Rate 52 L 03/06/18 06:00 Respiratory Rate 16 03/06/18 06:05 Blood Pressure 113/52 03/06/18 06:00 O2 Sat by Pulse Oximetry (%) 100 03/05/18 21:00 Constitutional: Yes: No Distress, Calm Cardiovascular: Yes: Pulse Irregular, S1, S2 Respiratory: Yes: Mechanically Ventilated, Other Gastrointestinal: Yes: Normal Bowel Sounds, Soft, Other (peg tube in place) Musculoskeletal: Yes: WNL Extremities: Yes: WNL Neurological: Yes: Other Psychiatric: Yes: Other Labs: CBC, BMP 03/06/18 07:10 03/06/18 07:10 INR, PTT INR 1.13 (0.82-1.09) 02/16/18 22:40 Assessment/Plan Problem List - Problems (1) Anemia Code(s): D64.9 - ANEMIA, UNSPECIFIED (2) Chronic kidney disease, stage 3 Code(s): N18.3 - CHRONIC KIDNEY DISEASE, STAGE 3 (MODERATE) (3) Chronic respiratory failure Code(s): J96.10 - CHRONIC RESPIRATORY FAILURE, UNSP W HYPOXIA OR HYPERCAPNIA Qualifiers: Respiratory failure complication: unspecified whether with hypoxia or hypercapnia Qualified Code(s): J96.10 - Chronic respiratory failure, unspecified whether with hypoxia or hypercapnia (4) PAF (paroxysmal atrial fibrillation) Code(s): I48.0 - PAROXYSMAL ATRIAL FIBRILLATION (5) Renal failure Code(s): N19 - UNSPECIFIED KIDNEY FAILURE Qualifiers: Renal failure chronicity: unspecified chronicity Qualified Code(s): N19 - Unspecified kidney failure (6) Diabetes Code(s): E11.9 - TYPE 2 DIABETES MELLITUS WITHOUT COMPLICATIONS (7) TBI (traumatic brain injury) Code(s): S06.9X9A - UNSP INTRACRANIAL INJURY W LOC OF UNSP DURATION, INIT (8) Izhjv-ld-jxyestr kidney injury Code(s): N17.9 - ACUTE KIDNEY FAILURE, UNSPECIFIED; N18.9 - CHRONIC KIDNEY DISEASE, UNSPECIFIED (9) Chhvo-eu-wwonsrb renal failure Code(s): N17.9 - ACUTE KIDNEY FAILURE, UNSPECIFIED; N18.9 - CHRONIC KIDNEY DISEASE, UNSPECIFIED (10) Hypotension Code(s): I95.9 - HYPOTENSION, UNSPECIFIED (11) Hypotension Code(s): I95.9 - HYPOTENSION, UNSPECIFIED 12 gi bleed 13 difuleoy lesion 14 rash I plan continue to monitor off of abx nutrition rest as per primary care monitor abd
[2018-03-06] MEDS: COLLAGENASE CLOSTRIDIUM HIST. 30 GRAMS TUBE TP SCH (12:22)
[2018-03-06] MEDS: NYSTATIN POWDER 100,000 UNITS/GM - 15 GM TOPICAL POWDER TP SCH ×2 (12:23→23:33)
--- NOTE | 2018-03-06 15:15 | PN ---
Progress Note (short form) - Note Progress Note: resting comfortable Current Medications Generic Name Dose Route Start Last Admin Trade Name Freq PRN Reason Stop Dose Admin Acetaminophen 650 mg 03/01/18 15:42 Tylenol - PO Q4H PRN FEVER Amino Acids 30 ml 03/05/18 17:30 03/06/18 10:07 Prosource No Carb Liquid Pkt PO 30 ml BID@0800,1730 L[facility] Administration Artificial Tears 2 drop 03/01/18 22:00 03/06/18 10:08 Artificial Tears OU 2 drop BID LILIA Administration Atorvastatin Calcium 10 mg 03/01/18 22:00 03/05/18 22:14 Lipitor - GT 10 mg HS LILIA Administration Collagenase 1 applic 03/02/18 10:00 03/06/18 12:22 Santyl - TP 1 applic DAILY [facility] Administration Diltiazem HCl 10 mg 03/01/18 15:42 03/02/18 09:45 Cardizem Injection - IVPUSH 10 mg Q6H PRN Administration TACHYCARDIA Docusate Sodium 100 mg 03/01/18 15:42 Colace Liquid - PO DAILY PRN CONSTIPATION Ferrous Sulfate 300 mg 03/02/18 10:00 03/06/18 10:08 Feosol GT 300 mg DAILY L[facility] Administration Insulin Aspart 1 vial 03/01/18 16:30 03/06/18 12:23 Novolog Vial Sliding Scale - SQ 4 units ACHS LILIA Administration Protocol Insulin Detemir 14 units 03/05/18 07:36 03/05/18 22:12 Levemir Vial SQ Not Given HS LILIA Levothyroxine Sodium 37.5 mcg 03/02/18 07:00 03/06/18 06:34 Synthroid - PEG 37.5 mcg DAILY@0700 [facility] Administration Metoprolol Tartrate 25 mg 03/02/18 22:00 03/06/18 10:08 Lopressor - PO 25 mg BID [facility] Administration Non-Formulary Medication 1 each 03/02/18 10:00 03/06/18 10:08 Non-Formulary Med GT 1 each DAILY [facility] Administration Nystatin 1 applic 03/01/18 22:00 03/06/18 12:23 Nystop Powder - TP 1 applic BID [facility] Administration Oxybutynin Chloride 5 mg 03/01/18 22:00 03/06/18 10:08 Ditropan - NGT 5 mg BID [facility] Administration Pantoprazole Sodium 40 mg 03/02/18 10:00 03/06/18 10:08 Protonix Packets For Oral Suspension - NGT 40 mg DAILY [facility] Administration Senna 8.8 mg 03/02/18 22:00 03/05/18 22:13 Senna Oral Solution - GT 8.8 mg HS L[facility] Administration Sertraline HCl 50 mg 03/02/18 21:25 03/06/18 10:07 Zoloft - PO 50 mg DAILY [facility] Administration Simethicone 40 mg 03/02/18 14:35 Mylicon Liquid - GT QID PRN CONSTIPATION Tamsulosin HCl 0.4 mg 03/02/18 08:30 03/06/18 08:30 Flomax - PO 0.4 mg DAILY@0830 [facility] Administration Last Vital Signs Temp Pulse Resp BP Pulse Ox 98.5 F 60 30 H 110/60 98 03/06/18 10:00 03/06/18 10:00 03/06/18 10:05 03/06/18 10:00 03/06/18 09:00 General NAD spontaneous eye opening CV S1 S2 RRR no murmur/rub/gallop Lungs CTA anteriorly Abdomen soft. +distended NT +PEG no bleeding noted around PEG normoactive BS tympanic Extremities no pedal edema. contracted B/L upper extremities skin rash cleared CBCD WBC 4.9 K/mm3 (4.0-10.0) 03/06/18 07:10 RBC 2.67 M/mm3 (4.00-5.60) L 03/06/18 07:10 Hgb 8.1 GM/dL (11.7-16.9) L 03/06/18 07:10 Hct 24.9 % (35.4-49) L 03/06/18 07:10 MCV 93.1 fl (80-96) 03/06/18 07:10 MCHC 32.7 g/dl (32.0-35.9) 03/06/18 07:10 RDW 21.9 % (11.9-15.9) H 03/06/18 07:10 Plt Count 146 K/MM3 (134-434) 03/06/18 07:10 MPV 9.7 fl (7.5-11.1) 03/06/18 07:10 CMP Sodium 141 mmol/L (136-145) 03/06/18 07:10 Potassium 4.2 mmol/L (3.5-5.1) 03/06/18 07:10 Chloride 109 mmol/L (98-107) H 03/06/18 07:10 Carbon Dioxide 23 mmol/L (21-32) 03/06/18 07:10 Anion Gap 9 (8-16) 03/06/18 07:10 BUN 75 mg/dL (7-18) H 03/06/18 07:10 Creatinine 1.7 mg/dL (0.7-1.3) H 03/06/18 07:10 Creat Clearance w eGFR 38.50 (>60) 03/06/18 07:10 Calcium 7.7 mg/dL (8.5-10.1) L 03/06/18 07:10 Total Bilirubin 0.3 mg/dL (0.2-1.0) 03/06/18 07:10 AST 276 U/L (15-37) H D 03/06/18 07:10 ALT 169 U/L (12-78) H D 03/06/18 07:10 Alkaline Phosphatase 191 U/L (45-117) H D 03/06/18 07:10 Total Protein 5.5 g/dl (6.4-8.2) L 03/06/18 07:10 Albumin 2.0 g/dl (3.4-5.0) L 03/06/18 07:10 ASSESSMENT AND PLAN: 87 year old male with a significant past medical history of diastolic heart failure, NIDDM, CKD, and 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 Admitted on 02/17/18 from [facility] chronic respiratory failure and severe anemia with a hg of 5.5 and hypotension. 1. Acute on chronic respiratory failure- due to aspiration PNA. now improved. has returned to baseline vent settings. not weanable due to poor mental status. off steroids. pulmonary on board 2. Aspiration PNA-completed extended course of zosyn. off all abx now. ID on board 3. macular rash-possible drug reaction vs heat rash. now resolved. 4. acute transaminitis- possible cholestasis? similar episode on 02/01/18. imaging at that time was negative for acute disease. no new medications or periods of hypotension to explain sudden increase. will trend at this time. last visit it trending down without any treatment 6. distended abdomen-soft. tolerated tube feeds. AXR with no change from last week. 7. Multifactorial anemia with Upper GI bleed- s/p EGD with Diluefoy lesion s/p heat probe and epi. s/p 10 units PRBC this hospital stay. Hgb stable. no indication for transfusion. hematology on board. on iron supplementation 8. Acute on CKD- hypoperfusion. stable. wen new baseline. elevated BUN likely due to GI bleed. now off steroids. cont to monitor. nephro on board 9. new onset afib- rate controlled.cont metoprolol. not a candidate for anticoagulation iwth recent GI bleed. echo reviewed. cardio on board 10. Hypernatremia- resolved. cont water flushes. monitor 11. Thrombophilia-stable. off medications 12. DM-some lower readings in the AM. will reduce levemir to 14 units. cont iss. titrate as needed to optimize control 13. TBI- s/p trach and PEG 14. 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 15. legally blind and deaf 16. hypothyroid- on Lt4 17. urinary incontinence- with chronic indwelling christopher. cont oxybutin/flomax 18. depression- on zoloft 19. DVT ppx- SCD. would hold pharmacologic anticoagulation wwith recent GI bleed 20. medically optimized at this time. family now requesting transfer to [place]. Accepted and awaiting bed placement. spoke with CM who is to follow up for bed availability today Visit type - Emergency Visit Emergency Visit: Yes ED Registration Date: 02/17/18 Care time: The patient presented to the Emergency Department on the above date and was hospitalized for further evaluation of their emergent condition. - New Patient This patient is new to me today: No - Critical Care Critical Care patient: No - Discharge Referral Referred to [facility] Med P.C.: No
[2018-03-06] MEDS: ATORVASTATIN CA 10 MG TABLET (FP) GT SCH (23:32)
[2018-03-06] MEDS: SENNOSIDES 8.8 MG/5 ML BULK BOTTLE GT SCH (23:33)
[2018-03-06] MEDS: INSULIN (LEVEMIR) 100 UNITS/ML UNITS SQ SCH (23:34)
[2018-03-07] MEDS: LEVOTHYROXINE NA 25 MCG TABLET (FP) PEG SCH (06:49)
[2018-03-07] MEDS: INSULIN SLIDING SCALE (NOVOLOG) 1 VIAL SQ SCH ×4 (06:49→21:55)
[2018-03-07] MEDS: AMINO ACIDS/PROTEIN HYDROLYS 30 ML LIQUID.PKT PO SCH ×2 (08:04→16:40)
[2018-03-07] MEDS: TAMSULOSIN HCL 0.4 MG CAP.ER.24H (FP) PO SCH (08:04)
[2018-03-07 08:54] LABS: BASO % 0.5 % (0-2.0); EOS % 1.5 % (0-4.5); HEMATOCRIT 24.9 % (35.4-49); HEMOGLOBIN 8.2 GM/dL (11.7-16.9); LYMPH % 12.5 % (8-40); MCH 30.3 pg (25.7-33.7); MCHC 32.9 g/dl (32.0-35.9); MEAN CELL VOLUME 92.1 fl (80-96); MEAN PLT VOLUME 9.1 fl (7.5-11.1); MONO % 6.2 % (3.8-10.2); NEUT % 79.3 % (42.8-82.8); PLATELET COUNT 146 K/MM3 (134-434); RDW 20.3 % (11.9-15.9); WHITE BLOOD COUNT 5.6 K/mm3 (4.0-10.0)
[2018-03-07] MEDS ORDERED: PT OWN MED DRAWER 7, Y5N ONE ×3 (08:59→15:33)
[2018-03-07] MEDS: OXYBUTYNIN CHLORIDE 5 MG TABLET NGT SCH ×2 (09:02→21:54)
[2018-03-07] MEDS: PANTOPRAZOLE SOD 40 MG SUSPENSION PACKET NGT SCH (09:02)
[2018-03-07] MEDS: SERTRALINE HCL 25 MG TABLET (FP) PO SCH (09:02)
[2018-03-07] MEDS: FERROUS SO4 300 MG/5 ML ORAL SOLN UNIT DOSE CUPS GT SCH (09:03)
[2018-03-07] MEDS: METOPROLOL TARTRATE 25 MG TABLET (FP) PO SCH ×2 (09:03→21:54)
[2018-03-07] MEDS: NON-FORMULARY MED GT SCH (09:04)
[2018-03-07] MEDS: ARTIFICIAL TEARS (POLYVINYL ALCOHOL 1.4%) OPTH DROPS OU SCH ×2 (09:07→21:54)
[2018-03-07] MEDS: NYSTATIN POWDER 100,000 UNITS/GM - 15 GM TOPICAL POWDER TP SCH ×2 (09:07→21:57)
[2018-03-07 09:22] LABS: ALK PHOS 201 U/L (45-117); ANION GAP 7 (8-16); BILIRUBIN,TOTAL 0.3 mg/dL (0.2-1.0); BLOOD UREA NITROGEN 78 mg/dL (7-18); CALCIUM 7.7 mg/dL (8.5-10.1); CHLORIDE 108 mmol/L (98-107); CO2 24 mmol/L (21-32); CREATININE 1.7 mg/dL (0.7-1.3); GLUCOSE,RANDOM 115 mg/dL (74-106); POTASSIUM 4.6 mmol/L (3.5-5.1); SGOT/AST 136 U/L (15-37); SGPT/ALT 175 U/L (12-78); SODIUM 139 mmol/L (136-145); TOT PROT 5.5 g/dl (6.4-8.2)
--- NOTE | 2018-03-07 09:40 | PN ---
Progress Note, Physician History of Present Illness: PULMONARY AWAKE,ALERT ON VENT SUPPORT,-RESP DISTRESS - Current Medication List Current Medications: Active Medications Acetaminophen (Tylenol -) 650 mg PO Q4H PRN PRN Reason: FEVER Amino Acids (Prosource No Carb Liquid Pkt) 30 ml PO BID@0800,1730 [facility] Last Admin: 03/07/18 08:04 Dose: 30 ml Artificial Tears (Artificial Tears) 2 drop OU BID [facility] Last Admin: 03/07/18 09:07 Dose: 2 drop Atorvastatin Calcium (Lipitor -) 10 mg GT HS [facility] Last Admin: 03/06/18 23:32 Dose: 10 mg Collagenase (Santyl -) 1 applic TP DAILY [facility] Last Admin: 03/06/18 12:22 Dose: 1 applic Diltiazem HCl (Cardizem Injection -) 10 mg IVPUSH Q6H PRN PRN Reason: TACHYCARDIA Last Admin: 03/02/18 09:45 Dose: 10 mg Docusate Sodium (Colace Liquid -) 100 mg PO DAILY PRN PRN Reason: CONSTIPATION Ferrous Sulfate (Feosol) 300 mg GT DAILY [facility] Last Admin: 03/07/18 09:03 Dose: 300 mg Insulin Aspart (Novolog Vial Sliding Scale -) 1 vial SQ [facility]; Protocol Last Admin: 03/07/18 06:49 Dose: Not Given Insulin Detemir (Levemir Vial) 14 units SQ [facility] Last Admin: 03/06/18 23:34 Dose: 14 units Levothyroxine Sodium (Synthroid -) 37.5 mcg PEG DAILY@0700 [facility] Last Admin: 03/07/18 06:49 Dose: 37.5 mcg Metoprolol Tartrate (Lopressor -) 25 mg PO BID [facility] Last Admin: 03/07/18 09:03 Dose: 25 mg Non-Formulary Medication (Non-Formulary Med) 1 each GT DAILY [facility] Last Admin: 03/07/18 09:04 Dose: 1 each Nystatin (Nystop Powder -) 1 applic TP BID [facility] Last Admin: 03/07/18 09:07 Dose: 1 applic Oxybutynin Chloride (Ditropan -) 5 mg NGT BID [facility] Last Admin: 03/07/18 09:02 Dose: 5 mg Pantoprazole Sodium (Protonix Packets For Oral Suspension -) 40 mg NGT DAILY [facility] Last Admin: 03/07/18 09:02 Dose: 40 mg Senna (Senna Oral Solution -) 8.8 mg GT HS [facility] Last Admin: 03/06/18 23:33 Dose: 8.8 mg Sertraline HCl (Zoloft -) 50 mg PO DAILY [facility] Last Admin: 03/07/18 09:02 Dose: 50 mg Simethicone (Mylicon Liquid -) 40 mg GT QID PRN PRN Reason: CONSTIPATION Tamsulosin HCl (Flomax -) 0.4 mg PO DAILY@0830 [facility] Last Admin: 03/07/18 08:04 Dose: 0.4 mg - Objective Vital Signs: Vital Signs Temperature 98.3 F 03/07/18 09:14 Pulse Rate 55 L 03/07/18 09:14 Respiratory Rate 14 03/07/18 09:14 Blood Pressure 121/46 03/07/18 09:14 O2 Sat by Pulse Oximetry (%) 99 03/07/18 09:00 Constitutional: Yes: Well Nourished, Calm Eyes: Yes: WNL HENT: Yes: WNL Neck: Yes: Supple (TRACH) Cardiovascular: Yes: Pulse Irregular, S1, S2 Respiratory: Yes: Rhonchi (SCATTERED RHONCHI) Gastrointestinal: Yes: Distention, Other (+PEG) Extremities: Yes: WNL Edema: No Labs: CBC, BMP 03/07/18 08:50 03/07/18 08:50 INR, PTT INR 1.13 (0.82-1.09) 02/16/18 22:40 Problem List - Problems (1) Anemia Code(s): D64.9 - ANEMIA, UNSPECIFIED (2) Chronic kidney disease, stage 3 Code(s): N18.3 - CHRONIC KIDNEY DISEASE, STAGE 3 (MODERATE) (3) Chronic respiratory failure Code(s): J96.10 - CHRONIC RESPIRATORY FAILURE, UNSP W HYPOXIA OR HYPERCAPNIA Qualifiers: Respiratory failure complication: unspecified whether with hypoxia or hypercapnia Qualified Code(s): J96.10 - Chronic respiratory failure, unspecified whether with hypoxia or hypercapnia (4) PAF (paroxysmal atrial fibrillation) Code(s): I48.0 - PAROXYSMAL ATRIAL FIBRILLATION (5) Renal failure Code(s): N19 - UNSPECIFIED KIDNEY FAILURE Qualifiers: Renal failure chronicity: unspecified chronicity Qualified Code(s): N19 - Unspecified kidney failure (6) Diabetes Code(s): E11.9 - TYPE 2 DIABETES MELLITUS WITHOUT COMPLICATIONS Qualifiers: Diabetes mellitus type: type 2 Diabetes mellitus jail insulin use: unspecified jail insulin use status Diabetes mellitus complication status : with kidney complications Diabetes mellitus complication detail: with chronic kidney disease Chronic kidney disease stage: stage 3 (moderate) Qualified Code(s): E11.22 - Type 2 diabetes mellitus with diabetic chronic kidney disease; N18.3 - Chronic kidney disease, stage 3 (moderate) (7) TBI (traumatic brain injury) Code(s): S06.9X9A - UNSP INTRACRANIAL INJURY W LOC OF UNSP DURATION, INIT Qualifiers: Encounter type: sequela Loss of consciousness presence/duration: with LOC of unspecified duration Qualified Code(s): S06.9X9S - Unspecified intracranial injury with loss of consciousness of unspecified duration, sequela (8) [id number] kidney injury Code(s): N17.9 - ACUTE KIDNEY FAILURE, UNSPECIFIED; N18.9 - CHRONIC KIDNEY DISEASE, UNSPECIFIED (9) Xatfd-yc-bvyopwv renal failure Code(s): N17.9 - ACUTE KIDNEY FAILURE, UNSPECIFIED; N18.9 - CHRONIC KIDNEY DISEASE, UNSPECIFIED Qualifiers: Acute renal failure type: unspecified Chronic kidney disease stage: stage 3 (moderate) Qualified Code(s): N17.9 - Acute kidney failure, unspecified; N18.3 - Chronic kidney disease, stage 3 (moderate) (10) Hypotension Code(s): I95.9 - HYPOTENSION, UNSPECIFIED (11) Hypotension Code(s): I95.9 - HYPOTENSION, UNSPECIFIED Assessment/Plan ASSESSMENT AND PLAN: GI Bleed/Gastric Dieulafoy Lesion s/p EGD/epi/cautery Acute Blood Loss Anemia Chronic Respiratory Failure Pneumonia h/o Traumatic Brain Injury Functional Quadriplegia Acute on Chronic Renal Failure Atrial Fibrillation DM Dementia Elevated LFTs - monitor H/H - protonix - rate control - holding anticoagulation - volume assist control - enteral feeds as tolerated - DVT/GI prophylaxis - monitor LFTs DR FORMAN
--- NOTE | 2018-03-07 09:59 | PN ---
Teaching Attending Note Name of Resident: Erica See ATTENDING PHYSICIAN STATEMENT I saw and evaluated the patient. I reviewed the resident's note and discussed the case with the resident. I agree with the resident's findings and plan as documented. SUBJECTIVE:resting comfortable OBJECTIVE: Last Vital Signs Temp Pulse Resp BP Pulse Ox 98.3 F 55 L 14 121/46 99 03/07/18 09:14 03/07/18 09:14 03/07/18 09:14 03/07/18 09:14 03/07/18 09:00 General resting comfortable, spontaneous eye opening Abdomen soft +distended. erythema surrounding PEG tube no drainage or bleeding skin. 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 Admitted on 02/17/18 from [facility] chronic respiratory failure and severe anemia with a hg of 5.5 and hypotension. 1. Acute on chronic respiratory failure- due to aspiration PNA. now improved. has returned to baseline vent settings. not weanable due to poor mental status. off steroids. pulmonary on board 2. Aspiration PNA-completed extended course of zosyn. off all abx now. ID on board 3. macular rash-possible drug reaction vs heat rash. now resolved. 4. acute transaminitis- possible cholestasis? similar episode on 02/01/18. awaiting repeat labs today. 7. Multifactorial anemia with Upper GI bleed- s/p EGD with Diluefoy lesion s/p heat probe and epi. s/p 10 units PRBC this hospital stay. Hgb stable. no indication for transfusion. hematology on board. on iron supplementation 8. Acute on CKD- hypoperfusion. stable. likley new baseline. elevated BUN likely due to GI bleed. now off steroids. cont to monitor. nephro on board 9. new onset afib- rate controlled. cont metoprolol. not a candidate for anticoagulation iwth recent GI bleed. echo reviewed. cardio on board 10. Hypernatremia- resolved. cont water flushes. monitor 11. Thrombophilia-stable. off medications 12. DM-improved. cont levemir. cont iss. titrate as needed to optimize control 13. TBI- s/p trach and PEG 14. 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 15. legally blind and deaf 16. hypothyroid- on Lt4 17. urinary incontinence- with chronic indwelling christopher. cont oxybutin/flomax 18. depression- on zoloft 19. DVT ppx- SCD. would hold pharmacologic anticoagulation with recent GI bleed 20. medically optimized at this time. family now requesting transfer to [place]. Accepted and awaiting bed placement. spoke with CM who is to follow up for bed availability today
--- NOTE | 2018-03-07 11:21 | PN ---
Progress Note, Physician History of Present Illness: no changes on vent support - Current Medication List Current Medications: Active Medications Acetaminophen (Tylenol -) 650 mg PO Q4H PRN PRN Reason: FEVER Amino Acids (Prosource No Carb Liquid Pkt) 30 ml PO BID@0800,1730 [facility] Last Admin: 03/07/18 08:04 Dose: 30 ml Artificial Tears (Artificial Tears) 2 drop OU BID [facility] Last Admin: 03/07/18 09:07 Dose: 2 drop Atorvastatin Calcium (Lipitor -) 10 mg GT HS [facility] Last Admin: 03/06/18 23:32 Dose: 10 mg Collagenase (Santyl -) 1 applic TP DAILY [facility] Last Admin: 03/06/18 12:22 Dose: 1 applic Diltiazem HCl (Cardizem Injection -) 10 mg IVPUSH Q6H PRN PRN Reason: TACHYCARDIA Last Admin: 03/02/18 09:45 Dose: 10 mg Docusate Sodium (Colace Liquid -) 100 mg PO DAILY PRN PRN Reason: CONSTIPATION Ferrous Sulfate (Feosol) 300 mg GT DAILY [facility] Last Admin: 03/07/18 09:03 Dose: 300 mg Insulin Aspart (Novolog Vial Sliding Scale -) 1 vial SQ [facility]; Protocol Last Admin: 03/07/18 06:49 Dose: Not Given Insulin Detemir (Levemir Vial) 14 units SQ [facility] Last Admin: 03/06/18 23:34 Dose: 14 units Levothyroxine Sodium (Synthroid -) 37.5 mcg PEG DAILY@0700 [facility] Last Admin: 03/07/18 06:49 Dose: 37.5 mcg Metoprolol Tartrate (Lopressor -) 25 mg PO BID [facility] Last Admin: 03/07/18 09:03 Dose: 25 mg Non-Formulary Medication (Non-Formulary Med) 1 each GT DAILY [facility] Last Admin: 03/07/18 09:04 Dose: 1 each Nystatin (Nystop Powder -) 1 applic TP BID [facility] Last Admin: 03/07/18 09:07 Dose: 1 applic Oxybutynin Chloride (Ditropan -) 5 mg NGT BID [facility] Last Admin: 03/07/18 09:02 Dose: 5 mg Pantoprazole Sodium (Protonix Packets For Oral Suspension -) 40 mg NGT DAILY [facility] Last Admin: 03/07/18 09:02 Dose: 40 mg Senna (Senna Oral Solution -) 8.8 mg GT HS [facility] Last Admin: 03/06/18 23:33 Dose: 8.8 mg Sertraline HCl (Zoloft -) 50 mg PO DAILY [facility] Last Admin: 03/07/18 09:02 Dose: 50 mg Simethicone (Mylicon Liquid -) 40 mg GT QID PRN PRN Reason: CONSTIPATION Tamsulosin HCl (Flomax -) 0.4 mg PO DAILY@0830 [facility] Last Admin: 03/07/18 08:04 Dose: 0.4 mg - Objective Vital Signs: Vital Signs Temperature 98.3 F 03/07/18 09:14 Pulse Rate 55 L 03/07/18 09:14 Respiratory Rate 20 03/07/18 11:01 Blood Pressure 121/46 03/07/18 09:14 O2 Sat by Pulse Oximetry (%) 99 03/07/18 11:06 Constitutional: Yes: No Distress, Calm Cardiovascular: Yes: Pulse Irregular Respiratory: Yes: Mechanically Ventilated, Other (trach collar) Gastrointestinal: Yes: Soft, Other (peg in place) Extremities: Yes: WNL Neurological: Yes: Alert, Other Labs: CBC, BMP 03/07/18 08:50 03/07/18 08:50 INR, PTT INR 1.13 (0.82-1.09) 02/16/18 22:40 Assessment/Plan Problem List - Problems (1) Anemia Code(s): D64.9 - ANEMIA, UNSPECIFIED (2) Chronic kidney disease, stage 3 Code(s): N18.3 - CHRONIC KIDNEY DISEASE, STAGE 3 (MODERATE) (3) Chronic respiratory failure Code(s): J96.10 - CHRONIC RESPIRATORY FAILURE, UNSP W HYPOXIA OR HYPERCAPNIA Qualifiers: Respiratory failure complication: unspecified whether with hypoxia or hypercapnia Qualified Code(s): J96.10 - Chronic respiratory failure, unspecified whether with hypoxia or hypercapnia (4) PAF (paroxysmal atrial fibrillation) Code(s): I48.0 - PAROXYSMAL ATRIAL FIBRILLATION (5) Renal failure Code(s): N19 - UNSPECIFIED KIDNEY FAILURE Qualifiers: Renal failure chronicity: unspecified chronicity Qualified Code(s): N19 - Unspecified kidney failure (6) Diabetes Code(s): E11.9 - TYPE 2 DIABETES MELLITUS WITHOUT COMPLICATIONS (7) TBI (traumatic brain injury) Code(s): S06.9X9A - UNSP INTRACRANIAL INJURY W LOC OF UNSP DURATION, INIT (8) Jjwmt-bj-fcxsksd kidney injury Code(s): N17.9 - ACUTE KIDNEY FAILURE, UNSPECIFIED; N18.9 - CHRONIC KIDNEY DISEASE, UNSPECIFIED (9) Pglxl-cm-mhjepyl renal failure Code(s): N17.9 - ACUTE KIDNEY FAILURE, UNSPECIFIED; N18.9 - CHRONIC KIDNEY DISEASE, UNSPECIFIED (10) Hypotension Code(s): I95.9 - HYPOTENSION, UNSPECIFIED (11) Hypotension Code(s): I95.9 - HYPOTENSION, UNSPECIFIED 12 gi bleed 13 difuleoy lesion 14 rash I plan continue to monitor off of abx nutrition rest as per primary care monitor abd as per pul suctioning if needed
[2018-03-07] MEDS: COLLAGENASE CLOSTRIDIUM HIST. 30 GRAMS TUBE TP SCH (12:08)
[2018-03-07] MEDS: SIMETHICONE 40 MG/0.6 ML BOTTLE GT PRN (17:08)
--- NOTE | 2018-03-07 20:08 | PN ---
Physical Exam: SUBJECTIVE: Patient seen and examined at bedside. Nursing was concerned of air possibly around the PEG tube, was evaluated by Dr. Gimenez and determined to be adequate. OBJECTIVE: Vital Signs Period Temp Pulse Resp BP Sys/Wills Pulse Ox Last 24 Hr 98.3 F-99.9 F 55-72 14-20 106-121/46-58 94-99 Vital Signs Temp 99.9 F H 03/07/18 15:38 Pulse 65 03/07/18 15:38 Resp 18 03/07/18 18:14 BP 111/57 03/07/18 15:38 Pulse Ox 99 03/07/18 11:06 Intake & Output 03/06/18 03/07/18 03/07/18 23:59 11:59 23:59 Intake Total 1100 1500 Output Total 1750 400 400 Balance -650 1100 -400 Weight 73.028 kg Intake: Oral 0 Tube Feeding 550 1000 Tube Irrigant 550 500 Output: Urine 1750 400 400 Christopher 1750 400 400 Other: Voiding Method Indwelling Catheter Indwelling Catheter Indwelling Catheter Bowel Movement Yes Yes Yes # Bowel Movements 1 Weight Measurement Method Patient Lift Scale GENERAL: Resting comfortably, Nonverbal EYES: Eyes open sporadically, unable to exam LUNGS: Mechanical Breath sounds anteriorly, Unable to evaluate posterior as patient does not respond to commands HEART: Regular rate and rhythm, S1, S2 without murmur, rub or gallop. ABDOMEN: Soft, Distended, normoactive bowel sounds, PEG tube present without bleeding, drainage NEUROLOGICAL: Upper extremities contracted b/l Laboratory Results - last 24 hr 03/06/18 03/07/18 03/07/18 23:24 06:48 08:50 WBC 5.6 RBC 2.70 L Hgb 8.2 L Hct 24.9 L MCV 92.1 MCH 30.3 MCHC 32.9 RDW 20.3 H Plt Count 146 MPV 9.1 Absolute Neuts (auto) 4.4 Neutrophils % 79.3 Lymphocytes % 12.5 D Monocytes % 6.2 Eosinophils % 1.5 Basophils % 0.5 Nucleated RBC % 0 Sodium Potassium Chloride Carbon Dioxide Anion Gap BUN Creatinine Creat Clearance w eGFR POC Glucometer 139 141 Random Glucose Calcium Total Bilirubin AST ALT Alkaline Phosphatase Total Protein Albumin 03/07/18 03/07/18 03/07/18 08:50 11:29 16:37 WBC RBC Hgb Hct MCV MCH MCHC RDW Plt Count MPV Absolute Neuts (auto) Neutrophils % Lymphocytes % Monocytes % Eosinophils % Basophils % Nucleated RBC % Sodium 139 Potassium 4.6 Chloride 108 H Carbon Dioxide 24 Anion Gap 7 L BUN 78 H Creatinine 1.7 H Creat Clearance w eGFR 38.50 POC Glucometer 135 143 Random Glucose 115 H D Calcium 7.7 L Total Bilirubin 0.3 AST 136 H D ALT 175 H Alkaline Phosphatase 201 H D Total Protein 5.5 L Albumin 2.0 L Active Medications Acetaminophen (Tylenol -) 650 mg PO Q4H PRN PRN Reason: FEVER Amino Acids (Prosource No Carb Liquid Pkt) 30 ml PO BID@0800,1730 [facility] Last Admin: 03/07/18 16:40 Dose: 30 ml Artificial Tears (Artificial Tears) 2 drop OU BID [facility] Last Admin: 03/07/18 09:07 Dose: 2 drop Atorvastatin Calcium (Lipitor -) 10 mg GT HS [facility] Last Admin: 03/06/18 23:32 Dose: 10 mg Collagenase (Santyl -) 1 applic TP DAILY [facility] Last Admin: 03/07/18 12:08 Dose: 1 applic Diltiazem HCl (Cardizem Injection -) 10 mg IVPUSH Q6H PRN PRN Reason: TACHYCARDIA Last Admin: 03/02/18 09:45 Dose: 10 mg Docusate Sodium (Colace Liquid -) 100 mg PO DAILY PRN PRN Reason: CONSTIPATION Ferrous Sulfate (Feosol) 300 mg GT DAILY [facility] Last Admin: 03/07/18 09:03 Dose: 300 mg Insulin Aspart (Novolog Vial Sliding Scale -) 1 vial SQ [facility]; Protocol Last Admin: 03/07/18 16:39 Dose: Not Given Insulin Detemir (Levemir Vial) 14 units SQ [facility] Last Admin: 03/06/18 23:34 Dose: 14 units Levothyroxine Sodium (Synthroid -) 37.5 mcg PEG DAILY@0700 [facility] Last Admin: 03/07/18 06:49 Dose: 37.5 mcg Metoprolol Tartrate (Lopressor -) 25 mg PO BID [facility] Last Admin: 03/07/18 09:03 Dose: 25 mg Non-Formulary Medication (Non-Formulary Med) 1 each GT DAILY [facility] Last Admin: 03/07/18 09:04 Dose: 1 each Nystatin (Nystop Powder -) 1 applic TP BID [facility] Last Admin: 03/07/18 09:07 Dose: 1 applic Oxybutynin Chloride (Ditropan -) 5 mg NGT BID [facility] Last Admin: 03/07/18 09:02 Dose: 5 mg Pantoprazole Sodium (Protonix Packets For Oral Suspension -) 40 mg NGT DAILY [facility] Last Admin: 03/07/18 09:02 Dose: 40 mg Senna (Senna Oral Solution -) 8.8 mg GT HS [facility] Last Admin: 03/06/18 23:33 Dose: 8.8 mg Sertraline HCl (Zoloft -) 50 mg PO DAILY [facility] Last Admin: 03/07/18 09:02 Dose: 50 mg Simethicone (Mylicon Liquid -) 40 mg GT QID PRN PRN Reason: CONSTIPATION Last Admin: 03/07/18 17:08 Dose: 40 mg Tamsulosin HCl (Flomax -) 0.4 mg PO DAILY@0830 [facility] Last Admin: 03/07/18 08:04 Dose: 0.4 mg ASSESSMENT/PLAN: 87 year old male with a PMHx significant for Diastolic heart failure, NIDDM, CKD , and 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 Admitted on 02/17/18 from [facility] for chronic respiratory failure and severe anemia with a hg of 5.5 and hypotension. 1. Acute on chronic respiratory failure - Due to aspiration PNA that has now improved, patient has returned to baseline vent settings - Not weanable due to poor mental status - Pulmonary (Dr. Perez) consulted, Appreciate recommendations 2. Aspiration PNA - Completed course of Zosyn, Not on any other ABx - ID (Dr. Garza) consulted, Appreciate recommendations 3. Acute Transaminitis - AST 1: 136 (03/06: 276) - ALT /1: 175 (03/06: 169) - Has hx of similar episode on 02/01/18 that self-resolved - Will continue to monitor, CMP pending tmrw 4. Multifactorial anemia with UGIB - s/p EGD with Diluefoy lesion - s/p heat probe and epi - s/p 10 units PRBC this hospital stay - Hgb stable at 8.2 today (03/06: 8.1), no indication for transfusion - Hematology consulted, Appreciate recommendations - Continue Ferrous Sulfate 300 mg GT DAILY [facility] 5. Acute on CKD - Hypoperfusion - BUN remains elevated at 78, down from 134 on admission, likely due to GI bleed - Cr remains elevated at 1.7, down from 2.4 on admission - No longer on steroids - CMP pending tmrw, will continue to monitor - Nephrology consulted, Appreciate recommendations 6. New onset Afib - rate controlled, Continue Metoprolol Tartrate 25 mg PO BID LILIA - Not a candidate for anticoagulation due to recent GI bleed - Cardiology consulted, Appreciate recommendations 7. Hypernatremia - resolved - will continue water flushes and monitor 8. Thrombophilia - stable off medications 9. DM - Improved - Continue Insulin Aspart SQ ACHS LILIA - Continue Insulin Detemir SQ HS [facility] 10. 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 Hypothyroid - Continue Synthroid 37.5 mcg PEG DAILY @ 0700 [facility] 12. Urinary incontinence - Chronic indwelling christopher. cont oxybutin/flomax - Continue Flomax 0.4 mg PO DAILY@0830 LILIA - Continue Oxybutynin Chloride 5 mg BID [facility] 13. Depression - Continue on Sertraline HCl 50 mg PO DAILY [facility] 14. DVT ppx - SCD - Not a candidate for anticoagulation due to recent GI Bleed 15. Dispo - Medically optimized at this time - Family requests transfer to [place]. Accepted and awaiting bed placement Visit type - Emergency Visit Emergency Visit: Yes ED Registration Date: 02/17/18 Care time: The patient presented to the Emergency Department on the above date and was hospitalized for further evaluation of their emergent condition. - New Patient This patient is new to me today: Yes Date on this admission: 03/07/18 - Critical Care Critical Care patient: No - Discharge Referral Referred to [facility] Med P.C.: No
[2018-03-07] MEDS: ATORVASTATIN CA 10 MG TABLET (FP) GT SCH (21:54)
[2018-03-07] MEDS: INSULIN (LEVEMIR) 100 UNITS/ML UNITS SQ SCH (21:54)
[2018-03-07] MEDS: SENNOSIDES 8.8 MG/5 ML BULK BOTTLE GT SCH (21:56)
[2018-03-08] MEDS: INSULIN SLIDING SCALE (NOVOLOG) 1 VIAL SQ SCH ×4 (06:38→22:40)
[2018-03-08] MEDS: LEVOTHYROXINE NA 25 MCG TABLET (FP) PEG SCH (06:38)
[2018-03-08 07:32] LABS: CHLORIDE 107 mmol/L (98-107); POTASSIUM 4.4 mmol/L (3.5-5.1); SODIUM 140 mmol/L (136-145)
[2018-03-08 07:41] LABS: ALBUMIN 1.8 g/dl (3.4-5.0); ALK PHOS 186 U/L (45-117); ANION GAP 8 (8-16); BILIRUBIN,TOTAL 0.3 mg/dL (0.2-1.0); BLOOD UREA NITROGEN 87 mg/dL (7-18); CALCIUM 7.7 mg/dL (8.5-10.1); CO2 25 mmol/L (21-32); CREATININE 1.7 mg/dL (0.7-1.3); GLUCOSE,RANDOM 82 mg/dL (74-106); SGOT/AST 84 U/L (15-37); SGPT/ALT 134 U/L (12-78); TOT PROT 5.3 g/dl (6.4-8.2)
[2018-03-08] MEDS: AMINO ACIDS/PROTEIN HYDROLYS 30 ML LIQUID.PKT PO SCH ×2 (08:30→18:07)
[2018-03-08] MEDS ORDERED: PT OWN MED DRAWER 7, Y5N ONE ×2 (10:39→22:34)
[2018-03-08] MEDS: FERROUS SO4 300 MG/5 ML ORAL SOLN UNIT DOSE CUPS GT SCH (10:47)
[2018-03-08] MEDS: TAMSULOSIN HCL 0.4 MG CAP.ER.24H (FP) PO SCH (10:53)
[2018-03-08] MEDS: PANTOPRAZOLE SOD 40 MG SUSPENSION PACKET NGT SCH (10:58)
[2018-03-08] MEDS: OXYBUTYNIN CHLORIDE 5 MG TABLET NGT SCH ×2 (10:59→22:36)
[2018-03-08] MEDS: SERTRALINE HCL 25 MG TABLET (FP) PO SCH (10:59)
[2018-03-08] MEDS: ARTIFICIAL TEARS (POLYVINYL ALCOHOL 1.4%) OPTH DROPS OU SCH ×2 (10:59→22:36)
[2018-03-08] MEDS: METOPROLOL TARTRATE 25 MG TABLET (FP) PO SCH ×2 (10:59→22:37)
[2018-03-08] MEDS: NON-FORMULARY MED GT SCH (11:00)
--- NOTE | 2018-03-08 11:34 | PN ---
Progress Note (short form) - Note Progress Note: PULMONARY Vented on volume assist control. No fevers recorded. Vital Signs Period Temp Pulse Resp BP Sys/Wills Pulse Ox Last 24 Hr 97.6 F-99.9 F 56-65 14-21 111-127/54-64 95-97 Gen: vented, more awake Heart: RRR Lung: decreased breath sounds at the bases Abd: soft, nontender Ext: no edema CBC, BMP 03/07/18 08:50 03/08/18 06:10 Active Medications Acetaminophen (Tylenol -) 650 mg PO Q4H PRN PRN Reason: FEVER Amino Acids (Prosource No Carb Liquid Pkt) 30 ml PO BID@0800,1730 [facility] Last Admin: 03/08/18 08:30 Dose: 30 ml Artificial Tears (Artificial Tears) 2 drop OU BID [facility] Last Admin: 03/08/18 10:59 Dose: 2 drop Atorvastatin Calcium (Lipitor -) 10 mg GT HS [facility] Last Admin: 03/07/18 21:54 Dose: 10 mg Collagenase (Santyl -) 1 applic TP DAILY [facility] Last Admin: 03/07/18 12:08 Dose: 1 applic Diltiazem HCl (Cardizem Injection -) 10 mg IVPUSH Q6H PRN PRN Reason: TACHYCARDIA Last Admin: 03/02/18 09:45 Dose: 10 mg Docusate Sodium (Colace Liquid -) 100 mg PO DAILY PRN PRN Reason: CONSTIPATION Ferrous Sulfate (Feosol) 300 mg GT DAILY [facility] Last Admin: 03/08/18 10:47 Dose: 300 mg Insulin Aspart (Novolog Vial Sliding Scale -) 1 vial SQ [facility]; Protocol Last Admin: 03/08/18 06:38 Dose: Not Given Insulin Detemir (Levemir Vial) 14 units SQ [facility] Last Admin: 03/07/18 21:54 Dose: 14 units Levothyroxine Sodium (Synthroid -) 37.5 mcg PEG DAILY@0700 [facility] Last Admin: 03/08/18 06:38 Dose: 37.5 mcg Metoprolol Tartrate (Lopressor -) 25 mg PO BID [facility] Last Admin: 03/08/18 10:59 Dose: 25 mg Non-Formulary Medication (Non-Formulary Med) 1 each GT DAILY [facility] Last Admin: 03/08/18 11:00 Dose: 1 each Nystatin (Nystop Powder -) 1 applic TP BID [facility] Last Admin: 03/07/18 21:57 Dose: 1 applic Oxybutynin Chloride (Ditropan -) 5 mg NGT BID [facility] Last Admin: 03/08/18 10:59 Dose: 5 mg Pantoprazole Sodium (Protonix Packets For Oral Suspension -) 40 mg NGT DAILY [facility] Last Admin: 03/08/18 10:58 Dose: 40 mg Senna (Senna Oral Solution -) 8.8 mg GT HS [facility] Last Admin: 03/07/18 21:56 Dose: 8.8 mg Sertraline HCl (Zoloft -) 50 mg PO DAILY [facility] Last Admin: 03/08/18 10:59 Dose: 50 mg Simethicone (Mylicon Liquid -) 40 mg GT QID PRN PRN Reason: CONSTIPATION Last Admin: 03/07/18 17:08 Dose: 40 mg Tamsulosin HCl (Flomax -) 0.4 mg PO DAILY@0830 [facility] Last Admin: 03/08/18 10:53 Dose: 0.4 mg A/P GI Bleed/Gastric Dieulafoy Lesion s/p EGD/epi/cautery Acute Blood Loss Anemia Chronic Respiratory Failure Pneumonia h/o Traumatic Brain Injury Functional Quadriplegia Acute on Chronic Renal Failure Atrial Fibrillation DM Dementia - monitor H/H - protonix - antibiotics per ID - rate control - holding anticoagulation - continue volume assist control - poor candidate for weaning due to poor mental status - enteral feeds as tolerated - DVT/GI prophylaxis
[2018-03-08] MEDS: COLLAGENASE CLOSTRIDIUM HIST. 30 GRAMS TUBE TP SCH (12:08)
[2018-03-08] MEDS: NYSTATIN POWDER 100,000 UNITS/GM - 15 GM TOPICAL POWDER TP SCH ×2 (12:08→22:40)
--- NOTE | 2018-03-08 12:45 | PN ---
Progress Note (short form) - Note Progress Note: Renal Follow up for CKD/KATERIN Pt seen and examined at the bedside awake on vent no overnight events no fevers good urine output Vital Signs Temperature 97.6 F 03/08/18 10:00 Pulse Rate 56 L 03/08/18 10:00 Respiratory Rate 21 03/08/18 11:00 Blood Pressure 115/58 03/08/18 10:00 O2 Sat by Pulse Oximetry (%) 97 03/08/18 10:41 Intake & Output 03/05/18 03/06/18 03/07/18 03/08/18 23:59 23:59 23:59 23:59 Intake Total 1200 2350 1500 950 Output Total 1400 1750 1150 700 Balance -200 600 350 250 Weight 73.028 kg 72.665 kg 73.028 kg NAD on vent via trach No rales no Le edema christopher in place CBC, BMP 03/07/18 08:50 03/08/18 06:10 Current Medications Acetaminophen (Tylenol -) 650 mg PO Q4H PRN PRN Reason: FEVER Amino Acids (Prosource No Carb Liquid Pkt) 30 ml PO BID@0800,1730 [facility] Last Admin: 03/08/18 08:30 Dose: 30 ml Artificial Tears (Artificial Tears) 2 drop OU BID [facility] Last Admin: 03/08/18 10:59 Dose: 2 drop Atorvastatin Calcium (Lipitor -) 10 mg GT HS [facility] Last Admin: 03/07/18 21:54 Dose: 10 mg Collagenase (Santyl -) 1 applic TP DAILY [facility] Last Admin: 03/08/18 12:08 Dose: 1 applic Diltiazem HCl (Cardizem Injection -) 10 mg IVPUSH Q6H PRN PRN Reason: TACHYCARDIA Last Admin: 03/02/18 09:45 Dose: 10 mg Docusate Sodium (Colace Liquid -) 100 mg PO DAILY PRN PRN Reason: CONSTIPATION Ferrous Sulfate (Feosol) 300 mg GT DAILY [facility] Last Admin: 03/08/18 10:47 Dose: 300 mg Insulin Aspart (Novolog Vial Sliding Scale -) 1 vial SQ [facility]; Protocol Last Admin: 03/08/18 12:09 Dose: Not Given Insulin Detemir (Levemir Vial) 14 units SQ [facility] Last Admin: 03/07/18 21:54 Dose: 14 units Levothyroxine Sodium (Synthroid -) 37.5 mcg PEG DAILY@0700 [facility] Last Admin: 03/08/18 06:38 Dose: 37.5 mcg Metoprolol Tartrate (Lopressor -) 25 mg PO BID [facility] Last Admin: 03/08/18 10:59 Dose: 25 mg Non-Formulary Medication (Non-Formulary Med) 1 each GT DAILY [facility] Last Admin: 03/08/18 11:00 Dose: 1 each Nystatin (Nystop Powder -) 1 applic TP BID [facility] Last Admin: 03/08/18 12:08 Dose: 1 applic Oxybutynin Chloride (Ditropan -) 5 mg NGT BID [facility] Last Admin: 03/08/18 10:59 Dose: 5 mg Pantoprazole Sodium (Protonix Packets For Oral Suspension -) 40 mg NGT DAILY [facility] Last Admin: 03/08/18 10:58 Dose: 40 mg Senna (Senna Oral Solution -) 8.8 mg GT HS [facility] Last Admin: 03/07/18 21:56 Dose: 8.8 mg Sertraline HCl (Zoloft -) 50 mg PO DAILY [facility] Last Admin: 03/08/18 10:59 Dose: 50 mg Simethicone (Mylicon Liquid -) 40 mg GT QID PRN PRN Reason: CONSTIPATION Last Admin: 03/07/18 17:08 Dose: 40 mg Tamsulosin HCl (Flomax -) 0.4 mg PO DAILY@0830 [facility] Last Admin: 03/08/18 10:53 Dose: 0.4 mg 87 year old man with a significant past medical history of 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 #CKD Stage 3 with higher then baseline BUN/Cr #GI bleed #Anemia #Hypokalemia #Hypernatremia Renal function improved and stable pt w/o overt volume overload, acidosis or hyperaklemia to warrant [employer] continue tube feeds with free water awaiting transfer to tertiary care center will sign off case at this time please call back with any questions or concerns Frank Ayoub DO
--- NOTE | 2018-03-08 13:29 | PN ---
Progress Note, Physician History of Present Illness: 87M w/ pmh of traumatic fall (s/p neck (C4,5, and 6)/back surgery, tracheotomy placement now ventilator dependent, and PEG tube placement), frequent pneumonia , emphysema, A-fib, CHF, DM, dementia, renal failure, nonverbal TBI, paraplegia , and legal blindness and deafness, who presents to the emergency department via EMS from [facility] with 3 days of hypotension. As per patients son , his blood pressure has been decreasing over the past few days. He reports that at baseline, his systolic is between 110-119 in the mornings and between 100-109 at night. Pt has failed 5 weaning trials in the last few days, and it was noticed that there was blood around the tracheostomy site when suctioning. Pt' son denies recent fevers, chills, chest pain, emesis, hematemesis, melena, and hematochezia in pt. - Current Medication List Current Medications: Active Medications Acetaminophen (Tylenol -) 650 mg PO Q4H PRN PRN Reason: FEVER Amino Acids (Prosource No Carb Liquid Pkt) 30 ml PO BID@0800,1730 [facility] Last Admin: 03/08/18 08:30 Dose: 30 ml Artificial Tears (Artificial Tears) 2 drop OU BID [facility] Last Admin: 03/08/18 10:59 Dose: 2 drop Atorvastatin Calcium (Lipitor -) 10 mg GT HS [facility] Last Admin: 03/07/18 21:54 Dose: 10 mg Collagenase (Santyl -) 1 applic TP DAILY [facility] Last Admin: 03/08/18 12:08 Dose: 1 applic Diltiazem HCl (Cardizem Injection -) 10 mg IVPUSH Q6H PRN PRN Reason: TACHYCARDIA Last Admin: 03/02/18 09:45 Dose: 10 mg Docusate Sodium (Colace Liquid -) 100 mg PO DAILY PRN PRN Reason: CONSTIPATION Ferrous Sulfate (Feosol) 300 mg GT DAILY [facility] Last Admin: 03/08/18 10:47 Dose: 300 mg Insulin Aspart (Novolog Vial Sliding Scale -) 1 vial SQ [facility]; Protocol Last Admin: 03/08/18 12:09 Dose: Not Given Insulin Detemir (Levemir Vial) 14 units SQ [facility] Last Admin: 03/07/18 21:54 Dose: 14 units Levothyroxine Sodium (Synthroid -) 37.5 mcg PEG DAILY@0700 [facility] Last Admin: 03/08/18 06:38 Dose: 37.5 mcg Metoprolol Tartrate (Lopressor -) 25 mg PO BID [facility] Last Admin: 03/08/18 10:59 Dose: 25 mg Non-Formulary Medication (Non-Formulary Med) 1 each GT DAILY [facility] Last Admin: 03/08/18 11:00 Dose: 1 each Nystatin (Nystop Powder -) 1 applic TP BID [facility] Last Admin: 03/08/18 12:08 Dose: 1 applic Oxybutynin Chloride (Ditropan -) 5 mg NGT BID [facility] Last Admin: 03/08/18 10:59 Dose: 5 mg Pantoprazole Sodium (Protonix Packets For Oral Suspension -) 40 mg NGT DAILY [facility] Last Admin: 03/08/18 10:58 Dose: 40 mg Senna (Senna Oral Solution -) 8.8 mg GT HS [facility] Last Admin: 03/07/18 21:56 Dose: 8.8 mg Sertraline HCl (Zoloft -) 50 mg PO DAILY [facility] Last Admin: 03/08/18 10:59 Dose: 50 mg Simethicone (Mylicon Liquid -) 40 mg GT QID PRN PRN Reason: CONSTIPATION Last Admin: 03/07/18 17:08 Dose: 40 mg Tamsulosin HCl (Flomax -) 0.4 mg PO DAILY@0830 [facility] Last Admin: 03/08/18 10:53 Dose: 0.4 mg - Objective Vital Signs: Vital Signs Temperature 97.6 F 03/08/18 10:00 Pulse Rate 56 L 03/08/18 10:00 Respiratory Rate 21 03/08/18 11:00 Blood Pressure 115/58 03/08/18 10:00 O2 Sat by Pulse Oximetry (%) 97 03/08/18 10:41 Eyes: Yes: WNL, Conjunctiva Clear, EOM Intact HENT: Yes: WNL, Atraumatic, Normocephalic Neck: Yes: WNL, Supple, Trachea Midline Cardiovascular: Yes: WNL, Regular Rate and Rhythm Respiratory: Yes: Mechanically Ventilated Gastrointestinal: Yes: WNL, Normal Bowel Sounds Genitourinary: Yes: WNL Musculoskeletal: Yes: WNL Extremities: Yes: WNL Edema: No Integumentary: Yes: WNL Neurological: Yes: WNL, Alert, Oriented ...Motor Strength: WNL Psychiatric: Yes: WNL Labs: CBC, BMP 03/07/18 08:50 03/08/18 06:10 INR, PTT INR 1.13 (0.82-1.09) 02/16/18 22:40 Assessment/Plan - Problems (1) Anemia Assessment/Plan: s/p EGD, cauterization, and PRBCs. Maintain hydration. F/u BUn/Cr, Hb (8.5 today). Code(s): D64.9 - ANEMIA, UNSPECIFIED Qualifiers: Anemia type: due to chronic kidney disease Chronic kidney disease stage: unspecified stage Qualified Code(s): N18.9 - Chronic kidney disease, unspecified; D63.1 - Anemia in chronic kidney disease (2) Chronic kidney disease, stage 3 Assessment/Plan: f/u with dermatological surgeon; Improving BUN/Cr since GI cauterization. Code(s): N18.3 - CHRONIC KIDNEY DISEASE, STAGE 3 (MODERATE) (3) Chronic respiratory failure Assessment/Plan: Ventilator dependent; on trach. On Assist control. Code(s): J96.10 - CHRONIC RESPIRATORY FAILURE, UNSP W HYPOXIA OR HYPERCAPNIA Qualifiers: Respiratory failure complication: unspecified whether with hypoxia or hypercapnia Qualified Code(s): J96.10 - Chronic respiratory failure, unspecified whether with hypoxia or hypercapnia (4) Hematuria Code(s): R31.9 - HEMATURIA, UNSPECIFIED (5) PAF (paroxysmal atrial fibrillation) Assessment/Plan: EKG 02/23/18: AF with RVR (HR 150 bpm); now has HR in 80s bpm. Increased metoprolol to 25 mg bid (pt has required occasional IV diltiazem for rapid VR); f/u HR and BP, and increase metoprolol as tolerated. If pt becomes profoundly bradycardia, will have to consider PPM. anticoagulation held due to GI bleed. TSH 3.59 recently. Code(s): I48.0 - PAROXYSMAL ATRIAL FIBRILLATION (6) S/P percutaneous endoscopic gastrostomy (PEG) tube placement Assessment/Plan: site appears intact Code(s): Z93.1 - GASTROSTOMY STATUS (7) Acute on chronic diastolic CHF (congestive heart failure) Code(s): I50.33 - ACUTE ON CHRONIC DIASTOLIC (CONGESTIVE) HEART FAILURE (8) Sinus bradycardia Code(s): R00.1 - BRADYCARDIA, UNSPECIFIED (9) TBI (traumatic brain injury) Code(s): S06.9X9A - UNSP INTRACRANIAL INJURY W LOC OF UNSP DURATION, INIT Qualifiers: Encounter type: sequela Loss of consciousness presence/duration: with LOC of unspecified duration Qualified Code(s): S06.9X9S - Unspecified intracranial injury with loss of consciousness of unspecified duration, sequela (10) Severe mitral regurgitation Code(s): I34.0 - NONRHEUMATIC MITRAL (VALVE) INSUFFICIENCY (11) Hypokalemia Assessment/Plan: Keep K+ 4-4.5 (4.8 today). F/u Mg, and keep 2-2.3 Keep PO4 2.5-3.5 Code(s): E87.6 - HYPOKALEMIA (12) Hypoalbuminemia Code(s): E88.09 - OTH DISORDERS OF PLASMA-PROTEIN METABOLISM, NEC
--- NOTE | 2018-03-08 14:58 | PN ---
Teaching Attending Note Name of Resident: Erica See ATTENDING PHYSICIAN STATEMENT I saw and evaluated the patient. I reviewed the resident's note and discussed the case with the resident. I agree with the resident's findings and plan as documented. SUBJECTIVE:resting comfortable OBJECTIVE: Last Vital Signs Temp Pulse Resp BP Pulse Ox 97.6 F 56 L 15 115/58 97 03/08/18 10:00 03/08/18 10:00 03/08/18 14:08 03/08/18 10:00 03/08/18 10:41 General resting comfortable, spontaneous eye opening Abdomen soft +distended. 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 Admitted on 02/17/18 from [facility] chronic respiratory failure and severe anemia with a hg of 5.5 and hypotension. 1. Acute on chronic respiratory failure- due to aspiration PNA. now improved. has returned to baseline vent settings. not weanable due to poor mental status. off steroids. pulmonary on board 2. Aspiration PNA-completed extended course of zosyn. off all abx now. ID on board 3. macular rash-possible drug reaction vs heat rash. now resolved. 4. acute transaminitis- possible cholestasis? similar episode on 02/01/18. trending down 7. Multifactorial anemia with Upper GI bleed- s/p EGD with Diluefoy lesion s/p heat probe and epi. s/p 10 units PRBC this hospital stay. Hgb stable. no indication for transfusion. hematology on board. on iron supplementation 8. Acute on CKD- hypoperfusion. stable. likely new baseline. elevated BUN likely due to GI bleed. now off steroids. cont to monitor. nephro on board 9. new onset afib- rate controlled. cont metoprolol. not a candidate for anticoagulation iwth recent GI bleed. echo reviewed. cardio on board 10. Hypernatremia- resolved. cont water flushes. monitor 11. Thrombophilia-stable. off medications 12. DM-improved. cont levemir. cont iss. titrate as needed to optimize control 13. TBI- s/p trach and PEG 14. 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 15. legally blind and deaf 16. hypothyroid- on Lt4 17. urinary incontinence- with chronic indwelling christopher. cont oxybutin/flomax 18. depression- on zoloft 19. DVT ppx- SCD. would hold pharmacologic anticoagulation with recent GI bleed 20. medically optimized at this time. family now requesting transfer to [place]. Accepted and awaiting insurance authorization. Spoke with Dr Garcia today who is part of GI service there and updated on current status. Accepting doctor is Dr Schumacher
--- NOTE | 2018-03-08 15:39 | PN ---
Progress Note, Physician History of Present Illness: no changes vented - Current Medication List Current Medications: Active Medications Acetaminophen (Tylenol -) 650 mg PO Q4H PRN PRN Reason: FEVER Amino Acids (Prosource No Carb Liquid Pkt) 30 ml PO BID@0800,1730 [facility] Last Admin: 03/08/18 08:30 Dose: 30 ml Artificial Tears (Artificial Tears) 2 drop OU BID [facility] Last Admin: 03/08/18 10:59 Dose: 2 drop Atorvastatin Calcium (Lipitor -) 10 mg GT HS [facility] Last Admin: 03/07/18 21:54 Dose: 10 mg Collagenase (Santyl -) 1 applic TP DAILY [facility] Last Admin: 03/08/18 12:08 Dose: 1 applic Diltiazem HCl (Cardizem Injection -) 10 mg IVPUSH Q6H PRN PRN Reason: TACHYCARDIA Last Admin: 03/02/18 09:45 Dose: 10 mg Docusate Sodium (Colace Liquid -) 100 mg PO DAILY PRN PRN Reason: CONSTIPATION Ferrous Sulfate (Feosol) 300 mg GT DAILY [facility] Last Admin: 03/08/18 10:47 Dose: 300 mg Insulin Aspart (Novolog Vial Sliding Scale -) 1 vial SQ [facility]; Protocol Last Admin: 03/08/18 12:09 Dose: Not Given Insulin Detemir (Levemir Vial) 14 units SQ [facility] Last Admin: 03/07/18 21:54 Dose: 14 units Levothyroxine Sodium (Synthroid -) 37.5 mcg PEG DAILY@0700 [facility] Last Admin: 03/08/18 06:38 Dose: 37.5 mcg Metoprolol Tartrate (Lopressor -) 25 mg PO BID [facility] Last Admin: 03/08/18 10:59 Dose: 25 mg Non-Formulary Medication (Non-Formulary Med) 1 each GT DAILY [facility] Last Admin: 03/08/18 11:00 Dose: 1 each Nystatin (Nystop Powder -) 1 applic TP BID [facility] Last Admin: 03/08/18 12:08 Dose: 1 applic Oxybutynin Chloride (Ditropan -) 5 mg NGT BID [facility] Last Admin: 03/08/18 10:59 Dose: 5 mg Pantoprazole Sodium (Protonix Packets For Oral Suspension -) 40 mg NGT DAILY [facility] Last Admin: 03/08/18 10:58 Dose: 40 mg Senna (Senna Oral Solution -) 8.8 mg GT HS [facility] Last Admin: 03/07/18 21:56 Dose: 8.8 mg Sertraline HCl (Zoloft -) 50 mg PO DAILY [facility] Last Admin: 03/08/18 10:59 Dose: 50 mg Simethicone (Mylicon Liquid -) 40 mg GT QID PRN PRN Reason: CONSTIPATION Last Admin: 03/07/18 17:08 Dose: 40 mg Tamsulosin HCl (Flomax -) 0.4 mg PO DAILY@0830 [facility] Last Admin: 03/08/18 10:53 Dose: 0.4 mg - Objective Vital Signs: Vital Signs Temperature 97.6 F 03/08/18 10:00 Pulse Rate 56 L 03/08/18 10:00 Respiratory Rate 15 03/08/18 14:08 Blood Pressure 115/58 03/08/18 10:00 O2 Sat by Pulse Oximetry (%) 97 03/08/18 10:41 Constitutional: Yes: No Distress Cardiovascular: Yes: Pulse Irregular Respiratory: Yes: Mechanically Ventilated Gastrointestinal: Yes: Normal Bowel Sounds, Soft, Other (peg in place) Extremities: Yes: WNL Neurological: Yes: Other Labs: CBC, BMP 03/07/18 08:50 03/08/18 06:10 INR, PTT INR 1.13 (0.82-1.09) 02/16/18 22:40 Assessment/Plan Problem List - Problems (1) Anemia Code(s): D64.9 - ANEMIA, UNSPECIFIED (2) Chronic kidney disease, stage 3 Code(s): N18.3 - CHRONIC KIDNEY DISEASE, STAGE 3 (MODERATE) (3) Chronic respiratory failure Code(s): J96.10 - CHRONIC RESPIRATORY FAILURE, UNSP W HYPOXIA OR HYPERCAPNIA Qualifiers: Respiratory failure complication: unspecified whether with hypoxia or hypercapnia Qualified Code(s): J96.10 - Chronic respiratory failure, unspecified whether with hypoxia or hypercapnia (4) PAF (paroxysmal atrial fibrillation) Code(s): I48.0 - PAROXYSMAL ATRIAL FIBRILLATION (5) Renal failure Code(s): N19 - UNSPECIFIED KIDNEY FAILURE Qualifiers: Renal failure chronicity: unspecified chronicity Qualified Code(s): N19 - Unspecified kidney failure (6) Diabetes Code(s): E11.9 - TYPE 2 DIABETES MELLITUS WITHOUT COMPLICATIONS (7) TBI (traumatic brain injury) Code(s): S06.9X9A - UNSP INTRACRANIAL INJURY W LOC OF UNSP DURATION, INIT (8) Fjqgi-wz-pimbuzv kidney injury Code(s): N17.9 - ACUTE KIDNEY FAILURE, UNSPECIFIED; N18.9 - CHRONIC KIDNEY DISEASE, UNSPECIFIED (9) Oprwj-wj-opnqaiy renal failure Code(s): N17.9 - ACUTE KIDNEY FAILURE, UNSPECIFIED; N18.9 - CHRONIC KIDNEY DISEASE, UNSPECIFIED (10) Hypotension Code(s): I95.9 - HYPOTENSION, UNSPECIFIED (11) Hypotension Code(s): I95.9 - HYPOTENSION, UNSPECIFIED 12 gi bleed 13 difuleoy lesion 14 rash I plan continue to monitor off of abx nutrition rest as per primary care monitor abd as per pul suctioning if needed
--- NOTE | 2018-03-08 19:35 | PN ---
Physical Exam: SUBJECTIVE: Patient seen and examined resting comfortably at bedside. OBJECTIVE: Vital Signs Period Temp Pulse Resp BP Sys/Wills Pulse Ox Last 24 Hr 97.6 F-99.1 F 56-67 14-21 112-128/50-64 95-100 Vital Signs Temp 98.1 F 03/08/18 18:00 Pulse 60 03/08/18 18:00 Resp 15 03/08/18 18:18 BP 122/50 03/08/18 18:00 Pulse Ox 97 03/08/18 10:41 Intake & Output 03/07/18 03/08/18 03/08/18 23:59 11:59 23:59 Intake Total 0 950 1100 Output Total 750 700 Balance -926 630 7702 Intake: Oral 0 Tube Feeding 600 600 Tube Irrigant 350 500 Output: Urine 750 700 Christopher 750 700 Other: Voiding Method Indwelling Catheter Diaper Indwelling Catheter Bowel Movement No Yes: Loose # Bowel Movements 1 GENERAL: Resting comfortably, Nonverbal EYES: Eyes open sporadically, unable to exam LUNGS: Mechanical Breath sounds anteriorly, Unable to evaluate posterior as patient does not respond to commands HEART: Regular rate and rhythm, S1, S2 without murmur, rub or gallop. ABDOMEN: Soft, Distended, normoactive bowel sounds, PEG tube present without bleeding, drainage NEUROLOGICAL: Upper extremities contracted b/l Laboratory Results - last 24 hr 03/07/18 03/08/18 03/08/18 21:49 06:10 06:36 Sodium 140 Potassium 4.4 Chloride 107 Carbon Dioxide 25 Anion Gap 8 BUN 87 H Creatinine 1.7 H Creat Clearance w eGFR 38.50 POC Glucometer 192 108 Random Glucose 82 D Calcium 7.7 L Total Bilirubin 0.3 AST 84 H D ALT 134 H D Alkaline Phosphatase 186 H D Total Protein 5.3 L Albumin 1.8 L 03/08/18 03/08/18 12:09 18:08 Sodium Potassium Chloride Carbon Dioxide Anion Gap BUN Creatinine Creat Clearance w eGFR POC Glucometer 92 118 Random Glucose Calcium Total Bilirubin AST ALT Alkaline Phosphatase Total Protein Albumin Active Medications Acetaminophen (Tylenol -) 650 mg PO Q4H PRN PRN Reason: FEVER Amino Acids (Prosource No Carb Liquid Pkt) 30 ml PO BID@0800,1730 [facility] Last Admin: 03/08/18 18:07 Dose: 30 ml Artificial Tears (Artificial Tears) 2 drop OU BID [facility] Last Admin: 03/08/18 10:59 Dose: 2 drop Atorvastatin Calcium (Lipitor -) 10 mg GT HS [facility] Last Admin: 03/07/18 21:54 Dose: 10 mg Collagenase (Santyl -) 1 applic TP DAILY [facility] Last Admin: 03/08/18 12:08 Dose: 1 applic Diltiazem HCl (Cardizem Injection -) 10 mg IVPUSH Q6H PRN PRN Reason: TACHYCARDIA Last Admin: 03/02/18 09:45 Dose: 10 mg Docusate Sodium (Colace Liquid -) 100 mg PO DAILY PRN PRN Reason: CONSTIPATION Ferrous Sulfate (Feosol) 300 mg GT DAILY [facility] Last Admin: 03/08/18 10:47 Dose: 300 mg Insulin Aspart (Novolog Vial Sliding Scale -) 1 vial SQ [facility]; Protocol Last Admin: 03/08/18 18:09 Dose: Not Given Insulin Detemir (Levemir Vial) 14 units SQ [facility] Last Admin: 03/07/18 21:54 Dose: 14 units Levothyroxine Sodium (Synthroid -) 37.5 mcg PEG DAILY@0700 [facility] Last Admin: 03/08/18 06:38 Dose: 37.5 mcg Metoprolol Tartrate (Lopressor -) 25 mg PO BID [facility] Last Admin: 03/08/18 10:59 Dose: 25 mg Non-Formulary Medication (Non-Formulary Med) 1 each GT DAILY [facility] Last Admin: 03/08/18 11:00 Dose: 1 each Nystatin (Nystop Powder -) 1 applic TP BID [facility] Last Admin: 03/08/18 12:08 Dose: 1 applic Oxybutynin Chloride (Ditropan -) 5 mg NGT BID [facility] Last Admin: 03/08/18 10:59 Dose: 5 mg Pantoprazole Sodium (Protonix Packets For Oral Suspension -) 40 mg NGT DAILY [facility] Last Admin: 03/08/18 10:58 Dose: 40 mg Senna (Senna Oral Solution -) 8.8 mg GT HS [facility] Last Admin: 03/07/18 21:56 Dose: 8.8 mg Sertraline HCl (Zoloft -) 50 mg PO DAILY [facility] Last Admin: 03/08/18 10:59 Dose: 50 mg Simethicone (Mylicon Liquid -) 40 mg GT QID PRN PRN Reason: CONSTIPATION Last Admin: 03/07/18 17:08 Dose: 40 mg Tamsulosin HCl (Flomax -) 0.4 mg PO DAILY@0830 [facility] Last Admin: 03/08/18 10:53 Dose: 0.4 mg ASSESSMENT/PLAN: 87 year old male with a PMHx significant for Diastolic heart failure, NIDDM, CKD , and 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 Admitted on 02/17/18 from [facility] for chronic respiratory failure and severe anemia with a hg of 5.5 and hypotension. 1. Acute on chronic respiratory failure - Due to aspiration PNA that has now improved, patient has returned to baseline vent settings - Not weanable due to poor mental status - Pulmonary (Dr. Perez) consulted, Appreciate recommendations 2. Aspiration PNA - Completed course of Zosyn, Not on any other ABx - ID (Dr. Garza) consulted, Appreciate recommendations 3. Acute Transaminitis - AST/ALT Trending down - Has hx of similar episode on 02/01/18 that self-resolved - Will continue to monitor 4. Multifactorial anemia with UGIB - s/p EGD with Diluefoy lesion - s/p heat probe and epi - s/p 10 units PRBC this hospital stay - Hgb stable, no indication for transfusion - Hematology consulted, Appreciate recommendations - Continue Ferrous Sulfate 300 mg GT DAILY [facility] 5. Acute on CKD - Hypoperfusion - BUN remains elevated, likely due to GI bleed - Cr remains elevated - No longer on steroids - Will continue to monitor - Nephrology consulted, Appreciate recommendations 6. New onset Afib - rate controlled, Continue Metoprolol Tartrate 25 mg PO BID [facility] - Not a candidate for anticoagulation due to recent GI bleed - Cardiology consulted, Appreciate recommendations 7. Hypernatremia - resolved - will continue water flushes and monitor 8. Thrombophilia - stable off medications 9. DM - Improved - Continue Insulin Aspart SQ ACHS [facility] - Continue Insulin Detemir SQ HS [facility] 10. 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 Hypothyroid - Continue Synthroid 37.5 mcg PEG DAILY @ 0700 [facility] 12. Urinary incontinence - Chronic indwelling christopher. cont oxybutin/flomax - Continue Flomax 0.4 mg PO DAILY@0830 [facility] - Continue Oxybutynin Chloride 5 mg BID [facility] 13. Depression - Continue on Sertraline HCl 50 mg PO DAILY [facility] 14. DVT ppx - SCD - Not a candidate for anticoagulation due to recent GI Bleed 15. Dispo - Medically optimized at this time - Family requests transfer to [place]. Accepted and awaiting bed placement Visit type - Emergency Visit Emergency Visit: No - New Patient This patient is new to me today: No - Critical Care Critical Care patient: No
[2018-03-08] MEDS: ATORVASTATIN CA 10 MG TABLET (FP) GT SCH (22:37)
[2018-03-08] MEDS: SENNOSIDES 8.8 MG/5 ML BULK BOTTLE GT SCH (22:37)
[2018-03-08] MEDS: INSULIN (LEVEMIR) 100 UNITS/ML UNITS SQ SCH (22:41)
[2018-03-09] MEDS: INSULIN SLIDING SCALE (NOVOLOG) 1 VIAL SQ SCH ×4 (06:49→22:05)
[2018-03-09] MEDS: LEVOTHYROXINE NA 25 MCG TABLET (FP) PEG SCH (06:51)
[2018-03-09 09:16] LABS: BASO % 0.1 % (0-2.0); EOS % 1.2 % (0-4.5); HEMATOCRIT 23.4 % (35.4-49); HEMOGLOBIN 7.6 GM/dL (11.7-16.9); LYMPH % 12.4 % (8-40); MCH 29.9 pg (25.7-33.7); MCHC 32.3 g/dl (32.0-35.9); MEAN CELL VOLUME 92.8 fl (80-96); MONO % 6.9 % (3.8-10.2); NEUT % 79.4 % (42.8-82.8); PLATELET COUNT 132 K/MM3 (134-434); RBC 2.53 M/mm3 (4.00-5.60); RDW 19.6 % (11.9-15.9); WHITE BLOOD COUNT 5.6 K/mm3 (4.0-10.0)
[2018-03-09] MEDS ORDERED: PT OWN MED DRAWER 7, Y5N ONE ×3 (09:17→21:07)
[2018-03-09] MEDS: PANTOPRAZOLE SOD 40 MG SUSPENSION PACKET NGT SCH (09:27)
[2018-03-09] MEDS: METOPROLOL TARTRATE 25 MG TABLET (FP) PO SCH ×2 (09:28→22:05)
[2018-03-09] MEDS: TAMSULOSIN HCL 0.4 MG CAP.ER.24H (FP) PO SCH (09:28)
[2018-03-09] MEDS: SERTRALINE HCL 25 MG TABLET (FP) PO SCH (09:29)
[2018-03-09] MEDS: NON-FORMULARY MED GT SCH (09:30)
[2018-03-09] MEDS: NYSTATIN POWDER 100,000 UNITS/GM - 15 GM TOPICAL POWDER TP SCH ×2 (09:30→22:04)
[2018-03-09] MEDS: FERROUS SO4 300 MG/5 ML ORAL SOLN UNIT DOSE CUPS GT SCH (09:30)
[2018-03-09] MEDS: OXYBUTYNIN CHLORIDE 5 MG TABLET NGT SCH ×2 (09:30→22:03)
[2018-03-09] MEDS: AMINO ACIDS/PROTEIN HYDROLYS 30 ML LIQUID.PKT PO SCH ×2 (09:30→17:44)
[2018-03-09] MEDS: ARTIFICIAL TEARS (POLYVINYL ALCOHOL 1.4%) OPTH DROPS OU SCH ×2 (09:30→22:06)
[2018-03-09] MEDS: COLLAGENASE CLOSTRIDIUM HIST. 30 GRAMS TUBE TP SCH (09:31)
[2018-03-09 09:53] LABS: ALBUMIN 1.9 g/dl (3.4-5.0); ANION GAP 11 (8-16); BLOOD UREA NITROGEN 91 mg/dL (7-18); CALCIUM 7.6 mg/dL (8.5-10.1); CHLORIDE 105 mmol/L (98-107); CO2 24 mmol/L (21-32); CREATININE 1.6 mg/dL (0.7-1.3); GLUCOSE,RANDOM 87 mg/dL (74-106); MAGNESIUM 2.1 mg/dL (1.8-2.4); PHOSPHOROUS 3.6 mg/dL (2.5-4.9); POTASSIUM 4.2 mmol/L (3.5-5.1); SGOT/AST 92 U/L (15-37); SGPT/ALT 137 U/L (12-78); SODIUM 140 mmol/L (136-145); TOT PROT 5.4 g/dl (6.4-8.2)
[2018-03-09 09:56] LABS: ALK PHOS 188 U/L (45-117); BILIRUBIN,TOTAL 0.2 mg/dL (0.2-1.0)
--- NOTE | 2018-03-09 10:34 | PN ---
Progress Note (short form) - Note Progress Note: PULMONARY Vented on volume assist control. No fevers recorded. Vital Signs Period Temp Pulse Resp BP Sys/Wills Pulse Ox Last 24 Hr 98.0 F-99.1 F 58-87 14-21 111-137/44-66 96-97 Gen: vented Heart: RRR Lung: decreased breath sounds at the bases Abd: soft, nontender Ext: no edema CBC, BMP 03/09/18 09:00 03/09/18 09:00 Active Medications Acetaminophen (Tylenol -) 650 mg PO Q4H PRN PRN Reason: FEVER Amino Acids (Prosource No Carb Liquid Pkt) 30 ml PO BID@0800,1730 [facility] Last Admin: 03/09/18 09:30 Dose: 30 ml Artificial Tears (Artificial Tears) 2 drop OU BID [facility] Last Admin: 03/09/18 09:30 Dose: 2 drop Atorvastatin Calcium (Lipitor -) 10 mg GT HS [facility] Last Admin: 03/08/18 22:37 Dose: 10 mg Collagenase (Santyl -) 1 applic TP DAILY [facility] Last Admin: 03/09/18 09:31 Dose: 1 applic Diltiazem HCl (Cardizem Injection -) 10 mg IVPUSH Q6H PRN PRN Reason: TACHYCARDIA Last Admin: 03/02/18 09:45 Dose: 10 mg Docusate Sodium (Colace Liquid -) 100 mg PO DAILY PRN PRN Reason: CONSTIPATION Ferrous Sulfate (Feosol) 300 mg GT DAILY [facility] Last Admin: 03/09/18 09:30 Dose: 300 mg Insulin Aspart (Novolog Vial Sliding Scale -) [address] [facility]; Protocol Last Admin: 03/09/18 06:49 Dose: Not Given Insulin Detemir (Levemir Vial) 14 units SQ [facility] Last Admin: 03/08/18 22:41 Dose: 14 units Levothyroxine Sodium (Synthroid -) 37.5 mcg PEG DAILY@0700 [facility] Last Admin: 03/09/18 06:51 Dose: 37.5 mcg Metoprolol Tartrate (Lopressor -) 25 mg PO BID [facility] Last Admin: 03/09/18 09:28 Dose: 25 mg Non-Formulary Medication (Non-Formulary Med) 1 each GT DAILY [facility] Last Admin: 03/09/18 09:30 Dose: 1 each Nystatin (Nystop Powder -) 1 applic TP BID [facility] Last Admin: 03/09/18 09:30 Dose: 1 applic Oxybutynin Chloride (Ditropan -) 5 mg NGT BID [facility] Last Admin: 03/09/18 09:30 Dose: 5 mg Pantoprazole Sodium (Protonix Packets For Oral Suspension -) 40 mg NGT DAILY [facility] Last Admin: 03/09/18 09:27 Dose: 40 mg Senna (Senna Oral Solution -) 8.8 mg GT HS [facility] Last Admin: 03/08/18 22:37 Dose: 8.8 mg Sertraline HCl (Zoloft -) 50 mg PO DAILY [facility] Last Admin: 03/09/18 09:29 Dose: 50 mg Simethicone (Mylicon Liquid -) 40 mg GT QID PRN PRN Reason: CONSTIPATION Last Admin: 03/07/18 17:08 Dose: 40 mg Tamsulosin HCl (Flomax -) 0.4 mg PO DAILY@0830 [facility] Last Admin: 03/09/18 09:28 Dose: 0.4 mg A/P GI Bleed/Gastric Dieulafoy Lesion s/p EGD/epi/cautery Acute Blood Loss Anemia Chronic Respiratory Failure Pneumonia h/o Traumatic Brain Injury Functional Quadriplegia Acute on Chronic Renal Failure Atrial Fibrillation DM Dementia - monitor H/H - protonix - antibiotics per ID - rate control - holding anticoagulation - continue volume assist control - poor candidate for weaning due to poor mental status - enteral feeds as tolerated - DVT/GI prophylaxis
--- NOTE | 2018-03-09 14:41 | PN ---
Progress Note, Physician History of Present Illness: on vent support no new issues - Current Medication List Current Medications: Active Medications Acetaminophen (Tylenol -) 650 mg PO Q4H PRN PRN Reason: FEVER Amino Acids (Prosource No Carb Liquid Pkt) 30 ml PO BID@0800,1730 [facility] Last Admin: 03/09/18 09:30 Dose: 30 ml Artificial Tears (Artificial Tears) 2 drop OU BID [facility] Last Admin: 03/09/18 09:30 Dose: 2 drop Atorvastatin Calcium (Lipitor -) 10 mg GT HS [facility] Last Admin: 03/08/18 22:37 Dose: 10 mg Collagenase (Santyl -) 1 applic TP DAILY [facility] Last Admin: 03/09/18 09:31 Dose: 1 applic Diltiazem HCl (Cardizem Injection -) 10 mg IVPUSH Q6H PRN PRN Reason: TACHYCARDIA Last Admin: 03/02/18 09:45 Dose: 10 mg Docusate Sodium (Colace Liquid -) 100 mg PO DAILY PRN PRN Reason: CONSTIPATION Ferrous Sulfate (Feosol) 300 mg GT DAILY [facility] Last Admin: 03/09/18 09:30 Dose: 300 mg Insulin Aspart (Novolog Vial Sliding Scale -) 1 vial SQ [facility]; Protocol Last Admin: 03/09/18 12:18 Dose: Not Given Insulin Detemir (Levemir Vial) 14 units SQ [facility] Last Admin: 03/08/18 22:41 Dose: 14 units Levothyroxine Sodium (Synthroid -) 37.5 mcg PEG DAILY@0700 [facility] Last Admin: 03/09/18 06:51 Dose: 37.5 mcg Metoprolol Tartrate (Lopressor -) 25 mg PO BID [facility] Last Admin: 03/09/18 09:28 Dose: 25 mg Non-Formulary Medication (Non-Formulary Med) 1 each GT DAILY [facility] Last Admin: 03/09/18 09:30 Dose: 1 each Nystatin (Nystop Powder -) 1 applic TP BID [facility] Last Admin: 03/09/18 09:30 Dose: 1 applic Oxybutynin Chloride (Ditropan -) 5 mg NGT BID [facility] Last Admin: 03/09/18 09:30 Dose: 5 mg Pantoprazole Sodium (Protonix Packets For Oral Suspension -) 40 mg NGT DAILY [facility] Last Admin: 07/03/18 09:27 Dose: 40 mg Senna (Senna Oral Solution -) 8.8 mg GT HS [facility] Last Admin: 03/08/18 22:37 Dose: 8.8 mg Sertraline HCl (Zoloft -) 50 mg PO DAILY [facility] Last Admin: 03/09/18 09:29 Dose: 50 mg Simethicone (Mylicon Liquid -) 40 mg GT QID PRN PRN Reason: CONSTIPATION Last Admin: 03/07/18 17:08 Dose: 40 mg Tamsulosin HCl (Flomax -) 0.4 mg PO DAILY@0830 [facility] Last Admin: 03/09/18 09:28 Dose: 0.4 mg - Objective Vital Signs: Vital Signs Temperature 98.0 F 03/09/18 06:00 Pulse Rate 62 03/09/18 10:00 Respiratory Rate 16 03/09/18 10:00 Blood Pressure 130/64 03/09/18 10:00 O2 Sat by Pulse Oximetry (%) 96 03/08/18 21:00 Constitutional: Yes: No Distress Cardiovascular: Yes: Pulse Irregular Respiratory: Yes: Mechanically Ventilated Gastrointestinal: Yes: Soft, Other (peg in place) Labs: CBC, BMP 03/09/18 09:00 03/09/18 09:00 INR, PTT INR 1.13 (0.82-1.09) 02/16/18 22:40 Assessment/Plan Problem List - Problems (1) Anemia Code(s): D64.9 - ANEMIA, UNSPECIFIED (2) Chronic kidney disease, stage 3 Code(s): N18.3 - CHRONIC KIDNEY DISEASE, STAGE 3 (MODERATE) (3) Chronic respiratory failure Code(s): J96.10 - CHRONIC RESPIRATORY FAILURE, UNSP W HYPOXIA OR HYPERCAPNIA Qualifiers: Respiratory failure complication: unspecified whether with hypoxia or hypercapnia Qualified Code(s): J96.10 - Chronic respiratory failure, unspecified whether with hypoxia or hypercapnia (4) PAF (paroxysmal atrial fibrillation) Code(s): I48.0 - PAROXYSMAL ATRIAL FIBRILLATION (5) Renal failure Code(s): N19 - UNSPECIFIED KIDNEY FAILURE Qualifiers: Renal failure chronicity: unspecified chronicity Qualified Code(s): N19 - Unspecified kidney failure (6) Diabetes Code(s): E11.9 - TYPE 2 DIABETES MELLITUS WITHOUT COMPLICATIONS (7) TBI (traumatic brain injury) Code(s): S06.9X9A - UNSP INTRACRANIAL INJURY W LOC OF UNSP DURATION, INIT (8) [id number] kidney injury Code(s): N17.9 - ACUTE KIDNEY FAILURE, UNSPECIFIED; N18.9 - CHRONIC KIDNEY DISEASE, UNSPECIFIED (9) Dfspq-vz-macnysx renal failure Code(s): N17.9 - ACUTE KIDNEY FAILURE, UNSPECIFIED; N18.9 - CHRONIC KIDNEY DISEASE, UNSPECIFIED (10) Hypotension Code(s): I95.9 - HYPOTENSION, UNSPECIFIED (11) Hypotension Code(s): I95.9 - HYPOTENSION, UNSPECIFIED 12 gi bleed 13 difuleoy lesion 14 rash I plan continue to monitor off of abx nutrition rest as per primary care monitor abd as per pul suctioning if needed
[2018-03-09 16:00] LABS: HEMATOCRIT 23.1 % (35.4-49); HEMOGLOBIN 7.4 GM/dL (11.7-16.9); MCH 29.5 pg (25.7-33.7); MCHC 32.1 g/dl (32.0-35.9); MEAN CELL VOLUME 91.8 fl (80-96); MEAN PLT VOLUME 9.3 fl (7.5-11.1); PLATELET COUNT 151 K/MM3 (134-434); RBC 2.51 M/mm3 (4.00-5.60); RDW 19.7 % (11.9-15.9); WHITE BLOOD COUNT 6.1 K/mm3 (4.0-10.0)
--- NOTE | 2018-03-09 18:47 | PN ---
Teaching Attending Note Name of Resident: Erica See ATTENDING PHYSICIAN STATEMENT I saw and evaluated the patient. I reviewed the resident's note and discussed the case with the resident. I agree with the resident's findings and plan as documented with exceptions below. SUBJECTIVE: Patient seen and examined. nonverbal, eyes closed, responds to sternal rub, intermittent eye opening, unable to assess for ROS. OBJECTIVE: Vital Signs Period Temp Pulse Resp BP Sys/Wills Pulse Ox Last 24 Hr 98.0 F-99.7 F 58-87 14-20 111-137/44-66 96-99 Intake & Output 03/06/18 03/07/18 03/08/18 03/09/18 23:59 23:59 23:59 23:59 Intake Total 2350 1500 2050 1080 Output Total 1750 1150 850 500 Balance 782 169 6216 580 Weight 160 lb 3.2 oz 161 lb 163 lb General: lying in bed in no acute distress Chest: Decreased effort, positive air entry Abdomen: soft, positive bowel sounds, no grimacing on exam, ND Extremities: no edema Home Medications Medication Instructions Recorded Acetaminophen [Tylenol] 650 mg PO Q6H PRN 01/21/18 Bacitracin - [Bacitracin Topical 1 applic TP TID 01/21/18 Ointment -] Baclofen 10 mg GT Q8H 01/21/18 Balsam [place] Oil [Venelex 1 applic TP BID 01/21/18 Ointment] Docusate Sodium [Colace -] 100 mg GT ASDIR 01/21/18 Ferrous Sulfate [Feosol] 300 mg GT DAILY 01/21/18 Glycopyrrolate/Formoterol Fum 0 gm IH BID 01/21/18 [Bevespi Aerosphere Inhaler] Heparin - 5,000 unit SQ BID 01/21/18 Hypromellose 0.5% Opth Soln 2 drop OU BID 01/21/18 [Artificial Tears] Insulin Glargine,Hum.rec.anlog 9 units SQ HS 01/21/18 [Lantus Solostar PEN -] Insulin Lispro [Humalog] 0 unit SQ Q6H 01/21/18 L.acidoph,Paracasei, B.lactis 1 each GT DAILY 01/21/18 [Probiotic] Lanolin/Mineral Oil [Eucerin 1 applic TP Q6H 01/21/18 Original Lotion] Levothyroxine Sodium [Synthroid] 37.5 mcg GT BID 01/21/18 Oxybutynin Chloride 5 mg GT BID 01/21/18 Ranitidine [Zantac -] 150 mg GT DAILY 01/21/18 Sertraline HCl [Zoloft] 25 mg GT DAILY 01/21/18 Silver Sulfadiazine 1% Top Cr 1 applic TP DAILY 01/21/18 [Silvadene -] Simethicone 40 mg GT Q6H 01/21/18 Simvastatin 20 mg GT DAILY 01/21/18 Tamsulosin HCl 0.4 mg GT DAILY 01/21/18 Zinc Oxide 1 applic TP BID 01/21/18 Levothyroxine [Synthroid -] 37.5 mcg PEG DAILY@0700 tablet 02/08/18 Sodium Chloride Nasal [place] [[place] 2 spray NS TID spray 02/08/18 [place] Nasal [place] -] Aspirin [ASA -] 81 mg PO DAILY #30 tab.chew 02/09/18 Furosemide Oral Solution [Lasix 40 mg GT BID #300 udc 02/09/18 Oral Solution -] Nut.tx.imp.renal Fxn,Lac-Reduc 1,000 ml PO DAILY #1000 ml 02/09/18 [Nepro Carb Steady] Potassium Chloride 40 meq GT DAILY #40 meq 02/09/18 Active Medications Acetaminophen (Tylenol -) 650 mg PO Q4H PRN PRN Reason: FEVER Amino Acids (Prosource No Carb Liquid Pkt) 30 ml PO BID@0800,1730 [facility] Last Admin: 03/09/18 17:44 Dose: 30 ml Artificial Tears (Artificial Tears) 2 drop OU BID [facility] Last Admin: 03/09/18 09:30 Dose: 2 drop Atorvastatin Calcium (Lipitor -) 10 mg GT HS [facility] Last Admin: 03/08/18 22:37 Dose: 10 mg Collagenase (Santyl -) 1 applic TP DAILY [facility] Last Admin: 03/09/18 09:31 Dose: 1 applic Diltiazem HCl (Cardizem Injection -) 10 mg IVPUSH Q6H PRN PRN Reason: TACHYCARDIA Last Admin: 03/02/18 09:45 Dose: 10 mg Docusate Sodium (Colace Liquid -) 100 mg PO DAILY PRN PRN Reason: CONSTIPATION Ferrous Sulfate (Feosol) 300 mg GT DAILY [facility] Last Admin: 03/09/18 09:30 Dose: 300 mg Insulin Aspart (Novolog Vial Sliding Scale -) 1 vial SQ [facility]; Protocol Last Admin: 03/09/18 17:45 Dose: Not Given Insulin Detemir (Levemir Vial) 14 units SQ [facility] Last Admin: 03/08/18 22:41 Dose: 14 units Levothyroxine Sodium (Synthroid -) 37.5 mcg PEG DAILY@0700 [facility] Last Admin: 03/09/18 06:51 Dose: 37.5 mcg Metoprolol Tartrate (Lopressor -) 25 mg PO BID [facility] Last Admin: 03/09/18 09:28 Dose: 25 mg Non-Formulary Medication (Non-Formulary Med) 1 each GT DAILY [facility] Last Admin: 03/09/18 09:30 Dose: 1 each Nystatin (Nystop Powder -) 1 applic TP BID [facility] Last Admin: 03/09/18 09:30 Dose: 1 applic Oxybutynin Chloride (Ditropan -) 5 mg NGT BID [facility] Last Admin: 03/09/18 09:30 Dose: 5 mg Pantoprazole Sodium (Protonix Packets For Oral Suspension -) 40 mg NGT DAILY [facility] Last Admin: 03/09/18 09:27 Dose: 40 mg Senna (Senna Oral Solution -) 8.8 mg GT [facility] Last Admin: 03/08/18 22:37 Dose: 8.8 mg Sertraline HCl (Zoloft -) 50 mg PO DAILY [facility] Last Admin: 03/09/18 09:29 Dose: 50 mg Simethicone (Mylicon Liquid -) 40 mg GT QID PRN PRN Reason: CONSTIPATION Last Admin: 03/07/18 17:08 Dose: 40 mg Tamsulosin HCl (Flomax -) 0.4 mg PO DAILY@0830 [facility] Last Admin: 03/09/18 09:28 Dose: 0.4 mg Laboratory Results - last 24 hr 03/08/18 03/09/18 03/09/18 22:39 06:49 09:00 WBC 5.6 RBC 2.53 L Hgb 7.6 L Hct 23.4 L MCV 92.8 MCH 29.9 MCHC 32.3 RDW 19.6 H Plt Count 132 L MPV 9.0 Absolute Neuts (auto) 4.5 Neutrophils % 79.4 Lymphocytes % 12.4 Monocytes % 6.9 Eosinophils % 1.2 Basophils % 0.1 Nucleated RBC % 0 Sodium Potassium Chloride Carbon Dioxide Anion Gap BUN Creatinine Creat Clearance w eGFR POC Glucometer 129 112 Random Glucose Calcium Phosphorus Magnesium Total Bilirubin AST ALT Alkaline Phosphatase Total Protein Albumin 03/09/18 03/09/18 03/09/18 09:00 12:17 15:30 WBC 6.1 RBC 2.51 L Hgb 7.4 L Hct 23.1 L MCV 91.8 MCH 29.5 MCHC 32.1 RDW 19.7 H Plt Count 151 MPV 9.3 Absolute Neuts (auto) Neutrophils % Lymphocytes % Monocytes % Eosinophils % Basophils % Nucleated RBC % Sodium 140 Potassium 4.2 Chloride 105 Carbon Dioxide 24 Anion Gap 11 BUN 91 H Creatinine 1.6 H Creat Clearance w eGFR 41.29 POC Glucometer 97 Random Glucose 87 Calcium 7.6 L Phosphorus 3.6 Magnesium 2.1 Total Bilirubin 0.2 AST 92 H ALT 137 H Alkaline Phosphatase 188 H Total Protein 5.4 L Albumin 1.9 L 03/09/18 17:45 WBC RBC Hgb Hct MCV MCH MCHC RDW Plt Count MPV Absolute Neuts (auto) Neutrophils % Lymphocytes % Monocytes % Eosinophils % Basophils % Nucleated RBC % Sodium Potassium Chloride Carbon Dioxide Anion Gap BUN Creatinine Creat Clearance w eGFR POC Glucometer 129 Random Glucose Calcium Phosphorus Magnesium Total Bilirubin AST ALT Alkaline Phosphatase Total Protein Albumin Microbiology 02/17/18 03:00 Blood - Peripheral Venous Blood Culture - Final NO GROWTH AFTER 5 DAYS INCUBATION 02/17/18 03:00 Blood - Peripheral Venous Blood Culture - Final NO GROWTH AFTER 5 DAYS INCUBATION 02/17/18 10:40 Sputum - Endotrachea Suction/Ventilator Gram Stain - Final 02/17/18 10:40 Sputum - Endotrachea Suction/Ventilator Sputum Culture - Final Pseudomonas Aeruginosa Pseudo Fluorescens/[place] 02/16/18 23:40 Urine - Urine Clean Catch Urine Culture - Final NO GROWTH OBTAINED ASSESSMENT AND PLAN: 87 year old male with a significant past medical history of diastolic heart failure, NIDDM, CKD, and 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 Admitted on 02/17/18 from [facility] chronic respiratory failure and severe anemia with a hg of 5.5 and hypotension. -Acute Upper GI bleed from [place] lesion -Acute blood loss anemia s/p 7 units PRBCs -Acute on chronic vent dependent respiratory failure, likely aspiration PNA. -?Sigmoid volvolus vs severe constipation -KATERIN on CKD stage III (baseline cr around 2) -AFib with RVR s/p diltiazem drip on 02/25, now off -Hypernatremia, likely from lack of free water -Macular rash, ?Drug rash vs heat rash, resolved -Hypokalemia -Thrombophilia, ?infection, stable -IDDM -Traumatic brain injury 08/2017 s/p trach/PEG -Paraplegia -Legally blind and deaf -Hypothyroidism -Urinary incontinence with chronic indwelling christopher -Depression Plan: Hb drifting down, no clinical or gross evidence of bleed or hemodynamic instability. Discussed with Dr. Diaz, will follow up for possible repeat EGD vs additional management. Monitor h/h. Family concerned about abdominal bloating, requesting rectal tube, surgery input , discussed with Dr. Reyes. s/p 15 days of zosyn. S/p bactrim, off abx, ID input appreciated. At prior vent settings renal function continues to improve, renal input appreciated. DVTPPX with SCDs dispo pending GI input and further course. Plan discussed with family, social work, GI and surgery. Total care time spent 40 min.
--- NOTE | 2018-03-09 21:22 | PN ---
Physical Exam: SUBJECTIVE: Patient seen and examined resting comfortably at bedside. OBJECTIVE: Vital Signs Period Temp Pulse Resp BP Sys/Wills Pulse Ox Last 24 Hr 98.0 F-99.7 F 58-87 14-20 111-137/44-66 99 Vital Signs Temp 99.7 F H 03/09/18 18:05 Pulse 66 03/09/18 18:05 Resp 14 03/09/18 20:45 BP 112/53 03/09/18 18:05 Pulse Ox 99 03/09/18 09:00 Intake & Output 03/08/18 03/09/18 03/09/18 23:59 11:59 23:59 Intake Total 1100 1080 Output Total 150 500 Balance 950 1080 -500 Weight 73.936 kg Intake: Tube Feeding 600 600 Tube Irrigant 500 480 Output: Urine 150 500 Christopher 150 500 Other: Voiding Method Indwelling Catheter Incontinent Indwelling Catheter Bowel Movement Yes No # Bowel Movements 1 Weight Measurement Method Patient Lift Scale GENERAL: Resting comfortably, Nonverbal EYES: Eyes open sporadically, unable to exam LUNGS: Mechanical Breath sounds anteriorly, Unable to evaluate posterior as patient does not respond to commands HEART: Regular rate and rhythm, S1, S2 without murmur, rub or gallop. ABDOMEN: Soft, Distended, normoactive bowel sounds, PEG tube present without bleeding, drainage NEUROLOGICAL: Upper extremities contracted b/l Laboratory Results - last 24 hr 03/08/18 03/09/18 03/09/18 22:39 06:49 09:00 WBC 5.6 RBC 2.53 L Hgb 7.6 L Hct 23.4 L MCV 92.8 MCH 29.9 MCHC 32.3 RDW 19.6 H Plt Count 132 L MPV 9.0 Absolute Neuts (auto) 4.5 Neutrophils % 79.4 Lymphocytes % 12.4 Monocytes % 6.9 Eosinophils % 1.2 Basophils % 0.1 Nucleated RBC % 0 Sodium Potassium Chloride Carbon Dioxide Anion Gap BUN Creatinine Creat Clearance w eGFR POC Glucometer 129 112 Random Glucose Calcium Phosphorus Magnesium Total Bilirubin AST ALT Alkaline Phosphatase Total Protein Albumin 03/09/18 03/09/18 03/09/18 09:00 12:17 15:30 WBC 6.1 RBC 2.51 L Hgb 7.4 L Hct 23.1 L MCV 91.8 MCH 29.5 MCHC 32.1 RDW 19.7 H Plt Count 151 MPV 9.3 Absolute Neuts (auto) Neutrophils % Lymphocytes % Monocytes % Eosinophils % Basophils % Nucleated RBC % Sodium 140 Potassium 4.2 Chloride 105 Carbon Dioxide 24 Anion Gap 11 BUN 91 H Creatinine 1.6 H Creat Clearance w eGFR 41.29 POC Glucometer 97 Random Glucose 87 Calcium 7.6 L Phosphorus 3.6 Magnesium 2.1 Total Bilirubin 0.2 AST 92 H ALT 137 H Alkaline Phosphatase 188 H Total Protein 5.4 L Albumin 1.9 L 03/09/18 17:45 WBC RBC Hgb Hct MCV MCH MCHC RDW Plt Count MPV Absolute Neuts (auto) Neutrophils % Lymphocytes % Monocytes % Eosinophils % Basophils % Nucleated RBC % Sodium Potassium Chloride Carbon Dioxide Anion Gap BUN Creatinine Creat Clearance w eGFR POC Glucometer 129 Random Glucose Calcium Phosphorus Magnesium Total Bilirubin AST ALT Alkaline Phosphatase Total Protein Albumin Active Medications Acetaminophen (Tylenol -) 650 mg PO Q4H PRN PRN Reason: FEVER Amino Acids (Prosource No Carb Liquid Pkt) 30 ml PO BID@0800,1730 [facility] Last Admin: 03/09/18 17:44 Dose: 30 ml Artificial Tears (Artificial Tears) 2 drop OU BID [facility] Last Admin: 03/09/18 09:30 Dose: 2 drop Atorvastatin Calcium (Lipitor -) 10 mg GT HS [facility] Last Admin: 03/08/18 22:37 Dose: 10 mg Collagenase (Santyl -) 1 applic TP DAILY [facility] Last Admin: 03/09/18 09:31 Dose: 1 applic Diltiazem HCl (Cardizem Injection -) 10 mg IVPUSH Q6H PRN PRN Reason: TACHYCARDIA Last Admin: 03/02/18 09:45 Dose: 10 mg Docusate Sodium (Colace Liquid -) 100 mg PO DAILY PRN PRN Reason: CONSTIPATION Ferrous Sulfate (Feosol) 300 mg GT DAILY [facility] Last Admin: 03/09/18 09:30 Dose: 300 mg Insulin Aspart (Novolog Vial Sliding Scale -) 1 vial SQ [facility]; Protocol Last Admin: 03/09/18 17:45 Dose: Not Given Insulin Detemir (Levemir Vial) 14 units SQ [facility] Last Admin: 03/08/18 22:41 Dose: 14 units Levothyroxine Sodium (Synthroid -) 37.5 mcg PEG DAILY@0700 [facility] Last Admin: 03/09/18 06:51 Dose: 37.5 mcg Metoprolol Tartrate (Lopressor -) 25 mg PO BID [facility] Last Admin: 03/09/18 09:28 Dose: 25 mg Non-Formulary Medication (Non-Formulary Med) 1 each GT DAILY [facility] Last Admin: 03/09/18 09:30 Dose: 1 each Nystatin (Nystop Powder -) 1 applic TP BID [facility] Last Admin: 03/09/18 09:30 Dose: 1 applic Oxybutynin Chloride (Ditropan -) 5 mg NGT BID [facility] Last Admin: 03/09/18 09:30 Dose: 5 mg Pantoprazole Sodium (Protonix Packets For Oral Suspension -) 40 mg NGT DAILY [facility] Last Admin: 03/09/18 09:27 Dose: 40 mg Senna (Senna Oral Solution -) 8.8 mg GT HS [facility] Last Admin: 03/08/18 22:37 Dose: 8.8 mg Sertraline HCl (Zoloft -) 50 mg PO DAILY [facility] Last Admin: 03/09/18 09:29 Dose: 50 mg Simethicone (Mylicon Liquid -) 40 mg GT QID PRN PRN Reason: CONSTIPATION Last Admin: 03/07/18 17:08 Dose: 40 mg Tamsulosin HCl (Flomax -) 0.4 mg PO DAILY@0830 [facility] Last Admin: 03/09/18 09:28 Dose: 0.4 mg ASSESSMENT/PLAN: 87 year old male with a PMHx significant for Diastolic heart failure, NIDDM, CKD , and 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 Admitted on 02/17/18 from [facility] for chronic respiratory failure and severe anemia with a hg of 5.5 and hypotension. 1. Multifactorial anemia with UGIB - s/p EGD with Diluefoy lesion - s/p heat probe and epi - s/p 10 units PRBC this hospital stay - Hgb currently trending down, No signs of Active bleeding - GI (Dr. Diaz) Consulted, possible repeat EGD - NPO - Will continue to trend Hgb - Hematology consulted, Appreciate recommendations - Continue Ferrous Sulfate 300 mg GT DAILY [facility] 2. Acute on chronic respiratory failure - Due to aspiration PNA that has now improved, patient has returned to baseline vent settings - Not weanable due to poor mental status - Pulmonary (Dr. Perez) consulted, Appreciate recommendations 3. Aspiration PNA - Completed course of Zosyn, Not on any other ABx - ID (Dr. Garza) consulted, Appreciate recommendations 4. Acute Transaminitis - AST/ALT Trending down - Has hx of similar episode on 02/01/18 that self-resolved - Will continue to monitor 5. Acute on CKD - Hypoperfusion - BUN remains elevated, likely due to GI bleed - Cr remains elevated - No longer on steroids - Will continue to monitor - Nephrology consulted, Appreciate recommendations 6. New onset Afib - rate controlled, Continue Metoprolol Tartrate 25 mg PO BID [facility] - Not a candidate for anticoagulation due to recent GI bleed - Cardiology consulted, Appreciate recommendations 7. Hypernatremia - resolved - will continue water flushes and monitor 8. Thrombophilia - stable off medications 9. DM - Improved - Continue Insulin Aspart SQ ACHS [place]ILIA - Continue Insulin Detemir SQ HS [facility] 10. 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 Hypothyroid - Continue Synthroid 37.5 mcg PEG DAILY @ 0700 [facility] 12. Urinary incontinence - Chronic indwelling christopher. cont oxybutin/flomax - Continue Flomax 0.4 mg PO DAILY@0830 [facility] - Continue Oxybutynin Chloride 5 mg BID [facility] 13. Depression - Continue on Sertraline HCl 50 mg PO DAILY [facility] 14. DVT ppx - SCD - Not a candidate for anticoagulation due to recent GI Bleed Visit type - Emergency Visit Emergency Visit: No - New Patient This patient is new to me today: No - Critical Care Critical Care patient: No
[2018-03-09] MEDS: ATORVASTATIN CA 10 MG TABLET (FP) GT SCH (22:04)
[2018-03-09] MEDS: SENNOSIDES 8.8 MG/5 ML BULK BOTTLE GT SCH (22:04)
[2018-03-09] MEDS: INSULIN (LEVEMIR) 100 UNITS/ML UNITS SQ SCH (22:05)
--- NOTE | 2018-03-09 22:56 | PN ---
Progress Note, Physician Chief Complaint: Pt on ventilator/trached; unable to express himself (essentially unchanged since admission). History of Present Illness: The patient is an 87 year old white male, with a significant past medical history of traumatic fall (s/p neck (C4,5, and 6)/back surgery, tracheotomy placement now ventilator dependent, and PEG tube placement), frequent pneumonia , emphysema, A-fib, diastolic CHF, DM, dementia, renal failure, nonverbal TBI, paraplegic, legally blind and deaf, who presents to the emergency department via EMS from [facility] with, 3 days of hypotension. Now transferred to ICU after being found to have bright red blood on gastric tube lavage that led to PRBCs and heater probe coagulation. Allergies: NKA Social History: Former smoker (Quit 35 years ago). Denies EtOH use and recreational drug use. - Current Medication List Current Medications: Active Medications Acetaminophen (Tylenol -) 650 mg PO Q4H PRN PRN Reason: FEVER Amino Acids (Prosource No Carb Liquid Pkt) 30 ml PO BID@0800,1730 [facility] Last Admin: 03/09/18 17:44 Dose: 30 ml Artificial Tears (Artificial Tears) 2 drop OU BID [facility] Last Admin: 03/09/18 22:06 Dose: 2 drop Atorvastatin Calcium (Lipitor -) 10 mg GT HS [facility] Last Admin: 03/09/18 22:04 Dose: 10 mg Collagenase (Santyl -) 1 applic TP DAILY [facility] Last Admin: 03/09/18 09:31 Dose: 1 applic Diltiazem HCl (Cardizem Injection -) 10 mg IVPUSH Q6H PRN PRN Reason: TACHYCARDIA Last Admin: 03/02/18 09:45 Dose: 10 mg Docusate Sodium (Colace Liquid -) 100 mg PO DAILY PRN PRN Reason: CONSTIPATION Ferrous Sulfate (Feosol) 300 mg GT DAILY [facility] Last Admin: 03/09/18 09:30 Dose: 300 mg Insulin Aspart (Novolog Vial Sliding Scale -) 1 vial SQ ACHS [facility]; Protocol Last Admin: 03/09/18 22:05 Dose: 2 units Insulin Detemir (Levemir Vial) 14 units SQ HS [facility] Last Admin: 03/09/18 22:05 Dose: 14 units Levothyroxine Sodium (Synthroid -) 37.5 mcg PEG DAILY@0700 [facility] Last Admin: 03/09/18 06:51 Dose: 37.5 mcg Metoprolol Tartrate (Lopressor -) 25 mg PO BID [facility] Last Admin: 03/09/18 22:05 Dose: Not Given Non-Formulary Medication (Non-Formulary Med) 1 each GT DAILY [facility] Last Admin: 03/09/18 09:30 Dose: 1 each Nystatin (Nystop Powder -) 1 applic TP BID [facility] Last Admin: 03/09/18 22:04 Dose: 1 applic Oxybutynin Chloride (Ditropan -) 5 mg NGT BID [facility] Last Admin: 03/09/18 22:03 Dose: 5 mg Pantoprazole Sodium (Protonix Packets For Oral Suspension -) 40 mg NGT DAILY [facility] Last Admin: 03/09/18 09:27 Dose: 40 mg Senna (Senna Oral Solution -) 8.8 mg GT HS [facility] Last Admin: 03/09/18 22:04 Dose: 8.8 mg Sertraline HCl (Zoloft -) 50 mg PO DAILY [facility] Last Admin: 03/09/18 09:29 Dose: 50 mg Simethicone (Mylicon Liquid -) 40 mg GT QID PRN PRN Reason: CONSTIPATION Last Admin: 03/07/18 17:08 Dose: 40 mg Tamsulosin HCl (Flomax -) 0.4 mg PO DAILY@0830 [facility] Last Admin: 03/09/18 09:28 Dose: 0.4 mg - Objective Vital Signs: Vital Signs Temperature 99.7 F H 03/09/18 18:05 Pulse Rate 66 03/09/18 18:05 Respiratory Rate 14 03/09/18 20:45 Blood Pressure 112/53 03/09/18 18:05 O2 Sat by Pulse Oximetry (%) 99 03/09/18 09:00 Constitutional: Yes: Thin Eyes: Yes: Conjunctiva Clear HENT: Yes: WNL Neck: Yes: Decreased ROM Cardiovascular: Yes: Pulse Irregular, S1 (varies in intensity), S2 Respiratory: Yes: Diminished Gastrointestinal: Yes: Soft, Other (PEG) ...Rectal Exam: Yes: Deferred Genitourinary: No: Anuria Musculoskeletal: Yes: Muscle Weakness Extremities: Yes: Cool Edema: No Peripheral Pulses WNL: Yes Integumentary: Yes: Venous Stasis Changes Neurological: Yes: Weakness Psychiatric: Yes: Other (dementia; traumatic brain injury) Labs: CBC, BMP 03/09/18 15:30 03/09/18 09:00 INR, PTT INR 1.13 (0.82-1.09) 02/16/18 22:40 Abnormal Lab Results 03/09/18 03/09/18 03/09/18 09:00 09:00 15:30 RBC 2.53 L 2.51 L Hgb 7.6 L 7.4 L Hct 23.4 L 23.1 L RDW 19.6 H 19.7 H Plt Count 132 L BUN 91 H Creatinine 1.6 H Calcium 7.6 L AST 92 H ALT 137 H Alkaline Phosphatase 188 H Total Protein 5.4 L Albumin 1.9 L Problem List - Problems (1) Anemia Assessment/Plan: s/p EGD, cauterization, and PRBCs. Maintain hydration. F/u BUn/Cr, Hb (8.5-->7.4). 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 Code(s): N18.3 - CHRONIC KIDNEY DISEASE, STAGE 3 (MODERATE) (3) Chronic respiratory failure Assessment/Plan: Ventilator dependent; on trach. Code(s): J96.10 - CHRONIC RESPIRATORY FAILURE, UNSP W HYPOXIA OR HYPERCAPNIA Qualifiers: Respiratory failure complication: unspecified whether with hypoxia or hypercapnia Qualified Code(s): J96.10 - Chronic respiratory failure, unspecified whether with hypoxia or hypercapnia (4) Hematuria Code(s): R31.9 - HEMATURIA, UNSPECIFIED (5) PAF (paroxysmal atrial fibrillation) Assessment/Plan: EKG 02/23/18: AF with RVR (HR 150 bpm); now has HR in 80s bpm. Increased metoprolol to 25 mg bid (pt has required occasional IV diltiazem for rapid VR); f/u HR and BP, and increase metoprolol as tolerated. If pt becomes profoundly bradycardia, will have to consider PPM. anticoagulation held due to GI bleed. TSH 3.59 recently. Code(s): I48.0 - PAROXYSMAL ATRIAL FIBRILLATION (6) S/P percutaneous endoscopic gastrostomy (PEG) tube placement Assessment/Plan: site appears intact Code(s): Z93.1 - GASTROSTOMY STATUS (7) Acute on chronic diastolic CHF (congestive heart failure) Code(s): I50.33 - ACUTE ON CHRONIC DIASTOLIC (CONGESTIVE) HEART FAILURE (8) Sinus bradycardia Code(s): R00.1 - BRADYCARDIA, UNSPECIFIED (9) TBI (traumatic brain injury) Code(s): S06.9X9A - UNSP INTRACRANIAL INJURY W LOC OF UNSP DURATION, INIT Qualifiers: Encounter type: sequela Loss of consciousness presence/duration: with LOC of unspecified duration Qualified Code(s): S06.9X9S - Unspecified intracranial injury with loss of consciousness of unspecified duration, sequela (10) Severe mitral regurgitation Code(s): I34.0 - NONRHEUMATIC MITRAL (VALVE) INSUFFICIENCY (11) Hypokalemia Assessment/Plan: Keep K+ 4-4.5 (4.8 today). F/u Mg, and keep 2-2.3 Keep PO4 2.5-3.5 Code(s): E87.6 - HYPOKALEMIA (12) Hypoalbuminemia Code(s): E88.09 - OTH DISORDERS OF PLASMA-PROTEIN METABOLISM, NEC
[2018-03-10] MEDS: INSULIN SLIDING SCALE (NOVOLOG) 1 VIAL SQ SCH ×4 (06:19→23:18)
[2018-03-10] MEDS ORDERED: DEXTROSE 50%-WATER 25 GM/50 ML DISP.SYRIN IVPUSH ONE (06:23)
[2018-03-10] MEDS ORDERED: DEXTROSE 50%-WATER 25 GM/50 ML DISP.SYRIN ONE ×2 (06:40→12:04)
[2018-03-10 06:49] LABS: BASO % 0.4 % (0-2.0); EOS % 0.9 % (0-4.5); HEMATOCRIT 24.5 % (35.4-49); LYMPH % 14.4 % (8-40); MCH 29.8 pg (25.7-33.7); MCHC 32.5 g/dl (32.0-35.9); MEAN CELL VOLUME 91.6 fl (80-96); MEAN PLT VOLUME 9.2 fl (7.5-11.1); NEUT % 76.3 % (42.8-82.8); PLATELET COUNT 139 K/MM3 (134-434); RBC 2.67 M/mm3 (4.00-5.60); RDW 19.2 % (11.9-15.9); WHITE BLOOD COUNT 5.7 K/mm3 (4.0-10.0)
[2018-03-10] MEDS: LEVOTHYROXINE NA 25 MCG TABLET (FP) PEG SCH (07:11)
--- NOTE | 2018-03-10 09:09 | PN ---
Progress Note, Physician History of Present Illness: 87M w/ pmh of traumatic fall (s/p neck (C4,5, and 6)/back surgery, tracheotomy placement now ventilator dependent, and PEG tube placement), frequent pneumonia , emphysema, A-fib, CHF, DM, dementia, renal failure, nonverbal TBI, paraplegia , and legal blindness and deafness, who presents to the emergency department via EMS from [facility] with 3 days of hypotension. As per patients son , his blood pressure has been decreasing over the past few days. He reports that at baseline, his systolic is between 110-119 in the mornings and between 100-109 at night. Pt has failed 5 weaning trials in the last few days, and it was noticed that there was blood around the tracheostomy site when suctioning. Pt' son denies recent fevers, chills, chest pain, emesis, hematemesis, melena, and hematochezia in pt. - Current Medication List Current Medications: Active Medications Acetaminophen (Tylenol -) 650 mg PO Q4H PRN PRN Reason: FEVER Amino Acids (Prosource No Carb Liquid Pkt) 30 ml PO BID@0800,1730 [facility] Last Admin: 03/09/18 17:44 Dose: 30 ml Artificial Tears (Artificial Tears) 2 drop OU BID [facility] Last Admin: 03/09/18 22:06 Dose: 2 drop Atorvastatin Calcium (Lipitor -) 10 mg GT HS [facility] Last Admin: 03/09/18 22:04 Dose: 10 mg Collagenase (Santyl -) 1 applic TP DAILY [facility] Last Admin: 03/09/18 09:31 Dose: 1 applic Diltiazem HCl (Cardizem Injection -) 10 mg IVPUSH Q6H PRN PRN Reason: TACHYCARDIA Last Admin: 03/02/18 09:45 Dose: 10 mg Docusate Sodium (Colace Liquid -) 100 mg PO DAILY PRN PRN Reason: CONSTIPATION Ferrous Sulfate (Feosol) 300 mg GT DAILY [facility] Last Admin: 03/09/18 09:30 Dose: 300 mg Insulin Aspart (Novolog Vial Sliding Scale -) 1 vial SQ [facility]; Protocol Last Admin: 03/10/18 06:19 Dose: Not Given Insulin Detemir (Levemir Vial) 10 units SQ [facility] Levothyroxine Sodium (Synthroid -) 37.5 mcg PEG DAILY@0700 [facility] Last Admin: 03/10/18 07:11 Dose: Not Given Metoprolol Tartrate (Lopressor -) 25 mg PO BID [facility] Last Admin: 03/09/18 22:05 Dose: Not Given Non-Formulary Medication (Non-Formulary Med) 1 each GT DAILY [facility] Last Admin: 03/09/18 09:30 Dose: 1 each Nystatin (Nystop Powder -) 1 applic TP BID [facility] Last Admin: 03/09/18 22:04 Dose: 1 applic Oxybutynin Chloride (Ditropan -) 5 mg NGT BID [facility] Last Admin: 03/09/18 22:03 Dose: 5 mg Pantoprazole Sodium (Protonix Packets For Oral Suspension -) 40 mg NGT DAILY [facility] Last Admin: 03/09/18 09:27 Dose: 40 mg Senna (Senna Oral Solution -) 8.8 mg GT HS [facility] Last Admin: 03/09/18 22:04 Dose: 8.8 mg Sertraline HCl (Zoloft -) 50 mg PO DAILY [facility] Last Admin: 03/09/18 09:29 Dose: 50 mg Simethicone (Mylicon Liquid -) 40 mg GT QID PRN PRN Reason: CONSTIPATION Last Admin: 03/07/18 17:08 Dose: 40 mg Tamsulosin HCl (Flomax -) 0.4 mg PO DAILY@0830 [facility] Last Admin: 03/09/18 09:28 Dose: 0.4 mg - Objective Vital Signs: Vital Signs Temperature 98.9 F 03/10/18 07:00 Pulse Rate 70 03/10/18 07:00 Respiratory Rate 14 03/10/18 08:29 Blood Pressure 108/41 03/10/18 07:00 O2 Sat by Pulse Oximetry (%) 99 03/09/18 21:00 Eyes: Yes: WNL, Conjunctiva Clear, EOM Intact HENT: Yes: WNL, Atraumatic, Normocephalic Neck: Yes: WNL, Supple, Trachea Midline Cardiovascular: Yes: WNL, Regular Rate and Rhythm Respiratory: Yes: Mechanically Ventilated Gastrointestinal: Yes: WNL, Normal Bowel Sounds Genitourinary: Yes: WNL Musculoskeletal: Yes: WNL Extremities: Yes: WNL Edema: No Integumentary: Yes: WNL ...Motor Strength: WNL Psychiatric: Yes: WNL Labs: CBC, BMP 03/10/18 06:15 03/09/18 09:00 INR, PTT INR 1.13 (0.82-1.09) 02/16/18 22:40 Assessment/Plan - Problems (1) Anemia Assessment/Plan: s/p EGD, cauterization, and PRBCs. Maintain hydration. F/u BUn/Cr, Hb (8.5-->7.4). 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 Code(s): N18.3 - CHRONIC KIDNEY DISEASE, STAGE 3 (MODERATE) (3) Chronic respiratory failure Assessment/Plan: Ventilator dependent; on trach. Code(s): J96.10 - CHRONIC RESPIRATORY FAILURE, UNSP W HYPOXIA OR HYPERCAPNIA Qualifiers: Respiratory failure complication: unspecified whether with hypoxia or hypercapnia Qualified Code(s): J96.10 - Chronic respiratory failure, unspecified whether with hypoxia or hypercapnia (4) Hematuria Code(s): R31.9 - HEMATURIA, UNSPECIFIED (5) PAF (paroxysmal atrial fibrillation) Assessment/Plan: EKG 02/23/18: AF with RVR (HR 150 bpm); now has HR in 80s bpm. Increased metoprolol to 25 mg bid (pt has required occasional IV diltiazem for rapid VR); f/u HR and BP, and increase metoprolol as tolerated. If pt becomes profoundly bradycardia, will have to consider PPM. anticoagulation held due to GI bleed. TSH 3.59 recently. Code(s): I48.0 - PAROXYSMAL ATRIAL FIBRILLATION (6) S/P percutaneous endoscopic gastrostomy (PEG) tube placement Assessment/Plan: site appears intact Code(s): Z93.1 - GASTROSTOMY STATUS (7) Acute on chronic diastolic CHF (congestive heart failure) Code(s): I50.33 - ACUTE ON CHRONIC DIASTOLIC (CONGESTIVE) HEART FAILURE (8) Sinus bradycardia Code(s): R00.1 - BRADYCARDIA, UNSPECIFIED (9) TBI (traumatic brain injury) Code(s): S06.9X9A - UNSP INTRACRANIAL INJURY W LOC OF UNSP DURATION, INIT Qualifiers: Encounter type: sequela Loss of consciousness presence/duration: with LOC of unspecified duration Qualified Code(s): S06.9X9S - Unspecified intracranial injury with loss of consciousness of unspecified duration, sequela (10) Severe mitral regurgitation Code(s): I34.0 - NONRHEUMATIC MITRAL (VALVE) INSUFFICIENCY (11) Hypokalemia Assessment/Plan: Keep K+ 4-4.5 (4.8 today). F/u Mg, and keep 2-2.3 Keep PO4 2.5-3.5 Code(s): E87.6 - HYPOKALEMIA (12) Hypoalbuminemia Code(s): E88.09 - OTH DISORDERS OF PLASMA-PROTEIN METABOLISM, NEC
[2018-03-10] MEDS: COLLAGENASE CLOSTRIDIUM HIST. 30 GRAMS TUBE TP SCH (10:00)
[2018-03-10] MEDS: ARTIFICIAL TEARS (POLYVINYL ALCOHOL 1.4%) OPTH DROPS OU SCH ×2 (10:00→23:49)
[2018-03-10] MEDS: NYSTATIN POWDER 100,000 UNITS/GM - 15 GM TOPICAL POWDER TP SCH ×2 (10:00→23:48)
--- NOTE | 2018-03-10 10:59 | PN ---
Progress Note (short form) - Note Progress Note: PULMONARY Vented on volume assist control. VSS Gen: vented Heart: RRR Lung: decreased breath sounds at the bases Abd: soft, nontender Ext: no edema Active Medications Acetaminophen (Tylenol -) 650 mg PO Q4H PRN PRN Reason: FEVER Amino Acids (Prosource No Carb Liquid Pkt) 30 ml PO BID@0800,1730 [facility] Last Admin: 03/09/18 09:30 Dose: 30 ml Artificial Tears (Artificial Tears) 2 drop OU BID [facility] Last Admin: 03/09/18 09:30 Dose: 2 drop Atorvastatin Calcium (Lipitor -) 10 mg GT HS [facility] Last Admin: 03/08/18 22:37 Dose: 10 mg Collagenase (Santyl -) 1 applic TP DAILY [facility] Last Admin: 03/09/18 09:31 Dose: 1 applic Diltiazem HCl (Cardizem Injection -) 10 mg IVPUSH Q6H PRN PRN Reason: TACHYCARDIA Last Admin: 03/02/18 09:45 Dose: 10 mg Docusate Sodium (Colace Liquid -) 100 mg PO DAILY PRN PRN Reason: CONSTIPATION Ferrous Sulfate (Feosol) 300 mg GT DAILY [facility] Last Admin: 03/09/18 09:30 Dose: 300 mg Insulin Aspart (Novolog Vial Sliding Scale -) 1 vial SQ [facility]; Protocol Last Admin: 03/09/18 06:49 Dose: Not Given Insulin Detemir (Levemir Vial) 14 units SQ [facility] Last Admin: 03/08/18 22:41 Dose: 14 units Levothyroxine Sodium (Synthroid -) 37.5 mcg PEG DAILY@0700 [facility] Last Admin: 03/09/18 06:51 Dose: 37.5 mcg Metoprolol Tartrate (Lopressor -) 25 mg PO BID [facility] Last Admin: 03/09/18 09:28 Dose: 25 mg Non-Formulary Medication (Non-Formulary Med) 1 each GT DAILY [facility] Last Admin: 03/09/18 09:30 Dose: 1 each Nystatin (Nystop Powder -) 1 applic TP BID [facility] Last Admin: 03/09/18 09:30 Dose: 1 applic Oxybutynin Chloride (Ditropan -) 5 mg NGT BID [facility] Last Admin: 03/09/18 09:30 Dose: 5 mg Pantoprazole Sodium (Protonix Packets For Oral Suspension -) 40 mg NGT DAILY [facility] Last Admin: 03/09/18 09:27 Dose: 40 mg Senna (Senna Oral Solution -) 8.8 mg GT HS [facility] Last Admin: 03/08/18 22:37 Dose: 8.8 mg Sertraline HCl (Zoloft -) 50 mg PO DAILY [facility] Last Admin: 03/09/18 09:29 Dose: 50 mg Simethicone (Mylicon Liquid -) 40 mg GT QID PRN PRN Reason: CONSTIPATION Last Admin: 03/07/18 17:08 Dose: 40 mg Tamsulosin HCl (Flomax -) 0.4 mg PO DAILY@0830 [facility] Last Admin: 03/09/18 09:28 Dose: 0.4 mg A/P GI Bleed/Gastric Dieulafoy Lesion s/p EGD/epi/cautery Acute Blood Loss Anemia Chronic Respiratory Failure Pneumonia h/o Traumatic Brain Injury Functional Quadriplegia Acute on Chronic Renal Failure Atrial Fibrillation DM Dementia - monitor H/H - protonix - antibiotics per ID - rate control - holding anticoagulation - continue volume assist control - poor candidate for weaning due to poor mental status - enteral feeds as tolerated - DVT/GI prophylaxis Tony DE LA O MD
[2018-03-10] MEDS ORDERED: DEXTROSE 5%-WATER - 1,000 ML IV SCH (11:00)
--- NOTE | 2018-03-10 11:01 | PN ---
Physical Exam: SUBJECTIVE: Patient seen and examined, non verbal, eyes closed, unable to do ROS. OBJECTIVE: Vital Signs Period Temp Pulse Resp BP Sys/Wills Pulse Ox Last 24 Hr 98.0 F-99.7 F 65-83 14-25 108-128/41-61 99 GENERAL: lying in bed in no acute distress Chest: poor effort Abdomen:soft, ND, no grimacing on exam, foleyi in place with some surrounding tube feed leakage Extremities: no edema Laboratory Results - last 24 hr 03/09/18 03/09/18 03/09/18 12:17 15:30 17:45 WBC 6.1 RBC 2.51 L Hgb 7.4 L Hct 23.1 L MCV 91.8 MCH 29.5 MCHC 32.1 RDW 19.7 H Plt Count 151 MPV 9.3 Absolute Neuts (auto) Neutrophils % Lymphocytes % Monocytes % Eosinophils % Basophils % Nucleated RBC % POC Glucometer 97 129 03/09/18 03/10/18 03/10/18 22:01 06:09 06:15 WBC 5.7 RBC 2.67 L Hgb 8.0 L Hct 24.5 L MCV 91.6 MCH 29.8 MCHC 32.5 RDW 19.2 H Plt Count 139 MPV 9.2 Absolute Neuts (auto) 4.3 Neutrophils % 76.3 Lymphocytes % 14.4 Monocytes % 8.0 Eosinophils % 0.9 Basophils % 0.4 D Nucleated RBC % 0 POC Glucometer 166 60 Active Medications Generic Name Dose Route Start Last Admin Trade Name Freq PRN Reason Stop Dose Admin Acetaminophen 650 mg 03/01/18 15:42 Tylenol - PO Q4H PRN FEVER Amino Acids 30 ml 03/05/18 17:30 03/09/18 17:44 Prosource No Carb Liquid Pkt PO 30 ml BID@0800,1730 [facility] Administration Artificial Tears 2 drop 03/01/18 22:00 03/09/18 22:06 Artificial Tears OU 2 drop BID [facility] Administration Atorvastatin Calcium 10 mg 03/01/18 22:00 03/09/18 22:04 Lipitor - GT 10 mg HS [facility] Administration Collagenase 1 applic 03/02/18 10:00 03/09/18 09:31 Santyl - TP 1 applic DAILY [facility] Administration Diltiazem HCl 10 mg 03/01/18 15:42 03/02/18 09:45 Cardizem Injection - IVPUSH 10 mg Q6H PRN Administration TACHYCARDIA Docusate Sodium 100 mg 03/01/18 15:42 Colace Liquid - PO DAILY PRN CONSTIPATION Ferrous Sulfate 300 mg 03/02/18 10:00 03/09/18 09:30 Feosol GT 300 mg DAILY [facility] Administration Dextrose 1,000 mls @ 42 mls/hr 03/10/18 11:00 D5w - IV .[id number] [facility] Insulin Aspart 1 vial 03/01/18 16:30 03/10/18 06:19 Novolog Vial Sliding Scale - SQ Not Given ACHS [facility] Protocol Insulin Detemir 10 units 03/10/18 22:00 Levemir Vial SQ HS [facility] Levothyroxine Sodium 37.5 mcg 03/02/18 07:00 03/10/18 07:11 Synthroid - PEG Not Given DAILY@0700 [facility] Metoprolol Tartrate 25 mg 03/02/18 22:00 03/09/18 22:05 Lopressor - PO Not Given BID [facility] Non-Formulary Medication 1 each 03/02/18 10:00 03/09/18 09:30 Non-Formulary Med GT 1 each DAILY [facility] Administration Nystatin 1 applic 03/01/18 22:00 03/09/18 22:04 Nystop Powder - TP 1 applic BID [facility] Administration Oxybutynin Chloride 5 mg 03/01/18 22:00 03/09/18 22:03 Ditropan - NGT 5 mg BID [facility] Administration Pantoprazole Sodium 40 mg 03/02/18 10:00 03/09/18 09:27 Protonix Packets For Oral Suspension - NGT 40 mg DAILY [facility] Administration Senna 8.8 mg 03/02/18 22:00 03/09/18 22:04 Senna Oral Solution - GT 8.8 mg HS [facility] Administration Sertraline HCl 50 mg 03/02/18 21:25 03/09/18 09:29 Zoloft - PO 50 mg DAILY [facility] Administration Simethicone 40 mg 03/02/18 14:35 03/07/18 17:08 Mylicon Liquid - GT 40 mg QID PRN Administration CONSTIPATION Tamsulosin HCl 0.4 mg 03/02/18 08:30 03/09/18 09:28 Flomax - PO 0.4 mg DAILY@0830 [facility] Administration Microbiology 02/17/18 03:00 Blood - Peripheral Venous Blood Culture - Final NO GROWTH AFTER 5 DAYS INCUBATION 02/17/18 03:00 Blood - Peripheral Venous Blood Culture - Final NO GROWTH AFTER 5 DAYS INCUBATION 02/17/18 10:40 Sputum - Endotrachea Suction/Ventilator Gram Stain - Final 02/17/18 10:40 Sputum - Endotrachea Suction/Ventilator Sputum Culture - Final Pseudomonas Aeruginosa Pseudo Fluorescens/[place] 02/16/18 23:40 Urine - Urine Clean Catch Urine Culture - Final NO GROWTH OBTAINED ASSESSMENT/PLAN: 87 year old male with a significant past medical history of diastolic heart failure, NIDDM, CKD, and 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 Admitted on 02/17/18 from [facility] chronic respiratory failure and severe anemia with a hg of 5.5 and hypotension. -PEG dislodgement -Acute Upper GI bleed from Dileufoy lesion -Acute blood loss anemia s/p 7 units PRBCs -Acute on chronic vent dependent respiratory failure, likely aspiration PNA. 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 Possible EGD today. Patient pulled PEG overnight. Discussed with Dr. Diaz this AM, christopher in place currently. Close monitoring, serial abdominal exams. Discussed with /Amy/Dr. Gonzalez yesterday, about family concerns for abdominal bloating and address rectal tube. Abdomen soft currently, monitor for now. s/p 15 days of zosyn. S/p bactrim, off abx, ID input appreciated. At prior vent settings renal function continues to improve, renal input appreciated. DVTPPX with SCDs dispo pending GI input and further course. Plan discussed with nursing, Dr. Diaz Total care time spent 40 min. Visit type - Emergency Visit Emergency Visit: Yes ED Registration Date: 02/17/18 Care time: The patient presented to the Emergency Department on the above date and was hospitalized for further evaluation of their emergent condition. - New Patient This patient is new to me today: No - Critical Care Critical Care patient: No - Discharge Referral Referred to [facility] Med P.C.: No
[2018-03-10] MEDS: DEXTROSE 5%-WATER - 1,000 ML IV SCH ×2 (11:55→12:00)
[2018-03-10] MEDS ORDERED: DEXTROSE 50%-WATER - 25 GM/50 ML VIAL IVPUSH ONE (11:56)
--- NOTE | 2018-03-10 14:02 | PN ---
Progress Note, Physician History of Present Illness: has been afebrile had g tube come out wbc has been normal patients family in room had a long talk with the son - Current Medication List Current Medications: Active Medications Acetaminophen (Tylenol -) 650 mg PO Q4H PRN PRN Reason: FEVER Amino Acids (Prosource No Carb Liquid Pkt) 30 ml PO BID@0800,1730 [facility] Last Admin: 03/09/18 17:44 Dose: 30 ml Artificial Tears (Artificial Tears) 2 drop OU BID [facility] Last Admin: 03/09/18 22:06 Dose: 2 drop Atorvastatin Calcium (Lipitor -) 10 mg GT HS [facility] Last Admin: 03/09/18 22:04 Dose: 10 mg Collagenase (Santyl -) 1 applic TP DAILY [facility] Last Admin: 03/09/18 09:31 Dose: 1 applic Diltiazem HCl (Cardizem Injection -) 10 mg IVPUSH Q6H PRN PRN Reason: TACHYCARDIA Last Admin: 03/02/18 09:45 Dose: 10 mg Docusate Sodium (Colace Liquid -) 100 mg PO DAILY PRN PRN Reason: CONSTIPATION Ferrous Sulfate (Feosol) 300 mg GT DAILY [facility] Last Admin: 03/09/18 09:30 Dose: 300 mg Dextrose (D5w -) 1,000 mls @ 75 mls/hr IV ASDIR [facility] Last Admin: 03/10/18 12:00 Dose: 75 mls/hr Insulin Aspart (Novolog Vial Sliding Scale -) 1 vial SQ [facility]; Protocol Last Admin: 03/10/18 06:19 Dose: Not Given Insulin Detemir (Levemir Vial) 10 units SQ [facility] Levothyroxine Sodium (Synthroid -) 37.5 mcg PEG DAILY@0700 [facility] Last Admin: 03/10/18 07:11 Dose: Not Given Metoprolol Tartrate (Lopressor -) 25 mg PO BID [facility] Last Admin: 03/09/18 22:05 Dose: Not Given Non-Formulary Medication (Non-Formulary Med) 1 each GT DAILY [facility] Last Admin: 03/09/18 09:30 Dose: 1 each Nystatin (Nystop Powder -) 1 applic TP BID [facility] Last Admin: 03/09/18 22:04 Dose: 1 applic Oxybutynin Chloride (Ditropan -) 5 mg NGT BID [facility] Last Admin: 03/09/18 22:03 Dose: 5 mg Pantoprazole Sodium (Protonix Packets For Oral Suspension -) 40 mg NGT DAILY [facility] Last Admin: 03/09/18 09:27 Dose: 40 mg Senna (Senna Oral Solution -) 8.8 mg GT HS [facility] Last Admin: 03/09/18 22:04 Dose: 8.8 mg Sertraline HCl (Zoloft -) 50 mg PO DAILY [facility] Last Admin: 03/09/18 09:29 Dose: 50 mg Simethicone (Mylicon Liquid -) 40 mg GT QID PRN PRN Reason: CONSTIPATION Last Admin: 03/07/18 17:08 Dose: 40 mg Tamsulosin HCl (Flomax -) 0.4 mg PO DAILY@0830 [facility] Last Admin: 03/09/18 09:28 Dose: 0.4 mg - Objective Vital Signs: Vital Signs Temperature 98.2 F 03/10/18 11:00 Pulse Rate 64 03/10/18 11:00 Respiratory Rate 14 03/10/18 11:14 Blood Pressure 115/50 03/10/18 11:00 O2 Sat by Pulse Oximetry (%) 100 03/10/18 09:00 Constitutional: Yes: No Distress, Calm Cardiovascular: Yes: Pulse Irregular, Other Respiratory: Yes: Mechanically Ventilated Gastrointestinal: Yes: Soft Neurological: Yes: Other Labs: CBC, BMP 03/10/18 06:15 03/09/18 09:00 INR, PTT INR 1.13 (0.82-1.09) 02/16/18 22:40 Assessment/Plan Problem List - Problems (1) Anemia Code(s): D64.9 - ANEMIA, UNSPECIFIED (2) Chronic kidney disease, stage 3 Code(s): N18.3 - CHRONIC KIDNEY DISEASE, STAGE 3 (MODERATE) (3) Chronic respiratory failure Code(s): J96.10 - CHRONIC RESPIRATORY FAILURE, UNSP W HYPOXIA OR HYPERCAPNIA Qualifiers: Respiratory failure complication: unspecified whether with hypoxia or hypercapnia Qualified Code(s): J96.10 - Chronic respiratory failure, unspecified whether with hypoxia or hypercapnia (4) PAF (paroxysmal atrial fibrillation) Code(s): I48.0 - PAROXYSMAL ATRIAL FIBRILLATION (5) Renal failure Code(s): N19 - UNSPECIFIED KIDNEY FAILURE Qualifiers: Renal failure chronicity: unspecified chronicity Qualified Code(s): N19 - Unspecified kidney failure (6) Diabetes Code(s): E11.9 - TYPE 2 DIABETES MELLITUS WITHOUT COMPLICATIONS (7) TBI (traumatic brain injury) Code(s): S06.9X9A - UNSP INTRACRANIAL INJURY W LOC OF UNSP DURATION, INIT (8) [id number] kidney injury Code(s): N17.9 - ACUTE KIDNEY FAILURE, UNSPECIFIED; N18.9 - CHRONIC KIDNEY DISEASE, UNSPECIFIED (9) [id number] renal failure Code(s): N17.9 - ACUTE KIDNEY FAILURE, UNSPECIFIED; N18.9 - CHRONIC KIDNEY DISEASE, UNSPECIFIED (10) Hypotension Code(s): I95.9 - HYPOTENSION, UNSPECIFIED (11) Hypotension Code(s): I95.9 - HYPOTENSION, UNSPECIFIED 12 gi bleed 13 difuleoy lesion 14 rash I plan continue to monitor off of abx nutrition rest as per primary care monitor abd as per pul suctioning if needed
--- NOTE | 2018-03-10 15:42 | PN ---
Progress Note, Physician History of Present Illness: NAD, Hgb 8 g/dl. No stigmata of overt GI bleeding. Abdomen soft. + BS. Track preserved with 16F Childs catheter. G-tube replaced with an 18F replacement tube w/o immediate complications. AXR with gastrografin ordered. Family at bedside. All questions and concerns addressed to their satisfaction. The G-tube will not be used until confirmed by the axr. - Current Medication List Current Medications: Active Medications Acetaminophen (Tylenol -) 650 mg PO Q4H PRN PRN Reason: FEVER Amino Acids (Prosource No Carb Liquid Pkt) 30 ml PO BID@0800,1730 [facility] Last Admin: 03/09/18 17:44 Dose: 30 ml Artificial Tears (Artificial Tears) 2 drop OU BID [facility] Last Admin: 03/09/18 22:06 Dose: 2 drop Atorvastatin Calcium (Lipitor -) 10 mg GT HS [facility] Last Admin: 03/09/18 22:04 Dose: 10 mg Collagenase (Santyl -) 1 applic TP DAILY [facility] Last Admin: 03/09/18 09:31 Dose: 1 applic Diltiazem HCl (Cardizem Injection -) 10 mg IVPUSH Q6H PRN PRN Reason: TACHYCARDIA Last Admin: 03/02/18 09:45 Dose: 10 mg Docusate Sodium (Colace Liquid -) 100 mg PO DAILY PRN PRN Reason: CONSTIPATION Ferrous Sulfate (Feosol) 300 mg GT DAILY [facility] Last Admin: 03/09/18 09:30 Dose: 300 mg Dextrose (D5w -) 1,000 mls @ 75 mls/hr IV ASDIR [facility] Last Admin: 03/10/18 12:00 Dose: 75 mls/hr Insulin Aspart (Novolog Vial Sliding Scale -) 1 vial SQ [facility]; Protocol Last Admin: 03/10/18 06:19 Dose: Not Given Insulin Detemir (Levemir Vial) 10 units SQ [facility] Levothyroxine Sodium (Synthroid -) 37.5 mcg PEG DAILY@0700 [facility] Last Admin: 03/10/18 07:11 Dose: Not Given Metoprolol Tartrate (Lopressor -) 25 mg PO BID [facility] Last Admin: 03/09/18 22:05 Dose: Not Given Non-Formulary Medication (Non-Formulary Med) 1 each GT DAILY [facility] Last Admin: 03/09/18 09:30 Dose: 1 each Nystatin (Nystop Powder -) 1 applic TP BID [facility] Last Admin: 03/09/18 22:04 Dose: 1 applic Oxybutynin Chloride (Ditropan -) 5 mg NGT BID [facility] Last Admin: 03/09/18 22:03 Dose: 5 mg Pantoprazole Sodium (Protonix Packets For Oral Suspension -) 40 mg NGT DAILY [facility] Last Admin: 03/09/18 09:27 Dose: 40 mg Senna (Senna Oral Solution -) 8.8 mg GT HS [facility] Last Admin: 03/09/18 22:04 Dose: 8.8 mg Sertraline HCl (Zoloft -) 50 mg PO DAILY [facility] Last Admin: 03/09/18 09:29 Dose: 50 mg Simethicone (Mylicon Liquid -) 40 mg GT QID PRN PRN Reason: CONSTIPATION Last Admin: 03/07/18 17:08 Dose: 40 mg Tamsulosin HCl (Flomax -) 0.4 mg PO DAILY@0830 [facility] Last Admin: 03/09/18 09:28 Dose: 0.4 mg - Objective Vital Signs: Vital Signs Temperature 98.3 F 03/10/18 14:03 Pulse Rate 72 03/10/18 14:03 Respiratory Rate 23 03/10/18 15:32 Blood Pressure 112/53 03/10/18 14:03 O2 Sat by Pulse Oximetry (%) 100 03/10/18 09:00 Labs: CBC, BMP 03/10/18 06:15 03/09/18 09:00 INR, PTT INR 1.13 (0.82-1.09) 02/16/18 22:40 Problem List - Problems (1) Acute renal failure Code(s): N17.9 - ACUTE KIDNEY FAILURE, UNSPECIFIED (2) Anemia Code(s): D64.9 - ANEMIA, UNSPECIFIED Qualifiers: Anemia type: due to chronic kidney disease Chronic kidney disease stage: unspecified stage Qualified Code(s): N18.9 - Chronic kidney disease, unspecified; D63.1 - Anemia in chronic kidney disease Assessment/Plan NAD, Hgb 8 g/dl. No stigmata of overt GI bleeding. Abdomen soft. + BS. Track preserved with 16F Childs catheter. G-tube replaced with an 18F replacement tube w/o immediate complications. AXR with gastrografin ordered. Family at bedside. All questions and concerns addressed to their satisfaction. The G-tube will not be used until confirmed by the axr.
--- NOTE | 2018-03-10 16:50 | PN ---
Progress Note (short form) - Note Progress Note: KUB discussed with the radiologist - need to inject more gastrografin. A new study ordered and discussed with the rad. tech. Problem List - Problems (1) Acute renal failure Code(s): N17.9 - ACUTE KIDNEY FAILURE, UNSPECIFIED (2) Anemia Code(s): D64.9 - ANEMIA, UNSPECIFIED Qualifiers: Anemia type: due to chronic kidney disease Chronic kidney disease stage: unspecified stage Qualified Code(s): N18.9 - Chronic kidney disease, unspecified; D63.1 - Anemia in chronic kidney disease
[2018-03-10] MEDS: AMINO ACIDS/PROTEIN HYDROLYS 30 ML LIQUID.PKT PO SCH ×2 (19:33→19:34)
[2018-03-10] MEDS: TAMSULOSIN HCL 0.4 MG CAP.ER.24H (FP) PO SCH (19:35)
[2018-03-10] MEDS: OXYBUTYNIN CHLORIDE 5 MG TABLET NGT SCH ×2 (19:36→23:44)
[2018-03-10] MEDS: FERROUS SO4 300 MG/5 ML ORAL SOLN UNIT DOSE CUPS GT SCH (19:36)
[2018-03-10] MEDS: METOPROLOL TARTRATE 25 MG TABLET (FP) PO SCH ×2 (19:36→23:44)
[2018-03-10] MEDS: NON-FORMULARY MED GT SCH (19:37)
[2018-03-10] MEDS: PANTOPRAZOLE SOD 40 MG SUSPENSION PACKET NGT SCH (19:45)
[2018-03-10] MEDS: SERTRALINE HCL 25 MG TABLET (FP) PO SCH (19:47)
[2018-03-10] MEDS ORDERED: INSULIN (LEVEMIR) 100 UNITS/ML UNITS SQ SCH (22:00)
[2018-03-10] MEDS: INSULIN (LEVEMIR) 100 UNITS/ML UNITS SQ SCH (23:19)
[2018-03-10] MEDS: ATORVASTATIN CA 10 MG TABLET (FP) GT SCH (23:44)
[2018-03-10] MEDS: SENNOSIDES 8.8 MG/5 ML BULK BOTTLE GT SCH (23:49)
[2018-03-11] MEDS: DEXTROSE 5%-WATER - 1,000 ML IV SCH ×2 (01:31→19:26)
[2018-03-11] MEDS ORDERED: DEXTROSE 50%-WATER 25 GM/50 ML DISP.SYRIN IVPUSH ONE (02:52)
[2018-03-11] MEDS ORDERED: DEXTROSE 50%-WATER 25 GM/50 ML DISP.SYRIN ONE (03:11)
[2018-03-11] MEDS: INSULIN SLIDING SCALE (NOVOLOG) 1 VIAL SQ SCH ×4 (06:00→21:05)
[2018-03-11] MEDS: LEVOTHYROXINE NA 25 MCG TABLET (FP) PEG SCH (07:28)
[2018-03-11 07:56] LABS: BASO % 0.5 % (0-2.0); EOS % 1.3 % (0-4.5); HEMATOCRIT 21.2 % (35.4-49); LYMPH % 15.4 % (8-40); MCHC 32.5 g/dl (32.0-35.9); MEAN CELL VOLUME 92.1 fl (80-96); MEAN PLT VOLUME 9.6 fl (7.5-11.1); NEUT % 74.8 % (42.8-82.8); PLATELET COUNT 125 K/MM3 (134-434); WHITE BLOOD COUNT 4.6 K/mm3 (4.0-10.0)
[2018-03-11 08:08] LABS: HEMOGLOBIN 6.9 GM/dL (11.7-16.9)
[2018-03-11 08:29] LABS: ANION GAP 9 (8-16); BLOOD UREA NITROGEN 85 mg/dL (7-18); CALCIUM 7.6 mg/dL (8.5-10.1); CHLORIDE 105 mmol/L (98-107); CO2 25 mmol/L (21-32); CREATININE 1.6 mg/dL (0.7-1.3); GLUCOSE,RANDOM 95 mg/dL (74-106); MAGNESIUM 1.9 mg/dL (1.8-2.4); PHOSPHOROUS 4.1 mg/dL (2.5-4.9); POTASSIUM 4.1 mmol/L (3.5-5.1); SODIUM 139 mmol/L (136-145)
--- NOTE | 2018-03-11 09:10 | PN ---
Progress Note, Physician History of Present Illness: NAD, Hgb 6.9 g/dl. No stigmata of overt GI bleeding. Abdomen soft. + BS. The G- tube was dislodged last night again however reinserted back imediately after. AXR with gastrografin ordered. Family was at bedside. The G-tube will not be used until confirmed by the axr. - Current Medication List Current Medications: Active Medications Acetaminophen (Tylenol -) 650 mg PO Q4H PRN PRN Reason: FEVER Amino Acids (Prosource No Carb Liquid Pkt) 30 ml PO BID@0800,1730 [facility] Last Admin: 03/10/18 19:34 Dose: Not Given Artificial Tears (Artificial Tears) 2 drop OU BID [facility] Last Admin: 03/10/18 23:49 Dose: 2 drop Atorvastatin Calcium (Lipitor -) 10 mg GT HS [facility] Last Admin: 03/10/18 23:44 Dose: Not Given Collagenase (Santyl -) 1 applic TP DAILY [facility] Last Admin: 03/10/18 10:00 Dose: 1 applic Diltiazem HCl (Cardizem Injection -) 10 mg IVPUSH Q6H PRN PRN Reason: TACHYCARDIA Last Admin: 03/02/18 09:45 Dose: 10 mg Docusate Sodium (Colace Liquid -) 100 mg PO DAILY PRN PRN Reason: CONSTIPATION Ferrous Sulfate (Feosol) 300 mg GT DAILY [facility] Last Admin: 03/10/18 19:36 Dose: Not Given Dextrose (D5w -) 1,000 mls @ 75 mls/hr IV ASDIR [facility] Last Admin: 03/11/18 01:31 Dose: 75 mls/hr Insulin Aspart (Novolog Vial Sliding Scale -) 1 vial SQ [facility]; Protocol Last Admin: 03/11/18 06:00 Dose: Not Given Insulin Detemir (Levemir Vial) 10 units SQ [facility] Last Admin: 03/10/18 23:19 Dose: 10 units Levothyroxine Sodium (Synthroid -) 37.5 mcg PEG DAILY@0700 [facility] Last Admin: 03/11/18 07:28 Dose: Not Given Metoprolol Tartrate (Lopressor -) 25 mg PO BID [facility] Last Admin: 03/10/18 23:44 Dose: Not Given Non-Formulary Medication (Non-Formulary Med) 1 each GT DAILY [facility] Last Admin: 03/10/18 19:37 Dose: Not Given Nystatin (Nystop Powder -) 1 applic TP BID [facility] Last Admin: 03/10/18 23:48 Dose: 1 applic Oxybutynin Chloride (Ditropan -) 5 mg NGT BID [facility] Last Admin: 03/10/18 23:44 Dose: Not Given Pantoprazole Sodium (Protonix Packets For Oral Suspension -) 40 mg NGT DAILY [facility] Last Admin: 03/10/18 19:45 Dose: Not Given Senna (Senna Oral Solution -) 8.8 mg GT HS [facility] Last Admin: 03/10/18 23:49 Dose: Not Given Sertraline HCl (Zoloft -) 50 mg PO DAILY [facility] Last Admin: 03/10/18 19:47 Dose: Not Given Simethicone (Mylicon Liquid -) 40 mg GT QID PRN PRN Reason: CONSTIPATION Last Admin: 03/07/18 17:08 Dose: 40 mg Tamsulosin HCl (Flomax -) 0.4 mg PO DAILY@0830 [facility] Last Admin: 03/10/18 19:35 Dose: Not Given - Objective Vital Signs: Vital Signs Temperature 97.9 F 03/11/18 06:00 Pulse Rate 69 03/11/18 08:31 Respiratory Rate 20 03/11/18 08:31 Blood Pressure 119/56 03/11/18 06:00 O2 Sat by Pulse Oximetry (%) 99 03/11/18 08:31 Constitutional: Yes: No Distress, Calm Gastrointestinal: Yes: Soft, Distention. No: Melena, Rectal Bleeding, Tenderness, Epigastrium, Tenderness, Rebound, Vomiting Labs: CBC, BMP 03/11/18 06:20 03/11/18 06:20 INR, PTT INR 1.13 (0.82-1.09) 02/16/18 22:40 Laboratory Last Values WBC 4.6 K/mm3 (4.0-10.0) 03/11/18 06:20 RBC 2.30 M/mm3 (4.00-5.60) L 03/11/18 06:20 Hgb 6.9 GM/dL (11.7-16.9) L* 03/11/18 06:20 Hct 21.2 % (35.4-49) L 03/11/18 06:20 MCV 92.1 fl (80-96) 03/11/18 06:20 MCH 30.0 pg (25.7-33.7) 03/11/18 06:20 MCHC 32.5 g/dl (32.0-35.9) 03/11/18 06:20 RDW 19.0 % (11.9-15.9) H 03/11/18 06:20 Plt Count 125 K/MM3 (134-434) L 03/11/18 06:20 MPV 9.6 fl (7.5-11.1) 03/11/18 06:20 Absolute Neuts (auto) 3.4 # 03/11/18 06:20 Total Counted 100 02/24/18 15:30 Neutrophils % 74.8 % (42.8-82.8) 03/11/18 06:20 Neutrophils % (Manual) 84.0 % (42.8-82.8) H 02/24/18 15:30 Band Neutrophils % 6.0 % 02/24/18 15:30 Lymphocytes % 15.4 % (8-40) 03/11/18 06:20 Lymphocytes % (Manual) 9.0 % (8-40) D 02/24/18 15:30 Monocytes % 8.0 % (3.8-10.2) 03/11/18 06:20 Monocytes % (Manual) 1 % (3.8-10.2) L 02/24/18 15:30 Eosinophils % 1.3 % (0-4.5) 03/11/18 06:20 Basophils % 0.5 % (0-2.0) 03/11/18 06:20 Nucleated RBC % 0 % (0-0) 03/11/18 06:20 Hypochromia 1+ 03/03/18 13:35 Platelet Estimate Adequate 03/03/18 21:30 Platelet Comment 03/03/18 21:30 Polychromasia 1+ 02/24/18 15:30 Anisocytosis 2+ 03/03/18 13:35 Microcytosis 1+ 02/24/18 15:30 Macrocytosis 2+ 02/24/18 15:30 Ovalocytes 1+ 02/24/18 15:30 [place] Cells 1+ 02/24/18 15:30 ESR 116 mm/hr (0-20) H 02/18/18 06:00 Retic Count 1.81 % (0.5-1.5) H 02/17/18 08:00 Haptoglobin 113 mg/dL (34-200) 02/20/18 08:44 PT with INR 12.80 SEC (9.7-13.0) 02/16/18 22:40 INR 1.13 (0.82-1.09) 02/16/18 22:40 PTT (Actin FS) 33.2 SECONDS (26.9-34.4) 02/16/18 22:40 Sodium 139 mmol/L (136-145) 03/11/18 06:20 Potassium 4.1 mmol/L (3.5-5.1) 03/11/18 06:20 Chloride 105 mmol/L (98-107) 03/11/18 06:20 Carbon Dioxide 25 mmol/L (21-32) 03/11/18 06:20 Anion Gap 9 (8-16) 03/11/18 06:20 BUN 85 mg/dL (7-18) H 03/11/18 06:20 Creatinine 1.6 mg/dL (0.7-1.3) H 03/11/18 06:20 Creat Clearance w eGFR 41.29 (>60) 03/11/18 06:20 POC Glucometer 93 UNITS (80-120) 03/11/18 05:16 Random Glucose 95 mg/dL (74-106) 03/11/18 06:20 Calcium 7.6 mg/dL (8.5-10.1) L 03/11/18 06:20 Phosphorus 4.1 mg/dL (2.5-4.9) 03/11/18 06:20 Magnesium 1.9 mg/dL (1.8-2.4) 03/11/18 06:20 Iron 44 ug/dL (38-169) 02/17/18 08:00 TIBC 147 ug/dL (250-450) L 02/17/18 08:00 Iron Saturation 30 % (15-55) 02/17/18 08:00 Ferritin 245.8 ng/ml (16.4-293.9) 02/17/18 08:00 Total Bilirubin 0.2 mg/dL (0.2-1.0) 03/09/18 09:00 AST 92 U/L (15-37) H 03/09/18 09:00 ALT 137 U/L (12-78) H 03/09/18 09:00 Alkaline Phosphatase 188 U/L (45-117) H 03/09/18 09:00 LD Total 252 U/L (87-241) H 02/20/18 07:55 Troponin I < 0.02 ng/ml (0.00-0.05) 02/16/18 22:40 C-Reactive Protein 10.6 MG/DL (0.00-0.3) H 02/18/18 06:20 Total Protein 5.4 g/dl (6.4-8.2) L 03/09/18 09:00 Albumin 1.9 g/dl (3.4-5.0) L 03/09/18 09:00 Beta Globulins 0.9 g/dL (0.7-1.3) 02/18/18 06:20 Vitamin B12 705 pg/ml (180-914) 02/18/18 06:30 Serum Folate 19 ng/ml (3.1-17.5) H 02/18/18 06:30 Urine Color Yellow 02/16/18 23:40 Urine Appearance Slcloudy 02/16/18 23:40 Urine pH 5.0 (5.0-8.0) 02/16/18 23:40 Ur Specific [place] 1.011 (1.001-1.035) 02/16/18 23:40 Urine Protein 2+ (NEGATIVE) H 02/16/18 23:40 Urine Glucose (UA) Negative (NEGATIVE) 02/16/18 23:40 Urine Ketones Negative (NEGATIVE) 02/16/18 23:40 Urine Blood 3+ (NEGATIVE) H 02/16/18 23:40 Urine Nitrite Negative (NEGATIVE) 02/16/18 23:40 Urine Bilirubin Negative (<2.0 mg/dL) 02/16/18 23:40 Urine Urobilinogen Negative mg/dL (0.2-1.0) 02/16/18 23:40 Ur Leukocyte Esterase Negative (NEGATIVE) 02/16/18 23:40 Urine WBC (Auto) 4 /hpf (3-5) 02/16/18 23:40 Urine RBC (Auto) 41 /hpf (0-3) 02/16/18 23:40 Urine Bacteria Rare /hpf (NONE SEEN) 02/16/18 23:40 Stool Occult Blood Positive (NEGATIVE) 02/21/18 15:00 FABIAN & SPEP Interp (.) 02/18/18 06:20 Total Protein (FABIAN) 5.7 g/dL (6.0-8.5) L 02/18/18 06:20 Albumin (FABIAN) 2.3 g/dL (2.9-4.4) L 02/18/18 06:20 Albumin/Globulin (FABIAN) 0.7 (0.7-1.7) 02/18/18 06:20 [id number] FABIAN 0.4 g/dL (0.0-0.4) 02/18/18 06:20 [id number] FABIAN 0.6 g/dL (0.4-1.0) 02/18/18 06:20 Gamma Globulins (FABIAN) 1.5 g/dL (0.4-1.8) 02/18/18 06:20 FABIAN M-Osbaldo Not observed g/dL (Not Observed) 02/18/18 06:20 FABIAN Comments (.) 02/18/18 06:20 IEP IgG 1257 mg/dL (700-1600) 02/18/18 06:20 IEP IgA 510 mg/dL (61-437) H 02/18/18 06:20 IEP IgM 45 mg/dL (15-143) 02/18/18 06:20 ELISABETH Screen Negative (.) 02/18/18 06:20 Blood Type O POSITIVE 02/22/18 15:30 Antibody Screen Negative 02/22/18 15:30 Direct Antiglob Test Negative (NEGATIVE) 02/20/18 08:44 Crossmatch See Detail 02/22/18 15:30 Problem List - Problems (1) Acute renal failure Code(s): N17.9 - ACUTE KIDNEY FAILURE, UNSPECIFIED (2) Anemia Code(s): D64.9 - ANEMIA, UNSPECIFIED Qualifiers: Anemia type: due to chronic kidney disease Chronic kidney disease stage: unspecified stage Qualified Code(s): N18.9 - Chronic kidney disease, unspecified; D63.1 - Anemia in chronic kidney disease Assessment/Plan Repeat Hgb this am. Follow AXR. NPO.
[2018-03-11 09:44] LABS: BASO % 0.4 % (0-2.0); EOS % 1.5 % (0-4.5); HEMATOCRIT 21.9 % (35.4-49); HEMOGLOBIN 7.1 GM/dL (11.7-16.9); LYMPH % 19.2 % (8-40); MCH 29.6 pg (25.7-33.7); MCHC 32.4 g/dl (32.0-35.9); MEAN CELL VOLUME 91.5 fl (80-96); MEAN PLT VOLUME 9.8 fl (7.5-11.1); MONO % 7.5 % (3.8-10.2); NEUT % 71.4 % (42.8-82.8); PLATELET COUNT 132 K/MM3 (134-434); RBC 2.39 M/mm3 (4.00-5.60); RDW 18.8 % (11.9-15.9); WHITE BLOOD COUNT 4.5 K/mm3 (4.0-10.0)
[2018-03-11] MEDS ORDERED: PT OWN MED DRAWER 7, Y5N ONE ×3 (10:44→20:54)
[2018-03-11] MEDS: FERROUS SO4 300 MG/5 ML ORAL SOLN UNIT DOSE CUPS GT SCH (11:18)
[2018-03-11] MEDS: AMINO ACIDS/PROTEIN HYDROLYS 30 ML LIQUID.PKT PO SCH ×2 (11:18→17:49)
[2018-03-11] MEDS: SERTRALINE HCL 25 MG TABLET (FP) PO SCH (11:19)
[2018-03-11] MEDS: METOPROLOL TARTRATE 25 MG TABLET (FP) PO SCH ×2 (11:19→21:04)
[2018-03-11] MEDS: PANTOPRAZOLE SOD 40 MG SUSPENSION PACKET NGT SCH (11:19)
[2018-03-11] MEDS: OXYBUTYNIN CHLORIDE 5 MG TABLET NGT SCH ×2 (11:19→21:04)
[2018-03-11] MEDS: ARTIFICIAL TEARS (POLYVINYL ALCOHOL 1.4%) OPTH DROPS OU SCH ×2 (11:19→21:04)
[2018-03-11] MEDS: TAMSULOSIN HCL 0.4 MG CAP.ER.24H (FP) PO SCH (11:19)
[2018-03-11] MEDS: NYSTATIN POWDER 100,000 UNITS/GM - 15 GM TOPICAL POWDER TP SCH ×2 (11:20→21:08)
[2018-03-11] MEDS: COLLAGENASE CLOSTRIDIUM HIST. 30 GRAMS TUBE TP SCH (11:20)
--- NOTE | 2018-03-11 11:40 | PN ---
Progress Note, Physician History of Present Illness: 87M w/ pmh of traumatic fall (s/p neck (C4,5, and 6)/back surgery, tracheotomy placement now ventilator dependent, and PEG tube placement), frequent pneumonia , emphysema, A-fib, CHF, DM, dementia, renal failure, nonverbal TBI, paraplegia , and legal blindness and deafness, who presents to the emergency department via EMS from [facility] with 3 days of hypotension. As per patients son , his blood pressure has been decreasing over the past few days. He reports that at baseline, his systolic is between 110-119 in the mornings and between 100-109 at night. Pt has failed 5 weaning trials in the last few days, and it was noticed that there was blood around the tracheostomy site when suctioning. Pt' son denies recent fevers, chills, chest pain, emesis, hematemesis, melena, and hematochezia in pt. - Current Medication List Current Medications: Active Medications Acetaminophen (Tylenol -) 650 mg PO Q4H PRN PRN Reason: FEVER Amino Acids (Prosource No Carb Liquid Pkt) 30 ml PO BID@0800,1730 [facility] Last Admin: 03/11/18 11:18 Dose: 30 ml Artificial Tears (Artificial Tears) 2 drop OU BID [facility] Last Admin: 03/11/18 11:19 Dose: 2 drop Atorvastatin Calcium (Lipitor -) 10 mg GT HS [facility] Last Admin: 03/10/18 23:44 Dose: Not Given Collagenase (Santyl -) 1 applic TP DAILY [facility] Last Admin: 03/11/18 11:20 Dose: 1 applic Diltiazem HCl (Cardizem Injection -) 10 mg IVPUSH Q6H PRN PRN Reason: TACHYCARDIA Last Admin: 03/02/18 09:45 Dose: 10 mg Docusate Sodium (Colace Liquid -) 100 mg PO DAILY PRN PRN Reason: CONSTIPATION Ferrous Sulfate (Feosol) 300 mg GT DAILY [facility] Last Admin: 03/11/18 11:18 Dose: 300 mg Dextrose (D5w -) 1,000 mls @ 75 mls/hr IV ASDIR [facility] Last Admin: 03/11/18 01:31 Dose: 75 mls/hr Insulin Aspart (Novolog Vial Sliding Scale -) 1 vial SQ [facility]; Protocol Last Admin: 03/11/18 06:00 Dose: Not Given Insulin Detemir (Levemir Vial) 10 units SQ [facility] Last Admin: 03/10/18 23:19 Dose: 10 units Levothyroxine Sodium (Synthroid -) 37.5 mcg PEG DAILY@0700 [facility] Last Admin: 03/11/18 07:28 Dose: Not Given Metoprolol Tartrate (Lopressor -) 25 mg PO BID [facility] Last Admin: 03/11/18 11:19 Dose: 25 mg Non-Formulary Medication (Non-Formulary Med) 1 each GT DAILY [facility] Last Admin: 03/10/18 19:37 Dose: Not Given Nystatin (Nystop Powder -) 1 applic TP BID [facility] Last Admin: 03/11/18 11:20 Dose: 1 applic Oxybutynin Chloride (Ditropan -) 5 mg NGT BID [facility] Last Admin: 03/11/18 11:19 Dose: 5 mg Pantoprazole Sodium (Protonix Packets For Oral Suspension -) 40 mg NGT DAILY [facility] Last Admin: 03/11/18 11:19 Dose: 40 mg Senna (Senna Oral Solution -) 8.8 mg GT [facility] Last Admin: 03/10/18 23:49 Dose: Not Given Sertraline HCl (Zoloft -) 50 mg PO DAILY [facility] Last Admin: 03/11/18 11:19 Dose: 50 mg Simethicone (Mylicon Liquid -) 40 mg GT QID PRN PRN Reason: CONSTIPATION Last Admin: 03/07/18 17:08 Dose: 40 mg Tamsulosin HCl (Flomax -) 0.4 mg PO DAILY@0830 [facility] Last Admin: 03/11/18 11:19 Dose: 0.4 mg - Objective Vital Signs: Vital Signs Temperature 97.9 F 03/11/18 06:00 Pulse Rate 69 03/11/18 08:31 Respiratory Rate 15 03/11/18 11:20 Blood Pressure 119/56 03/11/18 06:00 O2 Sat by Pulse Oximetry (%) 99 03/11/18 11:21 Eyes: Yes: WNL, Conjunctiva Clear, EOM Intact HENT: Yes: WNL, Atraumatic, Normocephalic Neck: Yes: WNL, Supple, Trachea Midline Cardiovascular: Yes: WNL, Regular Rate and Rhythm Respiratory: Yes: Mechanically Ventilated Gastrointestinal: Yes: WNL, Normal Bowel Sounds Genitourinary: Yes: WNL Musculoskeletal: Yes: WNL Extremities: Yes: WNL Edema: No Integumentary: Yes: WNL Neurological: Yes: WNL, Alert, Oriented ...Motor Strength: WNL Psychiatric: Yes: WNL Labs: CBC, BMP 03/11/18 09:10 03/11/18 06:20 INR, PTT INR 1.13 (0.82-1.09) 02/16/18 22:40 Assessment/Plan - Problems (1) Anemia Assessment/Plan: s/p EGD, cauterization, and PRBCs. Maintain hydration. F/u BUn/Cr, Hb (8.5-->7.4). Code(s): D64.9 - ANEMIA, UNSPECIFIED Qualifiers: Anemia type: due to chronic kidney disease Chronic kidney disease stage: unspecified stage Qualified Code(s): N18.9 - Chronic kidney disease, unspecified; D63.1 - Anemia in chronic kidney disease (2) Chronic kidney disease, stage 3 Assessment/Plan: f/u with cloth hauler; Improving BUN/Cr since GI cauterization. Code(s): N18.3 - CHRONIC KIDNEY DISEASE, STAGE 3 (MODERATE) (3) Chronic respiratory failure Assessment/Plan: Ventilator dependent; on trach. Code(s): J96.10 - CHRONIC RESPIRATORY FAILURE, UNSP W HYPOXIA OR HYPERCAPNIA Qualifiers: Respiratory failure complication: unspecified whether with hypoxia or hypercapnia Qualified Code(s): J96.10 - Chronic respiratory failure, unspecified whether with hypoxia or hypercapnia (4) Hematuria Code(s): R31.9 - HEMATURIA, UNSPECIFIED (5) PAF (paroxysmal atrial fibrillation) Assessment/Plan: EKG 02/23/18: AF with RVR (HR 150 bpm); now has HR in 80s bpm. Increased metoprolol to 25 mg bid (pt has required occasional IV diltiazem for rapid VR); f/u HR and BP, and increase metoprolol as tolerated. If pt becomes profoundly bradycardia, will have to consider PPM. anticoagulation held due to GI bleed. TSH 3.59 recently. Code(s): I48.0 - PAROXYSMAL ATRIAL FIBRILLATION (6) S/P percutaneous endoscopic gastrostomy (PEG) tube placement Assessment/Plan: site appears intact Code(s): Z93.1 - GASTROSTOMY STATUS (7) Acute on chronic diastolic CHF (congestive heart failure) Code(s): I50.33 - ACUTE ON CHRONIC DIASTOLIC (CONGESTIVE) HEART FAILURE (8) Sinus bradycardia Code(s): R00.1 - BRADYCARDIA, UNSPECIFIED (9) TBI (traumatic brain injury) Code(s): S06.9X9A - UNSP INTRACRANIAL INJURY W LOC OF UNSP DURATION, INIT Qualifiers: Encounter type: sequela Loss of consciousness presence/duration: with LOC of unspecified duration Qualified Code(s): S06.9X9S - Unspecified intracranial injury with loss of consciousness of unspecified duration, sequela (10) Severe mitral regurgitation Code(s): I34.0 - NONRHEUMATIC MITRAL (VALVE) INSUFFICIENCY (11) Hypokalemia Assessment/Plan: Keep K+ 4-4.5 (4.8 today). F/u Mg, and keep 2-2.3 Keep PO4 2.5-3.5 Code(s): E87.6 - HYPOKALEMIA (12) Hypoalbuminemia Code(s): E88.09 - [facility] DISORDERS OF PLASMA-PROTEIN METABOLISM, NEC
--- NOTE | 2018-03-11 11:40 | PN ---
Progress Note, Physician History of Present Illness: vented no issues overnight - Current Medication List Current Medications: Active Medications Acetaminophen (Tylenol -) 650 mg PO Q4H PRN PRN Reason: FEVER Amino Acids (Prosource No Carb Liquid Pkt) 30 ml PO BID@0800,1730 [facility] Last Admin: 03/11/18 11:18 Dose: 30 ml Artificial Tears (Artificial Tears) 2 drop OU BID [facility] Last Admin: 03/11/18 11:19 Dose: 2 drop Atorvastatin Calcium (Lipitor -) 10 mg GT HS [facility] Last Admin: 03/10/18 23:44 Dose: Not Given Collagenase (Santyl -) 1 applic TP DAILY [facility] Last Admin: 03/11/18 11:20 Dose: 1 applic Diltiazem HCl (Cardizem Injection -) 10 mg IVPUSH Q6H PRN PRN Reason: TACHYCARDIA Last Admin: 03/02/18 09:45 Dose: 10 mg Docusate Sodium (Colace Liquid -) 100 mg PO DAILY PRN PRN Reason: CONSTIPATION Ferrous Sulfate (Feosol) 300 mg GT DAILY [facility] Last Admin: 03/11/18 11:18 Dose: 300 mg Dextrose (D5w -) 1,000 mls @ 75 mls/hr IV ASDIR [facility] Last Admin: 03/11/18 01:31 Dose: 75 mls/hr Insulin Aspart (Novolog Vial Sliding Scale -) 1 vial SQ [facility]; Protocol Last Admin: 03/11/18 06:00 Dose: Not Given Insulin Detemir (Levemir Vial) 10 units SQ [facility] Last Admin: 03/10/18 23:19 Dose: 10 units Levothyroxine Sodium (Synthroid -) 37.5 mcg PEG DAILY@0700 [facility] Last Admin: 03/11/18 07:28 Dose: Not Given Metoprolol Tartrate (Lopressor -) 25 mg PO BID [facility] Last Admin: 03/11/18 11:19 Dose: 25 mg Non-Formulary Medication (Non-Formulary Med) 1 each GT DAILY [facility] Last Admin: 03/10/18 19:37 Dose: Not Given Nystatin (Nystop Powder -) 1 applic TP BID [facility] Last Admin: 03/11/18 11:20 Dose: 1 applic Oxybutynin Chloride (Ditropan -) 5 mg NGT BID [facility] Last Admin: 03/11/18 11:19 Dose: 5 mg Pantoprazole Sodium (Protonix Packets For Oral Suspension -) 40 mg NGT DAILY [facility] Last Admin: 03/11/18 11:19 Dose: 40 mg Senna (Senna Oral Solution -) 8.8 mg GT HS [facility] Last Admin: 03/10/18 23:49 Dose: Not Given Sertraline HCl (Zoloft -) 50 mg PO DAILY [facility] Last Admin: 03/11/18 11:19 Dose: 50 mg Simethicone (Mylicon Liquid -) 40 mg GT QID PRN PRN Reason: CONSTIPATION Last Admin: 03/07/18 17:08 Dose: 40 mg Tamsulosin HCl (Flomax -) 0.4 mg PO DAILY@0830 [facility] Last Admin: 03/11/18 11:19 Dose: 0.4 mg - Objective Vital Signs: Vital Signs Temperature 97.9 F 03/11/18 06:00 Pulse Rate 69 03/11/18 08:31 Respiratory Rate 15 03/11/18 11:20 Blood Pressure 119/56 03/11/18 06:00 O2 Sat by Pulse Oximetry (%) 99 03/11/18 11:21 Constitutional: Yes: No Distress, Calm Cardiovascular: Yes: Pulse Irregular Respiratory: Yes: Mechanically Ventilated, Other (trach) Gastrointestinal: Yes: Soft Neurological: Yes: Other Labs: CBC, BMP 03/11/18 09:10 03/11/18 06:20 INR, PTT INR 1.13 (0.82-1.09) 02/16/18 22:40 Assessment/Plan Problem List - Problems (1) Anemia Code(s): D64.9 - ANEMIA, UNSPECIFIED (2) Chronic kidney disease, stage 3 Code(s): N18.3 - CHRONIC KIDNEY DISEASE, STAGE 3 (MODERATE) (3) Chronic respiratory failure Code(s): J96.10 - CHRONIC RESPIRATORY FAILURE, UNSP W HYPOXIA OR HYPERCAPNIA Qualifiers: Respiratory failure complication: unspecified whether with hypoxia or hypercapnia Qualified Code(s): J96.10 - Chronic respiratory failure, unspecified whether with hypoxia or hypercapnia (4) PAF (paroxysmal atrial fibrillation) Code(s): I48.0 - PAROXYSMAL ATRIAL FIBRILLATION (5) Renal failure Code(s): N19 - UNSPECIFIED KIDNEY FAILURE Qualifiers: Renal failure chronicity: unspecified chronicity Qualified Code(s): N19 - Unspecified kidney failure (6) Diabetes Code(s): E11.9 - TYPE 2 DIABETES MELLITUS WITHOUT COMPLICATIONS (7) TBI (traumatic brain injury) Code(s): S06.9X9A - UNSP INTRACRANIAL INJURY W LOC OF UNSP DURATION, INIT (8) Cjvzy-pq-oqmissn kidney injury Code(s): N17.9 - ACUTE KIDNEY FAILURE, UNSPECIFIED; N18.9 - CHRONIC KIDNEY DISEASE, UNSPECIFIED (9) Vbatd-tu-qfkphud renal failure Code(s): N17.9 - ACUTE KIDNEY FAILURE, UNSPECIFIED; N18.9 - CHRONIC KIDNEY DISEASE, UNSPECIFIED (10) Hypotension Code(s): I95.9 - HYPOTENSION, UNSPECIFIED (11) Hypotension Code(s): I95.9 - HYPOTENSION, UNSPECIFIED 12 gi bleed 13 difuleoy lesion 14 rash I plan continue to monitor off of abx nutrition rest as per primary care monitor abd as per pul suctioning if needed
--- NOTE | 2018-03-11 11:44 | PN ---
Progress Note (short form) - Note Progress Note: PULMONARY Vented on volume assist control. No fevers recorded. Overnight events noted. Vital Signs Period Temp Pulse Resp BP Sys/Wills Pulse Ox Last 24 Hr 97.2 F-98.9 F 56-103 14-24 106-122/45-69 99-99 Gen: vented Heart: RRR Lung: decreased breath sounds at the bases Abd: soft, nontender Ext: no edema CBC, BMP 03/11/18 09:10 03/11/18 06:20 Active Medications Acetaminophen (Tylenol -) 650 mg PO Q4H PRN PRN Reason: FEVER Amino Acids (Prosource No Carb Liquid Pkt) 30 ml PO BID@0800,1730 [facility] Last Admin: 03/11/18 11:18 Dose: 30 ml Artificial Tears (Artificial Tears) 2 drop OU BID [facility] Last Admin: 03/11/18 11:19 Dose: 2 drop Atorvastatin Calcium (Lipitor -) 10 mg GT HS [facility] Last Admin: 03/10/18 23:44 Dose: Not Given Collagenase (Santyl -) 1 applic TP DAILY [facility] Last Admin: 03/11/18 11:20 Dose: 1 applic Diltiazem HCl (Cardizem Injection -) 10 mg IVPUSH Q6H PRN PRN Reason: TACHYCARDIA Last Admin: 03/02/18 09:45 Dose: 10 mg Docusate Sodium (Colace Liquid -) 100 mg PO DAILY PRN PRN Reason: CONSTIPATION Ferrous Sulfate (Feosol) 300 mg GT DAILY [facility] Last Admin: 03/11/18 11:18 Dose: 300 mg Dextrose (D5w -) 1,000 mls @ 75 mls/hr IV ASDIR [facility] Last Admin: 03/11/18 01:31 Dose: 75 mls/hr Insulin Aspart (Novolog Vial Sliding Scale -) 1 vial SQ [facility]; Protocol Last Admin: 03/11/18 06:00 Dose: Not Given Insulin Detemir (Levemir Vial) 10 units SQ [facility] Last Admin: 03/10/18 23:19 Dose: 10 units Levothyroxine Sodium (Synthroid -) 37.5 mcg PEG DAILY@0700 [facility] Last Admin: 03/11/18 07:28 Dose: Not Given Metoprolol Tartrate (Lopressor -) 25 mg PO BID [facility] Last Admin: 03/11/18 11:19 Dose: 25 mg Non-Formulary Medication (Non-Formulary Med) 1 each GT DAILY [facility] Last Admin: 03/10/18 19:37 Dose: Not Given Nystatin (Nystop Powder -) 1 applic TP BID [facility] Last Admin: 03/11/18 11:20 Dose: 1 applic Oxybutynin Chloride (Ditropan -) 5 mg NGT BID [facility] Last Admin: 03/11/18 11:19 Dose: 5 mg Pantoprazole Sodium (Protonix Packets For Oral Suspension -) 40 mg NGT DAILY [facility] Last Admin: 03/11/18 11:19 Dose: 40 mg Senna (Senna Oral Solution -) 8.8 mg GT HS [facility] Last Admin: 03/10/18 23:49 Dose: Not Given Sertraline HCl (Zoloft -) 50 mg PO DAILY [facility] Last Admin: 03/11/18 11:19 Dose: 50 mg Simethicone (Mylicon Liquid -) 40 mg GT QID PRN PRN Reason: CONSTIPATION Last Admin: 03/07/18 17:08 Dose: 40 mg Tamsulosin HCl (Flomax -) 0.4 mg PO DAILY@0830 [facility] Last Admin: 03/11/18 11:19 Dose: 0.4 mg A/P GI Bleed/Gastric Dieulafoy Lesion s/p EGD/epi/cautery Acute Blood Loss Anemia Chronic Respiratory Failure Pneumonia h/o Traumatic Brain Injury Functional Quadriplegia Acute on Chronic Renal Failure Atrial Fibrillation DM Dementia - monitor H/H - protonix - antibiotics per ID - rate control - holding anticoagulation - continue volume assist control - poor candidate for weaning due to poor mental status - enteral feeds as tolerated - DVT/GI prophylaxis
--- NOTE | 2018-03-11 11:49 | PN ---
Physical Exam: SUBJECTIVE: Patient seen and examined resting comfortably on bed. OBJECTIVE: Vital Signs Period Temp Pulse Resp BP Sys/Wills Pulse Ox Last 24 Hr 97.2 F-98.9 F 56-103 14-24 106-122/45-69 99-99 GENERAL: Resting comfortably, Nonverbal EYES: Eyes open sporadically, unable to exam LUNGS: Mechanical Breath sounds anteriorly HEART: Regular rate and rhythm, S1, S2 without murmur, rub or gallop. ABDOMEN: Soft, normoactive bowel sounds, PEG tube present without bleeding, drainage : Christopher catheter present, draining clear yellow urine NEUROLOGICAL: Upper extremities contracted b/l Laboratory Results - last 24 hr 03/10/18 03/10/18 03/10/18 11:49 13:13 16:20 WBC RBC Hgb Hct MCV MCH MCHC RDW Plt Count MPV Absolute Neuts (auto) Neutrophils % Lymphocytes % Monocytes % Eosinophils % Basophils % Nucleated RBC % Sodium Potassium Chloride Carbon Dioxide Anion Gap BUN Creatinine Creat Clearance w eGFR POC Glucometer 53 125 101 Random Glucose Calcium Phosphorus Magnesium Blood Type Antibody Screen Crossmatch 03/10/18 03/11/18 03/11/18 23:17 02:45 05:16 WBC RBC Hgb Hct MCV MCH MCHC RDW Plt Count MPV Absolute Neuts (auto) Neutrophils % Lymphocytes % Monocytes % Eosinophils % Basophils % Nucleated RBC % Sodium Potassium Chloride Carbon Dioxide Anion Gap BUN Creatinine Creat Clearance w eGFR POC Glucometer 156 49 93 Random Glucose Calcium Phosphorus Magnesium Blood Type Antibody Screen Crossmatch 03/11/18 03/11/18 03/11/18 06:20 06:20 08:50 WBC 4.6 RBC 2.30 L Hgb 6.9 L* Hct 21.2 L MCV 92.1 MCH 30.0 MCHC 32.5 RDW 19.0 H Plt Count 125 L MPV 9.6 Absolute Neuts (auto) 3.4 Neutrophils % 74.8 Lymphocytes % 15.4 Monocytes % 8.0 Eosinophils % 1.3 Basophils % 0.5 Nucleated RBC % 0 Sodium 139 Potassium 4.1 Chloride 105 Carbon Dioxide 25 Anion Gap 9 BUN 85 H Creatinine 1.6 H Creat Clearance w eGFR 41.29 POC Glucometer Random Glucose 95 Calcium 7.6 L Phosphorus 4.1 Magnesium 1.9 Blood Type O POSITIVE Antibody Screen Negative Crossmatch See Detail 03/11/18 03/11/18 09:10 09:50 WBC 4.5 RBC 2.39 L Hgb 7.1 L Hct 21.9 L MCV 91.5 MCH 29.6 MCHC 32.4 RDW 18.8 H Plt Count 132 L MPV 9.8 Absolute Neuts (auto) 3.2 Neutrophils % 71.4 Lymphocytes % 19.2 D Monocytes % 7.5 Eosinophils % 1.5 Basophils % 0.4 Nucleated RBC % 0 Sodium Potassium Chloride Carbon Dioxide Anion Gap BUN Creatinine Creat Clearance w eGFR POC Glucometer 160 Random Glucose Calcium Phosphorus Magnesium Blood Type Antibody Screen Crossmatch Active Medications Acetaminophen (Tylenol -) 650 mg PO Q4H PRN PRN Reason: FEVER Amino Acids (Prosource No Carb Liquid Pkt) 30 ml PO BID@0800,1730 [facility] Last Admin: 03/11/18 11:18 Dose: 30 ml Artificial Tears (Artificial Tears) 2 drop OU BID [facility] Last Admin: 03/11/18 11:19 Dose: 2 drop Atorvastatin Calcium (Lipitor -) 10 mg GT [facility] Last Admin: 03/10/18 23:44 Dose: Not Given Collagenase (Santyl -) 1 applic TP DAILY [facility] Last Admin: 03/11/18 11:20 Dose: 1 applic Diltiazem HCl (Cardizem Injection -) 10 mg IVPUSH Q6H PRN PRN Reason: TACHYCARDIA Last Admin: 03/02/18 09:45 Dose: 10 mg Docusate Sodium (Colace Liquid -) 100 mg PO DAILY PRN PRN Reason: CONSTIPATION Ferrous Sulfate (Feosol) 300 mg GT DAILY [facility] Last Admin: 03/11/18 11:18 Dose: 300 mg Dextrose (D5w -) 1,000 mls @ 75 mls/hr IV ASDIR [facility] Last Admin: 03/11/18 01:31 Dose: 75 mls/hr Insulin Aspart (Novolog Vial Sliding Scale -) 1 vial SQ [facility]; Protocol Last Admin: 03/11/18 06:00 Dose: Not Given Insulin Detemir (Levemir Vial) 10 units SQ [facility] Last Admin: 03/10/18 23:19 Dose: 10 units Levothyroxine Sodium (Synthroid -) 37.5 mcg PEG DAILY@0700 [facility] Last Admin: 03/11/18 07:28 Dose: Not Given Metoprolol Tartrate (Lopressor -) 25 mg PO BID [facility] Last Admin: 03/11/18 11:19 Dose: 25 mg Non-Formulary Medication (Non-Formulary Med) 1 each GT DAILY [facility] Last Admin: 03/10/18 19:37 Dose: Not Given Nystatin (Nystop Powder -) 1 applic TP BID [facility] Last Admin: 03/11/18 11:20 Dose: 1 applic Oxybutynin Chloride (Ditropan -) 5 mg NGT BID [facility] Last Admin: 03/11/18 11:19 Dose: 5 mg Pantoprazole Sodium (Protonix Packets For Oral Suspension -) 40 mg NGT DAILY [facility] Last Admin: 03/11/18 11:19 Dose: 40 mg Senna (Senna Oral Solution -) 8.8 mg GT HS [facility] Last Admin: 03/10/18 23:49 Dose: Not Given Sertraline HCl (Zoloft -) 50 mg PO DAILY [facility] Last Admin: 03/11/18 11:19 Dose: 50 mg Simethicone (Mylicon Liquid -) 40 mg GT QID PRN PRN Reason: CONSTIPATION Last Admin: 03/07/18 17:08 Dose: 40 mg Tamsulosin HCl (Flomax -) 0.4 mg PO DAILY@0830 [facility] Last Admin: 03/11/18 11:19 Dose: 0.4 mg ASSESSMENT/PLAN: 87 year old male with a PMHx significant for Diastolic heart failure, NIDDM, CKD , and 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 Admitted on 02/17/18 from [facility] for chronic respiratory failure and severe anemia with a hg of 5.5 and hypotension. 1. Multifactorial anemia with UGIB - s/p EGD with Diluefoy lesion - s/p heat probe and epi - s/p 10 units PRBC this hospital stay - Hgb currently trending down, 6.9 this morning, 7.1 on repeat, No signs of Active bleeding - 1 Unit Packed RBC Transfused - GI (Dr. Diaz) Consulted, appreciate recommendations, will resume tube feeds - Abdominal XRay: : Functional PEG tube with tip in stomach. No sign of obstruction or leak - Family concerned for abdominal bloating, Serial abdomen exams, continue to monitor - Hematology consulted, Appreciate recommendations - Continue Ferrous Sulfate 300 mg GT DAILY [facility] 2. Acute on chronic respiratory failure - Due to aspiration PNA that has now improved, patient has returned to baseline vent settings - Not weanable due to poor mental status - Pulmonary (Dr. Perez) consulted, Appreciate recommendations 3. Aspiration PNA - Completed course of Zosyn, Not on any other ABx - ID (Dr. Garza) consulted, Appreciate recommendations 4. Acute Transaminitis - AST/ALT Trending down - Has hx of similar episode on 02/01/18 that self-resolved - Will continue to monitor 5. Acute on CKD - Hypoperfusion - BUN remains elevated, likely due to GI bleed - Cr remains elevated - No longer on steroids - Will continue to monitor - Nephrology consulted, Appreciate recommendations 6. New onset Afib - rate controlled, Continue Metoprolol Tartrate 25 mg PO BID [facility] - Not a candidate for anticoagulation due to recent GI bleed - Cardiology consulted, Appreciate recommendations 7. Hypernatremia - resolved - will continue water flushes and monitor 8. Thrombophilia - stable off medications 9. DM - Improved - Continue Insulin Aspart SQ ACHS [facility] - Continue Insulin Detemir SQ HS [facility] 10. 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 Hypothyroid - Continue Synthroid 37.5 mcg PEG DAILY @ 0700 [facility] 12. Urinary incontinence - Chronic indwelling christopher. cont oxybutin/flomax - Continue Flomax 0.4 mg PO DAILY@0830 [facility] - Continue Oxybutynin Chloride 5 mg BID [facility] 13. Depression - Continue on Sertraline HCl 50 mg PO DAILY [facility] 14. DVT ppx - SCD - Not a candidate for anticoagulation due to recent GI Bleed Visit type - Emergency Visit Emergency Visit: No - New Patient This patient is new to me today: No - Critical Care Critical Care patient: No
--- NOTE | 2018-03-11 13:47 | PN ---
Teaching Attending Note Name of Resident: Erica See ATTENDING PHYSICIAN STATEMENT I saw and evaluated the patient. I reviewed the resident's note and discussed the case with the resident. I agree with the resident's findings and plan as documented with exceptions below. SUBJECTIVE: Patient seen and examined, eyes open, non verbal, unable to assess for ROS. OBJECTIVE: Vital Signs Period Temp Pulse Resp BP Sys/Wills Pulse Ox Last 24 Hr 97.2 F-98.9 F 56-103 14-24 106-122/45-69 99-99 Intake & Output 03/08/18 03/09/18 03/10/18 03/11/18 23:59 23:59 23:59 23:59 Intake Total 2050 1080 975 950 Output Total 825 701 0708 400 Balance 1200 180 -25 550 Weight 163 lb 162 lb 3.2 oz 163 lb General: lying in bed, eyes open, no acute distress Abdomen:Soft, ND, positive bowel sounds, pEG in place, no grimacing on deep palpation Chest: decreased effort but no rales or wheezing Extremities: no edema Home Medications Medication Instructions Recorded Acetaminophen [Tylenol] 650 mg PO Q6H PRN 01/21/18 Bacitracin - [Bacitracin Topical 1 applic TP TID 01/21/18 Ointment -] Baclofen 10 mg GT Q8H 01/21/18 Bals[place] Oil [Venelex 1 applic TP BID 01/21/18 Ointment] Docusate Sodium [Colace -] 100 mg GT ASDIR 01/21/18 Ferrous Sulfate [Feosol] 300 mg GT DAILY 01/21/18 Glycopyrrolate/Formoterol Fum 0 gm IH BID 01/21/18 [Bevespi Aerosphere Inhaler] Heparin - 5,000 unit SQ BID 01/21/18 Hypromellose 0.5% Opth Soln 2 drop OU BID 01/21/18 [Artificial Tears] Insulin Glargine,Hum.rec.anlog 9 units SQ HS 01/21/18 [Lantus Solostar PEN -] Insulin Lispro [Humalog] 0 unit SQ Q6H 01/21/18 L.acidoph,Paracasei, B.lactis 1 each GT DAILY 01/21/18 [Probiotic] Lanolin/Mineral Oil [Eucerin 1 applic TP Q6H 01/21/18 Original Lotion] Levothyroxine Sodium [Synthroid] 37.5 mcg GT BID 01/21/18 Oxybutynin Chloride 5 mg GT BID 01/21/18 Ranitidine [Zantac -] 150 mg GT DAILY 01/21/18 Sertraline HCl [Zoloft] 25 mg GT DAILY 01/21/18 Silver Sulfadiazine 1% Top Cr 1 applic TP DAILY 01/21/18 [Silvadene -] Simethicone 40 mg GT Q6H 01/21/18 Simvastatin 20 mg GT DAILY 01/21/18 Tamsulosin HCl 0.4 mg GT DAILY 01/21/18 Zinc Oxide 1 applic TP BID 01/21/18 Levothyroxine [Synthroid -] 37.5 mcg PEG DAILY@0700 tablet 02/08/18 Sodium Chloride Nasal [place] [Leonardo 2 spray NS TID spray 02/08/18 [place] Nasal [place] -] Aspirin [ASA -] 81 mg PO DAILY #30 tab.chew 02/09/18 Furosemide Oral Solution [Lasix 40 mg GT BID #300 udc 02/09/18 Oral Solution -] Nut.tx.imp.renal Fxn,Lac-Reduc 1,000 ml PO DAILY #1000 ml 02/09/18 [Nepro Carb Steady] Potassium Chloride 40 meq GT DAILY #40 meq 02/09/18 Active Medications Acetaminophen (Tylenol -) 650 mg PO Q4H PRN PRN Reason: FEVER Amino Acids (Prosource No Carb Liquid Pkt) 30 ml PO BID@0800,1730 [facility] Last Admin: 03/11/18 11:18 Dose: 30 ml Artificial Tears (Artificial Tears) 2 drop OU BID [facility] Last Admin: 03/11/18 11:19 Dose: 2 drop Atorvastatin Calcium (Lipitor -) 10 mg GT HS [facility] Last Admin: 03/10/18 23:44 Dose: Not Given Collagenase (Santyl -) 1 applic TP DAILY [facility] Last Admin: 03/11/18 11:20 Dose: 1 applic Diltiazem HCl (Cardizem Injection -) 10 mg IVPUSH Q6H PRN PRN Reason: TACHYCARDIA Last Admin: 03/02/18 09:45 Dose: 10 mg Docusate Sodium (Colace Liquid -) 100 mg PO DAILY PRN PRN Reason: CONSTIPATION Ferrous Sulfate (Feosol) 300 mg GT DAILY [facility] Last Admin: 03/11/18 11:18 Dose: 300 mg Dextrose (D5w -) 1,000 mls @ 75 mls/hr IV ASDIR [facility] Last Admin: 03/11/18 01:31 Dose: 75 mls/hr Insulin Aspart (Novolog Vial Sliding Scale -) 1 vial SQ [facility]; Protocol Last Admin: 03/11/18 06:00 Dose: Not Given Insulin Detemir (Levemir Vial) 10 units SQ [facility] Last Admin: 03/10/18 23:19 Dose: 10 units Levothyroxine Sodium (Synthroid -) 37.5 mcg PEG DAILY@0700 [facility] Last Admin: 03/11/18 07:28 Dose: Not Given Metoprolol Tartrate (Lopressor -) 25 mg PO BID [facility] Last Admin: 03/11/18 11:19 Dose: 25 mg Non-Formulary Medication (Non-Formulary Med) 1 each GT DAILY [facility] Last Admin: 03/10/18 19:37 Dose: Not Given Nystatin (Nystop Powder -) 1 applic TP BID [facility] Last Admin: 03/11/18 11:20 Dose: 1 applic Oxybutynin Chloride (Ditropan -) 5 mg NGT BID [facility] Last Admin: 03/11/18 11:19 Dose: 5 mg Pantoprazole Sodium (Protonix Packets For Oral Suspension -) 40 mg NGT DAILY [facility] Last Admin: 03/11/18 11:19 Dose: 40 mg Senna (Senna Oral Solution -) 8.8 mg GT [facility] Last Admin: 03/10/18 23:49 Dose: Not Given Sertraline HCl (Zoloft -) 50 mg PO DAILY [facility] Last Admin: 03/11/18 11:19 Dose: 50 mg Simethicone (Mylicon Liquid -) 40 mg GT QID PRN PRN Reason: CONSTIPATION Last Admin: 03/07/18 17:08 Dose: 40 mg Tamsulosin HCl (Flomax -) 0.4 mg PO DAILY@0830 [facility] Last Admin: 03/11/18 11:19 Dose: 0.4 mg Laboratory Results - last 24 hr 03/10/18 03/10/18 03/11/18 16:20 23:17 02:45 WBC RBC Hgb Hct MCV MCH MCHC RDW Plt Count MPV Absolute Neuts (auto) Neutrophils % Lymphocytes % Monocytes % Eosinophils % Basophils % Nucleated RBC % Sodium Potassium Chloride Carbon Dioxide Anion Gap BUN Creatinine Creat Clearance w eGFR POC Glucometer 101 156 49 Random Glucose Calcium Phosphorus Magnesium Blood Type Antibody Screen Crossmatch 03/11/18 03/11/18 03/11/18 05:16 06:20 06:20 WBC 4.6 RBC 2.30 L Hgb 6.9 L* Hct 21.2 L MCV 92.1 MCH 30.0 MCHC 32.5 RDW 19.0 H Plt Count 125 L MPV 9.6 Absolute Neuts (auto) 3.4 Neutrophils % 74.8 Lymphocytes % 15.4 Monocytes % 8.0 Eosinophils % 1.3 Basophils % 0.5 Nucleated RBC % 0 Sodium 139 Potassium 4.1 Chloride 105 Carbon Dioxide 25 Anion Gap 9 BUN 85 H Creatinine 1.6 H Creat Clearance w eGFR 41.29 POC Glucometer 93 Random Glucose 95 Calcium 7.6 L Phosphorus 4.1 Magnesium 1.9 Blood Type Antibody Screen Crossmatch 03/11/18 03/11/18 03/11/18 08:50 09:10 09:50 WBC 4.5 RBC 2.39 L Hgb 7.1 L Hct 21.9 L MCV 91.5 MCH 29.6 MCHC 32.4 RDW 18.8 H Plt Count 132 L MPV 9.8 Absolute Neuts (auto) 3.2 Neutrophils % 71.4 Lymphocytes % 19.2 D Monocytes % 7.5 Eosinophils % 1.5 Basophils % 0.4 Nucleated RBC % 0 Sodium Potassium Chloride Carbon Dioxide Anion Gap BUN Creatinine Creat Clearance w eGFR POC Glucometer 160 Random Glucose Calcium Phosphorus Magnesium Blood Type O POSITIVE Antibody Screen Negative Crossmatch See Detail Microbiology 02/17/18 03:00 Blood - Peripheral Venous Blood Culture - Final NO GROWTH AFTER 5 DAYS INCUBATION 02/17/18 03:00 Blood - Peripheral Venous Blood Culture - Final NO GROWTH AFTER 5 DAYS INCUBATION 02/17/18 10:40 Sputum - Endotrachea Suction/Ventilator Gram Stain - Final 02/17/18 10:40 Sputum - Endotrachea Suction/Ventilator Sputum Culture - Final Pseudomonas Aeruginosa Pseudo Fluorescens/[place] 02/16/18 23:40 Urine - Urine Clean Catch Urine Culture - Final NO GROWTH OBTAINED Abdominal xray results noted ASSESSMENT AND PLAN: 87 year old male with a significant past medical history of diastolic heart failure, NIDDM, CKD, and 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 Admitted on 02/17/18 from [facility] chronic respiratory failure and severe anemia with a hg of 5.5 and hypotension. -PEG dislodgement on s/p replacement -Acute Upper GI bleed from [place] lesion -Acute blood loss anemia s/p 7 units PRBCs -Acute on chronic vent dependent respiratory failure, likely aspiration PNA. 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 hemodynamics stable, no gross evidence of bleed or hemodynamic instability. Discussed with Dr. Diaz, monitor for now and continue PPI/ carafate. Transfuse 1 unit pRBC. Avoid frequent blood draws. s/p PEG replacement. Abdominal xray results reviewed. Discussed with Dr. Diaz, ok to resume feeds. d/c D5 once feeds started and change ISS to q6h. s/p 15 days of zosyn. S/p bactrim, off abx, ID input appreciated. At prior vent settings renal function continues to improve, renal input appreciated. DVTPPX with SCDs dispo pending clinical improvement. Plan discussed with nursing, Dr. Diaz and Dr. Garza. Total care time spent 40 min.
[2018-03-11] MEDS: NON-FORMULARY MED GT SCH (17:19)
[2018-03-11] MEDS ORDERED: INSULIN (NOVOLOG) ASPART 100 UNITS/ML 10ML VIAL ONE (20:55)
[2018-03-11] MEDS: ATORVASTATIN CA 10 MG TABLET (FP) GT SCH (21:04)
[2018-03-11] MEDS: INSULIN (LEVEMIR) 100 UNITS/ML UNITS SQ SCH (21:04)
[2018-03-11] MEDS: SENNOSIDES 8.8 MG/5 ML BULK BOTTLE GT SCH (21:07)
[2018-03-12] MEDS: LEVOTHYROXINE NA 25 MCG TABLET (FP) PEG SCH (06:26)
[2018-03-12] MEDS: INSULIN SLIDING SCALE (NOVOLOG) 1 VIAL SQ SCH ×4 (06:27→23:03)
[2018-03-12 06:42] LABS: BASO % 0.4 % (0-2.0); EOS % 2.2 % (0-4.5); HEMATOCRIT 27.9 % (35.4-49); HEMOGLOBIN 9.3 GM/dL (11.7-16.9); LYMPH % 27.2 % (8-40); MCH 29.8 pg (25.7-33.7); MCHC 33.3 g/dl (32.0-35.9); MEAN CELL VOLUME 89.6 fl (80-96); MEAN PLT VOLUME 9.4 fl (7.5-11.1); MONO % 7.9 % (3.8-10.2); NEUT % 62.3 % (42.8-82.8); PLATELET COUNT 198 K/MM3 (134-434); RBC 3.11 M/mm3 (4.00-5.60); RDW 18.2 % (11.9-15.9); WHITE BLOOD COUNT 8.5 K/mm3 (4.0-10.0)
[2018-03-12] MEDS: PANTOPRAZOLE SOD 40 MG SUSPENSION PACKET NGT SCH (09:14)
[2018-03-12] MEDS: AMINO ACIDS/PROTEIN HYDROLYS 30 ML LIQUID.PKT PO SCH ×2 (09:14→18:06)
[2018-03-12] MEDS: OXYBUTYNIN CHLORIDE 5 MG TABLET NGT SCH ×2 (09:14→22:57)
[2018-03-12] MEDS: METOPROLOL TARTRATE 25 MG TABLET (FP) PO SCH ×2 (09:14→22:57)
[2018-03-12] MEDS: SERTRALINE HCL 25 MG TABLET (FP) PO SCH (09:14)
[2018-03-12] MEDS: FERROUS SO4 300 MG/5 ML ORAL SOLN UNIT DOSE CUPS GT SCH (09:14)
[2018-03-12] MEDS: NYSTATIN POWDER 100,000 UNITS/GM - 15 GM TOPICAL POWDER TP SCH ×2 (09:15→22:59)
[2018-03-12] MEDS ORDERED: PT OWN MED DRAWER 7, Y5N ONE ×3 (09:17→22:54)
[2018-03-12] MEDS: ARTIFICIAL TEARS (POLYVINYL ALCOHOL 1.4%) OPTH DROPS OU SCH ×2 (09:18→22:57)
[2018-03-12] MEDS: NON-FORMULARY MED GT SCH (09:22)
--- NOTE | 2018-03-12 11:20 | PN ---
Progress Note, Physician History of Present Illness: awake alert comfortable on vent non verbal - Current Medication List Current Medications: Active Medications Acetaminophen (Tylenol -) 650 mg PO Q4H PRN PRN Reason: FEVER Amino Acids (Prosource No Carb Liquid Pkt) 30 ml PO BID@0800,1730 [facility] Last Admin: 03/12/18 09:14 Dose: 30 ml Artificial Tears (Artificial Tears) 2 drop OU BID [facility] Last Admin: 03/12/18 09:18 Dose: 2 drop Atorvastatin Calcium (Lipitor -) 10 mg GT HS [facility] Last Admin: 03/11/18 21:04 Dose: 10 mg Collagenase (Santyl -) 1 applic TP DAILY [facility] Last Admin: 03/11/18 11:20 Dose: 1 applic Diltiazem HCl (Cardizem Injection -) 10 mg IVPUSH Q6H PRN PRN Reason: TACHYCARDIA Last Admin: 03/02/18 09:45 Dose: 10 mg Docusate Sodium (Colace Liquid -) 100 mg PO DAILY PRN PRN Reason: CONSTIPATION Ferrous Sulfate (Feosol) 300 mg GT DAILY [facility] Last Admin: 03/12/18 09:14 Dose: 300 mg Insulin Aspart (Novolog Vial Sliding Scale -) 1 vial SQ [facility]; Protocol Last Admin: 03/12/18 06:27 Dose: Not Given Levothyroxine Sodium (Synthroid -) 37.5 mcg PEG DAILY@0700 [facility] Last Admin: 03/12/18 06:26 Dose: 37.5 mcg Metoprolol Tartrate (Lopressor -) 25 mg PO BID [facility] Last Admin: 03/12/18 09:14 Dose: 25 mg Non-Formulary Medication (Non-Formulary Med) 1 each GT DAILY [facility] Last Admin: 03/12/18 09:22 Dose: 1 each Nystatin (Nystop Powder -) 1 applic TP BID [facility] Last Admin: 03/12/18 09:15 Dose: 1 applic Oxybutynin Chloride (Ditropan -) 5 mg NGT BID [facility] Last Admin: 03/12/18 09:14 Dose: 5 mg Pantoprazole Sodium (Protonix Packets For Oral Suspension -) 40 mg NGT DAILY [facility] Last Admin: 03/12/18 09:14 Dose: 40 mg Senna (Senna Oral Solution -) 8.8 mg GT HS [facility] Last Admin: 03/11/18 21:07 Dose: Not Given Sertraline HCl (Zoloft -) 50 mg PO DAILY [facility] Last Admin: 03/12/18 09:14 Dose: 50 mg Simethicone (Mylicon Liquid -) 40 mg GT QID PRN PRN Reason: CONSTIPATION Last Admin: 03/07/18 17:08 Dose: 40 mg Tamsulosin HCl (Flomax -) 0.4 mg PO DAILY@0830 [facility] Last Admin: 03/11/18 11:19 Dose: 0.4 mg - Objective Vital Signs: Vital Signs Temperature 97.4 F L 03/12/18 04:00 Pulse Rate 75 03/12/18 04:00 Respiratory Rate 17 03/12/18 10:15 Blood Pressure 130/64 03/12/18 04:00 O2 Sat by Pulse Oximetry (%) 100 03/11/18 21:00 Constitutional: Yes: No Distress, Calm Cardiovascular: Yes: Pulse Irregular Respiratory: Yes: Mechanically Ventilated Gastrointestinal: Yes: Normal Bowel Sounds, Soft, Other (peg) Neurological: Yes: Other Labs: CBC, BMP 03/12/18 06:00 03/11/18 06:20 INR, PTT INR 1.13 (0.82-1.09) 02/16/18 22:40 Assessment/Plan Problem List - Problems (1) Anemia Code(s): D64.9 - ANEMIA, UNSPECIFIED (2) Chronic kidney disease, stage 3 Code(s): N18.3 - CHRONIC KIDNEY DISEASE, STAGE 3 (MODERATE) (3) Chronic respiratory failure Code(s): J96.10 - CHRONIC RESPIRATORY FAILURE, UNSP W HYPOXIA OR HYPERCAPNIA Qualifiers: Respiratory failure complication: unspecified whether with hypoxia or hypercapnia Qualified Code(s): J96.10 - Chronic respiratory failure, unspecified whether with hypoxia or hypercapnia (4) PAF (paroxysmal atrial fibrillation) Code(s): I48.0 - PAROXYSMAL ATRIAL FIBRILLATION (5) Renal failure Code(s): N19 - UNSPECIFIED KIDNEY FAILURE Qualifiers: Renal failure chronicity: unspecified chronicity Qualified Code(s): N19 - Unspecified kidney failure (6) Diabetes Code(s): E11.9 - TYPE 2 DIABETES MELLITUS WITHOUT COMPLICATIONS (7) TBI (traumatic brain injury) Code(s): S06.9X9A - UNSP INTRACRANIAL INJURY W LOC OF UNSP DURATION, INIT (8) Awypq-fo-jhlkfqs kidney injury Code(s): N17.9 - ACUTE KIDNEY FAILURE, UNSPECIFIED; N18.9 - CHRONIC KIDNEY DISEASE, UNSPECIFIED (9) Axfag-xe-vizatix renal failure Code(s): N17.9 - ACUTE KIDNEY FAILURE, UNSPECIFIED; N18.9 - CHRONIC KIDNEY DISEASE, UNSPECIFIED (10) Hypotension Code(s): I95.9 - HYPOTENSION, UNSPECIFIED (11) Hypotension Code(s): I95.9 - HYPOTENSION, UNSPECIFIED 12 gi bleed 13 difuleoy lesion 14 rash I plan continue to monitor off of abx nutrition rest as per primary care as per pul suctioning if needed final plan awaited
--- NOTE | 2018-03-12 13:46 | PN ---
Progress Note, Physician History of Present Illness: 87M w/ pmh of traumatic fall (s/p neck (C4,5, and 6)/back surgery, tracheotomy placement now ventilator dependent, and PEG tube placement), frequent pneumonia , emphysema, A-fib, CHF, DM, dementia, renal failure, nonverbal TBI, paraplegia , and legal blindness and deafness, who presents to the emergency department via EMS [facility] with 3 days of hypotension. As per patients son , his blood pressure has been decreasing over the past few days. He reports that at baseline, his systolic is between 110-119 in the mornings and between 100-109 at night. Pt has failed 5 weaning trials in the last few days, and it was noticed that there was blood around the tracheostomy site when suctioning. Pt' son denies recent fevers, chills, chest pain, emesis, hematemesis, melena, and hematochezia in pt. - Current Medication List Current Medications: Active Medications Acetaminophen (Tylenol -) 650 mg PO Q4H PRN PRN Reason: FEVER Amino Acids (Prosource No Carb Liquid Pkt) 30 ml PO BID@0800,1730 [facility] Last Admin: 03/12/18 09:14 Dose: 30 ml Artificial Tears (Artificial Tears) 2 drop OU BID [facility] Last Admin: 03/12/18 09:18 Dose: 2 drop Atorvastatin Calcium (Lipitor -) 10 mg GT HS [facility] Last Admin: 03/11/18 21:04 Dose: 10 mg Collagenase (Santyl -) 1 applic TP DAILY [facility] Last Admin: 03/11/18 11:20 Dose: 1 applic Diltiazem HCl (Cardizem Injection -) 10 mg IVPUSH Q6H PRN PRN Reason: TACHYCARDIA Last Admin: 03/02/18 09:45 Dose: 10 mg Docusate Sodium (Colace Liquid -) 100 mg PO DAILY PRN PRN Reason: CONSTIPATION Ferrous Sulfate (Feosol) 300 mg GT DAILY [facility] Last Admin: 03/12/18 09:14 Dose: 300 mg Insulin Aspart (Novolog Vial Sliding Scale -) 1 vial SQ [facility]; Protocol Last Admin: 03/12/18 11:28 Dose: Not Given Levothyroxine Sodium (Synthroid -) 37.5 mcg PEG DAILY@0700 [facility] Last Admin: 03/12/18 06:26 Dose: 37.5 mcg Metoprolol Tartrate (Lopressor -) 25 mg PO BID [facility] Last Admin: 03/12/18 09:14 Dose: 25 mg Non-Formulary Medication (Non-Formulary Med) 1 each GT DAILY [facility] Last Admin: 03/12/18 09:22 Dose: 1 each Nystatin (Nystop Powder -) 1 applic TP BID [facility] Last Admin: 03/12/18 09:15 Dose: 1 applic Oxybutynin Chloride (Ditropan -) 5 mg NGT BID [facility] Last Admin: 03/12/18 09:14 Dose: 5 mg Pantoprazole Sodium (Protonix Packets For Oral Suspension -) 40 mg NGT DAILY [facility] Last Admin: 03/12/18 09:14 Dose: 40 mg Senna (Senna Oral Solution -) 8.8 mg GT HS [facility] Last Admin: 03/11/18 21:07 Dose: Not Given Sertraline HCl (Zoloft -) 50 mg PO DAILY [facility] Last Admin: 03/12/18 09:14 Dose: 50 mg Simethicone (Mylicon Liquid -) 40 mg GT QID PRN PRN Reason: CONSTIPATION Last Admin: 03/07/18 17:08 Dose: 40 mg Tamsulosin HCl (Flomax -) 0.4 mg PO DAILY@0830 [facility] Last Admin: 03/11/18 11:19 Dose: 0.4 mg - Objective Vital Signs: Vital Signs Temperature 98.3 F 03/12/18 08:00 Pulse Rate 66 03/12/18 08:00 Respiratory Rate 17 03/12/18 10:15 Blood Pressure 121/55 03/12/18 08:00 O2 Sat by Pulse Oximetry (%) 100 03/11/18 21:00 Eyes: Yes: WNL, Conjunctiva Clear, EOM Intact HENT: Yes: WNL, Atraumatic, Normocephalic Neck: Yes: WNL, Supple, Trachea Midline Cardiovascular: Yes: WNL, Regular Rate and Rhythm Respiratory: Yes: Mechanically Ventilated Gastrointestinal: Yes: WNL, Normal Bowel Sounds Genitourinary: Yes: WNL Musculoskeletal: Yes: WNL Extremities: Yes: WNL Edema: No Integumentary: Yes: WNL ...Motor Strength: WNL Psychiatric: Yes: WNL Labs: CBC, BMP 03/12/18 06:00 03/11/18 06:20 INR, PTT INR 1.13 (0.82-1.09) 02/16/18 22:40 Assessment/Plan - Problems (1) Anemia Assessment/Plan: s/p EGD, cauterization, and PRBCs. Maintain hydration. F/u BUn/Cr, Hb (8.5-->7.4). Code(s): D64.9 - ANEMIA, UNSPECIFIED Qualifiers: Anemia type: due to chronic kidney disease Chronic kidney disease stage: unspecified stage Qualified Code(s): N18.9 - Chronic kidney disease, unspecified; D63.1 - Anemia in chronic kidney disease (2) Chronic kidney disease, stage 3 Assessment/Plan: f/u with players assistant; Improving BUN/Cr since GI cauterization. Code(s): N18.3 - CHRONIC KIDNEY DISEASE, STAGE 3 (MODERATE) (3) Chronic respiratory failure Assessment/Plan: Ventilator dependent; on trach. Code(s): J96.10 - CHRONIC RESPIRATORY FAILURE, UNSP W HYPOXIA OR HYPERCAPNIA Qualifiers: Respiratory failure complication: unspecified whether with hypoxia or hypercapnia Qualified Code(s): J96.10 - Chronic respiratory failure, unspecified whether with hypoxia or hypercapnia (4) Hematuria Code(s): R31.9 - HEMATURIA, UNSPECIFIED (5) PAF (paroxysmal atrial fibrillation) Assessment/Plan: EKG 02/23/18: AF with RVR (HR 150 bpm); now has HR in 80s bpm. Increased metoprolol to 25 mg bid (pt has required occasional IV diltiazem for rapid VR); f/u HR and BP, and increase metoprolol as tolerated. If pt becomes profoundly bradycardia, will have to consider PPM. anticoagulation held due to GI bleed. TSH 3.59 recently. Code(s): I48.0 - PAROXYSMAL ATRIAL FIBRILLATION (6) S/P percutaneous endoscopic gastrostomy (PEG) tube placement Assessment/Plan: site appears intact Code(s): Z93.1 - GASTROSTOMY STATUS (7) Acute on chronic diastolic CHF (congestive heart failure) Code(s): I50.33 - ACUTE ON CHRONIC DIASTOLIC (CONGESTIVE) HEART FAILURE (8) Sinus bradycardia Code(s): R00.1 - BRADYCARDIA, UNSPECIFIED (9) TBI (traumatic brain injury) Code(s): S06.9X9A - UNSP INTRACRANIAL INJURY W LOC OF UNSP DURATION, INIT Qualifiers: Encounter type: sequela Loss of consciousness presence/duration: with LOC of unspecified duration Qualified Code(s): S06.9X9S - Unspecified intracranial injury with loss of consciousness of unspecified duration, sequela (10) Severe mitral regurgitation Code(s): I34.0 - NONRHEUMATIC MITRAL (VALVE) INSUFFICIENCY (11) Hypokalemia Assessment/Plan: Keep K+ 4-4.5 (4.8 today). F/u Mg, and keep 2-2.3 Keep PO4 2.5-3.5 Code(s): E87.6 - HYPOKALEMIA (12) Hypoalbuminemia Code(s): E88.09 - OTH DISORDERS OF PLASMA-PROTEIN METABOLISM, NEC
[2018-03-12] MEDS: COLLAGENASE CLOSTRIDIUM HIST. 30 GRAMS TUBE TP SCH (14:39)
--- NOTE | 2018-03-12 15:51 | PN ---
Progress Note, Physician History of Present Illness: pulmonary awake,alert,comfortable on vent support ac mode - Current Medication List Current Medications: Active Medications Acetaminophen (Tylenol -) 650 mg PO Q4H PRN PRN Reason: FEVER Amino Acids (Prosource No Carb Liquid Pkt) 30 ml PO BID@0800,1730 [facility] Last Admin: 03/12/18 09:14 Dose: 30 ml Artificial Tears (Artificial Tears) 2 drop OU BID [facility] Last Admin: 03/12/18 09:18 Dose: 2 drop Atorvastatin Calcium (Lipitor -) 10 mg GT HS [facility] Last Admin: 03/11/18 21:04 Dose: 10 mg Collagenase (Santyl -) 1 applic TP DAILY [facility] Last Admin: 03/12/18 14:39 Dose: 1 applic Diltiazem HCl (Cardizem Injection -) 10 mg IVPUSH Q6H PRN PRN Reason: TACHYCARDIA Last Admin: 03/02/18 09:45 Dose: 10 mg Docusate Sodium (Colace Liquid -) 100 mg PO DAILY PRN PRN Reason: CONSTIPATION Ferrous Sulfate (Feosol) 300 mg GT DAILY [facility] Last Admin: 03/12/18 09:14 Dose: 300 mg Insulin Aspart (Novolog Vial Sliding Scale -) 1 vial SQ [facility]; Protocol Last Admin: 03/12/18 11:28 Dose: Not Given Levothyroxine Sodium (Synthroid -) 37.5 mcg PEG DAILY@0700 [facility] Last Admin: 03/12/18 06:26 Dose: 37.5 mcg Metoprolol Tartrate (Lopressor -) 25 mg PO BID [facility] Last Admin: 03/12/18 09:14 Dose: 25 mg Non-Formulary Medication (Non-Formulary Med) 1 each GT DAILY [facility] Last Admin: 03/12/18 09:22 Dose: 1 each Nystatin (Nystop Powder -) 1 applic TP BID [facility] Last Admin: 03/12/18 09:15 Dose: 1 applic Oxybutynin Chloride (Ditropan -) 5 mg NGT BID [facility] Last Admin: 03/12/18 09:14 Dose: 5 mg Pantoprazole Sodium (Protonix Packets For Oral Suspension -) 40 mg NGT DAILY [facility] Last Admin: 03/12/18 09:14 Dose: 40 mg Senna (Senna Oral Solution -) 8.8 mg GT HS [facility] Last Admin: 03/11/18 21:07 Dose: Not Given Sertraline HCl (Zoloft -) 50 mg PO DAILY [facility] Last Admin: 03/12/18 09:14 Dose: 50 mg Simethicone (Mylicon Liquid -) 40 mg GT QID PRN PRN Reason: CONSTIPATION Last Admin: 03/07/18 17:08 Dose: 40 mg Tamsulosin HCl (Flomax -) 0.4 mg PO DAILY@0830 [facility] Last Admin: 03/11/18 11:19 Dose: 0.4 mg - Objective Vital Signs: Vital Signs Temperature 98.9 F 03/12/18 15:33 Pulse Rate 52 L 03/12/18 15:33 Respiratory Rate 18 03/12/18 15:33 Blood Pressure 124/63 03/12/18 15:33 O2 Sat by Pulse Oximetry (%) 98 03/12/18 09:00 Constitutional: Yes: Well Nourished, Calm Eyes: Yes: WNL HENT: Yes: WNL Neck: Yes: Supple (trach) Cardiovascular: Yes: Pulse Irregular, S1, S2 Respiratory: Yes: Rhonchi (few rhonchi) Gastrointestinal: Yes: Soft, Other (peg) Extremities: Yes: WNL Edema: No Labs: CBC, BMP 03/12/18 06:00 - ....Imaging Ultrasound: Other (duplex rue -dvt) Problem List - Problems (1) Anemia Code(s): D64.9 - ANEMIA, UNSPECIFIED (2) Chronic kidney disease, stage 3 Code(s): N18.3 - CHRONIC KIDNEY DISEASE, STAGE 3 (MODERATE) (3) Chronic respiratory failure Code(s): J96.10 - CHRONIC RESPIRATORY FAILURE, UNSP W HYPOXIA OR HYPERCAPNIA Qualifiers: Respiratory failure complication: unspecified whether with hypoxia or hypercapnia Qualified Code(s): J96.10 - Chronic respiratory failure, unspecified whether with hypoxia or hypercapnia (4) PAF (paroxysmal atrial fibrillation) Code(s): I48.0 - PAROXYSMAL ATRIAL FIBRILLATION (5) Renal failure Code(s): N19 - UNSPECIFIED KIDNEY FAILURE Qualifiers: Renal failure chronicity: unspecified chronicity Qualified Code(s): N19 - Unspecified kidney failure (6) Diabetes Code(s): E11.9 - TYPE 2 DIABETES MELLITUS WITHOUT COMPLICATIONS Qualifiers: Diabetes mellitus type: type 2 Diabetes mellitus jail insulin use: 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 insulin use status Diabetes mellitus complication status : with kidney complications Diabetes mellitus complication detail: with chronic kidney disease Chronic kidney disease stage: stage 3 (moderate) Qualified Code(s): E11.22 - Type 2 diabetes mellitus with diabetic chronic kidney disease; N18.3 - Chronic kidney disease, stage 3 (moderate) (7) TBI (traumatic brain injury) Code(s): S06.9X9A - UNSP INTRACRANIAL INJURY W LOC OF UNSP DURATION, INIT Qualifiers: Encounter type: sequela Loss of consciousness presence/duration: with LOC of unspecified duration Qualified Code(s): S06.9X9S - Unspecified intracranial injury with loss of consciousness of unspecified duration, sequela (8) Bfzuc-aj-oksisil kidney injury Code(s): N17.9 - ACUTE KIDNEY FAILURE, UNSPECIFIED; N18.9 - CHRONIC KIDNEY DISEASE, UNSPECIFIED (9) Ylivy-vc-cfahgct renal failure Code(s): N17.9 - ACUTE KIDNEY FAILURE, UNSPECIFIED; N18.9 - CHRONIC KIDNEY DISEASE, UNSPECIFIED Qualifiers: Acute renal failure type: unspecified Chronic kidney disease stage: stage 3 (moderate) Qualified Code(s): N17.9 - Acute kidney failure, unspecified; N18.3 - Chronic kidney disease, stage 3 (moderate) (10) Hypotension Code(s): I95.9 - HYPOTENSION, UNSPECIFIED (11) Hypotension Code(s): I95.9 - HYPOTENSION, UNSPECIFIED Assessment/Plan ASSESSMENT AND PLAN: GI Bleed/Gastric Dieulafoy Lesion s/p EGD/epi/cautery Acute Blood Loss Anemia Chronic Respiratory Failure Pneumonia h/o Traumatic Brain Injury Functional Quadriplegia Acute on Chronic Renal Failure Atrial Fibrillation DM Dementia Elevated LFTs - monitor H/H - protonix - rate control - holding anticoagulation - volume assist control - enteral feeds as tolerated - DVT/GI prophylaxis - monitor LFTs DR FORMAN
[2018-03-12] MEDS: TAMSULOSIN HCL 0.4 MG CAP.ER.24H (FP) PO SCH (18:05)
--- NOTE | 2018-03-12 18:11 | PN ---
Teaching Attending Note Name of Resident: Erica See ATTENDING PHYSICIAN STATEMENT I saw and evaluated the patient. I reviewed the resident's note and discussed the case with the resident. I agree with the resident's findings and plan as documented with exceptions below. SUBJECTIVE: Patient seen and examined. opens eyes to voice, non verbal, unable to assess for ROS. OBJECTIVE: Vital Signs Period Temp Pulse Resp BP Sys/Wills Pulse Ox Last 24 Hr 97.4 F-98.9 F 52-75 14-23 112-130/55-80 98-100 Intake & Output 03/09/18 03/10/18 03/11/18 03/12/18 23:59 23:59 23:59 23:59 Intake Total 1385 923 5669 1100 Output Total 900 1000 1100 1100 Balance 180 -25 1450 0 Weight 163 lb 162 lb 3.2 oz 163 lb 163 lb 0.6 oz General: lying in bed, no acute distress Chest: decreased effort, no rales or wheezing appreciated Abdomen:soft, ND, positive bowel sounds, PEG in place Extermities: no edema Home Medications Medication Instructions Recorded Acetaminophen [Tylenol] 650 mg PO Q6H PRN 01/21/18 Bacitracin - [Bacitracin Topical 1 applic TP TID 01/21/18 Ointment -] Baclofen 10 mg GT Q8H 01/21/18 Balsam [place] Oil [Venelex 1 applic TP BID 01/21/18 Ointment] Docusate Sodium [Colace -] 100 mg GT ASDIR 01/21/18 Ferrous Sulfate [Feosol] 300 mg GT DAILY 01/21/18 Glycopyrrolate/Formoterol Fum 0 gm IH BID 01/21/18 [Bevespi Aerosphere Inhaler] Heparin - 5,000 unit SQ BID 01/21/18 Hypromellose 0.5% Opth Soln 2 drop OU BID 01/21/18 [Artificial Tears] Insulin Glargine,Hum.rec.anlog 9 units SQ HS 01/21/18 [Lantus Solostar PEN -] Insulin Lispro [Humalog] 0 unit SQ Q6H 01/21/18 L.acidoph,Paracasei, B.lactis 1 each GT DAILY 01/21/18 [Probiotic] Lanolin/Mineral Oil [Eucerin 1 applic TP Q6H 01/21/18 Original Lotion] Levothyroxine Sodium [Synthroid] 37.5 mcg GT BID 01/21/18 Oxybutynin Chloride 5 mg GT BID 01/21/18 Ranitidine [Zantac -] 150 mg GT DAILY 01/21/18 Sertraline HCl [Zoloft] 25 mg GT DAILY 01/21/18 Silver Sulfadiazine 1% Top Cr 1 applic TP DAILY 01/21/18 [Silvadene -] Simethicone 40 mg GT Q6H 01/21/18 Simvastatin 20 mg GT DAILY 01/21/18 Tamsulosin HCl 0.4 mg GT DAILY 01/21/18 Zinc Oxide 1 applic TP BID 01/21/18 Levothyroxine [Synthroid -] 37.5 mcg PEG DAILY@0700 tablet 02/08/18 Sodium Chloride Nasal [place] [[place] 2 spray NS TID spray 02/08/18 [place] Nasal [place] -] Aspirin [ASA -] 81 mg PO DAILY #30 tab.chew 02/09/18 Furosemide Oral Solution [Lasix 40 mg GT BID #300 udc 02/09/18 Oral Solution -] Nut.tx.imp.renal Fxn,Lac-Reduc 1,000 ml PO DAILY #1000 ml 02/09/18 [Nepro Carb Steady] Potassium Chloride 40 meq GT DAILY #40 meq 02/09/18 Active Medications Acetaminophen (Tylenol -) 650 mg PO Q4H PRN PRN Reason: FEVER Amino Acids (Prosource No Carb Liquid Pkt) 30 ml PO BID@0800,1730 [facility] Last Admin: 03/12/18 18:06 Dose: 30 ml Artificial Tears (Artificial Tears) 2 drop OU BID [facility] Last Admin: 03/12/18 09:18 Dose: 2 drop Atorvastatin Calcium (Lipitor -) 10 mg GT HS [facility] Last Admin: 03/11/18 21:04 Dose: 10 mg Collagenase (Santyl -) 1 applic TP DAILY [facility] Last Admin: 03/12/18 14:39 Dose: 1 applic Diltiazem HCl (Cardizem Injection -) 10 mg IVPUSH Q6H PRN PRN Reason: TACHYCARDIA Last Admin: 03/02/18 09:45 Dose: 10 mg Docusate Sodium (Colace Liquid -) 100 mg PO DAILY PRN PRN Reason: CONSTIPATION Ferrous Sulfate (Feosol) 300 mg GT DAILY [facility] Last Admin: 03/12/18 09:14 Dose: 300 mg Insulin Aspart (Novolog Vial Sliding Scale -) 1 vial SQ ACHS [facility]; Protocol Last Admin: 03/12/18 17:12 Dose: 2 units Levothyroxine Sodium (Synthroid -) 37.5 mcg PEG DAILY@0700 [facility] Last Admin: 03/12/18 06:26 Dose: 37.5 mcg Metoprolol Tartrate (Lopressor -) 25 mg PO BID [facility] Last Admin: 03/12/18 09:14 Dose: 25 mg Non-Formulary Medication (Non-Formulary Med) 1 each GT DAILY [facility] Last Admin: 03/12/18 09:22 Dose: 1 each Nystatin (Nystop Powder -) 1 applic TP BID [facility] Last Admin: 03/12/18 09:15 Dose: 1 applic Oxybutynin Chloride (Ditropan -) 5 mg NGT BID [facility] Last Admin: 03/12/18 09:14 Dose: 5 mg Pantoprazole Sodium (Protonix Packets For Oral Suspension -) 40 mg NGT DAILY [facility] Last Admin: 03/12/18 09:14 Dose: 40 mg Senna (Senna Oral Solution -) 8.8 mg GT HS [facility] Last Admin: 03/11/18 21:07 Dose: Not Given Sertraline HCl (Zoloft -) 50 mg PO DAILY [facility] Last Admin: 03/12/18 09:14 Dose: 50 mg Simethicone (Mylicon Liquid -) 40 mg GT QID PRN PRN Reason: CONSTIPATION Last Admin: 03/07/18 17:08 Dose: 40 mg Tamsulosin HCl (Flomax -) 0.4 mg PO DAILY@0830 [facility] Last Admin: 03/12/18 18:05 Dose: Not Given Laboratory Results - last 24 hr 03/11/18 03/12/18 03/12/18 20:41 00:53 06:00 WBC 8.5 RBC 3.11 L Hgb 9.3 L Hct 27.9 L D MCV 89.6 MCH 29.8 MCHC 33.3 RDW 18.2 H Plt Count 198 D MPV 9.4 Absolute Neuts (auto) 5.3 Neutrophils % 62.3 Lymphocytes % 27.2 D Monocytes % 7.9 Eosinophils % 2.2 Basophils % 0.4 Nucleated RBC % 0 POC Glucometer 158 106 03/12/18 03/12/18 03/12/18 06:17 06:55 11:17 WBC RBC Hgb Hct MCV MCH MCHC RDW Plt Count MPV Absolute Neuts (auto) Neutrophils % Lymphocytes % Monocytes % Eosinophils % Basophils % Nucleated RBC % POC Glucometer 48 70 114 03/12/18 17:11 WBC RBC Hgb Hct MCV MCH MCHC RDW Plt Count MPV Absolute Neuts (auto) Neutrophils % Lymphocytes % Monocytes % Eosinophils % Basophils % Nucleated RBC % POC Glucometer 152 Microbiology 02/17/18 03:00 Blood - Peripheral Venous Blood Culture - Final NO GROWTH AFTER 5 DAYS INCUBATION 02/17/18 03:00 Blood - Peripheral Venous Blood Culture - Final NO GROWTH AFTER 5 DAYS INCUBATION 02/17/18 10:40 Sputum - Endotrachea Suction/Ventilator Gram Stain - Final 02/17/18 10:40 Sputum - Endotrachea Suction/Ventilator Sputum Culture - Final Pseudomonas Aeruginosa Pseudo Fluorescens/[place] 02/16/18 23:40 Urine - Urine Clean Catch Urine Culture - Final NO GROWTH OBTAINED ASSESSMENT AND PLAN: 87 year old male with a significant past medical history of diastolic heart failure, NIDDM, CKD, and 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 Admitted on 02/17/18 from [facility] chronic respiratory failure and severe anemia with a hg of 5.5 and hypotension. -PEG dislodgement on s/p replacement -Acute Upper GI bleed from Dileufoy lesion -Acute blood loss anemia s/p 7 units PRBCs -Acute on chronic vent dependent respiratory failure, likely aspiration PNA. 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 hemodynamics stable, no gross evidence of bleed or hemodynamic instability. Appropriate response to PRBC. Discussed with Dr. Diaz, monitor for now and continue PPI/carafate. s/p 1 unit PRBC 03/11. Avoid frequent blood draws. s/p PEG replacement. Abdominal xray results reviewed. Feeds resumed, tolerating well. Recurrent AM hypoglycemia, D/c levemir for now. Continue ISS and glucerna. s/p 15 days of zosyn. S/p bactrim, off abx, ID input appreciated. At prior vent settings renal function continues to improve, renal input appreciated. DVTPPX with SCDs dispo pending to SNR in 48 hours if no new concerns and SNF arrangements made.
--- NOTE | 2018-03-12 19:20 | PN ---
Physical Exam: SUBJECTIVE: Patient seen and examined resting comfortably on bed. Patient today was much more responsive to verbal command, shifting his eyes towards me when his name was called. OBJECTIVE: Vital Signs Period Temp Pulse Resp BP Sys/Wills Pulse Ox Last 24 Hr 97.4 F-98.9 F 52-75 14-23 112-130/55-80 98-100 GENERAL: Resting comfortably, Nonverbal but easily awakens LUNGS: Mechanical Breath sounds anteriorly, decreased effort noted HEART: Regular rate and rhythm, S1, S2 without murmur, rub or gallop. ABDOMEN: Soft, normoactive bowel sounds, PEG tube present without bleeding, drainage : Christopher catheter present NEUROLOGICAL: Upper extremities contracted b/l Laboratory Results - last 24 hr 03/11/18 03/12/18 03/12/18 20:41 00:53 06:00 WBC 8.5 RBC 3.11 L Hgb 9.3 L Hct 27.9 L D MCV 89.6 MCH 29.8 MCHC 33.3 RDW 18.2 H Plt Count 198 D MPV 9.4 Absolute Neuts (auto) 5.3 Neutrophils % 62.3 Lymphocytes % 27.2 D Monocytes % 7.9 Eosinophils % 2.2 Basophils % 0.4 Nucleated RBC % 0 POC Glucometer 158 106 03/12/18 03/12/18 03/12/18 06:17 06:55 11:17 WBC RBC Hgb Hct MCV MCH MCHC RDW Plt Count MPV Absolute Neuts (auto) Neutrophils % Lymphocytes % Monocytes % Eosinophils % Basophils % Nucleated RBC % POC Glucometer 48 70 114 03/12/18 17:11 WBC RBC Hgb Hct MCV MCH MCHC RDW Plt Count MPV Absolute Neuts (auto) Neutrophils % Lymphocytes % Monocytes % Eosinophils % Basophils % Nucleated RBC % POC Glucometer 152 Active Medications Acetaminophen (Tylenol -) 650 mg PO Q4H PRN PRN Reason: FEVER Amino Acids (Prosource No Carb Liquid Pkt) 30 ml PO BID@0800,1730 [facility] Last Admin: 03/12/18 18:06 Dose: 30 ml Artificial Tears (Artificial Tears) 2 drop OU BID [facility] Last Admin: 03/12/18 09:18 Dose: 2 drop Atorvastatin Calcium (Lipitor -) 10 mg GT HS [facility] Last Admin: 03/11/18 21:04 Dose: 10 mg Collagenase (Santyl -) 1 applic TP DAILY [facility] Last Admin: 03/12/18 14:39 Dose: 1 applic Diltiazem HCl (Cardizem Injection -) 10 mg IVPUSH Q6H PRN PRN Reason: TACHYCARDIA Last Admin: 03/02/18 09:45 Dose: 10 mg Docusate Sodium (Colace Liquid -) 100 mg PO DAILY PRN PRN Reason: CONSTIPATION Ferrous Sulfate (Feosol) 300 mg GT DAILY [facility] Last Admin: 03/12/18 09:14 Dose: 300 mg Insulin Aspart (Novolog Vial Sliding Scale -) 1 vial SQ ACHS [facility]; Protocol Last Admin: 03/12/18 17:12 Dose: 2 units Levothyroxine Sodium (Synthroid -) 37.5 mcg PEG DAILY@0700 [facility] Last Admin: 03/12/18 06:26 Dose: 37.5 mcg Metoprolol Tartrate (Lopressor -) 25 mg PO BID [facility] Last Admin: 03/12/18 09:14 Dose: 25 mg Non-Formulary Medication (Non-Formulary Med) 1 each GT DAILY [facility] Last Admin: 03/12/18 09:22 Dose: 1 each Nystatin (Nystop Powder -) 1 applic TP BID [facility] Last Admin: 03/12/18 09:15 Dose: 1 applic Oxybutynin Chloride (Ditropan -) 5 mg NGT BID [facility] Last Admin: 03/12/18 09:14 Dose: 5 mg Pantoprazole Sodium (Protonix Packets For Oral Suspension -) 40 mg NGT DAILY [facility] Last Admin: 03/12/18 09:14 Dose: 40 mg Senna (Senna Oral Solution -) 8.8 mg GT HS [facility] Last Admin: 03/11/18 21:07 Dose: Not Given Sertraline HCl (Zoloft -) 50 mg PO DAILY [facility] Last Admin: 03/12/18 09:14 Dose: 50 mg Simethicone (Mylicon Liquid -) 40 mg GT QID PRN PRN Reason: CONSTIPATION Last Admin: 03/07/18 17:08 Dose: 40 mg Tamsulosin HCl (Flomax -) 0.4 mg PO DAILY@0830 [facility] Last Admin: 03/12/18 18:05 Dose: Not Given ASSESSMENT/PLAN: 87 year old male with a PMHx significant for Diastolic heart failure, NIDDM, CKD , and 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 Admitted on 02/17/18 from [facility] for chronic respiratory failure and severe anemia with a hg of 5.5 and hypotension. 1. Multifactorial anemia with UGIB - s/p EGD with Diluefoy lesion - s/p heat probe and epi - s/p 10 units PRBC this hospital stay - Hgb currently stable, 9.3 this morning, No signs of Active bleeding - 1 Unit Packed RBC Transfused on 03/11 - GI (Dr. Diaz) Consulted, appreciate recommendations, - Glucerna Tube feeds being tolerated well - Experiences recurrent hypoglycemia in the morning, discontinued levemir currently, will continue to monitor - Abdominal XRay: : Functional PEG tube with tip in stomach. No sign of obstruction or leak - Family concerned for abdominal bloating, Serial abdomen exams, continue to monitor - Hematology consulted, Appreciate recommendations - Continue Ferrous Sulfate 300 mg GT DAILY [facility] 2. Acute on chronic respiratory failure - Due to aspiration PNA that has now improved, patient has returned to baseline vent settings - Not weanable due to poor mental status - Pulmonary (Dr. Perez) consulted, Appreciate recommendations 3. Aspiration PNA - Completed course of Zosyn, Not on any other ABx - ID (Dr. Garza) consulted, Appreciate recommendations 4. Acute Transaminitis - AST/ALT Trending down - Has hx of similar episode on 02/01/18 that self-resolved - Will continue to monitor 5. Acute on CKD - Hypoperfusion - BUN remains elevated, likely due to GI bleed - Cr remains elevated - No longer on steroids - Will continue to monitor - Nephrology consulted, Appreciate recommendations 6. New onset Afib - rate controlled, Continue Metoprolol Tartrate 25 mg PO BID [facility] - Not a candidate for anticoagulation due to recent GI bleed - Cardiology consulted, Appreciate recommendations 7. Hypernatremia - resolved - will continue water flushes and monitor 8. Thrombophilia - stable off medications 9. DM - Improved - Continue Insulin Aspart SQ ACHS [facility] - Continue Insulin Detemir SQ HS [facility] 10. 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 Hypothyroid - Continue Synthroid 37.5 mcg PEG DAILY @ 0700 [facility] 12. Urinary incontinence - Chronic indwelling christopher. cont oxybutin/flomax - Continue Flomax 0.4 mg PO DAILY@0830 [facility] - Continue Oxybutynin Chloride 5 mg BID [facility] 13. Depression - Continue on Sertraline HCl 50 mg PO DAILY [facility] 14. DVT ppx - SCD - Not a candidate for anticoagulation due to recent GI Bleed Visit type - Emergency Visit Emergency Visit: No - New Patient This patient is new to me today: No - Critical Care Critical Care patient: No
[2018-03-12] MEDS: ATORVASTATIN CA 10 MG TABLET (FP) GT SCH (22:57)
[2018-03-12] MEDS: SENNOSIDES 8.8 MG/5 ML BULK BOTTLE GT SCH (22:59)
[2018-03-13] MEDS: INSULIN SLIDING SCALE (NOVOLOG) 1 VIAL SQ SCH ×4 (06:27→23:24)
[2018-03-13] MEDS: LEVOTHYROXINE NA 25 MCG TABLET (FP) PEG SCH (06:28)
[2018-03-13 08:20] LABS: ALBUMIN 1.9 g/dl (3.4-5.0); ANION GAP 10 (8-16); BILIRUBIN,TOTAL 0.3 mg/dL (0.2-1.0); BLOOD UREA NITROGEN 81 mg/dL (7-18); CALCIUM 7.9 mg/dL (8.5-10.1); CHLORIDE 104 mmol/L (98-107); CO2 25 mmol/L (21-32); CREATININE 1.5 mg/dL (0.7-1.3); GLUCOSE,RANDOM 135 mg/dL (74-106); POTASSIUM 4.4 mmol/L (3.5-5.1); SGOT/AST 60 U/L (15-37); SGPT/ALT 93 U/L (12-78); SODIUM 139 mmol/L (136-145); TOT PROT 5.7 g/dl (6.4-8.2)
[2018-03-13 08:21] LABS: ALK PHOS 183 U/L (45-117)
[2018-03-13 08:33] LABS: BASO % 0.3 % (0-2.0); EOS % 2.6 % (0-4.5); HEMATOCRIT 25.6 % (35.4-49); HEMOGLOBIN 8.5 GM/dL (11.7-16.9); LYMPH % 14.8 % (8-40); MCH 29.8 pg (25.7-33.7); MCHC 33.1 g/dl (32.0-35.9); MEAN CELL VOLUME 90.1 fl (80-96); MEAN PLT VOLUME 9.3 fl (7.5-11.1); MONO % 9.2 % (3.8-10.2); NEUT % 73.1 % (42.8-82.8); PLATELET COUNT 159 K/MM3 (134-434); RBC 2.85 M/mm3 (4.00-5.60); RDW 18.4 % (11.9-15.9); WHITE BLOOD COUNT 5.5 K/mm3 (4.0-10.0)
--- NOTE | 2018-03-13 08:41 | PN ---
Progress Note, Physician History of Present Illness: 87M w/ pmh of traumatic fall (s/p neck (C4,5, and 6)/back surgery, tracheotomy placement now ventilator dependent, and PEG tube placement), frequent pneumonia , emphysema, A-fib, CHF, DM, dementia, renal failure, nonverbal TBI, paraplegia , and legal blindness and deafness, who presents to the emergency department via EMS from [facility] with 3 days of hypotension. As per patients son , his blood pressure has been decreasing over the past few days. He reports that at baseline, his systolic is between 110-119 in the mornings and between 100-109 at night. Pt has failed 5 weaning trials in the last few days, and it was noticed that there was blood around the tracheostomy site when suctioning. Pt' son denies recent fevers, chills, chest pain, emesis, hematemesis, melena, and hematochezia in pt. - Current Medication List Current Medications: Active Medications Acetaminophen (Tylenol -) 650 mg PO Q4H PRN PRN Reason: FEVER Amino Acids (Prosource No Carb Liquid Pkt) 30 ml PO BID@0800,1730 [facility] Last Admin: 03/12/18 18:06 Dose: 30 ml Artificial Tears (Artificial Tears) 2 drop OU BID [facility] Last Admin: 03/12/18 22:57 Dose: 2 drop Atorvastatin Calcium (Lipitor -) 10 mg GT HS [facility] Last Admin: 03/12/18 22:57 Dose: 10 mg Collagenase (Santyl -) 1 applic TP DAILY [facility] Last Admin: 03/12/18 14:39 Dose: 1 applic Diltiazem HCl (Cardizem Injection -) 10 mg IVPUSH Q6H PRN PRN Reason: TACHYCARDIA Last Admin: 03/02/18 09:45 Dose: 10 mg Docusate Sodium (Colace Liquid -) 100 mg PO DAILY PRN PRN Reason: CONSTIPATION Ferrous Sulfate (Feosol) 300 mg GT DAILY [facility] Last Admin: 03/12/18 09:14 Dose: 300 mg Insulin Aspart (Novolog Vial Sliding Scale -) 1 vial SQ [facility]END[facility]; Protocol Last Admin: 03/13/18 06:27 Dose: 4 units Levothyroxine Sodium (Synthroid -) 37.5 mcg PEG DAILY@0700 [facility] Last Admin: 03/13/18 06:28 Dose: 37.5 mcg Metoprolol Tartrate (Lopressor -) 25 mg PO BID [facility] Last Admin: 03/12/18 22:57 Dose: 25 mg Non-Formulary Medication (Non-Formulary Med) 1 each GT DAILY [facility] Last Admin: 03/12/18 09:22 Dose: 1 each Nystatin (Nystop Powder -) 1 applic TP BID [facility] Last Admin: 03/12/18 22:59 Dose: 1 applic Oxybutynin Chloride (Ditropan -) 5 mg NGT BID [facility] Last Admin: 03/12/18 22:57 Dose: 5 mg Pantoprazole Sodium (Protonix Packets For Oral Suspension -) 40 mg NGT DAILY [facility] Last Admin: 03/12/18 09:14 Dose: 40 mg Senna (Senna Oral Solution -) 8.8 mg GT HS [facility] Last Admin: 03/12/18 22:59 Dose: Not Given Sertraline HCl (Zoloft -) 50 mg PO DAILY [facility] Last Admin: 03/12/18 09:14 Dose: 50 mg Simethicone (Mylicon Liquid -) 40 mg GT QID PRN PRN Reason: CONSTIPATION Last Admin: 03/07/18 17:08 Dose: 40 mg Tamsulosin HCl (Flomax -) 0.4 mg PO DAILY@0830 [facility] Last Admin: 03/12/18 18:05 Dose: Not Given - Objective Vital Signs: Vital Signs Temperature 97.9 F 03/13/18 06:00 Pulse Rate 57 L 03/13/18 06:00 Respiratory Rate 16 03/13/18 06:55 Blood Pressure 123/57 03/13/18 06:00 O2 Sat by Pulse Oximetry (%) 100 03/12/18 21:00 Eyes: Yes: WNL, Conjunctiva Clear, EOM Intact HENT: Yes: WNL, Atraumatic, Normocephalic Neck: Yes: WNL, Supple, Trachea Midline Cardiovascular: Yes: WNL, Regular Rate and Rhythm Respiratory: Yes: WNL, Regular, Diminished, Mechanically Ventilated Gastrointestinal: Yes: WNL, Normal Bowel Sounds Genitourinary: Yes: WNL Musculoskeletal: Yes: WNL Extremities: Yes: WNL Edema: No Integumentary: Yes: WNL Neurological: Yes: Alert ...Motor Strength: WNL Psychiatric: Yes: WNL Labs: CBC, BMP 03/13/18 07:44 INR, PTT INR 1.13 (0.82-1.09) 02/16/18 22:40 Assessment/Plan - Problems (1) Anemia Assessment/Plan: s/p EGD, cauterization, and PRBCs. Maintain hydration. F/u BUn/Cr, Hb (8.5-->7.4). 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 Code(s): N18.3 - CHRONIC KIDNEY DISEASE, STAGE 3 (MODERATE) (3) Chronic respiratory failure Assessment/Plan: Ventilator dependent; on trach. Code(s): J96.10 - CHRONIC RESPIRATORY FAILURE, UNSP W HYPOXIA OR HYPERCAPNIA Qualifiers: Respiratory failure complication: unspecified whether with hypoxia or hypercapnia Qualified Code(s): J96.10 - Chronic respiratory failure, unspecified whether with hypoxia or hypercapnia (4) Hematuria Code(s): R31.9 - HEMATURIA, UNSPECIFIED (5) PAF (paroxysmal atrial fibrillation) Assessment/Plan: EKG 02/23/18: AF with RVR (HR 150 bpm); now has HR in 80s bpm. Increased metoprolol to 25 mg bid (pt has required occasional IV diltiazem for rapid VR); f/u HR and BP, and increase metoprolol as tolerated. If pt becomes profoundly bradycardia, will have to consider PPM. anticoagulation held due to GI bleed. TSH 3.59 recently. Code(s): I48.0 - PAROXYSMAL ATRIAL FIBRILLATION (6) S/P percutaneous endoscopic gastrostomy (PEG) tube placement Assessment/Plan: site appears intact Code(s): Z93.1 - GASTROSTOMY STATUS (7) Acute on chronic diastolic CHF (congestive heart failure) Code(s): I50.33 - ACUTE ON CHRONIC DIASTOLIC (CONGESTIVE) HEART FAILURE (8) Sinus bradycardia Code(s): R00.1 - BRADYCARDIA, UNSPECIFIED (9) TBI (traumatic brain injury) Code(s): S06.9X9A - UNSP INTRACRANIAL INJURY W LOC OF UNSP DURATION, INIT Qualifiers: Encounter type: sequela Loss of consciousness presence/duration: with LOC of unspecified duration Qualified Code(s): S06.9X9S - Unspecified intracranial injury with loss of consciousness of unspecified duration, sequela (10) Severe mitral regurgitation Code(s): I34.0 - NONRHEUMATIC MITRAL (VALVE) INSUFFICIENCY (11) Hypokalemia Assessment/Plan: Keep K+ 4-4.5 (4.8 today). F/u Mg, and keep 2-2.3 Keep PO4 2.5-3.5 Code(s): E87.6 - HYPOKALEMIA (12) Hypoalbuminemia Code(s): E88.09 - OTH DISORDERS OF PLASMA-PROTEIN METABOLISM, NEC
[2018-03-13] MEDS ORDERED: PT OWN MED DRAWER 7, Y5N ONE ×2 (09:34→23:16)
[2018-03-13] MEDS: FERROUS SO4 300 MG/5 ML ORAL SOLN UNIT DOSE CUPS GT SCH (09:42)
[2018-03-13] MEDS: NON-FORMULARY MED GT SCH (09:42)
[2018-03-13] MEDS: AMINO ACIDS/PROTEIN HYDROLYS 30 ML LIQUID.PKT PO SCH ×2 (09:42→17:52)
[2018-03-13] MEDS: ARTIFICIAL TEARS (POLYVINYL ALCOHOL 1.4%) OPTH DROPS OU SCH ×2 (09:42→23:20)
[2018-03-13] MEDS: METOPROLOL TARTRATE 25 MG TABLET (FP) PO SCH ×2 (09:42→23:18)
[2018-03-13] MEDS: OXYBUTYNIN CHLORIDE 5 MG TABLET NGT SCH ×2 (09:42→23:18)
[2018-03-13] MEDS: PANTOPRAZOLE SOD 40 MG SUSPENSION PACKET NGT SCH (09:43)
[2018-03-13] MEDS: SERTRALINE HCL 25 MG TABLET (FP) PO SCH (09:43)
[2018-03-13] MEDS: COLLAGENASE CLOSTRIDIUM HIST. 30 GRAMS TUBE TP SCH (09:43)
[2018-03-13] MEDS: NYSTATIN POWDER 100,000 UNITS/GM - 15 GM TOPICAL POWDER TP SCH ×2 (09:43→23:20)
[2018-03-13] MEDS: SIMETHICONE 40 MG/0.6 ML BOTTLE GT PRN (09:44)
[2018-03-13] MEDS: TAMSULOSIN HCL 0.4 MG CAP.ER.24H (FP) PO SCH (09:59)
--- NOTE | 2018-03-13 12:33 | PN ---
Progress Note (short form) - Note Progress Note: Awake on AC Mode of vent. NAD No acute events overnight. Intake & Output 03/10/18 03/11/18 03/12/18 03/13/18 23:59 23:59 23:59 23:59 Intake Total 975 2550 2540 720 Output Total 1000 1100 1100 900 Balance -25 1450 1440 -180 Weight 162 lb 3.2 oz 163 lb 163 lb 0.6 oz 163 lb 0.6 oz Last Vital Signs Temp Pulse Resp BP Pulse Ox 97.9 F 58 L 16 124/54 100 03/13/18 06:00 03/13/18 10:00 03/13/18 10:00 03/13/18 10:00 03/12/18 21:00 Active Medications Acetaminophen (Tylenol -) 650 mg PO Q4H PRN PRN Reason: FEVER Amino Acids (Prosource No Carb Liquid Pkt) 30 ml PO BID@0800,1730 [facility] Last Admin: 03/13/18 09:42 Dose: 30 ml Artificial Tears (Artificial Tears) 2 drop OU BID [facility] Last Admin: 03/13/18 09:42 Dose: 2 drop Atorvastatin Calcium (Lipitor -) 10 mg GT HS [facility] Last Admin: 03/12/18 22:57 Dose: 10 mg Collagenase (Santyl -) 1 applic TP DAILY [facility] Last Admin: 03/13/18 09:43 Dose: 1 applic Diltiazem HCl (Cardizem Injection -) 10 mg IVPUSH Q6H PRN PRN Reason: TACHYCARDIA Last Admin: 03/02/18 09:45 Dose: 10 mg Docusate Sodium (Colace Liquid -) 100 mg PO DAILY PRN PRN Reason: CONSTIPATION Ferrous Sulfate (Feosol) 300 mg GT DAILY [facility] Last Admin: 03/13/18 09:42 Dose: 300 mg Insulin Aspart (Novolog Vial Sliding Scale -) 1 vial SQ [facility]; Protocol Last Admin: 03/13/18 06:27 Dose: 4 units Levothyroxine Sodium (Synthroid -) 37.5 mcg PEG DAILY@0700 [facility] Last Admin: 03/13/18 06:28 Dose: 37.5 mcg Metoprolol Tartrate (Lopressor -) 25 mg PO BID [facility] Last Admin: 03/13/18 09:42 Dose: 25 mg Non-Formulary Medication (Non-Formulary Med) 1 each GT DAILY [facility] Last Admin: 03/13/18 09:42 Dose: 1 each Nystatin (Nystop Powder -) 1 applic TP BID [facility] Last Admin: 03/13/18 09:43 Dose: 1 applic Oxybutynin Chloride (Ditropan -) 5 mg NGT BID [facility] Last Admin: 03/13/18 09:42 Dose: 5 mg Pantoprazole Sodium (Protonix Packets For Oral Suspension -) 40 mg NGT DAILY [facility] Last Admin: 03/13/18 09:43 Dose: 40 mg Senna (Senna Oral Solution -) 8.8 mg GT HS [facility] Last Admin: 03/12/18 22:59 Dose: Not Given Sertraline HCl (Zoloft -) 50 mg PO DAILY [facility] Last Admin: 03/13/18 09:43 Dose: 50 mg Simethicone (Mylicon Liquid -) 40 mg GT QID PRN PRN Reason: CONSTIPATION Last Admin: 03/13/18 09:44 Dose: 40 mg Tamsulosin HCl (Flomax -) 0.4 mg PO DAILY@0830 [facility] Last Admin: 03/13/18 09:59 Dose: Not Given Constitutional: Yes: NAD, vented Eyes: Yes: WNL HENT: Yes: WNL Neck: Yes: Supple (trach) Cardiovascular: Yes: Pulse Irregular, S1, S2 Respiratory: Yes: Scattered Rhonchi Gastrointestinal: Yes: Soft, Other (peg) Extremities: Yes: WNL Edema: No Labs: Laboratory Results - last 24 hr 03/12/18 03/12/18 03/13/18 17:11 23:02 05:46 WBC RBC Hgb Hct MCV MCH MCHC RDW Plt Count MPV Absolute Neuts (auto) Neutrophils % Lymphocytes % Monocytes % Eosinophils % Basophils % Nucleated RBC % Sodium Potassium Chloride Carbon Dioxide Anion Gap BUN Creatinine Creat Clearance w eGFR POC Glucometer 152 208 185 Random Glucose Calcium Total Bilirubin AST ALT Alkaline Phosphatase Total Protein Albumin 03/13/18 03/13/18 06:20 07:44 WBC 5.5 RBC 2.85 L Hgb 8.5 L Hct 25.6 L MCV 90.1 MCH 29.8 MCHC 33.1 RDW 18.4 H Plt Count 159 MPV 9.3 Absolute Neuts (auto) 4.0 Neutrophils % 73.1 Lymphocytes % 14.8 D Monocytes % 9.2 Eosinophils % 2.6 Basophils % 0.3 Nucleated RBC % 0 Sodium 139 Potassium 4.4 Chloride 104 Carbon Dioxide 25 Anion Gap 10 BUN 81 H Creatinine 1.5 H Creat Clearance w eGFR 44.48 POC Glucometer Random Glucose 135 H D Calcium 7.9 L Total Bilirubin 0.3 AST 60 H D ALT 93 H D Alkaline Phosphatase 183 H Total Protein 5.7 L Albumin 1.9 L Problem List - Problems (1) Anemia Code(s): D64.9 - ANEMIA, UNSPECIFIED (2) Chronic kidney disease, stage 3 Code(s): N18.3 - CHRONIC KIDNEY DISEASE, STAGE 3 (MODERATE) (3) Chronic respiratory failure Code(s): J96.10 - CHRONIC RESPIRATORY FAILURE, UNSP W HYPOXIA OR HYPERCAPNIA Qualifiers: Respiratory failure complication: unspecified whether with hypoxia or hypercapnia Qualified Code(s): J96.10 - Chronic respiratory failure, unspecified whether with hypoxia or hypercapnia (4) PAF (paroxysmal atrial fibrillation) Code(s): I48.0 - PAROXYSMAL ATRIAL FIBRILLATION (5) Renal failure Code(s): N19 - UNSPECIFIED KIDNEY FAILURE Qualifiers: Renal failure chronicity: unspecified chronicity Qualified Code(s): N19 - Unspecified kidney failure (6) Diabetes Code(s): E11.9 - TYPE 2 DIABETES MELLITUS WITHOUT COMPLICATIONS Qualifiers: Diabetes mellitus type: type 2 Diabetes mellitus half-way insulin use: unspecified half-way insulin use status Diabetes mellitus complication status : with kidney complications Diabetes mellitus complication detail: with chronic kidney disease Chronic kidney disease stage: stage 3 (moderate) Qualified Code(s): E11.22 - Type 2 diabetes mellitus with diabetic chronic kidney disease; N18.3 - Chronic kidney disease, stage 3 (moderate) (7) TBI (traumatic brain injury) Code(s): S06.9X9A - UNSP INTRACRANIAL INJURY W LOC OF UNSP DURATION, INIT Qualifiers: Encounter type: sequela Loss of consciousness presence/duration: with LOC of unspecified duration Qualified Code(s): S06.9X9S - Unspecified intracranial injury with loss of consciousness of unspecified duration, sequela (8) [id number] kidney injury Code(s): N17.9 - ACUTE KIDNEY FAILURE, UNSPECIFIED; N18.9 - CHRONIC KIDNEY DISEASE, UNSPECIFIED (9) [id number] renal failure Code(s): N17.9 - ACUTE KIDNEY FAILURE, UNSPECIFIED; N18.9 - CHRONIC KIDNEY DISEASE, UNSPECIFIED Qualifiers: Acute renal failure type: unspecified Chronic kidney disease stage: stage 3 (moderate) Qualified Code(s): N17.9 - Acute kidney failure, unspecified; N18.3 - Chronic kidney disease, stage 3 (moderate) (10) Hypotension Code(s): I95.9 - HYPOTENSION, UNSPECIFIED (11) Hypotension Code(s): I95.9 - HYPOTENSION, UNSPECIFIED Assessment/Plan GI Bleed/Gastric Dieulafoy Lesion s/p EGD/epi/cautery Acute Blood Loss Anemia Chronic Respiratory Failure Pneumonia h/o Traumatic Brain Injury Functional Quadriplegia Acute on Chronic Renal Failure Atrial Fibrillation DM Dementia Elevated LFTs - monitor H/H - protonix - rate control - volume assist control - enteral feeds as tolerated - DVT/GI prophylaxis DR FORMAN
--- NOTE | 2018-03-13 13:42 | PN ---
Teaching Attending Note Name of Resident: Erica See ATTENDING PHYSICIAN STATEMENT I saw and evaluated the patient. I reviewed the resident's note and discussed the case with the resident. I agree with the resident's findings and plan as documented with exceptions below. SUBJECTIVE: Patient seen and examined. awake, non verbal. Unable to assess for ROS. OBJECTIVE: Vital Signs Period Temp Pulse Resp BP Sys/Wills Pulse Ox Last 24 Hr 97.9 F-98.9 F 52-66 14-23 118-134/54-78 100-100 Intake & Output 03/10/18 03/11/18 03/12/18 03/13/18 23:59 23:59 23:59 23:59 Intake Total 975 2550 2540 720 Output Total 1000 1100 1100 900 Balance -25 1450 1440 -180 Weight 162 lb 3.2 oz 163 lb 163 lb 0.6 oz 163 lb 0.6 oz General: lying in bed, awake, no acute distress Chest: no rales or wheezing anteriorly, decreased effort Abdomen:Soft, ND, no grimacing on deep palpation, PEG in place, pos Bowel sounds Extremities: no edema Laboratory Results - last 24 hr 03/12/18 03/12/18 03/13/18 17:11 23:02 05:46 WBC RBC Hgb Hct MCV MCH MCHC RDW Plt Count MPV Absolute Neuts (auto) Neutrophils % Lymphocytes % Monocytes % Eosinophils % Basophils % Nucleated RBC % Sodium Potassium Chloride Carbon Dioxide Anion Gap BUN Creatinine Creat Clearance w eGFR POC Glucometer 152 208 185 Random Glucose Calcium Total Bilirubin AST ALT Alkaline Phosphatase Total Protein Albumin 03/13/18 03/13/18 03/13/18 06:20 07:44 12:29 WBC 5.5 RBC 2.85 L Hgb 8.5 L Hct 25.6 L MCV 90.1 MCH 29.8 MCHC 33.1 RDW 18.4 H Plt Count 159 MPV 9.3 Absolute Neuts (auto) 4.0 Neutrophils % 73.1 Lymphocytes % 14.8 D Monocytes % 9.2 Eosinophils % 2.6 Basophils % 0.3 Nucleated RBC % 0 Sodium 139 Potassium 4.4 Chloride 104 Carbon Dioxide 25 Anion Gap 10 BUN 81 H Creatinine 1.5 H Creat Clearance w eGFR 44.48 POC Glucometer 219 Random Glucose 135 H D Calcium 7.9 L Total Bilirubin 0.3 AST 60 H D ALT 93 H D Alkaline Phosphatase 183 H Total Protein 5.7 L Albumin 1.9 L ASSESSMENT AND PLAN: 87 year old male with a significant past medical history of diastolic heart failure, NIDDM, CKD, and 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 Admitted on 02/17/18 from [facility] chronic respiratory failure and severe anemia with a hg of 5.5 and hypotension. -PEG dislodgement on s/p replacement -Acute Upper GI bleed from Dileufoy lesion -Acute blood loss anemia s/p 7 units PRBCs -Acute on chronic vent dependent respiratory failure, likely aspiration PNA. 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 hemodynamics stable, no gross evidence of bleed or hemodynamic instability. h/h noted, monitor for now. Discussed with Dr. Diaz, monitor for now and continue PPI/carafate. s/p 1 unit PRBC 03/11. Avoid frequent blood draws. s/p PEG replacement. Abdominal xray results reviewed. Feeds resumed, tolerating well. Levamir d/tre. resume based on blood sugar readings. Continue ISS and glucerna. s/p 15 days of zosyn. S/p bactrim, off abx, ID input appreciated. At prior vent settings renal function continues to improve, renal input appreciated. DVTPPX with SCDs dispo pending to SNR in 48 hours if no new concerns and SNF arrangements made.
--- NOTE | 2018-03-13 16:31 | PN ---
Progress Note, Physician History of Present Illness: Pt clinically remains the same. Afebrile. on MV. - Current Medication List Current Medications: Active Medications Acetaminophen (Tylenol -) 650 mg PO Q4H PRN PRN Reason: FEVER Amino Acids (Prosource No Carb Liquid Pkt) 30 ml PO BID@0800,1730 [facility] Last Admin: 03/13/18 09:42 Dose: 30 ml Artificial Tears (Artificial Tears) 2 drop OU BID [facility] Last Admin: 03/13/18 09:42 Dose: 2 drop Atorvastatin Calcium (Lipitor -) 10 mg GT HS [facility] Last Admin: 03/12/18 22:57 Dose: 10 mg Collagenase (Santyl -) 1 applic TP DAILY [facility] Last Admin: 03/13/18 09:43 Dose: 1 applic Diltiazem HCl (Cardizem Injection -) 10 mg IVPUSH Q6H PRN PRN Reason: TACHYCARDIA Last Admin: 03/02/18 09:45 Dose: 10 mg Docusate Sodium (Colace Liquid -) 100 mg PO DAILY PRN PRN Reason: CONSTIPATION Ferrous Sulfate (Feosol) 300 mg GT DAILY [facility] Last Admin: 03/13/18 09:42 Dose: 300 mg Insulin Aspart (Novolog Vial Sliding Scale -) 1 vial SQ [facility]; Protocol Last Admin: 03/13/18 12:31 Dose: 4 units Levothyroxine Sodium (Synthroid -) 37.5 mcg PEG DAILY@0700 [facility] Last Admin: 03/13/18 06:28 Dose: 37.5 mcg Metoprolol Tartrate (Lopressor -) 25 mg PO BID [facility] Last Admin: 03/13/18 09:42 Dose: 25 mg Non-Formulary Medication (Non-Formulary Med) 1 each GT DAILY [facility] Last Admin: 03/13/18 09:42 Dose: 1 each Nystatin (Nystop Powder -) 1 applic TP BID [facility] Last Admin: 03/13/18 09:43 Dose: 1 applic Oxybutynin Chloride (Ditropan -) 5 mg NGT BID [facility] Last Admin: 03/13/18 09:42 Dose: 5 mg Pantoprazole Sodium (Protonix Packets For Oral Suspension -) 40 mg NGT DAILY [facility] Last Admin: 03/13/18 09:43 Dose: 40 mg Senna (Senna Oral Solution -) 8.8 mg GT HS [facility] Last Admin: 03/12/18 22:59 Dose: Not Given Sertraline HCl (Zoloft -) 50 mg PO DAILY [facility] Last Admin: 03/13/18 09:43 Dose: 50 mg Simethicone (Mylicon Liquid -) 40 mg GT QID PRN PRN Reason: CONSTIPATION Last Admin: 03/13/18 09:44 Dose: 40 mg Tamsulosin HCl (Flomax -) 0.4 mg PO DAILY@0830 [facility] Last Admin: 03/13/18 09:59 Dose: Not Given - Objective Vital Signs: Vital Signs Temperature 98.3 F 03/13/18 14:31 Pulse Rate 63 03/13/18 14:31 Respiratory Rate 15 03/13/18 14:31 Blood Pressure 114/53 03/13/18 14:31 O2 Sat by Pulse Oximetry (%) 100 03/12/18 21:00 Constitutional: Yes: No Distress Cardiovascular: Yes: Regular Rate and Rhythm Respiratory: Yes: Regular Gastrointestinal: Yes: Normal Bowel Sounds, Soft Labs: CBC, BMP 03/13/18 07:44 03/13/18 06:20 INR, PTT INR 1.13 (0.82-1.09) 02/16/18 22:40 Problem List - Problems (1) [id number] renal failure Code(s): N17.9 - ACUTE KIDNEY FAILURE, UNSPECIFIED; N18.9 - CHRONIC KIDNEY DISEASE, UNSPECIFIED Qualifiers: Acute renal failure type: unspecified Chronic kidney disease stage: stage 3 (moderate) Qualified Code(s): N17.9 - Acute kidney failure, unspecified; N18.3 - Chronic kidney disease, stage 3 (moderate) (2) Anemia Code(s): D64.9 - ANEMIA, UNSPECIFIED Qualifiers: Anemia type: due to chronic kidney disease Chronic kidney disease stage: unspecified stage Qualified Code(s): N18.9 - Chronic kidney disease, unspecified; D63.1 - Anemia in chronic kidney disease (3) Chronic respiratory failure Code(s): J96.10 - CHRONIC RESPIRATORY FAILURE, UNSP W HYPOXIA OR HYPERCAPNIA Qualifiers: Respiratory failure complication: unspecified whether with hypoxia or hypercapnia Qualified Code(s): J96.10 - Chronic respiratory failure, unspecified whether with hypoxia or hypercapnia (4) Hypotension Code(s): I95.9 - HYPOTENSION, UNSPECIFIED (5) PAF (paroxysmal atrial fibrillation) Code(s): I48.0 - PAROXYSMAL ATRIAL FIBRILLATION (6) CHF (congestive heart failure) Code(s): I50.9 - HEART FAILURE, UNSPECIFIED Qualifiers: Heart failure type: diastolic Heart failure chronicity: chronic Qualified Code(s): I50.32 - Chronic diastolic (congestive) heart failure (7) Diabetes Code(s): E11.9 - TYPE 2 DIABETES MELLITUS WITHOUT COMPLICATIONS Qualifiers: Diabetes mellitus type: type 2 Diabetes mellitus beef breaker insulin use: unspecified halfway insulin use status Diabetes mellitus complication status : with kidney complications Diabetes mellitus complication detail: with chronic kidney disease Chronic kidney disease stage: stage 3 (moderate) Qualified Code(s): E11.22 - Type 2 diabetes mellitus with diabetic chronic kidney disease; N18.3 - Chronic kidney disease, stage 3 (moderate) (8) Hypothyroid Code(s): E03.9 - HYPOTHYROIDISM, UNSPECIFIED (9) TBI (traumatic brain injury) Code(s): S06.9X9A - UNSP INTRACRANIAL INJURY W LOC OF UNSP DURATION, INIT Qualifiers: Encounter type: sequela Loss of consciousness presence/duration: with LOC of unspecified duration Qualified Code(s): S06.9X9S - Unspecified intracranial injury with loss of consciousness of unspecified duration, sequela Assessment/Plan 87M with PMH of traumatic fall (s/p cervical/back surgery) , Respiratory faillure s/p trach now ventilator dependent,pneumonia, emphysema, A-fib, CHF, DM , dementia, renal failure,TBI, paraplegia, and legal blindness/ deafness, who presented [facility] with hypotension, leukocytosis, and hypoxia s/p Pseudomonas PNA/Sepsis TBI Respiratory Failure/ MV dependent AFIB CHF DM CKD GI Bleed Anemia -- continue monitor off antibiotics pt afebrile, without leukocytosis
--- NOTE | 2018-03-13 19:56 | PN ---
Physical Exam: SUBJECTIVE: Patient seen and examined resting comfortably on bed. Patient was moving his left foot spontaneously and continues to respond to verbal command, shifting his eyes towards me when his name was called. OBJECTIVE: Vital Signs Period Temp Pulse Resp BP Sys/Wills Pulse Ox Last 24 Hr 97.9 F-98.8 F 52-64 14-23 114-134/53-63 99-100 GENERAL: Resting comfortably, Nonverbal but easily awakens LUNGS: Mechanical Breath sounds anteriorly, decreased effort noted HEART: Regular rate and rhythm, S1, S2 without murmur, rub or gallop. ABDOMEN: Soft, normoactive bowel sounds, PEG tube present without bleeding, drainage or erythema NEUROLOGICAL: Upper extremities contracted b/l, spontaneously moves Left lower extremity Laboratory Results - last 24 hr 03/12/18 03/13/18 03/13/18 23:02 05:46 06:20 WBC RBC Hgb Hct MCV MCH MCHC RDW Plt Count MPV Absolute Neuts (auto) Neutrophils % Lymphocytes % Monocytes % Eosinophils % Basophils % Nucleated RBC % Sodium 139 Potassium 4.4 Chloride 104 Carbon Dioxide 25 Anion Gap 10 BUN 81 H Creatinine 1.5 H Creat Clearance w eGFR 44.48 POC Glucometer 208 185 Random Glucose 135 H D Calcium 7.9 L Total Bilirubin 0.3 AST 60 H D ALT 93 H D Alkaline Phosphatase 183 H Total Protein 5.7 L Albumin 1.9 L 03/13/18 03/13/18 03/13/18 07:44 12:29 17:51 WBC 5.5 RBC 2.85 L Hgb 8.5 L Hct 25.6 L MCV 90.1 MCH 29.8 MCHC 33.1 RDW 18.4 H Plt Count 159 MPV 9.3 Absolute Neuts (auto) 4.0 Neutrophils % 73.1 Lymphocytes % 14.8 D Monocytes % 9.2 Eosinophils % 2.6 Basophils % 0.3 Nucleated RBC % 0 Sodium Potassium Chloride Carbon Dioxide Anion Gap BUN Creatinine Creat Clearance w eGFR POC Glucometer 219 162 Random Glucose Calcium Total Bilirubin AST ALT Alkaline Phosphatase Total Protein Albumin Active Medications Acetaminophen (Tylenol -) 650 mg PO Q4H PRN PRN Reason: FEVER Amino Acids (Prosource No Carb Liquid Pkt) 30 ml PO BID@0800,1730 [facility] Last Admin: 03/13/18 17:52 Dose: 30 ml Artificial Tears (Artificial Tears) 2 drop OU BID [facility] Last Admin: 03/13/18 09:42 Dose: 2 drop Atorvastatin Calcium (Lipitor -) 10 mg GT HS [facility] Last Admin: 03/12/18 22:57 Dose: 10 mg Collagenase (Santyl -) 1 applic TP DAILY [facility] Last Admin: 03/13/18 09:43 Dose: 1 applic Diltiazem HCl (Cardizem Injection -) 10 mg IVPUSH Q6H PRN PRN Reason: TACHYCARDIA Last Admin: 03/02/18 09:45 Dose: 10 mg Docusate Sodium (Colace Liquid -) 100 mg PO DAILY PRN PRN Reason: CONSTIPATION Ferrous Sulfate (Feosol) 300 mg GT DAILY [facility] Last Admin: 03/13/18 09:42 Dose: 300 mg Insulin Aspart (Novolog Vial Sliding Scale -) 1 vial SQ [facility]; Protocol Last Admin: 03/13/18 17:52 Dose: 2 units Levothyroxine Sodium (Synthroid -) 37.5 mcg PEG DAILY@0700 [facility] Last Admin: 03/13/18 06:28 Dose: 37.5 mcg Metoprolol Tartrate (Lopressor -) 25 mg PO BID [facility] Last Admin: 03/13/18 09:42 Dose: 25 mg Non-Formulary Medication (Non-Formulary Med) 1 each GT DAILY [facility] Last Admin: 03/13/18 09:42 Dose: 1 each Nystatin (Nystop Powder -) 1 applic TP BID [facility] Last Admin: 03/13/18 09:43 Dose: 1 applic Oxybutynin Chloride (Ditropan -) 5 mg NGT BID [facility] Last Admin: 03/13/18 09:42 Dose: 5 mg Pantoprazole Sodium (Protonix Packets For Oral Suspension -) 40 mg NGT DAILY [facility] Last Admin: 03/13/18 09:43 Dose: 40 mg Senna (Senna Oral Solution -) 8.8 mg GT [facility] Last Admin: 03/12/18 22:59 Dose: Not Given Sertraline HCl (Zoloft -) 50 mg PO DAILY [facility] Last Admin: 03/13/18 09:43 Dose: 50 mg Simethicone (Mylicon Liquid -) 40 mg GT QID PRN PRN Reason: CONSTIPATION Last Admin: 03/13/18 09:44 Dose: 40 mg Tamsulosin HCl (Flomax -) 0.4 mg PO DAILY@0830 [facility] Last Admin: 03/13/18 09:59 Dose: Not Given ASSESSMENT/PLAN: 87 year old male with a PMHx significant for Diastolic heart failure, NIDDM, CKD , and 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 Admitted on 02/17/18 from [facility] for chronic respiratory failure and severe anemia with a hg of 5.5 and hypotension. 1. Multifactorial anemia with UGIB - s/p EGD with Diluefoy lesion - s/p heat probe and epi - s/p 10 units PRBC this hospital stay - Hgb currently stable, 8.5 this morning, No signs of Active bleeding - 1 Unit Packed RBC Transfused on 03/11 - GI (Dr. Diaz) Consulted, appreciate recommendations, - Glucerna Tube feeds being tolerated well - Experiences recurrent hypoglycemia in the morning, discontinued levemir currently, will continue to monitor - Abdominal XRay: : Functional PEG tube with tip in stomach. No sign of obstruction or leak - Family concerned for abdominal bloating, Serial abdomen exams, continue to monitor - Hematology consulted, Appreciate recommendations - Continue Ferrous Sulfate 300 mg GT DAILY [facility] 2. Acute on chronic respiratory failure - Due to aspiration PNA that has now improved, patient has returned to baseline vent settings - Not weanable due to poor mental status - Pulmonary (Dr. Perez) consulted, Appreciate recommendations 3. Aspiration PNA - Completed course of Zosyn, Not on any other ABx - ID (Dr. Garza) consulted, Appreciate recommendations 4. Acute Transaminitis - AST/ALT Trending down - Has hx of similar episode on 02/01/18 that self-resolved - Will continue to monitor 5. Acute on CKD - Hypoperfusion - BUN remains elevated, likely due to GI bleed - Cr remains elevated - No longer on steroids - Will continue to monitor - Nephrology consulted, Appreciate recommendations 6. New onset Afib - rate controlled, Continue Metoprolol Tartrate 25 mg PO BID LILIA - Not a candidate for anticoagulation due to recent GI bleed - Cardiology consulted, Appreciate recommendations 7. Hypernatremia - resolved - will continue water flushes and monitor 8. Thrombophilia - stable off medications 9. DM - Improved - Continue Insulin Aspart SQ ACHS LILIA - Continue Insulin Detemir SQ HS [facility] 10. 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 Hypothyroid - Continue Synthroid 37.5 mcg PEG DAILY @ 0700 [facility] 12. Urinary incontinence - Chronic indwelling christopher. cont oxybutin/flomax - Continue Flomax 0.4 mg PO DAILY@0830 LILIA - Continue Oxybutynin Chloride 5 mg BID [facility] 13. Depression - Continue on Sertraline HCl 50 mg PO DAILY [facility] 14. DVT ppx - SCD - Not a candidate for anticoagulation due to recent GI Bleed Visit type - Emergency Visit Emergency Visit: No - New Patient This patient is new to me today: No - Critical Care Critical Care patient: No
[2018-03-13] MEDS: SENNOSIDES 8.8 MG/5 ML BULK BOTTLE GT SCH (23:18)
[2018-03-13] MEDS: ATORVASTATIN CA 10 MG TABLET (FP) GT SCH (23:18)
[2018-03-14] MEDS: INSULIN SLIDING SCALE (NOVOLOG) 1 VIAL SQ SCH ×4 (06:23→23:26)
[2018-03-14] MEDS: LEVOTHYROXINE NA 25 MCG TABLET (FP) PEG SCH (06:24)
[2018-03-14] MEDS: AMINO ACIDS/PROTEIN HYDROLYS 30 ML LIQUID.PKT PO SCH ×2 (08:51→17:09)
--- NOTE | 2018-03-14 08:55 | PN ---
Progress Note, Physician History of Present Illness: 87M w/ pmh of traumatic fall (s/p neck (C4,5, and 6)/back surgery, tracheotomy placement now ventilator dependent, and PEG tube placement), frequent pneumonia , emphysema, A-fib, CHF, DM, dementia, renal failure, nonverbal TBI, paraplegia , and legal blindness and deafness, who presents to the emergency department via EMS from [facility] with 3 days of hypotension. As per patients son , his blood pressure has been decreasing over the past few days. He reports that at baseline, his systolic is between 110-119 in the mornings and between 100-109 at night. Pt has failed 5 weaning trials in the last few days, and it was noticed that there was blood around the tracheostomy site when suctioning. Pt' son denies recent fevers, chills, chest pain, emesis, hematemesis, melena, and hematochezia in pt. - Current Medication List Current Medications: Active Medications Acetaminophen (Tylenol -) 650 mg PO Q4H PRN PRN Reason: FEVER Amino Acids (Prosource No Carb Liquid Pkt) 30 ml PO BID@0800,1730 [facility] Last Admin: 03/13/18 17:52 Dose: 30 ml Artificial Tears (Artificial Tears) 2 drop OU BID [facility] Last Admin: 03/13/18 23:20 Dose: 2 drop Atorvastatin Calcium (Lipitor -) 10 mg GT HS [facility] Last Admin: 03/13/18 23:18 Dose: 10 mg Collagenase (Santyl -) 1 applic TP DAILY [facility] Last Admin: 03/13/18 09:43 Dose: 1 applic Diltiazem HCl (Cardizem Injection -) 10 mg IVPUSH Q6H PRN PRN Reason: TACHYCARDIA Last Admin: 03/02/18 09:45 Dose: 10 mg Docusate Sodium (Colace Liquid -) 100 mg PO DAILY PRN PRN Reason: CONSTIPATION Ferrous Sulfate (Feosol) 300 mg GT DAILY [facility] Last Admin: 03/13/18 09:42 Dose: 300 mg Insulin Aspart (Novolog Vial Sliding Scale -) 1 vial SQ [facility]; Protocol Last Admin: 03/14/18 06:23 Dose: 2 units Levothyroxine Sodium (Synthroid -) 37.5 mcg PEG DAILY@0700 [facility] Last Admin: 03/14/18 06:24 Dose: 37.5 mcg Metoprolol Tartrate (Lopressor -) 25 mg PO BID [facility] Last Admin: 03/13/18 23:18 Dose: 25 mg Non-Formulary Medication (Non-Formulary Med) 1 each GT DAILY [facility] Last Admin: 03/13/18 09:42 Dose: 1 each Nystatin (Nystop Powder -) 1 applic TP BID [facility] Last Admin: 03/13/18 23:20 Dose: 1 applic Oxybutynin Chloride (Ditropan -) 5 mg NGT BID [facility] Last Admin: 03/13/18 23:18 Dose: 5 mg Pantoprazole Sodium (Protonix Packets For Oral Suspension -) 40 mg NGT DAILY [facility] Last Admin: 03/13/18 09:43 Dose: 40 mg Senna (Senna Oral Solution -) 8.8 mg GT HS [facility] Last Admin: 03/13/18 23:18 Dose: 8.8 mg Sertraline HCl (Zoloft -) 50 mg PO DAILY [facility] Last Admin: 03/13/18 09:43 Dose: 50 mg Simethicone (Mylicon Liquid -) 40 mg GT QID PRN PRN Reason: CONSTIPATION Last Admin: 03/13/18 09:44 Dose: 40 mg Tamsulosin HCl (Flomax -) 0.4 mg PO DAILY@0830 [facility] Last Admin: 03/13/18 09:59 Dose: Not Given - Objective Vital Signs: Vital Signs Temperature 97.8 F 03/14/18 05:00 Pulse Rate 54 L 03/14/18 05:00 Respiratory Rate 14 03/14/18 07:05 Blood Pressure 113/54 03/14/18 05:00 O2 Sat by Pulse Oximetry (%) 99 03/13/18 21:00 Eyes: Yes: WNL, Conjunctiva Clear, EOM Intact HENT: Yes: WNL, Atraumatic, Normocephalic Neck: Yes: WNL, Supple, Trachea Midline Cardiovascular: Yes: WNL, Regular Rate and Rhythm Respiratory: Yes: Diminished, Mechanically Ventilated Gastrointestinal: Yes: WNL, Normal Bowel Sounds Genitourinary: Yes: WNL Musculoskeletal: Yes: WNL Extremities: Yes: WNL Edema: No Integumentary: Yes: WNL Neurological: Yes: Alert ...Motor Strength: WNL Psychiatric: Yes: WNL Labs: CBC, BMP 03/13/18 07:44 03/13/18 06:20 INR, PTT INR 1.13 (0.82-1.09) 02/16/18 22:40 Assessment/Plan - Problems (1) Anemia Assessment/Plan: s/p EGD, cauterization, and PRBCs. Maintain hydration. F/u BUn/Cr, Hb (8.5-->7.4). Code(s): D64.9 - ANEMIA, UNSPECIFIED Qualifiers: Anemia type: due to chronic kidney disease Chronic kidney disease stage: unspecified stage Qualified Code(s): N18.9 - Chronic kidney disease, unspecified; D63.1 - Anemia in chronic kidney disease (2) Chronic kidney disease, stage 3 Assessment/Plan: f/u with bicycle messenger; Improving BUN/Cr since GI cauterization. Code(s): N18.3 - CHRONIC KIDNEY DISEASE, STAGE 3 (MODERATE) (3) Chronic respiratory failure Assessment/Plan: Ventilator dependent; on trach. Code(s): J96.10 - CHRONIC RESPIRATORY FAILURE, UNSP W HYPOXIA OR HYPERCAPNIA Qualifiers: Respiratory failure complication: unspecified whether with hypoxia or hypercapnia Qualified Code(s): J96.10 - Chronic respiratory failure, unspecified whether with hypoxia or hypercapnia (4) Hematuria Code(s): R31.9 - HEMATURIA, UNSPECIFIED (5) PAF (paroxysmal atrial fibrillation) Assessment/Plan: EKG 02/23/18: AF with RVR (HR 150 bpm); now has HR in 80s bpm. Increased metoprolol to 25 mg bid (pt has required occasional IV diltiazem for rapid VR); f/u HR and BP, and increase metoprolol as tolerated. If pt becomes profoundly bradycardia, will have to consider PPM. anticoagulation held due to GI bleed. TSH 3.59 recently. Code(s): I48.0 - PAROXYSMAL ATRIAL FIBRILLATION (6) S/P percutaneous endoscopic gastrostomy (PEG) tube placement Assessment/Plan: site appears intact Code(s): Z93.1 - GASTROSTOMY STATUS (7) Acute on chronic diastolic CHF (congestive heart failure) Code(s): I50.33 - ACUTE ON CHRONIC DIASTOLIC (CONGESTIVE) HEART FAILURE (8) Sinus bradycardia Code(s): R00.1 - BRADYCARDIA, UNSPECIFIED (9) TBI (traumatic brain injury) Code(s): S06.9X9A - UNSP INTRACRANIAL INJURY W LOC OF UNSP DURATION, INIT Qualifiers: Encounter type: sequela Loss of consciousness presence/duration: with LOC of unspecified duration Qualified Code(s): S06.9X9S - Unspecified intracranial injury with loss of consciousness of unspecified duration, sequela (10) Severe mitral regurgitation Code(s): I34.0 - NONRHEUMATIC MITRAL (VALVE) INSUFFICIENCY (11) Hypokalemia Assessment/Plan: Keep K+ 4-4.5 (4.8 today). F/u Mg, and keep 2-2.3 Keep PO4 2.5-3.5 Code(s): E87.6 - HYPOKALEMIA (12) Hypoalbuminemia Code(s): E88.09 - OTH DISORDERS OF PLASMA-PROTEIN METABOLISM, NEC
[2018-03-14 09:11] LABS: BASO % 0.4 % (0-2.0); EOS % 2.8 % (0-4.5); HEMATOCRIT 25.6 % (35.4-49); HEMOGLOBIN 8.4 GM/dL (11.7-16.9); LYMPH % 17.2 % (8-40); MCH 29.6 pg (25.7-33.7); MCHC 32.8 g/dl (32.0-35.9); MEAN CELL VOLUME 90.4 fl (80-96); MONO % 8.7 % (3.8-10.2); NEUT % 70.9 % (42.8-82.8); PLATELET COUNT 149 K/MM3 (134-434); RBC 2.83 M/mm3 (4.00-5.60); RDW 17.9 % (11.9-15.9); WHITE BLOOD COUNT 5.3 K/mm3 (4.0-10.0)
[2018-03-14] MEDS ORDERED: PT OWN MED DRAWER 7, Y5N ONE ×2 (09:34→23:15)
[2018-03-14] MEDS: FERROUS SO4 300 MG/5 ML ORAL SOLN UNIT DOSE CUPS GT SCH (09:51)
[2018-03-14] MEDS: OXYBUTYNIN CHLORIDE 5 MG TABLET NGT SCH ×2 (09:51→23:25)
[2018-03-14] MEDS: PANTOPRAZOLE SOD 40 MG SUSPENSION PACKET NGT SCH (09:51)
[2018-03-14] MEDS: SERTRALINE HCL 25 MG TABLET (FP) PO SCH (09:52)
[2018-03-14] MEDS: METOPROLOL TARTRATE 25 MG TABLET (FP) PO SCH ×2 (09:52→23:25)
[2018-03-14] MEDS: TAMSULOSIN HCL 0.4 MG CAP.ER.24H (FP) PO SCH ×2 (10:00→10:14)
[2018-03-14] MEDS: NON-FORMULARY MED GT SCH (10:00)
[2018-03-14] MEDS: COLLAGENASE CLOSTRIDIUM HIST. 30 GRAMS TUBE TP SCH (10:01)
[2018-03-14] MEDS: NYSTATIN POWDER 100,000 UNITS/GM - 15 GM TOPICAL POWDER TP SCH ×2 (10:01→23:26)
[2018-03-14] MEDS: ARTIFICIAL TEARS (POLYVINYL ALCOHOL 1.4%) OPTH DROPS OU SCH ×2 (10:02→23:24)
--- NOTE | 2018-03-14 12:03 | PN ---
Progress Note, Physician History of Present Illness: awake alert comfortable no changes over night on vent non verbal - Current Medication List Current Medications: Active Medications Acetaminophen (Tylenol -) 650 mg PO Q4H PRN PRN Reason: FEVER Amino Acids (Prosource No Carb Liquid Pkt) 30 ml PO BID@0800,1730 [facility] Last Admin: 03/14/18 08:51 Dose: 30 ml Artificial Tears (Artificial Tears) 2 drop OU BID [facility] Last Admin: 03/14/18 10:02 Dose: 2 drop Atorvastatin Calcium (Lipitor -) 10 mg GT HS [facility] Last Admin: 03/13/18 23:18 Dose: 10 mg Collagenase (Santyl -) 1 applic TP DAILY [facility] Last Admin: 03/14/18 10:01 Dose: 1 applic Diltiazem HCl (Cardizem Injection -) 10 mg IVPUSH Q6H PRN PRN Reason: TACHYCARDIA Last Admin: 03/02/18 09:45 Dose: 10 mg Docusate Sodium (Colace Liquid -) 100 mg PO DAILY PRN PRN Reason: CONSTIPATION Ferrous Sulfate (Feosol) 300 mg GT DAILY [facility] Last Admin: 03/14/18 09:51 Dose: 300 mg Insulin Aspart (Novolog Vial Sliding Scale -) 1 vial SQ [facility]; Protocol Last Admin: 03/14/18 06:23 Dose: 2 units Levothyroxine Sodium (Synthroid -) 37.5 mcg PEG DAILY@0700 [facility] Last Admin: 03/14/18 06:24 Dose: 37.5 mcg Metoprolol Tartrate (Lopressor -) 25 mg PO BID [facility] Last Admin: 03/14/18 09:52 Dose: 25 mg Non-Formulary Medication (Non-Formulary Med) 1 each GT DAILY [facility] Last Admin: 03/14/18 10:00 Dose: 1 each Nystatin (Nystop Powder -) 1 applic TP BID [facility] Last Admin: 03/14/18 10:01 Dose: 1 applic Oxybutynin Chloride (Ditropan -) 5 mg NGT BID [facility] Last Admin: 03/14/18 09:51 Dose: 5 mg Pantoprazole Sodium (Protonix Packets For Oral Suspension -) 40 mg NGT DAILY [facility] Last Admin: 03/14/18 09:51 Dose: 40 mg Senna (Senna Oral Solution -) 8.8 mg GT HS [facility] Last Admin: 03/13/18 23:18 Dose: 8.8 mg Sertraline HCl (Zoloft -) 50 mg PO DAILY [facility] Last Admin: 03/14/18 09:52 Dose: 50 mg Simethicone (Mylicon Liquid -) 40 mg GT QID PRN PRN Reason: CONSTIPATION Last Admin: 03/13/18 09:44 Dose: 40 mg Tamsulosin HCl (Flomax -) 0.4 mg PO DAILY@0830 [facility] Last Admin: 03/14/18 10:00 Dose: 0.4 mg - Objective Vital Signs: Vital Signs Temperature 97.8 F 03/14/18 05:00 Pulse Rate 54 L 03/14/18 05:00 Respiratory Rate 16 03/14/18 10:41 Blood Pressure 113/54 03/14/18 05:00 O2 Sat by Pulse Oximetry (%) 99 03/13/18 21:00 Constitutional: Yes: No Distress, Calm Respiratory: Yes: Mechanically Ventilated, Other Gastrointestinal: Yes: Normal Bowel Sounds, Soft, Other (peg in place) Neurological: Yes: Other Labs: CBC, BMP 03/14/18 08:10 03/13/18 06:20 INR, PTT INR 1.13 (0.82-1.09) 02/16/18 22:40 Assessment/Plan Problem List - Problems (1) Anemia Code(s): D64.9 - ANEMIA, UNSPECIFIED (2) Chronic kidney disease, stage 3 Code(s): N18.3 - CHRONIC KIDNEY DISEASE, STAGE 3 (MODERATE) (3) Chronic respiratory failure Code(s): J96.10 - CHRONIC RESPIRATORY FAILURE, UNSP W HYPOXIA OR HYPERCAPNIA Qualifiers: Respiratory failure complication: unspecified whether with hypoxia or hypercapnia Qualified Code(s): J96.10 - Chronic respiratory failure, unspecified whether with hypoxia or hypercapnia (4) PAF (paroxysmal atrial fibrillation) Code(s): I48.0 - PAROXYSMAL ATRIAL FIBRILLATION (5) Renal failure Code(s): N19 - UNSPECIFIED KIDNEY FAILURE Qualifiers: Renal failure chronicity: unspecified chronicity Qualified Code(s): N19 - Unspecified kidney failure (6) Diabetes Code(s): E11.9 - TYPE 2 DIABETES MELLITUS WITHOUT COMPLICATIONS (7) TBI (traumatic brain injury) Code(s): S06.9X9A - UNSP INTRACRANIAL INJURY W LOC OF UNSP DURATION, INIT (8) [id number] kidney injury Code(s): N17.9 - ACUTE KIDNEY FAILURE, UNSPECIFIED; N18.9 - CHRONIC KIDNEY DISEASE, UNSPECIFIED (9) [id number] renal failure Code(s): N17.9 - ACUTE KIDNEY FAILURE, UNSPECIFIED; N18.9 - CHRONIC KIDNEY DISEASE, UNSPECIFIED (10) Hypotension Code(s): I95.9 - HYPOTENSION, UNSPECIFIED (11) Hypotension Code(s): I95.9 - HYPOTENSION, UNSPECIFIED 12 gi bleed 13 difuleoy lesion 14 rash I plan continue to monitor off of abx nutrition rest as per primary care as per pul suctioning if needed final plan awaited
--- NOTE | 2018-03-14 12:46 | PN ---
Progress Note (short form) - Note Progress Note: Awake on AC Mode of vent. NAD No acute events overnight. Intake & Output 03/11/18 03/12/18 03/13/18 03/14/18 23:59 23:59 23:59 23:59 Intake Total 2550 2540 720 1080 Output Total 1100 1100 1600 1000 Balance 1450 1440 -880 80 Weight 163 lb 163 lb 0.6 oz 163 lb 0.6 oz 164 lb 0.2 oz Last Vital Signs Temp Pulse Resp BP Pulse Ox 97.8 F 54 L 16 113/54 99 03/14/18 05:00 03/14/18 05:00 03/14/18 10:41 03/14/18 05:00 03/13/18 21:00 Active Medications Acetaminophen (Tylenol -) 650 mg PO Q4H PRN PRN Reason: FEVER Amino Acids (Prosource No Carb Liquid Pkt) 30 ml PO BID@0800,1730 [facility] Last Admin: 03/14/18 08:51 Dose: 30 ml Artificial Tears (Artificial Tears) 2 drop OU BID [facility] Last Admin: 03/14/18 10:02 Dose: 2 drop Atorvastatin Calcium (Lipitor -) 10 mg GT HS [facility] Last Admin: 03/13/18 23:18 Dose: 10 mg Collagenase (Santyl -) 1 applic TP DAILY [facility] Last Admin: 03/14/18 10:01 Dose: 1 applic Diltiazem HCl (Cardizem Injection -) 10 mg IVPUSH Q6H PRN PRN Reason: TACHYCARDIA Last Admin: 03/02/18 09:45 Dose: 10 mg Docusate Sodium (Colace Liquid -) 100 mg PO DAILY PRN PRN Reason: CONSTIPATION Ferrous Sulfate (Feosol) 300 mg GT DAILY [facility] Last Admin: 03/14/18 09:51 Dose: 300 mg Insulin Aspart (Novolog Vial Sliding Scale -) 1 vial SQ ACHS [facility]; Protocol Last Admin: 03/14/18 12:13 Dose: 2 units Levothyroxine Sodium (Synthroid -) 37.5 mcg PEG DAILY@0700 [facility] Last Admin: 03/14/18 06:24 Dose: 37.5 mcg Metoprolol Tartrate (Lopressor -) 25 mg PO BID [facility] Last Admin: 03/14/18 09:52 Dose: 25 mg Non-Formulary Medication (Non-Formulary Med) 1 each GT DAILY [facility] Last Admin: 03/14/18 10:00 Dose: 1 each Nystatin (Nystop Powder -) 1 applic TP BID [facility] Last Admin: 03/14/18 10:01 Dose: 1 applic Oxybutynin Chloride (Ditropan -) 5 mg NGT BID [facility] Last Admin: 03/14/18 09:51 Dose: 5 mg Pantoprazole Sodium (Protonix Packets For Oral Suspension -) 40 mg NGT DAILY [facility] Last Admin: 03/14/18 09:51 Dose: 40 mg Senna (Senna Oral Solution -) 8.8 mg GT HS [facility] Last Admin: 03/13/18 23:18 Dose: 8.8 mg Sertraline HCl (Zoloft -) 50 mg PO DAILY [facility] Last Admin: 03/14/18 09:52 Dose: 50 mg Simethicone (Mylicon Liquid -) 40 mg GT QID PRN PRN Reason: CONSTIPATION Last Admin: 03/13/18 09:44 Dose: 40 mg Tamsulosin HCl (Flomax -) 0.4 mg PO DAILY@0830 [facility] Last Admin: 03/14/18 10:00 Dose: 0.4 mg Constitutional: Yes: NAD, vented Eyes: Yes: WNL HENT: Yes: WNL Neck: Yes: Supple (trach) Cardiovascular: Yes: Pulse Irregular, S1, S2 Respiratory: Yes: Scattered Rhonchi Gastrointestinal: Yes: Soft, Other (peg) Extremities: Yes: WNL Edema: No Labs: Laboratory Results - last 24 hr 03/13/18 03/13/18 03/13/18 12:29 17:51 23:23 WBC RBC Hgb Hct MCV MCH MCHC RDW Plt Count MPV Absolute Neuts (auto) Neutrophils % Lymphocytes % Monocytes % Eosinophils % Basophils % Nucleated RBC % POC Glucometer 219 162 201 03/14/18 03/14/18 03/14/18 06:22 08:10 12:10 WBC 5.3 RBC 2.83 L Hgb 8.4 L Hct 25.6 L MCV 90.4 MCH 29.6 MCHC 32.8 RDW 17.9 H Plt Count 149 MPV 9.0 Absolute Neuts (auto) 3.7 Neutrophils % 70.9 Lymphocytes % 17.2 Monocytes % 8.7 Eosinophils % 2.8 Basophils % 0.4 Nucleated RBC % 0 POC Glucometer 171 166 Problem List - Problems (1) Anemia Code(s): D64.9 - ANEMIA, UNSPECIFIED (2) Chronic kidney disease, stage 3 Code(s): N18.3 - CHRONIC KIDNEY DISEASE, STAGE 3 (MODERATE) (3) Chronic respiratory failure Code(s): J96.10 - CHRONIC RESPIRATORY FAILURE, UNSP W HYPOXIA OR HYPERCAPNIA Qualifiers: Respiratory failure complication: unspecified whether with hypoxia or hypercapnia Qualified Code(s): J96.10 - Chronic respiratory failure, unspecified whether with hypoxia or hypercapnia (4) PAF (paroxysmal atrial fibrillation) Code(s): I48.0 - PAROXYSMAL ATRIAL FIBRILLATION (5) Renal failure Code(s): N19 - UNSPECIFIED KIDNEY FAILURE Qualifiers: Renal failure chronicity: unspecified chronicity Qualified Code(s): N19 - Unspecified kidney failure (6) Diabetes Code(s): E11.9 - TYPE 2 DIABETES MELLITUS WITHOUT COMPLICATIONS Qualifiers: Diabetes mellitus type: type 2 Diabetes mellitus [facility] insulin use: unspecified termite helper insulin use status Diabetes mellitus complication status : with kidney complications Diabetes mellitus complication detail: with chronic kidney disease Chronic kidney disease stage: stage 3 (moderate) Qualified Code(s): E11.22 - Type 2 diabetes mellitus with diabetic chronic kidney disease; N18.3 - Chronic kidney disease, stage 3 (moderate) (7) TBI (traumatic brain injury) Code(s): S06.9X9A - UNSP INTRACRANIAL INJURY W LOC OF UNSP DURATION, INIT Qualifiers: Encounter type: sequela Loss of consciousness presence/duration: with LOC of unspecified duration Qualified Code(s): S06.9X9S - Unspecified intracranial injury with loss of consciousness of unspecified duration, sequela (8) Ofuli-cm-wqnkurr kidney injury Code(s): N17.9 - ACUTE KIDNEY FAILURE, UNSPECIFIED; N18.9 - CHRONIC KIDNEY DISEASE, UNSPECIFIED (9) Dzave-qe-jxzyeyp renal failure Code(s): N17.9 - ACUTE KIDNEY FAILURE, UNSPECIFIED; N18.9 - CHRONIC KIDNEY DISEASE, UNSPECIFIED Qualifiers: Acute renal failure type: unspecified Chronic kidney disease stage: stage 3 (moderate) Qualified Code(s): N17.9 - Acute kidney failure, unspecified; N18.3 - Chronic kidney disease, stage 3 (moderate) (10) Hypotension Code(s): I95.9 - HYPOTENSION, UNSPECIFIED (11) Hypotension Code(s): I95.9 - HYPOTENSION, UNSPECIFIED Assessment/Plan GI Bleed/Gastric Dieulafoy Lesion s/p EGD/epi/cautery Acute Blood Loss Anemia Chronic Respiratory Failure Pneumonia h/o Traumatic Brain Injury Functional Quadriplegia Acute on Chronic Renal Failure Atrial Fibrillation DM Dementia Elevated LFTs - monitor H/H - protonix - rate control - volume assist control - enteral feeds as tolerated - DVT/GI prophylaxis Dr Lr
--- NOTE | 2018-03-14 15:31 | PN ---
Physical Exam: SUBJECTIVE: Patient seen and examined, opens eyes to voice,more interactive than prior. Nonverbal, unable to assess for ROS. OBJECTIVE: Vital Signs Period Temp Pulse Resp BP Sys/Wills Pulse Ox Last 24 Hr 97.8 F-98.3 F 52-58 14-25 113-130/54-72 99-99 GENERAL: lying in bed in no acute distress Chest: decreased effort, positive air entry bilaterally, no wheezing Abdomen:Soft, ND, no grimacing on deep palpation, positive bowel sounds, PEG in place Extremities: no edema Laboratory Results - last 24 hr 03/11/18 03/13/18 03/13/18 08:50 17:51 23:23 WBC RBC Hgb Hct MCV MCH MCHC RDW Plt Count MPV Absolute Neuts (auto) Neutrophils % Lymphocytes % Monocytes % Eosinophils % Basophils % Nucleated RBC % POC Glucometer 162 201 Blood Type O POSITIVE Antibody Screen Negative Crossmatch See Detail 03/14/18 03/14/18 03/14/18 06:22 08:10 12:10 WBC 5.3 RBC 2.83 L Hgb 8.4 L Hct 25.6 L MCV 90.4 MCH 29.6 MCHC 32.8 RDW 17.9 H Plt Count 149 MPV 9.0 Absolute Neuts (auto) 3.7 Neutrophils % 70.9 Lymphocytes % 17.2 Monocytes % 8.7 Eosinophils % 2.8 Basophils % 0.4 Nucleated RBC % 0 POC Glucometer 171 166 Blood Type Antibody Screen Crossmatch Active Medications Generic Name Dose Route Start Last Admin Trade Name Freq PRN Reason Stop Dose Admin Acetaminophen 650 mg 03/01/18 15:42 Tylenol - PO Q4H PRN FEVER Amino Acids 30 ml 03/05/18 17:30 03/14/18 08:51 Prosource No Carb Liquid Pkt PO 30 ml BID@0800,1730 [facility] Administration Artificial Tears 2 drop 03/01/18 22:00 03/14/18 10:02 Artificial Tears OU 2 drop BID [facility] Administration Atorvastatin Calcium 10 mg 03/01/18 22:00 03/13/18 23:18 Lipitor - GT 10 mg HS [facility] Administration Collagenase 1 applic 03/02/18 10:00 03/14/18 10:01 Santyl - TP 1 applic DAILY [facility] Administration Diltiazem HCl 10 mg 03/01/18 15:42 03/02/18 09:45 Cardizem Injection - IVPUSH 10 mg Q6H PRN Administration TACHYCARDIA Docusate Sodium 100 mg 03/01/18 15:42 Colace Liquid - PO DAILY PRN CONSTIPATION Ferrous Sulfate 300 mg 03/02/18 10:00 03/14/18 09:51 Feosol GT 300 mg DAILY [facility] Administration Insulin Aspart 1 vial 03/01/18 16:30 03/14/18 12:13 Novolog Vial Sliding Scale - SQ 2 units ACHS [facility] Administration Protocol Levothyroxine Sodium 37.5 mcg 03/02/18 07:00 03/14/18 06:24 Synthroid - PEG 37.5 mcg DAILY@0700 [facility] Administration Metoprolol Tartrate 25 mg 03/02/18 22:00 03/14/18 09:52 Lopressor - PO 25 mg BID [facility] Administration Non-Formulary Medication 1 each 03/02/18 10:00 03/14/18 10:00 Non-Formulary Med GT 1 each DAILY [facility] Administration Nystatin 1 applic 03/01/18 22:00 03/14/18 10:01 Nystop Powder - TP 1 applic BID [facility] Administration Oxybutynin Chloride 5 mg 03/01/18 22:00 03/14/18 09:51 Ditropan - NGT 5 mg BID [facility] Administration Pantoprazole Sodium 40 mg 03/02/18 10:00 03/14/18 09:51 Protonix Packets For Oral Suspension - NGT 40 mg DAILY [facility] Administration Senna 8.8 mg 03/02/18 22:00 03/13/18 23:18 Senna Oral Solution - GT 8.8 mg HS [facility] Administration Sertraline HCl 50 mg 03/02/18 21:25 03/14/18 09:52 Zoloft - PO 50 mg DAILY [facility] Administration Simethicone 40 mg 03/02/18 14:35 03/13/18 09:44 Mylicon Liquid - GT 40 mg QID PRN Administration CONSTIPATION Tamsulosin HCl 0.4 mg 03/02/18 08:30 03/14/18 10:00 Flomax - PO 0.4 mg DAILY@0830 [facility] Administration ASSESSMENT/PLAN: 87 year old male with a significant past medical history of diastolic heart failure, NIDDM, CKD, and 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 Admitted on 02/17/18 from [facility] chronic respiratory failure and severe anemia with a hg of 5.5 and hypotension. -PEG dislodgement on s/p replacement -Acute Upper GI bleed from Dileufoy lesion -Acute blood loss anemia s/p 7 units PRBCs -Acute on chronic vent dependent respiratory failure, likely aspiration PNA. 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 hemodynamics stable, no gross evidence of bleed or hemodynamic instability. h/h noted, monitor for now. Discussed with Dr. Diaz, monitor for now and continue PPI/carafate. s/p 1 unit PRBC 03/11. Avoid frequent blood draws. s/p PEG replacement. Abdominal xray results reviewed. Feeds resumed, tolerating well. Levamir d/tre. resume based on blood sugar readings. Continue ISS and glucerna. s/p 15 days of zosyn. S/p bactrim, off abx, ID input appreciated. At prior vent settings renal function continues to improve, renal input appreciated. DVTPPX with SCDs dispo pending to SNF in 1-2 days if no new concerns when arrangements made. Visit type - Emergency Visit Emergency Visit: Yes ED Registration Date: 02/17/18 Care time: The patient presented to the Emergency Department on the above date and was hospitalized for further evaluation of their emergent condition. - New Patient This patient is new to me today: No - Critical Care Critical Care patient: No - Discharge Referral Referred to [facility] Med P.C.: No
[2018-03-14] MEDS: ATORVASTATIN CA 10 MG TABLET (FP) GT SCH (23:25)
[2018-03-14] MEDS: SENNOSIDES 8.8 MG/5 ML BULK BOTTLE GT SCH (23:25)
[2018-03-15] MEDS: LEVOTHYROXINE NA 25 MCG TABLET (FP) PEG SCH (06:08)
[2018-03-15] MEDS: INSULIN SLIDING SCALE (NOVOLOG) 1 VIAL SQ SCH ×4 (06:09→23:07)
[2018-03-15 06:45] LABS: HEMATOCRIT 25.4 % (35.4-49); HEMOGLOBIN 8.6 GM/dL (11.7-16.9); MCH 30.1 pg (25.7-33.7); MCHC 33.7 g/dl (32.0-35.9); MEAN CELL VOLUME 89.4 fl (80-96); MEAN PLT VOLUME 8.9 fl (7.5-11.1); PLATELET COUNT 177 K/MM3 (134-434); RBC 2.84 M/mm3 (4.00-5.60); RDW 17.8 % (11.9-15.9)
[2018-03-15] MEDS: AMINO ACIDS/PROTEIN HYDROLYS 30 ML LIQUID.PKT PO SCH (07:59)
[2018-03-15] MEDS: TAMSULOSIN HCL 0.4 MG CAP.ER.24H (FP) PO SCH (07:59)
--- NOTE | 2018-03-15 08:10 | PN ---
Teaching Attending Note Name of Resident: Erica See ATTENDING PHYSICIAN STATEMENT I saw and evaluated the patient. I reviewed the resident's note and discussed the case with the resident. I agree with the resident's findings and plan as documented with exceptions below. SUBJECTIVE: Patient seen and examined, non verbal, eyes open, unable to assess for ROS. OBJECTIVE: Vital Signs Period Temp Pulse Resp BP Sys/Wills Pulse Ox Last 24 Hr 98.6 F-99.7 F 62-77 14-29 121-136/53-69 99-99 Intake & Output 03/12/18 03/13/18 03/14/18 03/15/18 23:59 23:59 23:59 23:59 Intake Total 2540 720 2050 1080 Output Total 1100 1600 1900 Balance 1440 -889 499 9012 Weight 163 lb 0.6 oz 163 lb 0.6 oz 164 lb 0.2 oz 163 lb 1 oz General: eyes open, no acute distress in bed Chest: limited exam, decreased air entry, no rales or wheezing appreciated Abdomen: soft, PEG in place, NT, no grimacing on deep palpation Extremities: no edema Active Medications Acetaminophen (Tylenol -) 650 mg PO Q4H PRN PRN Reason: FEVER Amino Acids (Prosource No Carb Liquid Pkt) 30 ml PO BID@0800,1730 [facility] Last Admin: 03/15/18 07:59 Dose: 30 ml Artificial Tears (Artificial Tears) 2 drop OU BID [facility] Last Admin: 03/14/18 23:24 Dose: 2 drop Atorvastatin Calcium (Lipitor -) 10 mg GT HS [facility] Last Admin: 03/14/18 23:25 Dose: 10 mg Collagenase (Santyl -) 1 applic TP DAILY [facility] Last Admin: 03/14/18 10:01 Dose: 1 applic Diltiazem HCl (Cardizem Injection -) 10 mg IVPUSH Q6H PRN PRN Reason: TACHYCARDIA Last Admin: 03/02/18 09:45 Dose: 10 mg Docusate Sodium (Colace Liquid -) 100 mg PO DAILY PRN PRN Reason: CONSTIPATION Ferrous Sulfate (Feosol) 300 mg GT DAILY [facility] Last Admin: 03/14/18 09:51 Dose: 300 mg Insulin Aspart (Novolog Vial Sliding Scale -) 1 vial SQ ACHS [facility]; Protocol Last Admin: 03/15/18 06:09 Dose: 4 units Levothyroxine Sodium (Synthroid -) 37.5 mcg PEG DAILY@0700 [facility] Last Admin: 03/15/18 06:08 Dose: 37.5 mcg Metoprolol Tartrate (Lopressor -) 25 mg PO BID [facility] Last Admin: 03/14/18 23:25 Dose: 25 mg Non-Formulary Medication (Non-Formulary Med) 1 each GT DAILY [facility] Last Admin: 03/14/18 10:00 Dose: 1 each Nystatin (Nystop Powder -) 1 applic TP BID [facility] Last Admin: 03/14/18 23:26 Dose: 1 applic Oxybutynin Chloride (Ditropan -) 5 mg NGT BID [facility] Last Admin: 03/14/18 23:25 Dose: 5 mg Pantoprazole Sodium (Protonix Packets For Oral Suspension -) 40 mg NGT DAILY [facility] Last Admin: 03/14/18 09:51 Dose: 40 mg Senna (Senna Oral Solution -) 8.8 mg GT HS [facility] Last Admin: 03/14/18 23:25 Dose: 8.8 mg Sertraline HCl (Zoloft -) 50 mg PO DAILY [facility] Last Admin: 03/14/18 09:52 Dose: 50 mg Simethicone (Mylicon Liquid -) 40 mg GT QID PRN PRN Reason: CONSTIPATION Last Admin: 03/13/18 09:44 Dose: 40 mg Tamsulosin HCl (Flomax -) 0.4 mg PO DAILY@0830 [facility] Last Admin: 03/15/18 07:59 Dose: 0.4 mg Laboratory Results - last 24 hr 03/11/18 03/14/18 03/14/18 08:50 08:10 12:10 WBC 5.3 RBC 2.83 L Hgb 8.4 L Hct 25.6 L MCV 90.4 MCH 29.6 MCHC 32.8 RDW 17.9 H Plt Count 149 MPV 9.0 Absolute Neuts (auto) 3.7 Neutrophils % 70.9 Lymphocytes % 17.2 Monocytes % 8.7 Eosinophils % 2.8 Basophils % 0.4 Nucleated RBC % 0 POC Glucometer 166 Blood Type O POSITIVE Antibody Screen Negative Crossmatch See Detail 03/14/18 03/14/18 03/15/18 17:06 23:23 05:55 WBC 6.0 RBC 2.84 L Hgb 8.6 L Hct 25.4 L MCV 89.4 MCH 30.1 MCHC 33.7 RDW 17.8 H Plt Count 177 MPV 8.9 Absolute Neuts (auto) Neutrophils % Lymphocytes % Monocytes % Eosinophils % Basophils % Nucleated RBC % POC Glucometer 179 197 Blood Type Antibody Screen Crossmatch 03/15/18 06:08 WBC RBC Hgb Hct MCV MCH MCHC RDW Plt Count MPV Absolute Neuts (auto) Neutrophils % Lymphocytes % Monocytes % Eosinophils % Basophils % Nucleated RBC % POC Glucometer 205 Blood Type Antibody Screen Crossmatch Microbiology 02/17/18 03:00 Blood - Peripheral Venous Blood Culture - Final NO GROWTH AFTER 5 DAYS INCUBATION 02/17/18 03:00 Blood - Peripheral Venous Blood Culture - Final NO GROWTH AFTER 5 DAYS INCUBATION 02/17/18 10:40 Sputum - Endotrachea Suction/Ventilator Gram Stain - Final 02/17/18 10:40 Sputum - Endotrachea Suction/Ventilator Sputum Culture - Final Pseudomonas Aeruginosa Pseudo Fluorescens/[place] 02/16/18 23:40 Urine - Urine Clean Catch Urine Culture - Final NO GROWTH OBTAINED ASSESSMENT AND PLAN: 87 year old male with a significant past medical history of diastolic heart failure, NIDDM, CKD, and 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 Admitted on 02/17/18 from [facility] chronic respiratory failure and severe anemia with a hg of 5.5 and hypotension. -PEG dislodgement on s/p replacement -Acute Upper GI bleed from Dileufoy lesion -Acute blood loss anemia s/p 7 units PRBCs -Acute on chronic vent dependent respiratory failure, likely aspiration PNA. 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 hemodynamics stable, no gross evidence of bleed or hemodynamic instability. Discussed with Dr. Diaz, monitor for now and continue PPI/carafate. s/p 1 unit PRBC 03/11. Avoid frequent blood draws, Interval labs as indicated. s/p PEG replacement.Feeds resumed, tolerating well. Continue ISS and glucerna. BLood sugars noted, Resume levemir at 5 units hs. s/p 15 days of zosyn. S/p bactrim, off abx, ID input appreciated. At prior vent settings renal function continues to improve, renal input appreciated. DVTPPX with SCDs dispo discussed with CM, medically appropriate for d/c to vent facility. d/c when arrangements made and bed available.
[2018-03-15] MEDS ORDERED: PT OWN MED DRAWER 7, Y5N ONE ×2 (08:48→14:30)
[2018-03-15] MEDS: FERROUS SO4 300 MG/5 ML ORAL SOLN UNIT DOSE CUPS GT SCH (09:00)
[2018-03-15] MEDS: ARTIFICIAL TEARS (POLYVINYL ALCOHOL 1.4%) OPTH DROPS OU SCH ×2 (09:00→23:03)
[2018-03-15] MEDS: SERTRALINE HCL 25 MG TABLET (FP) PO SCH (09:00)
[2018-03-15] MEDS: OXYBUTYNIN CHLORIDE 5 MG TABLET NGT SCH ×2 (09:01→23:04)
[2018-03-15] MEDS: PANTOPRAZOLE SOD 40 MG SUSPENSION PACKET NGT SCH (09:01)
[2018-03-15] MEDS: METOPROLOL TARTRATE 25 MG TABLET (FP) PO SCH ×2 (09:01→23:04)
[2018-03-15] MEDS: NON-FORMULARY MED GT SCH (09:02)
[2018-03-15] MEDS: NYSTATIN POWDER 100,000 UNITS/GM - 15 GM TOPICAL POWDER TP SCH ×2 (09:08→23:09)
--- NOTE | 2018-03-15 12:09 | PN ---
Progress Note, Physician History of Present Illness: PULMONARY AWAKE,ON VENT SUPPORT ON AC MODE - Current Medication List Current Medications: Active Medications Acetaminophen (Tylenol -) 650 mg PO Q4H PRN PRN Reason: FEVER Amino Acids (Prosource No Carb Liquid Pkt) 30 ml PO BID@0800,1730 [facility] Last Admin: 03/15/18 07:59 Dose: 30 ml Artificial Tears (Artificial Tears) 2 drop OU BID [facility] Last Admin: 03/15/18 09:00 Dose: 2 drop Atorvastatin Calcium (Lipitor -) 10 mg GT HS [facility] Last Admin: 03/14/18 23:25 Dose: 10 mg Collagenase (Santyl -) 1 applic TP DAILY [facility] Last Admin: 03/14/18 10:01 Dose: 1 applic Diltiazem HCl (Cardizem Injection -) 10 mg IVPUSH Q6H PRN PRN Reason: TACHYCARDIA Last Admin: 03/02/18 09:45 Dose: 10 mg Docusate Sodium (Colace Liquid -) 100 mg PO DAILY PRN PRN Reason: CONSTIPATION Ferrous Sulfate (Feosol) 300 mg GT DAILY [facility] Last Admin: 03/15/18 09:00 Dose: 300 mg Insulin Aspart (Novolog Vial Sliding Scale -) 1 vial SQ [facility]; Protocol Last Admin: 03/15/18 06:09 Dose: 4 units Insulin Detemir (Levemir Vial) 5 units SQ [facility] Levothyroxine Sodium (Synthroid -) 37.5 mcg PEG DAILY@0700 [facility] Last Admin: 03/15/18 06:08 Dose: 37.5 mcg Metoprolol Tartrate (Lopressor -) 25 mg PO BID [facility] Last Admin: 03/15/18 09:01 Dose: 25 mg Non-Formulary Medication (Non-Formulary Med) 1 each GT DAILY [facility] Last Admin: 03/15/18 09:02 Dose: 1 each Nystatin (Nystop Powder -) 1 applic TP BID [facility] Last Admin: 03/15/18 09:08 Dose: 1 applic Oxybutynin Chloride (Ditropan -) 5 mg NGT BID [facility] Last Admin: 03/15/18 09:01 Dose: 5 mg Pantoprazole Sodium (Protonix Packets For Oral Suspension -) 40 mg NGT DAILY [facility] Last Admin: 03/15/18 09:01 Dose: 40 mg Senna (Senna Oral Solution -) 8.8 mg GT HS [facility] Last Admin: 03/14/18 23:25 Dose: 8.8 mg Sertraline HCl (Zoloft -) 50 mg PO DAILY [facility] Last Admin: 03/15/18 09:00 Dose: 50 mg Simethicone (Mylicon Liquid -) 40 mg GT QID PRN PRN Reason: CONSTIPATION Last Admin: 03/13/18 09:44 Dose: 40 mg Tamsulosin HCl (Flomax -) 0.4 mg PO DAILY@0830 [facility] Last Admin: 03/15/18 07:59 Dose: 0.4 mg - Objective Vital Signs: Vital Signs Temperature 99.3 F 03/15/18 09:31 Pulse Rate 62 03/15/18 09:31 Respiratory Rate 16 03/15/18 11:23 Blood Pressure 142/57 03/15/18 09:31 O2 Sat by Pulse Oximetry (%) 99 03/14/18 21:00 Constitutional: Yes: Well Nourished, Calm Eyes: Yes: WNL HENT: Yes: WNL Neck: Yes: WNL Cardiovascular: Yes: Pulse Irregular, S1, S2 Respiratory: Yes: Rhonchi (FEW RHONCHI) Gastrointestinal: Yes: Normal Bowel Sounds, Soft Extremities: Yes: WNL Edema: No Labs: CBC, [facility] 03/15/18 05:55 Problem List - Problems (1) Anemia Code(s): D64.9 - ANEMIA, UNSPECIFIED (2) Chronic kidney disease, stage 3 Code(s): N18.3 - CHRONIC KIDNEY DISEASE, STAGE 3 (MODERATE) (3) Chronic respiratory failure Code(s): J96.10 - CHRONIC RESPIRATORY FAILURE, UNSP W HYPOXIA OR HYPERCAPNIA Qualifiers: Respiratory failure complication: unspecified whether with hypoxia or hypercapnia Qualified Code(s): J96.10 - Chronic respiratory failure, unspecified whether with hypoxia or hypercapnia (4) PAF (paroxysmal atrial fibrillation) Code(s): I48.0 - PAROXYSMAL ATRIAL FIBRILLATION (5) Renal failure Code(s): N19 - UNSPECIFIED KIDNEY FAILURE Qualifiers: Renal failure chronicity: unspecified chronicity Qualified Code(s): N19 - Unspecified kidney failure (6) Diabetes Code(s): E11.9 - TYPE 2 DIABETES MELLITUS WITHOUT COMPLICATIONS Qualifiers: Diabetes mellitus type: type 2 Diabetes mellitus shelter insulin use: unspecified shelter insulin use status Diabetes mellitus complication status : with kidney complications Diabetes mellitus complication detail: with chronic kidney disease Chronic kidney disease stage: stage 3 (moderate) Qualified Code(s): E11.22 - Type 2 diabetes mellitus with diabetic chronic kidney disease; N18.3 - Chronic kidney disease, stage 3 (moderate) (7) TBI (traumatic brain injury) Code(s): S06.9X9A - UNSP INTRACRANIAL INJURY W LOC OF UNSP DURATION, INIT Qualifiers: Encounter type: sequela Loss of consciousness presence/duration: with LOC of unspecified duration Qualified Code(s): S06.9X9S - Unspecified intracranial injury with loss of consciousness of unspecified duration, sequela (8) Lzrgf-gy-hadgvtp kidney injury Code(s): N17.9 - ACUTE KIDNEY FAILURE, UNSPECIFIED; N18.9 - CHRONIC KIDNEY DISEASE, UNSPECIFIED (9) Fooij-fx-wlaxxfs renal failure Code(s): N17.9 - ACUTE KIDNEY FAILURE, UNSPECIFIED; N18.9 - CHRONIC KIDNEY DISEASE, UNSPECIFIED Qualifiers: Acute renal failure type: unspecified Chronic kidney disease stage: stage 3 (moderate) Qualified Code(s): N17.9 - Acute kidney failure, unspecified; N18.3 - Chronic kidney disease, stage 3 (moderate) (10) Hypotension Code(s): I95.9 - HYPOTENSION, UNSPECIFIED (11) Hypotension Code(s): I95.9 - HYPOTENSION, UNSPECIFIED Assessment/Plan ASSESSMENT AND PLAN: GI Bleed/Gastric Dieulafoy Lesion s/p EGD/epi/cautery Acute Blood Loss Anemia Chronic Respiratory Failure Pneumonia h/o Traumatic Brain Injury Functional Quadriplegia Acute on Chronic Renal Failure Atrial Fibrillation DM Dementia Elevated LFTs - monitor H/H - protonix - rate control - holding anticoagulation - volume assist control - enteral feeds as tolerated - DVT/GI prophylaxis - monitor LFTs DR FORMAN
--- NOTE | 2018-03-15 12:42 | PN ---
Progress Note, Physician History of Present Illness: 87M w/ pmh of traumatic fall (s/p neck (C4,5, and 6)/back surgery, tracheotomy placement now ventilator dependent, and PEG tube placement), frequent pneumonia , emphysema, A-fib, CHF, DM, dementia, renal failure, nonverbal TBI, paraplegia , and legal blindness and deafness, who presents to the emergency department via EMS from [facility] with 3 days of hypotension. As per patients son , his blood pressure has been decreasing over the past few days. He reports that at baseline, his systolic is between 110-119 in the mornings and between 100-109 at night. Pt has failed 5 weaning trials in the last few days, and it was noticed that there was blood around the tracheostomy site when suctioning. Pt' son denies recent fevers, chills, chest pain, emesis, hematemesis, melena, and hematochezia in pt. - Current Medication List Current Medications: Active Medications Acetaminophen (Tylenol -) 650 mg PO Q4H PRN PRN Reason: FEVER Amino Acids (Prosource No Carb Liquid Pkt) 30 ml PO BID@0800,1730 [facility] Last Admin: 03/15/18 07:59 Dose: 30 ml Artificial Tears (Artificial Tears) 2 drop OU BID [facility] Last Admin: 03/15/18 09:00 Dose: 2 drop Atorvastatin Calcium (Lipitor -) 10 mg GT HS [facility] Last Admin: 03/14/18 23:25 Dose: 10 mg Collagenase (Santyl -) 1 applic TP DAILY [facility] Last Admin: 03/14/18 10:01 Dose: 1 applic Diltiazem HCl (Cardizem Injection -) 10 mg IVPUSH Q6H PRN PRN Reason: TACHYCARDIA Last Admin: 03/02/18 09:45 Dose: 10 mg Docusate Sodium (Colace Liquid -) 100 mg PO DAILY PRN PRN Reason: CONSTIPATION Ferrous Sulfate (Feosol) 300 mg GT DAILY [facility] Last Admin: 03/15/18 09:00 Dose: 300 mg Insulin Aspart (Novolog Vial Sliding Scale -) 1 vial SQ [facility]; Protocol Last Admin: 03/15/18 06:09 Dose: 4 units Insulin Detemir (Levemir Vial) 5 units SQ [facility] Levothyroxine Sodium (Synthroid -) 37.5 mcg PEG DAILY@0700 [facility] Last Admin: 03/15/18 06:08 Dose: 37.5 mcg Metoprolol Tartrate (Lopressor -) 25 mg PO BID [facility] Last Admin: 03/15/18 09:01 Dose: 25 mg Non-Formulary Medication (Non-Formulary Med) 1 each GT DAILY [facility] Last Admin: 03/15/18 09:02 Dose: 1 each Nystatin (Nystop Powder -) 1 applic TP BID [facility] Last Admin: 03/15/18 09:08 Dose: 1 applic Oxybutynin Chloride (Ditropan -) 5 mg NGT BID [facility] Last Admin: 03/15/18 09:01 Dose: 5 mg Pantoprazole Sodium (Protonix Packets For Oral Suspension -) 40 mg NGT DAILY [facility] Last Admin: 03/15/18 09:01 Dose: 40 mg Senna (Senna Oral Solution -) 8.8 mg GT HS [facility] Last Admin: 03/14/18 23:25 Dose: 8.8 mg Sertraline HCl (Zoloft -) 50 mg PO DAILY [facility] Last Admin: 03/15/18 09:00 Dose: 50 mg Simethicone (Mylicon Liquid -) 40 mg GT QID PRN PRN Reason: CONSTIPATION Last Admin: 03/13/18 09:44 Dose: 40 mg Tamsulosin HCl (Flomax -) 0.4 mg PO DAILY@0830 [facility] Last Admin: 03/15/18 07:59 Dose: 0.4 mg - Objective Vital Signs: Vital Signs Temperature 99.3 F 03/15/18 09:31 Pulse Rate 62 03/15/18 09:31 Respiratory Rate 16 03/15/18 11:23 Blood Pressure 142/57 03/15/18 09:31 O2 Sat by Pulse Oximetry (%) 99 03/14/18 21:00 Eyes: Yes: WNL, Conjunctiva Clear, EOM Intact HENT: Yes: WNL, Atraumatic, Normocephalic Neck: Yes: WNL, Supple, Trachea Midline Cardiovascular: Yes: WNL, Regular Rate and Rhythm Respiratory: Yes: Mechanically Ventilated Gastrointestinal: Yes: WNL, Normal Bowel Sounds Genitourinary: Yes: WNL Musculoskeletal: Yes: WNL Extremities: Yes: WNL Edema: No Integumentary: Yes: WNL ...Motor Strength: WNL Psychiatric: Yes: WNL Labs: CBC, BMP 03/15/18 05:55 03/13/18 06:20 INR, PTT INR 1.13 (0.82-1.09) 02/16/18 22:40
[2018-03-15] MEDS: COLLAGENASE CLOSTRIDIUM HIST. 30 GRAMS TUBE TP SCH (14:31)
--- NOTE | 2018-03-15 15:09 | PN ---
Progress Note, Physician History of Present Illness: stable awake comfortable on vent - Current Medication List Current Medications: Active Medications Acetaminophen (Tylenol -) 650 mg PO Q4H PRN PRN Reason: FEVER Amino Acids (Prosource No Carb Liquid Pkt) 30 ml PO DAILY@0800 [facility] Artificial Tears (Artificial Tears) 2 drop OU BID [facility] Last Admin: 03/15/18 09:00 Dose: 2 drop Atorvastatin Calcium (Lipitor -) 10 mg GT HS [facility] Last Admin: 03/14/18 23:25 Dose: 10 mg Collagenase (Santyl -) 1 applic TP DAILY [facility] Last Admin: 03/15/18 14:31 Dose: 1 applic Diltiazem HCl (Cardizem Injection -) 10 mg IVPUSH Q6H PRN PRN Reason: TACHYCARDIA Last Admin: 03/02/18 09:45 Dose: 10 mg Docusate Sodium (Colace Liquid -) 100 mg PO DAILY PRN PRN Reason: CONSTIPATION Ferrous Sulfate (Feosol) 300 mg GT DAILY [facility] Last Admin: 03/15/18 09:00 Dose: 300 mg Insulin Aspart (Novolog Vial Sliding Scale -) 1 vial SQ [facility]; Protocol Last Admin: 03/15/18 12:44 Dose: Not Given Insulin Detemir (Levemir Vial) [address] [facility] Levothyroxine Sodium (Synthroid -) 37.5 mcg PEG DAILY@0700 [facility] Last Admin: 03/15/18 06:08 Dose: 37.5 mcg Metoprolol Tartrate (Lopressor -) 25 mg PO BID [facility] Last Admin: 03/15/18 09:01 Dose: 25 mg Non-Formulary Medication (Non-Formulary Med) 1 each GT DAILY [facility] Last Admin: 03/15/18 09:02 Dose: 1 each Nystatin (Nystop Powder -) 1 applic TP BID [facility] Last Admin: 03/15/18 09:08 Dose: 1 applic Oxybutynin Chloride (Ditropan -) 5 mg NGT BID [facility] Last Admin: 03/15/18 09:01 Dose: 5 mg Pantoprazole Sodium (Protonix Packets For Oral Suspension -) 40 mg NGT DAILY [facility] Last Admin: 03/15/18 09:01 Dose: 40 mg Senna (Senna Oral Solution -) 8.[address] [facility] Last Admin: 03/14/18 23:25 Dose: 8.8 mg Sertraline HCl (Zoloft -) 50 mg PO DAILY [facility] Last Admin: 03/15/18 09:00 Dose: 50 mg Simethicone (Mylicon Liquid -) 40 mg GT QID PRN PRN Reason: CONSTIPATION Last Admin: 03/13/18 09:44 Dose: 40 mg Tamsulosin HCl (Flomax -) 0.4 mg PO DAILY@0830 [facility] Last Admin: 03/15/18 07:59 Dose: 0.4 mg - Objective Vital Signs: Vital Signs Temperature 99.3 F 03/15/18 09:31 Pulse Rate 62 03/15/18 09:31 Respiratory Rate 14 03/15/18 14:02 Blood Pressure 142/57 03/15/18 09:31 O2 Sat by Pulse Oximetry (%) 100 03/15/18 09:00 Constitutional: Yes: No Distress, Calm Cardiovascular: Yes: Pulse Irregular Respiratory: Yes: Mechanically Ventilated, Other Gastrointestinal: Yes: Normal Bowel Sounds, Soft, Other (peg in place) Labs: CBC, BMP 03/15/18 05:55 03/13/18 06:20 INR, PTT INR 1.13 (0.82-1.09) 02/16/18 22:40 Assessment/Plan Problem List - Problems (1) Anemia Code(s): D64.9 - ANEMIA, UNSPECIFIED (2) Chronic kidney disease, stage 3 Code(s): N18.3 - CHRONIC KIDNEY DISEASE, STAGE 3 (MODERATE) (3) Chronic respiratory failure Code(s): J96.10 - CHRONIC RESPIRATORY FAILURE, UNSP W HYPOXIA OR HYPERCAPNIA Qualifiers: Respiratory failure complication: unspecified whether with hypoxia or hypercapnia Qualified Code(s): J96.10 - Chronic respiratory failure, unspecified whether with hypoxia or hypercapnia (4) PAF (paroxysmal atrial fibrillation) Code(s): I48.0 - PAROXYSMAL ATRIAL FIBRILLATION (5) Renal failure Code(s): N19 - UNSPECIFIED KIDNEY FAILURE Qualifiers: Renal failure chronicity: unspecified chronicity Qualified Code(s): N19 - Unspecified kidney failure (6) Diabetes Code(s): E11.9 - TYPE 2 DIABETES MELLITUS WITHOUT COMPLICATIONS (7) TBI (traumatic brain injury) Code(s): S06.9X9A - UNSP INTRACRANIAL INJURY W LOC OF UNSP DURATION, INIT (8) Aopkh-fd-bzwlqct kidney injury Code(s): N17.9 - ACUTE KIDNEY FAILURE, UNSPECIFIED; N18.9 - CHRONIC KIDNEY DISEASE, UNSPECIFIED (9) Nnkbq-ky-jgdcirg renal failure Code(s): N17.9 - ACUTE KIDNEY FAILURE, UNSPECIFIED; N18.9 - CHRONIC KIDNEY DISEASE, UNSPECIFIED (10) Hypotension Code(s): I95.9 - HYPOTENSION, UNSPECIFIED (11) Hypotension Code(s): I95.9 - HYPOTENSION, UNSPECIFIED 12 gi bleed 13 difuleoy lesion 14 rash I plan continue to monitor off of abx nutrition rest as per primary care as per pul suctioning if needed final plan awaited watch liver enzymes
--- NOTE | 2018-03-15 15:10 | PN ---
Progress Note, Physician - Current Medication List Current Medications: Active Medications Acetaminophen (Tylenol -) 650 mg PO Q4H PRN PRN Reason: FEVER Amino Acids (Prosource No Carb Liquid Pkt) 30 ml PO DAILY@0800 [facility] Artificial Tears (Artificial Tears) 2 drop OU BID [facility] Last Admin: 03/15/18 09:00 Dose: 2 drop Atorvastatin Calcium (Lipitor -) 10 mg GT HS [facility] Last Admin: 03/14/18 23:25 Dose: 10 mg Collagenase (Santyl -) 1 applic TP DAILY [facility] Last Admin: 03/15/18 14:31 Dose: 1 applic Diltiazem HCl (Cardizem Injection -) 10 mg IVPUSH Q6H PRN PRN Reason: TACHYCARDIA Last Admin: 03/02/18 09:45 Dose: 10 mg Docusate Sodium (Colace Liquid -) 100 mg PO DAILY PRN PRN Reason: CONSTIPATION Ferrous Sulfate (Feosol) 300 mg GT DAILY [facility] Last Admin: 03/15/18 09:00 Dose: 300 mg Insulin Aspart (Novolog Vial Sliding Scale -) 1 vial SQ [facility]; Protocol Last Admin: 03/15/18 12:44 Dose: Not Given Insulin Detemir (Levemir Vial) 5 units SQ [facility] Levothyroxine Sodium (Synthroid -) 37.5 mcg PEG DAILY@0700 [facility] Last Admin: 03/15/18 06:08 Dose: 37.5 mcg Metoprolol Tartrate (Lopressor -) 25 mg PO BID [facility] Last Admin: 03/15/18 09:01 Dose: 25 mg Non-Formulary Medication (Non-Formulary Med) 1 each GT DAILY [facility] Last Admin: 03/15/18 09:02 Dose: 1 each Nystatin (Nystop Powder -) 1 applic TP BID [facility] Last Admin: 03/15/18 09:08 Dose: 1 applic Oxybutynin Chloride (Ditropan -) 5 mg NGT BID [facility] Last Admin: 03/15/18 09:01 Dose: 5 mg Pantoprazole Sodium (Protonix Packets For Oral Suspension -) 40 mg NGT DAILY [facility] Last Admin: 03/15/18 09:01 Dose: 40 mg Senna (Senna Oral Solution -) 8.8 mg GT [facility] Last Admin: 03/14/18 23:25 Dose: 8.8 mg Sertraline HCl (Zoloft -) 50 mg PO DAILY [facility] Last Admin: 03/15/18 09:00 Dose: 50 mg Simethicone (Mylicon Liquid -) 40 mg GT QID PRN PRN Reason: CONSTIPATION Last Admin: 03/13/18 09:44 Dose: 40 mg Tamsulosin HCl (Flomax -) 0.4 mg PO DAILY@0830 [facility] Last Admin: 03/15/18 07:59 Dose: 0.4 mg - Objective Vital Signs: Vital Signs Temperature 99.3 F 03/15/18 09:31 Pulse Rate 62 03/15/18 09:31 Respiratory Rate 14 03/15/18 14:02 Blood Pressure 142/57 03/15/18 09:31 O2 Sat by Pulse Oximetry (%) 100 03/15/18 09:00 Labs: CBC, BMP 03/15/18 05:55 03/13/18 06:20 INR, PTT INR 1.13 (0.82-1.09) 02/16/18 22:40
[2018-03-15] MEDS: ACETAMINOPHEN 325 MG TABLET (FP) PO PRN (17:24)
--- NOTE | 2018-03-15 18:16 | PN ---
Physical Exam: SUBJECTIVE: Patient seen and examined resting comfortably on bed. Patient opens his eyes to verbal command. No acute overnight events as per nursing. OBJECTIVE: Vital Signs Period Temp Pulse Resp BP Sys/Wills Pulse Ox Last 24 Hr 98.6 F-99.8 F 62-71 14-29 119-142/53-69 99-100 GENERAL: Resting comfortably, Nonverbal but easily awakens LUNGS: Mechanical Breath sounds anteriorly, decreased effort HEART: Regular rate and rhythm, S1, S2 without murmur, rub or gallop ABDOMEN: Soft, normoactive bowel sounds, PEG tube present without bleeding, drainage or erythema NEUROLOGICAL: Upper extremities contracted b/l Laboratory Results - last 24 hr 03/14/18 03/15/18 03/15/18 23:23 05:55 06:08 WBC 6.0 RBC 2.84 L Hgb 8.6 L Hct 25.4 L MCV 89.4 MCH 30.1 MCHC 33.7 RDW 17.8 H Plt Count 177 MPV 8.9 POC Glucometer 197 205 03/15/18 03/15/18 12:43 16:34 WBC RBC Hgb Hct MCV MCH MCHC RDW Plt Count MPV POC Glucometer 130 176 Active Medications Acetaminophen (Tylenol -) 650 mg PO Q4H PRN PRN Reason: FEVER Last Admin: 03/15/18 17:24 Dose: 650 mg Amino Acids (Prosource No Carb Liquid Pkt) 30 ml PO DAILY@0800 [facility] Artificial Tears (Artificial Tears) 2 drop OU BID [facility] Last Admin: 03/15/18 09:00 Dose: 2 drop Atorvastatin Calcium (Lipitor -) 10 mg GT HS [facility] Last Admin: 03/14/18 23:25 Dose: 10 mg Collagenase (Santyl -) 1 applic TP DAILY [facility] Last Admin: 03/15/18 14:31 Dose: 1 applic Diltiazem HCl (Cardizem Injection -) 10 mg IVPUSH Q6H PRN PRN Reason: TACHYCARDIA Last Admin: 03/02/18 09:45 Dose: 10 mg Docusate Sodium (Colace Liquid -) 100 mg PO DAILY PRN PRN Reason: CONSTIPATION Ferrous Sulfate (Feosol) 300 mg GT DAILY [facility] Last Admin: 03/15/18 09:00 Dose: 300 mg Insulin Aspart (Novolog Vial Sliding Scale -) 1 vial SQ [facility]; Protocol Last Admin: 03/15/18 16:35 Dose: 2 units Insulin Detemir (Levemir Vial) 5 units SQ [facility] Levothyroxine Sodium (Synthroid -) 37.5 mcg PEG DAILY@0700 [facility] Last Admin: 03/15/18 06:08 Dose: 37.5 mcg Metoprolol Tartrate (Lopressor -) 25 mg PO BID [facility] Last Admin: 03/15/18 09:01 Dose: 25 mg Non-Formulary Medication (Non-Formulary Med) 1 each GT DAILY [facility] Last Admin: 03/15/18 09:02 Dose: 1 each Nystatin (Nystop Powder -) 1 applic TP BID [facility] Last Admin: 03/15/18 09:08 Dose: 1 applic Oxybutynin Chloride (Ditropan -) 5 mg NGT BID [facility] Last Admin: 03/15/18 09:01 Dose: 5 mg Pantoprazole Sodium (Protonix Packets For Oral Suspension -) 40 mg NGT DAILY [facility] Last Admin: 03/15/18 09:01 Dose: 40 mg Senna (Senna Oral Solution -) 8.8 mg GT HS [facility] Last Admin: 03/14/18 23:25 Dose: 8.8 mg Sertraline HCl (Zoloft -) 50 mg PO DAILY [facility] Last Admin: 03/15/18 09:00 Dose: 50 mg Simethicone (Mylicon Liquid -) 40 mg GT QID PRN PRN Reason: CONSTIPATION Last Admin: 03/13/18 09:44 Dose: 40 mg Tamsulosin HCl (Flomax -) 0.4 mg PO DAILY@0830 [facility] Last Admin: 03/15/18 07:59 Dose: 0.4 mg ASSESSMENT/PLAN: 87 year old male with a PMHx significant for Diastolic heart failure, NIDDM, CKD , and 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 Admitted on 02/17/18 from [facility] for chronic respiratory failure and severe anemia with a hg of 5.5 and hypotension. 1. Multifactorial anemia with UGIB - s/p EGD with Diluefoy lesion - s/p heat probe and epi - s/p 10 units PRBC this hospital stay - Hgb currently stable, 8.5 this morning, No signs of Active bleeding - 1 Unit Packed RBC Transfused on 03/11 - GI (Dr. Diaz) Consulted, appreciate recommendations, - Glucerna Tube feeds being tolerated well - Experiences recurrent hypoglycemia in the morning, discontinued levemir currently, will continue to monitor - Abdominal XRay: : Functional PEG tube with tip in stomach. No sign of obstruction or leak - Family concerned for abdominal bloating, Serial abdomen exams, continue to monitor - Hematology consulted, Appreciate recommendations - Continue Ferrous Sulfate 300 mg GT DAILY [facility] 2. Acute on chronic respiratory failure - Due to aspiration PNA that has now improved, patient has returned to baseline vent settings - Not weanable due to poor mental status - Pulmonary (Dr. Perez) consulted, Appreciate recommendations 3. Aspiration PNA - Completed course of Zosyn, Not on any other ABx - ID (Dr. Garaz) consulted, Appreciate recommendations 4. Acute Transaminitis - AST/ALT Trending down - Has hx of similar episode on 02/01/18 that self-resolved - Will continue to monitor 5. Acute on CKD - Hypoperfusion - BUN remains elevated, likely due to GI bleed - Cr remains elevated - No longer on steroids - Will continue to monitor - Nephrology consulted, Appreciate recommendations 6. New onset Afib - rate controlled, Continue Metoprolol Tartrate 25 mg PO BID [facility] - Not a candidate for anticoagulation due to recent GI bleed - Cardiology consulted, Appreciate recommendations 7. Hypernatremia - resolved - will continue water flushes and monitor 8. Thrombophilia - stable off medications 9. DM - Improved - Continue Insulin Aspart SQ [facility] - Continue Insulin Detemir SQ HS [facility] 10. 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 Hypothyroid - Continue Synthroid 37.5 mcg PEG DAILY @ 0700 [facility] 12. Urinary incontinence - Chronic indwelling christopher. cont oxybutin/flomax - Continue Flomax 0.4 mg PO DAILY@0830 [facility] - Continue Oxybutynin Chloride 5 mg BID [facility] 13. Depression - Continue on Sertraline HCl 50 mg PO DAILY [facility] 14. DVT ppx - SCD - Not a candidate for anticoagulation due to recent GI Bleed Visit type - Emergency Visit Emergency Visit: No - New Patient This patient is new to me today: No - Critical Care Critical Care patient: No
[2018-03-15] MEDS: INSULIN (LEVEMIR) 100 UNITS/ML UNITS SQ SCH (23:04)
[2018-03-15] MEDS: ATORVASTATIN CA 10 MG TABLET (FP) GT SCH (23:04)
[2018-03-15] MEDS: SENNOSIDES 8.8 MG/5 ML BULK BOTTLE GT SCH (23:08)
[2018-03-16] MEDS: LEVOTHYROXINE NA 25 MCG TABLET (FP) PEG SCH (06:27)
[2018-03-16] MEDS: INSULIN SLIDING SCALE (NOVOLOG) 1 VIAL SQ SCH ×4 (06:27→22:38)
[2018-03-16 07:51] LABS: ALBUMIN 1.8 g/dl (3.4-5.0); ALK PHOS 168 U/L (45-117); ANION GAP 8 (8-16); BILIRUBIN,TOTAL 0.2 mg/dL (0.2-1.0); BLOOD UREA NITROGEN 83 mg/dL (7-18); CHLORIDE 104 mmol/L (98-107); CO2 28 mmol/L (21-32); CREATININE 1.5 mg/dL (0.7-1.3); GLUCOSE,RANDOM 120 mg/dL (74-106); POTASSIUM 4.6 mmol/L (3.5-5.1); SGOT/AST 51 U/L (15-37); SGPT/ALT 71 U/L (12-78); SODIUM 140 mmol/L (136-145); TOT PROT 5.5 g/dl (6.4-8.2)
[2018-03-16] MEDS: AMINO ACIDS/PROTEIN HYDROLYS 30 ML LIQUID.PKT PO SCH (09:09)
[2018-03-16] MEDS: TAMSULOSIN HCL 0.4 MG CAP.ER.24H (FP) PO SCH (09:09)
[2018-03-16] MEDS: OXYBUTYNIN CHLORIDE 5 MG TABLET NGT SCH ×2 (09:51→22:15)
[2018-03-16] MEDS: FERROUS SO4 300 MG/5 ML ORAL SOLN UNIT DOSE CUPS GT SCH (09:51)
[2018-03-16] MEDS: SERTRALINE HCL 25 MG TABLET (FP) PO SCH (09:51)
[2018-03-16] MEDS: METOPROLOL TARTRATE 25 MG TABLET (FP) PO SCH ×2 (09:51→22:15)
[2018-03-16] MEDS: ARTIFICIAL TEARS (POLYVINYL ALCOHOL 1.4%) OPTH DROPS OU SCH ×2 (09:52→22:14)
[2018-03-16] MEDS: PANTOPRAZOLE SOD 40 MG SUSPENSION PACKET NGT SCH (09:52)
[2018-03-16] MEDS: NON-FORMULARY MED GT SCH (10:15)
[2018-03-16] MEDS ORDERED: INSULIN (NOVOLOG) ASPART 100 UNITS/ML 10ML VIAL ONE ×2 (11:13→20:41)
[2018-03-16] MEDS: COLLAGENASE CLOSTRIDIUM HIST. 30 GRAMS TUBE TP SCH (11:55)
[2018-03-16] MEDS: NYSTATIN POWDER 100,000 UNITS/GM - 15 GM TOPICAL POWDER TP SCH ×2 (12:11→22:16)
--- NOTE | 2018-03-16 12:46 | PN ---
Progress Note (short form) - Note Progress Note: Awake on AC Mode of vent, 28% FiO2. NAD. No acute events overnight. Intake & Output 03/13/18 03/14/18 03/15/18 03/16/18 23:59 23:59 23:59 23:59 Intake Total 720 2050 2180 1150 Output Total 1600 1900 1150 400 Balance -137 463 1364 750 Weight 163 lb 0.6 oz 164 lb 0.2 oz 163 lb 1 oz 162 lb 1 oz Last Vital Signs Temp Pulse Resp BP Pulse Ox 98.2 F 62 14 137/66 100 03/16/18 10:00 03/16/18 10:00 03/16/18 12:40 03/16/18 10:00 03/15/18 09:00 Active Medications Acetaminophen (Tylenol -) 650 mg PO Q4H PRN PRN Reason: FEVER Last Admin: 03/15/18 17:24 Dose: 650 mg Amino Acids (Prosource No Carb Liquid Pkt) 30 ml PO DAILY@0800 [facility] Last Admin: 03/16/18 09:09 Dose: 30 ml Artificial Tears (Artificial Tears) 2 drop OU BID [facility] Last Admin: 03/16/18 09:52 Dose: 2 drop Atorvastatin Calcium (Lipitor -) 10 mg GT HS [facility] Last Admin: 03/15/18 23:04 Dose: 10 mg Collagenase (Santyl -) 1 applic TP DAILY [facility] Last Admin: 03/16/18 11:55 Dose: 1 applic Diltiazem HCl (Cardizem Injection -) 10 mg IVPUSH Q6H PRN PRN Reason: TACHYCARDIA Last Admin: 03/02/18 09:45 Dose: 10 mg Docusate Sodium (Colace Liquid -) 100 mg PO DAILY PRN PRN Reason: CONSTIPATION Ferrous Sulfate (Feosol) 300 mg GT DAILY [facility] Last Admin: 03/16/18 09:51 Dose: 300 mg Insulin Aspart (Novolog Vial Sliding Scale -) 1 vial SQ [facility]; Protocol Last Admin: 03/16/18 11:45 Dose: 4 units Insulin Detemir (Levemir Vial) 5 units SQ [facility] Last Admin: 03/15/18 23:04 Dose: 5 units Levothyroxine Sodium (Synthroid -) 37.5 mcg PEG DAILY@0700 [facility] Last Admin: 07/10/18 06:27 Dose: 37.5 mcg Metoprolol Tartrate (Lopressor -) 25 mg PO BID [facility] Last Admin: 03/16/18 09:51 Dose: 25 mg Non-Formulary Medication (Non-Formulary Med) 1 each GT DAILY [facility] Last Admin: 03/16/18 10:15 Dose: 1 each Nystatin (Nystop Powder -) 1 applic TP BID [facility] Last Admin: 03/16/18 12:11 Dose: 1 applic Oxybutynin Chloride (Ditropan -) 5 mg NGT BID [facility] Last Admin: 03/16/18 09:51 Dose: 5 mg Pantoprazole Sodium (Protonix Packets For Oral Suspension -) 40 mg NGT DAILY [facility] Last Admin: 03/16/18 09:52 Dose: 40 mg Senna (Senna Oral Solution -) 8.8 mg GT HS [facility] Last Admin: 03/15/18 23:08 Dose: 8.8 mg Sertraline HCl (Zoloft -) 50 mg PO DAILY [facility] Last Admin: 03/16/18 09:51 Dose: 50 mg Tamsulosin HCl (Flomax -) 0.4 mg PO DAILY@0830 [facility] Last Admin: 03/16/18 09:09 Dose: 0.4 mg Constitutional: Yes: NAD, vented Eyes: Yes: WNL HENT: Yes: WNL Neck: Yes: Supple (trach) Cardiovascular: Yes: Pulse Irregular, S1, S2 Respiratory: Yes: Scattered Rhonchi Gastrointestinal: Yes: Soft, Other (peg) Extremities: Yes: WNL Edema: No Labs: Laboratory Results - last 24 hr 03/15/18 03/15/18 03/15/18 12:43 16:34 21:28 Sodium Potassium Chloride Carbon Dioxide Anion Gap BUN Creatinine Creat Clearance w eGFR POC Glucometer 130 176 178 Random Glucose Calcium Total Bilirubin AST ALT Alkaline Phosphatase Total Protein Albumin 03/16/18 03/16/18 03/16/18 02:59 06:15 06:20 Sodium 140 Potassium 4.6 Chloride 104 Carbon Dioxide 28 Anion Gap 8 BUN 83 H Creatinine 1.5 H Creat Clearance w eGFR 44.48 POC Glucometer 127 145 Random Glucose 120 H Calcium 8.0 L Total Bilirubin 0.2 AST 51 H ALT 71 D Alkaline Phosphatase 168 H D Total Protein 5.5 L Albumin 1.8 L 03/16/18 11:24 Sodium Potassium Chloride Carbon Dioxide Anion Gap BUN Creatinine Creat Clearance w eGFR POC Glucometer 214 Random Glucose Calcium Total Bilirubin AST ALT Alkaline Phosphatase Total Protein Albumin Problem List - Problems (1) Anemia Code(s): D64.9 - ANEMIA, UNSPECIFIED (2) Chronic kidney disease, stage 3 Code(s): N18.3 - CHRONIC KIDNEY DISEASE, STAGE 3 (MODERATE) (3) Chronic respiratory failure Code(s): J96.10 - CHRONIC RESPIRATORY FAILURE, UNSP W HYPOXIA OR HYPERCAPNIA Qualifiers: Respiratory failure complication: unspecified whether with hypoxia or hypercapnia Qualified Code(s): J96.10 - Chronic respiratory failure, unspecified whether with hypoxia or hypercapnia (4) PAF (paroxysmal atrial fibrillation) Code(s): I48.0 - PAROXYSMAL ATRIAL FIBRILLATION (5) Renal failure Code(s): N19 - UNSPECIFIED KIDNEY FAILURE Qualifiers: Renal failure chronicity: unspecified chronicity Qualified Code(s): N19 - Unspecified kidney failure (6) Diabetes Code(s): E11.9 - TYPE 2 DIABETES MELLITUS WITHOUT COMPLICATIONS Qualifiers: Diabetes mellitus type: type 2 Diabetes mellitus intermediate insulin use: unspecified lobsterman insulin use status Diabetes mellitus complication status : with kidney complications Diabetes mellitus complication detail: with chronic kidney disease Chronic kidney disease stage: stage 3 (moderate) Qualified Code(s): E11.22 - Type 2 diabetes mellitus with diabetic chronic kidney disease; N18.3 - Chronic kidney disease, stage 3 (moderate) (7) TBI (traumatic brain injury) Code(s): S06.9X9A - UNSP INTRACRANIAL INJURY W LOC OF UNSP DURATION, INIT Qualifiers: Encounter type: sequela Loss of consciousness presence/duration: with LOC of unspecified duration Qualified Code(s): S06.9X9S - Unspecified intracranial injury with loss of consciousness of unspecified duration, sequela (8) Kqjrb-ex-twhicfd kidney injury Code(s): N17.9 - ACUTE KIDNEY FAILURE, UNSPECIFIED; N18.9 - CHRONIC KIDNEY DISEASE, UNSPECIFIED (9) Ukyfq-ro-lvkzmpy renal failure Code(s): N17.9 - ACUTE KIDNEY FAILURE, UNSPECIFIED; N18.9 - CHRONIC KIDNEY DISEASE, UNSPECIFIED Qualifiers: Acute renal failure type: unspecified Chronic kidney disease stage: stage 3 (moderate) Qualified Code(s): N17.9 - Acute kidney failure, unspecified; N18.3 - Chronic kidney disease, stage 3 (moderate) (10) Hypotension Code(s): I95.9 - HYPOTENSION, UNSPECIFIED (11) Hypotension Code(s): I95.9 - HYPOTENSION, UNSPECIFIED Assessment/Plan GI Bleed/Gastric Dieulafoy Lesion s/p EGD/epi/cautery Acute Blood Loss Anemia Chronic Respiratory Failure Pneumonia h/o Traumatic Brain Injury Functional Quadriplegia Acute on Chronic Renal Failure Atrial Fibrillation DM Dementia Elevated LFTs - monitor H/H - protonix - rate control - volume assist control - enteral feeds as tolerated - DVT/GI prophylaxis Dr Lr
--- NOTE | 2018-03-16 13:01 | PN ---
Progress Note, Physician Chief Complaint: Pt on ventilator/trached; clenched fists (chronic) History of Present Illness: The patient is an 87 year old white male, with a significant past medical history of traumatic fall (s/p neck (C4,5, and 6)/back surgery, tracheotomy placement now ventilator dependent, and PEG tube placement), frequent pneumonia , emphysema, A-fib, diastolic CHF, DM, dementia, renal failure, nonverbal TBI, paraplegic, legally blind and deaf, who presents to the emergency department via EMS from [facility] with, 3 days of hypotension. Now transferred to ICU after being found to have bright red blood on gastric tube lavage that led to PRBCs and heater probe coagulation. Allergies: NKA Social History: Former smoker (Quit 35 years ago). Denies EtOH use and recreational drug use. - Current Medication List Current Medications: Active Medications Acetaminophen (Tylenol -) 650 mg PO Q4H PRN PRN Reason: FEVER Last Admin: 03/15/18 17:24 Dose: 650 mg Amino Acids (Prosource No Carb Liquid Pkt) 30 ml PO DAILY@0800 [facility] Last Admin: 03/16/18 09:09 Dose: 30 ml Artificial Tears (Artificial Tears) 2 drop OU BID [facility] Last Admin: 03/16/18 09:52 Dose: 2 drop Atorvastatin Calcium (Lipitor -) 10 mg GT HS [facility] Last Admin: 03/15/18 23:04 Dose: 10 mg Collagenase (Santyl -) 1 applic TP DAILY [facility] Last Admin: 03/16/18 11:55 Dose: 1 applic Diltiazem HCl (Cardizem Injection -) 10 mg IVPUSH Q6H PRN PRN Reason: TACHYCARDIA Last Admin: 03/02/18 09:45 Dose: 10 mg Docusate Sodium (Colace Liquid -) 100 mg PO DAILY PRN PRN Reason: CONSTIPATION Ferrous Sulfate (Feosol) 300 mg GT DAILY [facility] Last Admin: 03/16/18 09:51 Dose: 300 mg Insulin Aspart (Novolog Vial Sliding Scale -) 1 vial SQ [facility]; Protocol Last Admin: 03/16/18 11:45 Dose: 4 units Insulin Detemir (Levemir Vial) 5 units SQ HS [facility] Last Admin: 03/15/18 23:04 Dose: 5 units Levothyroxine Sodium (Synthroid -) 37.5 mcg PEG DAILY@0700 [facility] Last Admin: 03/16/18 06:27 Dose: 37.5 mcg Metoprolol Tartrate (Lopressor -) 25 mg PO BID [facility] Last Admin: 03/16/18 09:51 Dose: 25 mg Non-Formulary Medication (Non-Formulary Med) 1 each GT DAILY [facility] Last Admin: 03/16/18 10:15 Dose: 1 each Nystatin (Nystop Powder -) 1 applic TP BID [facility] Last Admin: 03/16/18 12:11 Dose: 1 applic Oxybutynin Chloride (Ditropan -) 5 mg NGT BID [facility] Last Admin: 03/16/18 09:51 Dose: 5 mg Pantoprazole Sodium (Protonix Packets For Oral Suspension -) 40 mg NGT DAILY [facility] Last Admin: 03/16/18 09:52 Dose: 40 mg Senna (Senna Oral Solution -) 8.8 mg GT HS [facility] Last Admin: 03/15/18 23:08 Dose: 8.8 mg Sertraline HCl (Zoloft -) 50 mg PO DAILY [facility] Last Admin: 03/16/18 09:51 Dose: 50 mg Tamsulosin HCl (Flomax -) 0.4 mg PO DAILY@0830 [facility] Last Admin: 03/16/18 09:09 Dose: 0.4 mg - Objective Vital Signs: Vital Signs Temperature 98.2 F 03/16/18 10:00 Pulse Rate 62 03/16/18 10:00 Respiratory Rate 14 03/16/18 12:40 Blood Pressure 137/66 03/16/18 10:00 O2 Sat by Pulse Oximetry (%) 100 03/15/18 09:00 Constitutional: Yes: Anxious (BEING CLEANED), Thin Eyes: Yes: Conjunctiva Clear, Other HENT: Yes: Other Neck: Yes: Decreased ROM Cardiovascular: Yes: Pulse Irregular, S1 (varies in intensty) Labs: CBC, BMP 03/15/18 05:55 03/16/18 06:15 INR, PTT INR 1.13 (0.82-1.09) 02/16/18 22:40 Problem List - Problems (1) Anemia Assessment/Plan: s/p EGD, cauterization, and PRBCs. Maintain hydration. F/u BUn/Cr, Hb (86 presently). Code(s): D64.9 - ANEMIA, UNSPECIFIED Qualifiers: Anemia type: due to chronic kidney disease Chronic kidney disease stage: unspecified stage Qualified Code(s): N18.9 - Chronic kidney disease, unspecified; D63.1 - Anemia in chronic kidney disease (2) Chronic respiratory failure Assessment/Plan: Ventilator dependent; on trach. Code(s): J96.10 - CHRONIC RESPIRATORY FAILURE, UNSP W HYPOXIA OR HYPERCAPNIA Qualifiers: Respiratory failure complication: unspecified whether with hypoxia or hypercapnia Qualified Code(s): J96.10 - Chronic respiratory failure, unspecified whether with hypoxia or hypercapnia (3) Hematuria Code(s): R31.9 - HEMATURIA, UNSPECIFIED (4) PAF (paroxysmal atrial fibrillation) Assessment/Plan: EKG 02/23/18: AF with RVR (HR 150 bpm); now has HR in 80s bpm. Increased metoprolol to 25 mg bid (pt has required occasional IV diltiazem for rapid VR); f/u HR and BP, and increase metoprolol as tolerated. If pt becomes profoundly bradycardia, will have to consider PPM. anticoagulation held due to GI bleed. TSH 3.59 recently. Code(s): I48.0 - PAROXYSMAL ATRIAL FIBRILLATION (5) S/P percutaneous endoscopic gastrostomy (PEG) tube placement Code(s): Z93.1 - GASTROSTOMY STATUS (6) Acute on chronic diastolic CHF (congestive heart failure) Code(s): I50.33 - ACUTE ON CHRONIC DIASTOLIC (CONGESTIVE) HEART FAILURE (7) Sinus bradycardia Code(s): R00.1 - BRADYCARDIA, UNSPECIFIED (8) TBI (traumatic brain injury) Code(s): S06.9X9A - UNSP INTRACRANIAL INJURY W LOC OF UNSP DURATION, INIT Qualifiers: Encounter type: sequela Loss of consciousness presence/duration: with LOC of unspecified duration Qualified Code(s): S06.9X9S - Unspecified intracranial injury with loss of consciousness of unspecified duration, sequela (9) Severe mitral regurgitation Code(s): I34.0 - NONRHEUMATIC MITRAL (VALVE) INSUFFICIENCY (10) Hypokalemia Code(s): E87.6 - HYPOKALEMIA (11) Hypoalbuminemia Code(s): E88.09 - OTH DISORDERS OF PLASMA-PROTEIN METABOLISM, NEC
--- NOTE | 2018-03-16 14:08 | PN ---
Teaching Attending Note Name of Resident: Erica See ATTENDING PHYSICIAN STATEMENT I saw and evaluated the patient. I reviewed the resident's note and discussed the case with the resident. I agree with the resident's findings and plan as documented. SUBJECTIVE:resting comfortable OBJECTIVE: Last Vital Signs Temp Pulse Resp BP Pulse Ox 98.2 F 62 14 137/66 100 03/16/18 10:00 03/16/18 10:00 03/16/18 12:40 03/16/18 10:00 03/15/18 09:00 General NAD, spontaneous eye opening Abdomen soft +distended. 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 Admitted on 02/17/18 from [facility] chronic respiratory failure and severe anemia with a hg of 5.5 and hypotension. 1. Acute on chronic respiratory failure- due to aspiration PNA. now improved. has returned to baseline vent settings. not weanable due to poor mental status. off steroids. pulmonary on board 2. Aspiration PNA-completed extended course of zosyn. off all abx now. ID on board 3. macular rash-possible drug reaction vs heat rash. now resolved. 4. acute transaminitis- possible cholestasis? similar episode on 02/01/18. trending down. no workup necessary at this time 7. Multifactorial anemia with Upper GI bleed- s/p EGD with Diluefoy lesion s/p heat probe and epi. s/p 11 units PRBC this hospital stay. Hgb stable. no indication for transfusion. hematology on board. on iron supplementation 8. Acute on CKD- hypoperfusion. stable. likely new baseline. elevated BUN likely due to GI bleed. nephro on board 9. new onset afib- rate controlled. cont metoprolol. not a candidate for anticoagulation iwth recent GI bleed. echo reviewed. cardio on board 10. Hypernatremia- resolved. cont water flushes. 11. Thrombophilia-stable. off medications 12. DM-improved. cont levemir. cont iss. titrate as needed to optimize control 13. TBI- s/p trach and PEG. 14. 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 15. legally blind and deaf 16. hypothyroid- on Lt4 17. urinary incontinence- with chronic indwelling christopher. cont oxybutin/flomax 18. depression- on zoloft 19. DVT ppx- SCD. would hold pharmacologic anticoagulation with recent GI bleed 20. medically optimized at this time. Family wanted [place] transfer however insurance denied. now pursuing [place]. awaiting to hear from insurance
--- NOTE | 2018-03-16 15:48 | PN ---
Progress Note, Physician History of Present Illness: stable awake comfortable on vent no overnight events - Current Medication List Current Medications: Active Medications Acetaminophen (Tylenol -) 650 mg PO Q4H PRN PRN Reason: FEVER Last Admin: 03/15/18 17:24 Dose: 650 mg Amino Acids (Prosource No Carb Liquid Pkt) 30 ml PO DAILY@0800 [facility] Last Admin: 03/16/18 09:09 Dose: 30 ml Artificial Tears (Artificial Tears) 2 drop OU BID [facility] Last Admin: 03/16/18 09:52 Dose: 2 drop Atorvastatin Calcium (Lipitor -) 10 mg GT HS [facility] Last Admin: 03/15/18 23:04 Dose: 10 mg Collagenase (Santyl -) 1 applic TP DAILY [facility] Last Admin: 03/16/18 11:55 Dose: 1 applic Diltiazem HCl (Cardizem Injection -) 10 mg IVPUSH Q6H PRN PRN Reason: TACHYCARDIA Last Admin: 03/02/18 09:45 Dose: 10 mg Docusate Sodium (Colace Liquid -) 100 mg PO DAILY PRN PRN Reason: CONSTIPATION Ferrous Sulfate (Feosol) 300 mg GT DAILY [facility] Last Admin: 03/16/18 09:51 Dose: 300 mg Insulin Aspart (Novolog Vial Sliding Scale -) 1 vial SQ [facility]; Protocol Last Admin: 03/16/18 11:45 Dose: 4 units Insulin Detemir (Levemir Vial) 5 units SQ [facility] Last Admin: 03/15/18 23:04 Dose: 5 units Levothyroxine Sodium (Synthroid -) 37.5 mcg PEG DAILY@0700 [facility] Last Admin: 03/16/18 06:27 Dose: 37.5 mcg Metoprolol Tartrate (Lopressor -) 25 mg PO BID [facility] Last Admin: 03/16/18 09:51 Dose: 25 mg Non-Formulary Medication (Non-Formulary Med) 1 each GT DAILY [facility] Last Admin: 03/16/18 10:15 Dose: 1 each Nystatin (Nystop Powder -) 1 applic TP BID [facility] Last Admin: 03/16/18 12:11 Dose: 1 applic Oxybutynin Chloride (Ditropan -) 5 mg NGT BID [facility] Last Admin: 03/16/18 09:51 Dose: 5 mg Pantoprazole Sodium (Protonix Packets For Oral Suspension -) 40 mg NGT DAILY [facility] Last Admin: 03/16/18 09:52 Dose: 40 mg Senna (Senna Oral Solution -) 8.8 mg GT HS [facility] Last Admin: 03/15/18 23:08 Dose: 8.8 mg Sertraline HCl (Zoloft -) 50 mg PO DAILY [facility] Last Admin: 03/16/18 09:51 Dose: 50 mg Tamsulosin HCl (Flomax -) 0.4 mg PO DAILY@0830 [facility] Last Admin: 03/16/18 09:09 Dose: 0.4 mg - Objective Vital Signs: Vital Signs Temperature 98.4 F 03/16/18 14:26 Pulse Rate 66 03/16/18 14:26 Respiratory Rate 14 03/16/18 14:26 Blood Pressure 120/56 03/16/18 14:26 O2 Sat by Pulse Oximetry (%) 100 03/15/18 09:00 Constitutional: Yes: No Distress, Calm Cardiovascular: Yes: Pulse Irregular Respiratory: Yes: Mechanically Ventilated, Other Gastrointestinal: Yes: Normal Bowel Sounds, Soft, Other (peg) Labs: CBC, BMP 03/15/18 05:55 03/16/18 06:15 INR, PTT INR 1.13 (0.82-1.09) 02/16/18 22:40 Assessment/Plan Problem List - Problems (1) Anemia Code(s): D64.9 - ANEMIA, UNSPECIFIED (2) Chronic kidney disease, stage 3 Code(s): N18.3 - CHRONIC KIDNEY DISEASE, STAGE 3 (MODERATE) (3) Chronic respiratory failure Code(s): J96.10 - CHRONIC RESPIRATORY FAILURE, UNSP W HYPOXIA OR HYPERCAPNIA Qualifiers: Respiratory failure complication: unspecified whether with hypoxia or hypercapnia Qualified Code(s): J96.10 - Chronic respiratory failure, unspecified whether with hypoxia or hypercapnia (4) PAF (paroxysmal atrial fibrillation) Code(s): I48.0 - PAROXYSMAL ATRIAL FIBRILLATION (5) Renal failure Code(s): N19 - UNSPECIFIED KIDNEY FAILURE Qualifiers: Renal failure chronicity: unspecified chronicity Qualified Code(s): N19 - Unspecified kidney failure (6) Diabetes Code(s): E11.9 - TYPE 2 DIABETES MELLITUS WITHOUT COMPLICATIONS (7) TBI (traumatic brain injury) Code(s): S06.9X9A - UNSP INTRACRANIAL INJURY W LOC OF UNSP DURATION, INIT (8) Irwha-do-bhldibb kidney injury Code(s): N17.9 - ACUTE KIDNEY FAILURE, UNSPECIFIED; N18.9 - CHRONIC KIDNEY DISEASE, UNSPECIFIED (9) Mqgvd-wh-hoshcdm renal failure Code(s): N17.9 - ACUTE KIDNEY FAILURE, UNSPECIFIED; N18.9 - CHRONIC KIDNEY DISEASE, UNSPECIFIED (10) Hypotension Code(s): I95.9 - HYPOTENSION, UNSPECIFIED (11) Hypotension Code(s): I95.9 - HYPOTENSION, UNSPECIFIED 12 gi bleed 13 difuleoy lesion 14 rash I plan continue to monitor off of abx nutrition rest as per primary care as per pul suctioning if needed final plan awaited watch liver enzymes
--- NOTE | 2018-03-16 17:32 | PN ---
Physical Exam: SUBJECTIVE: Patient seen and examined resting comfortably on bed. No acute overnight events as per nursing. OBJECTIVE: Vital Signs Period Temp Pulse Resp BP Sys/Wills Pulse Ox Last 24 Hr 97.1 F-100.3 F 55-66 14-18 118-137/51-66 GENERAL: Resting comfortably, spontaneous eye opening LUNGS: Mechanical Breath sounds anteriorly, decreased effort HEART: Regular rate and rhythm, S1, S2 without murmur, rub or gallop ABDOMEN: Soft, normoactive bowel sounds, distended, PEG tube present without bleeding, drainage or erythema NEUROLOGICAL: Upper extremities contracted b/l Laboratory Results - last 24 hr 03/15/18 03/16/18 03/16/18 21:28 02:59 06:15 Sodium 140 Potassium 4.6 Chloride 104 Carbon Dioxide 28 Anion Gap 8 BUN 83 H Creatinine 1.5 H Creat Clearance w eGFR 44.48 POC Glucometer 178 127 Random Glucose 120 H Calcium 8.0 L Total Bilirubin 0.2 AST 51 H ALT 71 D Alkaline Phosphatase 168 H D Total Protein 5.5 L Albumin 1.8 L 03/16/18 03/16/18 03/16/18 06:20 11:24 16:29 Sodium Potassium Chloride Carbon Dioxide Anion Gap BUN Creatinine Creat Clearance w eGFR POC Glucometer 145 214 147 Random Glucose Calcium Total Bilirubin AST ALT Alkaline Phosphatase Total Protein Albumin Active Medications Acetaminophen (Tylenol -) 650 mg PO Q4H PRN PRN Reason: FEVER Last Admin: 03/15/18 17:24 Dose: 650 mg Amino Acids (Prosource No Carb Liquid Pkt) 30 ml PO DAILY@0800 [facility] Last Admin: 03/16/18 09:09 Dose: 30 ml Artificial Tears (Artificial Tears) 2 drop OU BID [facility] Last Admin: 03/16/18 09:52 Dose: 2 drop Atorvastatin Calcium (Lipitor -) 10 mg GT HS [facility] Last Admin: 03/15/18 23:04 Dose: 10 mg Collagenase (Santyl -) 1 applic TP DAILY [facility] Last Admin: 03/16/18 11:55 Dose: 1 applic Diltiazem HCl (Cardizem Injection -) 10 mg IVPUSH Q6H PRN PRN Reason: TACHYCARDIA Last Admin: 03/02/18 09:45 Dose: 10 mg Docusate Sodium (Colace Liquid -) 100 mg PO DAILY PRN PRN Reason: CONSTIPATION Ferrous Sulfate (Feosol) 300 mg GT DAILY [facility] Last Admin: 03/16/18 09:51 Dose: 300 mg Insulin Aspart (Novolog Vial Sliding Scale -) 1 vial SQ [facility]; Protocol Last Admin: 03/16/18 16:30 Dose: Not Given Insulin Detemir (Levemir Vial) 5 units SQ [facility] Last Admin: 03/15/18 23:04 Dose: 5 units Levothyroxine Sodium (Synthroid -) 37.5 mcg PEG DAILY@0700 [facility] Last Admin: 03/16/18 06:27 Dose: 37.5 mcg Metoprolol Tartrate (Lopressor -) 25 mg PO BID [facility] Last Admin: 03/16/18 09:51 Dose: 25 mg Non-Formulary Medication (Non-Formulary Med) 1 each GT DAILY [facility] Last Admin: 03/16/18 10:15 Dose: 1 each Nystatin (Nystop Powder -) 1 applic TP BID [facility] Last Admin: 03/16/18 12:11 Dose: 1 applic Oxybutynin Chloride (Ditropan -) 5 mg NGT BID [facility] Last Admin: 03/16/18 09:51 Dose: 5 mg Pantoprazole Sodium (Protonix Packets For Oral Suspension -) 40 mg NGT DAILY [facility] Last Admin: 03/16/18 09:52 Dose: 40 mg Senna (Senna Oral Solution -) 8.8 mg GT HS [facility] Last Admin: 03/15/18 23:08 Dose: 8.8 mg Sertraline HCl (Zoloft -) 50 mg PO DAILY [facility] Last Admin: 03/16/18 09:51 Dose: 50 mg Tamsulosin HCl (Flomax -) 0.4 mg PO DAILY@0830 [facility] Last Admin: 03/16/18 09:09 Dose: 0.4 mg ASSESSMENT/PLAN: 87 year old male with a PMHx significant for Diastolic heart failure, NIDDM, CKD , and 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 Admitted on 02/17/18 from [facility] for chronic respiratory failure and severe anemia with a hg of 5.5 and hypotension. 1. Multifactorial anemia with UGIB - s/p EGD with Diluefoy lesion - s/p heat probe and epi - s/p 10 units PRBC this hospital stay - Hgb currently stable, 8.5 this morning, No signs of Active bleeding - 1 Unit Packed RBC Transfused on 03/11 - GI (Dr. Diaz) Consulted, appreciate recommendations, - Glucerna Tube feeds being tolerated well - Experiences recurrent hypoglycemia in the morning, discontinued levemir currently, will continue to monitor - Abdominal XRay: : Functional PEG tube with tip in stomach. No sign of obstruction or leak - Family concerned for abdominal bloating, Serial abdomen exams, continue to monitor - Hematology consulted, Appreciate recommendations - Continue Ferrous Sulfate 300 mg GT DAILY [facility] 2. Acute on chronic respiratory failure - Due to aspiration PNA that has now improved, patient has returned to baseline vent settings - Not weanable due to poor mental status - Pulmonary consulted, Appreciate recommendations 3. Aspiration PNA - Completed course of Zosyn, Not on any other ABx - ID (Dr. Garza) consulted, Appreciate recommendations 4. Acute Transaminitis - AST/ALT Trending down - Has hx of similar episode on 02/01/18 that self-resolved - Will continue to monitor 5. Acute on CKD - Hypoperfusion - BUN remains elevated, likely due to GI bleed - Cr remains elevated - No longer on steroids - Will continue to monitor - Nephrology consulted, Appreciate recommendations 6. New onset Afib - rate controlled, Continue Metoprolol Tartrate 25 mg PO BID [facility] - Not a candidate for anticoagulation due to recent GI bleed - Cardiology consulted, Appreciate recommendations 7. Hypernatremia - resolved - will continue water flushes and monitor 8. Thrombophilia - stable off medications 9. DM - Improved - Continue Insulin Aspart SQ ACHS [facility] - Continue Insulin Detemir SQ HS [facility] 10. 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 Hypothyroid - Continue Synthroid 37.5 mcg PEG DAILY @ 0700 [facility] 12. Urinary incontinence - Chronic indwelling christopher. cont oxybutin/flomax - Continue Flomax 0.4 mg PO DAILY@0830 [facility] - Continue Oxybutynin Chloride 5 mg BID [facility] 13. Depression - Continue on Sertraline HCl 50 mg PO DAILY [facility] 14. DVT ppx - SCD - Not a candidate for anticoagulation due to recent GI Bleed Visit type - Emergency Visit Emergency Visit: No - New Patient This patient is new to me today: No - Critical Care Critical Care patient: No
[2018-03-16] MEDS: ATORVASTATIN CA 10 MG TABLET (FP) GT SCH (22:15)
[2018-03-16] MEDS: INSULIN (LEVEMIR) 100 UNITS/ML UNITS SQ SCH (22:15)
[2018-03-16] MEDS: SENNOSIDES 8.8 MG/5 ML BULK BOTTLE GT SCH (22:16)
[2018-03-17] MEDS: LEVOTHYROXINE NA 25 MCG TABLET (FP) PEG SCH (06:38)
[2018-03-17] MEDS: INSULIN SLIDING SCALE (NOVOLOG) 1 VIAL SQ SCH ×4 (06:38→22:58)
[2018-03-17] MEDS ORDERED: INSULIN (LEVEMIR) 100 UNITS/ML UNITS SQ ONE (07:06)
--- NOTE | 2018-03-17 08:00 | PN ---
Physical Exam: SUBJECTIVE: Patient seen and examined at bedside this morning. Patient was resting comfortably and opened his eyes when his name was called. No acute overnight events as per nursing. Unable to perform ROS as patient is nonverbal. OBJECTIVE: Vital Signs Period Temp Pulse Resp BP Sys/Wills Pulse Ox Last 24 Hr 98.2 F-99.8 F 56-68 14-16 118-137/51-66 100 GENERAL: Resting comfortably, spontaneous eye opening LUNGS: Mechanical Breath sounds anteriorly, decreased effort HEART: Regular rate and rhythm, S1, S2 without murmur, rub or gallop ABDOMEN: Soft, normoactive bowel sounds, distended, PEG tube present without bleeding, drainage or erythema : Christopher catheter present draining Clear, yellow urine NEUROLOGICAL: Upper extremities contracted b/l Laboratory Results - last 24 hr 03/16/18 03/16/18 03/16/18 06:15 11:24 16:29 Sodium 140 Potassium 4.6 Chloride 104 Carbon Dioxide 28 Anion Gap 8 BUN 83 H Creatinine 1.5 H Creat Clearance w eGFR 44.48 POC Glucometer 214 147 Random Glucose 120 H Calcium 8.0 L Total Bilirubin 0.2 AST 51 H ALT 71 D Alkaline Phosphatase 168 H D Total Protein 5.5 L Albumin 1.8 L 03/16/18 03/17/18 22:32 06:26 Sodium Potassium Chloride Carbon Dioxide Anion Gap BUN Creatinine Creat Clearance w eGFR POC Glucometer 219 94 Random Glucose Calcium Total Bilirubin AST ALT Alkaline Phosphatase Total Protein Albumin Home Medication List Medication Instructions Recorded Confirmed Type Acetaminophen [Tylenol] 650 mg PO Q6H PRN 01/21/18 02/17/18 History Bacitracin - [Bacitracin Topical 1 applic TP TID 01/21/18 02/17/18 History Ointment -] Baclofen 10 mg GT Q8H 01/21/18 02/17/18 History Balsam [place] Oil [Venelex 1 applic TP BID 01/21/18 02/17/18 History Ointment] Docusate Sodium [Colace -] 100 mg GT ASDIR 01/21/18 02/17/18 History Ferrous Sulfate [Feosol] 300 mg GT DAILY 01/21/18 02/17/18 History Glycopyrrolate/Formoterol Fum 0 gm IH BID 01/21/18 02/17/18 History [Bevespi Aerosphere Inhaler] Heparin - 5,000 unit SQ BID 01/21/18 02/17/18 History Hypromellose 0.5% Opth Soln 2 drop OU BID 01/21/18 02/17/18 History [Artificial Tears] Insulin Glargine,Hum.rec.anlog 9 units SQ HS 01/21/18 02/17/18 History [Lantus Solostar PEN -] Insulin Lispro [Humalog] 0 unit SQ Q6H 01/21/18 02/17/18 History L.acidoph,Paracasei, B.lactis 1 each GT DAILY 01/21/18 02/17/18 History [Probiotic] Lanolin/Mineral Oil [Eucerin 1 applic TP Q6H 01/21/18 02/17/18 History Original Lotion] Levothyroxine Sodium [Synthroid] 37.5 mcg GT BID 01/21/18 02/17/18 History Oxybutynin Chloride 5 mg GT BID 01/21/18 02/17/18 History Ranitidine [Zantac -] 150 mg GT DAILY 01/21/18 02/17/18 History Sertraline HCl [Zoloft] 25 mg GT DAILY 01/21/18 02/17/18 History Silver Sulfadiazine 1% Top Cr 1 applic TP DAILY 01/21/18 02/17/18 History [Silvadene -] Simethicone 40 mg GT Q6H 01/21/18 02/17/18 History Simvastatin 20 mg GT DAILY 01/21/18 02/17/18 History Tamsulosin HCl 0.4 mg GT DAILY 01/21/18 02/17/18 History Zinc Oxide 1 applic TP BID 01/21/18 02/17/18 History Active Medications Acetaminophen (Tylenol -) 650 mg PO Q4H PRN PRN Reason: FEVER Last Admin: 03/15/18 17:24 Dose: 650 mg Amino Acids (Prosource No Carb Liquid Pkt) 30 ml PO DAILY@0800 [facility] Last Admin: 03/16/18 09:09 Dose: 30 ml Artificial Tears (Artificial Tears) 2 drop OU BID [facility] Last Admin: 03/16/18 22:14 Dose: 2 drop Atorvastatin Calcium (Lipitor -) 10 mg GT HS [facility] Last Admin: 03/16/18 22:15 Dose: 10 mg Collagenase (Santyl -) 1 applic TP DAILY [facility] Last Admin: 03/16/18 11:55 Dose: 1 applic Diltiazem HCl (Cardizem Injection -) 10 mg IVPUSH Q6H PRN PRN Reason: TACHYCARDIA Last Admin: 03/02/18 09:45 Dose: 10 mg Docusate Sodium (Colace Liquid -) 100 mg PO DAILY PRN PRN Reason: CONSTIPATION Ferrous Sulfate (Feosol) 300 mg GT DAILY [facility] Last Admin: 03/16/18 09:51 Dose: 300 mg Insulin Aspart (Novolog Vial Sliding Scale -) 1 vial SQ [facility]; Protocol Last Admin: 03/17/18 06:38 Dose: Not Given Insulin Detemir (Levemir Vial) 5 units SQ [facility] Last Admin: 03/16/18 22:15 Dose: 5 units Levothyroxine Sodium (Synthroid -) 37.5 mcg PEG DAILY@0700 [facility] Last Admin: 03/17/18 06:38 Dose: 37.5 mcg Metoprolol Tartrate (Lopressor -) 25 mg PO BID [facility] Last Admin: 03/16/18 22:15 Dose: 25 mg Non-Formulary Medication (Non-Formulary Med) 1 each GT DAILY [facility] Last Admin: 03/16/18 10:15 Dose: 1 each Nystatin (Nystop Powder -) 1 applic TP BID [facility] Last Admin: 03/16/18 22:16 Dose: 1 applic Oxybutynin Chloride (Ditropan -) 5 mg NGT BID [facility] Last Admin: 03/16/18 22:15 Dose: 5 mg Pantoprazole Sodium (Protonix Packets For Oral Suspension -) 40 mg NGT DAILY [facility] Last Admin: 03/16/18 09:52 Dose: 40 mg Senna (Senna Oral Solution -) 8.8 mg GT HS [facility] Last Admin: 03/16/18 22:16 Dose: 8.8 mg Sertraline HCl (Zoloft -) 50 mg PO DAILY [facility] Last Admin: 03/16/18 09:51 Dose: 50 mg Tamsulosin HCl (Flomax -) 0.4 mg PO DAILY@0830 [facility] Last Admin: 03/16/18 09:09 Dose: 0.4 mg ASSESSMENT/PLAN: 87 year old male with a PMHx significant for Diastolic heart failure, NIDDM, CKD , and 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 Admitted on 02/17/18 from [facility] for chronic respiratory failure and severe anemia with a hg of 5.5 and hypotension. 1. Multifactorial anemia with UGIB - s/p EGD with Diluefoy lesion - s/p heat probe and epi - s/p 10 units PRBC this hospital stay - Hgb currently stable, 8.5 this morning, No signs of Active bleeding - 1 Unit Packed RBC Transfused on 03/11 - GI (Dr. Diaz) Consulted, appreciate recommendations, - Glucerna Tube feeds being tolerated well - Experiences recurrent hypoglycemia in the morning, discontinued levemir currently, will continue to monitor - Abdominal XRay: : Functional PEG tube with tip in stomach. No sign of obstruction or leak - Family concerned for abdominal bloating, Serial abdomen exams, continue to monitor - Hematology consulted, Appreciate recommendations - Continue Ferrous Sulfate 300 mg GT DAILY [facility] 2. Acute on chronic respiratory failure - Due to aspiration PNA that has now improved, patient has returned to baseline vent settings - Not weanable due to poor mental status - Pulmonary consulted, Appreciate recommendations 3. Aspiration PNA - Completed course of Zosyn, Not on any other ABx - ID (Dr. Garza) consulted, Appreciate recommendations 4. Acute Transaminitis - AST/ALT Trending down - Has hx of similar episode on 02/01/18 that self-resolved - Will continue to monitor 5. Acute on CKD - Hypoperfusion - BUN remains elevated, likely due to GI bleed - Cr remains elevated - No longer on steroids - Will continue to monitor - Nephrology consulted, Appreciate recommendations 6. New onset Afib - rate controlled, Continue Metoprolol Tartrate 25 mg PO BID [facility] - Not a candidate for anticoagulation due to recent GI bleed - Cardiology consulted, Appreciate recommendations 7. Hypernatremia - resolved - will continue water flushes and monitor 8. Thrombophilia - stable off medications 9. DM - Improved - Continue Insulin Aspart SQ ACHS LILIA - Continue Insulin Detemir SQ HS [facility] 10. 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 Hypothyroid - Continue Synthroid 37.5 mcg PEG DAILY @ 0700 [facility] 12. Urinary incontinence - Chronic indwelling christopher. cont oxybutin/flomax - Continue Flomax 0.4 mg PO DAILY@0830 [facility] - Continue Oxybutynin Chloride 5 mg BID [facility] 13. Depression - Continue on Sertraline HCl 50 mg PO DAILY [facility] 14. DVT ppx - SCD - Not a candidate for anticoagulation due to recent GI Bleed Dispo: Waiting for insurance to approve [place] Visit type - Emergency Visit Emergency Visit: No - New Patient This patient is new to me today: No - Critical Care Critical Care patient: No
[2018-03-17] MEDS: AMINO ACIDS/PROTEIN HYDROLYS 30 ML LIQUID.PKT PO SCH (08:52)
[2018-03-17] MEDS: TAMSULOSIN HCL 0.4 MG CAP.ER.24H (FP) PO SCH (08:52)
--- NOTE | 2018-03-17 10:45 | PN ---
Progress Note, Physician History of Present Illness: 87M w/ pmh of traumatic fall (s/p neck (C4,5, and 6)/back surgery, tracheotomy placement now ventilator dependent, and PEG tube placement), frequent pneumonia , emphysema, A-fib, CHF, DM, dementia, renal failure, nonverbal TBI, paraplegia , and legal blindness and deafness, who presents to the emergency department via EMS from [facility] with 3 days of hypotension. As per patients son , his blood pressure has been decreasing over the past few days. He reports that at baseline, his systolic is between 110-119 in the mornings and between 100-109 at night. Pt has failed 5 weaning trials in the last few days, and it was noticed that there was blood around the tracheostomy site when suctioning. Pt' son denies recent fevers, chills, chest pain, emesis, hematemesis, melena, and hematochezia in pt. - Current Medication List Current Medications: Active Medications Acetaminophen (Tylenol -) 650 mg PO Q4H PRN PRN Reason: FEVER Last Admin: 03/15/18 17:24 Dose: 650 mg Amino Acids (Prosource No Carb Liquid Pkt) 30 ml PO DAILY@0800 [facility] Last Admin: 03/17/18 08:52 Dose: 30 ml Artificial Tears (Artificial Tears) 2 drop OU BID [facility] Last Admin: 03/16/18 22:14 Dose: 2 drop Atorvastatin Calcium (Lipitor -) 10 mg GT HS [facility] Last Admin: 03/16/18 22:15 Dose: 10 mg Collagenase (Santyl -) 1 applic TP DAILY [facility] Last Admin: 03/16/18 11:55 Dose: 1 applic Diltiazem HCl (Cardizem Injection -) 10 mg IVPUSH Q6H PRN PRN Reason: TACHYCARDIA Last Admin: 03/02/18 09:45 Dose: 10 mg Docusate Sodium (Colace Liquid -) 100 mg PO DAILY PRN PRN Reason: CONSTIPATION Ferrous Sulfate (Feosol) 300 mg GT DAILY [facility] Last Admin: 03/16/18 09:51 Dose: 300 mg Insulin Aspart (Novolog Vial Sliding Scale -) 1 vial SQ [facility]; Protocol Last Admin: 03/17/18 06:38 Dose: Not Given Insulin Detemir (Levemir Vial) 5 units SQ [facility] Last Admin: 03/16/18 22:15 Dose: 5 units Levothyroxine Sodium (Synthroid -) 37.5 mcg PEG DAILY@0700 [facility] Last Admin: 03/17/18 06:38 Dose: 37.5 mcg Metoprolol Tartrate (Lopressor -) 25 mg PO BID [facility] Last Admin: 03/16/18 22:15 Dose: 25 mg Non-Formulary Medication (Non-Formulary Med) 1 each GT DAILY [facility] Last Admin: 03/16/18 10:15 Dose: 1 each Nystatin (Nystop Powder -) 1 applic TP BID [facility] Last Admin: 03/16/18 22:16 Dose: 1 applic Oxybutynin Chloride (Ditropan -) 5 mg NGT BID [facility] Last Admin: 03/16/18 22:15 Dose: 5 mg Pantoprazole Sodium (Protonix Packets For Oral Suspension -) 40 mg NGT DAILY [facility] Last Admin: 03/16/18 09:52 Dose: 40 mg Senna (Senna Oral Solution -) 8.8 mg GT HS [facility] Last Admin: 03/16/18 22:16 Dose: 8.8 mg Sertraline HCl (Zoloft -) 50 mg PO DAILY [facility] Last Admin: 03/16/18 09:51 Dose: 50 mg Tamsulosin HCl (Flomax -) 0.4 mg PO DAILY@0830 [facility] Last Admin: 03/17/18 08:52 Dose: 0.4 mg - Objective Vital Signs: Vital Signs Temperature 98.4 F 03/17/18 06:00 Pulse Rate 60 03/17/18 06:00 Respiratory Rate 16 03/17/18 08:58 Blood Pressure 119/53 03/17/18 06:00 O2 Sat by Pulse Oximetry (%) 100 03/16/18 21:00 Eyes: Yes: WNL, Conjunctiva Clear, EOM Intact HENT: Yes: WNL, Atraumatic, Normocephalic Neck: Yes: WNL, Supple, Trachea Midline Cardiovascular: Yes: WNL, Regular Rate and Rhythm Respiratory: Yes: Mechanically Ventilated Gastrointestinal: Yes: WNL, Normal Bowel Sounds Genitourinary: Yes: WNL Musculoskeletal: Yes: WNL Extremities: Yes: WNL Edema: No Integumentary: Yes: WNL Neurological: Yes: WNL, Alert, Oriented ...Motor Strength: WNL Psychiatric: Yes: WNL Labs: CBC, BMP 03/15/18 05:55 03/16/18 06:15 INR, PTT INR 1.13 (0.82-1.09) 02/16/18 22:40 Assessment/Plan Problems (1) Anemia Assessment/Plan: s/p EGD, cauterization, and PRBCs. Maintain hydration. F/u BUn/Cr, Hb (86 presently). Code(s): D64.9 - ANEMIA, UNSPECIFIED Qualifiers: Anemia type: due to chronic kidney disease Chronic kidney disease stage: unspecified stage Qualified Code(s): N18.9 - Chronic kidney disease, unspecified; D63.1 - Anemia in chronic kidney disease (2) Chronic respiratory failure Assessment/Plan: Ventilator dependent; on trach. Code(s): J96.10 - CHRONIC RESPIRATORY FAILURE, UNSP W HYPOXIA OR HYPERCAPNIA Qualifiers: Respiratory failure complication: unspecified whether with hypoxia or hypercapnia Qualified Code(s): J96.10 - Chronic respiratory failure, unspecified whether with hypoxia or hypercapnia (3) Hematuria Code(s): R31.9 - HEMATURIA, UNSPECIFIED (4) PAF (paroxysmal atrial fibrillation) Assessment/Plan: EKG 02/23/18: AF with RVR (HR 150 bpm); now has HR in 80s bpm. Increased metoprolol to 25 mg bid (pt has required occasional IV diltiazem for rapid VR); f/u HR and BP, and increase metoprolol as tolerated. If pt becomes profoundly bradycardia, will have to consider PPM. anticoagulation held due to GI bleed. TSH 3.59 recently. Code(s): I48.0 - PAROXYSMAL ATRIAL FIBRILLATION (5) S/P percutaneous endoscopic gastrostomy (PEG) tube placement Code(s): Z93.1 - GASTROSTOMY STATUS (6) Acute on chronic diastolic CHF (congestive heart failure) Code(s): I50.33 - ACUTE ON CHRONIC DIASTOLIC (CONGESTIVE) HEART FAILURE (7) Sinus bradycardia Code(s): R00.1 - BRADYCARDIA, UNSPECIFIED (8) TBI (traumatic brain injury) Code(s): S06.9X9A - UNSP INTRACRANIAL INJURY W LOC OF UNSP DURATION, INIT Qualifiers: Encounter type: sequela Loss of consciousness presence/duration: with LOC of unspecified duration Qualified Code(s): S06.9X9S - Unspecified intracranial injury with loss of consciousness of unspecified duration, sequela (9) Severe mitral regurgitation Code(s): I34.0 - NONRHEUMATIC MITRAL (VALVE) INSUFFICIENCY (10) Hypokalemia Code(s): E87.6 - HYPOKALEMIA (11) Hypoalbuminemia Code(s): E88.09 - OTH DISORDERS OF PLASMA-PROTEIN METABOLISM, NEC
[2018-03-17] MEDS ORDERED: PT OWN MED DRAWER 7, Y5N ONE ×3 (10:57→23:20)
[2018-03-17] MEDS ORDERED: INSULIN (NOVOLOG) ASPART 100 UNITS/ML 10ML VIAL ONE (11:35)
[2018-03-17] MEDS: FERROUS SO4 300 MG/5 ML ORAL SOLN UNIT DOSE CUPS GT SCH (11:46)
[2018-03-17] MEDS: SERTRALINE HCL 25 MG TABLET (FP) PO SCH (11:46)
[2018-03-17] MEDS: NON-FORMULARY MED GT SCH (11:47)
[2018-03-17] MEDS: PANTOPRAZOLE SOD 40 MG SUSPENSION PACKET NGT SCH (11:47)
[2018-03-17] MEDS: METOPROLOL TARTRATE 25 MG TABLET (FP) PO SCH ×2 (11:48→23:22)
[2018-03-17] MEDS: OXYBUTYNIN CHLORIDE 5 MG TABLET NGT SCH ×2 (11:48→23:22)
[2018-03-17] MEDS: ARTIFICIAL TEARS (POLYVINYL ALCOHOL 1.4%) OPTH DROPS OU SCH ×2 (11:49→23:23)
[2018-03-17] MEDS: NYSTATIN POWDER 100,000 UNITS/GM - 15 GM TOPICAL POWDER TP SCH ×2 (12:15→23:23)
[2018-03-17] MEDS: COLLAGENASE CLOSTRIDIUM HIST. 30 GRAMS TUBE TP SCH (12:15)
--- NOTE | 2018-03-17 12:18 | PN ---
Teaching Attending Note Name of Resident: Erica See ATTENDING PHYSICIAN STATEMENT I saw and evaluated the patient. I reviewed the resident's note and discussed the case with the resident. I agree with the resident's findings and plan as documented. SUBJECTIVE:resting comfortable OBJECTIVE: Last Vital Signs Temp Pulse Resp BP Pulse Ox 98.4 F 69 19 136/64 100 03/17/18 06:00 03/17/18 11:32 03/17/18 12:04 03/17/18 11:32 03/16/18 21:00 General NAD, spontaneous eye opening Abdomen soft +distended. 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 Admitted on 02/17/18 from [facility] chronic respiratory failure and severe anemia with a hg of 5.5 and hypotension. 1. Acute on chronic respiratory failure- due to aspiration PNA. now improved. has returned to baseline vent settings. not weanable due to poor mental status. off steroids. pulmonary on board 2. Aspiration PNA-completed extended course of zosyn. off all abx now. ID on board 3. macular rash-possible drug reaction vs heat rash. now resolved. 4. acute transaminitis- possible cholestasis? similar episode on 02/01/18. trending down. no workup necessary at this time 7. Multifactorial anemia with Upper GI bleed- s/p EGD with Diluefoy lesion s/p heat probe and epi. s/p 11 units PRBC this hospital stay. Hgb stable. no indication for transfusion. hematology on board. on iron supplementation 8. Acute on CKD- hypoperfusion. stable. likely new baseline. elevated BUN likely due to GI bleed. nephro on board 9. new onset afib- rate controlled. cont metoprolol. not a candidate for anticoagulation iwth recent GI bleed. echo reviewed. cardio on board 10. Hypernatremia- resolved. cont water flushes. 11. Thrombophilia-stable. off medications 12. DM-improved. cont levemir. cont iss. titrate as needed to optimize control 13. TBI- s/p trach and PEG. 14. 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 15. legally blind and deaf 16. hypothyroid- on Lt4 17. urinary incontinence- with chronic indwelling christopher. cont oxybutin/flomax 18. depression- on zoloft 19. DVT ppx- SCD. would hold pharmacologic anticoagulation with recent GI bleed 20. medically optimized at this time. Family wanted [place] transfer however insurance denied. now pursuing [place]. awaiting to hear from insurance
--- NOTE | 2018-03-17 13:35 | PN ---
Progress Note, Physician History of Present Illness: pulmonary no change on vent support ac mode,-resp distress - Current Medication List Current Medications: Active Medications Acetaminophen (Tylenol -) 650 mg PO Q4H PRN PRN Reason: FEVER Last Admin: 03/15/18 17:24 Dose: 650 mg Amino Acids (Prosource No Carb Liquid Pkt) 30 ml PO DAILY@0800 [facility] Last Admin: 03/17/18 08:52 Dose: 30 ml Artificial Tears (Artificial Tears) 2 drop OU BID [facility] Last Admin: 03/17/18 11:49 Dose: 2 drop Atorvastatin Calcium (Lipitor -) 10 mg GT HS [facility] Last Admin: 03/16/18 22:15 Dose: 10 mg Collagenase (Santyl -) 1 applic TP DAILY [facility] Last Admin: 03/17/18 12:15 Dose: 1 applic Diltiazem HCl (Cardizem Injection -) 10 mg IVPUSH Q6H PRN PRN Reason: TACHYCARDIA Last Admin: 03/02/18 09:45 Dose: 10 mg Docusate Sodium (Colace Liquid -) 100 mg PO DAILY PRN PRN Reason: CONSTIPATION Ferrous Sulfate (Feosol) 300 mg GT DAILY [facility] Last Admin: 03/17/18 11:46 Dose: 300 mg Insulin Aspart (Novolog Vial Sliding Scale -) 1 vial SQ [facility]; Protocol Last Admin: 03/17/18 12:32 Dose: 2 units Insulin Detemir (Levemir Vial) 5 units SQ [facility] Last Admin: 03/16/18 22:15 Dose: 5 units Levothyroxine Sodium (Synthroid -) 37.5 mcg PEG DAILY@0700 [facility] Last Admin: 03/17/18 06:38 Dose: 37.5 mcg Metoprolol Tartrate (Lopressor -) 25 mg PO BID [facility] Last Admin: 03/17/18 11:48 Dose: 25 mg Non-Formulary Medication (Non-Formulary Med) 1 each GT DAILY [facility] Last Admin: 03/17/18 11:47 Dose: 1 each Nystatin (Nystop Powder -) 1 applic TP BID [facility] Last Admin: 03/17/18 12:15 Dose: 1 applic Oxybutynin Chloride (Ditropan -) 5 mg NGT BID [facility] Last Admin: 03/17/18 11:48 Dose: 5 mg Pantoprazole Sodium (Protonix Packets For Oral Suspension -) 40 mg NGT DAILY [facility] Last Admin: 03/17/18 11:47 Dose: 40 mg Senna (Senna Oral Solution -) 8.8 mg GT HS [facility] Last Admin: 03/16/18 22:16 Dose: 8.8 mg Sertraline HCl (Zoloft -) 50 mg PO DAILY [facility] Last Admin: 03/17/18 11:46 Dose: 50 mg Tamsulosin HCl (Flomax -) 0.4 mg PO DAILY@0830 [facility] Last Admin: 03/17/18 08:52 Dose: 0.4 mg - Objective Vital Signs: Vital Signs Temperature 99.7 F H 03/17/18 12:00 Pulse Rate 69 03/17/18 11:32 Respiratory Rate 19 03/17/18 12:04 Blood Pressure 136/64 03/17/18 11:32 O2 Sat by Pulse Oximetry (%) 100 03/16/18 21:00 Constitutional: Yes: Well Nourished, Calm Eyes: Yes: WNL HENT: Yes: WNL Neck: Yes: Supple (trach) Cardiovascular: Yes: Pulse Irregular, S1, S2 Respiratory: Yes: Rhonchi (few scattered rhonchi) Gastrointestinal: Yes: Normal Bowel Sounds, Distention (mild distention), Other (+peg) Extremities: Yes: WNL Edema: No Labs: CBC, BMP Problem List - Problems (1) Anemia Code(s): D64.9 - ANEMIA, UNSPECIFIED (2) Chronic kidney disease, stage 3 Code(s): N18.3 - CHRONIC KIDNEY DISEASE, STAGE 3 (MODERATE) (3) Chronic respiratory failure Code(s): J96.10 - CHRONIC RESPIRATORY FAILURE, UNSP W HYPOXIA OR HYPERCAPNIA Qualifiers: Respiratory failure complication: unspecified whether with hypoxia or hypercapnia Qualified Code(s): J96.10 - Chronic respiratory failure, unspecified whether with hypoxia or hypercapnia (4) PAF (paroxysmal atrial fibrillation) Code(s): I48.0 - PAROXYSMAL ATRIAL FIBRILLATION (5) Renal failure Code(s): N19 - UNSPECIFIED KIDNEY FAILURE Qualifiers: Renal failure chronicity: unspecified chronicity Qualified Code(s): N19 - Unspecified kidney failure (6) Diabetes Code(s): E11.9 - TYPE 2 DIABETES MELLITUS WITHOUT COMPLICATIONS Qualifiers: Diabetes mellitus type: type 2 Diabetes mellitus termite control service representative insulin use: unspecified termite control service representative insulin use status Diabetes mellitus complication status : with kidney complications Diabetes mellitus complication detail: with chronic kidney disease Chronic kidney disease stage: stage 3 (moderate) Qualified Code(s): E11.22 - Type 2 diabetes mellitus with diabetic chronic kidney disease; N18.3 - Chronic kidney disease, stage 3 (moderate) (7) TBI (traumatic brain injury) Code(s): S06.9X9A - UNSP INTRACRANIAL INJURY W LOC OF UNSP DURATION, INIT Qualifiers: Encounter type: sequela Loss of consciousness presence/duration: with LOC of unspecified duration Qualified Code(s): S06.9X9S - Unspecified intracranial injury with loss of consciousness of unspecified duration, sequela (8) Urqnn-le-doozkmy kidney injury Code(s): N17.9 - ACUTE KIDNEY FAILURE, UNSPECIFIED; N18.9 - CHRONIC KIDNEY DISEASE, UNSPECIFIED (9) [id number] renal failure Code(s): N17.9 - ACUTE KIDNEY FAILURE, UNSPECIFIED; N18.9 - CHRONIC KIDNEY DISEASE, UNSPECIFIED Qualifiers: Acute renal failure type: unspecified Chronic kidney disease stage: stage 3 (moderate) Qualified Code(s): N17.9 - Acute kidney failure, unspecified; N18.3 - Chronic kidney disease, stage 3 (moderate) (10) Hypotension Code(s): I95.9 - HYPOTENSION, UNSPECIFIED (11) Hypotension Code(s): I95.9 - HYPOTENSION, UNSPECIFIED Assessment/Plan ASSESSMENT AND PLAN: GI Bleed/Gastric Dieulafoy Lesion s/p EGD/epi/cautery Acute Blood Loss Anemia Chronic Respiratory Failure Pneumonia h/o Traumatic Brain Injury Functional Quadriplegia Acute on Chronic Renal Failure Atrial Fibrillation DM Dementia Elevated LFTs improving - monitor H/H - protonix - rate control - holding anticoagulation - volume assist control - enteral feeds as tolerated - DVT/GI prophylaxis DR FORMAN
--- NOTE | 2018-03-17 13:40 | PN ---
Progress Note, Physician History of Present Illness: continues to be on the vents temp in 99 no gross fevers comfortable - Current Medication List Current Medications: Active Medications Acetaminophen (Tylenol -) 650 mg PO Q4H PRN PRN Reason: FEVER Last Admin: 03/15/18 17:24 Dose: 650 mg Amino Acids (Prosource No Carb Liquid Pkt) 30 ml PO DAILY@0800 [facility] Last Admin: 03/17/18 08:52 Dose: 30 ml Artificial Tears (Artificial Tears) 2 drop OU BID [facility] Last Admin: 03/17/18 11:49 Dose: 2 drop Atorvastatin Calcium (Lipitor -) 10 mg GT HS [facility] Last Admin: 03/16/18 22:15 Dose: 10 mg Collagenase (Santyl -) 1 applic TP DAILY [facility] Last Admin: 03/17/18 12:15 Dose: 1 applic Diltiazem HCl (Cardizem Injection -) 10 mg IVPUSH Q6H PRN PRN Reason: TACHYCARDIA Last Admin: 03/02/18 09:45 Dose: 10 mg Docusate Sodium (Colace Liquid -) 100 mg PO DAILY PRN PRN Reason: CONSTIPATION Ferrous Sulfate (Feosol) 300 mg GT DAILY [facility] Last Admin: 03/17/18 11:46 Dose: 300 mg Insulin Aspart (Novolog Vial Sliding Scale -) 1 vial SQ [facility]; Protocol Last Admin: 03/17/18 12:32 Dose: 2 units Insulin Detemir (Levemir Vial) 5 units SQ [facility] Last Admin: 03/16/18 22:15 Dose: 5 units Levothyroxine Sodium (Synthroid -) 37.5 mcg PEG DAILY@0700 [facility] Last Admin: 03/17/18 06:38 Dose: 37.5 mcg Metoprolol Tartrate (Lopressor -) 25 mg PO BID [facility] Last Admin: 03/17/18 11:48 Dose: 25 mg Non-Formulary Medication (Non-Formulary Med) 1 each GT DAILY [facility] Last Admin: 03/17/18 11:47 Dose: 1 each Nystatin (Nystop Powder -) 1 applic TP BID [facility] Last Admin: 03/17/18 12:15 Dose: 1 applic Oxybutynin Chloride (Ditropan -) 5 mg NGT BID [facility] Last Admin: 03/17/18 11:48 Dose: 5 mg Pantoprazole Sodium (Protonix Packets For Oral Suspension -) 40 mg NGT DAILY [facility] Last Admin: 03/17/18 11:47 Dose: 40 mg Senna (Senna Oral Solution -) 8.8 mg GT HS [facility] Last Admin: 03/16/18 22:16 Dose: 8.8 mg Sertraline HCl (Zoloft -) 50 mg PO DAILY [facility] Last Admin: 03/17/18 11:46 Dose: 50 mg Tamsulosin HCl (Flomax -) 0.4 mg PO DAILY@0830 [facility] Last Admin: 03/17/18 08:52 Dose: 0.4 mg - Objective Vital Signs: Vital Signs Temperature 99.7 F H 03/17/18 12:00 Pulse Rate 69 03/17/18 11:32 Respiratory Rate 19 03/17/18 12:04 Blood Pressure 136/64 03/17/18 11:32 O2 Sat by Pulse Oximetry (%) 100 03/16/18 21:00 Constitutional: Yes: No Distress, Calm Cardiovascular: Yes: Regular Rate and Rhythm Respiratory: Yes: Mechanically Ventilated, Other Gastrointestinal: Yes: Normal Bowel Sounds, Soft, Other (peg in place) Extremities: Yes: Other Neurological: Yes: Other Labs: CBC, BMP 03/15/18 05:55 03/16/18 06:15 INR, PTT INR 1.13 (0.82-1.09) 02/16/18 22:40 Assessment/Plan Problem List - Problems (1) Anemia Code(s): D64.9 - ANEMIA, UNSPECIFIED (2) Chronic kidney disease, stage 3 Code(s): N18.3 - CHRONIC KIDNEY DISEASE, STAGE 3 (MODERATE) (3) Chronic respiratory failure Code(s): J96.10 - CHRONIC RESPIRATORY FAILURE, UNSP W HYPOXIA OR HYPERCAPNIA Qualifiers: Respiratory failure complication: unspecified whether with hypoxia or hypercapnia Qualified Code(s): J96.10 - Chronic respiratory failure, unspecified whether with hypoxia or hypercapnia (4) PAF (paroxysmal atrial fibrillation) Code(s): I48.0 - PAROXYSMAL ATRIAL FIBRILLATION (5) Renal failure Code(s): N19 - UNSPECIFIED KIDNEY FAILURE Qualifiers: Renal failure chronicity: unspecified chronicity Qualified Code(s): N19 - Unspecified kidney failure (6) Diabetes Code(s): E11.9 - TYPE 2 DIABETES MELLITUS WITHOUT COMPLICATIONS (7) TBI (traumatic brain injury) Code(s): S06.9X9A - UNSP INTRACRANIAL INJURY W LOC OF UNSP DURATION, INIT (8) Ttrrj-uz-fvipzmb kidney injury Code(s): N17.9 - ACUTE KIDNEY FAILURE, UNSPECIFIED; N18.9 - CHRONIC KIDNEY DISEASE, UNSPECIFIED (9) Jnpaa-jf-hhldzxn renal failure Code(s): N17.9 - ACUTE KIDNEY FAILURE, UNSPECIFIED; N18.9 - CHRONIC KIDNEY DISEASE, UNSPECIFIED (10) Hypotension Code(s): I95.9 - HYPOTENSION, UNSPECIFIED (11) Hypotension Code(s): I95.9 - HYPOTENSION, UNSPECIFIED 12 gi bleed 13 difuleoy lesion 14 rash I plan continue to monitor off of abx nutrition rest as per primary care as per pul suctioning if needed final plan awaited watch liver enzymes monitor for fevers
[2018-03-17] MEDS: INSULIN (LEVEMIR) 100 UNITS/ML UNITS SQ SCH (22:57)
[2018-03-17] MEDS: ATORVASTATIN CA 10 MG TABLET (FP) GT SCH (23:22)
[2018-03-17] MEDS: SENNOSIDES 8.8 MG/5 ML BULK BOTTLE GT SCH (23:22)
[2018-03-18] MEDS: LEVOTHYROXINE NA 25 MCG TABLET (FP) PEG SCH (06:34)
[2018-03-18] MEDS: INSULIN SLIDING SCALE (NOVOLOG) 1 VIAL SQ SCH ×4 (06:34→21:50)
[2018-03-18] MEDS: AMINO ACIDS/PROTEIN HYDROLYS 30 ML LIQUID.PKT PO SCH (08:39)
--- NOTE | 2018-03-18 10:03 | PN ---
Progress Note, Physician History of Present Illness: no changes overnight continues to be on vent - Current Medication List Current Medications: Active Medications Acetaminophen (Tylenol -) 650 mg PO Q4H PRN PRN Reason: FEVER Last Admin: 03/15/18 17:24 Dose: 650 mg Amino Acids (Prosource No Carb Liquid Pkt) 30 ml PO DAILY@0800 [facility] Last Admin: 03/17/18 08:52 Dose: 30 ml Artificial Tears (Artificial Tears) 2 drop OU BID [facility] Last Admin: 03/17/18 23:23 Dose: 2 drop Atorvastatin Calcium (Lipitor -) 10 mg GT HS [facility] Last Admin: 03/17/18 23:22 Dose: 10 mg Collagenase (Santyl -) 1 applic TP DAILY [facility] Last Admin: 03/17/18 12:15 Dose: 1 applic Diltiazem HCl (Cardizem Injection -) 10 mg IVPUSH Q6H PRN PRN Reason: TACHYCARDIA Last Admin: 03/02/18 09:45 Dose: 10 mg Docusate Sodium (Colace Liquid -) 100 mg PO DAILY PRN PRN Reason: CONSTIPATION Ferrous Sulfate (Feosol) 300 mg GT DAILY [facility] Last Admin: 03/17/18 11:46 Dose: 300 mg Insulin Aspart (Novolog Vial Sliding Scale -) 1 vial SQ [facility]; Protocol Last Admin: 03/18/18 06:34 Dose: Not Given Insulin Detemir (Levemir Vial) 5 units SQ [facility] Last Admin: 03/17/18 22:57 Dose: 5 units Levothyroxine Sodium (Synthroid -) 37.5 mcg PEG DAILY@0700 [facility] Last Admin: 03/18/18 06:34 Dose: 37.5 mcg Metoprolol Tartrate (Lopressor -) 25 mg PO BID [facility] Last Admin: 03/17/18 23:22 Dose: 25 mg Non-Formulary Medication (Non-Formulary Med) 1 each GT DAILY [facility] Last Admin: 03/17/18 11:47 Dose: 1 each Nystatin (Nystop Powder -) 1 applic TP BID [facility] Last Admin: 03/17/18 23:23 Dose: 1 applic Oxybutynin Chloride (Ditropan -) 5 mg NGT BID [facility] Last Admin: 03/17/18 23:22 Dose: 5 mg Pantoprazole Sodium (Protonix Packets For Oral Suspension -) 40 mg NGT DAILY [facility] Last Admin: 03/17/18 11:47 Dose: 40 mg Senna (Senna Oral Solution -) 8.8 mg GT HS [facility] Last Admin: 03/17/18 23:22 Dose: 8.8 mg Sertraline HCl (Zoloft -) 50 mg PO DAILY [facility] Last Admin: 03/17/18 11:46 Dose: 50 mg Tamsulosin HCl (Flomax -) 0.4 mg PO DAILY@0830 [facility] Last Admin: 03/17/18 08:52 Dose: 0.4 mg - Objective Vital Signs: Vital Signs Temperature 100.1 F H 03/18/18 06:00 Pulse Rate 68 03/18/18 06:00 Respiratory Rate 14 03/18/18 08:34 Blood Pressure 127/58 03/18/18 06:00 O2 Sat by Pulse Oximetry (%) 100 03/17/18 21:00 Constitutional: Yes: No Distress, Calm Cardiovascular: Yes: Pulse Irregular Respiratory: Yes: Mechanically Ventilated, Other Gastrointestinal: Yes: Soft, Other (peg in place) Musculoskeletal: Yes: Other Extremities: Yes: Other Neurological: Yes: Other Psychiatric: Yes: Other Labs: CBC, BMP 03/15/18 05:55 03/16/18 06:15 INR, PTT INR 1.13 (0.82-1.09) 02/16/18 22:40 Assessment/Plan Problem List - Problems (1) Anemia Code(s): D64.9 - ANEMIA, UNSPECIFIED (2) Chronic kidney disease, stage 3 Code(s): N18.3 - CHRONIC KIDNEY DISEASE, STAGE 3 (MODERATE) (3) Chronic respiratory failure Code(s): J96.10 - CHRONIC RESPIRATORY FAILURE, UNSP W HYPOXIA OR HYPERCAPNIA Qualifiers: Respiratory failure complication: unspecified whether with hypoxia or hypercapnia Qualified Code(s): J96.10 - Chronic respiratory failure, unspecified whether with hypoxia or hypercapnia (4) PAF (paroxysmal atrial fibrillation) Code(s): I48.0 - PAROXYSMAL ATRIAL FIBRILLATION (5) Renal failure Code(s): N19 - UNSPECIFIED KIDNEY FAILURE Qualifiers: Renal failure chronicity: unspecified chronicity Qualified Code(s): N19 - Unspecified kidney failure (6) Diabetes Code(s): E11.9 - TYPE 2 DIABETES MELLITUS WITHOUT COMPLICATIONS (7) TBI (traumatic brain injury) Code(s): S06.9X9A - UNSP INTRACRANIAL INJURY W LOC OF UNSP DURATION, INIT (8) Iuizg-ls-ivglcuw kidney injury Code(s): N17.9 - ACUTE KIDNEY FAILURE, UNSPECIFIED; N18.9 - CHRONIC KIDNEY DISEASE, UNSPECIFIED (9) Yxiah-aw-ygyqfrl renal failure Code(s): N17.9 - ACUTE KIDNEY FAILURE, UNSPECIFIED; N18.9 - CHRONIC KIDNEY DISEASE, UNSPECIFIED (10) Hypotension Code(s): I95.9 - HYPOTENSION, UNSPECIFIED (11) Hypotension Code(s): I95.9 - HYPOTENSION, UNSPECIFIED 12 gi bleed 13 difuleoy lesion 14 rash I plan continue to monitor off of abx nutrition rest as per primary care as per pul suctioning if needed final plan awaited watch liver enzymes monitor for fevers
[2018-03-18] MEDS ORDERED: PT OWN MED DRAWER 7, Y5N ONE (10:25)
[2018-03-18] MEDS: METOPROLOL TARTRATE 25 MG TABLET (FP) PO SCH ×3 (10:39→22:29)
[2018-03-18] MEDS: PANTOPRAZOLE SOD 40 MG SUSPENSION PACKET NGT SCH (10:39)
[2018-03-18] MEDS: SERTRALINE HCL 25 MG TABLET (FP) PO SCH (10:39)
[2018-03-18] MEDS: ARTIFICIAL TEARS (POLYVINYL ALCOHOL 1.4%) OPTH DROPS OU SCH ×2 (10:40→21:49)
[2018-03-18] MEDS: OXYBUTYNIN CHLORIDE 5 MG TABLET NGT SCH ×2 (10:40→21:50)
[2018-03-18] MEDS: FERROUS SO4 300 MG/5 ML ORAL SOLN UNIT DOSE CUPS GT SCH (10:45)
[2018-03-18] MEDS: COLLAGENASE CLOSTRIDIUM HIST. 30 GRAMS TUBE TP SCH (10:49)
[2018-03-18] MEDS: NYSTATIN POWDER 100,000 UNITS/GM - 15 GM TOPICAL POWDER TP SCH ×2 (10:49→21:51)
[2018-03-18] MEDS: NON-FORMULARY MED GT SCH (11:08)
--- NOTE | 2018-03-18 11:12 | PN ---
Progress Note, Physician Chief Complaint: Pt on ventilator/trached; clenched fists (chronic); eyes open. History of Present Illness: The patient is an 87 year old white male, with a significant past medical history of traumatic fall (s/p neck (C4,5, and 6)/back surgery, tracheotomy placement now ventilator dependent, and PEG tube placement), frequent pneumonia , emphysema, A-fib, diastolic CHF, DM, dementia, renal failure, nonverbal TBI, paraplegic, legally blind and deaf, who presents to the emergency department via EMS from [facility] with, 3 days of hypotension. Now transferred to ICU after being found to have bright red blood on gastric tube lavage that led to PRBCs and heater probe coagulation. Allergies: NKA Social History: Former smoker (Quit 35 years ago). Denies EtOH use and recreational drug use. - Current Medication List Current Medications: Active Medications Acetaminophen (Tylenol -) 650 mg PO Q4H PRN PRN Reason: FEVER Last Admin: 03/15/18 17:24 Dose: 650 mg Amino Acids (Prosource No Carb Liquid Pkt) 30 ml PO DAILY@0800 [facility] Last Admin: 03/18/18 08:39 Dose: 30 ml Artificial Tears (Artificial Tears) 2 drop OU BID [facility] Last Admin: 03/18/18 10:40 Dose: 2 drop Atorvastatin Calcium (Lipitor -) 10 mg GT HS [facility] Last Admin: 03/17/18 23:22 Dose: 10 mg Collagenase (Santyl -) 1 applic TP DAILY [facility] Last Admin: 03/18/18 10:49 Dose: 1 applic Diltiazem HCl (Cardizem Injection -) 10 mg IVPUSH Q6H PRN PRN Reason: TACHYCARDIA Last Admin: 03/02/18 09:45 Dose: 10 mg Docusate Sodium (Colace Liquid -) 100 mg PO DAILY PRN PRN Reason: CONSTIPATION Ferrous Sulfate (Feosol) 300 mg GT DAILY [facility] Last Admin: 03/18/18 10:45 Dose: 300 mg Insulin Aspart (Novolog Vial Sliding Scale -) 1 vial SQ [facility]; Protocol Last Admin: 03/18/18 06:34 Dose: Not Given Insulin Detemir (Levemir Vial) 5 units SQ HS [facility] Last Admin: 03/17/18 22:57 Dose: 5 units Levothyroxine Sodium (Synthroid -) 37.5 mcg PEG DAILY@0700 [facility] Last Admin: 03/18/18 06:34 Dose: 37.5 mcg Metoprolol Tartrate (Lopressor -) 25 mg PO BID [facility] Last Admin: 03/18/18 10:39 Dose: 25 mg Non-Formulary Medication (Non-Formulary Med) 1 each GT DAILY [facility] Last Admin: 03/17/18 11:47 Dose: 1 each Nystatin (Nystop Powder -) 1 applic TP BID [facility] Last Admin: 03/18/18 10:49 Dose: 1 applic Oxybutynin Chloride (Ditropan -) 5 mg NGT BID [facility] Last Admin: 03/18/18 10:40 Dose: 5 mg Pantoprazole Sodium (Protonix Packets For Oral Suspension -) 40 mg NGT DAILY [facility] Last Admin: 03/18/18 10:39 Dose: 40 mg Senna (Senna Oral Solution -) 8.8 mg GT HS [facility] Last Admin: 03/17/18 23:22 Dose: 8.8 mg Sertraline HCl (Zoloft -) 50 mg PO DAILY [facility] Last Admin: 03/18/18 10:39 Dose: 50 mg Tamsulosin HCl (Flomax -) 0.4 mg PO DAILY@0830 [facility] Last Admin: 03/17/18 08:52 Dose: 0.4 mg - Objective Vital Signs: Vital Signs Temperature 99.5 F 03/18/18 07:35 Pulse Rate 68 03/18/18 06:00 Respiratory Rate 14 03/18/18 08:34 Blood Pressure 127/58 03/18/18 06:00 O2 Sat by Pulse Oximetry (%) 100 03/17/18 21:00 Labs: CBC, BMP 03/15/18 05:55 03/16/18 06:15 INR, PTT INR 1.13 (0.82-1.09) 02/16/18 22:40 Problem List - Problems (1) Anemia Assessment/Plan: s/p EGD, cauterization, and PRBCs. Maintain hydration. F/u BUn/Cr, Hb (8.6 presently). Code(s): D64.9 - ANEMIA, UNSPECIFIED Qualifiers: Anemia type: due to chronic kidney disease Chronic kidney disease stage: unspecified stage Qualified Code(s): N18.9 - Chronic kidney disease, unspecified; D63.1 - Anemia in chronic kidney disease (2) Chronic respiratory failure Assessment/Plan: Ventilator dependent; on trach. Code(s): J96.10 - CHRONIC RESPIRATORY FAILURE, UNSP W HYPOXIA OR HYPERCAPNIA Qualifiers: Respiratory failure complication: unspecified whether with hypoxia or hypercapnia Qualified Code(s): J96.10 - Chronic respiratory failure, unspecified whether with hypoxia or hypercapnia (3) Hematuria Code(s): R31.9 - HEMATURIA, UNSPECIFIED (4) PAF (paroxysmal atrial fibrillation) Assessment/Plan: EKG 02/23/18: AF with RVR (HR 150 bpm); now has HR in 60s-80s bpm. Increased metoprolol to 25 mg bid (pt has required occasional IV diltiazem for rapid VR); f/u HR and BP, and increase metoprolol as tolerated. If pt becomes profoundly bradycardia, will have to consider PPM. anticoagulation held due to GI bleed. TSH 3.59 recently. Code(s): I48.0 - PAROXYSMAL ATRIAL FIBRILLATION (5) S/P percutaneous endoscopic gastrostomy (PEG) tube placement Code(s): Z93.1 - GASTROSTOMY STATUS (6) Acute on chronic diastolic CHF (congestive heart failure) Code(s): I50.33 - ACUTE ON CHRONIC DIASTOLIC (CONGESTIVE) HEART FAILURE (7) Sinus bradycardia Code(s): R00.1 - BRADYCARDIA, UNSPECIFIED (8) TBI (traumatic brain injury) Code(s): S06.9X9A - UNSP INTRACRANIAL INJURY W LOC OF UNSP DURATION, INIT Qualifiers: Encounter type: sequela Loss of consciousness presence/duration: with LOC of unspecified duration Qualified Code(s): S06.9X9S - Unspecified intracranial injury with loss of consciousness of unspecified duration, sequela (9) Severe mitral regurgitation Assessment/Plan: ECHO: normal LVEF; severe MR; normal LA and LV sizes. Code(s): I34.0 - NONRHEUMATIC MITRAL (VALVE) INSUFFICIENCY (10) Hypokalemia Assessment/Plan: Keep K+ 4-4.5 F/u Mg, and keep 2-2.4 Keep PO4 2.5-4.5 Code(s): E87.6 - HYPOKALEMIA (11) Hypoalbuminemia Code(s): E88.09 - OTH DISORDERS OF PLASMA-PROTEIN METABOLISM, NEC
[2018-03-18] MEDS: TAMSULOSIN HCL 0.4 MG CAP.ER.24H (FP) PO SCH (11:19)
--- NOTE | 2018-03-18 11:43 | PN ---
Progress Note (short form) - Note Progress Note: Covering for Dr. Diaz: Asked by nurse to evaluate PEG site because she though piece of intesting proruding from stoma On exam: G-Tube in place in upper abdomen. There was no peripeg erythema/induration or fluctuance. At that cephalad border of the stoma there is redundant tissue. There was no discharge Imp/Plan: Suspect granulation tissue at the cephalad border of the G-Tube Can have surgery take a look at the site however I do do not think interventions will be necessary Problem List - Problems (1) Upper GI bleed Code(s): K92.2 - GASTROINTESTINAL HEMORRHAGE, UNSPECIFIED
--- NOTE | 2018-03-18 11:55 | PN ---
Progress Note (short form) - Note Progress Note: Awake on AC Mode of vent, 28% FiO2. NAD. No acute events overnight. Intake & Output 03/15/18 03/16/18 03/17/18 03/18/18 23:59 23:59 23:59 23:59 Intake Total 2180 2255 2300 1080 Output Total 1150 1250 1500 400 Balance 1030 1005 800 680 Weight 163 lb 1 oz 162 lb 1 oz Last Vital Signs Temp Pulse Resp BP Pulse Ox 99.5 F 68 14 127/58 100 03/18/18 07:35 03/18/18 06:00 03/18/18 08:34 03/18/18 06:00 03/17/18 21:00 Active Medications Acetaminophen (Tylenol -) 650 mg PO Q4H PRN PRN Reason: FEVER Last Admin: 03/15/18 17:24 Dose: 650 mg Amino Acids (Prosource No Carb Liquid Pkt) 30 ml PO DAILY@0800 [facility] Last Admin: 03/18/18 08:39 Dose: 30 ml Artificial Tears (Artificial Tears) 2 drop OU BID [facility] Last Admin: 03/18/18 10:40 Dose: 2 drop Atorvastatin Calcium (Lipitor -) 10 mg GT HS [facility] Last Admin: 03/17/18 23:22 Dose: 10 mg Collagenase (Santyl -) 1 applic TP DAILY [facility] Last Admin: 03/18/18 10:49 Dose: 1 applic Diltiazem HCl (Cardizem Injection -) 10 mg IVPUSH Q6H PRN PRN Reason: TACHYCARDIA Last Admin: 03/02/18 09:45 Dose: 10 mg Docusate Sodium (Colace Liquid -) 100 mg PO DAILY PRN PRN Reason: CONSTIPATION Ferrous Sulfate (Feosol) 300 mg GT DAILY [facility] Last Admin: 03/18/18 10:45 Dose: 300 mg Insulin Aspart (Novolog Vial Sliding Scale -) 1 vial SQ [facility]; Protocol Last Admin: 03/18/18 06:34 Dose: Not Given Insulin Detemir (Levemir Vial) 5 units SQ [facility] Last Admin: 03/17/18 22:57 Dose: 5 units Levothyroxine Sodium (Synthroid -) 37.5 mcg PEG DAILY@0700 [facility] Last Admin: 03/18/18 06:34 Dose: 37.5 mcg Metoprolol Tartrate (Lopressor -) 25 mg PO BID [facility] Last Admin: 03/18/18 10:39 Dose: 25 mg Non-Formulary Medication (Non-Formulary Med) 1 each GT DAILY [facility] Last Admin: 03/18/18 11:08 Dose: 1 each Nystatin (Nystop Powder -) 1 applic TP BID [facility] Last Admin: 03/18/18 10:49 Dose: 1 applic Oxybutynin Chloride (Ditropan -) 5 mg NGT BID [facility] Last Admin: 03/18/18 10:40 Dose: 5 mg Pantoprazole Sodium (Protonix Packets For Oral Suspension -) 40 mg NGT DAILY [facility] Last Admin: 03/18/18 10:39 Dose: 40 mg Senna (Senna Oral Solution -) 8.8 mg GT HS [facility] Last Admin: 03/17/18 23:22 Dose: 8.8 mg Sertraline HCl (Zoloft -) 50 mg PO DAILY [facility] Last Admin: 03/18/18 10:39 Dose: 50 mg Tamsulosin HCl (Flomax -) 0.4 mg PO DAILY@0830 [facility] Last Admin: 03/18/18 11:19 Dose: Not Given Constitutional: Yes: NAD, vented Eyes: Yes: WNL HENT: Yes: WNL Neck: Yes: Supple (trach) Cardiovascular: Yes: Pulse Irregular, S1, S2 Respiratory: Yes: Scattered Rhonchi Gastrointestinal: Yes: Soft, Other (peg) Extremities: Yes: WNL Edema: No Labs: Laboratory Results - last 24 hr 03/17/18 03/17/18 03/17/18 12:31 17:38 22:54 POC Glucometer 153 126 196 03/18/18 06:33 POC Glucometer 127 Problem List - Problems (1) Anemia Code(s): D64.9 - ANEMIA, UNSPECIFIED (2) Chronic kidney disease, stage 3 Code(s): N18.3 - CHRONIC KIDNEY DISEASE, STAGE 3 (MODERATE) (3) Chronic respiratory failure Code(s): J96.10 - CHRONIC RESPIRATORY FAILURE, UNSP W HYPOXIA OR HYPERCAPNIA Qualifiers: Respiratory failure complication: unspecified whether with hypoxia or hypercapnia Qualified Code(s): J96.10 - Chronic respiratory failure, unspecified whether with hypoxia or hypercapnia (4) PAF (paroxysmal atrial fibrillation) Code(s): I48.0 - PAROXYSMAL ATRIAL FIBRILLATION (5) Renal failure Code(s): N19 - UNSPECIFIED KIDNEY FAILURE Qualifiers: Renal failure chronicity: unspecified chronicity Qualified Code(s): N19 - Unspecified kidney failure (6) Diabetes Code(s): E11.9 - TYPE 2 DIABETES MELLITUS WITHOUT COMPLICATIONS Qualifiers: Diabetes mellitus type: type 2 Diabetes mellitus long-term insulin use: unspecified long-term insulin use status Diabetes mellitus complication status : with kidney complications Diabetes mellitus complication detail: with chronic kidney disease Chronic kidney disease stage: stage 3 (moderate) Qualified Code(s): E11.22 - Type 2 diabetes mellitus with diabetic chronic kidney disease; N18.3 - Chronic kidney disease, stage 3 (moderate) (7) TBI (traumatic brain injury) Code(s): S06.9X9A - UNSP INTRACRANIAL INJURY W LOC OF UNSP DURATION, INIT Qualifiers: Encounter type: sequela Loss of consciousness presence/duration: with LOC of unspecified duration Qualified Code(s): S06.9X9S - Unspecified intracranial injury with loss of consciousness of unspecified duration, sequela (8) Daahv-iw-dgqxwrz kidney injury Code(s): N17.9 - ACUTE KIDNEY FAILURE, UNSPECIFIED; N18.9 - CHRONIC KIDNEY DISEASE, UNSPECIFIED (9) Brgra-cm-thruixl renal failure Code(s): N17.9 - ACUTE KIDNEY FAILURE, UNSPECIFIED; N18.9 - CHRONIC KIDNEY DISEASE, UNSPECIFIED Qualifiers: Acute renal failure type: unspecified Chronic kidney disease stage: stage 3 (moderate) Qualified Code(s): N17.9 - Acute kidney failure, unspecified; N18.3 - Chronic kidney disease, stage 3 (moderate) (10) Hypotension Code(s): I95.9 - HYPOTENSION, UNSPECIFIED (11) Hypotension Code(s): I95.9 - HYPOTENSION, UNSPECIFIED Assessment/Plan GI Bleed/Gastric Dieulafoy Lesion s/p EGD/epi/cautery Acute Blood Loss Anemia Chronic Respiratory Failure Pneumonia h/o Traumatic Brain Injury Functional Quadriplegia Acute on Chronic Renal Failure Atrial Fibrillation DM Dementia Elevated LFTs - monitor H/H - protonix - rate control - volume assist control - enteral feeds as tolerated - DVT/GI prophylaxis Dr Lr
--- NOTE | 2018-03-18 12:32 | PN ---
Teaching Attending Note Name of Resident: Erica See ATTENDING PHYSICIAN STATEMENT I saw and evaluated the patient. I reviewed the resident's note and discussed the case with the resident. I agree with the resident's findings and plan as documented. SUBJECTIVE:resting comfortable OBJECTIVE: Last Vital Signs Temp Pulse Resp BP Pulse Ox 99.5 F 68 15 127/58 100 03/18/18 07:35 03/18/18 06:00 03/18/18 12:18 03/18/18 06:00 03/17/18 21:00 General NAD, spontaneous eye opening Abdomen soft +distended. 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 Admitted on 02/17/18 from [facility] chronic respiratory failure and severe anemia with a hg of 5.5 and hypotension. 1. Acute on chronic respiratory failure- due to aspiration PNA. now improved. has returned to baseline vent settings. not weanable due to poor mental status. off steroids. pulmonary on board 2. Aspiration PNA-completed extended course of zosyn. off all abx now. ID on board 3. macular rash-possible drug reaction vs heat rash. now resolved. 4. acute transaminitis- possible cholestasis? similar episode on 02/01/18. trending down. no workup necessary at this time 7. Multifactorial anemia with Upper GI bleed- s/p EGD with Diluefoy lesion s/p heat probe and epi. s/p 11 units PRBC this hospital stay. Hgb stable. no indication for transfusion. hematology on board. on iron supplementation 8. Acute on CKD- hypoperfusion. stable. likely new baseline. elevated BUN likely due to GI bleed. nephro on board 9. new onset afib- rate controlled. cont metoprolol. not a candidate for anticoagulation iwth recent GI bleed. echo reviewed. cardio on board 10. Hypernatremia- resolved. cont water flushes. 11. Thrombophilia-stable. off medications 12. DM-improved. cont levemir. cont iss. titrate as needed to optimize control 13. TBI- s/p trach and PEG. 14. 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 15. legally blind and deaf 16. hypothyroid- on Lt4 17. urinary incontinence- with chronic indwelling christopher. cont oxybutin/flomax 18. depression- on zoloft 19. DVT ppx- SCD. would hold pharmacologic anticoagulation with recent GI bleed 20. medically optimized at this time. Family wanted [facility] however insurance denied. now pursuing [facility]. awaiting to hear from insurance
[2018-03-18] MEDS: FINASTERIDE 5 MG TABLET (FP) PO SCH (14:05)
--- NOTE | 2018-03-18 16:12 | PN ---
Physical Exam: SUBJECTIVE: Patient seen and examined at bedside this morning. Patient was resting comfortably and opened his eyes when his name was called. Nursing staff was concerned about the tissue surrounding the peg tube. Otherwise no acute overnight events as per nursing. OBJECTIVE: Vital Signs Period Temp Pulse Resp BP Sys/Wills Pulse Ox Last 24 Hr 98.3 F-100.3 F 57-74 14-18 121-131/58-64 100-100 GENERAL: Resting comfortably, spontaneous eye opening LUNGS: Mechanical Breath sounds anteriorly, decreased effort HEART: Regular rate and rhythm, S1, S2 without murmur, rub or gallop ABDOMEN: Soft, normoactive bowel sounds, distended, PEG tube present without bleeding, drainage or erythema, Small granulation tissue at the cephalad portion of the PEG Tube : Christopher catheter present draining Clear, yellow urine NEUROLOGICAL: Upper extremities contracted b/l Laboratory Results - last 24 hr 03/17/18 03/17/18 03/18/18 17:38 22:54 06:33 POC Glucometer 126 196 127 03/18/18 12:14 POC Glucometer 140 Active Medications Acetaminophen (Tylenol -) 650 mg PO Q4H PRN PRN Reason: FEVER Last Admin: 03/15/18 17:24 Dose: 650 mg Amino Acids (Prosource No Carb Liquid Pkt) 30 ml PO DAILY@0800 [facility] Last Admin: 03/18/18 08:39 Dose: 30 ml Artificial Tears (Artificial Tears) 2 drop OU BID [facility] Last Admin: 03/18/18 10:40 Dose: 2 drop Atorvastatin Calcium (Lipitor -) 10 mg GT HS [facility] Last Admin: 03/17/18 23:22 Dose: 10 mg Collagenase (Santyl -) 1 applic TP DAILY [facility] Last Admin: 03/18/18 10:49 Dose: 1 applic Diltiazem HCl (Cardizem Injection -) 10 mg IVPUSH Q6H PRN PRN Reason: TACHYCARDIA Last Admin: 03/02/18 09:45 Dose: 10 mg Docusate Sodium (Colace Liquid -) 100 mg PO DAILY PRN PRN Reason: CONSTIPATION Ferrous Sulfate (Feosol) 300 mg GT DAILY [facility] Last Admin: 03/18/18 10:45 Dose: 300 mg Finasteride (Proscar -) 5 mg PO DAILY [facility] Insulin Aspart (Novolog Vial Sliding Scale -) 1 vial SQ ACHS [facility]; Protocol Last Admin: 03/18/18 06:34 Dose: Not Given Insulin Detemir (Levemir Vial) 5 units SQ HS [facility] Last Admin: 03/17/18 22:57 Dose: 5 units Levothyroxine Sodium (Synthroid -) 37.5 mcg PEG DAILY@0700 [facility] Last Admin: 03/18/18 06:34 Dose: 37.5 mcg Metoprolol Tartrate (Lopressor -) 25 mg PO BID [facility] Last Admin: 03/18/18 10:39 Dose: 25 mg Non-Formulary Medication (Non-Formulary Med) 1 each GT DAILY [facility] Last Admin: 03/18/18 11:08 Dose: 1 each Nystatin (Nystop Powder -) 1 applic TP BID [facility] Last Admin: 03/18/18 10:49 Dose: 1 applic Oxybutynin Chloride (Ditropan -) 5 mg NGT BID [facility] Last Admin: 03/18/18 10:40 Dose: 5 mg Pantoprazole Sodium (Protonix Packets For Oral Suspension -) 40 mg NGT DAILY [facility] Last Admin: 03/18/18 10:39 Dose: 40 mg Senna (Senna Oral Solution -) 8.8 mg GT HS [facility] Last Admin: 03/17/18 23:22 Dose: 8.8 mg Sertraline HCl (Zoloft -) 50 mg PO DAILY [facility] Last Admin: 03/18/18 10:39 Dose: 50 mg ASSESSMENT/PLAN: 87 year old male with a PMHx significant for Diastolic heart failure, NIDDM, CKD , and 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 Admitted on 02/17/18 from [facility] for chronic respiratory failure and severe anemia with a hg of 5.5 and hypotension. 1. Multifactorial anemia with UGIB - s/p EGD with Diluefoy lesion - s/p heat probe and epi - s/p 10 units PRBC this hospital stay - Hgb currently stable, 8.5 this morning, No signs of Active bleeding - 1 Unit Packed RBC Transfused on 03/11 - GI (Dr. Diaz) Consulted, appreciate recommendations, - Glucerna Tube feeds being tolerated well - Experiences recurrent hypoglycemia in the morning, discontinued levemir currently, will continue to monitor - Abdominal XRay: : Functional PEG tube with tip in stomach. No sign of obstruction or leak - Family concerned for abdominal bloating, Serial abdomen exams, continue to monitor - Hematology consulted, Appreciate recommendations - Continue Ferrous Sulfate 300 mg GT DAILY [facility] 2. Acute on chronic respiratory failure - Due to aspiration PNA that has now improved, patient has returned to baseline vent settings - Not weanable due to poor mental status - Pulmonary consulted, Appreciate recommendations 3. Aspiration PNA - Completed course of Zosyn, Not on any other ABx - ID (Dr. Garza) consulted, Appreciate recommendations 4. Acute Transaminitis - AST/ALT Trending down - Has hx of similar episode on 02/01/18 that self-resolved - Will continue to monitor 5. Acute on CKD - Hypoperfusion - BUN remains elevated, likely due to GI bleed - Cr remains elevated - No longer on steroids - Will continue to monitor - Nephrology consulted, Appreciate recommendations 6. New onset Afib - rate controlled, Continue Metoprolol Tartrate 25 mg PO BID [facility] - Not a candidate for anticoagulation due to recent GI bleed - Cardiology consulted, Appreciate recommendations 7. Hypernatremia - resolved - will continue water flushes and monitor 8. Thrombophilia - stable off medications 9. DM - Improved - Continue Insulin Aspart SQ ACHS [place] - Continue Insulin Detemir SQ HS [facility] 10. 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 Hypothyroid - Continue Synthroid 37.5 mcg PEG DAILY @ 0700 [facility] 12. Urinary incontinence - Chronic indwelling christopher. cont oxybutin/flomax - Flomax changed to Proscar - Continue Oxybutynin Chloride 5 mg BID [facility] 13. Depression - Continue on Sertraline HCl 50 mg PO DAILY [facility] 14. DVT ppx - SCD - Not a candidate for anticoagulation due to recent GI Bleed Dispo: Waiting for insurance to approve [place] Visit type - Emergency Visit Emergency Visit: No - New Patient This patient is new to me today: No - Critical Care Critical Care patient: No
[2018-03-18] MEDS: INSULIN (LEVEMIR) 100 UNITS/ML UNITS SQ SCH (21:50)
[2018-03-18] MEDS: ATORVASTATIN CA 10 MG TABLET (FP) GT SCH (21:50)
[2018-03-18] MEDS: SENNOSIDES 8.8 MG/5 ML BULK BOTTLE GT SCH (21:51)
[2018-03-19] MEDS: INSULIN SLIDING SCALE (NOVOLOG) 1 VIAL SQ SCH ×4 (06:18→22:54)
[2018-03-19] MEDS: LEVOTHYROXINE NA 25 MCG TABLET (FP) PEG SCH (06:19)
[2018-03-19] MEDS: AMINO ACIDS/PROTEIN HYDROLYS 30 ML LIQUID.PKT PO SCH (08:59)
[2018-03-19] MEDS ORDERED: PT OWN MED DRAWER 7, Y5N ONE ×2 (09:01→22:38)
[2018-03-19] MEDS: FINASTERIDE 5 MG TABLET (FP) PO SCH (09:11)
[2018-03-19] MEDS: PANTOPRAZOLE SOD 40 MG SUSPENSION PACKET NGT SCH (09:11)
[2018-03-19] MEDS: SERTRALINE HCL 25 MG TABLET (FP) PO SCH (09:11)
[2018-03-19] MEDS: METOPROLOL TARTRATE 25 MG TABLET (FP) PO SCH ×2 (09:11→22:47)
[2018-03-19] MEDS: FERROUS SO4 300 MG/5 ML ORAL SOLN UNIT DOSE CUPS GT SCH (09:11)
[2018-03-19] MEDS: OXYBUTYNIN CHLORIDE 5 MG TABLET NGT SCH ×2 (09:11→22:47)
[2018-03-19] MEDS: ARTIFICIAL TEARS (POLYVINYL ALCOHOL 1.4%) OPTH DROPS OU SCH ×2 (09:12→22:47)
[2018-03-19] MEDS: NON-FORMULARY MED GT SCH (09:13)
[2018-03-19] MEDS: COLLAGENASE CLOSTRIDIUM HIST. 30 GRAMS TUBE TP SCH (09:13)
[2018-03-19] MEDS: NYSTATIN POWDER 100,000 UNITS/GM - 15 GM TOPICAL POWDER TP SCH ×2 (09:13→22:49)
--- NOTE | 2018-03-19 11:40 | PN ---
Teaching Attending Note Name of Resident: Erica See ATTENDING PHYSICIAN STATEMENT I saw and evaluated the patient. I reviewed the resident's note and discussed the case with the resident. I agree with the resident's findings and plan as documented. SUBJECTIVE: resting comfortbale OBJECTIVE: Last Vital Signs Temp Pulse Resp BP Pulse Ox 99.2 F 57 L 17 129/50 97 03/19/18 09:22 03/19/18 09:22 03/19/18 11:16 03/19/18 09:22 03/19/18 11:17 General NAD, spontaneous eye opening Abdomen soft less distended. 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 Admitted on 02/17/18 from [facility] chronic respiratory failure and severe anemia with a hg of 5.5 and hypotension. 1. Acute on chronic respiratory failure- due to aspiration PNA. now improved. has returned to baseline vent settings. not weanable due to poor mental status. off steroids. pulmonary on board 2. Aspiration PNA-completed extended course of zosyn. off all abx now. ID on board 3. macular rash-possible drug reaction vs heat rash. now resolved. 4. acute transaminitis- possible cholestasis? similar episode on 02/01/18. trending down. no workup necessary at this time 7. Multifactorial anemia with Upper GI bleed- s/p EGD with Diluefoy lesion s/p heat probe and epi. s/p 11 units PRBC this hospital stay. Hgb stable. no indication for transfusion. hematology on board. on iron supplementation 8. Acute on CKD- hypoperfusion. stable. likely new baseline. elevated BUN likely due to GI bleed. nephro on board 9. new onset afib- rate controlled. cont metoprolol. not a candidate for anticoagulation iwth recent GI bleed. echo reviewed. cardio on board 10. Hypernatremia- resolved. cont water flushes. 11. Thrombophilia-stable. off medications 12. DM-improved. cont levemir. cont iss. titrate as needed to optimize control 13. TBI- s/p trach and PEG. 14. 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 15. legally blind and deaf 16. hypothyroid- on Lt4 17. urinary incontinence- with chronic indwelling christopher. cont oxybutin/flomax 18. depression- on zoloft 19. DVT ppx- SCD. would hold pharmacologic anticoagulation with recent GI bleed 20. medically optimized at this time. insurance denied [place]. Awaiting to hear from insurance about auth for [facility]. if not accepted will need to pursue SNF. OTIS sent out today.
--- NOTE | 2018-03-19 11:53 | PN ---
Progress Note, Physician History of Present Illness: no overnight events no fevers 99 - Current Medication List Current Medications: Active Medications Acetaminophen (Tylenol -) 650 mg PO Q4H PRN PRN Reason: FEVER Last Admin: 03/15/18 17:24 Dose: 650 mg Amino Acids (Prosource No Carb Liquid Pkt) 30 ml PO DAILY@0800 [facility] Last Admin: 03/19/18 08:59 Dose: 30 ml Artificial Tears (Artificial Tears) 2 drop OU BID [facility] Last Admin: 03/19/18 09:12 Dose: 2 drop Atorvastatin Calcium (Lipitor -) 10 mg GT HS [facility] Last Admin: 03/18/18 21:50 Dose: 10 mg Collagenase (Santyl -) 1 applic TP DAILY [facility] Last Admin: 03/19/18 09:13 Dose: 1 applic Diltiazem HCl (Cardizem Injection -) 10 mg IVPUSH Q6H PRN PRN Reason: TACHYCARDIA Last Admin: 03/02/18 09:45 Dose: 10 mg Docusate Sodium (Colace Liquid -) 100 mg PO DAILY PRN PRN Reason: CONSTIPATION Ferrous Sulfate (Feosol) 300 mg GT DAILY [facility] Last Admin: 03/19/18 09:11 Dose: 300 mg Finasteride (Proscar -) 5 mg PO DAILY [facility] Last Admin: 03/19/18 09:11 Dose: 5 mg Insulin Aspart (Novolog Vial Sliding Scale -) 1 vial SQ [facility]; Protocol Last Admin: 03/19/18 06:18 Dose: Not Given Insulin Detemir (Levemir Vial) 5 units SQ [facility] Last Admin: 03/18/18 21:50 Dose: 5 units Levothyroxine Sodium (Synthroid -) 37.5 mcg PEG DAILY@0700 [facility] Last Admin: 03/19/18 06:19 Dose: 37.5 mcg Metoprolol Tartrate (Lopressor -) 25 mg PO BID [facility] Last Admin: 03/19/18 09:11 Dose: 25 mg Non-Formulary Medication (Non-Formulary Med) 1 each GT DAILY [facility] Last Admin: 03/19/18 09:13 Dose: 1 each Nystatin (Nystop Powder -) 1 applic TP BID [facility] Last Admin: 03/19/18 09:13 Dose: 1 applic Oxybutynin Chloride (Ditropan -) 5 mg NGT BID [facility] Last Admin: 03/19/18 09:11 Dose: 5 mg Pantoprazole Sodium (Protonix Packets For Oral Suspension -) 40 mg NGT DAILY [facility] Last Admin: 03/19/18 09:11 Dose: 40 mg Senna (Senna Oral Solution -) 8.8 mg GT HS [facility] Last Admin: 03/18/18 21:51 Dose: Not Given Sertraline HCl (Zoloft -) 50 mg PO DAILY [facility] Last Admin: 03/19/18 09:11 Dose: 50 mg - Objective Vital Signs: Vital Signs Temperature 99.2 F 03/19/18 09:22 Pulse Rate 57 L 03/19/18 09:22 Respiratory Rate 17 03/19/18 11:16 Blood Pressure 129/50 03/19/18 09:22 O2 Sat by Pulse Oximetry (%) 97 03/19/18 11:17 Constitutional: Yes: No Distress, Calm Cardiovascular: Yes: Pulse Irregular Respiratory: Yes: Mechanically Ventilated, Poor Air Entry Gastrointestinal: Yes: Normal Bowel Sounds, Soft, Other (peg) Extremities: Yes: Other Neurological: Yes: Other Labs: CBC, BMP 03/15/18 05:55 03/16/18 06:15 INR, PTT INR 1.13 (0.82-1.09) 02/16/18 22:40 Assessment/Plan Problem List - Problems (1) Anemia Code(s): D64.9 - ANEMIA, UNSPECIFIED (2) Chronic kidney disease, stage 3 Code(s): N18.3 - CHRONIC KIDNEY DISEASE, STAGE 3 (MODERATE) (3) Chronic respiratory failure Code(s): J96.10 - CHRONIC RESPIRATORY FAILURE, UNSP W HYPOXIA OR HYPERCAPNIA Qualifiers: Respiratory failure complication: unspecified whether with hypoxia or hypercapnia Qualified Code(s): J96.10 - Chronic respiratory failure, unspecified whether with hypoxia or hypercapnia (4) PAF (paroxysmal atrial fibrillation) Code(s): I48.0 - PAROXYSMAL ATRIAL FIBRILLATION (5) Renal failure Code(s): N19 - UNSPECIFIED KIDNEY FAILURE Qualifiers: Renal failure chronicity: unspecified chronicity Qualified Code(s): N19 - Unspecified kidney failure (6) Diabetes Code(s): E11.9 - TYPE 2 DIABETES MELLITUS WITHOUT COMPLICATIONS (7) TBI (traumatic brain injury) Code(s): S06.9X9A - UNSP INTRACRANIAL INJURY W LOC OF UNSP DURATION, INIT (8) Kwwcz-hy-sjlsymk kidney injury Code(s): N17.9 - ACUTE KIDNEY FAILURE, UNSPECIFIED; N18.9 - CHRONIC KIDNEY DISEASE, UNSPECIFIED (9) Nxfgq-cu-jizepoz renal failure Code(s): N17.9 - ACUTE KIDNEY FAILURE, UNSPECIFIED; N18.9 - CHRONIC KIDNEY DISEASE, UNSPECIFIED (10) Hypotension Code(s): I95.9 - HYPOTENSION, UNSPECIFIED (11) Hypotension Code(s): I95.9 - HYPOTENSION, UNSPECIFIED 12 gi bleed 13 difuleoy lesion 14 rash I plan continue to monitor off of abx nutrition rest as per primary care as per pul suctioning if needed final plan awaited watch liver enzymes monitor for fevers
--- NOTE | 2018-03-19 12:35 | PN ---
Progress Note, Physician History of Present Illness: 87M w/ pmh of traumatic fall (s/p neck (C4,5, and 6)/back surgery, tracheotomy placement now ventilator dependent, and PEG tube placement), frequent pneumonia , emphysema, A-fib, CHF, DM, dementia, renal failure, nonverbal TBI, paraplegia , and legal blindness and deafness, who presents to the emergency department via EMS from [facility] with 3 days of hypotension. As per patients son , his blood pressure has been decreasing over the past few days. He reports that at baseline, his systolic is between 110-119 in the mornings and between 100-109 at night. Pt has failed 5 weaning trials in the last few days, and it was noticed that there was blood around the tracheostomy site when suctioning. Pt' son denies recent fevers, chills, chest pain, emesis, hematemesis, melena, and hematochezia in pt. - Current Medication List Current Medications: Active Medications Acetaminophen (Tylenol -) 650 mg PO Q4H PRN PRN Reason: FEVER Last Admin: 03/15/18 17:24 Dose: 650 mg Amino Acids (Prosource No Carb Liquid Pkt) 30 ml PO DAILY@0800 [facility] Last Admin: 03/19/18 08:59 Dose: 30 ml Artificial Tears (Artificial Tears) 2 drop OU BID [facility] Last Admin: 03/19/18 09:12 Dose: 2 drop Atorvastatin Calcium (Lipitor -) 10 mg GT HS [facility] Last Admin: 03/18/18 21:50 Dose: 10 mg Collagenase (Santyl -) 1 applic TP DAILY [facility] Last Admin: 03/19/18 09:13 Dose: 1 applic Diltiazem HCl (Cardizem Injection -) 10 mg IVPUSH Q6H PRN PRN Reason: TACHYCARDIA Last Admin: 03/02/18 09:45 Dose: 10 mg Docusate Sodium (Colace Liquid -) 100 mg PO DAILY PRN PRN Reason: CONSTIPATION Ferrous Sulfate (Feosol) 300 mg GT DAILY [facility] Last Admin: 03/19/18 09:11 Dose: 300 mg Finasteride (Proscar -) 5 mg PO DAILY [facility] Last Admin: 03/19/18 09:11 Dose: 5 mg Insulin Aspart (Novolog Vial Sliding Scale -) 1 vial SQ [facility]; Protocol Last Admin: 03/19/18 06:18 Dose: Not Given Insulin Detemir (Levemir Vial) 5 units SQ HS [facility] Last Admin: 03/18/18 21:50 Dose: 5 units Levothyroxine Sodium (Synthroid -) 37.5 mcg PEG DAILY@0700 [facility] Last Admin: 03/19/18 06:19 Dose: 37.5 mcg Metoprolol Tartrate (Lopressor -) 25 mg PO BID [facility] Last Admin: 03/19/18 09:11 Dose: 25 mg Non-Formulary Medication (Non-Formulary Med) 1 each GT DAILY [facility] Last Admin: 03/19/18 09:13 Dose: 1 each Nystatin (Nystop Powder -) 1 applic TP BID [facility] Last Admin: 03/19/18 09:13 Dose: 1 applic Oxybutynin Chloride (Ditropan -) 5 mg NGT BID [facility] Last Admin: 03/19/18 09:11 Dose: 5 mg Pantoprazole Sodium (Protonix Packets For Oral Suspension -) 40 mg NGT DAILY [facility] Last Admin: 03/19/18 09:11 Dose: 40 mg Senna (Senna Oral Solution -) 8.8 mg GT HS [facility] Last Admin: 03/18/18 21:51 Dose: Not Given Sertraline HCl (Zoloft -) 50 mg PO DAILY [facility] Last Admin: 03/19/18 09:11 Dose: 50 mg - Objective Vital Signs: Vital Signs Temperature 99.2 F 03/19/18 09:22 Pulse Rate 57 L 03/19/18 09:22 Respiratory Rate 17 03/19/18 11:16 Blood Pressure 129/50 03/19/18 09:22 O2 Sat by Pulse Oximetry (%) 97 03/19/18 11:17 Eyes: Yes: WNL, Conjunctiva Clear, EOM Intact HENT: Yes: WNL, Atraumatic, Normocephalic Neck: Yes: WNL, Supple, Trachea Midline Cardiovascular: Yes: WNL, Regular Rate and Rhythm Respiratory: Yes: Mechanically Ventilated Gastrointestinal: Yes: WNL, Normal Bowel Sounds Genitourinary: Yes: WNL Musculoskeletal: Yes: WNL Extremities: Yes: WNL Edema: No Integumentary: Yes: WNL Neurological: Yes: WNL, Alert, Oriented ...Motor Strength: WNL Psychiatric: Yes: WNL Labs: CBC, BMP 03/15/18 05:55 03/16/18 06:15 INR, PTT INR 1.13 (0.82-1.09) 02/16/18 22:40 Assessment/Plan Problems (1) Anemia Assessment/Plan: s/p EGD, cauterization, and PRBCs. Maintain hydration. F/u BUn/Cr, Hb (86 presently). Code(s): D64.9 - ANEMIA, UNSPECIFIED Qualifiers: Anemia type: due to chronic kidney disease Chronic kidney disease stage: unspecified stage Qualified Code(s): N18.9 - Chronic kidney disease, unspecified; D63.1 - Anemia in chronic kidney disease (2) Chronic respiratory failure Assessment/Plan: Ventilator dependent; on trach. Code(s): J96.10 - CHRONIC RESPIRATORY FAILURE, UNSP W HYPOXIA OR HYPERCAPNIA Qualifiers: Respiratory failure complication: unspecified whether with hypoxia or hypercapnia Qualified Code(s): J96.10 - Chronic respiratory failure, unspecified whether with hypoxia or hypercapnia (3) Hematuria Code(s): R31.9 - HEMATURIA, UNSPECIFIED (4) PAF (paroxysmal atrial fibrillation) Assessment/Plan: EKG 02/23/18: AF with RVR (HR 150 bpm); now has HR in 80s bpm. Increased metoprolol to 25 mg bid (pt has required occasional IV diltiazem for rapid VR); f/u HR and BP, and increase metoprolol as tolerated. If pt becomes profoundly bradycardia, will have to consider PPM. anticoagulation held due to GI bleed. TSH 3.59 recently. Code(s): I48.0 - PAROXYSMAL ATRIAL FIBRILLATION (5) S/P percutaneous endoscopic gastrostomy (PEG) tube placement Code(s): Z93.1 - GASTROSTOMY STATUS (6) Acute on chronic diastolic CHF (congestive heart failure) Code(s): I50.33 - ACUTE ON CHRONIC DIASTOLIC (CONGESTIVE) HEART FAILURE (7) Sinus bradycardia Code(s): R00.1 - BRADYCARDIA, UNSPECIFIED (8) TBI (traumatic brain injury) Code(s): S06.9X9A - UNSP INTRACRANIAL INJURY W LOC OF UNSP DURATION, INIT Qualifiers: Encounter type: sequela Loss of consciousness presence/duration: with LOC of unspecified duration Qualified Code(s): S06.9X9S - Unspecified intracranial injury with loss of consciousness of unspecified duration, sequela (9) Severe mitral regurgitation Code(s): I34.0 - NONRHEUMATIC MITRAL (VALVE) INSUFFICIENCY (10) Hypokalemia Code(s): E87.6 - HYPOKALEMIA (11) Hypoalbuminemia Code(s): E88.09 - OTH DISORDERS OF PLASMA-PROTEIN METABOLISM, NEC
--- NOTE | 2018-03-19 14:21 | PN ---
Progress Note (short form) - Note Progress Note: PULMONARY Vented on volume assist control. Low grade temps continue Gen: vented Heart: RRR Lung: decreased breath sounds at the bases Abd: soft, nontender Ext: no edema labs/meds/notes/images/micro reviewed hgb 8.6 A/P GI Bleed/Gastric Dieulafoy Lesion s/p EGD/epi/cautery Acute Blood Loss Anemia Chronic Respiratory Failure Pneumonia h/o Traumatic Brain Injury Functional Quadriplegia Acute on Chronic Renal Failure Atrial Fibrillation DM Dementia - monitor H/H - protonix - antibiotics per ID - rate control - holding anticoagulation - continue volume assist control - poor candidate for weaning due to poor mental status - enteral feeds as tolerated - DVT/GI prophylaxis Tony DE LA O MD
--- NOTE | 2018-03-19 19:49 | PN ---
Physical Exam: SUBJECTIVE: Patient seen and examined at bedside this morning resting comfortably. No acute overnight events as per nursing. OBJECTIVE: Vital Signs Period Temp Pulse Resp BP Sys/Wills Pulse Ox Last 24 Hr 97.8 F-99.7 F 57-68 14-20 114-129/47-66 97-100 GENERAL: Resting comfortably, spontaneous eye opening LUNGS: Mechanical Breath sounds anteriorly, decreased effort HEART: Regular rate and rhythm, S1, S2 without murmur, rub or gallop ABDOMEN: Soft, normoactive bowel sounds, distended, PEG tube present without bleeding, drainage or erythema, Small granulation tissue at the cephalad portion of the PEG Tube : Christopher catheter present draining Clear, yellow urine NEUROLOGICAL: Upper extremities contracted b/l Laboratory Results - last 24 hr 03/18/18 03/19/18 03/19/18 20:54 01:24 05:39 POC Glucometer 194 117 119 03/19/18 03/19/18 13:00 17:42 POC Glucometer 136 177 Active Medications Acetaminophen (Tylenol -) 650 mg PO Q4H PRN PRN Reason: FEVER Last Admin: 03/15/18 17:24 Dose: 650 mg Amino Acids (Prosource No Carb Liquid Pkt) 30 ml PO DAILY@0800 [facility] Last Admin: 03/19/18 08:59 Dose: 30 ml Artificial Tears (Artificial Tears) 2 drop OU BID [facility] Last Admin: 03/19/18 09:12 Dose: 2 drop Atorvastatin Calcium (Lipitor -) 10 mg GT HS [facility] Last Admin: 03/18/18 21:50 Dose: 10 mg Collagenase (Santyl -) 1 applic TP DAILY [facility] Last Admin: 03/19/18 09:13 Dose: 1 applic Diltiazem HCl (Cardizem Injection -) 10 mg IVPUSH Q6H PRN PRN Reason: TACHYCARDIA Last Admin: 03/02/18 09:45 Dose: 10 mg Docusate Sodium (Colace Liquid -) 100 mg PO DAILY PRN PRN Reason: CONSTIPATION Ferrous Sulfate (Feosol) 300 mg GT DAILY [facility] Last Admin: 03/19/18 09:11 Dose: 300 mg Finasteride (Proscar -) 5 mg PO DAILY [facility] Last Admin: 03/19/18 09:11 Dose: 5 mg Insulin Aspart (Novolog Vial Sliding Scale -) 1 vial SQ [facility]; Protocol Last Admin: 03/19/18 17:44 Dose: 2 units Insulin Detemir (Levemir Vial) 5 units SQ HS [facility] Last Admin: 03/18/18 21:50 Dose: 5 units Levothyroxine Sodium (Synthroid -) 37.5 mcg PEG DAILY@0700 [facility] Last Admin: 03/19/18 06:19 Dose: 37.5 mcg Metoprolol Tartrate (Lopressor -) 25 mg PO BID [facility] Last Admin: 03/19/18 09:11 Dose: 25 mg Non-Formulary Medication (Non-Formulary Med) 1 each GT DAILY [facility] Last Admin: 03/19/18 09:13 Dose: 1 each Nystatin (Nystop Powder -) 1 applic TP BID [facility] Last Admin: 03/19/18 09:13 Dose: 1 applic Oxybutynin Chloride (Ditropan -) 5 mg NGT BID [facility] Last Admin: 03/19/18 09:11 Dose: 5 mg Pantoprazole Sodium (Protonix Packets For Oral Suspension -) 40 mg NGT DAILY [facility] Last Admin: 03/19/18 09:11 Dose: 40 mg Senna (Senna Oral Solution -) 8.8 mg GT HS [facility] Last Admin: 03/18/18 21:51 Dose: Not Given Sertraline HCl (Zoloft -) 50 mg PO DAILY [facility] Last Admin: 03/19/18 09:11 Dose: 50 mg ASSESSMENT/PLAN: 87 year old male with a PMHx significant for Diastolic heart failure, NIDDM, CKD , and 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 Admitted on 02/17/18 from [facility] for chronic respiratory failure and severe anemia with a hg of 5.5 and hypotension. 1. Multifactorial anemia with UGIB - s/p EGD with Diluefoy lesion - s/p heat probe and epi - s/p 10 units PRBC this hospital stay - Hgb currently stable, 8.5 this morning, No signs of Active bleeding - 1 Unit Packed RBC Transfused on 03/11 - GI (Dr. Diaz) Consulted, appreciate recommendations, - Glucerna Tube feeds being tolerated well - Experiences recurrent hypoglycemia in the morning, discontinued levemir currently, will continue to monitor - Abdominal XRay: : Functional PEG tube with tip in stomach. No sign of obstruction or leak - Family concerned for abdominal bloating, Serial abdomen exams, continue to monitor - Hematology consulted, Appreciate recommendations - Continue Ferrous Sulfate 300 mg GT DAILY [facility] 2. Acute on chronic respiratory failure - Due to aspiration PNA that has now improved, patient has returned to baseline vent settings - Not weanable due to poor mental status - Pulmonary consulted, Appreciate recommendations 3. Aspiration PNA - Completed course of Zosyn, Not on any other ABx - ID (Dr. Garza) consulted, Appreciate recommendations 4. Acute Transaminitis - AST/ALT Trending down - Has hx of similar episode on 02/01/18 that self-resolved - Will continue to monitor 5. Acute on CKD - Hypoperfusion - BUN remains elevated, likely due to GI bleed - Cr remains elevated - No longer on steroids - Will continue to monitor - Nephrology consulted, Appreciate recommendations 6. New onset Afib - rate controlled, Continue Metoprolol Tartrate 25 mg PO BID [facility] - Not a candidate for anticoagulation due to recent GI bleed - Cardiology consulted, Appreciate recommendations 7. Hypernatremia - resolved - will continue water flushes and monitor 8. Thrombophilia - stable off medications 9. DM - Improved - Continue Insulin Aspart SQ ACHS [facility] - Continue Insulin Detemir SQ HS [facility] 10. 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 Hypothyroid - Continue Synthroid 37.5 mcg PEG DAILY @ 0700 [facility] 12. Urinary incontinence - Chronic indwelling christopher. cont oxybutin/flomax - Flomax changed to Proscar - Continue Oxybutynin Chloride 5 mg BID [facility] 13. Depression - Continue on Sertraline HCl 50 mg PO DAILY [facility] 14. DVT ppx - SCD - Not a candidate for anticoagulation due to recent GI Bleed Dispo: Waiting for insurance to approve [facility]/SNF Visit type - Emergency Visit Emergency Visit: No - New Patient This patient is new to me today: No - Critical Care Critical Care patient: No
[2018-03-19] MEDS: ATORVASTATIN CA 10 MG TABLET (FP) GT SCH (22:47)
[2018-03-19] MEDS: SENNOSIDES 8.8 MG/5 ML BULK BOTTLE GT SCH (22:48)
[2018-03-19] MEDS: INSULIN (LEVEMIR) 100 UNITS/ML UNITS SQ SCH (22:53)
[2018-03-20] MEDS: INSULIN SLIDING SCALE (NOVOLOG) 1 VIAL SQ SCH ×4 (06:29→23:08)
[2018-03-20] MEDS: LEVOTHYROXINE NA 25 MCG TABLET (FP) PEG SCH (06:30)
[2018-03-20] MEDS: AMINO ACIDS/PROTEIN HYDROLYS 30 ML LIQUID.PKT PO SCH (08:02)
[2018-03-20] MEDS ORDERED: PT OWN MED DRAWER 7, Y5N ONE (08:58)
[2018-03-20] MEDS: METOPROLOL TARTRATE 25 MG TABLET (FP) PO SCH ×2 (09:02→22:52)
[2018-03-20] MEDS: SERTRALINE HCL 25 MG TABLET (FP) PO SCH (09:02)
[2018-03-20] MEDS: FINASTERIDE 5 MG TABLET (FP) PO SCH (09:02)
[2018-03-20] MEDS: OXYBUTYNIN CHLORIDE 5 MG TABLET NGT SCH ×2 (09:02→22:53)
[2018-03-20] MEDS: FERROUS SO4 300 MG/5 ML ORAL SOLN UNIT DOSE CUPS GT SCH (09:02)
[2018-03-20] MEDS: PANTOPRAZOLE SOD 40 MG SUSPENSION PACKET NGT SCH (09:02)
[2018-03-20] MEDS: NYSTATIN POWDER 100,000 UNITS/GM - 15 GM TOPICAL POWDER TP SCH ×2 (09:03→22:54)
[2018-03-20] MEDS: COLLAGENASE CLOSTRIDIUM HIST. 30 GRAMS TUBE TP SCH (09:03)
[2018-03-20] MEDS: ARTIFICIAL TEARS (POLYVINYL ALCOHOL 1.4%) OPTH DROPS OU SCH ×2 (09:04→22:53)
[2018-03-20] MEDS: NON-FORMULARY MED GT SCH (09:52)
--- NOTE | 2018-03-20 11:54 | PN ---
Progress Note (short form) - Note Progress Note: PULMONARY Vented on volume assist control. Low grade temps continue Gen: vented Heart: RRR Lung: decreased breath sounds at the bases Abd: soft, nontender Ext: no edema labs/meds/notes/images/micro reviewed A/P GI Bleed/Gastric Dieulafoy Lesion s/p EGD/epi/cautery Acute Blood Loss Anemia Chronic Respiratory Failure Pneumonia h/o Traumatic Brain Injury Functional Quadriplegia Acute on Chronic Renal Failure Atrial Fibrillation DM Dementia - monitor H/H - protonix - antibiotics per ID - rate control - holding anticoagulation - continue volume assist control - poor candidate for weaning due to poor mental status - enteral feeds as tolerated - DVT/GI prophylaxis Tony DE LA O MD
--- NOTE | 2018-03-20 13:39 | PN ---
Progress Note, Physician History of Present Illness: mechanically ventilated no fevers temp 99 - Current Medication List Current Medications: Active Medications Acetaminophen (Tylenol -) 650 mg PO Q4H PRN PRN Reason: FEVER Last Admin: 03/15/18 17:24 Dose: 650 mg Amino Acids (Prosource No Carb Liquid Pkt) 30 ml PO DAILY@0800 [facility] Last Admin: 03/20/18 08:02 Dose: 30 ml Artificial Tears (Artificial Tears) 2 drop OU BID [facility] Last Admin: 03/20/18 09:04 Dose: 2 drop Atorvastatin Calcium (Lipitor -) 10 mg GT HS [facility] Last Admin: 03/19/18 22:47 Dose: 10 mg Collagenase (Santyl -) 1 applic TP DAILY [facility] Last Admin: 03/20/18 09:03 Dose: 1 applic Diltiazem HCl (Cardizem Injection -) 10 mg IVPUSH Q6H PRN PRN Reason: TACHYCARDIA Last Admin: 03/02/18 09:45 Dose: 10 mg Docusate Sodium (Colace Liquid -) 100 mg PO DAILY PRN PRN Reason: CONSTIPATION Ferrous Sulfate (Feosol) 300 mg GT DAILY [facility] Last Admin: 03/20/18 09:02 Dose: 300 mg Finasteride (Proscar -) 5 mg PO DAILY [facility] Last Admin: 03/20/18 09:02 Dose: 5 mg Insulin Aspart (Novolog Vial Sliding Scale -) 1 vial SQ [facility]; Protocol Last Admin: 03/20/18 11:53 Dose: Not Given Insulin Detemir (Levemir Vial) 5 units SQ [facility] Last Admin: 03/19/18 22:53 Dose: 5 units Levothyroxine Sodium (Synthroid -) 37.5 mcg PEG DAILY@0700 [facility] Last Admin: 03/20/18 06:30 Dose: 37.5 mcg Metoprolol Tartrate (Lopressor -) 25 mg PO BID [facility] Last Admin: 03/20/18 09:02 Dose: 25 mg Non-Formulary Medication (Non-Formulary Med) 1 each GT DAILY [facility] Last Admin: 03/20/18 09:52 Dose: 1 each Nystatin (Nystop Powder -) 1 applic TP BID [facility] Last Admin: 03/20/18 09:03 Dose: 1 applic Oxybutynin Chloride (Ditropan -) 5 mg NGT BID [facility] Last Admin: 03/20/18 09:02 Dose: 5 mg Pantoprazole Sodium (Protonix Packets For Oral Suspension -) 40 mg NGT DAILY [facility] Last Admin: 03/20/18 09:02 Dose: 40 mg Senna (Senna Oral Solution -) 8.8 mg GT HS [facility] Last Admin: 03/19/18 22:48 Dose: 8.8 mg Sertraline HCl (Zoloft -) 50 mg PO DAILY [facility] Last Admin: 03/20/18 09:02 Dose: 50 mg - Objective Vital Signs: Vital Signs Temperature 98.3 F 03/20/18 08:59 Pulse Rate 62 03/20/18 08:59 Respiratory Rate 16 03/20/18 11:15 Blood Pressure 129/62 03/20/18 08:59 O2 Sat by Pulse Oximetry (%) 96 03/20/18 11:15 Constitutional: Yes: No Distress Cardiovascular: Yes: Pulse Irregular Respiratory: Yes: Regular Gastrointestinal: Yes: Normal Bowel Sounds, Soft, Other (peg) Musculoskeletal: Yes: WNL Extremities: Yes: WNL Neurological: Yes: Alert, Oriented Psychiatric: Yes: Alert, Oriented Labs: CBC, BMP 03/15/18 05:55 03/16/18 06:15 INR, PTT INR 1.13 (0.82-1.09) 02/16/18 22:40 Assessment/Plan Problem List - Problems (1) Anemia Code(s): D64.9 - ANEMIA, UNSPECIFIED (2) Chronic kidney disease, stage 3 Code(s): N18.3 - CHRONIC KIDNEY DISEASE, STAGE 3 (MODERATE) (3) Chronic respiratory failure Code(s): J96.10 - CHRONIC RESPIRATORY FAILURE, UNSP W HYPOXIA OR HYPERCAPNIA Qualifiers: Respiratory failure complication: unspecified whether with hypoxia or hypercapnia Qualified Code(s): J96.10 - Chronic respiratory failure, unspecified whether with hypoxia or hypercapnia (4) PAF (paroxysmal atrial fibrillation) Code(s): I48.0 - PAROXYSMAL ATRIAL FIBRILLATION (5) Renal failure Code(s): N19 - UNSPECIFIED KIDNEY FAILURE Qualifiers: Renal failure chronicity: unspecified chronicity Qualified Code(s): N19 - Unspecified kidney failure (6) Diabetes Code(s): E11.9 - TYPE 2 DIABETES MELLITUS WITHOUT COMPLICATIONS (7) TBI (traumatic brain injury) Code(s): S06.9X9A - UNSP INTRACRANIAL INJURY W LOC OF UNSP DURATION, INIT (8) [id number] kidney injury Code(s): N17.9 - ACUTE KIDNEY FAILURE, UNSPECIFIED; N18.9 - CHRONIC KIDNEY DISEASE, UNSPECIFIED (9) [id number]-ue-[id number] renal failure Code(s): N17.9 - ACUTE KIDNEY FAILURE, UNSPECIFIED; N18.9 - CHRONIC KIDNEY DISEASE, UNSPECIFIED (10) Hypotension Code(s): I95.9 - HYPOTENSION, UNSPECIFIED (11) Hypotension Code(s): I95.9 - HYPOTENSION, UNSPECIFIED 12 gi bleed 13 difuleoy lesion 14 rash I plan continue to monitor off of abx nutrition rest as per primary care as per pul suctioning if needed final plan awaited watch liver enzymes monitor for fevers
--- NOTE | 2018-03-20 14:37 | PN ---
Progress Note (short form) - Note Progress Note: resting comfortable Current Medications Generic Name Dose Route Start Last Admin Trade Name Freq PRN Reason Stop Dose Admin Acetaminophen 650 mg 03/01/18 15:42 03/15/18 17:24 Tylenol - PO 650 mg Q4H PRN Administration FEVER Amino Acids 30 ml 03/16/18 08:00 03/20/18 08:02 Prosource No Carb Liquid Pkt PO 30 ml DAILY@0800 [facility] Administration Artificial Tears 2 drop 03/01/18 22:00 03/20/18 09:04 Artificial Tears OU 2 drop BID [facility] Administration Atorvastatin Calcium 10 mg 03/01/18 22:00 03/19/18 22:47 Lipitor - GT 10 mg HS [facility] Administration Collagenase 1 applic 03/02/18 10:00 03/20/18 09:03 Santyl - TP 1 applic DAILY [facility] Administration Diltiazem HCl 10 mg 03/01/18 15:42 03/02/18 09:45 Cardizem Injection - IVPUSH 10 mg Q6H PRN Administration TACHYCARDIA Docusate Sodium 100 mg 03/01/18 15:42 Colace Liquid - PO DAILY PRN CONSTIPATION Ferrous Sulfate 300 mg 03/02/18 10:00 03/20/18 09:02 Feosol GT 300 mg DAILY [facility] Administration Finasteride 5 mg 03/18/18 12:15 03/20/18 09:02 Proscar - PO 5 mg DAILY [facility] Administration Insulin Aspart 1 vial 03/01/18 16:30 03/20/18 11:53 Novolog Vial Sliding Scale - SQ Not Given [facility] Protocol Insulin Detemir 5 units 03/15/18 22:00 03/19/18 22:53 Levemir Vial SQ 5 units HS [facility] Administration Levothyroxine Sodium 37.5 mcg 03/02/18 07:00 03/20/18 06:30 Synthroid - PEG 37.5 mcg DAILY@0700 [facility] Administration Metoprolol Tartrate 25 mg 03/02/18 22:00 03/20/18 09:02 Lopressor - PO 25 mg BID [facility] Administration Non-Formulary Medication 1 each 03/02/18 10:00 03/20/18 09:52 Non-Formulary Med GT 1 each DAILY [facility] Administration Nystatin 1 applic 03/01/18 22:00 03/20/18 09:03 Nystop Powder - TP 1 applic BID [facility] Administration Oxybutynin Chloride 5 mg 03/01/18 22:00 03/20/18 09:02 Ditropan - NGT 5 mg BID [facility] Administration Pantoprazole Sodium 40 mg 03/02/18 10:00 03/20/18 09:02 Protonix Packets For Oral Suspension - NGT 40 mg DAILY [facility] Administration Senna 8.8 mg 03/02/18 22:00 03/19/18 22:48 Senna Oral Solution - GT 8.8 mg HS [facility] Administration Sertraline HCl 50 mg 03/02/18 21:25 03/20/18 09:02 Zoloft - PO 50 mg DAILY [facility] Administration Last Vital Signs Temp Pulse Resp BP Pulse Ox 98.3 F 62 16 129/62 96 03/20/18 08:59 03/20/18 08:59 03/20/18 11:15 03/20/18 08:59 03/20/18 11:15 General NAD, spontaneous eye opening Abdomen soft less distended. 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 Admitted on 02/17/18 from [facility] chronic respiratory failure and severe anemia with a hg of 5.5 and hypotension. 1. Acute on chronic respiratory failure- due to aspiration PNA. now improved. has returned to baseline vent settings. not weanable due to poor mental status. off steroids. pulmonary on board 2. Aspiration PNA-completed extended course of zosyn. off all abx now. ID on board 3. macular rash-possible drug reaction vs heat rash. now resolved. 4. acute transaminitis- possible cholestasis? similar episode on 02/01/18. trending down. no workup necessary at this time 7. Multifactorial anemia with Upper GI bleed- s/p EGD with Diluefoy lesion s/p heat probe and epi. s/p 11 units PRBC this hospital stay. Hgb stable. no indication for transfusion. hematology on board. on iron supplementation 8. Acute on CKD- hypoperfusion. stable. likely new baseline. elevated BUN likely due to GI bleed. nephro on board 9. new onset afib- rate controlled. cont metoprolol. not a candidate for anticoagulation iwth recent GI bleed. echo reviewed. cardio on board 10. Hypernatremia- resolved. cont water flushes. 11. Thrombophilia-stable. off medications 12. DM-improved. cont levemir. cont iss. titrate as needed to optimize control 13. TBI- s/p trach and PEG. 14. 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 15. legally blind and deaf 16. hypothyroid- on Lt4 17. urinary incontinence- with chronic indwelling christopher. cont oxybutin/flomax 18. depression- on zoloft 19. DVT ppx- SCD. would hold pharmacologic anticoagulation with recent GI bleed 20. medically optimized at this time. Authorization for [facility] obtained. now family does not want [facility] and wants SNF placement. instructed to place discharge order yesterday. awaiting to hear from CM about status. Visit type - Emergency Visit Emergency Visit: Yes ED Registration Date: 02/17/18 Care time: The patient presented to the Emergency Department on the above date and was hospitalized for further evaluation of their emergent condition. - New Patient This patient is new to me today: Yes Date on this admission: 03/20/18 - Critical Care Critical Care patient: No - Discharge Referral Referred to [facility] Med P.C.: No
[2018-03-20] MEDS: ATORVASTATIN CA 10 MG TABLET (FP) GT SCH (22:53)
[2018-03-20] MEDS: SENNOSIDES 8.8 MG/5 ML BULK BOTTLE GT SCH (22:54)
[2018-03-20] MEDS: INSULIN (LEVEMIR) 100 UNITS/ML UNITS SQ SCH (23:07)
[2018-03-21] MEDS: INSULIN SLIDING SCALE (NOVOLOG) 1 VIAL SQ SCH ×4 (05:59→22:18)
[2018-03-21] MEDS: LEVOTHYROXINE NA 25 MCG TABLET (FP) PEG SCH (06:00)
[2018-03-21] MEDS: AMINO ACIDS/PROTEIN HYDROLYS 30 ML LIQUID.PKT PO SCH (09:04)
--- NOTE | 2018-03-21 09:11 | PN ---
Progress Note (short form) - Note Progress Note: PULMONARY Vented on volume assist control. 14/450/5/28% Low grade temps continue Gen: vented Heart: RRR Lung: decreased breath sounds at the bases Abd: soft, nontender Ext: no edema labs/meds/notes/images/micro reviewed A/P GI Bleed/Gastric Dieulafoy Lesion s/p EGD/epi/cautery Acute Blood Loss Anemia Chronic Respiratory Failure Pneumonia h/o Traumatic Brain Injury Functional Quadriplegia Acute on Chronic Renal Failure Atrial Fibrillation DM Dementia - monitor H/H - protonix - antibiotics per ID - rate control - holding anticoagulation - continue volume assist control - poor candidate for weaning due to poor mental status - enteral feeds as tolerated - DVT/GI prophylaxis Tony DE LA O MD
[2018-03-21] MEDS: FINASTERIDE 5 MG TABLET (FP) PO SCH (10:05)
[2018-03-21] MEDS: METOPROLOL TARTRATE 25 MG TABLET (FP) PO SCH ×2 (10:05→22:17)
[2018-03-21] MEDS: OXYBUTYNIN CHLORIDE 5 MG TABLET NGT SCH ×2 (10:05→22:17)
[2018-03-21] MEDS: PANTOPRAZOLE SOD 40 MG SUSPENSION PACKET NGT SCH (10:05)
[2018-03-21] MEDS: FERROUS SO4 300 MG/5 ML ORAL SOLN UNIT DOSE CUPS GT SCH (10:05)
[2018-03-21] MEDS: NYSTATIN POWDER 100,000 UNITS/GM - 15 GM TOPICAL POWDER TP SCH ×2 (10:06→22:20)
[2018-03-21] MEDS: SERTRALINE HCL 25 MG TABLET (FP) PO SCH (10:06)
[2018-03-21] MEDS: COLLAGENASE CLOSTRIDIUM HIST. 30 GRAMS TUBE TP SCH (10:08)
[2018-03-21] MEDS: ARTIFICIAL TEARS (POLYVINYL ALCOHOL 1.4%) OPTH DROPS OU SCH ×2 (10:08→22:20)
[2018-03-21] MEDS: NON-FORMULARY MED GT SCH (10:10)
--- NOTE | 2018-03-21 12:45 | PN ---
Teaching Attending Note Name of Resident: Erica See ATTENDING PHYSICIAN STATEMENT I saw and evaluated the patient. I reviewed the resident's note and discussed the case with the resident. I agree with the resident's findings and plan as documented. SUBJECTIVE:resting comfortable OBJECTIVE: Last Vital Signs Temp Pulse Resp BP Pulse Ox 98.6 F 65 17 114/65 98 03/21/18 12:00 03/21/18 12:00 03/21/18 12:00 03/21/18 08:20 03/21/18 09:00 General NAD, spontaneous eye opening Abdomen soft less distended. 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 Admitted on 02/17/18 from [facility] chronic respiratory failure and severe anemia with a hg of 5.5 and hypotension. 1. Acute on chronic respiratory failure- due to aspiration PNA. now improved. has returned to baseline vent settings. not weanable due to poor mental status. off steroids. pulmonary on board 2. Aspiration PNA-Tm 100.5 no increase in sputum production or vent requirements. no indication for abx a tthis time. will consider sepsis eval if Tm >101. ID on board 3. macular rash-possible drug reaction vs heat rash. now resolved. 4. acute transaminitis- possible cholestasis? similar episode on 02/01/18. trending down. no workup necessary at this time 7. Multifactorial anemia with Upper GI bleed- s/p EGD with Diluefoy lesion s/p heat probe and epi. s/p 11 units PRBC this hospital stay. Hgb stable. no indication for transfusion. hematology on board. on iron supplementation 8. Acute on CKD- hypoperfusion. stable. likely new baseline. elevated BUN likely due to GI bleed. nephro on board 9. new onset afib- rate controlled. cont metoprolol. not a candidate for anticoagulation iwth recent GI bleed. echo reviewed. cardio on board 10. Hypernatremia- resolved. cont water flushes. 11. Thrombophilia-stable. off medications 12. DM-improved. cont levemir. cont iss. titrate as needed to optimize control 13. TBI- s/p trach and PEG. 14. 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 15. legally blind and deaf 16. hypothyroid- on Lt4 17. urinary incontinence- with chronic indwelling christopher. cont oxybutin/flomax 18. depression- on zoloft 19. DVT ppx- SCD. would hold pharmacologic anticoagulation with recent GI bleed 20. medically optimized at this time. Authorization for [facility] obtained. now family does not want [facility] and wants SNF placement. instructed to place discharge order. awaiting to hear from CM about status.
--- NOTE | 2018-03-21 13:52 | PN ---
Physical Exam: SUBJECTIVE: Patient seen and examined resting comfortably. As per nursing, patients temperature reached 100.5, Cold packs were used to bring temp down. OBJECTIVE: Vital Signs Period Temp Pulse Resp BP Sys/Wills Pulse Ox Last 24 Hr 98.6 F-100.5 F 57-106 14-25 112-128/51-78 98-98 GENERAL: Resting comfortably, spontaneous eye opening LUNGS: Mechanical Breath sounds anteriorly, decreased effort HEART: Regular rate and rhythm, S1, S2 without murmur, rub or gallop ABDOMEN: Soft, normoactive bowel sounds, distended, PEG tube present without bleeding, drainage or erythema : Christopher catheter present draining Clear, yellow urine NEUROLOGICAL: Upper extremities contracted b/l Laboratory Results - last 24 hr 03/20/18 03/20/18 03/21/18 17:42 23:04 05:58 POC Glucometer 135 194 141 03/21/18 12:39 POC Glucometer 122 Active Medications Acetaminophen (Tylenol -) 650 mg PO Q4H PRN PRN Reason: FEVER Last Admin: 03/15/18 17:24 Dose: 650 mg Amino Acids (Prosource No Carb Liquid Pkt) 30 ml PO DAILY@0800 [facility] Last Admin: 03/21/18 09:04 Dose: 30 ml Artificial Tears (Artificial Tears) 2 drop OU BID [facility] Last Admin: 03/21/18 10:08 Dose: 2 drop Atorvastatin Calcium (Lipitor -) 10 mg GT HS [facility] Last Admin: 03/20/18 22:53 Dose: 10 mg Collagenase (Santyl -) 1 applic TP DAILY [facility] Last Admin: 03/21/18 10:08 Dose: 1 applic Diltiazem HCl (Cardizem Injection -) 10 mg IVPUSH Q6H PRN PRN Reason: TACHYCARDIA Last Admin: 03/02/18 09:45 Dose: 10 mg Docusate Sodium (Colace Liquid -) 100 mg PO DAILY PRN PRN Reason: CONSTIPATION Ferrous Sulfate (Feosol) 300 mg GT DAILY [facility] Last Admin: 03/21/18 10:05 Dose: 300 mg Finasteride (Proscar -) 5 mg PO DAILY [facility] Last Admin: 03/21/18 10:05 Dose: 5 mg Insulin Aspart (Novolog Vial Sliding Scale -) 1 vial SQ [facility]; Protocol Last Admin: 03/21/18 13:29 Dose: Not Given Insulin Detemir (Levemir Vial) 5 units SQ [facility] Last Admin: 03/20/18 23:07 Dose: 5 units Levothyroxine Sodium (Synthroid -) 37.5 mcg PEG DAILY@0700 [facility] Last Admin: 03/21/18 06:00 Dose: 37.5 mcg Metoprolol Tartrate (Lopressor -) 25 mg PO BID [facility] Last Admin: 03/21/18 10:05 Dose: 25 mg Non-Formulary Medication (Non-Formulary Med) 1 each GT DAILY [facility] Last Admin: 03/21/18 10:10 Dose: 1 each Nystatin (Nystop Powder -) 1 applic TP BID [facility] Last Admin: 03/21/18 10:06 Dose: 1 applic Oxybutynin Chloride (Ditropan -) 5 mg NGT BID [facility] Last Admin: 03/21/18 10:05 Dose: 5 mg Pantoprazole Sodium (Protonix Packets For Oral Suspension -) 40 mg NGT DAILY [facility] Last Admin: 03/21/18 10:05 Dose: 40 mg Senna (Senna Oral Solution -) 8.8 mg GT [facility] Last Admin: 03/20/18 22:54 Dose: Not Given Sertraline HCl (Zoloft -) 50 mg PO DAILY [facility] Last Admin: 03/21/18 10:06 Dose: 50 mg ASSESSMENT/PLAN: 87 year old male with a PMHx significant for Diastolic heart failure, NIDDM, CKD , and 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 Admitted on 02/17/18 from [facility] for chronic respiratory failure and severe anemia with a hg of 5.5 and hypotension. 1. Multifactorial anemia with UGIB - s/p EGD with Diluefoy lesion - s/p heat probe and epi - s/p 10 units PRBC this hospital stay - Hgb currently stable, 8.5 this morning, No signs of Active bleeding - 1 Unit Packed RBC Transfused on 03/11 - GI (Dr. Diaz) Consulted, appreciate recommendations, - Glucerna Tube feeds being tolerated well - Experiences recurrent hypoglycemia in the morning, discontinued levemir currently, will continue to monitor - Abdominal XRay: : Functional PEG tube with tip in stomach. No sign of obstruction or leak - Family concerned for abdominal bloating, Serial abdomen exams, continue to monitor - Hematology consulted, Appreciate recommendations - Continue Ferrous Sulfate 300 mg GT DAILY [facility] 2. Acute on chronic respiratory failure - Due to aspiration PNA that has now improved, patient has returned to baseline vent settings - Not weanable due to poor mental status - Pulmonary consulted, Appreciate recommendations 3. Aspiration PNA - Completed course of Zosyn, Not on any other ABx - ID (Dr. Garza) consulted, Appreciate recommendations 4. Acute Transaminitis - AST/ALT Trending down - Has hx of similar episode on 02/01/18 that self-resolved - Will continue to monitor 5. Acute on CKD - Hypoperfusion - BUN remains elevated, likely due to GI bleed - Cr remains elevated - No longer on steroids - Will continue to monitor - Nephrology consulted, Appreciate recommendations 6. New onset Afib - rate controlled, Continue Metoprolol Tartrate 25 mg PO BID LILIA - Not a candidate for anticoagulation due to recent GI bleed - Cardiology consulted, Appreciate recommendations 7. Hypernatremia - resolved - will continue water flushes and monitor 8. Thrombophilia - stable off medications 9. DM - Improved - Continue Insulin Aspart SQ ACHS LILIA - Continue Insulin Detemir SQ HS [facility] 10. 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 Hypothyroid - Continue Synthroid 37.5 mcg PEG DAILY @ 0700 [facility] 12. Urinary incontinence - Chronic indwelling christopher. cont oxybutin/flomax - Flomax changed to Proscar - Continue Oxybutynin Chloride 5 mg BID [facility] 13. Depression - Continue on Sertraline HCl 50 mg PO DAILY [facility] 14. DVT ppx - SCD - Not a candidate for anticoagulation due to recent GI Bleed Dispo: Waiting for insurance to approve Krysta/SNF Visit type - Emergency Visit Emergency Visit: No - New Patient This patient is new to me today: No - Critical Care Critical Care patient: No
[2018-03-21] MEDS: ACETAMINOPHEN 325 MG TABLET (FP) PO PRN (16:52)
[2018-03-21 16:54] LABS: BASO % 0.1 % (0-2.0); EOS % 0.1 % (0-4.5); HEMATOCRIT 22.5 % (35.4-49); HEMOGLOBIN 7.2 GM/dL (11.7-16.9); LYMPH % 5.2 % (8-40); MCH 28.4 pg (25.7-33.7); MCHC 31.9 g/dl (32.0-35.9); MEAN CELL VOLUME 88.9 fl (80-96); MEAN PLT VOLUME 10.2 fl (7.5-11.1); MONO % 5.4 % (3.8-10.2); NEUT % 89.2 % (42.8-82.8); PLATELET COUNT 166 K/MM3 (134-434); RBC 2.53 M/mm3 (4.00-5.60); WHITE BLOOD COUNT 11.4 K/mm3 (4.0-10.0)
[2018-03-21 17:09] LABS: ALBUMIN 1.7 g/dl (3.4-5.0); ALK PHOS 186 U/L (45-117); ANION GAP 8 (8-16); BILIRUBIN,TOTAL 0.3 mg/dL (0.2-1.0); BLOOD UREA NITROGEN 98 mg/dL (7-18); CALCIUM 7.7 mg/dL (8.5-10.1); CHLORIDE 106 mmol/L (98-107); CO2 26 mmol/L (21-32); CREATININE 1.8 mg/dL (0.7-1.3); GLUCOSE,RANDOM 149 mg/dL (74-106); POTASSIUM 3.9 mmol/L (3.5-5.1); SGOT/AST 59 U/L (15-37); SGPT/ALT 78 U/L (12-78); SODIUM 140 mmol/L (136-145); TOT PROT 5.4 g/dl (6.4-8.2)
[2018-03-21 18:34] LABS: URINE APPEARANCE CLOUDY; URINE BILIRUBIN NEGATIVE (<2.0 mg/dL); URINE COLOR YELLOW; URINE GLUCOSE (UA) NEGATIVE (NEGATIVE); URINE KETONE NEGATIVE (NEGATIVE); URINE NITRITE NEGATIVE (NEGATIVE); URINE UROBILINOGEN NEGATIVE mg/dL (0.2-1.0)
[2018-03-21 18:42] LABS: URINE LEUK ESTERASE 3+ (NEGATIVE); URINE PROTEIN 2+ (NEGATIVE)
[2018-03-21] MEDS ORDERED: DEXTROSE 5%-WATER 200 ML IVPB ONE (21:15)
[2018-03-21] MEDS: CEFTRIAXONE 2 GM in DEXTROSE 5%-WATER 100 ML IVPB SCH (21:42)
[2018-03-21] MEDS: INSULIN (LEVEMIR) 100 UNITS/ML UNITS SQ SCH (22:18)
[2018-03-21] MEDS: ATORVASTATIN CA 10 MG TABLET (FP) GT SCH (22:18)
[2018-03-21] MEDS: SENNOSIDES 8.8 MG/5 ML BULK BOTTLE GT SCH (22:19)
[2018-03-22 00:21] LABS: URINE APPEARANCE TURBID; URINE BILIRUBIN NEGATIVE (<2.0 mg/dL); URINE COLOR AMBER; URINE GLUCOSE (UA) NEGATIVE (NEGATIVE); URINE KETONE NEGATIVE (NEGATIVE); URINE NITRITE NEGATIVE (NEGATIVE)
[2018-03-22 00:27] LABS: URINE LEUK ESTERASE 3+ (NEGATIVE); URINE PROTEIN 2+ (NEGATIVE)
[2018-03-22 00:35] LABS: URINE BACTERIA MODERATE /hpf (NONE SEEN)
[2018-03-22 01:29] LABS: BASO % 0.2 % (0-2.0); EOS % 0.5 % (0-4.5); HEMATOCRIT 24.8 % (35.4-49); LYMPH % 6.9 % (8-40); MCH 28.9 pg (25.7-33.7); MCHC 32.3 g/dl (32.0-35.9); MEAN CELL VOLUME 89.5 fl (80-96); MEAN PLT VOLUME 10.2 fl (7.5-11.1); MONO % 6.3 % (3.8-10.2); NEUT % 86.1 % (42.8-82.8); PLATELET COUNT 158 K/MM3 (134-434); RBC 2.77 M/mm3 (4.00-5.60); RDW 17.4 % (11.9-15.9); WHITE BLOOD COUNT 10.4 K/mm3 (4.0-10.0)
[2018-03-22] MEDS: LEVOTHYROXINE NA 25 MCG TABLET (FP) PEG SCH (06:07)
[2018-03-22] MEDS: INSULIN SLIDING SCALE (NOVOLOG) 1 VIAL SQ SCH ×4 (06:07→23:05)
[2018-03-22] MEDS ORDERED: PT OWN MED DRAWER 7, Y5N ONE ×2 (09:15→22:33)
[2018-03-22] MEDS ORDERED: DEXTROSE 5%-WATER 100 ML IVPB ONE (09:16)
[2018-03-22] MEDS: AMINO ACIDS/PROTEIN HYDROLYS 30 ML LIQUID.PKT PO SCH (09:20)
[2018-03-22] MEDS: CEFTRIAXONE 2 GM in DEXTROSE 5%-WATER 100 ML IVPB SCH (09:20)
[2018-03-22] MEDS: PANTOPRAZOLE SOD 40 MG SUSPENSION PACKET NGT SCH (09:21)
[2018-03-22] MEDS: ARTIFICIAL TEARS (POLYVINYL ALCOHOL 1.4%) OPTH DROPS OU SCH ×2 (09:21→23:23)
[2018-03-22] MEDS: SERTRALINE HCL 25 MG TABLET (FP) PO SCH (09:21)
[2018-03-22] MEDS: FERROUS SO4 300 MG/5 ML ORAL SOLN UNIT DOSE CUPS GT SCH (09:21)
[2018-03-22] MEDS: METOPROLOL TARTRATE 25 MG TABLET (FP) PO SCH ×2 (09:21→23:09)
[2018-03-22] MEDS: OXYBUTYNIN CHLORIDE 5 MG TABLET NGT SCH ×2 (09:21→23:09)
[2018-03-22] MEDS: FINASTERIDE 5 MG TABLET (FP) PO SCH (09:21)
[2018-03-22] MEDS: NON-FORMULARY MED GT SCH (09:22)
[2018-03-22] MEDS: NYSTATIN POWDER 100,000 UNITS/GM - 15 GM TOPICAL POWDER TP SCH ×2 (09:22→23:01)
[2018-03-22] MEDS: COLLAGENASE CLOSTRIDIUM HIST. 30 GRAMS TUBE TP SCH (09:23)
--- NOTE | 2018-03-22 12:13 | PN ---
Progress Note (short form) - Note Progress Note: PULMONARY Vented on volume assist control. Febrile yesterday. Vital Signs Period Temp Pulse Resp BP Sys/Wills Pulse Ox Last 24 Hr 98.1 F-103.4 F 63-72 14-18 103-121/44-73 98-100 Gen: vented Heart: RRR Lung: decreased breath sounds at the bases Abd: soft, nontender Ext: no edema CBC, BMP 03/22/18 00:55 03/21/18 16:25 Active Medications Acetaminophen (Tylenol -) 650 mg PO Q4H PRN PRN Reason: FEVER Last Admin: 03/21/18 16:52 Dose: 650 mg Amino Acids (Prosource No Carb Liquid Pkt) 30 ml PO DAILY@0800 [facility] Last Admin: 03/22/18 09:20 Dose: 30 ml Artificial Tears (Artificial Tears) 2 drop OU BID [facility] Last Admin: 03/22/18 09:21 Dose: 2 drop Atorvastatin Calcium (Lipitor -) 10 mg GT HS [facility] Last Admin: 03/21/18 22:18 Dose: 10 mg Collagenase (Santyl -) 1 applic TP DAILY [facility] Last Admin: 03/22/18 09:23 Dose: 1 applic Diltiazem HCl (Cardizem Injection -) 10 mg IVPUSH Q6H PRN PRN Reason: TACHYCARDIA Last Admin: 03/02/18 09:45 Dose: 10 mg Docusate Sodium (Colace Liquid -) 100 mg PO DAILY PRN PRN Reason: CONSTIPATION Ferrous Sulfate (Feosol) 300 mg GT DAILY [facility] Last Admin: 03/22/18 09:21 Dose: 300 mg Finasteride (Proscar -) 5 mg PO DAILY [facility] Last Admin: 03/22/18 09:21 Dose: 5 mg Ceftriaxone Sodium 2 gm/ (Dextrose) 100 mls @ 200 mls/hr IVPB DAILY [facility]; Protocol Last Admin: 03/22/18 09:20 Dose: 200 mls/hr Insulin Aspart (Novolog Vial Sliding Scale -) 1 vial SQ ACHS [facility]; Protocol Last Admin: 03/22/18 06:07 Dose: Not Given Insulin Detemir (Levemir Vial) 5 units SQ HS [facility] Last Admin: 03/21/18 22:18 Dose: 5 units Levothyroxine Sodium (Synthroid -) 37.5 mcg PEG DAILY@0700 [facility] Last Admin: 03/22/18 06:07 Dose: 37.5 mcg Metoprolol Tartrate (Lopressor -) 25 mg PO BID [facility] Last Admin: 03/22/18 09:21 Dose: 25 mg Non-Formulary Medication (Non-Formulary Med) 1 each GT DAILY [facility] Last Admin: 03/22/18 09:22 Dose: 1 each Nystatin (Nystop Powder -) 1 applic TP BID [facility] Last Admin: 03/22/18 09:22 Dose: 1 applic Oxybutynin Chloride (Ditropan -) 5 mg NGT BID [facility] Last Admin: 03/22/18 09:21 Dose: 5 mg Pantoprazole Sodium (Protonix Packets For Oral Suspension -) 40 mg NGT DAILY [facility] Last Admin: 03/22/18 09:21 Dose: 40 mg Senna (Senna Oral Solution -) 8.8 mg GT HS [facility] Last Admin: 03/21/18 22:19 Dose: Not Given Sertraline HCl (Zoloft -) 50 mg PO DAILY [facility] Last Admin: 03/22/18 09:21 Dose: 50 mg A/P GI Bleed/Gastric Dieulafoy Lesion s/p EGD/epi/cautery Acute Blood Loss Anemia Chronic Respiratory Failure Pneumonia h/o Traumatic Brain Injury Functional Quadriplegia Acute on Chronic Renal Failure Atrial Fibrillation DM Dementia - continue antibiotics - f/u pending cultures - monitor H/H - protonix - rate control - holding anticoagulation - continue volume assist control - poor candidate for weaning due to poor mental status - enteral feeds as tolerated - DVT/GI prophylaxis
--- NOTE | 2018-03-22 12:25 | PN ---
Progress Note, Physician History of Present Illness: mechanically ventilated low grade fever otherwise stable - Current Medication List Current Medications: Active Medications Acetaminophen (Tylenol -) 650 mg PO Q4H PRN PRN Reason: FEVER Last Admin: 03/21/18 16:52 Dose: 650 mg Amino Acids (Prosource No Carb Liquid Pkt) 30 ml PO DAILY@0800 [facility] Last Admin: 03/22/18 09:20 Dose: 30 ml Artificial Tears (Artificial Tears) 2 drop OU BID [facility] Last Admin: 03/22/18 09:21 Dose: 2 drop Atorvastatin Calcium (Lipitor -) 10 mg GT HS [facility] Last Admin: 03/21/18 22:18 Dose: 10 mg Collagenase (Santyl -) 1 applic TP DAILY [facility] Last Admin: 03/22/18 09:23 Dose: 1 applic Diltiazem HCl (Cardizem Injection -) 10 mg IVPUSH Q6H PRN PRN Reason: TACHYCARDIA Last Admin: 03/02/18 09:45 Dose: 10 mg Docusate Sodium (Colace Liquid -) 100 mg PO DAILY PRN PRN Reason: CONSTIPATION Ferrous Sulfate (Feosol) 300 mg GT DAILY [facility] Last Admin: 03/22/18 09:21 Dose: 300 mg Finasteride (Proscar -) 5 mg PO DAILY [facility] Last Admin: 03/22/18 09:21 Dose: 5 mg Ceftriaxone Sodium 2 gm/ (Dextrose) 100 mls @ 200 mls/hr IVPB DAILY [facility]; Protocol Last Admin: 03/22/18 09:20 Dose: 200 mls/hr Insulin Aspart (Novolog Vial Sliding Scale -) 1 vial SQ [facility]; Protocol Last Admin: 03/22/18 06:07 Dose: Not Given Insulin Detemir (Levemir Vial) 5 units SQ [facility] Last Admin: 03/21/18 22:18 Dose: 5 units Levothyroxine Sodium (Synthroid -) 37.5 mcg PEG DAILY@0700 [facility] Last Admin: 03/22/18 06:07 Dose: 37.5 mcg Metoprolol Tartrate (Lopressor -) 25 mg PO BID [facility] Last Admin: 03/22/18 09:21 Dose: 25 mg Non-Formulary Medication (Non-Formulary Med) 1 each GT DAILY [facility] Last Admin: 03/22/18 09:22 Dose: 1 each Nystatin (Nystop Powder -) 1 applic TP BID [facility] Last Admin: 03/22/18 09:22 Dose: 1 applic Oxybutynin Chloride (Ditropan -) 5 mg NGT BID [facility] Last Admin: 03/22/18 09:21 Dose: 5 mg Pantoprazole Sodium (Protonix Packets For Oral Suspension -) 40 mg NGT DAILY [facility] Last Admin: 03/22/18 09:21 Dose: 40 mg Senna (Senna Oral Solution -) 8.8 mg GT HS [facility] Last Admin: 03/21/18 22:19 Dose: Not Given Sertraline HCl (Zoloft -) 50 mg PO DAILY [facility] Last Admin: 03/22/18 09:21 Dose: 50 mg - Objective Vital Signs: Vital Signs Temperature 98.2 F 03/22/18 08:00 Pulse Rate 72 03/22/18 08:00 Respiratory Rate 18 03/22/18 11:09 Blood Pressure 118/62 03/22/18 08:00 O2 Sat by Pulse Oximetry (%) 98 03/22/18 11:10 Constitutional: Yes: No Distress, Calm Cardiovascular: Yes: Pulse Irregular, Other Gastrointestinal: Yes: Normal Bowel Sounds, Soft, Other (peg) Genitourinary: Yes: Childs Present Musculoskeletal: Yes: WNL Extremities: Yes: Other Neurological: Yes: Other Labs: CBC, BMP 03/22/18 00:55 03/21/18 16:25 INR, PTT INR 1.13 (0.82-1.09) 02/16/18 22:40 Assessment/Plan Problem List - Problems (1) Anemia Code(s): D64.9 - ANEMIA, UNSPECIFIED (2) Chronic kidney disease, stage 3 Code(s): N18.3 - CHRONIC KIDNEY DISEASE, STAGE 3 (MODERATE) (3) Chronic respiratory failure Code(s): J96.10 - CHRONIC RESPIRATORY FAILURE, UNSP W HYPOXIA OR HYPERCAPNIA Qualifiers: Respiratory failure complication: unspecified whether with hypoxia or hypercapnia Qualified Code(s): J96.10 - Chronic respiratory failure, unspecified whether with hypoxia or hypercapnia (4) PAF (paroxysmal atrial fibrillation) Code(s): I48.0 - PAROXYSMAL ATRIAL FIBRILLATION (5) Renal failure Code(s): N19 - UNSPECIFIED KIDNEY FAILURE Qualifiers: Renal failure chronicity: unspecified chronicity Qualified Code(s): N19 - Unspecified kidney failure (6) Diabetes Code(s): E11.9 - TYPE 2 DIABETES MELLITUS WITHOUT COMPLICATIONS (7) TBI (traumatic brain injury) Code(s): S06.9X9A - UNSP INTRACRANIAL INJURY W LOC OF UNSP DURATION, INIT (8) Khauf-zz-kdbfyfc kidney injury Code(s): N17.9 - ACUTE KIDNEY FAILURE, UNSPECIFIED; N18.9 - CHRONIC KIDNEY DISEASE, UNSPECIFIED (9) Ongcs-ef-zqnwsyn renal failure Code(s): N17.9 - ACUTE KIDNEY FAILURE, UNSPECIFIED; N18.9 - CHRONIC KIDNEY DISEASE, UNSPECIFIED (10) Hypotension Code(s): I95.9 - HYPOTENSION, UNSPECIFIED (11) Hypotension Code(s): I95.9 - HYPOTENSION, UNSPECIFIED 12 gi bleed 13 difuleoy lesion 14 rash I plan continue to monitor off of abx nutrition rest as per primary care as per pul suctioning if needed final plan awaited monitor for fevers
--- NOTE | 2018-03-22 12:39 | PN ---
Progress Note, Physician History of Present Illness: patient spiked a fever urine and blood cx were done foleys catheter changed - Current Medication List Current Medications: Active Medications Acetaminophen (Tylenol -) 650 mg PO Q4H PRN PRN Reason: FEVER Last Admin: 03/21/18 16:52 Dose: 650 mg Amino Acids (Prosource No Carb Liquid Pkt) 30 ml PO DAILY@0800 [facility] Last Admin: 03/22/18 09:20 Dose: 30 ml Artificial Tears (Artificial Tears) 2 drop OU BID [facility] Last Admin: 03/22/18 09:21 Dose: 2 drop Atorvastatin Calcium (Lipitor -) 10 mg GT HS [facility] Last Admin: 03/21/18 22:18 Dose: 10 mg Collagenase (Santyl -) 1 applic TP DAILY [facility] Last Admin: 03/22/18 09:23 Dose: 1 applic Diltiazem HCl (Cardizem Injection -) 10 mg IVPUSH Q6H PRN PRN Reason: TACHYCARDIA Last Admin: 03/02/18 09:45 Dose: 10 mg Docusate Sodium (Colace Liquid -) 100 mg PO DAILY PRN PRN Reason: CONSTIPATION Ferrous Sulfate (Feosol) 300 mg GT DAILY [facility] Last Admin: 03/22/18 09:21 Dose: 300 mg Finasteride (Proscar -) 5 mg PO DAILY [facility] Last Admin: 03/22/18 09:21 Dose: 5 mg Ceftriaxone Sodium 2 gm/ (Dextrose) 100 mls @ 200 mls/hr IVPB DAILY [facility]; Protocol Last Admin: 03/22/18 09:20 Dose: 200 mls/hr Insulin Aspart (Novolog Vial Sliding Scale -) 1 vial SQ [facility]; Protocol Last Admin: 03/22/18 06:07 Dose: Not Given Insulin Detemir (Levemir Vial) 5 units SQ [facility] Last Admin: 03/21/18 22:18 Dose: 5 units Levothyroxine Sodium (Synthroid -) 37.5 mcg PEG DAILY@0700 [facility] Last Admin: 03/22/18 06:07 Dose: 37.5 mcg Metoprolol Tartrate (Lopressor -) 25 mg PO BID [facility] Last Admin: 03/22/18 09:21 Dose: 25 mg Non-Formulary Medication (Non-Formulary Med) 1 each GT DAILY [facility] Last Admin: 03/22/18 09:22 Dose: 1 each Nystatin (Nystop Powder -) 1 applic TP BID [facility] Last Admin: 03/22/18 09:22 Dose: 1 applic Oxybutynin Chloride (Ditropan -) 5 mg NGT BID [facility] Last Admin: 03/22/18 09:21 Dose: 5 mg Pantoprazole Sodium (Protonix Packets For Oral Suspension -) 40 mg NGT DAILY [facility] Last Admin: 03/22/18 09:21 Dose: 40 mg Senna (Senna Oral Solution -) 8.8 mg GT HS [facility] Last Admin: 03/21/18 22:19 Dose: Not Given Sertraline HCl (Zoloft -) 50 mg PO DAILY [facility] Last Admin: 03/22/18 09:21 Dose: 50 mg - Objective Vital Signs: Vital Signs Temperature 98.2 F 03/22/18 08:00 Pulse Rate 72 03/22/18 08:00 Respiratory Rate 18 03/22/18 11:09 Blood Pressure 118/62 03/22/18 08:00 O2 Sat by Pulse Oximetry (%) 98 03/22/18 11:10 Constitutional: Yes: No Distress, Calm Cardiovascular: Yes: Pulse Irregular Respiratory: Yes: Mechanically Ventilated, Other Gastrointestinal: Yes: Normal Bowel Sounds, Soft, Other (peg) Genitourinary: Yes: Childs Present Musculoskeletal: Yes: Other Extremities: Yes: Other Neurological: Yes: Other Labs: CBC, BMP 03/22/18 00:55 03/21/18 16:25 INR, PTT INR 1.13 (0.82-1.09) 02/16/18 22:40 Assessment/Plan Problem List - Problems (1) Anemia Code(s): D64.9 - ANEMIA, UNSPECIFIED (2) Chronic kidney disease, stage 3 Code(s): N18.3 - CHRONIC KIDNEY DISEASE, STAGE 3 (MODERATE) (3) Chronic respiratory failure Code(s): J96.10 - CHRONIC RESPIRATORY FAILURE, UNSP W HYPOXIA OR HYPERCAPNIA Qualifiers: Respiratory failure complication: unspecified whether with hypoxia or hypercapnia Qualified Code(s): J96.10 - Chronic respiratory failure, unspecified whether with hypoxia or hypercapnia (4) PAF (paroxysmal atrial fibrillation) Code(s): I48.0 - PAROXYSMAL ATRIAL FIBRILLATION (5) Renal failure Code(s): N19 - UNSPECIFIED KIDNEY FAILURE Qualifiers: Renal failure chronicity: unspecified chronicity Qualified Code(s): N19 - Unspecified kidney failure (6) Diabetes Code(s): E11.9 - TYPE 2 DIABETES MELLITUS WITHOUT COMPLICATIONS (7) TBI (traumatic brain injury) Code(s): S06.9X9A - UNSP INTRACRANIAL INJURY W LOC OF UNSP DURATION, INIT (8) Gzyfa-ry-eemjufd kidney injury Code(s): N17.9 - ACUTE KIDNEY FAILURE, UNSPECIFIED; N18.9 - CHRONIC KIDNEY DISEASE, UNSPECIFIED (9) Zzcri-ea-yzygyez renal failure Code(s): N17.9 - ACUTE KIDNEY FAILURE, UNSPECIFIED; N18.9 - CHRONIC KIDNEY DISEASE, UNSPECIFIED (10) Hypotension Code(s): I95.9 - HYPOTENSION, UNSPECIFIED (11) Hypotension Code(s): I95.9 - HYPOTENSION, UNSPECIFIED 12 gi bleed 13 difuleoy lesion 14 rash patient started on ceftriaxone plan continue current mgmt await for cx reports continue ceftriaxone rest as per the team
--- NOTE | 2018-03-22 13:38 | PN ---
Teaching Attending Note Name of Resident: Erica See ATTENDING PHYSICIAN STATEMENT I saw and evaluated the patient. I reviewed the resident's note and discussed the case with the resident. I agree with the resident's findings and plan as documented. SUBJECTIVE:resting comfortable pt spiked temperature 103.4 yesterday and sepsis workup initiated. +UA was found OBJECTIVE: Last Vital Signs Temp Pulse Resp BP Pulse Ox 98.2 F 72 18 118/62 98 03/22/18 08:00 03/22/18 08:00 03/22/18 11:09 03/22/18 08:00 03/22/18 11:10 General NAD, spontaneous eye opening Abdomen soft less distended. 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 Admitted on 02/17/18 from [facility] chronic respiratory failure and severe anemia with a hg of 5.5 and hypotension. 1. Acute on chronic respiratory failure- due to aspiration PNA. now improved. has returned to baseline vent settings. not weanable due to poor mental status. off steroids. pulmonary on board 2. UTI- Tm103.4. UCx sent. christopher changed. started on ceftriaxone day 2. f/u Cx 3. andrés- likely due to infection. will give gentle hydration x1L NS. repeat 4. acute transaminitis- possible cholestasis? similar episode on 02/01/18. trending down. no workup necessary at this time 5. Multifactorial anemia with Upper GI bleed- s/p EGD with Diluefoy lesion s/p heat probe and epi. s/p 11 units PRBC this hospital stay. Hgb stable. no indication for transfusion. hematology on board. on iron supplementation 6. new onset afib- rate controlled. cont metoprolol. not a candidate for anticoagulation iwth recent GI bleed. echo reviewed. cardio on board 7. DM-improved. cont levemir. cont iss. titrate as needed to optimize control 8. TBI- s/p trach and PEG. 9. 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 10. legally blind and deaf 11. hypothyroid- on Lt4 12. urinary incontinence- with chronic indwelling christopher. cont oxybutin/flomax 13. depression- on zoloft 14. DVT ppx- SCD. would hold pharmacologic anticoagulation with recent GI bleed 15. poor overall prognosis. family being difficult with discharge planning as once have acceptance to facility that they want they have been changing the plan. believe care at this time is likely futile as patient has had no improvement during the last few months. ethics consulted
--- NOTE | 2018-03-22 14:08 | PN ---
Progress Note, Physician History of Present Illness: 87M w/ pmh of traumatic fall (s/p neck (C4,5, and 6)/back surgery, tracheotomy placement now ventilator dependent, and PEG tube placement), frequent pneumonia , emphysema, A-fib, CHF, DM, dementia, renal failure, nonverbal TBI, paraplegia , and legal blindness and deafness, who presents to the emergency department via EMS from [facility] with 3 days of hypotension. As per patients son , his blood pressure has been decreasing over the past few days. He reports that at baseline, his systolic is between 110-119 in the mornings and between 100-109 at night. Pt has failed 5 weaning trials in the last few days, and it was noticed that there was blood around the tracheostomy site when suctioning. Pt' son denies recent fevers, chills, chest pain, emesis, hematemesis, melena, and hematochezia in pt. - Current Medication List Current Medications: Active Medications Acetaminophen (Tylenol -) 650 mg PO Q4H PRN PRN Reason: FEVER Last Admin: 03/21/18 16:52 Dose: 650 mg Amino Acids (Prosource No Carb Liquid Pkt) 30 ml PO DAILY@0800 [facility] Last Admin: 03/22/18 09:20 Dose: 30 ml Artificial Tears (Artificial Tears) 2 drop OU BID [facility] Last Admin: 03/22/18 09:21 Dose: 2 drop Atorvastatin Calcium (Lipitor -) 10 mg GT HS [facility] Last Admin: 03/21/18 22:18 Dose: 10 mg Collagenase (Santyl -) 1 applic TP DAILY [facility] Last Admin: 03/22/18 09:23 Dose: 1 applic Diltiazem HCl (Cardizem Injection -) 10 mg IVPUSH Q6H PRN PRN Reason: TACHYCARDIA Last Admin: 03/02/18 09:45 Dose: 10 mg Docusate Sodium (Colace Liquid -) 100 mg PO DAILY PRN PRN Reason: CONSTIPATION Ferrous Sulfate (Feosol) 300 mg GT DAILY [facility] Last Admin: 03/22/18 09:21 Dose: 300 mg Finasteride (Proscar -) 5 mg PO DAILY [facility] Last Admin: 03/22/18 09:21 Dose: 5 mg Ceftriaxone Sodium 2 gm/ (Dextrose) 100 mls @ 200 mls/hr IVPB DAILY [facility]; Protocol Last Admin: 03/22/18 09:20 Dose: 200 mls/hr Insulin Aspart (Novolog Vial Sliding Scale -) 1 vial SQ ACHS [facility]; Protocol Last Admin: 03/22/18 12:02 Dose: 2 units Insulin Detemir (Levemir Vial) 5 units SQ HS [facility] Last Admin: 03/21/18 22:18 Dose: 5 units Levothyroxine Sodium (Synthroid -) 37.5 mcg PEG DAILY@0700 [facility] Last Admin: 03/22/18 06:07 Dose: 37.5 mcg Metoprolol Tartrate (Lopressor -) 25 mg PO BID [facility] Last Admin: 03/22/18 09:21 Dose: 25 mg Non-Formulary Medication (Non-Formulary Med) 1 each GT DAILY [facility] Last Admin: 03/22/18 09:22 Dose: 1 each Nystatin (Nystop Powder -) 1 applic TP BID [facility] Last Admin: 03/22/18 09:22 Dose: 1 applic Oxybutynin Chloride (Ditropan -) 5 mg NGT BID [facility] Last Admin: 03/22/18 09:21 Dose: 5 mg Pantoprazole Sodium (Protonix Packets For Oral Suspension -) 40 mg NGT DAILY [facility] Last Admin: 03/22/18 09:21 Dose: 40 mg Senna (Senna Oral Solution -) 8.8 mg GT HS [facility] Last Admin: 03/21/18 22:19 Dose: Not Given Sertraline HCl (Zoloft -) 50 mg PO DAILY [facility] Last Admin: 03/22/18 09:21 Dose: 50 mg - Objective Vital Signs: Vital Signs Temperature 98.2 F 03/22/18 08:00 Pulse Rate 72 03/22/18 08:00 Respiratory Rate 14 03/22/18 13:35 Blood Pressure 118/62 03/22/18 08:00 O2 Sat by Pulse Oximetry (%) 98 03/22/18 11:10 Eyes: Yes: WNL, Conjunctiva Clear, EOM Intact HENT: Yes: WNL, Atraumatic, Normocephalic Neck: Yes: WNL, Supple, Trachea Midline Cardiovascular: Yes: WNL, Regular Rate and Rhythm Respiratory: Yes: Mechanically Ventilated Gastrointestinal: Yes: WNL, Normal Bowel Sounds Genitourinary: Yes: WNL Musculoskeletal: Yes: WNL Extremities: Yes: WNL Edema: No Integumentary: Yes: WNL ...Motor Strength: WNL Psychiatric: Yes: WNL Labs: CBC, BMP 03/22/18 00:55 03/21/18 16:25 INR, PTT INR 1.13 (0.82-1.09) 02/16/18 22:40 Assessment/Plan Problems (1) Anemia Assessment/Plan: s/p EGD, cauterization, and PRBCs. Maintain hydration. F/u BUn/Cr, Hb (86 presently). Code(s): D64.9 - ANEMIA, UNSPECIFIED Qualifiers: Anemia type: due to chronic kidney disease Chronic kidney disease stage: unspecified stage Qualified Code(s): N18.9 - Chronic kidney disease, unspecified; D63.1 - Anemia in chronic kidney disease (2) Chronic respiratory failure Assessment/Plan: Ventilator dependent; on trach. Code(s): J96.10 - CHRONIC RESPIRATORY FAILURE, UNSP W HYPOXIA OR HYPERCAPNIA Qualifiers: Respiratory failure complication: unspecified whether with hypoxia or hypercapnia Qualified Code(s): J96.10 - Chronic respiratory failure, unspecified whether with hypoxia or hypercapnia (3) Hematuria Code(s): R31.9 - HEMATURIA, UNSPECIFIED (4) PAF (paroxysmal atrial fibrillation) Assessment/Plan: EKG 02/23/18: AF with RVR (HR 150 bpm); now has HR in 80s bpm. Increased metoprolol to 25 mg bid (pt has required occasional IV diltiazem for rapid VR); f/u HR and BP, and increase metoprolol as tolerated. If pt becomes profoundly bradycardia, will have to consider PPM. anticoagulation held due to GI bleed. TSH 3.59 recently. Code(s): I48.0 - PAROXYSMAL ATRIAL FIBRILLATION (5) S/P percutaneous endoscopic gastrostomy (PEG) tube placement Code(s): Z93.1 - GASTROSTOMY STATUS (6) Acute on chronic diastolic CHF (congestive heart failure) Code(s): I50.33 - ACUTE ON CHRONIC DIASTOLIC (CONGESTIVE) HEART FAILURE (7) Sinus bradycardia Code(s): R00.1 - BRADYCARDIA, UNSPECIFIED (8) TBI (traumatic brain injury) Code(s): S06.9X9A - UNSP INTRACRANIAL INJURY W LOC OF UNSP DURATION, INIT Qualifiers: Encounter type: sequela Loss of consciousness presence/duration: with LOC of unspecified duration Qualified Code(s): S06.9X9S - Unspecified intracranial injury with loss of consciousness of unspecified duration, sequela (9) Severe mitral regurgitation Code(s): I34.0 - NONRHEUMATIC MITRAL (VALVE) INSUFFICIENCY (10) Hypokalemia Code(s): E87.6 - HYPOKALEMIA (11) Hypoalbuminemia Code(s): E88.09 - OTH DISORDERS OF PLASMA-PROTEIN METABOLISM, NEC
[2018-03-22] MEDS ORDERED: SODIUM CHLORIDE 1,000 ML IV SCH (14:30)
[2018-03-22 15:19] VITALS: BMI 25.3
--- NOTE | 2018-03-22 18:57 | PN ---
Physical Exam: SUBJECTIVE: Patient seen and examined resting comfortably. Patient spiked a temperature of 103.5 yesterday early evening, a blood culture, UA and CXR were ordered. A positive UA was found. No other acute events as per nursing. OBJECTIVE: Vital Signs Period Temp Pulse Resp BP Sys/Wills Pulse Ox Last 24 Hr 98.1 F-100.5 F 63-72 14-18 110-118/46-62 98-100 GENERAL: Resting comfortably, spontaneous eye opening LUNGS: Mechanical Breath sounds anteriorly, decreased effort HEART: Regular rate and rhythm, S1, S2 without murmur, rub or gallop ABDOMEN: Soft, normoactive bowel sounds, distended, PEG tube present without bleeding, drainage or erythema : Chritsopher catheter present draining Clear, yellow urine NEUROLOGICAL: Upper extremities contracted b/l Laboratory Results - last 24 hr 03/19/18 03/21/18 03/21/18 22:52 17:00 21:00 WBC RBC Hgb Hct MCV MCH MCHC RDW Plt Count MPV Absolute Neuts (auto) Neutrophils % Lymphocytes % Monocytes % Eosinophils % Basophils % Nucleated RBC % POC Glucometer [address] Urine Appearance Cloudy Turbid Urine pH 5.0 5.0 Ur Specific [place] 1.014 1.014 Urine Protein 2+ H 2+ H Urine Glucose (UA) Negative Negative Urine Ketones Negative Negative Urine Blood 3+ H 3+ H Urine Nitrite Negative Negative Urine Bilirubin Negative Negative Urine Urobilinogen Negative 2.0 Ur Leukocyte Esterase 3+ H 3+ H Urine WBC (Auto) 400 1091 Urine RBC (Auto) 58 75 Urine Bacteria Moderate 03/21/18 03/22/18 03/22/18 22:13 00:55 06:05 WBC 10.4 H RBC 2.77 L Hgb 8.0 L Hct 24.8 L MCV 89.5 MCH 28.9 MCHC 32.3 RDW 17.4 H Plt Count 158 MPV 10.2 Absolute Neuts (auto) 9.0 Neutrophils % 86.1 H Lymphocytes % 6.9 L D Monocytes % 6.3 Eosinophils % 0.5 D Basophils % 0.2 Nucleated RBC % 0 POC Glucometer 189 134 Urine Color Urine Appearance Urine pH Ur Specific [place] Urine Protein Urine Glucose (UA) Urine Ketones Urine Blood Urine Nitrite Urine Bilirubin Urine Urobilinogen Ur Leukocyte Esterase Urine WBC (Auto) Urine RBC (Auto) Urine Bacteria 03/22/18 03/22/18 13:23 17:40 WBC RBC Hgb Hct MCV MCH MCHC RDW Plt Count MPV Absolute Neuts (auto) Neutrophils % Lymphocytes % Monocytes % Eosinophils % Basophils % Nucleated RBC % POC Glucometer 152 140 Urine Color Urine Appearance Urine pH Ur Specific [place] Urine Protein Urine Glucose (UA) Urine Ketones Urine Blood Urine Nitrite Urine Bilirubin Urine Urobilinogen Ur Leukocyte Esterase Urine WBC (Auto) Urine RBC (Auto) Urine Bacteria Microbiology 03/21/18 16:30 Blood - Peripheral Venous Blood Culture - Preliminary NO GROWTH OBTAINED AFTER 24 HOURS, INCUBATION TO CONTINUE FOR 4 DAYS. 03/21/18 16:25 Blood - Peripheral Venous Blood Culture - Preliminary NO GROWTH OBTAINED AFTER 24 HOURS, INCUBATION TO CONTINUE FOR 4 DAYS. 02/17/18 03:00 Blood - Peripheral Venous Blood Culture - Final NO GROWTH AFTER 5 DAYS INCUBATION 02/17/18 03:00 Blood - Peripheral Venous Blood Culture - Final NO GROWTH AFTER 5 DAYS INCUBATION 02/17/18 10:40 Sputum - Endotrachea Suction/Ventilator Gram Stain - Final 02/17/18 10:40 Sputum - Endotrachea Suction/Ventilator Sputum Culture - Final Pseudomonas Aeruginosa Pseudo Fluorescens/[place] 02/16/18 23:40 Urine - Urine Clean Catch Urine Culture - Final NO GROWTH OBTAINED Active Medications Acetaminophen (Tylenol -) 650 mg PO Q4H PRN PRN Reason: FEVER Last Admin: 03/21/18 16:52 Dose: 650 mg Amino Acids (Prosource No Carb Liquid Pkt) 30 ml PO DAILY@0800 [facility] Last Admin: 03/22/18 09:20 Dose: 30 ml Artificial Tears (Artificial Tears) 2 drop OU BID [facility] Last Admin: 03/22/18 09:21 Dose: 2 drop Atorvastatin Calcium (Lipitor -) 10 mg GT HS [facility] Last Admin: 03/21/18 22:18 Dose: 10 mg Collagenase (Santyl -) 1 applic TP DAILY [facility] Last Admin: 03/22/18 09:23 Dose: 1 applic Diltiazem HCl (Cardizem Injection -) 10 mg IVPUSH Q6H PRN PRN Reason: TACHYCARDIA Last Admin: 03/02/18 09:45 Dose: 10 mg Docusate Sodium (Colace Liquid -) 100 mg PO DAILY PRN PRN Reason: CONSTIPATION Ferrous Sulfate (Feosol) 300 mg GT DAILY [facility] Last Admin: 03/22/18 09:21 Dose: 300 mg Finasteride (Proscar -) 5 mg PO DAILY [facility] Last Admin: 03/22/18 09:21 Dose: 5 mg Ceftriaxone Sodium 2 gm/ (Dextrose) 100 mls @ 200 mls/hr IVPB DAILY [facility]; Protocol Last Admin: 03/22/18 09:20 Dose: 200 mls/hr Sodium Chloride (Normal Saline -) 1,000 mls @ 42 mls/hr IV ASDIR [facility] Stop: 03/23/18 14:19 Last Admin: 03/22/18 17:41 Dose: 42 mls/hr Insulin Aspart (Novolog Vial Sliding Scale -) 1 vial SQ [facility]; Protocol Last Admin: 03/22/18 17:41 Dose: Not Given Insulin Detemir (Levemir Vial) 5 units SQ [facility] Last Admin: 03/21/18 22:18 Dose: 5 units Levothyroxine Sodium (Synthroid -) 37.5 mcg PEG DAILY@0700 [facility] Last Admin: 03/22/18 06:07 Dose: 37.5 mcg Metoprolol Tartrate (Lopressor -) 25 mg PO BID [facility] Last Admin: 03/22/18 09:21 Dose: 25 mg Non-Formulary Medication (Non-Formulary Med) 1 each GT DAILY [facility] Last Admin: 03/22/18 09:22 Dose: 1 each Nystatin (Nystop Powder -) 1 applic TP BID [facility] Last Admin: 03/22/18 09:22 Dose: 1 applic Oxybutynin Chloride (Ditropan -) 5 mg NGT BID [facility] Last Admin: 03/22/18 09:21 Dose: 5 mg Pantoprazole Sodium (Protonix Packets For Oral Suspension -) 40 mg NGT DAILY [facility] Last Admin: 03/22/18 09:21 Dose: 40 mg Senna (Senna Oral Solution -) 8.8 mg GT HS [facility] Last Admin: 03/21/18 22:19 Dose: Not Given Sertraline HCl (Zoloft -) 50 mg PO DAILY [facility] Last Admin: 03/22/18 09:21 Dose: 50 mg ASSESSMENT/PLAN: 87 year old male with a PMHx significant for Diastolic heart failure, NIDDM, CKD , and 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 Admitted on 02/17/18 from [facility] for chronic respiratory failure and severe anemia with a hg of 5.5 and hypotension. 1. UTI - Temperature reached 103.5 - UA Positive for 3+ Leukocyte esterase, 400 WBC - Urine culture pending - Blood culture pending - CXR: No acute pathology. No significant change since prior study. - Christopher catheter changed - Ceftriaxone day 2 2. KATERIN - Likely due to infection - Given 1L NS @ 42cc 3. Multifactorial anemia with UGIB - s/p EGD with Diluefoy lesion - s/p heat probe and epi - s/p 10 units PRBC this hospital stay - Hgb currently stable, 8.5 this morning, No signs of Active bleeding - 1 Unit Packed RBC Transfused on 03/11 - GI (Dr. Diaz) Consulted, appreciate recommendations, - Glucerna Tube feeds being tolerated well - Experiences recurrent hypoglycemia in the morning, discontinued levemir currently, will continue to monitor - Abdominal XRay: Functional PEG tube with tip in stomach. No sign of obstruction or leak - Family concerned for abdominal bloating, Serial abdomen exams, continue to monitor - Hematology consulted, Appreciate recommendations - Continue Ferrous Sulfate 300 mg GT DAILY [facility] 4. Acute on chronic respiratory failure - Due to aspiration PNA that has now improved, patient has returned to baseline vent settings - Not weanable due to poor mental status - Pulmonary consulted, Appreciate recommendations 5. Aspiration PNA - Completed course of Zosyn, Not on any other ABx - ID (Dr. Garza) consulted, Appreciate recommendations 6. Acute Transaminitis - AST/ALT Trending down - Has hx of similar episode on 02/01/18 that self-resolved - Will continue to monitor 7. Acute on CKD - Hypoperfusion - BUN remains elevated, likely due to GI bleed - Cr remains elevated - No longer on steroids - Will continue to monitor - Nephrology consulted, Appreciate recommendations 8. New onset Afib - rate controlled, Continue Metoprolol Tartrate 25 mg PO BID [facility] - Not a candidate for anticoagulation due to recent GI bleed - Cardiology consulted, Appreciate recommendations 9. Hypernatremia - resolved - will continue water flushes and monitor 10. Thrombophilia - stable off medications 11. DM - Improved - Continue Insulin Aspart SQ ACHS [facility] - Continue Insulin Detemir SQ HS [facility] 12. 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 Hypothyroid - Continue Synthroid 37.5 mcg PEG DAILY @ 0700 [facility] 14. Urinary incontinence - Chronic indwelling christopher. cont oxybutin/flomax - Flomax changed to Proscar - Continue Oxybutynin Chloride 5 mg BID [facility] 15. Depression - Continue on Sertraline HCl 50 mg PO DAILY [facility] 16. DVT ppx - SCD - Not a candidate for anticoagulation due to recent GI Bleed Dispo: Waiting for insurance to approve Krysta/SNF. Ethics consulted Visit type - Emergency Visit Emergency Visit: Yes ED Registration Date: 02/17/18 Care time: The patient presented to the Emergency Department on the above date and was hospitalized for further evaluation of their emergent condition. - New Patient This patient is new to me today: No - Critical Care Critical Care patient: No
--- NOTE | 2018-03-22 20:28 | EKG ---
Test Reason : Blood Pressure : / mmHG Vent. Rate : 059 BPM Atrial Rate : 059 BPM P-R Int : 128 ms QRS Dur : 066 ms QT Int : 436 ms P-R-T Axes : 017 018 035 degrees QTc Int : 431 ms SINUS BRADYCARDIA LOW VOLTAGE QRS SEPTAL INFARCT (CITED ON OR BEFORE 24-FEB-2018) ABNORMAL ECG WHEN COMPARED WITH ECG OF 01-MAR-2018 11:16, SINUS RHYTHM HAS REPLACED ATRIAL FIBRILLATION Confirmed by MD DIONE, HERNANDEZ ([id number]) on 03/22/2018 8:28:09 PM Referred By: JEFFREY VELEZ DR Confirmed By:HERNANDEZ PARHAM MD
[2018-03-22] MEDS: INSULIN (LEVEMIR) 100 UNITS/ML UNITS SQ SCH (23:07)
[2018-03-22] MEDS: SENNOSIDES 8.8 MG/5 ML BULK BOTTLE GT SCH (23:10)
[2018-03-22] MEDS: ATORVASTATIN CA 10 MG TABLET (FP) GT SCH (23:21)
[2018-03-23] MEDS: LEVOTHYROXINE NA 25 MCG TABLET (FP) PEG SCH (06:16)
[2018-03-23] MEDS: INSULIN SLIDING SCALE (NOVOLOG) 1 VIAL SQ SCH ×4 (06:19→21:56)
[2018-03-23] MEDS ORDERED: INSULIN (LEVEMIR) 100 UNITS/ML UNITS SQ ONE (07:13)
[2018-03-23] MEDS ORDERED: INSULIN (NOVOLOG) ASPART 100 UNITS/ML 10ML VIAL ONE (07:13)
[2018-03-23] MEDS ORDERED: PT OWN MED DRAWER 7, Y5N ONE ×2 (07:14→21:49)
[2018-03-23 07:36] LABS: BASO % 0.2 % (0-2.0); EOS % 0.7 % (0-4.5); HEMATOCRIT 22.7 % (35.4-49); HEMOGLOBIN 7.5 GM/dL (11.7-16.9); LYMPH % 7.5 % (8-40); MCH 29.3 pg (25.7-33.7); MCHC 32.8 g/dl (32.0-35.9); MEAN CELL VOLUME 89.2 fl (80-96); MEAN PLT VOLUME 10.3 fl (7.5-11.1); MONO % 6.4 % (3.8-10.2); NEUT % 85.2 % (42.8-82.8); PLATELET COUNT 152 K/MM3 (134-434); RBC 2.55 M/mm3 (4.00-5.60); RDW 17.6 % (11.9-15.9); WHITE BLOOD COUNT 9.5 K/mm3 (4.0-10.0)
--- NOTE | 2018-03-23 07:52 | PN ---
Progress Note, Physician - Current Medication List Current Medications: Active Medications Acetaminophen (Tylenol -) 650 mg PO Q4H PRN PRN Reason: FEVER Last Admin: 03/21/18 16:52 Dose: 650 mg Amino Acids (Prosource No Carb Liquid Pkt) 30 ml PO DAILY@0800 [facility] Last Admin: 03/22/18 09:20 Dose: 30 ml Artificial Tears (Artificial Tears) 2 drop OU BID [facility] Last Admin: 03/22/18 23:23 Dose: 2 drop Atorvastatin Calcium (Lipitor -) 10 mg GT HS [facility] Last Admin: 03/22/18 23:21 Dose: 10 mg Collagenase (Santyl -) 1 applic TP DAILY [facility] Last Admin: 03/22/18 09:23 Dose: 1 applic Diltiazem HCl (Cardizem Injection -) 10 mg IVPUSH Q6H PRN PRN Reason: TACHYCARDIA Last Admin: 18 09:45 Dose: 10 mg Docusate Sodium (Colace Liquid -) 100 mg PO DAILY PRN PRN Reason: CONSTIPATION Ferrous Sulfate (Feosol) 300 mg GT DAILY [facility] Last Admin: 03/22/18 09:21 Dose: 300 mg Finasteride (Proscar -) 5 mg PO DAILY [facility] Last Admin: 03/22/18 09:21 Dose: 5 mg Ceftriaxone Sodium 2 gm/ (Dextrose) 100 mls @ 200 mls/hr IVPB DAILY [facility]; Protocol Last Admin: 03/22/18 09:20 Dose: 200 mls/hr Sodium Chloride (Normal Saline -) 1,000 mls @ 42 mls/hr IV ASDIR [facility] Stop: 03/23/18 14:19 Last Admin: 03/22/18 17:41 Dose: 42 mls/hr Insulin Aspart (Novolog Vial Sliding Scale -) 1 vial SQ ACHS [facility]; Protocol Last Admin: 03/23/18 06:19 Dose: 4 units Insulin Detemir (Levemir Vial) 5 units SQ [facility] Last Admin: 03/22/18 23:07 Dose: 5 units Levothyroxine Sodium (Synthroid -) 37.5 mcg PEG DAILY@0700 [facility] Last Admin: 03/23/18 06:16 Dose: 37.5 mcg Metoprolol Tartrate (Lopressor -) 25 mg PO BID [facility] Last Admin: 03/22/18 23:09 Dose: 25 mg Non-Formulary Medication (Non-Formulary Med) 1 each GT DAILY [facility] Last Admin: 03/22/18 09:22 Dose: 1 each Nystatin (Nystop Powder -) 1 applic TP BID [facility] Last Admin: 03/22/18 23:01 Dose: 1 applic Oxybutynin Chloride (Ditropan -) 5 mg NGT BID [facility] Last Admin: 03/22/18 23:09 Dose: 5 mg Pantoprazole Sodium (Protonix Packets For Oral Suspension -) 40 mg NGT DAILY [facility] Last Admin: 03/22/18 09:21 Dose: 40 mg Senna (Senna Oral Solution -) 8.8 mg GT HS [facility] Last Admin: 03/22/18 23:10 Dose: 8.8 mg Sertraline HCl (Zoloft -) 50 mg PO DAILY [facility] Last Admin: 03/22/18 09:21 Dose: 50 mg - Objective Vital Signs: Vital Signs Temperature 98.3 F 03/23/18 05:00 Pulse Rate 64 03/23/18 05:00 Respiratory Rate 14 03/23/18 06:10 Blood Pressure 113/54 03/23/18 05:00 O2 Sat by Pulse Oximetry (%) 98 03/22/18 21:00 Labs: CBC, BMP 03/23/18 06:35 INR, PTT INR 1.13 (0.82-1.09) 02/16/18 22:40 Problem List - Problems (1) Anemia Code(s): D64.9 - ANEMIA, UNSPECIFIED Qualifiers: Anemia type: due to chronic kidney disease Chronic kidney disease stage: unspecified stage Qualified Code(s): N18.9 - Chronic kidney disease, unspecified; D63.1 - Anemia in chronic kidney disease (2) Chronic kidney disease, stage 3 Code(s): N18.3 - CHRONIC KIDNEY DISEASE, STAGE 3 (MODERATE) (3) Chronic respiratory failure Code(s): J96.10 - CHRONIC RESPIRATORY FAILURE, UNSP W HYPOXIA OR HYPERCAPNIA Qualifiers: Respiratory failure complication: unspecified whether with hypoxia or hypercapnia Qualified Code(s): J96.10 - Chronic respiratory failure, unspecified whether with hypoxia or hypercapnia (4) Hematuria Code(s): R31.9 - HEMATURIA, UNSPECIFIED (5) Hypotension Code(s): I95.9 - HYPOTENSION, UNSPECIFIED (6) PAF (paroxysmal atrial fibrillation) Code(s): I48.0 - PAROXYSMAL ATRIAL FIBRILLATION (7) S/P percutaneous endoscopic gastrostomy (PEG) tube placement Code(s): Z93.1 - GASTROSTOMY STATUS (8) Tracheostomy dependent Code(s): Z93.0 - TRACHEOSTOMY STATUS (9) Acute on chronic diastolic CHF (congestive heart failure) Code(s): I50.33 - ACUTE ON CHRONIC DIASTOLIC (CONGESTIVE) HEART FAILURE (10) Sinus bradycardia Code(s): R00.1 - BRADYCARDIA, UNSPECIFIED (11) TBI (traumatic brain injury) Code(s): S06.9X9A - UNSP INTRACRANIAL INJURY W LOC OF UNSP DURATION, INIT Qualifiers: Encounter type: sequela Loss of consciousness presence/duration: with LOC of unspecified duration Qualified Code(s): S06.9X9S - Unspecified intracranial injury with loss of consciousness of unspecified duration, sequela (12) Severe mitral regurgitation Code(s): I34.0 - NONRHEUMATIC MITRAL (VALVE) INSUFFICIENCY
[2018-03-23 08:11] LABS: ALBUMIN 1.7 g/dl (3.4-5.0); ANION GAP 9 (8-16); CALCIUM 7.8 mg/dL (8.5-10.1); CHLORIDE 103 mmol/L (98-107); CO2 27 mmol/L (21-32); GLUCOSE,RANDOM 164 mg/dL (74-106); MAGNESIUM 2.1 mg/dL (1.8-2.4); POTASSIUM 3.8 mmol/L (3.5-5.1); SODIUM 139 mmol/L (136-145)
[2018-03-23 08:15] LABS: ALK PHOS 241 U/L (45-117); BILIRUBIN,TOTAL 0.2 mg/dL (0.2-1.0); PHOSPHOROUS 3.3 mg/dL (2.5-4.9); SGOT/AST 95 U/L (15-37); SGPT/ALT 87 U/L (12-78); TOT PROT 5.6 g/dl (6.4-8.2)
[2018-03-23 08:53] LABS: BLOOD UREA NITROGEN 111 mg/dL (7-18)
[2018-03-23] MEDS: AMINO ACIDS/PROTEIN HYDROLYS 30 ML LIQUID.PKT PO SCH (09:21)
[2018-03-23] MEDS ORDERED: DEXTROSE 5%-WATER 100 ML IVPB ONE (11:03)
[2018-03-23] MEDS: METOPROLOL TARTRATE 25 MG TABLET (FP) PO SCH ×2 (11:15→21:50)
[2018-03-23] MEDS: OXYBUTYNIN CHLORIDE 5 MG TABLET NGT SCH ×2 (11:15→21:50)
[2018-03-23] MEDS: FINASTERIDE 5 MG TABLET (FP) PO SCH (11:15)
[2018-03-23] MEDS: SERTRALINE HCL 25 MG TABLET (FP) PO SCH (11:15)
[2018-03-23] MEDS: FERROUS SO4 300 MG/5 ML ORAL SOLN UNIT DOSE CUPS GT SCH (11:15)
[2018-03-23] MEDS: ARTIFICIAL TEARS (POLYVINYL ALCOHOL 1.4%) OPTH DROPS OU SCH ×2 (11:16→21:59)
[2018-03-23] MEDS: PANTOPRAZOLE SOD 40 MG SUSPENSION PACKET NGT SCH (11:17)
[2018-03-23] MEDS: CEFTRIAXONE 2 GM in DEXTROSE 5%-WATER 100 ML IVPB SCH (11:21)
[2018-03-23] MEDS: NYSTATIN POWDER 100,000 UNITS/GM - 15 GM TOPICAL POWDER TP SCH ×2 (11:29→22:00)
--- NOTE | 2018-03-23 12:14 | PN ---
Progress Note (short form) - Note Progress Note: PULMONARY Vented on volume assist control. Fever curve down. UA, Ucx positive. Vital Signs Period Temp Pulse Resp BP Sys/Wills Pulse Ox Last 24 Hr 98.3 F-99.8 F 64-123 14-18 107-131/53-60 96-98 Gen: vented Heart: RRR Lung: decreased breath sounds at the bases Abd: soft, nontender Ext: no edema CBC, BMP 03/23/18 06:35 03/23/18 06:35 Active Medications Acetaminophen (Tylenol -) 650 mg PO Q4H PRN PRN Reason: FEVER Last Admin: 03/21/18 16:52 Dose: 650 mg Amino Acids (Prosource No Carb Liquid Pkt) 30 ml PO DAILY@0800 [facility] Last Admin: 03/23/18 09:21 Dose: 30 ml Artificial Tears (Artificial Tears) 2 drop OU BID [facility] Last Admin: 03/23/18 11:16 Dose: 2 drop Atorvastatin Calcium (Lipitor -) 10 mg GT HS [facility] Last Admin: 03/22/18 23:21 Dose: 10 mg Collagenase (Santyl -) 1 applic TP DAILY [facility] Last Admin: 03/22/18 09:23 Dose: 1 applic Diltiazem HCl (Cardizem Injection -) 10 mg IVPUSH Q6H PRN PRN Reason: TACHYCARDIA Last Admin: 03/02/18 09:45 Dose: 10 mg Docusate Sodium (Colace Liquid -) 100 mg PO DAILY PRN PRN Reason: CONSTIPATION Ferrous Sulfate (Feosol) 300 mg GT DAILY [facility] Last Admin: 03/23/18 11:15 Dose: 300 mg Finasteride (Proscar -) 5 mg PO DAILY [facility] Last Admin: 03/23/18 11:15 Dose: 5 mg Ceftriaxone Sodium 2 gm/ (Dextrose) 100 mls @ 200 mls/hr IVPB DAILY [facility]; Protocol Last Admin: 03/23/18 11:21 Dose: 200 mls/hr Sodium Chloride (Normal Saline -) 1,000 mls @ 42 mls/hr IV ASDIR [facility] Stop: 03/23/18 14:19 Last Admin: 03/22/18 17:41 Dose: 42 mls/hr Insulin Aspart (Novolog Vial Sliding Scale -) 1 vial SQ ACHS [facility]; Protocol Last Admin: 03/23/18 11:20 Dose: Not Given Insulin Detemir (Levemir Vial) 5 units SQ HS [facility] Last Admin: 03/22/18 23:07 Dose: 5 units Levothyroxine Sodium (Synthroid -) 37.5 mcg PEG DAILY@0700 [facility] Last Admin: 03/23/18 06:16 Dose: 37.5 mcg Metoprolol Tartrate (Lopressor -) 25 mg PO BID [facility] Last Admin: 03/23/18 11:15 Dose: 25 mg Non-Formulary Medication (Non-Formulary Med) 1 each GT DAILY [facility] Last Admin: 03/22/18 09:22 Dose: 1 each Nystatin (Nystop Powder -) 1 applic TP BID [facility] Last Admin: 03/23/18 11:29 Dose: 1 applic Oxybutynin Chloride (Ditropan -) 5 mg NGT BID [facility] Last Admin: 03/23/18 11:15 Dose: 5 mg Pantoprazole Sodium (Protonix Packets For Oral Suspension -) 40 mg NGT DAILY [facility] Last Admin: 03/23/18 11:17 Dose: 40 mg Senna (Senna Oral Solution -) 8.8 mg GT HS [facility] Last Admin: 03/22/18 23:10 Dose: 8.8 mg Sertraline HCl (Zoloft -) 50 mg PO DAILY [facility] Last Admin: 03/23/18 11:15 Dose: 50 mg A/P UTI GI Bleed/Gastric Dieulafoy Lesion s/p EGD/epi/cautery Acute Blood Loss Anemia Chronic Respiratory Failure Pneumonia h/o Traumatic Brain Injury Functional Quadriplegia Acute on Chronic Renal Failure Atrial Fibrillation DM Dementia - continue antibiotics - f/u pending cultures - monitor H/H - protonix - rate control - holding anticoagulation - continue volume assist control - poor candidate for weaning due to poor mental status - enteral feeds as tolerated - DVT/GI prophylaxis
[2018-03-23] MEDS: NON-FORMULARY MED GT SCH (12:31)
--- NOTE | 2018-03-23 14:24 | PN ---
Teaching Attending Note Name of Resident: Erica See ATTENDING PHYSICIAN STATEMENT I saw and evaluated the patient. I reviewed the resident's note and discussed the case with the resident. I agree with the resident's findings and plan as documented with exceptions below. SUBJECTIVE: Patient seen and examined, non verbal, eyes open, unable to do ROS. OBJECT Vital Signs Period Temp Pulse Resp BP Sys/Wills Pulse Ox Last 24 Hr 98.3 F-99.8 F 64-123 14-19 107-131/53-60 96-98 Intake & Output 03/20/18 03/21/18 03/22/18 03/23/18 23:59 23:59 23:59 23:59 Intake Total 2390 0 2395 1584 Output Total 4221 699 2816 300 Balance 1290 -700 1345 1284 General: awake in bed, in no acute distress Chest: decreased effort, positive air entry Abdomen:Soft, PEG in place, no grimacing on deep palpation, positive bowel sounds extremities: no edema Active Medications Acetaminophen (Tylenol -) 650 mg PO Q4H PRN PRN Reason: FEVER Last Admin: 03/21/18 16:52 Dose: 650 mg Amino Acids (Prosource No Carb Liquid Pkt) 30 ml PO DAILY@0800 [facility] Last Admin: 03/23/18 09:21 Dose: 30 ml Artificial Tears (Artificial Tears) 2 drop OU BID [facility] Last Admin: 03/23/18 11:16 Dose: 2 drop Atorvastatin Calcium (Lipitor -) 10 mg GT HS [facility] Last Admin: 03/22/18 23:21 Dose: 10 mg Collagenase (Santyl -) 1 applic TP DAILY [facility] Last Admin: 03/22/18 09:23 Dose: 1 applic Diltiazem HCl (Cardizem Injection -) 10 mg IVPUSH Q6H PRN PRN Reason: TACHYCARDIA Last Admin: 03/02/18 09:45 Dose: 10 mg Docusate Sodium (Colace Liquid -) 100 mg PO DAILY PRN PRN Reason: CONSTIPATION Ferrous Sulfate (Feosol) 300 mg GT DAILY [facility] Last Admin: 03/23/18 11:15 Dose: 300 mg Finasteride (Proscar -) 5 mg PO DAILY [facility] Last Admin: 03/23/18 11:15 Dose: 5 mg Ceftriaxone Sodium 2 gm/ (Dextrose) 100 mls @ 200 mls/hr IVPB DAILY [facility]; Protocol Last Admin: 03/23/18 11:21 Dose: 200 mls/hr Insulin Aspart (Novolog Vial Sliding Scale -) 1 vial SQ ACHS [facility]; Protocol Last Admin: 03/23/18 11:20 Dose: Not Given Insulin Detemir (Levemir Vial) 5 units SQ HS [facility] Last Admin: 03/22/18 23:07 Dose: 5 units Levothyroxine Sodium (Synthroid -) 37.5 mcg PEG DAILY@0700 [facility] Last Admin: 03/23/18 06:16 Dose: 37.5 mcg Metoprolol Tartrate (Lopressor -) 25 mg PO BID [facility] Last Admin: 03/23/18 11:15 Dose: 25 mg Non-Formulary Medication (Non-Formulary Med) 1 each GT DAILY [facility] Last Admin: 03/22/18 09:22 Dose: 1 each Nystatin (Nystop Powder -) 1 applic TP BID [facility] Last Admin: 03/23/18 11:29 Dose: 1 applic Oxybutynin Chloride (Ditropan -) 5 mg NGT BID [facility] Last Admin: 03/23/18 11:15 Dose: 5 mg Pantoprazole Sodium (Protonix Packets For Oral Suspension -) 40 mg NGT DAILY [facility] Last Admin: 03/23/18 11:17 Dose: 40 mg Senna (Senna Oral Solution -) 8.8 mg GT HS [facility] Last Admin: 03/22/18 23:10 Dose: 8.8 mg Sertraline HCl (Zoloft -) 50 mg PO DAILY [facility] Last Admin: 03/23/18 11:15 Dose: 50 mg Laboratory Results - last 24 hr 03/22/18 03/22/18 03/23/18 17:40 23:04 06:16 WBC RBC Hgb Hct MCV MCH MCHC RDW Plt Count MPV Absolute Neuts (auto) Neutrophils % Lymphocytes % Monocytes % Eosinophils % Basophils % Nucleated RBC % Sodium Potassium Chloride Carbon Dioxide Anion Gap BUN Creatinine Creat Clearance w eGFR POC Glucometer 140 206 208 Random Glucose Calcium Phosphorus Magnesium Total Bilirubin AST ALT Alkaline Phosphatase Total Protein Albumin 03/23/18 03/23/18 03/23/18 06:35 06:35 11:19 WBC 9.5 RBC 2.55 L Hgb 7.5 L Hct 22.7 L MCV 89.2 MCH 29.3 MCHC 32.8 RDW 17.6 H Plt Count 152 MPV 10.3 Absolute Neuts (auto) 8.1 Neutrophils % 85.2 H Lymphocytes % 7.5 L Monocytes % 6.4 Eosinophils % 0.7 Basophils % 0.2 Nucleated RBC % 0 Sodium 139 Potassium 3.8 Chloride 103 Carbon Dioxide 27 Anion Gap 9 BUN 111 H* Creatinine 2.0 H Creat Clearance w eGFR 31.91 POC Glucometer 134 Random Glucose 164 H Calcium 7.8 L Phosphorus 3.3 Magnesium 2.1 Total Bilirubin 0.2 AST 95 H D ALT 87 H Alkaline Phosphatase 241 H D Total Protein 5.6 L Albumin 1.7 L Microbiology 03/21/18 21:00 Urine - Urine - Catheterized Urine Culture - Preliminary Pending Organism 03/21/18 16:30 Blood - Peripheral Venous Blood Culture - Preliminary NO GROWTH OBTAINED AFTER 24 HOURS, INCUBATION TO CONTINUE FOR 4 DAYS. 03/21/18 16:25 Blood - Peripheral Venous Blood Culture - Preliminary NO GROWTH OBTAINED AFTER 24 HOURS, INCUBATION TO CONTINUE FOR 4 DAYS. 02/17/18 03:00 Blood - Peripheral Venous Blood Culture - Final NO GROWTH AFTER 5 DAYS INCUBATION 02/17/18 03:00 Blood - Peripheral Venous Blood Culture - Final NO GROWTH AFTER 5 DAYS INCUBATION 02/17/18 10:40 Sputum - Endotrachea Suction/Ventilator Gram Stain - Final 02/17/18 10:40 Sputum - Endotrachea Suction/Ventilator Sputum Culture - Final Pseudomonas Aeruginosa Pseudo Fluorescens/[place] 02/16/18 23:40 Urine - Urine Clean Catch Urine Culture - Final NO GROWTH OBTAINED ASSESSMENT AND PLAN: 87 year old male with a significant past medical history of diastolic heart failure, NIDDM, CKD, and 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 Admitted on 02/17/18 from [facility] chronic respiratory failure and severe anemia with a hg of 5.5 and hypotension. -Lower complicated UTI with sepsis -Acute Upper GI bleed from Dileufoy lesion -Acute blood loss anemia s/p 7 units PRBCs -Acute on chronic vent dependent respiratory failure, likely aspiration PNA. -?Sigmoid volvolus vs severe constipation -KATERIN on CKD stage III (baseline cr around 2) -AFib with RVR s/p diltiazem drip on 02/25, now off -Hypernatremia, likely from lack of free water -Macular rash, ?Drug rash vs heat rash, resolved -Hypokalemia -Hypoglycemia -Thrombophilia, ?infection, stable -Transaminitis, ?cholestasis, similar episode in 01/2018. 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 Follow up urine cultures. Christopher cath changed. s/p total 11 units PRBC, H/h overall 7-8 range, no gross evidence of bleed or hemodynamic instability. s/p 15 days of zosyn. Bactrim d/tre. ID input noted. LFTs improved, trend for now. ISs, blood sugars noted. levemir 5 unis hs. replete lytes prn. Creatinine rising, still around baseline. Renal input. Continue tube feeds/free water flushes. christopher changed. Continue finasteride. DVTPPX with SCDs given recurrent anemia with GI bleed. Dispo to LTAC when bed available.
--- NOTE | 2018-03-23 14:25 | PN ---
Progress Note, Physician History of Present Illness: no new issues spiking fevers otherwise no significant changes on vent - Current Medication List Current Medications: Active Medications Acetaminophen (Tylenol -) 650 mg PO Q4H PRN PRN Reason: FEVER Last Admin: 03/21/18 16:52 Dose: 650 mg Amino Acids (Prosource No Carb Liquid Pkt) 30 ml PO DAILY@0800 [facility] Last Admin: 03/23/18 09:21 Dose: 30 ml Artificial Tears (Artificial Tears) 2 drop OU BID [facility] Last Admin: 03/23/18 11:16 Dose: 2 drop Atorvastatin Calcium (Lipitor -) 10 mg GT HS [facility] Last Admin: 03/22/18 23:21 Dose: 10 mg Collagenase (Santyl -) 1 applic TP DAILY [facility] Last Admin: 03/22/18 09:23 Dose: 1 applic Diltiazem HCl (Cardizem Injection -) 10 mg IVPUSH Q6H PRN PRN Reason: TACHYCARDIA Last Admin: 03/02/18 09:45 Dose: 10 mg Docusate Sodium (Colace Liquid -) 100 mg PO DAILY PRN PRN Reason: CONSTIPATION Ferrous Sulfate (Feosol) 300 mg GT DAILY [facility] Last Admin: 03/23/18 11:15 Dose: 300 mg Finasteride (Proscar -) 5 mg PO DAILY [facility] Last Admin: 03/23/18 11:15 Dose: 5 mg Ceftriaxone Sodium 2 gm/ (Dextrose) 100 mls @ 200 mls/hr IVPB DAILY [facility]; Protocol Last Admin: 03/23/18 11:21 Dose: 200 mls/hr Insulin Aspart (Novolog Vial Sliding Scale -) 1 vial SQ [facility]; Protocol Last Admin: 03/23/18 11:20 Dose: Not Given Insulin Detemir (Levemir Vial) 5 units SQ [facility] Last Admin: 03/22/18 23:07 Dose: 5 units Levothyroxine Sodium (Synthroid -) 37.5 mcg PEG DAILY@0700 [facility] Last Admin: 03/23/18 06:16 Dose: 37.5 mcg Metoprolol Tartrate (Lopressor -) 25 mg PO BID [facility] Last Admin: 03/23/18 11:15 Dose: 25 mg Non-Formulary Medication (Non-Formulary Med) 1 each GT DAILY [facility] Last Admin: 03/22/18 09:22 Dose: 1 each Nystatin (Nystop Powder -) 1 applic TP BID [facility] Last Admin: 03/23/18 11:29 Dose: 1 applic Oxybutynin Chloride (Ditropan -) 5 mg NGT BID [facility] Last Admin: 03/23/18 11:15 Dose: 5 mg Pantoprazole Sodium (Protonix Packets For Oral Suspension -) 40 mg NGT DAILY [facility] Last Admin: 03/23/18 11:17 Dose: 40 mg Senna (Senna Oral Solution -) 8.8 mg GT HS [facility] Last Admin: 03/22/18 23:10 Dose: 8.8 mg Sertraline HCl (Zoloft -) 50 mg PO DAILY [facility] Last Admin: 03/23/18 11:15 Dose: 50 mg - Objective Vital Signs: Vital Signs Temperature 98.3 F 03/23/18 05:00 Pulse Rate 64 03/23/18 05:00 Respiratory Rate 19 03/23/18 12:23 Blood Pressure 113/54 03/23/18 05:00 O2 Sat by Pulse Oximetry (%) 98 03/22/18 21:00 Constitutional: Yes: Other Cardiovascular: Yes: Pulse Irregular Respiratory: Yes: Mechanically Ventilated, Other (trach.minimal secretions) Gastrointestinal: Yes: Normal Bowel Sounds, Soft, Other (peg in place) Neurological: Yes: Other Labs: CBC, BMP 03/23/18 06:35 03/23/18 06:35 INR, PTT INR 1.13 (0.82-1.09) 02/16/18 22:40 Assessment/Plan Problem List - Problems (1) Anemia Code(s): D64.9 - ANEMIA, UNSPECIFIED (2) Chronic kidney disease, stage 3 Code(s): N18.3 - CHRONIC KIDNEY DISEASE, STAGE 3 (MODERATE) (3) Chronic respiratory failure Code(s): J96.10 - CHRONIC RESPIRATORY FAILURE, UNSP W HYPOXIA OR HYPERCAPNIA Qualifiers: Respiratory failure complication: unspecified whether with hypoxia or hypercapnia Qualified Code(s): J96.10 - Chronic respiratory failure, unspecified whether with hypoxia or hypercapnia (4) PAF (paroxysmal atrial fibrillation) Code(s): I48.0 - PAROXYSMAL ATRIAL FIBRILLATION (5) Renal failure Code(s): N19 - UNSPECIFIED KIDNEY FAILURE Qualifiers: Renal failure chronicity: unspecified chronicity Qualified Code(s): N19 - Unspecified kidney failure (6) Diabetes Code(s): E11.9 - TYPE 2 DIABETES MELLITUS WITHOUT COMPLICATIONS (7) TBI (traumatic brain injury) Code(s): S06.9X9A - UNSP INTRACRANIAL INJURY W LOC OF UNSP DURATION, INIT (8) Bifyk-iz-nkbqsac kidney injury Code(s): N17.9 - ACUTE KIDNEY FAILURE, UNSPECIFIED; N18.9 - CHRONIC KIDNEY DISEASE, UNSPECIFIED (9) Xjjbv-nf-oycoihn renal failure Code(s): N17.9 - ACUTE KIDNEY FAILURE, UNSPECIFIED; N18.9 - CHRONIC KIDNEY DISEASE, UNSPECIFIED (10) Hypotension Code(s): I95.9 - HYPOTENSION, UNSPECIFIED (11) Hypotension Code(s): I95.9 - HYPOTENSION, UNSPECIFIED 12 gi bleed 13 difuleoy lesion 14 rash plan continue current mgmt monitor for fevers nutrition rest as per the team continue abx
[2018-03-23] MEDS: ACETAMINOPHEN 325 MG TABLET (FP) PO PRN (16:52)
--- NOTE | 2018-03-23 17:58 | PN ---
Physical Exam: SUBJECTIVE: Patient seen and examined resting comfortably. No acute events as per nursing OBJECTIVE: Vital Signs Period Temp Pulse Resp BP Sys/Wills Pulse Ox Last 24 Hr 98.3 F-100.1 F 64-123 14-19 107-131/53-60 96-98 GENERAL: Resting comfortably, spontaneous eye opening LUNGS: Mechanical Breath sounds anteriorly, decreased effort HEART: Regular rate and rhythm, S1, S2 without murmur, rub or gallop ABDOMEN: Soft, normoactive bowel sounds, distended, PEG tube present without bleeding, drainage or erythema : Christopher catheter present draining Clear, yellow urine NEUROLOGICAL: Upper extremities contracted b/l Laboratory Results - last 24 hr 03/22/18 03/22/18 03/23/18 17:40 23:04 06:16 WBC RBC Hgb Hct MCV MCH MCHC RDW Plt Count MPV Absolute Neuts (auto) Neutrophils % Lymphocytes % Monocytes % Eosinophils % Basophils % Nucleated RBC % Sodium Potassium Chloride Carbon Dioxide Anion Gap BUN Creatinine Creat Clearance w eGFR POC Glucometer 140 206 208 Random Glucose Calcium Phosphorus Magnesium Total Bilirubin AST ALT Alkaline Phosphatase Total Protein Albumin 03/23/18 03/23/18 03/23/18 06:35 06:35 11:19 WBC 9.5 RBC 2.55 L Hgb 7.5 L Hct 22.7 L MCV 89.2 MCH 29.3 MCHC 32.8 RDW 17.6 H Plt Count 152 MPV 10.3 Absolute Neuts (auto) 8.1 Neutrophils % 85.2 H Lymphocytes % 7.5 L Monocytes % 6.4 Eosinophils % 0.7 Basophils % 0.2 Nucleated RBC % 0 Sodium 139 Potassium 3.8 Chloride 103 Carbon Dioxide 27 Anion Gap 9 BUN 111 H* Creatinine 2.0 H Creat Clearance w eGFR 31.91 POC Glucometer 134 Random Glucose 164 H Calcium 7.8 L Phosphorus 3.3 Magnesium 2.1 Total Bilirubin 0.2 AST 95 H D ALT 87 H Alkaline Phosphatase 241 H D Total Protein 5.6 L Albumin 1.7 L 03/23/18 17:18 WBC RBC Hgb Hct MCV MCH MCHC RDW Plt Count MPV Absolute Neuts (auto) Neutrophils % Lymphocytes % Monocytes % Eosinophils % Basophils % Nucleated RBC % Sodium Potassium Chloride Carbon Dioxide Anion Gap BUN Creatinine Creat Clearance w eGFR POC Glucometer 122 Random Glucose Calcium Phosphorus Magnesium Total Bilirubin AST ALT Alkaline Phosphatase Total Protein Albumin Microbiology 03/21/18 16:25 Blood - Peripheral Venous Blood Culture - Preliminary NO GROWTH OBTAINED AFTER 48 HOURS, INCUBATION TO CONTINUE FOR 3 DAYS. 03/21/18 16:30 Blood - Peripheral Venous Blood Culture - Preliminary NO GROWTH OBTAINED AFTER 48 HOURS, INCUBATION TO CONTINUE FOR 3 DAYS. 03/21/18 21:00 Urine - Urine - Catheterized Urine Culture - Preliminary Pending Organism 02/17/18 03:00 Blood - Peripheral Venous Blood Culture - Final NO GROWTH AFTER 5 DAYS INCUBATION 02/17/18 03:00 Blood - Peripheral Venous Blood Culture - Final NO GROWTH AFTER 5 DAYS INCUBATION 02/17/18 10:40 Sputum - Endotrachea Suction/Ventilator Gram Stain - Final 02/17/18 10:40 Sputum - Endotrachea Suction/Ventilator Sputum Culture - Final Pseudomonas Aeruginosa Pseudo Fluorescens/[place] 02/16/18 23:40 Urine - Urine Clean Catch Urine Culture - Final NO GROWTH OBTAINED Active Medications Acetaminophen (Tylenol -) 650 mg PO Q4H PRN PRN Reason: FEVER Last Admin: 03/23/18 16:52 Dose: 650 mg Amino Acids (Prosource No Carb Liquid Pkt) 30 ml PO DAILY@0800 [facility] Last Admin: 03/23/18 09:21 Dose: 30 ml Artificial Tears (Artificial Tears) 2 drop OU BID [facility] Last Admin: 03/23/18 11:16 Dose: 2 drop Atorvastatin Calcium (Lipitor -) 10 mg GT HS [facility] Last Admin: 03/22/18 23:21 Dose: 10 mg Collagenase (Santyl -) 1 applic TP DAILY [facility] Last Admin: 03/23/18 18:33 Dose: 1 applic Diltiazem HCl (Cardizem Injection -) 10 mg IVPUSH Q6H PRN PRN Reason: TACHYCARDIA Last Admin: 03/02/18 09:45 Dose: 10 mg Docusate Sodium (Colace Liquid -) 100 mg PO DAILY PRN PRN Reason: CONSTIPATION Ferrous Sulfate (Feosol) 300 mg GT DAILY [facility] Last Admin: 03/23/18 11:15 Dose: 300 mg Finasteride (Proscar -) 5 mg PO DAILY [facility] Last Admin: 03/23/18 11:15 Dose: 5 mg Ceftriaxone Sodium 2 gm/ (Dextrose) 100 mls @ 200 mls/hr IVPB DAILY [facility]; Protocol Last Admin: 03/23/18 11:21 Dose: 200 mls/hr Insulin Aspart (Novolog Vial Sliding Scale -) 1 vial SQ ACHS [facility]; Protocol Last Admin: 03/23/18 17:19 Dose: Not Given Insulin Detemir (Levemir Vial) 5 units SQ HS [facility] Last Admin: 03/22/18 23:07 Dose: 5 units Levothyroxine Sodium (Synthroid -) 37.5 mcg PEG DAILY@0700 [facility] Last Admin: 03/23/18 06:16 Dose: 37.5 mcg Metoprolol Tartrate (Lopressor -) 25 mg PO BID [facility] Last Admin: 03/23/18 11:15 Dose: 25 mg Non-Formulary Medication (Non-Formulary Med) 1 each GT DAILY [facility] Last Admin: 03/23/18 12:31 Dose: Not Given Nystatin (Nystop Powder -) 1 applic TP BID [facility] Last Admin: 03/23/18 11:29 Dose: 1 applic Oxybutynin Chloride (Ditropan -) 5 mg NGT BID [facility] Last Admin: 03/23/18 11:15 Dose: 5 mg Pantoprazole Sodium (Protonix Packets For Oral Suspension -) 40 mg NGT DAILY [facility] Last Admin: 03/23/18 11:17 Dose: 40 mg Senna (Senna Oral Solution -) 8.8 mg GT HS [facility] Last Admin: 03/22/18 23:10 Dose: 8.8 mg Sertraline HCl (Zoloft -) 50 mg PO DAILY [facility] Last Admin: 03/23/18 11:15 Dose: 50 mg ASSESSMENT/PLAN: 87 year old male with a PMHx significant for Diastolic heart failure, NIDDM, CKD , and 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 Admitted on 02/17/18 from [facility] for chronic respiratory failure and severe anemia with a hg of 5.5 and hypotension. 1. UTI - Temperature reached 103.5 - UA Positive for 3+ Leukocyte esterase, 400 WBC - Urine culture pending - Blood culture pending - CXR: No acute pathology. No significant change since prior study. - Christopher catheter changed - Ceftriaxone day 3 2. KATERIN - Likely due to infection - Given 1L NS @ 42cc - BUN and Cr rising, will contact Renal 3. Multifactorial anemia with UGIB - s/p EGD with Diluefoy lesion - s/p heat probe and epi - s/p 10 units PRBC this hospital stay - Hgb currently stable, 8.5 this morning, No signs of Active bleeding - 1 Unit Packed RBC Transfused on 03/11 - GI (Dr. Diaz) Consulted, appreciate recommendations, - Glucerna Tube feeds being tolerated well - Experiences recurrent hypoglycemia in the morning, discontinued levemir currently, will continue to monitor - Abdominal XRay: Functional PEG tube with tip in stomach. No sign of obstruction or leak - Family concerned for abdominal bloating, Serial abdomen exams, continue to monitor - Hematology consulted, Appreciate recommendations - Continue Ferrous Sulfate 300 mg GT DAILY [facility] 4. Acute on chronic respiratory failure - Due to aspiration PNA that has now improved, patient has returned to baseline vent settings - Not weanable due to poor mental status - Pulmonary consulted, Appreciate recommendations 5. Aspiration PNA - Completed course of Zosyn, Not on any other ABx - ID (Dr. Garza) consulted, Appreciate recommendations 6. Acute Transaminitis - AST/ALT Trending down - Has hx of similar episode on 02/01/18 that self-resolved - Will continue to monitor 7. Acute on CKD - Hypoperfusion - BUN remains elevated, likely due to GI bleed - Cr remains elevated - No longer on steroids - Will continue to monitor - Nephrology consulted, Appreciate recommendations 8. New onset Afib - rate controlled, Continue Metoprolol Tartrate 25 mg PO BID [facility] - Not a candidate for anticoagulation due to recent GI bleed - Cardiology consulted, Appreciate recommendations 9. Hypernatremia - resolved - will continue water flushes and monitor 10. Thrombophilia - stable off medications 11. DM - Improved - Continue Insulin Aspart SQ ACHS [facility] - Continue Insulin Detemir SQ HS [facility] 12. 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 Hypothyroid - Continue Synthroid 37.5 mcg PEG DAILY @ 0700 [facility] 14. Urinary incontinence - Chronic indwelling christopher. cont oxybutin/flomax - Flomax changed to Proscar - Continue Oxybutynin Chloride 5 mg BID [facility] 15. Depression - Continue on Sertraline HCl 50 mg PO DAILY [facility] 16. DVT ppx - SCD - Not a candidate for anticoagulation due to recent GI Bleed Dispo: LTAC when available. Ethics consulted Visit type - Emergency Visit Emergency Visit: Yes ED Registration Date: 02/17/18 Care time: The patient presented to the Emergency Department on the above date and was hospitalized for further evaluation of their emergent condition. - New Patient This patient is new to me today: No - Critical Care Critical Care patient: No
[2018-03-23] MEDS: COLLAGENASE CLOSTRIDIUM HIST. 30 GRAMS TUBE TP SCH (18:33)
[2018-03-23] MEDS: ATORVASTATIN CA 10 MG TABLET (FP) GT SCH (21:50)
[2018-03-23] MEDS: INSULIN (LEVEMIR) 100 UNITS/ML UNITS SQ SCH (21:54)
[2018-03-23] MEDS: SENNOSIDES 8.8 MG/5 ML BULK BOTTLE GT SCH (21:58)
[2018-03-24] MEDS: LEVOTHYROXINE NA 25 MCG TABLET (FP) PEG SCH (07:00)
[2018-03-24] MEDS: INSULIN SLIDING SCALE (NOVOLOG) 1 VIAL SQ SCH ×4 (07:03→22:34)
[2018-03-24 08:54] LABS: BASO % 0.1 % (0-2.0); EOS % 0.5 % (0-4.5); HEMATOCRIT 24.4 % (35.4-49); HEMOGLOBIN 8.1 GM/dL (11.7-16.9); LYMPH % 8.7 % (8-40); MCH 29.4 pg (25.7-33.7); MCHC 33.3 g/dl (32.0-35.9); MEAN CELL VOLUME 88.2 fl (80-96); MEAN PLT VOLUME 10.1 fl (7.5-11.1); MONO % 6.6 % (3.8-10.2); NEUT % 84.1 % (42.8-82.8); PLATELET COUNT 162 K/MM3 (134-434); RBC 2.76 M/mm3 (4.00-5.60); RDW 17.2 % (11.9-15.9); WHITE BLOOD COUNT 10.4 K/mm3 (4.0-10.0)
[2018-03-24 09:20] LABS: ALBUMIN 1.7 g/dl (3.4-5.0); ALK PHOS 293 U/L (45-117); ANION GAP 8 (8-16); BILIRUBIN,TOTAL 0.1 mg/dL (0.2-1.0); CALCIUM 8.1 mg/dL (8.5-10.1); CHLORIDE 101 mmol/L (98-107); CO2 28 mmol/L (21-32); CREATININE 1.9 mg/dL (0.7-1.3); GLUCOSE,RANDOM 108 mg/dL (74-106); PHOSPHOROUS 3.3 mg/dL (2.5-4.9); SGOT/AST 117 U/L (15-37); SGPT/ALT 112 U/L (12-78); SODIUM 137 mmol/L (136-145); TOT PROT 5.9 g/dl (6.4-8.2)
[2018-03-24] MEDS: AMINO ACIDS/PROTEIN HYDROLYS 30 ML LIQUID.PKT PO SCH (09:20)
[2018-03-24 09:33] LABS: BLOOD UREA NITROGEN 117 mg/dL (7-18)
[2018-03-24] MEDS ORDERED: PT OWN MED DRAWER 7, Y5N ONE (10:11)
[2018-03-24] MEDS: PANTOPRAZOLE SOD 40 MG SUSPENSION PACKET NGT SCH (10:20)
[2018-03-24] MEDS: FERROUS SO4 300 MG/5 ML ORAL SOLN UNIT DOSE CUPS GT SCH (10:20)
[2018-03-24] MEDS: SERTRALINE HCL 25 MG TABLET (FP) PO SCH (10:20)
[2018-03-24] MEDS: OXYBUTYNIN CHLORIDE 5 MG TABLET NGT SCH ×3 (10:20→23:50)
[2018-03-24] MEDS: FINASTERIDE 5 MG TABLET (FP) PO SCH (10:20)
[2018-03-24] MEDS: METOPROLOL TARTRATE 25 MG TABLET (FP) PO SCH ×3 (10:20→23:50)
[2018-03-24] MEDS: NON-FORMULARY MED GT SCH (10:21)
[2018-03-24] MEDS: NYSTATIN POWDER 100,000 UNITS/GM - 15 GM TOPICAL POWDER TP SCH ×2 (10:40→22:45)
[2018-03-24] MEDS: COLLAGENASE CLOSTRIDIUM HIST. 30 GRAMS TUBE TP SCH (10:41)
[2018-03-24] MEDS: CEFTRIAXONE 2 GM in DEXTROSE 5%-WATER 100 ML IVPB SCH (10:45)
[2018-03-24] MEDS: ARTIFICIAL TEARS (POLYVINYL ALCOHOL 1.4%) OPTH DROPS OU SCH ×2 (10:47→22:44)
--- NOTE | 2018-03-24 10:58 | PN ---
Progress Note, Physician History of Present Illness: no issues no fevers today - Current Medication List Current Medications: Active Medications Acetaminophen (Tylenol -) 650 mg PO Q4H PRN PRN Reason: FEVER Last Admin: 03/23/18 16:52 Dose: 650 mg Amino Acids (Prosource No Carb Liquid Pkt) 30 ml PO DAILY@0800 [facility] Last Admin: 03/24/18 09:20 Dose: 30 ml Artificial Tears (Artificial Tears) 2 drop OU BID [facility] Last Admin: 03/24/18 10:47 Dose: 2 drop Atorvastatin Calcium (Lipitor -) 10 mg GT HS [facility] Last Admin: 03/23/18 21:50 Dose: 10 mg Collagenase (Santyl -) 1 applic TP DAILY [facility] Last Admin: 03/24/18 10:41 Dose: 1 applic Diltiazem HCl (Cardizem Injection -) 10 mg IVPUSH Q6H PRN PRN Reason: TACHYCARDIA Last Admin: 03/02/18 09:45 Dose: 10 mg Docusate Sodium (Colace Liquid -) 100 mg PO DAILY PRN PRN Reason: CONSTIPATION Ferrous Sulfate (Feosol) 300 mg GT DAILY [facility] Last Admin: 03/24/18 10:20 Dose: 300 mg Finasteride (Proscar -) 5 mg PO DAILY [facility] Last Admin: 03/24/18 10:20 Dose: 5 mg Ceftriaxone Sodium 2 gm/ (Dextrose) 100 mls @ 200 mls/hr IVPB DAILY [facility]; Protocol Last Admin: 03/24/18 10:45 Dose: 200 mls/hr Insulin Aspart (Novolog Vial Sliding Scale -) 1 vial SQ [facility]; Protocol Last Admin: 03/24/18 07:03 Dose: Not Given Insulin Detemir (Levemir Vial) 5 units SQ [facility] Last Admin: 03/23/18 21:54 Dose: 5 units Levothyroxine Sodium (Synthroid -) 37.5 mcg PEG DAILY@0700 [facility] Last Admin: 03/24/18 07:00 Dose: 37.5 mcg Metoprolol Tartrate (Lopressor -) 25 mg PO BID [facility] Last Admin: 03/24/18 10:20 Dose: 25 mg Non-Formulary Medication (Non-Formulary Med) 1 each GT DAILY [facility] Last Admin: 03/24/18 10:21 Dose: 1 each Nystatin (Nystop Powder -) 1 applic TP BID [facility] Last Admin: 03/24/18 10:40 Dose: 1 applic Oxybutynin Chloride (Ditropan -) 5 mg NGT BID [facility] Last Admin: 03/24/18 10:20 Dose: 5 mg Pantoprazole Sodium (Protonix Packets For Oral Suspension -) 40 mg NGT DAILY [facility] Last Admin: 03/24/18 10:20 Dose: 40 mg Senna (Senna Oral Solution -) 8.8 mg GT HS [facility] Last Admin: 03/23/18 21:58 Dose: 8.8 mg Sertraline HCl (Zoloft -) 50 mg PO DAILY [facility] Last Admin: 03/24/18 10:20 Dose: 50 mg - Objective Vital Signs: Vital Signs Temperature 98.1 F 03/24/18 06:00 Pulse Rate 85 03/24/18 06:00 Respiratory Rate 15 03/24/18 09:28 Blood Pressure 114/50 03/24/18 06:00 O2 Sat by Pulse Oximetry (%) 99 03/23/18 21:00 Constitutional: Yes: No Distress Cardiovascular: Yes: Pulse Irregular Respiratory: Yes: Mechanically Ventilated, Other (minimal secretions) Gastrointestinal: Yes: Normal Bowel Sounds, Soft, Other (peg) Musculoskeletal: Yes: Other Labs: CBC, BMP 03/24/18 08:20 03/24/18 08:20 INR, PTT INR 1.13 (0.82-1.09) 02/16/18 22:40 Assessment/Plan Problem List - Problems (1) Anemia Code(s): D64.9 - ANEMIA, UNSPECIFIED (2) Chronic kidney disease, stage 3 Code(s): N18.3 - CHRONIC KIDNEY DISEASE, STAGE 3 (MODERATE) (3) Chronic respiratory failure Code(s): J96.10 - CHRONIC RESPIRATORY FAILURE, UNSP W HYPOXIA OR HYPERCAPNIA Qualifiers: Respiratory failure complication: unspecified whether with hypoxia or hypercapnia Qualified Code(s): J96.10 - Chronic respiratory failure, unspecified whether with hypoxia or hypercapnia (4) PAF (paroxysmal atrial fibrillation) Code(s): I48.0 - PAROXYSMAL ATRIAL FIBRILLATION (5) Renal failure Code(s): N19 - UNSPECIFIED KIDNEY FAILURE Qualifiers: Renal failure chronicity: unspecified chronicity Qualified Code(s): N19 - Unspecified kidney failure (6) Diabetes Code(s): E11.9 - TYPE 2 DIABETES MELLITUS WITHOUT COMPLICATIONS (7) TBI (traumatic brain injury) Code(s): S06.9X9A - UNSP INTRACRANIAL INJURY W LOC OF UNSP DURATION, INIT (8) Vjniv-vu-ecqpvwa kidney injury Code(s): N17.9 - ACUTE KIDNEY FAILURE, UNSPECIFIED; N18.9 - CHRONIC KIDNEY DISEASE, UNSPECIFIED (9) Amlst-ax-yduahxa renal failure Code(s): N17.9 - ACUTE KIDNEY FAILURE, UNSPECIFIED; N18.9 - CHRONIC KIDNEY DISEASE, UNSPECIFIED (10) Hypotension Code(s): I95.9 - HYPOTENSION, UNSPECIFIED (11) Hypotension Code(s): I95.9 - HYPOTENSION, UNSPECIFIED 12 gi bleed 13 difuleoy lesion 14 rash plan continue current mgmt monitor for fevers nutrition rest as per the team continue abx awaiting placement
[2018-03-24] MEDS ORDERED: INSULIN (NOVOLOG) ASPART 100 UNITS/ML 10ML VIAL ONE (11:45)
--- NOTE | 2018-03-24 11:57 | PN ---
Progress Note, Physician History of Present Illness: 87M w/ pmh of traumatic fall (s/p neck (C4,5, and 6)/back surgery, tracheotomy placement now ventilator dependent, and PEG tube placement), frequent pneumonia , emphysema, A-fib, CHF, DM, dementia, renal failure, nonverbal TBI, paraplegia , and legal blindness and deafness, who presents to the emergency department via EMS from [facility] with 3 days of hypotension. As per patients son , his blood pressure has been decreasing over the past few days. He reports that at baseline, his systolic is between 110-119 in the mornings and between 100-109 at night. Pt has failed 5 weaning trials in the last few days, and it was noticed that there was blood around the tracheostomy site when suctioning. Pt' son denies recent fevers, chills, chest pain, emesis, hematemesis, melena, and hematochezia in pt. - Current Medication List Current Medications: Active Medications Acetaminophen (Tylenol -) 650 mg PO Q4H PRN PRN Reason: FEVER Last Admin: 03/23/18 16:52 Dose: 650 mg Amino Acids (Prosource No Carb Liquid Pkt) 30 ml PO DAILY@0800 [facility] Last Admin: 03/24/18 09:20 Dose: 30 ml Artificial Tears (Artificial Tears) 2 drop OU BID [facility] Last Admin: 03/24/18 10:47 Dose: 2 drop Atorvastatin Calcium (Lipitor -) 10 mg GT HS [facility] Last Admin: 03/23/18 21:50 Dose: 10 mg Collagenase (Santyl -) 1 applic TP DAILY [facility] Last Admin: 03/24/18 10:41 Dose: 1 applic Diltiazem HCl (Cardizem Injection -) 10 mg IVPUSH Q6H PRN PRN Reason: TACHYCARDIA Last Admin: 03/02/18 09:45 Dose: 10 mg Docusate Sodium (Colace Liquid -) 100 mg PO DAILY PRN PRN Reason: CONSTIPATION Ferrous Sulfate (Feosol) 300 mg GT DAILY [facility] Last Admin: 03/24/18 10:20 Dose: 300 mg Finasteride (Proscar -) 5 mg PO DAILY [facility] Last Admin: 03/24/18 10:20 Dose: 5 mg Ceftriaxone Sodium 2 gm/ (Dextrose) 100 mls @ 200 mls/hr IVPB DAILY [facility]; Protocol Last Admin: 03/24/18 10:45 Dose: 200 mls/hr Insulin Aspart (Novolog Vial Sliding Scale -) 1 vial SQ ACHS [facility]; Protocol Last Admin: 03/24/18 07:03 Dose: Not Given Insulin Detemir (Levemir Vial) 5 units SQ HS [facility] Last Admin: 03/23/18 21:54 Dose: 5 units Levothyroxine Sodium (Synthroid -) 37.5 mcg PEG DAILY@0700 [facility] Last Admin: 03/24/18 07:00 Dose: 37.5 mcg Metoprolol Tartrate (Lopressor -) 25 mg PO BID [facility] Last Admin: 03/24/18 10:20 Dose: 25 mg Non-Formulary Medication (Non-Formulary Med) 1 each GT DAILY [facility] Last Admin: 03/24/18 10:21 Dose: 1 each Nystatin (Nystop Powder -) 1 applic TP BID [facility] Last Admin: 03/24/18 10:40 Dose: 1 applic Oxybutynin Chloride (Ditropan -) 5 mg NGT BID [facility] Last Admin: 03/24/18 10:20 Dose: 5 mg Pantoprazole Sodium (Protonix Packets For Oral Suspension -) 40 mg NGT DAILY [facility] Last Admin: 03/24/18 10:20 Dose: 40 mg Senna (Senna Oral Solution -) 8.8 mg GT HS [facility] Last Admin: 03/23/18 21:58 Dose: 8.8 mg Sertraline HCl (Zoloft -) 50 mg PO DAILY [facility] Last Admin: 03/24/18 10:20 Dose: 50 mg - Objective Vital Signs: Vital Signs Temperature 99.4 F 03/24/18 10:00 Pulse Rate 77 03/24/18 10:00 Respiratory Rate 22 03/24/18 11:17 Blood Pressure 132/70 03/24/18 10:00 O2 Sat by Pulse Oximetry (%) 99 03/23/18 21:00 Eyes: Yes: WNL, Conjunctiva Clear, EOM Intact HENT: Yes: WNL, Atraumatic, Normocephalic Neck: Yes: WNL, Supple, Trachea Midline Cardiovascular: Yes: WNL, Regular Rate and Rhythm Respiratory: Yes: Mechanically Ventilated Gastrointestinal: Yes: WNL, Normal Bowel Sounds Genitourinary: Yes: WNL Musculoskeletal: Yes: WNL Extremities: Yes: WNL Edema: No Integumentary: Yes: WNL ...Motor Strength: WNL Psychiatric: Yes: WNL Labs: CBC, BMP 03/24/18 08:20 03/24/18 08:20 INR, PTT INR 1.13 (0.82-1.09) 02/16/18 22:40
--- NOTE | 2018-03-24 12:17 | PN ---
Progress Note, Physician History of Present Illness: PULMONARY ALERT,ON VENT SUPPORT AC MODE,COMFORTABLE,-RESP DISTRESS. TMAX 102.3 CURRENTLY AFEBRILE - Current Medication List Current Medications: Active Medications Acetaminophen (Tylenol -) 650 mg PO Q4H PRN PRN Reason: FEVER Last Admin: 03/23/18 16:52 Dose: 650 mg Amino Acids (Prosource No Carb Liquid Pkt) 30 ml PO DAILY@0800 [facility] Last Admin: 03/24/18 09:20 Dose: 30 ml Artificial Tears (Artificial Tears) 2 drop OU BID [facility] Last Admin: 03/24/18 10:47 Dose: 2 drop Atorvastatin Calcium (Lipitor -) 10 mg GT HS [facility] Last Admin: 03/23/18 21:50 Dose: 10 mg Collagenase (Santyl -) 1 applic TP DAILY [facility] Last Admin: 03/24/18 10:41 Dose: 1 applic Diltiazem HCl (Cardizem Injection -) 10 mg IVPUSH Q6H PRN PRN Reason: TACHYCARDIA Last Admin: 03/02/18 09:45 Dose: 10 mg Docusate Sodium (Colace Liquid -) 100 mg PO DAILY PRN PRN Reason: CONSTIPATION Ferrous Sulfate (Feosol) 300 mg GT DAILY [facility] Last Admin: 03/24/18 10:20 Dose: 300 mg Finasteride (Proscar -) 5 mg PO DAILY [facility] Last Admin: 03/24/18 10:20 Dose: 5 mg Ceftriaxone Sodium 2 gm/ (Dextrose) 100 mls @ 200 mls/hr IVPB DAILY [facility]; Protocol Last Admin: 03/24/18 10:45 Dose: 200 mls/hr Insulin Aspart (Novolog Vial Sliding Scale -) 1 vial SQ [facility]; Protocol Last Admin: 03/24/18 07:03 Dose: Not Given Insulin Detemir (Levemir Vial) 5 units SQ [facility] Last Admin: 03/23/18 21:54 Dose: 5 units Levothyroxine Sodium (Synthroid -) 37.5 mcg PEG DAILY@0700 [facility] Last Admin: 03/24/18 07:00 Dose: 37.5 mcg Metoprolol Tartrate (Lopressor -) 25 mg PO BID [facility] Last Admin: 03/24/18 10:20 Dose: 25 mg Non-Formulary Medication (Non-Formulary Med) 1 each GT DAILY [facility] Last Admin: 03/24/18 10:21 Dose: 1 each Nystatin (Nystop Powder -) 1 applic TP BID [facility] Last Admin: 03/24/18 10:40 Dose: 1 applic Oxybutynin Chloride (Ditropan -) 5 mg NGT BID [facility] Last Admin: 03/24/18 10:20 Dose: 5 mg Pantoprazole Sodium (Protonix Packets For Oral Suspension -) 40 mg NGT DAILY [facility] Last Admin: 03/24/18 10:20 Dose: 40 mg Senna (Senna Oral Solution -) 8.8 mg GT HS [facility] Last Admin: 03/23/18 21:58 Dose: 8.8 mg Sertraline HCl (Zoloft -) 50 mg PO DAILY [facility] Last Admin: 03/24/18 10:20 Dose: 50 mg - Objective Vital Signs: Vital Signs Temperature 99.4 F 03/24/18 10:00 Pulse Rate 77 03/24/18 10:00 Respiratory Rate 22 03/24/18 11:17 Blood Pressure 132/70 03/24/18 10:00 O2 Sat by Pulse Oximetry (%) 99 03/23/18 21:00 Constitutional: Yes: Well Nourished, Calm Eyes: Yes: WNL HENT: Yes: WNL Neck: Yes: WNL Cardiovascular: Yes: Regular Rate and Rhythm, S1, S2 Respiratory: Yes: Rhonchi (FEW RHONCHI) Gastrointestinal: Yes: Soft Extremities: Yes: WNL Edema: No Labs: CBC, BMP 03/24/18 08:20 03/24/18 08:20 INR, PTT INR 1.13 (0.82-1.09) 02/16/18 22:40 Problem List - Problems (1) Anemia Code(s): D64.9 - ANEMIA, UNSPECIFIED (2) Chronic kidney disease, stage 3 Code(s): N18.3 - CHRONIC KIDNEY DISEASE, STAGE 3 (MODERATE) (3) Chronic respiratory failure Code(s): J96.10 - CHRONIC RESPIRATORY FAILURE, UNSP W HYPOXIA OR HYPERCAPNIA Qualifiers: Respiratory failure complication: unspecified whether with hypoxia or hypercapnia Qualified Code(s): J96.10 - Chronic respiratory failure, unspecified whether with hypoxia or hypercapnia (4) PAF (paroxysmal atrial fibrillation) Code(s): I48.0 - PAROXYSMAL ATRIAL FIBRILLATION (5) Renal failure Code(s): N19 - UNSPECIFIED KIDNEY FAILURE Qualifiers: Renal failure chronicity: unspecified chronicity Qualified Code(s): N19 - Unspecified kidney failure (6) Diabetes Code(s): E11.9 - TYPE 2 DIABETES MELLITUS WITHOUT COMPLICATIONS Qualifiers: Diabetes mellitus type: type 2 Diabetes mellitus intermediate card tender insulin use: unspecified fci insulin use status Diabetes mellitus complication status : with kidney complications Diabetes mellitus complication detail: with chronic kidney disease Chronic kidney disease stage: stage 3 (moderate) Qualified Code(s): E11.22 - Type 2 diabetes mellitus with diabetic chronic kidney disease; N18.3 - Chronic kidney disease, stage 3 (moderate) (7) TBI (traumatic brain injury) Code(s): S06.9X9A - UNSP INTRACRANIAL INJURY W LOC OF UNSP DURATION, INIT Qualifiers: Encounter type: sequela Loss of consciousness presence/duration: with LOC of unspecified duration Qualified Code(s): S06.9X9S - Unspecified intracranial injury with loss of consciousness of unspecified duration, sequela (8) Sijdr-hz-rsnflqt kidney injury Code(s): N17.9 - ACUTE KIDNEY FAILURE, UNSPECIFIED; N18.9 - CHRONIC KIDNEY DISEASE, UNSPECIFIED (9) Eywoc-vx-dbvltou renal failure Code(s): N17.9 - ACUTE KIDNEY FAILURE, UNSPECIFIED; N18.9 - CHRONIC KIDNEY DISEASE, UNSPECIFIED Qualifiers: Acute renal failure type: unspecified Chronic kidney disease stage: stage 3 (moderate) Qualified Code(s): N17.9 - Acute kidney failure, unspecified; N18.3 - Chronic kidney disease, stage 3 (moderate) (10) Hypotension Code(s): I95.9 - HYPOTENSION, UNSPECIFIED (11) Hypotension Code(s): I95.9 - HYPOTENSION, UNSPECIFIED Assessment/Plan ASSESSMENT AND PLAN: GI Bleed/Gastric Dieulafoy Lesion s/p EGD/epi/cautery Acute Blood Loss Anemia Chronic Respiratory Failure Pneumonia h/o Traumatic Brain Injury Functional Quadriplegia Acute on Chronic Renal Failure Atrial Fibrillation DM Dementia Fevers - monitor H/H - abx as per ID - protonix - rate control - holding anticoagulation - volume assist control - enteral feeds as tolerated - DVT/GI prophylaxis DR FORMAN
--- NOTE | 2018-03-24 14:31 | PN ---
Teaching Attending Note Name of Resident: Erica See ATTENDING PHYSICIAN STATEMENT I saw and evaluated the patient. I reviewed the resident's note and discussed the case with the resident. I agree with the resident's findings and plan as documented with exceptions below. SUBJECTIVE: Patient seen and examined. Non verbal, awake, unable to assess ROS. OBJECTIVE: Vital Signs Period Temp Pulse Resp BP Sys/Wills Pulse Ox Last 24 Hr 98.1 F-102.3 F 55-85 14-22 99-132/48-70 99-99 Intake & Output 03/21/18 03/22/18 03/23/18 03/24/18 23:59 23:59 23:59 23:59 Intake Total 0 2395 2054 1080 Output Total 700 1050 900 300 Balance -700 1345 1154 780 General: lying in bed, awake, no acute distress Chest: Decreased effort Abdomen:Soft, no grimacing on exam, some granulation/induration surrounding PEG site, positive bowel sounds Extremities: no edema Laboratory Results - last 24 hr 03/23/18 03/23/18 03/24/18 17:18 21:53 07:02 WBC RBC Hgb Hct MCV MCH MCHC RDW Plt Count MPV Absolute Neuts (auto) Neutrophils % Lymphocytes % Monocytes % Eosinophils % Basophils % Nucleated RBC % Sodium Potassium Chloride Carbon Dioxide Anion Gap BUN Creatinine Creat Clearance w eGFR POC Glucometer 122 209 127 Random Glucose Calcium Phosphorus Magnesium Total Bilirubin AST ALT Alkaline Phosphatase Total Protein Albumin 03/24/18 03/24/18 03/24/18 08:20 08:20 12:28 WBC 10.4 H RBC 2.76 L Hgb 8.1 L Hct 24.4 L MCV 88.2 MCH 29.4 MCHC 33.3 RDW 17.2 H Plt Count 162 MPV 10.1 Absolute Neuts (auto) 8.7 Neutrophils % 84.1 H Lymphocytes % 8.7 Monocytes % 6.6 Eosinophils % 0.5 Basophils % 0.1 Nucleated RBC % 0 Sodium 137 Potassium 4.0 Chloride 101 Carbon Dioxide 28 Anion Gap 8 BUN 117 H* Creatinine 1.9 H Creat Clearance w eGFR 33.86 POC Glucometer 166 Random Glucose 108 H D Calcium 8.1 L Phosphorus 3.3 Magnesium 2.0 Total Bilirubin 0.1 L AST 117 H D ALT 112 H D Alkaline Phosphatase 293 H D Total Protein 5.9 L Albumin 1.7 L ASSESSMENT AND PLAN: 87 year old male with a significant past medical history of diastolic heart failure, NIDDM, CKD, and 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 Admitted on 02/17/18 from [facility] chronic respiratory failure and severe anemia with a hg of 5.5 and hypotension. -Lower complicated UTI with sepsis -Acute Upper GI bleed from Dileufoy lesion -Acute blood loss anemia s/p 7 units PRBCs -Acute on chronic vent dependent respiratory failure, likely aspiration PNA. -?Sigmoid volvolus vs severe constipation -KATERIN on CKD stage III (baseline cr around 2) -AFib with RVR s/p diltiazem drip on 02/25, now off -Hypernatremia, likely from lack of free water -Macular rash, ?Drug rash vs heat rash, resolved -Hypokalemia -Hypoglycemia -Thrombophilia, ?infection, stable -Transaminitis, ?cholestasis, similar episode in 01/2018. -IDDM -Traumatic brain injury 08/2017 s/p trach/PEG -Paraplegia -Legally blind and deaf -Hypothyroidism -Urinary incontinence with chronic indwelling christopher -Depression -PEG dislodgement on s/p replacement Plan: Recurrent PEG dislodgement. GI consulted with Dr. Diaz, follow up for replacement. Ceftriaxone day 4, fevers and urine cultures noted. Discussed with Dr. Garza, plan for 5 days of ceftriaxone. Christopher catheter change. s/p total 11 units PRBC, H/h overall 7-8 range, no gross evidence of bleed or hemodynamic instability. s/p 15 days of zosyn. Bactrim d/tre. ID input noted. LFTs overall similar range in the past, likely cholestasis related. has CT A/P x 2 and abdominal US with similar fluctuation in the past. Continue to trend and outpatient monitoring. ISs, blood sugars noted. levemir 5 unis hs. replete lytes prn. Creatinine around baseline. Renal input prn. Continue finasteride. DVTPPX with SCDs given recurrent anemia with GI bleed. Dispo to LT[facility] when bed available.
--- NOTE | 2018-03-24 16:08 | PN ---
Progress Note (short form) - Note Progress Note: Called for "g-tube came out". On exam, the balloon appears to be deflated. Reinflation revealed no balloon defects. The G-tube was reinserted and the balloon was inflated with 7 cc and the external bumper readjusted. KUB-FLat/ gastrografin study to confirm proper position of the tip ordered. Instructed the pt's nurse not to use the g-tube until cleared by GI. Problem List - Problems (1) Acute renal failure Code(s): N17.9 - ACUTE KIDNEY FAILURE, UNSPECIFIED (2) Anemia Code(s): D64.9 - ANEMIA, UNSPECIFIED Qualifiers: Anemia type: due to chronic kidney disease Chronic kidney disease stage: unspecified stage Qualified Code(s): N18.9 - Chronic kidney disease, unspecified; D63.1 - Anemia in chronic kidney disease
--- NOTE | 2018-03-24 18:13 | PN ---
Physical Exam: SUBJECTIVE: Patient seen and examined resting comfortably. OBJECTIVE: Vital Signs Period Temp Pulse Resp BP Sys/Wills Pulse Ox Last 24 Hr 98.1 F-99.6 F 55-85 14-22 99-134/48-70 99-99 GENERAL: Resting comfortably, spontaneous eye opening LUNGS: Mechanical Breath sounds anteriorly, decreased effort HEART: Regular rate and rhythm, S1, S2 without murmur, rub or gallop ABDOMEN: Soft, normoactive bowel sounds, distended, PEG tube present with surrounding granulation tissue : Christopher catheter present draining Clear, yellow urine NEUROLOGICAL: Upper extremities contracted b/l Laboratory Results - last 24 hr 03/23/18 03/24/18 03/24/18 21:53 07:02 08:20 WBC 10.4 H RBC 2.76 L Hgb 8.1 L Hct 24.4 L MCV 88.2 MCH 29.4 MCHC 33.3 RDW 17.2 H Plt Count 162 MPV 10.1 Absolute Neuts (auto) 8.7 Neutrophils % 84.1 H Lymphocytes % 8.7 Monocytes % 6.6 Eosinophils % 0.5 Basophils % 0.1 Nucleated RBC % 0 Sodium Potassium Chloride Carbon Dioxide Anion Gap BUN Creatinine Creat Clearance w eGFR POC Glucometer 209 127 Random Glucose Calcium Phosphorus Magnesium Total Bilirubin AST ALT Alkaline Phosphatase Total Protein Albumin 03/24/18 03/24/18 08:20 12:28 WBC RBC Hgb Hct MCV MCH MCHC RDW Plt Count MPV Absolute Neuts (auto) Neutrophils % Lymphocytes % Monocytes % Eosinophils % Basophils % Nucleated RBC % Sodium 137 Potassium 4.0 Chloride 101 Carbon Dioxide 28 Anion Gap 8 BUN 117 H* Creatinine 1.9 H Creat Clearance w eGFR 33.86 POC Glucometer 166 Random Glucose 108 H D Calcium 8.1 L Phosphorus 3.3 Magnesium 2.0 Total Bilirubin 0.1 L AST 117 H D ALT 112 H D Alkaline Phosphatase 293 H D Total Protein 5.9 L Albumin 1.7 L Microbiology 03/21/18 16:30 Blood - Peripheral Venous Blood Culture - Preliminary NO GROWTH OBTAINED AFTER 72 HOURS, INCUBATION TO CONTINUE FOR 2 DAYS. 03/21/18 16:25 Blood - Peripheral Venous Blood Culture - Preliminary NO GROWTH OBTAINED AFTER 72 HOURS, INCUBATION TO CONTINUE FOR 2 DAYS. 03/21/18 21:00 Urine - Urine - Catheterized Urine Culture - Final Yeast Like Organism 02/17/18 03:00 Blood - Peripheral Venous Blood Culture - Final NO GROWTH AFTER 5 DAYS INCUBATION 02/17/18 03:00 Blood - Peripheral Venous Blood Culture - Final NO GROWTH AFTER 5 DAYS INCUBATION 02/17/18 10:40 Sputum - Endotrachea Suction/Ventilator Gram Stain - Final 02/17/18 10:40 Sputum - Endotrachea Suction/Ventilator Sputum Culture - Final Pseudomonas Aeruginosa Pseudo Fluorescens/[place] 02/16/18 23:40 Urine - Urine Clean Catch Urine Culture - Final NO GROWTH OBTAINED Active Medications Acetaminophen (Tylenol -) 650 mg PO Q4H PRN PRN Reason: FEVER Last Admin: 03/23/18 16:52 Dose: 650 mg Amino Acids (Prosource No Carb Liquid Pkt) 30 ml PO DAILY@0800 [facility] Last Admin: 03/24/18 09:20 Dose: 30 ml Artificial Tears (Artificial Tears) 2 drop OU BID [facility] Last Admin: 03/24/18 10:47 Dose: 2 drop Atorvastatin Calcium (Lipitor -) 10 mg GT HS [facility] Last Admin: 03/23/18 21:50 Dose: 10 mg Collagenase (Santyl -) 1 applic TP DAILY [facility] Last Admin: 03/24/18 10:41 Dose: 1 applic Diltiazem HCl (Cardizem Injection -) 10 mg IVPUSH Q6H PRN PRN Reason: TACHYCARDIA Last Admin: 03/02/18 09:45 Dose: 10 mg Docusate Sodium (Colace Liquid -) 100 mg PO DAILY PRN PRN Reason: CONSTIPATION Ferrous Sulfate (Feosol) 300 mg GT DAILY [facility] Last Admin: 03/24/18 10:20 Dose: 300 mg Finasteride (Proscar -) 5 mg PO DAILY [facility] Last Admin: 03/24/18 10:20 Dose: 5 mg Ceftriaxone Sodium 2 gm/ (Dextrose) 100 mls @ 200 mls/hr IVPB DAILY [facility]; Protocol Last Admin: 03/24/18 10:45 Dose: 200 mls/hr Sodium Chloride (Normal Saline -) 1,000 mls @ 42 mls/hr IV ASDIR [facility] Last Admin: 03/24/18 20:25 Dose: 42 mls/hr Insulin Aspart (Novolog Vial Sliding Scale -) 1 vial SQ ACHS [facility]; Protocol Last Admin: 03/24/18 19:19 Dose: Not Given Levothyroxine Sodium (Synthroid -) 37.5 mcg PEG DAILY@0700 [facility] Last Admin: 03/24/18 07:00 Dose: 37.5 mcg Metoprolol Tartrate (Lopressor -) 25 mg PO BID [facility] Last Admin: 03/24/18 10:20 Dose: 25 mg Non-Formulary Medication (Non-Formulary Med) 1 each GT DAILY [facility] Last Admin: 03/24/18 10:21 Dose: 1 each Nystatin (Nystop Powder -) 1 applic TP BID [facility] Last Admin: 03/24/18 10:40 Dose: 1 applic Oxybutynin Chloride (Ditropan -) 5 mg NGT BID [facility] Last Admin: 03/24/18 10:20 Dose: 5 mg Pantoprazole Sodium (Protonix Packets For Oral Suspension -) 40 mg NGT DAILY [facility] Last Admin: 03/24/18 10:20 Dose: 40 mg Senna (Senna Oral Solution -) 8.8 mg GT HS [facility] Last Admin: 03/23/18 21:58 Dose: 8.8 mg Sertraline HCl (Zoloft -) 50 mg PO DAILY [facility] Last Admin: 03/24/18 10:20 Dose: 50 mg ASSESSMENT/PLAN: 87 year old male with a PMHx significant for Diastolic heart failure, NIDDM, CKD , and 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 Admitted on 02/17/18 from [facility] for chronic respiratory failure and severe anemia with a hg of 5.5 and hypotension. 1. UTI - Temperature reached 103.5 - UA Positive for 3+ Leukocyte esterase, 400 WBC - Urine culture pending - Blood culture pending - CXR: No acute pathology. No significant change since prior study. - Christopher catheter changed - Ceftriaxone day 4 - ID Consulted (Dr. Garza), plan for 5 days of ceftriaxone 2. KATERIN - Likely due to infection - Given 1L NS @ 42cc - BUN and Cr rising, will contact Renal 3. Multifactorial anemia with UGIB - PEG tube dislodgement, GI (Dr. Diaz) Consulted, appreciate recommendations - s/p EGD with Diluefoy lesion - s/p heat probe and epi - s/p 10 units PRBC this hospital stay - Hgb currently stable, 8.5 this morning, No signs of Active bleeding - 1 Unit Packed RBC Transfused on 7/5 - Glucerna Tube feeds being tolerated well - Experiences recurrent hypoglycemia in the morning, discontinued levemir currently, will continue to monitor - Abdominal XRay: Functional PEG tube with tip in stomach. No sign of obstruction or leak - Family concerned for abdominal bloating, Serial abdomen exams, continue to monitor - Hematology consulted, Appreciate recommendations - Continue Ferrous Sulfate 300 mg GT DAILY [facility] 4. Acute on chronic respiratory failure - Due to aspiration PNA that has now improved, patient has returned to baseline vent settings - Not weanable due to poor mental status - Pulmonary consulted, Appreciate recommendations 5. Aspiration PNA - Completed course of Zosyn, Not on any other ABx - ID (Dr. Garza) consulted, Appreciate recommendations 6. Acute Transaminitis - AST/ALT Trending down - Has hx of similar episode on 02/01/18 that self-resolved - Will continue to monitor 7. Acute on CKD - Hypoperfusion - BUN remains elevated, likely due to GI bleed - Cr remains elevated - No longer on steroids - Will continue to monitor - Nephrology consulted, Appreciate recommendations 8. New onset Afib - rate controlled, Continue Metoprolol Tartrate 25 mg PO BID [facility] - Not a candidate for anticoagulation due to recent GI bleed - Cardiology consulted, Appreciate recommendations 9. Hypernatremia - resolved - will continue water flushes and monitor 10. Thrombophilia - stable off medications 11. DM - Improved - Continue Insulin Aspart SQ ACHS [facility] - Continue Insulin Detemir SQ HS [facility] 12. 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 Hypothyroid - Continue Synthroid 37.5 mcg PEG DAILY @ 0700 [facility] 14. Urinary incontinence - Chronic indwelling christopher. cont oxybutin/flomax - Flomax changed to Proscar - Continue Oxybutynin Chloride 5 mg BID [facility] 15. Depression - Continue on Sertraline HCl 50 mg PO DAILY [facility] 16. DVT ppx - SCD - Not a candidate for anticoagulation due to recent GI Bleed Dispo: LTAC when available. Ethics consulted Visit type - Emergency Visit Emergency Visit: No - New Patient This patient is new to me today: No - Critical Care Critical Care patient: No
[2018-03-24] MEDS ORDERED: SODIUM CHLORIDE 1,000 ML IV SCH (20:00)
[2018-03-24] MEDS: ATORVASTATIN CA 10 MG TABLET (FP) GT SCH ×2 (22:43→23:50)
[2018-03-24] MEDS: SENNOSIDES 8.8 MG/5 ML BULK BOTTLE GT SCH ×2 (22:44→23:50)
[2018-03-25] MEDS: INSULIN SLIDING SCALE (NOVOLOG) 1 VIAL SQ SCH ×2 (06:07→11:49)
[2018-03-25] MEDS: LEVOTHYROXINE NA 25 MCG TABLET (FP) PEG SCH (06:07)
[2018-03-25 07:58] LABS: BASO % 0.2 % (0-2.0); EOS % 0.4 % (0-4.5); HEMATOCRIT 23.2 % (35.4-49); HEMOGLOBIN 7.9 GM/dL (11.7-16.9); LYMPH % 8.3 % (8-40); MCH 29.9 pg (25.7-33.7); MCHC 34.2 g/dl (32.0-35.9); MEAN CELL VOLUME 87.4 fl (80-96); MEAN PLT VOLUME 10.1 fl (7.5-11.1); MONO % 7.1 % (3.8-10.2); PLATELET COUNT 174 K/MM3 (134-434); RBC 2.65 M/mm3 (4.00-5.60); RDW 16.9 % (11.9-15.9); WHITE BLOOD COUNT 10.5 K/mm3 (4.0-10.0)
[2018-03-25 08:24] LABS: ALBUMIN 1.6 g/dl (3.4-5.0); ANION GAP 10 (8-16); CALCIUM 8.1 mg/dL (8.5-10.1); CHLORIDE 103 mmol/L (98-107); CO2 26 mmol/L (21-32); GLUCOSE,RANDOM 168 mg/dL (74-106); MAGNESIUM 1.9 mg/dL (1.8-2.4); POTASSIUM 3.8 mmol/L (3.5-5.1); SODIUM 139 mmol/L (136-145)
[2018-03-25 08:29] LABS: ALK PHOS 220 U/L (45-117); BILIRUBIN,TOTAL 0.2 mg/dL (0.2-1.0); CREATININE 1.9 mg/dL (0.7-1.3); PHOSPHOROUS 3.8 mg/dL (2.5-4.9); SGOT/AST 59 U/L (15-37); SGPT/ALT 79 U/L (12-78); TOT PROT 5.6 g/dl (6.4-8.2)
[2018-03-25 08:40] LABS: BLOOD UREA NITROGEN 118 mg/dL (7-18)
[2018-03-25] MEDS ORDERED: DEXTROSE 5%-WATER 100 ML IVPB ONE (09:12)
[2018-03-25] MEDS ORDERED: PT OWN MED DRAWER 7, Y5N ONE (09:12)
[2018-03-25] MEDS: FERROUS SO4 300 MG/5 ML ORAL SOLN UNIT DOSE CUPS GT SCH (09:30)
[2018-03-25] MEDS: OXYBUTYNIN CHLORIDE 5 MG TABLET NGT SCH (09:30)
[2018-03-25] MEDS: CEFTRIAXONE 2 GM in DEXTROSE 5%-WATER 100 ML IVPB SCH (09:30)
[2018-03-25] MEDS: METOPROLOL TARTRATE 25 MG TABLET (FP) PO SCH (09:30)
[2018-03-25] MEDS: PANTOPRAZOLE SOD 40 MG SUSPENSION PACKET NGT SCH (09:30)
[2018-03-25] MEDS: SERTRALINE HCL 25 MG TABLET (FP) PO SCH (09:30)
[2018-03-25] MEDS: FINASTERIDE 5 MG TABLET (FP) PO SCH (09:30)
[2018-03-25] MEDS: NYSTATIN POWDER 100,000 UNITS/GM - 15 GM TOPICAL POWDER TP SCH (09:32)
[2018-03-25] MEDS: AMINO ACIDS/PROTEIN HYDROLYS 30 ML LIQUID.PKT PO SCH (09:32)
[2018-03-25] MEDS: NON-FORMULARY MED GT SCH (09:33)
[2018-03-25] MEDS: ARTIFICIAL TEARS (POLYVINYL ALCOHOL 1.4%) OPTH DROPS OU SCH (11:07)
--- NOTE | 2018-03-25 11:31 | PN ---
Progress Note (short form) - Note Progress Note: PULMONARY Vented on volume assist control. No fevers recorded. Vital Signs Period Temp Pulse Resp BP Sys/Wills Pulse Ox Last 24 Hr 97.4 F-99.0 F 67-85 14-19 111-134/53-63 99-100 Gen: vented Heart: RRR Lung: decreased breath sounds at the bases Abd: soft, nontender Ext: no edema CBC, BMP 03/25/18 06:20 03/25/18 06:20 Active Medications Acetaminophen (Tylenol -) 650 mg PO Q4H PRN PRN Reason: FEVER Last Admin: 03/23/18 16:52 Dose: 650 mg Amino Acids (Prosource No Carb Liquid Pkt) 30 ml PO DAILY@0800 [facility] Last Admin: 03/25/18 09:32 Dose: 30 ml Artificial Tears (Artificial Tears) 2 drop OU BID [facility] Last Admin: 03/25/18 11:07 Dose: 2 drop Atorvastatin Calcium (Lipitor -) 10 mg GT HS [facility] Last Admin: 03/24/18 23:50 Dose: Not Given Collagenase (Santyl -) 1 applic TP DAILY [facility] Last Admin: 03/24/18 10:41 Dose: 1 applic Diltiazem HCl (Cardizem Injection -) 10 mg IVPUSH Q6H PRN PRN Reason: TACHYCARDIA Last Admin: 03/02/18 09:45 Dose: 10 mg Docusate Sodium (Colace Liquid -) 100 mg PO DAILY PRN PRN Reason: CONSTIPATION Ferrous Sulfate (Feosol) 300 mg GT DAILY [facility] Last Admin: 03/25/18 09:30 Dose: 300 mg Finasteride (Proscar -) 5 mg PO DAILY [facility] Last Admin: 03/25/18 09:30 Dose: 5 mg Ceftriaxone Sodium 2 gm/ (Dextrose) 100 mls @ 200 mls/hr IVPB DAILY [facility]; Protocol Last Admin: 03/25/18 09:30 Dose: 200 mls/hr Sodium Chloride (Normal Saline -) 1,000 mls @ 42 mls/hr IV ASDIR [facility] Last Admin: 03/24/18 20:25 Dose: 42 mls/hr Insulin Aspart (Novolog Vial Sliding Scale -) 1 vial SQ ACHS [facility]; Protocol Last Admin: 03/25/18 06:07 Dose: Not Given Levothyroxine Sodium (Synthroid -) 37.5 mcg PEG DAILY@0700 [facility] Last Admin: 03/25/18 06:07 Dose: Not Given Metoprolol Tartrate (Lopressor -) 25 mg PO BID [facility] Last Admin: 03/25/18 09:30 Dose: 25 mg Non-Formulary Medication (Non-Formulary Med) 1 each GT DAILY [facility] Last Admin: 03/25/18 09:33 Dose: 1 each Nystatin (Nystop Powder -) 1 applic TP BID [facility] Last Admin: 03/25/18 09:32 Dose: 1 applic Oxybutynin Chloride (Ditropan -) 5 mg NGT BID [facility] Last Admin: 03/25/18 09:30 Dose: 5 mg Pantoprazole Sodium (Protonix Packets For Oral Suspension -) 40 mg NGT DAILY [facility] Last Admin: 03/25/18 09:30 Dose: 40 mg Senna (Senna Oral Solution -) 8.8 mg GT HS [facility] Last Admin: 03/24/18 23:50 Dose: Not Given Sertraline HCl (Zoloft -) 50 mg PO DAILY [facility] Last Admin: 03/25/18 09:30 Dose: 50 mg A/P UTI GI Bleed/Gastric Dieulafoy Lesion s/p EGD/epi/cautery Acute Blood Loss Anemia Chronic Respiratory Failure Pneumonia h/o Traumatic Brain Injury Functional Quadriplegia Acute on Chronic Renal Failure Atrial Fibrillation DM Dementia - continue antibiotics - monitor H/H - protonix - rate control - holding anticoagulation - continue volume assist control - poor candidate for weaning due to poor mental status - enteral feeds as tolerated - DVT/GI prophylaxis
[2018-03-25] MEDS: COLLAGENASE CLOSTRIDIUM HIST. 30 GRAMS TUBE TP SCH (11:50)
--- NOTE | 2018-03-25 13:12 | PN ---
Teaching Attending Note Name of Resident: Erica See ATTENDING PHYSICIAN STATEMENT I saw and evaluated the patient. I reviewed the resident's note and discussed the case with the resident. I agree with the resident's findings and plan as documented with exceptions below. SUBJECTIVE: Patient seen and examined. awake, non verbal. Unable to assess for ROS. OBJECTIVE: Vital Signs Period Temp Pulse Resp BP Sys/Wills Pulse Ox Last 24 Hr 97.4 F-99.0 F 67-85 14-19 111-134/53-63 99-100 Intake & Output 03/22/18 03/23/18 03/24/18 03/25/18 23:59 23:59 23:59 23:59 Intake Total 2395 2054 1080 Output Total 1050 900 800 500 Balance 1345 1154 280 -500 General: lying in bed, opens eyes to voice Chest: decreased effort, no rales or wheezing Abdomen:Soft, ND, no grimacing on exam, PEG in place, positive bowel sounds Extremities: no edema Laboratory Results - last 24 hr 03/24/18 03/24/18 03/25/18 18:04 22:33 06:06 WBC RBC Hgb Hct MCV MCH MCHC RDW Plt Count MPV Absolute Neuts (auto) Neutrophils % Lymphocytes % Monocytes % Eosinophils % Basophils % Nucleated RBC % Sodium Potassium Chloride Carbon Dioxide Anion Gap BUN Creatinine Creat Clearance w eGFR POC Glucometer 175 185 185 Random Glucose Calcium Phosphorus Magnesium Total Bilirubin AST ALT Alkaline Phosphatase Total Protein Albumin 03/25/18 03/25/18 03/25/18 06:20 06:20 11:47 WBC 10.5 H RBC 2.65 L Hgb 7.9 L Hct 23.2 L MCV 87.4 MCH 29.9 MCHC 34.2 RDW 16.9 H Plt Count 174 MPV 10.1 Absolute Neuts (auto) 8.9 Neutrophils % 84.0 H Lymphocytes % 8.3 Monocytes % 7.1 Eosinophils % 0.4 Basophils % 0.2 Nucleated RBC % 0 Sodium 139 Potassium 3.8 Chloride 103 Carbon Dioxide 26 Anion Gap 10 BUN 118 H* Creatinine 1.9 H Creat Clearance w eGFR 33.86 POC Glucometer 216 Random Glucose 168 H D Calcium 8.1 L Phosphorus 3.8 Magnesium 1.9 Total Bilirubin 0.2 AST 59 H D ALT 79 H D Alkaline Phosphatase 220 H D Total Protein 5.6 L Albumin 1.6 L Upper GI series results noted ASSESSMENT AND PLAN: 87 year old male with a significant past medical history of diastolic heart failure, NIDDM, CKD, and 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 Admitted on 02/17/18 from [facility] chronic respiratory failure and severe anemia with a hg of 5.5 and hypotension. -Lower complicated UTI with sepsis -Acute Upper GI bleed from Dileufoy lesion -Acute blood loss anemia s/p 7 units PRBCs -Acute on chronic vent dependent respiratory failure, likely aspiration PNA. -?Sigmoid volvolus vs severe constipation -KATERIN on CKD stage III (baseline cr around 2) -AFib with RVR s/p diltiazem drip on 02/25, now off -Hypernatremia, likely from lack of free water -Macular rash, ?Drug rash vs heat rash, resolved -Hypokalemia -Hypoglycemia -Thrombophilia, ?infection, stable -Transaminitis, ?cholestasis, similar episode in 01/2018. -IDDM -Traumatic brain injury 08/2017 s/p trach/PEG -Paraplegia -Legally blind and deaf -Hypothyroidism -Urinary incontinence with chronic indwelling christopher -Depression -PEG dislodgement on s/p replacement Plan: PEG replaced, Upper GI series with normal positioning. Tube feeds resumed. S/p 5 days of ceftriaxone per ID. afebrile, christopher changed. h/h stable. LFts improved. REnal function overall stable. d/c to SNF today with outpatient monitoring. Plan discussed with RNMARY.
[2018-03-25 13:15] VITALS: BP 119/59; PULSE 66; TEMP 98.2
--- NOTE | 2018-03-25 17:09 | PN ---
Progress Note, Physician History of Present Illness: patient stable has moise afebrile now patient otherwise no issues - Objective Vital Signs: Vital Signs Temperature 98.2 F 03/25/18 13:14 Pulse Rate 66 03/25/18 13:14 Respiratory Rate 16 03/25/18 14:01 Blood Pressure 119/59 03/25/18 13:14 O2 Sat by Pulse Oximetry (%) 100 03/25/18 10:00 Constitutional: Yes: No Distress Cardiovascular: Yes: Pulse Irregular Respiratory: Yes: Mechanically Ventilated, Poor Air Entry Gastrointestinal: Yes: Normal Bowel Sounds, Soft, Other (peg in place) Musculoskeletal: Yes: WNL Extremities: Yes: WNL Labs: CBC, BMP 03/25/18 06:20 03/25/18 06:20 INR, PTT INR 1.13 (0.82-1.09) 02/16/18 22:40 Assessment/Plan Problem List - Problems (1) Anemia Code(s): D64.9 - ANEMIA, UNSPECIFIED (2) Chronic kidney disease, stage 3 Code(s): N18.3 - CHRONIC KIDNEY DISEASE, STAGE 3 (MODERATE) (3) Chronic respiratory failure Code(s): J96.10 - CHRONIC RESPIRATORY FAILURE, UNSP W HYPOXIA OR HYPERCAPNIA Qualifiers: Respiratory failure complication: unspecified whether with hypoxia or hypercapnia Qualified Code(s): J96.10 - Chronic respiratory failure, unspecified whether with hypoxia or hypercapnia (4) PAF (paroxysmal atrial fibrillation) Code(s): I48.0 - PAROXYSMAL ATRIAL FIBRILLATION (5) Renal failure Code(s): N19 - UNSPECIFIED KIDNEY FAILURE Qualifiers: Renal failure chronicity: unspecified chronicity Qualified Code(s): N19 - Unspecified kidney failure (6) Diabetes Code(s): E11.9 - TYPE 2 DIABETES MELLITUS WITHOUT COMPLICATIONS (7) TBI (traumatic brain injury) Code(s): S06.9X9A - UNSP INTRACRANIAL INJURY W LOC OF UNSP DURATION, INIT (8) [id number] kidney injury Code(s): N17.9 - ACUTE KIDNEY FAILURE, UNSPECIFIED; N18.9 - CHRONIC KIDNEY DISEASE, UNSPECIFIED (9) [id number] renal failure Code(s): N17.9 - ACUTE KIDNEY FAILURE, UNSPECIFIED; N18.9 - CHRONIC KIDNEY DISEASE, UNSPECIFIED (10) Hypotension Code(s): I95.9 - HYPOTENSION, UNSPECIFIED (11) Hypotension Code(s): I95.9 - HYPOTENSION, UNSPECIFIED 12 gi bleed 13 difuleoy lesion 14 rash plan continue current mgmt monitor for fevers nutrition rest as per the team
--- NOTE | 2018-03-25 19:59 | DS ---
Physical Exam: SUBJECTIVE: Patient seen and examined resting comfortably. OBJECTIVE: Vital Signs Period Temp Pulse Resp BP Sys/Wills Pulse Ox Last 24 Hr 97.4 F-99.0 F 66-85 14-19 111-124/53-61 99-100 PHYSICAL EXAM GENERAL: Resting comfortably, spontaneous eye opening LUNGS: Mechanical Breath sounds anteriorly, decreased effort HEART: Regular rate and rhythm, S1, S2 without murmur, rub or gallop ABDOMEN: Soft, normoactive bowel sounds, distended, PEG tube present with surrounding granulation tissue : Christopher catheter present draining Clear, yellow urine NEUROLOGICAL: Upper extremities contracted b/l LABS Laboratory Results - last 24 hr 03/24/18 03/25/18 03/25/18 22:33 06:06 06:20 WBC 10.5 H RBC 2.65 L Hgb 7.9 L Hct 23.2 L MCV 87.4 MCH 29.9 MCHC 34.2 RDW 16.9 H Plt Count 174 MPV 10.1 Absolute Neuts (auto) 8.9 Neutrophils % 84.0 H Lymphocytes % 8.3 Monocytes % 7.1 Eosinophils % 0.4 Basophils % 0.2 Nucleated RBC % 0 Sodium Potassium Chloride Carbon Dioxide Anion Gap BUN Creatinine Creat Clearance w eGFR POC Glucometer 185 185 Random Glucose Calcium Phosphorus Magnesium Total Bilirubin AST ALT Alkaline Phosphatase Total Protein Albumin 03/25/18 03/25/18 06:20 11:47 WBC RBC Hgb Hct MCV MCH MCHC RDW Plt Count MPV Absolute Neuts (auto) Neutrophils % Lymphocytes % Monocytes % Eosinophils % Basophils % Nucleated RBC % Sodium 139 Potassium 3.8 Chloride 103 Carbon Dioxide 26 Anion Gap 10 BUN 118 H* Creatinine 1.9 H Creat Clearance w eGFR 33.86 POC Glucometer 216 Random Glucose 168 H D Calcium 8.1 L Phosphorus 3.8 Magnesium 1.9 Total Bilirubin 0.2 AST 59 H D ALT 79 H D Alkaline Phosphatase 220 H D Total Protein 5.6 L Albumin 1.6 L Microbiology 03/21/18 16:30 Blood - Peripheral Venous Blood Culture - Final NO GROWTH AFTER 5 DAYS INCUBATION 03/21/18 16:25 Blood - Peripheral Venous Blood Culture - Final NO GROWTH AFTER 5 DAYS INCUBATION 03/21/18 21:00 Urine - Urine - Catheterized Urine Culture - Final Yeast Like Organism 02/17/18 03:00 Blood - Peripheral Venous Blood Culture - Final NO GROWTH AFTER 5 DAYS INCUBATION 02/17/18 03:00 Blood - Peripheral Venous Blood Culture - Final NO GROWTH AFTER 5 DAYS INCUBATION 02/17/18 10:40 Sputum - Endotrachea Suction/Ventilator Gram Stain - Final 02/17/18 10:40 Sputum - Endotrachea Suction/Ventilator Sputum Culture - Final Pseudomonas Aeruginosa Pseudo Fluorescens/[place] 02/16/18 23:40 Urine - Urine Clean Catch Urine Culture - Final NO GROWTH OBTAINED IMAGING: - CXR (02/16): Interval airspace disease/pneumonia in the right lower lung with a small right pleural effusion. Persistent left lung base consolidation and small left pleural effusion. No pneumothorax is identified. - CXR (02/17): Since 02/16/2018, the bibasilar pulmonary and pleural changes have diminished. The remainder the study is unchanged. - Abdomen XRay (02/21): Possible sigmoid volvulus. Further imaging with CT suggested. Patient's nurse / Jerica on [address] [place] [address] notified of findings on 02/21/2018 at 1328 hours. - Abdomen XRay (02/21): There is no evidence of small bowel obstruction. Interval significant decrease in the degree of previously visualized air distention of the sigmoid colon. Interval decrease in the amount of fecal residue in the colon that remains moderate without evidence of impaction - CT Abdomen Pelvis (02/23): No definite CT evidence of sigmoid volvulus. In comparison to a prior CT study of 01/31/2018 note is made of almost complete interval resolution of a small amount of free fluid within the abdomen and pelvis. There is also probable improved concentric subcutaneous edema along the abdomen and pelvis. Interval resolution of a right pleural effusion is seen. Improved left pleural effusion is noted which currently appears small in size. 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 Possible nonobstructing 2 mm left renal calculus as on the prior study. stable 1.5 cm right adrenal nodule probably representing an adenoma. - CXR (02/25): No significant change. - CXR (02/26): Since the prior study of 02/25/2018, again noted is the elevated right hemidiaphragm. The right base appears slightly better aerated. There is still some increased density at the left base. There is a sclerotic knob and evidence of spinal fusion. Correlation recommended. - CXR (02/27): Since 02/26/2018, the patient is more rotated to the right. Again noted is the lower cervical spine and upper thoracic spine fusion. The left lung is clear. The right lung shows some patchy infiltrate and atelectasis with some right base fluid. There is a prominent mediastinum. Follow-up recommended - Abdomen XRay (02/27): Decreased sigmoid air distention. No free air. If symptoms persist, further imaging with a CT scan may be of help. - CT Abdomen Pelvis (02/27): No evidence of bowel obstruction. Interval decreased rectal wall thickening may be attributed to improving infectious or inflammatory proctitis. Unchanged presacral fat stranding/fluid. Incompletely imaged bilateral pleural effusions with atelectasis in the lung bases. Superimposed pneumonia cannot be excluded. Please correlate clinically and with dedicated imaging of the chest. Small volume of right upper quadrant and right lower quadrant free fluid/ascites has increased since 02/23/2018 CT. Appropriately positioned Christopher catheter balloon. Moderate distention of the urinary bladder - please correlate for functioning status of this Christopher catheter. Iatrogenic gas within the urinary bladder to be secondary to recent Christopher catheter placement/manipulation. Please refer to the report above for additional findings. - CXR (03/02): No significant change - CXR (03/03): No significant change - Abdomen XRay (03/05): Imaging reveals distended loops of bowel with degenerative changes and left hip replacement. There is hand artifact by the left flank. Free air is not seen. The abdomen has a similar gas pattern seen in the bilingual inside sales representative for the CT scan dated 02/27/2018. Please see that report. If symptoms persist or get worse, then further imaging with a repeat CT scan may be of help. - Abdomen XRay (03/10): Imaging reveals contrast injected into a G-tube which fills stomach and duodenum. This is a functional G-tube with tip in gastric body. - Abdomen XRay (03/10): A limited view does not show contrast in the tubing. There is motion artifact with contrast in the stomach and sweep. There is contrast in more distal small bowel loops from prior studies. There is some motion artifact. The bibasilar changes. There is a left hip replacement. Correlation recommended. - Abdomen XRay (03/10): Functional PEG tube with tip in stomach. No sign of obstruction or leak. - Duplex (03/12): No evidence of deep venous thrombosis. - CXR (03/21): No acute pathology. No significant change since prior study. - Upper GI Series (03/24): Functional G-tube with filling of stomach. In the better way to study this is injecting under fluoroscopy. HOSPITAL COURSE: Date of Admission:02/17/18 Date of Discharge: 03/25/18 Prehospital course as per Dr. Robert Merlos 87M w/ pmh of traumatic fall (s/p neck (C4,5, and 6)/back surgery, tracheotomy placement now ventilator dependent, and PEG tube placement), frequent pneumonia , emphysema, A-fib, CHF, DM, dementia, renal failure, nonverbal TBI, paraplegia , and legal blindness and deafness, who presents to the emergency department via EMS from [facility] with 3 days of hypotension. As per patients son , his blood pressure has been decreasing over the past few days. He reports that at baseline, his systolic is between 110-119 in the mornings and between 100-109 at night. Pt has failed 5 weaning trials in the last few days, and it was noticed that there was blood around the tracheostomy site when suctioning. Pt' son denies recent fevers, chills, chest pain, emesis, hematemesis, melena, and hematochezia in pt. Of note, pt was recentely hospitalized between 01/21- 6. for proteus ESBL UTI for which he was treated with ertapenem x 14 days. He was also found to have bleeding around his trach site and ultimately received 1 unit of PRBCs and 2 doses of venofer. Hospital course Patient presented to the ED from [facility] with acute hypotension and was found to have acute on chronic anemia, KATERIN on CKD, hematuria, and new pulmonary consolidation. Cardiology, GI, ENT, Nephrology, Infectious Disease, Pulmonology, Hematology, General Surgery, Vascular Surgery and Urology were all consulted. His sputum cultures grew Pseudomonas and he completed a 15 day course of Zosyn and 7 day course of Bactrim. Additionally patient completed a course of IV steroids and was transitioned to PO. He was returned to his baseline ventilator settings. During his hospital stay, patient was transfused 11 units of pRBC's. Patient was transferred to the ICU due to Upper GI Bleed. An Upper endoscopy was performed and found a Dieulafoy bleed of the proximal stomach treated with a heater probe and epinephrine therapy. His GI Bleeding improved and he was transferred to the [facility] floors. A rectal tube was placed to help improve his abdominal distension. He had an episode of Acute transaminitis, similar to an episode during his previous admission, which improved. His PEG tube was dislodged and replaced. Patient became febrile during his stay and a urine culture was collected. Patients christopher catheter was changed, he completed a 5 day course of Ceftriaxone and his fevers improved. Patient was on tube feeds (Glucerna) throughout his stay. His hypernatremia resolved and his KATERIN improved to baseline. He was discharged to a SNF. Discharge Summary Reason For Visit: CHRONIC RESPIRATORY FAILURE, ANEMIA Condition: Stable - Instructions Diet, Activity, Other Instructions: You need to follow up with the following doctors who saw you in the hospital: Dr. Velez, Primary care Dr. Garza, Infectious disease Dr. Gonzalez, Surgery Dr. Holley, cardiology Dr. Ha, hematology/oncology Dr. Hutson, vascular surgery Dr. Lr, pulmonology Dr. Ayoub, nephrology You are being sent with a medication list. Tube feeds: glucerna 1.5 50 ml/hr with additional water 40 ml/hr Vent settings: Tidal Volume 450, Respiration rate 14, PEEP 5, FiO2 28 Blood work in 4-5 days: CBC (Complete blood count) BMP (Basic Metabolic panel) LFT (Liver function test) Referrals: Carolina Garza MD [Staff Physician] - 1 Week Augustus Velez MD [Primary Care Provider] - 1 Week Hollis Verdugo DO [Staff Physician] - 1 Week Matias Gonzalez MD [Staff Physician] - 1 Week Ghulam Holley MD [Staff Physician] - 1 Week Pam Ha MD [Staff Physician] - Fransisco Hutson MD [Staff Physician] - 1 Week Moises Lr MD [Staff Physician] - 1 Week Frank Ayoub MD [Staff Physician] - 1 Week Disposition: ASSISTED FACILITY - Home Medications Comprehensive Discharge Medication List: Ambulatory Orders Acetaminophen [Tylenol] 650 mg PO Q6H PRN 01/21/18 Docusate Sodium [Colace -] 100 mg GT ASDIR 01/21/18 Ferrous Sulfate [Feosol] 300 mg GT DAILY 01/21/18 Hypromellose 0.5% Opth Soln [Artificial Tears] 2 drop OU BID 01/21/18 L.acidoph,Paracasei, B.lactis [Probiotic] 1 each GT DAILY 01/21/18 Oxybutynin Chloride 5 mg GT BID 01/21/18 Levothyroxine [Synthroid -] 37.5 mcg PEG DAILY@0700 tablet 02/08/18 Amino Acids/Protein Hydrolys [Prosource No Carb Liquid Pkt] 30 ml PO DAILY@0800 #30 packet 03/19/18 Atorvastatin Ca [Lipitor] 10 mg GT HS #30 tablet 03/19/18 Collagenase Clostridium Hist. [Santyl -] 1 applic TP DAILY #20 tube 03/19/18 Finasteride [Proscar -] 5 mg PO DAILY #30 tablet 03/19/18 Insulin (Levemir) [Levemir Vial] 5 units SQ HS #120 units 03/19/18 Insulin Sliding Scale [Novolog Vial Sliding Scale -] 1 vial SQ ACHS #30 vial Metoprolol Tartrate [Lopressor -] 25 mg PO BID #60 tablet 03/19/18 Nystatin Powder [Nystop Powder -] 1 applic TP BID #60 applic 03/19/18 Pantoprazole Suspension [Protonix Packets For Oral Suspension -] 40 mg NGT DAILY #30 packet 03/19/18 Sertraline HCl [Zoloft -] 50 mg PO DAILY #0 tablet 03/19/18 - Discharge Referral Referred to [facility] No
== END 2018-03-25 16:57 | DRG 207 ==
LOC: JER 21:34 → JERBED 02-17 00:26 → J5S 02-17 19:58 → JICU 02-24 19:17 → J5S 03-02 19:37
PROVIDERS: ADMIT Internal Medicine; ATTEND Hospitalist
PROC: 5A1955Z Respiratory Ventilation, Greater than 96 Consecutive Hours (ICD-10-PCS; principal; 2018-02-17)
PROC: 30233N1 Transfusion of Nonautologous Red Blood Cells into Peripheral Vein, Percutaneous Approach (ICD-10-PCS; 2018-02-17)
PROC: 3E1H78Z Irrigation of Lower GI using Irrigating Substance, Via Natural or Artificial Opening (ICD-10-PCS; 2018-02-24)
PROC: 0W3P8ZZ Control Bleeding in Gastrointestinal Tract, Via Natural or Artificial Opening Endoscopic (ICD-10-PCS; 2018-02-26)
PROC: 3E0G8GC Introduction of Other Therapeutic Substance into Upper GI, Via Natural or Artificial Opening Endoscopic (ICD-10-PCS; 2018-02-26)
PROC: 0T2BX0Z Change Drainage Device in Bladder, External Approach (ICD-10-PCS; 2018-03-22)
DX: J96.20 Acute and chronic respiratory failure, unspecified whether with hypoxia or hypercapnia (principal); J69.0 Pneumonitis due to inhalation of food and vomit; K31.82 Dieulafoy lesion (hemorrhagic) of stomach and duodenum; A41.9 Sepsis, unspecified organism; I50.33 Acute on chronic diastolic (congestive) heart failure; N17.9 Acute kidney failure, unspecified; E46 Unspecified protein-calorie malnutrition; E87.0 Hyperosmolality and hypernatremia; D62 Acute posthemorrhagic anemia; N39.0 Urinary tract infection, site not specified; Z99.11 Dependence on respirator [ventilator] status; I13.0 Hypertensive heart and chronic kidney disease with heart failure and stage 1 through stage 4 chronic kidney disease, or unspecified chronic kidney disease; J95.01 Hemorrhage from tracheostomy stoma; D68.59 Other primary thrombophilia; I48.0 Paroxysmal atrial fibrillation; E11.22 Type 2 diabetes mellitus with diabetic chronic kidney disease; N18.3 Chronic kidney disease, stage 3 (moderate); E88.09 Other disorders of plasma-protein metabolism, not elsewhere classified; L89.152 Pressure ulcer of sacral region, stage 2; E11.65 Type 2 diabetes mellitus with hyperglycemia; D63.1 Anemia in chronic kidney disease; L89.151 Pressure ulcer of sacral region, stage 1; B96.5 Pseudomonas (aeruginosa) (mallei) (pseudomallei) as the cause of diseases classified elsewhere; E11.649 Type 2 diabetes mellitus with hypoglycemia without coma; F44.4 Conversion disorder with motor symptom or deficit; E87.6 Hypokalemia; E86.1 Hypovolemia; K59.00 Constipation, unspecified; Z93.1 Gastrostomy status; J43.9 Emphysema, unspecified; I34.0 Nonrheumatic mitral (valve) insufficiency; Z87.891 Personal history of nicotine dependence; F03.90 Unspecified dementia, unspecified severity, without behavioral disturbance, psychotic disturbance, mood disturbance, and anxiety; H54.8 Legal blindness, as defined in USA; Z79.4 Long term (current) use of insulin; H91.93 Unspecified hearing loss, bilateral; E86.0 Dehydration; R32 Unspecified urinary incontinence; F32.9 Major depressive disorder, single episode, unspecified; R00.1 Bradycardia, unspecified; Z74.01 Bed confinement status; M62.49 Contracture of muscle, multiple sites; E03.9 Hypothyroidism, unspecified; N40.0 Benign prostatic hyperplasia without lower urinary tract symptoms; Z96.642 Presence of left artificial hip joint; R31.9 Hematuria, unspecified; I95.9 Hypotension, unspecified; Z87.820 Personal history of traumatic brain injury; R21 Rash and other nonspecific skin eruption
CPT/HCPCS: 36415; 36430; 36511; 71045-TC-FY; 74018-TC-FY; 74176-TC; 74241-TC-FY; 80048; 80053; 81003; 81015; 82272; 82607; 82728; 82746; 82784; 82962; 83010; 83540; 83550; 83615; 83735; 84100; 84155; 84165; 84484; 85025; 85027; 85044; 85610; 85651; 85730; 86038; 86140; 86334; 86850; 86880; 86900; 86901; 86922; 87040; 87070; 87086; 87186; 87205; 93005; 93010; 93306-TC; 93971; 94002; 94003; 99285-25; J0885; J7030; J7620; P9038; P9058